=== PATIENT | male | born 1965 | race Caucasian/White ===

== ENCOUNTER 2022-05-25 13:54 | Observation (INO) | payer SELFPAY ==
--- OUTSIDE RECORDS SUMMARY | 2022-05-25 13:58 | XMS REPORT | Continuity of Care Document ---
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 = Glucose Lvl) 91 70-99 [facility]2017-08-09 19:57:00 Test Item Value Reference Range Interpretation Comments BUN (test code = BUN) 17 7-22 [facility]2017-08-09 19:57:00 Test Item Value Reference Range Interpretation Comments Potassium Lvl (test code = Potassium 4.1 3.5-5.1 Lvl) [facility]2017-08-09 19:57:00 Test Item Value Reference Range Interpretation Comments CO2 (test code = CO2) 27 24-32 [facility]2017-08-09 19:57:00 Test Item Value Reference Range Interpretation Comments Chloride Lvl (test code = Chloride Lvl) 102 95-109 [facility]2017-08-09 19:57:00 Test Item Value Reference Range Interpretation Comments Calcium Lvl (test code = Calcium Lvl) 8.5 8.5-10.5 [facility]2017-08-09 19:57:00 Test Item Value Reference Range Interpretation Comments AGAP (test code = AGAP) 13.1 10.0-20.0 [facility]SH6905[facility]50-12 09:43:00 Test Item Value Reference Range Interpretation Comments Segs-Bands # (test code = Segs-Bands #) 10.1 1.5-8.1 [facility]TpaehfiCNQPFAWCKP9036-26-59 09:43:00 Test Item Value Reference Range Interpretation Comments Lymphocytes (test code = Lymphocytes) 17.7 20.0-40.0 [facility] AustinXsylsdsBWVMAEZVKT1524-48-70 09:43:00 Test Item Value Reference Range Interpretation Comments Segs (test code = Segs) 71.6 45.0-75.0 [facility] AustinFilffsbKHAOBWPSJN7749-37-08 09:43:00 Test Item Value Reference Range Interpretation Comments MPV (test code = MPV) 8.4 7.4-10.4 [facility] AustinRlrbtjkNPZVLILMSV6511-18-75 09:43:00 Test Item Value Reference Range Interpretation Comments Platelet (test code = Platelet) 211 133-450 [facility] AustinCobiygiHUEOTHFWKL0883-83-51 09:43:00 Test Item Value Reference Range Interpretation Comments WBC (test code = WBC) 14.1 3.7-10.4 [facility] AustinSuusiriCKXIRGMRLF2708-09-97 09:43:00 Test Item Value Reference Range Interpretation Comments RBC (test code = RBC) 4.43 4.70-6.10 [facility] AustinPinmiqhIMOQBUVTHX2221-15-60 09:43:00 Test Item Value Reference Range Interpretation Comments Hgb (test code = Hgb) 13.3 14.0-18.0 [facility] AustinRhbdepeTTXMMIIRNQ5491-32-10 09:43:00 Test Item Value Reference Range Interpretation Comments MCV (test code = MCV) 90.8 80.0-94.0 [facility] AustinGrrywhpKFWZLMZHQY3255-70-95 09:43:00 Test Item Value Reference Range Interpretation Comments MCHC (test code = MCHC) 33.1 32.0-36.0 [facility] AustinDtyebcgSWFTDCZBRS4381-95-37 09:43:00 Test Item Value Reference Range Interpretation Comments MCH (test code = MCH) 30.0 pg 27.0-31.0 [facility] AustinQyascetGUTGHOXAIY2480-85-00 09:43:00 Test Item Value Reference Range Interpretation Comments RDW (test code = RDW) 14.6 11.5-14.5 [facility] AustinCknvsoyRANWSMTTUQ8438-49-40 09:43:00 Test Item Value Reference Range Interpretation Comments Hct (test code = Hct) 40.2 42.0-54.0 [facility]2017-08-09 09:43:00 Test Item Value Reference Range Interpretation Comments eGFR (test code = eGFR) 53 [facility]2017-08-09 09:43:00 Test Item Value Reference Range Interpretation Comments Glucose Lvl (test code = Glucose Lvl) 116 70-99 [facility]2017-08-09 09:43:00 Test Item Value Reference Range Interpretation Comments BUN (test code = BUN) 18 7-22 [facility]2017-08-09 09:43:00 Test Item Value Reference Range Interpretation Comments Creatinine Lvl (test code = Creatinine 1.50 0.50-1.40 Lvl) [facility]2017-08-09 09:43:00 Test Item Value Reference Range Interpretation Comments Potassium Lvl (test code = Potassium 3.9 3.5-5.1 Lvl) [facility]2017-08-09 09:43:00 Test Item Value Reference Range Interpretation Comments Sodium Lvl (test code = Sodium Lvl) 137 135-145 [facility]2017-08-09 09:43:00 Test Item Value Reference Range Interpretation Comments Calcium Lvl (test code = Calcium Lvl) 7.9 8.5-10.5 [facility]2017-08-09 09:43:00 Test Item Value Reference Range Interpretation Comments CO2 (test code = CO2) 24 24-32 [facility]2017-08-09 09:43:00 Test Item Value Reference Range Interpretation Comments Chloride Lvl (test code = Chloride Lvl) 104 95-109 [facility]2017-08-09 09:43:00 Test Item Value Reference Range Interpretation Comments AGAP (test code = AGAP) 12.9 10.0-20.0 [facility] Aust[id number] 09:43:00 Test Item Value Reference Range Interpretation Comments Basophils # (test code 0.1 See_Comment [Aut omated message] The = Basophils #) system which generated this result tra nsmitted reference range : <=0.2. The reference r mary was not used to int erpret this result as normal/abnormal . [facility] AustinBbilhayWMPJXFVEES5568-25-42 09:43:00 Test Item Value Reference Range Interpretation Comments Monocytes # (test code 1.2 See_Comment [Aut omated message] The = Monocytes #) system which generated this result tra nsmitted reference range : <=0.8. The reference r mary was not used to int erpret this result as normal/abnormal . [facility] AustinClxalcnYOYULWQOBK1335-72-18 09:43:00 Test Item Value Reference Range Interpretation Comments Eosinophils # (test code 0.2 See_Comment [A utomated message] The = Eosinophils #) system whic h generated this result tra nsmitted reference range : <=0.5. The reference r mary was not used to int erpret this result as normal/abnormal . [facility] AustinGwysdydNTLOXNTOLF9719-27-79 09:43:00 Test Item Value Reference Range Interpretation Comments Lymphocytes # (test code = Lymphocytes 2.5 1.0-5.5 #) [facility] AustinJvjosnaGQIGSLGTXM8294-71-01 09:43:00 Test Item Value Reference Range Interpretation Comments Monocytes (test code = Monocytes) 8.7 2.0-12.0 [facility] AustinTngrrwsJDQDGLREIP5138-88-29 09:43:00 Test Item Value Reference Range Interpretation Comments Eosinophils (test code = 1.6 See_Comment [A utomated message] The Eosinophils) system which ge nerated this result tra nsmitted reference range : <=4.0. The reference r mary was not used to int erpret this result as normal/abnormal . [facility] AustinNvveuscGTXXXWGMRT7103-06-23 09:43:00 Test Item Value Reference Range Interpretation Comments Basophils (test code = 0.4 See_Comment [Aut omated message] The Basophils) system which ge nerated this result tra nsmitted reference range : <=1.0. The reference r mary was not used to int erpret this result as normal/abnormal . [facility]
[2022-05-25 14:14] LABS: Absolute Lymphocytes (CBC) 1.3 K/uL (0.7-4.9); Lymphocytes % 7.4 % (15.3-44.8); MPV 8.3 fL (7.6-11.3); RBC Red Blood Cell Count 5.98 M/uL (4.33-5.43)
[2022-05-25 14:32] LABS: Albumin 4.6 g/dL (3.4-5.0); Bilirubin Total 1.1 mg/dL (0.2-1.0); Magnesium 2.1 mg/dL (1.6-2.4); Potassium 3.9 mmol/L (3.5-5.1); Protein, Total 8.8 g/dL (6.4-8.2); Troponin High Sensitivity 32.1 pg/mL (<58.9)
--- NOTE | 2022-05-25 14:47 | RAD REPORT ---
EXAM DESCRIPTION: RAD - Chest Single View - 05/25/2022 2:35 pm CLINICAL HISTORY: CHEST PAIN Chest pain. COMPARISON: No comparisons FINDINGS: Portable technique limits examination quality. Mild pulmonary edema. The heart is mildly prominent size. No displaced fractures. IMPRESSION: Mild CHF.
--- NOTE | 2022-05-25 15:05 | ER ---
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 Coronavirus screen: At this time, the client does not indicate any symptoms associated with coronavirus-19. Ebola Screen: No symptoms or risks identified at this time. Initial Sepsis Screen: Does the patient meet any 2 criteria? No. Patient's initial sepsis screen is negative. Does the patient have a suspected source of infection? No. Patient's initial sepsis screen is negative. Risk Assessment: Do you want to hurt yourself or someone else? Patient reports no desire to harm self or others. Onset of symptoms was May 25, 2022 at 01:00. 14:06 Method Of Arrival: Ambulatory [facility] 14:06 Acuity: AJ 2 jl7 Historical: - Allergies: 14:08 No Known Allergies; jl7 - Home Meds: 14:08 None [Active]; jl7 - PMHx: 14:08 Cerebrovascular accident; Leaky aorta; jl7 - PSHx: 14:08 knee-Right; jl7 - Immunization history:: Client reports having NOT received the Covid vaccine. - Social history:: Smoking status: Patient denies any tobacco usage or history of. Screenin:10 [facility] ED Fall Risk Assessment (Adult) History of falling in the last 3 months, kc6 including since admission No falls in past 3 months (0 pts) Confusion or Disorientation No (0 pts) Intoxicated or Sedated No (0 pts) Impaired Gait No (0 pts) Mobility Assist Device Used No (0 pt) Altered Elimination No (0 pt) Score/Fall Risk Level 0 - 2 = Low Risk. Abuse screen: Denies threats or abuse. Denies injuries from another. Nutritional screening: On. Tuberculosis screening: No symptoms or risk factors identified. 14:43 Fall Risk No fall in past 12 months (0 pts). ld1 Assessment: 14:43 Reassessment: Patient appears in no apparent distress at this time. See triage ld1 assessment. General: Appears in no apparent distress. comfortable, Behavior is calm, cooperative, appropriate for age. Pain: Complains of pain in left breast Pain does not radiate. Pain currently is 6 out of 10 on a pain scale. Quality of pain is described as throbbing, Pain began suddenly. Neuro: Level of Consciousness is awake, alert, obeys commands, Oriented to person, place, time, situation. Cardiovascular: Capillary refill < 3 seconds Patient's skin is warm and dry. Rhythm is sinus tachycardia. Respiratory: Airway is patent Respiratory effort is even, unlabored. GI: Abdomen is flat, non-distended. : No signs and/or symptoms were reported regarding the genitourinary system. EENT: No signs and/or symptoms were reported regarding the EENT system. Derm: No signs and/or symptoms reported regarding the dermatologic system. Musculoskeletal: No signs and/or symptoms reported regarding the musculoskeletal system. 16:00 Reassessment: Patient appears in no apparent distress at this time. Patient and/or ld1 family updated on plan of care and expected duration. Pain level reassessed. Patient is alert, oriented x 3, equal unlabored respirations, skin warm/dry/pink. Patient states symptoms have not improved. 18:22 Reassessment: Patient appears in no apparent distress at this time. Patient and/or ld1 family updated on plan of care and expected duration. Pain level reassessed. Patient is alert, oriented x 3, equal unlabored respirations, skin warm/dry/pink. 19:16 Reassessment: Patient appears in no apparent distress at this time. Patient and/or jb4 family updated on plan of care and expected duration. Pain level reassessed. Patient is alert, oriented x 3, equal unlabored respirations, skin warm/dry/pink. Vital Signs: 14:06 BP 207 / 93; Pulse 120; Resp 19; Temp 98.9(O); Pulse Ox 99% on R/A; Weight 102.06 kg; jl7 Height 5 ft. 7 in. (170.18 cm); Pain 3/10; 14:10 BP 178 / 98; Pulse 104; Resp 28 S; Pulse Ox 100% on R/A; kc6 14:43 BP 173 / 79; Pulse 104; Resp 18; Pulse Ox 100% on R/A; Pain 6/10; ld1 16:20 BP 165 / 92; Pulse 111; Resp 22; Pulse Ox 94% on R/A; ld1 18:22 BP 154 / 79; Pulse 101; Resp 18; Pulse Ox 96% on R/A; ld1 19:15 BP 148 / 79; Pulse 98; Resp 19; Pulse Ox 97% on R/A; jb4 14:06 Body Mass Index 35.24 (102.06 kg, 170.18 cm) jl7 ED Course: 13:54 Patient arrived in ED. rg4 13:56 Jenny[facility] Daley [facility]C [facility] kb 13:56 Elliot Connors DO is Attending Physician. kb 14:08 Triage completed. jl7 14:08 Initial lab(s) drawn, by me, sent to lab. EKG done, by ED staff, reviewed by Jennyfer BRAND. Inserted saline lock: 20 gauge in right antecubital area, using aseptic technique. Blood collected. 14:08 Arm band placed on right wrist. jl7 14:12 Patient has correct armband on for positive identification. Placed in gown. Bed in low kc6 position. Call light in reach. Side rails up X2. Client placed on continuous cardiac and pulse oximetry monitoring. NIBP monitoring applied. athletic monitor on. 14:37 XRAY Chest (1 view) In Process Unspecified. EDMS 14:43 Micaela Nichols, RN is Primary Nurse. ld1 14:43 No provider procedures requiring assistance completed. ld1 15:04 Ced Harvey MD is Hospitalizing Provider. kb 15:32 SARS RAPID Sent. ld1 Administered Medications: 15:37 Drug: morphine 4 mg Route: IVP; Infused Over: 4 mins; Site: right antecubital; ld1 15:37 Drug: Zofran (Ondansetron) 4 mg Route: IVP; Site: right antecubital; ld1 15:37 Drug: Lasix (furosemide) 20 mg Route: IVP; Site: right antecubital; ld1 Medication: 14:12 VIS not applicable for this client. kc6 Outcome: 15:05 Decision to Hospitalize by Provider. kb 19:50 Patient left the ED. jb4 Signatures: Dispatcher [employer] EDMS Jennyfer Daley FNP-C [facility]-CkLashon Lopez rg4 Melo Pealez, RN RN jb4 Alberto Theodore, RN RN jl7 Micaela Nichols RN RN ld1 Robina Hinson RN RN kc6 Corrections: (The following items were deleted from the chart) 14:10 14:08 PMHx: Myocardial infarction; ricki7 jl7
--- NOTE | 2022-05-25 15:06 | EDPHYS ---
Physician Documentation [facility] Name: Kyree Freeman Age: 56 yrs Sex: Male : 1965 Arrival Date: 05/25/2022 Time: 13:54 Bed 8 Private MD: ED Physician Elliot Connors HPI: 05/25 14:21 This 56 yrs old Male presents to ER via Ambulatory with complaints of Chest Pain. kb 14:21 The patient or guardian reports chest pain that is located primarily in the anterior kb chest wall, left. Onset: this morning, at 01:00. The pain does not radiate. Associated signs and symptoms: Pertinent positives: shortness of breath. The chest pain is described as aching. Duration: The patient or guardian reports a single episode, that is still ongoing. Modifying factors: The symptoms are alleviated by nothing. the symptoms are aggravated by nothing. Severity of pain: At its worst the pain was moderate in the emergency department the pain is unchanged. The patient has not experienced similar symptoms in the past. The patient has not recently seen a physician. Pt reports left chest pain behind left breast that started at 0100. states the pain is better, but persists. Reports pain is worse with deep inspiration. States he feels short of breath, but only because he can't take a deep breath without having pain. Historical: - Allergies: 14:08 No Known Allergies; jl7 - Home Meds: 14:08 None [Active]; jl7 - PMHx: 14:08 Cerebrovascular accident; Leaky aorta; jl7 - PSHx: 14:08 knee-Right; jl7 - Immunization history:: Client reports having NOT received the Covid vaccine. - Social history:: Smoking status: Patient denies any tobacco usage or history of. ROS: 14:20 Constitutional: Negative for fever, chills, and weight loss. kb 14:20 Cardiovascular: Positive for chest pain, Negative for edema, orthopnea, palpitations, paroxysmal nocturnal dyspnea. 14:20 Respiratory: Positive for shortness of breath. 14:20 All other systems are negative. Exam: 14:20 Constitutional: This is a well developed, well nourished patient who is awake, alert, kb and in no acute distress. Head/Face: Normocephalic, atraumatic. ENT: Moist Mucous membranes Cardiovascular: Regular rate and rhythm with a normal S1 and S2. No gallops, murmurs, or rubs. No pulse deficits. Respiratory: Respirations even and unlabored. No increased work of breathing. Talking in full sentences Abdomen/GI: Soft, non-tender. No distention Skin: Warm, dry with normal turgor. Normal color. MS/ Extremity: Pulses equal, no cyanosis. Neurovascular intact. Full, normal range of motion. Neuro: Awake and alert, GCS 15, oriented to person, place, time, and situation. Moves all extremities. Normal gait. Psych: Awake, alert, with orientation to person, place and time. Behavior, mood, and affect are within normal limits. 14:20 Chest/axilla: Inspection: normal, Palpation: tenderness, that is mild, of the left breast, that partially reproduces the patient's complaints. 14:20 ECG was reviewed by the Attending Physician. Vital Signs: 14:06 BP 207 / 93; Pulse 120; Resp 19; Temp 98.9(O); Pulse Ox 99% on R/A; Weight 102.06 kg; jl7 Height 5 ft. 7 in. (170.18 cm); Pain 3/10; 14:10 BP 178 / 98; Pulse 104; Resp 28 S; Pulse Ox 100% on R/A; kc6 14:43 BP 173 / 79; Pulse 104; Resp 18; Pulse Ox 100% on R/A; Pain 6/10; ld1 16:20 BP 165 / 92; Pulse 111; Resp 22; Pulse Ox 94% on R/A; ld1 18:22 BP 154 / 79; Pulse 101; Resp 18; Pulse Ox 96% on R/A; ld1 19:15 BP 148 / 79; Pulse 98; Resp 19; Pulse Ox 97% on R/A; jb4 14:06 Body Mass Index 35.24 (102.06 kg, 170.18 cm) jl7 MDM: 13:56 Patient medically screened. kb 14:21 Data reviewed: vital signs, nurses notes. Data interpreted: Pulse oximetry: on room air kb is 100 %. Interpretation: normal. 15:04 Counseling: I had a detailed discussion with the patient and/or guardian regarding: the kb historical points, exam findings, and any diagnostic results supporting the discharge/admit diagnosis, lab results, radiology results, the need for further work-up and treatment in the hospital. ED course: HEART score 3. Yesenia accepts pt for admission under Dr Harvey. 05/25 14:00 Order name: CBC with Diff; Complete Time: 14:22 kb 05/25 14:00 Order name: D-Dimer; Complete Time: 14:22 kb 05/25 14:00 Order name: Magnesium; Complete Time: 14:33 kb 05/25 14:00 Order name: NT PRO-BNP; Complete Time: 14:33 kb 05/25 14:00 Order name: Troponin HS; Complete Time: 14:33 kb 05/25 14:00 Order name: CMP; Complete Time: 14:33 kb 05/25 14:00 Order name: XRAY Chest (1 view); Complete Time: 14:51 kb 05/25 15:20 Order name: SARS RAPID ld1 05/25 19:11 Order name: Hemoglobin A1c EDMS 05/25 19:13 Order name: Phosphorus EDMS 05/25 19:13 Order name: Lipid Profile EDMS 05/25 19:13 Order name: T4 Free EDMS 05/25 19:13 Order name: Magnesium EDMS 05/25 19:13 Order name: Thyroid Stimulating Hormone EDMS 05/25 14:00 Order name: EKG; Complete Time: 14:01 kb 05/25 14:00 Order name: Cardiac monitoring; Complete Time: 14:05 kb 05/25 14:00 Order name: EKG - Nurse/Tech; Complete Time: 14:05 kb 05/25 14:00 Order name: IV Saline Lock; Complete Time: 14:05 kb 05/25 14:00 Order name: Labs collected and sent; Complete Time: 14:05 kb 05/25 14:00 Order name: O2 Per Protocol; Complete Time: 14:05 kb 05/25 14:00 Order name: O2 Sat Monitoring; Complete Time: 14:05 kb EC:20 Rate is 109 beats/min. Rhythm is regular. QRS [place] is Normal. MT interval is normal at kb 136 msec. QRS interval is normal at 90 msec. QT interval is normal at 428 msec. Administered Medications: 15:37 Drug: morphine 4 mg Route: IVP; Infused Over: 4 mins; Site: right antecubital; ld1 15:37 Drug: Zofran (Ondansetron) 4 mg Route: IVP; Site: right antecubital; ld1 15:37 Drug: Lasix (furosemide) 20 mg Route: IVP; Site: right antecubital; ld1 Disposition: 14:00 PA/TAG PRESS OPERATOR's history reviewed, patient interviewed, and examined. HPI: 56-year-old male ms3 presents for left-sided chest pain that began at 1 AM. My personal exam of patient reveals: On exam patient is alert and oriented x4, in no apparent distress, nontoxic-appearing. Heart rate is tachycardic and regular. Lungs are clear to auscultation bilaterally. Abdomen is nontender to palpation. Patient's left chest is sore to palpation, does not recreate patient's pain. Patient skin is without diaphoresis or rashes. I agree with assessment and care plan and confirm the diagnosis (es) above. 16:18 Co-signature as Attending Physician, Elliot Connors DO. ms3 Disposition Summary: 05/25/22 15:05 Hospitalization Ordered Hospitalization Status: Observation kb Provider: Ced Harvey Location: Telemetry/MedSurg (observation) kb Condition: Stable kb Problem: new kb Symptoms: are unchanged kb Bed/Room Type: Standard Room Assignment: 230(05/25/22 18:31) dw Diagnosis - Unspecified combined systolic (congestive) and diastolic (congestive) heart failure kb - new onset - Chest pain, unspecified kb Forms: - Medication Reconciliation Form kb - SBAR form kb Signatures: Dispatcher [employer] Jennyfer Holman FNP-Clemente SOUZA-Mariely Mirza RN RN dw Leal, Jahala RN Elliot Osorio DO DO ms3 Micaela Nichols RN RN ld1 Corrections: (The following items were deleted from the chart) 14:10 14:08 PMHx: Myocardial infarction; jl7 jl7 18:31 15:05 kb dw
[2022-05-25] MEDS ORDERED: FUROSEMIDE 20 MG/ 2ML VIAL ONE (15:30)
[2022-05-25] MEDS ORDERED: MORPHINE 4 MG/ML SYR ONE (15:31)
[2022-05-25] MEDS ORDERED: ONDANSETRON 4 MG/2 ML VIAL ONE (15:31)
[2022-05-25 15:53] LABS: SARS-CoV-2 Antigen Rapid Res Negative (Negative)
[2022-05-25] MEDS ORDERED: ACETAMINOPHEN 325 MG TABLET PO PRN (18:07)
[2022-05-25] MEDS ORDERED: ONDANSETRON 4 MG/2 ML VIAL IV PRN (18:15)
--- NOTE | 2022-05-25 18:17 | P.HP ---
Patient History Date of Service: 05/25/22 Physical Examination - Studies Laboratory Data (last 24 hrs) 05/25/22 14:05: Sodium 134 L, Potassium 3.9, BUN 11, Creatinine 1.38 H, Glucose 113 H, Magnesium 2.1, Total Bilirubin 1.1 H, AST 11 L, ALT 22, Alkaline Phosphatase 99 05/25/22 14:05: WBC 17.20 H, Hgb 17.5, Hct 52.0 H, Plt Count 269 Assessment and Plan - Advance Directives Does patient have a Living Will: No Does patient have a Durable POA for Healthcare: No
--- NOTE | 2022-05-25 18:23 | P.HP ---
Certification for Inpatient Patient admitted to: Observation With expected LOS: <2 Midnights Patient will require the following post-hospital care: None Practitioner: I am a practitioner with admitting privileges, knowledge of patient current condition, hospital course, and medical plan of care. Services: Services provided to patient in accordance with Admission requirements found in Title 42 Section 412.3 of the Code of Federal Regulations <Les Conte - Last Filed: 05/25/22 21:23> Patient History Date of Service: 05/25/22 Reason for admission: Chest pain History of Present Illness: Patient is a 56-year-old male with a past medical history significant for CVA, hypertension with right-sided weakness who presents with complaint of chest pain that woke him up from sleep this morning. Patient indicated that chest pain is located in the left chest wall. Patient rated pain as 10/10 in severity and described pain as pressure in quality. Patient indicated that chest pain radiates to his left arm and that chest pain has been constant. Patient denies any other signs or symptoms. Symptoms are aggravated or relieved by nothing. Patient decided to present to the hospital due to worsening symptoms. - Past Medical/Surgical History -: CVA -: Obesity -: Hypertension Past Surgical History: Reviewed- Non-Contributory - Family History Father -: Heart disease, Stroke Notes: CHF Mother Notes: lymphoma - Social History Smoking Status: Unknown if ever smoked Alcohol use: No CD- Drugs: No Caffeine use: Yes Place of Residence: Home <Les Conte - Last Filed: 05/25/22 21:23> Date of Service: 05/26/22 <Ced Harvey - Last Filed: 05/26/22 19:17> Allergies No Known Allergies Allergy (Unverified 05/25/22 20:08) Home Medications: NK [No Home Meds] 05/25/22 Review of Systems General: Unremarkable Eyes: Unremarkable ENT: Unremarkable Respiratory: Unremarkable Cardiovascular: Chest Pain Gastrointestinal: Unremarkable Genitourinary: Unremarkable Musculoskeletal: Arm Pain Integumentary: Unremarkable Neurological: Unremarkable Lymphatics: Unremarkable <Les Conte - Last Filed: 05/25/22 21:23> Physical Examination - Physical Exam General: Alert, In no apparent distress, Oriented x3, Cooperative HEENT: Atraumatic, PERRLA, Mucous membr. moist/pink, EOMI, Sclerae nonicteric Neck: Supple, 2+ carotid pulse no bruit, No LAD, Without JVD or thyroid abnormality Respiratory: Clear to auscultation bilaterally, Diminished Cardiovascular: No edema, Regular rate/rhythm, Normal S1 S2 Capillary refill: <2 Seconds Gastrointestinal: Normal bowel sounds, Non-distended, No tenderness Musculoskeletal: No clubbing, No swelling, No tenderness Integumentary: No rashes, No significant lesion, No tenderness/swelling Neurological: Normal speech, Normal tone, Normal affect Lymphatics: No axilla or inguinal lymphadenopathy - Studies Laboratory Data (last 24 hrs) 05/25/22 14:05: Sodium 134 L, Potassium 3.9, BUN 11, Creatinine 1.38 H, Glucose 113 H, Magnesium 2.1, Total Bilirubin 1.1 H, AST 11 L, ALT 22, Alkaline Phosphatase 99 05/25/22 14:05: WBC 17.20 H, Hgb 17.5, Hct 52.0 H, Plt Count 269 <Les Conte - Last Filed: 05/25/22 21:23> Assessment and Plan - Plan --Chest pain. To rule out ACS. Will trend troponin--negative so far. Echocardiogram pending to assess cardiac structures and functions. Telemetry to monitor for any significant arrhythmia period Cardiology consulted. Will await further recommendations. -- Suspected systolic or diastolic CHF. BNP elevated--1000. Echocardiogram pending to assess LV\valvular function and wall motion. Printing Press Operator Apprentice on board. Daily weight and strict I/O. Continue diuresis with Lasix. --Acute pain. We will manage pain with current pain medication regimen. --History of CVA with right-sided weakness. Continue aspirin. --Hypertension. Poorly controlled. Patient placed on low-dose beta-tanisha. We will continue to monitor blood pressure levels. --Obesity. Likely secondary to excess calories intake. Patient counseled on weight reduction, diet and exercise therapy. -- CKD 2. Baseline functions unknown. We will continue to monitor renal functions. --DVT prophylaxis with heparin subQ. Discharge Plan: Home Plan to discharge in: 48 Hours - Advance Directives Does patient have a Living Will: No Does patient have a Durable POA for Healthcare: No - Code Status/Comfort Care Code Status Assessed: Yes Physician Review: Patient Assessed, Agree with Above Assessment and Plan Critical Care: No <Les Conte - Last Filed: 05/25/22 21:23> Physician Review: Patient Assessed, Agree with Above Assessment and Plan <Ced Harvey - Last Filed: 05/26/22 19:17>
[2022-05-25] MEDS ORDERED: ASPIRIN 81 MG CHEWABLE TABLET PO ONE (19:00)
[2022-05-25 19:12] LABS: Phosphorus 2.7 mg/dL (2.5-4.9); Thyroid Stimulating Hormone 0.626 uIU/mL (0.358-3.740)
[2022-05-25 20:08] VITALS: BMI 35.6
[2022-05-25 21:29] LABS: Specific Gravity 1.015 (1.005-1.030); Urine Bacteria <20 /HPF (<20); Urine Bilirubin NEGATIVE (Negative); Urine Blood 3+ (Negative); Urine Clarity Clear (Clear); Urine Color Yellow (Yellow); Urine Crystals Unidentified Few /HPF (None Seen); Urine Glucose NEGATIVE (Negative); Urine Mucus 3+ /HPF (None Seen); Urine Protein 1+ (Negative); Urine Urobilinogen Normal (Normal)
[2022-05-25] MEDS: HEPARIN 5000 UNIT/ML 1 ML VIAL SQ SCH (21:49)
[2022-05-25] MEDS: HYDROCODONE/APAP 5/325 MG TAB PO PRN (21:49)
[2022-05-26] MEDS: METOPROLOL TAR 25 MG TAB PO SCH ×2 (05:36→17:26)
[2022-05-26 06:23] LABS: Albumin 3.7 g/dL (3.4-5.0); Bilirubin Total 1.2 mg/dL (0.2-1.0); Potassium 3.6 mmol/L (3.5-5.1); Protein, Total 7.5 g/dL (6.4-8.2)
[2022-05-26 07:03] LABS: Absolute Lymphocytes (CBC) 2.9 K/uL (0.7-4.9); Hematocrit 47.6 % (39.6-49.0); Lymphocytes % 24.9 % (15.3-44.8); MCV 88.3 fL (80-100); MPV 8.6 fL (7.6-11.3); RBC Red Blood Cell Count 5.39 M/uL (4.33-5.43)
[2022-05-26] MEDS ORDERED: INFLUENZA VACCINE (for 6+ mo) 0.5 ML DOSE IMVAC ONE (08:00)
[2022-05-26] MEDS: HEPARIN 5000 UNIT/ML 1 ML VIAL SQ SCH ×2 (08:39→21:02)
[2022-05-26] MEDS: ASPIRIN 81 MG CHEWABLE TABLET PO SCH (08:39)
[2022-05-26] MEDS ORDERED: FUROSEMIDE 40 MG/4 ML VIAL IV SCH (09:00)
--- NOTE | 2022-05-26 14:00 | EKG ---
Test Date: 2022-05-25 Test Time: 14:02:29 Hand Spinner: IDALIA MEASUREMENT RESULTS: Intervals: Rate: 109 SD: 136 QRSD: 90 QT: 318 QTc: 428 [place] [employer]: P: 50 SD: 136 QRS: 26 T: 104 INTERPRETIVE STATEMENTS: Sinus tachycardia Possible Left atrial enlargement T wave abnormality, consider lateral ischemia Abnormal ECG No previous ECG available for comparison Electronically Signed On 05-26-22 13:59:23 LEAN COACH by Murtaza Barnhart
--- NOTE | 2022-05-26 14:36 | ECHO ---
HEIGHT: 5 ft 8 in WEIGHT: 234 lb 8 oz DATE OF STUDY: 05/26/[address]: Les Conte 2-DIMENSIONAL: YES M.MODE: YES DOPPLER: YES COLOR FLOW: YES TDS: NO PORTABLE: YES DEFINITY: NO BUBBLE STUDY: NO DIAGNOSIS: CHEST PAIN, ELEVATED BNP CARDIAC HISTORY: CATHERIZATION: NO SURGERY: NO PROSTHETIC VALVE: NO PACEMAKER: NO MEASUREMENTS (cm) DIASTOLIC (NORMALS) SYSTOLIC (NORMALS) IVSd 1.3 (0.6-1.2) LA Diam 3.1 (1.9-4.0) LVEF 55% LVIDd 2.4 (3.5-5.7) LVIDs 1.7 (2.0-3.5) %FS 27% LVPWd 1.4 (0.6-1.2) Ao Diam 3.1 (2.0-3.7) 2 DIMENSIONAL ASSESSMENT: RIGHT ATRIUM: NORMAL LEFT ATRIUM: NORMAL RIGHT VENTRICLE: NORMAL LEFT VENTRICLE: NORMAL TRICUSPID VALVE: MITRAL VALVE: NORMAL PULMONIC VALVE: AORTIC VALVE: CALCIFIED, NO PERICARDIAL EFFUSION: NONE AORTIC ROOT: NORMAL LEFT VENTRICULAR WALL MOTION: UNABLE TO EVALUATE DUE TO POOR WINDOWS. DOPPLER/COLOR FLOW: MILD AORTIC REGURGITATION. COMMENTS: 1. NORMAL LEFT VENTRICULAR EJECTION FRACTION 55-60%. 2. POOR WINDOWS. 3. CALCIFIED AORTIC VALVE WITH MILD AORTIC REGURGITATION WITH NO AORTIC STENOSIS. 4. TRACE TRICUSPID REGURGITATION. TECHNOLOGIST: Stewart MIDDLETON
--- NOTE | 2022-05-26 19:35 | P.PN ---
Subjective Date of Service: 05/26/22 Chief Complaint: Chest pain No acute events overnight. He reports persistent shortness of breath. He reports orthopnea and lower extremity edema. He denies any chest pain or palpitations. Review of Systems 10-point ROS is otherwise unremarkable Respiratory: Shortness of Breath Cardiovascular: Orthopnea, Edema Physical Examination - Vital Signs Temperature: 98.1 F Blood Pressure: 150/69 Pulse: 78 Respirations: 16 Pulse Ox (%): 95 - Physical Exam General: Alert, In no apparent distress, Oriented x3 HEENT: Atraumatic, Mucous membr. moist/pink, EOMI, Sclerae nonicteric Neck: JVD distended (minimally) Respiratory: Crackles/rales (faint bibasilar) Cardiovascular: Normal pulses, Regular rate/rhythm, No gallops, No rubs, No murmurs, Edema (1+ BLE) Gastrointestinal: Normal bowel sounds, Soft and benign, Non-distended, No tenderness, No rebound, No guarding Musculoskeletal: No clubbing Integumentary: No rashes Neurological: Normal speech, Cranial nerves 3-12 intact, Normal affect Assessment And Plan - Plan # Acute on Chronic Decompensated Diastolic Congestive Heart Failure with Preserved Ejection Fraction - Consult Cardiology and spoke with Dr. Barnhart - recommendations appreciated - Recommended an additional day of IV furosemide - NT-Pro BNP = 1000 - Transthoracic echocardiogram = "1. normal left ventricular ejection fraction 55-60%. 2. poor windows. 3. calcified aortic valve with mild aortic regurgitation with no aortic stenosis. 4. trace tricuspid regurgitation" - Continue home metoprolol - Daily weights - Strict I/O - Cardiac diet, 1.5 L fluid restriction, 2 g Na restriction # Hypertensive Urgency - Presenting blood pressure was 207/93, which has now improved - Continue home metoprolol + PRN hydralazine # Chest Pain, atypical # History of Cerebrovascular Accident with Residual Right-Sided Deficits - Evaluation thus far: - EKG: without reported STEMI criteria, trend - Serial troponin: 32.1 -> 31.3 -> 42.0 - Transthoracic echocardiogram = "1. normal left ventricular ejection fractio n 55-60%. 2. poor windows. 3. calcified aortic valve with mild aortic regurgitation with no aortic stenosis. 4. trace tricuspid regurgitation" - Chest x-ray = "mild CHF" - D-dimer = 392 - Management plan: - Consult Cardiology and spoke with Dr. Barnhart - recommendations appreciated - Plan for outpatient cardiac stress test - Continue aspirin, metoprolol - If cardiac ischemia confirmed, plan to start MARIANN-inhibitor/ARB and statin as tolerated # Obesity - BMI 35.7 kg/m2 - Lifestyle modifications Ced Harvey M.D.
--- NOTE | 2022-05-26 19:38 | CON ---
Date of Consultation: 05/26/2022 Reason For Consultation: Chest pain. History Of Present Illness: This 56-year-old male with history of CVA, hypertension, and some mild r ight-sided weakness presented with chest pain. It is retrosternal and sharp in nature, was at rest a nd it went up to his left arm and completely resolved and he had no further symptoms. No known histo ry of cardiac disease. Past Medical History: As outlined above in HPI. Medications: Refer to reconciliation sheet for detailed list. Allergies: NO KNOWN DRUG ALLERGIES. Family History: No premature coronary artery disease or cancer. Social History: Does not smoke or drink. Does not use any drugs. Review of Systems: All systems reviewed and they were negative except as mentioned in HPI. Physical Examination: Vital Signs: Reviewed. Head and Neck: Pupils are equal and reactive to light. Intact eye movements. No JVD. No cervical lymphadenopathy. Neck is supple. Thyroid is not enlarged. Lungs: Clear to auscultation bilaterally. No rhonchi, wheezing, or crackles. No accessory muscle u se. Heart: Regular rate and rhythm. No extra sounds. Abdomen: Soft, nontender. Bowel sounds positive. No organomegaly. No masses or hernia. No rigidi ty or rebound. Extremities: No edema, clubbing, or cyanosis. Intact pulses. Skin: No rashes. Neuro: Alert, awake, and oriented x3. No acute focal deficits appreciated. Investigations: BUN 17, creatinine 1.32. NT-proBNP was 1000 on admission. Troponins are negative. Assessment/recommendations: 1.Chest pain. Cardiac enzymes are negative. Echo was normal with no wall motion abnormalities. Fr om Cardiology standpoint, patient can be released to follow up as an outpatient. Plan for a stress t est. 2.Elevated NT-proBNP due to mild fluid retention and possible mild diastolic dysfunction. Switch hi m to oral Lasix, anticipation for discharge tomorrow. Cardiology will sign off and plan to see the p atient on outpatient basis. SR/MODL Voice ID: [id number] Report ID: [id number]
[2022-05-26] MEDS: HYDROCODONE/APAP 5/325 MG TAB PO PRN (21:03)
[2022-05-27] MEDS: METOPROLOL TAR 25 MG TAB PO SCH (05:32)
[2022-05-27 06:19] LABS: Potassium 4.2 mmol/L (3.5-5.1)
[2022-05-27] MEDS: ASPIRIN 81 MG CHEWABLE TABLET PO SCH (08:13)
[2022-05-27] MEDS: HEPARIN 5000 UNIT/ML 1 ML VIAL SQ SCH (08:13)
[2022-05-27 08:18] VITALS: BP 121/62
--- NOTE | 2022-05-27 08:23 | P.DS ---
Admission Date: 05/25/22 Discharge Date: 05/27/22 Disposition: ROUTINE DISCHARGE Discharge Condition: GOOD Reason for Admission: Chest pain Consultations: 1. Cardiology Hospital Course: DIAGNOSES: # Acute on Chronic Decompensated Diastolic Congestive Heart Failure with Preserved Ejection Fraction # Hypertensive Urgency # Chest Pain, atypical # History of Cerebrovascular Accident with Residual Right-Sided Deficits # Obesity - BMI 35.7 kg/m2 HOSPITAL COURSE: Mr. Kyree Freeman is a pleasant 56 year old male with a past medical history significant for chronic diastolic congestive heart failure, hypertension, and prior cerebrovascular accident with residual right-sided deficits who was admitted to the [facility] on 05/25/2022 for shortness of breath. He was admitted to the Medicine service. Upon further evaluation, he was found to have an acute on chronic decompensated diastolic congestive heart failure exacerbation. Cardiology was consulted and he was evaluated by Dr. Barnhart. He was treated with IV diuretics, and had significant improvement of his symptoms. Dr. Barnhart has cleared him for discharge home with an outpatient cardiac stress test. On 05/27/2022, he was seen on morning rounds and deemed medically stable for discharge. He was discharged with instructions to schedule follow-up appointments with his PCP and with Cardiology (Dr. Barnhart). He was provided prescriptions for furosemide and metoprolol. He was given the opportunity to ask questions and reported no further questions. Furthermore, all questions were answered to the best of my ability. A copy of this discharge summary will be sent to the above providers to facilitate continuity of care. Today, I personally spent 25 minutes on his case, of which greater than 50% of the time was spent in patient education, counseling, and coordination of care as described above. - Physical Exam General: Alert, In no apparent distress, Oriented x3 HEENT: Atraumatic, Mucous membr. moist/pink, EOMI, Sclerae nonicteric Neck: JVD not distended Respiratory: Clear to auscultation bilaterally, without wheezes, rhonchi, or rales Cardiovascular: Normal pulses, Regular rate/rhythm, No gallops, No rubs, No murmurs, Edema (trace BLE) Gastrointestinal: Normal bowel sounds, Soft and benign, Non-distended, No tenderness, No rebound, No guarding Musculoskeletal: No clubbing Integumentary: No rashes Neurological: Normal speech, Cranial nerves 3-12 intact, Normal affect Vital Signs/Physical Exam: Temp Pulse Resp BP Pulse Ox 97.0 F 63 18 121/62 96 05/27/22 04:00 05/27/22 08:13 05/27/22 04:00 05/27/22 08:13 05/27/22 04:00 Laboratory Data at Discharge: WBC 11.50 K/uL (4.3-10.9) H 05/26/22 05:35 Hgb 15.8 g/dL (13.6-17.9) D 05/26/22 05:35 Hct 47.6 % (39.6-49.0) 05/26/22 05:35 Plt Count 195 K/uL (152-406) D 05/26/22 05:35 Sodium 133 mmol/L (136-145) L 05/27/22 05:31 Potassium 4.2 mmol/L (3.5-5.1) D 05/27/22 05:31 BUN 17 mg/dL (7-18) 05/27/22 05:31 Creatinine 1.27 mg/dL (0.70-1.30) 05/27/22 05:31 Glucose 92 mg/dL (74-106) 05/27/22 05:31 Phosphorus 2.7 mg/dL (2.5-4.9) 05/25/22 14:05 Magnesium 2.0 mg/dL (1.6-2.4) 05/25/22 14:05 Magnesium 2.1 mg/dL (1.6-2.4) 05/25/22 14:05 Total Bilirubin 1.2 mg/dL (0.2-1.0) H 05/26/22 05:35 AST 12 U/L (15-37) L 05/26/22 05:35 ALT 18 U/L (16-61) 05/26/22 05:35 Alkaline Phosphatase 75 U/L (45-117) D 05/26/22 05:35 Triglycerides 78 mg/dL (<150) 05/25/22 14:05 Cholesterol 164 mg/dL (<200) 05/25/22 14:05 HDL Cholesterol 50 mg/dL (40-60) 05/25/22 14:05 Cholesterol/HDL Ratio 3.28 05/25/22 14:05 Home Medications: Furosemide [Lasix] 40 mg PO DAILY #30 tab 05/27/22 RX: Aspirin Chewable [Aspirin Chewable*] 81 mg PO DAILY tab.chew 05/27/22 RX: Metoprolol Tartrate [Lopressor*] 12.5 mg PO BID 6AM 6PM #30 tab 05/27/22 New Medications: Furosemide [Lasix] 40 mg PO DAILY #30 tab RX: Metoprolol Tartrate [Lopressor*] 12.5 mg PO BID 6AM 6PM #30 tab Physician Discharge Instructions: 1. Please call and schedule a follow-up appointment with your PCP in 3-5 days 2. Please call and schedule a follow-up appointment with Cardiology (Dr. Barnhart) in 5-7 days - He will schedule you for a cardiac stress test at his clinic Diet: AHA Activity: Ad stanislaw Followup: NONE,NONE [Primary Care Provider] - Murtaza Barnhart MD [ACTIVE - CAN ADMIT] - Time spent managing pt's care (in minutes): 25
[2022-05-27 08:45] VITALS: TEMP 98.2
[2022-05-27] MEDS ORDERED: FUROSEMIDE 40 MG/4 ML VIAL IV SCH (09:00)
[2022-05-27 10:21] VITALS: O2SAT 98
== END 2022-05-27 10:32 | disposition home or self-care (01) ==
LOC: ER 13:54 → ERHOLD 18:06 → 2ND 19:27
PROVIDERS: ADMIT Internal Medicine; ATTEND Internal Medicine
DX: I50.33 Acute on chronic diastolic (congestive) heart failure (principal); I16.0 Hypertensive urgency; I11.9 Hypertensive heart disease without heart failure; R07.9 Chest pain, unspecified; R79.89 Other specified abnormal findings of blood chemistry; I10 Essential (primary) hypertension; R53.1 Weakness; E66.9 Obesity, unspecified; R31.29 Other microscopic hematuria; N18.2 Chronic kidney disease, stage 2 (mild); Z82.3 Family history of stroke; Z86.73 Personal history of transient ischemic attack (TIA), and cerebral infarction without residual deficits; Z68.35 Body mass index [BMI] 35.0-35.9, adult; Z20.822 Contact with and (suspected) exposure to COVID-19; Z23 Encounter for immunization
CPT/HCPCS: 36415; 71045; 80048; 80053; 80061; 81001; 83036; 83735; 83880; 84100; 84439; 84443; 84484; 85025; 85379; 87040; 87811; 93005; 93306; 96374; 96375; 99284; G0378; J1644; J1940; J2405

== ENCOUNTER 2022-11-03 15:42 | Emergency (ER) | payer OTHER, SELFPAY ==
--- NOTE | 2022-11-03 16:37 | RAD REPORT ---
EXAM DESCRIPTION: RADChest Single View11/03/2022 4:32 pm CLINICAL HISTORY: edema COMPARISON: Chest Single View dated 05/25/2022 TECHNIQUE: Portable AP view of the chest. FINDINGS: The lungs are clear. Mild left basilar atelectasis, stable. Persistent bilateral pleural thickening versus trace effusions. No pneumothorax or sizable effusion. The cardiomediastinal contour s are unchanged. Sequelae of prior median sternotomy again seen. . IMPRESSION: Persistent bilateral pleural thickening versus trace effusions. No other acute cardiopul monary process.
[2022-11-03 17:06] LABS: Absolute Lymphocytes (CBC) 1.7 K/uL (0.7-4.9); Hematocrit 39.4 % (39.6-49.0); Lymphocytes % 10.4 % (15.3-44.8); MCV 88.1 fL (80-100); MPV 7.9 fL (7.6-11.3); RBC Red Blood Cell Count 4.47 M/uL (4.33-5.43)
[2022-11-03 17:07] LABS: Protime INR 1.18
[2022-11-03 17:29] LABS: Troponin High Sensitivity 42.2 pg/mL (<58.9)
[2022-11-03 17:45] LABS: Magnesium 2.6 mg/dL (1.6-2.4); Potassium 4.2 mEq/L (3.5-5.1)
--- NOTE | 2022-11-03 17:55 | RAD REPORT ---
EXAM DESCRIPTION: US - Extrem Venous W Compress Bulmaro - 11/03/2022 5:30 pm CLINICAL HISTORY: Swelling COMPARISON: None. TECHNIQUE: Real-time sonographic evaluation of the bilateral lower extremity deep venous systems was performed. FINDINGS: Hypoechoic filling defects within a noncompressible tributary of the right popliteal vein. Normal compressibility, flow augmentation, phasic flow and spontaneous flow is identified in the rem ainder of the the left and right lower extremity deep venous systems. IMPRESSION: Deep venous thrombosis within a right popliteal vein tributary. Deep venous system throughout the remainder of the lower extremities is patent otherwise.
[2022-11-03] MEDS ORDERED: FUROSEMIDE 40 MG/4 ML VIAL ONE (18:27)
[2022-11-03] MEDS ORDERED: METOPROLOL TARTRATE 5 MG/5 ML INJ IV ONE ×3 (18:49→21:08)
[2022-11-03] MEDS ORDERED: METOPROLOL XL 50 MG TAB PO ONE (18:51)
--- NOTE | 2022-11-03 19:15 | EDPHYS ---
Physician Documentation [facility] Name: Kyree Freeman Age: 56 yrs Sex: Male : 1965 Arrival Date: 11/03/2022 Time: 15:42 Bed 20 Private MD: ED Physician Ramesh Montes HPI: 11/03 16:00 This 56 yrs old Male presents to ER via Ambulatory with complaints of Feet Swelling. cp 16:00 The patient presents with swelling. The complaints affect the right foot and left foot cp and left lower leg and right lower leg. Context: patient reports having aneurysm repair and heart valve surgery last Tuesday by DR Azar at [facility]. 16:00 Associated signs and symptoms: Pertinent positives: shortness of breath, Pertinent cp negatives fever, vomiting, warmth, chest pain. 16:00 Modifying factors: the symptoms are aggravated by standing, light activity. cp Historical: - Allergies: 21:10 No Known Allergies; kl - Home Meds: 15:53 Aspirin Oral [Active]; amlodipine 10 mg tablet [Active]; metoprolol tartrate 50 mg Oral mb9 tablet once [Active]; potassium chloride 10 mEq Oral Tablet, ER Particles/Crystals once [Active]; lisinopril 20 mg Oral tablet once [Active]; furosemide 20 mg Oral tablet once [Active]; - PMHx: 15:53 Cerebrovascular accident; Leaky aorta; mb9 - PSHx: 15:53 Knee-Right; Open heart surgery; mb9 - Immunization history:: Adult Immunizations up to date. - Social history:: Smoking status: Patient denies any tobacco usage or history of. ROS: 16:05 Constitutional: Negative for body aches, chills, fever, poor PO intake. cp 16:05 Cardiovascular: Positive for edema, Negative for chest pain, palpitations. cp 16:05 Respiratory: Positive for shortness of breath, on exertion. Negative for cough, wheezing. 16:05 Abdomen/GI: Negative for abdominal pain, vomiting, diarrhea, constipation. cp 16:05 Eyes: Negative for injury, pain, redness, and discharge. cp 16:05 ENT: Negative for drainage from ear(s), ear pain, sore throat, difficulty swallowing, difficulty handling secretions. 16:05 Back: Negative for pain at rest, pain with movement. cp 16:05 Skin: Negative for cellulitis, rash. 16:05 Neuro: Negative for altered mental status, dizziness, headache, numbness, weakness. 16:05 All other systems are negative. Exam: 16:10 Constitutional: The patient appears in no acute distress, alert, awake, cp non-diaphoretic, non-toxic, well developed, well nourished. 16:10 Head/Face: Normocephalic, atraumatic. cp 16:10 Eyes: Periorbital structures: appear normal, Conjunctiva: normal, no exudate, no injection, Sclera: no appreciated abnormality, Lids and lashes: appear normal, bilaterally. 16:10 ENT: External ear(s): are unremarkable, Nose: is normal, Mouth: Lips: moist, Oral mucosa: pink and intact, moist, Posterior pharynx: is normal, airway is patent, no erythema, no exudate. 16:10 Neck: ROM/movement: is normal, is supple, without pain, no range of motions limitations. 16:10 Chest/axilla: Inspection: mid line scar, Palpation: crepitus, is not appreciated, tenderness, is not appreciated. 16:10 Cardiovascular: Rate: normal, Rhythm: regular, Edema: pedal edema, that is mild, ankle edema, that is mild, JVD: is not appreciated. 16:10 Respiratory: the patient does not display signs of respiratory distress, Respirations: normal, no use of accessory muscles, no retractions, labored breathing, is not present, Breath sounds: decreased breath sounds, that are mild, throughout, stridor, is not appreciated, wheezing: is not appreciated. 16:10 Abdomen/GI: Inspection: abdomen appears normal, Bowel sounds: active, all quadrants, Palpation: abdomen is soft and non-tender, in all quadrants. 16:10 Back: pain, is absent, ROM is normal. 16:10 Skin: cellulitis, is not appreciated, no rash present. 16:10 Neuro: Orientation: to person, place \T\ time. Mentation: is normal, Cerebellar function: is grossly normal, Motor: moves all fours, strength is normal, Sensation: is normal. 18:37 ECG was reviewed by the Attending Physician. cp Vital Signs: 15:49 BP 124 / 78; Pulse 92; Resp 18; Temp 98.4; Pulse Ox 100% ; Weight 96.62 kg; Height 5 mb9 ft. 6 in. ; Pain 0/10; 18:30 BP 121 / 79; Pulse 148; Resp 19 S; Pulse Ox 98% on R/A; iw 18:30 BP 144 / 75; Pulse 140; Resp 20; Pulse Ox 99% on R/A; vg1 18:45 BP 145 / 83; Pulse 133; Resp 30; Pulse Ox 99% on R/A; vg1 18:50 BP 137 / 91; Pulse 116; Resp 20; Pulse Ox 98% on R/A; vg1 18:55 BP 126 / 89; Pulse 114; Resp 26; Pulse Ox 97% on R/A; vg1 19:00 BP 132 / 82; Pulse 88; Resp 20; Pulse Ox 99% on R/A; vg1 21:07 BP 112 / 71; Pulse 109; Resp 18; Pulse Ox 99% on R/A; kl 23:10 BP 114 / 82; Pulse 84; Resp 19; Pulse Ox 100% on R/A; kl 11/04 00:19 BP 115 / 79; Pulse 84; Resp 18; Temp 97.8(TE); Pulse Ox 98% on R/A; kl 11/03 15:49 Body Mass Index 34.38 (96.62 kg, 167.64 cm) [facility] 11/03 15:49 Pain Scale: Adult mb9 MDM: 11/03 16:03 Patient medically screened. cp 18:00 Differential diagnosis: DVT, pulmonary embolism, pneumonia, cardiac arrythmia. cp 19:30 Data reviewed: vital signs, nurses notes, lab test result(s), EKG, radiologic studies, cp plain films, ultrasound. 19:30 Management of patient was discussed with the following: DR Nair, cardiac signal processing engineer cp \T\[facility], will accept patient after discussion. Counseling: I had a detailed discussion with the patient and/or guardian regarding: the historical points, exam findings, and any diagnostic results supporting the discharge/admit diagnosis, lab results, radiology results, the need to transfer to another facility, continuity of care. 11/03 15:58 Order name: Basic Metabolic Panel; Complete Time: 17:49 11/03 17:49 Interpretation: Normal except: NA 132; GFR 81. 11/03 15:58 Order name: CBC with Diff; Complete Time: 17:34 cp 11/03 17:35 Interpretation: Normal except: WBC 16.00; HGB 13.3; HCT 39.4; PLT 671; PEREZ% 81.9; LYM% cp 10.4; NEUT A 13.1. 11/03 15:58 Order name: Magnesium; Complete Time: 17:49 cp 11/03 15:58 Order name: NT PRO-BNP; Complete Time: 17:49 cp 11/03 15:58 Order name: PT-INR; Complete Time: 17:09 cp 11/03 15:58 Order name: Troponin HS; Complete Time: 17:49 cp 11/03 17:55 Order name: Urinalysis W/Microscopic; Complete Time: 20:53 cp 11/03 20:53 Interpretation: Reviewed. 11/03 18:47 Order name: Blood Culture Adult (2) cp 11/03 18:47 Order name: Lactate w/ 2H reflex if indic.; Complete Time: 21:49 cp 11/03 21:49 Interpretation: Reviewed. 11/03 18:51 Order name: SARS RAPID; Complete Time: 21:49 sp 11/03 21:50 Interpretation: Reviewed. 11/03 15:58 Order name: XRAY Chest (1 view); Complete Time: 17:09 cp 11/03 15:58 Order name: US Extremity Venous W Compression Bulmaro; Complete Time: 18:20 cp 11/03 18:27 Order name: CT Chest For PE Angio; Complete Time: 22:00 cp 11/03 22:01 Interpretation: Report reviewed. 11/03 15:58 Order name: EKG; Complete Time: 15:59 cp 11/03 15:58 Order name: Cardiac monitoring; Complete Time: 18:38 cp 11/03 15:58 Order name: EKG - Nurse/Tech; Complete Time: 18:38 cp 11/03 15:58 Order name: IV Saline Lock; Complete Time: 16:57 cp 11/03 15:58 Order name: Labs collected and sent; Complete Time: 16:57 cp 11/03 15:58 Order name: O2 Per Protocol; Complete Time: 18:38 cp 11/03 15:58 Order name: O2 Sat Monitoring; Complete Time: 18:38 cp 11/03 19:16 Order name: EKG - Nurse/Tech; Complete Time: 19:50 cp EC:37 Rate is 148 beats/min. Rhythm is irregular. QRS interval is prolonged at 118 msec. QT cp interval is normal. T waves are Inverted in leads aVL, aVR. Interpreted by me. Reviewed by me. Administered Medications: 18:10 Drug: Furosemide IVP 40 mg Route: IVP; Site: right antecubital; iw 18:48 Drug: Metoprolol IVP 5 mg Route: IVP; Site: right antecubital; vg1 18:54 Drug: Metoprolol PO 50 mg Route: PO; vg1 19:00 Drug: Metoprolol IVP 5 mg Route: IVP; Site: right antecubital; vg1 23:11 Follow up: Response: No adverse reaction kl 21:07 Drug: Metoprolol IVP 5 mg Route: IVP; Site: right antecubital; kl 21:24 Follow up: Response: No adverse reaction; Cardiac rhythm changed kl Disposition Summary: 11/03/22 19:15 Transfer Ordered Transfer Location: [facility] cp Reason: Higher level of care cp Condition: Stable cp Problem: new cp Symptoms: have improved cp Accepting Physician: DR Urvashi Nair(11/04/22 01:10) Diagnosis - Acute embolism and thrombosis of deep veins of lower extremity cp - Unspecified combined systolic (congestive) and diastolic (congestive) heart failure cp - Unspecified atrial fibrillation cp Forms: - Medication Reconciliation Form cp - SBAR form cp Signatures: Dispatcher [employer] EDMagdalene Ashley RN RN kl Williams, Irene, RN RN iw Page, Corey, PA PA cp Garcia, Victoria RN RN vg1 Ramesh Montes MD MD bs3 Sharlene Huerta RN RN mb9 Corrections: (The following items were deleted from the chart) 20:05 16:05 Respiratory: Negative for cough, wheezing, cp cp 21:09 19:15 Doctor cp cp 22:44 21:09 Doctor cp cp 11/04 01:10 11/03 22:44 DR Urvashi Nair [facility]
--- NOTE | 2022-11-03 19:15 | ER ---
Nurse's Notes [facility] Name: Kyree Freeman Age: 56 yrs Sex: Male : 1965 Arrival Date: 11/03/2022 Time: 15:42 Bed 20 Private MD: Diagnosis: Acute embolism and thrombosis of deep veins of lower extremity;Unspecified combined systolic (congestive) and diastolic (congestive) heart failure;Unspecified atrial fibrillation Presentation: 11/03 15:49 Chief complaint: Patient states: "Tuesday, my feet started swelling. I was released mb9 from [facility] this Tuesday for open heart surgery. Surgery was done on 10/22/22. They changed my Lasix medicine." Pt denies SOB and chest pain. Coronavirus screen: Vaccine status: Patient reports being unvaccinated. Ebola Screen: No symptoms or risks identified at this time. Initial Sepsis Screen: Does the patient meet any 2 criteria? No. Patient's initial sepsis screen is negative. Does the patient have a suspected source of infection? No. Patient's initial sepsis screen is negative. Risk Assessment: Do you want to hurt yourself or someone else? Patient reports no desire to harm self or others. Onset of symptoms was November 03, 2022. 15:49 Method Of Arrival: Ambulatory 9 15:49 Acuity: AJ 2 mb9 Triage Assessment: 11/04 01:10 General: Appears in no apparent distress. Behavior is calm, cooperative. Historical: - Allergies: 11/03 21:10 No Known Allergies; kl - Home Meds: 15:53 Aspirin Oral [Active]; amlodipine 10 mg tablet [Active]; metoprolol tartrate 50 mg Oral mb9 tablet once [Active]; potassium chloride 10 mEq Oral Tablet, ER Particles/Crystals once [Active]; lisinopril 20 mg Oral tablet once [Active]; furosemide 20 mg Oral tablet once [Active]; - PMHx: 15:53 Cerebrovascular accident; Leaky aorta; mb9 - PSHx: 15:53 Knee-Right; Open heart surgery; mb9 - Immunization history:: Adult Immunizations up to date. - Social history:: Smoking status: Patient denies any tobacco usage or history of. Screenin:30 [facility] ED Fall Risk Assessment (Adult) History of falling in the last 3 months, kl including since admission No falls in past 3 months (0 pts) Confusion or Disorientation No (0 pts) Intoxicated or Sedated No (0 pts) Impaired Gait No (0 pts) Mobility Assist Device Used No (0 pt) Altered Elimination No (0 pt) Score/Fall Risk Level 0 - 2 = Low Risk Oriented to surroundings, Maintained a safe environment. Abuse screen: Denies threats or abuse. Nutritional screening: No deficits noted. Tuberculosis screening: No symptoms or risk factors identified. Assessment: 18:57 Reassessment: received VO from Angela CONNOR to administer Metoprolol 5 mg x 1. vg1 20:29 Pain: Denies pain. Cardiovascular: Rhythm is sinus rhythm. Cardiovascular: Capillary kl refill < 3 seconds Patient's skin is warm and dry. pedal edema noted bilaterally. Respiratory: No deficits noted. 21:06 Reassessment: Patient appears in no apparent distress at this time. Cardiovascular: kl Rhythm is atrial fibrillation with rapid ventricular response. 21:24 Cardiovascular: Rhythm is sinus rhythm rate 89. kl 21:37 General: acceptance pending read. Dr. Herrera has been contacted due to the fiscal economist as6 radiologist not answering . 23:10 Reassessment: Patient appears in no apparent distress at this time. Patient denies pain kl at this time. Patient states feeling better. Patient states symptoms have improved. Vital Signs: 15:49 BP 124 / 78; Pulse 92; Resp 18; Temp 98.4; Pulse Ox 100% ; Weight 96.62 kg; Height 5 mb9 ft. 6 in. ; Pain 0/10; 18:30 BP 121 / 79; Pulse 148; Resp 19 S; Pulse Ox 98% on R/A; iw 18:30 BP 144 / 75; Pulse 140; Resp 20; Pulse Ox 99% on R/A; vg1 18:45 BP 145 / 83; Pulse 133; Resp 30; Pulse Ox 99% on R/A; vg1 18:50 BP 137 / 91; Pulse 116; Resp 20; Pulse Ox 98% on R/A; vg1 18:55 BP 126 / 89; Pulse 114; Resp 26; Pulse Ox 97% on R/A; vg1 19:00 BP 132 / 82; Pulse 88; Resp 20; Pulse Ox 99% on R/A; vg1 21:07 BP 112 / 71; Pulse 109; Resp 18; Pulse Ox 99% on R/A; kl 23:10 BP 114 / 82; Pulse 84; Resp 19; Pulse Ox 100% on R/A; kl 11/04 00:19 BP 115 / 79; Pulse 84; Resp 18; Temp 97.8(TE); Pulse Ox 98% on R/A; kl 11/03 15:49 Body Mass Index 34.38 (96.62 kg, 167.64 cm) mb9 11/03 15:49 Pain Scale: Adult mb9 ED Course: 11/03 15:47 Patient arrived in ED. im 15:48 Sean Miller PA is PHCP. cp 15:48 Ramesh Montes MD is Attending Physician. cp 15:53 Triage completed. mb9 15:53 Arm band placed on. mb9 16:34 XRAY Chest (1 view) In Process Unspecified. EDMS 16:57 Basic Metabolic Panel Sent. bc6 16:57 CBC with Diff Sent. bc6 16:57 Magnesium Sent. bc6 16:57 NT PRO-BNP Sent. bc6 16:57 PT-INR Sent. bc6 16:57 Troponin HS Sent. bc6 16:57 Inserted saline lock: 20 gauge in right antecubital area, using aseptic technique. bc6 17:32 US Extremity Venous W Compression Bulmaro In Process Unspecified. EDMS 17:59 Talia Prieto, RN is Primary Nurse. 18:42 Initial contact for transfer. previous desk tech noted she spoke to Dakota Lane, PRAFUL. 1 19:50 CT Chest For PE Angio In Process Unspecified. EDMS 20:30 Follow up contact to see if patient was accepted. Dakota stated they were waiting on a [facility] room and it will take a while. 20:50 Dakota called back stating that she is waiting on covid results to be faxed over and [facility] results from [place]. 21:09 SARS RAPID Sent. ah1 21:50 Faxed over covid results. ah1 23:39 Physician approval. 1 23:54 Hospital bed approval. 1 23:57 Faxed over face sheet and covid results as requested. [facility] 11/04 00:16 Contacted EMS. 1 01:10 Patient has correct armband on for positive identification. kl 01:10 No provider procedures requiring assistance completed. Patient transferred, IV remains kl in place. Administered Medications: 11/03 18:10 Drug: Furosemide IVP 40 mg Route: IVP; Site: right antecubital; iw 18:48 Drug: Metoprolol IVP 5 mg Route: IVP; Site: right antecubital; vg1 18:54 Drug: Metoprolol PO 50 mg Route: PO; vg1 19:00 Drug: Metoprolol IVP 5 mg Route: IVP; Site: right antecubital; vg1 23:11 Follow up: Response: No adverse reaction kl 21:07 Drug: Metoprolol IVP 5 mg Route: IVP; Site: right antecubital; kl 21:24 Follow up: Response: No adverse reaction; Cardiac rhythm changed kl Medication: 11/04 01:10 VIS not applicable for this client. kl Outcome: 11/03 19:15 ER care complete, transfer ordered by MD. jean baptiste 11/04 01:09 Transferred by ground EMS to [facility]. kl Condition: stable Discharge instructions given to patient, Instructed on the need for transfer, Demonstrated understanding of instructions. 01:10 Patient left the ED. kl Signatures: Dispatcher [employer] EDMS Magdalene Mendez RN RN kl Williams, Irene RN RN Sean Katz, PA PA Catrachita Vann RN RN vg1 Patel Sanchez RN RN as6 Sharlene Huerta RN RN mb9 Sara Walton Ahmarea Ashlyn Hagan Corrections: (The following items were deleted from the chart) 11/03 19:05 19:05 Metoprolol IVP 5 mg IVP in right antecubital vg1 vg1 21:02 15:49 Acuity: AJ 3 mb9 mb9 21:02 18:40 Acuity: AJ 2 iw mb9
[2022-11-03 20:43] LABS: Specific Gravity 1.006 (1.005-1.030); Urine Bacteria <20 /HPF (<20); Urine Bilirubin NEGATIVE (Negative); Urine Blood Trace (Negative); Urine Clarity Clear (Clear); Urine Color Colorless (Yellow); Urine Glucose NEGATIVE (Negative); Urine Mucus Slight /HPF (None Seen); Urine Protein NEGATIVE (Negative); Urine RBC <5 /HPF (None Seen); Urine Urobilinogen Normal (Normal); Urine pH 5.5 (5.0-7.0)
[2022-11-03 21:39] LABS: SARS-CoV-2 Antigen Rapid Res Negative (Negative)
--- NOTE | 2022-11-03 21:49 | RAD REPORT ---
EXAM DESCRIPTION: CT - Chest For Pe Angio - 11/03/2022 7:48 pm CLINICAL HISTORY: SWELLING COMPARISON: Chest Single View dated 11/03/2022 TECHNIQUE: Thin axial CT images of the chest were obtained following administration of 70 mL Isovue 370 IV contrast. Multiplanar reconstructions, and maximum intensity projection reconstructions were g enerated and reviewed. Exam utilizes a protocol for optimal evaluation of pulmonary arterial tree. All CT scans are performed using dose optimization technique as appropriate and may include automated exposure control or mA/KV adjustment according to patient size. FINDINGS: Pulmonary arteries are normal. No emboli or other suspicious finding. No acute or signific ant aorta findings. No suspicious mass or consolidation in the lung parenchyma. Bilateral small to moderate layering pleu ral effusions, with underlying atelectasis. No pneumothorax. Mild cardiomegaly. 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 Luminal irregularity along the ascending thoraci c aorta, may relate to prior surgical intervention. Soft tissue fat stranding adjacent to the aorta, and extending along the AP window may relate to recent surgery. No aneurysmal dilation or a dissectio n flap. No abnormal mediastinal or hilar masses or lymphadenopathy seen. No chest wall mass or abnormal axill iary lymphadenopathy. IMPRESSION: No evidence of acute central pulmonary emboli. Bilateral small to moderate layering pleural effusions with underlying atelectasis. Luminal irregularity along the ascending thoracic aorta and adjacent shaft tissue fat stranding, favo red to reflect sequelae of recent surgical intervention. Please correlate with operative details.
[2022-11-04 01:43] VITALS: BP 115/79; TEMP 97.8; O2SAT 98
--- NOTE | 2022-11-04 12:08 | EKG ---
Test Date: 2022-11-03 Test Time: 18:29:36 Disability Insurance Hearing Officer: IDALIA MEASUREMENT RESULTS: Intervals: Rate: 148 OR: QRSD: 118 QT: 318 QTc: 499 Mcdermitt: P: OR: QRS: 56 T: 89 INTERPRETIVE STATEMENTS: Atrial fibrillation Nonspecific ST abnormality, probably digitalis effect Abnormal ECG Compared to ECG 05/25/2022 14:02:29 ST (T wave) deviation now present Sinus tachycardia no longer present T-wave abnormality no longer present Possible ischemia no longer present Electronically Signed On 11-04-22 12:06:01 CDT by Butch Varma
--- NOTE | 2022-11-04 12:08 | EKG ---
Test Date: 2022-11-03 Test Time: 19:25:59 Oncology Social Work: RV MEASUREMENT RESULTS: Intervals: Rate: 91 WY: 176 QRSD: 114 QT: 404 QTc: 496 [place]: P: 52 W[place]: 176 QRS: 33 T: 83 INTERPRETIVE STATEMENTS: Normal sinus rhythm Prolonged QT Abnormal ECG Compared to ECG 11/03/2022 18:29:36 Prolonged QT interval now present Atrial fibrillation no longer present ST (T wave) deviation no longer present Electronically Signed On 11-04-22 12:05:59 CDT by Butch Varma
== END 2022-11-04 01:10 | disposition short-term general hospital (02) ==
LOC: ER 15:42
DX: I82.431 Acute embolism and thrombosis of right popliteal vein (principal); I50.40 Unspecified combined systolic (congestive) and diastolic (congestive) heart failure; I48.91 Unspecified atrial fibrillation; Z20.822 Contact with and (suspected) exposure to COVID-19; Z86.73 Personal history of transient ischemic attack (TIA), and cerebral infarction without residual deficits; Z79.82 Long term (current) use of aspirin
CPT/HCPCS: 93005 ×2; 87040; 85025; 81001; 80048; 36415; 83735; 85610; 83605; 84484; 83880; 71275; 71045; 93970; 96375; 96374; 99285; 87811; Q9967; J1940

== ENCOUNTER 2023-02-16 13:57 | Emergency (ER) | payer OTHER ==
--- OUTSIDE RECORDS SUMMARY | 2023-02-16 14:34 | XMS REPORT | Continuity of Care Document ---
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 1000 20:45: ml/hr, Jaime n ml INJ 00 Infuse 1,000 mL over: 10 hr, Route: IV, Dosing Weight 109.091 kg, Total Volume: 1,000, Start date: 01/12/17 15:45:00 CDT, Duration: 30 day, Stop date: 02/11/17 15:44:00 CDT sodium 2017-0 No 1,000 mL, Memori a chloride 8-09 Rate: 100 l 0.9% 1000 20:45: ml/hr, Jaime n ml INJ 00 Infuse 1,000 mL over: 10 hr, Route: IV, Dosing Weight 109.091 kg, Total Volume: 1,000, Start date: 01/12/17 15:45:00 CDT, Duration: 30 day, Stop date: 02/11/17 15:44:00 CDT sodium 2017-0 No 1,000 mL, Memori a chloride 8-09 Rate: 100 l 0.9% 1000 20:45: ml/hr, Jaime n ml INJ 00 Infuse 1,000 mL over: 10 hr, Route: IV, Dosing Weight 109.091 kg, Total Volume: 1,000, Start date: 01/12/17 15:45:00 CDT, Duration: 30 day, Stop date: 02/11/17 15:44:00 CDT sodium 2017-0 No 1,000 mL, Memori a chloride 8-09 Rate: 100 l 0.9% 1000 20:45: ml/hr, Jaime n ml INJ 00 Infuse 1,000 mL over: 10 hr, Route: IV, Dosing Weight 109.091 kg, Total Volume: 1,000, Start date: 01/12/17 15:45:00 CDT, Duration: 30 day, Stop date: 02/11/17 15:44:00 CDT sodium 2017-0 No 1,000 mL, Memori a chloride 8-09 Rate: 100 l 0.9% 1000 20:45: ml/hr, Jaime n ml INJ 00 Infuse 1,000 mL over: 10 hr, Route: IV, Dosing Weight 109.091 kg, Total Volume: 1,000, Start date: 01/12/17 15:45:00 CDT, Duration: 30 day, Stop date: 02/11/17 15:44:00 CDT sodium 2017-0 No 1,000 mL, Memori a chloride 8-09 Rate: 100 l 0.9% 1000 20:45: ml/hr, Jaime n ml INJ 00 Infuse 1,000 mL over: 10 hr, Route: IV, Dosing Weight 109.091 kg, Total Volume: 1,000, Start date: 01/12/17 15:45:00 CDT, Duration: 30 day, Stop date: 02/11/17 15:44:00 CDT sodium 2017-0 No 1,000 mL, Memori a chloride 8-09 Rate: 100 l 0.9% 1000 20:45: ml/hr, Jaime n ml INJ 00 Infuse 1,000 mL over: 10 hr, Route: IV, Dosing Weight 109.091 kg, Total Volume: 1,000, Start date: 01/12/17 15:45:00 CDT, Duration: 30 day, Stop date: 02/11/17 15:44:00 CDT sodium 2017-0 No 1,000 mL, Memori a chloride 8-09 Rate: 100 l 0.9% 1000 20:45: ml/hr, Jaime n ml INJ 00 Infuse 1,000 mL over: 10 hr, Route: IV, Dosing Weight 109.091 kg, Total Volume: 1,000, Start date: 01/12/17 15:45:00 CDT, Duration: 30 day, Stop date: 02/11/17 15:44:00 CDT sodium 2017-0 No 1,000 mL, Memori a chloride 8-09 Rate: 100 l 0.9% 1000 20:45: ml/hr, Jaime n ml INJ 00 Infuse 1,000 mL over: 10 hr, Route: IV, Dosing Weight 109.091 kg, Total Volume: 1,000, Start date: 01/12/17 15:45:00 CDT, Duration: 30 day, Stop date: 02/11/17 15:44:00 CDT sodium 2017-0 No 1,000 mL, Memori a chloride 8-09 Rate: 100 l 0.9% 1000 20:45: ml/hr, Jaime n ml INJ 00 Infuse 1,000 mL over: 10 hr, Route: IV, Dosing Weight 109.091 kg, Total Volume: 1,000, Start date: 01/12/17 15:45:00 CDT, Duration: 30 day, Stop date: 02/11/17 15:44:00 CDT sodium 2017-0 No 1,000 mL, Memori a chloride 8-09 Rate: 100 l 0.9% 1000 20:45: ml/hr, Jaime n ml INJ 00 Infuse 1,000 mL over: 10 hr, Route: IV, Dosing Weight 109.091 kg, Total Volume: 1,000, Start date: 01/12/17 15:45:00 CDT, Duration: 30 day, Stop date: 02/11/17 15:44:00 CDT sodium 2017-0 No 1,000 mL, Memori a chloride 8-09 Rate: 100 l 0.9% 1000 20:45: ml/hr, Jaime n ml INJ 00 Infuse 1,000 mL over: 10 hr, Route: IV, Dosing Weight 109.091 kg, Total Volume: 1,000, Start date: 01/12/17 15:45:00 CDT, Duration: 30 day, Stop date: 02/11/17 15:44:00 CDT sodium 2017-0 No 1,000 mL, Memori a chloride 8- Rate: 100 l 0.9% 1000 20:45: ml/hr, Jaime n ml INJ 00 Infuse 1,000 mL over: 10 hr, Route: IV, Dosing Weight 109.091 kg, Total Volume: 1,000, Start date: 01/12/17 15:45:00 CDT, Duration: 30 day, Stop date: 02/11/17 15:44:00 CDT sodium 2017-0 No 1,000 mL, Memori a chloride 8- Rate: 100 l 0.9% 1000 20:45: ml/hr, Jaime n ml INJ 00 Infuse 1,000 mL over: 10 hr, Route: IV, Dosing Weight 109.091 kg, Total Volume: 1,000, Start date: 01/12/17 15:45:00 CDT, Duration: 30 day, Stop date: 02/11/17 15:44:00 CDT sodium 2017-0 No 1,000 mL, Memori a chloride 8-09 Rate: 100 l 0.9% 1000 20:45: ml/hr, Jaime n ml INJ 00 Infuse 1,000 mL over: 10 hr, Route: IV, Dosing Weight 109.091 kg, Total Volume: 1,000, Start date: 01/12/17 15:45:00 CDT, Duration: 30 day, Stop date: 02/11/17 15:44:00 CDT sodium 2017-0 No 1,000 mL, Memori a chloride 01-12 Rate: 100 l 0.9% 1000 20:45: ml/hr, Jaime n ml INJ 00 Infuse 1,000 mL over: 10 hr, Route: IV, Dosing Weight 109.091 kg, Total Volume: 1,000, Start date: 01/12/17 15:45:00 CDT, Duration: 30 day, Stop date: 02/11/17 15:44:00 CDT sodium 2017-0 No 1,000 mL, Memori a chloride 01-12 Rate: 100 l 0.9% 1000 20:45: ml/hr, Jaime n ml INJ 00 Infuse 1,000 mL over: 10 hr, Route: IV, Dosing Weight 109.091 kg, Total Volume: 1,000, Start date: 01/12/17 15:45:00 CDT, Duration: 30 day, Stop date: 02/11/17 15:44:00 CDT sodium 2017-0 No 1,000 mL, Memori a chloride 01-12 Rate: 100 l 0.9% 1000 20:45: ml/hr, Jaime n ml INJ 00 Infuse 1,000 mL over: 10 hr, Route: IV, Dosing Weight 109.091 kg, Total Volume: 1,000, Start date: 01/12/17 15:45:00 CDT, Duration: 30 day, Stop date: 02/11/17 15:44:00 CDT sodium 2017-0 No 1,000 mL, Memori a chloride 01-12 Rate: 100 l 0.9% 1000 20:45: ml/hr, Jaime n ml INJ 00 Infuse 1,000 mL over: 10 hr, Route: IV, Dosing Weight 109.091 kg, Total Volume: 1,000, Start date: 01/12/17 15:45:00 CDT, Duration: 30 day, Stop date: 02/11/17 15:44:00 CDT Fish Oil 2017-0 No 1,200 mg, Jah jina 01-12 Route: PO, l 14:00: Drug form: Kush 00 CAP, Daily, Dosing Weight 109.091, kg, Start date: 01/12/17 9:00:00 CDT, Duration: 30 day, Stop date: 02/10/17 9:00:00 CDT MaxEPA No Notes: Memoria 01-12 (Same as: l 14:00: MaxEPA, [place] 00 [place] 3 fish oil ) [facility] No [facility] tab, [facility] Silver 01-12 Route: PO, l Men's 14:00: Dosing Kush 00 Weight 109.091, kg, Daily, Start date: 01/12/17 9:00:00 CDT, Duration: 30 day, Stop date: 02/10/17 9:00:00 CDT Amlodipine No Notes: Memor ia 01-12 (Same as: l 14:00: Norvasc) Kush 00 Aspirin No Notes: (Do Jah jina 01-12 Not Crush) l 14:00: Do not [place] 00 crush or chew. multivitami No Notes: Jah jina n 01-12 (Same l 14:00: as:Thera) [place] 00 WASTE: F/P - Black; E - Municipal Trash Bin Take with food. Fish Oil No 1,200 mg, Jah jina 01-12 Route: PO, l 14:00: Drug form: [place] 00 CAP, Daily, Dosing Weight 109.091, kg, Start date: 01/12/17 9:00:00 CDT, Duration: 30 day, Stop date: 02/10/17 9:00:00 CDT MaxEPA No Notes: [facility]oria 01-12 (Same as: l 14:00: MaxEPA, [place] 00 [place] 3 fish oil ) [facility] No [facility] tab, [facility] Silver 01-12 Route: PO, l Men's 14:00: Dosing Kush 00 Weight 109.091, kg, Daily, Start date: 01/12/17 9:00:00 CDT, Duration: 30 day, Stop date: 02/10/17 9:00:00 CDT Amlodipine No Notes: Memor ia 01-12 (Same as: l 14:00: Norvasc) [place] 00 Aspirin No Notes: (Do Jah jina 01-12 Not Crush) l 14:00: Do not [place] 00 crush or chew. multivitami No Notes: Jah jina n 01-12 (Same l 14:00: as:Thera) [place] 00 WASTE: F/P - Black; E - Municipal Trash Bin Take with food. Fish Oil No 1,200 mg, Jah jina 01-12 Route: PO, l 14:00: Drug form: Kush 00 CAP, Daily, Dosing Weight 109.091, kg, Start date: 01/12/17 9:00:00 CDT, Duration: 30 day, Stop date: 02/10/17 9:00:00 CDT Fish Oil No 1,200 mg, Jah jina 01-12 Route: PO, l 14:00: Drug form: [place] 00 CAP, Daily, Dosing Weight 109.091, kg, Start date: 01/12/17 9:00:00 CDT, Duration: 30 day, Stop date: 02/10/17 9:00:00 CDT MaxEPA No Notes: Memoria 01-12 (Same as: l 14:00: MaxEPA, [place] 3 fish oil ) [facility] No [facility] tab, [facility] Silver 01-12 Route: PO, l Men's 14:00: Dosing [place] 00 Weight 109.091, kg, Daily, Start date: 01/12/17 9:00:00 CDT, Duration: 30 day, Stop date: 02/10/17 9:00:00 CDT Amlodipine No Notes: Memor ia 01-12 (Same as: l 14:00: Norvasc) [place] 00 Aspirin 0 No Notes: (Do Jah jina 01-12 Not Crush) l 14:00: Do not [place] 00 crush or chew. multivitami No Notes: Jah jina n 01-12 (Same l 14:00: as:Thera) [place] 00 WASTE: F/P - Black; E - Municipal Trash Bin Take with food. MaxEPA No Notes: Memoria 01-12 (Same as: l 14:00: MaxEPA, [place] 00 [place] 3 fish oil ) [facility] No 1 tab, [facility] Silver 01-12 Route: PO, l Men's 14:00: Dosing Weight 109.091, kg, Daily, Start date: 01/12/17 9:00:00 CDT, Duration: 30 day, Stop date: 02/10/17 9:00:00 CDT Fish Oil No 1,200 mg, Jah jina 01-12 Route: PO, l 14:00: Drug form: Kush 00 CAP, Daily, Dosing Weight 109.091, kg, Start date: 01/12/17 9:00:00 CDT, Duration: 30 day, Stop date: 02/10/17 9:00:00 CDT MaxEPA No Notes: Memoria 01-12 (Same as: l 14:00: MaxEPA, [place] 3 fish oil ) [facility] No 1 tab, [facility] Silver 01-12 Route: PO, l Men's 14:00: Dosing Weight 109.091, kg, Daily, Start date: 01/12/17 9:00:00 CDT, Duration: 30 day, Stop date: 02/10/17 9:00:00 CDT Amlodipine No Notes: Memor ia 01-12 (Same as: l 14:00: Norvasc) Aspirin No Notes: (Do Jah jina 01-12 Not Crush) l 14:00: Do not crush or chew. multivitami No Notes: Jah jina n 01-12 (Same l 14:00: as:Thera) WASTE: F/P - Black; E - Municipal Trash Bin Take with food. Amlodipine No Notes: Memor ia 01-12 (Same as: l 14:00: Norvasc) Fish Oil No 1,200 mg, Jah jina 01-12 Route: PO, l 14:00: Drug form: [place] 00 CAP, Daily, Dosing Weight 109.091, kg, Start date: 01/12/17 9:00:00 CDT, Duration: 30 day, Stop date: 02/10/17 9:00:00 CDT MaxEPA No Notes: Memoria 01-12 (Same as: l 14:00: MaxEPA, [place] 00 [place] 3 fish oil ) [facility] No 1 tab, Mem[facility] Silver 01-12 Route: PO, l Men's 14:00: Dosing [place] 00 Weight 109.091, kg, Daily, Start date: 01/12/17 9:00:00 CDT, Duration: 30 day, Stop date: 02/10/17 9:00:00 CDT Amlodipine No Notes: Memor ia 01-12 (Same as: l 14:00: Norvasc) Kush Aspirin No Notes: (Do Jah jina 01-12 Not Crush) l 14:00: Do not [place] 00 crush or chew. multivitami No Notes: Jah jina n 01-12 (Same l 14:00: as:Thera) [place] 00 WASTE: F/P - Black; E - Municipal Trash Bin Take with food. Aspirin No Notes: (Do Jah jina 01-12 Not Crush) l 14:00: Do not [place] 00 crush or chew. Fish Oil No 1,200 mg, Jah jina 01-12 Route: PO, l 14:00: Drug form: [place] 00 CAP, Daily, Dosing Weight 109.091, kg, Start date: 01/12/17 9:00:00 CDT, Duration: 30 day, Stop date: 02/10/17 9:00:00 CDT MaxEPA No Notes: Memoria 01-12 (Same as: l 14:00: MaxEPA, [place] 00 [place] 3 fish oil ) [facility] No 1 tab, [facility] Silver 01-12 Route: PO, l Men's 14:00: Dosing Kush 00 Weight 109.091, kg, Daily, Start date: 01/12/17 9:00:00 CDT, Duration: 30 day, Stop date: 02/10/17 9:00:00 CDT Amlodipine No Notes: Memor ia 01-12 (Same as: l 14:00: Norvasc) [place] 00 Aspirin No Notes: (Do Jah jina 01-12 Not Crush) l 14:00: Do not [place] 00 crush or chew. Fish Oil No 1,200 mg, Jah jina 01-12 Route: PO, l 14:00: Drug form: [place] 00 CAP, Daily, Dosing Weight 109.091, kg, Start date: 01/12/17 9:00:00 CDT, Duration: 30 day, Stop date: 02/10/17 9:00:00 CDT MaxEPA No Notes: Memoria 01-12 (Same as: l 14:00: MaxEPA, [place] 00 [place] 3 fish oil ) [facility] No [facility] tab, [facility] Silver 01-12 Route: PO, l Men's 14:00: Dosing Kush Weight 109.091, kg, Daily, Start date: 01/12/17 [...] - Municipal Trash Bin Take with food. multivitami No Notes: Jah jina n 01-12 (Same l 14:00: as:Thera) [place] 00 WASTE: F/P - Black; E - Municipal Trash Bin Take with food. multivitami No Notes: Jah jina n 01-12 (Same l 14:00: as:Thera) [place] 00 WASTE: F/P - Black; E - Municipal Trash Bin Take with food. Fish Oil No 1,200 mg, Jah jina 01-12 Route: PO, l 14:00: Drug form: [place] 00 CAP, Daily, Dosing Weight 109.091, kg, Start date: 01/12/17 9:00:00 CDT, Duration: 30 day, Stop date: 02/10/17 9:00:00 CDT MaxEPA 0 No Notes: Memoria 01-12 (Same as: l 14:00: MaxEPA, [place] 00 [place] 3 fish oil ) [facility] No 1 tab, Memoria Silver 01-12 Route: PO, l Men's 14:00: Dosing Kush 00 Weight 109.091, kg, Daily, Start date: 01/12/17 9:00:00 CDT, Duration: 30 day, Stop date: 02/10/17 9:00:00 CDT Amlodipine No Notes: Memor ia 01-12 (Same as: l 14:00: Norvasc) [place] 00 Aspirin No Notes: (Do Jah jina 01-12 Not Crush) l 14:00: Do not [place] 00 crush or chew. multivitami No Notes: Jah jina n 01-12 (Same l 14:00: as:Thera) [place] 00 WASTE: F/P - Black; E - Municipal Trash Bin Take with food. Fish Oil No 1,200 mg, Jah jina 01-12 Route: PO, l 14:00: Drug form: [place] 00 CAP, Daily, Dosing Weight 109.091, kg, Start date: 01/12/17 9:00:00 CDT, Duration: 30 day, Stop date: 02/10/17 9:00:00 CDT MaxEPA 0 No Notes: Memoria 01-12 (Same as: l 14:00: MaxEPA, [place] 00 [place] 3 fish oil ) [facility] No 1 tab, Memoria Silver 01-12 Route: PO, l Men's 14:00: Dosing [place] 00 Weight 109.091, kg, Daily, Start date: 01/12/17 9:00:00 CDT, Duration: 30 day, Stop date: 02/10/17 9:00:00 CDT Amlodipine 0 No Notes: Memor ia 01-12 (Same as: l 14:00: Norvasc) [place] 00 Aspirin 0 No Notes: (Do Jah jina 8-09 Not Crush) l 14:00: Do not [place] 00 crush or chew. multivitami No Notes: Jah jina n 01-12 (Same l 14:00: as:Thera) [place] 00 WASTE: F/P - Black; E - Municipal Trash Bin Take with food. Fish Oil No 1,200 mg, Jah jina 01-12 Route: PO, l 14:00: Drug form: [place] 00 CAP, Daily, Dosing Weight 109.091, kg, Start date: 01/12/17 9:00:00 CDT, Duration: 30 day, Stop date: 02/10/17 9:00:00 CDT MaxEPA No Notes: Memoria 01-12 (Same as: l 14:00: MaxEPA, [place] 3 fish oil ) [facility] No 1 tab, Memoria Silver 01-12 Route: PO, l Men's 14:00: Dosing [place] 00 Weight 109.091, kg, Daily, Start date: 01/12/17 9:00:00 CDT, Duration: 30 day, Stop date: 02/10/17 9:00:00 CDT Amlodipine No Notes: Memor ia 01-12 (Same as: l 14:00: Norvasc) [place] 00 Aspirin No Notes: (Do Jah jina 01-12 Not Crush) l 14:00: Do not [place] 00 crush or chew. multivitami No Notes: Jah jina n 01-12 (Same l 14:00: as:Thera) [place] 00 WASTE: F/P - Black; E - Municipal Trash Bin Take with food. Fish Oil No 1,200 mg, Jah jina 01-12 Route: PO, l 14:00: Drug form: [place] 00 CAP, Daily, Dosing Weight 109.091, kg, Start date: 01/12/17 9:00:00 CDT, Duration: 30 day, Stop date: 02/10/17 9:00:00 CDT MaxEPA No Notes: Memoria 01-12 (Same as: l 14:00: MaxEPA, [place] 00 [place] 3 fish oil ) [facility] No 1 tab, Memoria Silver 01-12 Route: PO, l Men's 14:00: Dosing [place] 00 Weight 109.091, kg, Daily, Start date: 01/12/17 9:00:00 CDT, Duration: 30 day, Stop date: 02/10/17 9:00:00 CDT Amlodipine No Notes: Memor ia 01-12 (Same as: l 14:00: Norvasc) [place] Aspirin No Notes: (Do Jah jina 01-12 Not Crush) l 14:00: Do not [place] 00 crush or chew. multivitami No Notes: Jah jina n 01-12 (Same l 14:00: as:Thera) [place] WASTE: F/P - Black; E - Municipal Trash Bin Take with food. Fish Oil No 1,200 mg, Jah jina 01-12 Route: PO, l 14:00: Drug form: [place] 00 CAP, Daily, Dosing Weight 109.091, kg, Start date: 01/12/17 9:00:00 CDT, Duration: 30 day, Stop date: 02/10/17 9:00:00 CDT MaxEPA No Notes: Memoria 01-12 (Same as: l 14:00: MaxEPA, [place] 00 [place] 3 fish oil ) [facility] No 1 tab, Memoria Silver 01-12 Route: PO, l Men's 14:00: Dosing Weight 109.091, kg, Daily, Start date: 01/12/17 9:00:00 CDT, Duration: 30 day, Stop date: 02/10/17 9:00:00 CDT Amlodipine No Notes: Memor ia 01-12 (Same as: l 14:00: Norvasc) Kush Aspirin No Notes: (Do Jah jina 01-12 Not Crush) l 14:00: Do not [place] 00 crush or chew. multivitami No Notes: Jah jina n 01-12 (Same l 14:00: as:Thera) [place] WASTE: F/P - Black; E - Municipal Trash Bin Take with food. Fish Oil No 1,200 mg, Jah jina 01-12 Route: PO, l 14:00: Drug form: [place] 00 CAP, Daily, Dosing Weight 109.091, kg, Start date: 01/12/17 9:00:00 CDT, Duration: 30 day, Stop date: 02/10/17 9:00:00 CDT MaxEPA No Notes: Memoria 01-12 (Same as: l 14:00: MaxEPA, [place] 00 [place] 3 fish oil ) [facility] No 1 tab, Memoria Silver 01-12 Route: PO, l Men's 14:00: Dosing Weight 109.091, kg, Daily, Start date: 01/12/17 9:00:00 CDT, Duration: 30 day, Stop date: 02/10/17 9:00:00 CDT Amlodipine No Notes: Memor ia 01-12 (Same as: l 14:00: Norvasc) [place] 00 Aspirin No Notes: (Do Jah jina 01-12 Not Crush) l 14:00: Do not [place] 00 crush or chew. multivitami No Notes: Jah jina n 01-12 (Same l 14:00: as:Thera) [place] 00 WASTE: F/P - Black; E - Municipal Trash Bin Take with food. Fish Oil No 1,200 mg, Jah jina 01-12 Route: PO, l 14:00: Drug form: [place] 00 CAP, Daily, Dosing Weight 109.091, kg, Start date: 01/12/17 9:00:00 CDT, Duration: 30 day, Stop date: 02/10/17 9:00:00 CDT MaxEPA 0 No Notes: Memoria 01-12 (Same as: l 14:00: MaxEPA, [place] 00 [place] 3 fish oil ) [facility] No 1 tab, Memoria Silver 01-12 Route: PO, l Men's 14:00: Dosing Weight 109.091, kg, Daily, Start date: 01/12/17 9:00:00 CDT, Duration: 30 day, Stop date: 02/10/17 9:00:00 CDT Amlodipine No Notes: Memor ia 01-12 (Same as: l 14:00: Norvasc) [place] Aspirin No Notes: (Do Jah jina 01-12 Not Crush) l 14:00: Do not [place] 00 crush or chew. multivitami No Notes: Jah jina n 01-12 (Same l 14:00: as:Thera) [place] 00 WASTE: F/P - Black; E - Municipal Trash Bin Take with food. Fish Oil No 1,200 mg, Jah jina 01-12 Route: PO, l 14:00: Drug form: [place] 00 CAP, Daily, Dosing Weight 109.091, kg, Start date: 01/12/17 9:00:00 CDT, Duration: 30 day, Stop date: 02/10/17 9:00:00 CDT MaxEPA No Notes: Memoria 01-12 (Same as: l 14:00: MaxEPA, [place] 00 [place] 3 fish oil ) [facility] No 1 tab, Memoria Silver 01-12 Route: PO, l Men's 14:00: Dosing Weight 109.091, kg, Daily, Start date: 01/12/17 9:00:00 CDT, Duration: 30 day, Stop date: 02/10/17 9:00:00 CDT Amlodipine No Notes: Memor ia 01-12 (Same as: l 14:00: Norvasc) [place] Aspirin No Notes: (Do Jah jina 01-12 Not Crush) l 14:00: Do not [place] 00 crush or chew. multivitami No Notes: Jah jina n 01-12 (Same l 14:00: as:Thera) [place] 00 WASTE: F/P - Black; E - Municipal Trash Bin Take with food. Fish Oil No 1,200 mg, Jah jina 01-12 Route: PO, l 14:00: Drug form: [place] 00 CAP, Daily, Dosing Weight 109.091, kg, Start date: 01/12/17 9:00:00 CDT, Duration: 30 day, Stop date: 02/10/17 9:00:00 CDT MaxEPA No Notes: Memoria 01-12 (Same as: l 14:00: MaxEPA, [place] 00 [place] 3 fish oil ) [facility] No 1 tab, Memoria Silver 01-12 Route: PO, l Men's 14:00: Dosing [place] 00 Weight 109.091, kg, Daily, Start date: 01/12/17 9:00:00 CDT, Duration: 30 day, Stop date: 02/10/17 9:00:00 CDT Amlodipine No Notes: Memor ia 01-12 (Same as: l 14:00: Norvasc) [place] 00 Aspirin No Notes: (Do Jah jina 01-12 Not Crush) l 14:00: Do not [place] 00 crush or chew. multivitami No Notes: Jah jina n 01-12 (Same l 14:00: as:Thera) [place] 00 WASTE: F/P - Black; E - Municipal Trash Bin Take with food. Fish Oil No 1,200 mg, Jah jina 01-12 Route: PO, l 14:00: Drug form: [place] 00 CAP, Daily, Dosing Weight 109.091, kg, Start date: 01/12/17 9:00:00 CDT, Duration: 30 day, Stop date: 02/10/17 9:00:00 CDT MaxEPA 0 No Notes: Memoria 01-12 (Same as: l 14:00: MaxEPA, [place] 00 [place] 3 fish oil ) [facility] No 1 tab, Memoria Silver 01-12 Route: PO, l Men's 14:00: Dosing [place] 00 Weight 109.091, kg, Daily, Start date: 01/12/17 9:00:00 CDT, Duration: 30 day, Stop date: 02/10/17 9:00:00 CDT Amlodipine 0 No Notes: Memor ia 01-12 (Same as: l 14:00: Norvasc) [place] 00 Aspirin No Notes: (Do Jah jina 01-12 Not Crush) l 14:00: Do not [place] 00 crush or chew. multivitami No Notes: Jah jina n 01-12 (Same l 14:00: as:Thera) [place] 00 WASTE: F/P - Black; E - Municipal Trash Bin Take with food. Fish Oil No 1,200 mg, Jah jina 01-12 Route: PO, l 14:00: Drug form: [place] 00 CAP, Daily, Dosing Weight 109.091, kg, Start date: 01/12/17 9:00:00 CDT, Duration: 30 day, Stop date: 02/10/17 9:00:00 CDT MaxEPA No Notes: Memoria 01-12 (Same as: l 14:00: MaxEPA, [place] 00 [place] 3 fish oil ) [facility] No 1 tab, Memoria Silver 01-12 Route: PO, l Men's 14:00: Dosing [place] 00 Weight 109.091, kg, Daily, Start date: 01/12/17 9:00:00 CDT, Duration: 30 day, Stop date: 02/10/17 9:00:00 CDT Amlodipine No Notes: Memor ia 01-12 (Same as: l 14:00: Norvasc) [place] 00 Aspirin No Notes: (Do Jah jina 01-12 Not Crush) l 14:00: Do not [place] 00 crush or chew. multivitami No Notes: Jah jina n 01-12 (Same l 14:00: as:Thera) [place] 00 WASTE: F/P - Black; E - Municipal Trash Bin Take with food. Fish Oil No 1,200 mg, Jah jina 01-12 Route: PO, l 14:00: Drug form: [place] 00 CAP, Daily, Dosing Weight 109.091, kg, Start date: 01/12/17 9:00:00 CDT, Duration: 30 day, Stop date: 02/10/17 9:00:00 CDT MaxEPA No Notes: Memoria 01-12 (Same as: l 14:00: MaxEPA, [place] 00 [place] 3 fish oil ) [facility] No 1 tab, Memoria Silver 01-12 Route: PO, l Men's 14:00: Dosing [place] Weight 109.091, kg, Daily, Start date: 01/12/17 9:00:00 CDT, Duration: 30 day, Stop date: 02/10/17 9:00:00 CDT Amlodipine No Notes: Memor ia 01-12 (Same as: l 14:00: Norvasc) [place] Aspirin No Notes: (Do Jah jina 01-12 Not Crush) l 14:00: Do not [place] 00 crush or chew. multivitami No Notes: Jah jina n 01-12 (Same l 14:00: as:Thera) [place] 00 WASTE: F/P - Black; E - Municipal Trash Bin Take with food. Fish Oil No 1,200 mg, Jah jina 01-12 Route: PO, l 14:00: Drug form: [place] 00 CAP, Daily, Dosing Weight 109.091, kg, Start date: 01/12/17 9:00:00 CDT, Duration: 30 day, Stop date: 02/10/17 9:00:00 CDT MaxEPA No Notes: Memoria 01-12 (Same as: l 14:00: MaxEPA, [place] 00 [place] 3 fish oil ) [facility] No 1 tab, [facility] Silver 01-12 Route: PO, l Men's 14:00: Dosing [place] 00 Weight 109.091, kg, Daily, Start date: 01/12/17 9:00:00 CDT, Duration: 30 day, Stop date: 02/10/17 9:00:00 CDT Amlodipine No Notes: Memor ia 01-12 (Same as: l 14:00: Norvasc) [place] Aspirin No Notes: (Do Jah jina 01-12 Not Crush) l 14:00: Do not Kush 00 crush or chew. multivitami No Notes: Jah jina n 01-12 (Same l 14:00: as:Thera) [place] 00 WASTE: F/P - Black; E - Municipal Trash Bin Take with food. Fish Oil No 1,200 mg, Jah jina 01-12 Route: PO, l 14:00: Drug form: [place] 00 CAP, Daily, Dosing Weight 109.091, kg, Start date: 01/12/17 9:00:00 CDT, Duration: 30 day, Stop date: 02/10/17 9:00:00 CDT MaxEPA No Notes: Memoria 01-12 (Same as: l 14:00: MaxEPA, [place] 3 fish oil ) [facility] tab, Memoria Silver 01-12 Route: PO, l Men's 14:00: Dosing [place] 00 Weight 109.091, kg, Daily, Start date: 01/12/17 9:00:00 CDT, Duration: 30 day, Stop date: 02/10/17 9:00:00 CDT Amlodipine No Notes: Memor ia 01-12 (Same as: l 14:00: Norvasc) [place] 00 Aspirin No Notes: (Do Jah jina 01-12 Not Crush) l 14:00: Do not crush or chew. multivitami No Notes: Jah jina n 01-12 (Same l 14:00: as:Thera) WASTE: F/P - Black; E - Municipal Trash Bin Take with food. Fish Oil No 1,200 mg, Jah jina 01-12 Route: PO, l 14:00: Drug form: [place] 00 CAP, Daily, Dosing Weight 109.091, kg, Start date: 01/12/17 9:00:00 CDT, Duration: 30 day, Stop date: 02/10/17 9:00:00 CDT MaxEPA 0 No Notes: Memoria 01-12 (Same as: l 14:00: MaxEPA, [place] 3 fish oil ) [facility] tab, Memoria Silver 01-12 Route: PO, l Men's 14:00: Dosing [place] 00 Weight 109.091, kg, Daily, Start date: 01/12/17 9:00:00 CDT, Duration: 30 day, Stop date: 02/10/17 9:00:00 CDT Amlodipine 0 No Notes: Memor ia 01-12 (Same as: l 14:00: Norvasc) [place] 00 Aspirin No Notes: (Do Jah jina 01-12 Not Crush) l 14:00: Do not [place] 00 crush or chew. multivitami No Notes: Jah jina n 01-12 (Same l 14:00: as:Thera) [place] 00 WASTE: F/P - Black; E - Municipal Trash Bin Take with food. Fish Oil No 1,200 mg, Jah jina 01-12 Route: PO, l 14:00: Drug form: [place] 00 CAP, Daily, Dosing Weight 109.091, kg, Start date: 01/12/17 9:00:00 CDT, Duration: 30 day, Stop date: 02/10/17 9:00:00 CDT MaxEPA No Notes: Memoria 01-12 (Same as: l 14:00: MaxEPA, [place] 00 [place] 3 fish oil ) [facility] tab, Memoria Silver 01-12 Route: PO, l Men's 14:00: Dosing Weight 109.091, kg, Daily, Start date: 01/12/17 9:00:00 CDT, Duration: 30 day, Stop date: 02/10/17 9:00:00 CDT Amlodipine 0 No Notes: Memor ia 01-12 (Same as: l 14:00: Norvasc) [place] 00 Aspirin 0 No Notes: (Do Jah jina 01-12 Not Crush) l 14:00: Do not [place] 00 crush or chew. multivitami No Notes: Jah jina n 01-12 (Same l 14:00: as:Thera) [place] 00 WASTE: F/P - Black; E - Municipal Trash Bin Take with food. Fish Oil No 1,200 mg, Jah jina 01-12 Route: PO, l 14:00: Drug form: [place] 00 CAP, Daily, Dosing Weight 109.091, kg, Start date: 01/12/17 9:00:00 CDT, Duration: 30 day, Stop date: 02/10/17 9:00:00 CDT MaxEPA No Notes: Memoria 01-12 (Same as: l 14:00: MaxEPA, Kush 00 [place] 3 fish oil ) [facility] No [facility] tab, [facility] Silver 01-12 Route: PO, l Men's 14:00: Dosing [place] 00 Weight 109.091, kg, Daily, Start date: 01/12/17 9:00:00 CDT, Duration: 30 day, Stop date: 02/10/17 9:00:00 CDT Amlodipine No Notes: Memor ia 01-12 (Same as: l 14:00: Norvasc) [place] 00 Aspirin No Notes: (Do Jah jina 01-12 Not Crush) l 14:00: Do not Kush 00 crush or chew. multivitami No Notes: Jah jina n 01-12 (Same l 14:00: as:Thera) Kush 00 WASTE: F/P - Black; E - Municipal Trash Bin Take with food. Fish Oil No 1,200 mg, Jah jina 01-12 Route: PO, l 14:00: Drug form: [place] 00 CAP, Daily, Dosing Weight 109.091, kg, Start date: 01/12/17 9:00:00 CDT, Duration: 30 day, Stop date: 02/10/17 9:00:00 CDT MaxEPA 0 No Notes: Memoria 01-12 (Same as: l 14:00: MaxEPA, Kush 00 [place] 3 fish oil ) [facility] No [facility] tab, [facility] Silver 01-12 Route: PO, l Men's 14:00: Dosing [place] 00 Weight 109.091, kg, Daily, Start date: 01/12/17 9:00:00 CDT, Duration: 30 day, Stop date: 02/10/17 9:00:00 CDT Amlodipine 0 No Notes: Memor ia 01-12 (Same as: l 14:00: Norvasc) Kush 00 Aspirin 0 No Notes: (Do Jah jina 01-12 Not Crush) l 14:00: Do not Kush 00 crush or chew. multivitami No Notes: Jah jina n 01-12 (Same l 14:00: as:Thera) Kush 00 WASTE: F/P - Black; E - Municipal Trash Bin Take with food. Fish Oil No 1,200 mg, Jah jina 01-12 Route: PO, l 14:00: Drug form: [place] 00 CAP, Daily, Dosing Weight 109.091, kg, Start date: 01/12/17 9:00:00 CDT, Duration: 30 day, Stop date: 02/10/17 9:00:00 CDT MaxEPA No Notes: Memoria 01-12 (Same as: l 14:00: MaxEPA, [place] 00 [place] 3 fish oil ) [facility] No [facility] tab, [facility] Silver 01-12 Route: PO, l Men[facility] 14:00: Dosing [place] 00 Weight 109.091, kg, Daily, Start date: [...] - Municipal Trash Bin Take with food. Fish Oil No 1,200 mg, Jah jina 01-12 Route: PO, l 14:00: Drug form: Kush 00 CAP, Daily, Dosing Weight 109.091, kg, Start date: 01/12/17 9:00:00 CDT, Duration: 30 day, Stop date: 02/10/17 9:00:00 CDT MaxEPA No Notes: Memoria 01-12 (Same as: l 14:00: MaxEPA, [place] 00 [place] 3 fish oil ) [facility] No [facility] tab, [facility] Silver 01-12 Route: PO, l Men's 14:00: Dosing [place] Weight 109.091, kg, Daily, Start date: 01/12/17 9:00:00 CDT, Duration: 30 day, Stop date: 02/10/17 9:00:00 CDT Amlodipine No Notes: Memor ia 01-12 (Same as: l 14:00: Norvasc) [place] Aspirin No Notes: (Do Jah jina 01-12 Not Crush) l 14:00: Do not Kush 00 crush or chew. multivitami No Notes: Jah jina n 01-12 (Same l 14:00: as:Thera) [place] WASTE: F/P - Black; E - Municipal Trash Bin Take with food. Fish Oil No 1,200 mg, Jah jina 01-12 Route: PO, l 14:00: Drug form: Kush 00 CAP, Daily, Dosing Weight 109.091, kg, Start date: 01/12/17 9:00:00 CDT, Duration: 30 day, Stop date: 02/10/17 9:00:00 CDT MaxEPA No Notes: Memoria 01-12 (Same as: l 14:00: MaxEPA, [place] 3 fish oil ) [facility] No [facility] tab, [facility] Silver 01-12 Route: PO, l Men's 14:00: Dosing Kush 00 Weight 109.091, kg, Daily, Start date: 01/12/17 9:00:00 CDT, Duration: 30 day, Stop date: 02/10/17 9:00:00 CDT Amlodipine No Notes: Memor ia 01-12 (Same as: l 14:00: Norvasc) [place] Aspirin No Notes: (Do Jah jina 01-12 Not Crush) l 14:00: Do not [place] 00 crush or chew. multivitami No Notes: Jah jina n 01-12 (Same l 14:00: as:Thera) [place] 00 WASTE: F/P - Black; E - Municipal Trash Bin Take with food. Fish Oil No 1,200 mg, Jah jina 01-12 Route: PO, l 14:00: Drug form: [place] 00 CAP, Daily, Dosing Weight 109.091, kg, Start date: 01/12/17 9:00:00 CDT, Duration: 30 day, Stop date: 02/10/17 9:00:00 CDT MaxEPA No Notes: Memoria 01-12 (Same as: l 14:00: MaxEPA, [place] 3 fish oil ) [facility] No [facility] tab, [facility] Silver 01-12 Route: PO, l Men's 14:00: Dosing Weight 109.091, kg, Daily, Start date: 01/12/17 9:00:00 CDT, Duration: 30 day, Stop date: 02/10/17 9:00:00 CDT Amlodipine No Notes: Memor ia 01-12 (Same as: l 14:00: Norvasc) [place] 00 Aspirin No Notes: (Do Jah jina 01-12 Not Crush) l 14:00: Do not crush or chew. multivitami No Notes: Jah jina n 01-12 (Same l 14:00: as:Thera) WASTE: F/P - Black; E - Municipal Trash Bin Take with food. Fish Oil No 1,200 mg, Jah jina 01-12 Route: PO, l 14:00: Drug form: [place] 00 CAP, Daily, Dosing Weight 109.091, kg, Start date: 01/12/17 9:00:00 CDT, Duration: 30 day, Stop date: 02/10/17 9:00:00 CDT MaxEPA No Notes: Memoria 01-12 (Same as: l 14:00: MaxEPA, [place] 00 [place] 3 fish oil ) [facility] No [facility] tab, [facility] Silver 01-12 Route: PO, l Men's 14:00: Dosing Weight 109.091, kg, Daily, Start date: 01/12/17 9:00:00 CDT, Duration: 30 day, Stop date: 02/10/17 9:00:00 CDT Amlodipine No Notes: Memor ia 01-12 (Same as: l 14:00: Norvasc) Aspirin No Notes: (Do Jah jina 01-12 Not Crush) l 14:00: Do not [place] 00 crush or chew. multivitami No Notes: Jah jina n 01-12 (Same l 14:00: as:Thera) [place] 00 WASTE: F/P - Black; E - Municipal Trash Bin Take with food. Fish Oil No 1,200 mg, Jah jina 01-12 Route: PO, l 14:00: Drug form: Kush 00 CAP, Daily, Dosing Weight 109.091, kg, Start date: 01/12/17 9:00:00 CDT, Duration: 30 day, Stop date: 02/10/17 9:00:00 CDT MaxEPA No Notes: Memoria 01-12 (Same as: l 14:00: MaxEPA, [place] 00 [place] 3 fish oil ) [facility] No [facility] tab, [facility] Silver 01-12 Route: PO, l Men's 14:00: Dosing Weight 109.091, kg, Daily, Start date: 01/12/17 9:00:00 CDT, Duration: 30 day, Stop date: 02/10/17 9:00:00 CDT Amlodipine No Notes: Memor ia 01-12 (Same as: l 14:00: Norvasc) [place] 00 Aspirin No Notes: (Do Jah jina 01-12 Not Crush) l 14:00: Do not Kush 00 crush or chew. multivitami No Notes: Jah jina n 01-12 (Same l 14:00: as:Thera) Kush 00 WASTE: F/P - Black; E - Municipal Trash Bin Take with food. Fish Oil No 1,200 mg, Jah jina 01-12 Route: PO, l 14:00: Drug form: Kush 00 CAP, Daily, Dosing Weight 109.091, kg, Start date: 01/12/17 9:00:00 CDT, Duration: 30 day, Stop date: 02/10/17 9:00:00 CDT MaxEPA No Notes: Memoria 01-12 (Same as: l 14:00: MaxEPA, [place] 00 [place] 3 fish oil ) [facility] No [facility] tab, [facility] Silver 01-12 Route: PO, l Men's 14:00: Dosing Kush Weight 109.091, kg, Daily, Start date: 01/12/17 9:00:00 CDT, Duration: 30 day, Stop date: 02/10/17 9:00:00 CDT Amlodipine No Notes: Memor ia 01-12 (Same as: l 14:00: Norvasc) [place] 00 Aspirin No Notes: (Do Jah jina 01-12 Not Crush) l 14:00: Do not [place] 00 crush or chew. multivitami No Notes: Jah jina n 01-12 (Same l 14:00: as:Thera) Kush 00 WASTE: F/P - Black; E - Municipal Trash Bin Take with food. Fish Oil No 1,200 mg, Jah jina 01-12 Route: PO, l 14:00: Drug form: [place] 00 CAP, Daily, Dosing Weight 109.091, kg, Start date: 01/12/17 9:00:00 CDT, Duration: 30 day, Stop date: 02/10/17 9:00:00 CDT MaxEPA 0 No Notes: Memoria 01-12 (Same as: l 14:00: MaxEPA, [place] 3 fish oil ) [facility] No [facility] tab, [facility] Silver 01-12 Route: PO, l Men's 14:00: Dosing [place] 00 Weight 109.091, kg, Daily, Start date: 01/12/17 9:00:00 CDT, Duration: 30 day, Stop date: 02/10/17 9:00:00 CDT Amlodipine 0 No Notes: Memor ia 01-12 (Same as: l 14:00: Norvasc) [place] Aspirin No Notes: (Do Jah jina 01-12 Not Crush) l 14:00: Do not Kush 00 crush or chew. multivitami No Notes: Jah jina n 01-12 (Same l 14:00: as:Thera) [place] 00 WASTE: F/P - Black; E - Municipal Trash Bin Take with food. Fish Oil No 1,200 mg, Jah jina 01-12 Route: PO, l 14:00: Drug form: [place] 00 CAP, Daily, Dosing Weight 109.091, kg, Start date: 01/12/17 9:00:00 CDT, Duration: 30 day, Stop date: 02/10/17 9:00:00 CDT MaxEPA No Notes: Memoria 01-12 (Same as: l 14:00: MaxEPA, Kush 00 [place] 3 fish oil ) [facility] No [facility] tab, [facility] Silver 01-12 Route: PO, l Men's 14:00: Dosing [place] 00 Weight 109.091, kg, Daily, Start date: 01/12/17 9:00:00 CDT, Duration: 30 day, Stop date: 02/10/17 9:00:00 CDT Amlodipine No Notes: Memor ia 01-12 (Same as: l 14:00: Norvasc) [place] 00 Aspirin No Notes: (Do Jah jina 01-12 Not Crush) l 14:00: Do not Kush 00 crush or chew. multivitami No Notes: Jah jina n 01-12 (Same l 14:00: as:Thera) [place] 00 WASTE: F/P - Black; E - Municipal Trash Bin Take with food. Fish Oil No 1,200 mg, Jah jina 01-12 Route: PO, l 14:00: Drug form: [place] 00 CAP, Daily, Dosing Weight 109.091, kg, Start date: 01/12/17 9:00:00 CDT, Duration: 30 day, Stop date: 02/10/17 9:00:00 CDT MaxEPA No Notes: Memoria 01-12 (Same as: l 14:00: MaxEPA, [place] 00 [place] 3 fish oil ) [facility] No [facility] tab, [facility] Silver 01-12 Route: PO, l Men's 14:00: Dosing Weight 109.091, kg, Daily, Start date: 01/12/17 9:00:00 CDT, Duration: 30 day, Stop date: 02/10/17 9:00:00 CDT Amlodipine No Notes: Memor ia 01-12 (Same as: l 14:00: Norvasc) [place] 00 Aspirin No Notes: (Do Jah jina 01-12 Not Crush) l 14:00: Do not Kush 00 crush or chew. multivitami No Notes: Jah jina n 01-12 (Same l 14:00: as:Thera) WASTE: F/P - Black; E - Municipal Trash Bin Take with food. acetaminoph No Notes: Max Memoria en 01-12 acetaminop l 02:00: hen 4000 [place] 00 mg/day (4 gm/day). (Same as: Tylenol Extra Strength) Lopressor No 50 mg, Memori a 01-12 Route: PO, l 02:00: Drug form: [place] 00 ERTAB, Bedtime, Dosing Weight 109.091, kg, Start date: 01/11/17 21:00:00 CDT, Duration: 30 day, Stop date: 02/09/17 21:00:00 CDT acetaminoph No Notes: Max [facility] en 01-12 acetaminop l 02:00: hen 4000 [place] 00 mg/day (4 gm/day). (Same as: Tylenol Extra Strength) Lopressor No 50 mg, Memori a 01-12 Route: PO, l 02:00: Drug form: [place] 00 ERTAB, Bedtime, Dosing Weight 109.091, kg, Start date: 01/11/17 21:00:00 CDT, Duration: 30 day, Stop date: 02/09/17 21:00:00 CDT acetaminoph No Notes: Max [facility]oria en 01-12 acetaminop l 02:00: hen 4000 [place] 00 mg/day (4 gm/day). (Same as: Tylenol Extra Strength) Lopressor No 50 mg, Memori a 01-12 Route: PO, l 02:00: Drug form: [place] 00 ERTAB, Bedtime, Dosing Weight 109.091, kg, Start date: 01/11/17 21:00:00 CDT, Duration: 30 day, Stop date: 02/09/17 21:00:00 CDT acetaminoph 0 No Notes: Max Memoria en - acetaminop l 02:00: hen 4000 [place] 00 mg/day (4 gm/day). (Same as: Tylenol Extra Strength) Lopressor No 50 mg, Memori a 01-12 Route: PO, l 02:00: Drug form: [place] 00 ERTAB, Bedtime, Dosing Weight 109.091, kg, Start date: 01/11/17 21:00:00 CDT, Duration: 30 day, Stop date: 02/09/17 21:00:00 CDT acetaminoph 0 No Notes: Max Memoria en - acetaminop l 02:00: hen 4000 [place] 00 mg/day (4 gm/day). (Same as: Tylenol Extra Strength) Lopressor No 50 mg, Memori a 01-12 Route: PO, l 02:00: Drug form: [place] 00 ERTAB, Bedtime, Dosing Weight 109.091, kg, Start date: 01/11/17 21:00:00 CDT, Duration: 30 day, Stop date: 02/09/17 21:00:00 CDT acetaminoph 0 No Notes: Max Memoria en - acetaminop l 02:00: hen 4000 [place] 00 mg/day (4 gm/day). (Same as: Tylenol Extra Strength) Lopressor No 50 mg, Memori a 01-12 Route: PO, l 02:00: Drug form: [place] 00 ERTAB, Bedtime, Dosing Weight 109.091, kg, Start date: 01/11/17 21:00:00 CDT, Duration: 30 day, Stop date: 02/09/17 21:00:00 CDT acetaminoph 2016-0 No Notes: Max Memoria en - acetaminop l 02:00: hen 4000 [place] 00 mg/day (4 gm/day). (Same as: Tylenol Extra Strength) Lopressor 2016-0 No 50 mg, Memori a 01-12 Route: PO, l 02:00: Drug form: [place] 00 ERTAB, Bedtime, Dosing Weight 109.091, kg, Start date: 01/11/17 21:00:00 CDT, Duration: 30 day, Stop date: 02/09/17 21:00:00 CDT acetaminoph 0 No Notes: Max [facility] en 01-12 acetaminop l 02:00: hen 4000 [place] 00 mg/day (4 gm/day). (Same as: Tylenol Extra Strength) acetaminoph 0 No Notes: Max [facility] en 01-12 acetaminop l 02:00: hen 4000 [place] 00 mg/day (4 gm/day). (Same as: Tylenol Extra Strength) Lopressor 2016-0 No 50 mg, Memori a 01-12 Route: PO, l 02:00: Drug form: [place] 00 ERTAB, Bedtime, Dosing Weight 109.091, kg, Start date: 01/11/17 21:00:00 CDT, Duration: 30 day, Stop date: 02/09/17 21:00:00 CDT Lopressor 2016-0 No 50 mg, Memori a 01-12 Route: PO, l 02:00: Drug form: [place] 00 ERTAB, Bedtime, Dosing Weight 109.091, kg, Start date: 01/11/17 21:00:00 CDT, Duration: 30 day, Stop date: 02/09/17 21:00:00 CDT acetaminoph 0 No Notes: Max [facility] en 01-12 acetaminop l 02:00: hen 4000 [place] 00 mg/day (4 gm/day). (Same as: Tylenol Extra Strength) Lopressor 2016-0 No 50 mg, Memori a 01-12 Route: PO, l 02:00: Drug form: [place] 00 ERTAB, Bedtime, Dosing Weight 109.091, kg, Start date: 01/11/17 21:00:00 CDT, Duration: 30 day, Stop date: 02/09/17 21:00:00 CDT acetaminoph 0 No Notes: Max [facility]oria en - acetaminop l 02:00: hen 4000 [place] 00 mg/day (4 gm/day). (Same as: Tylenol Extra Strength) Lopressor 0 No 50 mg, Memori a 01-12 Route: PO, l 02:00: Drug form: [place] 00 ERTAB, Bedtime, Dosing Weight 109.091, kg, Start date: 01/11/17 21:00:00 CDT, Duration: 30 day, Stop date: 02/09/17 21:00:00 CDT acetaminoph 0 No Notes: Max [facility] en 01-12 acetaminop l 02:00: hen 4000 [place] 00 mg/day (4 gm/day). (Same as: Tylenol Extra Strength) Lopressor No 50 mg, Memori a 01-12 Route: PO, l 02:00: Drug form: [place] 00 ERTAB, Bedtime, Dosing Weight 109.091, kg, Start date: 01/11/17 21:00:00 CDT, Duration: 30 day, Stop date: 02/09/17 21:00:00 CDT acetaminoph 0 No Notes: Max [facility] en 01-12 acetaminop l 02:00: hen 4000 [place] 00 mg/day (4 gm/day). (Same as: Tylenol Extra Strength) Lopressor No 50 mg, Memori a 01-12 Route: PO, l 02:00: Drug form: [place] 00 ERTAB, Bedtime, Dosing Weight 109.091, kg, Start date: 01/11/17 21:00:00 CDT, Duration: 30 day, Stop date: 02/09/17 21:00:00 CDT acetaminoph 0 No Notes: Max [facility] en 01-12 acetaminop l 02:00: hen 4000 [place] 00 mg/day (4 gm/day). (Same as: Tylenol Extra Strength) Lopressor 0 No 50 mg, Memori a 01-12 Route: PO, l 02:00: Drug form: [place] 00 ERTAB, Bedtime, Dosing Weight 109.091, kg, Start date: 01/11/17 21:00:00 CDT, Duration: 30 day, Stop date: 02/09/17 21:00:00 CDT acetaminoph No Notes: Max [facility] en 01-12 acetaminop l 02:00: hen 4000 [place] 00 mg/day (4 gm/day). (Same as: Tylenol Extra Strength) Lopressor 0 No 50 mg, Memori a 01-12 Route: PO, l 02:00: Drug form: [place] 00 ERTAB, Bedtime, Dosing Weight 109.091, kg, Start date: 01/11/17 21:00:00 CDT, Duration: 30 day, Stop date: 02/09/17 21:00:00 CDT acetaminoph No Notes: Max [facility] en 01-12 acetaminop l 02:00: hen 4000 [place] 00 mg/day (4 gm/day). (Same as: Tylenol Extra Strength) Lopressor No 50 mg, Memori a 01-12 Route: PO, l 02:00: Drug form: [place] 00 ERTAB, Bedtime, Dosing Weight 109.091, kg, Start date: 01/11/17 21:00:00 CDT, Duration: 30 day, Stop date: 02/09/17 21:00:00 CDT acetaminoph No Notes: Max [facility] en 01-12 acetaminop l 02:00: hen 4000 [place] 00 mg/day (4 gm/day). (Same as: Tylenol Extra Strength) Lopressor 0 No 50 mg, Memori a 01-12 Route: PO, l 02:00: Drug form: [place] 00 ERTAB, Bedtime, Dosing Weight 109.091, kg, Start date: 01/11/17 21:00:00 CDT, Duration: 30 day, Stop date: 02/09/17 21:00:00 CDT acetaminoph 0 No Notes: Max [facility] en 01-12 acetaminop l 02:00: hen 4000 [place] 00 mg/day (4 gm/day). (Same as: Tylenol Extra Strength) acetaminoph No Notes: Max [facility] en 01-12 acetaminop l 02:00: hen 4000 [place] 00 mg/day (4 gm/day). (Same as: Tylenol Extra Strength) Lopressor 2017-0 No 50 mg, Memori a 01-12 Route: PO, l 02:00: Drug form: [place] 00 ERTAB, Bedtime, Dosing Weight 109.091, kg, Start date: 01/11/17 21:00:00 CDT, Duration: 30 day, Stop date: 02/09/17 21:00:00 CDT Lopressor No 50 mg, Memori a 01-12 Route: PO, l 02:00: Drug form: [place] 00 ERTAB, Bedtime, Dosing Weight 109.091, kg, Start date: 01/11/17 21:00:00 CDT, Duration: 30 day, Stop date: 02/09/17 21:00:00 CDT acetaminoph 2016-0 No Notes: Max [facility] en 01-12 acetaminop l 02:00: hen 4000 [place] 00 mg/day (4 gm/day). (Same as: Tylenol Extra Strength) Lopressor No 50 mg, Memori a 01-12 Route: PO, l 02:00: Drug form: [place] 00 ERTAB, Bedtime, Dosing Weight 109.091, kg, Start date: 01/11/17 21:00:00 CDT, Duration: 30 day, Stop date: 02/09/17 21:00:00 CDT acetaminoph 2016-0 No Notes: Max [facility] en 01-12 acetaminop l 02:00: hen 4000 [place] 00 mg/day (4 gm/day). (Same as: Tylenol Extra Strength) Lopressor 0 No 50 mg, Memori a 01-12 Route: PO, l 02:00: Drug form: [place] 00 ERTAB, Bedtime, Dosing Weight 109.091, kg, Start date: 01/11/17 21:00:00 CDT, Duration: 30 day, Stop date: 02/09/17 21:00:00 CDT acetaminoph 2016-0 No Notes: Max [facility]oria en - acetaminop l 02:00: hen 4000 [place] 00 mg/day (4 gm/day). (Same as: Tylenol Extra Strength) Lopressor 0 No 50 mg, Memori a 01-12 Route: PO, l 02:00: Drug form: [place] 00 ERTAB, Bedtime, Dosing Weight 109.091, kg, Start date: 01/11/17 21:00:00 CDT, Duration: 30 day, Stop date: 02/09/17 21:00:00 CDT acetaminoph 2016-0 No Notes: Max [facility] en 01-12 acetaminop l 02:00: hen 4000 [place] 00 mg/day (4 gm/day). (Same as: Tylenol Extra Strength) Lopressor No 50 mg, Memori a 01-12 Route: PO, l 02:00: Drug form: [place] 00 ERTAB, Bedtime, Dosing Weight 109.091, kg, Start date: 01/11/17 21:00:00 CDT, Duration: 30 day, Stop date: 02/09/17 21:00:00 CDT acetaminoph 0 No Notes: Max [facility] en 01-12 acetaminop l 02:00: hen 4000 [place] 00 mg/day (4 gm/day). (Same as: Tylenol Extra Strength) Lopressor No 50 mg, Memori a 01-12 Route: PO, l 02:00: Drug form: [place] 00 ERTAB, Bedtime, Dosing Weight 109.091, kg, Start date: 01/11/17 21:00:00 CDT, Duration: 30 day, Stop date: 02/09/17 21:00:00 CDT acetaminoph 0 No Notes: Max [facility] en 01-12 acetaminop l 02:00: hen 4000 [place] 00 mg/day (4 gm/day). (Same as: Tylenol Extra Strength) Lopressor No 50 mg, Memori a 01-12 Route: PO, l 02:00: Drug form: [place] 00 ERTAB, Bedtime, Dosing Weight 109.091, kg, Start date: 01/11/17 21:00:00 CDT, Duration: 30 day, Stop date: 02/09/17 21:00:00 CDT acetaminoph 0 No Notes: Max [facility] en 01-12 acetaminop l 02:00: hen 4000 [place] 00 mg/day (4 gm/day). (Same as: Tylenol Extra Strength) Lopressor No 50 mg, Memori a 01-12 Route: PO, l 02:00: Drug form: [place] 00 ERTAB, Bedtime, Dosing Weight 109.091, kg, Start date: 01/11/17 21:00:00 CDT, Duration: 30 day, Stop date: 02/09/17 21:00:00 CDT acetaminoph 0 No Notes: Max [facility] en 01-12 acetaminop l 02:00: hen 4000 [place] 00 mg/day (4 gm/day). (Same as: Tylenol Extra Strength) Lopressor 0 No 50 mg, Memori a 01-12 Route: PO, l 02:00: Drug form: [place] 00 ERTAB, Bedtime, Dosing Weight 109.091, kg, Start date: 01/11/17 21:00:00 CDT, Duration: 30 day, Stop date: 02/09/17 21:00:00 CDT acetaminoph 0 No Notes: Max [facility] en 01-12 acetaminop l 02:00: hen 4000 [place] 00 mg/day (4 gm/day). (Same as: Tylenol Extra Strength) Lopressor No 50 mg, Memori a 01-12 Route: PO, l 02:00: Drug form: [place] 00 ERTAB, Bedtime, Dosing Weight 109.091, kg, Start date: 01/11/17 21:00:00 CDT, Duration: 30 day, Stop date: 02/09/17 21:00:00 CDT acetaminoph 0 No Notes: Max [facility] en 01-12 acetaminop l 02:00: hen 4000 [place] 00 mg/day (4 gm/day). (Same as: Tylenol Extra Strength) Lopressor 0 No 50 mg, Memori a 01-12 Route: PO, l 02:00: Drug form: [place] 00 ERTAB, Bedtime, Dosing Weight 109.091, kg, Start date: 01/11/17 21:00:00 CDT, Duration: 30 day, Stop date: 02/09/17 21:00:00 CDT acetaminoph 0 No Notes: Max [facility] en 01-12 acetaminop l 02:00: hen 4000 [place] 00 mg/day (4 gm/day). (Same as: Tylenol Extra Strength) Lopressor 2017-0 No 50 mg, Memori a 01-12 Route: PO, l 02:00: Drug form: [place] 00 ERTAB, Bedtime, Dosing Weight 109.091, kg, Start date: 01/11/17 21:00:00 CDT, Duration: 30 day, Stop date: 02/09/17 21:00:00 CDT acetaminoph 2016-0 No Notes: Max [facility] en - acetaminop l 02:00: hen 4000 [place] 00 mg/day (4 gm/day). (Same as: Tylenol Extra Strength) Lopressor 0 No 50 mg, Memori a 01-12 Route: PO, l 02:00: Drug form: [place] 00 ERTAB, Bedtime, Dosing Weight 109.091, kg, Start date: 01/11/17 21:00:00 CDT, Duration: 30 day, Stop date: 02/09/17 21:00:00 CDT acetaminoph 0 No Notes: Max [facility] en 01-12 acetaminop l 02:00: hen 4000 [place] 00 mg/day (4 gm/day). (Same as: Tylenol Extra Strength) Lopressor 0 No 50 mg, Memori a 01-12 Route: PO, l 02:00: Drug form: [place] 00 ERTAB, Bedtime, Dosing Weight 109.091, kg, Start date: 01/11/17 21:00:00 CDT, Duration: 30 day, Stop date: 02/09/17 21:00:00 CDT acetaminoph 2016-0 No Notes: Max [facility] en 01-12 acetaminop l 02:00: hen 4000 [place] 00 mg/day (4 gm/day). (Same as: Tylenol Extra Strength) Lopressor 0 No 50 mg, Memori a 01-12 Route: PO, l 02:00: Drug form: [place] 00 ERTAB, Bedtime, Dosing Weight 109.091, kg, Start date: 01/11/17 21:00:00 CDT, Duration: 30 day, Stop date: 02/09/17 21:00:00 CDT acetaminoph 2016-0 No Notes: Max [facility] en - acetaminop l 02:00: hen 4000 Kush 00 mg/day (4 gm/day). (Same as: Tylenol Extra Strength) Lopressor No 50 mg, Memori a 01-12 Route: PO, l 02:00: Drug form: [place] 00 ERTAB, Bedtime, Dosing Weight 109.091, kg, Start date: 01/11/17 21:00:00 CDT, Duration: 30 day, Stop date: 02/09/17 21:00:00 CDT acetaminoph No Notes: Max [facility] en - acetaminop l 02:00: hen 4000 [place] 00 mg/day (4 gm/day). (Same as: Tylenol Extra Strength) Lopressor No 50 mg, Memori a 01-12 Route: PO, l 02:00: Drug form: [place] 00 ERTAB, Bedtime, Dosing Weight 109.091, kg, Start date: 01/11/17 21:00:00 CDT, Duration: 30 day, Stop date: 02/09/17 21:00:00 CDT acetaminoph No Notes: Max [facility] en - acetaminop l 02:00: hen 4000 Kush 00 mg/day (4 gm/day). (Same as: Tylenol Extra Strength) Lopressor No 50 mg, Memori a 01-12 Route: PO, l 02:00: Drug form: [place] 00 ERTAB, Bedtime, Dosing Weight 109.091, kg, Start date: 01/11/17 21:00:00 CDT, Duration: 30 day, Stop date: 02/09/17 21:00:00 CDT Lopressor No Notes: Memori a 8-08 (Same as: l 22:55: Lopressor) Kush Lopressor No Notes: Memori a 8-08 (Same as: l 22:55: Lopressor) Kush Lopressor No Notes: Memori a 8-08 (Same as: l 22:55: Lopressor) Kush Lopressor No Notes: Memori a 8-08 (Same as: l 22:55: Lopressor) Kush Lopressor No Notes: Memori a 8-08 (Same as: l 22:55: Lopressor) Kush Lopressor 2017-0 No Notes: Memori a 8-08 (Same as: l 22:55: Lopressor) [place] 00 Lopressor No Notes: Memori a 8-08 (Same as: l 22:55: Lopressor) Kush Lopressor No Notes: Memori a 8-08 (Same as: l 22:55: Lopressor) Kush Lopressor No Notes: Memori a 8-08 (Same as: l 22:55: Lopressor) [place] Lopressor No Notes: Memori a 8-08 (Same as: l 22:55: Lopressor) [place] Lopressor No Notes: Memori a 8-08 (Same as: l 22:55: Lopressor) Kush Lopressor No Notes: Memori a 8-08 (Same as: l 22:55: Lopressor) [place] Lopressor No Notes: Memori a 8-08 (Same as: l 22:55: Lopressor) Kush Lopressor No Notes: Memori a 8-08 (Same as: l 22:55: Lopressor) Kush Lopressor No Notes: Memori a 8-08 (Same as: l 22:55: Lopressor) Kush Lopressor No Notes: Memori a 8-08 (Same as: l 22:55: Lopressor) Kush Lopressor No Notes: Memori a 8-08 (Same as: l 22:55: Lopressor) Kush Lopressor No Notes: Memori a 8-08 (Same as: l 22:55: Lopressor) Kush Lopressor No Notes: Memori a 8-08 (Same as: l 22:55: Lopressor) Kush Lopressor 0 No Notes: Memori a 8-08 (Same as: l 22:55: Lopressor) Kush Lopressor No Notes: Memori a 8-08 (Same as: l 22:55: Lopressor) [place] Lopressor No Notes: Memori a 8-08 (Same as: l 22:55: Lopressor) Kush Lopressor No Notes: Memori a 8-08 (Same as: l 22:55: Lopressor) [place] 00 Lopressor No Notes: Memori a 8-08 (Same as: l 22:55: Lopressor) [place] 00 Lopressor No Notes: Memori a 8-08 (Same as: l 22:55: Lopressor) Kush 00 Lopressor No Notes: Memori a 8-08 (Same as: l 22:55: Lopressor) Kush 00 Lopressor No Notes: Memori a 8-08 (Same as: l 22:55: Lopressor) Kush Lopressor No Notes: Memori a 8-08 (Same as: l 22:55: Lopressor) [place] Lopressor No Notes: Memori a 8-08 (Same as: l 22:55: Lopressor) Kush Lopressor No Notes: Memori a 8-08 (Same as: l 22:55: Lopressor) [place] 00 Lopressor No Notes: Memori a 8-08 (Same as: l 22:55: Lopressor) [place] 00 Lopressor No Notes: Memori a 8-08 (Same as: l 22:55: Lopressor) [place] 00 Lopressor No Notes: Memori a 8-08 (Same as: l 22:55: Lopressor) [place] 00 Lopressor No Notes: Memori a 8-08 (Same as: l 22:55: Lopressor) [place] 00 Lopressor No Notes: Memori a 8-08 (Same as: l 22:55: Lopressor) [place] 00 Lopressor No Notes: Memori a 8-08 (Same as: l 22:55: Lopressor) [place] 00 Docusate No Notes: Memoria 8-08 (Same as: l 22:00: Colace) [place] 00 (Do Not Crush) Docusate No Notes: Memoria 8-08 (Same as: l 22:00: Colace) [place] 00 (Do Not Crush) Docusate No Notes: Memoria 8-08 (Same as: l 22:00: Colace) [place] 00 (Do Not Crush) Docusate No Notes: Memoria 8-08 (Same as: l 22:00: Colace) [place] 00 (Do Not Crush) Docusate No Notes: Memoria 8-08 (Same as: l 22:00: Colace) [place] 00 (Do Not Crush) Docusate No Notes: Memoria 8-08 (Same as: l 22:00: Colace) [place] 00 (Do Not Crush) Docusate No Notes: Memoria 8-08 (Same as: l 22:00: Colace) [place] 00 (Do Not Crush) Docusate No Notes: Memoria 8-08 (Same as: l 22:00: Colace) [place] 00 (Do Not Crush) Docusate No Notes: Memoria 8-08 (Same as: l 22:00: Colace) [place] 00 (Do Not Crush) Docusate No Notes: Memoria 8-08 (Same as: l 22:00: Colace) [place] 00 (Do Not Crush) Docusate No Notes: Memoria 8-08 (Same as: l 22:00: Colace) [place] 00 (Do Not Crush) Docusate No Notes: Memoria 8-08 (Same as: l 22:00: Colace) [place] 00 (Do Not Crush) Docusate No Notes: Memoria 8-08 (Same as: l 22:00: Colace) [place] 00 (Do Not Crush) Docusate No Notes: Memoria 8-08 (Same as: l 22:00: Colace) [place] 00 (Do Not Crush) Docusate No Notes: Memoria 8-08 (Same as: l 22:00: Colace) [place] 00 (Do Not Crush) Docusate No Notes: Memoria 8-08 (Same as: l 22:00: Colace) [place] 00 (Do Not Crush) Docusate No Notes: Memoria 8-08 (Same as: l 22:00: Colace) [place] 00 (Do Not Crush) Docusate No Notes: Memoria 8-08 (Same as: l 22:00: Colace) [place] 00 (Do Not Crush) Docusate No Notes: Memoria 8-08 (Same as: l 22:00: Colace) [place] 00 (Do Not Crush) Docusate No Notes: Memoria 8-08 (Same as: l 22:00: Colace) [place] 00 (Do Not Crush) Docusate No Notes: Memoria 8-08 (Same as: l 22:00: Colace) [place] 00 (Do Not Crush) Docusate No Notes: Memoria 8-08 (Same as: l 22:00: Colace) [place] 00 (Do Not Crush) Docusate No Notes: Memoria 8-08 (Same as: l 22:00: Colace) [place] 00 (Do Not Crush) Docusate No Notes: Memoria 8-08 (Same as: l 22:00: Colace) [place] 00 (Do Not Crush) Docusate No Notes: Memoria 8-08 (Same as: l 22:00: Colace) [place] 00 (Do Not Crush) Docusate No Notes: Memoria 8-08 (Same as: l 22:00: Colace) [place] 00 (Do Not Crush) Docusate No Notes: Memoria 8-08 (Same as: l 22:00: Colace) [place] 00 (Do Not Crush) Docusate No Notes: Memoria 8-08 (Same as: l 22:00: Colace) [place] 00 (Do Not Crush) Docusate No Notes: Memoria 8-08 (Same as: l 22:00: Colace) [place] 00 (Do Not Crush) Docusate No Notes: Memoria 8-08 (Same as: l 22:00: Colace) [place] 00 (Do Not Crush) Docusate No Notes: Memoria 8-08 (Same as: l 22:00: Colace) [place] 00 (Do Not Crush) Docusate No Notes: Memoria 8-08 (Same as: l 22:00: Colace) [place] 00 (Do Not Crush) Docusate 0 No Notes: Memoria 8- (Same as: l 22:00: Colace) [place] 00 (Do Not Crush) Docusate No Notes: Memoria 8 (Same as: l 22:00: Colace) [place] 00 (Do Not Crush) Docusate No Notes: Memoria 8- (Same as: l 22:00: Colace) [place] 00 (Do Not Crush) Docusate No Notes: Memoria 8 (Same as: l 22:00: Colace) [place] 00 (Do Not Crush) Ondansetron 2016-0 No Notes: Jah jina 01-11 (Same as: l 21:00: Zofran) [place] 00 MEDICATION WASTE Product Size: 4 mg Product Wasted: ___ mg Ondansetron 2017-0 No Notes: Jah jina 01-11 (Same as: l 21:00: Zofran) [place] 00 MEDICATION WASTE Product Size: 4 mg Product Wasted: ___ mg Ondansetron 2017-0 No Notes: Jah jina 8 (Same as: l 21:00: Zofran) [place] 00 MEDICATION WASTE Product Size: 4 mg Product Wasted: ___ mg Ondansetron 2017-0 No Notes: Jah jina 01-11 (Same as: l 21:00: Zofran) [place] 00 MEDICATION WASTE Product Size: 4 mg Product Wasted: ___ mg Ondansetron 2017-0 No Notes: Jah jina 8 (Same as: l 21:00: Zofran) [place] 00 MEDICATION WASTE Product Size: 4 mg Product Wasted: ___ mg Ondansetron 2017-0 No Notes: Jah jina 8 (Same as: l 21:00: Zofran) [place] 00 MEDICATION WASTE Product Size: 4 mg Product Wasted: ___ mg Ondansetron 2017-0 No Notes: Jah jina 8 (Same as: l 21:00: Zofran) [place] 00 MEDICATION WASTE Product Size: 4 mg Product Wasted: ___ mg Ondansetron 2017-0 No Notes: Jah jina 01-11 (Same as: l 21:00: Zofran) [place] 00 MEDICATION WASTE Product Size: 4 mg Product Wasted: ___ mg Ondansetron 2017-0 No Notes: Jah jina 01-11 (Same as: l 21:00: Zofran) [place] 00 MEDICATION WASTE Product Size: 4 mg Product Wasted: ___ mg Ondansetron 2017-0 No Notes: Jah jina 01-11 (Same as: l 21:00: Zofran) [place] 00 MEDICATION WASTE Product Size: 4 mg Product Wasted: ___ mg Ondansetron 2017-0 No Notes: Jah jina 01-11 (Same as: l 21:00: Zofran) [place] 00 MEDICATION WASTE Product Size: 4 mg Product Wasted: ___ mg Ondansetron 2017-0 No Notes: Jah jina 01-11 (Same as: l 21:00: Zofran) [place] 00 MEDICATION WASTE Product Size: 4 mg Product Wasted: ___ mg Ondansetron 2017-0 No Notes: Jah jina 01-11 (Same as: l 21:00: Zofran) [place] 00 MEDICATION WASTE Product Size: 4 mg Product Wasted: ___ mg Ondansetron 2017-0 No Notes: Jah jina 01-11 (Same as: l 21:00: Zofran) [place] 00 MEDICATION WASTE Product Size: 4 mg Product Wasted: ___ mg Ondansetron 2017-0 No Notes: Jah jina 01-11 (Same as: l 21:00: Zofran) [place] 00 MEDICATION WASTE Product Size: 4 mg Product Wasted: ___ mg Ondansetron 2017-0 No Notes: Jah jina 8 (Same as: l 21:00: Zofran) [place] 00 MEDICATION WASTE Product Size: 4 mg Product Wasted: ___ mg Ondansetron 2017-0 No Notes: Jah jina 8- (Same as: l 21:00: Zofran) [place] 00 MEDICATION WASTE Product Size: 4 mg Product Wasted: ___ mg Ondansetron 2017-0 No Notes: Jah jina 8- (Same as: l 21:00: Zofran) [place] 00 MEDICATION WASTE Product Size: 4 mg Product Wasted: ___ mg Ondansetron 2017-0 No Notes: Jah jina 8- (Same as: l 21:00: Zofran) [place] 00 MEDICATION WASTE Product Size: 4 mg Product Wasted: ___ mg Ondansetron 2017-0 No Notes: Jah jina 8- (Same as: l 21:00: Zofran) [place] 00 MEDICATION WASTE Product Size: 4 mg Product Wasted: ___ mg Ondansetron 2017-0 No Notes: Jah jina 8 (Same as: l 21:00: Zofran) [place] 00 MEDICATION WASTE Product Size: 4 mg Product Wasted: ___ mg Ondansetron 2017-0 No Notes: Jah jina 8- (Same as: l 21:00: Zofran) [place] 00 MEDICATION WASTE Product Size: 4 mg Product Wasted: ___ mg Ondansetron 2017-0 No Notes: Jah jina 8- (Same as: l 21:00: Zofran) [place] 00 MEDICATION WASTE Product Size: 4 mg Product Wasted: ___ mg Ondansetron 2017-0 No Notes: Jah jina 8- (Same as: l 21:00: Zofran) [place] 00 MEDICATION WASTE Product Size: 4 mg Product Wasted: ___ mg Ondansetron 2017-0 No Notes: Jah jina 8- (Same as: l 21:00: Zofran) [place] 00 MEDICATION WASTE Product Size: 4 mg Product Wasted: ___ mg Ondansetron 2017-0 No Notes: Jah jina 8- (Same as: l 21:00: Zofran) [place] 00 MEDICATION WASTE Product Size: 4 mg Product Wasted: ___ mg Ondansetron 2017-0 No Notes: Jah jina 8 (Same as: l 21:00: Zofran) [place] 00 MEDICATION WASTE Product Size: 4 mg Product Wasted: ___ mg Ondansetron 2017-0 No Notes: Jah jina 01-11 (Same as: l 21:00: Zofran) [place] 00 MEDICATION WASTE Product Size: 4 mg Product Wasted: ___ mg Ondansetron 2017-0 No Notes: Jah jina 01-11 (Same as: l 21:00: Zofran) [place] 00 MEDICATION WASTE Product Size: 4 mg Product Wasted: ___ mg Ondansetron 2017-0 No Notes: Jah jina 01-11 (Same as: l 21:00: Zofran) [place] 00 MEDICATION WASTE Product Size: 4 mg Product Wasted: ___ mg Ondansetron 2017-0 No Notes: Jah jina 01-11 (Same as: l 21:00: Zofran) [place] 00 MEDICATION WASTE Product Size: 4 mg Product Wasted: ___ mg Ondansetron 2017-0 No Notes: Jah jina 01-11 (Same as: l 21:00: Zofran) [place] 00 MEDICATION WASTE Product Size: 4 mg Product Wasted: ___ mg Ondansetron 2017-0 No Notes: Jah jina 01-11 (Same as: l 21:00: Zofran) [place] 00 MEDICATION WASTE Product Size: 4 mg Product Wasted: ___ mg Ondansetron 2017-0 No Notes: Jah jina 8- (Same as: l 21:00: Zofran) [place] 00 MEDICATION WASTE Product Size: 4 mg Product Wasted: ___ mg Ondansetron 2017-0 No Notes: Jah jina 8 (Same as: l 21:00: Zofran) [place] 00 MEDICATION WASTE Product Size: 4 mg Product Wasted: ___ mg Ondansetron No Notes: Jah jina 01-11 (Same as: l 21:00: Zofran) [place] 00 MEDICATION WASTE Product Size: 4 mg Product Wasted: ___ mg Acetaminoph No Notes: Jah jina en 01-11 Infuse l 18:30: over 15 [place] 00 minutes Do not exceed 4gm/day of acetaminop hen MEDICATION WASTE Product Size: 1000 mg Product Wasted: ___ mg Acetaminoph No Notes: Jah jina en 01-11 Infuse l 18:30: over 15 [place] 00 minutes Do not exceed 4gm/day of acetaminop hen MEDICATION WASTE Product Size: 1000 mg Product Wasted: ___ mg Acetaminoph No Notes: Jah jina en 01-11 Infuse l 18:30: over 15 [place] 00 minutes Do not exceed 4gm/day of acetaminop hen MEDICATION WASTE Product Size: 1000 mg Product Wasted: ___ mg Acetaminoph No Notes: Jah jina en 01-11 Infuse l 18:30: over 15 [place] 00 minutes Do not exceed 4gm/day of acetaminop hen MEDICATION WASTE Product Size: 1000 mg Product Wasted: ___ mg Acetaminoph No Notes: Jah jina en 01-11 Infuse l 18:30: over 15 [place] 00 minutes Do not exceed 4gm/day of acetaminop hen MEDICATION WASTE Product Size: 1000 mg Product Wasted: ___ mg Acetaminoph No Notes: Jah jina en 01-11 Infuse l 18:30: over 15 [place] 00 minutes Do not exceed 4gm/day of acetaminop hen MEDICATION WASTE Product Size: 1000 mg Product Wasted: ___ mg Acetaminoph No Notes: Jah jina en 01-11 Infuse l 18:30: over 15 [place] 00 minutes Do not exceed 4gm/day of acetaminop hen MEDICATION WASTE Product Size: 1000 mg Product Wasted: ___ mg Acetaminoph No Notes: Jah jina en 01-11 Infuse l 18:30: over 15 [place] 00 minutes Do not exceed 4gm/day of acetaminop hen MEDICATION WASTE Product Size: 1000 mg Product Wasted: ___ mg Acetaminoph No Notes: Jah jina en 01-11 Infuse l 18:30: over 15 [place] 00 minutes Do not exceed 4gm/day of acetaminop hen MEDICATION WASTE Product Size: 1000 mg Product Wasted: ___ mg Acetaminoph No Notes: Jah jina en 01-11 Infuse l 18:30: over 15 [place] 00 minutes Do not exceed 4gm/day of acetaminop hen MEDICATION WASTE Product Size: 1000 mg Product Wasted: ___ mg Acetaminoph No Notes: Jah jina en 01-11 Infuse l 18:30: over 15 [place] 00 minutes Do not exceed 4gm/day of acetaminop hen MEDICATION WASTE Product Size: 1000 mg Product Wasted: ___ mg Acetaminoph No Notes: Jah jina en 01-11 Infuse l 18:30: over 15 [place] 00 minutes Do not exceed 4gm/day of acetaminop hen MEDICATION WASTE Product Size: 1000 mg Product Wasted: ___ mg Acetaminoph No Notes: Jah jina en 01-11 Infuse l 18:30: over 15 [place] 00 minutes Do not exceed 4gm/day of acetaminop hen MEDICATION WASTE Product Size: 1000 mg Product Wasted: ___ mg Acetaminoph No Notes: Jah jina en 01-11 Infuse l 18:30: over 15 [place] 00 minutes Do not exceed 4gm/day of acetaminop hen MEDICATION WASTE Product Size: 1000 mg Product Wasted: ___ mg Acetaminoph No Notes: Jah jina en 01-11 Infuse l 18:30: over 15 [place] 00 minutes Do not exceed 4gm/day of acetaminop hen MEDICATION WASTE Product Size: 1000 mg Product Wasted: ___ mg Acetaminoph No Notes: Jah jina en 01-11 Infuse l 18:30: over 15 [place] 00 minutes Do not exceed 4gm/day of acetaminop hen MEDICATION WASTE Product Size: 1000 mg Product Wasted: ___ mg Acetaminoph No Notes: Jah jina en 01-11 Infuse l 18:30: over 15 [place] 00 minutes Do not exceed 4gm/day of acetaminop hen MEDICATION WASTE Product Size: 1000 mg Product Wasted: ___ mg Acetaminoph No Notes: Jah jina en 01-11 Infuse l 18:30: over 15 [place] 00 minutes Do not exceed 4gm/day of acetaminop hen MEDICATION WASTE Product Size: 1000 mg Product Wasted: ___ mg Acetaminoph No Notes: Jah jina en 01-11 Infuse l 18:30: over 15 [place] 00 minutes Do not exceed 4gm/day of acetaminop hen MEDICATION WASTE Product Size: 1000 mg Product Wasted: ___ mg Acetaminoph No Notes: Jah jina en 01-11 Infuse l 18:30: over 15 [place] 00 minutes Do not exceed 4gm/day of acetaminop hen MEDICATION WASTE Product Size: 1000 mg Product Wasted: ___ mg Acetaminoph No Notes: Jah jina en 01-11 Infuse l 18:30: over 15 [place] 00 minutes Do not exceed 4gm/day of acetaminop hen MEDICATION WASTE Product Size: 1000 mg Product Wasted: ___ mg Acetaminoph No Notes: Jah jina en 01-11 Infuse l 18:30: over 15 [place] 00 minutes Do not exceed 4gm/day of acetaminop hen MEDICATION WASTE Product Size: 1000 mg Product Wasted: ___ mg Acetaminoph No Notes: Jah jina en 01-11 Infuse l 18:30: over 15 [place] 00 minutes Do not exceed 4gm/day of acetaminop hen MEDICATION WASTE Product Size: 1000 mg Product Wasted: ___ mg Acetaminoph No Notes: Jah jina en 01-11 Infuse l 18:30: over 15 [place] 00 minutes Do not exceed 4gm/day of acetaminop hen MEDICATION WASTE Product Size: 1000 mg Product Wasted: ___ mg Acetaminoph No Notes: Jah jina en 01-11 Infuse l 18:30: over 15 [place] 00 minutes Do not exceed 4gm/day of acetaminop hen MEDICATION WASTE Product Size: 1000 mg Product Wasted: ___ mg Acetaminoph No Notes: Jah jina en 01-11 Infuse l 18:30: over 15 [place] 00 minutes Do not exceed 4gm/day of acetaminop hen MEDICATION WASTE Product Size: 1000 mg Product Wasted: ___ mg Acetaminoph No Notes: Jah jina en 01-11 Infuse l 18:30: over 15 [place] 00 minutes Do not exceed 4gm/day of acetaminop hen MEDICATION WASTE Product Size: 1000 mg Product Wasted: ___ mg Acetaminoph No Notes: Jah jina en 01-11 Infuse l 18:30: over 15 [place] 00 minutes Do not exceed 4gm/day of acetaminop hen MEDICATION WASTE Product Size: 1000 mg Product Wasted: ___ mg Acetaminoph No Notes: Jah jina en 01-11 Infuse l 18:30: over 15 [place] 00 minutes Do not exceed 4gm/day of acetaminop hen MEDICATION WASTE Product Size: 1000 mg Product Wasted: ___ mg Acetaminoph No Notes: Jah jina en 01-11 Infuse l 18:30: over 15 [place] 00 minutes Do not exceed 4gm/day of acetaminop hen MEDICATION WASTE Product Size: 1000 mg Product Wasted: ___ mg Acetaminoph No Notes: Jah jina en 01-11 Infuse l 18:30: over 15 [place] 00 minutes Do not exceed 4gm/day of acetaminop hen MEDICATION WASTE Product Size: 1000 mg Product Wasted: ___ mg Acetaminoph No Notes: Jah jina en 01-11 Infuse l 18:30: over 15 [place] 00 minutes Do not exceed 4gm/day of acetaminop hen MEDICATION WASTE Product Size: 1000 mg Product Wasted: ___ mg Acetaminoph 2016-0 No Notes: Jah jina en 01-11 Infuse l 18:30: over 15 [place] 00 minutes Do not exceed 4gm/day of acetaminop hen MEDICATION WASTE Product Size: 1000 mg Product Wasted: ___ mg Acetaminoph 2016-0 No Notes: Jah jina en 01-11 Infuse l 18:30: over 15 [place] 00 minutes Do not exceed 4gm/day of acetaminop hen MEDICATION WASTE Product Size: 1000 mg Product Wasted: ___ mg Acetaminoph 2016-0 No Notes: Jah jina en 01-11 Infuse l 18:30: over 15 [place] 00 minutes Do not exceed 4gm/day of acetaminop hen MEDICATION WASTE Product Size: 1000 mg Product Wasted: ___ mg Acetaminoph 2016-0 No Notes: Jah jina en 01-11 Infuse l 18:30: over 15 [place] 00 minutes Do not exceed 4gm/day of acetaminop hen MEDICATION WASTE Product Size: 1000 mg Product Wasted: ___ mg Cefazolin 2016-0 No Notes: Memori a 01-11 (Same As: l 18:00: Ancef, [place] Kefzol) MEDICATION WASTE Product Size: 1000 mg Product Wasted: ___ mg Cefazolin 2017-0 No Notes: Memori a 01-11 (Same As: l 18:00: Ancef, [place] Kefzol) MEDICATION WASTE Product Size: 1000 mg Product Wasted: ___ mg Cefazolin 2017-0 No Notes: Memori a 01-11 (Same As: l 18:00: Ancef, [place] Kefzol) MEDICATION WASTE Product Size: 1000 mg Product Wasted: ___ mg Cefazolin 2017-0 No Notes: Memori a 01-11 (Same As: l 18:00: Ancef, [place] Kefzol) MEDICATION WASTE Product Size: 1000 mg Product Wasted: ___ mg Cefazolin 2017-0 No Notes: Memori a 01-11 (Same As: l 18:00: Ancef, [place] 00 Kefzol) MEDICATION WASTE Product Size: 1000 mg Product Wasted: ___ mg Cefazolin 2017-0 No Notes: Memori a 01-11 (Same As: l 18:00: Ancef, [place] 00 Kefzol) MEDICATION WASTE Product Size: 1000 mg Product Wasted: ___ mg Cefazolin 2017-0 No Notes: Memori a 01-11 (Same As: l 18:00: Ancef, [place] 00 Kefzol) MEDICATION WASTE Product Size: 1000 mg Product Wasted: ___ mg Cefazolin 2017-0 No Notes: Memori a 01-11 (Same As: l 18:00: Ancef, [place] 00 Kefzol) MEDICATION WASTE Product Size: 1000 mg Product Wasted: ___ mg Cefazolin 2017-0 No Notes: Memori a 01-11 (Same As: l 18:00: Ancef, [place] 00 Kefzol) MEDICATION WASTE Product Size: 1000 mg Product Wasted: ___ mg Cefazolin 2017-0 No Notes: Memori a 01-11 (Same As: l 18:00: Ancef, [place] 00 Kefzol) MEDICATION WASTE Product Size: 1000 mg Product Wasted: ___ mg Cefazolin 2017-0 No Notes: Memori a 01-11 (Same As: l 18:00: Ancef, [place] 00 Kefzol) MEDICATION WASTE Product Size: 1000 mg Product Wasted: ___ mg Cefazolin 2017-0 No Notes: Memori a 01-11 (Same As: l 18:00: Ancef, [place] 00 Kefzol) MEDICATION WASTE Product Size: 1000 mg Product Wasted: ___ mg Cefazolin 2017-0 No Notes: Memori a 01-11 (Same As: l 18:00: Ancef, [place] 00 Kefzol) MEDICATION WASTE Product Size: 1000 mg Product Wasted: ___ mg Cefazolin 2017-0 No Notes: Memori a 01-11 (Same As: l 18:00: Ancef, [place] 00 Kefzol) MEDICATION WASTE Product Size: 1000 mg Product Wasted: ___ mg Cefazolin 2017-0 No Notes: Memori a 01-11 (Same As: l 18:00: Ancef, [place] 00 Kefzol) MEDICATION WASTE Product Size: 1000 mg Product Wasted: ___ mg Cefazolin 2017-0 No Notes: Memori a 01-11 (Same As: l 18:00: Ancef, [place] 00 Kefzol) MEDICATION WASTE Product Size: 1000 mg Product Wasted: ___ mg Cefazolin 2017-0 No Notes: Memori a 01-11 (Same As: l 18:00: Ancef, [place] 00 Kefzol) MEDICATION WASTE Product Size: 1000 mg Product Wasted: ___ mg Cefazolin 2017-0 No Notes: Memori a 01-11 (Same As: l 18:00: Ancef, [place] 00 Kefzol) MEDICATION WASTE Product Size: 1000 mg Product Wasted: ___ mg Cefazolin 2017-0 No Notes: Memori a 01-11 (Same As: l 18:00: Ancef, [place] 00 Kefzol) MEDICATION WASTE Product Size: 1000 mg Product Wasted: ___ mg Cefazolin 2017-0 No Notes: Memori a 01-11 (Same As: l 18:00: Ancef, [place] 00 Kefzol) MEDICATION WASTE Product Size: 1000 mg Product Wasted: ___ mg Cefazolin 2017-0 No Notes: Memori a 01-11 (Same As: l 18:00: Ancef, [place] 00 Kefzol) MEDICATION WASTE Product Size: 1000 mg Product Wasted: ___ mg Cefazolin 2017-0 No Notes: Memori a 01-11 (Same As: l 18:00: Ancef, [place] 00 Kefzol) MEDICATION WASTE Product Size: 1000 mg Product Wasted: ___ mg Cefazolin 2017-0 No Notes: Memori a 01-11 (Same As: l 18:00: Ancef, [place] 00 Kefzol) MEDICATION WASTE Product Size: 1000 mg Product Wasted: ___ mg Cefazolin 2017-0 No Notes: Memori a 01-11 (Same As: l 18:00: Ancef, [place] 00 Kefzol) MEDICATION WASTE Product Size: 1000 mg Product Wasted: ___ mg Cefazolin 2017-0 No Notes: Memori a 01-11 (Same As: l 18:00: Ancef, [place] 00 Kefzol) MEDICATION WASTE Product Size: 1000 mg Product Wasted: ___ mg Cefazolin 2017-0 No Notes: Memori a 01-11 (Same As: l 18:00: Ancef, [place] 00 Kefzol) MEDICATION WASTE Product Size: 1000 mg Product Wasted: ___ mg Cefazolin 2017-0 No Notes: Memori a 01-11 (Same As: l 18:00: Ancef, [place] 00 Kefzol) MEDICATION WASTE Product Size: 1000 mg Product Wasted: ___ mg Cefazolin 2017-0 No Notes: Memori a 01-11 (Same As: l 18:00: Ancef, [place] 00 Kefzol) MEDICATION WASTE Product Size: 1000 mg Product Wasted: ___ mg Cefazolin 2017-0 No Notes: Memori a 01-11 (Same As: l 18:00: Ancef, [place] 00 Kefzol) MEDICATION WASTE Product Size: 1000 mg Product Wasted: ___ mg Cefazolin 2017-0 No Notes: Memori a 01-11 (Same As: l 18:00: Ancef, [place] 00 Kefzol) MEDICATION WASTE Product Size: 1000 mg Product Wasted: ___ mg Cefazolin 2017-0 No Notes: Memori a 01-11 (Same As: l 18:00: Ancef, [place] 00 Kefzol) MEDICATION WASTE Product Size: 1000 mg Product Wasted: ___ mg Cefazolin 2017-0 No Notes: Memori a 01-11 (Same As: l 18:00: Ancef, [place] 00 Kefzol) MEDICATION WASTE Product Size: 1000 mg Product Wasted: ___ mg Cefazolin 2017-0 No Notes: Memori a 01-11 (Same As: l 18:00: Ancef, [place] 00 Kefzol) MEDICATION WASTE Product Size: 1000 mg Product Wasted: ___ mg Cefazolin 2017-0 No Notes: Memori a 01-11 (Same As: l 18:00: Ancef, [place] 00 Kefzol) MEDICATION WASTE Product Size: 1000 mg Product Wasted: ___ mg Cefazolin 2017-0 No Notes: Memori a 01-11 (Same As: l 18:00: Ancef, [place] 00 Kefzol) MEDICATION WASTE Product Size: 1000 mg Product Wasted: ___ mg Cefazolin 2017-0 No Notes: Memori a 01-11 (Same As: l 18:00: Ancef, [place] 00 Kefzol) MEDICATION WASTE Product Size: 1000 mg Product Wasted: ___ mg ferrous 2017-0 No Notes: Memoria sulfate 8- Give with l 17:00: food. "Do [place] 00 Not Crush" gabapentin No Notes: Memor ia 8-08 (Same as: l 17:00: Neurontin) [place] celecoxib 2017-0 No Notes: Memori a 8-08 NSAID. l 17:00: Please [place] 00 check indication . Not for seizure. (Same As: CeleBREX) ferrous 2017-0 No Notes: Memoria sulfate 8-08 Give with l 17:00: food. "Do [place] 00 Not Crush" gabapentin 2017-0 No Notes: Memor ia 8-08 (Same as: l 17:00: Neurontin) [place] 00 celecoxib 2017-0 No Notes: Memori a 8-08 NSAID. l 17:00: Please [place] 00 check indication . Not for seizure. (Same As: CeleBREX) ferrous 2017-0 No Notes: Memoria sulfate 8-08 Give with l 17:00: food. "Do [place] 00 Not Crush" gabapentin 2016-0 No Notes: Memor ia 8-08 (Same as: l 17:00: Neurontin) [place] 00 celecoxib 0 No Notes: Memori a 8-08 NSAID. l 17:00: Please [place] 00 check indication . Not for seizure. (Same As: CeleBREX) ferrous 2016-0 No Notes: Memoria sulfate 8-08 Give with l 17:00: food. "Do [place] 00 Not Crush" gabapentin 0 No Notes: Memor ia 8-08 (Same as: l 17:00: Neurontin) [place] 00 celecoxib No Notes: Memori a 8-08 NSAID. l 17:00: Please [place] 00 check indication . Not for seizure. (Same As: CeleBREX) ferrous No Notes: Memoria sulfate 8-08 Give with l 17:00: food. "Do [place] 00 Not Crush" gabapentin 0 No Notes: Memor ia 8-08 (Same as: l 17:00: Neurontin) [place] 00 celecoxib No Notes: Memori a 8-08 NSAID. l 17:00: Please [place] 00 check indication . Not for seizure. (Same As: CeleBREX) ferrous 0 No Notes: Memoria sulfate 8-08 Give with l 17:00: food. "Do [place] 00 Not Crush" gabapentin 2016-0 No Notes: Memor ia 8-08 (Same as: l 17:00: Neurontin) [place] 00 celecoxib 0 No Notes: Memori a 8-08 NSAID. l 17:00: Please [place] 00 check indication . Not for seizure. (Same As: CeleBREX) ferrous 2016-0 No Notes: Memoria sulfate 8-08 Give with l 17:00: food. "Do [place] 00 Not Crush" gabapentin 2016-0 No Notes: Memor ia 8-08 (Same as: l 17:00: Neurontin) [place] 00 celecoxib 2016-0 No Notes: Memori a 8-08 NSAID. l 17:00: Please [place] 00 check indication . Not for seizure. (Same As: CeleBREX) ferrous 2016-0 No Notes: Memoria sulfate 8-08 Give with l 17:00: food. "Do [place] 00 Not Crush" gabapentin 2017-0 No Notes: Memor ia 8-08 (Same as: l 17:00: Neurontin) [place] 00 celecoxib 0 No Notes: Memori a 8-08 NSAID. l 17:00: Please [place] 00 check indication . Not for seizure. (Same As: CeleBREX) ferrous 2016-0 No Notes: Memoria sulfate 8-08 Give with l 17:00: food. "Do [place] 00 Not Crush" gabapentin 2016-0 No Notes: Memor ia 8-08 (Same as: l 17:00: Neurontin) [place] 00 celecoxib 0 No Notes: Memori a 8-08 NSAID. l 17:00: Please [place] 00 check indication . Not for seizure. (Same As: CeleBREX) ferrous 2016-0 No Notes: Memoria sulfate 8-08 Give with l 17:00: food. "Do [place] 00 Not Crush" gabapentin 2016-0 No Notes: Memor ia 8-08 (Same as: l 17:00: Neurontin) [place] 00 celecoxib 0 No Notes: Memori a 8-08 NSAID. l 17:00: Please [place] 00 check indication . Not for seizure. (Same As: CeleBREX) ferrous 2016-0 No Notes: Memoria sulfate 8-08 Give with l 17:00: food. "Do [place] 00 Not Crush" gabapentin 2016-0 No Notes: Memor ia 8-08 (Same as: l 17:00: Neurontin) [place] 00 celecoxib 2016-0 No Notes: Memori a 8-08 NSAID. l 17:00: Please [place] 00 check indication . Not for seizure. (Same As: CeleBREX) ferrous 2016-0 No Notes: Memoria sulfate 8-08 Give with l 17:00: food. "Do [place] 00 Not Crush" gabapentin 2017-0 No Notes: Memor ia 8-08 (Same as: l 17:00: Neurontin) [place] 00 celecoxib 2016-0 No Notes: Memori a 8-08 NSAID. l 17:00: Please [place] 00 check indication . Not for seizure. (Same As: CeleBREX) ferrous 2016-0 No Notes: Memoria sulfate 8-08 Give with l 17:00: food. "Do [place] 00 Not Crush" gabapentin 2016- No Notes: Memor ia 8-08 (Same as: l 17:00: Neurontin) [place] gabapentin No Notes: Memor ia 8-08 (Same as: l 17:00: Neurontin) [place] celecoxib No Notes: Memori a 8-08 NSAID. l 17:00: Please [place] 00 check indication . Not for seizure. (Same As: CeleBREX) ferrous 2016-0 No Notes: Memoria sulfate 8-08 Give with l 17:00: food. "Do [place] 00 Not Crush" celecoxib No Notes: Memori a 8-08 NSAID. l 17:00: Please Kush 00 check indication . Not for seizure. (Same As: CeleBREX) gabapentin No Notes: Memor ia 8-08 (Same as: l 17:00: Neurontin) [place] 00 celecoxib No Notes: Memori a 8-08 NSAID. l 17:00: Please [place] 00 check indication . Not for seizure. (Same As: CeleBREX) ferrous 0 No Notes: Memoria sulfate 8-08 Give with l 17:00: food. "Do [place] 00 Not Crush" ferrous 2016-0 No Notes: Memoria sulfate 8-08 Give with l 17:00: food. "Do [place] 00 Not Crush" gabapentin 0 No Notes: Memor ia 8-08 (Same as: l 17:00: Neurontin) Kush celecoxib No Notes: Memori a 8-08 NSAID. l 17:00: Please [place] 00 check indication . Not for seizure. (Same As: CeleBREX) ferrous 2016-0 No Notes: Memoria sulfate 8-08 Give with l 17:00: food. "Do [place] 00 Not Crush" gabapentin 2017-0 No Notes: Memor ia 8-08 (Same as: l 17:00: Neurontin) [place] 00 celecoxib 0 No Notes: Memori a 8-08 NSAID. l 17:00: Please [place] 00 check indication . Not for seizure. (Same As: CeleBREX) ferrous 2017-0 No Notes: Memoria sulfate 8-08 Give with l 17:00: food. "Do [place] 00 Not Crush" gabapentin 2017-0 No Notes: Memor ia 8-08 (Same as: l 17:00: Neurontin) [place] 00 celecoxib 2017-0 No Notes: Memori a 8-08 NSAID. l 17:00: Please [place] 00 check indication . Not for seizure. (Same As: CeleBREX) ferrous 2016-0 No Notes: Memoria sulfate 8-08 Give with l 17:00: food. "Do [place] 00 Not Crush" gabapentin 2017-0 No Notes: Memor ia 8-08 (Same as: l 17:00: Neurontin) Kush 00 celecoxib 2016-0 No Notes: Memori a 8-08 NSAID. l 17:00: Please [place] 00 check indication . Not for seizure. (Same As: CeleBREX) ferrous 2016-0 No Notes: Memoria sulfate 8-08 Give with l 17:00: food. "Do [place] 00 Not Crush" gabapentin 2017-0 No Notes: Memor ia 8-08 (Same as: l 17:00: Neurontin) Kush 00 celecoxib 2016-0 No Notes: Memori a 8-08 NSAID. l 17:00: Please [place] 00 check indication . Not for seizure. (Same As: CeleBREX) ferrous 2016-0 No Notes: Memoria sulfate 8-08 Give with l 17:00: food. "Do [place] 00 Not Crush" gabapentin 2017-0 No Notes: Memor ia 8-08 (Same as: l 17:00: Neurontin) [place] 00 celecoxib 2016-0 No Notes: Memori a 8-08 NSAID. l 17:00: Please [place] 00 check indication . Not for seizure. (Same As: CeleBREX) ferrous 2016-0 No Notes: Memoria sulfate 8-08 Give with l 17:00: food. "Do [place] 00 Not Crush" gabapentin 2017-0 No Notes: Memor ia 8-08 (Same as: l 17:00: Neurontin) Kush 00 celecoxib 2017-0 No Notes: Memori a 8-08 NSAID. l 17:00: Please [place] 00 check indication . Not for seizure. (Same As: CeleBREX) ferrous 2017-0 No Notes: Memoria sulfate 8-08 Give with l 17:00: food. "Do [place] 00 Not Crush" gabapentin 2017-0 No Notes: Memor ia 8-08 (Same as: l 17:00: Neurontin) Kush 00 celecoxib 0 No Notes: Memori a 8-08 NSAID. l 17:00: Please [place] 00 check indication . Not for seizure. (Same As: CeleBREX) ferrous 2016-0 No Notes: Memoria sulfate 8-08 Give with l 17:00: food. "Do [place] 00 Not Crush" gabapentin No Notes: Memor ia 8-08 (Same as: l 17:00: Neurontin) Kush 00 celecoxib 0 No Notes: Memori a 8-08 NSAID. l 17:00: Please [place] 00 check indication . Not for seizure. (Same As: CeleBREX) ferrous 0 No Notes: Memoria sulfate 8-08 Give with l 17:00: food. "Do [place] 00 Not Crush" gabapentin 0 No Notes: Memor ia 8-08 (Same as: l 17:00: Neurontin) Kush 00 celecoxib No Notes: Memori a 8-08 NSAID. l 17:00: Please [place] 00 check indication . Not for seizure. (Same As: CeleBREX) ferrous No Notes: Memoria sulfate 8-08 Give with l 17:00: food. "Do [place] 00 Not Crush" gabapentin 0 No Notes: Memor ia 8-08 (Same as: l 17:00: Neurontin) [place] 00 celecoxib 0 No Notes: Memori a 8-08 NSAID. l 17:00: Please [place] 00 check indication . Not for seizure. (Same As: CeleBREX) ferrous 2016-0 No Notes: Memoria sulfate 8-08 Give with l 17:00: food. "Do [place] 00 Not Crush" gabapentin 0 No Notes: Memor ia 8-08 (Same as: l 17:00: Neurontin) [place] 00 celecoxib 2016-0 No Notes: Memori a 8-08 NSAID. l 17:00: Please [place] 00 check indication . Not for seizure. (Same As: CeleBREX) ferrous 2016-0 No Notes: Memoria sulfate 8-08 Give with l 17:00: food. "Do Kush 00 Not Crush" gabapentin 2016-0 No Notes: Memor ia 8-08 (Same as: l 17:00: Neurontin) Kush 00 celecoxib 2016-0 No Notes: Memori a 8-08 NSAID. l 17:00: Please [place] 00 check indication . Not for seizure. (Same As: CeleBREX) ferrous 2016-0 No Notes: Memoria sulfate 8-08 Give with l 17:00: food. "Do [place] 00 Not Crush" gabapentin 0 No Notes: Memor ia 8-08 (Same as: l 17:00: Neurontin) Kush 00 celecoxib 0 No Notes: Memori a 8-08 NSAID. l 17:00: Please [place] 00 check indication . Not for seizure. (Same As: CeleBREX) ferrous 2016-0 No Notes: Memoria sulfate 8-08 Give with l 17:00: food. "Do [place] 00 Not Crush" gabapentin 2016-0 No Notes: Memor ia 8-08 (Same as: l 17:00: Neurontin) Kush celecoxib 0 No Notes: Memori a 8-08 NSAID. l 17:00: Please [place] 00 check indication . Not for seizure. (Same As: CeleBREX) ferrous 0 No Notes: Memoria sulfate 8-08 Give with l 17:00: food. "Do [place] 00 Not Crush" gabapentin 2016-0 No Notes: Memor ia 8-08 (Same as: l 17:00: Neurontin) [place] celecoxib 0 No Notes: Memori a 8-08 NSAID. l 17:00: Please [place] 00 check indication . Not for seizure. (Same As: CeleBREX) ferrous 2016-0 No Notes: Memoria sulfate 8-08 Give with l 17:00: food. "Do [place] 00 Not Crush" gabapentin 2017-0 No Notes: Memor ia 8-08 (Same as: l 17:00: Neurontin) [place] 00 celecoxib 2016-0 No Notes: Memori a 8-08 NSAID. l 17:00: Please [place] 00 check indication . Not for seizure. (Same As: CeleBREX) ferrous 2016-0 No Notes: Memoria sulfate 8-08 Give with l 17:00: food. "Do [place] 00 Not Crush" gabapentin 2016-0 No Notes: Memor ia 8-08 (Same as: l 17:00: Neurontin) [place] 00 celecoxib 2017-0 No Notes: Memori a 8-08 NSAID. l 17:00: Please [place] 00 check indication . Not for seizure. (Same As: CeleBREX) ferrous 2017-0 No Notes: Memoria sulfate 8-08 Give with l 17:00: food. "Do [place] 00 Not Crush" gabapentin 20170 No Notes: Memor ia 8-08 (Same as: l 17:00: Neurontin) [place] 00 celecoxib 2016-0 No Notes: Memori a 8-08 NSAID. l 17:00: Please [place] 00 check indication . Not for seizure. (Same As: CeleBREX) ferrous 2017-0 No Notes: Memoria sulfate 8-08 Give with l 17:00: food. "Do [place] 00 Not Crush" gabapentin 2017-0 No Notes: Memor ia 8-08 (Same as: l 17:00: Neurontin) [place] 00 celecoxib No Notes: Memori a 8-08 NSAID. l 17:00: Please [place] 00 check indication . Not for seizure. (Same As: CeleBREX) gabapentin 0 No Notes: Memor ia 8-08 (Same as: l 17:00: Neurontin) [place] 00 celecoxib 0 No Notes: Memori a 8-08 NSAID. l 17:00: Please [place] 00 check indication . Not for seizure. (Same As: CeleBREX) ferrous 0 No Notes: Memoria sulfate 8-08 Give with l 17:00: food. "Do [place] 00 Not Crush" Reglan 2017-0 No Notes: Memoria 8-08 (Same as: l 16:30: Reglan) Kush 00 Take 30 min before meals Reglan 2017-0 No Notes: Memoria 8-08 (Same as: l 16:30: Reglan) [place] 00 Take 30 min before meals Reglan 2017-0 No Notes: Memoria 8-08 (Same as: l 16:30: Reglan) [place] 00 Take 30 min before meals Reglan 2017-0 No Notes: Memoria 8-08 (Same as: l 16:30: Reglan) [place] 00 Take 30 min before meals Reglan 2017-0 No Notes: Memoria 8-08 (Same as: l 16:30: Reglan) [place] 00 Take 30 min before meals Reglan 2017-0 No Notes: Memoria 8-08 (Same as: l 16:30: Reglan) [place] 00 Take 30 min before meals Reglan 2017-0 No Notes: Memoria 8-08 (Same as: l 16:30: Reglan) [place] 00 Take 30 min before meals Reglan 2017-0 No Notes: Memoria 8-08 (Same as: l 16:30: Reglan) [place] 00 Take 30 min before meals Reglan 2017-0 No Notes: Memoria 8-08 (Same as: l 16:30: Reglan) [place] 00 Take 30 min before meals Reglan 2017-0 No Notes: Memoria 8-08 (Same as: l 16:30: Reglan) [place] 00 Take 30 min before meals Reglan 2017-0 No Notes: Memoria 8-08 (Same as: l 16:30: Reglan) [place] 00 Take 30 min before meals Reglan 2017-0 No Notes: Memoria 8-08 (Same as: l 16:30: Reglan) [place] 00 Take 30 min before meals Reglan 2017-0 No Notes: Memoria 8-08 (Same as: l 16:30: Reglan) [place] 00 Take 30 min before meals Reglan 2017-0 No Notes: Memoria 8-08 (Same as: l 16:30: Reglan) [place] 00 Take 30 min before meals Reglan 2017-0 No Notes: Memoria 8-08 (Same as: l 16:30: Reglan) [place] 00 Take 30 min before meals Reglan 2017-0 No Notes: Memoria 8-08 (Same as: l 16:30: Reglan) [place] 00 Take 30 min before meals Reglan 2017-0 No Notes: Memoria 8-08 (Same as: l 16:30: Reglan) [place] 00 Take 30 min before meals Reglan 2017-0 No Notes: Memoria 8-08 (Same as: l 16:30: Reglan) [place] 00 Take 30 min before meals Reglan 2017-0 No Notes: Memoria 8-08 (Same as: l 16:30: Reglan) [place] 00 Take 30 min before meals Reglan 2017-0 No Notes: Memoria 8-08 (Same as: l 16:30: Reglan) [place] 00 Take 30 min before meals Reglan 2017-0 No Notes: Memoria 8-08 (Same as: l 16:30: Reglan) [place] 00 Take 30 min before meals Reglan 2017-0 No Notes: Memoria 8-08 (Same as: l 16:30: Reglan) [place] 00 Take 30 min before meals Reglan 2017-0 No Notes: Memoria 8-08 (Same as: l 16:30: Reglan) [place] 00 Take 30 min before meals Reglan 2017-0 No Notes: Memoria 8-08 (Same as: l 16:30: Reglan) [place] 00 Take 30 min before meals Reglan 2017-0 No Notes: Memoria 8-08 (Same as: l 16:30: Reglan) [place] 00 Take 30 min before meals Reglan 2017-0 No Notes: Memoria 8-08 (Same as: l 16:30: Reglan) [place] 00 Take 30 min before meals Reglan 2017-0 No Notes: Memoria 8-08 (Same as: l 16:30: Reglan) [place] 00 Take 30 min before meals Reglan 2017-0 No Notes: Memoria 8-08 (Same as: l 16:30: Reglan) [place] 00 Take 30 min before meals Reglan 2017-0 No Notes: Memoria 8-08 (Same as: l 16:30: Reglan) [place] 00 Take 30 min before meals Reglan 2017-0 No Notes: Memoria 8-08 (Same as: l 16:30: Reglan) [place] 00 Take 30 min before meals Reglan 2017-0 No Notes: Memoria 8-08 (Same as: l 16:30: Reglan) [place] 00 Take 30 min before meals Reglan 2017-0 No Notes: Memoria 8-08 (Same as: l 16:30: Reglan) [place] 00 Take 30 min before meals Reglan 2017-0 No Notes: Memoria 8-08 (Same as: l 16:30: Reglan) [place] 00 Take 30 min before meals Reglan 2017-0 No Notes: Memoria 8-08 (Same as: l 16:30: Reglan) [place] 00 Take 30 min before meals Reglan 2017-0 No Notes: Memoria 8-08 (Same as: l 16:30: Reglan) [place] 00 Take 30 min before meals Reglan 2017-0 No Notes: Memoria 8-08 (Same as: l 16:30: Reglan) [place] 00 Take 30 min before meals Naloxone No Notes: Memoria 8-08 Same as l 16:13: Narcan [place] 00 Methocarbam No Notes: Jah jina ol 8-08 (Same l 16:13: as:Robaxin [place] 00 ) Morphine No Notes: Memoria 8-08 (Same l 16:13: as:MORPhin [place] 00 e Sulfate) Oxycodone No Notes: Memori a Hydrochlori 8-08 (Same as: l de 5 MG 16:13: Roxicodone Herm pedro Oral Tablet 00 ) Naloxone No Notes: Memoria 8-08 Same as l 16:13: Narcan [place] 00 Methocarbam No Notes: Jah jina ol 8-08 (Same l 16:13: as:Robaxin [place] 00 ) Morphine No Notes: Memoria 8-08 (Same l 16:13: as:MORPhin [place] 00 e Sulfate) Oxycodone No Notes: Memori a Hydrochlori 8-08 (Same as: l de 5 MG 16:13: Roxicodone Herm pedro Oral Tablet 00 ) Naloxone No Notes: Memoria 8-08 Same as l 16:13: Narcan [place] 00 Methocarbam No Notes: Jah jina ol 8-08 (Same l 16:13: as:Robaxin [place] 00 ) Morphine No Notes: Memoria 8-08 (Same l 16:13: as:MORPhin [place] 00 e Sulfate) Oxycodone No Notes: Memori a Hydrochlori 8-08 (Same as: l de 5 MG 16:13: Roxicodone Herm pedro Oral Tablet 00 ) Naloxone No Notes: Memoria 8-08 Same as l 16:13: Narcan [place] 00 Methocarbam No Notes: Jah jina ol 8-08 (Same l 16:13: as:Robaxin [place] 00 ) Morphine No Notes: Memoria 8-08 (Same l 16:13: as:MORPhin [place] 00 e Sulfate) Oxycodone No Notes: Memori a Hydrochlori 8-08 (Same as: l de 5 MG 16:13: Roxicodone Herm pedro Oral Tablet 00 ) Naloxone No Notes: Memoria 8-08 Same as l 16:13: Narcan [place] 00 Methocarbam No Notes: Jah jina ol 8-08 (Same l 16:13: as:Robaxin [place] 00 ) Morphine No Notes: Memoria 8-08 (Same l 16:13: as:MORPhin [place] 00 e Sulfate) Oxycodone No Notes: Memori a Hydrochlori 8-08 (Same as: l de 5 MG 16:13: Roxicodone Herm pedro Oral Tablet 00 ) Naloxone No Notes: Memoria 8-08 Same as l 16:13: Narcan [place] 00 Methocarbam No Notes: Jah jina ol 8-08 (Same l 16:13: as:Robaxin [place] 00 ) Morphine No Notes: Memoria 8-08 (Same l 16:13: as:MORPhin [place] 00 e Sulfate) Oxycodone No Notes: Memori a Hydrochlori 8-08 (Same as: l de 5 MG 16:13: Roxicodone Herm pedro Oral Tablet 00 ) Naloxone No Notes: Memoria 8-08 Same as l 16:13: Narcan [place] 00 Methocarbam No Notes: Jah jina ol 8-08 (Same l 16:13: as:Robaxin [place] 00 ) Morphine No Notes: Memoria 8-08 (Same l 16:13: as:MORPhin [place] 00 e Sulfate) Oxycodone No Notes: Memori a Hydrochlori 8-08 (Same as: l de 5 MG 16:13: Roxicodone Herm pedro Oral Tablet ) Naloxone No Notes: Memoria 8-08 Same as l 16:13: Narcan [place] 00 Methocarbam No Notes: Jah jina ol 8-08 (Same l 16:13: as:Robaxin [place] 00 ) Morphine No Notes: Memoria 8-08 (Same l 16:13: as:MORPhin [place] 00 e Sulfate) Naloxone No Notes: Memoria 8-08 Same as l 16:13: Narcan [place] 00 Methocarbam No Notes: Jah jina ol 8-08 (Same l 16:13: as:Robaxin [place] 00 ) Morphine No Notes: Memoria 8-08 (Same l 16:13: as:MORPhin [place] 00 e Sulfate) Oxycodone No Notes: Memori a Hydrochlori 8-08 (Same as: l de 5 MG 16:13: Roxicodone Herm pedro Oral Tablet 00 ) Oxycodone No Notes: Memori a Hydrochlori 8-08 (Same as: l de 5 MG 16:13: Roxicodone Herm pedro Oral Tablet 00 ) Naloxone No Notes: Memoria 8-08 Same as l 16:13: Narcan [place] 00 Methocarbam No Notes: Jah jina ol 8-08 (Same l 16:13: as:Robaxin [place] 00 ) Morphine No Notes: Memoria 8-08 (Same l 16:13: as:MORPhin [place] 00 e Sulfate) Oxycodone No Notes: Memori a Hydrochlori 8-08 (Same as: l de 5 MG 16:13: Roxicodone Herm pedro Oral Tablet 00 ) Naloxone No Notes: Memoria 8-08 Same as l 16:13: Narcan [place] 00 Methocarbam No Notes: Jah jina ol 8-08 (Same l 16:13: as:Robaxin [place] 00 ) Morphine No Notes: Memoria 8-08 (Same l 16:13: as:MORPhin [place] 00 e Sulfate) Oxycodone No Notes: Memori a Hydrochlori 8-08 (Same as: l de 5 MG 16:13: Roxicodone Herm pedro Oral Tablet 00 ) Naloxone No Notes: Memoria 8-08 Same as l 16:13: Narcan [place] 00 Methocarbam No Notes: Jah jina ol 8-08 (Same l 16:13: as:Robaxin [place] 00 ) Morphine No Notes: Memoria 8-08 (Same l 16:13: as:MORPhin [place] 00 e Sulfate) Oxycodone No Notes: Memori a Hydrochlori 8-08 (Same as: l de 5 MG 16:13: Roxicodone Herm pedro Oral Tablet 00 ) Naloxone No Notes: Memoria 8-08 Same as l 16:13: Narcan [place] 00 Methocarbam No Notes: Jah jina ol 8-08 (Same l 16:13: as:Robaxin [place] 00 ) Morphine No Notes: Memoria 8-08 (Same l 16:13: as:MORPhin [place] 00 e Sulfate) Oxycodone No Notes: Memori a Hydrochlori 8-08 (Same as: l de 5 MG 16:13: Roxicodone Herm pedro Oral Tablet 00 ) Naloxone No Notes: Memoria 8-08 Same as l 16:13: Narcan [place] 00 Methocarbam No Notes: Jah jina ol 8-08 (Same l 16:13: as:Robaxin [place] 00 ) Morphine No Notes: Memoria 8-08 (Same l 16:13: as:MORPhin [place] 00 e Sulfate) Oxycodone No Notes: Memori a Hydrochlori 8-08 (Same as: l de 5 MG 16:13: Roxicodone Herm pedro Oral Tablet 00 ) Naloxone No Notes: Memoria 8-08 Same as l 16:13: Narcan [place] 00 Methocarbam No Notes: Jah jina ol 8-08 (Same l 16:13: as:Robaxin [place] 00 ) Morphine No Notes: Memoria 8-08 (Same l 16:13: as:MORPhin [place] 00 e Sulfate) Oxycodone No Notes: Memori a Hydrochlori 8-08 (Same as: l de 5 MG 16:13: Roxicodone Herm pedro Oral Tablet 00 ) Naloxone No Notes: Memoria 8-08 Same as l 16:13: Narcan [place] 00 Methocarbam No Notes: Jah jina ol 8-08 (Same l 16:13: as:Robaxin [place] 00 ) Morphine No Notes: Memoria 8-08 (Same l 16:13: as:MORPhin [place] 00 e Sulfate) Oxycodone No Notes: Memori a Hydrochlori 8-08 (Same as: l de 5 MG 16:13: Roxicodone Herm pedro Oral Tablet 00 ) Naloxone No Notes: Memoria 8-08 Same as l 16:13: Narcan [place] 00 Naloxone No Notes: Memoria 8-08 Same as l 16:13: Narcan [place] 00 Methocarbam No Notes: Jah jina ol 8-08 (Same l 16:13: as:Robaxin [place] 00 ) Morphine No Notes: Memoria 8-08 (Same l 16:13: as:MORPhin [place] 00 e Sulfate) Oxycodone No Notes: Memori a Hydrochlori 8-08 (Same as: l de 5 MG 16:13: Roxicodone Herm pedro Oral Tablet 00 ) Methocarbam No Notes: Jah jina ol 8-08 (Same l 16:13: as:Robaxin [place] 00 ) Naloxone No Notes: Memoria 8-08 Same as l 16:13: Narcan [place] 00 Methocarbam No Notes: Jah jina ol 8-08 (Same l 16:13: as:Robaxin [place] 00 ) Morphine No Notes: Memoria 8-08 (Same l 16:13: as:MORPhin [place] 00 e Sulfate) Oxycodone No Notes: Memori a Hydrochlori 8-08 (Same as: l de 5 MG 16:13: Roxicodone Herm pedro Oral Tablet ) Morphine No Notes: Memoria 8-08 (Same l 16:13: as:MORPhin [place] 00 e Sulfate) Naloxone No Notes: Memoria 8-08 Same as l 16:13: Narcan [place] 00 Methocarbam No Notes: Jah jina ol 8-08 (Same l 16:13: as:Robaxin [place] 00 ) Morphine No Notes: Memoria 8-08 (Same l 16:13: as:MORPhin [place] 00 e Sulfate) Oxycodone No Notes: Memori a Hydrochlori 8-08 (Same as: l de 5 MG 16:13: Roxicodone Herm pedro Oral Tablet 00 ) Oxycodone No Notes: Memori a Hydrochlori 8-08 (Same as: l de 5 MG 16:13: Roxicodone Herm pedro Oral Tablet 00 ) Naloxone No Notes: Memoria 8-08 Same as l 16:13: Narcan [place] 00 Methocarbam No Notes: Jah jina ol 8-08 (Same l 16:13: as:Robaxin [place] 00 ) Morphine No Notes: Memoria 8-08 (Same l 16:13: as:MORPhin [place] 00 e Sulfate) Oxycodone No Notes: Memori a Hydrochlori 8-08 (Same as: l de 5 MG 16:13: Roxicodone Herm pedro Oral Tablet 00 ) Naloxone No Notes: Memoria 8-08 Same as l 16:13: Narcan [place] 00 Methocarbam No Notes: Jah jina ol 8-08 (Same l 16:13: as:Robaxin [place] 00 ) Morphine No Notes: Memoria 8-08 (Same l 16:13: as:MORPhin [place] 00 e Sulfate) Oxycodone No Notes: Memori a Hydrochlori 8-08 (Same as: l de 5 MG 16:13: Roxicodone Herm pedro Oral Tablet 00 ) Naloxone No Notes: Memoria 8-08 Same as l 16:13: Narcan [place] 00 Methocarbam No Notes: Jah jina ol 8-08 (Same l 16:13: as:Robaxin [place] 00 ) Morphine No Notes: Memoria 8-08 (Same l 16:13: as:MORPhin [place] 00 e Sulfate) Oxycodone No Notes: Memori a Hydrochlori 8-08 (Same as: l de 5 MG 16:13: Roxicodone Herm pedro Oral Tablet 00 ) Naloxone No Notes: Memoria 8-08 Same as l 16:13: Narcan [place] 00 Methocarbam No Notes: Jah jina ol 8-08 (Same l 16:13: as:Robaxin [place] 00 ) Morphine No Notes: Memoria 8-08 (Same l 16:13: as:MORPhin [place] 00 e Sulfate) Oxycodone No Notes: Memori a Hydrochlori 8-08 (Same as: l de 5 MG 16:13: Roxicodone Herm pedro Oral Tablet 00 ) Naloxone No Notes: Memoria 8-08 Same as l 16:13: Narcan [place] 00 Methocarbam No Notes: Jah jina ol 8-08 (Same l 16:13: as:Robaxin [place] 00 ) Morphine No Notes: Memoria 8-08 (Same l 16:13: as:MORPhin [place] 00 e Sulfate) Oxycodone No Notes: Memori a Hydrochlori 8-08 (Same as: l de 5 MG 16:13: Roxicodone Herm pedro Oral Tablet 00 ) Naloxone No Notes: Memoria 8-08 Same as l 16:13: Narcan [place] 00 Methocarbam No Notes: Jah jina ol 8-08 (Same l 16:13: as:Robaxin Kush 00 ) Morphine No Notes: Memoria 8-08 (Same l 16:13: as:MORPhin Kush 00 e Sulfate) Oxycodone No Notes: Memori a Hydrochlori 8-08 (Same as: l de 5 MG 16:13: Roxicodone Herm pedro Oral Tablet 00 ) Naloxone No Notes: Memoria 8-08 Same as l 16:13: Narcan [place] 00 Methocarbam No Notes: Jah jina ol 8-08 (Same l 16:13: as:Robaxin Kush 00 ) Morphine No Notes: Memoria 8-08 (Same l 16:13: as:MORPhin [place] 00 e Sulfate) Oxycodone No Notes: Memori a Hydrochlori 8-08 (Same as: l de 5 MG 16:13: Roxicodone Herm pedro Oral Tablet 00 ) Naloxone No Notes: Memoria 8-08 Same as l 16:13: Narcan [place] 00 Methocarbam No Notes: Jah jina ol 8-08 (Same l 16:13: as:Robaxin [place] 00 ) Morphine No Notes: Memoria 8-08 (Same l 16:13: as:MORPhin [place] 00 e Sulfate) Oxycodone No Notes: Memori a Hydrochlori 8-08 (Same as: l de 5 MG 16:13: Roxicodone Herm pedro Oral Tablet 00 ) Naloxone No Notes: Memoria 8-08 Same as l 16:13: Narcan [place] 00 Methocarbam No Notes: Jah jina ol 8-08 (Same l 16:13: as:Robaxin Kush 00 ) Morphine No Notes: Memoria 8-08 (Same l 16:13: as:MORPhin Kush 00 e Sulfate) Oxycodone No Notes: Memori a Hydrochlori 8-08 (Same as: l de 5 MG 16:13: Roxicodone Herm pedro Oral Tablet 00 ) Naloxone No Notes: Memoria 8-08 Same as l 16:13: Narcan [place] 00 Methocarbam No Notes: Jah jina ol 8-08 (Same l 16:13: as:Robaxin [place] 00 ) Morphine No Notes: Memoria 8-08 (Same l 16:13: as:MORPhin [place] 00 e Sulfate) Oxycodone No Notes: Memori a Hydrochlori 8-08 (Same as: l de 5 MG 16:13: Roxicodone Herm pedro Oral Tablet 00 ) Naloxone No Notes: Memoria 8-08 Same as l 16:13: Narcan [place] 00 Methocarbam No Notes: Jah jina ol 8-08 (Same l 16:13: as:Robaxin [place] 00 ) Morphine No Notes: Memoria 8-08 (Same l 16:13: as:MORPhin Kush 00 e Sulfate) Oxycodone No Notes: Memori a Hydrochlori 8-08 (Same as: l de 5 MG 16:13: Roxicodone Herm pedro Oral Tablet 00 ) Naloxone No Notes: Memoria 8-08 Same as l 16:13: Narcan [place] 00 Methocarbam No Notes: Jah jina ol 8-08 (Same l 16:13: as:Robaxin [place] 00 ) Morphine No Notes: Memoria 8-08 (Same l 16:13: as:MORPhin [place] 00 e Sulfate) Oxycodone No Notes: Memori a Hydrochlori 8-08 (Same as: l de 5 MG 16:13: Roxicodone Herm pedro Oral Tablet 00 ) Naloxone No Notes: Memoria 8-08 Same as l 16:13: Narcan [place] 00 Methocarbam No Notes: Jah jina ol 8-08 (Same l 16:13: as:Robaxin Kush 00 ) Morphine No Notes: Memoria 8-08 (Same l 16:13: as:MORPhin Kush 00 e Sulfate) Oxycodone No Notes: Memori a Hydrochlori 8-08 (Same as: l de 5 MG 16:13: Roxicodone Herm pedro Oral Tablet ) Naloxone No Notes: Memoria 8-08 Same as l 16:13: Narcan Kush 00 Methocarbam No Notes: Jah jina ol 8-08 (Same l 16:13: as:Robaxin [place] 00 ) Morphine No Notes: Memoria 8-08 (Same l 16:13: as:MORPhin [place] 00 e Sulfate) Oxycodone No Notes: Memori a Hydrochlori 8-08 (Same as: l de 5 MG 16:13: Roxicodone Herm pedro Oral Tablet ) Naloxone No Notes: Memoria 8-08 Same as l 16:13: Narcan Kush 00 Methocarbam No Notes: Jah jina ol 8-08 (Same l 16:13: as:Robaxin Kush 00 ) Morphine No Notes: Memoria 8-08 (Same l 16:13: as:MORPhin [place] 00 e Sulfate) Oxycodone No Notes: Memori a Hydrochlori 8-08 (Same as: l de 5 MG 16:13: Roxicodone Herm pedro Oral Tablet ) Naloxone No Notes: Memoria 8-08 Same as l 16:13: Narcan Kush 00 Methocarbam No Notes: Jah jina ol 8-08 (Same l 16:13: as:Robaxin [place] 00 ) Morphine No Notes: Memoria 8-08 (Same l 16:13: as:MORPhin [place] 00 e Sulfate) Oxycodone No Notes: Memori a Hydrochlori 8-08 (Same as: l de 5 MG 16:13: Roxicodone Herm pedro Oral Tablet 00 ) ketOROLAC No IV, ONCE Jah jina (ANES) 8-08 l 14:08: [place] 00 ketOROLAC 2017-0 No IV, ONCE Jah ijna (ANES) 01-11 l 14:08: Kush 00 ketOROLAC 2017-0 No IV, ONCE Jah jina (ANES) 01-11 l 14:08: [place] 00 ketOROLAC 2017-0 No IV, ONCE Jah jina (ANES) 01-11 l 14:08: [place] ketOROLAC 2017-0 No IV, ONCE Jah jina (ANES) 01-11 l 14:08: [place] 00 ketOROLAC 2017-0 No IV, ONCE Jah jina (ANES) 01-11 l 14:08: [place] ketOROLAC 2017-0 No IV, ONCE Jah jina (ANES) 01-11 l 14:08: [place] 00 ketOROLAC 2017-0 No IV, ONCE Jah jina (ANES) 01-11 l 14:08: [place] ketOROLAC 2017-0 No IV, ONCE Jah jina (ANES) 01-11 l 14:08: [place] ketOROLAC 2017-0 No IV, ONCE Jah jina (ANES) 01-11 l 14:08: [place] 00 ketOROLAC 2017-0 No IV, ONCE Jah jina (ANES) 01-11 l 14:08: [place] ketOROLAC 2017-0 No IV, ONCE Jah jina (ANES) 01-11 l 14:08: [place] 00 ketOROLAC 2017-0 No IV, ONCE Jah jina (ANES) 01-11 l 14:08: [place] ketOROLAC 2017-0 No IV, ONCE Jah jina (ANES) 01-11 l 14:08: [place] 00 ketOROLAC 2017-0 No IV, ONCE Jah jina (ANES) 01-11 l 14:08: [place] 00 ketOROLAC 2017-0 No IV, ONCE Jah jina (ANES) 01-11 l 14:08: [place] 00 ketOROLAC 2017-0 No IV, ONCE Jah jina (ANES) 01-11 l 14:08: [place] 00 ketOROLAC 2017-0 No IV, ONCE Jah jina (ANES) 01-11 l 14:08: [place] 00 ketOROLAC 2017-0 No IV, ONCE Jah jina (ANES) 01-11 l 14:08: [place] 00 ketOROLAC 2017-0 No IV, ONCE Jah jina (ANES) 01-11 l 14:08: [place] 00 ketOROLAC 2017-0 No IV, ONCE Jah jina (ANES) 01-11 l 14:08: [place] 00 ketOROLAC 2017-0 No IV, ONCE Jah jina (ANES) 01-11 l 14:08: [place] ketOROLAC 2017-0 No IV, ONCE Jah jina (ANES) 01-11 l 14:08: [place] 00 ketOROLAC 2017-0 No IV, ONCE Jah jina (ANES) 01-11 l 14:08: [place] 00 ketOROLAC 2017-0 No IV, ONCE Jah jina (ANES) 01-11 l 14:08: [place] 00 ketOROLAC 2017-0 No IV, ONCE Jah jina (ANES) 01-11 l 14:08: [place] ketOROLAC 2017-0 No IV, ONCE Jah jina (ANES) 01-11 l 14:08: [place] 00 ketOROLAC 2017-0 No IV, ONCE Jah jina (ANES) 01-11 l 14:08: [place] 00 ketOROLAC 2017-0 No IV, ONCE Jah jina (ANES) 01-11 l 14:08: [place] 00 ketOROLAC 2017-0 No IV, ONCE Jah jina (ANES) 01-11 l 14:08: [place] 00 ketOROLAC 2017-0 No IV, ONCE Jah jina (ANES) 01-11 l 14:08: [place] 00 ketOROLAC 2017-0 No IV, ONCE Jah jina (ANES) 01-11 l 14:08: [place] 00 ketOROLAC 2017-0 No IV, ONCE Jah jina (ANES) 01-11 l 14:08: [place] 00 ketOROLAC 2017-0 No IV, ONCE Jah jina (ANES) 01-11 l 14:08: [place] 00 ketOROLAC 2017-0 No IV, ONCE Jah jina (ANES) 01-11 l 14:08: [place] 00 ketOROLAC 2017-0 No IV, ONCE Jah jina (ANES) 01-11 l 14:08: [place] 00 ondansetron 2017-0 No Route: IV, Memoria (ANES) 01-11 Drug form: l 14:06: INJ, ONCE, Kush 00 Stop date: 01/11/17 9:06:00 CDT ondansetron 2017-0 No Route: IV, Memoria (ANES) 01-11 Drug form: l 14:06: INJ, ONCE, [place] 00 Stop date: 01/11/17 9:06:00 CDT ondansetron 2017-0 No Route: IV, Memoria (ANES) 01-11 Drug form: l 14:06: INJ, ONCE, [place] 00 Stop date: 01/11/17 9:06:00 CDT ondansetron 2017-0 No Route: IV, Memoria (ANES) 01-11 Drug form: l 14:06: INJ, ONCE, [place] 00 Stop date: 01/11/17 9:06:00 CDT ondansetron 2017-0 No Route: IV, Memoria (ANES) 01-11 Drug form: l 14:06: INJ, ONCE, Stop date: 01/11/17 9:06:00 CDT ondansetron 2017-0 No Route: IV, Memoria (ANES) 01-11 Drug form: l 14:06: INJ, ONCE, Stop date: 01/11/17 9:06:00 CDT ondansetron 2017-0 No Route: IV, Memoria (ANES) 01-11 Drug form: l 14:06: INJ, ONCE, [place] 00 Stop date: 01/11/17 9:06:00 CDT ondansetron 2017-0 No Route: IV, Memoria (ANES) 01-11 Drug form: l 14:06: INJ, ONCE, [place] 00 Stop date: 01/11/17 9:06:00 CDT ondansetron 2017-0 No Route: IV, Memoria (ANES) 01-11 Drug form: l 14:06: INJ, ONCE, [place] 00 Stop date: 01/11/17 9:06:00 CDT ondansetron 2017-0 No Route: IV, Memoria (ANES) 01-11 Drug form: l 14:06: INJ, ONCE, [place] 00 Stop date: 01/11/17 9:06:00 CDT ondansetron 2017-0 No Route: IV, Memoria (ANES) 01-11 Drug form: l 14:06: INJ, ONCE, [place] 00 Stop date: 01/11/17 9:06:00 CDT ondansetron 2017-0 No Route: IV, Memoria (ANES) 01-11 Drug form: l 14:06: INJ, ONCE, [place] 00 Stop date: 01/11/17 9:06:00 CDT ondansetron 2017-0 No Route: IV, Memoria (ANES) 01-11 Drug form: l 14:06: INJ, ONCE, [place] 00 Stop date: 01/11/17 9:06:00 CDT ondansetron 2017-0 No Route: IV, Memoria (ANES) 01-11 Drug form: l 14:06: INJ, ONCE, [place] 00 Stop date: 01/11/17 9:06:00 CDT ondansetron 2017-0 No Route: IV, Memoria (ANES) 01-11 Drug form: l 14:06: INJ, ONCE, [place] 00 Stop date: 01/11/17 9:06:00 CDT ondansetron 2017-0 No Route: IV, Memoria (ANES) 01-11 Drug form: l 14:06: INJ, ONCE, [place] 00 Stop date: 01/11/17 9:06:00 CDT ondansetron 2017-0 No Route: IV, Memoria (ANES) 01-11 Drug form: l 14:06: INJ, ONCE, [place] 00 Stop date: 01/11/17 9:06:00 CDT ondansetron 2017-0 No Route: IV, Memoria (ANES) 01-11 Drug form: l 14:06: INJ, ONCE, [place] 00 Stop date: 01/11/17 9:06:00 CDT ondansetron 2017-0 No Route: IV, Memoria (ANES) 01-11 Drug form: l 14:06: INJ, ONCE, [place] 00 Stop date: 01/11/17 9:06:00 CDT ondansetron 2017-0 No Route: IV, Memoria (ANES) 01-11 Drug form: l 14:06: INJ, ONCE, [place] 00 Stop date: 01/11/17 9:06:00 CDT ondansetron 2017-0 No Route: IV, Memoria (ANES) 01-11 Drug form: l 14:06: INJ, ONCE, Stop date: 01/11/17 9:06:00 CDT ondansetron 2017-0 No Route: IV, Memoria (ANES) 01-11 Drug form: l 14:06: INJ, ONCE, Stop date: 01/11/17 9:06:00 CDT ondansetron 2017-0 No Route: IV, Memoria (ANES) 01-11 Drug form: l 14:06: INJ, ONCE, Stop date: 01/11/17 9:06:00 CDT ondansetron 2017-0 No Route: IV, Memoria (ANES) 01-11 Drug form: l 14:06: INJ, ONCE, Stop date: 01/11/17 9:06:00 CDT ondansetron 2017-0 No Route: IV, Memoria (ANES) 01-11 Drug form: l 14:06: INJ, ONCE, Stop date: 01/11/17 9:06:00 CDT ondansetron 2017-0 No Route: IV, Memoria (ANES) 01-11 Drug form: l 14:06: INJ, ONCE, Stop date: 01/11/17 9:06:00 CDT ondansetron 2017-0 No Route: IV, Memoria (ANES) 01-11 Drug form: l 14:06: INJ, ONCE, Stop date: 01/11/17 9:06:00 CDT ondansetron 2017-0 No Route: IV, Memoria (ANES) 01-11 Drug form: l 14:06: INJ, ONCE, Stop date: 01/11/17 9:06:00 CDT ondansetron 2017-0 No Route: IV, Memoria (ANES) 01-11 Drug form: l 14:06: INJ, ONCE, Stop date: 01/11/17 9:06:00 CDT ondansetron 2017-0 No Route: IV, Memoria (ANES) 01-11 Drug form: l 14:06: INJ, ONCE, Stop date: 01/11/17 9:06:00 CDT ondansetron 0 No Route: IV, Memoria (ANES) 01-11 Drug form: l 14:06: INJ, ONCE, Stop date: 01/11/17 9:06:00 CDT ondansetron No Route: IV, Memoria (ANES) 01-11 Drug form: l 14:06: INJ, ONCE, Stop date: 01/11/17 9:06:00 CDT ondansetron 0 No Route: IV, Memoria (ANES) 01-11 Drug form: l 14:06: INJ, ONCE, Stop date: 01/11/17 9:06:00 CDT ondansetron No Route: IV, Memoria (ANES) 01-11 Drug form: l 14:06: INJ, ONCE, Stop date: 01/11/17 9:06:00 CDT ondansetron No Route: IV, Memoria (ANES) 01-11 Drug form: l 14:06: INJ, ONCE, Stop date: 01/11/17 9:06:00 CDT ondansetron No Route: IV, Memoria (ANES) 01-11 Drug form: l 14:06: INJ, ONCE, Stop date: 01/11/17 9:06:00 CDT Tranexamic No Notes: Memor ia Acid 01-11 (Same As: l 13:47: Cyklokapro n) Temazepam No Notes: Memori a 01-11 (Same As: l 13:47: Restoril) Fleet Enema No 133 mL, Mem oria 01-11 Route: IA, l 13:47: Drug Form: YG, Dosing Weight 111.409, kg, Daily, PRN as needed for constipati on, Start date: 01/11/17 8:47:00 CDT, Duration: 30 day, Stop date: 02/10/17 8:46:00 CDT Diphenhydra No Notes: Jah jina mine 01-11 (Same as: l 13:47: Benadryl) Magnesium No Notes: Memori a Hydroxide 8- (Same as: l 13:47: Milk of [place] Magnesia, MOM) sodium No 1,000 mL, Memori a chloride 01-11 Rate: 75 l 0.45% 1000 13:47: ml/hr, Guillermina nn ml INJ 00 Infuse 1,000 mL over: 13.3 hr, Route: IV, Dosing Weight 111.409 kg, Total Volume: 1,000, Start date: 01/11/17 8:47:00 CDT, Duration: 30 day, Stop date: 02/10/17 8:46:00 CDT Tranexamic No Notes: Memor ia Acid 01-11 (Same As: l 13:47: Cyklokapro n) Temazepam No Notes: Memori a 01-11 (Same As: l 13:47: Restoril) Fleet Enema No 133 mL, Mem oria 01-11 Route: IA, l 13:47: Drug Form: YG, Dosing Weight 111.409, kg, Daily, PRN as needed for constipati on, Start date: 01/11/17 8:47:00 CDT, Duration: 30 day, Stop date: 02/10/17 8:46:00 CDT Diphenhydra No Notes: Jah jina mine 01-11 (Same as: l 13:47: Benadryl) Magnesium No Notes: Memori a Hydroxide - (Same as: l 13:47: Milk of [place] 00 Magnesia, MOM) sodium No 1,000 mL, Memori a chloride -08 Rate: 75 l 0.45% 1000 13:47: ml/hr, Guillermina nn ml INJ 00 Infuse 1,000 mL over: 13.3 hr, Route: IV, Dosing Weight 111.409 kg, Total Volume: 1,000, Start date: 01/11/17 8:47:00 CDT, Duration: 30 day, Stop date: 02/10/17 8:46:00 CDT Tranexamic No Notes: Memor ia Acid 8-08 (Same As: l 13:47: Cyklokapro [place] 00 n) Temazepam No Notes: Memori a 8-08 (Same As: l 13:47: Restoril) [place] 00 Fleet Enema No 133 mL, Mem oria 08 Route: IA, l 13:47: Drug Form: [place] 00 YG, Dosing Weight 111.409, kg, Daily, PRN as needed for constipati on, Start date: 01/11/17 8:47:00 CDT, Duration: 30 day, Stop date: 02/10/17 8:46:00 CDT Diphenhydra No Notes: Jah jina mine 01-11 (Same as: l 13:47: Benadryl) [place] 00 Magnesium No Notes: Memori a Hydroxide 01-11 (Same as: l 13:47: Milk of [place] 00 Magnesia, MOM) sodium No 1,000 mL, Memori a chloride 01-11 Rate: 75 l 0.45% 1000 13:47: ml/hr, Guillermina nn ml INJ 00 Infuse 1,000 mL over: 13.3 hr, Route: IV, Dosing Weight 111.409 kg, Total Volume: 1,000, Start date: 01/11/17 8:47:00 CDT, Duration: 30 day, Stop date: 02/10/17 8:46:00 CDT Tranexamic No Notes: Memor ia Acid 01-11 (Same As: l 13:47: Cyklokapro [place] 00 n) Temazepam No Notes: Memori a 01-11 (Same As: l 13:47: Restoril) [place] 00 Fleet Enema No 133 mL, Mem oria 08 Route: IA, l 13:47: Drug Form: Kush YG, Dosing Weight 111.409, kg, Daily, PRN as needed for constipati on, Start date: 01/11/17 8:47:00 CDT, Duration: 30 day, Stop date: 02/10/17 8:46:00 CDT Diphenhydra No Notes: Jah jina mine 01-11 (Same as: l 13:47: Benadryl) [place] Magnesium No Notes: Memori a Hydroxide 8-08 (Same as: l 13:47: Milk of [place]esia, MOM) sodium No 1,000 mL, Memori a chloride 8-08 Rate: 75 l 0.45% 1000 13:47: ml/hr, Guillermina nn ml INJ 00 Infuse 1,000 mL over: 13.3 hr, Route: IV, Dosing Weight 111.409 kg, Total Volume: 1,000, Start date: 01/11/17 8:47:00 CDT, Duration: 30 day, Stop date: 02/10/17 8:46:00 CDT Tranexamic No Notes: Memor ia Acid 8-08 (Same As: l 13:47: Cyklokapro [place] 00 n) Temazepam No Notes: Memori a 8-08 (Same As: l 13:47: Restoril) Fleet Enema No 133 mL, Mem oria 808 Route: IA, l 13:47: Drug Form: YG, Dosing Weight 111.409, kg, Daily, PRN as needed for constipati on, Start date: 01/11/17 8:47:00 CDT, Duration: 30 day, Stop date: 02/10/17 8:46:00 CDT Diphenhydra No Notes: Jah jina mine 8-08 (Same as: l 13:47: Benadryl) Magnesium No Notes: Memori a Hydroxide 8-08 (Same as: l 13:47: Milk of [place], MOM) sodium No 1,000 mL, Memori a chloride 8-08 Rate: 75 l 0.45% 1000 13:47: ml/hr, Guillermina nn ml INJ 00 Infuse 1,000 mL over: 13.3 hr, Route: IV, Dosing Weight 111.409 kg, Total Volume: 1,000, Start date: 01/11/17 8:47:00 CDT, Duration: 30 day, Stop date: 02/10/17 8:46:00 CDT Tranexamic No Notes: Memor ia Acid 8-08 (Same As: l 13:47: Cyklokapro [place] 00 n) Temazepam 2017-0 No Notes: Memori a 8-08 (Same As: l 13:47: Restoril) [place] Fleet Enema No 133 mL, Mem oria 808 Route: IA, l 13:47: Drug Form: [place] 00 YG, Dosing Weight 111.409, kg, Daily, PRN as needed for constipati on, Start date: 01/11/17 8:47:00 CDT, Duration: 30 day, Stop date: 02/10/17 8:46:00 CDT Diphenhydra No Notes: Jah jina mine 01-11 (Same as: l 13:47: Benadryl) [place] Magnesium No Notes: Memori a Hydroxide 01-11 (Same as: l 13:47: Milk of [place] Magnesia, MOM) sodium No 1,000 mL, Memori a chloride 01-11 Rate: 75 l 0.45% 1000 13:47: ml/hr, Guillermina nn ml INJ 00 Infuse 1,000 mL over: 13.3 hr, Route: IV, Dosing Weight 111.409 kg, Total Volume: 1,000, Start date: 01/11/17 8:47:00 CDT, Duration: 30 day, Stop date: 02/10/17 8:46:00 CDT Tranexamic No Notes: Memor ia Acid 01-11 (Same As: l 13:47: Cyklokapro [place] 00 n) Temazepam No Notes: Memori a 8-08 (Same As: l 13:47: Restoril) [place] Fleet Enema No 133 mL, Mem oria 808 Route: IA, l 13:47: Drug Form: [place] 00 YG, Dosing Weight 111.409, kg, Daily, PRN as needed for constipati on, Start date: 01/11/17 8:47:00 CDT, Duration: 30 day, Stop date: 02/10/17 8:46:00 CDT Diphenhydra No Notes: Jah jina mine -08 (Same as: l 13:47: Benadryl) [place] Magnesium No Notes: Memori a Hydroxide -08 (Same as: l 13:47: Milk of [place] 00 Magnesia, MOM) sodium 2017 No 1,000 mL, Memori a chloride 8 Rate: 75 l 0.45% 1000 13:47: ml/hr, Guillermina nn ml INJ 00 Infuse 1,000 mL over: 13.3 hr, Route: IV, Dosing Weight 111.409 kg, Total Volume: 1,000, Start date: 01/11/17 8:47:00 CDT, Duration: 30 day, Stop date: 02/10/17 8:46:00 CDT Tranexamic No Notes: Memor ia Acid 8- (Same As: l 13:47: Cyklokapro [place] n) Temazepam No Notes: Memori a 8- (Same As: l 13:47: Restoril) Fleet Enema No 133 mL, Mem oria 01-11 Route: IA, l 13:47: Drug Form: YG, Dosing Weight 111.409, kg, Daily, PRN as needed for constipati on, Start date: 01/11/17 8:47:00 CDT, Duration: 30 day, Stop date: 02/10/17 8:46:00 CDT Diphenhydra No Notes: Jah jina mine 01-11 (Same as: l 13:47: Benadryl) Magnesium No Notes: Memori a Hydroxide 01-11 (Same as: l 13:47: Milk of [place] Magnesia, MOM) sodium 2017 No 1,000 mL, Memori a chloride 8 Rate: 75 l 0.45% 1000 13:47: ml/hr, Guillermina nn ml INJ 00 Infuse 1,000 mL over: 13.3 hr, Route: IV, Dosing Weight 111.409 kg, Total Volume: 1,000, Start date: 01/11/17 8:47:00 CDT, Duration: 30 day, Stop date: 02/10/17 8:46:00 CDT Tranexamic No Notes: Memor ia Acid 8-08 (Same As: l 13:47: Cyklokapro [place] 00 n) Temazepam No Notes: Memori a 8-08 (Same As: l 13:47: Restoril) [place] 00 Fleet Enema No 133 mL, Mem oria 8-08 Route: IA, l 13:47: Drug Form: [place] 00 YG, Dosing Weight 111.409, kg, Daily, PRN as needed for constipati on, Start date: 01/11/17 8:47:00 CDT, Duration: 30 day, Stop date: 02/10/17 8:46:00 CDT Diphenhydra 2016-0 No Notes: Jah jina mine 8- (Same as: l 13:47: Benadryl) Magnesium No Notes: Memori a Hydroxide 8- (Same as: l 13:47: Milk of [place] 00 Magnesia, MOM) sodium No 1,000 mL, Memori a chloride 01-11 Rate: 75 l 0.45% 1000 13:47: ml/hr, Guillermina nn ml INJ 00 Infuse 1,000 mL over: 13.3 hr, Route: IV, Dosing Weight 111.409 kg, Total Volume: 1,000, Start date: 01/11/17 8:47:00 CDT, Duration: 30 day, Stop date: 02/10/17 8:46:00 CDT Tranexamic No Notes: Memor ia Acid - (Same As: l 13:47: Cyklokapro n) Temazepam No Notes: Memori a 8-08 (Same As: l 13:47: Restoril) Fleet Enema No 133 mL, Mem oria 808 Route: IA, l 13:47: Drug Form: [place] 00 YG, Dosing Weight 111.409, kg, Daily, PRN as needed for constipati on, Start date: 01/11/17 8:47:00 CDT, Duration: 30 day, Stop date: 02/10/17 8:46:00 CDT Diphenhydra 0 No Notes: Jah jina mine 8-08 (Same as: l 13:47: Benadryl) Magnesium 2016- No Notes: Memori a Hydroxide 8-08 (Same as: l 13:47: Milk of [place], MOM) sodium No 1,000 mL, Memori a chloride 8-08 Rate: 75 l 0.45% 1000 13:47: ml/hr, Guillermina nn ml INJ 00 Infuse 1,000 mL over: 13.3 hr, Route: IV, Dosing Weight 111.409 kg, Total Volume: 1,000, Start date: 01/11/17 8:47:00 CDT, Duration: 30 day, Stop date: 02/10/17 8:46:00 CDT Tranexamic No Notes: Memor ia Acid 8-08 (Same As: l 13:47: Cyklokapro [place] 00 n) Temazepam No Notes: Memori a 8-08 (Same As: l 13:47: Restoril) [place] Fleet Enema No 133 mL, Mem oria 808 Route: IA, l 13:47: Drug Form: [place] YG, Dosing Weight 111.409, kg, Daily, PRN as needed for constipati on, Start date: 01/11/17 8:47:00 CDT, Duration: 30 day, Stop date: 02/10/17 8:46:00 CDT Diphenhydra No Notes: Jah jina mine 01-11 (Same as: l 13:47: Benadryl) Magnesium No Notes: Memori a Hydroxide 01-11 (Same as: l 13:47: Milk of [place] 00 Magnesia, MOM) sodium No 1,000 mL, Memori a chloride 808 Rate: 75 l 0.45% 1000 13:47: ml/hr, Guillermina nn ml INJ 00 Infuse 1,000 mL over: 13.3 hr, Route: IV, Dosing Weight 111.409 kg, Total Volume: 1,000, Start date: 01/11/17 8:47:00 CDT, Duration: 30 day, Stop date: 02/10/17 8:46:00 CDT Tranexamic No Notes: Memor ia Acid 8-08 (Same As: l 13:47: Cyklokapro [place] 00 n) Temazepam No Notes: Memori a 8-08 (Same As: l 13:47: Restoril) [place] Fleet Enema No 133 mL, Mem oria 8-08 Route: IA, l 13:47: Drug Form: [place] 00 YG, Dosing Weight 111.409, kg, Daily, PRN as needed for constipati on, Start date: 01/11/17 8:47:00 CDT, Duration: 30 day, Stop date: 02/10/17 8:46:00 CDT Diphenhydra No Notes: Jah jina mine 8-08 (Same as: l 13:47: Benadryl) Magnesium No Notes: Memori a Hydroxide 8-08 (Same as: l 13:47: Milk of [place] Magnesia, MOM) sodium No 1,000 mL, Memori a chloride 01-11 Rate: 75 l 0.45% 1000 13:47: ml/hr, Guillermina nn ml INJ 00 Infuse 1,000 mL over: 13.3 hr, Route: IV, Dosing Weight 111.409 kg, Total Volume: 1,000, Start date: 01/11/17 8:47:00 CDT, Duration: 30 day, Stop date: 02/10/17 8:46:00 CDT Tranexamic No Notes: Memor ia Acid -08 (Same As: l 13:47: Cyklokapro n) Temazepam No Notes: Memori a 8-08 (Same As: l 13:47: Restoril) Fleet Enema No 133 mL, Mem oria 8-08 Route: IA, l 13:47: Drug Form: [place] 00 YG, Dosing Weight 111.409, kg, Daily, PRN as needed for constipati on, Start date: 01/11/17 8:47:00 CDT, Duration: 30 day, Stop date: 02/10/17 8:46:00 CDT Diphenhydra No Notes: Jah jina mine 8-08 (Same as: l 13:47: Benadryl) Magnesium No Notes: Memori a Hydroxide 8-08 (Same as: l 13:47: Milk of [place] 00 Magnesia, MOM) sodium No 1,000 mL, Memori a chloride 8-08 Rate: 75 l 0.45% 1000 13:47: ml/hr, Guillermina nn ml INJ 00 Infuse 1,000 mL over: 13.3 hr, Route: IV, Dosing Weight 111.409 kg, Total Volume: 1,000, Start date: 01/11/17 8:47:00 CDT, Duration: 30 day, Stop date: 02/10/17 8:46:00 CDT Tranexamic No Notes: Memor ia Acid 8- (Same As: l 13:47: Cyklokapro [place] 00 n) Temazepam No Notes: Memori a 8- (Same As: l 13:47: Restoril) [place] 00 Fleet Enema No 133 mL, Mem oria 8 Route: IA, l 13:47: Drug Form: [place] 00 YG, Dosing Weight 111.409, kg, Daily, PRN as needed for constipati on, Start date: 01/11/17 8:47:00 CDT, Duration: 30 day, Stop date: 02/10/17 8:46:00 CDT Diphenhydra No Notes: Jah jina mine 01-11 (Same as: l 13:47: Benadryl) [place] 00 Magnesium No Notes: Memori a Hydroxide 01-11 (Same as: l 13:47: Milk of [place] 00 Magnesia, MOM) sodium No 1,000 mL, Memori a chloride 01-11 Rate: 75 l 0.45% 1000 13:47: ml/hr, Guillermina nn ml INJ 00 Infuse 1,000 mL over: 13.3 hr, Route: IV, Dosing Weight 111.409 kg, Total Volume: 1,000, Start date: 01/11/17 8:47:00 CDT, Duration: 30 day, Stop date: 02/10/17 8:46:00 CDT Tranexamic No Notes: Memor ia Acid 8-08 (Same As: l 13:47: Cyklokapro [place] 00 n) Temazepam No Notes: Memori a 8-08 (Same As: l 13:47: Restoril) [place] Fleet Enema No 133 mL, Mem oria 808 Route: IA, l 13:47: Drug Form: [place] 00 YG, Dosing Weight 111.409, kg, Daily, PRN as needed for constipati on, Start date: 01/11/17 8:47:00 CDT, Duration: 30 day, Stop date: 02/10/17 8:46:00 CDT Diphenhydra No Notes: Jah jina mine 8-08 (Same as: l 13:47: Benadryl) [place] 00 Magnesium No Notes: Memori a Hydroxide 8-08 (Same as: l 13:47: Milk of [place] 00 Magnesia, MOM) sodium No 1,000 mL, Memori a chloride 8-08 Rate: 75 l 0.45% 1000 13:47: ml/hr, Guillermina nn ml INJ 00 Infuse 1,000 mL over: 13.3 hr, Route: IV, Dosing Weight 111.409 kg, Total Volume: 1,000, Start date: 01/11/17 8:47:00 CDT, Duration: 30 day, Stop date: 02/10/17 8:46:00 CDT Tranexamic No Notes: Memor ia Acid 8-08 (Same As: l 13:47: Cyklokapro n) Temazepam No Notes: Memori a 8-08 (Same As: l 13:47: Restoril) Fleet Enema No 133 mL, Mem oria 808 Route: IA, l 13:47: Drug Form: [place] 00 YG, Dosing Weight 111.409, kg, Daily, PRN as needed for constipati on, Start date: 01/11/17 8:47:00 CDT, Duration: 30 day, Stop date: 02/10/17 8:46:00 CDT Diphenhydra No Notes: Jah jina mine 8-08 (Same as: l 13:47: Benadryl) [place] 00 Magnesium No Notes: Memori a Hydroxide 8-08 (Same as: l 13:47: Milk of [place] 00 Magnesia, MOM) sodium 2017 No 1,000 mL, Memori a chloride 8-08 Rate: 75 l 0.45% 1000 13:47: ml/hr, Guillermina nn ml INJ 00 Infuse 1,000 mL over: 13.3 hr, Route: IV, Dosing Weight 111.409 kg, Total Volume: 1,000, Start date: 01/11/17 8:47:00 CDT, Duration: 30 day, Stop date: 02/10/17 8:46:00 CDT Tranexamic No Notes: Memor ia Acid 8-08 (Same As: l 13:47: Cyklokapro [place] 00 n) Temazepam No Notes: Memori a 8-08 (Same As: l 13:47: Restoril) [place] Fleet Enema No 133 mL, Mem oria 8-08 Route: IA, l 13:47: Drug Form: [place] 00 YG, Dosing Weight 111.409, kg, Daily, PRN as needed for constipati on, Start date: 01/11/17 8:47:00 CDT, Duration: 30 day, Stop date: 02/10/17 8:46:00 CDT Diphenhydra No Notes: Jah jina mine 01-11 (Same as: l 13:47: Benadryl) [place] 00 Magnesium No Notes: Memori a Hydroxide 01-11 (Same as: l 13:47: Milk of [place] 00 Magnesia, MOM) sodium No 1,000 mL, Memori a chloride 01-11 Rate: 75 l 0.45% 1000 13:47: ml/hr, Guillermina nn ml INJ 00 Infuse 1,000 mL over: 13.3 hr, Route: IV, Dosing Weight 111.409 kg, Total Volume: 1,000, Start date: 01/11/17 8:47:00 CDT, Duration: 30 day, Stop date: 02/10/17 8:46:00 CDT Tranexamic No Notes: Memor ia Acid 8-08 (Same As: l 13:47: Cyklokapro [place] 00 n) Temazepam 2016-0 No Notes: Memori a 8-08 (Same As: l 13:47: Restoril) [place] Fleet Enema 0 No 133 mL, Mem oria 8-08 Route: IA, l 13:47: Drug Form: [place] 00 YG, Dosing Weight 111.409, kg, Daily, PRN as needed for constipati on, Start date: 01/11/17 8:47:00 CDT, Duration: 30 day, Stop date: 02/10/17 8:46:00 CDT Diphenhydra 2016- No Notes: Jah jina mine 8-08 (Same as: l 13:47: Benadryl) [place] 00 Magnesium No Notes: Memori a Hydroxide 8-08 (Same as: l 13:47: Milk of [place] 00 Magnesia, MOM) sodium No 1,000 mL, Memori a chloride 8-08 Rate: 75 l 0.45% 1000 13:47: ml/hr, Guillermina nn ml INJ 00 Infuse 1,000 mL over: 13.3 hr, Route: IV, Dosing Weight 111.409 kg, Total Volume: 1,000, Start date: 01/11/17 8:47:00 CDT, Duration: 30 day, Stop date: 02/10/17 8:46:00 CDT Tranexamic No Notes: Memor ia Acid - (Same As: l 13:47: Cyklokapro n) Temazepam No Notes: Memori a 8-08 (Same As: l 13:47: Restoril) Fleet Enema No 133 mL, Mem oria 08 Route: IA, l 13:47: Drug Form: YG, Dosing Weight 111.409, kg, Daily, PRN as needed for constipati on, Start date: 01/11/17 8:47:00 CDT, Duration: 30 day, Stop date: 02/10/17 8:46:00 CDT Diphenhydra No Notes: Jah jina mine 8-08 (Same as: l 13:47: Benadryl) [place] 00 Magnesium No Notes: Memori a Hydroxide 8-08 (Same as: l 13:47: Milk of [place] 00 Magnesia, MOM) sodium 2017 No 1,000 mL, Memori a chloride 8-08 Rate: 75 l 0.45% 1000 13:47: ml/hr, Gulilermina nn ml INJ 00 Infuse 1,000 mL over: 13.3 hr, Route: IV, Dosing Weight 111.409 kg, Total Volume: 1,000, Start date: 01/11/17 8:47:00 CDT, Duration: 30 day, Stop date: 02/10/17 8:46:00 CDT Tranexamic No Notes: Memor ia Acid 8-08 (Same As: l 13:47: Cyklokapro [place] 00 n) Temazepam No Notes: Memori a 8-08 (Same As: l 13:47: Restoril) [place] Fleet Enema No 133 mL, Mem oria 808 Route: IA, l 13:47: Drug Form: [place] 00 YG, Dosing Weight 111.409, kg, Daily, PRN as needed for constipati on, Start date: 01/11/17 8:47:00 CDT, Duration: 30 day, Stop date: 02/10/17 8:46:00 CDT Diphenhydra No Notes: Jah jina mine 01-11 (Same as: l 13:47: Benadryl) Kush 00 Magnesium No Notes: Memori a Hydroxide 01-11 (Same as: l 13:47: Milk of [place] 00 Magnesia, MOM) sodium No 1,000 mL, Memori a chloride 01-11 Rate: 75 l 0.45% 1000 13:47: ml/hr, Guillermina nn ml INJ 00 Infuse 1,000 mL over: 13.3 hr, Route: IV, Dosing Weight 111.409 kg, Total Volume: 1,000, Start date: 01/11/17 8:47:00 CDT, Duration: 30 day, Stop date: 02/10/17 8:46:00 CDT Tranexamic No Notes: Memor ia Acid 8-08 (Same As: l 13:47: Cyklokapro Kush 00 n) Temazepam No Notes: Memori a 8-08 (Same As: l 13:47: Restoril) Kush 00 Fleet Enema 0 No 133 mL, Mem oria 8-08 Route: IA, l 13:47: Drug Form: [place] 00 YG, Dosing Weight 111.409, kg, Daily, PRN as needed for constipati on, Start date: 01/11/17 8:47:00 CDT, Duration: 30 day, Stop date: 02/10/17 8:46:00 CDT Diphenhydra 2016- No Notes: Jah jina mine 8-08 (Same as: l 13:47: Benadryl) [place] Magnesium No Notes: Memori a Hydroxide 8-08 (Same as: l 13:47: Milk of [place] 00 Magnesia, MOM) sodium 2017- No 1,000 mL, Memori a chloride 8-08 Rate: 75 l 0.45% 1000 13:47: ml/hr, Guillermina nn ml INJ 00 Infuse 1,000 mL over: 13.3 hr, Route: IV, Dosing Weight 111.409 kg, Total Volume: 1,000, Start date: 01/11/17 8:47:00 CDT, Duration: 30 day, Stop date: 02/10/17 8:46:00 CDT Tranexamic No Notes: Memor ia Acid 8-08 (Same As: l 13:47: Cyklokapro [place] 00 n) Temazepam No Notes: Memori a 8-08 (Same As: l 13:47: Restoril) Fleet Enema No 133 mL, Mem oria 08 Route: IA, l 13:47: Drug Form: [place] 00 YG, Dosing Weight 111.409, kg, Daily, PRN as needed for constipati on, Start date: 01/11/17 8:47:00 CDT, Duration: 30 day, Stop date: 02/10/17 8:46:00 CDT Diphenhydra No Notes: Jah jina mine 8-08 (Same as: l 13:47: Benadryl) Kush Magnesium No Notes: Memori a Hydroxide 8-08 (Same as: l 13:47: Milk of Kush 00 Magnesia, MOM) Tranexamic No Notes: Memor ia Acid 8-08 (Same As: l 13:47: Cyklokapro Kush 00 n) sodium 2017- No 1,000 mL, Memori a chloride 8-08 Rate: 75 l 0.45% 1000 13:47: ml/hr, Guillermina nn ml INJ 00 Infuse 1,000 mL over: 13.3 hr, Route: IV, Dosing Weight 111.409 kg, Total Volume: 1,000, Start date: 01/11/17 8:47:00 CDT, Duration: 30 day, Stop date: 02/10/17 8:46:00 CDT Temazepam No Notes: Memori a 01-11 (Same As: l 13:47: Restoril) Tranexamic No Notes: Memor ia Acid 01-11 (Same As: l 13:47: Cyklokapro Kush 00 n) Temazepam No Notes: Memori a 01-11 (Same As: l 13:47: Restoril) Fleet Enema No 133 mL, Mem oria 01-11 Route: IA, l 13:47: Drug Form: [place] 00 YG, Dosing Weight 111.409, kg, Daily, PRN as needed for constipati on, Start date: 01/11/17 8:47:00 CDT, Duration: 30 day, Stop date: 02/10/17 8:46:00 CDT Diphenhydra No Notes: Jah jina mine 01-11 (Same as: l 13:47: Benadryl) Magnesium No Notes: Memori a Hydroxide 01-11 (Same as: l 13:47: Milk of [place] 00 Magnes[place], MOM) sodium No 1,000 mL, Memori a chloride 01-11 Rate: 75 l 0.45% 1000 13:47: ml/hr, Guillermina nn ml INJ 00 Infuse 1,000 mL over: 13.3 hr, Route: IV, Dosing Weight 111.409 kg, Total Volume: 1,000, Start date: 01/11/17 8:47:00 CDT, Duration: 30 day, Stop date: 02/10/17 8:46:00 CDT Fleet Enema No 133 mL, Mem oria 01-11 Route: IA, l 13:47: Drug Form: Kush 00 YG, Dosing Weight 111.409, kg, Daily, PRN as needed for constipati on, Start date: 01/11/17 8:47:00 CDT, Duration: 30 day, Stop date: 02/10/17 8:46:00 CDT Tranexamic No Notes: Memor ia Acid 8-08 (Same As: l 13:47: Cyklokapro Kush 00 n) Temazepam No Notes: Memori a 8-08 (Same As: l 13:47: Restoril) [place] Fleet Enema No 133 mL, Mem oria 8-08 Route: IA, l 13:47: Drug Form: Kush 00 YG, Dosing Weight 111.409, kg, Daily, PRN as needed for constipati on, Start date: 01/11/17 8:47:00 CDT, Duration: 30 day, Stop date: 02/10/17 8:46:00 CDT Diphenhydra No Notes: Jah jina mine 8-08 (Same as: l 13:47: Benadryl) Kush 00 Magnesium No Notes: Memori a Hydroxide 8-08 (Same as: l 13:47: Milk of Kush 00 Magnesia, MOM) sodium No 1,000 mL, Memori a chloride 01-11 Rate: 75 l 0.45% 1000 13:47: ml/hr, Guillermina nn ml INJ 00 Infuse 1,000 mL over: 13.3 hr, Route: IV, Dosing Weight 111.409 kg, Total Volume: 1,000, Start date: 01/11/17 8:47:00 CDT, Duration: 30 day, Stop date: 02/10/17 8:46:00 CDT Diphenhydra No Notes: Jah jina mine 8-08 (Same as: l 13:47: Benadryl) Kush 00 Magnesium No Notes: Memori a Hydroxide 8-08 (Same as: l 13:47: Milk of Kush 00 Magnesia, MOM) Tranexamic No Notes: Memor ia Acid 8-08 (Same As: l 13:47: Cyklokapro [place] 00 n) Temazepam No Notes: Memori a 8-08 (Same As: l 13:47: Restoril) [place] 00 Fleet Enema No 133 mL, Mem oria 8-08 Route: IA, l 13:47: Drug Form: [place] 00 YG, Dosing Weight 111.409, kg, Daily, PRN as needed for constipati on, Start date: 01/11/17 8:47:00 CDT, Duration: 30 day, Stop date: 02/10/17 8:46:00 CDT Diphenhydra No Notes: Jah jina mine 01-11 (Same as: l 13:47: Benadryl) Magnesium No Notes: Memori a Hydroxide 01-11 (Same as: l 13:47: Milk of Kush 00 Magnesia, MOM) sodium No 1,000 mL, Memori a chloride 01-11 Rate: 75 l 0.45% 1000 13:47: ml/hr, Guillermina nn ml INJ 00 Infuse 1,000 mL over: 13.3 hr, Route: IV, Dosing Weight 111.409 kg, Total Volume: 1,000, Start date: 01/11/17 8:47:00 CDT, Duration: 30 day, Stop date: 02/10/17 8:46:00 CDT sodium No 1,000 mL, Memori a chloride 01-11 Rate: 75 l 0.45% 1000 13:47: ml/hr, Guillermina nn ml INJ 00 Infuse 1,000 mL over: 13.3 hr, Route: IV, Dosing Weight 111.409 kg, Total Volume: 1,000, Start date: 01/11/17 8:47:00 CDT, Duration: 30 day, Stop date: 02/10/17 8:46:00 CDT Tranexamic No Notes: Memor ia Acid 01-11 (Same As: l 13:47: Cyklokapro n) Temazepam No Notes: Memori a 01-11 (Same As: l 13:47: Restoril) Fleet Enema No 133 mL, Mem oria 01-11 Route: IA, l 13:47: Drug Form: YG, Dosing Weight 111.409, kg, Daily, PRN as needed for constipati on, Start date: 01/11/17 8:47:00 CDT, Duration: 30 day, Stop date: 02/10/17 8:46:00 CDT Diphenhydra No Notes: Jah jina mine 01-11 (Same as: l 13:47: Benadryl) Magnesium 2016- No Notes: Memori a Hydroxide 8- (Same as: l 13:47: Milk of [place] Magnesia, MOM) sodium No 1,000 mL, Memori a chloride 01-11 Rate: 75 l 0.45% 1000 13:47: ml/hr, Guillermina nn ml INJ 00 Infuse 1,000 mL over: 13.3 hr, Route: IV, Dosing Weight 111.409 kg, Total Volume: 1,000, Start date: 01/11/17 8:47:00 CDT, Duration: 30 day, Stop date: 02/10/17 8:46:00 CDT Tranexamic No Notes: Memor ia Acid 01-11 (Same As: l 13:47: Cyklokapro n) Temazepam No Notes: Memori a 01-11 (Same As: l 13:47: Restoril) Fleet Enema No 133 mL, Mem oria 01-11 Route: IA, l 13:47: Drug Form: YG, Dosing Weight 111.409, kg, Daily, PRN as needed for constipati on, Start date: 01/11/17 8:47:00 CDT, Duration: 30 day, Stop date: 02/10/17 8:46:00 CDT Diphenhydra No Notes: Jah jina mine 01-11 (Same as: l 13:47: Benadryl) Magnesium No Notes: Memori a Hydroxide - (Same as: l 13:47: Milk of Kush 00 Magnesia, MOM) sodium No 1,000 mL, Memori a chloride -08 Rate: 75 l 0.45% 1000 13:47: ml/hr, Guillermina nn ml INJ 00 Infuse 1,000 mL over: 13.3 hr, Route: IV, Dosing Weight 111.409 kg, Total Volume: 1,000, Start date: 01/11/17 8:47:00 CDT, Duration: 30 day, Stop date: 02/10/17 8:46:00 CDT Tranexamic No Notes: Memor ia Acid 8- (Same As: l 13:47: Cyklokapro [place] 00 n) Temazepam 0 No Notes: Memori a 8-08 (Same As: l 13:47: Restoril) [place] 00 Fleet Enema No 133 mL, Mem oria 808 Route: IA, l 13:47: Drug Form: Kush 00 YG, Dosing Weight 111.409, kg, Daily, PRN as needed for constipati on, Start date: 01/11/17 8:47:00 CDT, Duration: 30 day, Stop date: 02/10/17 8:46:00 CDT Diphenhydra No Notes: Jah jina mine 01-11 (Same as: l 13:47: Benadryl) [place] 00 Magnesium No Notes: Memori a Hydroxide 01-11 (Same as: l 13:47: Milk of Kush 00 Magnesia, MOM) sodium No 1,000 mL, Memori a chloride 01-11 Rate: 75 l 0.45% 1000 13:47: ml/hr, Guillermina nn ml INJ 00 Infuse 1,000 mL over: 13.3 hr, Route: IV, Dosing Weight 111.409 kg, Total Volume: 1,000, Start date: 01/11/17 8:47:00 CDT, Duration: 30 day, Stop date: 02/10/17 8:46:00 CDT Tranexamic No Notes: Memor ia Acid - (Same As: l 13:47: Cyklokapro Kush 00 n) Temazepam 0 No Notes: Memori a - (Same As: l 13:47: Restoril) [place] 00 Fleet Enema 0 No 133 mL, Mem oria 08 Route: IA, l 13:47: Drug Form: Kush 00 YG, Dosing Weight 111.409, kg, Daily, PRN as needed for constipati on, Start date: 01/11/17 8:47:00 CDT, Duration: 30 day, Stop date: 02/10/17 8:46:00 CDT Diphenhydra 0 No Notes: Jah jina mine 01-11 (Same as: l 13:47: Benadryl) [place] Magnesium No Notes: Memori a Hydroxide 8-08 (Same as: l 13:47: Milk of [place] 00 Magnesia, MOM) sodium 2017 No 1,000 mL, Memori a chloride 8 Rate: 75 l 0.45% 1000 13:47: ml/hr, Guillermina nn ml INJ 00 Infuse 1,000 mL over: 13.3 hr, Route: IV, Dosing Weight 111.409 kg, Total Volume: 1,000, Start date: 01/11/17 8:47:00 CDT, Duration: 30 day, Stop date: 02/10/17 8:46:00 CDT Tranexamic No Notes: Memor ia Acid 8- (Same As: l 13:47: Cyklokapro Kush 00 n) Temazepam No Notes: Memori a 8-08 (Same As: l 13:47: Restoril) Tranexamic No Notes: Memor ia Acid 8- (Same As: l 13:47: Cyklokapro [place] 00 n) Temazepam No Notes: Memori a 8-08 (Same As: l 13:47: Restoril) Fleet Enema No 133 mL, Mem oria 01-11 Route: IA, l 13:47: Drug Form: YG, Dosing Weight 111.409, kg, Daily, PRN as needed for constipati on, Start date: 01/11/17 8:47:00 CDT, Duration: 30 day, Stop date: 02/10/17 8:46:00 CDT Diphenhydra No Notes: Jah jina mine 01-11 (Same as: l 13:47: Benadryl) Magnesium No Notes: Memori a Hydroxide 8- (Same as: l 13:47: Milk of Kush 00 Magnesia, MOM) sodium No 1,000 mL, Memori a chloride 08 Rate: 75 l 0.45% 1000 13:47: ml/hr, Guillermina nn ml INJ 00 Infuse 1,000 mL over: 13.3 hr, Route: IV, Dosing Weight 111.409 kg, Total Volume: 1,000, Start date: 01/11/17 8:47:00 CDT, Duration: 30 day, Stop date: 02/10/17 8:46:00 CDT Fleet Enema No 133 mL, Mem oria 808 Route: IA, l 13:47: Drug Form: [place] 00 YG, Dosing Weight 111.409, kg, Daily, PRN as needed for constipati on, Start date: 01/11/17 8:47:00 CDT, Duration: 30 day, Stop date: 02/10/17 8:46:00 CDT Diphenhydra No Notes: Jah jina mine - (Same as: l 13:47: Benadryl) Magnesium No Notes: Memori a Hydroxide 01-11 (Same as: l 13:47: Milk of Magnesia, MOM) sodium No 1,000 mL, Memori a chloride 01-11 Rate: 75 l 0.45% 1000 13:47: ml/hr, Guillermina nn ml INJ 00 Infuse 1,000 mL over: 13.3 hr, Route: IV, Dosing Weight 111.409 kg, Total Volume: 1,000, Start date: 01/11/17 8:47:00 CDT, Duration: 30 day, Stop date: 02/10/17 8:46:00 CDT Tranexamic No Notes: Memor ia Acid 01-11 (Same As: l 13:47: Cyklokapro n) Temazepam No Notes: Memori a 8- (Same As: l 13:47: Restoril) Fleet Enema No 133 mL, Mem oria 808 Route: IA, l 13:47: Drug Form: Kush YG, Dosing Weight 111.409, kg, Daily, PRN as needed for constipati on, Start date: 01/11/17 8:47:00 CDT, Duration: 30 day, Stop date: 02/10/17 8:46:00 CDT Diphenhydra No Notes: Jah jina mine -08 (Same as: l 13:47: Benadryl) Kush 00 Magnesium No Notes: Memori a Hydroxide -08 (Same as: l 13:47: Milk of Kush Magnesia, MOM) sodium 2017 No 1,000 mL, Memori a chloride 8 Rate: 75 l 0.45% 1000 13:47: ml/hr, Guillermina nn ml INJ 00 Infuse 1,000 mL over: 13.3 hr, Route: IV, Dosing Weight 111.409 kg, Total Volume: 1,000, Start date: 01/11/17 8:47:00 CDT, Duration: 30 day, Stop date: 02/10/17 8:46:00 CDT Tranexamic No Notes: Memor ia Acid 8-08 (Same As: l 13:47: Cyklokapro Kush 00 n) Temazepam No Notes: Memori a 01-11 (Same As: l 13:47: Restoril) Fleet Enema No 133 mL, Mem oria 08 Route: IA, l 13:47: Drug Form: YG, Dosing Weight 111.409, kg, Daily, PRN as needed for constipati on, Start date: 01/11/17 8:47:00 CDT, Duration: 30 day, Stop date: 02/10/17 8:46:00 CDT Diphenhydra No Notes: Jah jina mine 01-11 (Same as: l 13:47: Benadryl) Magnesium No Notes: Memori a Hydroxide 01-11 (Same as: l 13:47: Milk of Kush 00 Magnesia, MOM) sodium 2017 No 1,000 mL, Memori a chloride 8 Rate: 75 l 0.45% 1000 13:47: ml/hr, Guillermina nn ml INJ 00 Infuse 1,000 mL over: 13.3 hr, Route: IV, Dosing Weight 111.409 kg, Total Volume: 1,000, Start date: 01/11/17 8:47:00 CDT, Duration: 30 day, Stop date: 02/10/17 8:46:00 CDT Tranexamic No Notes: Memor ia Acid 8-08 (Same As: l 13:47: Cyklokapro Kush 00 n) Temazepam No Notes: Memori a 8-08 (Same As: l 13:47: Restoril) Kush 00 Fleet Enema 0 No 133 mL, Mem oria 8-08 Route: IA, l 13:47: Drug Form: Kush 00 YG, Dosing Weight 111.409, kg, Daily, PRN as needed for constipati on, Start date: 01/11/17 8:47:00 CDT, Duration: 30 day, Stop date: 02/10/17 8:46:00 CDT Diphenhydra No Notes: Jah jina mine 8- (Same as: l 13:47: Benadryl) Magnesium No Notes: Memori a Hydroxide 01-11 (Same as: l 13:47: Milk of Kush Magnesia, MOM) sodium No 1,000 mL, Memori a chloride 01-11 Rate: 75 l 0.45% 1000 13:47: ml/hr, Guillermina nn ml INJ 00 Infuse 1,000 mL over: 13.3 hr, Route: IV, Dosing Weight 111.409 kg, Total Volume: 1,000, Start date: 01/11/17 8:47:00 CDT, Duration: 30 day, Stop date: 02/10/17 8:46:00 CDT Tranexamic No Notes: Memor ia Acid 01-11 (Same As: l 13:47: Cyklokapro n) Temazepam No Notes: Memori a - (Same As: l 13:47: Restoril) Fleet Enema No 133 mL, Mem oria 808 Route: IA, l 13:47: Drug Form: [place] 00 YG, Dosing Weight 111.409, kg, Daily, PRN as needed for constipati on, Start date: 01/11/17 8:47:00 CDT, Duration: 30 day, Stop date: 02/10/17 8:46:00 CDT Diphenhydra 2016-0 No Notes: Jah jina mine 01-11 (Same as: l 13:47: Benadryl) Magnesium 2016- No Notes: Memori a Hydroxide - (Same as: l 13:47: Milk of Kush 00 Magnesia, MOM) sodium No 1,000 mL, [...] Roll in l Human 13:46: palms of [place] 00 hands gently; Do not shake vigorously . (Same as: NovoLOG) "single patient use only" WASTE: F/P - Black; E - Municipal Trash Bin Stable for 28 days at room temperatur e. Expires in days from ____Date 72 HR No Notes: Memoria Scopolamine 01-11 Change l 0.0139 13:46: patch [place] MG/HR 00 every 72 Transdermal hours Patch (Same as: Transderm- Scop) Midazolam No Notes: Memori a 01-11 (Same as: l 13:46: Versed) MEDICATION WASTE Product Size: 2 mg Product Wasted: ___ mg Naloxone No Notes: Memoria 01-11 Same as l 13:46: Narcan [place] 00 Meperidine No Notes: Memor ia 01-11 (Same as: l 13:46: Demerol) "Use Precaution in Elderly, Seizure disorders, and Renal impairment " Promethazin No Notes: Do M emoria e 01-11 not give l 13:46: IV push. [place] (Same as: Phenergan) Ondansetron No Notes: Jah [...] Mem oria 01-11 MEDICATION l 13:46: WASTE [place] 00 Product Size: 0.4 mg Product Wasted: ___ mg Albuterol No Notes: Memori a 0.833 MG/ML 01-11 (Same as: l / 13:46: Duoneb) Ipratropium 00 [place] 0.167 MG/ML Inhalant Solution [DuoNeb] Phenylephri No Notes: Jah jina ne 01-11 Same as: l 13:46: Yassine-Syneph rine Acetazolami No Notes: Jah jina de 01-11 (Same as: l 13:46: Diamox) [place] 00 ANES No Notes: Memoria albuterol 01-11 Same as: l 90 mcg/inh 13:46: Ventolin Her lawson inhalation 00 HFA WASTE: aerosol Aerosol - Return to Pharmacy celecoxib No Notes: Memori a 01-11 NSAID. l 13:46: Please Kush 00 check indication . Not for seizure. (Same As: CeleBREX) Flumazenil No Notes: Memor ia 01-11 (Same as: l 13:46: Romazicon) Ephedrine No Notes: Memori a 01-11 final l 13:46: concentrat ion 5 mg/mL Dexamethaso No Notes: Jah jina ne 01-11 Concentrat l 13:46: ion: Kush 00 4mg/ml Hydromorpho No Notes: Jah jina ne 01-11 Same as l 13:46: Dilaudid Oxycodone No Notes: Memori a 01-11 (Same as: l 13:46: Roxicodone ) Morphine No Notes: Memoria 01-11 (Same l 13:46: as:MORPhin Kush 00 e Sulfate) Metoprolol No Notes: Memor ia 01-11 (Same as: l 13:46: Lopressor) [place] 00 Push over 2 minutes Acetaminoph No Notes: Max Memoria en 01-11 acetaminop l 13:46: hen 4000 Kush 00 mg/day (4 gm/day). (Same as: Tylenol Extra Strength) Labetalol No Notes: Memori a 01-11 (Same as: l 13:46: Normodyne, Kush 00 Trandate) Push over 2 minutes Give bolus over 2-3 minutes. Ibuprofen No Notes: Memori a 01-11 (Same as: l 13:46: Motrin) Kush 00 "Do Not Crush" Take with food. Hydralazine No Notes: Jah jina 01-11 (Same as: l 13:46: Apresoline [place] 00 ) Push over 5 minutes Calcium No 1,000 mL, Memor ia Chloride 01-11 Rate: 125 l 0.0014 13:46: ml/hr, Kush MEQ/ML / 00 Infuse Potassium over: 8 Chloride hr, Route: 0.004 IV, Dosing MEQ/ML / Weight Sodium 111.409 Chloride kg, Total 0.103 Volume: MEQ/ML / 1,000, Sodium Start Lactate date: 0.028 01/11/17 MEQ/ML 8:46:00 Injectable CDT, Solution Duration: 30 day, Stop date: 02/10/17 8:45:00 CDT Insulin, No Notes: Memoria Aspart, 01-11 Roll in l Human 13:46: palms of [place] 00 hands gently; Do not shake vigorously . (Same as: NovoLOG) "single patient use only" WASTE: F/P - Black; E - Municipal Trash Bin Stable for 28 days at room temperatur e. Expires in days from ____Date 72 HR No Notes: Memoria Scopolamine 01-11 Change l 0.0139 13:46: patch [place] MG/HR 00 every 72 Transdermal hours Patch (Same as: Transderm- Scop) Midazolam No Notes: Memori a 01-11 (Same as: l 13:46: Versed) MEDICATION WASTE Product Size: 2 mg Product Wasted: ___ mg Naloxone No Notes: Memoria 01-11 Same as l 13:46: Narcan [place] 00 Meperidine No Notes: Memor ia 01-11 (Same [...] 01-11 (Same as: l / 13:46: Duoneb) Ipratropium 00 [place] 0.167 MG/ML Inhalant Solution [DuoNeb] Phenylephri No Notes: Jah jina ne 01-11 Same as: l 13:46: Yassine-Syneph rine Acetazolami No Notes: Jah jina de 01-11 (Same as: l 13:46: Diamox) ANES No Notes: Memoria albuterol 01-11 Same as: l 90 mcg/inh 13:46: Ventolin Her lawson inhalation 00 HFA WASTE: aerosol Aerosol - Return to Pharmacy celecoxib No Notes: Memori a 01-11 NSAID. l 13:46: Please [place] 00 check indication . Not for seizure. (Same As: CeleBREX) Flumazenil No Notes: Memor ia 01-11 (Same as: l 13:46: Romazicon) [place] Ephedrine No Notes: Memori a 01-11 final l 13:46: concentrat [place] 00 ion 5 mg/mL Dexamethaso No Notes: Jah jina ne 01-11 Concentrat l 13:46: ion: Kush 00 4mg/ml Hydromorpho No Notes: Jah jina ne 01-11 Same as l 13:46: Dilaudid Kush 00 Oxycodone No Notes: Memori a 01-11 (Same as: l 13:46: Roxicodone [place] 00 ) Morphine No Notes: Memoria 01-11 (Same l 13:46: as:MORPhin Kush 00 e Sulfate) Metoprolol No Notes: Memor ia 01-11 (Same as: l 13:46: Lopressor) [place] 00 Push over 2 minutes Acetaminoph No Notes: Max Memoria en 01-11 acetaminop l 13:46: hen 4000 Kush 00 mg/day (4 gm/day). (Same as: Tylenol Extra Strength) Labetalol No Notes: Memori a 01-11 (Same as: l 13:46: Normodyne, Kush 00 Trandate) Push over 2 minutes Give bolus over 2-3 minutes. Ibuprofen No Notes: Memori a 01-11 (Same as: l 13:46: Motrin) Kush 00 "Do Not Crush" Take with food. Hydralazine No Notes: Jah jina 01-11 (Same as: l 13:46: Apresoline [place] 00 ) Push over 5 minutes Calcium No 1,000 mL, Memor ia Chloride 01-11 Rate: 125 l 0.0014 13:46: ml/hr, Kush MEQ/ML / 00 Infuse Potassium over: 8 Chloride hr, Route: 0.004 IV, Dosing MEQ/ML / Weight Sodium 111.409 Chloride kg, Total 0.103 Volume: MEQ/ML / 1,000, Sodium Start Lactate date: 0.028 01/11/17 MEQ/ML 8:46:00 Injectable CDT, Solution Duration: 30 day, Stop date: 02/10/17 8:45:00 CDT Insulin, No Notes: Memoria Aspart, 01-11 [...] Memoria 01-11 Same as l 13:46: Narcan [place] 00 Meperidine No Notes: Memor ia 01-11 (Same as: l 13:46: Demerol) "Use Precaution in Elderly, Seizure disorders, and Renal impairment " Promethazin No Notes: Do M emoria e 01-11 not give l 13:46: IV push. [place] 00 (Same as: Phenergan) Ondansetron No Notes: Jah jina 01-11 (Same as: l 13:46: Zofran) [place] 00 MEDICATION WASTE Product Size: 4 mg Product Wasted: ___ mg Diphenhydra No Notes: Jah jina mine 01-11 (Same as: l 13:46: Benadryl) Albuterol No Notes: SEE Me moria 0.83 MG/ML 01-11 RT l Inhalant 13:46: DOCUMENTAT Her lawson Solution 00 ION (Same as: Proventil) Glycopyrrol No Notes: Jah jina ate 01-11 (Same as: l 13:46: Robinul) [place] Atropine No Notes: Mem oria 01-11 MEDICATION l 13:46: WASTE [place] 00 Product Size: 0.4 mg Product Wasted: ___ mg Albuterol No Notes: Memori a 0.833 MG/ML 01-11 (Same as: l / 13:46: Duoneb) Ipratropium 00 [place] 0.167 MG/ML Inhalant Solution [DuoNeb] Phenylephri No Notes: Jah jina ne 01-11 Same as: l 13:46: Yassine-Syneph [place] 00 rine Acetazolami No Notes: Jah jina de 01-11 (Same as: l 13:46: Diamox) Kush 00 ANES No Notes: Memoria albuterol 01-11 Same as: l 90 mcg/inh 13:46: Ventolin Her lawson inhalation 00 HFA WASTE: aerosol Aerosol - Return to Pharmacy celecoxib No Notes: Memori a 01-11 NSAID. l 13:46: Please [place] 00 check indication . Not for seizure. (Same As: CeleBREX) Flumazenil No Notes: Memor ia 01-11 (Same as: l 13:46: Romazicon) [place] 00 Ephedrine No Notes: Memori a 01-11 final l 13:46: concentrat [place] ion 5 mg/mL Dexamethaso No Notes: Jah jina ne 01-11 Concentrat l 13:46: ion: [place] 00 4mg/ml Hydromorpho No Notes: Jah jina ne 01-11 Same as l 13:46: Dilaudid Kush 00 Oxycodone No Notes: Memori a 01-11 (Same as: l 13:46: Roxicodone Kush 00 ) Morphine No Notes: Memoria 01-11 (Same l 13:46: as:MORPhin Kush 00 e Sulfate) Metoprolol No Notes: Memor ia 01-11 (Same as: l 13:46: Lopressor) Kush 00 Push over 2 minutes Acetaminoph No Notes: Max Memoria en 01-11 acetaminop l 13:46: hen 4000 [place] 00 mg/day (4 gm/day). (Same as: Tylenol Extra Strength) Labetalol No Notes: Memori a 01-11 (Same as: l 13:46: Normodyne, Kush 00 Trandate) Push over 2 minutes Give bolus over 2-3 minutes. Ibuprofen No Notes: Memori a 01-11 (Same as: l 13:46: Motrin) Kush 00 "Do Not Crush" Take with food. Hydralazine No Notes: Jah jina 01-11 (Same as: l 13:46: Apresoline [place] 00 ) Push over 5 minutes Calcium No 1,000 mL, Memor ia Chloride 01-11 Rate: 125 l 0.0014 13:46: ml/hr, [place] MEQ/ML / 00 Infuse Potassium over: 8 Chloride hr, Route: 0.004 IV, Dosing MEQ/ML / Weight Sodium 111.409 Chloride kg, Total 0.103 Volume: MEQ/ML / 1,000, Sodium Start Lactate date: 0.028 01/11/17 MEQ/ML 8:46:00 Injectable CDT, Solution Duration: 30 day, Stop date: 02/10/17 8:45:00 CDT Insulin, No Notes: Memoria Aspart, 01-11 Roll in l Human 13:46: palms of [place] 00 hands gently; Do not shake vigorously [...] a 01-11 (Same as: l 13:46: Versed) [place] 00 MEDICATION WASTE Product Size: 2 mg Product [...] 01-11 (Same as: l / 13:46: Duoneb) Ipratropium 00 [place] 0.167 MG/ML Inhalant Solution [DuoNeb] Phenylephri No Notes: Jah jina ne 01-11 Same as: l 13:46: Yassine-Syneph rine Acetazolami No Notes: Jah jina de 01-11 (Same as: l 13:46: Diamox) ANES No Notes: Memoria albuterol 01-11 Same as: l 90 mcg/inh 13:46: Ventolin Her lawson inhalation 00 HFA WASTE: aerosol Aerosol - Return to Pharmacy celecoxib No Notes: Memori a 01-11 NSAID. l 13:46: Please [place] 00 check indication . Not for seizure. (Same As: CeleBREX) Flumazenil No Notes: Memor ia 01-11 (Same as: l 13:46: Romazicon) [place] 00 Ephedrine No Notes: Memori a 01-11 final l 13:46: concentrat [place] 00 ion 5 mg/mL Dexamethaso No Notes: Jah jina ne 01-11 Concentrat l 13:46: ion: [place] 00 4mg/ml Hydromorpho No Notes: Jah jina ne 01-11 Same as l 13:46: Dilaudid [place] 00 Oxycodone No Notes: Memori a 01-11 (Same as: l 13:46: Roxicodone ) Morphine No Notes: Memoria 01-11 (Same l 13:46: as:MORPhin Kush 00 e Sulfate) Metoprolol No Notes: Memor ia 01-11 (Same as: l 13:46: Lopressor) Push over 2 minutes Acetaminoph No Notes: Max Memoria en 01-11 acetaminop l 13:46: hen 4000 [place] 00 mg/day (4 gm/day). (Same as: Tylenol Extra Strength) Labetalol No Notes: Memori a 01-11 (Same as: l 13:46: Normodyne, Kush 00 Trandate) Push over 2 minutes Give bolus over 2-3 minutes. Ibuprofen No Notes: Memori a 01-11 (Same as: l 13:46: Motrin) "Do Not Crush" Take with food. Hydralazine No Notes: Jah jina 01-11 (Same as: l 13:46: Apresoline ) Push over 5 minutes Calcium No 1,000 mL, Memor ia Chloride 01-11 Rate: 125 l 0.0014 13:46: ml/hr, [place] MEQ/ML / 00 Infuse Potassium over: 8 Chloride hr, Route: 0.004 IV, Dosing MEQ/ML / Weight Sodium 111.409 Chloride kg, Total 0.103 Volume: MEQ/ML / 1,000, Sodium Start Lactate date: 0.028 01/11/17 MEQ/ML 8:46:00 Injectable CDT, Solution Duration: 30 day, Stop date: 02/10/17 8:45:00 CDT Insulin, No Notes: Memoria Aspart, 01-11 Roll in l Human 13:46: palms of [place] 00 hands gently; Do not shake vigorously [...] Mem oria 01-11 MEDICATION l 13:46: WASTE Kush 00 Product Size: 0.4 mg Product Wasted: ___ mg Albuterol No Notes: Memori a 0.833 MG/ML 01-11 (Same as: l / 13:46: Duoneb) Ipratropium 00 [place] 0.167 MG/ML Inhalant Solution [DuoNeb] Phenylephri No [...] Memori a 01-11 NSAID. l 13:46: Please Kush 00 check indication . Not for seizure. (Same As: CeleBREX) Flumazenil No Notes: Memor ia 01-11 (Same as: l 13:46: Romazicon) Ephedrine No Notes: Memori a 01-11 final l 13:46: concentrat Kush 00 ion 5 mg/mL Dexamethaso No Notes: Jah jina ne 01-11 Concentrat l 13:46: ion: Kush 00 4mg/ml Hydromorpho No Notes: Jah jina ne 01-11 Same as l 13:46: Dilaudid Kush 00 Oxycodone No Notes: Memori a 01-11 (Same as: l 13:46: Roxicodone [place] 00 ) Morphine No Notes: Memoria 01-11 (Same l 13:46: as:MORPhin [place] 00 e Sulfate) Metoprolol No Notes: Memor ia 01-11 (Same as: l 13:46: Lopressor) Push over 2 minutes Acetaminoph No Notes: Max Memoria en 01-11 acetaminop l 13:46: hen 4000 Kush 00 mg/day (4 gm/day). (Same as: Tylenol Extra Strength) Labetalol No Notes: Memori a 01-11 (Same as: l 13:46: Normodyne, Kush 00 Trandate) Push over 2 minutes Give bolus over 2-3 minutes. Ibuprofen No Notes: Memori a 01-11 (Same as: l 13:46: Motrin) [place] 00 "Do Not Crush" Take with food. Hydralazine No Notes: Jha jina 01-11 (Same as: l 13:46: Apresoline [place] 00 ) Push over 5 minutes Calcium No 1,000 mL, Memor ia Chloride 01-11 Rate: 125 l 0.0014 13:46: ml/hr, [place] MEQ/ML / 00 Infuse Potassium over: 8 Chloride hr, Route: 0.004 IV, Dosing MEQ/ML / Weight Sodium 111.409 Chloride kg, Total 0.103 Volume: MEQ/ML / 1,000, Sodium Start Lactate date: 0.028 01/11/17 MEQ/ML 8:46:00 Injectable CDT, Solution Duration: 30 day, Stop date: 02/10/17 8:45:00 CDT Insulin, No Notes: Memoria Aspart, 01-11 [...] a 01-11 (Same as: l 13:46: Versed) Kush 00 MEDICATION WASTE Product Size: 2 mg Product [...] 01-11 (Same as: l / 13:46: Duoneb) Ipratropium 00 [place] 0.167 MG/ML Inhalant Solution [DuoNeb] Phenylephri No Notes: Jah jina ne 01-11 Same as: l 13:46: Yassine-Syneph rine Acetazolami No Notes: Jah jina de 01-11 (Same as: l 13:46: Diamox) ANES No Notes: Memoria albuterol 01-11 Same as: l 90 mcg/inh 13:46: Ventolin Her lawson inhalation 00 HFA WASTE: aerosol Aerosol - Return to Pharmacy celecoxib No Notes: Memori a 01-11 NSAID. l 13:46: Please [place] 00 check indication . Not for seizure. (Same As: CeleBREX) Flumazenil No Notes: Memor ia 01-11 (Same as: l 13:46: Romazicon) [place] 00 Ephedrine No Notes: Memori a 01-11 final l 13:46: concentrat [place] 00 ion 5 mg/mL Dexamethaso No Notes: Jah jina ne 01-11 Concentrat l 13:46: ion: [place] 00 4mg/ml Hydromorpho No Notes: Jah jina ne 01-11 Same as l 13:46: Dilaudid [place] 00 Oxycodone No Notes: Memori a 01-11 (Same as: l 13:46: Roxicodone ) Morphine No Notes: Memoria 01-11 (Same l 13:46: as:MORPhin [place] 00 e Sulfate) Metoprolol No Notes: Memor ia 01-11 (Same as: l 13:46: Lopressor) Push over 2 minutes Acetaminoph No Notes: Max Memoria en 01-11 acetaminop l 13:46: hen 4000 [place] 00 mg/day (4 gm/day). (Same as: Tylenol Extra Strength) Labetalol No Notes: Memori a 01-11 (Same as: l 13:46: Normodyne, [place] 00 Trandate) Push over 2 minutes Give bolus over 2-3 minutes. Ibuprofen No Notes: Memori a 01-11 (Same as: l 13:46: Motrin) "Do Not Crush" Take with food. Hydralazine No Notes: Jah jina 01-11 (Same as: l 13:46: Apresoline ) Push over 5 minutes Calcium No 1,000 mL, Memor ia Chloride 01-11 Rate: 125 l 0.0014 13:46: ml/hr, Kush MEQ/ML / 00 Infuse Potassium over: 8 Chloride hr, Route: 0.004 IV, Dosing MEQ/ML / Weight Sodium 111.409 Chloride kg, Total 0.103 Volume: MEQ/ML / 1,000, Sodium Start Lactate date: 0.028 08/08/17 MEQ/ML 8:46:00 Injectable CDT, Solution Duration: 30 day, Stop date: 02/10/17 8:45:00 CDT Insulin, No Notes: Memoria Aspart, 01-11 Roll in l Human 13:46: palms of [place] 00 hands gently; Do not shake vigorously . (Same as: NovoLOG) "single patient use only" WASTE: F/P - Black; E - Municipal Trash Bin Stable for 28 days at room temperatur e. Expires in days from ____Date 72 HR No Notes: Memoria Scopolamine 01-11 Change l 0.0139 13:46: patch [place] MG/HR 00 every 72 Transdermal hours Patch [...] Mem oria 01-11 MEDICATION l 13:46: WASTE [place] 00 Product Size: 0.4 mg Product Wasted: ___ mg Albuterol No Notes: Memori a 0.833 MG/ML 01-11 (Same as: l / 13:46: Duoneb) Ipratropium 00 [place] 0.167 MG/ML Inhalant Solution [DuoNeb] Phenylephri No Notes: Jah jina ne 01-11 Same as: l 13:46: Yassine-Syneph Kush 00 rine Acetazolami No Notes: Jah jina de 01-11 (Same as: l 13:46: Diamox) [place] 00 ANES No Notes: Memoria albuterol 01-11 Same as: l 90 mcg/inh 13:46: Ventolin Her lawson inhalation 00 HFA WASTE: aerosol Aerosol - Return to Pharmacy celecoxib No Notes: Memori a 01-11 NSAID. l 13:46: Please [place] 00 check indication . Not for seizure. (Same As: CeleBREX) Flumazenil No Notes: Memor ia 01-11 (Same as: l 13:46: Romazicon) Ephedrine No Notes: Memori a 01-11 final l 13:46: concentrat ion 5 mg/mL Dexamethaso No Notes: Jah jina ne 01-11 Concentrat l 13:46: ion: [place] 00 4mg/ml Hydromorpho No Notes: Jah jina ne 01-11 Same as l 13:46: Dilaudid [place] 00 Oxycodone No Notes: Memori a 01-11 (Same as: l 13:46: Roxicodone ) Morphine No Notes: Memoria 01-11 (Same l 13:46: as:MORPhin [place] 00 e Sulfate) Metoprolol No Notes: Memor ia 01-11 (Same as: l 13:46: Lopressor) Push over 2 minutes Acetaminoph No Notes: Max Memoria en 01-11 acetaminop l 13:46: hen 4000 [place] 00 mg/day (4 gm/day). (Same as: Tylenol Extra Strength) Labetalol No Notes: Memori a 01-11 (Same as: l 13:46: Normodyne, Kush 00 Trandate) Push over 2 minutes Give bolus over 2-3 minutes. Ibuprofen No Notes: Memori a 01-11 (Same as: l 13:46: Motrin) Kush 00 "Do Not Crush" Take with food. Hydralazine No Notes: Jah jina 01-11 (Same as: l 13:46: Apresoline Kush ) Push over 5 minutes Calcium No 1,000 mL, Memor ia Chloride 01-11 Rate: 125 l 0.0014 13:46: ml/hr, [place] MEQ/ML / 00 Infuse Potassium over: 8 Chloride hr, Route: 0.004 IV, Dosing MEQ/ML / Weight Sodium 111.409 Chloride kg, Total 0.103 Volume: MEQ/ML / 1,000, Sodium Start Lactate date: 0.028 01/11/17 MEQ/ML 8:46:00 Injectable CDT, Solution Duration: 30 day, Stop date: 02/10/17 8:45:00 CDT Insulin, No Notes: Memoria Aspart, 01-11 [...] a 01-11 (Same as: l 13:46: Versed) [place] MEDICATION WASTE Product Size: 2 mg Product Wasted: ___ mg Naloxone No Notes: Memoria 01-11 Same as l 13:46: Narcan [place] 00 Meperidine No Notes: Memor ia 808 (Same as: l 13:46: Demerol) "Use Precaution in Elderly, Seizure disorders, and Renal impairment " Promethazin No Notes: Do M emoria e 01-11 not give l 13:46: IV push. Kush 00 (Same as: Phenergan) Ondansetron No Notes: Jah [...] 01-11 (Same as: l / 13:46: Duoneb) Ipratropium 00 [place] 0.167 MG/ML Inhalant Solution [DuoNeb] Phenylephri No Notes: Jah jina ne 01-11 Same as: l 13:46: Yassine-Syneph rine Acetazolami No Notes: Jah jina de 01-11 (Same as: l 13:46: Diamox) ANES No Notes: Memoria albuterol 01-11 Same as: l 90 mcg/inh 13:46: Ventolin Her lawson inhalation 00 HFA WASTE: aerosol Aerosol - Return to Pharmacy celecoxib No Notes: Memori a 01-11 NSAID. l 13:46: Please [place] 00 check indication . Not for seizure. (Same As: CeleBREX) Flumazenil No Notes: Memor ia 01-11 (Same as: l 13:46: Romazicon) [place] 00 Ephedrine No Notes: Memori a 01-11 final l 13:46: concentrat [place] 00 ion 5 mg/mL Dexamethaso No Notes: Jah jina ne 01-11 Concentrat l 13:46: ion: Kush 00 4mg/ml Hydromorpho No Notes: Jah jina ne 01-11 Same as l 13:46: Dilaudid [place] 00 Oxycodone No Notes: Memori a 01-11 (Same as: l 13:46: Roxicodone Kush 00 ) Morphine No Notes: Memoria 01-11 (Same l 13:46: as:MORPhin [place] 00 e Sulfate) Metoprolol No Notes: Memor ia 01-11 (Same as: l 13:46: Lopressor) [place] 00 Push over 2 minutes Acetaminoph No Notes: Max Memoria en 01-11 acetaminop l 13:46: hen 4000 [place] 00 mg/day (4 gm/day). (Same as: Tylenol Extra Strength) Labetalol No Notes: Memori a 01-11 (Same as: l 13:46: Normodyne, [place] 00 Trandate) Push over 2 minutes Give bolus over 2-3 minutes. Ibuprofen No Notes: Memori a 01-11 (Same as: l 13:46: Motrin) [place] 00 "Do Not Crush" Take with food. Hydralazine No Notes: Jah jina 01-11 (Same as: l 13:46: Apresoline [place] 00 ) Push over 5 minutes Calcium No 1,000 mL, Memor ia Chloride 01-11 Rate: 125 l 0.0014 13:46: ml/hr, [place] MEQ/ML / 00 Infuse Potassium over: 8 Chloride hr, Route: 0.004 IV, Dosing MEQ/ML / Weight Sodium 111.409 Chloride kg, Total 0.103 Volume: MEQ/ML / 1,000, Sodium Start Lactate date: 0.028 01/11/17 MEQ/ML 8:46:00 Injectable CDT, Solution Duration: 30 day, Stop date: 02/10/17 8:45:00 CDT Insulin, No Notes: Memoria Aspart, 8- Roll in l Human 13:46: palms of [place] 00 hands gently; Do not shake vigorously . (Same as: NovoLOG) "single patient use only" WASTE: F/P - Black; E - Municipal Trash Bin Stable for 28 days at room temperatur e. Expires in days from ____Date 72 HR No Notes: Memoria Scopolamine 8 Change l 0.0139 13:46: patch [place] MG/HR 00 every 72 Transdermal hours Patch (Same as: Transderm- Scop) Midazolam No Notes: Memori a 01-11 (Same as: l 13:46: Versed) Kush 00 MEDICATION WASTE Product Size: 2 mg Product Wasted: ___ mg Naloxone No Notes: Memoria 01-11 Same as l 13:46: Narcan [place] 00 Meperidine No Notes: Memor ia 01-11 (Same as: l 13:46: Demerol) Kush 00 "Use Precaution in Elderly, Seizure disorders, and Renal impairment " Promethazin No Notes: Do M emoria e 01-11 not give l 13:46: IV push. Kush 00 (Same as: Phenergan) Insulin, No Notes: Memoria Aspart, 8 Roll in l Human 13:46: palms of [place] 00 hands gently; Do not shake vigorously . (Same as: NovoLOG) "single patient use only" WASTE: F/P - Black; E - Municipal Trash Bin Stable for 28 days at room temperatur e. Expires in days from ____Date 72 HR No Notes: Memoria Scopolamine 8- Change l 0.0139 13:46: patch [place] MG/HR 00 every 72 Transdermal hours Patch (Same as: Transderm- Scop) Midazolam No Notes: Memori a 08 (Same as: l 13:46: Versed) [place] 00 MEDICATION WASTE Product Size: 2 mg Product Wasted: ___ mg Naloxone No Notes: Memoria 01-11 Same as l 13:46: Narcan Meperidine No Notes: Memor ia 01-11 (Same as: l 13:46: Demerol) "Use Precaution in Elderly, Seizure disorders, and Renal impairment " Promethazin No Notes: Do M emoria e 01-11 not give l 13:46: IV push. [place] 00 (Same as: Phenergan) Ondansetron No Notes: Jah jina 01-11 (Same as: l 13:46: Zofran) MEDICATION WASTE Product Size: 4 mg Product Wasted: ___ mg Ondansetron No Notes: Jah jina 01-11 (Same [...] Mem oria 01-11 MEDICATION l 13:46: WASTE [place] 00 Product Size: 0.4 mg Product Wasted: ___ mg Albuterol No Notes: Memori a 0.833 MG/ML 01-11 (Same as: l / 13:46: Duoneb) [place] Ipratropium 00 [place] 0.167 MG/ML Inhalant Solution [DuoNeb] Phenylephri No Notes: Jah jina ne 01-11 Same as: l 13:46: Yassine-Syneph rine Acetazolami No Notes: Jah jina de 01-11 (Same as: l 13:46: Diamox) [place] 00 ANES No Notes: Memoria albuterol 01-11 Same as: l 90 mcg/inh 13:46: Ventolin Her lawson inhalation 00 HFA WASTE: aerosol Aerosol - Return to Pharmacy celecoxib No Notes: Memori a 01-11 NSAID. l 13:46: Please [place] 00 check indication . Not for seizure. (Same As: CeleBREX) Diphenhydra No Notes: Jah jina mine 01-11 (Same as: l 13:46: Benadryl) Flumazenil No Notes: Memor ia 01-11 (Same as: l 13:46: Romazicon) Ephedrine No Notes: Memori a 01-11 final l 13:46: concentrat [place] 00 ion 5 mg/mL Dexamethaso No Notes: Jah jina ne 01-11 Concentrat l 13:46: ion: [place] 00 4mg/ml Hydromorpho No Notes: Jah jina ne 01-11 Same as l 13:46: Dilaudid [place] 00 Oxycodone No Notes: Memori a 01-11 (Same as: l 13:46: Roxicodone [place] 00 ) Morphine No Notes: Memoria 01-11 (Same l 13:46: as:MORPhin [place] 00 e Sulfate) Metoprolol No Notes: Memor ia 01-11 (Same as: l 13:46: Lopressor) Push over 2 minutes Acetaminoph No Notes: Max Memoria en 01-11 acetaminop l 13:46: hen 4000 [place] 00 mg/day (4 gm/day). (Same as: Tylenol Extra Strength) Labetalol No Notes: Memori a 01-11 (Same as: l 13:46: Normodyne, [place] 00 Trandate) Push over 2 minutes Give bolus over 2-3 minutes. Ibuprofen No Notes: Memori a 01-11 (Same as: l 13:46: Motrin) "Do Not Crush" Take with food. Albuterol No Notes: SEE Me moria 0.83 MG/ML 01-11 RT l Inhalant 13:46: DOCUMENTAT Her lawson Solution 00 ION (Same as: Proventil) Hydralazine No Notes: Jah jina 01-11 (Same as: l 13:46: Apresoline ) Push over 5 minutes Calcium No 1,000 mL, Memor ia Chloride 01-11 Rate: 125 l 0.0014 13:46: ml/hr, Kush MEQ/ML / 00 Infuse Potassium over: 8 Chloride hr, Route: 0.004 IV, Dosing MEQ/ML / Weight Sodium 111.409 Chloride kg, Total 0.103 Volume: MEQ/ML / 1,000, Sodium Start Lactate date: 0.028 01/11/17 MEQ/ML 8:46:00 Injectable CDT, Solution Duration: 30 day, Stop date: 02/10/17 8:45:00 CDT Glycopyrrol No Notes: Jah jina ate 01-11 (Same as: l 13:46: Robinul) Atropine No Notes: Mem oria 01-11 MEDICATION l 13:46: WASTE Product Size: 0.4 mg Product Wasted: ___ mg Albuterol No Notes: Memori a 0.833 MG/ML 01-11 (Same as: l / 13:46: Duoneb) Ipratropium 00 [place] 0.167 MG/ML Inhalant Solution [DuoNeb] Phenylephri No Notes: Jah jina ne 01-11 Same as: l 13:46: Yassine-Syneph rine Acetazolami No Notes: Jah jina de 01-11 (Same as: l 13:46: Diamox) ANES No Notes: Memoria albuterol 01-11 Same as: l 90 mcg/inh 13:46: Ventolin Her lawson inhalation 00 HFA WASTE: aerosol Aerosol - Return to Pharmacy celecoxib No Notes: Memori a 01-11 NSAID. l 13:46: Please [place] 00 check indication . Not for seizure. (Same As: CeleBREX) Flumazenil No Notes: Memor ia 01-11 (Same as: l 13:46: Romazicon) Kush 00 Ephedrine No Notes: Memori a 01-11 final l 13:46: concentrat [place] 00 ion 5 mg/mL Dexamethaso No Notes: Jah jina ne 01-11 Concentrat l 13:46: ion: [place] 00 4mg/ml Hydromorpho No Notes: Jah jina ne 01-11 Same as l 13:46: Dilaudid Insulin, No Notes: Memoria Aspart, 01-11 Roll in l Human 13:46: palms of hands gently; Do not shake vigorously . (Same as: NovoLOG) "single patient use only" WASTE: F/P - Black; E - Municipal Trash Bin Stable for 28 days at room temperatur e. Expires in days from ____Date 72 HR No Notes: Memoria Scopolamine 01-11 Change l 0.0139 13:46: patch [place] MG/HR 00 every 72 Transdermal hours Patch [...] 01-11 not give l 13:46: IV push. [place] 00 (Same as: Phenergan) Ondansetron No Notes: Jah jina 01-11 (Same as: l 13:46: Zofran) MEDICATION WASTE Product Size: 4 mg Product Wasted: ___ mg Diphenhydra No Notes: Jah jina mine 01-11 (Same as: l 13:46: Benadryl) Albuterol No Notes: SEE Me moria 0.83 MG/ML 01-11 RT l Inhalant 13:46: DOCUMENTAT Her lawson Solution 00 ION (Same as: Proventil) Oxycodone No Notes: Memori a 01-11 (Same as: l 13:46: Roxicodone ) Glycopyrrol No Notes: Jah jina ate 01-11 (Same as: l 13:46: Robinul) [place] 00 Atropine No Notes: Mem oria 01-11 MEDICATION l 13:46: WASTE [place] 00 Product Size: 0.4 mg Product Wasted: ___ mg Albuterol No Notes: Memori a 0.833 MG/ML 01-11 (Same as: l / 13:46: Duoneb) Ipratropium 00 [place] 0.167 MG/ML Inhalant Solution [DuoNeb] Phenylephri No Notes: Jah jina ne 01-11 Same as: l 13:46: Yassine-Syneph rine Acetazolami No Notes: Jah jina de 01-11 (Same as: l 13:46: Diamox) [place] 00 ANES No Notes: Memoria albuterol 01-11 Same as: l 90 mcg/inh 13:46: Ventolin Her lawson inhalation 00 HFA WASTE: aerosol Aerosol - Return to Pharmacy celecoxib No Notes: Memori a 01-11 NSAID. l 13:46: Please [place] 00 check indication . Not for seizure. (Same As: CeleBREX) Flumazenil No Notes: Memor ia 01-11 (Same as: l 13:46: Romazicon) [place] 00 Ephedrine No Notes: Memori a 01-11 final l 13:46: concentrat [place] 00 ion 5 mg/mL Dexamethaso No Notes: Jah jina ne 01-11 Concentrat l 13:46: ion: [place] 00 4mg/ml Morphine No Notes: Memoria 01-11 (Same l 13:46: as:MORPhin [place] 00 e Sulfate) Hydromorpho No Notes: Jah jina ne 01-11 Same as l 13:46: Dilaudid Oxycodone No Notes: Memori a 8-08 (Same as: l 13:46: Roxicodone [place] 00 ) Morphine No Notes: Memoria 8-08 (Same l 13:46: as:MORPhin [place] 00 e Sulfate) Metoprolol No Notes: Memor ia 8-08 (Same as: l 13:46: Lopressor) Kush 00 Push over 2 minutes Acetaminoph No Notes: Max Memoria en 8-08 acetaminop l 13:46: hen 4000 [place] 00 mg/day (4 gm/day). (Same as: Tylenol Extra Strength) Labetalol No Notes: Memori a 8-08 (Same as: l 13:46: Normodyne, [place] 00 Trandate) Push over 2 minutes Give bolus over 2-3 minutes. Ibuprofen No Notes: Memori a 08 (Same as: l 13:46: Motrin) [place] 00 "Do Not Crush" Take with food. Hydralazine No Notes: Jah jina 08 (Same as: l 13:46: Apresoline [place] 00 ) Push over 5 minutes Calcium No 1,000 mL, Memor ia Chloride 01-11 Rate: 125 l 0.0014 13:46: ml/hr, [place] MEQ/ML / 00 Infuse Potassium over: 8 Chloride hr, Route: 0.004 IV, Dosing MEQ/ML / Weight Sodium 111.409 Chloride kg, Total 0.103 Volume: MEQ/ML / 1,000, Sodium Start Lactate date: 0.028 01/11/17 MEQ/ML 8:46:00 Injectable CDT, Solution Duration: 30 day, Stop date: 02/10/17 8:45:00 CDT Metoprolol No Notes: Memor ia 8-08 (Same as: l 13:46: Lopressor) Kush 00 Push over 2 minutes Acetaminoph No Notes: Max Memoria en 8-08 acetaminop l 13:46: hen 4000 [place] 00 mg/day (4 gm/day). (Same as: Tylenol Extra Strength) Labetalol No Notes: Memori a 8-08 (Same as: l 13:46: Normodyne, [place] 00 Trandate) Push over 2 minutes Give bolus over 2-3 minutes. Ibuprofen No Notes: Memori a 01-11 (Same as: l 13:46: Motrin) "Do Not Crush" Take with food. Hydralazine No Notes: Jah jina 01-11 (Same as: l 13:46: Apresoline ) Push over 5 minutes Calcium No 1,000 mL, Memor ia Chloride 01-11 Rate: 125 l 0.0014 13:46: ml/hr, Kush MEQ/ML / 00 Infuse Potassium over: 8 Chloride hr, Route: 0.004 IV, Dosing MEQ/ML / Weight Sodium 111.409 Chloride kg, Total 0.103 Volume: MEQ/ML / 1,000, Sodium Start Lactate date: 0.028 01/11/17 MEQ/ML 8:46:00 Injectable CDT, Solution Duration: 30 day, Stop date: 02/10/17 8:45:00 CDT Insulin, No Notes: Memoria Aspart, 01-11 Roll in l Human 13:46: palms of hands gently; Do not shake [...] Memoria 01-11 Same as l 13:46: Narcan [place] 00 Meperidine No Notes: Memor ia 01-11 (Same as: l 13:46: Demerol) "Use Precaution in Elderly, Seizure disorders, and Renal impairment " Promethazin No Notes: Do M emoria e 01-11 not give l 13:46: IV push. Kush 00 (Same as: Phenergan) Ondansetron No Notes: Jah [...] 01-11 (Same as: l / 13:46: Duoneb) Ipratropium 00 [place] 0.167 MG/ML Inhalant Solution [DuoNeb] Phenylephri No Notes: Jah jina ne 01-11 Same as: l 13:46: Yassine-Syneph rine Acetazolami No Notes: Jah jina de 01-11 (Same as: l 13:46: Diamox) ANES No Notes: Memoria albuterol 01-11 Same as: l 90 mcg/inh 13:46: Ventolin Her lawson inhalation 00 HFA WASTE: aerosol Aerosol - Return to Pharmacy celecoxib No Notes: Memori a 01-11 NSAID. l 13:46: Please [place] 00 check indication . Not for seizure. (Same As: CeleBREX) Flumazenil No Notes: Memor ia 01-11 (Same as: l 13:46: Romazicon) Ephedrine No Notes: Memori a 01-11 final l 13:46: concentrat ion 5 mg/mL Dexamethaso No Notes: Jah jina ne 01-11 Concentrat l 13:46: ion: [place] 00 4mg/ml Hydromorpho No Notes: Jah jina ne 01-11 Same as l 13:46: Dilaudid Oxycodone No Notes: Memori a 01-11 (Same as: l 13:46: Roxicodone ) Morphine No Notes: Memoria 01-11 (Same l 13:46: as:MORPhin Kush 00 e Sulfate) Metoprolol No Notes: Memor ia 01-11 (Same as: l 13:46: Lopressor) Push over 2 minutes Acetaminoph No Notes: Max Memoria en 01-11 acetaminop l 13:46: hen 4000 mg/day (4 gm/day). (Same as: Tylenol Extra Strength) Labetalol No Notes: Memori a 01-11 (Same as: l 13:46: Normodyne, Trandate) Push over 2 minutes Give bolus over 2-3 minutes. Ibuprofen No Notes: Memori a 01-11 (Same as: l 13:46: Motrin) "Do Not Crush" Take with food. Hydralazine No Notes: Jah jina 01-11 (Same as: l 13:46: Apresoline ) Push over 5 minutes Calcium No 1,000 mL, Memor ia Chloride 01-11 Rate: 125 l 0.0014 13:46: ml/hr, [place] MEQ/ML / 00 Infuse Potassium over: 8 Chloride hr, Route: 0.004 IV, Dosing MEQ/ML / Weight Sodium 111.409 Chloride kg, Total 0.103 Volume: MEQ/ML / 1,000, Sodium Start Lactate date: 0.028 01/11/17 MEQ/ML 8:46:00 Injectable CDT, Solution Duration: 30 day, Stop date: 02/10/17 8:45:00 CDT Insulin, No Notes: Memoria Aspart, 01-11 Roll in l Human 13:46: palms of hands gently; Do not shake vigorously . (Same as: NovoLOG) "single patient use only" WASTE: F/P - Black; E - Municipal Trash Bin Stable for 28 days at room temperatur e. Expires in days from ____Date 72 HR No Notes: Memoria Scopolamine 01-11 Change l 0.0139 13:46: patch [place] MG/HR 00 every 72 Transdermal hours Patch (Same as: Transderm- Scop) Midazolam No Notes: Memori a 01-11 (Same as: l 13:46: Versed) [place] 00 MEDICATION WASTE Product Size: 2 mg Product Wasted: ___ mg Naloxone No Notes: Memoria 01-11 Same as l 13:46: Narcan [place] 00 Meperidine No Notes: Memor ia 01-11 (Same as: l 13:46: Demerol) "Use Precaution in Elderly, Seizure disorders, and Renal impairment " Promethazin No Notes: Do M emoria e 01-11 not give l 13:46: IV push. Kush 00 (Same as: Phenergan) Ondansetron No Notes: Jah [...] Mem oria 01-11 MEDICATION l 13:46: WASTE [place] 00 Product Size: 0.4 mg Product Wasted: ___ mg Albuterol No Notes: Memori a 0.833 MG/ML 01-11 (Same as: l / 13:46: Duoneb) [place] Ipratropium 00 [place] 0.167 MG/ML Inhalant Solution [DuoNeb] Phenylephri No Notes: Jah jina ne 01-11 Same as: l 13:46: Yassine-Syneph [place] 00 rine Acetazolami No Notes: Jah jina de 01-11 (Same as: l 13:46: Diamox) Kush ANES No Notes: Memoria albuterol 01-11 Same as: l 90 mcg/inh 13:46: Ventolin Her lawson inhalation 00 HFA WASTE: aerosol Aerosol - Return to Pharmacy celecoxib No Notes: Memori a 01-11 NSAID. l 13:46: Please [place] check indication . Not for seizure. (Same As: CeleBREX) Flumazenil No Notes: Memor ia 01-11 (Same as: l 13:46: Romazicon) [place] 00 Ephedrine No Notes: Memori a 01-11 final l 13:46: concentrat [place] 00 ion 5 mg/mL Dexamethaso No Notes: Jah jina ne 01-11 Concentrat l 13:46: ion: [place] 00 4mg/ml Hydromorpho No Notes: Jah jina ne 01-11 Same as l 13:46: Dilaudid [place] 00 Oxycodone No Notes: Memori a 01-11 (Same as: l 13:46: Roxicodone [place] 00 ) Morphine No Notes: Memoria 01-11 (Same l 13:46: as:MORPhin [place] 00 e Sulfate) Metoprolol No Notes: Memor ia 01-11 (Same as: l 13:46: Lopressor) Kush 00 Push over 2 minutes Acetaminoph No Notes: Max Memoria en 01-11 acetaminop l 13:46: hen 4000 [place] 00 mg/day (4 gm/day). (Same as: Tylenol Extra Strength) Labetalol No Notes: Memori a 01-11 (Same as: l 13:46: Normodyne, [place] 00 Trandate) Push over 2 minutes Give bolus over 2-3 minutes. Ibuprofen No Notes: Memori a 8-08 (Same as: l 13:46: Motrin) "Do Not Crush" Take with food. Hydralazine No Notes: Jah jina 01-11 (Same as: l 13:46: Apresoline Kush 00 ) Push over 5 minutes Calcium No 1,000 mL, Memor ia Chloride 01-11 Rate: 125 l 0.0014 13:46: ml/hr, Kush MEQ/ML / 00 Infuse Potassium over: 8 Chloride hr, Route: 0.004 IV, Dosing MEQ/ML / Weight Sodium 111.409 Chloride kg, Total 0.103 Volume: MEQ/ML / 1,000, Sodium Start Lactate date: 0.028 01/11/17 MEQ/ML 8:46:00 Injectable CDT, Solution Duration: 30 day, Stop date: 02/10/17 8:45:00 CDT Insulin, No Notes: Memoria Aspart, 01-11 Roll in l Human 13:46: palms of hands gently; Do not shake vigorously . (Same as: NovoLOG) "single patient use only" WASTE: F/P - Black; E - Municipal Trash Bin Stable for 28 days at room temperatur e. Expires in days from ____Date 72 HR No Notes: Memoria Scopolamine 01-11 Change l 0.0139 13:46: patch [place] MG/HR 00 every 72 Transdermal hours Patch [...] jina 01-11 (Same as: l 13:46: Zofran) [place] 00 MEDICATION WASTE Product Size: 4 mg Product Wasted: ___ mg Diphenhydra No Notes: Jah jina mine 01-11 (Same as: l 13:46: Benadryl) [place] 00 Albuterol No Notes: SEE Me moria 0.83 MG/ML 01-11 RT l Inhalant 13:46: DOCUMENTAT Her lawson Solution 00 ION (Same as: Proventil) Glycopyrrol No Notes: Jah jina ate 01-11 (Same as: l 13:46: Robinul) Atropine No Notes: Mem oria 01-11 MEDICATION l 13:46: WASTE Kush 00 Product Size: 0.4 mg Product Wasted: ___ mg Albuterol No Notes: Memori a 0.833 MG/ML 01-11 (Same as: l / 13:46: Duoneb) Ipratropium 00 [place] 0.167 MG/ML Inhalant Solution [DuoNeb] Phenylephri No Notes: Jah jina ne 01-11 Same as: l 13:46: Yassine-Syneph [place] 00 rine Acetazolami No Notes: Jah jina de 01-11 (Same as: l 13:46: Diamox) Kush 00 ANES No Notes: Memoria albuterol 01-11 Same as: l 90 mcg/inh 13:46: Ventolin Her lawson inhalation 00 HFA WASTE: aerosol Aerosol - Return to Pharmacy celecoxib No Notes: Memori a 01-11 NSAID. l 13:46: Please [place] 00 check indication . Not for seizure. (Same As: CeleBREX) Flumazenil No Notes: Memor ia 01-11 (Same as: l 13:46: Romazicon) Ephedrine No Notes: Memori a 01-11 final l 13:46: concentrat ion 5 mg/mL Dexamethaso No Notes: Jah jina ne 01-11 Concentrat l 13:46: ion: Kush 00 4mg/ml Hydromorpho No Notes: Jah jina ne 01-11 Same as l 13:46: Dilaudid Oxycodone No Notes: Memori a 01-11 (Same as: l 13:46: Roxicodone ) Morphine No Notes: Memoria 01-11 (Same l 13:46: as:MORPhin e Sulfate) Metoprolol No Notes: Memor ia 01-11 (Same as: l 13:46: Lopressor) Push over 2 minutes Acetaminoph No Notes: Max Memoria en 01-11 acetaminop l 13:46: hen 4000 Kush 00 mg/day (4 gm/day). (Same as: Tylenol Extra Strength) Labetalol No Notes: Memori a 01-11 (Same as: l 13:46: Normodyne, Trandate) Push over 2 minutes Give bolus over 2-3 minutes. Ibuprofen No Notes: Memori a 01-11 (Same as: l 13:46: Motrin) "Do Not Crush" Take with food. Hydralazine No Notes: Jah jina 01-11 (Same as: l 13:46: Apresoline ) Push over 5 minutes Calcium No 1,000 mL, Memor ia Chloride 01-11 Rate: 125 l 0.0014 13:46: ml/hr, Kush MEQ/ML / 00 Infuse Potassium over: 8 Chloride hr, Route: 0.004 IV, Dosing MEQ/ML / Weight Sodium 111.409 Chloride kg, Total 0.103 Volume: MEQ/ML / 1,000, Sodium Start Lactate date: 0.028 01/11/17 MEQ/ML 8:46:00 Injectable CDT, Solution Duration: 30 day, Stop date: 02/10/17 8:45:00 CDT Insulin, No Notes: Memoria Aspart, 01-11 Roll in l Human 13:46: palms of hands gently; Do not shake [...] a 01-11 (Same as: l 13:46: Versed) Kush 00 MEDICATION WASTE Product Size: 2 mg Product Wasted: ___ mg Naloxone No Notes: Memoria 01-11 Same as l 13:46: Narcan Meperidine No Notes: Memor ia 01-11 (Same as: l 13:46: Demerol) "Use Precaution in Elderly, Seizure disorders, and Renal impairment " Promethazin No Notes: Do M emoria e 01-11 not give l 13:46: IV push. [place] 00 (Same as: Phenergan) Ondansetron No Notes: Jah jina 01-11 (Same as: l 13:46: Zofran) [place] 00 MEDICATION WASTE Product Size: 4 mg Product [...] 01-11 (Same as: l / 13:46: Duoneb) [place] Ipratropium 00 [place] 0.167 MG/ML Inhalant Solution [DuoNeb] Phenylephri No Notes: Jah jina ne 01-11 Same as: l 13:46: Yassine-Syneph [place] 00 rine Acetazolami No Notes: Jah jina de 01-11 (Same as: l 13:46: Diamox) Kush ANES No Notes: Memoria albuterol 01-11 Same as: l 90 mcg/inh 13:46: Ventolin Her lawson inhalation 00 HFA WASTE: aerosol Aerosol - Return to Pharmacy celecoxib No Notes: Memori a 01-11 NSAID. l 13:46: Please [place] 00 check indication . Not for seizure. (Same As: CeleBREX) Flumazenil No Notes: Memor ia 01-11 (Same as: l 13:46: Romazicon) Kush 00 Ephedrine No Notes: Memori a 01-11 final l 13:46: concentrat [place] 00 ion 5 mg/mL Dexamethaso No Notes: Jah jina ne 01-11 Concentrat l 13:46: ion: Kush 00 4mg/ml Hydromorpho No Notes: Jah jina ne 01-11 Same as l 13:46: Dilaudid [place] 00 Oxycodone No Notes: Memori a 01-11 (Same as: l 13:46: Roxicodone [place] 00 ) Morphine No Notes: Memoria 01-11 (Same l 13:46: as:MORPhin [place] 00 e Sulfate) Metoprolol No Notes: Memor ia 01-11 (Same as: l 13:46: Lopressor) Push over 2 minutes Acetaminoph No Notes: Max Memoria en 01-11 acetaminop l 13:46: hen 4000 [place] 00 mg/day (4 gm/day). (Same as: Tylenol Extra Strength) Labetalol No Notes: Memori a 01-11 (Same as: l 13:46: Normodyne, [place] 00 Trandate) Push over 2 minutes Give bolus over 2-3 minutes. Ibuprofen No Notes: Memori a 01-11 (Same as: l 13:46: Motrin) "Do Not Crush" Take with food. Hydralazine No Notes: Jah jina 01-11 (Same as: l 13:46: Apresoline [place] 00 ) Push over 5 minutes Calcium No 1,000 mL, Memor ia Chloride 01-11 Rate: 125 l 0.0014 13:46: ml/hr, Kush MEQ/ML / 00 Infuse Potassium over: 8 Chloride hr, Route: 0.004 IV, Dosing MEQ/ML / Weight Sodium 111.409 Chloride kg, Total 0.103 Volume: MEQ/ML / 1,000, Sodium Start Lactate date: 0.028 01/11/17 MEQ/ML 8:46:00 Injectable CDT, Solution Duration: 30 day, Stop date: 02/10/17 8:45:00 CDT Insulin, No Notes: Memoria Aspart, 01-11 Roll in l Human 13:46: palms of hands gently; Do not shake vigorously . (Same as: NovoLOG) "single patient use only" WASTE: F/P - Black; E - [employer] Trash Bin Stable for 28 days at room temperatur e. Expires in days from ____Date 72 HR No Notes: Memoria Scopolamine 01-11 Change l 0.0139 13:46: patch [place] MG/HR 00 every 72 Transdermal hours Patch (Same as: Transderm- Scop) Midazolam No Notes: Memori a 01-11 (Same as: l 13:46: Versed) MEDICATION WASTE Product Size: 2 mg Product Wasted: ___ mg Naloxone No Notes: Memoria 01-11 Same as l 13:46: Narcan Kush 00 Meperidine No Notes: Memor ia 01-11 (Same [...] 01-11 (Same as: l / 13:46: Duoneb) Ipratropium 00 [place] 0.167 MG/ML Inhalant Solution [DuoNeb] Phenylephri No Notes: Jah jina ne 01-11 Same as: l 13:46: Yassine-Syneph rine Acetazolami No Notes: Jah jina de 01-11 (Same as: l 13:46: Diamox) ANES No Notes: Memoria albuterol 01-11 Same as: l 90 mcg/inh 13:46: Ventolin Her lawson inhalation HFA WASTE: aerosol Aerosol - Return to Pharmacy celecoxib No Notes: Memori a 01-11 NSAID. l 13:46: Please [place] 00 check indication . Not for seizure. (Same As: CeleBREX) Flumazenil No Notes: Memor ia 01-11 (Same as: l 13:46: Romazicon) Ephedrine No Notes: Memori a 01-11 final l 13:46: concentrat ion 5 mg/mL Dexamethaso No Notes: Jah jina ne 01-11 Concentrat l 13:46: ion: Kush 00 4mg/ml Hydromorpho No Notes: Jah jina ne 01-11 Same as l 13:46: Dilaudid Oxycodone No Notes: Memori a 01-11 (Same as: l 13:46: Roxicodone ) Morphine No Notes: Memoria 01-11 (Same l 13:46: as:MORPhin e Sulfate) Metoprolol No Notes: Memor ia 01-11 (Same as: l 13:46: Lopressor) Push over 2 minutes Acetaminoph No Notes: Max Memoria en 01-11 acetaminop l 13:46: hen 4000 [place] 00 mg/day (4 gm/day). (Same as: Tylenol Extra Strength) Labetalol No Notes: Memori a 01-11 (Same as: l 13:46: Normodyne, Trandate) Push over 2 minutes Give bolus over 2-3 minutes. Ibuprofen No Notes: Memori a 01-11 (Same as: l 13:46: Motrin) "Do Not Crush" Take with food. Hydralazine No Notes: Jah jina 01-11 (Same as: l 13:46: Apresoline ) Push over 5 minutes Calcium No 1,000 mL, Memor ia Chloride 01-11 Rate: 125 l 0.0014 13:46: ml/hr, [place] MEQ/ML / 00 Infuse Potassium over: 8 Chloride hr, Route: 0.004 IV, Dosing MEQ/ML / Weight Sodium 111.409 Chloride kg, Total 0.103 Volume: MEQ/ML / 1,000, Sodium Start Lactate date: 0.028 01/11/17 MEQ/ML 8:46:00 Injectable CDT, Solution Duration: 30 day, Stop date: 02/10/17 8:45:00 CDT Insulin, No Notes: Memoria Aspart, 01-11 Roll in l Human 13:46: palms of hands gently; Do not shake vigorously . (Same as: NovoLOG) "single patient use only" WASTE: F/P - Black; E - [employer] Trash Bin Stable for 28 days at room temperatur e. Expires in days from ____Date 72 HR No Notes: Memoria Scopolamine 01-11 Change l 0.0139 13:46: patch [place] MG/HR 00 every 72 Transdermal hours Patch (Same as: Transderm- Scop) Midazolam No Notes: Memori a 01-11 (Same as: l 13:46: Versed) Kush 00 MEDICATION WASTE Product Size: 2 mg Product [...] 01-11 (Same as: l / 13:46: Duoneb) [place] Ipratropium 00 [place] 0.167 MG/ML Inhalant Solution [DuoNeb] Phenylephri No Notes: Jah jina ne 01-11 Same as: l 13:46: Yassine-Syneph [place] 00 rine Acetazolami No Notes: Jah jina de 01-11 (Same as: l 13:46: Diamox) Kush 00 ANES No Notes: Memoria albuterol 01-11 Same as: l 90 mcg/inh 13:46: Ventolin Her lawson inhalation 00 HFA WASTE: aerosol Aerosol - Return to Pharmacy celecoxib No Notes: Memori a 01-11 NSAID. l 13:46: Please [place] 00 check indication . Not for seizure. (Same As: CeleBREX) Flumazenil No Notes: Memor ia 01-11 (Same as: l 13:46: Romazicon) [place] 00 Ephedrine No Notes: Memori a 01-11 final l 13:46: concentrat [place] 00 ion 5 mg/mL Dexamethaso No Notes: Jah jina ne 01-11 Concentrat l 13:46: ion: [place] 00 4mg/ml Hydromorpho No Notes: Jah jina ne 01-11 Same as l 13:46: Dilaudid [place] 00 Oxycodone No Notes: Memori a 01-11 (Same as: l 13:46: Roxicodone Kush 00 ) Morphine No Notes: Memoria 01-11 (Same l 13:46: as:MORPhin [place] 00 e Sulfate) Metoprolol No Notes: Memor ia 01-11 (Same as: l 13:46: Lopressor) [place] 00 Push over 2 minutes Acetaminoph No Notes: Max Memoria en 01-11 acetaminop l 13:46: hen 4000 [place] 00 mg/day (4 gm/day). (Same as: Tylenol Extra Strength) Labetalol No Notes: Memori a 01-11 (Same as: l 13:46: Normodyne, [place] Trandate) Push over 2 minutes Give bolus over 2-3 minutes. Ibuprofen No Notes: Memori a 01-11 (Same as: l 13:46: Motrin) Kush 00 "Do Not Crush" Take with food. Hydralazine No Notes: Jah jina 01-11 (Same as: l 13:46: Apresoline Kush 00 ) Push over 5 minutes Calcium No 1,000 mL, Memor ia Chloride 01-11 Rate: 125 l 0.0014 13:46: ml/hr, [place] MEQ/ML / 00 Infuse Potassium over: 8 Chloride hr, Route: 0.004 IV, Dosing MEQ/ML / Weight Sodium 111.409 Chloride kg, Total 0.103 Volume: MEQ/ML / 1,000, Sodium Start Lactate date: 0.028 01/11/17 MEQ/ML 8:46:00 Injectable CDT, Solution Duration: 30 day, Stop date: 02/10/17 8:45:00 CDT Insulin, No Notes: Memoria Aspart, 01-11 [...] Scopolamine 01-11 Change l 0.0139 13:46: patch [place] MG/HR 00 every 72 Transdermal hours Patch (Same as: Transderm- Scop) Midazolam No Notes: Memori a 01-11 (Same as: l 13:46: Versed) MEDICATION WASTE Product Size: 2 mg Product Wasted: ___ mg Naloxone No Notes: Memoria 01-11 Same as l 13:46: Narcan Kush 00 Meperidine No Notes: Memor ia 01-11 (Same as: l 13:46: Demerol) "Use Precaution in Elderly, Seizure disorders, and Renal impairment " Promethazin No Notes: Do M emoria e 01-11 not give l 13:46: IV push. Kush 00 (Same as: Phenergan) Ondansetron No Notes: Jah [...] ate 01-11 (Same as: l 13:46: Robinul) [place] 00 Atropine No Notes: Mem oria 01-11 MEDICATION l 13:46: WASTE [place] 00 Product Size: 0.4 mg Product Wasted: ___ mg Albuterol No Notes: Memori a 0.833 MG/ML 01-11 (Same as: l / 13:46: Duoneb) Ipratropium 00 [place] 0.167 MG/ML Inhalant Solution [DuoNeb] Phenylephri No Notes: Jah jina ne 01-11 Same as: l 13:46: Yassine-Syneph [place] 00 rine Acetazolami No Notes: Jah jina de 01-11 (Same as: l 13:46: Diamox) Kush 00 ANES No Notes: Memoria albuterol 01-11 Same as: l 90 mcg/inh 13:46: Ventolin Her lawson inhalation 00 HFA WASTE: aerosol Aerosol - Return to Pharmacy celecoxib No Notes: Memori a 01-11 NSAID. l 13:46: Please [place] 00 check indication . Not for seizure. (Same As: CeleBREX) Flumazenil No Notes: Memor ia 01-11 (Same as: l 13:46: Romazicon) Ephedrine No Notes: Memori a 01-11 final l 13:46: concentrat ion 5 mg/mL Dexamethaso No Notes: Jah jina ne 01-11 Concentrat l 13:46: ion: Kush 00 4mg/ml Hydromorpho No Notes: Jah jina ne 01-11 Same as l 13:46: Dilaudid Oxycodone No Notes: Memori a 01-11 (Same as: l 13:46: Roxicodone ) Morphine No Notes: Memoria 01-11 (Same l 13:46: as:MORPhin e Sulfate) Metoprolol No Notes: Memor ia 01-11 (Same as: l 13:46: Lopressor) Push over 2 minutes Acetaminoph No Notes: Max Memoria en 01-11 acetaminop l 13:46: hen 4000 [place] 00 mg/day (4 gm/day). (Same as: Tylenol Extra Strength) Labetalol No Notes: Memori a 01-11 (Same as: l 13:46: Normodyne, Trandate) Push over 2 minutes Give bolus over 2-3 minutes. Ibuprofen No Notes: Memori a 01-11 (Same as: l 13:46: Motrin) "Do Not Crush" Take with food. Hydralazine No Notes: Jah jina 01-11 (Same as: l 13:46: Apresoline ) Push over 5 minutes Calcium No 1,000 mL, Memor ia Chloride 01-11 Rate: 125 l 0.0014 13:46: ml/hr, [place] MEQ/ML / 00 Infuse Potassium over: 8 Chloride hr, Route: 0.004 IV, Dosing MEQ/ML / Weight Sodium 111.409 Chloride kg, Total 0.103 Volume: MEQ/ML / 1,000, Sodium Start Lactate date: 0.028 01/11/17 MEQ/ML 8:46:00 Injectable CDT, Solution Duration: 30 day, Stop date: 02/10/17 8:45:00 CDT Insulin, No Notes: Memoria Aspart, 01-11 Roll in l Human 13:46: palms of hands gently; Do not shake vigorously . (Same as: NovoLOG) "single patient use only" WASTE: F/P - Black; E - Municipal Trash Bin Stable for 28 days at room temperatur e. Expires in days from ____Date 72 HR No Notes: Memoria Scopolamine 01-11 Change l 0.0139 13:46: patch [place] MG/HR 00 every 72 Transdermal hours Patch (Same as: Transderm- Scop) Midazolam No Notes: Memori a 01-11 (Same as: l 13:46: Versed) [place] 00 MEDICATION WASTE Product Size: 2 mg Product Wasted: ___ mg Naloxone No Notes: Memoria 01-11 Same as l 13:46: Narcan Kush 00 Meperidine No Notes: Memor ia 01-11 (Same as: l 13:46: Demerol) [place] 00 "Use Precaution in Elderly, Seizure disorders, and Renal impairment " Promethazin No Notes: Do M emoria e 01-11 not give l 13:46: IV push. [place] 00 (Same as: Phenergan) Ondansetron No Notes: Jah jina 01-11 (Same as: l 13:46: Zofran) [place] 00 MEDICATION WASTE Product Size: 4 mg Product Wasted: ___ mg Diphenhydra No Notes: Jah jina mine 01-11 (Same as: l 13:46: Benadryl) Kush 00 Albuterol No Notes: SEE Me moria 0.83 MG/ML 01-11 RT l Inhalant 13:46: DOCUMENTAT Her lawson Solution 00 ION (Same as: Proventil) Glycopyrrol No Notes: Jah jina ate 01-11 (Same as: l 13:46: Robinul) Kush 00 Atropine No Notes: Mem oria 01-11 MEDICATION l 13:46: WASTE Kush 00 Product Size: 0.4 mg Product Wasted: ___ mg Albuterol No Notes: Memori a 0.833 MG/ML 01-11 (Same as: l / 13:46: Duoneb) [place] Ipratropium 00 [place] 0.167 MG/ML Inhalant Solution [DuoNeb] Phenylephri No Notes: Jah jina ne 01-11 Same as: l 13:46: Yassine-Syneph [place] 00 rine Acetazolami No Notes: Jah jina de 01-11 (Same as: l 13:46: Diamox) Kush 00 ANES No Notes: Memoria albuterol 01-11 Same as: l 90 mcg/inh 13:46: Ventolin Her lawson inhalation 00 HFA WASTE: aerosol Aerosol - Return to Pharmacy celecoxib No Notes: Memori a 01-11 NSAID. l 13:46: Please [place] 00 check indication . Not for seizure. (Same As: CeleBREX) Flumazenil No Notes: Memor ia 01-11 (Same as: l 13:46: Romazicon) [place] 00 Ephedrine No Notes: Memori a 01-11 final l 13:46: concentrat [place] ion 5 mg/mL Dexamethaso No Notes: Jah jina ne 01-11 Concentrat l 13:46: ion: Kush 00 4mg/ml Hydromorpho No Notes: Jah jina ne 01-11 Same as l 13:46: Dilaudid [place] 00 Oxycodone No Notes: Memori a 01-11 (Same as: l 13:46: Roxicodone Kush 00 ) Morphine No Notes: Memoria 01-11 (Same l 13:46: as:MORPhin Kush 00 e Sulfate) Metoprolol No Notes: Memor ia 01-11 (Same as: l 13:46: Lopressor) Kush 00 Push over 2 minutes Acetaminoph No Notes: Max Memoria en 01-11 acetaminop l 13:46: hen 4000 Kush 00 mg/day (4 gm/day). (Same as: Tylenol Extra Strength) Labetalol No Notes: Memori a 01-11 (Same as: l 13:46: Normodyne, [place] 00 Trandate) Push over 2 minutes Give bolus over 2-3 minutes. Ibuprofen No Notes: Memori a 01-11 (Same as: l 13:46: Motrin) [place] 00 "Do Not Crush" Take with food. Hydralazine No Notes: Jah jina 01-11 (Same as: l 13:46: Apresoline [place] 00 ) Push over 5 minutes Calcium No 1,000 mL, Memor ia Chloride 01-11 Rate: 125 l 0.0014 13:46: ml/hr, [place] MEQ/ML / 00 Infuse Potassium over: 8 Chloride hr, Route: 0.004 IV, Dosing MEQ/ML / Weight Sodium 111.409 Chloride kg, Total 0.103 Volume: MEQ/ML / 1,000, Sodium Start Lactate date: 0.028 01/11/17 MEQ/ML 8:46:00 Injectable CDT, Solution Duration: 30 day, Stop date: 02/10/17 8:45:00 CDT Insulin, No Notes: Memoria Aspart, 01-11 [...] 01-11 not give l 13:46: IV push. [place] 00 (Same as: Phenergan) Ondansetron No Notes: Jah jina 01-11 (Same as: l 13:46: Zofran) MEDICATION WASTE Product Size: 4 mg Product Wasted: ___ mg Diphenhydra No Notes: Jah jina mine 01-11 (Same as: l 13:46: Benadryl) Kush 00 Insulin, No Notes: Memoria Aspart, 01-11 Roll in l Human 13:46: palms of hands gently; Do not shake [...] l 13:46: IV push. (Same as: Phenergan) Albuterol No Notes: SEE Me moria 0.83 MG/ML 01-11 RT l Inhalant 13:46: DOCUMENTAT Her lawson Solution 00 ION (Same as: Proventil) Ondansetron No Notes: Jah jina 01-11 (Same as: l 13:46: Zofran) MEDICATION WASTE Product Size: 4 mg Product Wasted: ___ mg Diphenhydra No Notes: Jah jina mine 01-11 (Same as: l 13:46: Benadryl) Albuterol No Notes: SEE Me moria 0.83 MG/ML 808 RT l Inhalant 13:46: DOCUMENTAT Her lawson Solution 00 ION (Same as: Proventil) Glycopyrrol No Notes: Jah jina ate 01-11 (Same as: l 13:46: Robinul) Kush Atropine No Notes: Mem oria 01-11 MEDICATION l 13:46: WASTE Kush 00 Product Size: 0.4 mg Product Wasted: ___ mg Albuterol No Notes: Memori a 0.833 MG/ML 01-11 (Same as: l / 13:46: Duoneb) [place] Ipratropium 00 [place] 0.167 MG/ML Inhalant Solution [DuoNeb] Phenylephri No Notes: Jah jina ne 01-11 Same as: l 13:46: Yassine-Syneph [place] 00 rine Acetazolami No Notes: Jah jina de 01-11 (Same as: l 13:46: Diamox) [place] 00 ANES No Notes: Memoria albuterol 01-11 Same as: l 90 mcg/inh 13:46: Ventolin Her lawson inhalation 00 HFA WASTE: aerosol Aerosol - Return to Pharmacy celecoxib No Notes: Memori a 01-11 NSAID. l 13:46: Please [place] 00 check indication . Not for seizure. (Same As: CeleBREX) Glycopyrrol No Notes: Jah ijna ate 01-11 (Same as: l 13:46: Robinul) Kush 00 Flumazenil No Notes: Memor ia 01-11 (Same as: l 13:46: Romazicon) Kush 00 Ephedrine No Notes: Memori a 01-11 final l 13:46: concentrat Kush 00 ion 5 mg/mL Dexamethaso No Notes: Jah jina ne 01-11 Concentrat l 13:46: ion: [place] 00 4mg/ml Hydromorpho No Notes: Jah jina ne 01-11 Same as l 13:46: Dilaudid [place] 00 Oxycodone No Notes: Memori a 01-11 (Same as: l 13:46: Roxicodone ) Morphine No Notes: Memoria 01-11 (Same l 13:46: as:MORPhin [place] 00 e Sulfate) Metoprolol No Notes: Memor ia 01-11 (Same as: l 13:46: Lopressor) Kush 00 Push over 2 minutes Acetaminoph No Notes: Max Memoria en 01-11 acetaminop l 13:46: hen 4000 [place] 00 mg/day (4 gm/day). (Same as: Tylenol Extra Strength) Labetalol No Notes: Memori a 01-11 (Same as: l 13:46: Normodyne, [place] 00 Trandate) Push over 2 minutes Give bolus over 2-3 minutes. Ibuprofen No Notes: Memori a 01-11 (Same as: l 13:46: Motrin) [place] 00 "Do Not Crush" Take with food. Atropine No Notes: Mem oria 01-11 MEDICATION l 13:46: WASTE Kush 00 Product Size: 0.4 mg Product Wasted: ___ mg Hydralazine No Notes: Jah jina 01-11 (Same as: l 13:46: Apresoline Kush 00 ) Push over 5 minutes Calcium No 1,000 mL, Memor ia Chloride 01-11 Rate: 125 l 0.0014 13:46: ml/hr, Kush MEQ/ML / 00 Infuse Potassium over: 8 Chloride hr, Route: 0.004 IV, Dosing MEQ/ML / Weight Sodium 111.409 Chloride kg, Total 0.103 Volume: MEQ/ML / 1,000, Sodium Start Lactate date: 0.028 01/11/17 MEQ/ML 8:46:00 Injectable CDT, Solution Duration: 30 day, Stop date: 02/10/17 8:45:00 CDT Albuterol No Notes: Memori a 0.833 MG/ML 01-11 (Same as: l / 13:46: Duoneb) [place] Ipratropium 00 [place] 0.167 MG/ML Inhalant Solution [DuoNeb] Phenylephri No Notes: Jah jina ne 01-11 Same as: l 13:46: Yassine-Syneph [place] 00 rine Acetazolami No Notes: Jah jina de 01-11 (Same as: l 13:46: Diamox) [place] 00 ANES No Notes: Memoria albuterol 01-11 Same as: l 90 mcg/inh 13:46: Ventolin Her lawson inhalation 00 HFA WASTE: aerosol Aerosol - Return to Pharmacy celecoxib No Notes: Memori a 01-11 NSAID. l 13:46: Please [place] check indication . Not for seizure. (Same As: CeleBREX) Flumazenil No Notes: Memor ia 01-11 (Same as: l 13:46: Romazicon) [place] 00 Ephedrine No Notes: Memori a 01-11 final l 13:46: concentrat [place] 00 ion 5 mg/mL Dexamethaso No Notes: Jah jina ne 01-11 Concentrat l 13:46: ion: [place] 00 4mg/ml Hydromorpho No Notes: Jah jina ne 01-11 Same as l 13:46: Dilaudid [place] 00 Oxycodone No Notes: Memori a 01-11 (Same as: l 13:46: Roxicodone [place] 00 ) Morphine No Notes: Memoria 01-11 (Same l 13:46: as:MORPhin [place] 00 e Sulfate) Insulin, No Notes: Memoria Aspart, 01-11 Roll [...] a 01-11 (Same as: l 13:46: Versed) [place] 00 MEDICATION WASTE Product Size: 2 mg Product Wasted: ___ mg Naloxone No Notes: Memoria 01-11 Same as l 13:46: Narcan [place] 00 Meperidine No Notes: Memor ia 01-11 (Same as: l 13:46: Demerol) "Use Precaution in Elderly, Seizure disorders, and Renal impairment " Promethazin No Notes: Do M emoria e 01-11 not give l 13:46: IV push. [place] 00 (Same as: Phenergan) Ondansetron No Notes: Jah jina 01-11 (Same as: l 13:46: Zofran) MEDICATION WASTE Product Size: 4 mg Product Wasted: ___ mg Diphenhydra No Notes: Jah jina mine 01-11 (Same as: l 13:46: Benadryl) Albuterol No Notes: SEE Me moria 0.83 MG/ML 01-11 RT l Inhalant 13:46: DOCUMENTAT Her lawson Solution 00 ION (Same as: Proventil) Metoprolol No Notes: Memor ia 01-11 (Same as: l 13:46: Lopressor) Push over 2 minutes Glycopyrrol No Notes: Jah jina ate 01-11 (Same as: l 13:46: Robinul) Atropine No Notes: Mem oria 01-11 MEDICATION l 13:46: WASTE Product Size: 0.4 mg Product Wasted: ___ mg Albuterol No Notes: Memori a 0.833 MG/ML 01-11 (Same as: l / 13:46: Duoneb) Ipratropium 00 [place] 0.167 MG/ML Inhalant Solution [DuoNeb] Phenylephri No Notes: Jah jina ne 01-11 Same as: l 13:46: Yassine-Syneph rine Acetazolami No Notes: Jah jina de 01-11 (Same as: l 13:46: Diamox) 00 ANES No Notes: Memoria albuterol 01-11 Same as: l 90 mcg/inh 13:46: Ventolin Her lawson inhalation 00 HFA WASTE: aerosol Aerosol - Return to Pharmacy celecoxib No Notes: Memori a 01-11 NSAID. l 13:46: Please [place] 00 check indication . Not for seizure. (Same As: CeleBREX) Flumazenil No Notes: Memor ia 8-08 (Same as: l 13:46: Romazicon) Kush 00 Ephedrine No Notes: Memori a 8-08 final l 13:46: concentrat [place] 00 ion 5 mg/mL Dexamethaso No Notes: Jah jina ne 01-11 Concentrat l 13:46: ion: [place] 00 4mg/ml Acetaminoph No Notes: Max Memoria en 8-08 acetaminop l 13:46: hen 4000 [place] 00 mg/day (4 gm/day). (Same as: Tylenol Extra Strength) Hydromorpho No Notes: Jah jina ne 01-11 Same as l 13:46: Dilaudid Kush 00 Oxycodone No Notes: Memori a 01-11 (Same as: l 13:46: Roxicodone [place] 00 ) Morphine No Notes: Memoria 8 (Same l 13:46: as:MORPhin Kush 00 e Sulfate) Metoprolol No Notes: Memor ia - (Same as: l 13:46: Lopressor) Push over 2 minutes Acetaminoph No Notes: Max Memoria en 08 acetaminop l 13:46: hen 4000 [place] 00 mg/day (4 gm/day). (Same as: Tylenol Extra Strength) Labetalol No Notes: Memori a 01-11 (Same as: l 13:46: Normodyne, [place] 00 Trandate) Push over 2 minutes Give bolus over 2-3 minutes. Ibuprofen No Notes: Memori a 01-11 (Same as: l 13:46: Motrin) "Do Not Crush" Take with food. Hydralazine No Notes: Jah jina 01-11 (Same as: l 13:46: Apresoline [place] 00 ) Push over 5 minutes Calcium No 1,000 mL, Memor ia Chloride 01-11 Rate: 125 l 0.0014 13:46: ml/hr, [place] MEQ/ML / 00 Infuse Potassium over: 8 Chloride hr, Route: 0.004 IV, Dosing MEQ/ML / Weight Sodium 111.409 Chloride kg, Total 0.103 Volume: MEQ/ML / 1,000, Sodium Start Lactate date: 0.028 01/11/ MEQ/ML 8:46:00 Injectable CDT, Solution Duration: 30 day, Stop date: 02/10/17 8:45:00 CDT Labetalol No Notes: Memori a 01-11 (Same as: l 13:46: Normodyne, [place] 00 Trandate) Push over 2 minutes Give bolus over 2-3 minutes. Ibuprofen No Notes: Memori a 01-11 (Same as: l 13:46: Motrin) [place] "Do Not Crush" Take with food. Hydralazine No Notes: Jah jina 01-11 (Same as: l 13:46: Apresoline [place] 00 ) Push over 5 minutes Calcium No 1,000 mL, Memor ia Chloride 01-11 Rate: 125 l 0.0014 13:46: ml/hr, [place] MEQ/ML / 00 Infuse Potassium over: 8 Chloride hr, Route: 0.004 IV, Dosing MEQ/ML / Weight Sodium 111.409 Chloride kg, Total 0.103 Volume: MEQ/ML / 1,000, Sodium Start Lactate date: 0.028 01/11/17 MEQ/ML 8:46:00 Injectable CDT, Solution Duration: 30 day, Stop date: 02/10/17 8:45:00 CDT Insulin, No Notes: Memoria Aspart, 01-11 Roll in l Human 13:46: palms of [place] 00 hands gently; Do not shake vigorously . (Same as: NovoLOG) "single patient use only" WASTE: F/P - Black; E - Municipal Trash Bin Stable for 28 days at room temperatur e. Expires in days from ____Date 72 HR No Notes: Memoria Scopolamine 01-11 Change l 0.0139 13:46: patch [place] MG/HR 00 every 72 Transdermal hours Patch (Same as: Transderm- Scop) Midazolam No Notes: Memori a 01-11 (Same as: l 13:46: Versed) MEDICATION WASTE Product Size: 2 mg Product Wasted: ___ mg Naloxone No Notes: Memoria 01-11 Same as l 13:46: Narcan [place] 00 Meperidine No Notes: Memor ia 01-11 (Same as: l 13:46: Demerol) "Use Precaution in Elderly, Seizure disorders, and Renal impairment " Promethazin No Notes: Do M emoria e 01-11 not give l 13:46: IV push. [place] 00 (Same as: Phenergan) Ondansetron No Notes: Jah [...] 01-11 (Same as: l / 13:46: Duoneb) Ipratropium 00 [place] 0.167 MG/ML Inhalant Solution [DuoNeb] Phenylephri No Notes: Jah jina ne 01-11 Same as: l 13:46: Yassine-Syneph rine Acetazolami No Notes: Jah jina de 01-11 (Same as: l 13:46: Diamox) ANES No Notes: Memoria albuterol 01-11 Same as: l 90 mcg/inh 13:46: Ventolin Her lawson inhalation 00 HFA WASTE: aerosol Aerosol - Return to Pharmacy celecoxib No Notes: Memori a 01-11 NSAID. l 13:46: Please [place] 00 check indication . Not for seizure. (Same As: CeleBREX) Flumazenil No Notes: Memor ia 01-11 (Same as: l 13:46: Romazicon) Kush 00 Ephedrine No Notes: Memori a 01-11 final l 13:46: concentrat [place] 00 ion 5 mg/mL Dexamethaso No Notes: Jah jina ne 01-11 Concentrat l 13:46: ion: [place] 00 4mg/ml Hydromorpho No Notes: Jah jina ne 01-11 Same as l 13:46: Dilaudid Kush 00 Oxycodone No Notes: Memori a 01-11 (Same as: l 13:46: Roxicodone [place] 00 ) Morphine No Notes: Memoria 01-11 (Same l 13:46: as:MORPhin Kush 00 e Sulfate) Metoprolol No Notes: Memor ia 01-11 (Same as: l 13:46: Lopressor) Kush 00 Push over 2 minutes Acetaminoph No Notes: Max Memoria en 01-11 acetaminop l 13:46: hen 4000 [place] 00 mg/day (4 gm/day). (Same as: Tylenol Extra Strength) Labetalol No Notes: Memori a 01-11 (Same as: l 13:46: Normodyne, Kush 00 Trandate) Push over 2 minutes Give bolus over 2-3 minutes. Ibuprofen No Notes: Memori a 01-11 (Same as: l 13:46: Motrin) "Do Not Crush" Take with food. Hydralazine No Notes: Jah jina 01-11 (Same as: l 13:46: Apresoline Kush 00 ) Push over 5 minutes Calcium No 1,000 mL, Memor ia Chloride 01-11 Rate: 125 l 0.0014 13:46: ml/hr, Kush MEQ/ML / 00 Infuse Potassium over: 8 Chloride hr, Route: 0.004 IV, Dosing MEQ/ML / Weight Sodium 111.409 Chloride kg, Total 0.103 Volume: MEQ/ML / 1,000, Sodium Start Lactate date: 0.028 01/11/17 MEQ/ML 8:46:00 Injectable CDT, Solution Duration: 30 day, Stop date: 02/10/17 8:45:00 CDT Insulin, No Notes: Memoria Aspart, 01-11 [...] Memoria 01-11 Same as l 13:46: Narcan Kush 00 Meperidine No Notes: Memor ia 01-11 (Same as: l 13:46: Demerol) "Use Precaution in Elderly, Seizure disorders, and Renal impairment " Promethazin No Notes: Do M emoria e 01-11 not give l 13:46: IV push. Kush 00 (Same as: Phenergan) Ondansetron No Notes: Jah jina 01-11 (Same as: l 13:46: Zofran) Kush 00 MEDICATION WASTE Product Size: 4 mg Product Wasted: ___ mg Diphenhydra No Notes: Jah jina mine 01-11 (Same as: l 13:46: Benadryl) Albuterol No Notes: SEE Me moria 0.83 MG/ML 01-11 RT l Inhalant 13:46: DOCUMENTAT Her lawson Solution 00 ION (Same as: Proventil) Glycopyrrol No Notes: Jah jina ate 01-11 (Same as: l 13:46: Robinul) Kush Atropine No Notes: Mem oria 01-11 MEDICATION l 13:46: WASTE [place] 00 Product Size: 0.4 mg Product Wasted: ___ mg Albuterol No Notes: Memori a 0.833 MG/ML 01-11 (Same as: l / 13:46: Duoneb) Ipratropium 00 [place] 0.167 MG/ML Inhalant Solution [DuoNeb] Phenylephri No Notes: Jah jina ne 01-11 Same as: l 13:46: Yassine-Syneph [place] 00 rine Acetazolami No Notes: Jah jina de 01-11 (Same as: l 13:46: Diamox) Kush ANES No Notes: Memoria albuterol 01-11 Same as: l 90 mcg/inh 13:46: Ventolin Her lawson inhalation 00 HFA WASTE: aerosol Aerosol - Return to Pharmacy celecoxib No Notes: Memori a 01-11 NSAID. l 13:46: Please Kush 00 check indication . Not for seizure. (Same As: CeleBREX) Flumazenil No Notes: Memor ia 01-11 (Same as: l 13:46: Romazicon) Kush 00 Ephedrine No Notes: Memori a 01-11 final l 13:46: concentrat [place] ion 5 mg/mL Dexamethaso No Notes: Jah jina ne 01-11 Concentrat l 13:46: ion: [place] 00 4mg/ml Hydromorpho No Notes: Jah jina ne 01-11 Same as l 13:46: Dilaudid [place] 00 Oxycodone No Notes: Memori a 01-11 (Same as: l 13:46: Roxicodone [place] 00 ) Morphine No Notes: Memoria 01-11 (Same l 13:46: as:MORPhin Kush 00 e Sulfate) Metoprolol No Notes: Memor ia 01-11 (Same as: l 13:46: Lopressor) Kush 00 Push over 2 minutes Acetaminoph No Notes: Max Memoria en 01-11 acetaminop l 13:46: hen 4000 Kush 00 mg/day (4 gm/day). (Same as: Tylenol Extra Strength) Labetalol No Notes: Memori a 01-11 (Same as: l 13:46: Normodyne, Kush 00 Trandate) Push over 2 minutes Give bolus over 2-3 minutes. Ibuprofen No Notes: Memori a 01-11 (Same as: l 13:46: Motrin) Kush 00 "Do Not Crush" Take with food. Hydralazine No Notes: Jah jina 01-11 (Same as: l 13:46: Apresoline [place] 00 ) Push over 5 minutes Calcium No 1,000 mL, Memor ia Chloride 01-11 Rate: 125 l 0.0014 13:46: ml/hr, Kush MEQ/ML / 00 Infuse Potassium over: 8 Chloride hr, Route: 0.004 IV, Dosing MEQ/ML / Weight Sodium 111.409 Chloride kg, Total 0.103 Volume: MEQ/ML / 1,000, Sodium Start Lactate date: 0.028 01/11/17 MEQ/ML 8:46:00 Injectable CDT, Solution Duration: 30 day, Stop date: 02/10/17 8:45:00 CDT Insulin, No Notes: Memoria Aspart, 01-11 [...] a 01-11 (Same as: l 13:46: Versed) Kush 00 MEDICATION WASTE Product Size: 2 mg Product [...] 01-11 (Same as: l / 13:46: Duoneb) Ipratropium 00 [place] 0.167 MG/ML Inhalant Solution [DuoNeb] Phenylephri No Notes: Jah jina ne 01-11 Same as: l 13:46: Yassine-Syneph rine Acetazolami No Notes: Jah jina de 01-11 (Same as: l 13:46: Diamox) ANES No Notes: Memoria albuterol 01-11 Same as: l 90 mcg/inh 13:46: Ventolin Her lawson inhalation 00 HFA WASTE: aerosol Aerosol - Return to Pharmacy celecoxib No Notes: Memori a 8-08 NSAID. l 13:46: Please Kush 00 check indication . Not for seizure. (Same As: CeleBREX) Flumazenil No Notes: Memor ia 01-11 (Same as: l 13:46: Romazicon) [place] 00 Ephedrine No Notes: Memori a 01-11 final l 13:46: concentrat [place] 00 ion 5 mg/mL Dexamethaso No Notes: Jah jina ne 01-11 Concentrat l 13:46: ion: Kush 00 4mg/ml Hydromorpho No Notes: Jah jina ne 01-11 Same as l 13:46: Dilaudid Oxycodone No Notes: Memori a 01-11 (Same as: l 13:46: Roxicodone ) Morphine No Notes: Memoria 01-11 (Same l 13:46: as:MORPhin Kush 00 e Sulfate) Metoprolol No Notes: Memor ia 01-11 (Same as: l 13:46: Lopressor) Push over 2 minutes Acetaminoph No Notes: Max Memoria en 01-11 acetaminop l 13:46: hen 4000 Kush 00 mg/day (4 gm/day). (Same as: Tylenol Extra Strength) Labetalol No Notes: Memori a 01-11 (Same as: l 13:46: Normodyne, Kush 00 Trandate) Push over 2 minutes Give bolus over 2-3 minutes. Ibuprofen No Notes: Memori a 01-11 (Same as: l 13:46: Motrin) "Do Not Crush" Take with food. Hydralazine No Notes: Jah jina 01-11 (Same as: l 13:46: Apresoline ) Push over 5 minutes Calcium No 1,000 mL, Memor ia Chloride 01-11 Rate: 125 l 0.0014 13:46: ml/hr, [place] MEQ/ML / 00 Infuse Potassium over: 8 Chloride hr, Route: 0.004 IV, Dosing MEQ/ML / Weight Sodium 111.409 Chloride kg, Total 0.103 Volume: MEQ/ML / 1,000, Sodium Start Lactate date: 0.028 01/11/17 MEQ/ML 8:46:00 Injectable CDT, Solution Duration: 30 day, Stop date: 02/10/17 8:45:00 CDT Insulin, No Notes: Memoria Aspart, 01-11 Roll in l Human 13:46: palms of [place] 00 hands gently; Do not shake vigorously . (Same as: NovoLOG) "single patient use only" WASTE: F/P - Black; E - Municipal Trash Bin Stable for 28 days at room temperatur e. Expires in days from ____Date 72 HR No Notes: Memoria Scopolamine 01-11 Change l 0.0139 13:46: patch [place] MG/HR 00 every 72 Transdermal hours Patch [...] Mem oria 01-11 MEDICATION l 13:46: WASTE [place] 00 Product Size: 0.4 mg Product Wasted: ___ mg Albuterol No Notes: Memori a 0.833 MG/ML 01-11 (Same as: l / 13:46: Duoneb) Ipratropium 00 [place] 0.167 MG/ML Inhalant Solution [DuoNeb] Phenylephri No Notes: Jah jina ne 01-11 Same as: l 13:46: Yassine-Syneph [place] 00 rine Acetazolami No Notes: Jah jina de 01-11 (Same as: l 13:46: Diamox) ANES No Notes: Memoria albuterol 01-11 Same as: l 90 mcg/inh 13:46: Ventolin Her lawson inhalation 00 HFA WASTE: aerosol Aerosol - Return to Pharmacy celecoxib No Notes: Memori a 01-11 NSAID. l 13:46: Please Kush 00 check indication . Not for seizure. (Same As: CeleBREX) Flumazenil No Notes: Memor ia 01-11 (Same as: l 13:46: Romazicon) Ephedrine No Notes: Memori a 01-11 final l 13:46: concentrat Kush 00 ion 5 mg/mL Dexamethaso No Notes: Jah jina ne 01-11 Concentrat l 13:46: ion: [place] 00 4mg/ml Hydromorpho No Notes: Jah jina ne 01-11 Same as l 13:46: Dilaudid [place] 00 Oxycodone No Notes: Memori a 01-11 (Same as: l 13:46: Roxicodone Kush 00 ) Morphine No Notes: Memoria 01-11 (Same l 13:46: as:MORPhin Kush 00 e Sulfate) Metoprolol No Notes: Memor ia 01-11 (Same as: l 13:46: Lopressor) Push over 2 minutes Acetaminoph No Notes: Max Memoria en 01-11 acetaminop l 13:46: hen 4000 [place] 00 mg/day (4 gm/day). (Same as: Tylenol Extra Strength) Labetalol No Notes: Memori a 01-11 (Same as: l 13:46: Normodyne, Kush 00 Trandate) Push over 2 minutes Give bolus over 2-3 minutes. Ibuprofen No Notes: Memori a 01-11 (Same as: l 13:46: Motrin) Kush "Do Not Crush" Take with food. Hydralazine No Notes: Jah jina 01-11 (Same as: l 13:46: Apresoline [place] ) Push over 5 minutes Calcium No 1,000 mL, Memor ia Chloride 01-11 Rate: 125 l 0.0014 13:46: ml/hr, Kush MEQ/ML / 00 Infuse Potassium over: 8 Chloride hr, Route: 0.004 IV, Dosing MEQ/ML / Weight Sodium 111.409 Chloride kg, Total 0.103 Volume: MEQ/ML / 1,000, Sodium Start Lactate date: 0.028 01/11/17 MEQ/ML 8:46:00 Injectable CDT, Solution Duration: 30 day, Stop date: 02/10/17 8:45:00 CDT Insulin, No Notes: Memoria Aspart, 01-11 Roll in l Human 13:46: palms of Kush 00 hands gently; Do not shake vigorously . (Same as: NovoLOG) "single patient use only" WASTE: F/P - Black; E - Municipal Trash Bin Stable for 28 days at room temperatur e. Expires in days from ____Date Insulin, No Notes: Memoria Aspart, 01-11 Roll in l Human 13:46: palms of Kush 00 hands gently; Do not shake vigorously . (Same as: NovoLOG) "single patient use only" WASTE: F/P - Black; E - Municipal Trash Bin Stable for 28 days at room temperatur e. Expires in days from ____Date 72 HR No Notes: Memoria Scopolamine 01-11 Change l 0.0139 13:46: patch [place] MG/HR 00 every 72 Transdermal hours Patch (Same as: Transderm- Scop) Midazolam No Notes: Memori a 01-11 (Same as: l 13:46: Versed) Kush 00 MEDICATION WASTE Product Size: 2 mg Product Wasted: ___ mg Naloxone No Notes: Memoria 01-11 Same as l 13:46: Narcan [place] 00 Meperidine No Notes: Memor ia 01-11 (Same as: l 13:46: Demerol) "Use Precaution in Elderly, Seizure disorders, and Renal impairment " Promethazin No Notes: Do M emoria e 01-11 not give l 13:46: IV push. Kush 00 (Same as: Phenergan) Ondansetron No Notes: Jah jina 01-11 (Same as: l 13:46: Zofran) Kush 00 MEDICATION WASTE Product Size: 4 mg Product Wasted: ___ mg Diphenhydra No Notes: Jah jina mine 01-11 (Same as: l 13:46: Benadryl) Albuterol No Notes: SEE Me moria 0.83 MG/ML 01-11 RT l Inhalant 13:46: DOCUMENTAT Her lawson Solution 00 ION (Same as: Proventil) Glycopyrrol No Notes: Jah jina ate 01-11 (Same as: l 13:46: Robinul) [place] 00 Atropine No Notes: Mem oria 01-11 MEDICATION l 13:46: WASTE Product Size: 0.4 mg Product Wasted: ___ mg Albuterol No Notes: Memori a 0.833 MG/ML 01-11 (Same as: l / 13:46: Duoneb) [place] Ipratropium 00 [place] 0.167 MG/ML Inhalant Solution [DuoNeb] Phenylephri No Notes: Jah jina ne 01-11 Same as: l 13:46: Yassine-Syneph Kush rine Acetazolami No Notes: Jah jina de 01-11 (Same as: l 13:46: Diamox) Kush 00 72 HR No Notes: Memoria Scopolamine 01-11 Change l 0.0139 13:46: patch [place] MG/HR 00 every 72 Transdermal hours Patch (Same as: Transderm- Scop) ANES No Notes: Memoria albuterol 01-11 Same as: l 90 mcg/inh 13:46: Ventolin Her lawson inhalation 00 HFA WASTE: aerosol Aerosol - Return to Pharmacy celecoxib No Notes: Memori a 01-11 NSAID. l 13:46: Please Kush check indication . Not for seizure. (Same As: CeleBREX) Flumazenil No Notes: Memor ia 01-11 (Same as: l 13:46: Romazicon) [place] 00 Ephedrine No Notes: Memori a 01-11 final l 13:46: concentrat [place] 00 ion 5 mg/mL Dexamethaso No Notes: Jah jina ne 01-11 Concentrat l 13:46: ion: [place] 00 4mg/ml Hydromorpho No Notes: Jah jina ne 01-11 Same as l 13:46: Dilaudid [place] 00 Oxycodone No Notes: Memori a 01-11 (Same as: l 13:46: Roxicodone Kush 00 ) Morphine No Notes: Memoria 01-11 (Same l 13:46: as:MORPhin Kush 00 e Sulfate) Metoprolol No Notes: Memor ia 01-11 (Same as: l 13:46: Lopressor) Kush 00 Push over 2 minutes Acetaminoph No Notes: Max Memoria en 01-11 acetaminop l 13:46: hen 4000 Kush 00 mg/day (4 gm/day). (Same as: Tylenol Extra Strength) Labetalol No Notes: Memori a 01-11 (Same as: l 13:46: Normodyne, [place] 00 Trandate) Push over 2 minutes Give bolus over 2-3 minutes. Ibuprofen No Notes: Memori a 01-11 (Same as: l 13:46: Motrin) [place] 00 "Do Not Crush" Take with food. Hydralazine No Notes: Jah jina 01-11 (Same as: l 13:46: Apresoline [place] 00 ) Push over 5 minutes Calcium No 1,000 mL, Memor ia Chloride 01-11 Rate: 125 l 0.0014 13:46: ml/hr, [place] MEQ/ML / 00 Infuse Potassium over: 8 Chloride hr, Route: 0.004 IV, Dosing MEQ/ML / Weight Sodium 111.409 Chloride kg, Total 0.103 Volume: MEQ/ML / 1,000, Sodium Start Lactate date: 0.028 01/11/17 MEQ/ML 8:46:00 Injectable CDT, Solution Duration: 30 day, Stop date: 02/10/17 8:45:00 CDT Midazolam No Notes: Memori a 01-11 (Same as: l 13:46: Versed) MEDICATION WASTE Product Size: 2 mg Product Wasted: ___ mg Insulin, No Notes: Memoria Aspart, 01-11 Roll in l Human 13:46: palms of [place] 00 hands gently; Do not shake vigorously . (Same as: NovoLOG) "single patient use only" WASTE: F/P - Black; E - Municipal Trash Bin Stable for 28 days at room temperatur e. Expires in days from ____Date 72 HR No Notes: Memoria Scopolamine 01-11 Change l 0.0139 13:46: patch [place] MG/HR 00 every 72 Transdermal hours Patch (Same as: Transderm- Scop) Midazolam No Notes: Memori a 01-11 (Same as: l 13:46: Versed) MEDICATION WASTE Product Size: 2 mg Product Wasted: ___ mg Naloxone No Notes: Memoria 01-11 Same as l 13:46: Narcan Kush 00 Meperidine No Notes: Memor ia 01-11 (Same [...] 01-11 (Same as: l / 13:46: Duoneb) Ipratropium 00 [place] 0.167 MG/ML Inhalant Solution [DuoNeb] Phenylephri No Notes: Jah jina ne 01-11 Same as: l 13:46: Yassine-Syneph rine Acetazolami No Notes: Jah jina de 01-11 (Same as: l 13:46: Diamox) ANES No Notes: Memoria albuterol 01-11 Same as: l 90 mcg/inh 13:46: Ventolin Her lawson inhalation 00 HFA WASTE: aerosol Aerosol - Return to Pharmacy celecoxib No Notes: Memori a 01-11 NSAID. l 13:46: Please [place] 00 check indication . Not for seizure. (Same As: CeleBREX) Flumazenil No Notes: Memor ia 01-11 (Same as: l 13:46: Romazicon) Ephedrine No Notes: Memori a 01-11 final l 13:46: concentrat ion 5 mg/mL Dexamethaso No Notes: Jah jina ne 01-11 Concentrat l 13:46: ion: [place] 00 4mg/ml Hydromorpho No Notes: Jah jina ne 01-11 Same as l 13:46: Dilaudid Oxycodone No Notes: Memori a 01-11 (Same as: l 13:46: Roxicodone ) Morphine No Notes: Memoria 01-11 (Same l 13:46: as:MORPhin e Sulfate) Metoprolol No Notes: Memor ia 01-11 (Same as: l 13:46: Lopressor) Push over 2 minutes Acetaminoph No Notes: Max Memoria en 01-11 acetaminop l 13:46: hen 4000 mg/day (4 gm/day). (Same as: Tylenol Extra Strength) Labetalol No Notes: Memori a 01-11 (Same as: l 13:46: Normodyne, Trandate) Push over 2 minutes Give bolus over 2-3 minutes. Ibuprofen No Notes: Memori a 01-11 (Same as: l 13:46: Motrin) "Do Not Crush" Take with food. Hydralazine No Notes: Jah jina 01-11 (Same as: l 13:46: Apresoline ) Push over 5 minutes Calcium No 1,000 mL, Memor ia Chloride 01-11 Rate: 125 l 0.0014 13:46: ml/hr, Kush MEQ/ML / 00 Infuse Potassium over: 8 Chloride hr, Route: 0.004 IV, Dosing MEQ/ML / Weight Sodium 111.409 Chloride kg, Total 0.103 Volume: MEQ/ML / 1,000, Sodium Start Lactate date: 0.028 01/11/17 MEQ/ML 8:46:00 Injectable CDT, Solution Duration: 30 day, Stop date: 02/10/17 8:45:00 CDT Naloxone No Notes: Memoria 01-11 Same as l 13:46: Narcan Insulin, No Notes: Memoria Aspart, 01-11 Roll in l Human 13:46: palms of [place] 00 hands gently; Do not shake vigorously . (Same as: NovoLOG) "single patient use only" WASTE: F/P - Black; E - Municipal Trash Bin Stable for 28 days at room temperatur e. Expires in days from ____Date 72 HR No Notes: Memoria Scopolamine 01-11 Change l 0.0139 13:46: patch [place] MG/HR 00 every 72 Transdermal hours Patch [...] 01-11 (Same as: l / 13:46: Duoneb) Kush Ipratropium 00 [place] 0.167 MG/ML Inhalant Solution [DuoNeb] Phenylephri No Notes: Jah jina ne 01-11 Same as: l 13:46: Yassine-Syneph [place] 00 rine Acetazolami No Notes: Jah jina de 01-11 (Same as: l 13:46: Diamox) Kush 00 ANES No Notes: Memoria albuterol 01-11 Same as: l 90 mcg/inh 13:46: Ventolin Her lawson inhalation 00 HFA WASTE: aerosol Aerosol - Return to Pharmacy celecoxib No Notes: Memori a 01-11 NSAID. l 13:46: Please [place] 00 check indication . Not for seizure. (Same As: CeleBREX) Flumazenil No Notes: Memor ia 01-11 (Same as: l 13:46: Romazicon) Kush 00 Ephedrine No Notes: Memori a 01-11 final l 13:46: concentrat [place] ion 5 mg/mL Dexamethaso No Notes: Jah jina ne 01-11 Concentrat l 13:46: ion: Kush 00 4mg/ml Hydromorpho No Notes: Jah jina ne 01-11 Same as l 13:46: Dilaudid Kush 00 Oxycodone No Notes: Memori a 01-11 (Same as: l 13:46: Roxicodone Kush 00 ) Morphine No Notes: Memoria 01-11 (Same l 13:46: as:MORPhin Kush 00 e Sulfate) Metoprolol No Notes: Memor ia 01-11 (Same as: l 13:46: Lopressor) [place] 00 Push over 2 minutes Acetaminoph No Notes: Max Memoria en 01-11 acetaminop l 13:46: hen 4000 [place] 00 mg/day (4 gm/day). (Same as: Tylenol Extra Strength) Labetalol No Notes: Memori a 01-11 (Same as: l 13:46: Normodyne, Kush 00 Trandate) Push over 2 minutes Give bolus over 2-3 minutes. Ibuprofen No Notes: Memori a 01-11 (Same as: l 13:46: Motrin) "Do Not Crush" Take with food. Hydralazine No Notes: Jah jina 01-11 (Same as: l 13:46: Apresoline Kush 00 ) Push over 5 minutes Calcium No 1,000 mL, Memor ia Chloride 01-11 Rate: 125 l 0.0014 13:46: ml/hr, Kush MEQ/ML / 00 Infuse Potassium over: 8 Chloride hr, Route: 0.004 IV, Dosing MEQ/ML / Weight Sodium 111.409 Chloride kg, Total 0.103 Volume: MEQ/ML / 1,000, Sodium Start Lactate date: 0.028 01/11/17 MEQ/ML 8:46:00 Injectable CDT, Solution Duration: 30 day, Stop date: 02/10/17 8:45:00 CDT Meperidine No Notes: Memor ia 01-11 (Same as: l 13:46: Demerol) "Use Precaution in Elderly, Seizure disorders, and Renal impairment " Insulin, No Notes: Memoria Aspart, 01-11 Roll [...] Size: 2 mg Product Wasted: ___ mg Promethazin No Notes: Do M emoria e 01-11 not give l 13:46: IV push. Kush 00 (Same as: Phenergan) Naloxone No Notes: Memoria 01-11 Same as [...] 01-11 (Same as: l / 13:46: Duoneb) Ipratropium 00 [place] 0.167 MG/ML Inhalant Solution [DuoNeb] Phenylephri No Notes: Jah jina ne 01-11 Same as: l 13:46: Yassine-Syneph rine Acetazolami No Notes: Jah jina de 01-11 (Same as: l 13:46: Diamox) ANES No Notes: Memoria albuterol 01-11 Same as: l 90 mcg/inh 13:46: Ventolin Her lawson inhalation 00 HFA WASTE: aerosol Aerosol - Return to Pharmacy celecoxib No Notes: Memori a 01-11 NSAID. l 13:46: Please Kush 00 check indication . Not for seizure. (Same As: CeleBREX) Flumazenil No Notes: Memor ia 01-11 (Same as: l 13:46: Romazicon) Ephedrine No Notes: Memori a 01-11 final l 13:46: concentrat [place] 00 ion 5 mg/mL Dexamethaso No Notes: Jah jina ne 01-11 Concentrat l 13:46: ion: [place] 00 4mg/ml Hydromorpho No Notes: Jah jina ne 01-11 Same as l 13:46: Dilaudid Oxycodone No Notes: Memori a 01-11 (Same as: l 13:46: Roxicodone ) Morphine No Notes: Memoria 01-11 (Same l 13:46: as:MORPhin Kush 00 e Sulfate) Metoprolol No Notes: Memor ia 01-11 (Same as: l 13:46: Lopressor) Push over 2 minutes Acetaminoph No Notes: Max Memoria en 01-11 acetaminop l 13:46: hen 4000 [place] 00 mg/day (4 gm/day). (Same as: Tylenol Extra Strength) Labetalol No Notes: Memori a 01-11 (Same as: l 13:46: Normodyne, Kush 00 Trandate) Push over 2 minutes Give bolus over 2-3 minutes. Ibuprofen No Notes: Memori a 01-11 (Same as: l 13:46: Motrin) "Do Not Crush" Take with food. Hydralazine No Notes: Jah jina 01-11 (Same as: l 13:46: Apresoline ) Push over 5 minutes Calcium No 1,000 mL, Memor ia Chloride 01-11 Rate: 125 l 0.0014 13:46: ml/hr, [place] MEQ/ML / 00 Infuse Potassium over: 8 Chloride hr, Route: 0.004 IV, Dosing MEQ/ML / Weight Sodium 111.409 Chloride kg, Total 0.103 Volume: MEQ/ML / 1,000, Sodium Start Lactate date: 0.028 01/11/17 MEQ/ML 8:46:00 Injectable CDT, Solution Duration: 30 day, Stop date: 02/10/17 8:45:00 CDT Insulin, No Notes: Memoria Aspart, 01-11 [...] Scopolamine 01-11 Change l 0.0139 13:46: patch [place] MG/HR 00 every 72 Transdermal hours Patch (Same as: Transderm- Scop) Midazolam No Notes: Memori a 01-11 (Same as: l 13:46: Versed) Kush 00 MEDICATION WASTE Product Size: 2 mg Product [...] jina 01-11 (Same as: l 13:46: Zofran) Kush 00 MEDICATION WASTE Product Size: 4 mg Product Wasted: ___ mg Ondansetron No Notes: Jah jina 01-11 (Same as: l 13:46: Zofran) Kush 00 MEDICATION WASTE Product Size: 4 mg Product Wasted: ___ mg Diphenhydra No Notes: Jah jina mine 01-11 (Same as: l 13:46: Benadryl) Albuterol No Notes: SEE Me moria 0.83 MG/ML 01-11 RT l Inhalant 13:46: DOCUMENTAT Her lawson Solution 00 ION (Same as: Proventil) Glycopyrrol No Notes: Jah jina ate 01-11 (Same as: l 13:46: Robinul) Kush 00 Atropine No Notes: Mem oria 01-11 MEDICATION l 13:46: WASTE [place] 00 Product Size: 0.4 mg Product Wasted: ___ mg Albuterol No Notes: Memori a 0.833 MG/ML 01-11 (Same as: l / 13:46: Duoneb) Ipratropium 00 [place] 0.167 MG/ML Inhalant Solution [DuoNeb] Phenylephri No Notes: Jah jina ne 01-11 Same as: l 13:46: Yassine-Syneph [place] 00 rine Acetazolami No Notes: Jah jina de 01-11 (Same as: l 13:46: Diamox) Kush 00 ANES No Notes: Memoria albuterol 01-11 Same as: l 90 mcg/inh 13:46: Ventolin Her lawson inhalation 00 HFA WASTE: aerosol Aerosol - Return to Pharmacy celecoxib No Notes: Memori a 01-11 NSAID. l 13:46: Please [place] 00 check indication . Not for seizure. (Same As: CeleBREX) Diphenhydra No Notes: Jah jina mine 01-11 (Same as: l 13:46: Benadryl) Kush 00 Flumazenil No Notes: Memor ia 01-11 (Same as: l 13:46: Romazicon) Ephedrine No Notes: Memori a 01-11 final l 13:46: concentrat Kush 00 ion 5 mg/mL Dexamethaso No Notes: Jah jina ne 01-11 Concentrat l 13:46: ion: Kush 00 4mg/ml Hydromorpho No Notes: Jah jina ne 01-11 Same as l 13:46: Dilaudid [place] 00 Oxycodone No Notes: Memori a 01-11 (Same as: l 13:46: Roxicodone Kush 00 ) Morphine No Notes: Memoria 01-11 (Same l 13:46: as:MORPhin Kush 00 e Sulfate) Metoprolol No Notes: Memor ia 01-11 (Same as: l 13:46: Lopressor) [place] 00 Push over 2 minutes Acetaminoph No Notes: Max Memoria en 01-11 acetaminop l 13:46: hen 4000 Kush 00 mg/day (4 gm/day). (Same as: Tylenol Extra Strength) Labetalol No Notes: Memori a 01-11 (Same as: l 13:46: Normodyne, [place] 00 Trandate) Push over 2 minutes Give bolus over 2-3 minutes. Ibuprofen No Notes: Memori a 01-11 (Same as: l 13:46: Motrin) [place] 00 "Do Not Crush" Take with food. Albuterol No Notes: SEE Me moria 0.83 MG/ML 01-11 RT l Inhalant 13:46: DOCUMENTAT Her lawson Solution 00 ION (Same as: Proventil) Hydralazine No Notes: Jah jina 01-11 (Same as: l 13:46: Apresoline ) Push over 5 minutes Calcium No 1,000 mL, Memor ia Chloride 01-11 Rate: 125 l 0.0014 13:46: ml/hr, Kush MEQ/ML / 00 Infuse Potassium over: 8 Chloride hr, Route: 0.004 IV, Dosing MEQ/ML / Weight Sodium 111.409 Chloride kg, Total 0.103 Volume: MEQ/ML / 1,000, Sodium Start Lactate date: 0.028 01/11/17 MEQ/ML 8:46:00 Injectable CDT, Solution Duration: 30 day, Stop date: 02/10/17 8:45:00 CDT Glycopyrrol No Notes: Jah jina ate 01-11 (Same as: l 13:46: Robinul) [place] 00 Atropine No Notes: Mem oria 01-11 MEDICATION l 13:46: WASTE [place] 00 Product Size: 0.4 mg Product Wasted: ___ mg Albuterol No Notes: Memori a 0.833 MG/ML 01-11 (Same as: l / 13:46: Duoneb) Kush Ipratropium 00 [place] 0.167 MG/ML Inhalant Solution [DuoNeb] Phenylephri No Notes: Jah jina ne 01-11 Same as: l 13:46: Yassine-Syneph [place] 00 rine Acetazolami No Notes: Jah jina de 01-11 (Same as: l 13:46: Diamox) [place] 00 ANES No Notes: Memoria albuterol 01-11 Same as: l 90 mcg/inh 13:46: Ventolin Her lawson inhalation 00 HFA WASTE: aerosol Aerosol - Return to Pharmacy celecoxib No Notes: Memori a 01-11 NSAID. l 13:46: Please [place] 00 check indication . Not for seizure. (Same As: CeleBREX) Flumazenil No Notes: Memor ia 01-11 (Same as: l 13:46: Romazicon) [place] 00 Ephedrine No Notes: Memori a 01-11 final l 13:46: concentrat [place] 00 ion 5 mg/mL Dexamethaso No Notes: Jah jina ne 01-11 Concentrat l 13:46: ion: Kush 00 4mg/ml Insulin, No Notes: Memoria Aspart, 01-11 Roll in l Human 13:46: palms of [place] 00 hands gently; Do not shake vigorously . (Same as: NovoLOG) "single patient use only" WASTE: F/P - Black; E - Municipal Trash Bin Stable for 28 days at room temperatur e. Expires in days from ____Date Hydromorpho No Notes: Jah jina ne 01-11 Same as l 13:46: Dilaudid [place] 00 72 HR No Notes: Memoria Scopolamine 01-11 Change l 0.0139 13:46: patch [place] MG/HR 00 every 72 Transdermal hours Patch (Same as: Transderm- Scop) Midazolam No Notes: Memori a 01-11 (Same as: l 13:46: Versed) [place] 00 MEDICATION WASTE Product Size: 2 mg Product [...] Size: 0.4 mg Product Wasted: ___ mg Oxycodone No Notes: Memori a 01-11 (Same as: l 13:46: Roxicodone ) Albuterol No Notes: Memori a 0.833 MG/ML 01-11 (Same as: l / 13:46: Duoneb) Ipratropium 00 [place] 0.167 MG/ML Inhalant Solution [DuoNeb] Phenylephri No Notes: Jah jina ne 01-11 Same as: l 13:46: Yassine-Syneph rine Acetazolami No Notes: Jah jina de 01-11 (Same as: l 13:46: Diamox) ANES No Notes: Memoria albuterol 01-11 Same as: l 90 mcg/inh 13:46: Ventolin Her lawson inhalation 00 HFA WASTE: aerosol Aerosol - Return to Pharmacy celecoxib No Notes: Memori a 01-11 NSAID. l 13:46: Please [place] 00 check indication . Not for seizure. (Same As: CeleBREX) Flumazenil No Notes: Memor ia 01-11 (Same as: l 13:46: Romazicon) Kush Ephedrine No Notes: Memori a 01-11 final l 13:46: concentrat [place] 00 ion 5 mg/mL Dexamethaso No Notes: Jah jina ne 01-11 Concentrat l 13:46: ion: Kush 00 4mg/ml Hydromorpho No Notes: Jah jina ne 01-11 Same as l 13:46: Dilaudid [place] 00 Oxycodone No Notes: Memori a 01-11 (Same as: l 13:46: Roxicodone Kush 00 ) Morphine No Notes: Memoria 01-11 (Same l 13:46: as:MORPhin Kush 00 e Sulfate) Morphine No Notes: Memoria 01-11 (Same l 13:46: as:MORPhin Kush 00 e Sulfate) Metoprolol No Notes: Memor ia 01-11 (Same as: l 13:46: Lopressor) [place] 00 Push over 2 minutes Acetaminoph No Notes: Max Memoria en 01-11 acetaminop l 13:46: hen 4000 [place] 00 mg/day (4 gm/day). (Same as: Tylenol Extra Strength) Labetalol No Notes: Memori a 01-11 (Same as: l 13:46: Normodyne, [place] 00 Trandate) Push over 2 minutes Give bolus over 2-3 minutes. Ibuprofen No Notes: Memori a 01-11 (Same as: l 13:46: Motrin) Kush 00 "Do Not Crush" Take with food. Hydralazine No Notes: Jah jina 01-11 (Same as: l 13:46: Apresoline [place] 00 ) Push over 5 minutes Calcium No 1,000 mL, Memor ia Chloride 01-11 Rate: 125 l 0.0014 13:46: ml/hr, Kush MEQ/ML / 00 Infuse Potassium over: 8 Chloride hr, Route: 0.004 IV, Dosing MEQ/ML / Weight Sodium 111.409 Chloride kg, Total 0.103 Volume: MEQ/ML / 1,000, Sodium Start Lactate date: 0.028 01/11/17 MEQ/ML 8:46:00 Injectable CDT, Solution Duration: 30 day, Stop date: 02/10/17 8:45:00 CDT Metoprolol No Notes: Memor ia 01-11 (Same as: l 13:46: Lopressor) Kush Push over 2 minutes Acetaminoph No Notes: Max Memoria en 01-11 acetaminop l 13:46: hen 4000 [place] 00 mg/day (4 gm/day). (Same as: Tylenol Extra Strength) Labetalol No Notes: Memori a 01-11 (Same as: l 13:46: Normodyne, [place] 00 Trandate) Push over 2 minutes Give bolus over 2-3 minutes. Ibuprofen No Notes: Memori a 01-11 (Same as: l 13:46: Motrin) Kush "Do Not Crush" Take with food. Hydralazine No Notes: Jah jina 01-11 (Same as: l 13:46: Apresoline Kush 00 ) Push over 5 minutes Calcium No 1,000 mL, Memor ia Chloride 01-11 Rate: 125 l 0.0014 13:46: ml/hr, Kush MEQ/ML / 00 Infuse Potassium over: 8 Chloride hr, Route: 0.004 IV, Dosing MEQ/ML / Weight Sodium 111.409 Chloride kg, Total 0.103 Volume: MEQ/ML / 1,000, Sodium Start Lactate date: 0.028 01/11/17 MEQ/ML 8:46:00 Injectable CDT, Solution Duration: 30 day, Stop date: 02/10/17 8:45:00 CDT Insulin, No Notes: Memoria Aspart, 01-11 Roll in l Human 13:46: palms of [place] 00 hands gently; Do not shake vigorously . (Same as: NovoLOG) "single patient use only" WASTE: F/P - Black; E - Municipal Trash Bin Stable for 28 days at room temperatur e. Expires in days from ____Date 72 HR No Notes: Memoria Scopolamine 01-11 Change l 0.0139 13:46: patch [place] MG/HR 00 every 72 Transdermal hours Patch (Same as: Transderm- Scop) Midazolam No Notes: Memori a 01-11 (Same as: l 13:46: Versed) [place] 00 MEDICATION WASTE Product Size: 2 mg Product Wasted: ___ mg Naloxone No Notes: Memoria 01-11 Same as l 13:46: Narcan [place] 00 Meperidine No Notes: Memor ia 01-11 (Same as: l 13:46: Demerol) "Use Precaution in Elderly, Seizure disorders, and Renal impairment " Promethazin No Notes: Do M emoria e 01-11 not give l 13:46: IV push. [place] 00 (Same as: Phenergan) Ondansetron No Notes: Jah jina 01-11 (Same as: l 13:46: Zofran) Kush 00 MEDICATION WASTE Product Size: 4 mg Product [...] Mem oria 01-11 MEDICATION l 13:46: WASTE [place] 00 Product Size: 0.4 mg Product Wasted: ___ mg Albuterol No Notes: Memori a 0.833 MG/ML 01-11 (Same as: l / 13:46: Duoneb) [place] Ipratropium 00 [place] 0.167 MG/ML Inhalant Solution [DuoNeb] Phenylephri No [...] Memori a 01-11 NSAID. l 13:46: Please [place] 00 check indication . Not for seizure. (Same As: CeleBREX) Flumazenil No Notes: Memor ia 01-11 (Same as: l 13:46: Romazicon) Kush 00 Ephedrine No Notes: Memori a 01-11 final l 13:46: concentrat Kush 00 ion 5 mg/mL Dexamethaso No Notes: Jah jina ne 01-11 Concentrat l 13:46: ion: [place] 00 4mg/ml Hydromorpho No Notes: Jah jina ne 01-11 Same as l 13:46: Dilaudid Kush 00 Oxycodone No Notes: Memori a 01-11 (Same as: l 13:46: Roxicodone Kush 00 ) Morphine No Notes: Memoria 01-11 (Same l 13:46: as:MORPhin Kush 00 e Sulfate) Metoprolol No Notes: Memor ia 01-11 (Same as: l 13:46: Lopressor) [place] 00 Push over 2 minutes Acetaminoph No Notes: Max Memoria en 01-11 acetaminop l 13:46: hen 4000 Kush 00 mg/day (4 gm/day). (Same as: Tylenol Extra Strength) Labetalol No Notes: Memori a 01-11 (Same as: l 13:46: Normodyne, Kush 00 Trandate) Push over 2 minutes Give bolus over 2-3 minutes. Ibuprofen No Notes: Memori a 01-11 (Same as: l 13:46: Motrin) "Do Not Crush" Take with food. Hydralazine No Notes: Jah jina 01-11 (Same as: l 13:46: Apresoline [place] 00 ) Push over 5 minutes Calcium No 1,000 mL, Memor ia Chloride 01-11 Rate: 125 l 0.0014 13:46: ml/hr, Kush MEQ/ML / 00 Infuse Potassium over: 8 Chloride hr, Route: 0.004 IV, Dosing MEQ/ML / Weight Sodium 111.409 Chloride kg, Total 0.103 Volume: MEQ/ML / 1,000, Sodium Start Lactate date: 0.028 01/11/17 MEQ/ML 8:46:00 Injectable CDT, Solution Duration: 30 day, Stop date: 02/10/17 8:45:00 CDT Insulin, No Notes: Memoria Aspart, 01-11 Roll in l Human 13:46: palms of hands gently; Do not shake vigorously . (Same as: NovoLOG) "single patient use only" WASTE: F/P - Black; E - Municipal Trash Bin Stable for 28 days at room temperatur e. Expires in days from ____Date 72 HR No Notes: Memoria Scopolamine 01-11 Change l 0.0139 13:46: patch [place] MG/HR 00 every 72 Transdermal hours Patch [...] jina 01-11 (Same as: l 13:46: Zofran) [place] 00 MEDICATION WASTE Product Size: 4 mg Product Wasted: ___ mg Diphenhydra No Notes: Jah jina mine 01-11 (Same as: l 13:46: Benadryl) Kush 00 Albuterol No Notes: SEE Me moria 0.83 [...] 01-11 (Same as: l / 13:46: Duoneb) Ipratropium 00 [place] 0.167 MG/ML Inhalant Solution [DuoNeb] Phenylephri No [...] Memori a 01-11 NSAID. l 13:46: Please [place] 00 check indication . Not for seizure. (Same As: CeleBREX) Flumazenil No Notes: Memor ia 01-11 (Same as: l 13:46: Romazicon) Ephedrine No Notes: Memori a 01-11 final l 13:46: concentrat [place] 00 ion 5 mg/mL Dexamethaso No Notes: Jah jina ne 01-11 Concentrat l 13:46: ion: [place] 00 4mg/ml Hydromorpho No Notes: Jah jina ne 01-11 Same as l 13:46: Dilaudid Oxycodone No Notes: Memori a 01-11 (Same as: l 13:46: Roxicodone ) Morphine No Notes: Memoria 01-11 (Same l 13:46: as:MORPhin e Sulfate) Metoprolol No Notes: Memor ia 01-11 (Same as: l 13:46: Lopressor) Push over 2 minutes Acetaminoph No Notes: Max Memoria en 01-11 acetaminop l 13:46: hen 4000 Kush 00 mg/day (4 gm/day). (Same as: Tylenol Extra Strength) Labetalol No Notes: Memori a 01-11 (Same as: l 13:46: Normodyne, Kush 00 Trandate) Push over 2 minutes Give bolus over 2-3 minutes. Ibuprofen No Notes: Memori a 01-11 (Same as: l 13:46: Motrin) "Do Not Crush" Take with food. Hydralazine No Notes: Jah jina 01-11 (Same as: l 13:46: Apresoline ) Push over 5 minutes Calcium No 1,000 mL, Memor ia Chloride 01-11 Rate: 125 l 0.0014 13:46: ml/hr, Kush MEQ/ML / 00 Infuse Potassium over: 8 Chloride hr, Route: 0.004 IV, Dosing MEQ/ML / Weight Sodium 111.409 Chloride kg, Total 0.103 Volume: MEQ/ML / 1,000, Sodium Start Lactate date: 0.028 01/11/17 MEQ/ML 8:46:00 Injectable CDT, Solution Duration: 30 day, Stop date: 02/10/17 8:45:00 CDT Insulin, No Notes: Memoria Aspart, 01-11 Roll in l Human 13:46: palms of [place] 00 hands gently; Do not shake vigorously [...] a 01-11 (Same as: l 13:46: Versed) Kush 00 MEDICATION WASTE Product Size: 2 mg Product Wasted: ___ mg Naloxone No Notes: Memoria 01-11 Same as l 13:46: Narcan Kush 00 Meperidine No Notes: Memor ia 01-11 (Same as: l 13:46: Demerol) "Use Precaution in Elderly, Seizure disorders, and Renal impairment " Promethazin No Notes: Do M emoria e 01-11 not give l 13:46: IV push. Kush 00 (Same as: Phenergan) Ondansetron No Notes: Jah jina 01-11 (Same as: l 13:46: Zofran) Kush 00 MEDICATION WASTE Product Size: 4 mg Product [...] Mem oria 01-11 MEDICATION l 13:46: WASTE Kush 00 Product Size: 0.4 mg Product Wasted: ___ mg Albuterol No Notes: Memori a 0.833 MG/ML 01-11 (Same as: l / 13:46: Duoneb) Kush Ipratropium 00 [place] 0.167 MG/ML Inhalant Solution [DuoNeb] Phenylephri No Notes: Jah jina ne 01-11 Same as: l 13:46: Yassine-Syneph [place] 00 rine Acetazolami No Notes: Jah jina de 01-11 (Same as: l 13:46: Diamox) [place] 00 ANES No Notes: Memoria albuterol 01-11 Same as: l 90 mcg/inh 13:46: Ventolin Her lawson inhalation 00 HFA WASTE: aerosol Aerosol - Return to Pharmacy celecoxib No Notes: Memori a 01-11 NSAID. l 13:46: Please [place] 00 check indication . Not for seizure. (Same As: CeleBREX) Flumazenil No Notes: Memor ia 01-11 (Same as: l 13:46: Romazicon) Ephedrine No Notes: Memori a 01-11 final l 13:46: concentrat [place] 00 ion 5 mg/mL Dexamethaso No Notes: Jah jina ne 01-11 Concentrat l 13:46: ion: [place] 00 4mg/ml Hydromorpho No Notes: Jah jina ne 01-11 Same as l 13:46: Dilaudid [place] 00 Oxycodone No Notes: Memori a 01-11 (Same as: l 13:46: Roxicodone ) Morphine No Notes: Memoria 01-11 (Same l 13:46: as:MORPhin Kush 00 e Sulfate) Metoprolol No Notes: Memor ia 01-11 (Same as: l 13:46: Lopressor) Push over 2 minutes Acetaminoph No Notes: Max Memoria en 01-11 acetaminop l 13:46: hen 4000 Kush 00 mg/day (4 gm/day). (Same as: Tylenol Extra Strength) Labetalol No Notes: Memori a 01-11 (Same as: l 13:46: Normodyne, Kush Trandate) Push over 2 minutes Give bolus over 2-3 minutes. Ibuprofen No Notes: Memori a 01-11 (Same as: l 13:46: Motrin) Kush 00 "Do Not Crush" Take with food. Hydralazine No Notes: Jah jina 01-11 (Same as: l 13:46: Apresoline ) Push over 5 minutes Calcium No 1,000 mL, Memor ia Chloride 01-11 Rate: 125 l 0.0014 13:46: ml/hr, Kush MEQ/ML / 00 Infuse Potassium over: 8 [...] INJ, ONCE, Stop date: 01/11/17 7:51:00 CDT ePHEDrine No Route: IV, Me moria (ANES) 01-11 Drug form: l 12:51: INJ, ONCE, Stop date: 01/11/17 7:51:00 CDT ePHEDrine No Route: IV, Me moria (ANES) 01-11 Drug form: l 12:51: INJ, ONCE, Stop date: 01/11/17 7:51:00 CDT ePHEDrine No Route: IV, Me moria (ANES) 01-11 Drug form: l 12:51: INJ, ONCE, Stop date: 01/11/17 7:51:00 CDT ePHEDrine No Route: IV, Me moria (ANES) 01-11 Drug form: l 12:51: INJ, ONCE, Stop date: 01/11/17 7:51:00 CDT ePHEDrine No Route: IV, Me moria (ANES) 01-11 Drug form: l 12:51: INJ, ONCE, Stop date: 01/11/17 7:51:00 CDT ePHEDrine No Route: IV, Me moria (ANES) 01-11 Drug form: l 12:51: INJ, ONCE, Stop date: 01/11/17 7:51:00 CDT ePHEDrine 20170 No Route: IV, Me moria (ANES) 01-11 Drug form: l 12:51: INJ, ONCE, Stop date: 01/11/17 7:51:00 CDT ePHEDrine 0 No Route: IV, Me moria (ANES) 01-11 Drug form: l 12:51: INJ, ONCE, Stop date: 01/11/17 7:51:00 CDT ePHEDrine No Route: IV, Me moria (ANES) 01-11 Drug form: l 12:51: INJ, ONCE, Stop date: 01/11/17 7:51:00 CDT ePHEDrine 0 No Route: IV, Me moria (ANES) 01-11 Drug form: l 12:51: INJ, ONCE, Stop date: 01/11/17 7:51:00 CDT ePHEDrine 0 No Route: IV, Me moria (ANES) 01-11 Drug form: l 12:51: INJ, ONCE, Stop date: 01/11/17 7:51:00 CDT ePHEDrine 0 No Route: IV, Me moria (ANES) 01-11 Drug form: l 12:51: INJ, ONCE, Stop date: 01/11/17 7:51:00 CDT ePHEDrine 0 No Route: IV, Me moria (ANES) 01-11 Drug form: l 12:51: INJ, ONCE, Stop date: 01/11/17 7:51:00 CDT ePHEDrine No Route: IV, Me moria (ANES) 01-11 Drug form: l 12:51: INJ, ONCE, Stop date: 01/11/17 7:51:00 CDT ePHEDrine 0 No Route: IV, Me moria (ANES) 01-11 Drug form: l 12:51: INJ, ONCE, Stop date: 01/11/17 7:51:00 CDT ePHEDrine 0 No Route: IV, Me moria (ANES) 01-11 Drug form: l 12:51: INJ, ONCE, Stop date: 01/11/17 7:51:00 CDT ePHEDrine 0 No Route: IV, Me moria (ANES) 01-11 Drug form: l 12:51: INJ, ONCE, Stop date: 01/11/17 7:51:00 CDT ePHEDrine 2017 No Route: IV, Me moria (ANES) 01-11 Drug form: l 12:51: INJ, ONCE, Stop date: 01/11/17 7:51:00 CDT ePHEDrine No Route: IV, Me moria (ANES) 01-11 Drug form: l 12:51: INJ, ONCE, Stop date: 01/11/17 7:51:00 CDT ePHEDrine No Route: IV, Me moria (ANES) 01-11 Drug form: l 12:51: INJ, ONCE, Stop date: 01/11/17 7:51:00 CDT ePHEDrine 0 No Route: IV, Me moria (ANES) 01-11 Drug form: l 12:51: INJ, ONCE, Stop date: 01/11/17 7:51:00 CDT ePHEDrine 0 No Route: IV, Me moria (ANES) 01-11 Drug form: l 12:51: INJ, ONCE, Stop date: 01/11/17 7:51:00 CDT ePHEDrine 0 No Route: IV, Me moria (ANES) 01-11 Drug form: l 12:51: INJ, ONCE, Stop date: 01/11/17 7:51:00 CDT ePHEDrine 0 No Route: IV, Me moria (ANES) 01-11 Drug form: l 12:51: INJ, ONCE, Stop date: 01/11/17 7:51:00 CDT ePHEDrine 0 No Route: IV, Me moria (ANES) 01-11 Drug form: l 12:51: INJ, ONCE, Stop date: 01/11/17 7:51:00 CDT ePHEDrine 0 No Route: IV, Me moria (ANES) 01-11 Drug form: l 12:51: INJ, ONCE, Stop date: 01/11/17 7:51:00 CDT ePHEDrine 20170 No Route: IV, Me moria (ANES) 01-11 Drug form: l 12:51: INJ, ONCE, Stop date: 01/11/17 7:51:00 CDT ePHEDrine 2017 No Route: IV, Me moria (ANES) 01-11 Drug form: l 12:51: INJ, ONCE, Stop date: 01/11/17 7:51:00 CDT ePHEDrine 2017 No Route: IV, Me moria (ANES) 01-11 Drug form: l 12:51: INJ, ONCE, Stop date: 01/11/17 7:51:00 CDT ePHEDrine No Route: IV, Me moria (ANES) 01-11 Drug form: l 12:51: INJ, ONCE, Stop date: 01/11/17 7:51:00 CDT ePHEDrine 0 No Route: IV, Me moria (ANES) 01-11 Drug form: l 12:51: INJ, ONCE, Stop date: 01/11/17 7:51:00 CDT ePHEDrine 0 No Route: IV, Me moria (ANES) 01-11 Drug form: l 12:51: INJ, ONCE, Stop date: 01/11/17 7:51:00 CDT ePHEDrine 0 No Route: IV, Me moria (ANES) 01-11 Drug form: l 12:51: INJ, ONCE, Stop date: 01/11/17 7:51:00 CDT ePHEDrine 0 No Route: IV, Me moria (ANES) 01-11 Drug form: l 12:51: INJ, ONCE, Stop date: 01/11/17 7:51:00 CDT ePHEDrine 0 No Route: IV, Me moria (ANES) 01-11 Drug form: l 12:51: INJ, ONCE, Stop date: 01/11/17 7:51:00 CDT propofol 2017-0 No Route: IV, Mem oria (ANES) 01-11 Drug form: l 12:46: INJ, ONCE, Stop date: 01/11/17 7:46:00 CDT fentaNYL 2017-0 No Route: IV, Mem oria (ANES) 01-11 Drug form: l 12:46: INJ, ONCE, Stop date: 01/11/17 7:46:00 CDT lidocaine 2017-0 No Route: IV, Me moria (ANES) 01-11 Drug form: l 12:46: INJ, ONCE, Stop date: 01/11/17 7:46:00 CDT propofol 2017-0 No Route: IV, Mem oria (ANES) 01-11 Drug form: l 12:46: INJ, ONCE, Stop date: 01/11/17 7:46:00 CDT fentaNYL 2017-0 No Route: IV, Mem oria (ANES) 01-11 Drug form: l 12:46: INJ, ONCE, Stop date: 01/11/17 7:46:00 CDT lidocaine 2017-0 No Route: IV, Me moria (ANES) 01-11 Drug form: l 12:46: INJ, ONCE, Stop date: 01/11/17 7:46:00 CDT propofol 2017-0 No Route: IV, Mem oria (ANES) 01-11 Drug form: l 12:46: INJ, ONCE, Stop date: 01/11/17 7:46:00 CDT fentaNYL 2017-0 No Route: IV, Mem oria (ANES) 01-11 Drug form: l 12:46: INJ, ONCE, Stop date: 01/11/17 7:46:00 CDT lidocaine 2017-0 No Route: IV, Me moria (ANES) 01-11 Drug form: l 12:46: INJ, ONCE, Stop date: 01/11/17 7:46:00 CDT propofol 2017-0 No Route: IV, Mem oria (ANES) 01-11 Drug form: l 12:46: INJ, ONCE, Stop date: 01/11/17 7:46:00 CDT fentaNYL 2017-0 No Route: IV, Mem oria (ANES) 01-11 Drug form: l 12:46: INJ, ONCE, Stop date: 01/11/17 7:46:00 CDT lidocaine 2017-0 No Route: IV, Me moria (ANES) 01-11 Drug form: l 12:46: INJ, ONCE, Stop date: 01/11/17 7:46:00 CDT propofol 2017-0 No Route: IV, Mem oria (ANES) 01-11 Drug form: l 12:46: INJ, ONCE, Stop date: 01/11/17 7:46:00 CDT fentaNYL 2017-0 No Route: IV, Mem oria (ANES) 01-11 Drug form: l 12:46: INJ, ONCE, Stop date: 01/11/17 7:46:00 CDT lidocaine 2017-0 No Route: IV, Me moria (ANES) 01-11 Drug form: l 12:46: INJ, ONCE, Stop date: 01/11/17 7:46:00 CDT propofol 2017-0 No Route: IV, Mem oria (ANES) 01-11 Drug form: l 12:46: INJ, ONCE, Stop date: 01/11/17 7:46:00 CDT fentaNYL 2017-0 No Route: IV, Mem oria (ANES) 01-11 Drug form: l 12:46: INJ, ONCE, Stop date: 01/11/17 7:46:00 CDT lidocaine 2017-0 No Route: IV, Me moria (ANES) 01-11 Drug form: l 12:46: INJ, ONCE, Stop date: 01/11/17 7:46:00 CDT propofol 2017-0 No Route: IV, Mem oria (ANES) 01-11 Drug form: l 12:46: INJ, ONCE, Stop date: 01/11/17 7:46:00 CDT fentaNYL 2017-0 No Route: IV, Mem oria (ANES) 01-11 Drug form: l 12:46: INJ, ONCE, Stop date: 01/11/17 7:46:00 CDT lidocaine 2017-0 No Route: IV, Me moria (ANES) 808 Drug form: l 12:46: INJ, ONCE, Stop date: 01/11/17 7:46:00 CDT propofol 2017-0 No Route: IV, Mem oria (ANES) 01-11 Drug form: l 12:46: INJ, ONCE, Stop date: 01/11/17 7:46:00 CDT fentaNYL 2017-0 No Route: IV, Mem oria (ANES) 01-11 Drug form: l 12:46: INJ, ONCE, Stop date: 01/11/17 7:46:00 CDT lidocaine 2017-0 No Route: IV, Me moria (ANES) 01-11 Drug form: l 12:46: INJ, ONCE, Stop date: 01/11/17 7:46:00 CDT propofol 2017-0 No Route: IV, Mem oria (ANES) 01-11 Drug form: l 12:46: INJ, ONCE, Stop date: 01/11/17 7:46:00 CDT fentaNYL 2017-0 No Route: IV, Mem oria (ANES) 01-11 Drug form: l 12:46: INJ, ONCE, Stop date: 01/11/17 7:46:00 CDT lidocaine 2017-0 No Route: IV, Me moria (ANES) 01-11 Drug form: l 12:46: INJ, ONCE, Stop date: 01/11/17 7:46:00 CDT propofol 2017-0 No Route: IV, Mem oria (ANES) 01-11 Drug form: l 12:46: INJ, ONCE, Stop date: 01/11/17 7:46:00 CDT fentaNYL 2017-0 No Route: IV, Mem oria (ANES) 01-11 Drug form: l 12:46: INJ, ONCE, Stop date: 01/11/17 7:46:00 CDT lidocaine 2017-0 No Route: IV, Me moria (ANES) 01-11 Drug form: l 12:46: INJ, ONCE, Stop date: 01/11/17 7:46:00 CDT propofol 2017-0 No Route: IV, Mem oria (ANES) 01-11 Drug form: l 12:46: INJ, ONCE, Stop date: 01/11/17 7:46:00 CDT fentaNYL 2017-0 No Route: IV, Mem oria (ANES) 01-11 Drug form: l 12:46: INJ, ONCE, Stop date: 01/11/17 7:46:00 CDT lidocaine 2017-0 No Route: IV, Me moria (ANES) 01-11 Drug form: l 12:46: INJ, ONCE, Stop date: 01/11/17 7:46:00 CDT propofol 2017-0 No Route: IV, Mem oria (ANES) 01-11 Drug form: l 12:46: INJ, ONCE, Stop date: 01/11/17 7:46:00 CDT fentaNYL 2017-0 No Route: IV, Mem oria (ANES) 01-11 Drug form: l 12:46: INJ, ONCE, Stop date: 01/11/17 7:46:00 CDT lidocaine 2017-0 No Route: IV, Me moria (ANES) 01-11 Drug form: l 12:46: INJ, ONCE, Stop date: 01/11/17 7:46:00 CDT propofol 2017-0 No Route: IV, Mem oria (ANES) 01-11 Drug form: l 12:46: INJ, ONCE, Stop date: 01/11/17 7:46:00 CDT fentaNYL 2017-0 No Route: IV, Mem oria (ANES) 01-11 Drug form: l 12:46: INJ, ONCE, Stop date: 01/11/17 7:46:00 CDT lidocaine 2017-0 No Route: IV, Me moria (ANES) 01-11 Drug form: l 12:46: INJ, ONCE, Stop date: 01/11/17 7:46:00 CDT propofol 2017-0 No Route: IV, Mem oria (ANES) 01-11 Drug form: l 12:46: INJ, ONCE, Stop date: 01/11/17 7:46:00 CDT fentaNYL 2017-0 No Route: IV, Mem oria (ANES) 01-11 Drug form: l 12:46: INJ, ONCE, Stop date: 01/11/17 7:46:00 CDT lidocaine 2017-0 No Route: IV, Me moria (ANES) 01-11 Drug form: l 12:46: INJ, ONCE, Stop date: 01/11/17 7:46:00 CDT propofol 2017-0 No Route: IV, Mem oria (ANES) 01-11 Drug form: l 12:46: INJ, ONCE, Stop date: 01/11/17 7:46:00 CDT fentaNYL 2017-0 No Route: IV, Mem oria (ANES) 01-11 Drug form: l 12:46: INJ, ONCE, Stop date: 01/11/17 7:46:00 CDT lidocaine 2017-0 No Route: IV, Me moria (ANES) 01-11 Drug form: l 12:46: INJ, ONCE, Stop date: 01/11/17 7:46:00 CDT propofol 2017-0 No Route: IV, Mem oria (ANES) 01-11 Drug form: l 12:46: INJ, ONCE, Stop date: 01/11/17 7:46:00 CDT fentaNYL 2017-0 No Route: IV, Mem oria (ANES) 01-11 Drug form: l 12:46: INJ, ONCE, Stop date: 01/11/17 7:46:00 CDT lidocaine 2017-0 No Route: IV, Me moria (ANES) 01-11 Drug form: l 12:46: INJ, ONCE, Stop date: 01/11/17 7:46:00 CDT propofol 2017-0 No Route: IV, Mem oria (ANES) 01-11 Drug form: l 12:46: INJ, ONCE, Stop date: 01/11/17 7:46:00 CDT fentaNYL 2017-0 No Route: IV, Mem oria (ANES) 01-11 Drug form: l 12:46: INJ, ONCE, Stop date: 01/11/17 7:46:00 CDT lidocaine 2017-0 No Route: IV, Me moria (ANES) 01-11 Drug form: l 12:46: INJ, ONCE, Stop date: 01/11/17 7:46:00 CDT propofol 2017-0 No Route: IV, Mem oria (ANES) 01-11 Drug form: l 12:46: INJ, ONCE, Stop date: 01/11/17 7:46:00 CDT fentaNYL 2017-0 No Route: IV, Mem oria (ANES) 01-11 Drug form: l 12:46: INJ, ONCE, Stop date: 01/11/17 7:46:00 CDT lidocaine 2017-0 No Route: IV, Me moria (ANES) 01-11 Drug form: l 12:46: INJ, ONCE, Stop date: 01/11/17 7:46:00 CDT propofol 2017-0 No Route: IV, Mem oria (ANES) 01-11 Drug form: l 12:46: INJ, ONCE, Stop date: 01/11/17 7:46:00 CDT fentaNYL 2017-0 No Route: IV, Mem oria (ANES) 01-11 Drug form: l 12:46: INJ, ONCE, Stop date: 01/11/17 7:46:00 CDT lidocaine 2017-0 No Route: IV, Me moria (ANES) 01-11 Drug form: l 12:46: INJ, ONCE, Stop date: 01/11/17 7:46:00 CDT propofol 2017-0 No Route: IV, Mem oria (ANES) 01-11 Drug form: l 12:46: INJ, ONCE, Stop date: 01/11/17 7:46:00 CDT fentaNYL 2017-0 No Route: IV, Mem oria (ANES) 01-11 Drug form: l 12:46: INJ, ONCE, Stop date: 01/11/17 7:46:00 CDT lidocaine 2017-0 No Route: IV, Me moria (ANES) 01-11 Drug form: l 12:46: INJ, ONCE, Stop date: 01/11/17 7:46:00 CDT propofol 2017-0 No Route: IV, Mem oria (ANES) 01-11 Drug form: l 12:46: INJ, ONCE, Stop date: 01/11/17 7:46:00 CDT fentaNYL 2017-0 No Route: IV, Mem oria (ANES) 01-11 Drug form: l 12:46: INJ, ONCE, Stop date: 01/11/17 7:46:00 CDT lidocaine 2017-0 No Route: IV, Me moria (ANES) 01-11 Drug form: l 12:46: INJ, ONCE, Stop date: 01/11/17 7:46:00 CDT propofol 2017-0 No Route: IV, Mem oria (ANES) 01-11 Drug form: l 12:46: INJ, ONCE, Stop date: 01/11/17 7:46:00 CDT fentaNYL 2017-0 No Route: IV, Mem oria (ANES) 01-11 Drug form: l 12:46: INJ, ONCE, Stop date: 01/11/17 7:46:00 CDT lidocaine 2017-0 No Route: IV, Me moria (ANES) 01-11 Drug form: l 12:46: INJ, ONCE, Stop date: 01/11/17 7:46:00 CDT propofol 2017-0 No Route: IV, Mem oria (ANES) 01-11 Drug form: l 12:46: INJ, ONCE, Stop date: 01/11/17 7:46:00 CDT fentaNYL 2017-0 No Route: IV, Mem oria (ANES) 01-11 Drug form: l 12:46: INJ, ONCE, Stop date: 01/11/17 7:46:00 CDT lidocaine 2017-0 No Route: IV, Me moria (ANES) 01-11 Drug form: l 12:46: INJ, ONCE, Stop date: 01/11/17 7:46:00 CDT propofol 2017-0 No Route: IV, Mem oria (ANES) 01-11 Drug form: l 12:46: INJ, ONCE, Stop date: 01/11/17 7:46:00 CDT fentaNYL 2017-0 No Route: IV, Mem oria (ANES) 01-11 Drug form: l 12:46: INJ, ONCE, Stop date: 01/11/17 7:46:00 CDT lidocaine 2017-0 No Route: IV, Me moria (ANES) 01-11 Drug form: l 12:46: INJ, ONCE, Stop date: 01/11/17 7:46:00 CDT propofol 2017-0 No Route: IV, Mem oria (ANES) 01-11 Drug form: l 12:46: INJ, ONCE, Stop date: 01/11/17 7:46:00 CDT fentaNYL 2017-0 No Route: IV, Mem oria (ANES) 01-11 Drug form: l 12:46: INJ, ONCE, Stop date: 01/11/17 7:46:00 CDT lidocaine 2017-0 No Route: IV, Me moria (ANES) 01-11 Drug form: l 12:46: INJ, ONCE, Stop date: 01/11/17 7:46:00 CDT propofol 2017-0 No Route: IV, Mem oria (ANES) 01-11 Drug form: l 12:46: INJ, ONCE, Stop date: 01/11/17 7:46:00 CDT fentaNYL 2017-0 No Route: IV, Mem oria (ANES) 01-11 Drug form: l 12:46: INJ, ONCE, Stop date: 01/11/17 7:46:00 CDT lidocaine 2017-0 No Route: IV, Me moria (ANES) 01-11 Drug form: l 12:46: INJ, ONCE, Stop date: 01/11/17 7:46:00 CDT propofol 2017-0 No Route: IV, Mem oria (ANES) 01-11 Drug form: l 12:46: INJ, ONCE, Stop date: 01/11/17 7:46:00 CDT fentaNYL 2017-0 No Route: IV, Mem oria (ANES) 01-11 Drug form: l 12:46: INJ, ONCE, Stop date: 01/11/17 7:46:00 CDT lidocaine 2017-0 No Route: IV, Me moria (ANES) 01-11 Drug form: l 12:46: INJ, ONCE, Stop date: 01/11/17 7:46:00 CDT propofol 2017-0 No Route: IV, Mem oria (ANES) 01-11 Drug form: l 12:46: INJ, ONCE, Stop date: 01/11/17 7:46:00 CDT fentaNYL 2017-0 No Route: IV, Mem oria (ANES) 01-11 Drug form: l 12:46: INJ, ONCE, Stop date: 01/11/17 7:46:00 CDT lidocaine 2017-0 No Route: IV, Me moria (ANES) 01-11 Drug form: l 12:46: INJ, ONCE, Stop date: 01/11/17 7:46:00 CDT propofol 2017-0 No Route: IV, Mem oria (ANES) 01-11 Drug form: l 12:46: INJ, ONCE, Stop date: 01/11/17 7:46:00 CDT fentaNYL 2017-0 No Route: IV, Mem oria (ANES) 01-11 Drug form: l 12:46: INJ, ONCE, Stop date: 01/11/17 7:46:00 CDT lidocaine 2017-0 No Route: IV, Me moria (ANES) 01-11 Drug form: l 12:46: INJ, ONCE, Stop date: 01/11/17 7:46:00 CDT propofol 2017-0 No Route: IV, Mem oria (ANES) 01-11 Drug form: l 12:46: INJ, ONCE, Stop date: 01/11/17 7:46:00 CDT fentaNYL 2017-0 No Route: IV, Mem oria (ANES) 01-11 Drug form: l 12:46: INJ, ONCE, Stop date: 01/11/17 7:46:00 CDT lidocaine 2017-0 No Route: IV, Me moria (ANES) 01-11 Drug form: l 12:46: INJ, ONCE, Stop date: 01/11/17 7:46:00 CDT propofol 2017-0 No Route: IV, Mem oria (ANES) 01-11 Drug form: l 12:46: INJ, ONCE, Stop date: 01/11/17 7:46:00 CDT fentaNYL 2017-0 No Route: IV, Mem oria (ANES) 01-11 Drug form: l 12:46: INJ, ONCE, Stop date: 01/11/17 7:46:00 CDT lidocaine 2017-0 No Route: IV, Me moria (ANES) 01-11 Drug form: l 12:46: INJ, ONCE, Stop date: 01/11/17 7:46:00 CDT propofol 2017-0 No Route: IV, Mem oria (ANES) 01-11 Drug form: l 12:46: INJ, ONCE, Stop date: 01/11/17 7:46:00 CDT fentaNYL 2017-0 No Route: IV, Mem oria (ANES) 01-11 Drug form: l 12:46: INJ, ONCE, Stop date: 01/11/17 7:46:00 CDT lidocaine 2017-0 No Route: IV, Me moria (ANES) 01-11 Drug form: l 12:46: INJ, ONCE, Stop date: 01/11/17 7:46:00 CDT propofol 2017-0 No Route: IV, Mem oria (ANES) 01-11 Drug form: l 12:46: INJ, ONCE, Stop date: 01/11/17 7:46:00 CDT fentaNYL 2017-0 No Route: IV, Mem oria (ANES) 01-11 Drug form: l 12:46: INJ, ONCE, Stop date: 01/11/17 7:46:00 CDT lidocaine 2017-0 No Route: IV, Me moria (ANES) 01-11 Drug form: l 12:46: INJ, ONCE, Stop date: 01/11/17 7:46:00 CDT propofol 2017-0 No Route: IV, Mem oria (ANES) 01-11 Drug form: l 12:46: INJ, ONCE, Stop date: 01/11/17 7:46:00 CDT fentaNYL 2017-0 No Route: IV, Mem oria (ANES) 01-11 Drug form: l 12:46: INJ, ONCE, Stop date: 01/11/17 7:46:00 CDT lidocaine 2017-0 No Route: IV, Me moria (ANES) 01-11 Drug form: l 12:46: INJ, ONCE, Stop date: 01/11/17 7:46:00 CDT propofol 2017-0 No Route: IV, Mem oria (ANES) 01-11 Drug form: l 12:46: INJ, ONCE, Stop date: 01/11/17 7:46:00 CDT fentaNYL 2017-0 No Route: IV, Mem oria (ANES) 01-11 Drug form: l 12:46: INJ, ONCE, Stop date: 01/11/17 7:46:00 CDT lidocaine 2017-0 No Route: IV, Me moria (ANES) 01-11 Drug form: l 12:46: INJ, ONCE, Stop date: 01/11/17 7:46:00 CDT propofol 2017-0 No Route: IV, Mem oria (ANES) 01-11 Drug form: l 12:46: INJ, ONCE, Stop date: 01/11/17 7:46:00 CDT fentaNYL 2017-0 No Route: IV, Mem oria (ANES) 01-11 Drug form: l 12:46: INJ, ONCE, Stop date: 01/11/17 7:46:00 CDT lidocaine 2017-0 No Route: IV, Me moria (ANES) 01-11 Drug form: l 12:46: INJ, ONCE, Stop date: 01/11/17 7:46:00 CDT phenylephri 2017-0 No Route: IV, Memoria ne (ANES) 01-11 Drug form: l 12:41: INJ, ONCE, Stop date: 01/11/17 7:41:00 CDT phenylephri 2017-0 No Route: IV, Memoria ne (ANES) 01-11 Drug form: l 12:41: INJ, ONCE, Stop date: 01/11/17 7:41:00 CDT phenylephri 2017-0 No Route: IV, Memoria ne (ANES) 01-11 Drug form: l 12:41: INJ, ONCE, Stop date: 01/11/17 7:41:00 CDT phenylephri 2017-0 No Route: IV, Memoria ne (ANES) 01-11 Drug form: l 12:41: INJ, ONCE, Stop date: 01/11/17 7:41:00 CDT phenylephri 2017-0 No Route: IV, Memoria ne (ANES) 01-11 Drug form: l 12:41: INJ, ONCE, Stop date: 01/11/17 7:41:00 CDT phenylephri 2017-0 No Route: IV, Memoria ne (ANES) 01-11 Drug form: l 12:41: INJ, ONCE, Stop date: 01/11/17 7:41:00 CDT phenylephri 2017-0 No Route: IV, Memoria ne (ANES) 01-11 Drug form: l 12:41: INJ, ONCE, Stop date: 01/11/17 7:41:00 CDT phenylephri 2017-0 No Route: IV, Memoria ne (ANES) 01-11 Drug form: l 12:41: INJ, ONCE, Stop date: 01/11/17 7:41:00 CDT phenylephri 2017-0 No Route: IV, Memoria ne (ANES) 01-11 Drug form: l 12:41: INJ, ONCE, Stop date: 01/11/17 7:41:00 CDT phenylephri 2017-0 No Route: IV, Memoria ne (ANES) 01-11 Drug form: l 12:41: INJ, ONCE, Stop date: 01/11/17 7:41:00 CDT phenylephri 2017-0 No Route: IV, Memoria ne (ANES) 01-11 Drug form: l 12:41: INJ, ONCE, Stop date: 01/11/17 7:41:00 CDT phenylephri 2017-0 No Route: IV, Memoria ne (ANES) 01-11 Drug form: l 12:41: INJ, ONCE, Stop date: 01/11/17 7:41:00 CDT phenylephri 2017-0 No Route: IV, Memoria ne (ANES) 01-11 Drug form: l 12:41: INJ, ONCE, Stop date: 01/11/17 7:41:00 CDT phenylephri 2017-0 No Route: IV, Memoria ne (ANES) 01-11 Drug form: l 12:41: INJ, ONCE, Stop date: 01/11/17 7:41:00 CDT phenylephri 2017-0 No Route: IV, Memoria ne (ANES) 01-11 Drug form: l 12:41: INJ, ONCE, Stop date: 01/11/17 7:41:00 CDT phenylephri 2017-0 No Route: IV, Memoria ne (ANES) 01-11 Drug form: l 12:41: INJ, ONCE, Stop date: 01/11/17 7:41:00 CDT phenylephri 2017-0 No Route: IV, Memoria ne (ANES) 01-11 Drug form: l 12:41: INJ, ONCE, Stop date: 01/11/17 7:41:00 CDT phenylephri 2017-0 No Route: IV, Memoria ne (ANES) 01-11 Drug form: l 12:41: INJ, ONCE, Stop date: 01/11/17 7:41:00 CDT phenylephri 2017-0 No Route: IV, Memoria ne (ANES) 01-11 Drug form: l 12:41: INJ, ONCE, Stop date: 01/11/17 7:41:00 CDT phenylephri 2017-0 No Route: IV, Memoria ne (ANES) 01-11 Drug form: l 12:41: INJ, ONCE, Stop date: 01/11/17 7:41:00 CDT phenylephri 2017-0 No Route: IV, Memoria ne (ANES) 01-11 Drug form: l 12:41: INJ, ONCE, Stop date: 01/11/17 7:41:00 CDT phenylephri 2017-0 No Route: IV, Memoria ne (ANES) 01-11 Drug form: l 12:41: INJ, ONCE, Stop date: 01/11/17 7:41:00 CDT phenylephri 2017-0 No Route: IV, Memoria ne (ANES) 01-11 Drug form: l 12:41: INJ, ONCE, Stop date: 01/11/17 7:41:00 CDT phenylephri 2017-0 No Route: IV, Memoria ne (ANES) 01-11 Drug form: l 12:41: INJ, ONCE, Stop date: 01/11/17 7:41:00 CDT phenylephri 2017-0 No Route: IV, Memoria ne (ANES) 01-11 Drug form: l 12:41: INJ, ONCE, Stop date: 01/11/17 7:41:00 CDT phenylephri 2017-0 No Route: IV, Memoria ne (ANES) 01-11 Drug form: l 12:41: INJ, ONCE, Stop date: 01/11/17 7:41:00 CDT phenylephri 2017-0 No Route: IV, Memoria ne (ANES) 01-11 Drug form: l 12:41: INJ, ONCE, Stop date: 01/11/17 7:41:00 CDT phenylephri 2017-0 No Route: IV, Memoria ne (ANES) 01-11 Drug form: l 12:41: INJ, ONCE, Stop date: 01/11/17 7:41:00 CDT phenylephri 2017-0 No Route: IV, Memoria ne (ANES) 01-11 Drug form: l 12:41: INJ, ONCE, Stop date: 01/11/17 7:41:00 CDT phenylephri 2017-0 No Route: IV, Memoria ne (ANES) 01-11 Drug form: l 12:41: INJ, ONCE, Stop date: 01/11/17 7:41:00 CDT phenylephri 2017-0 No Route: IV, Memoria ne (ANES) 01-11 Drug form: l 12:41: INJ, ONCE, Stop date: 01/11/17 7:41:00 CDT phenylephri 2017-0 No Route: IV, Memoria ne (ANES) 01-11 Drug form: l 12:41: INJ, ONCE, Stop date: 01/11/17 7:41:00 CDT phenylephri 2017-0 No Route: IV, Memoria ne (ANES) 01-11 Drug form: l 12:41: INJ, ONCE, Stop date: 01/11/17 7:41:00 CDT phenylephri 2017-0 No Route: IV, Memoria ne (ANES) 01-11 Drug form: l 12:41: INJ, ONCE, Stop date: 01/11/17 7:41:00 CDT phenylephri 2017-0 No Route: IV, [place] ne (ANES) 01-11 Drug form: l 12:41: INJ, ONCE, Stop date: 01/11/17 7:41:00 CDT phenylephri 2017-0 No Route: IV, [place] ne (ANES) 01-11 Drug form: l 12:41: INJ, ONCE, Stop date: 01/11/17 7:41:00 CDT ceFAZolin 2017-0 No Route: IV, Me moria (ANES) 01-11 Drug form: l 12:36: INJ, ONCE, Stop date: 01/11/17 7:36:00 CDT ceFAZolin 2017-0 No Route: IV, Me moria (ANES) 01-11 Drug form: l 12:36: INJ, ONCE, Stop date: 01/11/17 7:36:00 CDT ceFAZolin 2017-0 No Route: IV, Me moria (ANES) 01-11 Drug form: l 12:36: INJ, ONCE, Stop date: 01/11/17 7:36:00 CDT ceFAZolin 2017-0 No Route: IV, Me moria (ANES) 01-11 Drug form: l 12:36: INJ, ONCE, Stop date: 01/11/17 7:36:00 CDT ceFAZolin 2017-0 No Route: IV, Me moria (ANES) 01-11 Drug form: l 12:36: INJ, ONCE, Stop date: 01/11/17 7:36:00 CDT ceFAZolin 2017-0 No Route: IV, Me moria (ANES) 01-11 Drug form: l 12:36: INJ, ONCE, Stop date: 01/11/17 7:36:00 CDT ceFAZolin 2017-0 No Route: IV, Me moria (ANES) 01-11 Drug form: l 12:36: INJ, ONCE, Stop date: 01/11/17 7:36:00 CDT ceFAZolin 2017-0 No Route: IV, Me moria (ANES) 01-11 Drug form: l 12:36: INJ, ONCE, Stop date: 01/11/17 7:36:00 CDT ceFAZolin 2017-0 No Route: IV, Me moria (ANES) 01-11 Drug form: l 12:36: INJ, ONCE, Stop date: 01/11/17 7:36:00 CDT ceFAZolin 2017-0 No Route: IV, Me moria (ANES) 01-11 Drug form: l 12:36: INJ, ONCE, Stop date: 01/11/17 7:36:00 CDT ceFAZolin 2017-0 No Route: IV, Me moria (ANES) 01-11 Drug form: l 12:36: INJ, ONCE, Stop date: 01/11/17 7:36:00 CDT ceFAZolin 2017-0 No Route: IV, moria (ANES) 01-11 Drug form: l 12:36: INJ, ONCE, Stop date: 01/11/17 7:36:00 CDT ceFAZolin 2017-0 No Route: IV, moria (ANES) 01-11 Drug form: l 12:36: INJ, ONCE, Stop date: 01/11/17 7:36:00 CDT ceFAZolin 2017-0 No Route: IV, moria (ANES) 01-11 Drug form: l 12:36: INJ, ONCE, Stop date: 01/11/17 7:36:00 CDT ceFAZolin 2017-0 No Route: IV, Me moria (ANES) 01-11 Drug form: l 12:36: INJ, ONCE, Stop date: 01/11/17 7:36:00 CDT ceFAZolin 2017-0 No Route: IV, Me moria (ANES) 01-11 Drug form: l 12:36: INJ, ONCE, Stop date: 01/11/17 7:36:00 CDT ceFAZolin 2017-0 No Route: IV, Me moria (ANES) 01-11 Drug form: l 12:36: INJ, ONCE, Stop date: 01/11/17 7:36:00 CDT ceFAZolin 2017-0 No Route: IV, Me moria (ANES) 8 Drug form: l 12:36: INJ, ONCE, Stop date: 01/11/17 7:36:00 CDT ceFAZolin 2017-0 No Route: IV, Me moria (ANES) 01-11 Drug form: l 12:36: INJ, ONCE, Stop date: 01/11/17 7:36:00 CDT ceFAZolin 2017-0 No Route: IV, Me moria (ANES) 8 Drug form: l 12:36: INJ, ONCE, Stop date: 01/11/17 7:36:00 CDT ceFAZolin 2017-0 No Route: IV, Me moria (ANES) 01-11 Drug form: l 12:36: INJ, ONCE, Stop date: 01/11/17 7:36:00 CDT ceFAZolin 2017-0 No Route: IV, Me moria (ANES) 01-11 Drug form: l 12:36: INJ, ONCE, Stop date: 01/11/17 7:36:00 CDT ceFAZolin 2017-0 No Route: IV, Me moria (ANES) 01-11 Drug form: l 12:36: INJ, ONCE, Stop date: 01/11/17 7:36:00 CDT ceFAZolin 2017-0 No Route: IV, Me moria (ANES) 01-11 Drug form: l 12:36: INJ, ONCE, Stop date: 01/11/17 7:36:00 CDT ceFAZolin 2017-0 No Route: IV, Me moria (ANES) 8 Drug form: l 12:36: INJ, ONCE, Stop date: 01/11/17 7:36:00 CDT ceFAZolin 2017-0 No Route: IV, Me moria (ANES) 8 Drug form: l 12:36: INJ, ONCE, Stop date: 01/11/17 7:36:00 CDT ceFAZolin 2017-0 No Route: IV, Me moria (ANES) 8 Drug form: l 12:36: INJ, ONCE, Stop date: 01/11/17 7:36:00 CDT ceFAZolin 2017-0 No Route: IV, moria (ANES) 01-11 Drug form: l 12:36: INJ, ONCE, Stop date: 01/11/17 7:36:00 CDT ceFAZolin 2017-0 No Route: IV, moria (ANES) 01-11 Drug form: l 12:36: INJ, ONCE, Stop date: 01/11/17 7:36:00 CDT ceFAZolin 2017-0 No Route: IV, moria (ANES) 01-11 Drug form: l 12:36: INJ, ONCE, Stop date: 01/11/17 7:36:00 CDT ceFAZolin 2017-0 No Route: IV, moria (ANES) 01-11 Drug form: l 12:36: INJ, ONCE, Stop date: 01/11/17 7:36:00 CDT ceFAZolin 2017-0 No Route: IV, moria (ANES) 01-11 Drug form: l 12:36: INJ, ONCE, Stop date: 01/11/17 7:36:00 CDT ceFAZolin 2017-0 No Route: IV, moria (ANES) 01-11 Drug form: l 12:36: INJ, ONCE, Stop date: 01/11/17 7:36:00 CDT ceFAZolin 2017-0 No Route: IV, moria (ANES) 01-11 Drug form: l 12:36: INJ, ONCE, Stop date: 01/11/17 7:36:00 CDT ceFAZolin 2017-0 No Route: IV, moria (ANES) 01-11 Drug form: l 12:36: INJ, ONCE, Stop date: 01/11/17 7:36:00 CDT ceFAZolin 2017-0 No Route: IV, moria (ANES) 01-11 Drug form: l 12:36: INJ, ONCE, Stop date: 01/11/17 7:36:00 CDT acetaminoph 2017-0 No Route: IV, Memoria en (ANES) 01-11 Drug form: l (ANES) 12:29: INJ, Start Guillermina nn date: 01/11/17 7:29:00 CDT, Stop date: 01/11/17 8:29:00 CDT acetaminoph 20170 No Route: IV, Memoria en (ANES) 8 Drug form: l (ANES) 12:29: INJ, Start Guillermina date: 01/11/17 7:29:00 CDT, Stop date: 01/11/17 8:29:00 CDT acetaminoph 20170 No Route: IV, Memoria en (ANES) 8 Drug form: l (ANES) 12:29: INJ, Start Guillermina date: 01/11/17 7:29:00 CDT, Stop date: 01/11/17 8:29:00 CDT acetaminoph No Route: IV, Memoria en (ANES) 8 Drug form: l (ANES) 12:29: INJ, Start Guillermina date: 01/11/17 7:29:00 CDT, Stop date: 01/11/17 8:29:00 CDT acetaminoph 0 No Route: IV, Memoria en (ANES) 8 Drug form: l (ANES) 12:29: INJ, Start Guillermina date: 01/11/17 7:29:00 CDT, Stop date: 01/11/17 8:29:00 CDT acetaminoph 0 No Route: IV, Memoria en (ANES) 8 Drug form: l (ANES) 12:29: INJ, Start Guillermina date: 01/11/17 7:29:00 CDT, Stop date: 01/11/17 8:29:00 CDT acetaminoph 0 No Route: IV, Memoria en (ANES) 8 Drug form: l (ANES) 12:29: INJ, Start Guillermina date: 01/11/17 7:29:00 CDT, Stop date: 01/11/17 8:29:00 CDT acetaminoph 2017 No Route: IV, Memoria en (ANES) 8 Drug form: l (ANES) 12:29: INJ, Start Guillermina date: 01/11/17 7:29:00 CDT, Stop date: 01/11/17 8:29:00 CDT acetaminoph 2017- No Route: IV, Memoria en (ANES) 8-08 Drug form: l (ANES) 12:29: INJ, Start Guillermina date: 01/11/17 7:29:00 CDT, Stop date: 01/11/17 8:29:00 CDT acetaminoph No Route: IV, Memoria en (ANES) 8-08 Drug form: l (ANES) 12:29: INJ, Start Guillermina date: 01/11/17 7:29:00 CDT, Stop date: 01/11/17 8:29:00 CDT acetaminoph 2016- No Route: IV, Memoria en (ANES) 8-08 Drug form: l (ANES) 12:29: INJ, Start Guillermina date: 01/11/17 7:29:00 CDT, Stop date: 01/11/17 8:29:00 CDT acetaminoph 20170 No Route: IV, Memoria en (ANES) 8-08 Drug form: l (ANES) 12:29: INJ, Start [place] date: 01/11/17 7:29:00 CDT, Stop date: 01/11/17 8:29:00 CDT acetaminoph 2016-0 No Route: IV, Memoria en (ANES) 8-08 Drug form: l (ANES) 12:29: INJ, Start [place] date: 01/11/17 7:29:00 CDT, Stop date: 01/11/17 8:29:00 CDT acetaminoph 0 No Route: IV, Memoria en (ANES) 8-08 Drug form: l (ANES) 12:29: INJ, Start [place] date: 01/11/17 7:29:00 CDT, Stop date: 01/11/17 8:29:00 CDT acetaminoph 2017-0 No Route: IV, Memoria en (ANES) 8-08 Drug form: l (ANES) 12:29: INJ, Start [place] date: 01/11/17 7:29:00 CDT, Stop date: 01/11/17 8:29:00 CDT acetaminoph 20170 No Route: IV, Memoria en (ANES) 8-08 Drug form: l (ANES) 12:29: INJ, Start [place]illerm[place] nn date: 01/11/17 7:29:00 CDT, Stop date: 01/11/17 8:29:00 CDT acetaminoph No Route: IV, Memoria en (ANES) 8- Drug form: l (ANES) 12:29: INJ, Start Guillermina nn date: 01/11/17 7:29:00 CDT, Stop date: 01/11/17 8:29:00 CDT acetaminoph No Route: IV, Memoria en (ANES) 8 Drug form: l (ANES) 12:29: INJ, Start [place]ill[place]ina date: 01/11/17 7:29:00 CDT, Stop date: 01/11/17 8:29:00 CDT acetaminoph No Route: IV, Memoria en (ANES) 8 Drug form: l (ANES) 12:29: INJ, Start [place]illermina date: 01/11/17 7:29:00 CDT, Stop date: 01/11/17 8:29:00 CDT acetaminoph 2017 No Route: IV, Memoria en (ANES) 8 Drug form: l (ANES) 12:29: INJ, Start [place]illermina date: 01/11/17 7:29:00 CDT, Stop date: 01/11/17 8:29:00 CDT acetaminoph 0 No Route: IV, Memoria en (ANES) 8- Drug form: l (ANES) 12:29: INJ, Start [place]ill[place]ina date: 01/11/17 7:29:00 CDT, Stop date: 01/11/17 8:29:00 CDT acetaminoph 0 No Route: IV, Memoria en (ANES) 8-08 Drug form: l (ANES) 12:29: INJ, Start [place]ill[place] date: 01/11/17 7:29:00 CDT, Stop date: 01/11/17 8:29:00 CDT acetaminoph 20170 No Route: IV, Memoria en (ANES) 8- Drug form: l (ANES) 12:29: INJ, Start [place] nn date: 01/11/17 7:29:00 CDT, Stop date: 01/11/17 8:29:00 CDT acetaminoph No Route: IV, Memoria en (ANES) 8 Drug form: l (ANES) 12:29: INJ, Start Guillermina nn date: 01/11/17 7:29:00 CDT, Stop date: 01/11/17 8:29:00 CDT acetaminoph No Route: IV, Memoria en (ANES) 8 Drug form: l (ANES) 12:29: INJ, Start Guillermina nn date: 01/11/17 7:29:00 CDT, Stop date: 01/11/17 8:29:00 CDT acetaminoph No Route: IV, Memoria en (ANES) 8 Drug form: l (ANES) 12:29: INJ, Start Guillerm[place] nn date: 01/11/17 7:29:00 CDT, Stop date: 01/11/17 8:29:00 CDT acetaminoph No Route: IV, Memoria en (ANES) 8 Drug form: l (ANES) 12:29: INJ, Start Guillermina nn date: 01/11/17 7:29:00 CDT, Stop date: 01/11/17 8:29:00 CDT acetaminoph No Route: IV, Memoria en (ANES) 8 Drug form: l (ANES) 12:29: INJ, Start Guillermina nn date: 01/11/17 7:29:00 CDT, Stop date: 01/11/17 8:29:00 CDT acetaminoph No Route: IV, Memoria en (ANES) 8 Drug form: l (ANES) 12:29: INJ, Start [place]illerm[place] nn date: 01/11/17 7:29:00 CDT, Stop date: 01/11/17 8:29:00 CDT acetaminoph 0 No Route: IV, Memoria en (ANES) 01-11 Drug form: l (ANES) 12:29: INJ, Start Guillermina nn date: 01/11/17 7:29:00 CDT, Stop date: 01/11/17 8:29:00 CDT acetaminoph No Route: IV, Memoria en (ANES) 01-11 Drug form: l (ANES) 12:29: INJ, Start [place] nn date: 01/11/17 7:29:00 CDT, Stop date: 01/11/17 8:29:00 CDT acetaminoph No Route: IV, Memoria en (ANES) 01-11 Drug form: l (ANES) 12:29: INJ, Start [place] nn date: 01/11/17 7:29:00 CDT, Stop date: 01/11/17 8:29:00 CDT acetaminoph No Route: IV, Memoria en (ANES) 01-11 Drug form: l (ANES) 12:29: INJ, Start [place] date: 01/11/17 7:29:00 CDT, Stop date: 01/11/17 8:29:00 CDT acetaminoph No Route: IV, Memoria en (ANES) 01-11 Drug form: l (ANES) 12:29: INJ, Start [place] nn date: 01/11/17 7:29:00 CDT, Stop date: 01/11/17 8:29:00 CDT acetaminoph No Route: IV, Memoria en (ANES) 01-11 Drug form: l (ANES) 12:29: INJ, Start [place] nn date: 01/11/17 7:29:00 CDT, Stop date: 01/11/17 8:29:00 CDT acetaminoph No Route: IV, Memoria en (ANES) 01-11 Drug form: l (ANES) 12:29: INJ, Start [place]illermina nn date: 01/11/17 7:29:00 CDT, Stop date: 01/11/17 8:29:00 CDT tranexamic 2017-0 No Route: IV, M emoria acid (ANES) 8-08 Drug form: l (ANES) 12:15: INJ, Start Guillermina date: 01/11/17 7:15:00 CDT, Stop date: 01/11/17 8:15:00 CDT tranexamic 2017-0 No Route: IV, M emoria acid (ANES) 8- Drug form: l (ANES) 12:15: INJ, Start Guillermina date: 01/11/17 7:15:00 CDT, Stop date: 01/11/17 8:15:00 CDT tranexamic No Route: IV, M emoria acid (ANES) 8- Drug form: l (ANES) 12:15: INJ, Start Guillermina date: 01/11/17 7:15:00 CDT, Stop date: 01/11/17 8:15:00 CDT tranexamic 20170 No Route: IV, M emoria acid (ANES) 8- Drug form: l (ANES) 12:15: INJ, Start Guillermina date: 01/11/17 7:15:00 CDT, Stop date: 01/11/17 8:15:00 CDT tranexamic 20170 No Route: IV, M emoria acid (ANES) 8- Drug form: l (ANES) 12:15: INJ, Start Guillermina date: 01/11/17 7:15:00 CDT, Stop date: 01/11/17 8:15:00 CDT tranexamic 2017-0 No Route: IV, M emoria acid (ANES) 8- Drug form: l (ANES) 12:15: INJ, Start Guillermina date: 01/11/17 7:15:00 CDT, Stop date: 01/11/17 8:15:00 CDT tranexamic 2016-0 No Route: IV, M emoria acid (ANES) 8-08 Drug form: l (ANES) 12:15: INJ, Start Guillermina date: 01/11/17 7:15:00 CDT, Stop date: 01/11/17 8:15:00 CDT tranexamic 2017-0 No Route: IV, M emoria acid (ANES) 8-08 Drug form: l (ANES) 12:15: INJ, Start Guillermina date: 01/11/17 7:15:00 CDT, Stop date: 01/11/17 8:15:00 CDT tranexamic 2017-0 No Route: IV, M emoria acid (ANES) 8-08 Drug form: l (ANES) 12:15: INJ, Start Guillermina date: 01/11/17 7:15:00 CDT, Stop date: 01/11/17 8:15:00 CDT tranexamic 2017 No Route: IV, M emoria acid (ANES) 8-08 Drug form: l (ANES) 12:15: INJ, Start Guillermina date: 01/11/17 7:15:00 CDT, Stop date: 01/11/17 8:15:00 CDT tranexamic 2017 No Route: IV, M emoria acid (ANES) 8-08 Drug form: l (ANES) 12:15: INJ, Start Guillermina date: 01/11/17 7:15:00 CDT, Stop date: 01/11/17 8:15:00 CDT tranexamic 20170 No Route: IV, M emoria acid (ANES) 8-08 Drug form: l (ANES) 12:15: INJ, Start Guillermina date: 01/11/17 7:15:00 CDT, Stop date: 01/11/17 8:15:00 CDT tranexamic 0 No Route: IV, M emoria acid (ANES) 8-08 Drug form: l (ANES) 12:15: INJ, Start Gu[place]erm[place] date: 01/11/17 7:15:00 CDT, Stop date: 01/11/17 8:15:00 CDT tranexamic 20170 No Route: IV, M emoria acid (ANES) 8-08 Drug form: l (ANES) 12:15: INJ, Start Guillermina date: 01/11/17 7:15:00 CDT, Stop date: 01/11/17 8:15:00 CDT tranexamic 2017-0 No Route: IV, M emoria acid (ANES) 8-08 Drug form: l (ANES) 12:15: INJ, Start Guillermina date: 01/11/17 7:15:00 CDT, Stop date: 01/11/17 8:15:00 CDT tranexamic No Route: IV, M emoria acid (ANES) 8-08 Drug form: l (ANES) 12:15: INJ, Start Guillermina date: 01/11/17 7:15:00 CDT, Stop date: 01/11/17 8:15:00 CDT tranexamic No Route: IV, M emoria acid (ANES) 8-08 Drug form: l (ANES) 12:15: INJ, Start Guillermina date: 01/11/17 7:15:00 CDT, Stop date: 01/11/17 8:15:00 CDT tranexamic No Route: IV, M emoria acid (ANES) 8-08 Drug form: l (ANES) 12:15: INJ, Start Guillermina date: 01/11/17 7:15:00 CDT, Stop date: 01/11/17 8:15:00 CDT tranexamic 0 No Route: IV, M emoria acid (ANES) 8-08 Drug form: l (ANES) 12:15: INJ, Start Guillermina date: 01/11/17 7:15:00 CDT, Stop date: 01/11/17 8:15:00 CDT tranexamic 0 No Route: IV, M emoria acid (ANES) 8-08 Drug form: l (ANES) 12:15: INJ, Start Guillermina date: 01/11/17 7:15:00 CDT, Stop date: 01/11/17 8:15:00 CDT tranexamic 2016-0 No Route: IV, M emoria acid (ANES) 8-08 Drug form: l (ANES) 12:15: INJ, Start Guillermina date: 01/11/17 7:15:00 CDT, Stop date: 01/11/17 8:15:00 CDT tranexamic 2017-0 No Route: IV, M emoria acid (ANES) 8-08 Drug form: l (ANES) 12:15: INJ, Start Guillermina date: 01/11/17 7:15:00 CDT, Stop date: 01/11/17 8:15:00 CDT tranexamic 2017-0 No Route: IV, M emoria acid (ANES) 8-08 Drug form: l (ANES) 12:15: INJ, Start Guillermina date: 01/11/17 7:15:00 CDT, Stop date: 01/11/17 8:15:00 CDT tranexamic 2017-0 No Route: IV, M emoria acid (ANES) 8-08 Drug form: l (ANES) 12:15: INJ, Start Guillermina date: 01/11/17 7:15:00 CDT, Stop date: 01/11/17 8:15:00 CDT tranexamic 20170 No Route: IV, M emoria acid (ANES) 8-08 Drug form: l (ANES) 12:15: INJ, Start Guillermina date: 01/11/17 7:15:00 CDT, Stop date: 01/11/17 8:15:00 CDT tranexamic 2017-0 No Route: IV, M emoria acid (ANES) 8-08 Drug form: l (ANES) 12:15: INJ, Start Guillermina date: 01/11/17 7:15:00 CDT, Stop date: 01/11/17 8:15:00 CDT tranexamic 2017-0 No Route: IV, M emoria acid (ANES) 8-08 Drug form: l (ANES) 12:15: INJ, Start [place]illermina date: 01/11/17 7:15:00 CDT, Stop date: 01/11/17 8:15:00 CDT tranexamic 2017-0 No Route: IV, M emoria acid (ANES) 8-08 Drug form: l (ANES) 12:15: INJ, Start Guillermina date: 01/11/17 7:15:00 CDT, Stop date: 01/11/17 8:15:00 CDT tranexamic 2017-0 No Route: IV, M emoria acid (ANES) 8-08 Drug form: l (ANES) 12:15: INJ, Start [place]erm[place] date: 01/11/17 7:15:00 CDT, Stop date: 01/11/17 8:15:00 CDT tranexamic 2016-0 No Route: IV, M emoria acid (ANES) 8-08 Drug form: l (ANES) 12:15: INJ, Start [place] date: 01/11/17 7:15:00 CDT, Stop date: 01/11/17 8:15:00 CDT tranexamic 0 No Route: IV, M emoria acid (ANES) 8-08 Drug form: l (ANES) 12:15: INJ, Start [place] date: 01/11/17 7:15:00 CDT, Stop date: 01/11/17 8:15:00 CDT tranexamic [id number] No Route: IV, M emoria acid (ANES) 8-08 Drug form: l (ANES) 12:15: INJ, Start [place] date: 01/11/17 7:15:00 CDT, Stop date: 01/11/17 8:15:00 CDT tranexamic 2016-0 No Route: IV, M emoria acid (ANES) 8-08 Drug form: l (ANES) 12:15: INJ, Start [place] date: 01/11/17 7:15:00 CDT, Stop date: 01/11/17 8:15:00 CDT tranexamic 2017-0 No Route: IV, M emoria acid (ANES) 8-08 Drug form: l (ANES) 12:15: INJ, Start [place] date: 01/11/17 7:15:00 CDT, Stop date: 01/11/17 8:15:00 CDT tranexamic 2016-0 No Route: IV, M emoria acid (ANES) 8-08 Drug form: l (ANES) 12:15: INJ, Start [place] date: 01/11/17 7:15:00 CDT, Stop date: 01/11/17 8:15:00 CDT tranexamic No Route: IV, M emoria acid (ANES) 8-08 Drug form: l (ANES) 12:15: INJ, Start Guillermina nn 00 date: 01/11/17 7:15:00 CDT, Stop date: 01/11/17 8:15:00 CDT LR 1000 mL No Route: IV, M emoria INJ (ANES) 8-08 Total l 12:01: Volume: [place] 00 1,000, Start date: 01/11/17 7:01:00 CDT, Stop date: 01/11/17 8:01:00 CDT LR 1000 mL No Route: IV, M emoria INJ (ANES) 8-08 Total l 12:01: Volume: [place] 00 1,000, Start date: 01/11/17 7:01:00 CDT, Stop date: 01/11/17 8:01:00 CDT LR 1000 mL No Route: IV, M emoria INJ (ANES) 8-08 Total l 12:01: Volume: [place] 00 1,000, Start date: 01/11/17 7:01:00 CDT, Stop date: 01/11/17 8:01:00 CDT LR 1000 mL No Route: IV, M emoria INJ (ANES) 8-08 Total l 12:01: Volume: [place] 00 1,000, Start date: 01/11/17 7:01:00 CDT, Stop date: 01/11/17 8:01:00 CDT LR 1000 mL No Route: IV, M emoria INJ (ANES) 8-08 Total l 12:01: Volume: [place] 00 1,000, Start date: 01/11/17 7:01:00 CDT, Stop date: 01/11/17 8:01:00 CDT LR 1000 mL No Route: IV, M emoria INJ (ANES) 8-08 Total l 12:01: Volume: [place] 00 1,000, Start date: 01/11/17 7:01:00 CDT, Stop date: 01/11/17 8:01:00 CDT LR 1000 mL No Route: IV, M emoria INJ (ANES) 8-08 Total l 12:01: Volume: [place] 00 1,000, Start date: 01/11/17 7:01:00 CDT, Stop date: 01/11/17 8:01:00 CDT LR 1000 mL No Route: IV, M emoria INJ (ANES) 8-08 Total l 12:01: Volume: [place] 00 1,000, Start date: 01/11/17 7:01:00 CDT, Stop date: 01/11/17 8:01:00 CDT LR 1000 mL No Route: IV, M emoria INJ (ANES) 8-08 Total l 12:01: Volume: [place] 00 1,000, Start date: 01/11/17 7:01:00 CDT, Stop date: 01/11/17 8:01:00 CDT LR 1000 mL No Route: IV, M emoria INJ (ANES) 8-08 Total l 12:01: Volume: [place] 00 1,000, Start date: 01/11/17 7:01:00 CDT, Stop date: 01/11/17 8:01:00 CDT LR 1000 mL No Route: IV, M emoria INJ (ANES) 8-08 Total l 12:01: Volume: [place] 00 1,000, Start date: 01/11/17 7:01:00 CDT, Stop date: 01/11/17 8:01:00 CDT LR 1000 mL No Route: IV, M emoria INJ (ANES) 8-08 Total l 12:01: Volume: [place] 00 1,000, Start date: 01/11/17 7:01:00 CDT, Stop date: 01/11/17 8:01:00 CDT LR 1000 mL No Route: IV, M emoria INJ (ANES) 8-08 Total l 12:01: Volume: [place] 00 1,000, Start date: 01/11/17 7:01:00 CDT, Stop date: 01/11/17 8:01:00 CDT LR 1000 mL No Route: IV, M emoria INJ (ANES) 8-08 Total l 12:01: Volume: [place] 00 1,000, Start date: 01/11/17 7:01:00 CDT, Stop date: 01/11/17 8:01:00 CDT LR 1000 mL No Route: IV, M emoria INJ (ANES) 8-08 Total l 12:01: Volume: [place] 00 1,000, Start date: 01/11/17 7:01:00 CDT, Stop date: 01/11/17 8:01:00 CDT LR 1000 mL No Route: IV, M emoria INJ (ANES) 8-08 Total l 12:01: Volume: [place] 00 1,000, Start date: 01/11/17 7:01:00 CDT, Stop date: 01/11/17 8:01:00 CDT LR 1000 mL No Route: IV, M emoria INJ (ANES) 8-08 Total l 12:01: Volume: [place] 00 1,000, Start date: 01/11/17 7:01:00 CDT, Stop date: 01/11/17 8:01:00 CDT LR 1000 mL No Route: IV, M emoria INJ (ANES) 8-08 Total l 12:01: Volume: [place] 00 1,000, Start date: 01/11/17 7:01:00 CDT, Stop date: 01/11/17 8:01:00 CDT LR 1000 mL No Route: IV, M emoria INJ (ANES) 8-08 Total l 12:01: Volume: [place] 00 1,000, Start date: 01/11/17 7:01:00 CDT, Stop date: 01/11/17 8:01:00 CDT LR 1000 mL No Route: IV, M emoria INJ (ANES) 8-08 Total l 12:01: Volume: [place] 00 1,000, Start date: 01/11/17 7:01:00 CDT, Stop date: 01/11/17 8:01:00 CDT LR 1000 mL No Route: IV, M emoria INJ (ANES) 8-08 Total l 12:01: Volume: [place] 00 1,000, Start date: 01/11/17 7:01:00 CDT, Stop date: 01/11/17 8:01:00 CDT LR 1000 mL No Route: IV, M emoria INJ (ANES) 8-08 Total l 12:01: Volume: [place] 00 1,000, Start date: 01/11/17 7:01:00 CDT, Stop date: 01/11/17 8:01:00 CDT LR 1000 mL No Route: IV, M emoria INJ (ANES) 8-08 Total l 12:01: Volume: [place] 00 1,000, Start date: 01/11/17 7:01:00 CDT, Stop date: 01/11/17 8:01:00 CDT LR 1000 mL No Route: IV, M emoria INJ (ANES) 8-08 Total l 12:01: Volume: [place] 00 1,000, Start date: 01/11/17 7:01:00 CDT, Stop date: 01/11/17 8:01:00 CDT LR 1000 mL No Route: IV, M emoria INJ (ANES) 8-08 Total l 12:01: Volume: [place] 00 1,000, Start date: 01/11/17 7:01:00 CDT, Stop date: 01/11/17 8:01:00 CDT LR 1000 mL No Route: IV, M emoria INJ (ANES) 8-08 Total l 12:01: Volume: Kush 00 1,000, Start date: 01/11/17 7:01:00 CDT, Stop date: 01/11/17 8:01:00 CDT LR 1000 mL No Route: IV, M emoria INJ (ANES) 8-08 Total l 12:01: Volume: Kush 00 1,000, Start date: 01/11/17 7:01:00 CDT, Stop date: 01/11/17 8:01:00 CDT LR 1000 mL No Route: IV, M emoria INJ (ANES) 8-08 Total l 12:01: Volume: [place] 00 1,000, Start date: 01/11/17 7:01:00 CDT, Stop date: 01/11/17 8:01:00 CDT LR 1000 mL No Route: IV, M emoria INJ (ANES) 8-08 Total l 12:01: Volume: [place] 00 1,000, Start date: 01/11/17 7:01:00 CDT, Stop date: 01/11/17 8:01:00 CDT LR 1000 mL No Route: IV, M emoria INJ (ANES) 8-08 Total l 12:01: Volume: Kush 00 1,000, Start date: 01/11/17 7:01:00 CDT, Stop date: 01/11/17 8:01:00 CDT LR 1000 mL No Route: IV, M emoria INJ (ANES) 8-08 Total l 12:01: Volume: Kush 00 1,000, Start date: 01/11/17 7:01:00 CDT, Stop date: 01/11/17 8:01:00 CDT LR 1000 mL No Route: IV, M emoria INJ (ANES) 8-08 Total l 12:01: Volume: [place] 00 1,000, Start date: 01/11/17 7:01:00 CDT, Stop date: 01/11/17 8:01:00 CDT LR 1000 mL No Route: IV, M emoria INJ (ANES) 8-08 Total l 12:01: Volume: [place] 00 1,000, Start date: 01/11/17 7:01:00 CDT, Stop date: 01/11/17 8:01:00 CDT LR 1000 mL No Route: IV, M emoria INJ (ANES) 8-08 Total l 12:01: Volume: [place] 00 1,000, Start date: 01/11/17 7:01:00 CDT, Stop date: 01/11/17 8:01:00 CDT LR 1000 mL No Route: IV, M emoria INJ (ANES) 8-08 Total l 12:01: Volume: [place] 00 1,000, Start date: 01/11/17 7:01:00 CDT, Stop date: 01/11/17 8:01:00 CDT LR 1000 mL No Route: IV, M emoria INJ (ANES) 8- Total l 12:01: Volume: Kush 00 1,000, Start date: 01/11/17 7:01:00 CDT, Stop date: 01/11/17 8:01:00 CDT ceFAZolin No Notes: Memori a 8- Same as: l 11:00: Ancef Kush 00 Neurontin No Notes: Memori a 8- (Same as: l 11:00: Neurontin) [place] polymyxin B No Notes: Jah jina sulfate + 01-11 (Same as: l sodium 11:00: Polymyxin Jaime n chloride 00 B Sulfate) 0.9% 250 mL INJ (for IV set) 250 mL Lactated No 1,000 mL, Jah jina Ringers 01-11 Rate: 100 l 1,000 mL 11:00: ml/hr, [place] 00 Infuse over: 10 hr, Route: IV, Dosing [...] jina 01-11 (Same As: l 11:00: Cyklokapro [place] 00 n) CeleBREX No Notes: Memoria 8-08 NSAID. l 11:00: Please [place] 00 check indication . Not for seizure. (Same As: CeleBREX) ceFAZolin No Notes: Memori a 8-08 Same as: l 11:00: Ancef Kush 00 Neurontin No Notes: Memori a 8-08 (Same as: l 11:00: Neurontin) [place] 00 polymyxin B No Notes: Jah jina sulfate + 8-08 (Same as: l sodium 11:00: Polymyxin Jaime n chloride 00 B Sulfate) 0.9% 250 mL INJ (for IV set) 250 mL Lactated 2017- No 1,000 mL, Jah jina Ringers 01-11 Rate: 100 l 1,000 mL 11:00: ml/hr, Kush 00 Infuse over: 10 hr, Route: IV, Dosing Weight 109.091 kg, Total Volume: 1,000, Start date: 01/11/17 6:00:00 CDT, Duration: 30 day, Stop date: 02/10/17 5:59:00 CDT vancomycin No 2000 mg: Me moria + sodium 8- infuse l chloride 11:00: over 2.5 Guillermina nn 0.9% 500 mL 00 hours INJ (for IV MEDICATION set) 500 mL WASTE Product Size: 1000 mg Product Wasted: ___ mg Cyklokapron 2016- No Notes: Jah jina 01-11 (Same As: l 11:00: Cyklokapro [place] n) CeleBREX No Notes: Memoria - NSAID. l 11:00: Please [place] check indication . Not for seizure. (Same As: CeleBREX) ceFAZolin No Notes: Memori a 01-11 Same as: l 11:00: Ancef Kush 00 Neurontin 2016- No Notes: Memori a 01-11 (Same as: l 11:00: Neurontin) [place] 00 polymyxin B No Notes: Jah jina sulfate + 01-11 (Same as: l sodium 11:00: Polymyxin Jaime n chloride 00 B Sulfate) 0.9% 250 mL INJ (for IV set) 250 mL Lactated 2017- No 1,000 mL, Jah jina Ringers 01-11 Rate: 100 l 1,000 mL 11:00: ml/hr, [place] 00 Infuse over: 10 hr, Route: IV, Dosing Weight 109.091 kg, Total Volume: 1,000, Start date: 01/11/17 6:00:00 CDT, Duration: 30 day, Stop date: 02/10/17 5:59:00 CDT vancomycin 2016- No 2000 mg: Me moria + sodium 8-08 infuse l chloride 11:00: over 2.5 Guillermina nn 0.9% 500 mL 00 hours INJ (for IV MEDICATION set) 500 mL WASTE Product Size: 1000 mg Product Wasted: ___ mg Cyklokapron 2016- No Notes: Jah jina 01-11 (Same As: l 11:00: Cyklokapro [place] 00 n) CeleBREX No Notes: Memoria 01-11 NSAID. l 11:00: Please Kush 00 check indication . Not for seizure. (Same As: CeleBREX) ceFAZolin No Notes: Memori a 01-11 Same as: l 11:00: Ancef [place] 00 Neurontin 2016-0 No Notes: Memori a 01-11 (Same as: l 11:00: Neurontin) [place] 00 polymyxin B No Notes: Jah jina sulfate + 01-11 (Same as: l sodium 11:00: Polymyxin Jaime n chloride 00 B Sulfate) 0.9% 250 mL INJ (for IV set) 250 mL Lactated No 1,000 mL, Jah jina Ringers 01-11 Rate: 100 l 1,000 mL 11:00: ml/hr, [place] 00 Infuse over: 10 hr, Route: IV, Dosing [...] 1000 mg Product Wasted: ___ mg Cyklokapron 2016- No Notes: Jah jina 01-11 (Same As: l 11:00: Cyklokapro Kush 00 n) CeleBREX 0 No Notes: Memoria 01-11 NSAID. l 11:00: Please Kush 00 check indication . Not for seizure. (Same As: CeleBREX) ceFAZolin No Notes: Memori a 01-11 Same as: l 11:00: Ancef Kush 00 Neurontin 2016-0 No Notes: Memori a 8-08 (Same as: l 11:00: Neurontin) Kush polymyxin B No Notes: Jah jina sulfate + 8-08 (Same as: l sodium 11:00: Polymyxin Jaime n chloride 00 B Sulfate) 0.9% 250 mL INJ (for IV set) 250 mL Lactated 2016- No 1,000 mL, Jah jina Ringers 01-11 Rate: 100 l 1,000 mL 11:00: ml/hr, Kush 00 Infuse over: 10 hr, Route: IV, Dosing [...] jina 01-11 (Same As: l 11:00: Cyklokapro [place] 00 n) CeleBREX No Notes: Memoria 01-11 NSAID. l 11:00: Please Kush 00 check indication . Not for seizure. (Same As: CeleBREX) ceFAZolin No Notes: Memori a 8-08 Same as: l 11:00: Ancef Kush 00 Neurontin 0 No Notes: Memori a 8- (Same as: l 11:00: Neurontin) Kush 00 polymyxin B No Notes: Jah jina sulfate + 8-08 (Same as: l sodium 11:00: Polymyxin Jaime n chloride 00 B Sulfate) 0.9% 250 mL INJ (for IV set) 250 mL Lactated 0 No 1,000 mL, Jah jina Ringers 08 Rate: 100 l 1,000 mL 11:00: ml/hr, [place] 00 Infuse over: 10 hr, Route: IV, Dosing Weight 109.091 kg, Total Volume: 1,000, Start date: 01/11/17 6:00:00 CDT, Duration: 30 day, Stop date: 02/10/17 5:59:00 CDT vancomycin 2016- No 2000 mg: Me moria + sodium 8-08 infuse l chloride 11:00: over 2.5 Guillermina nn 0.9% 500 mL 00 hours INJ (for IV MEDICATION set) 500 mL WASTE Product Size: 1000 mg Product Wasted: ___ mg Cyklokapron 2016- No Notes: Jah jina 8-08 (Same As: l 11:00: Cyklokapro [place] 00 n) CeleBREX No Notes: Memoria 8-08 NSAID. l 11:00: Please [place] 00 check indication . Not for seizure. (Same As: CeleBREX) ceFAZolin No Notes: Memori a 8- Same as: l 11:00: Ancef [place] 00 Neurontin 2016- No Notes: Memori a 01-11 (Same as: l 11:00: Neurontin) [place] 00 polymyxin B No Notes: Jah jina sulfate + 01-11 (Same as: l sodium 11:00: Polymyxin Jaime n chloride 00 B Sulfate) 0.9% 250 mL INJ (for IV set) 250 mL Lactated 2016- No 1,000 mL, Jah jina Ringers 01-11 Rate: 100 l 1,000 mL 11:00: ml/hr, Kush 00 Infuse over: 10 hr, Route: IV, Dosing Weight 109.091 kg, Total Volume: 1,000, Start date: 01/11/17 6:00:00 CDT, Duration: 30 day, Stop date: 02/10/17 5:59:00 CDT vancomycin 2016- No 2001 mg: Me moria + sodium 8-08 infuse l chloride 11:00: over 2.5 Guillermina nn 0.9% 500 mL 00 hours INJ (for IV MEDICATION set) 500 mL WASTE Product Size: 1000 mg Product Wasted: ___ mg Cyklokapron 2016-0 No Notes: Jah jina 8-08 (Same As: l 11:00: Cyklokapro [place] 00 n) CeleBREX No Notes: Memoria 8-08 NSAID. l 11:00: Please [place] 00 check indication . Not for seizure. (Same As: CeleBREX) ceFAZolin No Notes: Memori a 01-11 Same as: l 11:00: Ancef [place] 00 Neurontin No Notes: Memori a 01-11 (Same as: l 11:00: Neurontin) [place] polymyxin B No Notes: Jah jina sulfate + 01-11 (Same as: l sodium 11:00: Polymyxin Jaime n chloride 00 B Sulfate) 0.9% 250 mL INJ (for IV set) 250 mL Lactated No 1,000 mL, Jah jina Ringers 01-11 Rate: 100 l 1,000 mL 11:00: ml/hr, Kush 00 Infuse over: 10 hr, Route: IV, Dosing [...] jina 01-11 (Same As: l 11:00: Cyklokapro Kush 00 n) CeleBREX No Notes: Memoria 01-11 NSAID. l 11:00: Please [place] 00 check indication . Not for seizure. (Same As: CeleBREX) ceFAZolin No Notes: Memori a 01-11 Same as: l 11:00: Ancef Kush 00 Neurontin No Notes: Memori a 01-11 (Same as: l 11:00: Neurontin) [place] polymyxin B No Notes: Jah jina sulfate + 01-11 (Same as: l sodium 11:00: Polymyxin Jaime n chloride 00 B Sulfate) 0.9% 250 mL INJ (for IV set) 250 mL Lactated No 1,000 mL, Jah jina Ringers 01-11 Rate: 100 l 1,000 mL 11:00: ml/hr, Kush 00 Infuse over: 10 hr, Route: IV, Dosing Weight 109.091 kg, Total Volume: 1,000, Start date: 01/11/17 6:00:00 CDT, Duration: 30 day, Stop date: 02/10/17 5:59:00 CDT vancomycin 2016- No 2000 mg: Me moria + sodium 8-08 infuse l chloride 11:00: over 2.5 Guillermina nn 0.9% 500 mL 00 hours INJ (for IV MEDICATION set) 500 mL WASTE Product Size: 1000 mg Product Wasted: ___ mg Cyklokapron 2016- No Notes: Jah jina 01-11 (Same As: l 11:00: Cyklokapro [place] 00 n) CeleBREX No Notes: Memoria 01-11 NSAID. l 11:00: Please Kush 00 check indication . Not for seizure. (Same As: CeleBREX) ceFAZolin No Notes: Memori a 01-11 Same as: l 11:00: Ancef Kush 00 Neurontin No Notes: Memori a 01-11 (Same as: l 11:00: Neurontin) [place] 00 polymyxin B No Notes: Jah jina sulfate + 01-11 (Same as: l sodium 11:00: Polymyxin Jaime n chloride 00 B Sulfate) 0.9% 250 mL INJ (for IV set) 250 mL Lactated No 1,000 mL, Jah jina Ringers 01-11 Rate: 100 l 1,000 mL 11:00: ml/hr, [place] 00 Infuse over: 10 hr, Route: IV, Dosing Weight 109.091 kg, Total Volume: 1,000, Start date: 01/11/17 6:00:00 CDT, Duration: 30 day, Stop date: 02/10/17 5:59:00 CDT vancomycin 2016- No 2000 mg: Me moria + sodium 8-08 infuse l chloride 11:00: over 2.5 Guillermina nn 0.9% 500 mL 00 hours INJ (for IV MEDICATION set) 500 mL WASTE Product Size: 1000 mg Product Wasted: ___ mg Cyklokapron No Notes: Jah jina - (Same As: l 11:00: Cyklokapro [place] 00 n) CeleBREX No Notes: Memoria 8- NSAID. l 11:00: Please [place] 00 check indication . Not for seizure. (Same As: CeleBREX) ceFAZolin No Notes: Memori a 01-11 Same as: l 11:00: Ancef Kush 00 Neurontin No Notes: Memori a 01-11 (Same as: l 11:00: Neurontin) Kush polymyxin B No Notes: Jah jina sulfate + 01-11 (Same as: l sodium 11:00: Polymyxin Jaime n chloride 00 B Sulfate) 0.9% 250 mL INJ (for IV set) 250 mL Lactated No 1,000 mL, Jah jina Ringers 01-11 Rate: 100 l 1,000 mL 11:00: ml/hr, Kush 00 Infuse over: 10 hr, Route: IV, Dosing [...] Size: 1000 mg Product Wasted: ___ mg ceFAZolin No Notes: Memori a 01-11 Same as: l 11:00: Ancef Kush 00 Cyklokapron No Notes: Jah jina 01-11 (Same As: l 11:00: Cyklokapro Kush 00 n) CeleBREX No Notes: Memoria 8-08 NSAID. l 11:00: Please [place] 00 check indication . Not for seizure. (Same As: CeleBREX) Neurontin No Notes: Memori a 01-11 (Same as: l 11:00: Neurontin) Kush 00 polymyxin B No Notes: Jah jina sulfate + 8-08 (Same as: l sodium 11:00: Polymyxin Jaime n chloride 00 B Sulfate) 0.9% 250 mL INJ (for IV set) 250 mL Lactated 2016- No 1,000 mL, Jah jina Ringers 01-11 Rate: 100 l 1,000 mL 11:00: ml/hr, Kush 00 Infuse over: 10 hr, Route: IV, Dosing Weight 109.091 kg, Total Volume: 1,000, Start date: 01/11/17 6:00:00 CDT, Duration: 30 day, Stop date: 02/10/17 5:59:00 CDT vancomycin No 2000 mg: Me moria + sodium 8- infuse l chloride 11:00: over 2.5 Guillermina nn 0.9% 500 mL 00 hours INJ (for IV MEDICATION set) 500 mL WASTE Product Size: 1000 mg Product Wasted: ___ mg Cyklokapron No Notes: Jah jina - (Same As: l 11:00: Cyklokapro [place] 00 n) CeleBREX No Notes: Memoria 8- NSAID. l 11:00: Please [place] 00 check indication . Not for seizure. (Same As: CeleBREX) ceFAZolin No Notes: Memori a 8-08 Same as: l 11:00: Ancef Kush 00 Neurontin No Notes: Memori a 01-11 (Same as: l 11:00: Neurontin) Kush 00 polymyxin B No Notes: Jah jina sulfate + -08 (Same as: l sodium 11:00: Polymyxin Jaime n chloride 00 B Sulfate) 0.9% 250 mL INJ (for IV set) 250 mL Lactated 2016-0 No 1,000 mL, Jah jina Ringers -08 Rate: 100 l 1,000 mL 11:00: ml/hr, [place] 00 Infuse over: 10 hr, Route: IV, Dosing Weight 109.091 kg, Total Volume: 1,000, Start date: 01/11/17 6:00:00 CDT, Duration: 30 day, Stop date: 02/10/17 5:59:00 CDT vancomycin No 2000 mg: Me moria + sodium 8-08 infuse l chloride 11:00: over 2.5 Guillermina nn 0.9% 500 mL 00 hours INJ (for IV MEDICATION set) 500 mL WASTE Product Size: 1000 mg Product Wasted: ___ mg Cyklokapron No Notes: Jah jina 01-11 (Same As: l 11:00: Cyklokapro [place] 00 n) CeleBREX No Notes: Memoria 8- NSAID. l 11:00: Please [place] 00 check indication . Not for seizure. (Same As: CeleBREX) ceFAZolin No Notes: Memori a 01-11 Same as: l 11:00: Ancef [place] 00 Neurontin No Notes: Memori a 01-11 (Same as: l 11:00: Neurontin) [place] 00 polymyxin B No Notes: Jah jina sulfate + 01-11 (Same as: l sodium 11:00: Polymyxin Jaime n chloride 00 B Sulfate) 0.9% 250 mL INJ (for IV set) 250 mL Lactated No 1,000 mL, Jah jina Ringers 01-11 Rate: 100 l 1,000 mL 11:00: ml/hr, Kush 00 Infuse over: 10 hr, Route: IV, Dosing [...] jina 01-11 (Same As: l 11:00: Cyklokapro [place] 00 n) CeleBREX No Notes: Memoria 08 NSAID. l 11:00: Please Kush 00 check indication . Not for seizure. (Same As: CeleBREX) ceFAZolin No Notes: Memori a 8-08 Same as: l 11:00: Ancef Kush 00 Neurontin 2016- No Notes: Memori a 8-08 (Same as: l 11:00: Neurontin) [place] polymyxin B No Notes: Jah jina sulfate + 8-08 (Same as: l sodium 11:00: Polymyxin Jaime n chloride 00 B Sulfate) 0.9% 250 mL INJ (for IV set) 250 mL Lactated No 1,000 mL, Jah jina Ringers 01-11 Rate: 100 l 1,000 mL 11:00: ml/hr, [place] 00 Infuse over: 10 hr, Route: IV, Dosing [...] jina 01-11 (Same As: l 11:00: Cyklokapro [place] 00 n) CeleBREX No Notes: Memoria 01-11 NSAID. l 11:00: Please Kush 00 check indication . Not for seizure. (Same As: CeleBREX) ceFAZolin No Notes: Memori a - Same as: l 11:00: Ancef Kush 00 Neurontin 2016-0 No Notes: Memori a - (Same as: l 11:00: Neurontin) [place] polymyxin B No Notes: Jah jina sulfate + 8-08 (Same as: l sodium 11:00: Polymyxin Jaime n chloride 00 B Sulfate) 0.9% 250 mL INJ (for IV set) 250 mL Lactated No 1,000 mL, Jah jina Ringers 08 Rate: 100 l 1,000 mL 11:00: ml/hr, [place] 00 Infuse over: 10 hr, Route: IV, Dosing Weight 109.091 kg, Total Volume: 1,000, Start date: 01/11/17 6:00:00 CDT, Duration: 30 day, Stop date: 02/10/17 5:59:00 CDT vancomycin 2016- No 2000 mg: Me moria + sodium 8-08 infuse l chloride 11:00: over 2.5 Guillermina nn 0.9% 500 mL 00 hours INJ (for IV MEDICATION set) 500 mL WASTE Product Size: 1000 mg Product Wasted: ___ mg Cyklokapron 2016- No Notes: Jah jina - (Same As: l 11:00: Cyklokapro Kush 00 n) CeleBREX No Notes: Memoria 01-11 NSAID. l 11:00: Please Kush 00 check indication . Not for seizure. (Same As: CeleBREX) ceFAZolin 2016- No Notes: Memori a 01-11 Same as: l 11:00: Ancef Kush 00 Neurontin 2016-0 No Notes: Memori a 01-11 (Same as: l 11:00: Neurontin) Kush 00 polymyxin B No Notes: Jah jina sulfate + 01-11 (Same as: l sodium 11:00: Polymyxin Jaime n chloride 00 B Sulfate) 0.9% 250 mL INJ (for IV set) 250 mL Lactated No 1,000 mL, Jah jina Ringers 01-11 Rate: 100 l 1,000 mL 11:00: ml/hr, Kush 00 Infuse over: 10 hr, Route: IV, Dosing Weight 109.091 kg, Total Volume: 1,000, Start date: 01/11/17 6:00:00 CDT, Duration: 30 day, Stop date: 02/10/17 5:59:00 CDT vancomycin 2016-0 No 2001 mg: Me moria + sodium 8-08 infuse l chloride 11:00: over 2.5 Guillermina nn 0.9% 500 mL 00 hours INJ (for IV MEDICATION set) 500 mL WASTE Product Size: 1000 mg Product Wasted: ___ mg Cyklokapron 2016-0 No Notes: Jah jina 8-08 (Same As: l 11:00: Cyklokapro Kush 00 n) CeleBREX 2017-0 No Notes: Memoria 8-08 NSAID. l 11:00: Please [place] 00 check indication . Not for seizure. (Same As: CeleBREX) ceFAZolin No Notes: Memori a 01-11 Same as: l 11:00: Ancef Kush 00 Neurontin No Notes: Memori a 01-11 (Same as: l 11:00: Neurontin) Kush polymyxin B No Notes: Jah jina sulfate + 01-11 (Same as: l sodium 11:00: Polymyxin Jaime n chloride 00 B Sulfate) 0.9% 250 mL INJ (for IV set) 250 mL Lactated No 1,000 mL, Jah jina Ringers 01-11 Rate: 100 l 1,000 mL 11:00: ml/hr, Kush 00 Infuse over: 10 hr, Route: IV, Dosing [...] jina 01-11 (Same As: l 11:00: Cyklokapro Kush 00 n) CeleBREX No Notes: Memoria 8- NSAID. l 11:00: Please Kush 00 check indication . Not for seizure. (Same As: CeleBREX) ceFAZolin No Notes: Memori a 01-11 Same as: l 11:00: Ancef Kush 00 Neurontin No Notes: Memori a 01-11 (Same as: l 11:00: Neurontin) Kush 00 polymyxin B No Notes: Jah jina sulfate + 08 (Same as: l sodium 11:00: Polymyxin Jaime n chloride 00 B Sulfate) 0.9% 250 mL INJ (for IV set) 250 mL Lactated No 1,000 mL, Jah jina Ringers - Rate: 100 l 1,000 mL 11:00: ml/hr, [place] 00 Infuse over: 10 hr, Route: IV, Dosing Weight 109.091 kg, Total Volume: 1,000, Start date: 01/11/17 6:00:00 CDT, Duration: 30 day, Stop date: 02/10/17 5:59:00 CDT vancomycin No 2000 mg: Me moria + sodium 8-08 infuse l chloride 11:00: over 2.5 Guillermina nn 0.9% 500 mL 00 hours INJ (for IV MEDICATION set) 500 mL WASTE Product Size: 1000 mg Product Wasted: ___ mg Cyklokapron No Notes: Jah jina 01-11 (Same As: l 11:00: Cyklokapro Kush 00 n) CeleBREX No Notes: Memoria 01-11 NSAID. l 11:00: Please Kush 00 check indication . Not for seizure. (Same As: CeleBREX) ceFAZolin No Notes: Memori a -08 Same as: l 11:00: Ancef Kush 00 Neurontin No Notes: Memori a -08 (Same as: l 11:00: Neurontin) [place] 00 polymyxin B No Notes: Jah jina sulfate + 01-11 (Same as: l sodium 11:00: Polymyxin Jaime n chloride 00 B Sulfate) 0.9% 250 mL INJ (for IV set) 250 mL Lactated No 1,000 mL, Jah jina Ringers 01-11 Rate: 100 l 1,000 mL 11:00: ml/hr, [place] 00 Infuse over: 10 hr, Route: IV, Dosing Weight 109.091 kg, Total Volume: 1,000, Start date: 01/11/17 6:00:00 CDT, Duration: 30 day, Stop date: 02/10/17 5:59:00 CDT vancomycin No 2000 mg: Me moria + sodium 8-08 infuse l chloride 11:00: over 2.5 Guillermina nn 0.9% 500 mL 00 hours INJ (for IV MEDICATION set) 500 mL WASTE Product Size: 1000 mg Product Wasted: ___ mg Cyklokapron 2016- No Notes: Jah jina 01-11 (Same As: l 11:00: Cyklokapro Kush 00 n) CeleBREX No Notes: Memoria 8-08 NSAID. l 11:00: Please Kush 00 check indication . Not for seizure. (Same As: CeleBREX) ceFAZolin No Notes: Memori a 01-11 Same as: l 11:00: Ancef Kush 00 Neurontin 2016-0 No Notes: Memori a 01-11 (Same as: l 11:00: Neurontin) [place] polymyxin B No Notes: Jah jina sulfate + 01-11 (Same as: l sodium 11:00: Polymyxin Jaime n chloride 00 B Sulfate) 0.9% 250 mL INJ (for IV set) 250 mL Lactated No 1,000 mL, Jah jina Ringers 01-11 Rate: 100 l 1,000 mL 11:00: ml/hr, [place] 00 Infuse over: 10 hr, Route: IV, Dosing [...] 1000 mg Product Wasted: ___ mg Cyklokapron 2016- No Notes: Jah jina 01-11 (Same As: l 11:00: Cyklokapro Kush 00 n) CeleBREX No Notes: Memoria 8-08 NSAID. l 11:00: Please [place] 00 check indication . Not for seizure. (Same As: CeleBREX) ceFAZolin No Notes: Memori a 01-11 Same as: l 11:00: Ancef [place] 00 Neurontin 2016-0 No Notes: Memori a 01-11 (Same as: l 11:00: Neurontin) Kush 00 ceFAZolin No Notes: Memori a 8- Same as: l 11:00: Ancef Kush 00 Neurontin 2016-0 No Notes: Memori a 8-08 (Same as: l 11:00: Neurontin) Kush polymyxin B No Notes: Jah jina sulfate + 8-08 (Same as: l sodium 11:00: Polymyxin Jaime n chloride 00 B Sulfate) 0.9% 250 mL INJ (for IV set) 250 mL Lactated No 1,000 mL, Jah jina Ringers 01-11 Rate: 100 l 1,000 mL 11:00: ml/hr, [place] 00 Infuse over: 10 hr, Route: IV, Dosing Weight 109.091 kg, Total Volume: 1,000, Start date: 01/11/17 6:00:00 CDT, Duration: 30 day, Stop date: 02/10/17 5:59:00 CDT vancomycin No 2000 mg: Me moria + sodium 01-11 infuse l chloride 11:00: over 2.5 Guillermina nn 0.9% 500 mL 00 hours INJ (for IV MEDICATION set) 500 mL WASTE Product Size: 1000 mg Product Wasted: ___ mg polymyxin B No Notes: Jah jina sulfate + 8-08 (Same as: l sodium 11:00: Polymyxin Jamie n chloride 00 B Sulfate) 0.9% 250 mL INJ (for IV set) 250 mL Cyklokapron No Notes: Jah jina 01-11 (Same As: l 11:00: Cyklokapro Kush n) CeleBREX No Notes: Memoria 8- NSAID. l 11:00: Please Kush 00 check indication . Not for seizure. (Same As: CeleBREX) Lactated 2016-0 No 1,000 mL, Jah jina Ringers -08 Rate: 100 l 1,000 mL 11:00: ml/hr, [place] 00 Infuse over: 10 hr, Route: IV, Dosing Weight 109.091 kg, Total Volume: 1,000, Start date: 01/11/17 6:00:00 CDT, Duration: 30 day, Stop date: 02/10/17 5:59:00 CDT vancomycin No 2000 mg: Me moria + sodium 01-11 infuse l chloride 11:00: over 2.5 Guillermina nn 0.9% 500 mL 00 hours INJ (for IV MEDICATION set) 500 mL WASTE Product Size: 1000 mg Product Wasted: ___ mg Cyklokapron No Notes: Jah jina 01-11 (Same As: l 11:00: Cyklokapro Kush 00 n) CeleBREX No Notes: Memoria 8 NSAID. l 11:00: Please Kush 00 check indication . Not for seizure. (Same As: CeleBREX) ceFAZolin No Notes: Memori a 01-11 Same as: l 11:00: Ancef [place] 00 Neurontin No Notes: Memori a 01-11 (Same as: l 11:00: Neurontin) [place] 00 polymyxin B No Notes: Jah jina sulfate + 01-11 (Same as: l sodium 11:00: Polymyxin Jaime n chloride 00 B Sulfate) 0.9% 250 mL INJ (for IV set) 250 mL Lactated No 1,000 mL, Jah jina Ringers 01-11 Rate: 100 l 1,000 mL 11:00: ml/hr, [place] 00 Infuse over: 10 hr, Route: IV, Dosing Weight 109.091 kg, Total Volume: 1,000, Start date: 01/11/17 6:00:00 CDT, Duration: 30 day, Stop date: 02/10/17 5:59:00 CDT vancomycin No 2000 mg: Me moria + sodium 01-11 infuse l chloride 11:00: over 2.5 Guillermina nn 0.9% 500 mL 00 hours INJ (for IV MEDICATION set) 500 mL WASTE Product Size: 1000 mg Product Wasted: ___ mg Cyklokapron No Notes: Jah jina 01-11 (Same As: l 11:00: Cyklokapro [place] 00 n) CeleBREX No Notes: Memoria 8-08 NSAID. l 11:00: Please Kush 00 check indication . Not for seizure. (Same As: CeleBREX) ceFAZolin 2017-0 No Notes: Memori a 8- Same as: l 11:00: Ancef Kush 00 Neurontin No Notes: Memori a 01-11 (Same as: l 11:00: Neurontin) Kush polymyxin B No Notes: Jah jina sulfate + 01-11 (Same as: l sodium 11:00: Polymyxin Jaime n chloride 00 B Sulfate) 0.9% 250 mL INJ (for IV set) 250 mL Lactated No 1,000 mL, Jah jina Ringers 01-11 Rate: 100 l 1,000 mL 11:00: ml/hr, [place] 00 Infuse over: 10 hr, Route: IV, Dosing Weight 109.091 kg, Total Volume: 1,000, Start date: 01/11/17 6:00:00 CDT, Duration: 30 day, Stop date: 02/10/17 5:59:00 CDT vancomycin No 2000 mg: Me moria + sodium 01-11 infuse l chloride 11:00: over 2.5 Guillermina nn 0.9% 500 mL 00 hours INJ (for IV MEDICATION set) 500 mL WASTE Product Size: 1000 mg Product Wasted: ___ mg Cyklokapron No Notes: Jah jina 01-11 (Same As: l 11:00: Cyklokapro Kush 00 n) CeleBREX No Notes: Memoria 01-11 NSAID. l 11:00: Please [place] check indication . Not for seizure. (Same As: CeleBREX) ceFAZolin No Notes: Memori a 01-11 Same as: l 11:00: Ancef Kush 00 Neurontin 0 No Notes: Memori a 01-11 (Same as: l 11:00: Neurontin) Kush polymyxin B No Notes: Jah jina sulfate + 01-11 (Same as: l sodium 11:00: Polymyxin Jaime n chloride 00 B Sulfate) 0.9% 250 mL INJ (for IV set) 250 mL Lactated No 1,000 mL, Jah jina Ringers 01-11 Rate: 100 l 1,000 mL 11:00: ml/hr, [place] 00 Infuse over: 10 hr, Route: IV, Dosing Weight 109.091 kg, Total Volume: 1,000, Start date: 01/11/17 6:00:00 CDT, Duration: 30 day, Stop date: 02/10/17 5:59:00 CDT vancomycin 2017-0 No 2001 mg: Me moria + sodium 8-08 infuse l chloride 11:00: over 2.5 Guillermina nn 0.9% 500 mL 00 hours INJ (for IV MEDICATION set) 500 mL WASTE Product Size: 1000 mg Product Wasted: ___ mg Cyklokapron 2016- No Notes: Jah jina - (Same As: l 11:00: Cyklokapro [place] 00 n) CeleBREX 2016- No Notes: Memoria 01-11 NSAID. l 11:00: Please [place] 00 check indication . Not for seizure. (Same As: CeleBREX) ceFAZolin 2016- No Notes: Memori a 01-11 Same as: l 11:00: Ancef [place] 00 Neurontin 2016-0 No Notes: Memori a 01-11 (Same as: l 11:00: Neurontin) [place] 00 polymyxin B 2016- No Notes: Jah jina sulfate + 01-11 (Same as: l sodium 11:00: Polymyxin Jaime n chloride 00 B Sulfate) 0.9% 250 mL INJ (for IV set) 250 mL Lactated No 1,000 mL, Jah jina Ringers 01-11 Rate: 100 l 1,000 mL 11:00: ml/hr, Kush 00 Infuse over: 10 hr, Route: IV, Dosing Weight 109.091 kg, Total Volume: 1,000, Start date: 01/11/17 6:00:00 CDT, Duration: 30 day, Stop date: 02/10/17 5:59:00 CDT vancomycin 2017-0 No 2001 mg: Me moria + sodium 8-08 infuse l chloride 11:00: over 2.5 Guillermina nn 0.9% 500 mL 00 hours INJ (for IV MEDICATION set) 500 mL WASTE Product Size: 1000 mg Product Wasted: ___ mg Cyklokapron 2017-0 No Notes: Jah jina 8-08 (Same As: l 11:00: Cyklokapro [place] 00 n) CeleBREX No Notes: Memoria 8-08 NSAID. l 11:00: Please [place] 00 check indication . Not for seizure. (Same As: CeleBREX) ceFAZolin No Notes: Memori a - Same as: l 11:00: Ancef Kush 00 Neurontin No Notes: Memori a 01-11 (Same as: l 11:00: Neurontin) [place] polymyxin B No Notes: Jah jina sulfate + 01-11 (Same as: l sodium 11:00: Polymyxin Jaime n chloride 00 B Sulfate) 0.9% 250 mL INJ (for IV set) 250 mL Lactated No 1,000 mL, Jah jina Ringers 01-11 Rate: 100 l 1,000 mL 11:00: ml/hr, [place] 00 Infuse over: 10 hr, Route: IV, Dosing [...] jina 01-11 (Same As: l 11:00: Cyklokapro [place] 00 n) CeleBREX No Notes: Memoria 8-08 NSAID. l 11:00: Please [place] 00 check indication . Not for seizure. (Same As: CeleBREX) ceFAZolin No Notes: Memori a - Same as: l 11:00: Ancef [place] 00 Neurontin No Notes: Memori a - (Same as: l 11:00: Neurontin) Kush 00 polymyxin B No Notes: Jah jina sulfate + -08 (Same as: l sodium 11:00: Polymyxin Jaime n chloride 00 B Sulfate) 0.9% 250 mL INJ (for IV set) 250 mL Lactated 2016- No 1,000 mL, Jah jina Ringers 01-11 Rate: 100 l 1,000 mL 11:00: ml/hr, Kush 00 Infuse over: 10 hr, Route: IV, Dosing Weight 109.091 kg, Total Volume: 1,000, Start date: 01/11/17 6:00:00 CDT, Duration: 30 day, Stop date: 02/10/17 5:59:00 CDT vancomycin No 2000 mg: Me moria + sodium 8-08 infuse l chloride 11:00: over 2.5 Guillermina nn 0.9% 500 mL 00 hours INJ (for IV MEDICATION set) 500 mL WASTE Product Size: 1000 mg Product Wasted: ___ mg Cyklokapron No Notes: Jah jina 01-11 (Same As: l 11:00: Cyklokapro [place] 00 n) CeleBREX No Notes: Memoria 01-11 NSAID. l 11:00: Please [place] 00 check indication . Not for seizure. (Same As: CeleBREX) ceFAZolin No Notes: Memori a - Same as: l 11:00: Ancef Kush 00 Neurontin No Notes: Memori a - (Same as: l 11:00: Neurontin) [place] 00 polymyxin B No Notes: Jah jina sulfate + 01-11 (Same as: l sodium 11:00: Polymyxin Jaiem n chloride 00 B Sulfate) 0.9% 250 mL INJ (for IV set) 250 mL Lactated No 1,000 mL, Jah jina Ringers 01-11 Rate: 100 l 1,000 mL 11:00: ml/hr, [place] 00 Infuse over: 10 hr, Route: IV, Dosing Weight 109.091 kg, Total Volume: 1,000, Start date: 01/11/17 6:00:00 CDT, Duration: 30 day, Stop date: 02/10/17 5:59:00 CDT vancomycin No 2000 mg: Me moria + sodium 8-08 infuse l chloride 11:00: over 2.5 Guillermina nn 0.9% 500 mL 00 hours INJ (for IV MEDICATION set) 500 mL WASTE Product Size: 1000 mg Product Wasted: ___ mg Cyklokapron 2016- No Notes: Jah jina 01-11 (Same As: l 11:00: Cyklokapro [place] 00 n) CeleBREX No Notes: Memoria 8-08 NSAID. l 11:00: Please [place] 00 check indication . Not for seizure. (Same As: CeleBREX) ceFAZolin No Notes: Memori a 01-11 Same as: l 11:00: Ancef [place] 00 Neurontin No Notes: Memori a 01-11 (Same as: l 11:00: Neurontin) Kush 00 polymyxin B No Notes: Jah jina sulfate + 01-11 (Same as: l sodium 11:00: Polymyxin Jaime n chloride 00 B Sulfate) 0.9% 250 mL INJ (for IV set) 250 mL Lactated No 1,000 mL, Jah jina Ringers 01-11 Rate: 100 l 1,000 mL 11:00: ml/hr, [place] 00 Infuse over: 10 hr, Route: IV, Dosing [...] jina 01-11 (Same As: l 11:00: Cyklokapro [place] 00 n) CeleBREX No Notes: Memoria 8-08 NSAID. l 11:00: Please [place] 00 check indication . Not for seizure. (Same As: CeleBREX) ceFAZolin No Notes: Memori a 01-11 Same as: l 11:00: Ancef Kush 00 Neurontin 2016-0 No Notes: Memori a 01-11 (Same as: l 11:00: Neurontin) [place] 00 polymyxin B No Notes: Jah jina sulfate + 8-08 (Same as: l sodium 11:00: Polymyxin Ajime n chloride 00 B Sulfate) 0.9% 250 mL INJ (for IV set) 250 mL Lactated 2016- No 1,000 mL, Jah jina Ringers 8-08 Rate: 100 l 1,000 mL 11:00: ml/hr, [place] 00 Infuse over: 10 hr, Route: IV, Dosing Weight 109.091 kg, Total Volume: 1,000, Start date: 01/11/17 6:00:00 CDT, Duration: 30 day, Stop date: 02/10/17 5:59:00 CDT vancomycin No 2001 mg: Me moria + sodium 8-08 infuse l chloride 11:00: over 2.5 Guillermina nn 0.9% 500 mL 00 hours INJ (for IV MEDICATION set) 500 mL WASTE Product Size: 1000 mg Product Wasted: ___ mg Cyklokapron No Notes: Jah jina 8-08 (Same As: l 11:00: Cyklokapro Kush 00 n) CeleBREX No Notes: Memoria 8-08 NSAID. l 11:00: Please Kush 00 check indication . Not for seizure. (Same As: CeleBREX) ceFAZolin No Notes: Memori a 8-08 Same as: l 11:00: Ancef Kush 00 Neurontin No Notes: Memori a 8-08 (Same as: l 11:00: Neurontin) [place] polymyxin B No Notes: Jah jina sulfate + 8-08 (Same as: l sodium 11:00: Polymyxin Jaime n chloride 00 B Sulfate) 0.9% 250 mL INJ (for IV set) 250 mL Lactated 2016- No 1,000 mL, Jah jina Ringers 8-08 Rate: 100 l 1,000 mL 11:00: ml/hr, [place] 00 Infuse over: 10 hr, Route: IV, Dosing Weight 109.091 kg, Total Volume: 1,000, Start date: 01/11/17 6:00:00 CDT, Duration: 30 day, Stop date: 02/10/17 5:59:00 CDT vancomycin 2017-0 No 2001 mg: Me moria + sodium 01-11 infuse l chloride 11:00: over 2.5 Guillermina nn 0.9% 500 mL 00 hours INJ (for IV MEDICATION set) 500 mL WASTE Product Size: 1000 mg Product Wasted: ___ mg Cyklokapron 2016- No Notes: Jah jina 01-11 (Same As: l 11:00: Cyklokapro [place] 00 n) CeleBREX No Notes: Memoria 8- NSAID. l 11:00: Please [place] 00 check indication . Not for seizure. (Same As: CeleBREX) ceFAZolin 2016- No Notes: Memori a 01-11 Same as: l 11:00: Ancef [place] 00 Neurontin 2016-0 No Notes: Memori a 01-11 (Same as: l 11:00: Neurontin) [place] 00 polymyxin B 2016- No Notes: Jah jina sulfate + 01-11 (Same as: l sodium 11:00: Polymyxin Jaime n chloride 00 B Sulfate) 0.9% 250 mL INJ (for IV set) 250 mL Lactated No 1,000 mL, Jah jina Ringers 01-11 Rate: 100 l 1,000 mL 11:00: ml/hr, [place] 00 Infuse over: 10 hr, Route: IV, Dosing Weight 109.091 kg, Total Volume: 1,000, Start date: 01/11/17 6:00:00 CDT, Duration: 30 day, Stop date: 02/10/17 5:59:00 CDT vancomycin 2017- No 2001 mg: Me moria + sodium 01-11 infuse l chloride 11:00: over 2.5 Guillermina nn 0.9% 500 mL 00 hours INJ (for IV MEDICATION set) 500 mL WASTE Product Size: 1000 mg Product Wasted: ___ mg Cyklokapron 2017-0 No Notes: Jah jina 01-11 (Same As: l 11:00: Cyklokapro [place] 00 n) CeleBREX 2016-0 No Notes: Memoria 8-08 NSAID. l 11:00: Please [place] 00 check indication . Not for seizure. (Same As: CeleBREX) ceFAZolin 2017-0 No Notes: Memori a 8- Same as: l 11:00: Ancef Kush 00 Neurontin No Notes: Memori a 01-11 (Same as: l 11:00: Neurontin) Kush polymyxin B No Notes: Jah jina sulfate + 01-11 (Same as: l sodium 11:00: Polymyxin Jaime n chloride 00 B Sulfate) 0.9% 250 mL INJ (for IV set) 250 mL Lactated No 1,000 mL, Jah jina Ringers 01-11 Rate: 100 l 1,000 mL 11:00: ml/hr, [place] 00 Infuse over: 10 hr, Route: IV, Dosing [...] jina 01-11 (Same As: l 11:00: Cyklokapro [place] 00 n) CeleBREX No Notes: Memoria 01-11 NSAID. l 11:00: Please [place] 00 check indication . Not for seizure. (Same As: CeleBREX) ceFAZolin No Notes: Memori a - Same as: l 11:00: Ancef Kush 00 Neurontin No Notes: Memori a 01-11 (Same as: l 11:00: Neurontin) Kush 00 polymyxin B No Notes: Jah jina sulfate + 08 (Same as: l sodium 11:00: Polymyxin Jaime n chloride 00 B Sulfate) 0.9% 250 mL INJ (for IV set) 250 mL Lactated 2016- No 1,000 mL, Jah jina Ringers 01-11 Rate: 100 l 1,000 mL 11:00: ml/hr, Kush 00 Infuse over: 10 hr, Route: IV, Dosing Weight 109.091 kg, Total Volume: 1,000, Start date: 01/11/17 6:00:00 CDT, Duration: 30 day, Stop date: 02/10/17 5:59:00 CDT vancomycin No 2000 mg: Me moria + sodium 01-11 infuse l chloride 11:00: over 2.5 Guillermina nn 0.9% 500 mL 00 hours INJ (for IV MEDICATION set) 500 mL WASTE Product Size: 1000 mg Product Wasted: ___ mg Cyklokapron No Notes: Jah jina 01-11 (Same As: l 11:00: Cyklokapro [place] 00 n) CeleBREX No Notes: Memoria 01-11 NSAID. l 11:00: Please Kush 00 check indication . Not for seizure. (Same As: CeleBREX) Insulin, No Notes: Memoria Aspart, 01-11 Roll in l Human 10:08: palms of Kush 00 hands gently; Do not shake vigorously . (Same as: NovoLOG) "single patient use only" WASTE: F/P - Black; E - Municipal Trash Bin Stable for 28 days at room temperatur e. Expires in days from ____Date Albuterol No Notes: Memori a 0.833 MG/ML 01-11 (Same as: l / 10:08: Duoneb) [place] Ipratropium 00 [place] 0.167 MG/ML Inhalant Solution albuterol No Notes: Memori a 90 mcg/inh 01-11 Same as: l inhalation 10:08: Ventolin Her lawson aerosol 00 HFA WASTE: Aerosol - Return to Pharmacy Calcium No 1,000 mL, Memor ia Chloride 01-11 Rate: 25 l 0.0014 10:08: ml/hr, [place] MEQ/ML / 00 Infuse Potassium over: 40 Chloride hr, Route: 0.004 IV, Dosing MEQ/ML / Weight Sodium 109.091 Chloride kg, Total 0.103 Volume: MEQ/ML / 1,000, Sodium Start Lactate date: 0.028 01/11/17 MEQ/ML 5:08:00 Injectable CDT, Solution Duration: 30 day, Stop date: 02/10/17 5:07:00 CDT Insulin, No Notes: Memoria Aspart, 01-11 Roll in l Human 10:08: palms of [place] 00 hands gently; Do not shake vigorously . (Same as: NovoLOG) "single patient use only" WASTE: F/P - Black; E - [employer] Trash Bin Stable for 28 days at room temperatur e. Expires in days from ____Date Albuterol No Notes: Memori a 0.833 MG/ML 01-11 (Same as: l / 10:08: Duoneb) Kush Ipratropium 00 [place] 0.167 MG/ML Inhalant Solution albuterol No Notes: Memori a 90 mcg/inh 01-11 Same as: l inhalation 10:08: Ventolin Her lawson aerosol 00 HFA WASTE: Aerosol - Return to Pharmacy Calcium No 1,000 mL, Memor ia Chloride 01-11 Rate: 25 l 0.0014 10:08: ml/hr, [place] MEQ/ML / 00 Infuse Potassium over: 40 Chloride hr, Route: 0.004 IV, Dosing MEQ/ML / Weight Sodium 109.091 Chloride kg, Total 0.103 Volume: MEQ/ML / 1,000, Sodium Start Lactate date: 0.028 01/11/17 MEQ/ML 5:08:00 Injectable CDT, Solution Duration: 30 day, Stop date: 02/10/17 5:07:00 CDT Insulin, No Notes: Memoria Aspart, 01-11 Roll in l Human 10:08: palms of [place] 00 hands gently; Do not shake vigorously . (Same as: NovoLOG) "single patient use only" WASTE: F/P - Black; E - [employer] Trash Bin Stable for 28 days at room temperatur e. Expires in days from ____Date Albuterol No Notes: Memori a 0.833 MG/ML 01-11 (Same as: l / 10:08: Duoneb) [place] Ipratropium 00 [place] 0.167 MG/ML Inhalant Solution albuterol No Notes: Memori a 90 mcg/inh 01-11 Same as: l inhalation 10:08: Ventolin Her lawson aerosol HFA WASTE: Aerosol - Return to Pharmacy [place] No 1,000 mL, Memor ia Chloride 01-11 Rate: 25 l 0.0014 10:08: ml/hr, Kush MEQ/ML / 00 Infuse Potassium over: 40 Chloride hr, Route: 0.004 IV, Dosing MEQ/ML / Weight Sodium 109.091 Chloride kg, Total 0.103 Volume: MEQ/ML / 1,000, Sodium Start Lactate date: 0.028 01/11/17 MEQ/ML 5:08:00 Injectable CDT, Solution Duration: 30 day, Stop date: 02/10/17 5:07:00 CDT Insulin, No Notes: Memoria Aspart, 01-11 Roll in l Human 10:08: palms of [place] 00 hands gently; Do not shake vigorously . (Same as: NovoLOG) "single patient use only" WASTE: F/P - Black; E - [employer] Trash Bin Stable for 28 days at room temperatur e. Expires in days from ____Date Albuterol No Notes: Memori a 0.833 MG/ML 01-11 (Same as: l / 10:08: Duoneb) Kush Ipratropium 00 [place] 0.167 MG/ML Inhalant Solution albuterol No Notes: Memori a 90 mcg/inh 01-11 Same as: l inhalation 10:08: Ventolin Her lawson aerosol HFA WASTE: Aerosol - Return to Pharmacy Calcium No 1,000 mL, Memor ia Chloride 01-11 Rate: 25 l 0.0014 10:08: ml/hr, [place] MEQ/ML / 00 Infuse Potassium over: 40 Chloride hr, Route: 0.004 IV, Dosing MEQ/ML / Weight Sodium 109.091 Chloride kg, Total 0.103 Volume: MEQ/ML / 1,000, Sodium Start Lactate date: 0.028 01/11/17 MEQ/ML 5:08:00 Injectable CDT, Solution Duration: 30 day, Stop date: 02/10/17 5:07:00 CDT Insulin, No Notes: Memoria Aspart, 01-11 Roll in l Human 10:08: palms of [place] 00 hands gently; Do not shake vigorously . (Same as: NovoLOG) "single patient use only" WASTE: F/P - Black; E - [employer] Trash Bin Stable for 28 days at room temperatur e. Expires in days from ____Date Albuterol No Notes: Memori a 0.833 MG/ML 01-11 (Same as: l / 10:08: Duoneb) [place] Ipratropium 00 [place] 0.167 MG/ML Inhalant Solution albuterol No Notes: Memori a 90 mcg/inh 01-11 Same as: l inhalation 10:08: Ventolin Her lawson aerosol 00 HFA WASTE: Aerosol - Return to Pharmacy Calcium No 1,000 mL, Memor ia Chloride 01-11 Rate: 25 l 0.0014 10:08: ml/hr, Kush MEQ/ML / 00 Infuse Potassium over: 40 Chloride hr, Route: 0.004 IV, Dosing MEQ/ML / Weight Sodium 109.091 Chloride kg, Total 0.103 Volume: MEQ/ML / 1,000, Sodium Start Lactate date: 0.028 01/11/17 MEQ/ML 5:08:00 Injectable CDT, Solution Duration: 30 day, Stop date: 02/10/17 5:07:00 CDT Insulin, No Notes: Memoria Aspart, 01-11 Roll in l Human 10:08: palms of [place] 00 hands gently; Do not shake vigorously . (Same as: NovoLOG) "single patient use only" WASTE: F/P - Black; E - Municipal Trash Bin Stable for 28 days at room temperatur e. Expires in days from ____Date Albuterol No Notes: Memori a 0.833 MG/ML 01-11 (Same as: l / 10:08: Duoneb) Kush Ipratropium 00 [place] 0.167 MG/ML Inhalant Solution albuterol No Notes: Memori a 90 mcg/inh 01-11 Same as: l inhalation 10:08: Ventolin Her lawson aerosol 00 HFA WASTE: Aerosol - Return to Pharmacy [place] No 1,000 mL, Memor ia Chloride 01-11 Rate: 25 l 0.0014 10:08: ml/hr, [place] MEQ/ML / 00 Infuse Potassium over: 40 Chloride hr, Route: 0.004 IV, Dosing MEQ/ML / Weight Sodium 109.091 Chloride kg, Total 0.103 Volume: MEQ/ML / 1,000, Sodium Start Lactate date: 0.028 01/11/17 MEQ/ML 5:08:00 Injectable CDT, Solution Duration: 30 day, Stop date: 02/10/17 5:07:00 CDT Insulin, No Notes: Memoria Aspart, 01-11 Roll in l Human 10:08: palms of [place] 00 hands gently; Do not shake vigorously . (Same as: NovoLOG) "single patient use only" WASTE: F/P - Black; E - [employer] Trash Bin Stable for 28 days at room temperatur e. Expires in days from ____Date Albuterol No Notes: Memori a 0.833 MG/ML 01-11 (Same as: l / 10:08: Duoneb) [place] Ipratropium 00 [place] 0.167 MG/ML Inhalant Solution albuterol No Notes: Memori a 90 mcg/inh 01-11 Same as: l inhalation 10:08: Ventolin Her lawson aerosol HFA WASTE: Aerosol - Return to Pharmacy [place] No 1,000 mL, Memor ia Chloride 01-11 Rate: 25 l 0.0014 10:08: ml/hr, [place] MEQ/ML / 00 Infuse Potassium over: 40 Chloride hr, Route: 0.004 IV, Dosing MEQ/ML / Weight Sodium 109.091 Chloride kg, Total 0.103 Volume: MEQ/ML / 1,000, Sodium Start Lactate date: 0.028 01/11/17 MEQ/ML 5:08:00 Injectable CDT, Solution Duration: 30 day, Stop date: 02/10/17 5:07:00 CDT Insulin, No Notes: Memoria Aspart, 01-11 Roll in l Human 10:08: palms of [place] 00 hands gently; Do not shake vigorously . (Same as: NovoLOG) "single patient use only" WASTE: F/P - Black; E - [employer] Trash Bin Stable for 28 days at room temperatur e. Expires in days from ____Date Albuterol No Notes: Memori a 0.833 MG/ML 01-11 (Same as: l / 10:08: Duoneb) Kush Ipratropium 00 [place] 0.167 MG/ML Inhalant Solution albuterol No Notes: Memori a 90 mcg/inh 01-11 Same as: l inhalation 10:08: Ventolin Her lawson aerosol 00 HFA WASTE: Aerosol - Return to Pharmacy Calcium No 1,000 mL, Memor ia Chloride 01-11 Rate: 25 l 0.0014 10:08: ml/hr, [place] MEQ/ML / 00 Infuse Potassium over: 40 Chloride hr, Route: 0.004 IV, Dosing MEQ/ML / Weight Sodium 109.091 Chloride kg, Total 0.103 Volume: MEQ/ML / 1,000, Sodium Start Lactate date: 0.028 01/11/17 MEQ/ML 5:08:00 Injectable CDT, Solution Duration: 30 day, Stop date: 02/10/17 5:07:00 CDT Insulin, No Notes: Memoria Aspart, 01-11 Roll in l Human 10:08: palms of [place] 00 hands gently; Do not shake vigorously . (Same as: NovoLOG) "single patient use only" WASTE: F/P - Black; E - [employer] Trash Bin Stable for 28 days at room temperatur e. Expires in days from ____Date Albuterol No Notes: Memori a 0.833 MG/ML 01-11 (Same as: l / 10:08: Duoneb) [place] Ipratropium 00 [place] 0.167 MG/ML Inhalant Solution albuterol No Notes: Memori a 90 mcg/inh 01-11 Same as: l inhalation 10:08: Ventolin Her lawson aerosol 00 HFA WASTE: Aerosol - Return to Pharmacy [place] No 1,000 mL, Memor ia Chloride 01-11 Rate: 25 l 0.0014 10:08: ml/hr, Kush MEQ/ML / 00 Infuse Potassium over: 40 Chloride hr, Route: 0.004 IV, Dosing MEQ/ML / Weight Sodium 109.091 Chloride kg, Total 0.103 Volume: MEQ/ML / 1,000, Sodium Start Lactate date: 0.028 01/11/17 MEQ/ML 5:08:00 Injectable CDT, Solution Duration: 30 day, Stop date: 02/10/17 5:07:00 CDT Insulin, No Notes: Memoria Aspart, 01-11 Roll in l Human 10:08: palms of [place] 00 hands gently; Do not shake vigorously . (Same as: NovoLOG) "single patient use only" WASTE: F/P - Black; E - [employer] Trash Bin Stable for 28 days at room temperatur e. Expires in days from ____Date Albuterol No Notes: Memori a 0.833 MG/ML 01-11 (Same as: l / 10:08: Duoneb) Kush Ipratropium 00 [place] 0.167 MG/ML Inhalant Solution albuterol No Notes: Memori a 90 mcg/inh 01-11 Same as: l inhalation 10:08: Ventolin Her lawson aerosol HFA WASTE: Aerosol - Return to Pharmacy Calcium No 1,000 mL, Memor ia Chloride 01-11 Rate: 25 l 0.0014 10:08: ml/hr, [place] MEQ/ML / 00 Infuse Potassium over: 40 Chloride hr, Route: 0.004 IV, Dosing MEQ/ML / Weight Sodium 109.091 Chloride kg, Total 0.103 Volume: MEQ/ML / 1,000, Sodium Start Lactate date: 0.028 01/11/17 MEQ/ML 5:08:00 Injectable CDT, Solution Duration: 30 day, Stop date: 02/10/17 5:07:00 CDT Insulin, No Notes: Memoria Aspart, 01-11 Roll in l Human 10:08: palms of [place] 00 hands gently; Do not shake vigorously . (Same as: NovoLOG) "single patient use only" WASTE: F/P - Black; E - [employer] Trash Bin Stable for 28 days at room temperatur e. Expires in days from ____Date Albuterol No Notes: Memori a 0.833 MG/ML 01-11 (Same as: l :08: Duone) [place] Ipratropium 00 [place] 0.167 MG/ML Inhalant Solution albuterol No Notes: Memori a 90 mcg/inh 01-11 Same as: l inhalation 10:08: Ventolin Her lawson aerosol 00 HFA WASTE: Aerosol - Return to Pharmacy Calcium No 1,000 mL, Memor ia Chloride 01-11 Rate: 25 l 0.0014 10:08: ml/hr, Kush MEQ/ML / 00 Infuse Potassium over: 40 Chloride hr, Route: 0.004 IV, Dosing MEQ/ML / Weight Sodium 109.091 Chloride kg, Total 0.103 Volume: MEQ/ML / 1,000, Sodium Start Lactate date: 0.028 01/11/17 MEQ/ML 5:08:00 Injectable CDT, Solution Duration: 30 day, Stop date: 02/10/17 5:07:00 CDT Insulin, No Notes: Memoria Aspart, 01-11 Roll in l Human 10:08: palms of [place] 00 hands gently; Do not shake vigorously . (Same as: NovoLOG) "single patient use only" WASTE: F/P - Black; E - Municipal Trash Bin Stable for 28 days at room temperatur e. Expires in days from ____Date Albuterol No Notes: Memori a 0.833 MG/ML 01-11 (Same as: :08: Duone) Kush Ipratropium 00 [place] 0.167 MG/ML Inhalant Solution albuterol No Notes: Memori a 90 mcg/inh 01-11 Same as: l inhalation 10:08: Ventolin Her lawson aerosol 00 HFA WASTE: Aerosol - Return to Pharmacy Calcium No 1,000 mL, Memor ia Chloride 01-11 Rate: 25 l 0.0014 10:08: ml/hr, [place] MEQ/ML / 00 Infuse Potassium over: 40 Chloride hr, Route: 0.004 IV, Dosing MEQ/ML / Weight Sodium 109.091 Chloride kg, Total 0.103 Volume: MEQ/ML / 1,000, Sodium Start Lactate date: 0.028 01/11/17 MEQ/ML 5:08:00 Injectable CDT, Solution Duration: 30 day, Stop date: 02/10/17 5:07:00 CDT Insulin, No Notes: Memoria Aspart, 01-11 Roll in l Human 10:08: palms of [place] 00 hands gently; Do not shake vigorously . (Same as: NovoLOG) "single patient use only" WASTE: F/P - Black; E - [employer] Trash Bin Stable for 28 days at room temperatur e. Expires in days from ____Date Albuterol No Notes: Memori a 0.833 MG/ML 01-11 (Same as: l / 10:08: Duoneb) [place] Ipratropium 00 [place] 0.167 MG/ML Inhalant Solution albuterol No Notes: Memori a 90 mcg/inh 01-11 Same as: l inhalation 10:08: Ventolin Her lawson aerosol HFA WASTE: Aerosol - Return to Pharmacy Calcium No 1,000 mL, Memor ia Chloride 01-11 Rate: 25 l 0.0014 10:08: ml/hr, [place] MEQ/ML / 00 Infuse Potassium over: 40 Chloride hr, Route: 0.004 IV, Dosing MEQ/ML / Weight Sodium 109.091 Chloride kg, Total 0.103 Volume: MEQ/ML / 1,000, Sodium Start Lactate date: 0.028 01/11/17 MEQ/ML 5:08:00 Injectable CDT, Solution Duration: 30 day, Stop date: 02/10/17 5:07:00 CDT Insulin, No Notes: Memoria Aspart, 01-11 Roll in l Human 10:08: palms of [place] 00 hands gently; Do not shake vigorously . (Same as: NovoLOG) "single patient use only" WASTE: F/P - Black; E - Municipal Trash Bin Stable for 28 days at room temperatur e. Expires in days from ____Date Albuterol No Notes: Memori a 0.833 MG/ML 01-11 (Same as: l / 10:08: Duone) [place] Ipratropium 00 [place] 0.167 MG/ML Inhalant Solution albuterol No Notes: Memori a 90 mcg/inh 01-11 Same as: l inhalation 10:08: Ventolin Her lawson aerosol 00 HFA WASTE: Aerosol - Return to Pharmacy Calcium No 1,000 mL, Memor ia Chloride 01-11 Rate: 25 l 0.0014 10:08: ml/hr, Kush MEQ/ML / 00 Infuse Potassium over: 40 Chloride hr, Route: 0.004 IV, Dosing MEQ/ML / Weight Sodium 109.091 Chloride kg, Total 0.103 Volume: MEQ/ML / 1,000, Sodium Start Lactate date: 0.028 01/11/17 MEQ/ML 5:08:00 Injectable CDT, Solution Duration: 30 day, Stop date: 02/10/17 5:07:00 CDT Insulin, No Notes: Memoria Aspart, 01-11 Roll in l Human 10:08: palms of [place] 00 hands gently; Do not shake vigorously . (Same as: NovoLOG) "single patient use only" WASTE: F/P - Black; E - [employer] Trash Bin Stable for 28 days at room temperatur e. Expires in days from ____Date Albuterol No Notes: Memori a 0.833 MG/ML 01-11 (Same as: l / :08: Duone) [place] Ipratropium 00 [place] 0.167 MG/ML Inhalant Solution albuterol No Notes: Memori a 90 mcg/inh 01-11 Same as: l inhalation 10:08: Ventolin Her lawson aerosol 00 HFA WASTE: Aerosol - Return to Pharmacy Calcium 2017-0 No 1,000 mL, Memor ia Chloride 01-11 Rate: 25 l 0.0014 10:08: ml/hr, Kush MEQ/ML / 00 Infuse Potassium over: 40 Chloride hr, Route: 0.004 IV, Dosing MEQ/ML / Weight Sodium 109.091 Chloride kg, Total 0.103 Volume: MEQ/ML / 1,000, Sodium Start Lactate date: 0.028 01/11/17 MEQ/ML 5:08:00 Injectable CDT, Solution Duration: 30 day, Stop date: 02/10/17 5:07:00 CDT Insulin, No Notes: Memoria Aspart, 01-11 Roll in l Human 10:08: palms of [place] 00 hands gently; Do not shake vigorously . (Same as: NovoLOG) "single patient use only" WASTE: F/P - Black; E - [employer] Trash Bin Stable for 28 days at room temperatur e. Expires in days from ____Date Albuterol No Notes: Memori a 0.833 MG/ML 01-11 (Same as: l / 10:08: Duoneb) [place] Ipratropium 00 [place] 0.167 MG/ML Inhalant Solution albuterol No Notes: Memori a 90 mcg/inh 01-11 Same as: l inhalation 10:08: Ventolin Her lawson aerosol 00 HFA WASTE: Aerosol - Return to Pharmacy Calcium No 1,000 mL, Memor ia Chloride 01-11 Rate: 25 l 0.0014 10:08: ml/hr, [place] MEQ/ML / 00 Infuse Potassium over: 40 Chloride hr, Route: 0.004 IV, Dosing MEQ/ML / Weight Sodium 109.091 Chloride kg, Total 0.103 Volume: MEQ/ML / 1,000, Sodium Start Lactate date: 0.028 01/11/17 MEQ/ML 5:08:00 Injectable CDT, Solution Duration: 30 day, Stop date: 02/10/17 5:07:00 CDT Insulin, No Notes: Memoria Aspart, 01-11 Roll in l Human 10:08: [place] of [place] 00 hands gently; Do not shake vigorously . (Same as: NovoLOG) "single patient use only" WASTE: F/P - Black; E - Municipal Trash Bin Stable for 28 days at room temperatur e. Expires in days from ____Date Albuterol No Notes: Memori a 0.833 MG/ML 01-11 (Same as: l / 10:08: Duoneb) [place] Ipratropium 00 [place] 0.167 MG/ML Inhalant Solution albuterol No Notes: Memori a 90 mcg/inh 01-11 Same as: l inhalation 10:08: Ventolin Her lawson aerosol 00 HFA WASTE: Aerosol - Return to Pharmacy Calcium No 1,000 mL, Memor ia Chloride 01-11 Rate: 25 l 0.0014 10:08: ml/hr, [place] MEQ/ML / 00 Infuse Potassium over: 40 Chloride hr, Route: 0.004 IV, Dosing MEQ/ML / Weight Sodium 109.091 Chloride kg, Total 0.103 Volume: MEQ/ML / 1,000, Sodium Start Lactate date: 0.028 01/11/17 MEQ/ML 5:08:00 Injectable CDT, Solution Duration: 30 day, Stop date: 02/10/17 5:07:00 CDT Insulin, No Notes: Memoria Aspart, 01-11 Roll in l Human 10:08: palms of [place] 00 hands gently; Do not shake vigorously . (Same as: NovoLOG) "single patient use only" WASTE: F/P - Black; E - Municipal Trash Bin Stable for 28 days at room temperatur e. Expires in days from ____Date Albuterol No Notes: Memori a 0.833 MG/ML 01-11 (Same as: l / 10:08: Duoneb) [place] Ipratropium 00 [place] 0.167 MG/ML Inhalant Solution albuterol No Notes: Memori a 90 mcg/inh 01-11 Same as: l inhalation 10:08: Ventolin Her lawson aerosol 00 HFA WASTE: Aerosol - Return to Pharmacy Calcium No 1,000 mL, Memor ia Chloride 01-11 Rate: 25 l 0.0014 10:08: ml/hr, [place] MEQ/ML / 00 Infuse Potassium over: 40 Chloride hr, Route: 0.004 IV, Dosing MEQ/ML / Weight Sodium 109.091 Chloride kg, Total 0.103 Volume: MEQ/ML / 1,000, Sodium Start Lactate date: 0.028 01/11/17 MEQ/ML 5:08:00 Injectable CDT, Solution Duration: 30 day, Stop date: 02/10/17 5:07:00 CDT Insulin, No Notes: Memoria Aspart, 01-11 Roll in l Human 10:08: palms of [place] 00 hands gently; Do not shake vigorously . (Same as: NovoLOG) "single patient use only" WASTE: F/P - Black; E - Municipal Trash Bin Stable for 28 days at room temperatur e. Expires in days from ____Date Albuterol No Notes: Memori a 0.833 MG/ML 01-11 (Same as: l / 10:08: Duoneb) [place] Ipratropium 00 [place] 0.167 MG/ML Inhalant Solution albuterol No Notes: Memori a 90 mcg/inh 01-11 Same as: l inhalation 10:08: Ventolin Her [place] aerosol 00 HFA WASTE: Aerosol - Return to Pharmacy Calcium No 1,000 mL, Memor ia Chloride 01-11 Rate: 25 l 0.0014 10:08: ml/hr, [place] MEQ/ML / 00 Infuse Potassium over: 40 Chloride hr, Route: 0.004 IV, Dosing MEQ/ML / Weight Sodium 109.091 Chloride kg, Total 0.103 Volume: MEQ/ML / 1,000, Sodium Start Lactate date: 0.028 01/11/17 MEQ/ML 5:08:00 Injectable CDT, Solution Duration: 30 day, Stop date: 02/10/17 5:07:00 CDT Insulin, No Notes: Memoria Aspart, 8 Roll in l Human 10:08: palms of [place] 00 hands gently; Do not shake vigorously . (Same as: NovoLOG) "single patient use only" WASTE: F/P - Black; E - Municipal Trash Bin Stable for 28 days at room temperatur e. Expires in days from ____Date Albuterol No Notes: Memori a 0.833 MG/ML 01-11 (Same as: l / 10:08: Duoneb) [place] Ipratropium 00 [place] 0.167 MG/ML Inhalant Solution albuterol No Notes: Memori a 90 mcg/inh 01-11 Same as: l inhalation 10:08: Ventolin Her [place] aerosol 00 HFA WASTE: Aerosol - Return to Pharmacy Calcium No 1,000 mL, Memor ia Chloride 01-11 Rate: 25 l 0.0014 10:08: ml/hr, [place] MEQ/ML / 00 Infuse Potassium over: 40 Chloride hr, Route: 0.004 IV, Dosing MEQ/ML / Weight Sodium 109.091 Chloride kg, Total 0.103 Volume: MEQ/ML / 1,000, Sodium Start Lactate date: 0.028 01/11/17 MEQ/ML 5:08:00 Injectable CDT, Solution Duration: 30 day, Stop date: 02/10/17 5:07:00 CDT Insulin, No Notes: Memoria Aspart, 01-11 Roll in l Human 10:08: palms of [place] 00 hands gently; Do not shake vigorously . (Same as: NovoLOG) "single patient use only" WASTE: F/P - Black; E - Municipal Trash Bin Stable for 28 days at room temperatur e. Expires in days from ____Date Albuterol No Notes: Memori a 0.833 MG/ML 01-11 (Same as: l / 10:08: Duoneb) [place] Ipratropium 00 [place] 0.167 MG/ML Inhalant Solution albuterol No Notes: Memori a 90 mcg/inh 01-11 Same as: l inhalation 10:08: Ventolin Her [place] aerosol 00 HFA WASTE: Aerosol - Return to Pharmacy Calcium No 1,000 mL, Memor ia Chloride 01-11 Rate: 25 l 0.0014 10:08: ml/hr, [place] MEQ/ML / 00 Infuse Potassium over: 40 Chloride hr, Route: 0.004 IV, Dosing MEQ/ML / Weight Sodium 109.091 Chloride kg, Total 0.103 Volume: MEQ/ML / 1,000, Sodium Start Lactate date: 0.028 01/11/17 MEQ/ML 5:08:00 Injectable CDT, Solution Duration: 30 day, Stop date: 02/10/17 5:07:00 CDT Insulin, No Notes: Memoria Aspart, 01-11 Roll in l Human 10:08: palms of [place] 00 hands gently; Do not shake vigorously . (Same as: NovoLOG) "single patient use only" WASTE: F/P - Black; E - Municipal Trash Bin Stable for 28 days at room temperatur e. Expires in days from ____Date Albuterol No Notes: Memori a 0.833 MG/ML 01-11 (Same as: l / 10:08: Duoneb) [place] Ipratropium 00 [place] 0.167 MG/ML Inhalant Solution albuterol No Notes: Memori a 90 mcg/inh 01-11 Same as: l inhalation 10:08: Ventolin Her [place] aerosol 00 HFA WASTE: Aerosol - Return to Pharmacy Calcium No 1,000 mL, Memor ia Chloride 01-11 Rate: 25 l 0.0014 10:08: ml/hr, [place] MEQ/ML / 00 Infuse Potassium over: 40 Chloride hr, Route: 0.004 IV, Dosing MEQ/ML / Weight Sodium 109.091 Chloride kg, Total 0.103 Volume: MEQ/ML / 1,000, Sodium Start Lactate date: 0.028 01/11/17 MEQ/ML 5:08:00 Injectable CDT, Solution Duration: 30 day, Stop date: 02/10/17 5:07:00 CDT Insulin, No Notes: Memoria Aspart, 808 Roll in l Human 10:08: palms of [place] 00 hands gently; Do not shake vigorously . (Same as: NovoLOG) "single patient use only" WASTE: F/P - Black; E - Municipal Trash Bin Stable for 28 days at room temperatur e. Expires in days from ____Date Albuterol No Notes: Memori a 0.833 MG/ML 01-11 (Same as: l :08: Duone) [place] Ipratropium 00 [place] 0.167 MG/ML Inhalant Solution albuterol No Notes: Memori a 90 mcg/inh 01-11 Same as: l inhalation 10:08: Ventolin Her [place] aerosol HFA WASTE: Aerosol - Return to Pharmacy Calcium No 1,000 mL, Memor ia Chloride 01-11 Rate: 25 l 0.0014 10:08: ml/hr, [place] MEQ/ML / 00 Infuse Potassium over: 40 Chloride hr, Route: 0.004 IV, Dosing MEQ/ML / Weight Sodium 109.091 Chloride kg, Total 0.103 Volume: MEQ/ML / 1,000, Sodium Start Lactate date: 0.028 01/11/17 MEQ/ML 5:08:00 Injectable CDT, Solution Duration: 30 day, Stop date: 02/10/17 5:07:00 CDT Insulin, No Notes: Memoria Aspart, 01-11 Roll in l Human 10:08: palms of [place] 00 hands gently; Do not shake vigorously . (Same as: NovoLOG) "single patient use only" WASTE: F/P - Black; E - Municipal Trash Bin Stable for 28 days at room temperatur e. Expires in days from ____Date Albuterol No Notes: Memori a 0.833 MG/ML 01-11 (Same as: l :: Duone) [place] Ipratropium 00 [place] 0.167 MG/ML Inhalant Solution albuterol No Notes: Memori a 90 mcg/inh 01-11 Same as: l inhalation 10:08: Ventolin Her [place] aerosol HFA WASTE: Aerosol - Return to Pharmacy Calcium No 1,000 mL, Memor ia Chloride 01-11 Rate: 25 l 0.0014 10:08: ml/hr, [place] MEQ/ML / 00 Infuse Potassium over: 40 Chloride hr, Route: 0.004 IV, Dosing MEQ/ML / Weight Sodium 109.091 Chloride kg, Total 0.103 Volume: MEQ/ML / 1,000, Sodium Start Lactate date: 0.028 01/11/17 MEQ/ML 5:08:00 Injectable CDT, Solution Duration: 30 day, Stop date: 02/10/17 5:07:00 CDT Insulin, No Notes: Memoria Aspart, 01-11 Roll in l Human 10:08: palms of [place] 00 hands gently; Do not shake vigorously . (Same as: NovoLOG) "single patient use only" WASTE: F/P - Black; E - Municipal Trash Bin Stable for 28 days at room temperatur e. Expires in days from ____Date Albuterol No Notes: Memori a 0.833 MG/ML 01-11 (Same as: l / 10:08: Duoneb) [place] Ipratropium 00 [place] 0.167 MG/ML Inhalant Solution albuterol No Notes: Memori a 90 mcg/inh 01-11 Same as: l inhalation 10:08: Ventolin Her [place] aerosol 00 HFA WASTE: Aerosol - Return to Pharmacy Calcium No 1,000 mL, Memor ia Chloride 01-11 Rate: 25 l 0.0014 10:08: ml/hr, [place] MEQ/ML / 00 Infuse Potassium over: 40 Chloride hr, Route: 0.004 IV, Dosing MEQ/ML / Weight Sodium 109.091 Chloride kg, Total 0.103 Volume: MEQ/ML / 1,000, Sodium Start Lactate date: 0.028 01/11/17 MEQ/ML 5:08:00 Injectable CDT, Solution Duration: 30 day, Stop date: 02/10/17 5:07:00 CDT Insulin, No Notes: Memoria Aspart, 808 Roll in l Human 10:08: palms of [place] 00 hands gently; Do not shake vigorously . (Same as: NovoLOG) "single patient use only" WASTE: F/P - Black; E - Municipal Trash Bin Stable for 28 days at room temperatur e. Expires in days from ____Date Albuterol No Notes: Memori a 0.833 MG/ML 01-11 (Same as: :08: Duone) [place] Ipratropium 00 [place] 0.167 MG/ML Inhalant Solution albuterol No Notes: Memori a 90 mcg/inh 01-11 Same as: l inhalation 10:08: Ventolin Her [place] aerosol HFA WASTE: Aerosol - Return to Pharmacy Calcium No 1,000 mL, Memor ia Chloride 01-11 Rate: 25 l 0.0014 10:08: ml/hr, [place] MEQ/ML / 00 Infuse Potassium over: 40 Chloride hr, Route: 0.004 IV, Dosing MEQ/ML / Weight Sodium 109.091 Chloride kg, Total 0.103 Volume: MEQ/ML / 1,000, Sodium Start Lactate date: 0.028 01/11/17 MEQ/ML 5:08:00 Injectable CDT, Solution Duration: 30 day, Stop date: 02/10/17 5:07:00 CDT Insulin, No Notes: Memoria Aspart, 01-11 Roll in l Human 10:08: palms of [place] 00 hands gently; Do not shake vigorously . (Same as: NovoLOG) "single patient use only" WASTE: F/P - Black; E - Municipal Trash Bin Stable for 28 days at room temperatur e. Expires in days from ____Date Albuterol No Notes: Memori a 0.833 MG/ML 01-11 (Same as: :08: Sethone) [place] Ipratropium 00 [place] 0.167 MG/ML Inhalant Solution albuterol No Notes: Memori a 90 mcg/inh 01-11 Same as: l inhalation 10:08: Ventolin Her [place] aerosol HFA WASTE: Aerosol - Return to Pharmacy Calcium No 1,000 mL, Memor ia Chloride 01-11 Rate: 25 l 0.0014 10:08: ml/hr, [place] MEQ/ML / 00 Infuse Potassium over: 40 Chloride hr, Route: 0.004 IV, Dosing MEQ/ML / Weight Sodium 109.091 Chloride kg, Total 0.103 Volume: MEQ/ML / 1,000, Sodium Start Lactate date: 0.028 17 MEQ/ML 5:08:00 Injectable CDT, Solution Duration: 30 day, Stop date: 02/10/17 5:07:00 CDT Insulin, No Notes: Memoria Aspart, 8 Roll in l Human 10:08: palms of [place] 00 hands gently; Do not shake vigorously . (Same as: NovoLOG) "single patient use only" WASTE: F/P - Black; E - Municipal Trash Bin Stable for 28 days at room temperatur e. Expires in days from ____Date Albuterol No Notes: Memori a 0.833 MG/ML 01-11 (Same as: l / 10:08: Duoneb) [place] Ipratropium 00 [place] 0.167 MG/ML Inhalant Solution albuterol No Notes: Memori a 90 mcg/inh 01-11 Same as: l inhalation 10:08: Ventolin Her [place] aerosol 00 HFA WASTE: Aerosol - Return to Pharmacy Calcium No 1,000 mL, Memor ia Chloride 01-11 Rate: 25 l 0.0014 10:08: ml/hr, [place] MEQ/ML / 00 Infuse Potassium over: 40 Chloride hr, Route: 0.004 IV, Dosing MEQ/ML / Weight Sodium 109.091 Chloride kg, Total 0.103 Volume: MEQ/ML / 1,000, Sodium Start Lactate date: 0.028 17 MEQ/ML 5:08:00 Injectable CDT, Solution Duration: 30 day, Stop date: 02/10/17 5:07:00 CDT Insulin, No Notes: Memoria Aspart, 808 Roll in l Human 10:08: [place] of [place] 00 hands gently; Do not shake vigorously . (Same as: NovoLOG) "single patient use only" WASTE: F/P - Black; E - Municipal Trash Bin Stable for 28 days at room temperatur e. Expires in days from ____Date Albuterol No Notes: Memori a 0.833 MG/ML 01-11 (Same as: l / 10:08: Duoneb) [place] Ipratropium 00 [place] 0.167 MG/ML Inhalant Solution albuterol No Notes: Memori a 90 mcg/inh 01-11 Same as: l inhalation 10:08: Ventolin Her [place] aerosol 00 HFA WASTE: Aerosol - Return to Pharmacy [place] No 1,000 mL, Memor ia Chloride 01-11 Rate: 25 l 0.0014 10:08: ml/hr, [place] MEQ/ML / 00 Infuse Potassium over: 40 Chloride hr, Route: 0.004 IV, Dosing MEQ/ML / Weight Sodium 109.091 Chloride kg, Total 0.103 Volume: MEQ/ML / 1,000, Sodium Start Lactate date: 0.028 01/11/17 MEQ/ML 5:08:00 Injectable CDT, Solution Duration: 30 day, Stop date: 02/10/17 5:07:00 CDT Insulin, No Notes: Memoria Aspart, 01-11 Roll in l Human 10:08: [place] of [place] 00 hands gently; Do not shake vigorously . (Same as: NovoLOG) "single patient use only" WASTE: F/P - Black; E - Municipal Trash Bin Stable for 28 days at room temperatur e. Expires in days from ____Date Albuterol No Notes: Memori a 0.833 MG/ML 01-11 (Same as: l / 10:08: Duoneb) [place] Ipratropium 00 [place] 0.167 MG/ML Inhalant Solution albuterol No Notes: Memori a 90 mcg/inh 01-11 Same as: l inhalation 10:08: Ventolin Her [place] aerosol 00 HFA WASTE: Aerosol - Return to Pharmacy Calcium No 1,000 mL, Memor ia Chloride 01-11 Rate: 25 l 0.0014 10:08: ml/hr, [place] MEQ/ML / 00 Infuse Potassium over: 40 Chloride hr, Route: 0.004 IV, Dosing MEQ/ML / Weight Sodium 109.091 Chloride kg, Total 0.103 Volume: MEQ/ML / 1,000, Sodium Start Lactate date: 0.028 01/11/17 MEQ/ML 5:08:00 Injectable CDT, Solution Duration: 30 day, Stop date: 02/10/17 5:07:00 CDT Insulin, No Notes: Memoria Aspart, 01-11 Roll in l Human 10:08: palms of [place] 00 hands gently; Do not shake vigorously . (Same as: NovoLOG) "single patient use only" WASTE: F/P - Black; E - Municipal Trash Bin Stable for 28 days at room temperatur e. Expires in days from ____Date Albuterol No Notes: Memori a 0.833 MG/ML 01-11 (Same as: l / 10:08: Duoneb) [place] Ipratropium 00 [place] 0.167 MG/ML Inhalant Solution albuterol No Notes: Memori a 90 mcg/inh 01-11 Same as: l inhalation 10:08: Ventolin Her [place] aerosol 00 HFA WASTE: Aerosol - Return to Pharmacy Calcium No 1,000 mL, Memor ia Chloride 01-11 Rate: 25 l 0.0014 10:08: ml/hr, [place] MEQ/ML / 00 Infuse Potassium over: 40 Chloride hr, Route: 0.004 IV, Dosing MEQ/ML / Weight Sodium 109.091 Chloride kg, Total 0.103 Volume: MEQ/ML / 1,000, Sodium Start Lactate date: 0.028 01/11/17 MEQ/ML 5:08:00 Injectable CDT, Solution Duration: 30 day, Stop date: 02/10/17 5:07:00 CDT Insulin, No Notes: Memoria Aspart, 01-11 Roll in l Human 10:08: [place] of [place] 00 hands gently; Do not shake vigorously . (Same as: NovoLOG) "single patient use only" WASTE: F/P - Black; E - Municipal Trash Bin Stable for 28 days at room temperatur e. Expires in days from ____Date Albuterol No Notes: Memori a 0.833 MG/ML 01-11 (Same as: l / 10:08: Duone) [place] Ipratropium 00 [place] 0.167 MG/ML Inhalant Solution albuterol No Notes: Memori a 90 mcg/inh 01-11 Same as: l inhalation 10:08: Ventolin Her [place] aerosol 00 HFA WASTE: Aerosol - Return to Pharmacy [place] No 1,000 mL, Memor ia Chloride 01-11 Rate: 25 l 0.0014 10:08: ml/hr, [place] MEQ/ML / 00 Infuse Potassium over: 40 Chloride hr, Route: 0.004 IV, Dosing MEQ/ML / Weight Sodium 109.091 Chloride kg, Total 0.103 Volume: MEQ/ML / 1,000, Sodium Start Lactate date: 0.028 01/11/17 MEQ/ML 5:08:00 Injectable CDT, Solution Duration: 30 day, Stop date: 02/10/17 5:07:00 CDT Insulin, No Notes: Memoria Aspart, 01-11 Roll in l Human 10:08: [place] of [place] 00 hands gently; Do not shake vigorously . (Same as: NovoLOG) "single patient use only" WASTE: F/P - Black; E - Municipal Trash Bin Stable for 28 days at room temperatur e. Expires in days from ____Date Albuterol No Notes: Memori a 0.833 MG/ML 01-11 (Same as: l / :: Sethone) [place] Ipratropium 00 [place] 0.167 MG/ML Inhalant Solution albuterol No Notes: Memori a 90 mcg/inh 01-11 Same as: l inhalation 10:08: Ventolin Her [place] aerosol HFA WASTE: Aerosol - Return to Pharmacy Calcium No 1,000 mL, Memor ia Chloride 01-11 Rate: 25 l 0.0014 10:08: ml/hr, [place] MEQ/ML / 00 Infuse Potassium over: 40 Chloride hr, Route: 0.004 IV, Dosing MEQ/ML / Weight Sodium 109.091 Chloride kg, Total 0.103 Volume: MEQ/ML / 1,000, Sodium Start Lactate date: 0.028 01/11/17 MEQ/ML 5:08:00 Injectable CDT, Solution Duration: 30 day, Stop date: 02/10/17 5:07:00 CDT Insulin, No Notes: Memoria Aspart, 01-11 Roll in l Human 10:08: palms of [place] 00 hands gently; Do not shake vigorously . (Same as: NovoLOG) "single patient use only" WASTE: F/P - Black; E - Municipal Trash Bin Stable for 28 days at room temperatur e. Expires in days from ____Date Albuterol No Notes: Memori a 0.833 MG/ML 01-11 (Same as: l / :08: Duoneb) [place] Ipratropium 00 [place] 0.167 MG/ML Inhalant Solution albuterol No Notes: Memori a 90 mcg/inh 01-11 Same as: l inhalation 10:08: Ventolin Her [place] aerosol 00 HFA WASTE: Aerosol - Return to Pharmacy Cal[place] No 1,000 mL, Memor ia Chloride 01-11 Rate: 25 l 0.0014 10:08: ml/hr, [place] MEQ/ML / 00 Infuse Potassium over: 40 Chloride hr, Route: 0.004 IV, Dosing MEQ/ML / Weight Sodium 109.091 Chloride kg, Total 0.103 Volume: MEQ/ML / 1,000, Sodium Start Lactate date: 0.028 01/11/17 MEQ/ML 5:08:00 Injectable CDT, Solution Duration: 30 day, Stop date: 02/10/17 5:07:00 CDT Insulin, No Notes: Memoria Aspart, 01-11 Roll in l Human 10:08: [place] of [place] 00 hands gently; Do not shake vigorously . (Same as: NovoLOG) "single patient use only" WASTE: F/P - Black; E - Municipal Trash Bin Stable for 28 days at room temperatur e. Expires in days from ____Date Albuterol No Notes: Memori a 0.833 MG/ML 01-11 (Same as: l / :08: Duoneb) [place] Ipratropium 00 [place] 0.167 MG/ML Inhalant Solution albuterol No Notes: Memori a 90 mcg/inh 01-11 Same as: l inhalation 10:08: Ventolin Her [place] aerosol HFA WASTE: Aerosol - Return to Pharmacy [place] No 1,000 mL, Memor ia Chloride 01-11 Rate: 25 l 0.0014 10:08: ml/hr, [place] MEQ/ML / 00 Infuse Potassium over: 40 Chloride hr, Route: 0.004 IV, Dosing MEQ/ML / Weight Sodium 109.091 Chloride kg, Total 0.103 Volume: MEQ/ML / 1,000, Sodium Start Lactate date: 0.028 01/11/17 MEQ/ML 5:08:00 Injectable CDT, Solution Duration: 30 day, Stop date: 02/10/17 5:07:00 CDT Insulin, No Notes: Memoria Aspart, 01-11 Roll in l Human 10:08: palms of [place] 00 hands gently; Do not shake vigorously . (Same as: NovoLOG) "single patient use only" WASTE: F/P - Black; E - Municipal Trash Bin Stable for 28 days at room temperatur e. Expires in days from ____Date Albuterol No Notes: Memori a 0.833 MG/ML 01-11 (Same as: l / 10:08: Duoneb) [place] Ipratropium 00 [place] 0.167 MG/ML Inhalant Solution albuterol No Notes: Memori a 90 mcg/inh 01-11 Same as: l inhalation 10:08: Ventolin Her [place] aerosol HFA WASTE: Aerosol - Return to Pharmacy [place] No 1,000 mL, Memor ia Chloride 01-11 Rate: 25 l 0.0014 10:08: ml/hr, [place] MEQ/ML / 00 Infuse Potassium over: 40 Chloride hr, Route: 0.004 IV, Dosing MEQ/ML / Weight Sodium 109.091 Chloride kg, Total 0.103 Volume: MEQ/ML / 1,000, Sodium Start Lactate date: 0.028 01/11/17 MEQ/ML 5:08:00 Injectable CDT, Solution Duration: 30 day, Stop date: 02/10/17 5:07:00 CDT amLODIPine 2017-0 Yes 10 mg = 1 Me moria 10 mg oral 7-25 tab, PO, l tablet 14:59: Daily, 0 [place] 00 Refill(s) Vitamin B12 2017-0 Yes PO, Daily, Memoria 7-25 0 l 14:59: Refill(s) amLODIPine 2017-0 Yes 10 mg = 1 Me mor[place] 10 mg oral 7-25 tab, PO, l tablet 14:59: Daily, 0 [place] 00 Refill(s) Vitamin B12 2017-0 Yes PO, Daily, Memoria 7-25 0 l 14:59: Refill(s) amLODIPine 2017-0 Yes 10 mg = 1 Me [place] 10 mg oral 7-25 tab, PO, l tablet 14:59: Daily, 0 [place] 00 Refill(s) Vitamin B12 2017-0 Yes PO, Daily, Memoria 7-25 0 l 14:59: Refill(s) amLODIPine 2017-0 Yes 10 mg = 1 Me [place] 10 mg oral 7-25 tab, PO, l tablet 14:59: Daily, 0 [place] 00 Refill(s) Vitamin B12 2017-0 Yes PO, Daily, Memoria 7-25 0 l 14:59: Refill(s) amLODIPine 2017-0 Yes 10 mg = 1 Me mor[place] 10 mg oral 7-25 tab, PO, l tablet 14:59: Daily, 0 [place] 00 Refill(s) Vitamin B12 2017-0 Yes PO, Daily, Memoria 7-25 0 l 14:59: Refill(s) amLODIPine 2017-0 Yes 10 mg = 1 Me [place] 10 mg oral 7-25 tab, PO, l tablet 14:59: Daily, 0 [place] 00 Refill(s) Vitamin B12 2017-0 Yes PO, Daily, Memoria 7-25 0 l 14:59: Refill(s) amLODIPine 2017-0 Yes 10 mg = 1 Me mor[place] 10 mg oral 7-25 tab, PO, l tablet 14:59: Daily, 0 [place] 00 Refill(s) Vitamin B12 2017-0 Yes PO, Daily, Memoria 7-25 0 l 14:59: Refill(s) amLODIPine 2017-0 Yes 10 mg = 1 Me [place] 10 mg oral 7-25 tab, PO, l tablet 14:59: Daily, 0 [place] 00 Refill(s) Vitamin B12 2017-0 Yes PO, Daily, Memoria 7-25 0 l 14:59: Refill(s) amLODIPine 2017-0 Yes 10 mg = 1 Me [place] 10 mg oral 7-25 tab, PO, l tablet 14:59: Daily, 0 [place] 00 Refill(s) Vitamin B12 2017-0 Yes PO, Daily, Memoria 7-25 0 l 14:59: Refill(s) amLODIPine 2017 Yes 10 mg = 1 Me [place] 10 mg oral 7-25 tab, PO, l tablet 14:59: Daily, 0 [place] 00 Refill(s) Vitamin B12 2017-0 Yes PO, Daily, Memoria 7-25 0 l 14:59: Refill(s) amLODIPine 2017- Yes 10 mg = 1 Me [place] 10 mg oral 7-25 tab, PO, l tablet 14:59: Daily, 0 [place] 00 Refill(s) Vitamin B12 2017-0 Yes PO, Daily, Memoria 7-25 0 l 14:59: Refill(s) amLODIPine Yes 10 mg = 1 Me mor[place] 10 mg oral 7-25 tab, PO, l tablet 14:59: Daily, 0 Refill(s) Vitamin B12 2017-0 Yes PO, Daily, Memoria 7-25 0 l 14:59: Refill(s) amLODIPine 2017- Yes 10 mg = 1 [place] 10 mg oral 7-25 tab, PO, l tablet 14:59: Daily, 0 Refill(s) Vitamin B12 2017-0 Yes PO, Daily, Memoria 7-25 0 l 14:59: Refill(s) amLODIPine 2017-0 Yes 10 mg = 1 Me [place] 10 mg oral 7-25 tab, PO, l tablet 14:59: Daily, 0 Refill(s) Vitamin B12 2017-0 Yes PO, Daily, Memoria 7-25 0 l 14:59: Refill(s) amLODIPine 2017-0 Yes 10 mg = 1 [place] 10 mg oral 7-25 tab, PO, l tablet 14:59: Daily, 0 [place] 00 Refill(s) Vitamin B12 2017-0 Yes PO, Daily, Memoria 7-25 0 l 14:59: Refill(s) amLODIPine 2017-0 Yes 10 mg = 1 Me mor[place] 10 mg oral 7-25 tab, PO, l tablet 14:59: Daily, 0 [place] 00 Refill(s) Vitamin B12 2017-0 Yes PO, Daily, Memoria 7-25 0 l 14:59: Refill(s) amLODIPine 2017 Yes 10 mg = 1 Me [place] 10 mg oral 7-25 tab, PO, l tablet 14:59: Daily, 0 [place] 00 Refill(s) Vitamin B12 2017-0 Yes PO, Daily, Memoria 7-25 0 l 14:59: Refill(s) amLODIPine Yes 10 mg = 1 Me [place] 10 mg oral 7-25 tab, PO, l tablet 14:59: Daily, 0 Refill(s) Vitamin B12 2016-0 Yes PO, Daily, Memoria 7-25 0 l 14:59: Refill(s) amLODIPine 0 Yes 10 mg = 1 [place] 10 mg oral 7-25 tab, PO, l tablet 14:59: Daily, 0 Refill(s) Vitamin B12 2017-0 Yes PO, Daily, Memoria 7-25 0 l 14:59: Refill(s) amLODIPine 2017- Yes 10 mg = 1 Me [place] 10 mg oral 7-25 tab, PO, l tablet 14:59: Daily, 0 Refill(s) Vitamin B12 2017-0 Yes PO, Daily, Memoria 7-25 0 l 14:59: Refill(s) amLODIPine 2017-0 Yes 10 mg = 1 Me [place] 10 mg oral 7-25 tab, PO, l tablet 14:59: Daily, 0 Refill(s) Vitamin B12 2017-0 Yes PO, Daily, [facility]oria 7-25 0 l 14:59: Refill(s) amLODIPine 2017-0 Yes 10 mg = 1 Me [place] 10 mg oral 7-25 tab, PO, l tablet 14:59: Daily, 0 [place] 00 Refill(s) Vitamin B12 2017-0 Yes PO, Daily, Memoria 7-25 0 l 14:59: Refill(s) amLODIPine 2017- Yes 10 mg = 1 Me [place] 10 mg oral 7-25 tab, PO, l tablet 14:59: Daily, 0 Refill(s) Vitamin B12 2017-0 Yes PO, Daily, [facility]oria 7-25 0 l 14:59: Refill(s) amLODIPine 2017- Yes 10 mg = 1 Me [place] 10 mg oral 7-25 tab, PO, l tablet 14:59: Daily, 0 Refill(s) Vitamin B12 2017-0 Yes PO, Daily, Memoria 7-25 0 l 14:59: Refill(s) amLODIPine Yes 10 mg = 1 Me [place] 10 mg oral 7-25 tab, PO, l tablet 14:59: Daily, 0 Refill(s) Vitamin B12 2017-0 Yes PO, Daily, Memoria 7-25 0 l 14:59: Refill(s) amLODIPine 2017-0 Yes 10 mg = 1 Me [place] 10 mg oral 7-25 tab, PO, l tablet 14:59: Daily, 0 Refill(s) Vitamin B12 2017-0 Yes PO, Daily, Memoria 7-25 0 l 14:59: Refill(s) amLODIPine 2017-0 Yes 10 mg = 1 Me moria 10 mg oral 7-25 tab, PO, l tablet 14:59: Daily, 0 Refill(s) Vitamin B12 2017-0 Yes PO, Daily, Memoria 7-25 0 l 14:59: Refill(s) amLODIPine 2017-0 Yes 10 mg = 1 Me moria 10 mg oral 7-25 tab, PO, l tablet 14:59: Daily, 0 Refill(s) Vitamin B12 2017-0 Yes PO, Daily, Memoria 7-25 0 l 14:59: Refill(s) amLODIPine 2017-0 Yes 10 mg = 1 Me moria 10 mg oral 7-25 tab, PO, l tablet 14:59: Daily, 0 Refill(s) Vitamin B12 2017-0 Yes PO, Daily, Memoria 7-25 0 l 14:59: Refill(s) amLODIPine 2017- Yes 10 mg = 1 Me moria 10 mg oral 7-25 tab, PO, l tablet 14:59: Daily, 0 Refill(s) Vitamin B12 2017-0 Yes PO, Daily, Memoria 7-25 0 l 14:59: Refill(s) amLODIPine 2017- Yes 10 mg = 1 Me moria 10 mg oral 7-25 tab, PO, l tablet 14:59: Daily, 0 [place] 00 Refill(s) Vitamin B12 2017-0 Yes PO, Daily, Memoria 7-25 0 l 14:59: Refill(s) amLODIPine Yes 10 mg = 1 Me moria 10 mg oral 7-25 tab, PO, l tablet 14:59: Daily, 0 Refill(s) Vitamin B12 2017-0 Yes PO, Daily, Memoria 7-25 0 l 14:59: Refill(s) amLODIPine Yes 10 mg = 1 Me moria 10 mg oral 7-25 tab, PO, l tablet 14:59: Daily, 0 Refill(s) Vitamin B12 2017-0 Yes PO, Daily, Memoria 7-25 0 l 14:59: Refill(s) amLODIPine 20170 Yes 10 mg = 1 Me moria 10 mg oral 7-25 tab, PO, l tablet 14:59: Daily, 0 Refill(s) Vitamin B12 2017-0 Yes PO, Daily, Memoria 7-25 0 l 14:59: Refill(s) amLODIPine 20170 Yes 10 mg = 1 Me moria 10 mg oral 7-25 tab, PO, l tablet 14:59: Daily, 0 Refill(s) Vitamin B12 2017-0 Yes PO, Daily, Memoria 7-25 0 l 14:59: Refill(s) amLODIPine Yes 10 mg = 1 Me moria 10 mg oral 7-25 tab, PO, l tablet 14:59: Daily, 0 Refill(s) Vitamin B12 2017-0 Yes PO, Daily, Memoria 7-25 0 l [...] 7-25 Daily, 0 l Men's 14:58: Refill(s) Kush 00 Fish Oil Yes 1,200 mg = Mem oria 1200 mg 7-25 1 cap, PO, l oral 14:58: Daily, 0 [place] capsule 00 Refill(s) metoprolol Yes 50 mg = 1 Me moria 50 mg oral 7-25 tab, PO, l tablet, 14:58: Bedtime, 0 Herm pedro extended 00 Refill(s) release Centrum Yes 1 tab, PO, Jah jina Silver 7-25 Daily, 0 l Men's 14:58: Refill(s) Kush 00 Fish Oil Yes 1,200 mg = Mem oria 1200 mg 7-25 1 cap, PO, l oral 14:58: Daily, 0 Kush capsule 00 Refill(s) metoprolol Yes 50 mg = 1 Me moria 50 mg oral 7-25 tab, PO, l tablet, 14:58: Bedtime, 0 Herm pedro extended 00 Refill(s) release Centrum Yes 1 tab, PO, Jah jina Silver 7-25 Daily, 0 l Men's 14:58: Refill(s) [place] 00 Fish Oil Yes 1,200 mg = Mem oria 1200 mg 7-25 1 cap, PO, l oral 14:58: Daily, 0 Kush capsule 00 Refill(s) metoprolol Yes 50 mg = 1 Me moria 50 mg oral 7-25 tab, PO, l tablet, 14:58: Bedtime, 0 Herm pedro extended 00 Refill(s) release Centrum Yes 1 tab, PO, Jah jina Silver 7-25 Daily, 0 l Men's 14:58: Refill(s) [place] 00 Fish Oil 2017-0 Yes 1,200 mg = Mem oria 1200 mg 7-25 1 cap, PO, l oral 14:58: Daily, 0 Kush capsule 00 Refill(s) metoprolol Yes 50 mg = 1 Me moria 50 mg oral 7-25 tab, PO, l tablet, 14:58: Bedtime, 0 Herm pedro extended 00 Refill(s) release Centrum Yes 1 tab, PO, Jah jina Silver 7-25 Daily, 0 l Men's 14:58: Refill(s) Kush 00 Fish Oil Yes 1,200 mg = Mem oria 1200 mg 7-25 1 cap, PO, l oral 14:58: Daily, 0 [place] capsule 00 Refill(s) metoprolol Yes 50 mg = 1 Me moria 50 mg oral 7-25 tab, PO, l tablet, 14:58: Bedtime, 0 Herm pedro extended 00 Refill(s) release Centrum Yes 1 tab, PO, Jah jina Silver 7-25 Daily, 0 l Men's 14:58: Refill(s) [place] 00 Fish Oil Yes 1,200 mg = Mem oria 1200 mg 7-25 1 cap, PO, l oral 14:58: Daily, 0 Kush capsule 00 Refill(s) metoprolol Yes 50 mg = 1 Me moria 50 mg oral 7-25 tab, PO, l tablet, 14:58: Bedtime, 0 Herm pedro extended 00 Refill(s) release Centrum Yes 1 tab, PO, Jah jina Silver 7-25 Daily, 0 l Men's 14:58: Refill(s) [place] 00 Fish Oil Yes 1,200 mg = Mem oria 1200 mg 7-25 1 cap, PO, l oral 14:58: Daily, 0 Kush capsule 00 Refill(s) metoprolol Yes 50 mg = 1 Me moria 50 mg oral 7-25 tab, PO, l tablet, 14:58: Bedtime, 0 Herm pedro extended 00 Refill(s) release Centrum Yes 1 tab, PO, Jah jina Silver 7-25 Daily, 0 l Men's 14:58: Refill(s) Kush 00 Fish Oil Yes 1,200 mg = Mem oria 1200 mg 7-25 1 cap, PO, l oral 14:58: Daily, 0 Kush capsule 00 Refill(s) metoprolol Yes 50 mg = 1 Me moria 50 mg oral 7-25 tab, PO, l tablet, 14:58: Bedtime, 0 Herm pedro extended 00 Refill(s) release Centrum Yes 1 tab, PO, Jah jina Silver 7-25 Daily, 0 l Men's 14:58: Refill(s) [place] 00 Fish Oil Yes 1,200 mg = Mem oria 1200 mg 7-25 1 cap, PO, l oral 14:58: Daily, 0 [place] capsule 00 Refill(s) metoprolol Yes 50 mg = 1 Me moria 50 mg oral 7-25 tab, PO, l tablet, 14:58: Bedtime, 0 Herm pedro extended 00 Refill(s) release Centrum Yes 1 tab, PO, Jah jina Silver 7-25 Daily, 0 l Men's 14:58: Refill(s) Kush 00 Fish Oil Yes 1,200 mg = Mem oria 1200 mg 7-25 1 cap, PO, l oral 14:58: Daily, 0 Kush capsule 00 Refill(s) metoprolol Yes 50 mg = 1 Me moria 50 mg oral 7-25 tab, PO, l tablet, 14:58: Bedtime, 0 Herm pedro extended 00 Refill(s) release Centrum Yes 1 tab, PO, Jah jina Silver 7-25 Daily, 0 l Men's 14:58: Refill(s) Kush 00 Fish Oil Yes 1,200 mg = Mem oria 1200 mg 7-25 1 cap, PO, l oral 14:58: Daily, 0 [place] capsule 00 Refill(s) metoprolol Yes 50 mg = 1 Me moria 50 mg oral 7-25 tab, PO, l tablet, 14:58: Bedtime, 0 Herm pedro extended 00 Refill(s) release Fish Oil Yes 1,200 mg = Mem oria 1200 mg 7-25 1 cap, PO, l oral 14:58: Daily, 0 [place] capsule 00 Refill(s) metoprolol Yes 50 mg = 1 Me moria 50 mg oral 7-25 tab, PO, l tablet, 14:58: Bedtime, 0 Herm pedro extended 00 Refill(s) release Centrum Yes 1 tab, PO, Jah jina Silver 7-25 Daily, 0 l Men's 14:58: Refill(s) [place] 00 Centrum Yes 1 tab, PO, Jah jina Silver 7-25 Daily, 0 l Men's 14:58: Refill(s) Kush Fish Oil Yes 1,200 mg = Mem oria 1200 mg 7-25 1 cap, PO, l oral 14:58: Daily, 0 [place] capsule 00 Refill(s) metoprolol Yes 50 mg = 1 Me moria 50 mg oral 7-25 tab, PO, l tablet, 14:58: Bedtime, 0 Herm pedro extended 00 Refill(s) release Centrum Yes 1 tab, PO, Jah jina Silver 7-25 Daily, 0 l Men's 14:58: Refill(s) Kush 00 Fish Oil Yes 1,200 mg = Mem oria 1200 mg 7-25 1 cap, PO, l oral 14:58: Daily, 0 [place] capsule 00 Refill(s) metoprolol Yes 50 mg = 1 Me moria 50 mg oral 7-25 tab, PO, l tablet, 14:58: Bedtime, 0 Herm pedro extended 00 Refill(s) release Centrum Yes 1 tab, PO, Jah jina Silver 7-25 Daily, 0 l Men's 14:58: Refill(s) [place] 00 Fish Oil Yes 1,200 mg = Mem oria 1200 mg 7-25 1 cap, PO, l oral 14:58: Daily, 0 [place] capsule 00 Refill(s) metoprolol Yes 50 mg = 1 Me moria 50 mg oral 7-25 tab, PO, l tablet, 14:58: Bedtime, 0 Herm pedro extended 00 Refill(s) release Centrum Yes 1 tab, PO, Jah jina Silver 7-25 Daily, 0 l Men's 14:58: Refill(s) [place] 00 Fish Oil Yes 1,200 mg = Mem oria 1200 mg 7-25 1 cap, PO, l oral 14:58: Daily, 0 Kush capsule 00 Refill(s) metoprolol Yes 50 mg = 1 Me moria 50 mg oral 7-25 tab, PO, l tablet, 14:58: Bedtime, 0 Herm pdero extended 00 Refill(s) release Centrum Yes 1 tab, PO, Jah jina Silver 7-25 Daily, 0 l Men's 14:58: Refill(s) Kush 00 Fish Oil Yes 1,200 mg = Mem oria 1200 mg 7-25 1 cap, PO, l oral 14:58: Daily, 0 [place] capsule 00 Refill(s) metoprolol Yes 50 mg = 1 Me moria 50 mg oral 7-25 tab, PO, l tablet, 14:58: Bedtime, 0 Herm pedro extended 00 Refill(s) release Centrum Yes 1 tab, PO, Jah jina Silver 7-25 Daily, 0 l Men's 14:58: Refill(s) [place] 00 Fish Oil Yes 1,200 mg = Mem oria 1200 mg 7-25 1 cap, PO, l oral 14:58: Daily, 0 [place] capsule 00 Refill(s) metoprolol Yes 50 mg = 1 Me moria 50 mg oral 7-25 tab, PO, l tablet, 14:58: Bedtime, 0 Herm pedro extended 00 Refill(s) release Centrum Yes 1 tab, PO, Jah jina Silver 7-25 Daily, 0 l Men's 14:58: Refill(s) Kush 00 Fish Oil Yes 1,200 mg = Mem oria 1200 mg 7-25 1 cap, PO, l oral 14:58: Daily, 0 Kush capsule 00 Refill(s) metoprolol Yes 50 mg = 1 Me moria 50 mg oral 7-25 tab, PO, l tablet, 14:58: Bedtime, 0 Herm pedro extended 00 Refill(s) release Centrum Yes 1 tab, PO, Jah jina Silver 7-25 Daily, 0 l Men's 14:58: Refill(s) Kush 00 Fish Oil Yes 1,200 mg = Mem oria 1200 mg 7-25 1 cap, PO, l oral 14:58: Daily, 0 Kush capsule 00 Refill(s) metoprolol Yes 50 mg = 1 Me moria 50 mg oral 7-25 tab, PO, l tablet, 14:58: Bedtime, 0 Herm pedro extended 00 Refill(s) release Centrum Yes 1 tab, PO, Jah jina Silver 7-25 Daily, 0 l Men's 14:58: Refill(s) Kush 00 Fish Oil Yes 1,200 mg = Mem oria 1200 mg 7-25 1 cap, PO, l oral 14:58: Daily, 0 [place] capsule 00 Refill(s) metoprolol Yes 50 mg = 1 Me moria 50 mg oral 7-25 tab, PO, l tablet, 14:58: Bedtime, 0 Herm pedro extended 00 Refill(s) release Centrum Yes 1 tab, PO, Jah jina Silver 7-25 Daily, 0 l Men's 14:58: Refill(s) Kush 00 Fish Oil Yes 1,200 mg = Mem oria 1200 mg 7-25 1 cap, PO, l oral 14:58: Daily, 0 [place] capsule 00 Refill(s) metoprolol Yes 50 mg = 1 Me moria 50 mg oral 7-25 tab, PO, l tablet, 14:58: Bedtime, 0 Herm pedro extended 00 Refill(s) release Centrum Yes 1 tab, PO, Jah jina Silver 7-25 Daily, 0 l Men's 14:58: Refill(s) [place] 00 Fish Oil Yes 1,200 mg = Mem oria 1200 mg 7-25 1 cap, PO, l oral 14:58: Daily, 0 [place] capsule 00 Refill(s) metoprolol Yes 50 mg = 1 Me moria 50 mg oral 7-25 tab, PO, l tablet, 14:58: Bedtime, 0 Herm pedro extended 00 Refill(s) release Centrum Yes 1 tab, PO, Jah jina Silver 7-25 Daily, 0 l Men's 14:58: Refill(s) [place] 00 Fish Oil Yes 1,200 mg = Mem oria 1200 mg 7-25 1 cap, PO, l oral 14:58: Daily, 0 Kush capsule 00 Refill(s) metoprolol Yes 50 mg = 1 Me moria 50 mg oral 7-25 tab, PO, l tablet, 14:58: Bedtime, 0 Herm pedro extended 00 Refill(s) release Centrum Yes 1 tab, PO, Jah jina Silver 7-25 Daily, 0 l Men's 14:58: Refill(s) Kush 00 Fish Oil Yes 1,200 mg = Mem oria 1200 mg 7-25 1 cap, PO, l oral 14:58: Daily, 0 Kush capsule 00 Refill(s) metoprolol Yes 50 mg = 1 Me moria 50 mg oral 7-25 tab, PO, l tablet, 14:58: Bedtime, 0 Herm pedro extended 00 Refill(s) release Centrum Yes 1 tab, PO, Jah jina Silver 7-25 Daily, 0 l Men's 14:58: Refill(s) Kush 00 Fish Oil Yes 1,200 mg = Mem oria 1200 mg 7-25 1 cap, PO, l oral 14:58: Daily, 0 Kush capsule 00 Refill(s) metoprolol Yes 50 mg = 1 Me moria 50 mg oral 7-25 tab, PO, l tablet, 14:58: Bedtime, 0 Herm pedro extended 00 Refill(s) release Centrum Yes 1 tab, PO, Jah jina Silver 7-25 Daily, 0 l Men's 14:58: Refill(s) Kush 00 Fish Oil Yes 1,200 mg = Mem oria 1200 mg 7-25 1 cap, PO, l oral 14:58: Daily, 0 Kush capsule 00 Refill(s) metoprolol Yes 50 mg = 1 Me moria 50 mg oral 7-25 tab, PO, l tablet, 14:58: Bedtime, 0 Herm pedro extended 00 Refill(s) release Centrum Yes 1 tab, PO, Jah jina Silver 7-25 Daily, 0 l Men's 14:58: Refill(s) [place] 00 Fish Oil Yes 1,200 mg = Mem oria 1200 mg 7-25 1 cap, PO, l oral 14:58: Daily, 0 [place] capsule 00 Refill(s) metoprolol Yes 50 mg = 1 Me moria 50 mg oral 7-25 tab, PO, l tablet, 14:58: Bedtime, 0 Herm pedro extended 00 Refill(s) release Centrum Yes 1 tab, PO, Jah jina Silver 7-25 Daily, 0 l Men's 14:58: Refill(s) [place] 00 Fish Oil Yes 1,200 mg = Mem oria 1200 mg 7-25 1 cap, PO, l oral 14:58: Daily, 0 [place] capsule 00 Refill(s) metoprolol Yes 50 mg = 1 Me moria 50 mg oral 7-25 tab, PO, l tablet, 14:58: Bedtime, 0 Herm epdro extended 00 Refill(s) release Centrum Yes 1 tab, PO, Jah jina Silver 7-25 Daily, 0 l Men's 14:58: Refill(s) [place] 00 Fish Oil Yes 1,200 mg = Mem oria 1200 mg 7-25 1 cap, PO, l oral 14:58: Daily, 0 Kush capsule 00 Refill(s) metoprolol Yes 50 mg = 1 Me moria 50 mg oral 7-25 tab, PO, l tablet, 14:58: Bedtime, 0 Herm pedro extended 00 Refill(s) release Centrum Yes 1 tab, PO, Jah jina Silver 7-25 Daily, 0 l Men's 14:58: Refill(s) [place] 00 Fish Oil Yes 1,200 mg = Mem oria 1200 mg 7-25 1 cap, PO, l oral 14:58: Daily, 0 [place] capsule 00 Refill(s) metoprolol Yes 50 mg = 1 Me moria 50 mg oral 7-25 tab, PO, l tablet, 14:58: Bedtime, 0 Herm pedro extended 00 Refill(s) release Centrum Yes 1 tab, PO, Jha jina Silver 7-25 Daily, 0 l Men's 14:58: Refill(s) Kush 00 Fish Oil Yes 1,200 mg = Mem oria 1200 mg 7-25 1 cap, PO, l oral 14:58: Daily, 0 [place] capsule 00 Refill(s) metoprolol Yes 50 mg = 1 Me moria 50 mg oral 7-25 tab, PO, l tablet, 14:58: Bedtime, 0 Herm pedro extended 00 Refill(s) release Centrum Yes 1 tab, PO, Jah jina Silver 7-25 Daily, 0 l Men's 14:58: Refill(s) [place] 00 Fish Oil Yes 1,200 mg = Mem oria 1200 mg 7-25 1 cap, PO, l oral 14:58: Daily, 0 [place] capsule 00 Refill(s) Fish Oil Yes 1,200 mg = Mem oria 1200 mg 7-25 1 cap, PO, l oral 14:58: Daily, 0 Kush capsule 00 Refill(s) metoprolol Yes 50 mg = 1 Me moria 50 mg oral 7-25 tab, PO, l tablet, 14:58: Bedtime, 0 Herm pedro extended 00 Refill(s) release metoprolol Yes 50 mg = 1 Me moria 50 mg oral 7-25 tab, PO, l tablet, 14:58: Bedtime, 0 Herm pedro extended 00 Refill(s) release Centrum Yes 1 tab, PO, Jah jina Silver 7-25 Daily, 0 l Men's 14:58: Refill(s) [place] 00 Centrum Yes 1 tab, PO, Jah jina Silver 7-25 Daily, 0 l Men's 14:58: Refill(s) [place] 00 Fish Oil Yes 1,200 mg = Mem oria 1200 mg 7-25 1 cap, PO, l oral 14:58: Daily, 0 [place] capsule 00 Refill(s) metoprolol Yes 50 mg = 1 Me moria 50 mg oral 7-25 tab, PO, l tablet, 14:58: Bedtime, 0 Herm pedro extended 00 Refill(s) release Centrum Yes 1 tab, PO, Jah jina Silver 7-25 Daily, 0 l Men's 14:58: Refill(s) Kush 00 Polyethylen Polyethylen Yes KAMLA dispense [place] [...] Name Observation Time Observation Value Comments Source HEIGHT 2023-02-02 13:44:00 167.6 cm WEIGHT 2023-02-02 13:44:00 82.555 kg HEIGHT 2023-02-02 13:44:00 167.6 cm WEIGHT 2023-02-02 13:44:00 82.555 kg WEIGHT 2022-12-01 04:00:00 87.68 kg WEIGHT 2022-11-30 05:00:00 87.816 kg WEIGHT 2022-11-29 06:00:00 88.134 kg WEIGHT 2022-11-28 07:14:00 87.816 kg WEIGHT 2022-11-27 00:48:00 91.4 kg HEIGHT 2022-11-26 12:27:00 167.6 cm WEIGHT 2022-11-26 12:27:00 90.719 kg WEIGHT 2022-12-01 04:00:00 87.68 kg WEIGHT 2022-11-30 05:00:00 87.816 kg WEIGHT 2022-11-29 06:00:00 88.134 kg WEIGHT 2022-11-28 07:14:00 87.816 kg WEIGHT 2022-11-27 00:48:00 91.4 kg HEIGHT 2022-11-26 12:27:00 167.6 cm WEIGHT 2022-11-26 12:27:00 90.719 kg WEIGHT 2022-11-05 04:54:00 96.026 kg WEIGHT 2022-11-04 02:00:00 95.4 kg WEIGHT 2022-11-05 04:54:00 96.026 kg WEIGHT 2022-11-04 02:00:00 95.4 kg WEIGHT 2022-10-30 05:26:00 99.882 kg WEIGHT 2022-10-28 06:00:00 100.608 kg WEIGHT 2022-10-27 08:10:00 103.2 kg WEIGHT 2022-10-26 10:00:00 104.9 kg WEIGHT 2022-10-25 06:00:00 107.23 kg WEIGHT 2022-10-24 04:00:00 103.7 kg HEIGHT 2022-10-22 05:56:00 165.1 cm WEIGHT 2022-10-22 05:56:00 101.7 kg HEIGHT 2022-10-14 08:41:00 167.6 cm WEIGHT 2022-10-14 08:41:00 101.606 kg WEIGHT 2022-10-30 05:26:00 99.882 kg WEIGHT 2022-10-28 06:00:00 100.608 kg WEIGHT 2022-10-27 08:10:00 103.2 kg WEIGHT 2022-10-26 10:00:00 104.9 kg WEIGHT 2022-10-25 06:00:00 107.23 kg WEIGHT 2022-10-24 04:00:00 103.7 kg HEIGHT 2022-10-22 05:56:00 165.1 cm WEIGHT 2022-10-22 05:56:00 101.7 kg HEIGHT 2022-10-14 08:41:00 167.6 cm WEIGHT 2022-10-14 08:41:00 101.606 kg HEIGHT 2022-10-18 11:04:00 165.1 cm WEIGHT 2022-10-18 11:04:00 100.562 kg HEIGHT 2022-10-18 11:04:00 165.1 cm WEIGHT 2022-10-18 11:04:00 100.562 kg HEIGHT 2022-10-15 10:28:00 167.6 cm WEIGHT 2022-10-15 10:28:00 100.699 kg HEIGHT 2022-10-15 10:28:00 167.6 cm WEIGHT 2022-10-15 10:28:00 100.699 kg HEIGHT 2022-09-27 08:36:00 167.6 cm WEIGHT 2022-09-27 08:36:00 102.059 kg HEIGHT 2022-09-27 08:36:00 167.6 cm WEIGHT 2022-09-27 08:36:00 102.059 kg Systolic blood 2022-10-18 20:00:00 167 mm[Hg] [facility] Diastolic blood 2022-10-18 20:00:00 76 mm[Hg] [facility] Heart rate 2022-10-18 20:00:00 68 /min [facility] Respiratory rate 2022-10-18 20:00:00 16 /min [facility] Oxygen saturation in 2022-10-18 18:16:00 94 /min [facility] Arterial blood by Medical Ce [facility]ter Pulse oximetry Body temperature 2022-10-18 11:04:00 36.44 Maritza [facility] Body height 2022-10-18 11:04:00 165.1 cm [facility] Body weight 2022-10-18 11:04:00 100.562 kg [facility] BMI 2022-10-18 11:04:00 36.89 kg/m2 [facility] Systolic blood 2022-09-27 08:36:00 159 mm[Hg] [facility] Diastolic blood 2022-09-27 08:36:00 70 mm[Hg] [facility] Heart rate 2022-09-27 08:36:00 57 /min [facility] Body temperature 2022-09-27 08:36:00 36.94 Maritza [facility] Respiratory rate 2022-09-27 08:36:00 16 /min [facility] Body height 2022-09-27 08:36:00 167.6 cm [facility] Body weight 2022-09-27 08:36:00 102.059 kg [facility] BMI 2022-09-27 08:36:00 36.32 kg/m2 [facility] Oxygen saturation in 2022-09-27 08:36:00 99 /min [facility] Arterial blood by Medical [facility] Pulse oximetry Systolic blood 2022-08-17 22:00:31 173 mm[Hg] [facility] pressure Diastolic blood 2022-08-17 22:00:31 94 mm[Hg] [facility] pressure Heart rate 2022-08-17 22:00:31 88 /min [facility] Body temperature 2022-08-17 22:00:31 36.72 Maritza [facility] Respiratory rate 2022-08-17 22:00:31 15 /min [facility] Oxygen saturation in 2022-08-17 22:00:31 98 /min [facility] Arterial blood by Pulse oximetry Body height 2022-08-17 00:55:00 167.6 cm [facility] Body weight 2022-08-17 00:55:00 102.059 kg [facility] BMI 2022-08-17 00:55:00 36.32 kg/m2 [facility] BP Systolic 2017-06-27 13:07:00 167 mm[Hg] [facility] BP Diastolic 2017-06-27 13:07:00 94 mm[Hg] [facility] Height 2017-06-27 13:07:00 66 [in_us] [facility] Weight 2017-06-27 13:07:00 230 [lb_av] [facility] Body Mass Index 2017-06-27 13:07:00 37.12 kg/m2 [facility] Calculated Heart Rate 2017-06-27 13:07:00 90 /min [facility] Systolic (mm Hg) 2017-01-13 16:46:00 Jah rial [place] Diastolic (mm Hg) 2017-01-13 16:46:00 Mem orial [facility] Heart Rate 2017-01-13 16:46:00 [facility] [place] Respitory Rate 2017-01-13 16:46:00 Mem[facility] Temperature Oral (F) 2017-01-13 16:46:00 98.4 F [facility] [place] Respitory Rate 2017-01-13 12:36:00 Memori al [facility] Systolic (mm Hg) 2017-01-13 12:36:00 Jah rial [place] Diastolic (mm Hg) 2017-01-13 12:36:00 Mem orial [facility] Heart Rate 2017-01-13 12:36:00 [facility] Temperature Oral (F) 2017-01-13 12:36:00 98.5 F [facility] Systolic (mm Hg) 2017-01-13 08:35:00 Jah rial [place] Diastolic (mm Hg) 2017-01-13 08:35:00 Mem [facility] [place] Respitory Rate 2017-01-13 08:35:00 Memori al [facility] Heart Rate 2017-01-13 08:35:00 [facility] [place] Temperature Oral (F) 2017-01-13 08:35:00 98.7 F [facility] [place] BMI Calculated 2017-01-11 16:43:00 [facility] Weight 2017-01-11 16:43:00 [facility] [place] Height 2017-01-11 16:43:00 167.64 cm [facility] [place] BMI Calculated 2017-01-11 10:18:00 [facility] Weight 2017-01-11 10:18:00 [facility] Height 2017-01-11 10:18:00 167.64 cm [facility] Weight 2016-12-28 14:36:00 [facility] Height 2016-12-28 14:36:00 167.64 cm [facility] BMI Calculated 2016-12-28 14:36:00 [facility] Procedures Procedure Date / Time Performing Clinician Source Performed REPLACEMENT, AORTIC VALVE 2022-10-22 07:30:00 Samuel Downey [facility] REPAIR, ANEURYSM, AORTA, 2022-10-22 07:30:00 Samuel Downey [facility] THORACIC, ASCENDING Center ABORH, MANUAL 2022-10-18 12:47:00 LucasMarc Hutchison [facility] ANGIOGRAM, CORONARY, WITH 2022-10-18 10:45[facility] LEFT HEART [facility] CATHETERIZATION AND LEFT VENTRICULOGRAM, WITH PTCA IF INDICATED CARDIAC CATH REPORT - 2022-10-18 00:00:00 Provider, Default [facility] SCAN Scanning [place] VASCULAR DIAGRAM -SCAN 2022-10-18 00:00:00 Provider, Default [facility] XR CHEST 2 VIEWS 2022-10-15 11:24:00 Wendie Talley [facility] BASIC METABOLIC PANEL 2022-10-15 11:10:00 Wendie Talley [facility] CBC W/PLT COUNT & AUTO 2022-10-15 11:10:00 Wendie Talley [facility] HEMOGLOBIN A1C 2022-10-15 11:10:00 [facility] HEPATITIS B PANEL 2022-10-15 11:10:00 [facility] HEPATITIS C ANTIBODY 2022-10-15 11:10:00 [facility] HC LAB HIV-1 AG W/HIV-1&2 2022-10-15 11:10:00 [facility] AB Center LACTATE DEHYDROGENASE 2022-10-15 11:10:00 [facility] ([facility]) Center ALBUMIN 2022-10-15 11:10:00 [facility] ALKALINE PHOSPHATASE 2022-10-15 11:10:00 [facility] BILIRUBIN, ADULT TOTAL 2022-10-15 11:10:00 [facility] BILIRUBIN, DIRECT 2022-10-15 11:10:00 [facility] AST (SGOT) 2022-10-15 11:10:00 [facility] ALT (SGPT) 2022-10-15 11:10:00 [facility] PROTEIN, TOTAL 2022-10-15 11:10:00 [facility] PROTHROMBIN TIME/INR 2022-10-15 11:10:00 [facility] TYPE AND SCREEN, 2022-10-15 11:10:00 [facility] AUTOMATED Center CBC W/PLT COUNT & AUTO 2022-10-15 11:10:00 [facility] DIFFERENTIAL Center APTT 2022-10-15 11:10:00 [facility] URINALYSIS W/ MICROSCOPIC 2022-10-15 11:00:00 [facility] ECG 12-LEAD 2022-10-15 10:31:18 Unknown, [facility] ECG 12-LEAD 2022-10-15 10:31:18 Unknown, [facility] TROPONIN T 2022-08-17 20:36:00 Adali Arrington [facility] CV CARDIAC PET STRESS 2022-08-17 17:49[facility] MYOCARDIAL 2022-08-17 17:49:41 [facility] PERFUSION IMAGING CV MRI VALVE ASSESSMENT W 2022-08-17 [facility] 2022-08-17 07:44:00 Adali Arrington spital Jeff CBC WITH PLATELET AND 2022-08-17 07:44:00 Aj [facility] DIFFERENTIAL BASIC METABOLIC PANEL 2022-08-17 07:44:00 [facility] ESTIMATED GFR 2022-08-17 07:44:00 Tanvir Arrington [facility] ECG ED PRELIMINARY 2022-08-17 [facility] ECG 12-LEAD 2022-08-17 01:29:20 Adali Arrington [facility] Jeff ESTIMATED GFR 2022-08-17 01:21:00 Adali Arrington spital Jeff CBC WITH PLATELET AND 2022-08-17 01:21:00 Aj [facility] DIFFERENTIAL [facility] PROTHROMBIN TIME WITH INR 2022-08-17 01:21:00 Adali Arrington [facility] PARTIAL THROMBOPLASTIN 2022-08-17 01:21:00 [facility] TIME (PTT) [facility] COMPREHENSIVE METABOLIC 2022-08-17 01:21:00 [facility] PANEL [facility] TROPONIN T 2022-08-17 01:21:00 Adali Arrington spital Jeff B NATRIURETIC PEPTIDE 2022-08-17 01:21:00 [facility] [U] XRAY KNEE 3 VWS RIGHT 2017-08-18 00:00:00 [facility] [id number] Colon operation 2012-06-06 00:00:00 [facility] Her lawson Tonsillectomy 1972-06-06 00:00:00 [facility] Her lawson History of knee [facility] arthroscopy History of knee [facility] replacement Plan of Care Planned Activity Planned Date Details Comments Source Future Scheduled 2023-10-[address] [facility] Test 00:00[facility]12+) [code = Tobacco Cessation Counseling and Screening (12+)] Future Scheduled 2023-09-[address] [facility] Test 00:00[facility]00 [facility] (12+) [code = Tobacco Cessation Counseling and Screening (12+)] Future Scheduled 2023-02-11 Screening for [facility] Test 09:58:10 malignant neoplasm of colon (procedure) [code = 287377281] Future Scheduled 2023-02-11 Screening for [facility] Test 09:58:10 malignant neoplasm of colon (procedure) [code = 811818094] Future Scheduled 2023-02-11 Screening for [facility] Test 09:58:10 malignant neoplasm of colon (procedure) [code = 742937331] Future Scheduled 2023-02-11 COVID-19 VACCINE (#1) [facility] Test 09:58:10 [code = COVID-19 VACCINE (#1)] Future Scheduled 2023-02-11 Pneumococcal Vaccine: [facility] Test 09:58:10 Pediatrics (0 to 5 Years) and At-Risk Patients (6 to 64 Years) (1 - PCV) [code = Pneumococcal Vaccine: Pediatrics (0 to 5 Years) and At-Risk Patients (6 to 64 Years) (1 - PCV)] Future Scheduled 2023-02-11 Hepatitis C screening [facility] Test 09:58:10 (procedure) [code = 454643768] Future Scheduled 2023-02-11 Screening for [facility] Test 09:58:10 malignant neoplasm of colon (procedure) [code = 353018075] Future Scheduled 2023-02-11 Screening for [facility] Test 09:58:10 malignant neoplasm of colon (procedure) [code = 985813702] Future Scheduled 2023-02-11 [facility]ING[facility]ACCIN[facility] ([facility] 09:58:10 of 2) [code = SHINGLES VACCINES (1 of 2)] Future Scheduled 2023-02-11 INFLUENZA VACCINE (#1) [facility] Test 09:58:10 [code = INFLUENZA VACCINE (#1)] Future Scheduled 2023-02-[address] [facility] Test 00:00:00 (Season Ended) [code = [facility] INFLUENZA VACCINE (Season Ended)] Future Scheduled 2023-02-[address] [facility] Test 00:00:00 (Season Ended) [code = [facility] INFLUENZA VACCINE (Season Ended)] Future Scheduled 2022-10-18 COVID-19 VACCINE (#1) [facility] Test 12:19:25 [code = COVID-19 VACCINE (#1)] Future Scheduled 2022-10-18 Pneumococcal Vaccine: [facility] Test 12:19:25 Pediatrics (0 to 5 Years) and At-Risk Patients (6 to 64 Years) (1 - PCV) [code = Pneumococcal Vaccine: Pediatrics (0 to 5 Years) and At-Risk Patients (6 to 64 Years) (1 - PCV)] Future Scheduled 2022-10-18 Hepatitis C screening [facility] [facility] Test 12:19:25 (procedure) [code = 687773853] Future Scheduled 2022-10-18 COLONOSCOPY SCREENING [facility] Test 12:19:25 [code = COLONOSCOPY SCREENING] Future Scheduled 2022-10-18 SHINGLES VACCINES (1 Met [facility] Test 12:19:25 of 2) [code = SHINGLES VACCINES (1 of 2)] Future Scheduled 2022-10-18 INFLUENZA VACCINE Method [facility] Test 12:19:25 [code = INFLUENZA VACCINE] Future Scheduled 2022-06-[address] [facility] Test 00:00:00 (12+) [code = Medical Center DEPRESSION SCREENING (12+)] Future Scheduled 2022-05-25 COVID-19 VACCINE (#1) [facility] Test 13:56:48 [code = COVID-19 VACCINE (#1)] Future Scheduled 2022-05-25 Pneumococcal Vaccine: [facility] Test 13:56:48 Pediatrics (0 to 5 Years) and At-Risk Patients (6 to 64 Years) (1 - PCV) [code = Pneumococcal Vaccine: Pediatrics (0 to 5 Years) and At-Risk Patients (6 to 64 Years) (1 - PCV)] Future Scheduled 2022-05-25 Hepatitis C screening [facility] Test 13:56:48 (procedure) [code = [id number]] Future Scheduled 2022-05-25 COLONOSCOPY SCREENING [facility] Test 13:56:48 [code = COLONOSCOPY SCREENING] Future Scheduled 2022-05-25 SHINGLES VACCINES (1 Met [facility] Test 13:56:48 of 2) [code = SHINGLES VACCINES (1 of 2)] Future Scheduled 2022-05-25 INFLUENZA VACCINE Method [facility] Test 13:56:48 [code = INFLUENZA VACCINE] Future Scheduled 2014 SHINGLES VACCINES ([address] [facility] Test 00:00:00 of 2) [code = SHINGLES Medic al Center VACCINES (1 of 2)] Future Scheduled 2014 SHINGLES VACCINES ([address] [facility] Test 00:00:00 of 2) [code = SHINGLES Medic al Center VACCINES (1 of 2)] Future Scheduled 1999-12-[address] [facility] Test 00:00:00 (procedure) [code = Medical Center [id number]] Future Scheduled 1999-12-[address] [facility] Test 00:00:00 (procedure) [code = Medical Center [id number]] Future Scheduled 1983-12-20 DTAP/TDAP/TD VACCINES [facility] Test 00:00:00 (1 - Tdap) [code = Medical C enter DTAP/TDAP/TD VACCINES (1 - Tdap)] Future Scheduled 1983-12-20 DTAP/TDAP/TD VACCINES [facility] Test 00:00:00 (1 - Tdap) [code = Medical C enter DTAP/TDAP/TD VACCINES (1 - Tdap)] Future Scheduled 1982 HEPATITIS C SCREENING [facility] Test 00:00:00 [code = HEPATITIS C Medical Center SCREENING] Future Scheduled [address] [facility] Test 00:00:00 0-64 YRS (1 - PCV) Medical C enter [code = PNEUMOCOCCAL VACCINE 0-64 YRS (1 - PCV)] Future Scheduled 1965-06-21 COVID-19 VACCINE (#1) [facility] Test 00:00:00 [code = COVID-[address] VACCINE (#1)] Future Scheduled 1965-06-21 COVID-19 VACCINE (#1) [facility] Test 00:00:00 [code = COVID-[address] VACCINE (#1)] Future Scheduled [address] [facility] Test 00:00:00 (combo) [code = CT Medical C enter Colonography (combo)] Future Scheduled [address] [facility] 00:[facility]:00 malignant neoplasm of Medica l Center colon (procedure) [code = 072573666] Future Scheduled [address] [facility] Test 00:00:00 malignant neoplasm of Medica l Center colon (procedure) [code = 379008509] Future Scheduled [address] [facility] Test 00:00:00 malignant neoplasm of Medica l Center colon (procedure) [code = 150959603] Future Scheduled [address] [facility] Test 00:00:00 malignant neoplasm of Medica l Center colon (procedure) [code = 025752647] Future Scheduled 1965 Sigmoidoscopy [code = [facility] Test [facility] S[facility]oidoscopy] Medical Arlinee r Future Scheduled [address] [facility] Test 00:00:00 (combo) [code = CT Medical C enter Colonography (combo)] Future Scheduled [address] [facility] Test 00:00:00 malignant neoplasm of Medica l Center colon (procedure) [code = 980400028] Future Scheduled [address] [facility] Test 00:00:00 malignant neoplasm of Medica l Center colon (procedure) [code = 586644883] Future Scheduled [address] [facility] Test 00:00:00 malignant neoplasm of Medica l Center colon (procedure) [code = 123083517] Future Scheduled [address] [facility] Test 00:00:00 malignant neoplasm of Medica l Center colon (procedure) [code = 022504562] Future Scheduled 1965 Sigmoidoscopy [facility]code [facility] 00:[facility] Sigm[facility]oscopy] Medical Cente r Encounters Start End Encounter Admission Attending Care Care Encounter Source Date/Time Date/Time Type Type Clinicians Facility Department ID 2023-02-14 [facility] [id number] Common 11:11:00 [facility] [id number] [facility] 2023-02-10 Inpatient ER NEASON, SLEH SLEH [id number] SLEH 15:34:09 [facility] 2023-02-08 Inpatient ER NEASON, SLEH SLEH [id number] SLEH 15:22:41 [facility] 2023-02-08 Inpatient ER NEASON, SLEH SLEH [id number] SLEH 15:22:32 [facility] 2023-02-08 Inpatient ER NEASON, SLEH SLEH [id number] SLEH 15:22:20 [facility] 2023-02-04 Inpatient ER SUNORALIAARA, SLEH SLEH [id number] SLEH 15:39:12 JUSTIN 2023-01-26 [facility] [id number] Common 13:18:00 Jean Carlos [address] [facility] 2023-01-19 [facility] [id number] Common 08:34:00 Jean Carlos [id number] [facility] 2022-12-01 Inpatient ER JULEE, SLEH SLEH [id number] SLEH 12:35:48 FARNAZ 2022-12-01 Inpatient ER YUDI, SLEH SLEH [id number] SLEH 04:05:18 [place] 2022-11-30 Inpatient ER STALZER, SLEH SLEH [id number] SLEH 11:14:50 ARABELLA 2022-11-30 Inpatient ER YUDI, SLEH SLEH [id number] SLEH 05:50:02 [place] 2022-11-29 Inpatient ER YUDI, SLEH SLEH [id number] SLEH 06:13:55 [place] 2022-11-28 Inpatient ER YUDI, SLEH SLEH [id number] SLEH 05:22:17 [place] 2022-11-27 Inpatient ER YUDI, SLEH SLEH [id number] SLEH 11:22:39 [place] 2022-07-27 Outpatient Quiñonez, [facility] [id number] Common 09:13:04 Sachajose daniel [id number] [facility] 2023-02-02 2023-02-11 Inpatient ER TIM, SLE Emergency [id number] SLEH 13:53:00 18:12:00 KATY 2023-02-04 2023-02-04 Inpatient ER SNOW GEE SLE SLE [id number] SLEH 17:09:13 00:00:00 2023-02-02 2023-02-02 Emergency ER GREGOR SLE SLE [id number] SLEH 19:26:10 19:26:10 RICHINA 2023-02-02 2023-02-02 Emergency ER GREGOR [facility] [id number] SLEH 14:37:45 14:37:45 CHANTE 2023-02-02 2023-02-02 Outpatient LUCAS TALLEY SLSL SLSL [id number] SLSL 00:00:00 00:00:00 WENDIE 2023-01-28 2023-01-28 Outpatient LUCAS TALLEY SLSL SLSL [id number] SLSL 00:00:00 00:00:00 WENDIE 2023-01-13 2023-01-13 Outpatient LUCAS CLEMENTE [facility] SLSL [id number] SLSL 16:00:01 23:59:00 KALA 2023-01-13 2023-01-13 Outpatient LUCAS CLEMENTE, SLSL SLSL [id number] SLSL 00:00:00 00:00:00 KALA 2022-11-26 2022-12-01 Inpatient ER JULEE [facility] Emergency [id number] SLE 12:16:00 18:19:00 FARNAZ 2022-11-26 2022-11-26 Emergency ER JOSÉ MIGUEL SLE SLE [id number] SLEH 12:32:53 12:32:53 KALA 2022-11-26 2022-11-26 Inpatient ER JULEE SLEMelquiades SLE [id number] SLEH 18:55:21 00:00:00 FARNAZ 2022-11-22 2022-11-22 Outpatient LUCAS [facility] SLE [id number] SLE 10:06:39 23:59:00 2022-11-22 2022-11-22 Outpatient LUCAS TALLEY [facility] [id number] SLE 07:26:10 07:26:10 WENDIE 2022-11-22 2022-11-22 [id number] SLEH 00:00:00 00:00:00 2022-11-18 2022-11-18 Outpatient LUCAS CLEMENTE SLSValente SLSL [id number] SLSL 15:41:06 23:59:00 KALA 2022-11-04 2022-11-05 [facility] [id number] SLE 02:07:00 18:51:00 2022-10-22 2022-10-30 Inpatient LUCAS NGUYENONSAMUEL [facility] Surgery [id number] SLE 05:40:00 15:42:00 2022-10-18 2022-10-18 [facility] [id number] SLE 10:51:00 20:11:00 [facility] 2022-10-18 2022-10-18 [facility] [id number] 10:51:00 20:11:00 Encounter [facility] 2022-10-18 2022-10-18 Surgery [facility] [id number] 16:20:00 18:15:00 [facility] 2022-10-15 2022-10-15 Outpatient LUCAS NGUYENONSAMUEL [facility] [id number] SLE 11:14:28 23:59:00 2022-10-15 2022-10-15 [facility] Samuel Downey [facility] [id number] 11:14:28 23:59:00 Encounter [facility] 2022-10-15 2022-10-15 Office LUCAS NguyenonSamuel [facility] [id number] [id number] 10:30:00 10:45:00 Visit [facility] 2022-10-15 2022-10-15 Outpatient [facility] [id number] SLE 10:21:55 10:21:55 2022-10-15 2022-10-15 [id number] 00:00:00 00:00:[address] [facility] 2022-10-14 2022-10-14 Outpatient LUCAS [facility] [id number] SLEH 09:04:36 23:59:00 2022-10-14 2022-10-14 [facility] [id number] 08:10:00 23:59:00 Encounter [facility] 2022-10-14 2022-10-14 [facility] [id number] [facility] 00:[facility]00 [facility] 2022-09-27 2022-09-27 Office Samuel Downey [facility] [id number] 08:15:00 08:45:00 [facility]22-09-27 2022-09-27 Outpatient LUCAS MONTEIRO [facility] SLE [id number] SLE 08:12:54 08:12:54 KAREN 2022-09-27 2022-09-27 Outpatient SAMUEL BAHENA [facility] SLE [id number] SLEH 00:00:00 00:00:00 2022-09-22 2022-09-22 Outpatient SAMUEL BAHENA SLE SLE [id number] SLEH 00:00:00 00:00:00 2022-09-20 2022-09-20 Outpatient SAMUEL BAHENA [facility] SLE [id number] SLEH 00:00:00 00:00:00 2022-09-09 2022-09-09 Orders Royer Osuna [facility] [id number] 00:00:00 00:00:[address] [facility] 2022-08-17 2022-08-17 [facility], 1.2.840.1 [id number] Methodi 11:44:02 23:59:00 Encounter Kala Heredia [id number] 3.430.2.7 Hospit a .3.620346 l .8 2022-08-17 2022-08-17 [facility], 1.2.840.1 [id number] Methodi 11:44:02 23:59:[address]1.[address] 3.430.2.7 Hospit a .3.004523 l .8 2022-08-16 2022-08-17 Emergency Adali Arrington 1.2.84 0.1 [id number] Methodi 19:56:00 18:17:00 Penelope Arringtonlindsey Wang [address]23.1.[address] 3.430.2.7 Hospit a .3.582652 l .8 2022-08-16 2022-08-17 Emergency Adali Arrington 1.2.84 0.1 [id number] Methodi 19:56:00 18:17:00 Aj Tanvir Wang 42538.1.[address] 3.430.2.7 Hospit a .3.419049 l .8 2020-01-16 2020-01-16 Emergency [facility] [id number] [place] 00:00:00 00:00:00 SARANYA [address] 2017-08-18 2017-08-18 Appointmikala PAUL [facility]UST [facility] [id number] [place] 13:45:00 13:45:00 t; Pratik POTTS i, M.D. Orthopedics jo POTTS M.D. 2017-07-22 2017-07-22 [facility] [id number] [place] 09:00:00 09:00:00 t; KALA DOUGLAS Phys ici MICHAEL, M.D. ans M.D. 2017-06-27 2017-06-27 Digna SCHWAB [facility] [id number] [place] 08:30:00 08:30:00 t; [place] MEDEIROS [facility] radha MEDEIROS M.D. 2017-05-06 2017-05-06 Digna DOUGLAS [facility] [id number] [place] 09:15:00 09:15:00 t; KALA DOUGLAS Phys ici MICHAEL, M.D. ans M.D. 2017-04-08 2017-04-08 Appointmikala DOUGLAS RUST RBJ - [id number] UT 10:45:00 10:45:00 t; KALA DOUGLAS [place] Smart M.Demetrice 2017-03-24 2017-03-24 [facility] [id number] [place] 09:30:00 09:30:00 t; KALA DOUGLAS Phys ici MICHAEL, M.D. ans M.Demetrice 2017-03-21 2017-03-21 [facility] STELLA RUST UTP [id number] [place] 14:15:00 14:15:00 t; KALA DOUGLAS Phys ici MICHAEL, M.D. ans M.Demetrice 2017-03-07 2017-03-07 [facility] [id number] [place] 13:45:00 13:45:00 t; KALA DOUGLAS Phys ici MICHAEL, M.D. ans MFord 2017-02-21 2017-02-21 [facility] STELLA RUST UTP [id number] [place] 13:00:00 13:00:00 t; KALA DOUGLAS Phys ici MICHAEL, M.D. ans M.D. 2017-01-24 2017-01-24 [facility] U[facility] [id number] [place] 15:15:00 15:15:00 t; KALA DOUGLAS Phys ici MICHAEL, M.D. ans MFord 2017-01-11 2017-01-13 Inpatient nullFlavo [facility] [id number] Memoria 10:05:20 19:50:00 r Kush 00 l [place] Guillermina 2017-01-11 2017-01-13 Inpatient nullFlavo [facility] [id number] Memoria 10:05:20 19:50:00 r [place] 00 l [place] Guillermina 2017-01-11 2017-01-13 Outpatient Stella, MHSL MHSL [id number] 05:05:20 14:50:00 Kala William 2017-01-11 2017-01-11 [facility] STELLA RUST UTP [id number] [place] 07:30:00 07:30:00 t; KALA DOUGLAS Phys ici MICHAEL, M.D. ans MFord 2017-01-06 2017-01-06 [facility] STELLA RUST UTP [id number] UT 16:00:00 16:00:00 t; KALA DOUGLAS Phys ici MICHAEL, M.D. ans M.D. 2016-11-18 2016-11-18 [facility] STELLA, RUST UTP [id number] [place] 14:00:00 14:00:00 t; KALA DOUGLAS Phys ici MICHAEL, M.D. ans M.D. 2016-01-27 2016-01-27 [facility] HÉCTOR, UTP UTP [id number] UT 10:45:00 10:45:00 t; KAMLA ANAYA M.D. Physici ZORAN, ans M.D. 2016-01-02 2016-01-02 [facility] CUPIC, UTP UTP [id number] UT 08:30:00 08:30:00 t; KAMLA ANAYA M.D. Physici ZORAN, ans M.D. 2015-12-29 2015-12-29 [facility] CUPIC, UTP UTP [id number] UT 08:00:00 08:00:00 t; KAMLA ANAYA M.D. Physici ZORAN, ans M.D. 2015-12-15 2015-12-15 [facility], ED UTP [id number] UT 11:30:00 11:30:00 t; KAMLA ANAYA M.D. Physici ZORAN, ans M.D. 2015-11-10 2015-11-10 [facility] CUPIC, ED UTP [id number] UT 15:15:00 15:15:00 t; KAMLA ANAYA M.D. Physici ZORAN, ans M.D. 2015-09-23 2015-09-23 [facility] H[facility]CTOR, ED UTP [id number] UT 11:30:00 11:30:00 t; KAMLA ANAYA M.D. Physici ZORAN, ans M.D. 2015-08-20 2015-08-20 [facility] CUPIC, ED UTP [id number] UT 08:00:00 08:00:00 t; KAMLA ANAYA M.D. Physici ZORAN, ans M.D. Results Test Description Test Time Test Comments Results Result Comments Source BASIC METABOLIC PANEL 2023-02-11 04:24:17 Test Item Value Reference Range Interpretation Comme nts SODIUM (BEAKER) (test 136 meq/L 136-145 code = 381) POTASSIUM (BEAKER) 3.9 meq/L 3.5-5.1 (test code = 379) CHLORIDE (BEAKER) (test 106 meq/L 98-107 code = 382) CO2 (BEAKER) (test code 21 meq/L 22-29 L = 355) BLOOD UREA NITROGEN 9 mg/dL 7-21 (BEAKER) (test code = 354) CREATININE (BEAKER) 0.93 mg/dL 0.57-1.25 (test code = 358) GLUCOSE RANDOM (BEAKER) 84 mg/dL 70-105 (test code = 652) CALCIUM (BEAKER) (test 8.8 mg/dL 8.4-10.2 code = 697) EGFR (BEAKER) (test 96 mL/min/1.73 sq In terpretation of eGFR values code = 1092) m Stage Descripti on Result G1 Normal or high >=90 G2 Mildly decreased 60-89 G3a Mildly to moderately 45-5 9 G3b Moderately to severely 30- 44 G4 Severly decreased 15-29 G5 Kidney failure <15Rep orted eGFR is based on the CK D-EPI 2020 equation that d oes not use a race coefficien tEstimated GFR is not as accurate as Creatinine Clearance in pr edicting glomerular filt ration rate. Estimated GFR i s not applicable for dialysis nikolas gordon Manager Hospice ID - EMCBC W/PLT COUNT & AUTO [id number] 04:07:10 Test Item Value Reference Range Interpretation Comments WHITE BLOOD CELL COUNT (BEAKER) 8.3 K/ L 3.5-10.5 (test code = 775) RED BLOOD CELL COUNT (BEAKER) 4.04 M/ L 4.63-6.08 L (test code = 761) HEMOGLOBIN (BEAKER) (test code = 10.1 GM/DL 13.7-17.5 L 410) HEMATOCRIT (BEAKER) (test code = 32.4 % 40.1-51.0 L 411) MEAN CORPUSCULAR VOLUME (BEAKER) 80 fL 79-92 (test code = 753) MEAN CORPUSCULAR HEMOGLOBIN 25.0 pg 25.7-32.2 L (BEAKER) (test code = 751) MEAN CORPUSCULAR HEMOGLOBIN CONC 31.2 GM/DL 32.3-36.5 L (BEAKER) (test code = 752) RED CELL DISTRIBUTION WIDTH 15.8 % 11.6-14.4 H (BEAKER) (test code = 412) PLATELET COUNT (BEAKER) (test 225 K/CU MM 150-450 code = 756) MEAN PLATELET VOLUME (BEAKER) 9.1 fL 9.4-12.4 L (test code = 754) NUCLEATED RED BLOOD CELLS 0 /100 WBC 0-0 (BEAKER) (test code = 413) NEUTROPHILS RELATIVE PERCENT 71 % (BEAKER) (test code = 429) LYMPHOCYTES RELATIVE PERCENT 21 % (BEAKER) (test code = 430) MONOCYTES RELATIVE PERCENT 6 % (BEAKER) (test code = 431) EOSINOPHILS RELATIVE PERCENT 1 % (BEAKER) (test code = 432) BASOPHILS RELATIVE PERCENT 1 % (BEAKER) (test code = 437) NEUTROPHILS ABSOLUTE COUNT 5.89 K/ L 1.78-5.38 H (BEAKER) (test code = 670) LYMPHOCYTES ABSOLUTE COUNT 1.72 K/ L 1.32-3.57 (BEAKER) (test code = 414) MONOCYTES ABSOLUTE COUNT (BEAKER) 0.50 K/ L 0.30-0.82 (test code = 415) EOSINOPHILS ABSOLUTE COUNT 0.09 K/ L 0.04-0.54 (BEAKER) (test code = 416) BASOPHILS ABSOLUTE COUNT (BEAKER) 0.04 K/ L 0.01-0.08 (test code = 417) IMMATURE GRANULOCYTES-RELATIVE 0.50 % 0.00-1.00 PERCENT (BEAKER) (test code = 2801) XR CHEST 1 VIEW PORTABLE / [id number] 16:36:05 [facility] : 1965 Sex: MEXAMINATION: XR CHEST 1 VIEW PORTABLE / BEDSIDE INDICATION: Post right arm PICC insertion. Need PICC tip locationplease.COMPARISON: February 02, 2023 FINDINGS:LINES/TUBES: There is interval insertion of a right arm PICC with itstip overlying the cavoatrial junction. LUNGS: The lungs are well inflated. No focal airspace consolidation.PLEURA: No pleural effusion or pneumothorax.MEDIASTINUM: The cardiomediastinal silhouette appears normal in size andshape.BONES/SOFT TISSUES: No acute osseous injury.ABDOMEN:No free air under the diaphragm.IMPRESSION:No focal pneumonia or airspace edema.Electronically Signed By: Dustin Dang02/10/2023 16:38 CDTWorkstation Name: [id number] 07:00:10 Test Item Value Reference Range Interpretation Comments CULTURE (BEAKER) (test No growth in 5 days code = 1095) The specimen volume collected for this blood culture was below the optimum (10 mL per bottle or 20 mL total). Use of lower volumes may adversely affect recovery and/or detection times of some organisms.BLOOD [id number] 07:00:10 Test Item Value Reference Range Interpretation Comments CULTURE (BEAKER) (test No growth in 5 days code = 1095) The specimen volume collected for this blood culture was below the optimum (10 mL per bottle or 20 mL total). Use of lower volumes may adversely affect recovery and/or detection times of some organisms.BASIC METABOLIC PANEL 2023-02-10 06:06:37 Test Item Value Reference Range Interpretation Comments SODIUM (BEAKER) 135 meq/L 136-145 L (test code = 381) POTASSIUM 3.9 meq/L 3.5-5.1 (BEAKER) (test code = 379) CHLORIDE (BEAKER) 105 meq/L 98-107 (test code = 382) CO2 (BEAKER) 21 meq/L 22-29 L (test code = 355) BLOOD UREA 7 mg/dL 7-21 NITROGEN (BEAKER) (test code = 354) CREATININE 0.91 mg/dL 0.57-1.25 (BEAKER) (test code = 358) GLUCOSE RANDOM 86 mg/dL 70-105 (BEAKER) (test code = 652) CALCIUM (BEAKER) 8.7 mg/dL 8.4-10.2 (test code = 697) EGFR (BEAKER) 99 Interpretatio n of eGFR (test code = mL/min/1.73 values Stage De scription 1092) sq m Result G1 Ary l or high >=90 G2 Mildly decreased 60-89 G3a Mildl y to moderately 45-5 9 G3b Moderately to s everely 30-44 G4 Severl y decreased 15-29 G5 Kidney failure <15Reported eGF R is based on the CKD-EPI 1 equation that d oes not use a race coefficientEsti mated GFR is not as accur ate as Creatinine Rayne marsha in predicting glom erular filtration rate . Estimated GFR is not appl icable for dialysis patien ts Manager Hospice ID - EMCBC W/PLT COUNT & AUTO [id number] 05:44:48 Test Item Value Reference Range Interpretation Comments WHITE BLOOD CELL COUNT (BEAKER) 8.1 K/ L 3.5-10.5 (test code = 775) RED BLOOD CELL COUNT (BEAKER) 4.00 M/ L 4.63-6.08 L (test code = 761) HEMOGLOBIN (BEAKER) (test code = 9.9 GM/DL 13.7-17.5 L 410) HEMATOCRIT (BEAKER) (test code = 31.3 % 40.1-51.0 L 411) MEAN CORPUSCULAR VOLUME (BEAKER) 78 fL 79-92 L (test code = 753) MEAN CORPUSCULAR HEMOGLOBIN 24.8 pg 25.7-32.2 L (BEAKER) (test code = 751) MEAN CORPUSCULAR HEMOGLOBIN CONC 31.6 GM/DL 32.3-36.5 L (BEAKER) (test code = 752) RED CELL DISTRIBUTION WIDTH 15.5 % 11.6-14.4 H (BEAKER) (test code = 412) PLATELET COUNT (BEAKER) (test 258 K/CU MM 150-450 code = 756) MEAN PLATELET VOLUME (BEAKER) 9.2 fL 9.4-12.4 L (test code = 754) NUCLEATED RED BLOOD CELLS 0 /100 WBC 0-0 (BEAKER) (test code = 413) NEUTROPHILS RELATIVE PERCENT 67 % (BEAKER) (test code = 429) LYMPHOCYTES RELATIVE PERCENT 25 % (BEAKER) (test code = 430) MONOCYTES RELATIVE PERCENT 6 % (BEAKER) (test code = 431) EOSINOPHILS RELATIVE PERCENT 1 % (BEAKER) (test code = 432) BASOPHILS RELATIVE PERCENT 1 % (BEAKER) (test code = 437) NEUTROPHILS ABSOLUTE COUNT 5.42 K/ L 1.78-5.38 H (BEAKER) (test code = 670) LYMPHOCYTES ABSOLUTE COUNT 2.01 K/ L 1.32-3.57 (BEAKER) (test code = 414) MONOCYTES ABSOLUTE COUNT (BEAKER) 0.45 K/ L 0.30-0.82 (test code = 415) EOSINOPHILS ABSOLUTE COUNT 0.10 K/ L 0.04-0.54 (BEAKER) (test code = 416) BASOPHILS ABSOLUTE COUNT (BEAKER) 0.04 K/ L 0.01-0.08 (test code = 417) IMMATURE GRANULOCYTES-RELATIVE 0.40 % 0.00-1.00 PERCENT (BEAKER) (test code = 2801) BASIC METABOLIC [id number] 05:47:45 Test Item Value Reference Range Interpretation Comments SODIUM (BEAKER) 134 meq/L 136-145 L (test code = 381) POTASSIUM 3.9 meq/L 3.5-5.1 (BEAKER) (test code = 379) CHLORIDE (BEAKER) 104 meq/L 98-107 (test code = 382) CO2 (BEAKER) 21 meq/L 22-29 L (test code = 355) BLOOD UREA 11 mg/dL 7-21 NITROGEN (BEAKER) (test code = 354) CREATININE 1.00 mg/dL 0.57-1.25 (BEAKER) (test code = 358) GLUCOSE RANDOM 107 mg/dL 70-105 H (BEAKER) (test code = 652) CALCIUM (BEAKER) 8.6 mg/dL 8.4-10.2 (test code = 697) EGFR (BEAKER) 88 Interpretatio n of eGFR (test code = mL/min/1.73 values Stage De scription 1092) sq m Result G1 Ary l or high >=90 G2 Mildly decreased 60-89 G3a Mildl y to moderately 45-5 9 G3b Moderately to s everely 30-44 G4 Severl y decreased 15-29 G5 Kidney failure <15Reported eGF R is based on the CKD-EPI 2020 equation that d oes not use a race coefficientEsti mated GFR is not as accur ate as Creatinine Rayne larson in predicting glom erular filtration rate . Estimated GFR is not appl icable for dialysis patien ts [facility] ID - [id number] 05:47:45 Test Item Value Reference Range Interpretation Comments MAGNESIUM (BEAKER) (test code = 2.0 mg/dL 1.6-2.6 627) [facility] ID - [facility] W/PLT COUNT & AUTO [id number] 05:07:54 Test Item Value Reference Range Interpretation Comments WHITE BLOOD CELL COUNT (BEAKER) 8.5 K/ L 3.5-10.5 (test code = 775) RED BLOOD CELL COUNT (BEAKER) 3.93 M/ L 4.63-6.08 L (test code = 761) HEMOGLOBIN (BEAKER) (test code = 9.8 GM/DL 13.7-17.5 L 410) HEMATOCRIT (BEAKER) (test code = 31.0 % 40.1-51.0 L 411) MEAN CORPUSCULAR VOLUME (BEAKER) 79 fL 79-92 (test code = 753) MEAN CORPUSCULAR HEMOGLOBIN 24.9 pg 25.7-32.2 L (BEAKER) (test code = 751) MEAN CORPUSCULAR HEMOGLOBIN CONC 31.6 GM/DL 32.3-36.5 L (BEAKER) (test code = 752) RED CELL DISTRIBUTION WIDTH 15.3 % 11.6-14.4 H (BEAKER) (test code = 412) PLATELET COUNT (BEAKER) (test 240 K/CU MM 150-450 code = 756) MEAN PLATELET VOLUME (BEAKER) 9.0 fL 9.4-12.4 L (test code = 754) NUCLEATED RED BLOOD CELLS 0 /100 WBC 0-0 (BEAKER) (test code = 413) NEUTROPHILS RELATIVE PERCENT 68 % (BEAKER) (test code = 429) LYMPHOCYTES RELATIVE PERCENT 23 % (BEAKER) (test code = 430) MONOCYTES RELATIVE PERCENT 6 % (BEAKER) (test code = 431) EOSINOPHILS RELATIVE PERCENT 2 % (BEAKER) (test code = 432) BASOPHILS RELATIVE PERCENT 0 % (BEAKER) (test code = 437) NEUTROPHILS ABSOLUTE COUNT 5.76 K/ L 1.78-5.38 H (BEAKER) (test code = 670) LYMPHOCYTES ABSOLUTE COUNT 1.96 K/ L 1.32-3.57 (BEAKER) (test code = 414) MONOCYTES ABSOLUTE COUNT (BEAKER) 0.54 K/ L 0.30-0.82 (test code = 415) EOSINOPHILS ABSOLUTE COUNT 0.13 K/ L 0.04-0.54 (BEAKER) (test code = 416) BASOPHILS ABSOLUTE COUNT (BEAKER) 0.03 K/ L 0.01-0.08 (test code = 417) IMMATURE GRANULOCYTES-RELATIVE 0.60 % 0.00-1.00 PERCENT (BEAKER) (test code = 2801) BLOOD [id number] 10:05:42 Test Item Value Reference Range Interpretation Comments CULTURE A From Anaerobic Bottle (BEAKER) (test Only Same org anism has code = 1095) been isolated f rom cultures(s) of the same body site and collection date . Repeat identifi cation and susceptibil ity testing perform ed only after consultat ion with the [facility] microbiology laboratory.Refe r to previous cultur e of - Streptococcus sanguinis GRAM STAIN From anaerobic RESULT (BEAKER) bottle only: gram (test code = positive cocci in 1123) chains The specimen volume collected for this blood culture was below the optimum (10 mL per bottle or 20 mL total). Use of lower volumes may adversely affect recovery and/or detection times of some organisms.BLOOD [id number] 10:05:10 Test Item Value Reference Interpretation Comments Range CULTURE (BEAKER) STREPTOCOCCUS A From Anaer obic Bottle (test code = SANGUINIS Only Streptococ cus 1095) sanguinisVirida ns group streptoco ccus Ceftriaxone See_Comment S [Automated Tagoodies josefina] (test code = 52) The system which generated this result transmitted ref erence range: Suscepti ble 0-1 , Resistant <0 or >1 . The reference r mary was not used to interpret this result as normal/abnor mal. Penicillin G See_Comment I [Automated mes josefina] (test code = 3) The system w [facility] generated this result transmitted ref erence range: Suscepti ble 0-0.12 , Interm ediate <0 or >.12 , Re sistant >2 . The refere nce range was not u sed to interpret this result as normal/abnor mal. Vancomycin (test See_Comment S [Automated message] code = 13) The system whic h generated this result transmitted ref erence range: Suscepti ble 0-1 , No Interpreta tions Established <0 or >1 . The reference r mary was not used to interpret this result as normal/abnor mal. GRAM STAIN From anaerobic RESULT (BEAKER) bottle only: gram (test code = positive cocci in 1123) chains and pairs The specimen volume collected for this blood culture was below the optimum (10 mL per bottle or 20 mL total). Use of lower volumes may adversely affect recovery and/or detection times of some organisms.BASIC METABOLIC PANEL 2023-02-08 07:16:32 Test Item Value Reference Range Interpretation Comments SODIUM (BEAKER) 135 meq/L 136-145 L (test code = 381) POTASSIUM 3.9 meq/L 3.5-5.1 (BEAKER) (test code = 379) CHLORIDE (BEAKER) 106 meq/L 98-107 (test code = 382) CO2 (BEAKER) 18 meq/L 22-29 L (test code = 355) BLOOD UREA 7 mg/dL 7-21 NITROGEN (BEAKER) (test code = 354) CREATININE 0.84 mg/dL 0.57-1.25 (BEAKER) (test code = 358) GLUCOSE RANDOM 85 mg/dL 70-105 (BEAKER) (test code = 652) CALCIUM (BEAKER) 8.8 mg/dL 8.4-10.2 (test code = 697) EGFR (BEAKER) 102 Interpretatio n of eGFR (test code = mL/min/1.73 values Stage De scription 1092) sq m Result G1 Ary l or high >=90 G2 Mildly decreased 60-89 G3a Mildl y to moderately 45-5 9 G3b Moderately to s everely 30-44 G4 Severl y decreased 15-29 G5 Kidney failure <15Reported eGF R is based on the CKD-EPI 2020 equation that d oes not use a race coefficientEsti mated GFR is not as accur ate as Creatinine Rayne larson in predicting glom erular filtration rate . Estimated GFR is not appl icable for dialysis patien ts Manager Hospice ID - [id number] 07:16:32 Test Item Value Reference Range Interpretation Comments MAGNESIUM (BEAKER) (test code = 2.1 mg/dL 1.6-2.6 627) Manager Hospice ID - ADMINCBC W/PLT COUNT & AUTO [id number] 05:20:42 Test Item Value Reference Range Interpretation Comments WHITE BLOOD CELL COUNT (BEAKER) 8.1 K/ L 3.5-10.5 (test code = 775) RED BLOOD CELL COUNT (BEAKER) 4.11 M/ L 4.63-6.08 L (test code = 761) HEMOGLOBIN (BEAKER) (test code = 10.2 GM/DL 13.7-17.5 L 410) HEMATOCRIT (BEAKER) (test code = 32.1 % 40.1-51.0 L 411) MEAN CORPUSCULAR VOLUME (BEAKER) 78 fL 79-92 L (test code = 753) MEAN CORPUSCULAR HEMOGLOBIN 24.8 pg 25.7-32.2 L (BEAKER) (test code = 751) MEAN CORPUSCULAR HEMOGLOBIN CONC 31.8 GM/DL 32.3-36.5 L (BEAKER) (test code = 752) RED CELL DISTRIBUTION WIDTH 14.8 % 11.6-14.4 H (BEAKER) (test code = 412) PLATELET COUNT (BEAKER) (test 280 K/CU MM 150-450 code = 756) MEAN PLATELET VOLUME (BEAKER) 8.7 fL 9.4-12.4 L (test code = 754) NUCLEATED RED BLOOD CELLS 0 /100 WBC 0-0 (BEAKER) (test code = 413) NEUTROPHILS RELATIVE PERCENT 66 % (BEAKER) (test code = 429) LYMPHOCYTES RELATIVE PERCENT 24 % (BEAKER) (test code = 430) MONOCYTES RELATIVE PERCENT 7 % (BEAKER) (test code = 431) EOSINOPHILS RELATIVE PERCENT 2 % (BEAKER) (test code = 432) BASOPHILS RELATIVE PERCENT 1 % (BEAKER) (test code = 437) NEUTROPHILS ABSOLUTE COUNT 5.35 K/ L 1.78-5.38 (BEAKER) (test code = 670) LYMPHOCYTES ABSOLUTE COUNT 1.94 K/ L 1.32-3.57 (BEAKER) (test code = 414) MONOCYTES ABSOLUTE COUNT (BEAKER) 0.60 K/ L 0.30-0.82 (test code = 415) EOSINOPHILS ABSOLUTE COUNT 0.14 K/ L 0.04-0.54 (BEAKER) (test code = 416) BASOPHILS ABSOLUTE COUNT (BEAKER) 0.04 K/ L 0.01-0.08 (test code = 417) IMMATURE GRANULOCYTES-RELATIVE 0.50 % 0.00-1.00 PERCENT (BEAKER) (test code = 2801) BASIC METABOLIC [id number] 05:10:51 Test Item Value Reference Range Interpretation Comments SODIUM (BEAKER) 136 meq/L 136-145 (test code = 381) POTASSIUM 4.1 meq/L 3.5-5.1 (BEAKER) (test code = 379) CHLORIDE (BEAKER) 107 meq/L 98-107 (test code = 382) CO2 (BEAKER) 19 meq/L 22-29 L (test code = 355) BLOOD UREA 8 mg/dL 7-21 NITROGEN (BEAKER) (test code = 354) CREATININE 0.93 mg/dL 0.57-1.25 (BEAKER) (test code = 358) GLUCOSE RANDOM 90 mg/dL 70-105 (BEAKER) (test code = 652) CALCIUM (BEAKER) 8.7 mg/dL 8.4-10.2 (test code = 697) EGFR (BEAKER) 96 Interpretatio n of eGFR (test code = mL/min/1.73 values Stage De scription 1092) sq m Result G1 Ary l or high >=90 G2 Mildly decreased 60-89 G3a Mildl y to moderately 45-5 9 G3b Moderately to s everely 30-44 G4 Severl y decreased 15-29 G5 Kidney failure <15Reported eGF R is based on the CKD-EPI 2020 equation that d oes not use a race coefficientEsti mated GFR is not as accur ate as Creatinine Rayne larson in predicting glom erular filtration rate . Estimated GFR is not appl icable for dialysis patien ts Manager Hospice ID - [id number] 05:10:51 Test Item Value Reference Range Interpretation Comments MAGNESIUM (BEAKER) (test code = 1.9 mg/dL 1.6-2.6 627) Manager Hospice ID - MARCOCBC W/PLT COUNT & AUTO [id number] 04:46:44 Test Item Value Reference Range Interpretation Comments WHITE BLOOD CELL COUNT (BEAKER) 7.5 K/ L 3.5-10.5 (test code = 775) RED BLOOD CELL COUNT (BEAKER) 3.78 M/ L 4.63-6.08 L (test code = 761) HEMOGLOBIN (BEAKER) (test code = 9.3 GM/DL 13.7-17.5 L 410) HEMATOCRIT (BEAKER) (test code = 29.9 % 40.1-51.0 L 411) MEAN CORPUSCULAR VOLUME (BEAKER) 79 fL 79-92 (test code = 753) MEAN CORPUSCULAR HEMOGLOBIN 24.6 pg 25.7-32.2 L (BEAKER) (test code = 751) MEAN CORPUSCULAR HEMOGLOBIN CONC 31.1 GM/DL 32.3-36.5 L (BEAKER) (test code = 752) RED CELL DISTRIBUTION WIDTH 14.6 % 11.6-14.4 H (BEAKER) (test code = 412) PLATELET COUNT (BEAKER) (test 253 K/CU MM 150-450 code = 756) MEAN PLATELET VOLUME (BEAKER) 8.9 fL 9.4-12.4 L (test code = 754) NUCLEATED RED BLOOD CELLS 0 /100 WBC 0-0 (BEAKER) (test code = 413) NEUTROPHILS RELATIVE PERCENT 67 % (BEAKER) (test code = 429) LYMPHOCYTES RELATIVE PERCENT 24 % (BEAKER) (test code = 430) MONOCYTES RELATIVE PERCENT 7 % (BEAKER) (test code = 431) EOSINOPHILS RELATIVE PERCENT 1 % (BEAKER) (test code = 432) BASOPHILS RELATIVE PERCENT 1 % (BEAKER) (test code = 437) NEUTROPHILS ABSOLUTE COUNT 5.00 K/ L 1.78-5.38 (BEAKER) (test code = 670) LYMPHOCYTES ABSOLUTE COUNT 1.81 K/ L 1.32-3.57 (BEAKER) (test code = 414) MONOCYTES ABSOLUTE COUNT (BEAKER) 0.51 K/ L 0.30-0.82 (test code = 415) EOSINOPHILS ABSOLUTE COUNT 0.10 K/ L 0.04-0.54 (BEAKER) (test code = 416) BASOPHILS ABSOLUTE COUNT (BEAKER) 0.04 K/ L 0.01-0.08 (test code = 417) IMMATURE GRANULOCYTES-RELATIVE 0.40 % 0.00-1.00 PERCENT (BEAKER) (test code = 2801) BASIC METABOLIC [id number] 05:45:29 Test Item Value Reference Range Interpretation Comments SODIUM (BEAKER) 136 meq/L 136-145 (test code = 381) POTASSIUM 3.7 meq/L 3.5-5.1 (BEAKER) (test code = 379) CHLORIDE (BEAKER) 107 meq/L 98-107 (test code = 382) CO2 (BEAKER) 21 meq/L 22-29 L (test code = 355) BLOOD UREA 7 mg/dL 7-21 NITROGEN (BEAKER) (test code = 354) CREATININE 0.86 mg/dL 0.57-1.25 (BEAKER) (test code = 358) GLUCOSE RANDOM 95 mg/dL 70-105 (BEAKER) (test code = 652) CALCIUM (BEAKER) 8.7 mg/dL 8.4-10.2 (test code = 697) EGFR (BEAKER) 101 Interpretatio n of eGFR (test code = mL/min/1.73 values Stage De scription 1092) sq m Result G1 Ary l or high >=90 G2 Mildly decreased 60-89 G3a Mildl y to moderately 45-5 9 G3b Moderately to s everely 30-44 G4 Severl y decreased 15-29 G5 Kidney failure <15Reported eGF R is based on the CKD-EPI 2020 equation that d oes not use a race coefficientEsti mated GFR is not as accur ate as Creatinine Rayne larson in predicting glom erular filtration rate . Estimated GFR is not appl icable for dialysis patien ts Manager Hospice ID - DARRELL WCBC W/PLT COUNT & AUTO [id number] 05:20:43 Test Item Value Reference Range Interpretation Comments WHITE BLOOD CELL COUNT (BEAKER) 7.6 K/ L 3.5-10.5 (test code = 775) RED BLOOD CELL COUNT (BEAKER) 3.83 M/ L 4.63-6.08 L (test code = 761) HEMOGLOBIN (BEAKER) (test code = 9.4 GM/DL 13.7-17.5 L 410) HEMATOCRIT (BEAKER) (test code = 30.3 % 40.1-51.0 L 411) MEAN CORPUSCULAR VOLUME (BEAKER) 79 fL 79-92 (test code = 753) MEAN CORPUSCULAR HEMOGLOBIN 24.5 pg 25.7-32.2 L (BEAKER) (test code = 751) MEAN CORPUSCULAR HEMOGLOBIN CONC 31.0 GM/DL 32.3-36.5 L (BEAKER) (test code = 752) RED CELL DISTRIBUTION WIDTH 14.6 % 11.6-14.4 H (BEAKER) (test code = 412) PLATELET COUNT (BEAKER) (test 277 K/CU MM 150-450 code = 756) MEAN PLATELET VOLUME (BEAKER) 9.1 fL 9.4-12.4 L (test code = 754) NUCLEATED RED BLOOD CELLS 0 /100 WBC 0-0 (BEAKER) (test code = 413) NEUTROPHILS RELATIVE PERCENT 68 % (BEAKER) (test code = 429) LYMPHOCYTES RELATIVE PERCENT 24 % (BEAKER) (test code = 430) MONOCYTES RELATIVE PERCENT 6 % (BEAKER) (test code = 431) EOSINOPHILS RELATIVE PERCENT 1 % (BEAKER) (test code = 432) BASOPHILS RELATIVE PERCENT 1 % (BEAKER) (test code = 437) NEUTROPHILS ABSOLUTE COUNT 5.17 K/ L 1.78-5.38 (BEAKER) (test code = 670) LYMPHOCYTES ABSOLUTE COUNT 1.83 K/ L 1.32-3.57 (BEAKER) (test code = 414) MONOCYTES ABSOLUTE COUNT (BEAKER) 0.44 K/ L 0.30-0.82 (test code = 415) EOSINOPHILS ABSOLUTE COUNT 0.08 K/ L 0.04-0.54 (BEAKER) (test code = 416) BASOPHILS ABSOLUTE COUNT (BEAKER) 0.04 K/ L 0.01-0.08 (test code = 417) IMMATURE GRANULOCYTES-RELATIVE 0.30 % 0.00-1.00 PERCENT (BEAKER) (test code = 2801) VANCOMYCIN LEVEL, [id number] 20:46:25 Test Item Value Reference Range Interpretation Comments VANCOMYCIN TROUGH (BEAKER) (test 22.3 ug/mL 10.0-20.0 H code = 522) Manager Hospice ID - ADMINMRSA [id number] 08:27:47 Test Item Value Reference Range Interpretation Comments CULTURE (BEAKER) (test code No MRSA isolated = 1095) BASIC METABOLIC [id number] 07:04:50 Test Item Value Reference Range Interpretation Comments SODIUM (BEAKER) 133 meq/L 136-145 L (test code = 381) POTASSIUM 3.8 meq/L 3.5-5.1 (BEAKER) (test code = 379) CHLORIDE (BEAKER) 105 meq/L 98-107 (test code = 382) CO2 (BEAKER) 20 meq/L 22-29 L (test code = 355) BLOOD UREA 8 mg/dL 7-21 NITROGEN (BEAKER) (test code = 354) CREATININE 0.92 mg/dL 0.57-1.25 (BEAKER) (test code = 358) GLUCOSE RANDOM 93 mg/dL 70-105 (BEAKER) (test code = 652) CALCIUM (BEAKER) 9.1 mg/dL 8.4-10.2 (test code = 697) EGFR (BEAKER) 98 Interpretatio n of eGFR (test code = mL/min/1.73 values Stage De scription 1092) sq m Result G1 Ary l or high >=90 G2 Mildly decreased 60-89 G3a Mildl y to moderately 45-5 9 G3b Moderately to s everely 30-44 G4 Severl y decreased 15-29 G5 Kidney failure <15Reported eGF R is based on the CKD-EPI 2020 equation that d oes not use a race coefficientEsti mated GFR is not as accur ate as Creatinine Rayne marsha in predicting glom erular filtration rate . Estimated GFR is not appl icable for dialysis patien ts Manager Hospice ID - ADMINCBC W/PLT COUNT & AUTO [id number] 06:39:41 Test Item Value Reference Range Interpretation Comments WHITE BLOOD CELL COUNT (BEAKER) 7.9 K/ L 3.5-10.5 (test code = 775) RED BLOOD CELL COUNT (BEAKER) 3.94 M/ L 4.63-6.08 L (test code = 761) HEMOGLOBIN (BEAKER) (test code = 9.8 GM/DL 13.7-17.5 L 410) HEMATOCRIT (BEAKER) (test code = 30.8 % 40.1-51.0 L 411) MEAN CORPUSCULAR VOLUME (BEAKER) 78 fL 79-92 L (test code = 753) MEAN CORPUSCULAR HEMOGLOBIN 24.9 pg 25.7-32.2 L (BEAKER) (test code = 751) MEAN CORPUSCULAR HEMOGLOBIN CONC 31.8 GM/DL 32.3-36.5 L (BEAKER) (test code = 752) RED CELL DISTRIBUTION WIDTH 14.6 % 11.6-14.4 H (BEAKER) (test code = 412) PLATELET COUNT (BEAKER) (test 281 K/CU MM 150-450 code = 756) MEAN PLATELET VOLUME (BEAKER) 9.2 fL 9.4-12.4 L (test code = 754) NUCLEATED RED BLOOD CELLS 0 /100 WBC 0-0 (BEAKER) (test code = 413) NEUTROPHILS RELATIVE PERCENT 71 % (BEAKER) (test code = 429) LYMPHOCYTES RELATIVE PERCENT 22 % (BEAKER) (test code = 430) MONOCYTES RELATIVE PERCENT 6 % (BEAKER) (test code = 431) EOSINOPHILS RELATIVE PERCENT 1 % (BEAKER) (test code = 432) BASOPHILS RELATIVE PERCENT 0 % (BEAKER) (test code = 437) NEUTROPHILS ABSOLUTE COUNT 5.56 K/ L 1.78-5.38 H (BEAKER) (test code = 670) LYMPHOCYTES ABSOLUTE COUNT 1.74 K/ L 1.32-3.57 (BEAKER) (test code = 414) MONOCYTES ABSOLUTE COUNT (BEAKER) 0.46 K/ L 0.30-0.82 (test code = 415) EOSINOPHILS ABSOLUTE COUNT 0.07 K/ L 0.04-0.54 (BEAKER) (test code = 416) BASOPHILS ABSOLUTE COUNT (BEAKER) 0.03 K/ L 0.01-0.08 (test code = 417) IMMATURE GRANULOCYTES-RELATIVE 0.30 % 0.00-1.00 PERCENT (BEAKER) (test code = 2801) CT MAXILLOFACIAL WITH IV [id number] 18:52:26 [facility] : 1965 Sex: MCT MAXILLOFACIAL WITH IV CONTRASTCLINICAL INDICATION: Unlisted Reason for Examevaluate for dental infection in pt bacteremicCOMPARISON: NoneTECHNIQUE: Stenosis contrast enhancement CT of the maxillofacial area.Coronal and sagittal reconstructions were performed.DOSE REDUCTION: Dose modulation, iterative reconstruction, and/orweight-based adjustment of the mA/kV was utilized to reduce theradiation dose toas low as reasonably achievable.FINDINGS: 1. Periapical lucency of the right central mandibular incisor,suggestive of periapical abscess. No associated drainable fluidcollections.2. Remainder the facial soft tissues are unremarkable.IMPRESSION:No facial bone fracture Electronically Signed By: Denisse Encarnacion02/04/2023 18:54 CDTWorkstation Name: [id number] LEVEL, TROUGH 2023-02-04 05:46:26 Test Item Value Reference Range Interpretation Comments VANCOMYCIN TROUGH (BEAKER) (test 21.2 ug/mL 10.0-20.0 H code = 522) Manager Hospice ID - ADMINBASIC METABOLIC [id number] 05:41:05 Test Item Value Reference Range Interpretation Comments SODIUM (BEAKER) 136 meq/L 136-145 (test code = 381) POTASSIUM 4.0 meq/L 3.5-5.1 (BEAKER) (test code = 379) CHLORIDE (BEAKER) 105 meq/L 98-107 (test code = 382) CO2 (BEAKER) 23 meq/L 22-29 (test code = 355) BLOOD UREA 10 mg/dL 7-21 NITROGEN (BEAKER) (test code = 354) CREATININE 1.06 mg/dL 0.57-1.25 (BEAKER) (test code = 358) GLUCOSE RANDOM 86 mg/dL 70-105 (BEAKER) (test code = 652) CALCIUM (BEAKER) 9.0 mg/dL 8.4-10.2 (test code = 697) EGFR (BEAKER) 82 Interpretatio n of eGFR (test code = mL/min/1.73 values Stage De scription 1092) sq m Result G1 Ary l or high >=90 G2 Mildly decreased 60-89 G3a Mildl y to moderately 45-5 9 G3b Moderately to s everely 30-44 G4 Severl y decreased 15-29 G5 Kidney failure <15Reported eGF R is based on the CKD-EPI 2020 equation that d oes not use a race coefficientEsti mated GFR is not as accur ate as Creatinine Rayne marsha in predicting glom erular filtration rate . Estimated GFR is not appl icable for dialysis patien ts Manager Hospice ID - ADMINCBC W/PLT COUNT & AUTO [id number] 05:34:22 Test Item Value Reference Range Interpretation Comments WHITE BLOOD CELL COUNT (BEAKER) 7.2 K/ L 3.5-10.5 (test code = 775) RED BLOOD CELL COUNT (BEAKER) 3.85 M/ L 4.63-6.08 L (test code = 761) HEMOGLOBIN (BEAKER) (test code = 9.9 GM/DL 13.7-17.5 L 410) HEMATOCRIT (BEAKER) (test code = 30.3 % 40.1-51.0 L 411) MEAN CORPUSCULAR VOLUME (BEAKER) 79 fL 79-92 (test code = 753) MEAN CORPUSCULAR HEMOGLOBIN 25.7 pg 25.7-32.2 (BEAKER) (test code = 751) MEAN CORPUSCULAR HEMOGLOBIN CONC 32.7 GM/DL 32.3-36.5 (BEAKER) (test code = 752) RED CELL DISTRIBUTION WIDTH 14.6 % 11.6-14.4 H (BEAKER) (test code = 412) PLATELET COUNT (BEAKER) (test 285 K/CU MM 150-450 code = 756) MEAN PLATELET VOLUME (BEAKER) 10.0 fL 9.4-12.4 (test code = 754) NUCLEATED RED BLOOD CELLS 0 /100 WBC 0-0 (BEAKER) (test code = 413) NEUTROPHILS RELATIVE PERCENT 60 % (BEAKER) (test code = 429) LYMPHOCYTES RELATIVE PERCENT 30 % (BEAKER) (test code = 430) MONOCYTES RELATIVE PERCENT 8 % (BEAKER) (test code = 431) EOSINOPHILS RELATIVE PERCENT 1 % (BEAKER) (test code = 432) BASOPHILS RELATIVE PERCENT 0 % (BEAKER) (test code = 437) NEUTROPHILS ABSOLUTE COUNT 4.31 K/ L 1.78-5.38 (BEAKER) (test code = 670) LYMPHOCYTES ABSOLUTE COUNT 2.18 K/ L 1.32-3.57 (BEAKER) (test code = 414) MONOCYTES ABSOLUTE COUNT (BEAKER) 0.58 K/ L 0.30-0.82 (test code = 415) EOSINOPHILS ABSOLUTE COUNT 0.08 K/ L 0.04-0.54 (BEAKER) (test code = 416) BASOPHILS ABSOLUTE COUNT (BEAKER) 0.02 K/ L 0.01-0.08 (test code = 417) IMMATURE GRANULOCYTES-RELATIVE 0.40 % 0.00-1.00 PERCENT (BEAKER) (test code = 2801) BLOOD CULTURE IDENTIFICATION [id number] 05:18:27 Test Item Value Reference Range Interpretation Comments MCR-1 (BEAKER) (test Non Applicable Not detected code = 4383890750) CTX-M (BEAKER) (test Non Applicable Not detected code = 1690009331) IMP ([place]) (test code = Non Applicable Not Detected 5857025319) KPC (BKR) (test code = Non Applicable Not detected 3253232295) NDM (BKR) (test code = Non Applicable Not Detected 7243698114) OXA-48-LIKE (BKR) Non Applicable Not Detected (test code = 1865087979) VIM (BKR) (test code = Non Applicable Not detected 6503103400) MEC A/C ([place]) (test Non Applicable Not detected code = 9979817421) MEC A/C AND MREJ Non Applicable Not Detected (MRSA) [place] (test code = 7167519711) VAN A/B (VANCOMYCIN Non Applicable Not detected RESISTANCE) (test code = 3265290652) ENTEROCOCCUS FAECALIS Not detected Not detected (BKR) (test code = 7270821053) ENTEROCOCCUS FAECIUM Not detected Not detected (BKR) (test code = 8208149216) LISTERIA MONOCYTOGENES Not detected Not detected (test code = 20160308) STAPHYLOCOCCUS (test Not detected Not detected code = 3669935) STAPHYLOCOCCUS AUREUS Not detected Not detected (test code = 20160512) STAPHYLOCOCCUS Not detected Not detected EPIDERMIDIS ([place]) (test code = 6474495101) STAPHYLOCOCCUS Not detected Not detected LUGDENENSIS (BKR) (test code = 5273213239) STREPTOCOCCUS (test Detected Not detected A Streptoc occus code = 1606274) species (NOT S. pneumoniae, S. agalactiae nor S. pyogenes).First line therapy: Vancomycin. De-escalate bas ed on susceptibilitie s. STREPTOCOCCUS Not detected Not detected AGALACTIAE (GROUP B) (test code = 2393949) STREPTOCOCCUS Not detected Not detected PNEUMONIAE (test code = 3510164) STREPTOCOCCUS PYOGENES Not detected Not detected (GROUP A) (test code = 1134464) ACINETOBACTER Not detected Not detected CALCOACETICUS-BAUMANNI I COMPLEX (BKR) (test code = 7712) BACTEROIDES FRAGILIS Not detected Not detected ([place]) (test code = 6230756927) ENTEROBACTERALES (test Not detected Not detected code = 7946440788) ENTEROBACTER CLOACOE Not detected Not detected COMPLEX (test code = 5428422) ESCHERICHIA COLI (test Not detected Not detected code = 8196487) KLEBSIELLA AEROGENES Not detected Not detected (BKR) (test code = 9461610614) KLEBSIELLA OXYTOCA Not detected Not detected (test code = 2060432) KLEBSIELLA PNEUMONIAE Not detected Not detected GROUP (test code = 6208585991) PROTEUS (test code = Not detected Not detected 5859447) SALMONELLA SPECIES Not detected Not detected ([place]) (test code = 4774705255) SERRATIA MARCESCENS Not detected Not detected (test code = 8831048) HAEMOPHILUS INFLUENZAE Not detected Not detected (test code = 9595438) NEISSERIA MENINGITIDIS Not detected Not detected (test code = 8478702) PSEUDOMONAS Not detected Not detected AERUGINOSA-BEAKER (test code = 3536644) STENOTROPHOMONAS Not detected Not detected MALTOPHILIA (BKR) (test code = 8184352986) ELY ALBICANS (test Not detected Not detected code = 9843342) ELY AURIS ([place]) Not detected Not detected (test code = 8297850290) ELY GLABRATA (test Not detected Not detected code = 4531506) ELY KRUSEI (test Not detected Not detected code = 1942553) ELY PARAPSILOSIS Not detected Not detected (test code = 1352697) ELY TROPICALIS Not detected Not detected (BKR) (test code = 0524837) CRYPTOCOCCUS Not detected Not detected NEOFORMANS/GATTII (test code = 7998416572) Other bacteria and resistance markers not targeted by this PCR panel cannot be excluded; therefore clinical correlation and follow up of serology, culture results, and other molecular studies is required. The results are not intended to be used as the sole means for clinical diagnosis or patient management decisions. This sample was tested at the [facility] using the [employer] Blood Culture ID Panel. It is FDA cleared and has been verified and approved by the [facility] for clinical use. This laboratory is CLIA-certified and College ofAmerican [employer]ologists (CAP)-accredited to perform high complexity testing.HEMOGLOBIN AND [id number] 18:25:49 Test Item Value Reference Range Interpretation Comments HEMOGLOBIN (BEAKER) (test code = 10.6 GM/DL 13.7-17.5 L 410) HEMATOCRIT (BEAKER) (test code = 33.1 % 40.1-51.0 L 411) [facility] ID - [id number] 05:06:50 Test Item Value Reference Range Interpretation Comments PHOSPHORUS (BEAKER) (test code = 3.7 mg/dL 2.3-4.7 604) [facility] ID - ADMINBASIC METABOLIC [id number] 05:06:49 Test Item Value Reference Range Interpretation Comments SODIUM (BEAKER) 133 meq/L 136-145 L (test code = 381) POTASSIUM 3.4 meq/L 3.5-5.1 L (BEAKER) (test code = 379) CHLORIDE (BEAKER) 101 meq/L 98-107 (test code = 382) CO2 (BEAKER) 22 meq/L 22-29 (test code = 355) BLOOD UREA 12 mg/dL 7-21 NITROGEN (BEAKER) (test code = 354) CREATININE 1.00 mg/dL 0.57-1.25 (BEAKER) (test code = 358) GLUCOSE RANDOM 90 mg/dL 70-105 (BEAKER) (test code = 652) CALCIUM (BEAKER) 8.9 mg/dL 8.4-10.2 (test code = 697) EGFR (BEAKER) 88 Interpretatio n of eGFR (test code = mL/min/1.73 values Stage De scription 1092) sq m Result G1 Ary l or high >=90 G2 Mildly decreased 60-89 G3a Mild ly to moderately 45-5 9 G3b Moderately to s everely 30-44 G4 Severl y decreased 15-29 G5 Kidney failure <15Reported eGF R is based on the CKD-EPI 2020 equation that d oes not use a race coefficientEsti mated GFR is not as accur ate as Creatinine Rayne marsha in predicting glom erular filtration rate . Estimated GFR is not appl icable for dialysis patien ts [facility] ID - [id number] 05:06:49 Test Item Value Reference Range Interpretation Comments MAGNESIUM (BEAKER) (test code = 2.1 mg/dL 1.6-2.6 627) [facility] ID - ADMINCBC W/PLT COUNT & AUTO [id number] 04:49:44 Test Item Value Reference Range Interpretation Comments WHITE BLOOD CELL COUNT (BEAKER) 8.1 K/ L 3.5-10.5 (test code = 775) RED BLOOD CELL COUNT (BEAKER) 4.32 M/ L 4.63-6.08 L (test code = 761) HEMOGLOBIN (BEAKER) (test code = 10.9 GM/DL 13.7-17.5 L 410) HEMATOCRIT (BEAKER) (test code = 33.7 % 40.1-51.0 L 411) MEAN CORPUSCULAR VOLUME (BEAKER) 78 fL 79-92 L (test code = 753) MEAN CORPUSCULAR HEMOGLOBIN 25.2 pg 25.7-32.2 L (BEAKER) (test code = 751) MEAN CORPUSCULAR HEMOGLOBIN CONC 32.3 GM/DL 32.3-36.5 (BEAKER) (test code = 752) RED CELL DISTRIBUTION WIDTH 14.5 % 11.6-14.4 H (BEAKER) (test code = 412) PLATELET COUNT (BEAKER) (test 254 K/CU MM 150-450 code = 756) MEAN PLATELET VOLUME (BEAKER) 9.2 fL 9.4-12.4 L (test code = 754) NUCLEATED RED BLOOD CELLS 0 /100 WBC 0-0 (BEAKER) (test code = 413) NEUTROPHILS RELATIVE PERCENT 72 % (BEAKER) (test code = 429) LYMPHOCYTES RELATIVE PERCENT 21 % (BEAKER) (test code = 430) MONOCYTES RELATIVE PERCENT 6 % (BEAKER) (test code = 431) EOSINOPHILS RELATIVE PERCENT 1 % (BEAKER) (test code = 432) BASOPHILS RELATIVE PERCENT 0 % (BEAKER) (test code = 437) NEUTROPHILS ABSOLUTE COUNT 5.81 K/ L 1.78-5.38 H (BEAKER) (test code = 670) LYMPHOCYTES ABSOLUTE COUNT 1.65 K/ L 1.32-3.57 (BEAKER) (test code = 414) MONOCYTES ABSOLUTE COUNT (BEAKER) 0.49 K/ L 0.30-0.82 (test code = 415) EOSINOPHILS ABSOLUTE COUNT 0.05 K/ L 0.04-0.54 (BEAKER) (test code = 416) BASOPHILS ABSOLUTE COUNT (BEAKER) 0.03 K/ L 0.01-0.08 (test code = 417) IMMATURE GRANULOCYTES-RELATIVE 0.40 % 0.00-1.00 PERCENT (BEAKER) (test code = 2801) URINALYSIS W/ [id number] 22:15:40 Test Item Value Reference Range Interpretation Comments COLOR (BEAKER) (test code = Colorless 470) CLARITY (BEAKER) (test code = Clear 469) SPECIFIC GRAVITY UA (BEAKER) 1.019 1.001-1.035 (test code = 468) PH UA (BEAKER) (test code = 6.0 5.0-8.0 467) PROTEIN UA (BEAKER) (test code Negative Negative = 464) GLUCOSE UA (BEAKER) (test code Negative Negative = 365) KETONES UA (BEAKER) (test code Negative Negative = 371) BILIRUBIN UA (BEAKER) (test Negative Negative code = 462) BLOOD UA (BEAKER) (test code = Small Negative A 461) NITRITE UA (BEAKER) (test code Negative Negative = 465) LEUKOCYTE ESTERASE UA (BEAKER) Negative Negative (test code = 466) UROBILINOGEN UA (BEAKER) (test 0.2 0.2-1.0 code = 463) RBC UA (BEAKER) (test code = 2 /HPF 519) WBC UA (BEAKER) (test code = 1 /HPF 520) SOURCE(BEAKER) (test code = Urine, Voided 1592) [facility] ID - [auto]Manager Hospice ID - techCTA CHEST FOR PULMONARY [id number] 20:21:08[facility] : 1965 Sex: MCTAchest for pulmonary embolus.HISTORY: PE suspected, high probability.TECHNIQUE:Multiple axial images of the chest were performed before and after theuncomplicated administration of IV contrast utilizinga CTA protocol.Coronal and sagittal reformats were created. 3-D imaging on anindependent workstationwas also performed for optimal visualization ofthe arterial system in accordance with the pulmonary angiogram protocol. Oral contrast was not given.FINDINGS: No filling defects are seen in the pulmonary arterialbranches.There is no sign of an aortic aneurysm or dissection. No pericardialeffusion.Thereis a small left pleural effusion.Median sternotomy wires are present. Prior aortic valve replacement.The spleen is mildly enlarged. The gallbladder is distended.IMPRESSION:1. No signs of pulmonary embolism.2. Small left pleural effusion and prior aortic valve replacement.Electronically Signed By: Kirby Viera02/02/2023 20:23 CDTWorkstation Name: [id number] ACID, [id number] 17:51:25 Test Item Value Reference Range Interpretation Comments LACTATE BLOOD VENOUS 0.91 mmol/L 0.50-2.00 Specime n slightly (2) (BEAKER) (test hemolyzed code = 2872) Manager Hosp[facility] ID - ADMINSARS-COV2/INFLUENZA/RSV [id number] 17:28:26 Test Item Value Reference Range Interpretation Comments SARS-COV2/RT-PCR Negative Negative The SARS-Co V-2 target (test code = nucleic acids a re not [id number]) detected in thi s specimen. Negat naif results do not preclude SARS-CoV-2 infe ction and should not be u sed as the sole basis for patient management deci sions. Negative result s must be combined with c linical observations, p atient history, and epidemiological information. A false negative result may occur if a specimen i s improperly josep ected, transported or handled. This SARS CoV-2 test is a rapid, real-ashok e RT-PCR test intended f or the qualitative det ection of nucleic acid fr om SARS-CoV-2 in a nasopharyngeal swab specimen collec olga from individuals milagros pected of COVID-19 by the [facility] ider. INFLUENZA A RT-PCR Negative Negative The Flu A target nucleic (test code = acids are not d etected in 19100710) this specimen. INFLUENZA B RT-PCR Negative Negative The Flu B target nucleic (test code = acids are not d etected in 19100711) this specimen. RSV RT-PCR (test Negative Negative The RSV tar get nucleic code = [id number]) acids are no t detected in this specimen. The presence of SARS-CoV-2/FLU/RSV viral nucleic acids cannot rule out co- infections or disease caused by other viral or bacterial pathogens. As with any molecular test, mutations within the target regions of the Xpert Xpress SARS-CoV-2/Flu/RSV test could affect primer and/or probe binding resulting in failure to detect the presence of virus or the virus being detected less predictably. False negative results may occur if the virus is present at levels below the analytical limit of detection in thisspecimen.This Xpert Xpress SARS-CoV-2/Flu/RSV test is a rapid, real-time RT-PCR test intended for the qualitative detection of nucleic acid from Xpert Xpress SARS-CoV-2/Flu/RSV in a nasopharyngeal swabspecimen collected from individuals suspected of Xpert Xpress SARS-CoV-2/Flu/RSV by their healthcareprovider. Results from hi Xpert Xpress SARS-CoV-2/Flu/RSV test should be correlated with the clinical history, epidemiological data, and other data available to the clinician evaluating the patient. Viral nucleic acid may persist in vivo, independent of virus viability. Detection of analyte target(s)does not imply that the corresponding virus(es) are infectious or are the causative agents for clinical symptoms.This test has not been Food and Drug Administration (FDA) cleared or approved and has been authorized by FDA under an Emergency Use Authorization (EUA). This EUA will be effective until thedeclaration that circumstances exist justifying the authorization of the emergency use of in vitro diagnostic tests for detection and/or diagnosis of COVID-19 is terminated under Section 564(b)(2) of the Act or the EUA is revoked under Section 564(g) of the Act.Fact Sheet for Healthcare Providers:https ://www.[employer].com/Documents/Xpert%20Xpress%20SARS%20CoV-2/Fact%20Sheets/302-390 2%04CVSS-VWO-2%20HEALTHCARE%20PROVIDERS%20FACT%20SHEET.pdfFact Sheet for Healthcare Patients:https://www.[employer]/Docum ents/Xpert%20Xpress%20SARS%20Cov-2/Fact%20Sheets/3023801%14NHMV-HEP-7%20PATIENT %20FACT%20SHEET.pdfBLOOD GAS, [id number] 16:13:03 Test Item Value Reference Range Interpretation Comments PH VENOUS (BEAKER) (test code = 7.43 7.32-7.42 H 701) PCO2 VENOUS (BEAKER) (test code = 40 mm Hg 41-51 L 755) PO2 VENOUS (BEAKER) (test code = 35 mm Hg 25-40 702) O2 SATURATION VENOUS (BEAKER) 64.7 % 40.0-70.0 (test code = 703) HCO3 VENOUS (BEAKER) (test code = 26 mmol/L 21-29 705) BASE EXCESS VENOUS (BEAKER) (test 1.5 mmol/L -2.0-3.0 code = 704) PATIENT TEMPERATURE (BEAKER) (test 38.0 code = 1818) FIO2 (BEAKER) (test code = 1819) 21.0 HIGH SENSITIVITY TROPONIN [id number] 15:21:16 Test Item Value Reference Range Interpretation Comments HIGH SENSITIVITY 6 pg/ml See_Comment [Automated message] TROPONIN I (test code = The system which [id number]) generated this result transmitted ref erence range: <=35. Th e reference range was not used to interpr et this result as normal/abnormal . Manager Hospice ID - ADMINThe ICE CREAM MAN STAT High Sensitivity Troponin-I results should be used in conjunction with other diagnostic information such as ECG, clinical observations and information, and patientsymptoms to aid in the diagnosis of GA. B-TYPE NATRIURETIC FACTOR (BNP)2023-02-02 15:21:16 Test Item Value Reference Range Interpretation Comments B-TYPE NATRIURETIC PEPTIDE (BEAKER) 132 pg/mL 0-100 H (test code = 700) Manager Hosp[facility] ID - ADMINCOMPREHENSIVE METABOLIC [id number] 15:20:14 Test Item Value Reference Range Interpretation Comments TOTAL PROTEIN 8.4 gm/dL 6.0-8.3 H (BEAKER) (test code = 770) ALBUMIN (BEAKER) 4.0 g/dL 3.5-5.0 (test code = 1145) ALKALINE 80 U/L 40-150 PHOSPHATASE (BEAKER) (test code = 346) BILIRUBIN TOTAL 0.7 mg/dL 0.2-1.2 (BEAKER) (test code = 377) SODIUM (BEAKER) 131 meq/L 136-145 L (test code = 381) POTASSIUM (BEAKER) 3.5 meq/L 3.5-5.1 (test code = 379) CHLORIDE (BEAKER) 96 meq/L 98-107 L (test code = 382) CO2 (BEAKER) (test 22 meq/L 22-29 code = 355) BLOOD UREA 11 mg/dL 7-21 NITROGEN (BEAKER) (test code = 354) CREATININE 1.35 mg/dL 0.57-1.25 H (BEAKER) (test code = 358) GLUCOSE RANDOM 106 mg/dL 70-105 H (BEAKER) (test code = 652) CALCIUM (BEAKER) 9.5 mg/dL 8.4-10.2 (test code = 697) AST (SGOT) 16 U/L 5-34 (BEAKER) (test code = 353) ALT (SGPT) 13 U/L 6-55 (BEAKER) (test code = 347) EGFR (BEAKER) 62 Interpretatio n of eGFR (test code = 1092) mL/min/1.[address] age Description sq m Result G1 Ary l or high >=90 G2 Mildly decreased 60-89 G3a Mildl y to moderately 45-5 9 G3b Moderately to s everely 30-44 G4 Severl y decreased 15-29 G5 Kidney failure <15Reported eGF R is based on the CKD-EPI 2021 equation that d oes not use a race coefficientEsti mated GFR is not as accur ate as Creatinine Rayne marsha in predicting glom erular filtration rate . Estimated GFR is not appl icable for dialysis patien ts Manager Hospice ID - ADMINLACTIC ACID, [id number] 15:15:12 Test Item Value Reference Range Interpretation Comments LACTATE BLOOD VENOUS 2.30 mmol/L 0.50-2.00 H Specime n moderately (2) (BEAKER) (test hemolyzed code = 2922) Manager Hospice ID - [id number] 15:06:50 Test Item Value Reference Range Interpretation Comments PARTIAL THROMBOPLASTIN TIME 22.9 seconds 22.5-36.0 (BEAKER) (test code = 760) PROTHROMBIN TIME/[id number] 15:06:08 Test Item Value Reference Range Interpretation Comments PROTIME (BEAKER) 17.8 seconds 11.9-14.2 H (test code = 759) INR (BEAKER) (test 1.56 See_Comment [Automat ed message] code = 370) The system [employer] generated this result transmitted ref erence range: <=5.90. The reference range was not used to int erpret this result as normal/abnormal . RECOMMENDED COUMADIN/WARFARIN INR THERAPY RANGESSTANDARD DOSE: 2.0 - 3.0 Includes: PROPHYLAXIS for venous thrombosis, systemic embolization; TREATMENT for venous thrombosis and/or pulmonary embolus.HIGH RISK: Target INR is 2.5-3.5 for patients with mechanical heart valves.CBC W/PLT COUNT & AUTO [id number] 15:01:28 Test Item Value Reference Range Interpretation Comments WHITE BLOOD CELL COUNT (BEAKER) 10.7 K/ L 3.5-10.5 H (test code = 775) RED BLOOD CELL COUNT (BEAKER) 4.70 M/ L 4.63-6.08 (test code = 761) HEMOGLOBIN (BEAKER) (test code = 12.0 GM/DL 13.7-17.5 L 410) HEMATOCRIT (BEAKER) (test code = 36.0 % 40.1-51.0 L 411) MEAN CORPUSCULAR VOLUME (BEAKER) 77 fL 79-92 L (test code = 753) MEAN CORPUSCULAR HEMOGLOBIN 25.5 pg 25.7-32.2 L (BEAKER) (test code = 751) MEAN CORPUSCULAR HEMOGLOBIN CONC 33.3 GM/DL 32.3-36.5 (BEAKER) (test code = 752) RED CELL DISTRIBUTION WIDTH 14.3 % 11.6-14.4 (BEAKER) (test code = 412) PLATELET COUNT (BEAKER) (test 288 K/CU MM 150-450 code = 756) MEAN PLATELET VOLUME (BEAKER) 9.2 fL 9.4-12.4 L (test code = 754) NUCLEATED RED BLOOD CELLS 0 /100 WBC 0-0 (BEAKER) (test code = 413) NEUTROPHILS RELATIVE PERCENT 83 % (BEAKER) (test code = 429) LYMPHOCYTES RELATIVE PERCENT 11 % (BEAKER) (test code = 430) MONOCYTES RELATIVE PERCENT 5 % (BEAKER) (test code = 431) EOSINOPHILS RELATIVE PERCENT 0 % (BEAKER) (test code = 432) BASOPHILS RELATIVE PERCENT 0 % (BEAKER) (test code = 437) NEUTROPHILS ABSOLUTE COUNT 8.80 K/ L 1.78-5.38 H (BEAKER) (test code = 670) LYMPHOCYTES ABSOLUTE COUNT 1.20 K/ L 1.32-3.57 L (BEAKER) (test code = 414) MONOCYTES ABSOLUTE COUNT (BEAKER) 0.58 K/ L 0.30-0.82 (test code = 415) EOSINOPHILS ABSOLUTE COUNT 0.01 K/ L 0.04-0.54 L (BEAKER) (test code = 416) BASOPHILS ABSOLUTE COUNT (BEAKER) 0.03 K/ L 0.01-0.08 (test code = 417) IMMATURE GRANULOCYTES-RELATIVE 0.40 % 0.00-1.00 PERCENT (BEAKER) (test code = 2801) XR CHEST 1 VIEW PORTABLE / [id number] 15:00:49 [facility] 1965 Sex: MTECHNIQUE: Frontal view of the chest.INDICATION: SHORTNESS OF BREATHfever.COMPARISON: 01/13/2023.FINDINGS:LINES/TUBES: None.HEART AND MEDIASTINUM: Cardiomediastinal contour is stable. Prior mediansternotomy. LUNGS: The lungs are well inflated and clear. No consolidation orpulmonary edema.PLEURA: Small leftpleural effusion. No pneumothorax.SOFT TISSUES AND BONES: Unremarkable.IMPRESSION:Persistent small left pleural effusion. No pulmonary edema or focalconsolidative process.Electronically Signed By: Brown Hylton02/02/2023 15:02 CDTWorkstation Name: [id number] CHEST 2 VIEWS 2023-01-13 16:20:51 [facility] STONE : 1965 Sex: MChest PA and lateralCOMPARISON STUDY: 12/01/2022History provided: R06.02Heart size normal. Small left pleural effusion. Lungs are otherwiseclear and vascularity normal. Prior sternotomy and valvular prosthesis.Electronically Signed By: Cj Leiva01/13/2023 16:56 CDTWorkstation Name: [id number] CULTURE + SMEAR (NON-SPUTUM)2023-01-12 10:14:21 Test Item Value Reference Range Interpretation Comments CULTURE (BEAKER) (test No acid-fast bacilli code = 1095) isolated in 42 days AFB SMEAR (BEAKER) No acid fast bacilli (test code = 994) seen FUNGUS CULTURE + [id number] 08:35:45 Test Item Value Reference Range Interpretation Comments CULTURE (BEAKER) (test No fungus isolated in code = 1095) 28 days FUNGUS SMEAR (BEAKER) No fungi seen (test code = 1406) XR CHEST 1 VIEW PORTABLE / [id number] 10:18:00 [facility] : 1965 Sex: MCLINICAL HISTORY: left pleural effusionTECHNIQUE: 1 view of the chest.COMPARISON: 11/30/2022IMPRESSION:There is increased left basilar atelectasis. A small left pleuraleffusion is unchanged. The right lung appears well-aerated. Thecardiomediastinal silhouette is magnified by technique with sternotomywires. Electronically Signed By: Roxanne Tang12/01/2022 10:20 CDTWorkstation Name: [id number] 05:08:27 Test Item Value Reference Range Interpretation Comments MAGNESIUM (BEAKER) (test code = 2.1 mg/dL 1.6-2.6 627) Manager Hosp[facility] ID - ADMINBASIC METABOLIC [id number] 05:08:26 Test Item Value Reference Range Interpretation Comments SODIUM (BEAKER) 135 meq/L 136-145 L (test code = 381) POTASSIUM 4.0 meq/L 3.5-5.1 (BEAKER) (test code = 379) CHLORIDE (BEAKER) 101 meq/L 98-107 (test code = 382) CO2 (BEAKER) 22 meq/L 22-29 (test code = 355) BLOOD UREA 19 mg/dL 7-21 NITROGEN (BEAKER) (test code = 354) CREATININE 1.23 mg/dL 0.57-1.25 (BEAKER) (test code = 358) GLUCOSE RANDOM 85 mg/dL 70-105 (BEAKER) (test code = 652) CALCIUM (BEAKER) 9.5 mg/dL 8.4-10.2 (test code = 697) EGFR (BEAKER) 69 Interpretatio n of eGFR (test code = mL/min/1.73 values Stage De scription 1092) sq m Result G1 Ary l or high >=90 G2 Mildly decreased 60-89 G3a Mildl y to moderately 45-5 9 G3b Moderately to s everely 30-44 G4 Severl y decreased 15-29 G5 Kidney failure <15Reported eGF R is based on the CKD-EPI 2020 equation that d oes not use a race coefficientEsti mated GFR is not as accur ate as Creatinine Rayne larson in predicting glom erular filtration rate . Estimated GFR is not appl icable for dialysis patien ts Manager [facility] ID - ADMINB-TYPE NATRIURETIC FACTOR (BNP)2022-12-01 04:14:41 Test Item Value Reference Range Interpretation Comments B-TYPE NATRIURETIC PEPTIDE (BEAKER) 112 pg/mL 0-100 H (test code = 700) Manager [facility]osp[facility] ID - MMCBC (HEMOGRAM ONLY)2022-12-01 03:58:38 Test Item Value Reference Range Interpretation Comments WHITE BLOOD CELL COUNT (BEAKER) 10.4 K/ L 3.5-10.5 (test code = 775) RED BLOOD CELL COUNT (BEAKER) 4.45 M/ L 4.63-6.08 L (test code = 761) HEMOGLOBIN (BEAKER) (test code = 12.2 GM/DL 13.7-17.5 L 410) HEMATOCRIT (BEAKER) (test code = 36.8 % 40.1-51.0 L 411) MEAN CORPUSCULAR VOLUME (BEAKER) 83 fL 79-92 (test code = 753) MEAN CORPUSCULAR HEMOGLOBIN 27.4 pg 25.7-32.2 (BEAKER) (test code = 751) MEAN CORPUSCULAR HEMOGLOBIN CONC 33.2 GM/DL 32.3-36.5 (BEAKER) (test code = 752) RED CELL DISTRIBUTION WIDTH 12.3 % 11.6-14.4 (BEAKER) (test code = 412) PLATELET COUNT (BEAKER) (test 463 K/CU MM 150-450 H code = 756) MEAN PLATELET VOLUME (BEAKER) 9.6 fL 9.4-12.4 (test code = 754) NUCLEATED RED BLOOD CELLS 0 /100 WBC 0-0 (BEAKER) (test code = 413) XR CHEST 1 VIEW PORTABLE / [id number] 12:27:28 [facility] : 1965 Sex: MCLINICAL HISTORY: CT removalTECHNIQUE: 1 view of the chest.COMPARISON: 11/29/2022IMPRESSION:No pneumothorax status post chest tube removal. Elevation lefthemidiaphragm is again seen with adjacent left lung base atelectasis andblunting of the costophrenic angle. The right lung appears well-aerated.The cardiomediastinal silhouette is unchanged with sternotomy.Electronically Signed By: Roxanne Tang312:29 CDTWorkstation Name: [id number] METABOLIC PANEL 2022-11-30 06:25:17 Test Item Value Reference Range Interpretation Comments SODIUM (BEAKER) 135 meq/L 136-145 L (test code = 381) POTASSIUM 3.9 meq/L 3.5-5.1 (BEAKER) (test code = 379) CHLORIDE (BEAKER) 101 meq/L 98-107 (test code = 382) CO2 (BEAKER) 22 meq/L 22-29 (test code = 355) BLOOD UREA 21 mg/dL 7-21 NITROGEN (BEAKER) (test code = 354) CREATININE 1.31 mg/dL 0.57-1.25 H (BEAKER) (test code = 358) GLUCOSE RANDOM 87 mg/dL 70-105 (BEAKER) (test code = 652) CALCIUM (BEAKER) 9.6 mg/dL 8.4-10.2 (test code = 697) EGFR (BEAKER) 64 Interpretatio n of eGFR (test code = mL/min/1.73 values Stage De scription 1092) sq m Result G1 Ary l or high >=90 G2 Mildly decreased 60-89 G3a Mildl y to moderately 45-5 9 G3b Moderately to s everely 30-44 G4 Sever ly decreased 15-29 G5 Kidney failure <15Repo rted eGFR is based on the CKD-EPI 2020 equation t hat does not use a race coefficientEsti mated GFR is not as accur ate as Creatinine Rayne larson in predicting glom erular filtration rate . Estimated GFR is not appl icable for dialysis patien ts Manager [facility] ID - [id number] 06:25:17 Test Item Value Reference Range Interpretation Comments MAGNESIUM (BEAKER) (test code = 2.2 mg/dL 1.6-2.6 627) Manager Hosp[facility] ID - ADMINCBC (HEMOGRAM ONLY)2022-11-30 04:46:03 Test Item Value Reference Range Interpretation Comments WHITE BLOOD CELL COUNT (BEAKER) 9.3 K/ L 3.5-10.5 (test code = 775) RED BLOOD CELL COUNT (BEAKER) 4.62 M/ L 4.63-6.08 L (test code = 761) HEMOGLOBIN (BEAKER) (test code = 12.9 GM/DL 13.7-17.5 L 410) HEMATOCRIT (BEAKER) (test code = 38.5 % 40.1-51.0 L 411) MEAN CORPUSCULAR VOLUME (BEAKER) 83 fL 79-92 (test code = 753) MEAN CORPUSCULAR HEMOGLOBIN 27.9 pg 25.7-32.2 (BEAKER) (test code = 751) MEAN CORPUSCULAR HEMOGLOBIN CONC 33.5 GM/DL 32.3-36.5 (BEAKER) (test code = 752) RED CELL DISTRIBUTION WIDTH 12.4 % 11.6-14.4 (BEAKER) (test code = 412) PLATELET COUNT (BEAKER) (test 459 K/CU MM 150-450 H code = 756) MEAN PLATELET VOLUME (BEAKER) 9.4 fL 9.4-12.4 (test code = 754) NUCLEATED RED BLOOD CELLS 0 /100 WBC 0-0 (BEAKER) (test code = 413) BODY FLUID CULTURE + GRAM [id number] 17:12:36 Test Item Value Reference Range Interpretation Comments CULTURE (BEAKER) (test code No growth = 1095) GRAM STAIN RESULT (BEAKER) No WBCs (test code = 1123) GRAM STAIN RESULT (BEAKER) No organisms seen (test code = 65289) BODY FLUID CULTURE + GRAM [id number] 17:12:12 Test Item Value Reference Range Interpretation Comments CULTURE (BEAKER) (test code No growth = 1095) GRAM STAIN RESULT (BEAKER) <1+ WBCs (test code = 1123) GRAM STAIN RESULT (BEAKER) No organisms seen (test code = 63327) COMPREHENSIVE METABOLIC [id number] 10:50:18 Test Item Value Reference Range Interpretation Comments TOTAL PROTEIN 7.0 gm/dL 6.0-8.3 Specimen sligh tly (BEAKER) (test hemolyzed code = 770) ALBUMIN (BEAKER) 4.0 g/dL 3.5-5.0 Specimen sl ightly (test code = 1145) hemolyzed ALKALINE 76 U/L 40-150 PHOSPHATASE (BEAKER) (test code = 346) BILIRUBIN TOTAL 0.3 mg/dL 0.2-1.2 Specimen sli ghtly (BEAKER) (test hemolyzed code = 377) SODIUM (BEAKER) 133 meq/L 136-145 L (test code = 381) POTASSIUM (BEAKER) 4.0 meq/L 3.5-5.1 Specimen slightly (test code = 379) hemolyzed CHLORIDE (BEAKER) 100 meq/L 98-107 (test code = 382) CO2 (BEAKER) (test 23 meq/L 22-29 code = 355) BLOOD UREA 21 mg/dL 7-21 NITROGEN (BEAKER) (test code = 354) CREATININE 1.31 mg/dL 0.57-1.25 H Specimen slight ly (BEAKER) (test hemolyzed code = 358) GLUCOSE RANDOM 90 mg/dL 70-105 (BEAKER) (test code = 652) CALCIUM (BEAKER) 9.5 mg/dL 8.4-10.2 (test code = 697) AST (SGOT) 17 U/L 5-34 Specimen slight ly (BEAKER) (test hemolyzed code = 353) ALT (SGPT) 14 U/L 6-55 Specimen slight ly (BEAKER) (test hemolyzed code = 347) EGFR (BEAKER) 64 Interpretatio n of eGFR (test code = 1092) mL/min/1.[address] age Description sq m Result G1 Norm al or high >=90 G2 Mildly decreased 60-89 G3a Mildl y to moderately 45-5 9 G3b Moderately to s everely 30-44 G4 Severl y decreased 15-29 G5 Kidney failure <15Reported eGF R is based on the CKD-EPI 2020 equation that d oes not use a race coefficientEsti mated GFR is not as accur ate as Creatinine Rayne larson in predicting glom erular filtration rate . Estimated GFR is not appl icable for dialysis patien ts LACTATE DEHYDROGENASE (LDH)2022-11-29 10:47:49 Test Item Value Reference Range Interpretation Comments LACTATE DEHYDROGENASE 250 U/L 125-220 H Specim en slightly (BEAKER) (test code = hemoly zed 635) [id number] 10:38:57 Test Item Value Reference Range Interpretation Comments MAGNESIUM (BEAKER) (test code = 2.1 mg/dL 1.6-2.6 627) XR CHEST 1 VIEW PORTABLE / [id number] 09:33:26 [facility] 1965 Sex: MCHEST ONE VIEWHISTORY: Left pleural effusion, chest tubeCOMPARISON: 11/28/2022FINDINGS:Single portable AP examination of the chest was performed. A left-sided chest tube remains in place. Small left pleural effusionand mild left basilar atelectasis are similar in appearance. Nopneumothorax is identified.The right lung is clear. The left diaphragm remains mildly elevated.Cardiac shadow normal in size. Sternotomy wires are present.Electronically Signed By: Pradeep Oneil11/29/2022 09:35 CDTWorkstation Name: [id number] (HEMOGRAM ONLY) 2022-11-29 04:48:14 Test Item Value Reference Range Interpretation Comments WHITE BLOOD CELL COUNT (BEAKER) 10.9 K/ L 3.5-10.5 H (test code = 775) RED BLOOD CELL COUNT (BEAKER) 4.42 M/ L 4.63-6.08 L (test code = 761) HEMOGLOBIN (BEAKER) (test code = 12.3 GM/DL 13.7-17.5 L 410) HEMATOCRIT (BEAKER) (test code = 37.0 % 40.1-51.0 L 411) MEAN CORPUSCULAR VOLUME (BEAKER) 84 fL 79-92 (test code = 753) MEAN CORPUSCULAR HEMOGLOBIN 27.8 pg 25.7-32.2 (BEAKER) (test code = 751) MEAN CORPUSCULAR HEMOGLOBIN CONC 33.2 GM/DL 32.3-36.5 (BEAKER) (test code = 752) RED CELL DISTRIBUTION WIDTH 12.4 % 11.6-14.4 (BEAKER) (test code = 412) PLATELET COUNT (BEAKER) (test 447 K/CU MM 150-450 code = 756) MEAN PLATELET VOLUME (BEAKER) 9.6 fL 9.4-12.4 (test code = 754) NUCLEATED RED BLOOD CELLS 0 /100 WBC 0-0 (BEAKER) (test code = 413) XR CHEST 1 VIEW PORTABLE / [id number] 08:17:15 [facility] : 1965 Sex: MEXAMINATION: XR CHEST 1 VIEW PORTABLE / BEDSIDE.INDICATION: 56-year-old male with left pleural effusion.COMPARISON: Chest radiograph dated 11/27/2022.FINDINGS/ IMPRESSION:A left-sided chest tube is noted. Left basilar atelectasis with smallresidual left pleural effusion. No definite pneumothorax. Elevated lefthemidiaphragm. Other findings remain unchanged.Electronically Signed By: Pradeep Franz11/28/2022 08:19 CDTWorkstation Name: [id number] METABOLIC [id number] 07:29:32 Test Item Value Reference Range Interpretation Comments SODIUM (BEAKER) 136 meq/L 136-145 (test code = 381) POTASSIUM 3.3 meq/L 3.5-5.1 L (BEAKER) (test code = 379) CHLORIDE (BEAKER) 107 meq/L 98-107 (test code = 382) CO2 (BEAKER) 18 meq/L 22-29 L (test code = 355) BLOOD UREA 16 mg/dL 7-21 NITROGEN (BEAKER) (test code = 354) CREATININE 0.95 mg/dL 0.57-1.25 (BEAKER) (test code = 358) GLUCOSE RANDOM 70 mg/dL 70-105 (BEAKER) (test code = 652) CALCIUM (BEAKER) 8.0 mg/dL 8.4-10.2 L (test code = 697) EGFR (BEAKER) 94 Interpretatio n of eGFR (test code = mL/min/1.73 values Stage De scription 1092) sq m Result G1 Ary l or high >=90 G2 Mildly decreased 60-89 G3a Mildl y to moderately 45-5 9 G3b Moderately to s everely 30-44 G4 Severl y decreased 15-29 G5 Kidney failure <15Reported eGF R is based on the CKD-EPI 2020 equation that d oes not use a race coefficientEsti mated GFR is not as accur ate as Creatinine Rayne larson in predicting glom erular filtration rate . Estimated GFR is not appl icable for dialysis patien ts Manager [facility] ID - [id number] 07:29:32 Test Item Value Reference Range Interpretation Comments MAGNESIUM (BEAKER) (test code = 1.8 mg/dL 1.6-2.6 627) [facility] ID - ADMINB-TYPE NATRIURETIC FACTOR (BNP)2022-11-28 06:32:11 Test Item Value Reference Range Interpretation Comments B-TYPE NATRIURETIC PEPTIDE (BEAKER) 127 pg/mL 0-100 H (test code = 700) Manager [facility] ID - mmCBC (HEMOGRAM ONLY)2022-11-28 05:52:42 Test Item Value Reference Range Interpretation Comments WHITE BLOOD CELL COUNT (BEAKER) 9.3 K/ L 3.5-10.5 (test code = 775) RED BLOOD CELL COUNT (BEAKER) 3.92 M/ L 4.63-6.08 L (test code = 761) HEMOGLOBIN (BEAKER) (test code = 11.1 GM/DL 13.7-17.5 L 410) HEMATOCRIT (BEAKER) (test code = 33.1 % 40.1-51.0 L 411) MEAN CORPUSCULAR VOLUME (BEAKER) 84 fL 79-92 (test code = 753) MEAN CORPUSCULAR HEMOGLOBIN 28.3 pg 25.7-32.2 (BEAKER) (test code = 751) MEAN CORPUSCULAR HEMOGLOBIN CONC 33.5 GM/DL 32.3-36.5 (BEAKER) (test code = 752) RED CELL DISTRIBUTION WIDTH 12.6 % 11.6-14.4 (BEAKER) (test code = 412) PLATELET COUNT (BEAKER) (test 363 K/CU MM 150-450 code = 756) MEAN PLATELET VOLUME (BEAKER) 9.9 fL 9.4-12.4 (test code = 754) NUCLEATED RED BLOOD CELLS 0 /100 WBC 0-0 (BEAKER) (test code = 413) XR CHEST 1 VIEW PORTABLE / [id number] 12:21:53 [facility] 1965 Sex: MHISTORY: Status post chest tube placementCOMPARISON: 11/26/2022FINDINGS: Interval placement of a left-sided chest tube. Intervaldrainage of the previously visualized large left pleural effusion. Mildsubsegmental atelectasis at the left lung base. Right lung clear. Nopneumothorax. Minimal residual left-sided pleural effusion.The heart shadow is normal in size. Sternotomy wires are present.The thoracic aorta is mildly tortuous..Electronically Signed By: Pradeep Oneil11/27/2022 12:23 CDTWorkstation Name: [id number] FLUID CELL COUNT WITH [id number] 11:57:26 Test Item Value Reference Range Interpretation Comments APPEARANCE FLUID (BEAKER) (test Hazy Clear A code = 510) COLOR FLUID (BEAKER) (test code Ashley Colorless, Straw A = 511) RBC FLUID (BEAKER) (test code = 52615 /cu mm <=1 H 513) TOTAL NUCLEATED CELL COUNT 1687 /cu mm <=5 H (BEAKER) (test code = 1442) LINING CELLS/OTHERS DIFF'D 1 (BEAKER) (test code = 1589) ADJUSTED WBC FLUID (BEAKER) 1670 /cu mm <=5 H (test code = 1691) LINING CELLS/OTHERS, CALCULATED 17 /cu mm <=1 H (BEAKER) (test code = 1590) NEUTROPHILS FLUID (BEAKER) 30 % (test code = 1656) LYMPHS FLUID (BEAKER) (test 52 % code = 488) MONO/MACROPHAGE FLUID (BEAKER) 18 % (test code = 489) EOSINOPHILS FLUID (BEAKER) 0 % (test code = 491) BASO FLUID (BEAKER) (test code 0 % = 492) CONTAINER BODY FLUID (BEAKER) EDTA Tube (test code = 2873) BODY FLUID CELL COUNT WITH [id number] 11:54:57 Test Item Value Reference Range Interpretation Comments APPEARANCE FLUID (BEAKER) (test Hazy Clear A code = 510) COLOR FLUID (BEAKER) (test code Ashley Colorless, Straw A = 511) RBC FLUID (BEAKER) (test code = 08374 /cu mm <=1 H 513) TOTAL NUCLEATED CELL COUNT 1620 /cu mm <=5 H (BEAKER) (test code = 1442) LINING CELLS/OTHERS DIFF'D 0 (BEAKER) (test code = 1589) ADJUSTED WBC FLUID (BEAKER) 1620 /cu mm <=5 H (test code = 1691) LINING CELLS/OTHERS, CALCULATED 0 /cu mm <=1 (BEAKER) (test code = 1590) NEUTROPHILS FLUID (BEAKER) 37 % (test code = 1656) LYMPHS FLUID (BEAKER) (test 44 % code = 488) MONO/MACROPHAGE FLUID (BEAKER) 19 % (test code = 489) EOSINOPHILS FLUID (BEAKER) 0 % (test code = 491) BASO FLUID (BEAKER) (test code 0 % = 492) CONTAINER BODY FLUID (BEAKER) EDTA Tube (test code = 2873) [id number] 05:37:38 Test Item Value Reference Range Interpretation Comments MAGNESIUM (BEAKER) 2.0 mg/dL 1.6-2.6 Specimen slightly (test code = 627) hemolyzed Manager [facility] ID - ADMINBASIC METABOLIC [id number] 05:37:38 Test Item Value Reference Range Interpretation Comments SODIUM (BEAKER) 133 meq/L 136-145 L (test code = 381) POTASSIUM 4.1 meq/L 3.5-5.1 Specimen slight ly (BEAKER) (test hemolyzed code = 379) CHLORIDE (BEAKER) 100 meq/L 98-107 (test code = 382) CO2 (BEAKER) 19 meq/L 22-29 L (test code = 355) BLOOD UREA 18 mg/dL 7-21 NITROGEN (BEAKER) (test code = 354) CREATININE 1.14 mg/dL 0.57-1.25 Specimen slight ly (BEAKER) (test hemolyzed code = 358) GLUCOSE RANDOM 80 mg/dL 70-105 (BEAKER) (test code = 652) CALCIUM (BEAKER) 9.0 mg/dL 8.4-10.2 (test code = 697) EGFR (BEAKER) 76 Interpretatio n of eGFR (test code = mL/min/1.73 values Stage De scription 1092) sq m Result G1 Ary l or high >=90 G2 Mildly decreased 60-89 G3a Mildl y to moderately 45-5 9 G3b Moderately to s everely 30-44 G4 Severl y decreased 15-29 G5 Kidney failure <15Reported eGF R is based on the CKD-EPI 2020 equation that d oes not use a race coefficientEsti mated GFR is not as accur ate as Creatinine Rayne marsha in predicting glom erular filtration rate . Estimated GFR is not appl icable for dialysis patien ts Manager [facility] ID - ADMINCBC (HEMOGRAM ONLY)2022-11-27 05:02:11 Test Item Value Reference Range Interpretation Comments WHITE BLOOD CELL COUNT (BEAKER) 13.3 K/ L 3.5-10.5 H (test code = 775) RED BLOOD CELL COUNT (BEAKER) 4.35 M/ L 4.63-6.08 L (test code = 761) HEMOGLOBIN (BEAKER) (test code = 12.1 GM/DL 13.7-17.5 L 410) HEMATOCRIT (BEAKER) (test code = 37.1 % 40.1-51.0 L 411) MEAN CORPUSCULAR VOLUME (BEAKER) 85 fL 79-92 (test code = 753) MEAN CORPUSCULAR HEMOGLOBIN 27.8 pg 25.7-32.2 (BEAKER) (test code = 751) MEAN CORPUSCULAR HEMOGLOBIN CONC 32.6 GM/DL 32.3-36.5 (BEAKER) (test code = 752) RED CELL DISTRIBUTION WIDTH 12.6 % 11.6-14.4 (BEAKER) (test code = 412) PLATELET COUNT (BEAKER) (test 411 K/CU MM 150-450 code = 756) MEAN PLATELET VOLUME (BEAKER) 9.9 fL 9.4-12.4 (test code = 754) NUCLEATED RED BLOOD CELLS 0 /100 WBC 0-0 (BEAKER) (test code = 413) C-REACTIVE [id number] 19:45:08 Test Item Value Reference Range Interpretation Comments C-REACTIVE PROTEIN (BEAKER) (test 15.72 mg/dL 0.00-0.50 H code = 676) Manager [facility] ID - MMCT CHEST WITHOUT IV [id number] 19:44:56 [facility] : 1965 Sex: MTECHNIQUE: CT scan of the chest WITHOUT intravenous contrast. Dosemodulation, iterative reconstruction, and/or weight-based adjustment ofthe mA/kV was utilized to reduce the radiation dose to as low asreasonably achievable.INDICATION: Pneumonia, effusion or abscess suspected, xray done.COMPARISON: Chest radiograph dating back to 10/15/2022.FINDINGS: ABSENCE OF INTRAVENOUS CONTRAST DECREASES SENSITIVITY FOR DETECTION OFFOCAL LESIONS AND VASCULAR PATHOLOGY.LINES/TUBES: None.LUNGS AND AIRWAYS: The left lower lobe is nearly collapsed. There iscollapse of a majority of the left upper lobe. A right middle lobepulmonary nodule measures 0.1 cm on coronal image 59. No follow-upimaging is recommended given the location of this nodule.PLEURA: Large left pleural effusionHEART AND MEDIASTINUM: The visualized thyroid gland is normal. Nosignificant mediastinal, hilar, or axillary lymphadenopathy. Prioraortic valve replacement and ascending thoracic aortic graft. There issome rounded fluid intermixed with fat adjacent to the ascendingthoracic aorta. The largest portion of fluid measures 2.1 cm on axialimage 28. Mild calcification of the left circumflex coronary artery.SOFT TISSUES AND BONES: Moderate degenerativechanges of theglenohumeral joints. Subacute, healing fractures of the left lateralfirst, third, and fourth ribs.UPPER ABDOMEN: Recent median sternotomy.IMPRESSION:1. Large left pleural effusion with near collapse of the left lowerlobe and collapse of a majority of the left upper lobe. No definitebronchial or perihilar mass is visualized, but this would be betterevaluated with intravenous contrast. Further evaluation with intravenouscontrast after the pleural effusion has been addressed is recommended .2. Intermixed fluid and fat adjacent to the ascending thoracic aorticgraft could be postsurgical changes such as fat necrosis, but this canbe better evaluated with intravenous contrast.3. Subacute, healing fractures of the left lateral first, third, andfourth ribs.Electronically Signed By: Jaylen Madera 19:48 CDTWorkstation Name: [id number] 19:32:59 Test Item Value Reference Range Interpretation Comments TRIGLYCERIDES (BEAKER) (test code = 96 mg/dL 540) CHOLESTEROL (BEAKER) (test code = 123 mg/dL 631) HDL CHOLESTEROL (MICHELET) (test code 36 mg/dL = 976) LDL CHOLESTEROL CALCULATED (MICHELET) 68 mg/dL (test code = 633) Triglyceride Reference Range: Low Risk <150 Borderline 150-199 High Risk 200- 499 Very High Risk >=500Cholesterol Reference Range: Low Risk <200 Borderline 200-239 High Risk >240HDL Cholesterol Reference Range: Low Risk >=60 High Risk <40LDL Cholesterol Reference Range: Optimal <100 Near Optimal 100-129 Borderline 130-159 High 160-189 Very High >=190 Manager H[facility] ID - MMXR CHEST 1 VIEW PORTABLE / [id number] 13:54:50 [facility] : 1965 Sex: MXR CHEST 1 VIEW PORTABLE / BEDSIDECLINICAL HISTORY: SHORTNESS OF BREATH TECHNIQUE: Single view of the chest.COMPARISON: November 22, 2022IMPRESSION:Increased left lung opacity compatible with large effusionwith possible superimposed atelectasis or pneumonia. Enlarged cardiacsilhouette is stable. Right lung iswell aerated. No pneumothorax.Stable osseous structures. Median sternotomy wires noted.Electronically Signed By: Jagdeep Aguirre11/26/2022 13:56 CDTWorkstation Name: [id number] SENSITIVITY TROPONIN [id number] 13:15:29 Test Item Value Reference Range Interpretation Comments HIGH SENSITIVITY TROPONIN I (test 19 pg/ml <=35 code = 0428812) Manager [facility] ID - ADMINThe ICE CREAM MAN STAT High Sensitivity Troponin-I results should be used in conjunction with other diagnostic information such as ECG, clinical observations and information, and patientsymptoms to aid in the diagnosis of GA. B-TYPE NATRIURETIC FACTOR (BNP)2022-11-26 13:15:06 Test Item Value Reference Range Interpretation Comments B-TYPE NATRIURETIC PEPTIDE (BEAKER) 236 pg/mL 0-100 H (test code = 700) Manager [facility] ID - ADMINPROTHROMBIN [id number] 13:10:22 Test Item Value Reference Range Interpretation Comments PROTIME (BEAKER) (test code = 17.2 seconds 11.9-14.2 H 759) INR (BEAKER) (test code = 370) 1.50 <=5.90 RECOMMENDED COUMADIN/WARFARIN INR THERAPY RANGESSTANDARD DOSE: 2.0 - 3.0 Includes: PROPHYLAXIS for venous thrombosis, systemic embolization; TREATMENT for venous thrombosis and/or pulmonary embolus.HIGH RISK: Target INR is 2.5-3.5 for patients with mechanical heart valves.COMPREHENSIVE METABOLIC PANEL 2022-11-26 13:08:16 Test Item Value Reference Range Interpretation Comments TOTAL PROTEIN 8.3 gm/dL 6.0-8.3 (BEAKER) (test code = 770) ALBUMIN (BEAKER) 4.3 g/dL 3.5-5.0 (test code = 1145) ALKALINE 90 U/L 40-150 PHOSPHATASE (BEAKER) (test code = 346) BILIRUBIN TOTAL 0.6 mg/dL 0.2-1.2 (BEAKER) (test code = 377) SODIUM (BEAKER) 135 meq/L 136-145 L (test code = 381) POTASSIUM (BEAKER) 4.5 meq/L 3.5-5.1 (test code = 379) CHLORIDE (BEAKER) 100 meq/L 98-107 (test code = 382) CO2 (BEAKER) (test 20 meq/L 22-29 L code = 355) BLOOD UREA 15 mg/dL 7-21 NITROGEN (BEAKER) (test code = 354) CREATININE 1.17 mg/dL 0.57-1.25 (BEAKER) (test code = 358) GLUCOSE RANDOM 94 mg/dL 70-105 (BEAKER) (test code = 652) CALCIUM (BEAKER) 10.0 mg/dL 8.4-10.2 (test code = 697) AST (SGOT) 15 U/L 5-34 (BEAKER) (test code = 353) ALT (SGPT) 16 U/L 6-55 (BEAKER) (test code = 347) EGFR (BEAKER) 74 Interpretatio n of eGFR (test code = 1092) mL/min/1.[address] age Description sq m Result G1 Ary l or high >=90 G2 Mildly decreased 60-89 G3a Mildl y to moderately 45-5 9 G3b Moderately to s everely 30-44 G4 Severl y decreased 15-29 G5 Kidney failure <15Reported eGF R is based on the CKD-EPI 2020 equation that d oes not use a race coefficientEsti mated GFR is not as accur ate as Creatinine Rayne marsha in predicting glom erular filtration rate . Estimated GFR is not appl icable for dialysis patien ts Manager [facility] ID - ADMINCBC W/PLT COUNT & AUTO [id number] 12:57:03 Test Item Value Reference Range Interpretation Comments WHITE BLOOD CELL COUNT (BEAKER) 17.4 K/ L 3.5-10.5 H (test code = 775) RED BLOOD CELL COUNT (BEAKER) 4.78 M/ L 4.63-6.08 (test code = 761) HEMOGLOBIN (BEAKER) (test code = 13.5 GM/DL 13.7-17.5 L 410) HEMATOCRIT (BEAKER) (test code = 40.7 % 40.1-51.0 411) MEAN CORPUSCULAR VOLUME (BEAKER) 85 fL 79-92 (test code = 753) MEAN CORPUSCULAR HEMOGLOBIN 28.2 pg 25.7-32.2 (BEAKER) (test code = 751) MEAN CORPUSCULAR HEMOGLOBIN CONC 33.2 GM/DL 32.3-36.5 (BEAKER) (test code = 752) RED CELL DISTRIBUTION WIDTH 12.8 % 11.6-14.4 (BEAKER) (test code = 412) PLATELET COUNT (BEAKER) (test 528 K/CU MM 150-450 H code = 756) MEAN PLATELET VOLUME (BEAKER) 9.8 fL 9.4-12.4 (test code = 754) NUCLEATED RED BLOOD CELLS 0 /100 WBC 0-0 (BEAKER) (test code = 413) NEUTROPHILS RELATIVE PERCENT 82 % (BEAKER) (test code = 429) LYMPHOCYTES RELATIVE PERCENT 10 % (BEAKER) (test code = 430) MONOCYTES RELATIVE PERCENT 6 % (BEAKER) (test code = 431) EOSINOPHILS RELATIVE PERCENT 1 % (BEAKER) (test code = 432) BASOPHILS RELATIVE PERCENT 1 % (BEAKER) (test code = 437) NEUTROPHILS ABSOLUTE COUNT 14.34 K/ L 1.78-5.38 H (BEAKER) (test code = 670) LYMPHOCYTES ABSOLUTE COUNT 1.77 K/ L 1.32-3.57 (BEAKER) (test code = 414) MONOCYTES ABSOLUTE COUNT (BEAKER) 1.10 K/ L 0.30-0.82 H (test code = 415) EOSINOPHILS ABSOLUTE COUNT 0.09 K/ L 0.04-0.54 (BEAKER) (test code = 416) BASOPHILS ABSOLUTE COUNT (BEAKER) 0.08 K/ L 0.01-0.08 (test code = 417) IMMATURE GRANULOCYTES-RELATIVE 0.30 % 0.00-1.00 PERCENT (BEAKER) (test code = 2801) XR CHEST 2 [id number] 10:36:56 [facility] : 1965 Sex: MXR CHEST 2 VIEWSCLINICAL HISTORY: Shortness of breath, pleural effusionTECHNIQUE: 2 views of the chestCOMPARISON: 11/18/2022IMPRESSION:Large left pleural effusion is stable. No new lung consolidation. Noright pleural effusion. No pneumothorax. Enlarged cardiac silhouettecompatible with cardiomegaly. Mediastinal contours within normal limits.Median sternotomy and cardiac valve prosthesis. The osseous structuresappear stable.Electronically Signed By: Jagdeep Aguirre11/22/2022 10:39 CDTWorkstation Name: [id number] CHEST 2 [id number] 17:34:59 [facility] : 1965 Sex: MEXAMINATION: XR CHEST 2 VIEWS INDICATION: SHORTNESS OF BREATHCOMPARISON: November 04, 2022 FINDINGS:LINES/TUBES: None LUNGS: The lungs are well inflated. No focal airspace consolidation.PLEURA: There is interval development of large left pleural effusion.MEDIASTINUM: The cardiac size is enlarged.BONES/SOFT TISSUES: No acute osseous injury.ABDOMEN: No free air under the diaphragm.IMPRESSION:Cardiomegaly with large left pleural effusion.Electronically Signed By: Dustin Dang11/18/2022 17:37 CDTWorkstation Name: [id number] LAB ORDER 2022-11-18 16:17:36 Test Item Value Reference Range Interpretation Comments SCAN RESULT (test code = 9162326) NU MISCELLANEOUS LAB [id number] 16:13:17 Test Item Value Reference Range Interpretation Comments SCAN RESULT (test code = 7432515) NU BASIC METABOLIC [id number] 06:26:01 Test Item Value Reference Range Interpretation Comments SODIUM (BEAKER) 135 meq/L 136-145 L (test code = 381) POTASSIUM 4.1 meq/L 3.5-5.1 (BEAKER) (test code = 379) CHLORIDE (BEAKER) 102 meq/L 98-107 (test code = 382) CO2 (BEAKER) 20 meq/L 22-29 L (test code = 355) BLOOD UREA 18 mg/dL 7-21 NITROGEN (BEAKER) (test code = 354) CREATININE 0.97 mg/dL 0.57-1.25 (BEAKER) (test code = 358) GLUCOSE RANDOM 98 mg/dL 70-105 (BEAKER) (test code = 652) CALCIUM (BEAKER) 9.6 mg/dL 8.4-10.2 (test code = 697) EGFR (BEAKER) 92 Interpretatio n of eGFR (test code = mL/min/1.73 values Stage De scription 1092) sq m Result G1 Ary l or high >=90 G2 Mildly decreased 60-89 G3a Mildl y to moderately 45-5 9 G3b Moderately to s everely 30-44 G4 Severl y decreased 15-29 G5 Kidney failure <15Reported eGF R is based on the CKD-EPI 2020 equation that d oes not use a race coefficientEsti mated GFR is not as accur ate as Creatinine Rayne marsha in predicting glom erular filtration rate . Estimated GFR is not appl icable for dialysis patien ts Manager [facility] ID - [id number] 06:26:01 Test Item Value Reference Range Interpretation Comments MAGNESIUM (BEAKER) (test code = 2.3 mg/dL 1.6-2.6 627) Manager [facility] ID - MMCBC W/PLT COUNT & AUTO [id number] 05:58:47 Test Item Value Reference Range Interpretation Comments WHITE BLOOD CELL COUNT (BEAKER) 14.7 K/ L 3.5-10.5 H (test code = 775) RED BLOOD CELL COUNT (BEAKER) 4.17 M/ L 4.63-6.08 L (test code = 761) HEMOGLOBIN (BEAKER) (test code = 12.3 GM/DL 13.7-17.5 L 410) HEMATOCRIT (BEAKER) (test code = 36.0 % 40.1-51.0 L 411) MEAN CORPUSCULAR VOLUME (BEAKER) 86 fL 79-92 (test code = 753) MEAN CORPUSCULAR HEMOGLOBIN 29.5 pg 25.7-32.2 (BEAKER) (test code = 751) MEAN CORPUSCULAR HEMOGLOBIN CONC 34.2 GM/DL 32.3-36.5 (BEAKER) (test code = 752) RED CELL DISTRIBUTION WIDTH 13.4 % 11.6-14.4 (BEAKER) (test code = 412) PLATELET COUNT (BEAKER) (test 564 K/CU MM 150-450 H code = 756) MEAN PLATELET VOLUME (BEAKER) 10.0 fL 9.4-12.4 (test code = 754) NUCLEATED RED BLOOD CELLS 0 /100 WBC 0-0 (BEAKER) (test code = 413) NEUTROPHILS RELATIVE PERCENT 76 % (BEAKER) (test code = 429) LYMPHOCYTES RELATIVE PERCENT 14 % (BEAKER) (test code = 430) MONOCYTES RELATIVE PERCENT 7 % (BEAKER) (test code = 431) EOSINOPHILS RELATIVE PERCENT 2 % (BEAKER) (test code = 432) BASOPHILS RELATIVE PERCENT 1 % (BEAKER) (test code = 437) NEUTROPHILS ABSOLUTE COUNT 11.23 K/ L 1.78-5.38 H (BEAKER) (test code = 670) LYMPHOCYTES ABSOLUTE COUNT 2.04 K/ L 1.32-3.57 (BEAKER) (test code = 414) MONOCYTES ABSOLUTE COUNT (BEAKER) 0.98 K/ L 0.30-0.82 H (test code = 415) EOSINOPHILS ABSOLUTE COUNT 0.29 K/ L 0.04-0.54 (BEAKER) (test code = 416) BASOPHILS ABSOLUTE COUNT (BEAKER) 0.10 K/ L 0.01-0.08 H (test code = 417) IMMATURE GRANULOCYTES-RELATIVE 0.30 % 0.00-1.00 PERCENT (BEAKER) (test code = 2801) [id number] 05:50:50 Test Item Value Reference Range Interpretation Comments PARTIAL THROMBOPLASTIN TIME 32.5 seconds 22.5-36.0 (BEAKER) (test code = 760) [id number] 00:00:54 Test Item Value Reference Range Interpretation Comments PARTIAL THROMBOPLASTIN TIME 35.7 seconds 22.5-36.0 (BEAKER) (test code = 760) [id number] 17:00:51 Test Item Value Reference Range Interpretation Comments PARTIAL THROMBOPLASTIN TIME 71.5 seconds 22.5-36.0 H (BEAKER) (test code = 760) [id number] 10:28:45 Test Item Value Reference Range Interpretation Comments PROTIME (BEAKER) (test code = 15.3 seconds 11.9-14.2 H 759) INR (BEAKER) (test code = 370) 1.24 <=5.90 PARTIAL THROMBOPLASTIN TIME 35.0 seconds 22.5-36.0 (BEAKER) (test code = 760) RECOMMENDED COUMADIN/WARFARIN INR THERAPY RANGESSTANDARD DOSE: 2.0 - 3.0 Includes: PROPHYLAXIS for venous thrombosis, systemic embolization; TREATMENT for venous thrombosis and/or pulmonary embolus.HIGH RISK: Target INR is 2.5-3.5 for patients with mechanical heart valves.RAD, CHEST, 1 VIEW, NON [id number] 07:32:00Reason for exam:->Pre-opShould this be performed at the bedside?->[facility] : 1965 Sex: MFINAL REPORT CLINICAL HISTORY: Pre-op TECHNIQUE: 1 view of the chest. COMPARISON: 10/28/2022 IMPRESSION: Mild bilateral lung opacities and blunting of both costophrenic angles is unchanged. The cardiomediastinal silhouette is magnified by technique with sternotomy wires. Signed: Roxanne Tang MDReport Verified Date/Time: 11/04/2022 07:32:35 [id number] 04:56:57 Test Item Value Reference Range Interpretation Comments PHOSPHORUS (BEAKER) (test code = 3.1 mg/dL 2.3-4.7 604) Manager [facility]osp[facility] ID - DBBASIC METABOLIC [id number] 04:56:56 Test Item Value Reference Range Interpretation Comments SODIUM (BEAKER) 135 meq/L 136-145 L (test code = 381) POTASSIUM 4.4 meq/L 3.5-5.1 (BEAKER) (test code = 379) CHLORIDE (BEAKER) 101 meq/L 98-107 (test code = 382) CO2 (BEAKER) 22 meq/L 22-29 (test code = 355) BLOOD UREA 18 mg/dL 7-21 NITROGEN (BEAKER) (test code = 354) CREATININE 0.98 mg/dL 0.57-1.25 (BEAKER) (test code = 358) GLUCOSE RANDOM 97 mg/dL 70-105 (BEAKER) (test code = 652) CALCIUM (BEAKER) 9.5 mg/dL 8.4-10.2 (test code = 697) EGFR (BEAKER) 91 Interpretatio n of eGFR (test code = mL/min/1.73 values Stage De scription 1092) sq m Result G1 Ary l or high >=90 G2 Mildly decreased 60-89 G3a Mildl y to moderately 45-5 9 G3b Moderately to s everely 30-44 G4 Severl y decreased 15-29 G5 Kidney failure <15Reported eGF R is based on the CKD-EPI 2020 equation that d oes not use a race coefficientEsti mated GFR is not as accur ate as Creatinine Rayne marsha in predicting glom erular filtration rate . Estimated GFR is not appl icable for dialysis patien ts Manager [facility] ID - [id number] 04:56:56 Test Item Value Reference Range Interpretation Comments MAGNESIUM (BEAKER) (test code = 2.3 mg/dL 1.6-2.6 627) Manager [facility]osp[facility] ID - [id number] 04:04:33 Test Item Value Reference Range Interpretation Comments PARTIAL THROMBOPLASTIN TIME 34.4 seconds 22.5-36.0 (BEAKER) (test code = 760) [id number] 04:04:11 Test Item Value Reference Range Interpretation Comments FIBRINOGEN LEVEL (BEAKER) (test 651 mg/dl 225-434 H code = 658) PROTHROMBIN [id number] 04:03:54 Test Item Value Reference Range Interpretation Comments PROTIME (BEAKER) (test code = 15.1 seconds 11.9-14.2 H 759) INR (BEAKER) (test code = 370) 1.21 <=5.90 RECOMMENDED COUMADIN/WARFARIN INR THERAPY RANGESSTANDARD DOSE: 2.0 - 3.0 Includes: PROPHYLAXIS for venous thrombosis, systemic embolization; TREATMENT for venous thrombosis and/or pulmonary embolus.HIGH RISK: Target INR is 2.5-3.5 for patients with mechanical heart valves.CBC W/PLT COUNT & AUTO [id number] 03:58:22 Test Item Value Reference Range Interpretation Comments WHITE BLOOD CELL COUNT (BEAKER) 17.5 K/ L 3.5-10.5 H (test code = 775) RED BLOOD CELL COUNT (BEAKER) 4.07 M/ L 4.63-6.08 L (test code = 761) HEMOGLOBIN (BEAKER) (test code = 12.1 GM/DL 13.7-17.5 L 410) HEMATOCRIT (BEAKER) (test code = 36.0 % 40.1-51.0 L 411) MEAN CORPUSCULAR VOLUME (BEAKER) 89 fL 79-92 (test code = 753) MEAN CORPUSCULAR HEMOGLOBIN 29.7 pg 25.7-32.2 (BEAKER) (test code = 751) MEAN CORPUSCULAR HEMOGLOBIN CONC 33.6 GM/DL 32.3-36.5 (BEAKER) (test code = 752) RED CELL DISTRIBUTION WIDTH 13.4 % 11.6-14.4 (BEAKER) (test code = 412) PLATELET COUNT (BEAKER) (test 600 K/CU MM 150-450 H code = 756) MEAN PLATELET VOLUME (BEAKER) 9.4 fL 9.4-12.4 (test code = 754) NUCLEATED RED BLOOD CELLS 0 /100 WBC 0-0 (BEAKER) (test code = 413) NEUTROPHILS RELATIVE PERCENT 83 % (BEAKER) (test code = 429) LYMPHOCYTES RELATIVE PERCENT 9 % (BEAKER) (test code = 430) MONOCYTES RELATIVE PERCENT 6 % (BEAKER) (test code = 431) EOSINOPHILS RELATIVE PERCENT 1 % (BEAKER) (test code = 432) BASOPHILS RELATIVE PERCENT 1 % (BEAKER) (test code = 437) NEUTROPHILS ABSOLUTE COUNT 14.52 K/ L 1.78-5.38 H (BEAKER) (test code = 670) LYMPHOCYTES ABSOLUTE COUNT 1.53 K/ L 1.32-3.57 (BEAKER) (test code = 414) MONOCYTES ABSOLUTE COUNT (BEAKER) 1.07 K/ L 0.30-0.82 H (test code = 415) EOSINOPHILS ABSOLUTE COUNT 0.18 K/ L 0.04-0.54 (BEAKER) (test code = 416) BASOPHILS ABSOLUTE COUNT (BEAKER) 0.10 K/ L 0.01-0.08 H (test code = 417) IMMATURE GRANULOCYTES-RELATIVE 0.50 % 0.00-1.00 PERCENT (BEAKER) (test code = 2801) TISSUE [id number] 11:45:27Surgical Pathology Report Case: [id number] Authorizing Provider: Samuel Downey MD Collected: 10/22/2022 10:17 AM Ordering Location: [facility] Received: 10/25/2022 07:53 AM PERIOPERATIVE SERVICES Pathologist: Lorena Bridges MD Specimen: Aorta, ascending aorta RULE OUT AORTITIS A. Aorta, ascending, replacement: - Bicuspid valve-associated aortopathy - Histopathologic features consistent with aortic aneurysm - No histopathologic evidence of inflammatory aortopathy or aortic atherosclerotic d isease - See comment Signing Pathologist Direct Phone Line: [phone] signed by Lorena Bridges MD on 11/01/2022 at 11:45 AMSections from the ascending aorta show aortic medial intralamellar mucoid extracellular matrix accumulation and focal fragmentation of aortic medial elastic fibers on elastin stains, indicative of mild aortic medial degeneration. In the context of the patient's age and known bicuspid aortic valve, these histopathologic findings are compatible with bicuspid valve- associated aortopathy. Fibrotic thickening, prominent nerve bundles, thick- walled vasa vasorum,mild chronic inflammation, focal interstitial edema and adhesions are noted in the aortic adventitia, consistent with aortic aneurysm- related reactive changes in the context of the dilated aorta impacting adjacent tissue structures. No inflammatory infiltrate is seen in the aortic media, and there is no histopathologic evidence of severe cystic-type aortic medial degeneration to suggest aortic medialinvolvement by an inflammatory condition. [id number] x2 Aneurysm of ascending aorta without rupture,bicuspid aortic valve, severe aortic regurgitationA. AortaReceived in formalin labeled with the patie nt's name, accession number and "ascending aorta" is a 10.0 x 2.0 x 0.3 cm portion of sen aortic tissue. The tunica intima is sen, smooth and devoid of plaque. The tunica adventitia is sen-yellow, focally hemorrhagic and shaggy. Sectioning reveals a sen, fibrous cut surface that is devoid of calcifications. [employer] sections are submitted in A1-A2.NIKOLAS Red HT (ASCP)Microscopic examination is performed and the salient findings are incorporated into the final diagnosis and comment sections. The interpretation of this case included the use of immunohistochemistry or special stains.Blocks A1 and A2: VVG elastin stains. Control Slides Examined: In-house known positive controls were evaluated along with the test tissue. These control slides run alongside of the patients sample show appropriate staining. Internal positive and negative controls when available are evaluated Immunohistochemistry technical testing was performed at [facility], Pathology Laboratory where it was developed and its performance characteristics were determined. It has not been cleared or approved by the U.S. Food and Drug Administration. The FDA has determined that such clearance or approval is not necessary. The test is used for clinical purposes. It should not be regarded as investigational or for research. This laboratory is certified under the Clinical Laboratory Improvement Amendments of 1988 (CLIA-88) as qualified to perform high complexity clinical laboratory testing.[facility], Department of Pathology, [address] [place] [id number], [facility], [address] [place] [id number], [facility], [facility] of [facility], [address] [place] [address], [id number] 06:25:36 Test Item Value Reference Range Interpretation Comments MAGNESIUM (BEAKER) 2.2 mg/dL 1.6-2.6 Specimen slightly (test code = 627) hemolyzed [facility] ID - [id number] 06:25:36 Test Item Value Reference Range Interpretation Comments PHOSPHORUS (BEAKER) 3.3 mg/dL 2.3-4.7 Specimen slightly (test code = 604) hemolyzed [facility] ID - MARCOBASIC METABOLIC [id number] 06:25:36 Test Item Value Reference Range Interpretation Comments SODIUM (BEAKER) 137 meq/L 136-145 (test code = 381) POTASSIUM 4.2 meq/L 3.5-5.1 Specimen slight ly (BEAKER) (test hemolyzed code = 379) CHLORIDE (BEAKER) 103 meq/L 98-107 (test code = 382) CO2 (BEAKER) 21 meq/L 22-29 L (test code = 355) BLOOD UREA 16 mg/dL 7-21 NITROGEN (BEAKER) (test code = 354) CREATININE 0.94 mg/dL 0.57-1.25 Specimen slight ly (BEAKER) (test hemolyzed code = 358) GLUCOSE RANDOM 89 mg/dL 70-105 (BEAKER) (test code = 652) CALCIUM (BEAKER) 9.3 mg/dL 8.4-10.2 (test code = 697) EGFR (BEAKER) 96 Interpretatio n of eGFR (test code = mL/min/1.73 values Stage De scription 1092) sq m Result G1 Ary l or high >=90 G2 Mildly decreased 60-89 G3a Mildl y to moderately 45-5 9 G3b Moderately to s everely 30-44 G4 Sever ly decreased 15-29 G5 Kidney failure <15Repo rted eGFR is based on the CKD-EPI 2020 equation t hat does not use a race coefficientEsti mated GFR is not as accur ate as Creatinine Rayne larson in predicting glom erular filtration rate . Estimated GFR is not appl icable for dialysis patien ts [facility] ID - MARCOCBC W/PLT COUNT & AUTO [id number] 05:52:17 Test Item Value Reference Range Interpretation Comments WHITE BLOOD CELL COUNT 13.5 K/ L 3.5-10.5 H (BEAKER) (test code = 775) RED BLOOD CELL COUNT 4.00 M/ L 4.63-6.08 L (BEAKER) (test code = 761) HEMOGLOBIN (BEAKER) 12.0 GM/DL 13.7-17.5 L (test code = 410) HEMATOCRIT (BEAKER) 36.2 % 40.1-51.0 L (test code = 411) MEAN CORPUSCULAR 91 fL 79-92 Discordant results VOLUME (BEAKER) (test compar ed to previous code = 753) results; clinic al correlation req uired MEAN CORPUSCULAR 30.0 pg 25.7-32.2 HEMOGLOBIN (BEAKER) (test code = 751) MEAN CORPUSCULAR 33.1 GM/DL 32.3-36.5 HEMOGLOBIN CONC (BEAKER) (test code = 752) RED CELL DISTRIBUTION 13.9 % 11.6-14.4 WIDTH (BEAKER) (test code = 412) PLATELET COUNT 390 K/CU MM 150-450 (BEAKER) (test code = 756) MEAN PLATELET VOLUME 10.1 fL 9.4-12.4 (BEAKER) (test code = 754) NUCLEATED RED BLOOD 0 /100 WBC 0-0 CELLS (BEAKER) (test code = 413) NEUTROPHILS RELATIVE 76 % PERCENT (BEAKER) (test code = 429) LYMPHOCYTES RELATIVE 15 % PERCENT (BEAKER) (test code = 430) MONOCYTES RELATIVE 6 % PERCENT (BEAKER) (test code = 431) EOSINOPHILS RELATIVE 2 % PERCENT (BEAKER) (test code = 432) BASOPHILS RELATIVE 0 % PERCENT (BEAKER) (test code = 437) NEUTROPHILS ABSOLUTE 10.21 K/ L 1.78-5.38 H COUNT (BEAKER) (test code = 670) LYMPHOCYTES ABSOLUTE 2.01 K/ L 1.32-3.57 COUNT (BEAKER) (test code = 414) MONOCYTES ABSOLUTE 0.87 K/ L 0.30-0.82 H COUNT (BEAKER) (test code = 415) EOSINOPHILS ABSOLUTE 0.29 K/ L 0.04-0.54 COUNT (BEAKER) (test code = 416) BASOPHILS ABSOLUTE 0.06 K/ L 0.01-0.08 COUNT (BEAKER) (test code = 417) IMMATURE 0.60 % 0.00-1.00 GRANULOCYTES-RELATIVE PERCENT (BEAKER) (test code = 2801) URINALYSIS W/ [id number] 12:39:00 Test Item Value Reference Range Interpretation Comments COLOR (BEAKER) (test code Light Yellow = 470) CLARITY (BEAKER) (test Clear code = 469) SPECIFIC GRAVITY UA 1.005 1.001-1.035 (BEAKER) (test code = 468) PH UA (BEAKER) (test code 6.5 5.0-8.0 = 467) PROTEIN UA (BEAKER) (test Negative Negative code = 464) GLUCOSE UA (BEAKER) (test Negative Negative code = 365) KETONES UA (BEAKER) (test Negative Negative code = 371) BILIRUBIN UA (BEAKER) Negative Negative (test code = 462) BLOOD UA (BEAKER) (test Small Negative A code = 461) NITRITE UA (BEAKER) (test Negative Negative code = 465) LEUKOCYTE ESTERASE UA Negative Negative (BEAKER) (test code = 466) UROBILINOGEN UA (BEAKER) 3 0.2-1.0 H (test code = 463) RBC UA (BEAKER) (test code < /HPF = 519) WBC UA (BEAKER) (test code 1 /HPF = 520) MUCUS (BEAKER) (test code Rare = 1574) SQUAMOUS EPITHELIAL < /HPF (BEAKER) (test code = 516) AMORPHOUS CRYSTALS Rare (BEAKER) (test code = 1584) SOURCE(BEAKER) (test code Urine, Clean Catch = 2795) [facility] ID - [auto][facility] ID - [id number] 05:54:52 Test Item Value Reference Range Interpretation Comments MAGNESIUM (BEAKER) (test code = 2.3 mg/dL 1.6-2.6 627) [facility] ID - [id number] 05:54:52 Test Item Value Reference Range Interpretation Comments PHOSPHORUS (BEAKER) (test code = 3.1 mg/dL 2.3-4.7 604) [facility] ID - MMBASIC METABOLIC [id number] 05:54:51 Test Item Value Reference Range Interpretation Comments SODIUM (BEAKER) 137 meq/L 136-145 (test code = 381) POTASSIUM 4.0 meq/L 3.5-5.1 (BEAKER) (test code = 379) CHLORIDE (BEAKER) 103 meq/L 98-107 (test code = 382) CO2 (BEAKER) 23 meq/L 22-29 (test code = 355) BLOOD UREA 16 mg/dL 7-21 NITROGEN (BEAKER) (test code = 354) CREATININE 0.85 mg/dL 0.57-1.25 (BEAKER) (test code = 358) GLUCOSE RANDOM 94 mg/dL 70-105 (BEAKER) (test code = 652) CALCIUM (BEAKER) 9.5 mg/dL 8.4-10.2 (test code = 697) EGFR (BEAKER) 102 Interpretatio n of eGFR (test code = mL/min/1.73 values Stage D escription 1092) sq m Result G1 Ary l or high >=90 G2 Mildly decreased 60-89 G3a Mildl y to moderately 45-5 9 G3b Moderately to s everely 30-44 G4 Severl y decreased 15-29 G5 Kidney failure <15Reported eGF R is based on the CKD-EPI 2020 equation that d oes not use a race coefficientEsti mated GFR is not as accur ate as Creatinine Rayne larson in predicting glom erular filtration rate . Estimated GFR is not appl icable for dialysis patien ts [facility] ID - MMCBC W/PLT COUNT & AUTO [id number] 05:44:16 Test Item Value Reference Range Interpretation Comments WHITE BLOOD CELL COUNT (BEAKER) 13.0 K/ L 3.5-10.5 H (test code = 775) RED BLOOD CELL COUNT (BEAKER) 4.11 M/ L 4.63-6.08 L (test code = 761) HEMOGLOBIN (BEAKER) (test code = 12.1 GM/DL 13.7-17.5 L 410) HEMATOCRIT (BEAKER) (test code = 35.7 % 40.1-51.0 L 411) MEAN CORPUSCULAR VOLUME (BEAKER) 87 fL 79-92 (test code = 753) MEAN CORPUSCULAR HEMOGLOBIN 29.4 pg 25.7-32.2 (BEAKER) (test code = 751) MEAN CORPUSCULAR HEMOGLOBIN CONC 33.9 GM/DL 32.3-36.5 (BEAKER) (test code = 752) RED CELL DISTRIBUTION WIDTH 13.9 % 11.6-14.4 (BEAKER) (test code = 412) PLATELET COUNT (BEAKER) (test 357 K/CU MM 150-450 code = 756) MEAN PLATELET VOLUME (BEAKER) 9.6 fL 9.4-12.4 (test code = 754) NUCLEATED RED BLOOD CELLS 0 /100 WBC 0-0 (BEAKER) (test code = 413) NEUTROPHILS RELATIVE PERCENT 75 % (BEAKER) (test code = 429) LYMPHOCYTES RELATIVE PERCENT 14 % (BEAKER) (test code = 430) MONOCYTES RELATIVE PERCENT 7 % (BEAKER) (test code = 431) EOSINOPHILS RELATIVE PERCENT 2 % (BEAKER) (test code = 432) BASOPHILS RELATIVE PERCENT 0 % (BEAKER) (test code = 437) NEUTROPHILS ABSOLUTE COUNT 9.77 K/ L 1.78-5.38 H (BEAKER) (test code = 670) LYMPHOCYTES ABSOLUTE COUNT 1.87 K/ L 1.32-3.57 (BEAKER) (test code = 414) MONOCYTES ABSOLUTE COUNT (BEAKER) 0.93 K/ L 0.30-0.82 H (test code = 415) EOSINOPHILS ABSOLUTE COUNT 0.26 K/ L 0.04-0.54 (BEAKER) (test code = 416) BASOPHILS ABSOLUTE COUNT (BEAKER) 0.05 K/ L 0.01-0.08 (test code = 417) IMMATURE GRANULOCYTES-RELATIVE 0.70 % 0.00-1.00 PERCENT (BEAKER) (test code = 2801) RAD, CHEST, 2 [id number] 16:45:00Reason for exam:->[facility] 1965 Sex: MFINAL REPORT Chest, 2 views, 10/28/2022 1:51 PM. History: Fever. Comparison: 10/24/2022. Discussion: The cardiac silhouette is mildly enlarged but the pulmonary vasculature is within normal limits. Linear opacities are present in both lung bases with mild widening of the pleural marginsbilaterally.. Median sternotomy wires are present. There are no acute osseous abnormalities. The soft tissues are unremarkable. IMPRESSION: Cardiomegaly, bibasilar atelectasis, and small bilateral pleural effusions. Signed: William Sifuentes MDRort Verified Date/Time: 10/28/2022 16:45:38 Electronicallysigned by: WILLIAM SIFUENTES M.D. on 10/28/2022 04:45 [id number] 06:57:12 Test Item Value Reference Range Interpretation Comments MAGNESIUM (BEAKER) (test code = 2.2 mg/dL 1.6-2.6 627) [facility] ID - [id number] 06:57:12 Test Item Value Reference Range Interpretation Comments PHOSPHORUS (BEAKER) (test code = 2.7 mg/dL 2.3-4.7 604) [facility] ID - MMBASIC METABOLIC [id number] 06:57:11 Test Item Value Reference Range Interpretation Comments SODIUM (BEAKER) 136 meq/L 136-145 (test code = 381) POTASSIUM 4.2 meq/L 3.5-5.1 (BEAKER) (test code = 379) CHLORIDE (BEAKER) 101 meq/L 98-107 (test code = 382) CO2 (BEAKER) 24 meq/L 22-29 (test code = 355) BLOOD UREA 15 mg/dL 7-21 NITROGEN (BEAKER) (test code = 354) CREATININE 0.85 mg/dL 0.57-1.25 (BEAKER) (test code = 358) GLUCOSE RANDOM 92 mg/dL 70-105 (BEAKER) (test code = 652) CALCIUM (BEAKER) 9.4 mg/dL 8.4-10.2 (test code = 697) EGFR (BEAKER) 102 Interpretatio n of eGFR (test code = mL/min/1.73 values Stage De scription 1092) sq m Result G1 Ary l or high >=90 G2 Mildly decreased 60-89 G3a Mildl y to moderately 45-5 9 G3b Moderately to s everely 30-44 G4 Severl y decreased 15-29 G5 Kidney failure <15Reported eGF R is based on the CKD-EPI 2020 equation that d oes not use a race coefficientEsti mated GFR is not as accur ate as Creatinine Rayne larson in predicting glom erular filtration rate . Estimated GFR is not appl icable for dialysis patien ts [facility] ID - MMCBC W/PLT COUNT & AUTO [id number] 06:15:49 Test Item Value Reference Range Interpretation Comments WHITE BLOOD CELL COUNT (BEAKER) 11.2 K/ L 3.5-10.5 H (test code = 775) RED BLOOD CELL COUNT (BEAKER) 3.75 M/ L 4.63-6.08 L (test code = 761) HEMOGLOBIN (BEAKER) (test code = 11.4 GM/DL 13.7-17.5 L 410) HEMATOCRIT (BEAKER) (test code = 33.9 % 40.1-51.0 L 411) MEAN CORPUSCULAR VOLUME (BEAKER) 90 fL 79-92 (test code = 753) MEAN CORPUSCULAR HEMOGLOBIN 30.4 pg 25.7-32.2 (BEAKER) (test code = 751) MEAN CORPUSCULAR HEMOGLOBIN CONC 33.6 GM/DL 32.3-36.5 (BEAKER) (test code = 752) RED CELL DISTRIBUTION WIDTH 13.9 % 11.6-14.4 (BEAKER) (test code = 412) PLATELET COUNT (BEAKER) (test 283 K/CU MM 150-450 code = 756) MEAN PLATELET VOLUME (BEAKER) 10.2 fL 9.4-12.4 (test code = 754) NUCLEATED RED BLOOD CELLS 0 /100 WBC 0-0 (BEAKER) (test code = 413) NEUTROPHILS RELATIVE PERCENT 75 % (BEAKER) (test code = 429) LYMPHOCYTES RELATIVE PERCENT 14 % (BEAKER) (test code = 430) MONOCYTES RELATIVE PERCENT 8 % (BEAKER) (test code = 431) EOSINOPHILS RELATIVE PERCENT 2 % (BEAKER) (test code = 432) BASOPHILS RELATIVE PERCENT 1 % (BEAKER) (test code = 437) NEUTROPHILS ABSOLUTE COUNT 8.42 K/ L 1.78-5.38 H (BEAKER) (test code = 670) LYMPHOCYTES ABSOLUTE COUNT 1.58 K/ L 1.32-3.57 (BEAKER) (test code = 414) MONOCYTES ABSOLUTE COUNT (BEAKER) 0.91 K/ L 0.30-0.82 H (test code = 415) EOSINOPHILS ABSOLUTE COUNT 0.21 K/ L 0.04-0.54 (BEAKER) (test code = 416) BASOPHILS ABSOLUTE COUNT (BEAKER) 0.07 K/ L 0.01-0.08 (test code = 417) IMMATURE GRANULOCYTES-RELATIVE 0.40 % 0.00-1.00 PERCENT (BEAKER) (test code = 2801) [id number] 06:27:33 Test Item Value Reference Range Interpretation Comments MAGNESIUM (BEAKER) (test code = 2.2 mg/dL 1.6-2.6 627) [facility] ID - [id number] 06:27:33 Test Item Value Reference Range Interpretation Comments PHOSPHORUS (BEAKER) (test code = 2.0 mg/dL 2.3-4.7 L 604) [facility] ID - BSBASIC METABOLIC [id number] 06:27:32 Test Item Value Reference Range Interpretation Comments SODIUM (BEAKER) 133 meq/L 136-145 L (test code = 381) POTASSIUM 3.8 meq/L 3.5-5.1 (BEAKER) (test code = 379) CHLORIDE (BEAKER) 100 meq/L 98-107 (test code = 382) CO2 (BEAKER) 23 meq/L 22-29 (test code = 355) BLOOD UREA 16 mg/dL 7-21 NITROGEN (BEAKER) (test code = 354) CREATININE 0.80 mg/dL 0.57-1.25 (BEAKER) (test code = 358) GLUCOSE RANDOM 87 mg/dL 70-105 (BEAKER) (test code = 652) CALCIUM (BEAKER) 8.8 mg/dL 8.4-10.2 (test code = 697) EGFR (BEAKER) 104 Interpretatio n of eGFR (test code = mL/min/1.73 values Stage De scription 1092) sq m Result G1 Ary l or high >=90 G2 Mildly decreased 60-89 G3a Mildl y to moderately 45-5 9 G3b Moderately to s everely 30-44 G4 Severl y decreased 15-29 G5 Kidney failure <15Reported eGF R is based on the CKD-EPI 2021 equation that d oes not use a race coefficientEsti mated GFR is not as accur ate as Creatinine Rayne larson in predicting glom erular filtration rate . Estimated GFR is not appl icable for dialysis patien ts [facility] ID - BSCBC W/PLT COUNT & AUTO [id number] 05:12:26 Test Item Value Reference Range Interpretation Comments WHITE BLOOD CELL COUNT (BEAKER) 9.2 K/ L 3.5-10.5 (test code = 775) RED BLOOD CELL COUNT (BEAKER) 3.87 M/ L 4.63-6.08 L (test code = 761) HEMOGLOBIN (BEAKER) (test code = 11.5 GM/DL 13.7-17.5 L 410) HEMATOCRIT (BEAKER) (test code = 33.6 % 40.1-51.0 L 411) MEAN CORPUSCULAR VOLUME (BEAKER) 87 fL 79-92 (test code = 753) MEAN CORPUSCULAR HEMOGLOBIN 29.7 pg 25.7-32.2 (BEAKER) (test code = 751) MEAN CORPUSCULAR HEMOGLOBIN CONC 34.2 GM/DL 32.3-36.5 (BEAKER) (test code = 752) RED CELL DISTRIBUTION WIDTH 13.8 % 11.6-14.4 (BEAKER) (test code = 412) PLATELET COUNT (BEAKER) (test 224 K/CU MM 150-450 code = 756) MEAN PLATELET VOLUME (BEAKER) 9.8 fL 9.4-12.4 (test code = 754) NUCLEATED RED BLOOD CELLS 0 /100 WBC 0-0 (BEAKER) (test code = 413) NEUTROPHILS RELATIVE PERCENT 77 % (BEAKER) (test code = 429) LYMPHOCYTES RELATIVE PERCENT 12 % (BEAKER) (test code = 430) MONOCYTES RELATIVE PERCENT 9 % (BEAKER) (test code = 431) EOSINOPHILS RELATIVE PERCENT 2 % (BEAKER) (test code = 432) BASOPHILS RELATIVE PERCENT 0 % (BEAKER) (test code = 437) NEUTROPHILS ABSOLUTE COUNT 7.03 K/ L 1.78-5.38 H (BEAKER) (test code = 670) LYMPHOCYTES ABSOLUTE COUNT 1.13 K/ L 1.32-3.57 L (BEAKER) (test code = 414) MONOCYTES ABSOLUTE COUNT (BEAKER) 0.79 K/ L 0.30-0.82 (test code = 415) EOSINOPHILS ABSOLUTE COUNT 0.17 K/ L 0.04-0.54 (BEAKER) (test code = 416) BASOPHILS ABSOLUTE COUNT (BEAKER) 0.04 K/ L 0.01-0.08 (test code = 417) IMMATURE GRANULOCYTES-RELATIVE 0.40 % 0.00-1.00 PERCENT (BEAKER) (test code = 2801) URINALYSIS W/ REFLEX URINE [id number] 18:14:27 Test Item Value Reference Range Interpretation Comments COLOR (BEAKER) (test code = 470) Yellow CLARITY (BEAKER) (test code = 469) Clear SPECIFIC GRAVITY UA (BEAKER) (test 1.017 1.001-1.035 code = 468) PH UA (BEAKER) (test code = 467) 7.5 5.0-8.0 PROTEIN UA (BEAKER) (test code = 30 mg/dL Negative A 464) GLUCOSE UA (BEAKER) (test code = Negative Negative 365) KETONES UA (BEAKER) (test code = 40 mg/dL Negative A 371) BILIRUBIN UA (BEAKER) (test code = Negative Negative 462) BLOOD UA (BEAKER) (test code = 461) Moderate Negative A NITRITE UA (BEAKER) (test code = Negative Negative 465) LEUKOCYTE ESTERASE UA (BEAKER) (test Negative Negative code = 466) UROBILINOGEN UA (BEAKER) (test code 12 0.2-1.0 H = 463) RBC UA (BEAKER) (test code = 519) 8 /HPF WBC UA (BEAKER) (test code = 520) 3 /HPF SQUAMOUS EPITHELIAL (BEAKER) (test 1 /HPF code = 516) SOURCE(BEAKER) (test code = 2795) [facility] ID - [id number] 06:06:06 Test Item Value Reference Range Interpretation Comments MAGNESIUM (BEAKER) (test code = 2.2 mg/dL 1.6-2.6 627) [facility] ID - [id number] 06:06:06 Test Item Value Reference Range Interpretation Comments PHOSPHORUS (BEAKER) (test code = 2.2 mg/dL 2.3-4.7 L 604) [facility] ID - ADMINBASIC METABOLIC [id number] 06:06:05 Test Item Value Reference Range Interpretation Comments SODIUM (BEAKER) 133 meq/L 136-145 L (test code = 381) POTASSIUM 3.3 meq/L 3.5-5.1 L (BEAKER) (test code = 379) CHLORIDE (BEAKER) 97 meq/L 98-107 L (test code = 382) CO2 (BEAKER) 27 meq/L 22-29 (test code = 355) BLOOD UREA 18 mg/dL 7-21 NITROGEN (BEAKER) (test code = 354) CREATININE 0.91 mg/dL 0.57-1.25 (BEAKER) (test code = 358) GLUCOSE RANDOM 96 mg/dL 70-105 (BEAKER) (test code = 652) CALCIUM (BEAKER) 9.0 mg/dL 8.4-10.2 (test code = 697) EGFR (BEAKER) 99 Interpretatio n of eGFR (test code = mL/min/1.73 values Stage De scription 1092) sq m Result G1 Ary l or high >=90 G2 Mildly decreased 60-89 G3a Mildl y to moderately 45-5 9 G3b Moderately to s everely 30-44 G4 Severl y decreased 15-29 G5 Kidney failure <15Reported eGF R is based on the CKD-EPI 2020 equation that d oes not use a race coefficientEsti mated GFR is not as accur ate as Creatinine Rayne marsha in predicting glom erular filtration rate . Estimated GFR is not appl icable for dialysis patien ts [facility] ID - ADMINCBC W/PLT COUNT & AUTO [id number] 05:35:30 Test Item Value Reference Range Interpretation Comments WHITE BLOOD CELL COUNT 10.4 K/ L 3.5-10.5 (BEAKER) (test code = 775) RED BLOOD CELL COUNT 3.59 M/ L 4.63-6.08 L (BEAKER) (test code = 761) HEMOGLOBIN (BEAKER) 11.0 GM/DL 13.7-17.5 L (test code = 410) HEMATOCRIT (BEAKER) 31.7 % 40.1-51.0 L (test code = 411) MEAN CORPUSCULAR 88 fL 79-92 Discordant results VOLUME (BEAKER) (test compar ed to previous code = 753) results; clinic al correlation req uired MEAN CORPUSCULAR 30.6 pg 25.7-32.2 HEMOGLOBIN (BEAKER) (test code = 751) MEAN CORPUSCULAR 34.7 GM/DL 32.3-36.5 HEMOGLOBIN CONC (BEAKER) (test code = 752) RED CELL DISTRIBUTION 14.0 % 11.6-14.4 WIDTH (BEAKER) (test code = 412) PLATELET COUNT 182 K/CU MM 150-450 Discordant re sults (BEAKER) (test code = compar ed to previous 756) results; clinic al correlation req uired MEAN PLATELET VOLUME 10.3 fL 9.4-12.4 (BEAKER) (test code = 754) NUCLEATED RED BLOOD 0 /100 WBC 0-0 CELLS (BEAKER) (test code = 413) NEUTROPHILS RELATIVE 83 % PERCENT (BEAKER) (test code = 429) LYMPHOCYTES RELATIVE 9 % PERCENT (BEAKER) (test code = 430) MONOCYTES RELATIVE 6 % PERCENT (BEAKER) (test code = 431) EOSINOPHILS RELATIVE 2 % PERCENT (BEAKER) (test code = 432) BASOPHILS RELATIVE 1 % PERCENT (BEAKER) (test code = 437) NEUTROPHILS ABSOLUTE 8.65 K/ L 1.78-5.38 H COUNT (BEAKER) (test code = 670) LYMPHOCYTES ABSOLUTE 0.89 K/ L 1.32-3.57 L COUNT (BEAKER) (test code = 414) MONOCYTES ABSOLUTE 0.62 K/ L 0.30-0.82 COUNT (BEAKER) (test code = 415) EOSINOPHILS ABSOLUTE 0.16 K/ L 0.04-0.54 COUNT (BEAKER) (test code = 416) BASOPHILS ABSOLUTE 0.05 K/ L 0.01-0.08 COUNT (BEAKER) (test code = 417) IMMATURE 0.40 % 0.00-1.00 GRANULOCYTES-RELATIVE PERCENT (BEAKER) (test code = 2801) [id number] 07:31:06 Test Item Value Reference Range Interpretation Comments MAGNESIUM (BEAKER) (test code = 2.2 mg/dL 1.6-2.6 627) [facility] - [id number] 07:31:06 Test Item Value Reference Range Interpretation Comments PHOSPHORUS (BEAKER) (test code = 2.2 mg/dL 2.3-4.7 L 604) [facility] ID - MMBASIC METABOLIC [id number] 07:31:05 Test Item Value Reference Range Interpretation Comments SODIUM (BEAKER) 137 meq/L 136-145 (test code = 381) POTASSIUM 3.6 meq/L 3.5-5.1 (BEAKER) (test code = 379) CHLORIDE (BEAKER) 100 meq/L 98-107 (test code = 382) CO2 (BEAKER) 28 meq/L 22-29 (test code = 355) BLOOD UREA 17 mg/dL 7-21 NITROGEN (BEAKER) (test code = 354) CREATININE 0.98 mg/dL 0.57-1.25 (BEAKER) (test code = 358) GLUCOSE RANDOM 80 mg/dL 70-105 (BEAKER) (test code = 652) CALCIUM (BEAKER) 8.8 mg/dL 8.4-10.2 (test code = 697) EGFR (BEAKER) 91 Interpretatio n of eGFR (test code = mL/min/1.73 values Stage De scription 1092) sq m Result G1 Ary l or high >=90 G2 Mildly decreased 60-89 G3a Mildl y to moderately 45-5 9 G3b Moderately to s everely 30-44 G4 Severl y decreased 15-29 G5 Kidney failure <15Reported eGF R is based on the CKD-EPI 2020 equation that d oes not use a race coefficientEsti mated GFR is not as accur ate as Creatinine Rayne marsha in predicting glom erular filtration rate . Estimated GFR is not appl icable for dialysis patien ts [facility] ID - MMOperator ID - MMCBC W/PLT COUNT & AUTO DIFFERENTIAL 2022-10-25 05:03:06 Test Item Value Reference Range Interpretation Comments WHITE BLOOD CELL COUNT (BEAKER) 11.3 K/ L 3.5-10.5 H (test code = 775) RED BLOOD CELL COUNT (BEAKER) 3.31 M/ L 4.63-6.08 L (test code = 761) HEMOGLOBIN (BEAKER) (test code = 10.0 GM/DL 13.7-17.5 L 410) HEMATOCRIT (BEAKER) (test code = 30.3 % 40.1-51.0 L 411) MEAN CORPUSCULAR VOLUME (BEAKER) 92 fL 79-92 (test code = 753) MEAN CORPUSCULAR HEMOGLOBIN 30.2 pg 25.7-32.2 (BEAKER) (test code = 751) MEAN CORPUSCULAR HEMOGLOBIN CONC 33.0 GM/DL 32.3-36.5 (BEAKER) (test code = 752) RED CELL DISTRIBUTION WIDTH 14.1 % 11.6-14.4 (BEAKER) (test code = 412) PLATELET COUNT (BEAKER) (test 121 K/CU MM 150-450 L code = 756) MEAN PLATELET VOLUME (BEAKER) 10.7 fL 9.4-12.4 (test code = 754) NUCLEATED RED BLOOD CELLS 0 /100 WBC 0-0 (BEAKER) (test code = 413) NEUTROPHILS RELATIVE PERCENT 78 % (BEAKER) (test code = 429) LYMPHOCYTES RELATIVE PERCENT 14 % (BEAKER) (test code = 430) MONOCYTES RELATIVE PERCENT 5 % (BEAKER) (test code = 431) EOSINOPHILS RELATIVE PERCENT 2 % (BEAKER) (test code = 432) BASOPHILS RELATIVE PERCENT 0 % (BEAKER) (test code = 437) NEUTROPHILS ABSOLUTE COUNT 8.85 K/ L 1.78-5.38 H (BEAKER) (test code = 670) LYMPHOCYTES ABSOLUTE COUNT 1.63 K/ L 1.32-3.57 (BEAKER) (test code = 414) MONOCYTES ABSOLUTE COUNT (BEAKER) 0.57 K/ L 0.30-0.82 (test code = 415) EOSINOPHILS ABSOLUTE COUNT 0.17 K/ L 0.04-0.54 (BEAKER) (test code = 416) BASOPHILS ABSOLUTE COUNT (BEAKER) 0.04 K/ L 0.01-0.08 (test code = 417) IMMATURE GRANULOCYTES-RELATIVE 0.50 % 0.00-1.00 PERCENT (BEAKER) (test code = 2801) RAD, CHEST, 1 VIEW, NON [id number] 08:18:00Reason for exam:->Post OpShould this be performed at the bedside?->Yes [facility] : 1965 Sex: MFINAL REPORT Exam: RAD, CHEST, 1 VIEW, NON DEPTDate: 10/24/2022 8:18 AM Indication:Post OpComparison: Chest radiograph from yesterday. IMPRESSION: Lines/Tubes:Comstock-Nader catheter has been removed. The sheath remains in place. Additional support devices/postoperative changes are unchanged. Lungs and Pleura :Unchanged bilateral interstitial opacities. Small bilateral pleural effusions. No pneumothorax. Heart/Mediastinum:Unchanged. Bones/Soft Tissues: No acute osseous abnormality. Upper abdomen: Unremarkable. Signed: Ana Arrington MDRep[facility] Verified Date/Time: 10/24/2022 08:18:57 CALCIUM, [id number] 02:46:49 Test Item Value Reference Range Interpretation Comments CALCIUM IONIZED (BEAKER) (test 1.15 mmol/L 1.12-1.27 code = 698) PH, BLOOD (BEAKER) (test code = 7.41 1810) OXYGEN SATURATION, [id number] 02:46:34 Test Item Value Reference Range Interpretation Comments O2 SATURATION (MEASURED) (BEAKER) 64.4 % (test code = 1455) [id number] 02:45:29 Test Item Value Reference Range Interpretation Comments MAGNESIUM (BEAKER) (test code = 2.2 mg/dL 1.6-2.6 627) Manager Hospice ID - [id number] 02:45:29 Test Item Value Reference Range Interpretation Comments PHOSPHORUS (BEAKER) (test code = 2.7 mg/dL 2.3-4.7 604) Manager Hospice ID - MARCOCOMPREHENSIVE METABOLIC [id number] 02:45:28 Test Item Value Reference Range Interpretation Comments TOTAL PROTEIN 5.9 gm/dL 6.0-8.3 L (BEAKER) (test code = 770) ALBUMIN (BEAKER) 3.6 g/dL 3.5-5.0 (test code = 1145) ALKALINE 45 U/L 40-150 PHOSPHATASE (BEAKER) (test code = 346) BILIRUBIN TOTAL 0.9 mg/dL 0.2-1.2 (BEAKER) (test code = 377) SODIUM (BEAKER) 139 meq/L 136-145 (test code = 381) POTASSIUM (BEAKER) 3.6 meq/L 3.5-5.1 (test code = 379) CHLORIDE (BEAKER) 103 meq/L 98-107 (test code = 382) CO2 (BEAKER) (test 27 meq/L 22-29 code = 355) BLOOD UREA 17 mg/dL 7-21 NITROGEN (BEAKER) (test code = 354) CREATININE 1.07 mg/dL 0.57-1.25 (BEAKER) (test code = 358) GLUCOSE RANDOM 106 mg/dL 70-105 H (BEAKER) (test code = 652) CALCIUM (BEAKER) 8.8 mg/dL 8.4-10.2 (test code = 697) AST (SGOT) 30 U/L 5-34 (BEAKER) (test code = 353) ALT (SGPT) 16 U/L 6-55 (BEAKER) (test code = 347) EGFR (BEAKER) 82 Interpretatio n of eGFR (test code = 1092) mL/min/1.[address] age Description sq m Result G1 Ary l or high >=90 G2 Mildly decreased 60-89 G3a Mildl y to moderately 45-5 9 G3b Moderately to s everely 30-44 G4 Severl y decreased 15-29 G5 Kidney failure <15Reported eGF R is based on the CKD-EPI 2020 equation that d oes not use a race coefficientEsti mated GFR is not as accur ate as Creatinine Rayne marsha in predicting glom erular filtration rate . Estimated GFR is not appl icable for dialysis patien ts Manager Hospice ID - MARCOLACTIC ACID, [id number] 02:40:27 Test Item Value Reference Range Interpretation Comments LACTATE BLOOD ARTERIAL (2) 0.7 mmol/L 0.5-2.0 (BEAKER) (test code = 2874) Manager Hospice ID - [id number] 02:39:21 Test Item Value Reference Range Interpretation Comments PROTIME (BEAKER) (test code = 17.0 seconds 11.9-14.2 H 759) INR (BEAKER) (test code = 370) 1.48 <=5.90 PARTIAL THROMBOPLASTIN TIME 38.1 seconds 22.5-36.0 H (BEAKER) (test code = 760) RECOMMENDED COUMADIN/WARFARIN INR THERAPY RANGESSTANDARD DOSE: 2.0 - 3.0 Includes: PROPHYLAXIS for venous thrombosis, systemic embolization; TREATMENT for venous thrombosis and/or pulmonary embolus.HIGH RISK: Target INR is 2.5-3.5 for patients with mechanical heart valves.[id number] 02:39:00 Test Item Value Reference Range Interpretation Comments FIBRINOGEN LEVEL (BEAKER) (test 567 mg/dl 225-434 H code = 658) CBC W/PLT COUNT & AUTO [id number] 02:28:04 Test Item Value Reference Range Interpretation Comments WHITE BLOOD CELL COUNT (BEAKER) 13.1 K/ L 3.5-10.5 H (test code = 775) RED BLOOD CELL COUNT (BEAKER) 3.38 M/ L 4.63-6.08 L (test code = 761) HEMOGLOBIN (BEAKER) (test code = 10.2 GM/DL 13.7-17.5 L 410) HEMATOCRIT (BEAKER) (test code = 30.5 % 40.1-51.0 L 411) MEAN CORPUSCULAR VOLUME (BEAKER) 90 fL 79-92 (test code = 753) MEAN CORPUSCULAR HEMOGLOBIN 30.2 pg 25.7-32.2 (BEAKER) (test code = 751) MEAN CORPUSCULAR HEMOGLOBIN CONC 33.4 GM/DL 32.3-36.5 (BEAKER) (test code = 752) RED CELL DISTRIBUTION WIDTH 14.3 % 11.6-14.4 (BEAKER) (test code = 412) PLATELET COUNT (BEAKER) (test 112 K/CU MM 150-450 L code = 756) MEAN PLATELET VOLUME (BEAKER) 10.7 fL 9.4-12.4 (test code = 754) NUCLEATED RED BLOOD CELLS 0 /100 WBC 0-0 (BEAKER) (test code = 413) NEUTROPHILS RELATIVE PERCENT 86 % (BEAKER) (test code = 429) LYMPHOCYTES RELATIVE PERCENT 7 % (BEAKER) (test code = 430) MONOCYTES RELATIVE PERCENT 6 % (BEAKER) (test code = 431) EOSINOPHILS RELATIVE PERCENT 0 % (BEAKER) (test code = 432) BASOPHILS RELATIVE PERCENT 0 % (BEAKER) (test code = 437) NEUTROPHILS ABSOLUTE COUNT 11.29 K/ L 1.78-5.38 H (BEAKER) (test code = 670) LYMPHOCYTES ABSOLUTE COUNT 0.91 K/ L 1.32-3.57 L (BEAKER) (test code = 414) MONOCYTES ABSOLUTE COUNT (BEAKER) 0.77 K/ L 0.30-0.82 (test code = 415) EOSINOPHILS ABSOLUTE COUNT 0.05 K/ L 0.04-0.54 (BEAKER) (test code = 416) BASOPHILS ABSOLUTE COUNT (BEAKER) 0.05 K/ L 0.01-0.08 (test code = 417) IMMATURE GRANULOCYTES-RELATIVE 0.50 % 0.00-1.00 PERCENT (BEAKER) (test code = 2801) POCT-GLUCOSE [id number] 02:24:35 Test Item Value Reference Range Interpretation Comments POC-GLUCOSE METER 101 mg/dL 70-110 : TESTED A T [facility] 6720 (BEAKER) (test code = [facility], 153) 56622: Manager Hospice/Techni naif ID = [id number] for TUNDE DEAN POCT-GLUCOSE [id number] 00:35:31 Test Item Value Reference Range Interpretation Comments POC-GLUCOSE METER 101 mg/dL 70-110 : TESTED A T [facility] 6720 (BEAKER) (test code = [facility], [facility]) [id number]: Manager Hospice/Techni naif ID = [id number] for PAT FOY POCT-GLUCOSE [id number] 16:25:00 Test Item Value Reference Range Interpretation Comments POC-GLUCOSE METER 92 mg/dL 70-110 : TESTED A T [facility] 6720 (BEAKER) (test code = [facility], 153) 09115: Manager Hospice/Techni naif ID = [id number] for KEN MATTHEWS POCT-GLUCOSE [id number] 15:13:32 Test Item Value Reference Range Interpretation Comments POC-GLUCOSE METER 102 mg/dL 70-110 : TESTED A T [facility] 6720 (BEAKER) (test code = [facility], 153) 39836: Manager Hospice/Techni naif ID = [id number] for SAIRA CHUAFER POCT-GLUCOSE [id number] 12:00:19 Test Item Value Reference Range Interpretation Comments POC-GLUCOSE METER 114 mg/dL 70-110 H : TESTED A T [facility] 6720 (BEAKER) (test code = [facility], 153) 75272: Manager Hospice/Techni naif ID = [id number] for Elisabeth Welsh POCT-GLUCOSE [id number] 10:34:20 Test Item Value Reference Range Interpretation Comments POC-GLUCOSE METER 125 mg/dL 70-110 H : TESTED A T [facility] 6720 (BEAKER) (test code [place]BBY [place], = 1538) 33731: Manager Hospice/Techni naif ID = [id number] for Yazmin wilson (contract), Maritza marquez RAD, CHEST, 1 VIEW, NON [id number] 08:39:00Reason for exam:->Post OpShould this be performed at the bedside?->Yes [facility] : 1965 Sex: MFINAL REPORT Exam: RAD, CHEST, 1 VIEW, NON DEPTDate: 10/23/2022 8:38 AM Indication:Post OpComparison: Chest radiograph from yesterday. IMPRESSION: Lines/Tubes:Enteric and endotracheal tubes have been removed. Unchanged right IJ approach Comstock-Nader catheter. Median sternotomy wires noted. Mediastinal drains noted. Lungs and Pleura :Interstitial opacities are seen in both lungs. Small bilateral pleural effusions. No pneumothorax. Heart/Mediastinum:Unchanged. Bones/Soft Tissues: No acuteosseous abnormality. Upper abdomen: Unremarkable. Signed: Ana Arrington Verified Date/Time: 10/23/2022 08:39:40 POCT-GLUCOSE [id number] 07:57:35 Test Item Value Reference Range Interpretation Comments POC-GLUCOSE METER 104 mg/dL 70-110 : TESTED A T [facility] 6720 (BEAKER) (test code = [facility], 1538) 41613: Manager Hospice/Techni naif ID = [id number] for KEN CHUA POCT-GLUCOSE [id number] 06:27:52 Test Item Value Reference Range Interpretation Comments POC-GLUCOSE METER 110 mg/dL 70-110 : TESTED A T [facility] 6720 (BEAKER) (test code = [facility], 1538) 68464: Manager Hospice/Techni naif ID = [id number] for NG HANNA, DUNG POCT-GLUCOSE [id number] 05:12:14 Test Item Value Reference Range Interpretation Comments POC-GLUCOSE METER 101 mg/dL 70-110 : TESTED A T [facility] 6720 (BEAKER) (test code = [facility], 1538) 48697: Manager Hospice/Techni naif ID = [id number] for NG HANNA, DUNG [id number] 03:11:44 Test Item Value Reference Range Interpretation Comments MAGNESIUM (BEAKER) (test code = 1.9 mg/dL 1.6-2.6 627) Manager Hospice ID - [id number] 03:11:44 Test Item Value Reference Range Interpretation Comments PHOSPHORUS (BEAKER) (test code = 4.1 mg/dL 2.3-4.7 604) Manager Hospice ID - MARCOCOMPREHENSIVE METABOLIC [id number] 03:11:43 Test Item Value Reference Range Interpretation Comments TOTAL PROTEIN 5.5 gm/dL 6.0-8.3 L (BEAKER) (test code = 770) ALBUMIN (BEAKER) 3.6 g/dL 3.5-5.0 (test code = 1145) ALKALINE 42 U/L 40-150 PHOSPHATASE (BEAKER) (test code = 346) BILIRUBIN TOTAL 0.9 mg/dL 0.2-1.2 (BEAKER) (test code = 377) SODIUM (BEAKER) 142 meq/L 136-145 (test code = 381) POTASSIUM (BEAKER) 4.2 meq/L 3.5-5.1 (test code = 379) CHLORIDE (BEAKER) 104 meq/L 98-107 (test code = 382) CO2 (BEAKER) (test 26 meq/L 22-29 code = 355) BLOOD UREA 17 mg/dL 7-21 NITROGEN (BEAKER) (test code = 354) CREATININE 1.26 mg/dL 0.57-1.25 H (BEAKER) (test code = 358) GLUCOSE RANDOM 115 mg/dL 70-105 H (BEAKER) (test code = 652) CALCIUM (BEAKER) 9.1 mg/dL 8.4-10.2 (test code = 697) AST (SGOT) 44 U/L 5-34 H (BEAKER) (test code = 353) ALT (SGPT) 18 U/L 6-55 (BEAKER) (test code = 347) EGFR (BEAKER) 67 Interpretatio n of eGFR (test code = 1092) mL/min/1.[address] age Description sq m Result G1 Ary l or high >=90 G2 Mildly decreased 60-89 G3a Mildl y to moderately 45-5 9 G3b Moderately to s everely 30-44 G4 Severl y decreased 15-29 G5 Kidney failure <15Reported eGF R is based on the CKD-EPI 2020 equation that d oes not use a race coefficientEsti mated GFR is not as accur ate as Creatinine Rayne marsha in predicting glom erular filtration rate . Estimated GFR is not appl icable for dialysis patien ts Manager Hospice ID - MARCOLACTIC ACID, [id number] 02:54:35 Test Item Value Reference Range Interpretation Comments LACTATE BLOOD ARTERIAL (2) 2.1 mmol/L 0.5-2.0 H (BEAKER) (test code = 2874) Manager Hospice ID - [id number] 02:52:46 Test Item Value Reference Range Interpretation Comments FIBRINOGEN LEVEL (BEAKER) (test 346 mg/dl 225-434 code = 658) BLOOD GAS, [id number] 02:51:39 Test Item Value Reference Range Interpretation Comments PH ARTERIAL (BEAKER) (test code = 7.47 7.35-7.45 H 383) PCO2 ARTERIAL (BEAKER) (test code 42 mm Hg 35-45 = 384) PO2 ARTERIAL (BEAKER) (test code = 122 mm Hg 80-90 H 385) O2 SATURATION ARTERIAL (BEAKER) 98.5 % 96.0-97.0 H (test code = 386) HCO3 ARTERIAL (BEAKER) (test code 30 mmol/L 21-29 H = 388) BASE EXCESS ARTERIAL (BEAKER) 5.7 mmol/L -2.0-3.0 H (test code = 387) PATIENT TEMPERATURE (BEAKER) (test 37.8 code = 1818) FIO2 (BEAKER) (test code = 1819) 28.0 CALCIUM, [id number] 02:50:47 Test Item Value Reference Range Interpretation Comments CALCIUM IONIZED (BEAKER) (test 1.15 mmol/L 1.12-1.27 code = 698) PH, BLOOD (BEAKER) (test code = 7.48 1810) CBC (HEMOGRAM ONLY)[id number] 02:45:02 Test Item Value Reference Range Interpretation Comments WHITE BLOOD CELL COUNT (BEAKER) 12.1 K/ L 3.5-10.5 H (test code = 775) RED BLOOD CELL COUNT (BEAKER) 3.34 M/ L 4.63-6.08 L (test code = 761) HEMOGLOBIN (BEAKER) (test code = 10.2 GM/DL 13.7-17.5 L 410) HEMATOCRIT (BEAKER) (test code = 29.4 % 40.1-51.0 L 411) MEAN CORPUSCULAR VOLUME (BEAKER) 88 fL 79-92 (test code = 753) MEAN CORPUSCULAR HEMOGLOBIN 30.5 pg 25.7-32.2 (BEAKER) (test code = 751) MEAN CORPUSCULAR HEMOGLOBIN CONC 34.7 GM/DL 32.3-36.5 (BEAKER) (test code = 752) RED CELL DISTRIBUTION WIDTH 14.1 % 11.6-14.4 (BEAKER) (test code = 412) PLATELET COUNT (BEAKER) (test 125 K/CU MM 150-450 L code = 756) MEAN PLATELET VOLUME (BEAKER) 10.1 fL 9.4-12.4 (test code = 754) NUCLEATED RED BLOOD CELLS 0 /100 WBC 0-0 (BEAKER) (test code = 413) POCT-GLUCOSE [id number] 01:19:49 Test Item Value Reference Range Interpretation Comments POC-GLUCOSE METER 122 mg/dL 70-110 H : TESTED A T [facility] 6720 (BEAKER) (test code = [place], 1538) 17199: Manager Hospice/Techni naif ID = [id number] for IVONE ZHU POCT-GLUCOSE [id number] 00:12:51 Test Item Value Reference Range Interpretation Comments POC-GLUCOSE METER 121 mg/dL 70-110 H : TESTED A T [facility] 6720 (BEAKER) (test code = [place], 1538) 24322: Manager Hospice/Techni naif ID = [id number] for NG IVONE FERREIRA LACTIC ACID, [id number] 22:24:54 Test Item Value Reference Range Interpretation Comments LACTATE BLOOD ARTERIAL (2) 2.0 mmol/L 0.5-2.0 (BEAKER) (test code = 2874) Manager Hospice ID - MMHGB/HCT (H&H) - STAT [id number] 21:41:48 Test Item Value Reference Range Interpretation Comments HEMOGLOBIN (BEAKER) (test code = 11.2 GM/DL 13.0-16.8 L 410) HEMATOCRIT (BEAKER) (test code = 33.0 % 40.0-50.0 L 411) BLOOD GAS, [id number] 21:41:47 Test Item Value Reference Range Interpretation Comments PH ARTERIAL (BEAKER) (test code = 7.47 7.35-7.45 H 383) PCO2 ARTERIAL (BEAKER) (test code 40 mm Hg 35-45 = 384) PO2 ARTERIAL (BEAKER) (test code = 134 mm Hg 80-90 H 385) O2 SATURATION ARTERIAL (BEAKER) 98.9 % 96.0-97.0 H (test code = 386) HCO3 ARTERIAL (BEAKER) (test code 29 mmol/L 21-29 = 388) BASE EXCESS ARTERIAL (BEAKER) 4.6 mmol/L -2.0-3.0 H (test code = 387) PATIENT TEMPERATURE (BEAKER) (test 36.0 code = 1818) FIO2 (BEAKER) (test code = 1819) 100.0 SODIUM NA-STAT [id number] 21:41:41 Test Item Value Reference Range Interpretation Comments SODIUM (BEAKER) (test code = 381) 140 meq/L 136-145 POTASSIUM-STAT [id number] 21:41:41 Test Item Value Reference Range Interpretation Comments POTASSIUM (BEAKER) (test code = 4.2 meq/L 3.6-5.5 379) GLUCOSE-STAT [id number] 21:41:40 Test Item Value Reference Range Interpretation Comments GLUCOSE RANDOM (BEAKER) (test code 109 mg/dL 70-110 = 652) POCT-GLUCOSE [id number] 20:33:02 Test Item Value Reference Range Interpretation Comments POC-GLUCOSE METER 99 mg/dL 70-110 : Notified RN/MD: TESTED (BEAKER) (test code = AT [facility] [address] [facility] 1538) [facility], 770 30: Manager Hospice/Techni naif ID = [id number] for AHAM AD, DANIELLE [id number] 19:14:15 Test Item Value Reference Range Interpretation Comments PHOSPHORUS (BEAKER) (test code = 2.4 mg/dL 2.3-4.7 604) Manager Hospice ID - [id number] 19:14:15 Test Item Value Reference Range Interpretation Comments POTASSIUM (BEAKER) (test code = 4.7 meq/L 3.5-5.1 379) Manager Hospice ID - [id number] 19:14:14 Test Item Value Reference Range Interpretation Comments MAGNESIUM (BEAKER) (test code = 2.2 mg/dL 1.6-2.6 627) Manager Hospice ID - MMCALCIUM, [id number] 18:58:27 Test Item Value Reference Range Interpretation Comments CALCIUM IONIZED (BEAKER) (test 1.30 mmol/L 1.12-1.27 H code = 698) PH, BLOOD (BEAKER) (test code = 7.44 1810) HGB/HCT (H&H) - STAT [id number] 18:58:15 Test Item Value Reference Range Interpretation Comments HEMOGLOBIN (BEAKER) (test code = 11.8 GM/DL 13.0-16.8 L 410) HEMATOCRIT (BEAKER) (test code = 35.0 % 40.0-50.0 L 411) BLOOD GAS, [id number] 18:58:14 Test Item Value Reference Range Interpretation Comments PH ARTERIAL (BEAKER) (test code = 7.43 7.35-7.45 383) PCO2 ARTERIAL (BEAKER) (test code 42 mm Hg 35-45 = 384) PO2 ARTERIAL (BEAKER) (test code = 104 mm Hg 80-90 H 385) O2 SATURATION ARTERIAL (BEAKER) 97.8 % 96.0-97.0 H (test code = 386) HCO3 ARTERIAL (BEAKER) (test code 27 mmol/L 21-29 = 388) BASE EXCESS ARTERIAL (BEAKER) 2.8 mmol/L -2.0-3.0 (test code = 387) PATIENT TEMPERATURE (BEAKER) (test 37.6 code = 1818) FIO2 (BEAKER) (test code = 1819) 36.0 POTASSIUM-STAT [id number] 18:58:09 Test Item Value Reference Range Interpretation Comments POTASSIUM (BEAKER) (test code = 4.6 meq/L 3.6-5.5 379) SODIUM NA-STAT [id number] 18:58:08 Test Item Value Reference Range Interpretation Comments SODIUM (BEAKER) (test code = 381) 143 meq/L 136-145 GLUCOSE-STAT [id number] 18:58:02 Test Item Value Reference Range Interpretation Comments GLUCOSE RANDOM (BEAKER) (test code 105 mg/dL 70-110 = 652) LACTIC ACID, [id number] 18:35:11 Test Item Value Reference Range Interpretation Comments LACTATE BLOOD ARTERIAL (2) 6.1 mmol/L 0.5-2.0 HH (BEAKER) (test code = 2874) Manager Hospice ID - MMBLOOD GAS, [id number] 17:47:17 Test Item Value Reference Range Interpretation Comments PH ARTERIAL (BEAKER) (test code = 7.41 7.35-7.45 383) PCO2 ARTERIAL (BEAKER) (test code 42 mm Hg 35-45 = 384) PO2 ARTERIAL (BEAKER) (test code = 144 mm Hg 80-90 H 385) O2 SATURATION ARTERIAL (BEAKER) 98.9 % 96.0-97.0 H (test code = 386) HCO3 ARTERIAL (BEAKER) (test code 26 mmol/L 21-29 = 388) BASE EXCESS ARTERIAL (BEAKER) 1.0 mmol/L -2.0-3.0 (test code = 387) PATIENT TEMPERATURE (BEAKER) (test 36.9 code = 1818) FIO2 (BEAKER) (test code = 1819) 40.0 HGB/HCT (H&H) - STAT [id number] 17:47:17 Test Item Value Reference Range Interpretation Comments HEMOGLOBIN (BEAKER) (test code = 11.0 GM/DL 13.0-16.8 L 410) HEMATOCRIT (BEAKER) (test code = 32.0 % 40.0-50.0 L 411) SODIUM NA-STAT [id number] 17:47:09 Test Item Value Reference Range Interpretation Comments SODIUM (BEAKER) (test code = 381) 141 meq/L 136-145 POTASSIUM-STAT [id number] 17:47:09 Test Item Value Reference Range Interpretation Comments POTASSIUM (BEAKER) (test code = 4.1 meq/L 3.6-5.5 379) GLUCOSE-STAT [id number] 17:47:08 Test Item Value Reference Range Interpretation Comments GLUCOSE RANDOM (BEAKER) (test code 112 mg/dL 70-110 H = 652) RAD, CHEST, 1 VIEW, NON [id number] 16:54:00Reason for exam:->Post OpShould this be performed at the bedside?->Yes [facility] : 1965 Sex: MFINAL REPORT TECHNIQUE: Frontal view of the chest. INDICATION: Post Op. COMPARISON:10/15/2022. FINDINGS: LINES/TUBES: Endotracheal tube tip projected 3.7 cm above the level of the nhan. Right IJ Comstock-Nader catheter with tip projecting over right lower lobe lobar pulmonary artery. Esophagogastric tube is looped within the mid to distal esophagus and directed cephalad; tip not included on this examination catheter projected over the epigastric region. HEART AND MEDIASTINUM: Cardiomediastinal contour is within normal limits. Patient is status post median sternotomy and cardiac valve replacement. Patient is rotated on this examination. LUNGS: Patchy left mid to lower lung opacity with elevation of the left hemidiaphragm. Mild pulmonary vascular congestion. PLEURA: No pneumothorax. No significant pleural effusion. SOFT TISSUES AND BONES: Unremarkable. IMPRESSION: 1. Status post median sternotomy. Lines and tubes, as detailed above. An esophageal catheter looped within the mid to distal esophagus directed cephalad; tip not included on this examination. This will likely require removal and replacement to achieve intragastric positioning.2. Elevated left hemidiaphragm. Hazy left midto lower lung opacity which may be related to atelectasis and/or pneumonitis. Background of mild pulmonary vascular congestion Signed: Brown Hylton MDReport Verified Date/Time: 10/22/2022 16:54:55 LACTIC ACID, [id number] 16:44:10 Test Item Value Reference Range Interpretation Comments LACTATE BLOOD 8.0 mmol/L 0.5-2.0 HH Specimen sligh tly ARTERIAL (2) (BEAKER) hemoly zed (test code = 2874) Manager Hospice ID - MMBLOOD GAS, [id number] 16:27:25 Test Item Value Reference Range Interpretation Comments PH ARTERIAL (BEAKER) (test code = 7.38 7.35-7.45 383) PCO2 ARTERIAL (BEAKER) (test code 37 mm Hg 35-45 = 384) PO2 ARTERIAL (BEAKER) (test code 139 mm Hg 80-90 H = 385) O2 SATURATION ARTERIAL (BEAKER) 98.8 % 96.0-97.0 H (test code = 386) HCO3 ARTERIAL (BEAKER) (test code 22 mmol/L 21-29 = 388) BASE EXCESS ARTERIAL (BEAKER) -3.5 mmol/L -2.0-3.0 L (test code = 387) PATIENT TEMPERATURE (BEAKER) 35.7 (test code = 1818) FIO2 (BEAKER) (test code = 1819) 50.0 HGB/HCT (H&H) - STAT [id number] 16:27:25 Test Item Value Reference Range Interpretation Comments HEMOGLOBIN (BEAKER) (test code = 11.7 GM/DL 13.0-16.8 L 410) HEMATOCRIT (BEAKER) (test code = 34.0 % 40.0-50.0 L 411) SODIUM NA-STAT [id number] 16:19:14 Test Item Value Reference Range Interpretation Comments SODIUM (BEAKER) (test code = 381) 140 meq/L 136-145 POTASSIUM-STAT [id number] 16:19:14 Test Item Value Reference Range Interpretation Comments POTASSIUM (BEAKER) (test code = 3.9 meq/L 3.6-5.5 379) GLUCOSE-STAT [id number] 16:19:13 Test Item Value Reference Range Interpretation Comments GLUCOSE RANDOM (BEAKER) (test code 137 mg/dL 70-110 H = 652) (CELLAVISION MANUAL DIFF)2022-10-22 15:34:04 Test Item Value Reference Range Interpretation Comments NEUTROPHILS - REL 84 % (CELLAVISION)(BEAKER) (test code = 2816) LYMPHOCYTES - REL 8 % (CELLAVISION)(BEAKER) (test code = 2817) MONOCYTES - REL 3 % (CELLAVISION)(BEAKER) (test code = 2818) BANDS - REL (CELLAVISION)(BEAKER) 5 % 0-10 (test code = 2826) NEUTROPHILS - ABS 23.60 K/ul 1.78-5.38 H (CELLAVISION)(BEAKER) (test code = 2830) LYMPHOCYTES - ABS 2.25 K/ul 1.32-3.57 (CELLAVISION)(BEAKER) (test code = 2831) MONOCYTES - ABS 0.84 K/uL 0.30-0.82 H (CELLAVISION)(BEAKER) (test code = 2832) BANDS - ABS (CELLAVISION)(BEAKER) 1.41 K/uL 0.00-0.80 H (test code = 2840) TOTAL COUNTED (BEAKER) (test code 100 = 1351) PLT MORPHOLOGY (BEAKER) (test Normal code = 486) SMUDGE CELLS (BEAKER) (test code Present = 1371) ANISOCYTOSIS (BEAKER) (test code 2+ moderate = 961) MICROCYTES (BEAKER) (test code = 2+ moderate 965) PLATELET CONCENTRATION Adequate (CELLAVISION)(BEAKER) (test code = 3438) Manager [facility]osp[facility] ID - Charissa comments: Slide comments:LACTIC ACID, ARTERIAL 2022-10-22 15:24:06 Test Item Value Reference Range Interpretation Comments LACTATE BLOOD 7.1 mmol/L 0.5-2.0 HH Specimen sligh tly ARTERIAL (2) (BEAKER) hemoly zed (test code = 2874) Manager [facility]osp[facility] ID - [facility]ABOL[facility] [id number] 15:20:42 Test Item Value Reference Range Interpretation Comments TOTAL PROTEIN 6.1 gm/dL 6.0-8.3 Specimen sligh tly (BEAKER) (test hemolyzed code = 770) ALBUMIN (BEAKER) 3.9 g/dL 3.5-5.0 Specimen sl ightly (test code = 1145) hemolyzed ALKALINE 56 U/L 40-150 PHOSPHATASE (BEAKER) (test code = 346) BILIRUBIN TOTAL 1.8 mg/dL 0.2-1.2 H Specimen sli ghtly (BEAKER) (test hemolyzed code = 377) SODIUM (BEAKER) 142 meq/L 136-145 (test code = 381) POTASSIUM (BEAKER) 3.7 meq/L 3.5-5.1 Specimen slightly (test code = 379) hemolyzed CHLORIDE (BEAKER) 106 meq/L 98-107 (test code = 382) CO2 (BEAKER) (test 21 meq/L 22-29 L code = 355) BLOOD UREA 13 mg/dL 7-21 NITROGEN (BEAKER) (test code = 354) CREATININE 1.18 mg/dL 0.57-1.25 Specimen slight ly (BEAKER) (test hemolyzed code = 358) GLUCOSE RANDOM 132 mg/dL 70-105 H (BEAKER) (test code = 652) CALCIUM (BEAKER) 9.7 mg/dL 8.4-10.2 (test code = 697) AST (SGOT) 52 U/L 5-34 H Specimen slight ly (BEAKER) (test hemolyzed code = 353) ALT (SGPT) 18 U/L 6-55 Specimen slight ly (BEAKER) (test hemolyzed code = 347) EGFR (BEAKER) 73 Interpretatio n of eGFR (test code = 1092) mL/min/1.[address] age Description sq m Result G1 Ary l or high >=90 G2 Mildly decreased 60-89 G3a Mildl y to moderately 45- 59 G3b Moderately to s everely 30-44 G4 Severl y decreased 15-29 G5 Kidney failure <15Reported eGF R is based on the CKD-EPI 2020 equation that d oes not use a race coefficientEsti mated GFR is not as accur ate as Creatinine Rayne marsha in predicting glom erular filtration rate . Estimated GFR is not appl icable for dialysis patien ts Manager Hospice ID - [id number] 15:20:41 Test Item Value Reference Range Interpretation Comments MAGNESIUM (BEAKER) 2.4 mg/dL 1.6-2.6 Specimen slightly (test code = 627) hemolyzed Manager Hospice ID - [id number] 15:20:41 Test Item Value Reference Range Interpretation Comments PHOSPHORUS (BEAKER) 3.7 mg/dL 2.3-4.7 Specimen slightly (test code = 604) hemolyzed Manager Hospice ID - [id number] 15:20:04 Test Item Value Reference Range Interpretation Comments FIBRINOGEN LEVEL (BEAKER) (test 283 mg/dl 225-434 code = 658) [id number] 15:09:52 Test Item Value Reference Range Interpretation Comments PROTIME (BEAKER) (test code = 17.2 seconds 11.9-14.2 H 759) INR (BEAKER) (test code = 370) 1.50 <=5.90 PARTIAL THROMBOPLASTIN TIME 31.8 seconds 22.5-36.0 (BEAKER) (test code = 760) RECOMMENDED COUMADIN/WARFARIN INR THERAPY RANGESSTANDARD DOSE: 2.0 - 3.0 Includes: PROPHYLAXIS for venous thrombosis, systemic embolization; TREATMENT for venous thrombosis and/or pulmonary embolus.HIGH RISK: Target INR is 2.5-3.5 for patients with mechanical heart valves.PROTHROMBIN [id number] 15:09:12 Test Item Value Reference Range Interpretation Comments PROTIME (BEAKER) (test code = 17.2 seconds 11.9-14.2 H 759) INR (BEAKER) (test code = 370) 1.50 <=5.90 RECOMMENDED COUMADIN/WARFARIN INR THERAPY RANGESSTANDARD DOSE: 2.0 - 3.0 Includes: PROPHYLAXIS for venous thrombosis, systemic embolization; TREATMENT for venous thrombosis and/or pulmonary embolus.HIGH RISK: Target INR is 2.5-3.5 for patients with mechanical heart valves.CBC W/PLT COUNT & AUTO [id number] 15:05:41 Test Item Value Reference Range Interpretation Comments WHITE BLOOD CELL COUNT (BEAKER) 28.1 K/ L 3.5-10.5 H (test code = 775) RED BLOOD CELL COUNT (BEAKER) 3.68 M/ L 4.63-6.08 L (test code = 761) HEMOGLOBIN (BEAKER) (test code = 11.2 GM/DL 13.7-17.5 L 410) HEMATOCRIT (BEAKER) (test code = 32.9 % 40.1-51.0 L 411) MEAN CORPUSCULAR VOLUME (BEAKER) 89 fL 79-92 (test code = 753) MEAN CORPUSCULAR HEMOGLOBIN 30.4 pg 25.7-32.2 (BEAKER) (test code = 751) MEAN CORPUSCULAR HEMOGLOBIN CONC 34.0 GM/DL 32.3-36.5 (BEAKER) (test code = 752) RED CELL DISTRIBUTION WIDTH 13.8 % 11.6-14.4 (BEAKER) (test code = 412) PLATELET COUNT (BEAKER) (test 187 K/CU MM 150-450 code = 756) MEAN PLATELET VOLUME (BEAKER) 10.1 fL 9.4-12.4 (test code = 754) NUCLEATED RED BLOOD CELLS 0 /100 WBC 0-0 (BEAKER) (test code = 413) OXYGEN SATURATION, [id number] 14:34:19 Test Item Value Reference Range Interpretation Comments O2 SATURATION (MEASURED) (BEAKER) 82.6 % (test code = 1455) BLOOD GAS, [id number] 14:33:21 Test Item Value Reference Range Interpretation Comments PH ARTERIAL (BEAKER) (test code = 7.33 7.35-7.45 L 383) PCO2 ARTERIAL (BEAKER) (test code 46 mm Hg 35-45 H = 384) PO2 ARTERIAL (BEAKER) (test code 116 mm Hg 80-90 H = 385) O2 SATURATION ARTERIAL (BEAKER) 98.1 % 96.0-97.0 H (test code = 386) HCO3 ARTERIAL (BEAKER) (test code 24 mmol/L 21-29 = 388) BASE EXCESS ARTERIAL (BEAKER) -2.7 mmol/L -2.0-3.0 L (test code = 387) PATIENT TEMPERATURE (BEAKER) 36.1 (test code = 1818) FIO2 (BEAKER) (test code = 1819) 60.0 HGB/HCT (H&H) - STAT [id number] 14:33:15 Test Item Value Reference Range Interpretation Comments HEMOGLOBIN (BEAKER) (test code = 12.1 GM/DL 13.0-16.8 L 410) HEMATOCRIT (BEAKER) (test code = 36.0 % 40.0-50.0 L 411) CALCIUM, [id number] 14:33:14 Test Item Value Reference Range Interpretation Comments CALCIUM IONIZED (BEAKER) (test 1.11 mmol/L 1.12-1.27 L code = 698) PH, BLOOD (BEAKER) (test code = 7.32 1810) POTASSIUM-STAT [id number] 14:32:17 Test Item Value Reference Range Interpretation Comments POTASSIUM (BEAKER) (test code = 3.5 meq/L 3.6-5.5 L 379) GLUCOSE-STAT [id number] 14:32:16 Test Item Value Reference Range Interpretation Comments GLUCOSE RANDOM (BEAKER) (test code 132 mg/dL 70-110 H = 652) SODIUM NA-STAT [id number] 14:32:16 Test Item Value Reference Range Interpretation Comments SODIUM (BEAKER) (test code = 381) 142 meq/L 136-145 LACTIC ACID, [id number] 14:10:28 Test Item Value Reference Range Interpretation Comments LACTATE BLOOD 6.7 mmol/L 0.5-2.0 HH Specimen sligh tly ARTERIAL (2) (BEAKER) hemoly zed (test code = 2874) Manager Hospice ID - [id number] 13:54:55 Test Item Value Reference Range Interpretation Comments ACTIVATED CLOTTING TIME 119 sec : 74 -137 seconds, (BEAKER) (test code = Baseli ne: TESTED AT 441) [facility] [address] [facility], [address]: Manager Hospice/Techni naif ID = [id number] for MO KAREL, RASHIED [id number] 13:54:50 Test Item Value Reference Range Interpretation Comments ACTIVATED CLOTTING TIME 408 sec : 74 -137 seconds, (BEAKER) (test code = Baseli ne: TESTED AT 441) [address], [facility] 30: Manager Hospice/Techni naif ID = [id number] for Mariaa an, [place] [id number] 13:54:49 Test Item Value Reference Range Interpretation Comments ACTIVATED CLOTTING TIME 528 sec : 74 -137 seconds, (BEAKER) (test code = Baseli ne: TESTED AT 441) [address], [facility] 30: Manager Hospice/Techni naif ID = [id number] for Mariaa an, [place] [id number] 13:54:48 Test Item Value Reference Range Interpretation Comments ACTIVATED CLOTTING TIME 473 sec : 74 -137 seconds, (BEAKER) (test code = Baseli ne: TESTED AT 441) [address], [facility] 30: Manager Hospice/Techni naif ID = [id number] for Mariaa an, [place] [id number] 13:54:48 Test Item Value Reference Range Interpretation Comments ACTIVATED CLOTTING TIME 407 sec : 74 -137 seconds, (BEAKER) (test code = Baseli ne: TESTED AT 441) [address], [facility] 30: Manager Hospice/Techni naif ID = [id number] for Mariaa an, [place] [id number] 13:54:18 Test Item Value Reference Range Interpretation Comments ACTIVATED CLOTTING TIME 594 sec : 74 -137 seconds, (BEAKER) (test code = Baseli ne: TESTED AT 441) [place] [address]: Manager Hospice/Techni naif ID = [id number] for Mariaa an, [place] CALCIUM, [id number] 13:29:08 Test Item Value Reference Range Interpretation Comments CALCIUM IONIZED (BEAKER) (test 0.96 mmol/L 1.12-1.27 L code = 698) PH, BLOOD (BEAKER) (test code = 7.32 1810) POTASSIUM-STAT [id number] 13:28:16 Test Item Value Reference Range Interpretation Comments POTASSIUM (BEAKER) (test code = 3.3 meq/L 3.6-5.5 L 379) HGB/HCT (H&H) - STAT [id number] 13:28:16 Test Item Value Reference Range Interpretation Comments HEMOGLOBIN (BEAKER) (test code = 11.6 GM/DL 13.0-16.8 L 410) HEMATOCRIT (BEAKER) (test code = 34.0 % 40.0-50.0 L 411) BLOOD GAS, [id number] 13:28:15 Test Item Value Reference Range Interpretation Comments PH ARTERIAL (BEAKER) (test code = 7.32 7.35-7.45 L 383) PCO2 ARTERIAL (BEAKER) (test code 43 mm Hg 35-45 = 384) PO2 ARTERIAL (BEAKER) (test code 402 mm Hg 80-90 H = 385) O2 SATURATION ARTERIAL (BEAKER) 99.8 % 96.0-97.0 H (test code = 386) HCO3 ARTERIAL (BEAKER) (test code 22 mmol/L 21-29 = 388) BASE EXCESS ARTERIAL (BEAKER) -4.1 mmol/L -2.0-3.0 L (test code = 387) PATIENT TEMPERATURE (BEAKER) 36.0 (test code = 1818) FIO2 (BEAKER) (test code = 1819) 90.0 SODIUM NA-STAT [id number] 13:27:56 Test Item Value Reference Range Interpretation Comments SODIUM (BEAKER) (test code = 381) 141 meq/L 136-145 GLUCOSE-STAT [id number] 13:27:51 Test Item Value Reference Range Interpretation Comments GLUCOSE RANDOM (BEAKER) (test code 143 mg/dL 70-110 H = 652) POTASSIUM-STAT [id number] 12:21:24 Test Item Value Reference Range Interpretation Comments POTASSIUM (BEAKER) (test code = 3.1 meq/L 3.6-5.5 L 379) HGB/HCT (H&H) - STAT [id number] 12:21:24 Test Item Value Reference Range Interpretation Comments HEMOGLOBIN (BEAKER) (test code = 11.0 GM/DL 13.0-16.8 L 410) HEMATOCRIT (BEAKER) (test code = 32.0 % 40.0-50.0 L 411) BLOOD GAS, [id number] 12:21:23 Test Item Value Reference Range Interpretation Comments PH ARTERIAL (BEAKER) (test code = 7.31 7.35-7.45 L 383) PCO2 ARTERIAL (BEAKER) (test code 43 mm Hg 35-45 = 384) PO2 ARTERIAL (BEAKER) (test code 257 mm Hg 80-90 H = 385) O2 SATURATION ARTERIAL (BEAKER) 99.5 % 96.0-97.0 H (test code = 386) HCO3 ARTERIAL (BEAKER) (test code 21 mmol/L 21-29 = 388) BASE EXCESS ARTERIAL (BEAKER) -4.9 mmol/L -2.0-3.0 L (test code = 387) PATIENT TEMPERATURE (BEAKER) 37.8 (test code = 1818) FIO2 (BEAKER) (test code = 1819) 36.0 CALCIUM, [id number] 12:20:51 Test Item Value Reference Range Interpretation Comments CALCIUM IONIZED (BEAKER) (test 1.42 mmol/L 1.12-1.27 H code = 698) PH, BLOOD (BEAKER) (test code = 7.32 1810) SODIUM NA-STAT [id number] 12:19:08 Test Item Value Reference Range Interpretation Comments SODIUM (BEAKER) (test code = 381) 138 meq/L 136-145 GLUCOSE-STAT [id number] 12:19:07 Test Item Value Reference Range Interpretation Comments GLUCOSE RANDOM (BEAKER) (test code 139 mg/dL 70-110 H = 652) BLOOD GAS, [id number] 12:03:20 Test Item Value Reference Range Interpretation Comments PH ARTERIAL (BEAKER) (test code = 7.44 7.35-7.45 383) PCO2 ARTERIAL (BEAKER) (test code 33 mm Hg 35-45 L = 384) PO2 ARTERIAL (BEAKER) (test code 367 mm Hg 80-90 H = 385) O2 SATURATION ARTERIAL (BEAKER) 99.8 % 96.0-97.0 H (test code = 386) HCO3 ARTERIAL (BEAKER) (test code 22 mmol/L 21-29 = 388) BASE EXCESS ARTERIAL (BEAKER) -1.9 mmol/L -2.0-3.0 (test code = 387) PATIENT TEMPERATURE (BEAKER) 36.5 (test code = 1818) FIO2 (BEAKER) (test code = 1819) 70.0 HGB/HCT (H&H) - STAT [id number] 12:03:20 Test Item Value Reference Range Interpretation Comments HEMOGLOBIN (BEAKER) (test code = 11.5 GM/DL 13.0-16.8 L 410) HEMATOCRIT (BEAKER) (test code = 34.0 % 40.0-50.0 L 411) SODIUM NA-STAT [id number] 12:02:34 Test Item Value Reference Range Interpretation Comments SODIUM (BEAKER) (test code = 381) 135 meq/L 136-145 L GLUCOSE-STAT [id number] 12:02:34 Test Item Value Reference Range Interpretation Comments GLUCOSE RANDOM (BEAKER) (test code 153 mg/dL 70-110 H = 652) POTASSIUM-STAT [id number] 12:02:34 Test Item Value Reference Range Interpretation Comments POTASSIUM (BEAKER) (test code = 4.4 meq/L 3.6-5.5 379) [id number] 11:35:58 Test Item Value Reference Range Interpretation Comments FIBRINOGEN LEVEL (BEAKER) (test 150 mg/dl 225-434 L code = 658) LACTIC ACID, [id number] 11:35:02 Test Item Value Reference Range Interpretation Comments LACTATE BLOOD 1.6 mmol/L 0.5-2.0 Specimen sligh tly ARTERIAL (2) (BEAKER) hemoly zed (test code = 2874) Manager Hospice ID - BVPROTHROMBIN [id number] 11:31:14 Test Item Value Reference Range Interpretation Comments PROTIME (BEAKER) (test code = 43.0 seconds 11.9-14.2 H 759) INR (BEAKER) (test code = 370) 4.94 <=5.90 RECOMMENDED COUMADIN/WARFARIN INR THERAPY RANGESSTANDARD DOSE: 2.0 - 3.0 Includes: PROPHYLAXIS for venous thrombosis, systemic embolization; TREATMENT for venous thrombosis and/or pulmonary embolus.HIGH RISK: Target INR is 2.5-3.5 for patients with mechanical heart valves.HGB/HCT (H&H) - STAT [id number] 11:26:58 Test Item Value Reference Range Interpretation Comments HEMOGLOBIN (BEAKER) (test code = 12.0 GM/DL 13.0-16.8 L 410) HEMATOCRIT (BEAKER) (test code = 35.0 % 40.0-50.0 L 411) BLOOD GAS, [id number] 11:26:57 Test Item Value Reference Range Interpretation Comments PH ARTERIAL (BEAKER) (test code = 7.39 7.35-7.45 383) PCO2 ARTERIAL (BEAKER) (test code 40 mm Hg 35-45 = 384) PO2 ARTERIAL (BEAKER) (test code 328 mm Hg 80-90 H = 385) O2 SATURATION ARTERIAL (BEAKER) 99.7 % 96.0-97.0 H (test code = 386) HCO3 ARTERIAL (BEAKER) (test code 24 mmol/L 21-29 = 388) BASE EXCESS ARTERIAL (BEAKER) -1.5 mmol/L -2.0-3.0 (test code = 387) PATIENT TEMPERATURE (BEAKER) 35.7 (test code = 1818) FIO2 (BEAKER) (test code = 1819) 70.0 POTASSIUM-STAT [id number] 11:25:33 Test Item Value Reference Range Interpretation Comments POTASSIUM (BEAKER) (test code = 4.5 meq/L 3.6-5.5 379) GLUCOSE-STAT [id number] 11:25:27 Test Item Value Reference Range Interpretation Comments GLUCOSE RANDOM (BEAKER) (test code 193 mg/dL 70-110 H = 652) SODIUM NA-STAT [id number] 11:25:27 Test Item Value Reference Range Interpretation Comments SODIUM (BEAKER) (test code = 381) 138 meq/L 136-145 PLATELET [id number] 11:21:06 Test Item Value Reference Range Interpretation Comments PLATELET COUNT (BEAKER) (test 147 K/CU MM 150-450 L code = 756) Manager Hospice ID - [id number]/HCT (H&H) - STAT [id number] 10:37:32 Test Item Value Reference Range Interpretation Comments HEMOGLOBIN (BEAKER) (test code = 11.7 GM/DL 13.0-16.8 L 410) HEMATOCRIT (BEAKER) (test code = 34.0 % 40.0-50.0 L 411) BLOOD GAS, [id number] 10:37:31 Test Item Value Reference Range Interpretation Comments PH ARTERIAL (BEAKER) (test code = 7.44 7.35-7.45 383) PCO2 ARTERIAL (BEAKER) (test code 36 mm Hg 35-45 = 384) PO2 ARTERIAL (BEAKER) (test code 359 mm Hg 80-90 H = 385) O2 SATURATION ARTERIAL (BEAKER) 99.8 % 96.0-97.0 H (test code = 386) HCO3 ARTERIAL (BEAKER) (test code 25 mmol/L 21-29 = 388) BASE EXCESS ARTERIAL (BEAKER) -0.6 mmol/L -2.0-3.0 (test code = 387) PATIENT TEMPERATURE (BEAKER) 32.0 (test code = 1818) FIO2 (BEAKER) (test code = 1819) 65.0 POTASSIUM-STAT [id number] 10:37:20 Test Item Value Reference Range Interpretation Comments POTASSIUM (BEAKER) (test code = 4.4 meq/L 3.6-5.5 379) GLUCOSE-STAT [id number] 10:37:19 Test Item Value Reference Range Interpretation Comments GLUCOSE RANDOM (BEAKER) (test code 211 mg/dL 70-110 H = 652) SODIUM NA-STAT [id number] 10:37:19 Test Item Value Reference Range Interpretation Comments SODIUM (BEAKER) (test code = 381) 138 meq/L 136-145 HGB/HCT (H&H) - STAT [id number] 10:13:35 Test Item Value Reference Range Interpretation Comments HEMOGLOBIN (BEAKER) (test code = 11.4 GM/DL 13.0-16.8 L 410) HEMATOCRIT (BEAKER) (test code = 34.0 % 40.0-50.0 L 411) BLOOD GAS, [id number] 10:13:34 Test Item Value Reference Range Interpretation Comments PH ARTERIAL (BEAKER) (test code = 7.37 7.35-7.45 383) PCO2 ARTERIAL (BEAKER) (test code 42 mm Hg 35-45 = 384) PO2 ARTERIAL (BEAKER) (test code 439 mm Hg 80-90 H = 385) O2 SATURATION ARTERIAL (BEAKER) 99.8 % 96.0-97.0 H (test code = 386) HCO3 ARTERIAL (BEAKER) (test code 24 mmol/L 21-29 = 388) BASE EXCESS ARTERIAL (BEAKER) -1.7 mmol/L -2.0-3.0 (test code = 387) PATIENT TEMPERATURE (BEAKER) 35.8 (test code = 1818) FIO2 (BEAKER) (test code = 1819) 80.0 SODIUM NA-STAT [id number] 10:13:34 Test Item Value Reference Range Interpretation Comments SODIUM (BEAKER) (test code = 381) 136 meq/L 136-145 GLUCOSE-STAT [id number] 10:12:16 Test Item Value Reference Range Interpretation Comments GLUCOSE RANDOM (BEAKER) (test code 188 mg/dL 70-110 H = 652) POTASSIUM-STAT [id number] 10:12:16 Test Item Value Reference Range Interpretation Comments POTASSIUM (BEAKER) (test code = 4.5 meq/L 3.6-5.5 379) CALCIUM, [id number] 08:24:38 Test Item Value Reference Range Interpretation Comments CALCIUM IONIZED (BEAKER) (test 1.10 mmol/L 1.12-1.27 L code = 698) PH, BLOOD (BEAKER) (test code = 7.42 1810) BLOOD GAS, [id number] 08:24:38 Test Item Value Reference Range Interpretation Comments PH ARTERIAL (BEAKER) (test code = 7.43 7.35-7.45 383) PCO2 ARTERIAL (BEAKER) (test code 37 mm Hg 35-45 = 384) PO2 ARTERIAL (BEAKER) (test code = 255 mm Hg 80-90 H 385) O2 SATURATION ARTERIAL (BEAKER) 99.6 % 96.0-97.0 H (test code = 386) HCO3 ARTERIAL (BEAKER) (test code 24 mmol/L 21-29 = 388) BASE EXCESS ARTERIAL (BEAKER) 0.0 mmol/L -2.0-3.0 (test code = 387) PATIENT TEMPERATURE (BEAKER) (test 36.0 code = 1818) FIO2 (BEAKER) (test code = 1819) 100.0 POTASSIUM-STAT [id number] 08:24:38 Test Item Value Reference Range Interpretation Comments POTASSIUM (BEAKER) (test code = 2.9 meq/L 3.6-5.5 L 379) SODIUM NA-STAT [id number] 08:24:11 Test Item Value Reference Range Interpretation Comments SODIUM (BEAKER) (test code = 381) 144 meq/L 136-145 HGB/HCT (H&H) - STAT [id number] 08:24:11 Test Item Value Reference Range Interpretation Comments HEMOGLOBIN (BEAKER) (test code = 15.3 GM/DL 13.0-16.8 410) HEMATOCRIT (BEAKER) (test code = 45.0 % 40.0-50.0 411) GLUCOSE-STAT [id number] 08:24:10 Test Item Value Reference Range Interpretation Comments GLUCOSE RANDOM (BEAKER) (test code = 89 mg/dL 70-110 652) POCT-GLUCOSE [id number] 07:13:35 Test Item Value Reference Range Interpretation Comments POC-GLUCOSE METER 92 mg/dL 70-110 : TESTED A T [facility] [address] (BEAKER) (test code = [place], 1538) [address]: Manager Hospice/Techni naif ID = [id number] for MELVIN TANG HEPATITIS B [id number] 12:32:45 Test Item Value Reference Range Interpretation Comments HEPATITIS B CORE TOTAL ANTIBODY Nonreactive Nonreactive (BEAKER) (test code = 497) HEPATITIS B SURFACE ANTIBODY < mIU/mL <8.0 (BEAKER) (test code = 647) HEPATITIS B SURFACE ANTIGEN (2) Nonreactive Nonreactive (BEAKER) (test code = 2585) Manager Hospice ID - ADMINHEPATITIS C [id number] 12:31:04 Test Item Value Reference Range Interpretation Comments HEPATITIS C ANTIBODY (BEAKER) Nonreactive Nonreactive (test code = 367) Manager Hospice ID - ADMINHIV-1 ANTIGEN WITH HIV-1/2 [id number] 12:31:04 Test Item Value Reference Range Interpretation Comments HIV-1 ANTIGEN WITH HIV 1\\T\\2 Nonreactive Nonreactive ANTIBODY (2) (BEAKER) (test code = 2586) Manager Hospice ID - ADMINHEMOGLOBIN [id number] 12:30:48 Test Item Value Reference Range Interpretation Comments HEMOGLOBIN A1C 5.2 % See_Comment [Automated m essage] ELECTROPHORESIS (BEAKER) The system which (test code = 3811) generated this result transmitted ref erence range: <=5.6%. The reference range was not used to int erpret this result as normal/abnormal . "The A1c is measured using a NGS-certified method. HbA1c value equal to or greater than 6.5% as thediagnosis cutoff for diabetes. An HbA1c value of 5.7- 6.4% indicates increased risk for diabetes (prediabetes)."Manager Hospice ID - ADMRAD, CHEST, 2 [id number] 12:16:00Reason for Exam:->[facility] : 1965 Sex: MFINAL REPORT INDICATION: preop COMPARISON: None TECHNIQUE: Frontal and lateral views of the chest. FINDINGS: Lines, tubes, and devices: None.Lungs and pleura: Clear lungs. No effusion.Heart and mediastinum: Normal heart size. Unremarkable mediastinal contours.Osseous structures: No acute abnormality. Mild spondylosis and facet arthropathy are present within the spine. Other: None. IMP RESSION: No acute intrathoracic abnormality. Signed: [facility] Verified Date/Time: 10/15/2022 12:16:37 Reading Location: [address] Reading Room ALT (SGPT)2022-10-15 11:35:12 Test Item Value Reference Range Interpretation Comments ALT (SGPT) (MICHELET) (test code = 347) 11 U/L 6-55 Manager Hospice ID - mmAST (SGOT)2022-10-15 11:35:12 Test Item Value Reference Range Interpretation Comments AST (SGOT) (MICHELET) (test code = 353) 11 U/L 5-34 Manager Hospice ID - mmPROTEIN, [id number] 11:35:12 Test Item Value Reference Range Interpretation Comments TOTAL PROTEIN (BEAKER) (test code = 7.7 gm/dL 6.0-8.3 770) Manager Hospice ID - [id number] 11:35:12 Test Item Value Reference Range Interpretation Comments ALBUMIN (BEAKER) (test code = 1145) 4.6 g/dL 3.5-5.0 Manager Hospice ID - mmBILIRUBIN, ADULT [id number] 11:35:12 Test Item Value Reference Range Interpretation Comments BILIRUBIN TOTAL (BEAKER) (test code 0.6 mg/dL 0.2-1.2 = 377) Manager Hospice ID - mmBILIRUBIN, [id number] 11:35:12 Test Item Value Reference Range Interpretation Comments BILIRUBIN DIRECT (BEAKER) (test 0.2 mg/dL 0.1-0.5 code = 706) Manager Hospice ID - mmLACTATE DEHYDROGENASE (LDH)2022-10-15 11:35:12 Test Item Value Reference Range Interpretation Comments LACTATE DEHYDROGENASE (BEAKER) (test 141 U/L 125-220 code = 635) Manager Hospice ID - mmBASIC METABOLIC [id number] 11:35:11 Test Item Value Reference Range Interpretation Comments SODIUM (BEAKER) 138 meq/L 136-145 (test code = 381) POTASSIUM 3.3 meq/L 3.5-5.1 L (BEAKER) (test code = 379) CHLORIDE (BEAKER) 101 meq/L 98-107 (test code = 382) CO2 (BEAKER) 28 meq/L 22-29 (test code = 355) BLOOD UREA 9 mg/dL 7-21 NITROGEN (BEAKER) (test code = 354) CREATININE 1.20 mg/dL 0.57-1.25 (BEAKER) (test code = 358) GLUCOSE RANDOM 90 mg/dL 70-105 (BEAKER) (test code = 652) CALCIUM (BEAKER) 9.6 mg/dL 8.4-10.2 (test code = 697) EGFR (BEAKER) 71 Interpretatio n of eGFR (test code = mL/min/1.73 values Stage D escription 1092) sq m Result G1 Ary l or high >=90 G2 Mildly decreased 60-89 G3a Mildl y to moderately 45-5 9 G3b Moderately to s everely 30-44 G4 Severl y decreased 15-29 G5 Kidney failure <15Reported eGF R is based on the CKD-EPI 2020 equation that d oes not use a race coefficientEsti mated GFR is not as accur ate as Creatinine Rayne marsha in predicting glom erular filtration rate . Estimated GFR is not appl icable for dialysis patien ts Manager Hospice ID - mmALKALINE [id number] 11:35:06 Test Item Value Reference Range Interpretation Comments ALKALINE PHOSPHATASE (BEAKER) (test 89 U/L 40-150 code = 346) Manager Hospice ID - [id number] 11:33:46 Test Item Value Reference Range Interpretation Comments PARTIAL THROMBOPLASTIN TIME 30.5 seconds 22.5-36.0 (BEAKER) (test code = 760) PROTHROMBIN TIME/[id number] 11:33:04 Test Item Value Reference Range Interpretation Comments PROTIME (BEAKER) (test code = 14.2 seconds 11.9-14.2 759) INR (BEAKER) (test code = 370) 1.17 <=5.90 RECOMMENDED COUMADIN/WARFARIN INR THERAPY RANGESSTANDARD DOSE: 2.0 - 3.0 Includes: PROPHYLAXIS for venous thrombosis, systemic embolization; TREATMENT for venous thrombosis and/or pulmonary embolus.HIGH RISK: Target INR is 2.5-3.5 for patients with mechanical heart valves.Urinalysis w/[id number] 11:24:13 Test Item Value Reference Range Interpretation Comments Color, UA (test code Colorless = 5778-6) Clarity, UA (test Clear code = 5767-9) Specific [place], UA 1.004 1.001-1.035 (test code = 5811-5) pH, UA (test code = 7.5 5.0-8.0 5803-2) Protein, UA (test Negative Negative code = 51470-1) Glucose, UA (test Negative Negative code = 365) Ketones, UA (test Negative Negative code = 2514-8) Bilirubin, UA (test Negative Negative code = 53229-0) Blood, UA (test code Small Negative A = 79959-4) Nitrite, UA (test Negative Negative code = 5802-4) Leukocytes, UA (test Negative Negative code = 5799-2) Urobilinogen, UA 0.2 0.2-1.0 (test code = 76992-0) RBC, UA (test code = 5 See_Comment [Autom ated 64168-1) message] The system which generated this result transmitted reference range : /HPF. The reference range was not used to interpret this result as normal/abnormal . WBC, UA (test code = See_Comment [Autom ated 5821-4) message] The system which generated this result transmitted reference range : /HPF. The reference range was not used to interpret this result as normal/abnormal . Squam Epithel, UA See_Comment [Automate d (test code = 79478-1) messag e] The system which generated this result transmitted reference range : /HPF. The reference range was not used to interpret this result as normal/abnormal . Specimen Source (test Urine, Voided code = 2795) ARANZA (test code = ARANZA) [facility] ID - [auto][facility] ID - tech Lab Interpretation Abnormal (test code = 09580-5) [facility] [id number] 11:24:13 Test Item Value Reference Range Interpretation Comments COLOR (BEAKER) (test code = Colorless 470) CLARITY (BEAKER) (test code = Clear 469) SPECIFIC GRAVITY UA (BEAKER) 1.004 1.001-1.035 (test code = 468) PH UA (BEAKER) (test code = 7.5 5.0-8.0 467) PROTEIN UA (BEAKER) (test code Negative Negative = 464) GLUCOSE UA (BEAKER) (test code Negative Negative = 365) KETONES UA (BEAKER) (test code Negative Negative = 371) BILIRUBIN UA (BEAKER) (test Negative Negative code = 462) BLOOD UA (BEAKER) (test code = Small Negative A 461) NITRITE UA (BEAKER) (test code Negative Negative = 465) LEUKOCYTE ESTERASE UA (BEAKER) Negative Negative (test code = 466) UROBILINOGEN UA (BEAKER) (test 0.2 0.2-1.0 code = 463) RBC UA (BEAKER) (test code = 5 /HPF 519) WBC UA (BEAKER) (test code = < /HPF 520) SQUAMOUS EPITHELIAL (BEAKER) < /HPF (test code = 516) SOURCE(BEAKER) (test code = Urine, Voided 1808) [facility] - [auto][facility] ID - techCBC W/PLT COUNT & AUTO DIFFERENTIAL 2022-10-15 11:20:35 Test Item Value Reference Range Interpretation Comments WHITE BLOOD CELL COUNT (BEAKER) 10.5 K/ L 3.5-10.5 (test code = 775) RED BLOOD CELL COUNT (BEAKER) 5.74 M/ L 4.63-6.08 (test code = 761) HEMOGLOBIN (BEAKER) (test code = 17.1 GM/DL 13.7-17.5 410) HEMATOCRIT (BEAKER) (test code = 50.4 % 40.1-51.0 411) MEAN CORPUSCULAR VOLUME (BEAKER) 88 fL 79-92 (test code = 753) MEAN CORPUSCULAR HEMOGLOBIN 29.8 pg 25.7-32.2 (BEAKER) (test code = 751) MEAN CORPUSCULAR HEMOGLOBIN CONC 33.9 GM/DL 32.3-36.5 (BEAKER) (test code = 752) RED CELL DISTRIBUTION WIDTH 13.8 % 11.6-14.4 (BEAKER) (test code = 412) PLATELET COUNT (BEAKER) (test 275 K/CU MM 150-450 code = 756) MEAN PLATELET VOLUME (BEAKER) 10.0 fL 9.4-12.4 (test code = 754) NUCLEATED RED BLOOD CELLS 0 /100 WBC 0-0 (BEAKER) (test code = 413) NEUTROPHILS RELATIVE PERCENT 65 % (BEAKER) (test code = 429) LYMPHOCYTES RELATIVE PERCENT 25 % (BEAKER) (test code = 430) MONOCYTES RELATIVE PERCENT 7 % (BEAKER) (test code = 431) EOSINOPHILS RELATIVE PERCENT 2 % (BEAKER) (test code = 432) BASOPHILS RELATIVE PERCENT 1 % (BEAKER) (test code = 437) NEUTROPHILS ABSOLUTE COUNT 6.87 K/ L 1.78-5.38 H (BEAKER) (test code = 670) LYMPHOCYTES ABSOLUTE COUNT 2.65 K/ L 1.32-3.57 (BEAKER) (test code = 414) MONOCYTES ABSOLUTE COUNT (BEAKER) 0.71 K/ L 0.30-0.82 (test code = 415) EOSINOPHILS ABSOLUTE COUNT 0.18 K/ L 0.04-0.54 (BEAKER) (test code = 416) BASOPHILS ABSOLUTE COUNT (BEAKER) 0.11 K/ L 0.01-0.08 H (test code = 417) IMMATURE GRANULOCYTES-RELATIVE 0.20 % 0.00-1.00 PERCENT (BEAKER) (test code = 2801) Cv stress [id number] 10:39:42 Test Item Value Reference Range Interpretation Comments Resting HR (test code 82 = 8027364523) Resting BP (test code 186&85 = 6612368637) Peak MET Achieved 1.0 (test code = 7159968024) Protocol Name (test Lexiscan code = 7173721298) Time in Exercise 00:01:00 Phase (test code = 5025500556) Max Systolic BP (test 186 code = 5366158884) Max Diastolic BP 85 (test code = 9327681353) Max Heart Rate (test 107 code = 2013425459) Max Predicted Heart 163 Rate (test code = 1854438808) Target HR Formula (220 - Age)*100% (test code = 5896903452) Test Indication (test chest pain code = 2485877473) Arrhy During Ex (test code = 6710893150) ECG Interp Before EX (test code = 2011374800) ECG Interp During Ex (test code = 1083030171) Ex Summary Comment (test code = 5488694550) Overall HR Response to Exercise (test code = 6955163596) Overall BP Response To Exercise (test code = 6073495177) Reason for Protocol Complete Termination (test code = 9560932146) Stress Test -Waveform interpreted in Impression (test code report associated with = 1979943139) image study. No interpretation is provided as part of this Stress ECG report.-Electronically Signed By Dustin Egan MD ([id number]), news video editor Estrella Romero ([id number]) on 08/18/2022 5:39:39 [id number] 10:39:42 Test Item Value Reference Range Interpretation Comments Resting HR (test code 82 = 2611134889) Resting BP (test code 186&85 = 6408566671) Peak MET Achieved 1.0 (test code = 3650707523) Protocol Name (test Lexiscan code = 1052227452) Time in Exercise 00:01:00 Phase (test code = 3991932654) Max Systolic BP (test 186 code = 6262658292) Max Diastolic BP 85 (test code = 1512375696) Max Heart Rate (test 107 code = 0927249764) Max Predicted Heart 163 Rate (test code = 9885483142) Target HR Formula (220 - Age)*100% (test code = 8599050149) Test Indication (test chest pain code = 0041311266) Arrhy During Ex (test code = 0227731205) ECG Interp Before EX (test code = 0541555972) ECG Interp During Ex (test code = 1912586226) Ex Summary Comment (test code = 5194986128) Overall HR Response to Exercise (test code = 1297793690) Overall BP Response To Exercise (test code = 1019603115) Reason for Protocol Complete Termination (test code = 6888766801) Stress Test -Waveform interpreted in Impression (test code report associated with = 3914194112) image study. No interpretation is provided as part of this Stress ECG report.-Electronically Signed By Dustin Egan MD ([id number]), news video editor Estrella Romero ([id number]) on 08/18/2022 5:39:39 AM [facility] 12 [id number] 21:56:15 Test Item Value Reference Range Interpretation Comments Ventricular rate (test 75 code = 253) Atrial rate (test code 75 = 255) IA interval (test code 140 = 266) QRSD interval (test 94 code = 260) QT interval (test code 370 = 264) QTC interval (test 413 code = 265) P axis 1 (test code = 61 267) QRS axis 1 (test code 55 = 268) T wave axis (test code 168 = 270) EKG impression (test Normal sinus code = 273) rhythm-Cannot rule out Anterior infarct , age undetermined-T wave abnormality, consider inferolateral ischemia-Abnormal ECG-In automated comparison with ECG of 09-JAN-2016 18:09,-Vent. rate has decreased BY 42 [id number]-Tjm-kyqmduww change in ST segment in Inferior leads-T wave inversion now evident in Inferior leads- [facility] 12 [id number] 21:56:15 Test Item Value Reference Range Interpretation Comments Ventricular rate (test 75 code = 253) Atrial rate (test code 75 = 255) IA interval (test code 140 = 266) QRSD interval (test 94 code = 260) QT interval (test code 370 = 264) QTC interval (test 413 code = 265) P axis 1 (test code = 61 267) QRS axis 1 (test code 55 = 268) T wave axis (test code 168 = 270) EKG impression (test Normal sinus code = 273) rhythm-Cannot rule out Anterior infarct , age undetermined-T wave abnormality, consider inferolateral ischemia-Abnormal ECG-In automated comparison with ECG of 09-JAN-2016 18:09,-Vent. rate has decreased BY 42 [id number]-Sgk-vpqjbqjn change in ST segment in Inferior leads-T wave inversion now evident in Inferior leads- [facility] ED Preliminary Interpretation - Not an [id number] 02:45:35 Test Item Value Reference Range Interpretation Comments ARANZA (test code = ARANZA) Adali Arrington MD 08[facility]20[facility]22 1[facility] Interpretation - Not an OrderPerformed by: Adali Arrington MDAuthorized by: Adali Arrington MD ECG reviewed by ED Physician in the absence of a hosiery operator: yes Interpretation: Interpretation: abnormal Rate: ECG rate: 75 ECG rate assessment: normal Rhythm: Rhythm: sinus rhythm ST segments: ST segments: Non-specificT waves: T waves: inverted Inverted: I and aVLComments: No STEMI Lab Interpretation Abnormal (test code = 68703-5) [facility] ED Preliminary Interpretation - Not an [id number] 02:45:35 Test Item Value Reference Range Interpretation Comments ARANZA (test code = ARANZA) Adali Arrington MD 08/20/2022 1:46 [facility] Interpretation - Not an OrderPerformed by: Adali Arrington MDAuthorized by: Adali Arrington MD ECG reviewed by ED Physician in the absence of a hosiery operator: yes Interpretation: Interpretation: abnormal Rate: ECG rate: 75 ECG rate assessment: normal Rhythm: Rhythm: sinus rhythm ST segments: ST segments: Non-specificT waves: T waves: inverted Inverted: I and aVLComments: No STEMI Lab Interpretation Abnormal (test code = 26626-0) [facility] (COVID-19) RNA [Presence] in Respiratory specimen by CALEB with probe [id number] 22:21:34 Test Item Value Reference Range Interpretation Comments SARS-CoV-2 (COVID-19) RNA Not detected Not-Detected [Presence] in Respiratory specimen by CALEB with probe detection (test code = 34331-0) [facility] [id number] 09:58:00 Test Item Value Reference Range Interpretation Comments Calcium Lvl (test code = Calcium Lvl) 8.4 8.5-10.5 [facility]2017-08-10 09:58:00 Test Item Value Reference Range Interpretation Comments Glucose Lvl (test code = Glucose Lvl) 101 70-99 [facility]2017-08-10 09:58:00 Test Item Value Reference Range Interpretation Comments BUN (test code = BUN) 15 7-22 [facility]2017-08-10 09:58:00 Test Item Value Reference Range Interpretation Comments Potassium Lvl (test code = Potassium 3.9 3.5-5.1 Lvl) [facility]2017-08-10 09:58:00 Test Item Value Reference Range Interpretation Comments Chloride Lvl (test code = Chloride Lvl) 105 95-109 [facility]2017-08-10 09:58:00 Test Item Value Reference Range Interpretation Comments CO2 (test code = CO2) 22 24-32 [facility]2017-08-10 09:58:00 Test Item Value Reference Range Interpretation Comments Creatinine Lvl (test code = Creatinine 1.29 0.50-1.40 Lvl) [facility]2017-08-10 09:58:00 Test Item Value Reference Range Interpretation Comments eGFR (test code = eGFR) 63 [facility]2017-08-10 09:58:00 Test Item Value Reference Range Interpretation Comments AGAP (test code = AGAP) 14.9 10.0-20.0 [facility]2017-08-10 09:58:00 Test Item Value Reference Range Interpretation Comments Sodium Lvl (test code = Sodium Lvl) 138 135-145 [facility]2017-08-10 09:58:00 Test Item Value Reference Range Interpretation Comments Calcium Lvl (test code = Calcium Lvl) 8.4 8.5-10.5 [facility]2017-08-10 09:58:00 Test Item Value Reference Range Interpretation Comments Glucose Lvl (test code = Glucose Lvl) 101 70-99 [facility]2017-08-10 09:58:00 Test Item Value Reference Range Interpretation Comments BUN (test code = BUN) 15 7-22 [facility]2017-08-10 09:58:00 Test Item Value Reference Range Interpretation Comments Potassium Lvl (test code = Potassium 3.9 3.5-5.1 Lvl) [facility]2017-08-10 09:58:00 Test Item Value Reference Range Interpretation Comments Chloride Lvl (test code = Chloride Lvl) 105 95-109 [facility]2017-08-10 09:58:00 Test Item Value Reference Range Interpretation Comments CO2 (test code = CO2) 22 24-32 [facility]2017-08-10 09:58:00 Test Item Value Reference Range Interpretation Comments Creatinine Lvl (test code = Creatinine 1.29 0.50-1.40 Lvl) [facility]2017-08-10 09:58:00 Test Item Value Reference Range Interpretation Comments eGFR (test code = eGFR) 63 [facility]2017-08-10 09:58:00 Test Item Value Reference Range Interpretation Comments AGAP (test code = AGAP) 14.9 10.0-20.0 [facility]2017-08-10 09:58:00 Test Item Value Reference Range Interpretation Comments Sodium Lvl (test code = Sodium Lvl) 138 135-145 [facility]2017-08-10 09:58:00 Test Item Value Reference Range Interpretation Comments Calcium Lvl (test code = Calcium Lvl) 8.4 8.5-10.5 [facility]2017-08-10 09:58:00 Test Item Value Reference Range Interpretation Comments Glucose Lvl (test code = Glucose Lvl) 101 70-99 [facility]2017-08-10 09:58:00 Test Item Value Reference Range Interpretation Comments BUN (test code = BUN) 15 7-22 [facility]2017-08-10 09:58:00 Test Item Value Reference Range Interpretation Comments Potassium Lvl (test code = Potassium 3.9 3.5-5.1 Lvl) [facility]2017-08-10 09:58:00 Test Item Value Reference Range Interpretation Comments Chloride Lvl (test code = Chloride Lvl) 105 95-109 [facility]2017-08-10 09:58:00 Test Item Value Reference Range Interpretation Comments CO2 (test code = CO2) 22 24-32 [facility]2017-08-10 09:58:00 Test Item Value Reference Range Interpretation Comments Creatinine Lvl (test code = Creatinine 1.29 0.50-1.40 Lvl) [facility]2017-08-10 09:58:00 Test Item Value Reference Range Interpretation Comments eGFR (test code = eGFR) 63 [facility]2017-08-10 09:58:00 Test Item Value Reference Range Interpretation Comments AGAP (test code = AGAP) 14.9 10.0-20.0 [facility]2017-08-10 09:58:00 Test Item Value Reference Range Interpretation Comments Sodium Lvl (test code = Sodium Lvl) 138 135-145 [facility]2017-08-10 09:58:00 Test Item Value Reference Range Interpretation Comments Calcium Lvl (test code = Calcium Lvl) 8.4 8.5-10.5 [facility]2017-08-10 09:58:00 Test Item Value Reference Range Interpretation Comments Glucose Lvl (test code = Glucose Lvl) 101 70-99 [facility]2017-08-10 09:58:00 Test Item Value Reference Range Interpretation Comments BUN (test code = BUN) 15 7-22 [facility]2017-08-10 09:58:00 Test Item Value Reference Range Interpretation Comments Potassium Lvl (test code = Potassium 3.9 3.5-5.1 Lvl) [facility]2017-08-10 09:58:00 Test Item Value Reference Range Interpretation Comments Chloride Lvl (test code = Chloride Lvl) 105 95-109 [facility]2017-08-10 09:58:00 Test Item Value Reference Range Interpretation Comments CO2 (test code = CO2) 22 24-32 [facility]2017-08-10 09:58:00 Test Item Value Reference Range Interpretation Comments Creatinine Lvl (test code = Creatinine 1.29 0.50-1.40 Lvl) [facility]2017-08-10 09:58:00 Test Item Value Reference Range Interpretation Comments eGFR (test code = eGFR) 63 [facility]2017-08-10 09:58:00 Test Item Value Reference Range Interpretation Comments AGAP (test code = AGAP) 14.9 10.0-20.0 [facility]2017-08-10 09:58:00 Test Item Value Reference Range Interpretation Comments Sodium Lvl (test code = Sodium Lvl) 138 135-145 [facility]2017-08-10 09:58:00 Test Item Value Reference Range Interpretation Comments Calcium Lvl (test code = Calcium Lvl) 8.4 8.5-10.5 [facility]2017-08-10 09:58:00 Test Item Value Reference Range Interpretation Comments Glucose Lvl (test code = Glucose Lvl) 101 70-99 [facility]2017-08-10 09:58:00 Test Item Value Reference Range Interpretation Comments BUN (test code = BUN) 15 7-22 [facility]2017-08-10 09:58:00 Test Item Value Reference Range Interpretation Comments Potassium Lvl (test code = Potassium 3.9 3.5-5.1 Lvl) [facility]2017-08-10 09:58:00 Test Item Value Reference Range Interpretation Comments Chloride Lvl (test code = Chloride Lvl) 105 95-109 [facility]2017-08-10 09:58:00 Test Item Value Reference Range Interpretation Comments CO2 (test code = CO2) 22 24-32 [facility]2017-08-10 09:58:00 Test Item Value Reference Range Interpretation Comments Creatinine Lvl (test code = Creatinine 1.29 0.50-1.40 Lvl) [facility]2017-08-10 09:58:00 Test Item Value Reference Range Interpretation Comments eGFR (test code = eGFR) 63 [facility]2017-08-10 09:58:00 Test Item Value Reference Range Interpretation Comments AGAP (test code = AGAP) 14.9 10.0-20.0 [facility]2017-08-10 09:58:00 Test Item Value Reference Range Interpretation Comments Sodium Lvl (test code = Sodium Lvl) 138 135-145 [facility]2017-08-10 09:58:00 Test Item Value Reference Range Interpretation Comments Calcium Lvl (test code = Calcium Lvl) 8.4 8.5-10.5 [facility]2017-08-10 09:58:00 Test Item Value Reference Range Interpretation Comments Glucose Lvl (test code = Glucose Lvl) 101 70-99 [facility]2017-08-10 09:58:00 Test Item Value Reference Range Interpretation Comments BUN (test code = BUN) 15 7-22 [facility]2017-08-10 09:58:00 Test Item Value Reference Range Interpretation Comments Potassium Lvl (test code = Potassium 3.9 3.5-5.1 Lvl) [facility]2017-08-10 09:58:00 Test Item Value Reference Range Interpretation Comments Chloride Lvl (test code = Chloride Lvl) 105 95-109 [facility]2017-08-10 09:58:00 Test Item Value Reference Range Interpretation Comments CO2 (test code = CO2) 22 24-32 [facility]2017-08-10 09:58:00 Test Item Value Reference Range Interpretation Comments Creatinine Lvl (test code = Creatinine 1.29 0.50-1.40 Lvl) [facility]2017-08-10 09:58:00 Test Item Value Reference Range Interpretation Comments eGFR (test code = eGFR) 63 [facility]2017-08-10 09:58:00 Test Item Value Reference Range Interpretation Comments AGAP (test code = AGAP) 14.9 10.0-20.0 [facility]2017-08-10 09:58:00 Test Item Value Reference Range Interpretation Comments Sodium Lvl (test code = Sodium Lvl) 138 135-145 [facility]2017-08-10 09:58:00 Test Item Value Reference Range Interpretation Comments Calcium Lvl (test code = Calcium Lvl) 8.4 8.5-10.5 [facility]2017-08-10 09:58:00 Test Item Value Reference Range Interpretation Comments Glucose Lvl (test code = Glucose Lvl) 101 70-99 [facility]2017-08-10 09:58:00 Test Item Value Reference Range Interpretation Comments BUN (test code = BUN) 15 - [facility]2017-08-10 09:58:00 Test Item Value Reference Range Interpretation Comments Potassium Lvl (test code = Potassium 3.9 3.5-5.1 Lvl) [facility]2017-08-10 09:58:00 Test Item Value Reference Range Interpretation Comments Chloride Lvl (test code = Chloride Lvl) 105 95-109 [facility]2017-08-10 09:58:00 Test Item Value Reference Range Interpretation Comments CO2 (test code = CO2) 22 24-32 [facility]2017-08-10 09:58:00 Test Item Value Reference Range Interpretation Comments Creatinine Lvl (test code = Creatinine 1.29 0.50-1.40 Lvl) [facility]2017-08-10 09:58:00 Test Item Value Reference Range Interpretation Comments eGFR (test code = eGFR) 63 [facility]2017-08-10 09:58:00 Test Item Value Reference Range Interpretation Comments AGAP (test code = AGAP) 14.9 10.0-20.0 [facility]2017-08-10 09:58:00 Test Item Value Reference Range Interpretation Comments Sodium Lvl (test code = Sodium Lvl) 138 135-145 [facility]2017-08-10 09:58:00 Test Item Value Reference Range Interpretation Comments Calcium Lvl (test code = Calcium Lvl) 8.4 8.5-10.5 [facility]2017-08-10 09:58:00 Test Item Value Reference Range Interpretation Comments Glucose Lvl (test code = Glucose Lvl) 101 70-99 [facility]2017-08-10 09:58:00 Test Item Value Reference Range Interpretation Comments BUN (test code = BUN) 15 - [facility]2017-08-10 09:58:00 Test Item Value Reference Range Interpretation Comments Potassium Lvl (test code = Potassium 3.9 3.5-5.1 Lvl) [facility]2017-08-10 09:58:00 Test Item Value Reference Range Interpretation Comments Chloride Lvl (test code = Chloride Lvl) 105 95-109 [facility]2017-08-10 09:58:00 Test Item Value Reference Range Interpretation Comments CO2 (test code = CO2) 22 24-32 [facility]2017-08-10 09:58:00 Test Item Value Reference Range Interpretation Comments Creatinine Lvl (test code = Creatinine 1.29 0.50-1.40 Lvl) [facility]2017-08-10 09:58:00 Test Item Value Reference Range Interpretation Comments eGFR (test code = eGFR) 63 [facility]2017-08-10 09:58:00 Test Item Value Reference Range Interpretation Comments AGAP (test code = AGAP) 14.9 10.0-20.0 [facility]2017-08-10 09:58:00 Test Item Value Reference Range Interpretation Comments Sodium Lvl (test code = Sodium Lvl) 138 135-145 [facility]2017-08-10 09:58:00 Test Item Value Reference Range Interpretation Comments Calcium Lvl (test code = Calcium Lvl) 8.4 8.5-10.5 [facility]2017-08-10 09:58:00 Test Item Value Reference Range Interpretation Comments Glucose Lvl (test code = Glucose Lvl) 101 70-99 [facility]2017-08-10 09:58:00 Test Item Value Reference Range Interpretation Comments BUN (test code = BUN) 15 7-22 [facility]2017-08-10 09:58:00 Test Item Value Reference Range Interpretation Comments Potassium Lvl (test code = Potassium 3.9 3.5-5.1 Lvl) [facility]2017-08-10 09:58:00 Test Item Value Reference Range Interpretation Comments Chloride Lvl (test code = Chloride Lvl) 105 95-109 [facility]2017-08-10 09:58:00 Test Item Value Reference Range Interpretation Comments CO2 (test code = CO2) 22 24-32 [facility]2017-08-10 09:58:00 Test Item Value Reference Range Interpretation Comments Creatinine Lvl (test code = Creatinine 1.29 0.50-1.40 Lvl) [facility]2017-08-10 09:58:00 Test Item Value Reference Range Interpretation Comments eGFR (test code = eGFR) 63 [facility]2017-08-10 09:58:00 Test Item Value Reference Range Interpretation Comments AGAP (test code = AGAP) 14.9 10.0-20.0 [facility]2017-08-10 09:58:00 Test Item Value Reference Range Interpretation Comments Sodium Lvl (test code = Sodium Lvl) 138 135-145 [facility]2017-08-10 09:58:00 Test Item Value Reference Range Interpretation Comments Calcium Lvl (test code = Calcium Lvl) 8.4 8.5-10.5 [facility]2017-08-10 09:58:00 Test Item Value Reference Range Interpretation Comments Glucose Lvl (test code = Glucose Lvl) 101 70-99 [facility]2017-08-10 09:58:00 Test Item Value Reference Range Interpretation Comments BUN (test code = BUN) 15 7-22 [facility]2017-08-10 09:58:00 Test Item Value Reference Range Interpretation Comments Potassium Lvl (test code = Potassium 3.9 3.5-5.1 Lvl) [facility]2017-08-10 09:58:00 Test Item Value Reference Range Interpretation Comments Chloride Lvl (test code = Chloride Lvl) 105 95-109 [facility]2017-08-10 09:58:00 Test Item Value Reference Range Interpretation Comments CO2 (test code = CO2) 22 24-32 [facility]2017-08-10 09:58:00 Test Item Value Reference Range Interpretation Comments Creatinine Lvl (test code = Creatinine 1.29 0.50-1.40 Lvl) [facility]2017-08-10 09:58:00 Test Item Value Reference Range Interpretation Comments eGFR (test code = eGFR) 63 [facility]2017-08-10 09:58:00 Test Item Value Reference Range Interpretation Comments AGAP (test code = AGAP) 14.9 10.0-20.0 [facility]2017-08-10 09:58:00 Test Item Value Reference Range Interpretation Comments Sodium Lvl (test code = Sodium Lvl) 138 135-145 [facility]2017-08-10 09:58:00 Test Item Value Reference Range Interpretation Comments Calcium Lvl (test code = Calcium Lvl) 8.4 8.5-10.5 [facility]2017-08-10 09:58:00 Test Item Value Reference Range Interpretation Comments Glucose Lvl (test code = Glucose Lvl) 101 70-99 [facility]2017-08-10 09:58:00 Test Item Value Reference Range Interpretation Comments BUN (test code = BUN) 15 7-22 [facility]2017-08-10 09:58:00 Test Item Value Reference Range Interpretation Comments Potassium Lvl (test code = Potassium 3.9 3.5-5.1 Lvl) [facility]2017-08-10 09:58:00 Test Item Value Reference Range Interpretation Comments Chloride Lvl (test code = Chloride Lvl) 105 95-109 [facility]2017-08-10 09:58:00 Test Item Value Reference Range Interpretation Comments CO2 (test code = CO2) 22 24-32 [facility]2017-08-10 09:58:00 Test Item Value Reference Range Interpretation Comments Creatinine Lvl (test code = Creatinine 1.29 0.50-1.40 Lvl) [facility]2017-08-10 09:58:00 Test Item Value Reference Range Interpretation Comments eGFR (test code = eGFR) 63 [facility]2017-08-10 09:58:00 Test Item Value Reference Range Interpretation Comments AGAP (test code = AGAP) 14.9 10.0-20.0 [facility]2017-08-10 09:58:00 Test Item Value Reference Range Interpretation Comments Sodium Lvl (test code = Sodium Lvl) 138 135-145 [facility] [facility]:58:00 Test Item Value Reference Range Interpretation Comments Calcium Lvl (test code = Calcium Lvl) 8.4 8.5-10.5 [facility]2017-08-10 09:58:00 Test Item Value Reference Range Interpretation Comments Glucose Lvl (test code = Glucose Lvl) 101 70-99 [facility]2017-08-10 09:58:00 Test Item Value Reference Range Interpretation Comments Glucose Lvl (test code = Glucose Lvl) 101 70-99 [facility]2017-08-10 09:58:00 Test Item Value Reference Range Interpretation Comments BUN (test code = BUN) 15 - [facility]2017-08-10 09:58:00 Test Item Value Reference Range Interpretation Comments Potassium Lvl (test code = Potassium 3.9 3.5-5.1 Lvl) [facility]2017-08-10 09:58:00 Test Item Value Reference Range Interpretation Comments Chloride Lvl (test code = Chloride Lvl) 105 95-109 [facility]2017-08-10 09:58:00 Test Item Value Reference Range Interpretation Comments CO2 (test code = CO2) [facility]2017-08-10 09:58:00 Test Item Value Reference Range Interpretation Comments Creatinine Lvl (test code = Creatinine 1.29 0.50-1.40 Lvl) [facility]2017-08-10 09:58:00 Test Item Value Reference Range Interpretation Comments eGFR (test code = eGFR) 63 [facility]2017-08-10 09:58:00 Test Item Value Reference Range Interpretation Comments AGAP (test code = AGAP) 14.9 10.0-20.0 [facility]2017-08-10 09:58:00 Test Item Value Reference Range Interpretation Comments Sodium Lvl (test code = Sodium Lvl) 138 135-145 [facility]2017-08-10 09:58:00 Test Item Value Reference Range Interpretation Comments Calcium Lvl (test code = Calcium Lvl) 8.4 8.5-10.5 [facility]2017-08-10 09:58:00 Test Item Value Reference Range Interpretation Comments BUN (test code = BUN) 15 - [facility]2017-08-10 09:58:00 Test Item Value Reference Range Interpretation Comments Potassium Lvl (test code = Potassium 3.9 3.5-5.1 Lvl) [facility]2017-08-10 09:58:00 Test Item Value Reference Range Interpretation Comments Chloride Lvl (test code = Chloride Lvl) 105 95-109 [facility]2017-08-10 09:58:00 Test Item Value Reference Range Interpretation Comments CO2 (test code = CO2) -32 [facility]2017-08-10 09:58:00 Test Item Value Reference Range Interpretation Comments Creatinine Lvl (test code = Creatinine 1.29 0.50-1.40 Lvl) [facility]2017-08-10 09:58:00 Test Item Value Reference Range Interpretation Comments eGFR (test code = eGFR) 63 [facility]2017-08-10 09:58:00 Test Item Value Reference Range Interpretation Comments AGAP (test code = AGAP) 14.9 10.0-20.0 [facility]2017-08-10 09:58:00 Test Item Value Reference Range Interpretation Comments Sodium Lvl (test code = Sodium Lvl) 138 135-145 [facility]2017-08-10 09:58:00 Test Item Value Reference Range Interpretation Comments Calcium Lvl (test code = Calcium Lvl) 8.4 8.5-10.5 [facility]2017-08-10 09:58:00 Test Item Value Reference Range Interpretation Comments Glucose Lvl (test code = Glucose Lvl) 101 70-99 [facility]2017-08-10 09:58:00 Test Item Value Reference Range Interpretation Comments BUN (test code = BUN) 15 7-22 [facility]2017-08-10 09:58:00 Test Item Value Reference Range Interpretation Comments Potassium Lvl (test code = Potassium 3.9 3.5-5.1 Lvl) [facility]2017-08-10 09:58:00 Test Item Value Reference Range Interpretation Comments Chloride Lvl (test code = Chloride Lvl) 105 95-109 [facility]2017-08-10 09:58:00 Test Item Value Reference Range Interpretation Comments CO2 (test code = CO2) 22 24-32 [facility]2017-08-10 09:58:00 Test Item Value Reference Range Interpretation Comments Creatinine Lvl (test code = Creatinine 1.29 0.50-1.40 Lvl) [facility]2017-08-10 09:58:00 Test Item Value Reference Range Interpretation Comments eGFR (test code = eGFR) 63 [facility]2017-08-10 09:58:00 Test Item Value Reference Range Interpretation Comments AGAP (test code = AGAP) 14.9 10.0-20.0 [facility]2017-08-10 09:58:00 Test Item Value Reference Range Interpretation Comments Sodium Lvl (test code = Sodium Lvl) 138 135-145 [facility]2017-08-10 09:58:00 Test Item Value Reference Range Interpretation Comments Calcium Lvl (test code = Calcium Lvl) 8.4 8.5-10.5 [facility]2017-08-10 09:58:00 Test Item Value Reference Range Interpretation Comments Glucose Lvl (test code = Glucose Lvl) 101 70-99 [facility]2017-08-10 09:58:00 Test Item Value Reference Range Interpretation Comments BUN (test code = BUN) 15 7-22 [facility]2017-08-10 09:58:00 Test Item Value Reference Range Interpretation Comments Potassium Lvl (test code = Potassium 3.9 3.5-5.1 Lvl) [facility]2017-08-10 09:58:00 Test Item Value Reference Range Interpretation Comments Chloride Lvl (test code = Chloride Lvl) 105 95-109 [facility]2017-08-10 09:58:00 Test Item Value Reference Range Interpretation Comments CO2 (test code = CO2) 22 24-32 [facility]2017-08-10 09:58:00 Test Item Value Reference Range Interpretation Comments Creatinine Lvl (test code = Creatinine 1.29 0.50-1.40 Lvl) [facility]2017-08-10 09:58:00 Test Item Value Reference Range Interpretation Comments eGFR (test code = eGFR) 63 [facility]2017-08-10 09:58:00 Test Item Value Reference Range Interpretation Comments AGAP (test code = AGAP) 14.9 10.0-20.0 [facility]2017-08-10 09:58:00 Test Item Value Reference Range Interpretation Comments Sodium Lvl (test code = Sodium Lvl) 138 135-145 [facility]2017-08-10 09:58:00 Test Item Value Reference Range Interpretation Comments Calcium Lvl (test code = Calcium Lvl) 8.4 8.5-10.5 [facility]2017-08-10 09:58:00 Test Item Value Reference Range Interpretation Comments Glucose Lvl (test code = Glucose Lvl) 101 70-99 [facility]2017-08-10 09:58:00 Test Item Value Reference Range Interpretation Comments BUN (test code = BUN) 15 7- [facility]2017-08-10 09:58:00 Test Item Value Reference Range Interpretation Comments Potassium Lvl (test code = Potassium 3.9 3.5-5.1 Lvl) [facility]2017-08-10 09:58:00 Test Item Value Reference Range Interpretation Comments Chloride Lvl (test code = Chloride Lvl) 105 95-109 [facility]2017-08-10 09:58:00 Test Item Value Reference Range Interpretation Comments CO2 (test code = CO2) 22 24-32 [facility]2017-08-10 09:58:00 Test Item Value Reference Range Interpretation Comments Creatinine Lvl (test code = Creatinine 1.29 0.50-1.40 Lvl) [facility]2017-08-10 09:58:00 Test Item Value Reference Range Interpretation Comments eGFR (test code = eGFR) 63 [facility]2017-08-10 09:58:00 Test Item Value Reference Range Interpretation Comments AGAP (test code = AGAP) 14.9 10.0-20.0 [facility]2017-08-10 09:58:00 Test Item Value Reference Range Interpretation Comments Sodium Lvl (test code = Sodium Lvl) 138 135-145 [facility]2017-08-10 09:58:00 Test Item Value Reference Range Interpretation Comments Calcium Lvl (test code = Calcium Lvl) 8.4 8.5-10.5 [facility]2017-08-10 09:58:00 Test Item Value Reference Range Interpretation Comments Glucose Lvl (test code = Glucose Lvl) 101 70-99 [facility]2017-08-10 09:58:00 Test Item Value Reference Range Interpretation Comments BUN (test code = BUN) 15 7- [facility]2017-08-10 09:58:00 Test Item Value Reference Range Interpretation Comments Potassium Lvl (test code = Potassium 3.9 3.5-5.1 Lvl) [facility]2017-08-10 09:58:00 Test Item Value Reference Range Interpretation Comments Chloride Lvl (test code = Chloride Lvl) 105 95-109 [facility]2017-08-10 09:58:00 Test Item Value Reference Range Interpretation Comments CO2 (test code = CO2) 22 24-32 [facility]2017-08-10 09:58:00 Test Item Value Reference Range Interpretation Comments Creatinine Lvl (test code = Creatinine 1.29 0.50-1.40 Lvl) [facility]2017-08-10 09:58:00 Test Item Value Reference Range Interpretation Comments eGFR (test code = eGFR) 63 [facility]2017-08-10 09:58:00 Test Item Value Reference Range Interpretation Comments AGAP (test code = AGAP) 14.9 10.0-20.0 [facility]2017-08-10 09:58:00 Test Item Value Reference Range Interpretation Comments Sodium Lvl (test code = Sodium Lvl) 138 135-145 [facility]2017-08-10 09:58:00 Test Item Value Reference Range Interpretation Comments Calcium Lvl (test code = Calcium Lvl) 8.4 8.5-10.5 [facility]2017-08-10 09:58:00 Test Item Value Reference Range Interpretation Comments Glucose Lvl (test code = Glucose Lvl) 101 70-99 [facility]2017-08-10 09:58:00 Test Item Value Reference Range Interpretation Comments BUN (test code = BUN) 15 7-22 [facility]2017-08-10 09:58:00 Test Item Value Reference Range Interpretation Comments Potassium Lvl (test code = Potassium 3.9 3.5-5.1 Lvl) [facility]2017-08-10 09:58:00 Test Item Value Reference Range Interpretation Comments Chloride Lvl (test code = Chloride Lvl) 105 95-109 [facility]2017-08-10 09:58:00 Test Item Value Reference Range Interpretation Comments CO2 (test code = CO2) 22 24-32 [facility]2017-08-10 09:58:00 Test Item Value Reference Range Interpretation Comments Creatinine Lvl (test code = Creatinine 1.29 0.50-1.40 Lvl) [facility]2017-08-10 09:58:00 Test Item Value Reference Range Interpretation Comments eGFR (test code = eGFR) 63 [facility]2017-08-10 09:58:00 Test Item Value Reference Range Interpretation Comments AGAP (test code = AGAP) 14.9 10.0-20.0 [facility]2017-08-10 09:58:00 Test Item Value Reference Range Interpretation Comments Sodium Lvl (test code = Sodium Lvl) 138 135-145 [facility]2017-08-10 09:58:00 Test Item Value Reference Range Interpretation Comments Calcium Lvl (test code = Calcium Lvl) 8.4 8.5-10.5 [facility]2017-08-10 09:58:00 Test Item Value Reference Range Interpretation Comments Glucose Lvl (test code = Glucose Lvl) 101 70-99 [facility]2017-08-10 09:58:00 Test Item Value Reference Range Interpretation Comments BUN (test code = BUN) 15 7-22 [facility]2017-08-10 09:58:00 Test Item Value Reference Range Interpretation Comments Potassium Lvl (test code = Potassium 3.9 3.5-5.1 Lvl) [facility]2017-08-10 09:58:00 Test Item Value Reference Range Interpretation Comments Chloride Lvl (test code = Chloride Lvl) 105 95-109 [facility]2017-08-10 09:58:00 Test Item Value Reference Range Interpretation Comments CO2 (test code = CO2) 22 24-32 [facility]2017-08-10 09:58:00 Test Item Value Reference Range Interpretation Comments Creatinine Lvl (test code = Creatinine 1.29 0.50-1.40 Lvl) [facility]2017-08-10 09:58:00 Test Item Value Reference Range Interpretation Comments eGFR (test code = eGFR) 63 [facility]2017-08-10 09:58:00 Test Item Value Reference Range Interpretation Comments AGAP (test code = AGAP) 14.9 10.0-20.0 [facility]2017-08-10 09:58:00 Test Item Value Reference Range Interpretation Comments Sodium Lvl (test code = Sodium Lvl) 138 135-145 [facility]2017-08-10 09:58:00 Test Item Value Reference Range Interpretation Comments Calcium Lvl (test code = Calcium Lvl) 8.4 8.5-10.5 [facility]2017-08-10 09:58:00 Test Item Value Reference Range Interpretation Comments Glucose Lvl (test code = Glucose Lvl) 101 70-99 [facility]2017-08-10 09:58:00 Test Item Value Reference Range Interpretation Comments BUN (test code = BUN) 15 - [facility]2017-08-10 09:58:00 Test Item Value Reference Range Interpretation Comments Potassium Lvl (test code = Potassium 3.9 3.5-5.1 Lvl) [facility]2017-08-10 09:58:00 Test Item Value Reference Range Interpretation Comments Chloride Lvl (test code = Chloride Lvl) 105 95-109 [facility]2017-08-10 09:58:00 Test Item Value Reference Range Interpretation Comments CO2 (test code = CO2) 22 24-32 [facility]2017-08-10 09:58:00 Test Item Value Reference Range Interpretation Comments Creatinine Lvl (test code = Creatinine 1.29 0.50-1.40 Lvl) [facility]2017-08-10 09:58:00 Test Item Value Reference Range Interpretation Comments eGFR (test code = eGFR) 63 [facility]2017-08-10 09:58:00 Test Item Value Reference Range Interpretation Comments AGAP (test code = AGAP) 14.9 10.0-20.0 [facility]2017-08-10 09:58:00 Test Item Value Reference Range Interpretation Comments Sodium Lvl (test code = Sodium Lvl) 138 135-145 [facility]2017-08-10 09:58:00 Test Item Value Reference Range Interpretation Comments Calcium Lvl (test code = Calcium Lvl) 8.4 8.5-10.5 [facility]2017-08-10 09:58:00 Test Item Value Reference Range Interpretation Comments Glucose Lvl (test code = Glucose Lvl) 101 70-99 [facility]2017-08-10 09:58:00 Test Item Value Reference Range Interpretation Comments BUN (test code = BUN) 15 - [facility]2017-08-10 09:58:00 Test Item Value Reference Range Interpretation Comments Potassium Lvl (test code = Potassium 3.9 3.5-5.1 Lvl) [facility]2017-08-10 09:58:00 Test Item Value Reference Range Interpretation Comments Chloride Lvl (test code = Chloride Lvl) 105 95-109 [facility]2017-08-10 09:58:00 Test Item Value Reference Range Interpretation Comments CO2 (test code = CO2) 22 24-32 [facility]2017-08-10 09:58:00 Test Item Value Reference Range Interpretation Comments Creatinine Lvl (test code = Creatinine 1.29 0.50-1.40 Lvl) [facility]2017-08-10 09:58:00 Test Item Value Reference Range Interpretation Comments eGFR (test code = eGFR) 63 [facility]2017-08-10 09:58:00 Test Item Value Reference Range Interpretation Comments AGAP (test code = AGAP) 14.9 10.0-20.0 [facility]2017-08-10 09:58:00 Test Item Value Reference Range Interpretation Comments Sodium Lvl (test code = Sodium Lvl) 138 135-145 [facility]2017-08-10 09:58:00 Test Item Value Reference Range Interpretation Comments Calcium Lvl (test code = Calcium Lvl) 8.4 8.5-10.5 [facility]2017-08-10 09:58:00 Test Item Value Reference Range Interpretation Comments Glucose Lvl (test code = Glucose Lvl) 101 70-99 [facility]2017-08-10 09:58:00 Test Item Value Reference Range Interpretation Comments BUN (test code = BUN) 15 7-22 [facility]2017-08-10 09:58:00 Test Item Value Reference Range Interpretation Comments Potassium Lvl (test code = Potassium 3.9 3.5-5.1 Lvl) [facility]2017-08-10 09:58:00 Test Item Value Reference Range Interpretation Comments Chloride Lvl (test code = Chloride Lvl) 105 95-109 [facility]2017-08-10 09:58:00 Test Item Value Reference Range Interpretation Comments CO2 (test code = CO2) 22 24-32 [facility]2017-08-10 09:58:00 Test Item Value Reference Range Interpretation Comments Creatinine Lvl (test code = Creatinine 1.29 0.50-1.40 Lvl) [facility]2017-08-10 09:58:00 Test Item Value Reference Range Interpretation Comments eGFR (test code = eGFR) 63 [facility]2017-08-10 09:58:00 Test Item Value Reference Range Interpretation Comments AGAP (test code = AGAP) 14.9 10.0-20.0 [facility]2017-08-10 09:58:00 Test Item Value Reference Range Interpretation Comments Sodium Lvl (test code = Sodium Lvl) 138 135-145 [facility]2017-08-10 09:58:00 Test Item Value Reference Range Interpretation Comments Calcium Lvl (test code = Calcium Lvl) 8.4 8.5-10.5 [facility]2017-08-10 09:58:00 Test Item Value Reference Range Interpretation Comments Glucose Lvl (test code = Glucose Lvl) 101 70-99 [facility]2017-08-10 09:58:00 Test Item Value Reference Range Interpretation Comments BUN (test code = BUN) 15 7-22 [facility]2017-08-10 09:58:00 Test Item Value Reference Range Interpretation Comments Potassium Lvl (test code = Potassium 3.9 3.5-5.1 Lvl) [facility]2017-08-10 09:58:00 Test Item Value Reference Range Interpretation Comments Chloride Lvl (test code = Chloride Lvl) 105 95-109 [facility]2017-08-10 09:58:00 Test Item Value Reference Range Interpretation Comments CO2 (test code = CO2) 22 24-32 [facility]2017-08-10 09:58:00 Test Item Value Reference Range Interpretation Comments Creatinine Lvl (test code = Creatinine 1.29 0.50-1.40 Lvl) [facility]2017-08-10 09:58:00 Test Item Value Reference Range Interpretation Comments eGFR (test code = eGFR) 63 [facility]2017-08-10 09:58:00 Test Item Value Reference Range Interpretation Comments AGAP (test code = AGAP) 14.9 10.0-20.0 [facility]2017-08-10 09:58:00 Test Item Value Reference Range Interpretation Comments Sodium Lvl (test code = Sodium Lvl) 138 135-145 [facility]2017-08-10 09:58:00 Test Item Value Reference Range Interpretation Comments Calcium Lvl (test code = Calcium Lvl) 8.4 8.5-10.5 [facility]2017-08-10 09:58:00 Test Item Value Reference Range Interpretation Comments Glucose Lvl (test code = Glucose Lvl) 101 70-99 [facility]2017-08-10 09:58:00 Test Item Value Reference Range Interpretation Comments BUN (test code = BUN) 15 7-22 [facility]2017-08-10 09:58:00 Test Item Value Reference Range Interpretation Comments Potassium Lvl (test code = Potassium 3.9 3.5-5.1 Lvl) [facility]2017-08-10 09:58:00 Test Item Value Reference Range Interpretation Comments Chloride Lvl (test code = Chloride Lvl) 105 95-109 [facility]2017-08-10 09:58:00 Test Item Value Reference Range Interpretation Comments CO2 (test code = CO2) 22 24-32 [facility]2017-08-10 09:58:00 Test Item Value Reference Range Interpretation Comments Creatinine Lvl (test code = Creatinine 1.29 0.50-1.40 Lvl) [facility]2017-08-10 09:58:00 Test Item Value Reference Range Interpretation Comments eGFR (test code = eGFR) 63 [facility]2017-08-10 09:58:00 Test Item Value Reference Range Interpretation Comments AGAP (test code = AGAP) 14.9 10.0-20.0 [facility]2017-08-10 09:58:00 Test Item Value Reference Range Interpretation Comments Sodium Lvl (test code = Sodium Lvl) 138 135-145 [facility]2017-08-10 09:58:00 Test Item Value Reference Range Interpretation Comments Calcium Lvl (test code = Calcium Lvl) 8.4 8.5-10.5 [facility]2017-08-10 09:58:00 Test Item Value Reference Range Interpretation Comments Glucose Lvl (test code = Glucose Lvl) 101 70-99 [facility]2017-08-10 09:58:00 Test Item Value Reference Range Interpretation Comments BUN (test code = BUN) 15 7-22 [facility]2017-08-10 09:58:00 Test Item Value Reference Range Interpretation Comments Potassium Lvl (test code = Potassium 3.9 3.5-5.1 Lvl) [facility]2017-08-10 09:58:00 Test Item Value Reference Range Interpretation Comments Chloride Lvl (test code = Chloride Lvl) 105 95-109 [facility]2017-08-10 09:58:00 Test Item Value Reference Range Interpretation Comments CO2 (test code = CO2) 22 24-32 [facility]2017-08-10 09:58:00 Test Item Value Reference Range Interpretation Comments Creatinine Lvl (test code = Creatinine 1.29 0.50-1.40 Lvl) [facility]2017-08-10 09:58:00 Test Item Value Reference Range Interpretation Comments eGFR (test code = eGFR) 63 [facility]2017-08-10 09:58:00 Test Item Value Reference Range Interpretation Comments AGAP (test code = AGAP) 14.9 10.0-20.0 [facility]2017-08-10 09:58:00 Test Item Value Reference Range Interpretation Comments Sodium Lvl (test code = Sodium Lvl) 138 135-145 [facility]2017-08-10 09:58:00 Test Item Value Reference Range Interpretation Comments Calcium Lvl (test code = Calcium Lvl) 8.4 8.5-10.5 [facility]2017-08-10 09:58:00 Test Item Value Reference Range Interpretation Comments Glucose Lvl (test code = Glucose Lvl) 101 70-99 [facility]2017-08-10 09:58:00 Test Item Value Reference Range Interpretation Comments BUN (test code = BUN) 15 7-22 [facility]2017-08-10 09:58:00 Test Item Value Reference Range Interpretation Comments Potassium Lvl (test code = Potassium 3.9 3.5-5.1 Lvl) [facility]2017-08-10 09:58:00 Test Item Value Reference Range Interpretation Comments Chloride Lvl (test code = Chloride Lvl) 105 95-109 [facility]2017-08-10 09:58:00 Test Item Value Reference Range Interpretation Comments CO2 (test code = CO2) 22 24-32 [facility]2017-08-10 09:58:00 Test Item Value Reference Range Interpretation Comments Creatinine Lvl (test code = Creatinine 1.29 0.50-1.40 Lvl) [facility]2017-08-10 09:58:00 Test Item Value Reference Range Interpretation Comments eGFR (test code = eGFR) 63 [facility]2017-08-10 09:58:00 Test Item Value Reference Range Interpretation Comments AGAP (test code = AGAP) 14.9 10.0-20.0 [facility]2017-08-10 09:58:00 Test Item Value Reference Range Interpretation Comments Sodium Lvl (test code = Sodium Lvl) 138 135-145 [facility]2017-08-10 09:58:00 Test Item Value Reference Range Interpretation Comments Calcium Lvl (test code = Calcium Lvl) 8.4 8.5-10.5 [facility]2017-08-10 09:58:00 Test Item Value Reference Range Interpretation Comments Glucose Lvl (test code = Glucose Lvl) 101 70-99 [facility]2017-08-10 09:58:00 Test Item Value Reference Range Interpretation Comments BUN (test code = BUN) 15 7-22 [facility]2017-08-10 09:58:00 Test Item Value Reference Range Interpretation Comments Potassium Lvl (test code = Potassium 3.9 3.5-5.1 Lvl) [facility]2017-08-10 09:58:00 Test Item Value Reference Range Interpretation Comments Chloride Lvl (test code = Chloride Lvl) 105 95-109 [facility]2017-08-10 09:58:00 Test Item Value Reference Range Interpretation Comments CO2 (test code = CO2) 22 24-32 [facility]2017-08-10 09:58:00 Test Item Value Reference Range Interpretation Comments Creatinine Lvl (test code = Creatinine 1.29 0.50-1.40 Lvl) [facility]2017-08-10 09:58:00 Test Item Value Reference Range Interpretation Comments eGFR (test code = eGFR) 63 [facility]2017-08-10 09:58:00 Test Item Value Reference Range Interpretation Comments AGAP (test code = AGAP) 14.9 10.0-20.0 [facility]2017-08-10 09:58:00 Test Item Value Reference Range Interpretation Comments Sodium Lvl (test code = Sodium Lvl) 138 135-145 [facility]2017-08-10 09:58:00 Test Item Value Reference Range Interpretation Comments Calcium Lvl (test code = Calcium Lvl) 8.4 8.5-10.5 [facility]2017-08-10 09:58:00 Test Item Value Reference Range Interpretation Comments Glucose Lvl (test code = Glucose Lvl) 101 70-99 [facility]2017-08-10 09:58:00 Test Item Value Reference Range Interpretation Comments BUN (test code = BUN) 15 7-22 [facility]2017-08-10 09:58:00 Test Item Value Reference Range Interpretation Comments Potassium Lvl (test code = Potassium 3.9 3.5-5.1 Lvl) [facility]2017-08-10 09:58:00 Test Item Value Reference Range Interpretation Comments Chloride Lvl (test code = Chloride Lvl) 105 95-109 [facility]2017-08-10 09:58:00 Test Item Value Reference Range Interpretation Comments CO2 (test code = CO2) 22 24-32 [facility]2017-08-10 09:58:00 Test Item Value Reference Range Interpretation Comments Creatinine Lvl (test code = Creatinine 1.29 0.50-1.40 Lvl) [facility]2017-08-10 09:58:00 Test Item Value Reference Range Interpretation Comments eGFR (test code = eGFR) 63 [facility]2017-08-10 09:58:00 Test Item Value Reference Range Interpretation Comments AGAP (test code = AGAP) 14.9 10.0-20.0 [facility]2017-08-10 09:58:00 Test Item Value Reference Range Interpretation Comments Sodium Lvl (test code = Sodium Lvl) 138 135-145 [facility]2017-08-10 09:58:00 Test Item Value Reference Range Interpretation Comments Calcium Lvl (test code = Calcium Lvl) 8.4 8.5-10.5 [facility]2017-08-10 09:58:00 Test Item Value Reference Range Interpretation Comments Glucose Lvl (test code = Glucose Lvl) 101 70-99 [facility]2017-08-10 09:58:00 Test Item Value Reference Range Interpretation Comments BUN (test code = BUN) 15 - [facility]2017-08-10 09:58:00 Test Item Value Reference Range Interpretation Comments Potassium Lvl (test code = Potassium 3.9 3.5-5.1 Lvl) [facility]2017-08-10 09:58:00 Test Item Value Reference Range Interpretation Comments Chloride Lvl (test code = Chloride Lvl) 105 95-109 [facility]2017-08-10 09:58:00 Test Item Value Reference Range Interpretation Comments CO2 (test code = CO2) 24-32 [facility]2017-08-10 09:58:00 Test Item Value Reference Range Interpretation Comments Creatinine Lvl (test code = Creatinine 1.29 0.50-1.40 Lvl) [facility]2017-08-10 09:58:00 Test Item Value Reference Range Interpretation Comments eGFR (test code = eGFR) 63 [facility]2017-08-10 09:58:00 Test Item Value Reference Range Interpretation Comments AGAP (test code = AGAP) 14.9 10.0-20.0 [facility]2017-08-10 09:58:00 Test Item Value Reference Range Interpretation Comments Sodium Lvl (test code = Sodium Lvl) 138 135-145 [facility]2017-08-10 09:58:00 Test Item Value Reference Range Interpretation Comments Calcium Lvl (test code = Calcium Lvl) 8.4 8.5-10.5 [facility]2017-08-10 09:58:00 Test Item Value Reference Range Interpretation Comments Glucose Lvl (test code = Glucose Lvl) 101 70-99 [facility]2017-08-10 09:58:00 Test Item Value Reference Range Interpretation Comments BUN (test code = BUN) 15 - [facility]2017-08-10 09:58:00 Test Item Value Reference Range Interpretation Comments Potassium Lvl (test code = Potassium 3.9 3.5-5.1 Lvl) [facility]2017-08-10 09:58:00 Test Item Value Reference Range Interpretation Comments Chloride Lvl (test code = Chloride Lvl) 105 95-109 [facility]2017-08-10 09:58:00 Test Item Value Reference Range Interpretation Comments CO2 (test code = CO2) 22 24-32 [facility]2017-08-10 09:58:00 Test Item Value Reference Range Interpretation Comments Creatinine Lvl (test code = Creatinine 1.29 0.50-1.40 Lvl) [facility]2017-08-10 09:58:00 Test Item Value Reference Range Interpretation Comments eGFR (test code = eGFR) 63 [facility]2017-08-10 09:58:00 Test Item Value Reference Range Interpretation Comments AGAP (test code = AGAP) 14.9 10.0-20.0 [facility]2017-08-10 09:58:00 Test Item Value Reference Range Interpretation Comments Sodium Lvl (test code = Sodium Lvl) 138 135-145 [facility]2017-08-10 09:58:00 Test Item Value Reference Range Interpretation Comments Calcium Lvl (test code = Calcium Lvl) 8.4 8.5-10.5 [facility]2017-08-10 09:58:00 Test Item Value Reference Range Interpretation Comments Glucose Lvl (test code = Glucose Lvl) 101 70-99 [facility]2017-08-10 09:58:00 Test Item Value Reference Range Interpretation Comments BUN (test code = BUN) 15 7-22 [facility]2017-08-10 09:58:00 Test Item Value Reference Range Interpretation Comments Potassium Lvl (test code = Potassium 3.9 3.5-5.1 Lvl) [facility]2017-08-10 09:58:00 Test Item Value Reference Range Interpretation Comments Chloride Lvl (test code = Chloride Lvl) 105 95-109 [facility]2017-08-10 09:58:00 Test Item Value Reference Range Interpretation Comments CO2 (test code = CO2) 22 -32 [facility]2017-08-10 09:58:00 Test Item Value Reference Range Interpretation Comments Creatinine Lvl (test code = Creatinine 1.29 0.50-1.40 Lvl) [facility]2017-08-10 09:58:00 Test Item Value Reference Range Interpretation Comments eGFR (test code = eGFR) 63 [facility]2017-08-10 09:58:00 Test Item Value Reference Range Interpretation Comments AGAP (test code = AGAP) 14.9 10.0-20.0 [facility]2017-08-10 09:58:00 Test Item Value Reference Range Interpretation Comments Sodium Lvl (test code = Sodium Lvl) 138 135-145 [facility]2017-08-10 09:58:00 Test Item Value Reference Range Interpretation Comments Calcium Lvl (test code = Calcium Lvl) 8.4 8.5-10.5 [facility]2017-08-10 09:58:00 Test Item Value Reference Range Interpretation Comments Glucose Lvl (test code = Glucose Lvl) 101 70-99 [facility]2017-08-10 09:58:00 Test Item Value Reference Range Interpretation Comments BUN (test code = BUN) 15 7-22 [facility]2017-08-10 09:58:00 Test Item Value Reference Range Interpretation Comments Potassium Lvl (test code = Potassium 3.9 3.5-5.1 Lvl) [facility]2017-08-10 09:58:00 Test Item Value Reference Range Interpretation Comments Chloride Lvl (test code = Chloride Lvl) 105 95-109 [facility]2017-08-10 09:58:00 Test Item Value Reference Range Interpretation Comments CO2 (test code = CO2) 22 24-32 [facility]2017-08-10 09:58:00 Test Item Value Reference Range Interpretation Comments Creatinine Lvl (test code = Creatinine 1.29 0.50-1.40 Lvl) [facility]2017-08-10 09:58:00 Test Item Value Reference Range Interpretation Comments eGFR (test code = eGFR) 63 [facility]2017-08-10 09:58:00 Test Item Value Reference Range Interpretation Comments AGAP (test code = AGAP) 14.9 10.0-20.0 [facility]2017-08-10 09:58:00 Test Item Value Reference Range Interpretation Comments Sodium Lvl (test code = Sodium Lvl) 138 135-145 [facility]2017-08-10 09:58:00 Test Item Value Reference Range Interpretation Comments Calcium Lvl (test code = Calcium Lvl) 8.4 8.5-10.5 [facility]2017-08-10 09:58:00 Test Item Value Reference Range Interpretation Comments Glucose Lvl (test code = Glucose Lvl) 101 70-99 [facility]2017-08-10 09:58:00 Test Item Value Reference Range Interpretation Comments BUN (test code = BUN) 15 7-22 [facility]2017-08-10 09:58:00 Test Item Value Reference Range Interpretation Comments Potassium Lvl (test code = Potassium 3.9 3.5-5.1 Lvl) [facility]2017-08-10 09:58:00 Test Item Value Reference Range Interpretation Comments Chloride Lvl (test code = Chloride Lvl) 105 95-109 [facility]2017-08-10 09:58:00 Test Item Value Reference Range Interpretation Comments CO2 (test code = CO2) 22 24-32 [facility]2017-08-10 09:58:00 Test Item Value Reference Range Interpretation Comments Creatinine Lvl (test code = Creatinine 1.29 0.50-1.40 Lvl) [facility]2017-08-10 09:58:00 Test Item Value Reference Range Interpretation Comments eGFR (test code = eGFR) 63 [facility]2017-08-10 09:58:00 Test Item Value Reference Range Interpretation Comments AGAP (test code = AGAP) 14.9 10.0-20.0 [facility]2017-08-10 09:58:00 Test Item Value Reference Range Interpretation Comments Sodium Lvl (test code = Sodium Lvl) 138 135-145 [facility]2017-08-10 09:58:00 Test Item Value Reference Range Interpretation Comments Calcium Lvl (test code = Calcium Lvl) 8.4 8.5-10.5 [facility]2017-08-10 09:58:00 Test Item Value Reference Range Interpretation Comments Glucose Lvl (test code = Glucose Lvl) 101 70-99 [facility]2017-08-10 09:58:00 Test Item Value Reference Range Interpretation Comments BUN (test code = BUN) 15 7-22 [facility]2017-08-10 09:58:00 Test Item Value Reference Range Interpretation Comments Potassium Lvl (test code = Potassium 3.9 3.5-5.1 Lvl) [facility]2017-08-10 09:58:00 Test Item Value Reference Range Interpretation Comments Chloride Lvl (test code = Chloride Lvl) 105 95-109 [facility]2017-08-10 09:58:00 Test Item Value Reference Range Interpretation Comments CO2 (test code = CO2) 22 24-32 [facility]2017-08-10 09:58:00 Test Item Value Reference Range Interpretation Comments Creatinine Lvl (test code = Creatinine 1.29 0.50-1.40 Lvl) [facility]2017-08-10 09:58:00 Test Item Value Reference Range Interpretation Comments eGFR (test code = eGFR) 63 [facility]2017-08-10 09:58:00 Test Item Value Reference Range Interpretation Comments AGAP (test code = AGAP) 14.9 10.0-20.0 [facility]2017-08-10 09:58:00 Test Item Value Reference Range Interpretation Comments Sodium Lvl (test code = Sodium Lvl) 138 135-145 [facility]2017-08-10 09:58:00 Test Item Value Reference Range Interpretation Comments Calcium Lvl (test code = Calcium Lvl) 8.4 8.5-10.5 [facility]2017-08-10 09:58:00 Test Item Value Reference Range Interpretation Comments Glucose Lvl (test code = Glucose Lvl) 101 70-99 [facility]2017-08-10 09:58:00 Test Item Value Reference Range Interpretation Comments BUN (test code = BUN) 15 7-22 [facility]2017-08-10 09:58:00 Test Item Value Reference Range Interpretation Comments Potassium Lvl (test code = Potassium 3.9 3.5-5.1 Lvl) [facility]2017-08-10 09:58:00 Test Item Value Reference Range Interpretation Comments Chloride Lvl (test code = Chloride Lvl) 105 95-109 [facility]2017-08-10 09:58:00 Test Item Value Reference Range Interpretation Comments CO2 (test code = CO2) 22 24-32 [facility]2017-08-10 09:58:00 Test Item Value Reference Range Interpretation Comments Creatinine Lvl (test code = Creatinine 1.29 0.50-1.40 Lvl) [facility]2017-08-10 09:58:00 Test Item Value Reference Range Interpretation Comments eGFR (test code = eGFR) 63 [facility]2017-08-10 09:58:00 Test Item Value Reference Range Interpretation Comments eGFR (test code = eGFR) 63 [facility]2017-08-10 09:58:00 Test Item Value Reference Range Interpretation Comments AGAP (test code = AGAP) 14.9 10.0-20.0 [facility]2017-08-10 09:58:00 Test Item Value Reference Range Interpretation Comments AGAP (test code = AGAP) 14.9 10.0-20.0 [facility]2017-08-10 09:58:00 Test Item Value Reference Range Interpretation Comments Sodium Lvl (test code = Sodium Lvl) 138 135-145 [facility]2017-08-10 09:58:00 Test Item Value Reference Range Interpretation Comments Calcium Lvl (test code = Calcium Lvl) 8.4 8.5-10.5 [facility]2017-08-10 09:58:00 Test Item Value Reference Range Interpretation Comments Glucose Lvl (test code = Glucose Lvl) 101 70-99 [facility]2017-08-10 09:58:00 Test Item Value Reference Range Interpretation Comments BUN (test code = BUN) 15 7-22 [facility]2017-08-10 09:58:00 Test Item Value Reference Range Interpretation Comments Potassium Lvl (test code = Potassium 3.9 3.5-5.1 Lvl) [facility]2017-08-10 09:58:00 Test Item Value Reference Range Interpretation Comments Chloride Lvl (test code = Chloride Lvl) 105 95-109 [facility]2017-08-10 09:58:00 Test Item Value Reference Range Interpretation Comments CO2 (test code = CO2) 22 24-32 [facility]2017-08-10 09:58:00 Test Item Value Reference Range Interpretation Comments Creatinine Lvl (test code = Creatinine 1.29 0.50-1.40 Lvl) [facility]2017-08-10 09:58:00 Test Item Value Reference Range Interpretation Comments Sodium Lvl (test code = Sodium Lvl) 138 135-145 [facility]2017-08-09 19:57:00 Test Item Value Reference Range Interpretation Comments eGFR (test code = eGFR) 54 [facility]2017-08-09 19:57:00 Test Item Value Reference Range Interpretation Comments Sodium Lvl (test code = Sodium Lvl) 138 135-145 [facility]2017-08-09 19:57:00 Test Item Value Reference Range Interpretation Comments Creatinine Lvl (test code = Creatinine 1.48 0.50-1.40 Lvl) [facility]2017-08-09 19:57:00 Test Item Value Reference Range Interpretation Comments eGFR (test code = eGFR) 54 [facility]2017-08-09 19:57:00 Test Item Value Reference Range Interpretation Comments Sodium Lvl (test code = Sodium Lvl) 138 135-145 [facility]2017-08-09 19:57:00 Test Item Value Reference Range Interpretation Comments Creatinine Lvl (test code = Creatinine 1.48 0.50-1.40 Lvl) [facility]2017-08-09 19:57:00 Test Item Value Reference Range Interpretation Comments Glucose Lvl (test code = Glucose Lvl) 91 70-99 [facility]2017-08-09 19:57:00 Test Item Value Reference Range Interpretation Comments Glucose Lvl (test code = Glucose Lvl) 91 70-99 [facility]2017-08-09 19:57:00 Test Item Value Reference Range Interpretation Comments BUN (test code = BUN) 17 7-22 [facility]2017-08-09 19:57:00 Test Item Value Reference Range Interpretation Comments Potassium Lvl (test code = Potassium 4.1 3.5-5.1 Lvl) [facility]2017-08-09 19:57:00 Test Item Value Reference Range Interpretation Comments CO2 (test code = CO2) 27 24-32 [facility]2017-08-09 19:57:00 Test Item Value Reference Range Interpretation Comments Chloride Lvl (test code = Chloride Lvl) 102 95-109 [facility]2017-08-09 19:57:00 Test Item Value Reference Range Interpretation Comments Calcium Lvl (test code = Calcium Lvl) 8.5 8.5-10.5 [facility]2017-08-09 19:57:00 Test Item Value Reference Range Interpretation Comments AGAP (test code = AGAP) 13.1 10.0-20.0 [facility]2017-08-09 19:57:00 Test Item Value Reference Range Interpretation Comments BUN (test code = BUN) 17 7-22 [facility]2017-08-09 19:57:00 Test Item Value Reference Range Interpretation Comments Potassium Lvl (test code = Potassium 4.1 3.5-5.1 Lvl) [facility]2017-08-09 19:57:00 Test Item Value Reference Range Interpretation Comments CO2 (test code = CO2) 27 24-32 [facility]2017-08-09 19:57:00 Test Item Value Reference Range Interpretation Comments Chloride Lvl (test code = Chloride Lvl) 102 95-109 [facility]2017-08-09 19:57:00 Test Item Value Reference Range Interpretation Comments Calcium Lvl (test code = Calcium Lvl) 8.5 8.5-10.5 [facility]2017-08-09 19:57:00 Test Item Value Reference Range Interpretation Comments AGAP (test code = AGAP) 13.1 10.0-20.0 [facility]2017-08-09 19:57:00 Test Item Value Reference Range Interpretation Comments eGFR (test code = eGFR) 54 [facility]2017-08-09 19:57:00 Test Item Value Reference Range Interpretation Comments Sodium Lvl (test code = Sodium Lvl) 138 135-145 [facility]2017-08-09 19:57:00 Test Item Value Reference Range Interpretation Comments Creatinine Lvl (test code = Creatinine 1.48 0.50-1.40 Lvl) [facility]2017-08-09 19:57:00 Test Item Value Reference Range Interpretation Comments Glucose Lvl (test code = Glucose Lvl) 91 70-99 [facility]2017-08-09 19:57:00 Test Item Value Reference Range Interpretation Comments BUN (test code = BUN) 20 12- [facility]2017-08-09 19:57:00 Test Item Value Reference Range Interpretation Comments Potassium Lvl (test code = Potassium 4.1 3.5-5.1 Lvl) [facility]2017-08-09 19:57:00 Test Item Value Reference Range Interpretation Comments CO2 (test code = CO2) - [facility]2017-08-09 19:57:00 Test Item Value Reference Range Interpretation Comments Chloride Lvl (test code = Chloride Lvl) 102 95-109 [facility]2017-08-09 19:57:00 Test Item Value Reference Range Interpretation Comments Calcium Lvl (test code = Calcium Lvl) 8.5 8.5-10.5 [facility]2017-08-09 19:57:00 Test Item Value Reference Range Interpretation Comments AGAP (test code = AGAP) 13.1 10.0-20.0 [facility]2017-08-09 19:57:00 Test Item Value Reference Range Interpretation Comments eGFR (test code = eGFR) 54 [facility]2017-08-09 19:57:00 Test Item Value Reference Range Interpretation Comments Sodium Lvl (test code = Sodium Lvl) 138 135-145 [facility]2017-08-09 19:57:00 Test Item Value Reference Range Interpretation Comments Creatinine Lvl (test code = Creatinine 1.48 0.50-1.40 Lvl) [facility]2017-08-09 19:57:00 Test Item Value Reference Range Interpretation Comments Glucose Lvl (test code = Glucose Lvl) 91 70-99 [facility]2017-08-09 19:57:00 Test Item Value Reference Range Interpretation Comments BUN (test code = BUN) 12-25 [facility]2017-08-09 19:57:00 Test Item Value Reference Range Interpretation Comments Potassium Lvl (test code = Potassium 4.1 3.5-5.1 Lvl) [facility]2017-08-09 19:57:00 Test Item Value Reference Range Interpretation Comments CO2 (test code = CO2) - [facility]2017-08-09 19:57:00 Test Item Value Reference Range Interpretation Comments Chloride Lvl (test code = Chloride Lvl) 102 95-109 [facility]2017-08-09 19:57:00 Test Item Value Reference Range Interpretation Comments Calcium Lvl (test code = Calcium Lvl) 8.5 8.5-10.5 [facility]2017-08-09 19:57:00 Test Item Value Reference Range Interpretation Comments AGAP (test code = AGAP) 13.1 10.0-20.0 [facility]2017-08-09 19:57:00 Test Item Value Reference Range Interpretation Comments eGFR (test code = eGFR) 54 [facility]2017-08-09 19:57:00 Test Item Value Reference Range Interpretation Comments Sodium Lvl (test code = Sodium Lvl) 138 135-145 [facility]2017-08-09 19:57:00 Test Item Value Reference Range Interpretation Comments Creatinine Lvl (test code = Creatinine 1.48 0.50-1.40 Lvl) [facility]2017-08-09 19:57:00 Test Item Value Reference Range Interpretation Comments Glucose Lvl (test code = Glucose Lvl) 91 70-99 [facility]2017-08-09 19:57:00 Test Item Value Reference Range Interpretation Comments BUN (test code = BUN) 17 7-22 [facility]2017-08-09 19:57:00 Test Item Value Reference Range Interpretation Comments Potassium Lvl (test code = Potassium 4.1 3.5-5.1 Lvl) [facility]2017-08-09 19:57:00 Test Item Value Reference Range Interpretation Comments CO2 (test code = CO2) 27 24-32 [facility]2017-08-09 19:57:00 Test Item Value Reference Range Interpretation Comments Chloride Lvl (test code = Chloride Lvl) 102 95-109 [facility]2017-08-09 19:57:00 Test Item Value Reference Range Interpretation Comments Calcium Lvl (test code = Calcium Lvl) 8.5 8.5-10.5 [facility]2017-08-09 19:57:00 Test Item Value Reference Range Interpretation Comments AGAP (test code = AGAP) 13.1 10.0-20.0 [facility]2017-08-09 19:57:00 Test Item Value Reference Range Interpretation Comments eGFR (test code = eGFR) 54 [facility]2017-08-09 19:57:00 Test Item Value Reference Range Interpretation Comments Sodium Lvl (test code = Sodium Lvl) 138 135-145 [facility]2017-08-09 19:57:00 Test Item Value Reference Range Interpretation Comments Creatinine Lvl (test code = Creatinine 1.48 0.50-1.40 Lvl) [facility]2017-08-09 19:57:00 Test Item Value Reference Range Interpretation Comments Glucose Lvl (test code = Glucose Lvl) 91 70-99 [facility]2017-08-09 19:57:00 Test Item Value Reference Range Interpretation Comments BUN (test code = BUN) 17 7-22 [facility]2017-08-09 19:57:00 Test Item Value Reference Range Interpretation Comments Potassium Lvl (test code = Potassium 4.1 3.5-5.1 Lvl) [facility]2017-08-09 19:57:00 Test Item Value Reference Range Interpretation Comments CO2 (test code = CO2) 27 24-32 [facility]2017-08-09 19:57:00 Test Item Value Reference Range Interpretation Comments Chloride Lvl (test code = Chloride Lvl) 102 95-109 [facility]2017-08-09 19:57:00 Test Item Value Reference Range Interpretation Comments Calcium Lvl (test code = Calcium Lvl) 8.5 8.5-10.5 [facility]2017-08-09 19:57:00 Test Item Value Reference Range Interpretation Comments AGAP (test code = AGAP) 13.1 10.0-20.0 [facility]2017-08-09 19:57:00 Test Item Value Reference Range Interpretation Comments eGFR (test code = eGFR) 54 [facility]2017-08-09 19:57:00 Test Item Value Reference Range Interpretation Comments Sodium Lvl (test code = Sodium Lvl) 138 135-145 [facility]2017-08-09 19:57:00 Test Item Value Reference Range Interpretation Comments Creatinine Lvl (test code = Creatinine 1.48 0.50-1.40 Lvl) [facility]2017-08-09 19:57:00 Test Item Value Reference Range Interpretation Comments Glucose Lvl (test code = Glucose Lvl) 91 70-99 [facility]2017-08-09 19:57:00 Test Item Value Reference Range Interpretation Comments BUN (test code = BUN) 12-25 [facility]2017-08-09 19:57:00 Test Item Value Reference Range Interpretation Comments Potassium Lvl (test code = Potassium 4.1 3.5-5.1 Lvl) [facility]2017-08-09 19:57:00 Test Item Value Reference Range Interpretation Comments CO2 (test code = CO2) 27 24-32 [facility]2017-08-09 19:57:00 Test Item Value Reference Range Interpretation Comments Chloride Lvl (test code = Chloride Lvl) 102 95-109 [facility]2017-08-09 19:57:00 Test Item Value Reference Range Interpretation Comments Calcium Lvl (test code = Calcium Lvl) 8.5 8.5-10.5 [facility]2017-08-09 19:57:00 Test Item Value Reference Range Interpretation Comments AGAP (test code = AGAP) 13.1 10.0-20.0 [facility]2017-08-09 19:57:00 Test Item Value Reference Range Interpretation Comments eGFR (test code = eGFR) 54 [facility]2017-08-09 19:57:00 Test Item Value Reference Range Interpretation Comments Sodium Lvl (test code = Sodium Lvl) 138 135-145 [facility]2017-08-09 19:57:00 Test Item Value Reference Range Interpretation Comments Creatinine Lvl (test code = Creatinine 1.48 0.50-1.40 Lvl) [facility]2017-08-09 19:57:00 Test Item Value Reference Range Interpretation Comments Glucose Lvl (test code = Glucose Lvl) 91 70-99 [facility]2017-08-09 19:57:00 Test Item Value Reference Range Interpretation Comments BUN (test code = BUN) 17 12-25 [facility]2017-08-09 19:57:00 Test Item Value Reference Range Interpretation Comments Potassium Lvl (test code = Potassium 4.1 3.5-5.1 Lvl) [facility]2017-08-09 19:57:00 Test Item Value Reference Range Interpretation Comments CO2 (test code = CO2) 27 24-32 [facility]2017-08-09 19:57:00 Test Item Value Reference Range Interpretation Comments Chloride Lvl (test code = Chloride Lvl) 102 95-109 [facility]2017-08-09 19:57:00 Test Item Value Reference Range Interpretation Comments Calcium Lvl (test code = Calcium Lvl) 8.5 8.5-10.5 [facility]2017-08-09 19:57:00 Test Item Value Reference Range Interpretation Comments AGAP (test code = AGAP) 13.1 10.0-20.0 [facility]2017-08-09 19:57:00 Test Item Value Reference Range Interpretation Comments eGFR (test code = eGFR) 54 [facility]2017-08-09 19:57:00 Test Item Value Reference Range Interpretation Comments Sodium Lvl (test code = Sodium Lvl) 138 135-145 [facility]2017-08-09 19:57:00 Test Item Value Reference Range Interpretation Comments Creatinine Lvl (test code = Creatinine 1.48 0.50-1.40 Lvl) [facility]2017-08-09 19:57:00 Test Item Value Reference Range Interpretation Comments Glucose Lvl (test code = Glucose Lvl) 91 70-99 [facility]2017-08-09 19:57:00 Test Item Value Reference Range Interpretation Comments BUN (test code = BUN) 17 7-22 [facility]2017-08-09 19:57:00 Test Item Value Reference Range Interpretation Comments Potassium Lvl (test code = Potassium 4.1 3.5-5.1 Lvl) [facility]2017-08-09 19:57:00 Test Item Value Reference Range Interpretation Comments CO2 (test code = CO2) 27 24-32 [facility]2017-08-09 19:57:00 Test Item Value Reference Range Interpretation Comments Chloride Lvl (test code = Chloride Lvl) 102 95-109 [facility]2017-08-09 19:57:00 Test Item Value Reference Range Interpretation Comments Calcium Lvl (test code = Calcium Lvl) 8.5 8.5-10.5 [facility]2017-08-09 19:57:00 Test Item Value Reference Range Interpretation Comments AGAP (test code = AGAP) 13.1 10.0-20.0 [facility]2017-08-09 19:57:00 Test Item Value Reference Range Interpretation Comments eGFR (test code = eGFR) 54 [facility]2017-08-09 19:57:00 Test Item Value Reference Range Interpretation Comments Sodium Lvl (test code = Sodium Lvl) 138 135-145 [facility]2017-08-09 19:57:00 Test Item Value Reference Range Interpretation Comments Creatinine Lvl (test code = Creatinine 1.48 0.50-1.40 Lvl) [facility]2017-08-09 19:57:00 Test Item Value Reference Range Interpretation Comments Glucose Lvl (test code = Glucose Lvl) 91 70-99 [facility]2017-08-09 19:57:00 Test Item Value Reference Range Interpretation Comments BUN (test code = BUN) 17 7-22 [facility]2017-08-09 19:57:00 Test Item Value Reference Range Interpretation Comments Potassium Lvl (test code = Potassium 4.1 3.5-5.1 Lvl) [facility]2017-08-09 19:57:00 Test Item Value Reference Range Interpretation Comments CO2 (test code = CO2) 27 24-32 [facility]2017-08-09 19:57:00 Test Item Value Reference Range Interpretation Comments Chloride Lvl (test code = Chloride Lvl) 102 95-109 [facility]2017-08-09 19:57:00 Test Item Value Reference Range Interpretation Comments Calcium Lvl (test code = Calcium Lvl) 8.5 8.5-10.5 [facility]2017-08-09 19:57:00 Test Item Value Reference Range Interpretation Comments AGAP (test code = AGAP) 13.1 10.0-20.0 [facility]2017-08-09 19:57:00 Test Item Value Reference Range Interpretation Comments eGFR (test code = eGFR) 54 [facility]2017-08-09 19:57:00 Test Item Value Reference Range Interpretation Comments Sodium Lvl (test code = Sodium Lvl) 138 135-145 [facility]2017-08-09 19:57:00 Test Item Value Reference Range Interpretation Comments Creatinine Lvl (test code = Creatinine 1.48 0.50-1.40 Lvl) [facility]2017-08-09 19:57:00 Test Item Value Reference Range Interpretation Comments Glucose Lvl (test code = Glucose Lvl) 91 70-99 [facility]2017-08-09 19:57:00 Test Item Value Reference Range Interpretation Comments BUN (test code = BUN) 12-25 [facility]2017-08-09 19:57:00 Test Item Value Reference Range Interpretation Comments Potassium Lvl (test code = Potassium 4.1 3.5-5.1 Lvl) [facility]2017-08-09 19:57:00 Test Item Value Reference Range Interpretation Comments CO2 (test code = CO2) 27 -32 [facility]2017-08-09 19:57:00 Test Item Value Reference Range Interpretation Comments Chloride Lvl (test code = Chloride Lvl) 102 95-109 [facility]2017-08-09 19:57:00 Test Item Value Reference Range Interpretation Comments Calcium Lvl (test code = Calcium Lvl) 8.5 8.5-10.5 [facility]2017-08-09 19:57:00 Test Item Value Reference Range Interpretation Comments AGAP (test code = AGAP) 13.1 10.0-20.0 [facility]2017-08-09 19:57:00 Test Item Value Reference Range Interpretation Comments eGFR (test code = eGFR) 54 [facility]2017-08-09 19:57:00 Test Item Value Reference Range Interpretation Comments Sodium Lvl (test code = Sodium Lvl) 138 135-145 [facility]2017-08-09 19:57:00 Test Item Value Reference Range Interpretation Comments Creatinine Lvl (test code = Creatinine 1.48 0.50-1.40 Lvl) [facility]2017-08-09 19:57:00 Test Item Value Reference Range Interpretation Comments Glucose Lvl (test code = Glucose Lvl) 91 70-99 [facility]2017-08-09 19:57:00 Test Item Value Reference Range Interpretation Comments BUN (test code = BUN) 12-25 [facility]2017-08-09 19:57:00 Test Item Value Reference Range Interpretation Comments Potassium Lvl (test code = Potassium 4.1 3.5-5.1 Lvl) [facility]2017-08-09 19:57:00 Test Item Value Reference Range Interpretation Comments CO2 (test code = CO2) - [facility]2017-08-09 19:57:00 Test Item Value Reference Range Interpretation Comments Chloride Lvl (test code = Chloride Lvl) 102 95-109 [facility]2017-08-09 19:57:00 Test Item Value Reference Range Interpretation Comments Calcium Lvl (test code = Calcium Lvl) 8.5 8.5-10.5 [facility]2017-08-09 19:57:00 Test Item Value Reference Range Interpretation Comments AGAP (test code = AGAP) 13.1 10.0-20.0 [facility]2017-08-09 19:57:00 Test Item Value Reference Range Interpretation Comments eGFR (test code = eGFR) 54 [facility]2017-08-09 19:57:00 Test Item Value Reference Range Interpretation Comments Sodium Lvl (test code = Sodium Lvl) 138 135-145 [facility]2017-08-09 19:57:00 Test Item Value Reference Range Interpretation Comments Creatinine Lvl (test code = Creatinine 1.48 0.50-1.40 Lvl) [facility]2017-08-09 19:57:00 Test Item Value Reference Range Interpretation Comments Glucose Lvl (test code = Glucose Lvl) 91 70-99 [facility]2017-08-09 19:57:00 Test Item Value Reference Range Interpretation Comments BUN (test code = BUN) 17 - [facility]2017-08-09 19:57:00 Test Item Value Reference Range Interpretation Comments Potassium Lvl (test code = Potassium 4.1 3.5-5.1 Lvl) [facility]2017-08-09 19:57:00 Test Item Value Reference Range Interpretation Comments CO2 (test code = CO2) - [facility]2017-08-09 19:57:00 Test Item Value Reference Range Interpretation Comments Chloride Lvl (test code = Chloride Lvl) 102 95-109 [facility]2017-08-09 19:57:00 Test Item Value Reference Range Interpretation Comments Calcium Lvl (test code = Calcium Lvl) 8.5 8.5-10.5 [facility]2017-08-09 19:57:00 Test Item Value Reference Range Interpretation Comments AGAP (test code = AGAP) 13.1 10.0-20.0 [facility]2017-08-09 19:57:00 Test Item Value Reference Range Interpretation Comments eGFR (test code = eGFR) 54 [facility]2017-08-09 19:57:00 Test Item Value Reference Range Interpretation Comments Sodium Lvl (test code = Sodium Lvl) 138 135-145 [facility]2017-08-09 19:57:00 Test Item Value Reference Range Interpretation Comments Creatinine Lvl (test code = Creatinine 1.48 0.50-1.40 Lvl) [facility]2017-08-09 19:57:00 Test Item Value Reference Range Interpretation Comments Glucose Lvl (test code = Glucose Lvl) 91 70-99 [facility]2017-08-09 19:57:00 Test Item Value Reference Range Interpretation Comments eGFR (test code = eGFR) 54 [facility]2017-08-09 19:57:00 Test Item Value Reference Range Interpretation Comments Sodium Lvl (test code = Sodium Lvl) 138 135-145 [facility]2017-08-09 19:57:00 Test Item Value Reference Range Interpretation Comments Creatinine Lvl (test code = Creatinine 1.48 0.50-1.40 Lvl) [facility]2017-08-09 19:57:00 Test Item Value Reference Range Interpretation Comments Glucose Lvl (test code = Glucose Lvl) 91 70-99 [facility]2017-08-09 19:57:00 Test Item Value Reference Range Interpretation Comments BUN (test code = BUN) 12-25 [facility]2017-08-09 19:57:00 Test Item Value Reference Range Interpretation Comments BUN (test code = BUN) 12-25 [facility]2017-08-09 19:57:00 Test Item Value Reference Range Interpretation Comments Potassium Lvl (test code = Potassium 4.1 3.5-5.1 Lvl) [facility]2017-08-09 19:57:00 Test Item Value Reference Range Interpretation Comments CO2 (test code = CO2) -32 [facility]2017-08-09 19:57:00 Test Item Value Reference Range Interpretation Comments Chloride Lvl (test code = Chloride Lvl) 102 95-109 [facility]2017-08-09 19:57:00 Test Item Value Reference Range Interpretation Comments Calcium Lvl (test code = Calcium Lvl) 8.5 8.5-10.5 [facility]2017-08-09 19:57:00 Test Item Value Reference Range Interpretation Comments AGAP (test code = AGAP) 13.1 10.0-20.0 [facility]2017-08-09 19:57:00 Test Item Value Reference Range Interpretation Comments Potassium Lvl (test code = Potassium 4.1 3.5-5.1 Lvl) [facility]2017-08-09 19:57:00 Test Item Value Reference Range Interpretation Comments CO2 (test code = CO2) -32 [facility]2017-08-09 19:57:00 Test Item Value Reference Range Interpretation Comments Chloride Lvl (test code = Chloride Lvl) 102 95-109 [facility]2017-08-09 19:57:00 Test Item Value Reference Range Interpretation Comments Calcium Lvl (test code = Calcium Lvl) 8.5 8.5-10.5 [facility]2017-08-09 19:57:00 Test Item Value Reference Range Interpretation Comments AGAP (test code = AGAP) 13.1 10.0-20.0 [facility]2017-08-09 19:57:00 Test Item Value Reference Range Interpretation Comments eGFR (test code = eGFR) 54 [facility]2017-08-09 19:57:00 Test Item Value Reference Range Interpretation Comments Sodium Lvl (test code = Sodium Lvl) 138 135-145 [facility]2017-08-09 19:57:00 Test Item Value Reference Range Interpretation Comments Creatinine Lvl (test code = Creatinine 1.48 0.50-1.40 Lvl) [facility]2017-08-09 19:57:00 Test Item Value Reference Range Interpretation Comments Glucose Lvl (test code = Glucose Lvl) 91 70-99 [facility]2017-08-09 19:57:00 Test Item Value Reference Range Interpretation Comments BUN (test code = BUN) 20 12- [facility]2017-08-09 19:57:00 Test Item Value Reference Range Interpretation Comments Potassium Lvl (test code = Potassium 4.1 3.5-5.1 Lvl) [facility]2017-08-09 19:57:00 Test Item Value Reference Range Interpretation Comments CO2 (test code = CO2) -32 [facility]2017-08-09 19:57:00 Test Item Value Reference Range Interpretation Comments Chloride Lvl (test code = Chloride Lvl) 102 95-109 [facility]2017-08-09 19:57:00 Test Item Value Reference Range Interpretation Comments Calcium Lvl (test code = Calcium Lvl) 8.5 8.5-10.5 [facility]2017-08-09 19:57:00 Test Item Value Reference Range Interpretation Comments AGAP (test code = AGAP) 13.1 10.0-20.0 [facility]2017-08-09 19:57:00 Test Item Value Reference Range Interpretation Comments eGFR (test code = eGFR) 54 [facility]2017-08-09 19:57:00 Test Item Value Reference Range Interpretation Comments Sodium Lvl (test code = Sodium Lvl) 138 135-145 [facility]2017-08-09 19:57:00 Test Item Value Reference Range Interpretation Comments Creatinine Lvl (test code = Creatinine 1.48 0.50-1.40 Lvl) [facility]2017-08-09 19:57:00 Test Item Value Reference Range Interpretation Comments Glucose Lvl (test code = Glucose Lvl) 91 70-99 [facility]2017-08-09 19:57:00 Test Item Value Reference Range Interpretation Comments BUN (test code = BUN) 17 12-25 [facility]2017-08-09 19:57:00 Test Item Value Reference Range Interpretation Comments Potassium Lvl (test code = Potassium 4.1 3.5-5.1 Lvl) [facility]2017-08-09 19:57:00 Test Item Value Reference Range Interpretation Comments CO2 (test code = CO2) 27 24-32 [facility]2017-08-09 19:57:00 Test Item Value Reference Range Interpretation Comments Chloride Lvl (test code = Chloride Lvl) 102 95-109 [facility]2017-08-09 19:57:00 Test Item Value Reference Range Interpretation Comments Calcium Lvl (test code = Calcium Lvl) 8.5 8.5-10.5 [facility]2017-08-09 19:57:00 Test Item Value Reference Range Interpretation Comments AGAP (test code = AGAP) 13.1 10.0-20.0 [facility]2017-08-09 19:57:00 Test Item Value Reference Range Interpretation Comments eGFR (test code = eGFR) 54 [facility]2017-08-09 19:57:00 Test Item Value Reference Range Interpretation Comments Sodium Lvl (test code = Sodium Lvl) 138 135-145 [facility]2017-08-09 19:57:00 Test Item Value Reference Range Interpretation Comments Creatinine Lvl (test code = Creatinine 1.48 0.50-1.40 Lvl) [facility]2017-08-09 19:57:00 Test Item Value Reference Range Interpretation Comments Glucose Lvl (test code = Glucose Lvl) 91 70-99 [facility]2017-08-09 19:57:00 Test Item Value Reference Range Interpretation Comments BUN (test code = BUN) 17 7-22 [facility]2017-08-09 19:57:00 Test Item Value Reference Range Interpretation Comments Potassium Lvl (test code = Potassium 4.1 3.5-5.1 Lvl) [facility]2017-08-09 19:57:00 Test Item Value Reference Range Interpretation Comments CO2 (test code = CO2) -32 [facility]2017-08-09 19:57:00 Test Item Value Reference Range Interpretation Comments Chloride Lvl (test code = Chloride Lvl) 102 95-109 [facility]2017-08-09 19:57:00 Test Item Value Reference Range Interpretation Comments Calcium Lvl (test code = Calcium Lvl) 8.5 8.5-10.5 [facility]2017-08-09 19:57:00 Test Item Value Reference Range Interpretation Comments AGAP (test code = AGAP) 13.1 10.0-20.0 [facility]2017-08-09 19:57:00 Test Item Value Reference Range Interpretation Comments eGFR (test code = eGFR) 54 [facility]2017-08-09 19:57:00 Test Item Value Reference Range Interpretation Comments Sodium Lvl (test code = Sodium Lvl) 138 135-145 [facility]2017-08-09 19:57:00 Test Item Value Reference Range Interpretation Comments Creatinine Lvl (test code = Creatinine 1.48 0.50-1.40 Lvl) [facility]2017-08-09 19:57:00 Test Item Value Reference Range Interpretation Comments Glucose Lvl (test code = Glucose Lvl) 91 70-99 [facility]2017-08-09 19:57:00 Test Item Value Reference Range Interpretation Comments BUN (test code = BUN) 17 7-22 [facility]2017-08-09 19:57:00 Test Item Value Reference Range Interpretation Comments Potassium Lvl (test code = Potassium 4.1 3.5-5.1 Lvl) [facility]2017-08-09 19:57:00 Test Item Value Reference Range Interpretation Comments CO2 (test code = CO2) 27 24-32 [facility]2017-08-09 19:57:00 Test Item Value Reference Range Interpretation Comments Chloride Lvl (test code = Chloride Lvl) 102 95-109 [facility]2017-08-09 19:57:00 Test Item Value Reference Range Interpretation Comments Calcium Lvl (test code = Calcium Lvl) 8.5 8.5-10.5 [facility]2017-08-09 19:57:00 Test Item Value Reference Range Interpretation Comments AGAP (test code = AGAP) 13.1 10.0-20.0 [facility]2017-08-09 19:57:00 Test Item Value Reference Range Interpretation Comments eGFR (test code = eGFR) 54 [facility]2017-08-09 19:57:00 Test Item Value Reference Range Interpretation Comments Sodium Lvl (test code = Sodium Lvl) 138 135-145 [facility]2017-08-09 19:57:00 Test Item Value Reference Range Interpretation Comments Creatinine Lvl (test code = Creatinine 1.48 0.50-1.40 Lvl) [facility]2017-08-09 19:57:00 Test Item Value Reference Range Interpretation Comments Glucose Lvl (test code = Glucose Lvl) 91 70-99 [facility]2017-08-09 19:57:00 Test Item Value Reference Range Interpretation Comments BUN (test code = BUN) 12-25 [facility]2017-08-09 19:57:00 Test Item Value Reference Range Interpretation Comments Potassium Lvl (test code = Potassium 4.1 3.5-5.1 Lvl) [facility]2017-08-09 19:57:00 Test Item Value Reference Range Interpretation Comments CO2 (test code = CO2) 27 24-32 [facility]2017-08-09 19:57:00 Test Item Value Reference Range Interpretation Comments Chloride Lvl (test code = Chloride Lvl) 102 95-109 [facility]2017-08-09 19:57:00 Test Item Value Reference Range Interpretation Comments Calcium Lvl (test code = Calcium Lvl) 8.5 8.5-10.5 [facility]2017-08-09 19:57:00 Test Item Value Reference Range Interpretation Comments AGAP (test code = AGAP) 13.1 10.0-20.0 [facility]2017-08-09 19:57:00 Test Item Value Reference Range Interpretation Comments eGFR (test code = eGFR) 54 [facility]2017-08-09 19:57:00 Test Item Value Reference Range Interpretation Comments Sodium Lvl (test code = Sodium Lvl) 138 135-145 [facility]2017-08-09 19:57:00 Test Item Value Reference Range Interpretation Comments Creatinine Lvl (test code = Creatinine 1.48 0.50-1.40 Lvl) [facility]2017-08-09 19:57:00 Test Item Value Reference Range Interpretation Comments Glucose Lvl (test code = Glucose Lvl) 91 70-99 [facility]2017-08-09 19:57:00 Test Item Value Reference Range Interpretation Comments BUN (test code = BUN) 20 12- [facility]2017-08-09 19:57:00 Test Item Value Reference Range Interpretation Comments Potassium Lvl (test code = Potassium 4.1 3.5-5.1 Lvl) [facility]2017-08-09 19:57:00 Test Item Value Reference Range Interpretation Comments CO2 (test code = CO2) - [facility]2017-08-09 19:57:00 Test Item Value Reference Range Interpretation Comments Chloride Lvl (test code = Chloride Lvl) 102 95-109 [facility]2017-08-09 19:57:00 Test Item Value Reference Range Interpretation Comments Calcium Lvl (test code = Calcium Lvl) 8.5 8.5-10.5 [facility]2017-08-09 19:57:00 Test Item Value Reference Range Interpretation Comments AGAP (test code = AGAP) 13.1 10.0-20.0 [facility]2017-08-09 19:57:00 Test Item Value Reference Range Interpretation Comments eGFR (test code = eGFR) 54 [facility]2017-08-09 19:57:00 Test Item Value Reference Range Interpretation Comments Sodium Lvl (test code = Sodium Lvl) 138 135-145 [facility]2017-08-09 19:57:00 Test Item Value Reference Range Interpretation Comments Creatinine Lvl (test code = Creatinine 1.48 0.50-1.40 Lvl) [facility]2017-08-09 19:57:00 Test Item Value Reference Range Interpretation Comments Glucose Lvl (test code = Glucose Lvl) 91 70-99 [facility]2017-08-09 19:57:00 Test Item Value Reference Range Interpretation Comments BUN (test code = BUN) 17 7-22 [facility]2017-08-09 19:57:00 Test Item Value Reference Range Interpretation Comments Potassium Lvl (test code = Potassium 4.1 3.5-5.1 Lvl) [facility]2017-08-09 19:57:00 Test Item Value Reference Range Interpretation Comments CO2 (test code = CO2) - [facility]2017-08-09 19:57:00 Test Item Value Reference Range Interpretation Comments Chloride Lvl (test code = Chloride Lvl) 102 95-109 [facility]2017-08-09 19:57:00 Test Item Value Reference Range Interpretation Comments Calcium Lvl (test code = Calcium Lvl) 8.5 8.5-10.5 [facility]2017-08-09 19:57:00 Test Item Value Reference Range Interpretation Comments AGAP (test code = AGAP) 13.1 10.0-20.0 [facility]2017-08-09 19:57:00 Test Item Value Reference Range Interpretation Comments eGFR (test code = eGFR) 54 [facility]2017-08-09 19:57:00 Test Item Value Reference Range Interpretation Comments Sodium Lvl (test code = Sodium Lvl) 138 135-145 [facility]2017-08-09 19:57:00 Test Item Value Reference Range Interpretation Comments Creatinine Lvl (test code = Creatinine 1.48 0.50-1.40 Lvl) [facility]2017-08-09 19:57:00 Test Item Value Reference Range Interpretation Comments Glucose Lvl (test code = Glucose Lvl) 91 70-99 [facility]2017-08-09 19:57:00 Test Item Value Reference Range Interpretation Comments BUN (test code = BUN) 17 7-22 [facility]2017-08-09 19:57:00 Test Item Value Reference Range Interpretation Comments Potassium Lvl (test code = Potassium 4.1 3.5-5.1 Lvl) [facility]2017-08-09 19:57:00 Test Item Value Reference Range Interpretation Comments CO2 (test code = CO2) 27 24-32 [facility]2017-08-09 19:57:00 Test Item Value Reference Range Interpretation Comments Chloride Lvl (test code = Chloride Lvl) 102 95-109 [facility]2017-08-09 19:57:00 Test Item Value Reference Range Interpretation Comments Calcium Lvl (test code = Calcium Lvl) 8.5 8.5-10.5 [facility]2017-08-09 19:57:00 Test Item Value Reference Range Interpretation Comments AGAP (test code = AGAP) 13.1 10.0-20.0 [facility]2017-08-09 19:57:00 Test Item Value Reference Range Interpretation Comments eGFR (test code = eGFR) 54 [facility]2017-08-09 19:57:00 Test Item Value Reference Range Interpretation Comments Sodium Lvl (test code = Sodium Lvl) 138 135-145 [facility]2017-08-09 19:57:00 Test Item Value Reference Range Interpretation Comments Creatinine Lvl (test code = Creatinine 1.48 0.50-1.40 Lvl) [facility]2017-08-09 19:57:00 Test Item Value Reference Range Interpretation Comments Glucose Lvl (test code = Glucose Lvl) 91 70-99 [facility]2017-08-09 19:57:00 Test Item Value Reference Range Interpretation Comments BUN (test code = BUN) 17 7-22 [facility]2017-08-09 19:57:00 Test Item Value Reference Range Interpretation Comments Potassium Lvl (test code = Potassium 4.1 3.5-5.1 Lvl) [facility]2017-08-09 19:57:00 Test Item Value Reference Range Interpretation Comments CO2 (test code = CO2) 27 24-32 [facility]2017-08-09 19:57:00 Test Item Value Reference Range Interpretation Comments Chloride Lvl (test code = Chloride Lvl) 102 95-109 [facility]2017-08-09 19:57:00 Test Item Value Reference Range Interpretation Comments Calcium Lvl (test code = Calcium Lvl) 8.5 8.5-10.5 [facility]2017-08-09 19:57:00 Test Item Value Reference Range Interpretation Comments AGAP (test code = AGAP) 13.1 10.0-20.0 [facility]2017-08-09 19:57:00 Test Item Value Reference Range Interpretation Comments eGFR (test code = eGFR) 54 [facility]2017-08-09 19:57:00 Test Item Value Reference Range Interpretation Comments Sodium Lvl (test code = Sodium Lvl) 138 135-145 [facility]2017-08-09 19:57:00 Test Item Value Reference Range Interpretation Comments Creatinine Lvl (test code = Creatinine 1.48 0.50-1.40 Lvl) [facility]2017-08-09 19:57:00 Test Item Value Reference Range Interpretation Comments Glucose Lvl (test code = Glucose Lvl) 91 70-99 [facility]2017-08-09 19:57:00 Test Item Value Reference Range Interpretation Comments BUN (test code = BUN) 12-25 [facility]2017-08-09 19:57:00 Test Item Value Reference Range Interpretation Comments Potassium Lvl (test code = Potassium 4.1 3.5-5.1 Lvl) [facility]2017-08-09 19:57:00 Test Item Value Reference Range Interpretation Comments eGFR (test code = eGFR) 54 [facility]2017-08-09 19:57:00 Test Item Value Reference Range Interpretation Comments Sodium Lvl (test code = Sodium Lvl) 138 135-145 [facility]2017-08-09 19:57:00 Test Item Value Reference Range Interpretation Comments Creatinine Lvl (test code = Creatinine 1.48 0.50-1.40 Lvl) [facility]2017-08-09 19:57:00 Test Item Value Reference Range Interpretation Comments Glucose Lvl (test code = Glucose Lvl) 91 70-99 [facility]2017-08-09 19:57:00 Test Item Value Reference Range Interpretation Comments BUN (test code = BUN) 12-25 [facility]2017-08-09 19:57:00 Test Item Value Reference Range Interpretation Comments CO2 (test code = CO2) [facility]2017-08-09 19:57:00 Test Item Value Reference Range Interpretation Comments Potassium Lvl (test code = Potassium 4.1 3.5-5.1 Lvl) [facility]2017-08-09 19:57:00 Test Item Value Reference Range Interpretation Comments CO2 (test code = CO2) [facility]2017-08-09 19:57:00 Test Item Value Reference Range Interpretation Comments Chloride Lvl (test code = Chloride Lvl) 102 95-109 [facility]2017-08-09 19:57:00 Test Item Value Reference Range Interpretation Comments Calcium Lvl (test code = Calcium Lvl) 8.5 8.5-10.5 [facility]2017-08-09 19:57:00 Test Item Value Reference Range Interpretation Comments AGAP (test code = AGAP) 13.1 10.0-20.0 [facility]2017-08-09 19:57:00 Test Item Value Reference Range Interpretation Comments Chloride Lvl (test code = Chloride Lvl) 102 95-109 [facility]2017-08-09 19:57:00 Test Item Value Reference Range Interpretation Comments Calcium Lvl (test code = Calcium Lvl) 8.5 8.5-10.5 [facility]2017-08-09 19:57:00 Test Item Value Reference Range Interpretation Comments AGAP (test code = AGAP) 13.1 10.0-20.0 [facility]2017-08-09 19:57:00 Test Item Value Reference Range Interpretation Comments eGFR (test code = eGFR) 54 [facility]2017-08-09 19:57:00 Test Item Value Reference Range Interpretation Comments Sodium Lvl (test code = Sodium Lvl) 138 135-145 [facility]2017-08-09 19:57:00 Test Item Value Reference Range Interpretation Comments Creatinine Lvl (test code = Creatinine 1.48 0.50-1.40 Lvl) [facility]2017-08-09 19:57:00 Test Item Value Reference Range Interpretation Comments Glucose Lvl (test code = Glucose Lvl) 91 70-99 [facility]2017-08-09 19:57:00 Test Item Value Reference Range Interpretation Comments BUN (test code = BUN) 17 7-22 [facility]2017-08-09 19:57:00 Test Item Value Reference Range Interpretation Comments Potassium Lvl (test code = Potassium 4.1 3.5-5.1 Lvl) [facility]2017-08-09 19:57:00 Test Item Value Reference Range Interpretation Comments CO2 (test code = CO2) 27 24-32 [facility]2017-08-09 19:57:00 Test Item Value Reference Range Interpretation Comments Chloride Lvl (test code = Chloride Lvl) 102 95-109 [facility]2017-08-09 19:57:00 Test Item Value Reference Range Interpretation Comments Calcium Lvl (test code = Calcium Lvl) 8.5 8.5-10.5 [facility]2017-08-09 19:57:00 Test Item Value Reference Range Interpretation Comments AGAP (test code = AGAP) 13.1 10.0-20.0 [facility]2017-08-09 19:57:00 Test Item Value Reference Range Interpretation Comments eGFR (test code = eGFR) 54 [facility]2017-08-09 19:57:00 Test Item Value Reference Range Interpretation Comments Sodium Lvl (test code = Sodium Lvl) 138 135-145 [facility]2017-08-09 19:57:00 Test Item Value Reference Range Interpretation Comments Creatinine Lvl (test code = Creatinine 1.48 0.50-1.40 Lvl) [facility]2017-08-09 19:57:00 Test Item Value Reference Range Interpretation Comments Glucose Lvl (test code = Glucose Lvl) 91 70-99 [facility]2017-08-09 19:57:00 Test Item Value Reference Range Interpretation Comments BUN (test code = BUN) 17 7-22 [facility]2017-08-09 19:57:00 Test Item Value Reference Range Interpretation Comments Potassium Lvl (test code = Potassium 4.1 3.5-5.1 Lvl) [facility]2017-08-09 19:57:00 Test Item Value Reference Range Interpretation Comments CO2 (test code = CO2) 27 24-32 [facility]2017-08-09 19:57:00 Test Item Value Reference Range Interpretation Comments Chloride Lvl (test code = Chloride Lvl) 102 95-109 [facility]2017-08-09 19:57:00 Test Item Value Reference Range Interpretation Comments Calcium Lvl (test code = Calcium Lvl) 8.5 8.5-10.5 [facility]2017-08-09 19:57:00 Test Item Value Reference Range Interpretation Comments AGAP (test code = AGAP) 13.1 10.0-20.0 [facility]2017-08-09 19:57:00 Test Item Value Reference Range Interpretation Comments eGFR (test code = eGFR) 54 [facility]2017-08-09 19:57:00 Test Item Value Reference Range Interpretation Comments Sodium Lvl (test code = Sodium Lvl) 138 135-145 [facility]2017-08-09 19:57:00 Test Item Value Reference Range Interpretation Comments Creatinine Lvl (test code = Creatinine 1.48 0.50-1.40 Lvl) [facility]2017-08-09 19:57:00 Test Item Value Reference Range Interpretation Comments Glucose Lvl (test code = Glucose Lvl) 91 70-99 [facility]2017-08-09 19:57:00 Test Item Value Reference Range Interpretation Comments BUN (test code = BUN) 12-25 [facility]2017-08-09 19:57:00 Test Item Value Reference Range Interpretation Comments Potassium Lvl (test code = Potassium 4.1 3.5-5.1 Lvl) [facility]2017-08-09 19:57:00 Test Item Value Reference Range Interpretation Comments CO2 (test code = CO2) 27 24-32 [facility]2017-08-09 19:57:00 Test Item Value Reference Range Interpretation Comments Chloride Lvl (test code = Chloride Lvl) 102 95-109 [facility]2017-08-09 19:57:00 Test Item Value Reference Range Interpretation Comments Calcium Lvl (test code = Calcium Lvl) 8.5 8.5-10.5 [facility]2017-08-09 19:57:00 Test Item Value Reference Range Interpretation Comments AGAP (test code = AGAP) 13.1 10.0-20.0 [facility]2017-08-09 19:57:00 Test Item Value Reference Range Interpretation Comments eGFR (test code = eGFR) 54 [facility]2017-08-09 19:57:00 Test Item Value Reference Range Interpretation Comments Sodium Lvl (test code = Sodium Lvl) 138 135-145 [facility]2017-08-09 19:57:00 Test Item Value Reference Range Interpretation Comments Creatinine Lvl (test code = Creatinine 1.48 0.50-1.40 Lvl) [facility]2017-08-09 19:57:00 Test Item Value Reference Range Interpretation Comments Glucose Lvl (test code = Glucose Lvl) 91 70-99 [facility]2017-08-09 19:57:00 Test Item Value Reference Range Interpretation Comments BUN (test code = BUN) 17 12-25 [facility]2017-08-09 19:57:00 Test Item Value Reference Range Interpretation Comments Potassium Lvl (test code = Potassium 4.1 3.5-5.1 Lvl) [facility]2017-08-09 19:57:00 Test Item Value Reference Range Interpretation Comments CO2 (test code = CO2) 24-32 [facility]2017-08-09 19:57:00 Test Item Value Reference Range Interpretation Comments Chloride Lvl (test code = Chloride Lvl) 102 95-109 [facility]2017-08-09 19:57:00 Test Item Value Reference Range Interpretation Comments Calcium Lvl (test code = Calcium Lvl) 8.5 8.5-10.5 [facility]2017-08-09 19:57:00 Test Item Value Reference Range Interpretation Comments AGAP (test code = AGAP) 13.1 10.0-20.0 [facility]2017-08-09 19:57:00 Test Item Value Reference Range Interpretation Comments eGFR (test code = eGFR) 54 [facility]2017-08-09 19:57:00 Test Item Value Reference Range Interpretation Comments Sodium Lvl (test code = Sodium Lvl) 138 135-145 [facility]2017-08-09 19:57:00 Test Item Value Reference Range Interpretation Comments Creatinine Lvl (test code = Creatinine 1.48 0.50-1.40 Lvl) [facility]2017-08-09 19:57:00 Test Item Value Reference Range Interpretation Comments Glucose Lvl (test code = Glucose Lvl) 91 70-99 [facility]2017-08-09 19:57:00 Test Item Value Reference Range Interpretation Comments BUN (test code = BUN) 17 7-22 [facility]2017-08-09 19:57:00 Test Item Value Reference Range Interpretation Comments Potassium Lvl (test code = Potassium 4.1 3.5-5.1 Lvl) [facility]2017-08-09 19:57:00 Test Item Value Reference Range Interpretation Comments CO2 (test code = CO2) -32 [facility]2017-08-09 19:57:00 Test Item Value Reference Range Interpretation Comments Chloride Lvl (test code = Chloride Lvl) 102 95-109 [facility]2017-08-09 19:57:00 Test Item Value Reference Range Interpretation Comments Calcium Lvl (test code = Calcium Lvl) 8.5 8.5-10.5 [facility]2017-08-09 19:57:00 Test Item Value Reference Range Interpretation Comments AGAP (test code = AGAP) 13.1 10.0-20.0 [facility]2017-08-09 19:57:00 Test Item Value Reference Range Interpretation Comments eGFR (test code = eGFR) 54 [facility]2017-08-09 19:57:00 Test Item Value Reference Range Interpretation Comments Sodium Lvl (test code = Sodium Lvl) 138 135-145 [facility]2017-08-09 19:57:00 Test Item Value Reference Range Interpretation Comments Creatinine Lvl (test code = Creatinine 1.48 0.50-1.40 Lvl) [facility]2017-08-09 19:57:00 Test Item Value Reference Range Interpretation Comments Glucose Lvl (test code = Glucose Lvl) 91 70-99 [facility]2017-08-09 19:57:00 Test Item Value Reference Range Interpretation Comments BUN (test code = BUN) 17 7-22 [facility]2017-08-09 19:57:00 Test Item Value Reference Range Interpretation Comments Potassium Lvl (test code = Potassium 4.1 3.5-5.1 Lvl) [facility]2017-08-09 19:57:00 Test Item Value Reference Range Interpretation Comments CO2 (test code = CO2) 27 24-32 [facility]2017-08-09 19:57:00 Test Item Value Reference Range Interpretation Comments Chloride Lvl (test code = Chloride Lvl) 102 95-109 [facility]2017-08-09 19:57:00 Test Item Value Reference Range Interpretation Comments Calcium Lvl (test code = Calcium Lvl) 8.5 8.5-10.5 [facility]2017-08-09 19:57:00 Test Item Value Reference Range Interpretation Comments AGAP (test code = AGAP) 13.1 10.0-20.0 [facility]2017-08-09 19:57:00 Test Item Value Reference Range Interpretation Comments eGFR (test code = eGFR) 54 [facility]2017-08-09 19:57:00 Test Item Value Reference Range Interpretation Comments Sodium Lvl (test code = Sodium Lvl) 138 135-145 [facility]2017-08-09 19:57:00 Test Item Value Reference Range Interpretation Comments Creatinine Lvl (test code = Creatinine 1.48 0.50-1.40 Lvl) [facility]2017-08-09 19:57:00 Test Item Value Reference Range Interpretation Comments Glucose Lvl (test code = Glucose Lvl) 91 70-99 [facility]2017-08-09 19:57:00 Test Item Value Reference Range Interpretation Comments BUN (test code = BUN) 17 7-22 [facility]2017-08-09 19:57:00 Test Item Value Reference Range Interpretation Comments Potassium Lvl (test code = Potassium 4.1 3.5-5.1 Lvl) [facility]2017-08-09 19:57:00 Test Item Value Reference Range Interpretation Comments CO2 (test code = CO2) 27 24-32 [facility]2017-08-09 19:57:00 Test Item Value Reference Range Interpretation Comments Chloride Lvl (test code = Chloride Lvl) 102 95-109 [facility]2017-08-09 19:57:00 Test Item Value Reference Range Interpretation Comments Calcium Lvl (test code = Calcium Lvl) 8.5 8.5-10.5 [facility]2017-08-09 19:57:00 Test Item Value Reference Range Interpretation Comments AGAP (test code = AGAP) 13.1 10.0-20.0 [facility]2017-08-09 19:57:00 Test Item Value Reference Range Interpretation Comments eGFR (test code = eGFR) 54 [facility]2017-08-09 19:57:00 Test Item Value Reference Range Interpretation Comments Sodium Lvl (test code = Sodium Lvl) 138 135-145 [facility]2017-08-09 19:57:00 Test Item Value Reference Range Interpretation Comments Creatinine Lvl (test code = Creatinine 1.48 0.50-1.40 Lvl) [facility]2017-08-09 19:57:00 Test Item Value Reference Range Interpretation Comments Glucose Lvl (test code = Glucose Lvl) 91 70-99 [facility]2017-08-09 19:57:00 Test Item Value Reference Range Interpretation Comments BUN (test code = BUN) 17 - [facility]2017-08-09 19:57:00 Test Item Value Reference Range Interpretation Comments Potassium Lvl (test code = Potassium 4.1 3.5-5.1 Lvl) [facility]2017-08-09 19:57:00 Test Item Value Reference Range Interpretation Comments CO2 (test code = CO2) - [facility]2017-08-09 19:57:00 Test Item Value Reference Range Interpretation Comments Chloride Lvl (test code = Chloride Lvl) 102 95-109 [facility]2017-08-09 19:57:00 Test Item Value Reference Range Interpretation Comments Calcium Lvl (test code = Calcium Lvl) 8.5 8.5-10.5 [facility]2017-08-09 19:57:00 Test Item Value Reference Range Interpretation Comments AGAP (test code = AGAP) 13.1 10.0-20.0 [facility]2017-08-09 19:57:00 Test Item Value Reference Range Interpretation Comments eGFR (test code = eGFR) 54 [facility]2017-08-09 19:57:00 Test Item Value Reference Range Interpretation Comments Sodium Lvl (test code = Sodium Lvl) 138 135-145 [facility]2017-08-09 19:57:00 Test Item Value Reference Range Interpretation Comments Creatinine Lvl (test code = Creatinine 1.48 0.50-1.40 Lvl) [facility]2017-08-09 19:57:00 Test Item Value Reference Range Interpretation Comments Glucose Lvl (test code = Glucose Lvl) 91 70-99 [facility]2017-08-09 19:57:00 Test Item Value Reference Range Interpretation Comments BUN (test code = BUN) 12-25 [facility]2017-08-09 19:57:00 Test Item Value Reference Range Interpretation Comments Potassium Lvl (test code = Potassium 4.1 3.5-5.1 Lvl) [facility]2017-08-09 19:57:00 Test Item Value Reference Range Interpretation Comments CO2 (test code = CO2) - [facility]2017-08-09 19:57:00 Test Item Value Reference Range Interpretation Comments Chloride Lvl (test code = Chloride Lvl) 102 95-109 [facility]2017-08-09 19:57:00 Test Item Value Reference Range Interpretation Comments Calcium Lvl (test code = Calcium Lvl) 8.5 8.5-10.5 [facility]2017-08-09 19:57:00 Test Item Value Reference Range Interpretation Comments AGAP (test code = AGAP) 13.1 10.0-20.0 [facility]2017-08-09 19:57:00 Test Item Value Reference Range Interpretation Comments eGFR (test code = eGFR) 54 [facility]2017-08-09 19:57:00 Test Item Value Reference Range Interpretation Comments Sodium Lvl (test code = Sodium Lvl) 138 135-145 [facility]2017-08-09 19:57:00 Test Item Value Reference Range Interpretation Comments Creatinine Lvl (test code = Creatinine 1.48 0.50-1.40 Lvl) [facility]2017-08-09 19:57:00 Test Item Value Reference Range Interpretation Comments Glucose Lvl (test code = Glucose Lvl) 91 70-99 [facility]2017-08-09 19:57:00 Test Item Value Reference Range Interpretation Comments BUN (test code = BUN) 17 7-22 [facility]2017-08-09 19:57:00 Test Item Value Reference Range Interpretation Comments Potassium Lvl (test code = Potassium 4.1 3.5-5.1 Lvl) [facility]2017-08-09 19:57:00 Test Item Value Reference Range Interpretation Comments CO2 (test code = CO2) 27 24-32 [facility]2017-08-09 19:57:00 Test Item Value Reference Range Interpretation Comments Chloride Lvl (test code = Chloride Lvl) 102 95-109 [facility]2017-08-09 19:57:00 Test Item Value Reference Range Interpretation Comments Calcium Lvl (test code = Calcium Lvl) 8.5 8.5-10.5 [facility]2017-08-09 19:57:00 Test Item Value Reference Range Interpretation Comments AGAP (test code = AGAP) 13.1 10.0-20.0 [facility]2017-08-09 09:43:00 Test Item Value Reference Range Interpretation Comments eGFR (test code = eGFR) 53 [facility]2017-08-09 09:43:00 Test Item Value Reference Range Interpretation Comments Glucose Lvl (test code = Glucose Lvl) 116 70-99 [facility]2017-08-09 09:43:00 Test Item Value Reference Range Interpretation Comments BUN (test code = BUN) 18 7-22 [facility]2017-08-09 09:43:00 Test Item Value Reference Range Interpretation Comments Creatinine Lvl (test code = Creatinine 1.50 0.50-1.40 Lvl) [facility]2017-08-09 09:43:00 Test Item Value Reference Range Interpretation Comments Potassium Lvl (test code = Potassium 3.9 3.5-5.1 Lvl) [facility]2017-08-09 09:43:00 Test Item Value Reference Range Interpretation Comments Sodium Lvl (test code = Sodium Lvl) 137 135-145 [facility]2017-08-09 09:43:00 Test Item Value Reference Range Interpretation Comments Calcium Lvl (test code = Calcium Lvl) 7.9 8.5-10.5 [facility]2017-08-09 09:43:00 Test Item Value Reference Range Interpretation Comments CO2 (test code = CO2) 24 24-32 [facility]2017-08-09 09:43:00 Test Item Value Reference Range Interpretation Comments Chloride Lvl (test code = Chloride Lvl) 104 95-109 [facility]2017-08-09 09:43:00 Test Item Value Reference Range Interpretation Comments AGAP (test code = AGAP) 12.9 10.0-20.0 [facility]OESKBKDFV6867[facility] 09:43:00 Test Item Value Reference Range Interpretation Comments Basophils # (test code 0.1 See_Comment [Aut omated message] The = Basophils #) system which generated this result tra nsmitted reference range : <=0.2. The reference r mary was not used to int erpret this result as normal/abnormal . [facility] WorthNiofcyhSJPRCUHELY7866-60-08 09:43:00 Test Item Value Reference Range Interpretation Comments Monocytes # (test code 1.2 See_Comment [Aut omated message] The = Monocytes #) system which generated this result tra nsmitted reference range : <=0.8. The reference r mary was not used to int erpret this result as normal/abnormal . [facility] WorthIqjkhqeTVZNWUMMNR3817-44-56 09:43:00 Test Item Value Reference Range Interpretation Comments Eosinophils # (test code 0.2 See_Comment [A utomated message] The = Eosinophils #) system whic h generated this result tra nsmitted reference range : <=0.5. The reference r mary was not used to int erpret this result as normal/abnormal . [facility] WorthAebtizlUBYLJGDDOT9779-15-08 09:43:00 Test Item Value Reference Range Interpretation Comments Lymphocytes # (test code = Lymphocytes 2.5 1.0-5.5 #) [facility] WorthCserrrcRIKBXYLKTO0775-85-69 09:43:00 Test Item Value Reference Range Interpretation Comments Monocytes (test code = Monocytes) 8.7 2.0-12.0 [facility] WorthEspbnzmLHOXEXZHPC8199-94-80 09:43:00 Test Item Value Reference Range Interpretation Comments Eosinophils (test code = 1.6 See_Comment [A utomated message] The Eosinophils) system which ge nerated this result tra nsmitted reference range : <=4.0. The reference r mary was not used to int erpret this result as normal/abnormal . [facility] WorthZfeumqsDGEXPGFGOU8429-36-79 09:43:00 Test Item Value Reference Range Interpretation Comments Basophils (test code = 0.4 See_Comment [Aut omated message] The Basophils) system which ge nerated this result tra nsmitted reference range : <=1.0. The reference r mary was not used to int erpret this result as normal/abnormal . [facility] WorthPcijujvYDTTQCYRTF7883-16-32 09:43:00 Test Item Value Reference Range Interpretation Comments Segs-Bands # (test code = Segs-Bands #) 10.1 1.5-8.1 [facility] WorthKkpjbphDQDMJYGTSD4305-48-17 09:43:00 Test Item Value Reference Range Interpretation Comments Lymphocytes (test code = Lymphocytes) 17.7 20.0-40.0 [facility] WorthZhzmtthFVWUJJYGGN0431-93-22 09:43:00 Test Item Value Reference Range Interpretation Comments Segs (test code = Segs) 71.6 45.0-75.0 [facility] WorthYzmrozwAXMNUBGNSS4956-13-41 09:43:00 Test Item Value Reference Range Interpretation Comments MPV (test code = MPV) 8.4 7.4-10.4 [facility] WorthRpcrtnrZJUFHTUXDZ4958-49-88 09:43:00 Test Item Value Reference Range Interpretation Comments Platelet (test code = Platelet) 211 133-450 [facility] WorthBztlvixFQKVEYOGSA3571-12-13 09:43:00 Test Item Value Reference Range Interpretation Comments WBC (test code = WBC) 14.1 3.7-10.4 [facility] WorthIbilhzjISHIXLPUIP9026-73-01 09:43:00 Test Item Value Reference Range Interpretation Comments RBC (test code = RBC) 4.43 4.70-6.10 [facility] WorthSleafygUWGWSBYFQH0852-62-54 09:43:00 Test Item Value Reference Range Interpretation Comments Hgb (test code = Hgb) 13.3 14.0-18.0 [facility] WorthYikjssxEWBCNVOIXC9386-15-87 09:43:00 Test Item Value Reference Range Interpretation Comments MCV (test code = MCV) 90.8 80.0-94.0 [facility] WorthSustafoOAEOASAANI4226-07-66 09:43:00 Test Item Value Reference Range Interpretation Comments MCHC (test code = MCHC) 33.1 32.0-36.0 [facility] WorthLrxxwusOJWAXFMIWJ2445-07-73 09:43:00 Test Item Value Reference Range Interpretation Comments MCH (test code = MCH) 30.0 pg 27.0-31.0 [facility] WorthKgkqxvsTHTLTZZBCZ8878-72-38 09:43:00 Test Item Value Reference Range Interpretation Comments RDW (test code = RDW) 14.6 11.5-14.5 [facility] WorthUitrywtLZNVXHYSPI0270-31-97 09:43:00 Test Item Value Reference Range Interpretation Comments Hct (test code = Hct) 40.2 42.0-54.0 [facility]2017-08-09 09:43:00 Test Item Value Reference Range Interpretation Comments eGFR (test code = eGFR) 53 [facility]2017-08-09 09:43:00 Test Item Value Reference Range Interpretation Comments Glucose Lvl (test code = Glucose Lvl) 116 70-99 [facility]2017-08-09 09:43:00 Test Item Value Reference Range Interpretation Comments BUN (test code = BUN) 18 7-22 [place] 081607-08-09 09:43:00 Test Item Value Reference Range Interpretation Comments Creatinine Lvl (test code = Creatinine 1.50 0.50-1.40 Lvl) [facility]2017-08-09 09:43:00 Test Item Value Reference Range Interpretation Comments Potassium Lvl (test code = Potassium 3.9 3.5-5.1 Lvl) [facility]2017-08-09 09:43:00 Test Item Value Reference Range Interpretation Comments Sodium Lvl (test code = Sodium Lvl) 137 135-145 [facility]2017-08-09 09:43:00 Test Item Value Reference Range Interpretation Comments Calcium Lvl (test code = Calcium Lvl) 7.9 8.5-10.5 [facility]2017-08-09 09:43:00 Test Item Value Reference Range Interpretation Comments CO2 (test code = CO2) 24 24-32 [facility]2017-08-09 09:43:00 Test Item Value Reference Range Interpretation Comments eGFR (test code = eGFR) 53 [facility]2017-08-09 09:43:00 Test Item Value Reference Range Interpretation Comments Glucose Lvl (test code = Glucose Lvl) 116 70-99 [facility]2017-08-09 09:43:00 Test Item Value Reference Range Interpretation Comments BUN (test code = BUN) 18 12-25 [facility]2017-08-09 09:43:00 Test Item Value Reference Range Interpretation Comments Creatinine Lvl (test code = Creatinine 1.50 0.50-1.40 Lvl) [facility]2017-08-09 09:43:00 Test Item Value Reference Range Interpretation Comments Potassium Lvl (test code = Potassium 3.9 3.5-5.1 Lvl) [facility]2017-08-09 09:43:00 Test Item Value Reference Range Interpretation Comments Sodium Lvl (test code = Sodium Lvl) 137 135-145 [facility]2017-08-09 09:43:00 Test Item Value Reference Range Interpretation Comments Calcium Lvl (test code = Calcium Lvl) 7.9 8.5-10.5 [facility]2017-08-09 09:43:00 Test Item Value Reference Range Interpretation Comments CO2 (test code = CO2) 24 24-32 [facility]2017-08-09 09:43:00 Test Item Value Reference Range Interpretation Comments Chloride Lvl (test code = Chloride Lvl) 104 95-109 [facility]2017-08-09 09:43:00 Test Item Value Reference Range Interpretation Comments Chloride Lvl (test code = Chloride Lvl) 104 95-109 [facility]2017-08-09 09:43:00 Test Item Value Reference Range Interpretation Comments AGAP (test code = AGAP) 12.9 10.0-20.0 [facility] WorthGaepozoIPRLYOVOQX9100-24-40 09:43:00 Test Item Value Reference Range Interpretation Comments Basophils # (test code 0.1 See_Comment [Aut omated message] The = Basophils #) system which generated this result tra nsmitted reference range : <=0.2. The reference r mary was not used to int erpret this result as normal/abnormal . [facility] WorthEfmtxafIVQRYWEFZZ8427-79-93 09:43:00 Test Item Value Reference Range Interpretation Comments Monocytes # (test code 1.2 See_Comment [Aut omated message] The = Monocytes #) system which generated this result tra nsmitted reference range : <=0.8. The reference r mary was not used to int erpret this result as normal/abnormal . [facility] WorthMmjednyZYCLSDAFVT8308-45-76 09:43:00 Test Item Value Reference Range Interpretation Comments Eosinophils # (test code 0.2 See_Comment [A utomated message] The = Eosinophils #) system whic h generated this result tra nsmitted reference range : <=0.5. The reference r mary was not used to int erpret this result as normal/abnormal . [facility] WorthDobwflsIESBZQVAXY0323-31-49 09:43:00 Test Item Value Reference Range Interpretation Comments Lymphocytes # (test code = Lymphocytes 2.5 1.0-5.5 #) [facility] WorthTtqsbznOADDVHAMHG1489-11-46 09:43:00 Test Item Value Reference Range Interpretation Comments Monocytes (test code = Monocytes) 8.7 2.0-12.0 [facility] WorthAqveomfNACXRYKFRK9747-58-44 09:43:00 Test Item Value Reference Range Interpretation Comments Eosinophils (test code = 1.6 See_Comment [A utomated message] The Eosinophils) system which ge nerated this result tra nsmitted reference range : <=4.0. The reference r mary was not used to int erpret this result as normal/abnormal . [facility] WorthUsfncevPMSIIENFTH6172-13-51 09:43:00 Test Item Value Reference Range Interpretation Comments Basophils (test code = 0.4 See_Comment [Aut omated message] The Basophils) system which ge nerated this result tra nsmitted reference range : <=1.0. The reference r mary was not used to int erpret this result as normal/abnormal . [facility] WorthHkvggauQPHAKWCYDN9788-61-74 09:43:00 Test Item Value Reference Range Interpretation Comments Segs-Bands # (test code = Segs-Bands #) 10.1 1.5-8.1 [facility]2017-08-09 09:43:00 Test Item Value Reference Range Interpretation Comments AGAP (test code = AGAP) 12.9 10.0-20.0 [facility] WorthPspxexrBSBDIVXWTE5153-89-84 09:43:00 Test Item Value Reference Range Interpretation Comments Lymphocytes (test code = Lymphocytes) 17.7 20.0-40.0 [facility] WorthXnykeusWYZEHXYXLT0729-86-31 09:43:00 Test Item Value Reference Range Interpretation Comments Segs (test code = Segs) 71.6 45.0-75.0 [facility] WorthAzhtbipLMPQTVLABD7385-71-35 09:43:00 Test Item Value Reference Range Interpretation Comments MPV (test code = MPV) 8.4 7.4-10.4 [facility] WorthEwvwpdqGGGFKXCSKH7110-40-63 09:43:00 Test Item Value Reference Range Interpretation Comments Platelet (test code = Platelet) 211 133-450 [facility] WorthHlfmhepNGRXIVZOGA8495-09-72 09:43:00 Test Item Value Reference Range Interpretation Comments WBC (test code = WBC) 14.1 3.7-10.4 [facility] WorthVkpfmspBSXYPJCTOR1443-10-93 09:43:00 Test Item Value Reference Range Interpretation Comments RBC (test code = RBC) 4.43 4.70-6.10 [facility] WorthLzapltzBAGKHFATRW5047-20-49 09:43:00 Test Item Value Reference Range Interpretation Comments Hgb (test code = Hgb) 13.3 14.0-18.0 [facility] WorthTtovizyJPONIJEAEG7685-50-43 09:43:00 Test Item Value Reference Range Interpretation Comments MCV (test code = MCV) 90.8 80.0-94.0 [facility] WorthRbawgokDCAMAULEZC5549-34-86 09:43:00 Test Item Value Reference Range Interpretation Comments MCHC (test code = MCHC) 33.1 32.0-36.0 [facility] WorthTgmtyvbQNHKAOFAGR9516-42-45 09:43:00 Test Item Value Reference Range Interpretation Comments MCH (test code = MCH) 30.0 pg 27.0-31.0 [facility] WorthIiodewpGGDFZWFPPP6872-80-90 09:43:00 Test Item Value Reference Range Interpretation Comments Basophils # (test code 0.1 See_Comment [Aut omated message] The = Basophils #) system which generated this result tra nsmitted reference range : <=0.2. The reference r mary was not used to int erpret this result as normal/abnormal . [facility] WorthYftwiheQGTXGLYZFS4168-06-76 09:43:00 Test Item Value Reference Range Interpretation Comments RDW (test code = RDW) 14.6 11.5-14.5 [facility] WorthZnidaqwOXERJRFYMA2415-21-60 09:43:00 Test Item Value Reference Range Interpretation Comments Hct (test code = Hct) 40.2 42.0-54.0 [facility] WorthJnjtlebCVAFFLDCVQ7577-29-53 09:43:00 Test Item Value Reference Range Interpretation Comments Monocytes # (test code 1.2 See_Comment [Aut omated message] The = Monocytes #) system which generated this result tra nsmitted reference range : <=0.8. The reference r mary was not used to int erpret this result as normal/abnormal . [facility] WorthYhelbvrWZHVWMABUS7070-26-33 09:43:00 Test Item Value Reference Range Interpretation Comments Eosinophils # (test code 0.2 See_Comment [A utomated message] The = Eosinophils #) system whic h generated this result tra nsmitted reference range : <=0.5. The reference r mary was not used to int erpret this result as normal/abnormal . [facility] WorthUzhbdnnUGPJJMRNBJ4030-58-87 09:43:00 Test Item Value Reference Range Interpretation Comments Lymphocytes # (test code = Lymphocytes 2.5 1.0-5.5 #) [facility] WorthJrohfnnCDERAOPJNG0965-45-79 09:43:00 Test Item Value Reference Range Interpretation Comments Monocytes (test code = Monocytes) 8.7 2.0-12.0 [facility] WorthBuguufePCRIIICMLU9499-70-56 09:43:00 Test Item Value Reference Range Interpretation Comments Eosinophils (test code = 1.6 See_Comment [A utomated message] The Eosinophils) system which ge nerated this result tra nsmitted reference range : <=4.0. The reference r mary was not used to int erpret this result as normal/abnormal . [facility] WorthWundxrtDJYXIBXBKU2665-45-15 09:43:00 Test Item Value Reference Range Interpretation Comments Basophils (test code = 0.4 See_Comment [Aut omated message] The Basophils) system which ge nerated this result tra nsmitted reference range : <=1.0. The reference r mary was not used to int erpret this result as normal/abnormal . [facility] WorthKsongivEPPLVVTXSO6228-02-26 09:43:00 Test Item Value Reference Range Interpretation Comments Segs-Bands # (test code = Segs-Bands #) 10.1 1.5-8.1 [facility] WorthWlszsezWIPIODJHLC4247-52-73 09:43:00 Test Item Value Reference Range Interpretation Comments Lymphocytes (test code = Lymphocytes) 17.7 20.0-40.0 [facility] WorthMgmyfkwOGTZPWUWKI1886-85-91 09:43:00 Test Item Value Reference Range Interpretation Comments Segs (test code = Segs) 71.6 45.0-75.0 [facility] WorthIpkfvjbPFOGPHEYIN0677-92-99 09:43:00 Test Item Value Reference Range Interpretation Comments MPV (test code = MPV) 8.4 7.4-10.4 [facility]2017-08-09 09:43:00 Test Item Value Reference Range Interpretation Comments eGFR (test code = eGFR) 53 [facility]2017-08-09 09:43:00 Test Item Value Reference Range Interpretation Comments Glucose Lvl (test code = Glucose Lvl) 116 70-99 [facility]2017-08-09 09:43:00 Test Item Value Reference Range Interpretation Comments BUN (test code = BUN) 18 7-22 [facility] WorthBcbxgdmVLUWQHNYZP4480-54-62 09:43:00 Test Item Value Reference Range Interpretation Comments Platelet (test code = Platelet) 211 133-450 [facility]2017-08-09 09:43:00 Test Item Value Reference Range Interpretation Comments Creatinine Lvl (test code = Creatinine 1.50 0.50-1.40 Lvl) [facility]2017-08-09 09:43:00 Test Item Value Reference Range Interpretation Comments Potassium Lvl (test code = Potassium 3.9 3.5-5.1 Lvl) [facility]2017-08-09 09:43:00 Test Item Value Reference Range Interpretation Comments Sodium Lvl (test code = Sodium Lvl) 137 135-145 [facility]2017-08-09 09:43:00 Test Item Value Reference Range Interpretation Comments Calcium Lvl (test code = Calcium Lvl) 7.9 8.5-10.5 [facility]2017-08-09 09:43:00 Test Item Value Reference Range Interpretation Comments CO2 (test code = CO2) 24 24-32 [facility]2017-08-09 09:43:00 Test Item Value Reference Range Interpretation Comments Chloride Lvl (test code = Chloride Lvl) 104 95-109 [facility]2017-08-09 09:43:00 Test Item Value Reference Range Interpretation Comments AGAP (test code = AGAP) 12.9 10.0-20.0 [facility] WorthCspjjmeBTZHWLQUME5925-00-98 09:43:00 Test Item Value Reference Range Interpretation Comments Basophils # (test code 0.1 See_Comment [Aut omated message] The = Basophils #) system which generated this result tra nsmitted reference range : <=0.2. The reference r mary was not used to int erpret this result as normal/abnormal . [facility] WorthGbxngclKMNTMRCVMX6174-26-09 09:43:00 Test Item Value Reference Range Interpretation Comments Monocytes # (test code 1.2 See_Comment [Aut omated message] The = Monocytes #) system which generated this result tra nsmitted reference range : <=0.8. The reference r mary was not used to int erpret this result as normal/abnormal . [facility] WorthNwflunmIXMNJKFVID3111-50-36 09:43:00 Test Item Value Reference Range Interpretation Comments Eosinophils # (test code 0.2 See_Comment [A utomated message] The = Eosinophils #) system whic h generated this result tra nsmitted reference range : <=0.5. The reference r mary was not used to int erpret this result as normal/abnormal . [facility] WorthXrmxsemBFYXMPNBNJ0298-51-69 09:43:00 Test Item Value Reference Range Interpretation Comments WBC (test code = WBC) 14.1 3.7-10.4 [facility] WorthMgagsdfWKWQPRXLSC1874-47-62 09:43:00 Test Item Value Reference Range Interpretation Comments Lymphocytes # (test code = Lymphocytes 2.5 1.0-5.5 #) [facility] WorthMlcgfouVTVAQZUCXZ1541-92-54 09:43:00 Test Item Value Reference Range Interpretation Comments Monocytes (test code = Monocytes) 8.7 2.0-12.0 [facility] WorthLlomsdtWZGFWTYPQS8069-48-31 09:43:00 Test Item Value Reference Range Interpretation Comments Eosinophils (test code = 1.6 See_Comment [A utomated message] The Eosinophils) system which ge nerated this result tra nsmitted reference range : <=4.0. The reference r mary was not used to int erpret this result as normal/abnormal . [facility] WorthJfoalwuLOHIWJOAKM4199-15-47 09:43:00 Test Item Value Reference Range Interpretation Comments Basophils (test code = 0.4 See_Comment [Aut omated message] The Basophils) system which ge nerated this result tra nsmitted reference range : <=1.0. The reference r mary was not used to int erpret this result as normal/abnormal . [facility] WorthVqnmwhqNAGPROHARH0443-26-25 09:43:00 Test Item Value Reference Range Interpretation Comments Segs-Bands # (test code = Segs-Bands #) 10.1 1.5-8.1 [facility] WorthRtgkxshSPDCVFIJXV3922-08-05 09:43:00 Test Item Value Reference Range Interpretation Comments Lymphocytes (test code = Lymphocytes) 17.7 20.0-40.0 [facility] WorthGrqikodAMDFQRYHUA6068-64-15 09:43:00 Test Item Value Reference Range Interpretation Comments Segs (test code = Segs) 71.6 45.0-75.0 [facility] WorthZfeapgeDXJHDQDXJD4421-47-60 09:43:00 Test Item Value Reference Range Interpretation Comments MPV (test code = MPV) 8.4 7.4-10.4 [facility] WorthSvcuofjIZAUDYJUCO4292-51-73 09:43:00 Test Item Value Reference Range Interpretation Comments Platelet (test code = Platelet) 211 133-450 [facility] WorthLvwpwrtSZMVVJTLUC6519-05-86 09:43:00 Test Item Value Reference Range Interpretation Comments WBC (test code = WBC) 14.1 3.7-10.4 [facility] WorthZpklmflZWFQDIHMNY0455-67-60 09:43:00 Test Item Value Reference Range Interpretation Comments RBC (test code = RBC) 4.43 4.70-6.10 [facility] WorthTsqpbbnWEIYYMIVHP0624-55-38 09:43:00 Test Item Value Reference Range Interpretation Comments RBC (test code = RBC) 4.43 4.70-6.10 [facility] WorthEgvmvmlJVTVADIXDI6656-31-52 09:43:00 Test Item Value Reference Range Interpretation Comments Hgb (test code = Hgb) 13.3 14.0-18.0 [facility] WorthLperaebPIHCHJTIUN1793-81-73 09:43:00 Test Item Value Reference Range Interpretation Comments MCV (test code = MCV) 90.8 80.0-94.0 [facility] WorthTunbvdtYWBRSIJAEE9576-54-65 09:43:00 Test Item Value Reference Range Interpretation Comments MCHC (test code = MCHC) 33.1 32.0-36.0 [facility] WorthRsjwzhiVVBQQLFPVI2507-77-73 09:43:00 Test Item Value Reference Range Interpretation Comments MCH (test code = MCH) 30.0 pg 27.0-31.0 [facility] WorthWffafggDOFEZXTSPY1424-33-85 09:43:00 Test Item Value Reference Range Interpretation Comments RDW (test code = RDW) 14.6 11.5-14.5 [facility] WorthFgmrkjlULBWCTBAVP3458-15-79 09:43:00 Test Item Value Reference Range Interpretation Comments Hct (test code = Hct) 40.2 42.0-54.0 [facility] WorthArjfpeiIYXZEITBAP0583-89-19 09:43:00 Test Item Value Reference Range Interpretation Comments Hgb (test code = Hgb) 13.3 14.0-18.0 [facility] WorthOhfmosgFTJEBVMCZT1222-03-66 09:43:00 Test Item Value Reference Range Interpretation Comments MCV (test code = MCV) 90.8 80.0-94.0 [facility] WorthEfxgnkaDSWMXJYLDE4564-94-49 09:43:00 Test Item Value Reference Range Interpretation Comments MCHC (test code = MCHC) 33.1 32.0-36.0 [facility] WorthKietdroNAZGFXICOC4940-49-27 09:43:00 Test Item Value Reference Range Interpretation Comments MCH (test code = MCH) 30.0 pg 27.0-31.0 [facility] WorthGixwaasWIQDFGJHBK7714-19-32 09:43:00 Test Item Value Reference Range Interpretation Comments RDW (test code = RDW) 14.6 11.5-14.5 [facility] WorthFjxglfmDIXWTPAIPE6376-18-37 09:43:00 Test Item Value Reference Range Interpretation Comments Hct (test code = Hct) 40.2 42.0-54.0 [facility]2017-08-09 09:43:00 Test Item Value Reference Range Interpretation Comments eGFR (test code = eGFR) 53 [facility]2017-08-09 09:43:00 Test Item Value Reference Range Interpretation Comments Glucose Lvl (test code = Glucose Lvl) 116 70-99 [facility]2017-08-09 09:43:00 Test Item Value Reference Range Interpretation Comments BUN (test code = BUN) 18 7-22 [facility]2017-08-09 09:43:00 Test Item Value Reference Range Interpretation Comments Creatinine Lvl (test code = Creatinine 1.50 0.50-1.40 Lvl) [facility]2017-08-09 09:43:00 Test Item Value Reference Range Interpretation Comments Potassium Lvl (test code = Potassium 3.9 3.5-5.1 Lvl) [facility]2017-08-09 09:43:00 Test Item Value Reference Range Interpretation Comments Sodium Lvl (test code = Sodium Lvl) 137 135-145 [facility]2017-08-09 09:43:00 Test Item Value Reference Range Interpretation Comments Calcium Lvl (test code = Calcium Lvl) 7.9 8.5-10.5 [facility]2017-08-09 09:43:00 Test Item Value Reference Range Interpretation Comments CO2 (test code = CO2) 24 24-32 [facility]2017-08-09 09:43:00 Test Item Value Reference Range Interpretation Comments Chloride Lvl (test code = Chloride Lvl) 104 95-109 [facility]2017-08-09 09:43:00 Test Item Value Reference Range Interpretation Comments AGAP (test code = AGAP) 12.9 10.0-20.0 [facility] WorthUdtphwwRYSUHYOOOI0331-36-73 09:43:00 Test Item Value Reference Range Interpretation Comments Basophils # (test code 0.1 See_Comment [Aut omated message] The = Basophils #) system which generated this result tra nsmitted reference range : <=0.2. The reference r mary was not used to int erpret this result as normal/abnormal . [facility] WorthGmbsfkwQQTTGYAZXV8765-15-37 09:43:00 Test Item Value Reference Range Interpretation Comments Monocytes # (test code 1.2 See_Comment [Aut omated message] The = Monocytes #) system which generated this result tra nsmitted reference range : <=0.8. The reference r mary was not used to int erpret this result as normal/abnormal . [facility] WorthGwgswahUPDVHIZVSY2675-87-75 09:43:00 Test Item Value Reference Range Interpretation Comments Eosinophils # (test code 0.2 See_Comment [A utomated message] The = Eosinophils #) system wh h generated this result tra nsmitted reference range : <=0.5. The reference r mary was not used to int erpret this result as normal/abnormal . [facility] WorthSwuxvpjLOITVDUVLR1808-80-45 09:43:00 Test Item Value Reference Range Interpretation Comments Lymphocytes # (test code = Lymphocytes 2.5 1.0-5.5 #) [facility] WorthApmuirzWUXKDBGKTA0102-24-65 09:43:00 Test Item Value Reference Range Interpretation Comments Monocytes (test code = Monocytes) 8.7 2.0-12.0 [facility] WorthXxoxbnuXPZQMIMXDE6714-43-38 09:43:00 Test Item Value Reference Range Interpretation Comments Eosinophils (test code = 1.6 See_Comment [A utomated message] The Eosinophils) system which ge nerated this result tra nsmitted reference range : <=4.0. The reference r mary was not used to int erpret this result as normal/abnormal . [facility] WorthAdipmwdMJYSZRPJDT1403-16-57 09:43:00 Test Item Value Reference Range Interpretation Comments Basophils (test code = 0.4 See_Comment [Aut omated message] The Basophils) system which ge nerated this result tra nsmitted reference range : <=1.0. The reference r mary was not used to int erpret this result as normal/abnormal . [facility] WorthHnqcxeqFZYILBIQMM1904-80-51 09:43:00 Test Item Value Reference Range Interpretation Comments Segs-Bands # (test code = Segs-Bands #) 10.1 1.5-8.1 [facility] WorthVdsedizGUKUDTKNEW9523-67-05 09:43:00 Test Item Value Reference Range Interpretation Comments Lymphocytes (test code = Lymphocytes) 17.7 20.0-40.0 [facility] WorthPhdjxblEWLHOZEHSL3767-25-30 09:43:00 Test Item Value Reference Range Interpretation Comments Segs (test code = Segs) 71.6 45.0-75.0 [facility] WorthMrebfguMVZOTSDSOT9684-81-71 09:43:00 Test Item Value Reference Range Interpretation Comments MPV (test code = MPV) 8.4 7.4-10.4 [facility] WorthKojckkdYYHNBPATAE1114-97-84 09:43:00 Test Item Value Reference Range Interpretation Comments Platelet (test code = Platelet) 211 133-450 [facility] WorthWkxyziaAYOVXKIWAB4448-53-25 09:43:00 Test Item Value Reference Range Interpretation Comments WBC (test code = WBC) 14.1 3.7-10.4 [facility] WorthUnexxteTJMMNFHNIV4482-91-60 09:43:00 Test Item Value Reference Range Interpretation Comments RBC (test code = RBC) 4.43 4.70-6.10 [facility] WorthHvhcckrFXLXVLPBEH5831-62-77 09:43:00 Test Item Value Reference Range Interpretation Comments Hgb (test code = Hgb) 13.3 14.0-18.0 [facility] WorthMgdntkmXLPUOQUHKK5545-64-06 09:43:00 Test Item Value Reference Range Interpretation Comments MCV (test code = MCV) 90.8 80.0-94.0 [facility] WorthZpzatlaDQRGDWNZUV4375-62-39 09:43:00 Test Item Value Reference Range Interpretation Comments MCHC (test code = MCHC) 33.1 32.0-36.0 [facility] WorthEinbomgIGXSQNODJX4734-89-49 09:43:00 Test Item Value Reference Range Interpretation Comments MCH (test code = MCH) 30.0 pg 27.0-31.0 [facility] WorthAfcetfjQVLNJLXYDN8538-63-17 09:43:00 Test Item Value Reference Range Interpretation Comments RDW (test code = RDW) 14.6 11.5-14.5 [facility] WorthUboxvbxEHGFHQSYAR6331-70-49 09:43:00 Test Item Value Reference Range Interpretation Comments Hct (test code = Hct) 40.2 42.0-54.0 [facility]2017-08-09 09:43:00 Test Item Value Reference Range Interpretation Comments eGFR (test code = eGFR) 53 [facility]2017-08-09 09:43:00 Test Item Value Reference Range Interpretation Comments Glucose Lvl (test code = Glucose Lvl) 116 70-99 [facility]2017-08-09 09:43:00 Test Item Value Reference Range Interpretation Comments BUN (test code = BUN) 18 7-22 [facility]2017-08-09 09:43:00 Test Item Value Reference Range Interpretation Comments Creatinine Lvl (test code = Creatinine 1.50 0.50-1.40 Lvl) [facility]2017-08-09 09:43:00 Test Item Value Reference Range Interpretation Comments Potassium Lvl (test code = Potassium 3.9 3.5-5.1 Lvl) [facility]2017-08-09 09:43:00 Test Item Value Reference Range Interpretation Comments Sodium Lvl (test code = Sodium Lvl) 137 135-145 [facility]2017-08-09 09:43:00 Test Item Value Reference Range Interpretation Comments Calcium Lvl (test code = Calcium Lvl) 7.9 8.5-10.5 [facility]2017-08-09 09:43:00 Test Item Value Reference Range Interpretation Comments CO2 (test code = CO2) 24 24-32 [facility]2017-08-09 09:43:00 Test Item Value Reference Range Interpretation Comments Chloride Lvl (test code = Chloride Lvl) 104 95-109 [facility]2017-08-09 09:43:00 Test Item Value Reference Range Interpretation Comments AGAP (test code = AGAP) 12.9 10.0-20.0 [facility] WorthPwlptgnSBOXRTAPES3800-65-36 09:43:00 Test Item Value Reference Range Interpretation Comments Basophils # (test code 0.1 See_Comment [Aut omated message] The = Basophils #) system which generated this result tra nsmitted reference range : <=0.2. The reference r mary was not used to int erpret this result as normal/abnormal . [facility] WorthCenqdwcMBVRUFZQZL7765-63-78 09:43:00 Test Item Value Reference Range Interpretation Comments Monocytes # (test code 1.2 See_Comment [Aut omated message] The = Monocytes #) system which generated this result tra nsmitted reference range : <=0.8. The reference r mary was not used to int erpret this result as normal/abnormal . [facility] WorthDnwsfspXOLTFVWUVM1020-18-83 09:43:00 Test Item Value Reference Range Interpretation Comments Eosinophils # (test code 0.2 See_Comment [A utomated message] The = Eosinophils #) system whic h generated this result tra nsmitted reference range : <=0.5. The reference r mary was not used to int erpret this result as normal/abnormal . [facility] WorthMttsyqmTNDFEFTPUS4882-22-06 09:43:00 Test Item Value Reference Range Interpretation Comments Lymphocytes # (test code = Lymphocytes 2.5 1.0-5.5 #) [facility] WorthPkkakzkCDHEGNNOTI7644-79-63 09:43:00 Test Item Value Reference Range Interpretation Comments Monocytes (test code = Monocytes) 8.7 2.0-12.0 [facility] WorthXgmnwrbCALFVTJOCV7783-32-51 09:43:00 Test Item Value Reference Range Interpretation Comments Eosinophils (test code = 1.6 See_Comment [A utomated message] The Eosinophils) system which ge nerated this result tra nsmitted reference range : <=4.0. The reference r mary was not used to int erpret this result as normal/abnormal . [facility] WorthYkmfyzvGGZERLKOGJ7934-85-53 09:43:00 Test Item Value Reference Range Interpretation Comments Basophils (test code = 0.4 See_Comment [Aut omated message] The Basophils) system which ge nerated this result tra nsmitted reference range : <=1.0. The reference r mary was not used to int erpret this result as normal/abnormal . [facility] WorthAyctdeyHQLEWLDEKW2616-68-76 09:43:00 Test Item Value Reference Range Interpretation Comments Segs-Bands # (test code = Segs-Bands #) 10.1 1.5-8.1 [facility] WorthZzqdtkzPIWVPLXGBH3441-11-67 09:43:00 Test Item Value Reference Range Interpretation Comments Lymphocytes (test code = Lymphocytes) 17.7 20.0-40.0 [facility] WorthWomjlfpKJCRDDKOAA7846-50-85 09:43:00 Test Item Value Reference Range Interpretation Comments Segs (test code = Segs) 71.6 45.0-75.0 [facility] WorthNruiopmAVSOOEQVQW2757-83-80 09:43:00 Test Item Value Reference Range Interpretation Comments MPV (test code = MPV) 8.4 7.4-10.4 [facility] WorthBesbmvcLSRAPRMYUW0003-72-19 09:43:00 Test Item Value Reference Range Interpretation Comments Platelet (test code = Platelet) 211 133-450 [facility] WorthTzcowwoZETLUIGAPK9312-37-01 09:43:00 Test Item Value Reference Range Interpretation Comments WBC (test code = WBC) 14.1 3.7-10.4 [facility] WorthTyftvhbZZKGDOGKFK4871-17-67 09:43:00 Test Item Value Reference Range Interpretation Comments RBC (test code = RBC) 4.43 4.70-6.10 [facility] WorthApwfslhAWOYOXYNWU8656-48-92 09:43:00 Test Item Value Reference Range Interpretation Comments Hgb (test code = Hgb) 13.3 14.0-18.0 [facility] WorthZxcwdnmZIHHLISZDF1779-05-69 09:43:00 Test Item Value Reference Range Interpretation Comments MCV (test code = MCV) 90.8 80.0-94.0 [facility] WorthGbrdhywNMNMDCGVYX1732-90-01 09:43:00 Test Item Value Reference Range Interpretation Comments MCHC (test code = MCHC) 33.1 32.0-36.0 [facility] WorthLwowisaLQJISYXJTQ1289-30-65 09:43:00 Test Item Value Reference Range Interpretation Comments MCH (test code = MCH) 30.0 pg 27.0-31.0 [facility] WorthEgjzzzfMVLRNJYZFH3498-69-30 09:43:00 Test Item Value Reference Range Interpretation Comments RDW (test code = RDW) 14.6 11.5-14.5 [facility] WorthHjitnhqQGUXTLBROC4717-20-97 09:43:00 Test Item Value Reference Range Interpretation Comments Hct (test code = Hct) 40.2 42.0-54.0 [facility]2017-08-09 09:43:00 Test Item Value Reference Range Interpretation Comments eGFR (test code = eGFR) 53 [facility] JZQBR5977-13-34 09:43:00 Test Item Value Reference Range Interpretation Comments Glucose Lvl (test code = Glucose Lvl) 116 70-99 [facility]2017-08-09 09:43:00 Test Item Value Reference Range Interpretation Comments BUN (test code = BUN) 18 7-22 [facility]2017-08-09 09:43:00 Test Item Value Reference Range Interpretation Comments Creatinine Lvl (test code = Creatinine 1.50 0.50-1.40 Lvl) [facility]2017-08-09 09:43:00 Test Item Value Reference Range Interpretation Comments Potassium Lvl (test code = Potassium 3.9 3.5-5.1 Lvl) [facility]2017-08-09 09:43:00 Test Item Value Reference Range Interpretation Comments Sodium Lvl (test code = Sodium Lvl) 137 135-145 [facility]2017-08-09 09:43:00 Test Item Value Reference Range Interpretation Comments Calcium Lvl (test code = Calcium Lvl) 7.9 8.5-10.5 [facility]2017-08-09 09:43:00 Test Item Value Reference Range Interpretation Comments CO2 (test code = CO2) 24 24-32 [facility]2017-08-09 09:43:00 Test Item Value Reference Range Interpretation Comments Chloride Lvl (test code = Chloride Lvl) 104 95-109 [facility]2017-08-09 09:43:00 Test Item Value Reference Range Interpretation Comments AGAP (test code = AGAP) 12.9 10.0-20.0 [facility] WorthLgrvtkkMFPOERUWMD8580-43-85 09:43:00 Test Item Value Reference Range Interpretation Comments Basophils # (test code 0.1 See_Comment [Aut omated message] The = Basophils #) system which generated this result tra nsmitted reference range : <=0.2. The reference r mary was not used to int erpret this result as normal/abnormal . [facility] WorthDoazytvAGXMGTAADI7560-41-24 09:43:00 Test Item Value Reference Range Interpretation Comments Monocytes # (test code 1.2 See_Comment [Aut omated message] The = Monocytes #) system which generated this result tra nsmitted reference range : <=0.8. The reference r mary was not used to int erpret this result as normal/abnormal . [place]607-08-09 09:43:00 Test Item Value Reference Range Interpretation Comments Eosinophils # (test code 0.2 See_Comment [A utomated message] The = Eosinophils #) system whic h generated this result tra nsmitted reference range : <=0.5. The reference r mary was not used to int erpret this result as normal/abnormal . [facility] WorthJffjtjiCOVFHGMFHF5325-00-71 09:43:00 Test Item Value Reference Range Interpretation Comments Lymphocytes # (test code = Lymphocytes 2.5 1.0-5.5 #) [facility] WorthPxkhxwaMAVCGSKSCN4328-34-09 09:43:00 Test Item Value Reference Range Interpretation Comments Monocytes (test code = Monocytes) 8.7 2.0-12.0 [facility] WorthSaesazsPELOTYNELW8934-96-71 09:43:00 Test Item Value Reference Range Interpretation Comments Eosinophils (test code = 1.6 See_Comment [A utomated message] The Eosinophils) system which ge nerated this result tra nsmitted reference range : <=4.0. The reference r mary was not used to int erpret this result as normal/abnormal . [facility] WorthSypogteTVNFUUBETL5676-22-53 09:43:00 Test Item Value Reference Range Interpretation Comments Basophils (test code = 0.4 See_Comment [Aut omated message] The Basophils) system which ge nerated this result tra nsmitted reference range : <=1.0. The reference r mary was not used to int erpret this result as normal/abnormal . [facility] WorthJtlmlveAUPYTWMUWX2673-50-93 09:43:00 Test Item Value Reference Range Interpretation Comments Segs-Bands # (test code = Segs-Bands #) 10.1 1.5-8.1 [facility] WorthItntxosOURGKVTHHB5011-76-51 09:43:00 Test Item Value Reference Range Interpretation Comments Lymphocytes (test code = Lymphocytes) 17.7 20.0-40.0 [facility] WorthOktolxaLMUGTAMFRU5512-78-95 09:43:00 Test Item Value Reference Range Interpretation Comments Segs (test code = Segs) 71.6 45.0-75.0 [facility] WorthPlpgxkkTMIFTTNSWA0746-80-62 09:43:00 Test Item Value Reference Range Interpretation Comments MPV (test code = MPV) 8.4 7.4-10.4 [facility] WorthVsgrziuFIVHGYNQPB6451-67-94 09:43:00 Test Item Value Reference Range Interpretation Comments Platelet (test code = Platelet) 211 133-450 [facility] WorthRruatciZBJOAYALBB8527-78-24 09:43:00 Test Item Value Reference Range Interpretation Comments WBC (test code = WBC) 14.1 3.7-10.4 [facility] WorthWenmjnuIFREGWSHEU6265-55-30 09:43:00 Test Item Value Reference Range Interpretation Comments RBC (test code = RBC) 4.43 4.70-6.10 [facility] WorthDmfluewHYHGOKULPH2276-08-68 09:43:00 Test Item Value Reference Range Interpretation Comments Hgb (test code = Hgb) 13.3 14.0-18.0 [facility] WorthYjtquisOQUBSVUUDK0787-26-41 09:43:00 Test Item Value Reference Range Interpretation Comments MCV (test code = MCV) 90.8 80.0-94.0 [facility] WorthMbmsevuADOWHOHTWD2580-36-79 09:43:00 Test Item Value Reference Range Interpretation Comments MCHC (test code = MCHC) 33.1 32.0-36.0 [facility] WorthQlbqrfeUWCJTAXYEA2591-29-26 09:43:00 Test Item Value Reference Range Interpretation Comments MCH (test code = MCH) 30.0 pg 27.0-31.0 [facility] WorthWtmkblqJUGMBURQPL3789-04-89 09:43:00 Test Item Value Reference Range Interpretation Comments RDW (test code = RDW) 14.6 11.5-14.5 [facility] WorthRdeksrlMGDHIQTCLB7097-05-18 09:43:00 Test Item Value Reference Range Interpretation Comments Hct (test code = Hct) 40.2 42.0-54.0 [facility]2017-08-09 09:43:00 Test Item Value Reference Range Interpretation Comments eGFR (test code = eGFR) 53 [facility]2017-08-09 09:43:00 Test Item Value Reference Range Interpretation Comments Glucose Lvl (test code = Glucose Lvl) 116 70-99 [facility]2017-08-09 09:43:00 Test Item Value Reference Range Interpretation Comments BUN (test code = BUN) 18 7-22 [facility]2017-08-09 09:43:00 Test Item Value Reference Range Interpretation Comments Creatinine Lvl (test code = Creatinine 1.50 0.50-1.40 Lvl) [facility]2017-08-09 09:43:00 Test Item Value Reference Range Interpretation Comments Potassium Lvl (test code = Potassium 3.9 3.5-5.1 Lvl) [facility]2017-08-09 09:43:00 Test Item Value Reference Range Interpretation Comments Sodium Lvl (test code = Sodium Lvl) 137 135-145 [facility]2017-08-09 09:43:00 Test Item Value Reference Range Interpretation Comments Calcium Lvl (test code = Calcium Lvl) 7.9 8.5-10.5 [facility]2017-08-09 09:43:00 Test Item Value Reference Range Interpretation Comments CO2 (test code = CO2) 24 24-32 [facility]2017-08-09 09:43:00 Test Item Value Reference Range Interpretation Comments Chloride Lvl (test code = Chloride Lvl) 104 95-109 [facility]2017-08-09 09:43:00 Test Item Value Reference Range Interpretation Comments AGAP (test code = AGAP) 12.9 10.0-20.0 [facility] WorthWkxbgkvMLBWPAGSGC7642-76-42 09:43:00 Test Item Value Reference Range Interpretation Comments Basophils # (test code 0.1 See_Comment [Aut omated message] The = Basophils #) system which generated this result tra nsmitted reference range : <=0.2. The reference r mary was not used to int erpret this result as normal/abnormal . [facility] WorthQavjehjDSAMRFXQRA2649-27-86 09:43:00 Test Item Value Reference Range Interpretation Comments Monocytes # (test code 1.2 See_Comment [Aut omated message] The = Monocytes #) system which generated this result tra nsmitted reference range : <=0.8. The reference r mary was not used to int erpret this result as normal/abnormal . [facility] WorthSjzgvscNSHQWHHCCZ6153-38-35 09:43:00 Test Item Value Reference Range Interpretation Comments Eosinophils # (test code 0.2 See_Comment [A utomated message] The = Eosinophils #) system whic h generated this result tra nsmitted reference range : <=0.5. The reference r mary was not used to int erpret this result as normal/abnormal . [facility] WorthUjgkanbDPBSTHIWUO3259-18-36 09:43:00 Test Item Value Reference Range Interpretation Comments Lymphocytes # (test code = Lymphocytes 2.5 1.0-5.5 #) [facility] WorthJkkmhwfZSULNBOVGR6053-04-80 09:43:00 Test Item Value Reference Range Interpretation Comments Monocytes (test code = Monocytes) 8.7 2.0-12.0 [facility] WorthHnnammdVJEIHHFYON9891-26-43 09:43:00 Test Item Value Reference Range Interpretation Comments Eosinophils (test code = 1.6 See_Comment [A utomated message] The Eosinophils) system which ge nerated this result tra nsmitted reference range : <=4.0. The reference r mary was not used to int erpret this result as normal/abnormal . [facility] WorthGqnesmtEJLMGRFOVM8354-23-98 09:43:00 Test Item Value Reference Range Interpretation Comments Basophils (test code = 0.4 See_Comment [Aut omated message] The Basophils) system which ge nerated this result tra nsmitted reference range : <=1.0. The reference r mary was not used to int erpret this result as normal/abnormal . [facility] WorthEvtyxbqAKMTDVCIED2559-99-79 09:43:00 Test Item Value Reference Range Interpretation Comments Segs-Bands # (test code = Segs-Bands #) 10.1 1.5-8.1 [facility] WorthJsobaqoQGHKNJJKGX0017-82-03 09:43:00 Test Item Value Reference Range Interpretation Comments Lymphocytes (test code = Lymphocytes) 17.7 20.0-40.0 [facility] WorthQbhchurATAATSYZAC3667-99-00 09:43:00 Test Item Value Reference Range Interpretation Comments Segs (test code = Segs) 71.6 45.0-75.0 [facility] WorthHlerqhbMUVEQBMECI3717-54-66 09:43:00 Test Item Value Reference Range Interpretation Comments MPV (test code = MPV) 8.4 7.4-10.4 [facility] WorthCcfhutjNVFRZRMLCY6133-75-46 09:43:00 Test Item Value Reference Range Interpretation Comments Platelet (test code = Platelet) 211 133-450 [facility] WorthVoimrdePYSWMBBXPC0952-39-75 09:43:00 Test Item Value Reference Range Interpretation Comments WBC (test code = WBC) 14.1 3.7-10.4 [facility] WorthNbjslbdHDBZVQOGLJ7523-15-63 09:43:00 Test Item Value Reference Range Interpretation Comments RBC (test code = RBC) 4.43 4.70-6.10 [facility] WorthWzfxeitOPODDASTBP7509-03-28 09:43:00 Test Item Value Reference Range Interpretation Comments Hgb (test code = Hgb) 13.3 14.0-18.0 [facility] WorthLdqggwiBYRCQDMXOZ6667-70-09 09:43:00 Test Item Value Reference Range Interpretation Comments MCV (test code = MCV) 90.8 80.0-94.0 [facility] WorthYfcalneKGBPIICTUR9513-39-78 09:43:00 Test Item Value Reference Range Interpretation Comments MCHC (test code = MCHC) 33.1 32.0-36.0 [facility] WorthNhitzgdNSDXSWLSEC7039-43-00 09:43:00 Test Item Value Reference Range Interpretation Comments MCH (test code = MCH) 30.0 pg 27.0-31.0 [facility] WorthWtvmmddWSWOZLBWXK9479-42-10 09:43:00 Test Item Value Reference Range Interpretation Comments RDW (test code = RDW) 14.6 11.5-14.5 [facility] WorthMplevfdLNTLSRUJLR4031-37-36 09:43:00 Test Item Value Reference Range Interpretation Comments Hct (test code = Hct) 40.2 42.0-54.0 [facility]2017-08-09 09:43:00 Test Item Value Reference Range Interpretation Comments eGFR (test code = eGFR) 53 [facility]2017-08-09 09:43:00 Test Item Value Reference Range Interpretation Comments Glucose Lvl (test code = Glucose Lvl) 116 70-99 [facility]2017-08-09 09:43:00 Test Item Value Reference Range Interpretation Comments BUN (test code = BUN) 18 7-22 [facility]2017-08-09 09:43:00 Test Item Value Reference Range Interpretation Comments Creatinine Lvl (test code = Creatinine 1.50 0.50-1.40 Lvl) [facility]2017-08-09 09:43:00 Test Item Value Reference Range Interpretation Comments Potassium Lvl (test code = Potassium 3.9 3.5-5.1 Lvl) [facility]2017-08-09 09:43:00 Test Item Value Reference Range Interpretation Comments Sodium Lvl (test code = Sodium Lvl) 137 135-145 [facility]2017-08-09 09:43:00 Test Item Value Reference Range Interpretation Comments Calcium Lvl (test code = Calcium Lvl) 7.9 8.5-10.5 [facility]2017-08-09 09:43:00 Test Item Value Reference Range Interpretation Comments CO2 (test code = CO2) 24 24-32 [facility]2017-08-09 09:43:00 Test Item Value Reference Range Interpretation Comments Chloride Lvl (test code = Chloride Lvl) 104 95-109 [facility]2017-08-09 09:43:00 Test Item Value Reference Range Interpretation Comments AGAP (test code = AGAP) 12.9 10.0-20.0 [facility] WorthNvesotaXJAEMWTJYA2838-00-01 09:43:00 Test Item Value Reference Range Interpretation Comments Basophils # (test code 0.1 See_Comment [Aut omated message] The = Basophils #) system which generated this result tra nsmitted reference range : <=0.2. The reference r mary was not used to int erpret this result as normal/abnormal . [facility] WorthGnrxvfuURZCFPKLZW6150-86-08 09:43:00 Test Item Value Reference Range Interpretation Comments Monocytes # (test code 1.2 See_Comment [Aut omated message] The = Monocytes #) system which generated this result tra nsmitted reference range : <=0.8. The reference r mary was not used to int erpret this result as normal/abnormal . [facility] WorthBkulwxvTGSXWSIDMN6895-26-99 09:43:00 Test Item Value Reference Range Interpretation Comments Eosinophils # (test code 0.2 See_Comment [A utomated message] The = Eosinophils #) system whic h generated this result tra nsmitted reference range : <=0.5. The reference r mary was not used to int erpret this result as normal/abnormal . [facility] WorthDwbyfrzNJIDSQUSIF3178-84-73 09:43:00 Test Item Value Reference Range Interpretation Comments Lymphocytes # (test code = Lymphocytes 2.5 1.0-5.5 #) [facility] WorthDozmrweCMYFJXSLNS5821-94-20 09:43:00 Test Item Value Reference Range Interpretation Comments Monocytes (test code = Monocytes) 8.7 2.0-12.0 [facility] WorthRqscepuZWPWNOIIFR3431-97-30 09:43:00 Test Item Value Reference Range Interpretation Comments Eosinophils (test code = 1.6 See_Comment [A utomated message] The Eosinophils) system which ge nerated this result tra nsmitted reference range : <=4.0. The reference r mary was not used to int erpret this result as normal/abnormal . [facility] WorthLczxxltFMTUMFTLTH0990-68-94 09:43:00 Test Item Value Reference Range Interpretation Comments Basophils (test code = 0.4 See_Comment [Aut omated message] The Basophils) system which ge nerated this result tra nsmitted reference range : <=1.0. The reference r mary was not used to int erpret this result as normal/abnormal . [facility] WorthBftiqnhQOREPOOSDC7841-08-05 09:43:00 Test Item Value Reference Range Interpretation Comments Segs-Bands # (test code = Segs-Bands #) 10.1 1.5-8.1 [facility] WorthDjzyovuDSPVYGEJIH4419-29-57 09:43:00 Test Item Value Reference Range Interpretation Comments Lymphocytes (test code = Lymphocytes) 17.7 20.0-40.0 [facility] WorthHciclbiSRUUKOXNGX8284-17-36 09:43:00 Test Item Value Reference Range Interpretation Comments Segs (test code = Segs) 71.6 45.0-75.0 [facility] WorthXwbilyaOVDKOARFLM5717-74-59 09:43:00 Test Item Value Reference Range Interpretation Comments MPV (test code = MPV) 8.4 7.4-10.4 [facility] WorthLrxsroxWGTYQMBJPB1269-29-67 09:43:00 Test Item Value Reference Range Interpretation Comments Platelet (test code = Platelet) 211 133-450 [facility] WorthRywywgbXZZUUCVWRL7949-17-21 09:43:00 Test Item Value Reference Range Interpretation Comments WBC (test code = WBC) 14.1 3.7-10.4 [facility] WorthRyqxynfONHFIKVPHK0215-19-57 09:43:00 Test Item Value Reference Range Interpretation Comments RBC (test code = RBC) 4.43 4.70-6.10 [facility] WorthSgzlkkjFRICWKSMRQ9660-41-15 09:43:00 Test Item Value Reference Range Interpretation Comments Hgb (test code = Hgb) 13.3 14.0-18.0 [facility] WorthEugajmkVBHAVCSADK3241-18-15 09:43:00 Test Item Value Reference Range Interpretation Comments MCV (test code = MCV) 90.8 80.0-94.0 [facility] WorthXrnvpphICSVMLAPWZ7613-98-95 09:43:00 Test Item Value Reference Range Interpretation Comments MCHC (test code = MCHC) 33.1 32.0-36.0 [facility] WorthIhnhtjfMDLDNMBDJU3128-38-41 09:43:00 Test Item Value Reference Range Interpretation Comments MCH (test code = MCH) 30.0 pg 27.0-31.0 [facility] WorthDibizdvHCKIXSMEKO8727-94-54 09:43:00 Test Item Value Reference Range Interpretation Comments RDW (test code = RDW) 14.6 11.5-14.5 [facility] WorthRrqzlpdTYUMZCRLXA4517-10-39 09:43:00 Test Item Value Reference Range Interpretation Comments Hct (test code = Hct) 40.2 42.0-54.0 [facility]2017-08-09 09:43:00 Test Item Value Reference Range Interpretation Comments eGFR (test code = eGFR) 53 [facility]2017-08-09 09:43:00 Test Item Value Reference Range Interpretation Comments Glucose Lvl (test code = Glucose Lvl) 116 70-99 [facility]2017-08-09 09:43:00 Test Item Value Reference Range Interpretation Comments BUN (test code = BUN) 18 7-22 [facility]2017-08-09 09:43:00 Test Item Value Reference Range Interpretation Comments Creatinine Lvl (test code = Creatinine 1.50 0.50-1.40 Lvl) [facility]2017-08-09 09:43:00 Test Item Value Reference Range Interpretation Comments Potassium Lvl (test code = Potassium 3.9 3.5-5.1 Lvl) [facility]2017-08-09 09:43:00 Test Item Value Reference Range Interpretation Comments Sodium Lvl (test code = Sodium Lvl) 137 135-145 [facility]2017-08-09 09:43:00 Test Item Value Reference Range Interpretation Comments Calcium Lvl (test code = Calcium Lvl) 7.9 8.5-10.5 [facility]2017-08-09 09:43:00 Test Item Value Reference Range Interpretation Comments CO2 (test code = CO2) 24 24-32 [facility] [facility] 09:[facility]:00 Test Item Value Reference Range Interpretation Comments Chloride Lvl (test code = Chloride Lvl) 104 95-109 [facility]2017-08-09 09:43:00 Test Item Value Reference Range Interpretation Comments AGAP (test code = AGAP) 12.9 10.0-20.0 [facility] WorthQvsiojiBQVQTCEYUU2626-38-09 09:43:00 Test Item Value Reference Range Interpretation Comments Basophils # (test code 0.1 See_Comment [Aut omated message] The = Basophils #) system which generated this result tra nsmitted reference range : <=0.2. The reference r mary was not used to int erpret this result as normal/abnormal . [facility] WorthStvaatzPUDKOGEFTO1983-14-24 09:43:00 Test Item Value Reference Range Interpretation Comments Monocytes # (test code 1.2 See_Comment [Aut omated message] The = Monocytes #) system which generated this result tra nsmitted reference range : <=0.8. The reference r mary was not used to int erpret this result as normal/abnormal . [facility] WorthPdyazdcGWZSFPANCF7386-70-18 09:43:00 Test Item Value Reference Range Interpretation Comments Eosinophils # (test code 0.2 See_Comment [A utomated message] The = Eosinophils #) system whic h generated this result tra nsmitted reference range : <=0.5. The reference r mary was not used to int erpret this result as normal/abnormal . [facility] WorthPyhdwqrVSJXAQUWCK3483-01-87 09:43:00 Test Item Value Reference Range Interpretation Comments Lymphocytes # (test code = Lymphocytes 2.5 1.0-5.5 #) [facility] WorthUpaadthEKABVMPWGM3355-35-45 09:43:00 Test Item Value Reference Range Interpretation Comments Monocytes (test code = Monocytes) 8.7 2.0-12.0 [facility] WorthBhsnkecVDZIABWMCM7141-54-51 09:43:00 Test Item Value Reference Range Interpretation Comments Eosinophils (test code = 1.6 See_Comment [A utomated message] The Eosinophils) system which ge nerated this result tra nsmitted reference range : <=4.0. The reference r mary was not used to int erpret this result as normal/abnormal . [facility] WorthWawhfjcCFEYPSYNMP9873-62-94 09:43:00 Test Item Value Reference Range Interpretation Comments Basophils (test code = 0.4 See_Comment [Aut omated message] The Basophils) system which ge nerated this result tra nsmitted reference range : <=1.0. The reference r mary was not used to int erpret this result as normal/abnormal . [facility] WorthPzlfygyAYITKEOJDK5727-60-95 09:43:00 Test Item Value Reference Range Interpretation Comments Segs-Bands # (test code = Segs-Bands #) 10.1 1.5-8.1 [facility] WorthYyfyogkLUUBTITTMS6712-32-90 09:43:00 Test Item Value Reference Range Interpretation Comments Lymphocytes (test code = Lymphocytes) 17.7 20.0-40.0 [facility] WorthDwwgclaSXJRJTPICQ0355-74-32 09:43:00 Test Item Value Reference Range Interpretation Comments Segs (test code = Segs) 71.6 45.0-75.0 [facility] WorthOblytgpQZCNXLUMFR4457-27-45 09:43:00 Test Item Value Reference Range Interpretation Comments MPV (test code = MPV) 8.4 7.4-10.4 [facility] WorthYmgrbzgAHYEBPXQEX0562-00-66 09:43:00 Test Item Value Reference Range Interpretation Comments Platelet (test code = Platelet) 211 133-450 [facility] WorthVjhiutoGTOCXUZCYN6927-42-33 09:43:00 Test Item Value Reference Range Interpretation Comments WBC (test code = WBC) 14.1 3.7-10.4 [facility] WorthGsynjvnVGQRAUETEJ4362-24-60 09:43:00 Test Item Value Reference Range Interpretation Comments RBC (test code = RBC) 4.43 4.70-6.10 [facility] WorthBmizituYAYRCQQPFG3984-91-78 09:43:00 Test Item Value Reference Range Interpretation Comments Hgb (test code = Hgb) 13.3 14.0-18.0 [facility] WorthEzynfrpRHKOKOCOET2857-77-63 09:43:00 Test Item Value Reference Range Interpretation Comments MCV (test code = MCV) 90.8 80.0-94.0 [facility] WorthAvftkhwVURJTMZTPY8878-21-00 09:43:00 Test Item Value Reference Range Interpretation Comments MCHC (test code = MCHC) 33.1 32.0-36.0 [facility] WorthGqfgbslMJKYIRNJFB9922-81-60 09:43:00 Test Item Value Reference Range Interpretation Comments MCH (test code = MCH) 30.0 pg 27.0-31.0 [facility] WorthSwnsgpfXAVQKPGMFQ0568-58-23 09:43:00 Test Item Value Reference Range Interpretation Comments RDW (test code = RDW) 14.6 11.5-14.5 [facility] WorthVikbyhoIVWJZKVQNG4575-93-27 09:43:00 Test Item Value Reference Range Interpretation Comments Hct (test code = Hct) 40.2 42.0-54.0 [facility]2017-08-09 09:43:00 Test Item Value Reference Range Interpretation Comments eGFR (test code = eGFR) 53 [facility]2017-08-09 09:43:00 Test Item Value Reference Range Interpretation Comments Glucose Lvl (test code = Glucose Lvl) 116 70-99 [facility]2017-08-09 09:43:00 Test Item Value Reference Range Interpretation Comments BUN (test code = BUN) 18 7-22 [facility]2017-08-09 09:43:00 Test Item Value Reference Range Interpretation Comments Creatinine Lvl (test code = Creatinine 1.50 0.50-1.40 Lvl) [facility]2017-08-09 09:43:00 Test Item Value Reference Range Interpretation Comments Potassium Lvl (test code = Potassium 3.9 3.5-5.1 Lvl) [facility]2017-08-09 09:43:00 Test Item Value Reference Range Interpretation Comments Sodium Lvl (test code = Sodium Lvl) 137 135-145 [facility]2017-08-09 09:43:00 Test Item Value Reference Range Interpretation Comments Calcium Lvl (test code = Calcium Lvl) 7.9 8.5-10.5 [facility]2017-08-09 09:43:00 Test Item Value Reference Range Interpretation Comments CO2 (test code = CO2) 24 24-32 [facility]2017-08-09 09:43:00 Test Item Value Reference Range Interpretation Comments Chloride Lvl (test code = Chloride Lvl) 104 95-109 [facility]2017-08-09 09:43:00 Test Item Value Reference Range Interpretation Comments AGAP (test code = AGAP) 12.9 10.0-20.0 [facility] WorthRabgltwMLMTATQBTS2026-48-74 09:43:00 Test Item Value Reference Range Interpretation Comments Basophils # (test code 0.1 See_Comment [Aut omated message] The = Basophils #) system which generated this result tra nsmitted reference range : <=0.2. The reference r mary was not used to int erpret this result as normal/abnormal . [facility] WorthDhptdxfIIVHLUBNCU4690-72-83 09:43:00 Test Item Value Reference Range Interpretation Comments Monocytes # (test code 1.2 See_Comment [Aut omated message] The = Monocytes #) system which generated this result tra nsmitted reference range : <=0.8. The reference r mary was not used to int erpret this result as normal/abnormal . [facility] WorthCcoyswzTGXCYUNUFN7730-26-27 09:43:00 Test Item Value Reference Range Interpretation Comments Eosinophils # (test code 0.2 See_Comment [A utomated message] The = Eosinophils #) system whic h generated this result tra nsmitted reference range : <=0.5. The reference r mary was not used to int erpret this result as normal/abnormal . [facility] WorthMvbdmryTZJWGGLUHW3387-36-03 09:43:00 Test Item Value Reference Range Interpretation Comments Lymphocytes # (test code = Lymphocytes 2.5 1.0-5.5 #) [facility] WorthTrtapvqVDPTSHQXQX3816-62-85 09:43:00 Test Item Value Reference Range Interpretation Comments Monocytes (test code = Monocytes) 8.7 2.0-12.0 [facility] WorthXgcydbyCIGOLJBWEJ0648-08-14 09:43:00 Test Item Value Reference Range Interpretation Comments Eosinophils (test code = 1.6 See_Comment [A utomated message] The Eosinophils) system which ge nerated this result tra nsmitted reference range : <=4.0. The reference r mary was not used to int erpret this result as normal/abnormal . [facility] WorthLdbjptwXJCXVRXABX4489-20-52 09:43:00 Test Item Value Reference Range Interpretation Comments Basophils (test code = 0.4 See_Comment [Aut omated message] The Basophils) system which ge nerated this result tra nsmitted reference range : <=1.0. The reference r mary was not used to int erpret this result as normal/abnormal . [facility] WorthOwkkvgyMTATPQVGOK4462-02-30 09:43:00 Test Item Value Reference Range Interpretation Comments Segs-Bands # (test code = Segs-Bands #) 10.1 1.5-8.1 [facility] WorthVahmqomAUPGFISOSW7688-41-53 09:43:00 Test Item Value Reference Range Interpretation Comments Lymphocytes (test code = Lymphocytes) 17.7 20.0-40.0 [facility] WorthDwvyqatFCWWDLQDKM4067-27-76 09:43:00 Test Item Value Reference Range Interpretation Comments Segs (test code = Segs) 71.6 45.0-75.0 [facility] WorthLxfppntBCGTSSPQAC6511-41-15 09:43:00 Test Item Value Reference Range Interpretation Comments MPV (test code = MPV) 8.4 7.4-10.4 [facility] WorthJpfjvikXEYXWIMYHD8756-67-60 09:43:00 Test Item Value Reference Range Interpretation Comments Platelet (test code = Platelet) 211 133-450 [facility] WorthOvmtcahZUUCWUDOVW3006-71-88 09:43:00 Test Item Value Reference Range Interpretation Comments WBC (test code = WBC) 14.1 3.7-10.4 [facility] WorthJfnjmucHGRGAAFZZI6835-14-74 09:43:00 Test Item Value Reference Range Interpretation Comments RBC (test code = RBC) 4.43 4.70-6.10 [facility] WorthBkgzvghFPLUMVYXAV4668-38-58 09:43:00 Test Item Value Reference Range Interpretation Comments Hgb (test code = Hgb) 13.3 14.0-18.0 [facility] WorthZksmahwSAFBHRHKHQ9708-37-97 09:43:00 Test Item Value Reference Range Interpretation Comments MCV (test code = MCV) 90.8 80.0-94.0 [facility] WorthTbrwzpqVHZSNGMLGP6085-62-15 09:43:00 Test Item Value Reference Range Interpretation Comments MCHC (test code = MCHC) 33.1 32.0-36.0 [facility] WorthUmmiqknTXQAYMZQWC0679-16-15 09:43:00 Test Item Value Reference Range Interpretation Comments MCH (test code = MCH) 30.0 pg 27.0-31.0 [facility] WorthKhoobuwLHTZLPDWXC9636-85-06 09:43:00 Test Item Value Reference Range Interpretation Comments RDW (test code = RDW) 14.6 11.5-14.5 [facility] WorthDrhxtcaLEVKBAKPMR3233-18-02 09:43:00 Test Item Value Reference Range Interpretation Comments Hct (test code = Hct) 40.2 42.0-54.0 [facility]2017-08-09 09:43:00 Test Item Value Reference Range Interpretation Comments eGFR (test code = eGFR) 53 [facility]2017-08-09 09:43:00 Test Item Value Reference Range Interpretation Comments Glucose Lvl (test code = Glucose Lvl) 116 70-99 [facility]2017-08-09 09:43:00 Test Item Value Reference Range Interpretation Comments BUN (test code = BUN) 18 7-22 [facility]2017-08-09 09:43:00 Test Item Value Reference Range Interpretation Comments Creatinine Lvl (test code = Creatinine 1.50 0.50-1.40 Lvl) [facility]2017-08-09 09:43:00 Test Item Value Reference Range Interpretation Comments Potassium Lvl (test code = Potassium 3.9 3.5-5.1 Lvl) [facility]2017-08-09 09:43:00 Test Item Value Reference Range Interpretation Comments Sodium Lvl (test code = Sodium Lvl) 137 135-145 [facility]2017-08-09 09:43:00 Test Item Value Reference Range Interpretation Comments Calcium Lvl (test code = Calcium Lvl) 7.9 8.5-10.5 [facility]2017-08-09 09:43:00 Test Item Value Reference Range Interpretation Comments CO2 (test code = CO2) 24 24-32 [facility]2017-08-09 09:43:00 Test Item Value Reference Range Interpretation Comments Chloride Lvl (test code = Chloride Lvl) 104 95-109 [facility]2017-08-09 09:43:00 Test Item Value Reference Range Interpretation Comments AGAP (test code = AGAP) 12.9 10.0-20.0 [facility] WorthYxptiblFVSWLCNADZ7670-24-47 09:43:00 Test Item Value Reference Range Interpretation Comments Basophils # (test code 0.1 See_Comment [Aut omated message] The = Basophils #) system which generated this result tra nsmitted reference range : <=0.2. The reference r mary was not used to int erpret this result as normal/abnormal . [facility] WorthYcitvibFPHOQUOKKP9411-14-72 09:43:00 Test Item Value Reference Range Interpretation Comments Monocytes # (test code 1.2 See_Comment [Aut omated message] The = Monocytes #) system which generated this result tra nsmitted reference range : <=0.8. The reference r mary was not used to int erpret this result as normal/abnormal . [facility] WorthRptunbrVIDXFAXGYB5208-40-17 09:43:00 Test Item Value Reference Range Interpretation Comments Eosinophils # (test code 0.2 See_Comment [A utomated message] The = Eosinophils #) system whic h generated this result tra nsmitted reference range : <=0.5. The reference r mary was not used to int erpret this result as normal/abnormal . [facility] WorthBfujzvdPVSNQOVGRF4962-55-88 09:43:00 Test Item Value Reference Range Interpretation Comments Lymphocytes # (test code = Lymphocytes 2.5 1.0-5.5 #) [facility] WorthFjrygvtZEONUIQMGE2388-22-72 09:43:00 Test Item Value Reference Range Interpretation Comments Monocytes (test code = Monocytes) 8.7 2.0-12.0 [facility] WorthKvkjkspLZWRLVXLMT2267-02-91 09:43:00 Test Item Value Reference Range Interpretation Comments Eosinophils (test code = 1.6 See_Comment [A utomated message] The Eosinophils) system which ge nerated this result tra nsmitted reference range : <=4.0. The reference r mary was not used to int erpret this result as normal/abnormal . [facility] WorthZeaklgwBJCXUMUKJB6843-09-65 09:43:00 Test Item Value Reference Range Interpretation Comments Basophils (test code = 0.4 See_Comment [Aut omated message] The Basophils) system which ge nerated this result tra nsmitted reference range : <=1.0. The reference r mary was not used to int erpret this result as normal/abnormal . [facility] WorthNlibuczMVFXYHRYLF7510-67-76 09:43:00 Test Item Value Reference Range Interpretation Comments Segs-Bands # (test code = Segs-Bands #) 10.1 1.5-8.1 [facility] WorthXopudveBCUFZMNZRZ7861-85-52 09:43:00 Test Item Value Reference Range Interpretation Comments Lymphocytes (test code = Lymphocytes) 17.7 20.0-40.0 [facility] WorthHpgmapbRSJHKKUSGL0979-81-53 09:43:00 Test Item Value Reference Range Interpretation Comments Segs (test code = Segs) 71.6 45.0-75.0 [facility] WorthErodmpvDJDMPRRXMG1046-57-08 09:43:00 Test Item Value Reference Range Interpretation Comments MPV (test code = MPV) 8.4 7.4-10.4 [facility] WorthHbcaxtkMZNOHZZFVJ9045-46-33 09:43:00 Test Item Value Reference Range Interpretation Comments Platelet (test code = Platelet) 211 133-450 [facility] WorthIpygxywWBWRVQCRQM9711-04-73 09:43:00 Test Item Value Reference Range Interpretation Comments WBC (test code = WBC) 14.1 3.7-10.4 [facility] WorthYdmavtwRTGVLYPNEG2043-13-81 09:43:00 Test Item Value Reference Range Interpretation Comments RBC (test code = RBC) 4.43 4.70-6.10 [facility] WorthXyylejaAGFQWCTXTF3569-89-65 09:43:00 Test Item Value Reference Range Interpretation Comments Hgb (test code = Hgb) 13.3 14.0-18.0 [facility] WorthVsxbexpBGBOZDNRPY5504-80-43 09:43:00 Test Item Value Reference Range Interpretation Comments MCV (test code = MCV) 90.8 80.0-94.0 [facility] WorthLkaaaagVATGQRAVOH5667-29-84 09:43:00 Test Item Value Reference Range Interpretation Comments MCHC (test code = MCHC) 33.1 32.0-36.0 [facility] WorthSyrxsyiOQJQUTOYDJ1997-96-32 09:43:00 Test Item Value Reference Range Interpretation Comments MCH (test code = MCH) 30.0 pg 27.0-31.0 [facility] WorthAeyakkeXSZSGYTHHN6597-16-35 09:43:00 Test Item Value Reference Range Interpretation Comments RDW (test code = RDW) 14.6 11.5-14.5 [facility] WorthVheccimLLUIDIWHLA5444-25-97 09:43:00 Test Item Value Reference Range Interpretation Comments Hct (test code = Hct) 40.2 42.0-54.0 [facility]2017-08-09 09:43:00 Test Item Value Reference Range Interpretation Comments eGFR (test code = eGFR) 53 [facility]2017-08-09 09:43:00 Test Item Value Reference Range Interpretation Comments Glucose Lvl (test code = Glucose Lvl) 116 70-99 [facility]2017-08-09 09:43:00 Test Item Value Reference Range Interpretation Comments BUN (test code = BUN) 18 7-22 [facility]2017-08-09 09:43:00 Test Item Value Reference Range Interpretation Comments Creatinine Lvl (test code = Creatinine 1.50 0.50-1.40 Lvl) [facility]2017-08-09 09:43:00 Test Item Value Reference Range Interpretation Comments Potassium Lvl (test code = Potassium 3.9 3.5-5.1 Lvl) [facility]2017-08-09 09:43:00 Test Item Value Reference Range Interpretation Comments Sodium Lvl (test code = Sodium Lvl) 137 135-145 [facility]2017-08-09 09:43:00 Test Item Value Reference Range Interpretation Comments Calcium Lvl (test code = Calcium Lvl) 7.9 8.5-10.5 [facility]2017-08-09 09:43:00 Test Item Value Reference Range Interpretation Comments CO2 (test code = CO2) 24 24-32 [facility]2017-08-09 09:43:00 Test Item Value Reference Range Interpretation Comments Chloride Lvl (test code = Chloride Lvl) 104 95-109 [facility]2017-08-09 09:43:00 Test Item Value Reference Range Interpretation Comments AGAP (test code = AGAP) 12.9 10.0-20.0 [facility] WorthIkjhwpbIOTHIGMQAJ7801-17-88 09:43:00 Test Item Value Reference Range Interpretation Comments Basophils # (test code 0.1 See_Comment [Aut omated message] The = Basophils #) system which generated this result tra nsmitted reference range : <=0.2. The reference r mary was not used to int erpret this result as normal/abnormal . [facility] WorthVzfdgmrUJQYJKAOPF4271-30-86 09:43:00 Test Item Value Reference Range Interpretation Comments Monocytes # (test code 1.2 See_Comment [Aut omated message] The = Monocytes #) system which generated this result tra nsmitted reference range : <=0.8. The reference r mary was not used to int erpret this result as normal/abnormal . [facility] WorthWhqiomzXNBEACNCPD8642-59-02 09:43:00 Test Item Value Reference Range Interpretation Comments Eosinophils # (test code 0.2 See_Comment [A utomated message] The = Eosinophils #) system whic h generated this result tra nsmitted reference range : <=0.5. The reference r mary was not used to int erpret this result as normal/abnormal . [facility] WorthCexnuplAQIVFJSCKX4760-56-87 09:43:00 Test Item Value Reference Range Interpretation Comments Lymphocytes # (test code = Lymphocytes 2.5 1.0-5.5 #) [facility] WorthPjfnilzNFFAMDGRPT6435-00-33 09:43:00 Test Item Value Reference Range Interpretation Comments Monocytes (test code = Monocytes) 8.7 2.0-12.0 [facility] WorthSiuoizuADAQVFTXOS6594-42-07 09:43:00 Test Item Value Reference Range Interpretation Comments Eosinophils (test code = 1.6 See_Comment [A utomated message] The Eosinophils) system which ge nerated this result tra nsmitted reference range : <=4.0. The reference r mary was not used to int erpret this result as normal/abnormal . [facility] WorthZhkrtrxKXHCXLPDPA1449-96-27 09:43:00 Test Item Value Reference Range Interpretation Comments Basophils (test code = 0.4 See_Comment [Aut omated message] The Basophils) system which ge nerated this result tra nsmitted reference range : <=1.0. The reference r mary was not used to int erpret this result as normal/abnormal . [facility] WorthIevkncaALKLPHCTVF1707-94-14 09:43:00 Test Item Value Reference Range Interpretation Comments Segs-Bands # (test code = Segs-Bands #) 10.1 1.5-8.1 [facility] WorthPdzuwllFHNXCLOZTH5994-63-90 09:43:00 Test Item Value Reference Range Interpretation Comments Lymphocytes (test code = Lymphocytes) 17.7 20.0-40.0 [facility] WorthLwvpognUKARMVPYPU0575-11-97 09:43:00 Test Item Value Reference Range Interpretation Comments Segs (test code = Segs) 71.6 45.0-75.0 [facility] WorthSldbocmZJBJRNGTFG6143-99-43 09:43:00 Test Item Value Reference Range Interpretation Comments MPV (test code = MPV) 8.4 7.4-10.4 [facility] WorthWoktuxaXYBBYTJMTU0472-56-69 09:43:00 Test Item Value Reference Range Interpretation Comments Platelet (test code = Platelet) 211 133-450 [facility] WorthSgwgvbrLWNASIOGSM9552-18-57 09:43:00 Test Item Value Reference Range Interpretation Comments WBC (test code = WBC) 14.1 3.7-10.4 [facility] WorthVfykyslCYOUNPLMAQ8189-07-15 09:43:00 Test Item Value Reference Range Interpretation Comments RBC (test code = RBC) 4.43 4.70-6.10 [facility] WorthVlyadetQSKRNKBPJI9783-46-75 09:43:00 Test Item Value Reference Range Interpretation Comments Hgb (test code = Hgb) 13.3 14.0-18.0 [facility] WorthCrcwwlqHPCPVWLSQC1915-46-27 09:43:00 Test Item Value Reference Range Interpretation Comments MCV (test code = MCV) 90.8 80.0-94.0 [facility] WorthHvivjxtKPVEPFRHAD5825-07-89 09:43:00 Test Item Value Reference Range Interpretation Comments MCHC (test code = MCHC) 33.1 32.0-36.0 [facility] WorthXfsznqwXLITVFREMK0531-56-81 09:43:00 Test Item Value Reference Range Interpretation Comments MCH (test code = MCH) 30.0 pg 27.0-31.0 [facility] WorthVwepbkxWSCHKPZLLS4699-07-96 09:43:00 Test Item Value Reference Range Interpretation Comments RDW (test code = RDW) 14.6 11.5-14.5 [facility] WorthPfwmcxlGRDZTROFES8105-24-95 09:43:00 Test Item Value Reference Range Interpretation Comments Hct (test code = Hct) 40.2 42.0-54.0 [facility]2017-08-09 09:43:00 Test Item Value Reference Range Interpretation Comments eGFR (test code = eGFR) 53 [facility]2017-08-09 09:43:00 Test Item Value Reference Range Interpretation Comments Glucose Lvl (test code = Glucose Lvl) 116 70-99 [facility]2017-08-09 09:43:00 Test Item Value Reference Range Interpretation Comments BUN (test code = BUN) 18 7-22 [facility]2017-08-09 09:43:00 Test Item Value Reference Range Interpretation Comments Creatinine Lvl (test code = Creatinine 1.50 0.50-1.40 Lvl) [facility]2017-08-09 09:43:00 Test Item Value Reference Range Interpretation Comments Potassium Lvl (test code = Potassium 3.9 3.5-5.1 Lvl) [facility]2017-08-09 09:43:00 Test Item Value Reference Range Interpretation Comments Sodium Lvl (test code = Sodium Lvl) 137 135-145 [facility]2017-08-09 09:43:00 Test Item Value Reference Range Interpretation Comments Calcium Lvl (test code = Calcium Lvl) 7.9 8.5-10.5 [facility]2017-08-09 09:43:00 Test Item Value Reference Range Interpretation Comments CO2 (test code = CO2) 24 24-32 [facility]2017-08-09 09:43:00 Test Item Value Reference Range Interpretation Comments Chloride Lvl (test code = Chloride Lvl) 104 95-109 [facility]2017-08-09 09:43:00 Test Item Value Reference Range Interpretation Comments AGAP (test code = AGAP) 12.9 10.0-20.0 [facility] WorthJrkfaecWWGFJDJHJR8945-91-01 09:43:00 Test Item Value Reference Range Interpretation Comments Basophils # (test code 0.1 See_Comment [Aut omated message] The = Basophils #) system which generated this result tra nsmitted reference range : <=0.2. The reference r mary was not used to int erpret this result as normal/abnormal . [facility] WorthBbruhjkSRJUTMHQWC0987-89-95 09:43:00 Test Item Value Reference Range Interpretation Comments Monocytes # (test code 1.2 See_Comment [Aut omated message] The = Monocytes #) system which generated this result tra nsmitted reference range : <=0.8. The reference r mary was not used to int erpret this result as normal/abnormal . [facility] WorthCbhaoavGQKKHONBRE7707-83-11 09:43:00 Test Item Value Reference Range Interpretation Comments Eosinophils # (test code 0.2 See_Comment [A utomated message] The = Eosinophils #) system whic h generated this result tra nsmitted reference range : <=0.5. The reference r mary was not used to int erpret this result as normal/abnormal . [facility] WorthZhbrzoaJQOXFRZLUR3322-69-86 09:43:00 Test Item Value Reference Range Interpretation Comments Lymphocytes # (test code = Lymphocytes 2.5 1.0-5.5 #) [facility] WorthGebjtywFFGAXRWQRR6606-82-03 09:43:00 Test Item Value Reference Range Interpretation Comments Monocytes (test code = Monocytes) 8.7 2.0-12.0 [facility] WorthBgnjqepVQBIHGRUHY3132-63-87 09:43:00 Test Item Value Reference Range Interpretation Comments Eosinophils (test code = 1.6 See_Comment [A utomated message] The Eosinophils) system which ge nerated this result tra nsmitted reference range : <=4.0. The reference r mary was not used to int erpret this result as normal/abnormal . [facility] WorthAznfgadSRASEXJVGE4172-13-15 09:43:00 Test Item Value Reference Range Interpretation Comments Basophils (test code = 0.4 See_Comment [Aut omated message] The Basophils) system which ge nerated this result tra nsmitted reference range : <=1.0. The reference r mary was not used to int erpret this result as normal/abnormal . [facility] WorthJrfxgeuQFNAOKSQAZ9848-49-28 09:43:00 Test Item Value Reference Range Interpretation Comments Segs-Bands # (test code = Segs-Bands #) 10.1 1.5-8.1 [facility] WorthNomjhtwIHXCXSJMLG0983-44-71 09:43:00 Test Item Value Reference Range Interpretation Comments Lymphocytes (test code = Lymphocytes) 17.7 20.0-40.0 [facility] WorthErjufviOWEDOEGJKI8839-34-86 09:43:00 Test Item Value Reference Range Interpretation Comments Segs (test code = Segs) 71.6 45.0-75.0 [facility] WorthKuywswbOVYLSNHVOH5708-49-56 09:43:00 Test Item Value Reference Range Interpretation Comments MPV (test code = MPV) 8.4 7.4-10.4 [facility] WorthAdqbhkqBLNPVYMAXD8228-48-55 09:43:00 Test Item Value Reference Range Interpretation Comments Platelet (test code = Platelet) 211 133-450 [facility] WorthHunjxsgZWFISRXHTL7057-69-24 09:43:00 Test Item Value Reference Range Interpretation Comments WBC (test code = WBC) 14.1 3.7-10.4 [facility] WorthVyfapkzCPGOACUREX4236-97-12 09:43:00 Test Item Value Reference Range Interpretation Comments RBC (test code = RBC) 4.43 4.70-6.10 [facility] WorthMliqtcgNTMJZVKKPU8798-56-63 09:43:00 Test Item Value Reference Range Interpretation Comments Hgb (test code = Hgb) 13.3 14.0-18.0 [facility] WorthGckjyssAHVFNAGYEM4369-53-40 09:43:00 Test Item Value Reference Range Interpretation Comments MCV (test code = MCV) 90.8 80.0-94.0 [facility] WorthNwmifyvLUVERJNNYE2557-80-58 09:43:00 Test Item Value Reference Range Interpretation Comments MCHC (test code = MCHC) 33.1 32.0-36.0 [facility] WorthHyqmkiqTLVXJEYZGB4317-72-53 09:43:00 Test Item Value Reference Range Interpretation Comments MCH (test code = MCH) 30.0 pg 27.0-31.0 [facility] WorthGydpieuDRYTAIUJPL7606-68-58 09:43:00 Test Item Value Reference Range Interpretation Comments RDW (test code = RDW) 14.6 11.5-14.5 [facility] WorthBjeqtfmJJXPSKNXMP0631-90-30 09:43:00 Test Item Value Reference Range Interpretation Comments Hct (test code = Hct) 40.2 42.0-54.0 [facility]2017-08-09 09:43:00 Test Item Value Reference Range Interpretation Comments eGFR (test code = eGFR) 53 [facility]2017-08-09 09:43:00 Test Item Value Reference Range Interpretation Comments Glucose Lvl (test code = Glucose Lvl) 116 70-99 [facility]2017-08-09 09:43:00 Test Item Value Reference Range Interpretation Comments BUN (test code = BUN) 18 7-22 [facility]2017-08-09 09:43:00 Test Item Value Reference Range Interpretation Comments Creatinine Lvl (test code = Creatinine 1.50 0.50-1.40 Lvl) [facility]2017-08-09 09:43:00 Test Item Value Reference Range Interpretation Comments Potassium Lvl (test code = Potassium 3.9 3.5-5.1 Lvl) [facility]2017-08-09 09:43:00 Test Item Value Reference Range Interpretation Comments Sodium Lvl (test code = Sodium Lvl) 137 135-145 [place] 081607-08-09 09:43:00 Test Item Value Reference Range Interpretation Comments Calcium Lvl (test code = Calcium Lvl) 7.9 8.5-10.5 [facility]2017-08-09 09:43:00 Test Item Value Reference Range Interpretation Comments CO2 (test code = CO2) - [facility]2017-08-09 09:43:00 Test Item Value Reference Range Interpretation Comments Chloride Lvl (test code = Chloride Lvl) 104 95-109 [facility]2017-08-09 09:43:00 Test Item Value Reference Range Interpretation Comments eGFR (test code = eGFR) 53 [facility]2017-08-09 09:43:00 Test Item Value Reference Range Interpretation Comments Glucose Lvl (test code = Glucose Lvl) 116 70-99 [facility]2017-08-09 09:43:00 Test Item Value Reference Range Interpretation Comments BUN (test code = BUN) 18 - [facility]2017-08-09 09:43:00 Test Item Value Reference Range Interpretation Comments Creatinine Lvl (test code = Creatinine 1.50 0.50-1.40 Lvl) [facility]2017-08-09 09:43:00 Test Item Value Reference Range Interpretation Comments Potassium Lvl (test code = Potassium 3.9 3.5-5.1 Lvl) [facility]2017-08-09 09:43:00 Test Item Value Reference Range Interpretation Comments Sodium Lvl (test code = Sodium Lvl) 137 135-145 [facility]2017-08-09 09:43:00 Test Item Value Reference Range Interpretation Comments Calcium Lvl (test code = Calcium Lvl) 7.9 8.5-10.5 [facility]2017-08-09 09:43:00 Test Item Value Reference Range Interpretation Comments CO2 (test code = CO2) 24 - [facility]2017-08-09 09:43:00 Test Item Value Reference Range Interpretation Comments AGAP (test code = AGAP) 12.9 10.0-20.0 [facility]2017-08-09 09:43:00 Test Item Value Reference Range Interpretation Comments Chloride Lvl (test code = Chloride Lvl) 104 95-109 [facility]2017-08-09 09:43:00 Test Item Value Reference Range Interpretation Comments AGAP (test code = AGAP) 12.9 10.0-20.0 [facility] WorthFuobqwlMUAHXZBZBK4991-37-91 09:43:00 Test Item Value Reference Range Interpretation Comments Basophils # (test code 0.1 See_Comment [Aut omated message] The = Basophils #) system which generated this result tra nsmitted reference range : <=0.2. The reference r mary was not used to int erpret this result as normal/abnormal . [facility] WorthSurgbchTASJXERCNP0247-86-51 09:43:00 Test Item Value Reference Range Interpretation Comments Monocytes # (test code 1.2 See_Comment [Aut omated message] The = Monocytes #) system which generated this result tra nsmitted reference range : <=0.8. The reference r mary was not used to int erpret this result as normal/abnormal . [facility] WorthKsytpozQUTEJCGGHL4051-17-31 09:43:00 Test Item Value Reference Range Interpretation Comments Eosinophils # (test code 0.2 See_Comment [A utomated message] The = Eosinophils #) system wh h generated this result tra nsmitted reference range : <=0.5. The reference r mary was not used to int erpret this result as normal/abnormal . [facility] WorthYcfuacmAFKYISVUQO9334-02-64 09:43:00 Test Item Value Reference Range Interpretation Comments Lymphocytes # (test code = Lymphocytes 2.5 1.0-5.5 #) [facility] WorthKyahcjrKTPZKLUTVP7453-84-54 09:43:00 Test Item Value Reference Range Interpretation Comments Monocytes (test code = Monocytes) 8.7 2.0-12.0 [facility] WorthPtlobepPAQMFLLIFC8561-93-60 09:43:00 Test Item Value Reference Range Interpretation Comments Eosinophils (test code = 1.6 See_Comment [A utomated message] The Eosinophils) system which ge nerated this result tra nsmitted reference range : <=4.0. The reference r mary was not used to int erpret this result as normal/abnormal . [facility] WorthUdvvcqtAXTPCIHPCK2292-08-80 09:43:00 Test Item Value Reference Range Interpretation Comments Basophils (test code = 0.4 See_Comment [Aut omated message] The Basophils) system which ge nerated this result tra nsmitted reference range : <=1.0. The reference r mary was not used to int erpret this result as normal/abnormal . [facility] WorthYyyzbwjWOUAQOGUHO9015-18-37 09:43:00 Test Item Value Reference Range Interpretation Comments Segs-Bands # (test code = Segs-Bands #) 10.1 1.5-8.1 [facility] WorthRgxkptcOSGRHILERE7069-16-98 09:43:00 Test Item Value Reference Range Interpretation Comments Basophils # (test code 0.1 See_Comment [Aut omated message] The = Basophils #) system which generated this result tra nsmitted reference range : <=0.2. The reference r mary was not used to int erpret this result as normal/abnormal . [facility] WorthMeuwvpoHDUHXHMVBJ8453-33-72 09:43:00 Test Item Value Reference Range Interpretation Comments Lymphocytes (test code = Lymphocytes) 17.7 20.0-40.0 [facility] WorthYxnmtruWZZXOKWBVQ7095-70-19 09:43:00 Test Item Value Reference Range Interpretation Comments Segs (test code = Segs) 71.6 45.0-75.0 [facility] WorthChrzfxuVVWNSZFIWW1480-36-39 09:43:00 Test Item Value Reference Range Interpretation Comments MPV (test code = MPV) 8.4 7.4-10.4 [facility] WorthXrmusoiGSNCNAFPXL5249-36-51 09:43:00 Test Item Value Reference Range Interpretation Comments Platelet (test code = Platelet) 211 133-450 [facility] WorthLcaskdkVDTTKCZZZI0176-67-94 09:43:00 Test Item Value Reference Range Interpretation Comments WBC (test code = WBC) 14.1 3.7-10.4 [facility] WorthRnrnitzRHJDGGOFWX8723-46-74 09:43:00 Test Item Value Reference Range Interpretation Comments RBC (test code = RBC) 4.43 4.70-6.10 [facility] WorthLzyahdeNOABKYKXJA0583-09-18 09:43:00 Test Item Value Reference Range Interpretation Comments Hgb (test code = Hgb) 13.3 14.0-18.0 [facility] WorthWrparecJFMORHGDQN1001-02-88 09:43:00 Test Item Value Reference Range Interpretation Comments MCV (test code = MCV) 90.8 80.0-94.0 [facility] WorthFdmcggeUEFHWFWADA3838-31-60 09:43:00 Test Item Value Reference Range Interpretation Comments MCHC (test code = MCHC) 33.1 32.0-36.0 [facility] WorthRmfflpoDFGPMJLNXU0791-14-27 09:43:00 Test Item Value Reference Range Interpretation Comments MCH (test code = MCH) 30.0 pg 27.0-31.0 [facility] WorthDpbpscuXQOWENLRMZ0974-88-38 09:43:00 Test Item Value Reference Range Interpretation Comments Monocytes # (test code 1.2 See_Comment [Aut omated message] The = Monocytes #) system which generated this result tra nsmitted reference range : <=0.8. The reference r mary was not used to int erpret this result as normal/abnormal . [facility] WorthVlomzygAWLBXDOFUA8809-40-84 09:43:00 Test Item Value Reference Range Interpretation Comments RDW (test code = RDW) 14.6 11.5-14.5 [facility] WorthWaknwaxSOOOHTHRBK9901-99-37 09:43:00 Test Item Value Reference Range Interpretation Comments Hct (test code = Hct) 40.2 42.0-54.0 [facility] WorthOatodkqMWJOMHQKDO9343-02-17 09:43:00 Test Item Value Reference Range Interpretation Comments Eosinophils # (test code 0.2 See_Comment [A utomated message] The = Eosinophils #) system whic h generated this result tra nsmitted reference range : <=0.5. The reference r mary was not used to int erpret this result as normal/abnormal . [facility] WorthHescaxiEEEALEEVTN1440-06-12 09:43:00 Test Item Value Reference Range Interpretation Comments Lymphocytes # (test code = Lymphocytes 2.5 1.0-5.5 #) [facility] WorthSzzylwqYLLOOSFETE7344-84-79 09:43:00 Test Item Value Reference Range Interpretation Comments Monocytes (test code = Monocytes) 8.7 2.0-12.0 [facility] WorthBnqoftmORBRLYGQUI9729-86-31 09:43:00 Test Item Value Reference Range Interpretation Comments Eosinophils (test code = 1.6 See_Comment [A utomated message] The Eosinophils) system which ge nerated this result tra nsmitted reference range : <=4.0. The reference r mary was not used to int erpret this result as normal/abnormal . [facility] WorthYuaqunvZPFCCWDWIL2897-69-93 09:43:00 Test Item Value Reference Range Interpretation Comments Basophils (test code = 0.4 See_Comment [Aut omated message] The Basophils) system which ge nerated this result tra nsmitted reference range : <=1.0. The reference r mary was not used to int erpret this result as normal/abnormal . [facility] WorthIyjvxhsBQRPGGJNFY9975-69-51 09:43:00 Test Item Value Reference Range Interpretation Comments Segs-Bands # (test code = Segs-Bands #) 10.1 1.5-8.1 [facility] WorthBvtngnfPDZBSBZTLS1272-97-31 09:43:00 Test Item Value Reference Range Interpretation Comments Lymphocytes (test code = Lymphocytes) 17.7 20.0-40.0 [facility] WorthSgqthkaXZSIIKDOBI5329-97-64 09:43:00 Test Item Value Reference Range Interpretation Comments Segs (test code = Segs) 71.6 45.0-75.0 [facility] WorthUotmhmoWAEJBYYXPW4696-09-62 09:43:00 Test Item Value Reference Range Interpretation Comments MPV (test code = MPV) 8.4 7.4-10.4 [facility] WorthGzieazcHOOOWYBLWI1272-28-14 09:43:00 Test Item Value Reference Range Interpretation Comments Platelet (test code = Platelet) 211 133-450 [facility]2017-08-09 09:43:00 Test Item Value Reference Range Interpretation Comments eGFR (test code = eGFR) 53 [facility] WorthMltwaajKCZIBQRMJU9804-70-89 09:43:00 Test Item Value Reference Range Interpretation Comments WBC (test code = WBC) 14.1 3.7-10.4 [facility]2017-08-09 09:43:00 Test Item Value Reference Range Interpretation Comments Glucose Lvl (test code = Glucose Lvl) 116 70-99 [facility]2017-08-09 09:43:00 Test Item Value Reference Range Interpretation Comments BUN (test code = BUN) 18 7-22 [facility]2017-08-09 09:43:00 Test Item Value Reference Range Interpretation Comments Creatinine Lvl (test code = Creatinine 1.50 0.50-1.40 Lvl) [facility]2017-08-09 09:43:00 Test Item Value Reference Range Interpretation Comments Potassium Lvl (test code = Potassium 3.9 3.5-5.1 Lvl) [facility]2017-08-09 09:43:00 Test Item Value Reference Range Interpretation Comments Sodium Lvl (test code = Sodium Lvl) 137 135-145 [facility]2017-08-09 09:43:00 Test Item Value Reference Range Interpretation Comments Calcium Lvl (test code = Calcium Lvl) 7.9 8.5-10.5 [facility]2017-08-09 09:43:00 Test Item Value Reference Range Interpretation Comments CO2 (test code = CO2) 24 24-32 [facility]2017-08-09 09:43:00 Test Item Value Reference Range Interpretation Comments Chloride Lvl (test code = Chloride Lvl) 104 95-109 [facility]2017-08-09 09:43:00 Test Item Value Reference Range Interpretation Comments AGAP (test code = AGAP) 12.9 10.0-20.0 [facility] WorthCsctectEJUTCBEFPW1254-48-24 09:43:00 Test Item Value Reference Range Interpretation Comments Basophils # (test code 0.1 See_Comment [Aut omated message] The = Basophils #) system which generated this result tra nsmitted reference range : <=0.2. The reference r mary was not used to int erpret this result as normal/abnormal . [facility] WorthCcyoccvHDALDNNQWR9992-54-78 09:43:00 Test Item Value Reference Range Interpretation Comments RBC (test code = RBC) 4.43 4.70-6.10 [facility] WorthBcjncwhBUNDPRGSUY0362-10-91 09:43:00 Test Item Value Reference Range Interpretation Comments Monocytes # (test code 1.2 See_Comment [Aut omated message] The = Monocytes #) system which generated this result tra nsmitted reference range : <=0.8. The reference r mary was not used to int erpret this result as normal/abnormal . [facility] WorthUyhvxfkGWPIJDGNQO2192-17-23 09:43:00 Test Item Value Reference Range Interpretation Comments Eosinophils # (test code 0.2 See_Comment [A utomated message] The = Eosinophils #) system whic h generated this result tra nsmitted reference range : <=0.5. The reference r mary was not used to int erpret this result as normal/abnormal . [facility] WorthWoflaqtDHQEBWWIXN7601-33-44 09:43:00 Test Item Value Reference Range Interpretation Comments Lymphocytes # (test code = Lymphocytes 2.5 1.0-5.5 #) [facility] WorthKutxpfkMWISESYPSV1892-18-80 09:43:00 Test Item Value Reference Range Interpretation Comments Monocytes (test code = Monocytes) 8.7 2.0-12.0 [facility] WorthXkmywuwAVNZIPCKVX8984-69-90 09:43:00 Test Item Value Reference Range Interpretation Comments Eosinophils (test code = 1.6 See_Comment [A utomated message] The Eosinophils) system which ge nerated this result tra nsmitted reference range : <=4.0. The reference r mary was not used to int erpret this result as normal/abnormal . [facility] WorthSerztmsJKBVPOVTVP5270-35-91 09:43:00 Test Item Value Reference Range Interpretation Comments Basophils (test code = 0.4 See_Comment [Aut omated message] The Basophils) system which ge nerated this result tra nsmitted reference range : <=1.0. The reference r mary was not used to int erpret this result as normal/abnormal . [facility] WorthNuffxfaHCGUBFNXDE3246-11-26 09:43:00 Test Item Value Reference Range Interpretation Comments Segs-Bands # (test code = Segs-Bands #) 10.1 1.5-8.1 [facility] WorthEwrdqxdMGBEGRMADH9856-16-39 09:43:00 Test Item Value Reference Range Interpretation Comments Lymphocytes (test code = Lymphocytes) 17.7 20.0-40.0 [facility] WorthTkmocrsXOWEZCGION6615-36-78 09:43:00 Test Item Value Reference Range Interpretation Comments Segs (test code = Segs) 71.6 45.0-75.0 [facility] WorthSngjajfDUZUPZKEGN6568-11-67 09:43:00 Test Item Value Reference Range Interpretation Comments MPV (test code = MPV) 8.4 7.4-10.4 [facility] WorthYbenbjmTJCUWHQXOE5476-43-32 09:43:00 Test Item Value Reference Range Interpretation Comments Hgb (test code = Hgb) 13.3 14.0-18.0 [facility] WorthVpuagtdPGDHGRMRYS4141-32-25 09:43:00 Test Item Value Reference Range Interpretation Comments Platelet (test code = Platelet) 211 133-450 [facility] WorthZizqzgiYPCYNWKXPP4922-04-07 09:43:00 Test Item Value Reference Range Interpretation Comments WBC (test code = WBC) 14.1 3.7-10.4 [facility] WorthTbfginnRHUIXHYCNZ0759-26-95 09:43:00 Test Item Value Reference Range Interpretation Comments RBC (test code = RBC) 4.43 4.70-6.10 [facility] WorthHhyieuoMPYHLYLREA3150-94-92 09:43:00 Test Item Value Reference Range Interpretation Comments Hgb (test code = Hgb) 13.3 14.0-18.0 [facility] WorthYtcqssyUANJCDHVIK0766-11-85 09:43:00 Test Item Value Reference Range Interpretation Comments MCV (test code = MCV) 90.8 80.0-94.0 [facility] WorthXpkwdulXWBCXWESCX9892-08-39 09:43:00 Test Item Value Reference Range Interpretation Comments MCHC (test code = MCHC) 33.1 32.0-36.0 [facility] WorthZmcwrgvTCCAYMAWJQ3234-83-33 09:43:00 Test Item Value Reference Range Interpretation Comments MCH (test code = MCH) 30.0 pg 27.0-31.0 [facility] WorthTbsuqjfAXVUQCMMXQ0995-65-65 09:43:00 Test Item Value Reference Range Interpretation Comments RDW (test code = RDW) 14.6 11.5-14.5 [facility] WorthHuxqwytTAAYKCYFOV4980-97-91 09:43:00 Test Item Value Reference Range Interpretation Comments Hct (test code = Hct) 40.2 42.0-54.0 [facility] WorthInpowyrMDPRUAYRVQ4277-44-07 09:43:00 Test Item Value Reference Range Interpretation Comments MCV (test code = MCV) 90.8 80.0-94.0 [facility] WorthKrancfuVWPCUFGFBK6984-62-05 09:43:00 Test Item Value Reference Range Interpretation Comments MCHC (test code = MCHC) 33.1 32.0-36.0 [facility] WorthWhcskprPXYEVKWZUF9455-31-51 09:43:00 Test Item Value Reference Range Interpretation Comments MCH (test code = MCH) 30.0 pg 27.0-31.0 [facility] WorthIczrkqfZZPGIRCYIX0829-14-48 09:43:00 Test Item Value Reference Range Interpretation Comments RDW (test code = RDW) 14.6 11.5-14.5 [facility] WorthMviyedpGIVYIPZAAU1732-65-31 09:43:00 Test Item Value Reference Range Interpretation Comments Hct (test code = Hct) 40.2 42.0-54.0 [facility]2017-08-09 09:43:00 Test Item Value Reference Range Interpretation Comments eGFR (test code = eGFR) 53 [facility]2017-08-09 09:43:00 Test Item Value Reference Range Interpretation Comments Glucose Lvl (test code = Glucose Lvl) 116 70-99 [facility]2017-08-09 09:43:00 Test Item Value Reference Range Interpretation Comments BUN (test code = BUN) 18 7-22 [facility]2017-08-09 09:43:00 Test Item Value Reference Range Interpretation Comments Creatinine Lvl (test code = Creatinine 1.50 0.50-1.40 Lvl) [facility]2017-08-09 09:43:00 Test Item Value Reference Range Interpretation Comments Potassium Lvl (test code = Potassium 3.9 3.5-5.1 Lvl) [facility]2017-08-09 09:43:00 Test Item Value Reference Range Interpretation Comments Sodium Lvl (test code = Sodium Lvl) 137 135-145 [facility]2017-08-09 09:43:00 Test Item Value Reference Range Interpretation Comments Calcium Lvl (test code = Calcium Lvl) 7.9 8.5-10.5 [facility]2017-08-09 09:43:00 Test Item Value Reference Range Interpretation Comments CO2 (test code = CO2) 24 24-32 [facility]2017-08-09 09:43:00 Test Item Value Reference Range Interpretation Comments Chloride Lvl (test code = Chloride Lvl) 104 95-109 [facility]2017-08-09 09:43:00 Test Item Value Reference Range Interpretation Comments AGAP (test code = AGAP) 12.9 10.0-20.0 [facility] WorthJyyhuuoEEUJCRQOJF2747-30-07 09:43:00 Test Item Value Reference Range Interpretation Comments Basophils # (test code 0.1 See_Comment [Aut omated message] The = Basophils #) system which generated this result tra nsmitted reference range : <=0.2. The reference r mary was not used to int erpret this result as normal/abnormal . [facility] WorthOwktigrDSYSJMPFZS4556-14-00 09:43:00 Test Item Value Reference Range Interpretation Comments Monocytes # (test code 1.2 See_Comment [Aut omated message] The = Monocytes #) system which generated this result tra nsmitted reference range : <=0.8. The reference r mary was not used to int erpret this result as normal/abnormal . [facility] WorthDqpmfmpCYQPTAFKDC5510-01-97 09:43:00 Test Item Value Reference Range Interpretation Comments Eosinophils # (test code 0.2 See_Comment [A utomated message] The = Eosinophils #) system whic h generated this result tra nsmitted reference range : <=0.5. The reference r mary was not used to int erpret this result as normal/abnormal . [facility] WorthWqgqcjkVHWWUOHYQZ9999-20-06 09:43:00 Test Item Value Reference Range Interpretation Comments Lymphocytes # (test code = Lymphocytes 2.5 1.0-5.5 #) [facility] WorthLenzfldLGDNEDZEHK5341-42-99 09:43:00 Test Item Value Reference Range Interpretation Comments Monocytes (test code = Monocytes) 8.7 2.0-12.0 [facility] WorthLpioifoMFCUYZQPEN2840-25-56 09:43:00 Test Item Value Reference Range Interpretation Comments Eosinophils (test code = 1.6 See_Comment [A utomated message] The Eosinophils) system which ge nerated this result tra nsmitted reference range : <=4.0. The reference r mary was not used to int erpret this result as normal/abnormal . [facility] WorthBijoicpAUHOBWVWRR6754-19-79 09:43:00 Test Item Value Reference Range Interpretation Comments Basophils (test code = 0.4 See_Comment [Aut omated message] The Basophils) system which ge nerated this result tra nsmitted reference range : <=1.0. The reference r mary was not used to int erpret this result as normal/abnormal . [facility] WorthXutsrbjXEHKFSREYX8110-17-91 09:43:00 Test Item Value Reference Range Interpretation Comments Segs-Bands # (test code = Segs-Bands #) 10.1 1.5-8.1 [facility] WorthFuhzdssZXORKBOBYD6944-23-89 09:43:00 Test Item Value Reference Range Interpretation Comments Lymphocytes (test code = Lymphocytes) 17.7 20.0-40.0 [facility] WorthWkfvpjxTTHDHAKBLH6945-44-45 09:43:00 Test Item Value Reference Range Interpretation Comments Segs (test code = Segs) 71.6 45.0-75.0 [facility] WorthWmxkfhfLDBUMGNGIV6384-17-99 09:43:00 Test Item Value Reference Range Interpretation Comments MPV (test code = MPV) 8.4 7.4-10.4 [facility] WorthOqxjjpaROCLZGITQQ3992-58-20 09:43:00 Test Item Value Reference Range Interpretation Comments Platelet (test code = Platelet) 211 133-450 [facility] WorthPzbwdzcBOUBKPJMVG6687-28-37 09:43:00 Test Item Value Reference Range Interpretation Comments WBC (test code = WBC) 14.1 3.7-10.4 [facility] WorthJqoqdczBWXCNSZILH3164-19-74 09:43:00 Test Item Value Reference Range Interpretation Comments RBC (test code = RBC) 4.43 4.70-6.10 [facility] WorthCheosrjKLZPJPLQWN1665-81-18 09:43:00 Test Item Value Reference Range Interpretation Comments Hgb (test code = Hgb) 13.3 14.0-18.0 [facility] WorthEisbhyjHMSEMXXPKB8654-54-34 09:43:00 Test Item Value Reference Range Interpretation Comments MCV (test code = MCV) 90.8 80.0-94.0 [facility] WorthArrrvilADHZQSZIHT0213-24-92 09:43:00 Test Item Value Reference Range Interpretation Comments MCHC (test code = MCHC) 33.1 32.0-36.0 [facility] WorthGpozszkXYZUKRNTON5253-57-52 09:43:00 Test Item Value Reference Range Interpretation Comments MCH (test code = MCH) 30.0 pg 27.0-31.0 [facility] WorthOktkkcsMVBKOEDPVX0466-40-39 09:43:00 Test Item Value Reference Range Interpretation Comments RDW (test code = RDW) 14.6 11.5-14.5 [facility] WorthHlqkldyDULBUOELNG1961-97-02 09:43:00 Test Item Value Reference Range Interpretation Comments Hct (test code = Hct) 40.2 42.0-54.0 [facility]2017-08-09 09:43:00 Test Item Value Reference Range Interpretation Comments eGFR (test code = eGFR) 53 [facility]2017-08-09 09:43:00 Test Item Value Reference Range Interpretation Comments Glucose Lvl (test code = Glucose Lvl) 116 70-99 [facility]2017-08-09 09:43:00 Test Item Value Reference Range Interpretation Comments BUN (test code = BUN) 18 7-22 [facility]2017-08-09 09:43:00 Test Item Value Reference Range Interpretation Comments Creatinine Lvl (test code = Creatinine 1.50 0.50-1.40 Lvl) [facility]2017-08-09 09:43:00 Test Item Value Reference Range Interpretation Comments Potassium Lvl (test code = Potassium 3.9 3.5-5.1 Lvl) [facility]2017-08-09 09:43:00 Test Item Value Reference Range Interpretation Comments Sodium Lvl (test code = Sodium Lvl) 137 135-145 [facility]2017-08-09 09:43:00 Test Item Value Reference Range Interpretation Comments Calcium Lvl (test code = Calcium Lvl) 7.9 8.5-10.5 [facility]2017-08-09 09:43:00 Test Item Value Reference Range Interpretation Comments CO2 (test code = CO2) 24 24-32 [facility]2017-08-09 09:43:00 Test Item Value Reference Range Interpretation Comments Chloride Lvl (test code = Chloride Lvl) 104 95-109 [facility]2017-08-09 09:43:00 Test Item Value Reference Range Interpretation Comments AGAP (test code = AGAP) 12.9 10.0-20.0 [facility] WorthBkmlkcrFALTUMURZW8035-97-26 09:43:00 Test Item Value Reference Range Interpretation Comments Basophils # (test code 0.1 See_Comment [Aut omated message] The = Basophils #) system which generated this result tra nsmitted reference range : <=0.2. The reference r mary was not used to int erpret this result as normal/abnormal . [facility] WorthTkxwwyzZGHROFYQAP2380-08-73 09:43:00 Test Item Value Reference Range Interpretation Comments Monocytes # (test code 1.2 See_Comment [Aut omated message] The = Monocytes #) system which generated this result tra nsmitted reference range : <=0.8. The reference r mary was not used to int erpret this result as normal/abnormal . [facility] WorthMpqwsedJOVDVUTZDL3165-23-55 09:43:00 Test Item Value Reference Range Interpretation Comments Eosinophils # (test code 0.2 See_Comment [A utomated message] The = Eosinophils #) system whic h generated this result tra nsmitted reference range : <=0.5. The reference r mary was not used to int erpret this result as normal/abnormal . [facility] WorthDrvfqayZMTSGVRIEA6522-12-08 09:43:00 Test Item Value Reference Range Interpretation Comments Lymphocytes # (test code = Lymphocytes 2.5 1.0-5.5 #) [facility] WorthDstgipeJXFEEIQSSP2471-17-31 09:43:00 Test Item Value Reference Range Interpretation Comments Monocytes (test code = Monocytes) 8.7 2.0-12.0 [facility] WorthFatqmgzBMYELBOFZL2490-65-50 09:43:00 Test Item Value Reference Range Interpretation Comments Eosinophils (test code = 1.6 See_Comment [A utomated message] The Eosinophils) system which ge nerated this result tra nsmitted reference range : <=4.0. The reference r mary was not used to int erpret this result as normal/abnormal . [facility] WorthVmswgxmNXSQELLOJK4162-09-47 09:43:00 Test Item Value Reference Range Interpretation Comments Basophils (test code = 0.4 See_Comment [Aut omated message] The Basophils) system which ge nerated this result tra nsmitted reference range : <=1.0. The reference r mary was not used to int erpret this result as normal/abnormal . [facility] WorthBpypeyaQXJPNNPXLX1143-96-08 09:43:00 Test Item Value Reference Range Interpretation Comments Segs-Bands # (test code = Segs-Bands #) 10.1 1.5-8.1 [facility] WorthRycgoirHXDFTGGCTV6461-78-30 09:43:00 Test Item Value Reference Range Interpretation Comments Lymphocytes (test code = Lymphocytes) 17.7 20.0-40.0 [facility] WorthGzavxnoKWCHRSZKRE5626-23-71 09:43:00 Test Item Value Reference Range Interpretation Comments Segs (test code = Segs) 71.6 45.0-75.0 [facility] WorthTyhoapjDDAQPTPRIS7763-21-95 09:43:00 Test Item Value Reference Range Interpretation Comments MPV (test code = MPV) 8.4 7.4-10.4 [facility] WorthTvbvkthJSBHOPPUIF6534-52-47 09:43:00 Test Item Value Reference Range Interpretation Comments Platelet (test code = Platelet) 211 133-450 [facility] WorthRviwumbEBODXJXPDX6775-24-49 09:43:00 Test Item Value Reference Range Interpretation Comments WBC (test code = WBC) 14.1 3.7-10.4 [facility] WorthZtidmeoNSICKZNYEW6382-22-95 09:43:00 Test Item Value Reference Range Interpretation Comments RBC (test code = RBC) 4.43 4.70-6.10 [facility] WorthPckzgdeWEKYJVTVNY9561-86-81 09:43:00 Test Item Value Reference Range Interpretation Comments Hgb (test code = Hgb) 13.3 14.0-18.0 [facility] WorthAjvlpjhSBNABEUTOF2742-78-40 09:43:00 Test Item Value Reference Range Interpretation Comments MCV (test code = MCV) 90.8 80.0-94.0 [facility] WorthYeaccibFSVRJTVVOR7177-54-51 09:43:00 Test Item Value Reference Range Interpretation Comments MCHC (test code = MCHC) 33.1 32.0-36.0 [facility] WorthBuzxxfuJCCBYDTHLE4597-74-28 09:43:00 Test Item Value Reference Range Interpretation Comments MCH (test code = MCH) 30.0 pg 27.0-31.0 [facility] WorthXktptofGOZMKLEYLO5081-13-18 09:43:00 Test Item Value Reference Range Interpretation Comments RDW (test code = RDW) 14.6 11.5-14.5 [facility] WorthBzsbwueASPVACPMBZ6539-02-70 09:43:00 Test Item Value Reference Range Interpretation Comments Hct (test code = Hct) 40.2 42.0-54.0 [facility]2017-08-09 09:43:00 Test Item Value Reference Range Interpretation Comments eGFR (test code = eGFR) 53 [facility]2017-08-09 09:43:00 Test Item Value Reference Range Interpretation Comments Glucose Lvl (test code = Glucose Lvl) 116 70-99 [facility]2017-08-09 09:43:00 Test Item Value Reference Range Interpretation Comments BUN (test code = BUN) 18 7-22 [facility]2017-08-09 09:43:00 Test Item Value Reference Range Interpretation Comments Creatinine Lvl (test code = Creatinine 1.50 0.50-1.40 Lvl) [facility]2017-08-09 09:43:00 Test Item Value Reference Range Interpretation Comments Potassium Lvl (test code = Potassium 3.9 3.5-5.1 Lvl) [facility]2017-08-09 09:43:00 Test Item Value Reference Range Interpretation Comments Sodium Lvl (test code = Sodium Lvl) 137 135-145 [facility]2017-08-09 09:43:00 Test Item Value Reference Range Interpretation Comments Calcium Lvl (test code = Calcium Lvl) 7.9 8.5-10.5 [facility]2017-08-09 09:43:00 Test Item Value Reference Range Interpretation Comments CO2 (test code = CO2) 24 24-32 [facility]2017-08-09 09:43:00 Test Item Value Reference Range Interpretation Comments Chloride Lvl (test code = Chloride Lvl) 104 95-109 [facility]2017-08-09 09:43:00 Test Item Value Reference Range Interpretation Comments AGAP (test code = AGAP) 12.9 10.0-20.0 [facility] WorthSxwbddgMIVOTPCCHW1623-90-71 09:43:00 Test Item Value Reference Range Interpretation Comments Basophils # (test code 0.1 See_Comment [Aut omated message] The = Basophils #) system which generated this result tra nsmitted reference range : <=0.2. The reference r mary was not used to int erpret this result as normal/abnormal . [facility] WorthMybxskkXCOKNFZHGI8875-03-33 09:43:00 Test Item Value Reference Range Interpretation Comments Monocytes # (test code 1.2 See_Comment [Aut omated message] The = Monocytes #) system which generated this result tra nsmitted reference range : <=0.8. The reference r mary was not used to int erpret this result as normal/abnormal . [facility] WorthCmxkdxwIFGUPQIXWP9311-39-92 09:43:00 Test Item Value Reference Range Interpretation Comments Eosinophils # (test code 0.2 See_Comment [A utomated message] The = Eosinophils #) system whic h generated this result tra nsmitted reference range : <=0.5. The reference r mary was not used to int erpret this result as normal/abnormal . [facility] WorthSdjrlfdWWOAUQHVAJ4744-22-24 09:43:00 Test Item Value Reference Range Interpretation Comments Lymphocytes # (test code = Lymphocytes 2.5 1.0-5.5 #) [facility] WorthGfcivlhYKDZVHQDUV2998-80-96 09:43:00 Test Item Value Reference Range Interpretation Comments Monocytes (test code = Monocytes) 8.7 2.0-12.0 [facility] WorthZofoukfACLGBFLGBC8759-81-54 09:43:00 Test Item Value Reference Range Interpretation Comments Eosinophils (test code = 1.6 See_Comment [A utomated message] The Eosinophils) system which ge nerated this result tra nsmitted reference range : <=4.0. The reference r mary was not used to int erpret this result as normal/abnormal . [facility] WorthQftnfueGDLZPYVJUV8454-01-72 09:43:00 Test Item Value Reference Range Interpretation Comments Basophils (test code = 0.4 See_Comment [Aut omated message] The Basophils) system which ge nerated this result tra nsmitted reference range : <=1.0. The reference r mary was not used to int erpret this result as normal/abnormal . [facility] WorthYsfpvkvXWKTLCAIDP0674-27-29 09:43:00 Test Item Value Reference Range Interpretation Comments Segs-Bands # (test code = Segs-Bands #) 10.1 1.5-8.1 [facility] WorthCdthcqdJGMDLDMJPE3800-87-07 09:43:00 Test Item Value Reference Range Interpretation Comments Lymphocytes (test code = Lymphocytes) 17.7 20.0-40.0 [facility] WorthDgwruewZMCXSABOCR6962-09-56 09:43:00 Test Item Value Reference Range Interpretation Comments Segs (test code = Segs) 71.6 45.0-75.0 [facility] WorthMsgcnaoJNHIZBMQEL1308-63-00 09:43:00 Test Item Value Reference Range Interpretation Comments MPV (test code = MPV) 8.4 7.4-10.4 [facility] WorthWswupujMJGSVYKDDB5849-26-64 09:43:00 Test Item Value Reference Range Interpretation Comments Platelet (test code = Platelet) 211 133-450 [facility] WorthIenswldWQRTCAJOQW4026-67-44 09:43:00 Test Item Value Reference Range Interpretation Comments WBC (test code = WBC) 14.1 3.7-10.4 [facility] WorthXxrzjreALMOHQKVYV0962-23-04 09:43:00 Test Item Value Reference Range Interpretation Comments RBC (test code = RBC) 4.43 4.70-6.10 [facility] WorthCpmvmbyKACUWSWQYQ2603-75-54 09:43:00 Test Item Value Reference Range Interpretation Comments Hgb (test code = Hgb) 13.3 14.0-18.0 [facility] WorthXeruftgUTHFJZRWLV4471-70-38 09:43:00 Test Item Value Reference Range Interpretation Comments MCV (test code = MCV) 90.8 80.0-94.0 [facility] WorthSomvbzjKLQOHURIAJ1820-45-47 09:43:00 Test Item Value Reference Range Interpretation Comments MCHC (test code = MCHC) 33.1 32.0-36.0 [facility] WorthYmodojpWKMNPRLJFI4625-92-65 09:43:00 Test Item Value Reference Range Interpretation Comments MCH (test code = MCH) 30.0 pg 27.0-31.0 [facility] WorthTfkhfzoDIFKQAPVPX2106-76-04 09:43:00 Test Item Value Reference Range Interpretation Comments RDW (test code = RDW) 14.6 11.5-14.5 [facility] WorthKmnundqIIDQRQREVL5831-43-35 09:43:00 Test Item Value Reference Range Interpretation Comments Hct (test code = Hct) 40.2 42.0-54.0 [facility]2017-08-09 09:43:00 Test Item Value Reference Range Interpretation Comments eGFR (test code = eGFR) 53 [facility]2017-08-09 09:43:00 Test Item Value Reference Range Interpretation Comments Glucose Lvl (test code = Glucose Lvl) 116 70-99 [facility]2017-08-09 09:43:00 Test Item Value Reference Range Interpretation Comments BUN (test code = BUN) 18 7-22 [facility]2017-08-09 09:43:00 Test Item Value Reference Range Interpretation Comments Creatinine Lvl (test code = Creatinine 1.50 0.50-1.40 Lvl) [facility]2017-08-09 09:43:00 Test Item Value Reference Range Interpretation Comments Potassium Lvl (test code = Potassium 3.9 3.5-5.1 Lvl) [facility]2017-08-09 09:43:00 Test Item Value Reference Range Interpretation Comments Sodium Lvl (test code = Sodium Lvl) 137 135-145 [facility]2017-08-09 09:43:00 Test Item Value Reference Range Interpretation Comments Calcium Lvl (test code = Calcium Lvl) 7.9 8.5-10.5 [facility]2017-08-09 09:43:00 Test Item Value Reference Range Interpretation Comments CO2 (test code = CO2) 24 24-32 [facility]2017-08-09 09:43:00 Test Item Value Reference Range Interpretation Comments Chloride Lvl (test code = Chloride Lvl) 104 95-109 [facility]2017-08-09 09:43:00 Test Item Value Reference Range Interpretation Comments AGAP (test code = AGAP) 12.9 10.0-20.0 [facility] WorthRmcyobqGSOEOFDYNE2414-75-35 09:43:00 Test Item Value Reference Range Interpretation Comments Basophils # (test code 0.1 See_Comment [Aut omated message] The = Basophils #) system which generated this result tra nsmitted reference range : <=0.2. The reference r mary was not used to int erpret this result as normal/abnormal . [facility] WorthIxztntoMNIARPCLDY1267-84-61 09:43:00 Test Item Value Reference Range Interpretation Comments Monocytes # (test code 1.2 See_Comment [Aut omated message] The = Monocytes #) system which generated this result tra nsmitted reference range : <=0.8. The reference r mary was not used to int erpret this result as normal/abnormal . [facility] WorthTslpxlyPEILMQHIJT6536-89-77 09:43:00 Test Item Value Reference Range Interpretation Comments Eosinophils # (test code 0.2 See_Comment [A utomated message] The = Eosinophils #) system whic h generated this result tra nsmitted reference range : <=0.5. The reference r mary was not used to int erpret this result as normal/abnormal . [facility] WorthNblxgujOPTIZAKFTD2170-03-53 09:43:00 Test Item Value Reference Range Interpretation Comments Lymphocytes # (test code = Lymphocytes 2.5 1.0-5.5 #) [facility] WorthYhbecvnTLHWEVBIXE5493-38-60 09:43:00 Test Item Value Reference Range Interpretation Comments Monocytes (test code = Monocytes) 8.7 2.0-12.0 [facility] WorthMpmoqwvLCQUTURWZC5397-26-21 09:43:00 Test Item Value Reference Range Interpretation Comments Eosinophils (test code = 1.6 See_Comment [A utomated message] The Eosinophils) system which ge nerated this result tra nsmitted reference range : <=4.0. The reference r mary was not used to int erpret this result as normal/abnormal . [facility] WorthQwzeudxBSSUXMPYHR7999-45-18 09:43:00 Test Item Value Reference Range Interpretation Comments Basophils (test code = 0.4 See_Comment [Aut omated message] The Basophils) system which ge nerated this result tra nsmitted reference range : <=1.0. The reference r mary was not used to int erpret this result as normal/abnormal . [facility] WorthMiiglqqOTLWPIYDOF0531-37-54 09:43:00 Test Item Value Reference Range Interpretation Comments Segs-Bands # (test code = Segs-Bands #) 10.1 1.5-8.1 [facility] WorthBfyivtdJVIRTCLULP8256-42-83 09:43:00 Test Item Value Reference Range Interpretation Comments Lymphocytes (test code = Lymphocytes) 17.7 20.0-40.0 [facility] WorthCahodjmZWFNLJLIJT1177-21-85 09:43:00 Test Item Value Reference Range Interpretation Comments Segs (test code = Segs) 71.6 45.0-75.0 [facility] WorthBstbasiAIFIYTUAWH7316-13-37 09:43:00 Test Item Value Reference Range Interpretation Comments MPV (test code = MPV) 8.4 7.4-10.4 [facility] WorthUavejqpAEGPNBGHJR8993-93-70 09:43:00 Test Item Value Reference Range Interpretation Comments Platelet (test code = Platelet) 211 133-450 [facility] [facility] WorthJgbodyvNVQOFYSPYT5283-93-94 09:43:00 Test Item Value Reference Range Interpretation Comments WBC (test code = WBC) 14.1 3.7-10.4 [facility] WorthXxwmrcxPANVTNQUNC1371-61-55 09:43:00 Test Item Value Reference Range Interpretation Comments RBC (test code = RBC) 4.43 4.70-6.10 [facility] WorthEkvdfnjBQJNTGYKJC6086-83-12 09:43:00 Test Item Value Reference Range Interpretation Comments Hgb (test code = Hgb) 13.3 14.0-18.0 [facility] WorthPsiqyosOWWXKNAZSF4551-57-44 09:43:00 Test Item Value Reference Range Interpretation Comments MCV (test code = MCV) 90.8 80.0-94.0 [facility] WorthAuayrjgLEBLKVBUNG2289-52-68 09:43:00 Test Item Value Reference Range Interpretation Comments MCHC (test code = MCHC) 33.1 32.0-36.0 [facility] WorthBucohbkTXDJTAAYXV7554-00-24 09:43:00 Test Item Value Reference Range Interpretation Comments MCH (test code = MCH) 30.0 pg 27.0-31.0 [facility] WorthPhmhwazMALAOMIYEG6633-75-18 09:43:00 Test Item Value Reference Range Interpretation Comments RDW (test code = RDW) 14.6 11.5-14.5 [facility] WorthLojywcrYGUSDSEJOP2779-94-37 09:43:00 Test Item Value Reference Range Interpretation Comments Hct (test code = Hct) 40.2 42.0-54.0 [facility]2017-08-09 09:43:00 Test Item Value Reference Range Interpretation Comments eGFR (test code = eGFR) 53 [facility]2017-08-09 09:43:00 Test Item Value Reference Range Interpretation Comments Glucose Lvl (test code = Glucose Lvl) 116 70-99 [facility]2017-08-09 09:43:00 Test Item Value Reference Range Interpretation Comments BUN (test code = BUN) 18 7-22 [facility]2017-08-09 09:43:00 Test Item Value Reference Range Interpretation Comments Creatinine Lvl (test code = Creatinine 1.50 0.50-1.40 Lvl) [facility]2017-08-09 09:43:00 Test Item Value Reference Range Interpretation Comments Potassium Lvl (test code = Potassium 3.9 3.5-5.1 Lvl) [facility]2017-08-09 09:43:00 Test Item Value Reference Range Interpretation Comments Sodium Lvl (test code = Sodium Lvl) 137 135-145 [facility]2017-08-09 09:43:00 Test Item Value Reference Range Interpretation Comments Calcium Lvl (test code = Calcium Lvl) 7.9 8.5-10.5 [facility]2017-08-09 09:43:00 Test Item Value Reference Range Interpretation Comments CO2 (test code = CO2) 24 24-32 [facility]2017-08-09 09:43:00 Test Item Value Reference Range Interpretation Comments Chloride Lvl (test code = Chloride Lvl) 104 95-109 [facility]2017-08-09 09:43:00 Test Item Value Reference Range Interpretation Comments AGAP (test code = AGAP) 12.9 10.0-20.0 [facility] WorthUzumexxGQOWRMPYPI7376-31-27 09:43:00 Test Item Value Reference Range Interpretation Comments Basophils # (test code 0.1 See_Comment [Aut omated message] The = Basophils #) system which generated this result tra nsmitted reference range : <=0.2. The reference r mary was not used to int erpret this result as normal/abnormal . [facility] WorthGfipikwTYCRBEHUSO5997-73-07 09:43:00 Test Item Value Reference Range Interpretation Comments Monocytes # (test code 1.2 See_Comment [Aut omated message] The = Monocytes #) system which generated this result tra nsmitted reference range : <=0.8. The reference r mary was not used to int erpret this result as normal/abnormal . [facility] WorthIqdafkoEIJGVEWYQP2599-74-36 09:43:00 Test Item Value Reference Range Interpretation Comments Eosinophils # (test code 0.2 See_Comment [A utomated message] The = Eosinophils #) system whic h generated this result tra nsmitted reference range : <=0.5. The reference r mary was not used to int erpret this result as normal/abnormal . [facility] WorthYipgrfmTHJJQBPJOV3747-10-76 09:43:00 Test Item Value Reference Range Interpretation Comments Lymphocytes # (test code = Lymphocytes 2.5 1.0-5.5 #) [facility] WorthEulyiebZTREBZFTDN1125-11-60 09:43:00 Test Item Value Reference Range Interpretation Comments Monocytes (test code = Monocytes) 8.7 2.0-12.0 [facility] WorthQbdimltVZZAYIJFXC7090-07-13 09:43:00 Test Item Value Reference Range Interpretation Comments Eosinophils (test code = 1.6 See_Comment [A utomated message] The Eosinophils) system which ge nerated this result tra nsmitted reference range : <=4.0. The reference r mary was not used to int erpret this result as normal/abnormal . [facility] WorthJikimhfNZHFAQRGOJ5774-15-19 09:43:00 Test Item Value Reference Range Interpretation Comments Basophils (test code = 0.4 See_Comment [Aut omated message] The Basophils) system which ge nerated this result tra nsmitted reference range : <=1.0. The reference r mary was not used to int erpret this result as normal/abnormal . [facility] WorthNpcjxvuOOXOPTXNVM1184-54-08 09:43:00 Test Item Value Reference Range Interpretation Comments Segs-Bands # (test code = Segs-Bands #) 10.1 1.5-8.1 [facility] WorthFzxlrwcXNAYOZPUKD4329-21-42 09:43:00 Test Item Value Reference Range Interpretation Comments Lymphocytes (test code = Lymphocytes) 17.7 20.0-40.0 [facility] WorthWeyrjopJQDIQWGVGO4857-92-75 09:43:00 Test Item Value Reference Range Interpretation Comments Segs (test code = Segs) 71.6 45.0-75.0 [facility] WorthCaqvcucZMSQFNFYIJ2320-33-58 09:43:00 Test Item Value Reference Range Interpretation Comments MPV (test code = MPV) 8.4 7.4-10.4 [facility] WorthMlofpivXDJQWYKCUZ6551-81-42 09:43:00 Test Item Value Reference Range Interpretation Comments Platelet (test code = Platelet) 211 133-450 [facility] WorthHrfsyqmQGLEIFYSZO2095-15-82 09:43:00 Test Item Value Reference Range Interpretation Comments WBC (test code = WBC) 14.1 3.7-10.4 [facility] WorthUfydklpURSJZMHUZG2224-66-42 09:43:00 Test Item Value Reference Range Interpretation Comments RBC (test code = RBC) 4.43 4.70-6.10 [facility] WorthYruqktrWUQWDTNVAQ3491-56-39 09:43:00 Test Item Value Reference Range Interpretation Comments Hgb (test code = Hgb) 13.3 14.0-18.0 [facility] WorthQezswxrZOBWDWETKL1034-32-22 09:43:00 Test Item Value Reference Range Interpretation Comments MCV (test code = MCV) 90.8 80.0-94.0 [facility] WorthPooxunrRMBSRDEZDS3937-33-42 09:43:00 Test Item Value Reference Range Interpretation Comments MCHC (test code = MCHC) 33.1 32.0-36.0 [facility] WorthOeruiqiDRLQRHNMRA7982-13-41 09:43:00 Test Item Value Reference Range Interpretation Comments MCH (test code = MCH) 30.0 pg 27.0-31.0 [facility] WorthNeeahpsMWXPTWDEEJ4141-12-53 09:43:00 Test Item Value Reference Range Interpretation Comments RDW (test code = RDW) 14.6 11.5-14.5 [facility] WorthNfdjojnQMOUIIUCPV5680-89-92 09:43:00 Test Item Value Reference Range Interpretation Comments Hct (test code = Hct) 40.2 42.0-54.0 [facility]2017-08-09 09:43:00 Test Item Value Reference Range Interpretation Comments eGFR (test code = eGFR) 53 [facility]2017-08-09 09:43:00 Test Item Value Reference Range Interpretation Comments Glucose Lvl (test code = Glucose Lvl) 116 70-99 [facility]2017-08-09 09:43:00 Test Item Value Reference Range Interpretation Comments BUN (test code = BUN) 18 7-22 [place] 081607-08-09 09:43:00 Test Item Value Reference Range Interpretation Comments Creatinine Lvl (test code = Creatinine 1.50 0.50-1.40 Lvl) [facility]2017-08-09 09:43:00 Test Item Value Reference Range Interpretation Comments Potassium Lvl (test code = Potassium 3.9 3.5-5.1 Lvl) [facility]2017-08-09 09:43:00 Test Item Value Reference Range Interpretation Comments Sodium Lvl (test code = Sodium Lvl) 137 135-145 [facility]2017-08-09 09:43:00 Test Item Value Reference Range Interpretation Comments Calcium Lvl (test code = Calcium Lvl) 7.9 8.5-10.5 [facility]2017-08-09 09:43:00 Test Item Value Reference Range Interpretation Comments CO2 (test code = CO2) 24 24-32 [facility]2017-08-09 09:43:00 Test Item Value Reference Range Interpretation Comments Chloride Lvl (test code = Chloride Lvl) 104 95-109 [facility]2017-08-09 09:43:00 Test Item Value Reference Range Interpretation Comments AGAP (test code = AGAP) 12.9 10.0-20.0 [facility] WorthDiugwrwZIJIUGTVZL7878-60-16 09:43:00 Test Item Value Reference Range Interpretation Comments Basophils # (test code 0.1 See_Comment [Aut omated message] The = Basophils #) system which generated this result tra nsmitted reference range : <=0.2. The reference r mary was not used to int erpret this result as normal/abnormal . [facility] WorthKsezxnnMKHPKPOULJ8589-48-11 09:43:00 Test Item Value Reference Range Interpretation Comments Monocytes # (test code 1.2 See_Comment [Aut omated message] The = Monocytes #) system which generated this result tra nsmitted reference range : <=0.8. The reference r mary was not used to int erpret this result as normal/abnormal . [facility] WorthSgskypvWTTHJHRFEX4812-35-11 09:43:00 Test Item Value Reference Range Interpretation Comments Eosinophils # (test code 0.2 See_Comment [A utomated message] The = Eosinophils #) system whic h generated this result tra nsmitted reference range : <=0.5. The reference r mary was not used to int erpret this result as normal/abnormal . [facility] WorthNnfoivjWBGEARLNJT2686-65-85 09:43:00 Test Item Value Reference Range Interpretation Comments Lymphocytes # (test code = Lymphocytes 2.5 1.0-5.5 #) [facility] WorthKyenhuoVKBIGMCXCW8368-07-33 09:43:00 Test Item Value Reference Range Interpretation Comments Monocytes (test code = Monocytes) 8.7 2.0-12.0 [facility] WorthStnlxxrRTNONBRBXU7552-51-34 09:43:00 Test Item Value Reference Range Interpretation Comments Eosinophils (test code = 1.6 See_Comment [A utomated message] The Eosinophils) system which ge nerated this result tra nsmitted reference range : <=4.0. The reference r mary was not used to int erpret this result as normal/abnormal . [facility] WorthZunboxxLSBELAKGDA0761-68-49 09:43:00 Test Item Value Reference Range Interpretation Comments Basophils (test code = 0.4 See_Comment [Aut omated message] The Basophils) system which ge nerated this result tra nsmitted reference range : <=1.0. The reference r mary was not used to int erpret this result as normal/abnormal . [facility] WorthHwyoutnMLPOWHRAZT7834-74-02 09:43:00 Test Item Value Reference Range Interpretation Comments Segs-Bands # (test code = Segs-Bands #) 10.1 1.5-8.1 [facility] WorthDbsonlrQUAXCXALHJ0750-50-22 09:43:00 Test Item Value Reference Range Interpretation Comments Lymphocytes (test code = Lymphocytes) 17.7 20.0-40.0 [facility] WorthPbtgnsqWIGNZJEYQX2217-32-79 09:43:00 Test Item Value Reference Range Interpretation Comments Segs (test code = Segs) 71.6 45.0-75.0 [facility] WorthGnpmzmjWVPWYUUFIG7034-30-31 09:43:00 Test Item Value Reference Range Interpretation Comments MPV (test code = MPV) 8.4 7.4-10.4 [facility] WorthZxcjntvGWTIVDVYAI8647-53-47 09:43:00 Test Item Value Reference Range Interpretation Comments Platelet (test code = Platelet) 211 133-450 [facility] WorthHfdjpezBNMVAEGLWH9232-22-72 09:43:00 Test Item Value Reference Range Interpretation Comments WBC (test code = WBC) 14.1 3.7-10.4 [facility] WorthOxeihnvRZXBPGCBYB1047-17-98 09:43:00 Test Item Value Reference Range Interpretation Comments RBC (test code = RBC) 4.43 4.70-6.10 [facility] WorthFgyzfflAWTDPMLMYY8972-81-82 09:43:00 Test Item Value Reference Range Interpretation Comments Hgb (test code = Hgb) 13.3 14.0-18.0 [facility] WorthAexdaffZKQXMHBCCX2510-89-17 09:43:00 Test Item Value Reference Range Interpretation Comments MCV (test code = MCV) 90.8 80.0-94.0 [facility] WorthOjcpiefZOOHMVCZNO5617-04-57 09:43:00 Test Item Value Reference Range Interpretation Comments MCHC (test code = MCHC) 33.1 32.0-36.0 [facility] WorthYqrhrwlZZYGVZHRCN8873-19-38 09:43:00 Test Item Value Reference Range Interpretation Comments MCH (test code = MCH) 30.0 pg 27.0-31.0 [facility] WorthCmqusepISYMBPIQER8729-20-74 09:43:00 Test Item Value Reference Range Interpretation Comments RDW (test code = RDW) 14.6 11.5-14.5 [facility] WorthEsiiapkZASAEQQIBG7720-94-95 09:43:00 Test Item Value Reference Range Interpretation Comments Hct (test code = Hct) 40.2 42.0-54.0 [facility]2017-08-09 09:43:00 Test Item Value Reference Range Interpretation Comments eGFR (test code = eGFR) 53 [facility] GXRSU7267-12-94 09:43:00 Test Item Value Reference Range Interpretation Comments Glucose Lvl (test code = Glucose Lvl) 116 70-99 [facility]2017-08-09 09:43:00 Test Item Value Reference Range Interpretation Comments BUN (test code = BUN) 18 7-22 [facility]2017-08-09 09:43:00 Test Item Value Reference Range Interpretation Comments Creatinine Lvl (test code = Creatinine 1.50 0.50-1.40 Lvl) [facility]2017-08-09 09:43:00 Test Item Value Reference Range Interpretation Comments Potassium Lvl (test code = Potassium 3.9 3.5-5.1 Lvl) [facility]2017-08-09 09:43:00 Test Item Value Reference Range Interpretation Comments Sodium Lvl (test code = Sodium Lvl) 137 135-145 [facility]2017-08-09 09:43:00 Test Item Value Reference Range Interpretation Comments Calcium Lvl (test code = Calcium Lvl) 7.9 8.5-10.5 [facility]2017-08-09 09:43:00 Test Item Value Reference Range Interpretation Comments CO2 (test code = CO2) 24 24-32 [facility]2017-08-09 09:43:00 Test Item Value Reference Range Interpretation Comments Chloride Lvl (test code = Chloride Lvl) 104 95-109 [facility]2017-08-09 09:43:00 Test Item Value Reference Range Interpretation Comments AGAP (test code = AGAP) 12.9 10.0-20.0 [facility] WorthZueqtzkUYSFQMIQQY7570-53-72 09:43:00 Test Item Value Reference Range Interpretation Comments Basophils # (test code 0.1 See_Comment [Aut omated message] The = Basophils #) system which generated this result tra nsmitted reference range : <=0.2. The reference r mary was not used to int erpret this result as normal/abnormal . [facility] WorthJgoqshaGOMCOVZLTP6394-38-10 09:43:00 Test Item Value Reference Range Interpretation Comments Monocytes # (test code 1.2 See_Comment [Aut omated message] The = Monocytes #) system which generated this result tra nsmitted reference range : <=0.8. The reference r mary was not used to int erpret this result as normal/abnormal . [facility] WorthWcubjfaDRPUMBOSST9499-06-43 09:43:00 Test Item Value Reference Range Interpretation Comments Eosinophils # (test code 0.2 See_Comment [A utomated message] The = Eosinophils #) system whic h generated this result tra nsmitted reference range : <=0.5. The reference r mary was not used to int erpret this result as normal/abnormal . [facility] WorthQdvvpshDYYAINGDFW1916-32-06 09:43:00 Test Item Value Reference Range Interpretation Comments Lymphocytes # (test code = Lymphocytes 2.5 1.0-5.5 #) [facility] WorthYuqvjtfVVZPLISZEX7953-72-01 09:43:00 Test Item Value Reference Range Interpretation Comments Monocytes (test code = Monocytes) 8.7 2.0-12.0 [facility] WorthKijwqfcUWUPXWVRKR2649-56-64 09:43:00 Test Item Value Reference Range Interpretation Comments Eosinophils (test code = 1.6 See_Comment [A utomated message] The Eosinophils) system which ge nerated this result tra nsmitted reference range : <=4.0. The reference r mary was not used to int erpret this result as normal/abnormal . [facility] WorthZsfrtsrKFZPOMHTJZ9578-05-15 09:43:00 Test Item Value Reference Range Interpretation Comments Basophils (test code = 0.4 See_Comment [Aut omated message] The Basophils) system which ge nerated this result tra nsmitted reference range : <=1.0. The reference r mary was not used to int erpret this result as normal/abnormal . [facility] WorthYijxeukYMCLZRRGWU4652-76-44 09:43:00 Test Item Value Reference Range Interpretation Comments Segs-Bands # (test code = Segs-Bands #) 10.1 1.5-8.1 [facility] WorthDnidruoDKPGQDKNYO5178-30-66 09:43:00 Test Item Value Reference Range Interpretation Comments Lymphocytes (test code = Lymphocytes) 17.7 20.0-40.0 [facility] WorthYrsulouRAXTDBGXBE5132-49-84 09:43:00 Test Item Value Reference Range Interpretation Comments Segs (test code = Segs) 71.6 45.0-75.0 [facility] WorthKvbpoqnWKGSKCJOXV9751-71-72 09:43:00 Test Item Value Reference Range Interpretation Comments MPV (test code = MPV) 8.4 7.4-10.4 [facility] WorthPbeopvnJRIUCRNHLV8860-86-17 09:43:00 Test Item Value Reference Range Interpretation Comments Platelet (test code = Platelet) 211 133-450 [facility] WorthFsvptqbMGBNYTLHBD9897-16-71 09:43:00 Test Item Value Reference Range Interpretation Comments WBC (test code = WBC) 14.1 3.7-10.4 [facility] WorthZviglqmQNJEYMPGYM1919-80-36 09:43:00 Test Item Value Reference Range Interpretation Comments RBC (test code = RBC) 4.43 4.70-6.10 [facility] WorthCekykxnXKAOKXSYUG7915-13-21 09:43:00 Test Item Value Reference Range Interpretation Comments Hgb (test code = Hgb) 13.3 14.0-18.0 [facility] WorthJmtgbdkHAEZOKUESU4009-92-52 09:43:00 Test Item Value Reference Range Interpretation Comments MCV (test code = MCV) 90.8 80.0-94.0 [facility] WorthBilriubREFRHPQUXA6998-26-92 09:43:00 Test Item Value Reference Range Interpretation Comments MCHC (test code = MCHC) 33.1 32.0-36.0 [facility] WorthWzrnrkqZKDZYNVRHL5876-43-63 09:43:00 Test Item Value Reference Range Interpretation Comments MCH (test code = MCH) 30.0 pg 27.0-31.0 [facility] WorthVxjgzweQEDBAXRDTQ1537-16-48 09:43:00 Test Item Value Reference Range Interpretation Comments RDW (test code = RDW) 14.6 11.5-14.5 [facility] WorthVwiqnomHUNORVNVQW3973-13-74 09:43:00 Test Item Value Reference Range Interpretation Comments Hct (test code = Hct) 40.2 42.0-54.0 [facility]2017-08-09 09:43:00 Test Item Value Reference Range Interpretation Comments eGFR (test code = eGFR) 53 [facility]2017-08-09 09:43:00 Test Item Value Reference Range Interpretation Comments Glucose Lvl (test code = Glucose Lvl) 116 70-99 [facility]2017-08-09 09:43:00 Test Item Value Reference Range Interpretation Comments BUN (test code = BUN) 18 7-22 [facility]2017-08-09 09:43:00 Test Item Value Reference Range Interpretation Comments Creatinine Lvl (test code = Creatinine 1.50 0.50-1.40 Lvl) [facility]2017-08-09 09:43:00 Test Item Value Reference Range Interpretation Comments Potassium Lvl (test code = Potassium 3.9 3.5-5.1 Lvl) [facility]2017-08-09 09:43:00 Test Item Value Reference Range Interpretation Comments Sodium Lvl (test code = Sodium Lvl) 137 135-145 [facility]2017-08-09 09:43:00 Test Item Value Reference Range Interpretation Comments Calcium Lvl (test code = Calcium Lvl) 7.9 8.5-10.5 [facility]2017-08-09 09:43:00 Test Item Value Reference Range Interpretation Comments CO2 (test code = CO2) 24 24-32 [facility]2017-08-09 09:43:00 Test Item Value Reference Range Interpretation Comments Chloride Lvl (test code = Chloride Lvl) 104 95-109 [facility]2017-08-09 09:43:00 Test Item Value Reference Range Interpretation Comments AGAP (test code = AGAP) 12.9 10.0-20.0 [facility] WorthSjfwadoPPZLHORSXT1238-98-43 09:43:00 Test Item Value Reference Range Interpretation Comments Basophils # (test code 0.1 See_Comment [Aut omated message] The = Basophils #) system which generated this result tra nsmitted reference range : <=0.2. The reference r mary was not used to int erpret this result as normal/abnormal . [facility] WorthVyxbbpiCJPXZZGHOY4620-41-01 09:43:00 Test Item Value Reference Range Interpretation Comments Monocytes # (test code 1.2 See_Comment [Aut omated message] The = Monocytes #) system which generated this result tra nsmitted reference range : <=0.8. The reference r mary was not used to int erpret this result as normal/abnormal . [facility] WorthOgnntuzBBYZKQSKXF1955-36-82 09:43:00 Test Item Value Reference Range Interpretation Comments Eosinophils # (test code 0.2 See_Comment [A utomated message] The = Eosinophils #) system whic h generated this result tra nsmitted reference range : <=0.5. The reference r mary was not used to int erpret this result as normal/abnormal . [facility] WorthPxtskxjYMXSIXSTKP3836-52-18 09:43:00 Test Item Value Reference Range Interpretation Comments Lymphocytes # (test code = Lymphocytes 2.5 1.0-5.5 #) [facility] WorthDfwoibsDPCYHZJRUP0004-45-65 09:43:00 Test Item Value Reference Range Interpretation Comments Monocytes (test code = Monocytes) 8.7 2.0-12.0 [facility] WorthErermzpDZEBRNMZMZ3040-65-66 09:43:00 Test Item Value Reference Range Interpretation Comments Eosinophils (test code = 1.6 See_Comment [A utomated message] The Eosinophils) system which ge nerated this result tra nsmitted reference range : <=4.0. The reference r mary was not used to int erpret this result as normal/abnormal . [facility] WorthCitzddeDOGLQDDYOP2523-86-53 09:43:00 Test Item Value Reference Range Interpretation Comments Basophils (test code = 0.4 See_Comment [Aut omated message] The Basophils) system which ge nerated this result tra nsmitted reference range : <=1.0. The reference r mary was not used to int erpret this result as normal/abnormal . [facility] WorthFckhammXXECWGCFUR5017-43-69 09:43:00 Test Item Value Reference Range Interpretation Comments Segs-Bands # (test code = Segs-Bands #) 10.1 1.5-8.1 [facility] WorthByodgejUYNPEXALND3356-68-05 09:43:00 Test Item Value Reference Range Interpretation Comments Lymphocytes (test code = Lymphocytes) 17.7 20.0-40.0 [facility] WorthYtreeskAYGZPNULEB9433-21-73 09:43:00 Test Item Value Reference Range Interpretation Comments Segs (test code = Segs) 71.6 45.0-75.0 [facility] WorthPhpixydMWJUNQMYMA5687-12-88 09:43:00 Test Item Value Reference Range Interpretation Comments MPV (test code = MPV) 8.4 7.4-10.4 [facility] WorthZlukqxlCUONVQJZGY4122-11-60 09:43:00 Test Item Value Reference Range Interpretation Comments Platelet (test code = Platelet) 211 133-450 [facility] WorthQxdfvefKSVOURUGIM1178-38-42 09:43:00 Test Item Value Reference Range Interpretation Comments WBC (test code = WBC) 14.1 3.7-10.4 [facility] WorthLrwxqadPPUIDHOHND8253-71-05 09:43:00 Test Item Value Reference Range Interpretation Comments RBC (test code = RBC) 4.43 4.70-6.10 [facility] WorthEuduxkfRLTVQJNWII7943-82-59 09:43:00 Test Item Value Reference Range Interpretation Comments Hgb (test code = Hgb) 13.3 14.0-18.0 [facility] WorthHyfhmyjJINIOPTOIR4267-15-11 09:43:00 Test Item Value Reference Range Interpretation Comments MCV (test code = MCV) 90.8 80.0-94.0 [facility] WorthJhbfzwgHVHQDSQUYD7841-96-53 09:43:00 Test Item Value Reference Range Interpretation Comments MCHC (test code = MCHC) 33.1 32.0-36.0 [facility] WorthQrxyuoyOHVWUMHFTK2879-01-88 09:43:00 Test Item Value Reference Range Interpretation Comments MCH (test code = MCH) 30.0 pg 27.0-31.0 [facility] WorthRfegolxDCMZGGSSMU6221-27-84 09:43:00 Test Item Value Reference Range Interpretation Comments RDW (test code = RDW) 14.6 11.5-14.5 [facility] WorthNkdrfjwJZFEWNGZQP4229-93-56 09:43:00 Test Item Value Reference Range Interpretation Comments Hct (test code = Hct) 40.2 42.0-54.0 [facility]2017-08-09 09:43:00 Test Item Value Reference Range Interpretation Comments eGFR (test code = eGFR) 53 [facility]2017-08-09 09:43:00 Test Item Value Reference Range Interpretation Comments Glucose Lvl (test code = Glucose Lvl) 116 70-99 [facility]2017-08-09 09:43:00 Test Item Value Reference Range Interpretation Comments BUN (test code = BUN) 18 7-22 [facility]2017-08-09 09:43:00 Test Item Value Reference Range Interpretation Comments Creatinine Lvl (test code = Creatinine 1.50 0.50-1.40 Lvl) [facility]2017-08-09 09:43:00 Test Item Value Reference Range Interpretation Comments Potassium Lvl (test code = Potassium 3.9 3.5-5.1 Lvl) [facility]2017-08-09 09:43:00 Test Item Value Reference Range Interpretation Comments Sodium Lvl (test code = Sodium Lvl) 137 135-145 [facility]2017-08-09 09:43:00 Test Item Value Reference Range Interpretation Comments Calcium Lvl (test code = Calcium Lvl) 7.9 8.5-10.5 [facility]2017-08-09 09:43:00 Test Item Value Reference Range Interpretation Comments CO2 (test code = CO2) 24 24-32 [facility]2017-08-09 09:43:00 Test Item Value Reference Range Interpretation Comments Chloride Lvl (test code = Chloride Lvl) 104 95-109 [facility]2017-08-09 09:43:00 Test Item Value Reference Range Interpretation Comments AGAP (test code = AGAP) 12.9 10.0-20.0 [facility] WorthKhuywqpJBCXBUYMGP8058-76-96 09:43:00 Test Item Value Reference Range Interpretation Comments Basophils # (test code 0.1 See_Comment [Aut omated message] The = Basophils #) system which generated this result tra nsmitted reference range : <=0.2. The reference r mary was not used to int erpret this result as normal/abnormal . [facility]2017-08-09 09:43:00 Test Item Value Reference Range Interpretation Comments eGFR (test code = eGFR) 53 [facility]2017-08-09 09:43:00 Test Item Value Reference Range Interpretation Comments Glucose Lvl (test code = Glucose Lvl) 116 70-99 [facility]2017-08-09 09:43:00 Test Item Value Reference Range Interpretation Comments BUN (test code = BUN) 18 7-22 [facility]2017-08-09 09:43:00 Test Item Value Reference Range Interpretation Comments Creatinine Lvl (test code = Creatinine 1.50 0.50-1.40 Lvl) [facility]2017-08-09 09:43:00 Test Item Value Reference Range Interpretation Comments Potassium Lvl (test code = Potassium 3.9 3.5-5.1 Lvl) [facility]2017-08-09 09:43:00 Test Item Value Reference Range Interpretation Comments Sodium Lvl (test code = Sodium Lvl) 137 135-145 [facility]2017-08-09 09:43:00 Test Item Value Reference Range Interpretation Comments Calcium Lvl (test code = Calcium Lvl) 7.9 8.5-10.5 [facility]2017-08-09 09:43:00 Test Item Value Reference Range Interpretation Comments CO2 (test code = CO2) 24 24-32 [facility] WorthUgvzsyaFAPJODJEVX1489-86-34 09:43:00 Test Item Value Reference Range Interpretation Comments Monocytes # (test code 1.2 See_Comment [Aut omated message] The = Monocytes #) system which generated this result tra nsmitted reference range : <=0.8. The reference r mary was not used to int erpret this result as normal/abnormal . [facility]2017-08-09 09:43:00 Test Item Value Reference Range Interpretation Comments Chloride Lvl (test code = Chloride Lvl) 104 95-109 [facility]2017-08-09 09:43:00 Test Item Value Reference Range Interpretation Comments AGAP (test code = AGAP) 12.9 10.0-20.0 [facility] WorthArchqgaMKUWXKXYKR5545-51-28 09:43:00 Test Item Value Reference Range Interpretation Comments Basophils # (test code 0.1 See_Comment [Aut omated message] The = Basophils #) system which generated this result tra nsmitted reference range : <=0.2. The reference r mary was not used to int erpret this result as normal/abnormal . [facility] WorthKkpppntPVJUEURAKB1089-13-55 09:43:00 Test Item Value Reference Range Interpretation Comments Monocytes # (test code 1.2 See_Comment [Aut omated message] The = Monocytes #) system which generated this result tra nsmitted reference range : <=0.8. The reference r mary was not used to int erpret this result as normal/abnormal . [facility] WorthPmeajrzLAEVCRMKKN4181-31-75 09:43:00 Test Item Value Reference Range Interpretation Comments Eosinophils # (test code 0.2 See_Comment [A utomated message] The = Eosinophils #) system whic h generated this result tra nsmitted reference range : <=0.5. The reference r mary was not used to int erpret this result as normal/abnormal . [facility] WorthCjyasmdJHKPWSLTRL2403-42-43 09:43:00 Test Item Value Reference Range Interpretation Comments Lymphocytes # (test code = Lymphocytes 2.5 1.0-5.5 #) [facility] WorthJpdupupREUWZYHVIE2604-56-80 09:43:00 Test Item Value Reference Range Interpretation Comments Monocytes (test code = Monocytes) 8.7 2.0-12.0 [facility] WorthVthpzkkBIBBMUKYWC6700-05-45 09:43:00 Test Item Value Reference Range Interpretation Comments Eosinophils (test code = 1.6 See_Comment [A utomated message] The Eosinophils) system which ge nerated this result tra nsmitted reference range : <=4.0. The reference r mary was not used to int erpret this result as normal/abnormal . [facility] WorthYmbhrpmYOBVCPFIRH6289-68-75 09:43:00 Test Item Value Reference Range Interpretation Comments Basophils (test code = 0.4 See_Comment [Aut omated message] The Basophils) system which ge nerated this result tra nsmitted reference range : <=1.0. The reference r mary was not used to int erpret this result as normal/abnormal . [facility] WorthUxhmkdlXUOJMYFQLC0832-76-98 09:43:00 Test Item Value Reference Range Interpretation Comments Segs-Bands # (test code = Segs-Bands #) 10.1 1.5-8.1 [facility] WorthSldftjhJGVOPZKPUT8204-02-18 09:43:00 Test Item Value Reference Range Interpretation Comments Eosinophils # (test code 0.2 See_Comment [A utomated message] The = Eosinophils #) system whic h generated this result tra nsmitted reference range : <=0.5. The reference r mary was not used to int erpret this result as normal/abnormal . [facility] WorthXrqxdshCTHRSCXLGX7062-48-55 09:43:00 Test Item Value Reference Range Interpretation Comments Lymphocytes (test code = Lymphocytes) 17.7 20.0-40.0 [facility] WorthDzidpdmNOGXZAMKGJ1559-70-03 09:43:00 Test Item Value Reference Range Interpretation Comments Segs (test code = Segs) 71.6 45.0-75.0 [facility] WorthEtxurpkXHBVNHYXKO7721-84-34 09:43:00 Test Item Value Reference Range Interpretation Comments MPV (test code = MPV) 8.4 7.4-10.4 [facility] WorthGeizcsjAGXWIMHBLC8067-25-10 09:43:00 Test Item Value Reference Range Interpretation Comments Platelet (test code = Platelet) 211 133-450 [facility] WorthGkqvqgcPLGQDCLAKU0702-87-11 09:43:00 Test Item Value Reference Range Interpretation Comments WBC (test code = WBC) 14.1 3.7-10.4 [facility] WorthAvfasqvJNIFXYIPQM3144-08-69 09:43:00 Test Item Value Reference Range Interpretation Comments RBC (test code = RBC) 4.43 4.70-6.10 [facility] WorthJciemomLCKFWRKQVG9782-19-97 09:43:00 Test Item Value Reference Range Interpretation Comments Hgb (test code = Hgb) 13.3 14.0-18.0 [facility] WorthAbvhcsmVNEWLCLIJN0051-95-20 09:43:00 Test Item Value Reference Range Interpretation Comments MCV (test code = MCV) 90.8 80.0-94.0 [facility] WorthHafglwbBLJRKXLGVD0797-31-76 09:43:00 Test Item Value Reference Range Interpretation Comments MCHC (test code = MCHC) 33.1 32.0-36.0 [facility] WorthZadrygjPBRGGRFALZ5306-56-60 09:43:00 Test Item Value Reference Range Interpretation Comments MCH (test code = MCH) 30.0 pg 27.0-31.0 [facility] WorthDzfgamjVMYEJNQWWY1708-68-44 09:43:00 Test Item Value Reference Range Interpretation Comments Lymphocytes # (test code = Lymphocytes 2.5 1.0-5.5 #) [facility] WorthSrawsnxUKHKZFJPHM7246-43-41 09:43:00 Test Item Value Reference Range Interpretation Comments RDW (test code = RDW) 14.6 11.5-14.5 [facility] WorthVrbdivwILYSHLUKSK8501-47-39 09:43:00 Test Item Value Reference Range Interpretation Comments Hct (test code = Hct) 40.2 42.0-54.0 [facility] WorthWeiiybeYUZAFQSZOZ2203-96-39 09:43:00 Test Item Value Reference Range Interpretation Comments Monocytes (test code = Monocytes) 8.7 2.0-12.0 [facility] WorthQimnfwfPTRIXJHOFX4103-75-09 09:43:00 Test Item Value Reference Range Interpretation Comments Eosinophils (test code = 1.6 See_Comment [A utomated message] The Eosinophils) system which ge nerated this result tra nsmitted reference range : <=4.0. The reference r mary was not used to int erpret this result as normal/abnormal . [facility] WorthEeurgamGJRVJRIPBT1073-86-16 09:43:00 Test Item Value Reference Range Interpretation Comments Basophils (test code = 0.4 See_Comment [Aut omated message] The Basophils) system which ge nerated this result tra nsmitted reference range : <=1.0. The reference r mary was not used to int erpret this result as normal/abnormal . [facility] WorthMuadmtjVWKYRPVCOZ6499-88-34 09:43:00 Test Item Value Reference Range Interpretation Comments Segs-Bands # (test code = Segs-Bands #) 10.1 1.5-8.1 [facility] WorthYbvdnpqCNXDTEEEGU6515-35-56 09:43:00 Test Item Value Reference Range Interpretation Comments Lymphocytes (test code = Lymphocytes) 17.7 20.0-40.0 [facility] WorthVgqbmzsUERJULCTCQ8960-83-74 09:43:00 Test Item Value Reference Range Interpretation Comments Segs (test code = Segs) 71.6 45.0-75.0 [facility] WorthFuzdjusZXLQSYLIJB2011-57-39 09:43:00 Test Item Value Reference Range Interpretation Comments MPV (test code = MPV) 8.4 7.4-10.4 [facility] WorthCatlldfNJPWATANZA5521-58-13 09:43:00 Test Item Value Reference Range Interpretation Comments Platelet (test code = Platelet) 211 133-450 [facility] WorthIvnmffbEPFEOJFBES9911-60-73 09:43:00 Test Item Value Reference Range Interpretation Comments WBC (test code = WBC) 14.1 3.7-10.4 [facility] WorthIsacxbtPVQREPCHRS5204-70-65 09:43:00 Test Item Value Reference Range Interpretation Comments RBC (test code = RBC) 4.43 4.70-6.10 [facility]2017-08-09 09:43:00 Test Item Value Reference Range Interpretation Comments eGFR (test code = eGFR) 53 [facility] WorthNopvmjzJJPOIKFTCI8400-44-66 09:43:00 Test Item Value Reference Range Interpretation Comments Hgb (test code = Hgb) 13.3 14.0-18.0 [facility]2017-08-09 09:43:00 Test Item Value Reference Range Interpretation Comments Glucose Lvl (test code = Glucose Lvl) 116 70-99 [facility]2017-08-09 09:43:00 Test Item Value Reference Range Interpretation Comments BUN (test code = BUN) 18 7-22 [facility]2017-08-09 09:43:00 Test Item Value Reference Range Interpretation Comments Creatinine Lvl (test code = Creatinine 1.50 0.50-1.40 Lvl) [facility]2017-08-09 09:43:00 Test Item Value Reference Range Interpretation Comments Potassium Lvl (test code = Potassium 3.9 3.5-5.1 Lvl) [facility]2017-08-09 09:43:00 Test Item Value Reference Range Interpretation Comments Sodium Lvl (test code = Sodium Lvl) 137 135-145 [facility]2017-08-09 09:43:00 Test Item Value Reference Range Interpretation Comments Calcium Lvl (test code = Calcium Lvl) 7.9 8.5-10.5 [facility]2017-08-09 09:43:00 Test Item Value Reference Range Interpretation Comments CO2 (test code = CO2) 24 24-32 [facility]2017-08-09 09:43:00 Test Item Value Reference Range Interpretation Comments Chloride Lvl (test code = Chloride Lvl) 104 95-109 [facility]2017-08-09 09:43:00 Test Item Value Reference Range Interpretation Comments AGAP (test code = AGAP) 12.9 10.0-20.0 [facility] WorthUttkuywESPHDSQRVV2247-71-02 09:43:00 Test Item Value Reference Range Interpretation Comments Basophils # (test code 0.1 See_Comment [Aut omated message] The = Basophils #) system which generated this result tra nsmitted reference range : <=0.2. The reference r mary was not used to int erpret this result as normal/abnormal . [facility] WorthOhndexrBZNAYCYYRF7142-92-21 09:43:00 Test Item Value Reference Range Interpretation Comments MCV (test code = MCV) 90.8 80.0-94.0 [facility] WorthUkyftwfLNCZSQQRVD2419-05-32 09:43:00 Test Item Value Reference Range Interpretation Comments Monocytes # (test code 1.2 See_Comment [Aut omated message] The = Monocytes #) system which generated this result tra nsmitted reference range : <=0.8. The reference r mary was not used to int erpret this result as normal/abnormal . [facility] WorthMeaxjzoVWTFTZXMTG2152-16-04 09:43:00 Test Item Value Reference Range Interpretation Comments Eosinophils # (test code 0.2 See_Comment [A utomated message] The = Eosinophils #) system whic h generated this result tra nsmitted reference range : <=0.5. The reference r mary was not used to int erpret this result as normal/abnormal . [facility] WorthOaqvivvYHHTCKFKHW2846-38-31 09:43:00 Test Item Value Reference Range Interpretation Comments Lymphocytes # (test code = Lymphocytes 2.5 1.0-5.5 #) [facility] WorthQfboiubNLMVSGITKW1056-04-13 09:43:00 Test Item Value Reference Range Interpretation Comments Monocytes (test code = Monocytes) 8.7 2.0-12.0 [facility] WorthVtntuzsYFWCWWAOIF4986-95-41 09:43:00 Test Item Value Reference Range Interpretation Comments Eosinophils (test code = 1.6 See_Comment [A utomated message] The Eosinophils) system which ge nerated this result tra nsmitted reference range : <=4.0. The reference r mary was not used to int erpret this result as normal/abnormal . [facility] WorthGvdcofaWPOFXDKPAP2669-88-92 09:43:00 Test Item Value Reference Range Interpretation Comments Basophils (test code = 0.4 See_Comment [Aut omated message] The Basophils) system which ge nerated this result tra nsmitted reference range : <=1.0. The reference r mary was not used to int erpret this result as normal/abnormal . [facility] WorthDfzmctqNNAAVRNIIH2337-33-34 09:43:00 Test Item Value Reference Range Interpretation Comments Segs-Bands # (test code = Segs-Bands #) 10.1 1.5-8.1 [facility] WorthSlogyxyAFUYMCILLP6592-65-24 09:43:00 Test Item Value Reference Range Interpretation Comments Lymphocytes (test code = Lymphocytes) 17.7 20.0-40.0 [facility] WorthHgftgijYWDIQWACFG1568-36-52 09:43:00 Test Item Value Reference Range Interpretation Comments Segs (test code = Segs) 71.6 45.0-75.0 [facility] WorthCjequmbGKDZPWCHID8223-39-26 09:43:00 Test Item Value Reference Range Interpretation Comments MPV (test code = MPV) 8.4 7.4-10.4 [facility] WorthEdfvlwvLSCABANBDG0912-86-41 09:43:00 Test Item Value Reference Range Interpretation Comments MCHC (test code = MCHC) 33.1 32.0-36.0 [facility] WorthRkappowTCEPZGILXM0712-66-36 09:43:00 Test Item Value Reference Range Interpretation Comments Platelet (test code = Platelet) 211 133-450 [facility] WorthSgrumhuXVGKNKBEZA1077-75-12 09:43:00 Test Item Value Reference Range Interpretation Comments WBC (test code = WBC) 14.1 3.7-10.4 [facility] WorthIxvchulOYBJLXBPOO8589-86-99 09:43:00 Test Item Value Reference Range Interpretation Comments RBC (test code = RBC) 4.43 4.70-6.10 [facility] WorthJypbmbcKLSEPCMURJ0251-98-09 09:43:00 Test Item Value Reference Range Interpretation Comments Hgb (test code = Hgb) 13.3 14.0-18.0 [facility] WorthDpmccltRGEUOZWQJH7948-89-45 09:43:00 Test Item Value Reference Range Interpretation Comments MCV (test code = MCV) 90.8 80.0-94.0 [facility] WorthLrlbylvOZBQCFJTLO6051-53-28 09:43:00 Test Item Value Reference Range Interpretation Comments MCHC (test code = MCHC) 33.1 32.0-36.0 [facility] WorthPkkemchZNKGWTOPTD8544-69-39 09:43:00 Test Item Value Reference Range Interpretation Comments MCH (test code = MCH) 30.0 pg 27.0-31.0 [facility] WorthKhjugukVYQUYNGDBR7857-47-19 09:43:00 Test Item Value Reference Range Interpretation Comments RDW (test code = RDW) 14.6 11.5-14.5 [facility] WorthOvqrvhfLZMUCHNPWS2742-62-97 09:43:00 Test Item Value Reference Range Interpretation Comments Hct (test code = Hct) 40.2 42.0-54.0 [facility] WorthBjcuvcjMJLVMSWJCS7901-72-70 09:43:00 Test Item Value Reference Range Interpretation Comments MCH (test code = MCH) 30.0 pg 27.0-31.0 [facility] WorthTusydwcFQESRALFDF6482-56-11 09:43:00 Test Item Value Reference Range Interpretation Comments RDW (test code = RDW) 14.6 11.5-14.5 [facility] WorthWencyggVKCIZSKNIR1586-45-82 09:43:00 Test Item Value Reference Range Interpretation Comments Hct (test code = Hct) 40.2 42.0-54.0 [facility]2017-08-09 09:43:00 Test Item Value Reference Range Interpretation Comments eGFR (test code = eGFR) 53 [place] 081607-08-09 09:43:00 Test Item Value Reference Range Interpretation Comments Glucose Lvl (test code = Glucose Lvl) 116 70-99 [place] 081607-08-09 09:43:00 Test Item Value Reference Range Interpretation Comments BUN (test code = BUN) 18 7-22 [facility]2017-08-09 09:43:00 Test Item Value Reference Range Interpretation Comments Creatinine Lvl (test code = Creatinine 1.50 0.50-1.40 Lvl) [facility]2017-08-09 09:43:00 Test Item Value Reference Range Interpretation Comments Potassium Lvl (test code = Potassium 3.9 3.5-5.1 Lvl) [facility]2017-08-09 09:43:00 Test Item Value Reference Range Interpretation Comments Sodium Lvl (test code = Sodium Lvl) 137 135-145 [facility]2017-08-09 09:43:00 Test Item Value Reference Range Interpretation Comments Calcium Lvl (test code = Calcium Lvl) 7.9 8.5-10.5 [facility]2017-08-09 09:43:00 Test Item Value Reference Range Interpretation Comments CO2 (test code = CO2) 24 24-32 [facility]2017-08-09 09:43:00 Test Item Value Reference Range Interpretation Comments Chloride Lvl (test code = Chloride Lvl) 104 95-109 [facility]2017-08-09 09:43:00 Test Item Value Reference Range Interpretation Comments AGAP (test code = AGAP) 12.9 10.0-20.0 [facility] WorthJppvuqoQGWVRQZKSW8220-87-96 09:43:00 Test Item Value Reference Range Interpretation Comments Basophils # (test code 0.1 See_Comment [Aut omated message] The = Basophils #) system which generated this result tra nsmitted reference range : <=0.2. The reference r mary was not used to int erpret this result as normal/abnormal . [facility] WorthLlvpofhGDARZOWMOY2213-98-85 09:43:00 Test Item Value Reference Range Interpretation Comments Monocytes # (test code 1.2 See_Comment [Aut omated message] The = Monocytes #) system which generated this result tra nsmitted reference range : <=0.8. The reference r mary was not used to int erpret this result as normal/abnormal . [facility] WorthQjghxczDSECXEDLQW4414-66-09 09:43:00 Test Item Value Reference Range Interpretation Comments Eosinophils # (test code 0.2 See_Comment [A utomated message] The = Eosinophils #) system whic h generated this result tra nsmitted reference range : <=0.5. The reference r mary was not used to int erpret this result as normal/abnormal . [facility] WorthZvtirkdRGCCQEWTLW6862-39-24 09:43:00 Test Item Value Reference Range Interpretation Comments Lymphocytes # (test code = Lymphocytes 2.5 1.0-5.5 #) [facility] WorthVcsdsxfNGKOKCYDDR6882-15-80 09:43:00 Test Item Value Reference Range Interpretation Comments Monocytes (test code = Monocytes) 8.7 2.0-12.0 [facility] WorthGetdxbiWEUXUOBAQF2103-49-75 09:43:00 Test Item Value Reference Range Interpretation Comments Eosinophils (test code = 1.6 See_Comment [A utomated message] The Eosinophils) system which ge nerated this result tra nsmitted reference range : <=4.0. The reference r mary was not used to int erpret this result as normal/abnormal . [facility] WorthZucsfxiSDHVHLBBNS3036-59-51 09:43:00 Test Item Value Reference Range Interpretation Comments Basophils (test code = 0.4 See_Comment [Aut omated message] The Basophils) system which ge nerated this result tra nsmitted reference range : <=1.0. The reference r mary was not used to int erpret this result as normal/abnormal . [facility] WorthMohfutmIJJQVZGULM0788-54-82 09:43:00 Test Item Value Reference Range Interpretation Comments Segs-Bands # (test code = Segs-Bands #) 10.1 1.5-8.1 [facility] WorthQasmynuAUXBYPXUDI6729-33-85 09:43:00 Test Item Value Reference Range Interpretation Comments Lymphocytes (test code = Lymphocytes) 17.7 20.0-40.0 [facility] WorthUyhbiuwOXEMNHODJA4062-09-13 09:43:00 Test Item Value Reference Range Interpretation Comments Segs (test code = Segs) 71.6 45.0-75.0 [facility] WorthYqdqdkrDJGXYJCTIS5943-34-81 09:43:00 Test Item Value Reference Range Interpretation Comments MPV (test code = MPV) 8.4 7.4-10.4 [facility] WorthVhdzmitSAOVVQCPBT0149-99-27 09:43:00 Test Item Value Reference Range Interpretation Comments Platelet (test code = Platelet) 211 133-450 [facility] WorthQeuwebrMVXYUESBLS1975-48-51 09:43:00 Test Item Value Reference Range Interpretation Comments WBC (test code = WBC) 14.1 3.7-10.4 [facility] WorthJvgmvhoVIPNBPEQBF5601-84-87 09:43:00 Test Item Value Reference Range Interpretation Comments RBC (test code = RBC) 4.43 4.70-6.10 [facility] WorthOsystqrELDSQNXREV9671-30-06 09:43:00 Test Item Value Reference Range Interpretation Comments Hgb (test code = Hgb) 13.3 14.0-18.0 [facility] WorthJtrxmrhPVBWWWCIDW4239-91-30 09:43:00 Test Item Value Reference Range Interpretation Comments MCV (test code = MCV) 90.8 80.0-94.0 [facility] WorthOlxpzgxVDJWWTGAIB0620-33-90 09:43:00 Test Item Value Reference Range Interpretation Comments MCHC (test code = MCHC) 33.1 32.0-36.0 [facility] WorthOgmmobyGHIBFOVZXL9300-71-07 09:43:00 Test Item Value Reference Range Interpretation Comments MCH (test code = MCH) 30.0 pg 27.0-31.0 [facility] WorthYytpxfxUCAQRABMOI4082-96-39 09:43:00 Test Item Value Reference Range Interpretation Comments RDW (test code = RDW) 14.6 11.5-14.5 [facility] WorthZyfmhymMHQYFGSXAP6811-13-78 09:43:00 Test Item Value Reference Range Interpretation Comments Hct (test code = Hct) 40.2 42.0-54.0 [facility]2017-08-09 09:43:00 Test Item Value Reference Range Interpretation Comments eGFR (test code = eGFR) 53 [facility]2017-08-09 09:43:00 Test Item Value Reference Range Interpretation Comments Glucose Lvl (test code = Glucose Lvl) 116 70-99 [facility]2017-08-09 09:43:00 Test Item Value Reference Range Interpretation Comments BUN (test code = BUN) 18 7-22 [facility]2017-08-09 09:43:00 Test Item Value Reference Range Interpretation Comments Creatinine Lvl (test code = Creatinine 1.50 0.50-1.40 Lvl) [facility]2017-08-09 09:43:00 Test Item Value Reference Range Interpretation Comments Potassium Lvl (test code = Potassium 3.9 3.5-5.1 Lvl) [facility]2017-08-09 09:43:00 Test Item Value Reference Range Interpretation Comments Sodium Lvl (test code = Sodium Lvl) 137 135-145 [facility]2017-08-09 09:43:00 Test Item Value Reference Range Interpretation Comments Calcium Lvl (test code = Calcium Lvl) 7.9 8.5-10.5 [facility]2017-08-09 09:43:00 Test Item Value Reference Range Interpretation Comments CO2 (test code = CO2) 24 24-32 [facility]2017-08-09 09:43:00 Test Item Value Reference Range Interpretation Comments Chloride Lvl (test code = Chloride Lvl) 104 95-109 [facility]2017-08-09 09:43:00 Test Item Value Reference Range Interpretation Comments AGAP (test code = AGAP) 12.9 10.0-20.0 [facility] WorthIalyjkeQAOGYUEYDP9089-73-19 09:43:00 Test Item Value Reference Range Interpretation Comments Basophils # (test code 0.1 See_Comment [Aut omated message] The = Basophils #) system which generated this result tra nsmitted reference range : <=0.2. The reference r mary was not used to int erpret this result as normal/abnormal . [facility] WorthFbkrlmgWQQGJRHKCZ1820-80-63 09:43:00 Test Item Value Reference Range Interpretation Comments Monocytes # (test code 1.2 See_Comment [Aut omated message] The = Monocytes #) system which generated this result tra nsmitted reference range : <=0.8. The reference r mary was not used to int erpret this result as normal/abnormal . [facility] WorthLqmsrnaSQZGCOZMZL8284-08-82 09:43:00 Test Item Value Reference Range Interpretation Comments Eosinophils # (test code 0.2 See_Comment [A utomated message] The = Eosinophils #) system whic h generated this result tra nsmitted reference range : <=0.5. The reference r mary was not used to int erpret this result as normal/abnormal . [facility] WorthJxsvjveFCMANIFEJI4186-30-35 09:43:00 Test Item Value Reference Range Interpretation Comments Lymphocytes # (test code = Lymphocytes 2.5 1.0-5.5 #) [facility] WorthNmdlixfSHZXOMAMQT7154-84-90 09:43:00 Test Item Value Reference Range Interpretation Comments Monocytes (test code = Monocytes) 8.7 2.0-12.0 [facility] WorthNtzcizvXQABDFGUFX6509-91-61 09:43:00 Test Item Value Reference Range Interpretation Comments Eosinophils (test code = 1.6 See_Comment [A utomated message] The Eosinophils) system which ge nerated this result tra nsmitted reference range : <=4.0. The reference r mary was not used to int erpret this result as normal/abnormal . [facility] WorthGumpintYFQTWULPNW5723-06-49 09:43:00 Test Item Value Reference Range Interpretation Comments Basophils (test code = 0.4 See_Comment [Aut omated message] The Basophils) system which ge nerated this result tra nsmitted reference range : <=1.0. The reference r mary was not used to int erpret this result as normal/abnormal . [facility] WorthJumgjpmHXAHILGGNH7442-58-36 09:43:00 Test Item Value Reference Range Interpretation Comments Segs-Bands # (test code = Segs-Bands #) 10.1 1.5-8.1 [facility] WorthUvwfbfdCPZHEBYAMF5981-55-78 09:43:00 Test Item Value Reference Range Interpretation Comments Lymphocytes (test code = Lymphocytes) 17.7 20.0-40.0 [facility] WorthUtkuohaBUWADCZPOG4764-75-60 09:43:00 Test Item Value Reference Range Interpretation Comments Segs (test code = Segs) 71.6 45.0-75.0 [facility] WorthXavpfiaXHKXLECSZM6440-08-26 09:43:00 Test Item Value Reference Range Interpretation Comments MPV (test code = MPV) 8.4 7.4-10.4 [facility] WorthHquvazqTVZFKDCUUI5425-08-02 09:43:00 Test Item Value Reference Range Interpretation Comments Platelet (test code = Platelet) 211 133-450 [facility] WorthGikkpacCOKISMTJAZ7105-33-42 09:43:00 Test Item Value Reference Range Interpretation Comments WBC (test code = WBC) 14.1 3.7-10.4 [facility] WorthGlozipxUJXNRYKEBC8503-82-20 09:43:00 Test Item Value Reference Range Interpretation Comments RBC (test code = RBC) 4.43 4.70-6.10 [facility] WorthYrgenyoKJQZJOEBEC4736-22-20 09:43:00 Test Item Value Reference Range Interpretation Comments Hgb (test code = Hgb) 13.3 14.0-18.0 [facility] WorthXiygdwvXTYMHCORGV8279-94-44 09:43:00 Test Item Value Reference Range Interpretation Comments MCV (test code = MCV) 90.8 80.0-94.0 [facility] WorthRkrqeipKJVZBDBTXB6523-47-57 09:43:00 Test Item Value Reference Range Interpretation Comments MCHC (test code = MCHC) 33.1 32.0-36.0 [facility] WorthHuqnwhyQVKMHWPETW3074-14-02 09:43:00 Test Item Value Reference Range Interpretation Comments MCH (test code = MCH) 30.0 pg 27.0-31.0 [facility] WorthDqfgslzOGFSBZAGNR8590-52-70 09:43:00 Test Item Value Reference Range Interpretation Comments RDW (test code = RDW) 14.6 11.5-14.5 [facility] WorthRsycuqaRTEJAHPKQN6362-99-09 09:43:00 Test Item Value Reference Range Interpretation Comments Hct (test code = Hct) 40.2 42.0-54.0 [facility]2017-08-09 09:43:00 Test Item Value Reference Range Interpretation Comments eGFR (test code = eGFR) 53 [facility]2017-08-09 09:43:00 Test Item Value Reference Range Interpretation Comments Glucose Lvl (test code = Glucose Lvl) 116 70-99 [facility]2017-08-09 09:43:00 Test Item Value Reference Range Interpretation Comments BUN (test code = BUN) 18 7-22 [facility]2017-08-09 09:43:00 Test Item Value Reference Range Interpretation Comments Creatinine Lvl (test code = Creatinine 1.50 0.50-1.40 Lvl) [facility]2017-08-09 09:43:00 Test Item Value Reference Range Interpretation Comments Potassium Lvl (test code = Potassium 3.9 3.5-5.1 Lvl) [facility]2017-08-09 09:43:00 Test Item Value Reference Range Interpretation Comments Sodium Lvl (test code = Sodium Lvl) 137 135-145 [facility]2017-08-09 09:43:00 Test Item Value Reference Range Interpretation Comments Calcium Lvl (test code = Calcium Lvl) 7.9 8.5-10.5 [facility]2017-08-09 09:43:00 Test Item Value Reference Range Interpretation Comments CO2 (test code = CO2) 24 24-32 [facility]2017-08-09 09:43:00 Test Item Value Reference Range Interpretation Comments Chloride Lvl (test code = Chloride Lvl) 104 95-109 [facility]2017-08-09 09:43:00 Test Item Value Reference Range Interpretation Comments AGAP (test code = AGAP) 12.9 10.0-20.0 [facility] WorthCpmtfwjFBGXZRSNYZ8542-43-19 09:43:00 Test Item Value Reference Range Interpretation Comments Basophils # (test code 0.1 See_Comment [Aut omated message] The = Basophils #) system which generated this result tra nsmitted reference range : <=0.2. The reference r mary was not used to int erpret this result as normal/abnormal . [facility] WorthRvpfuyuSTVNUALVKD8327-76-05 09:43:00 Test Item Value Reference Range Interpretation Comments Monocytes # (test code 1.2 See_Comment [Aut omated message] The = Monocytes #) system which generated this result tra nsmitted reference range : <=0.8. The reference r mary was not used to int erpret this result as normal/abnormal . [facility] WorthBzipdslSIRODSJFUO0443-80-50 09:43:00 Test Item Value Reference Range Interpretation Comments Eosinophils # (test code 0.2 See_Comment [A utomated message] The = Eosinophils #) system whic h generated this result tra nsmitted reference range : <=0.5. The reference r mary was not used to int erpret this result as normal/abnormal . [facility] WorthRisheahWRWMSEYGNK2816-43-53 09:43:00 Test Item Value Reference Range Interpretation Comments Lymphocytes # (test code = Lymphocytes 2.5 1.0-5.5 #) [facility] WorthBalmaltAWAZCCRXPF0098-00-84 09:43:00 Test Item Value Reference Range Interpretation Comments Monocytes (test code = Monocytes) 8.7 2.0-12.0 [facility] WorthGfampkrVVBUXYVGWF0551-58-52 09:43:00 Test Item Value Reference Range Interpretation Comments Eosinophils (test code = 1.6 See_Comment [A utomated message] The Eosinophils) system which ge nerated this result tra nsmitted reference range : <=4.0. The reference r mary was not used to int erpret this result as normal/abnormal . [facility] WorthGxleosmNANCNEWXPU4226-00-41 09:43:00 Test Item Value Reference Range Interpretation Comments Basophils (test code = 0.4 See_Comment [Aut omated message] The Basophils) system which ge nerated this result tra nsmitted reference range : <=1.0. The reference r mary was not used to int erpret this result as normal/abnormal . [facility] WorthCitfqvwLLGPCPUWMI5242-89-21 09:43:00 Test Item Value Reference Range Interpretation Comments Segs-Bands # (test code = Segs-Bands #) 10.1 1.5-8.1 [facility] WorthNlakyjvEXYXNQKROS3926-41-36 09:43:00 Test Item Value Reference Range Interpretation Comments Lymphocytes (test code = Lymphocytes) 17.7 20.0-40.0 [facility] WorthHowbcxzFSBGZPVNLW0644-06-01 09:43:00 Test Item Value Reference Range Interpretation Comments Segs (test code = Segs) 71.6 45.0-75.0 [facility] WorthBszvlumDBGPDZQAXZ4944-08-69 09:43:00 Test Item Value Reference Range Interpretation Comments MPV (test code = MPV) 8.4 7.4-10.4 [facility] WorthYfyikrlFWXONNOLAT9477-40-18 09:43:00 Test Item Value Reference Range Interpretation Comments Platelet (test code = Platelet) 211 133-450 [facility] WorthFbcqehnGYPFYKLRKN5064-04-03 09:43:00 Test Item Value Reference Range Interpretation Comments WBC (test code = WBC) 14.1 3.7-10.4 [facility] WorthBwoxbxsNFRNWYARMC3404-04-54 09:43:00 Test Item Value Reference Range Interpretation Comments RBC (test code = RBC) 4.43 4.70-6.10 [facility] WorthYgmtbsvGDDWXHPSXA2848-17-47 09:43:00 Test Item Value Reference Range Interpretation Comments Hgb (test code = Hgb) 13.3 14.0-18.0 [facility] WorthCmecbneNPDFJWAWBX6568-45-79 09:43:00 Test Item Value Reference Range Interpretation Comments MCV (test code = MCV) 90.8 80.0-94.0 [facility] WorthEqujgsjFJYKAPGXCU0042-59-23 09:43:00 Test Item Value Reference Range Interpretation Comments MCHC (test code = MCHC) 33.1 32.0-36.0 [facility] WorthPexexdeTFWWVKIQVD2375-11-27 09:43:00 Test Item Value Reference Range Interpretation Comments MCH (test code = MCH) 30.0 pg 27.0-31.0 [facility] WorthYwbwhepEQMMFLFXQR4648-71-29 09:43:00 Test Item Value Reference Range Interpretation Comments RDW (test code = RDW) 14.6 11.5-14.5 [facility] WorthOzffrgiVZILEIFUVV4319-84-31 09:43:00 Test Item Value Reference Range Interpretation Comments Hct (test code = Hct) 40.2 42.0-54.0 [facility]2017-08-09 09:43:00 Test Item Value Reference Range Interpretation Comments eGFR (test code = eGFR) 53 [facility]2017-08-09 09:43:00 Test Item Value Reference Range Interpretation Comments Glucose Lvl (test code = Glucose Lvl) 116 70-99 [facility]2017-08-09 09:43:00 Test Item Value Reference Range Interpretation Comments BUN (test code = BUN) 18 7-22 [facility]2017-08-09 09:43:00 Test Item Value Reference Range Interpretation Comments Creatinine Lvl (test code = Creatinine 1.50 0.50-1.40 Lvl) [facility]2017-08-09 09:43:00 Test Item Value Reference Range Interpretation Comments Potassium Lvl (test code = Potassium 3.9 3.5-5.1 Lvl) [facility]2017-08-09 09:43:00 Test Item Value Reference Range Interpretation Comments Sodium Lvl (test code = Sodium Lvl) 137 135-145 [facility]2017-08-09 09:43:00 Test Item Value Reference Range Interpretation Comments Calcium Lvl (test code = Calcium Lvl) 7.9 8.5-10.5 [place] 081607-08-09 09:43:00 Test Item Value Reference Range Interpretation Comments CO2 (test code = CO2) 24 24-32 [facility]2017-08-09 09:43:00 Test Item Value Reference Range Interpretation Comments Chloride Lvl (test code = Chloride Lvl) 104 95-109 [facility]2017-08-09 09:43:00 Test Item Value Reference Range Interpretation Comments AGAP (test code = AGAP) 12.9 10.0-20.0 [facility] WorthJrxvrwpMUDXIBRDPG2478-72-20 09:43:00 Test Item Value Reference Range Interpretation Comments Basophils # (test code 0.1 See_Comment [Aut omated message] The = Basophils #) system which generated this result tra nsmitted reference range : <=0.2. The reference r mary was not used to int erpret this result as normal/abnormal . [facility] WorthMrievjlVBOOSODARD1422-23-97 09:43:00 Test Item Value Reference Range Interpretation Comments Monocytes # (test code 1.2 See_Comment [Aut omated message] The = Monocytes #) system which generated this result tra nsmitted reference range : <=0.8. The reference r mary was not used to int erpret this result as normal/abnormal . [facility] WorthPdoqfhxYTSDSXLNPJ4804-12-57 09:43:00 Test Item Value Reference Range Interpretation Comments Eosinophils # (test code 0.2 See_Comment [A utomated message] The = Eosinophils #) system whic h generated this result tra nsmitted reference range : <=0.5. The reference r mary was not used to int erpret this result as normal/abnormal . [facility] WorthTwvzurxPSYGJKLOCZ0800-26-13 09:43:00 Test Item Value Reference Range Interpretation Comments Lymphocytes # (test code = Lymphocytes 2.5 1.0-5.5 #) [facility] WorthKzfowigISANMAQSGL1308-63-01 09:43:00 Test Item Value Reference Range Interpretation Comments Monocytes (test code = Monocytes) 8.7 2.0-12.0 [facility] WorthHvnvyaoTZFFJQSJGD5687-58-84 09:43:00 Test Item Value Reference Range Interpretation Comments Eosinophils (test code = 1.6 See_Comment [A utomated message] The Eosinophils) system which ge nerated this result tra nsmitted reference range : <=4.0. The reference r mary was not used to int erpret this result as normal/abnormal . [facility] WorthRwzcuiyAYCRBAZYKI0650-25-29 09:43:00 Test Item Value Reference Range Interpretation Comments Basophils (test code = 0.4 See_Comment [Aut omated message] The Basophils) system which ge nerated this result tra nsmitted reference range : <=1.0. The reference r mary was not used to int erpret this result as normal/abnormal . [facility] WorthPvklcrbVUXUOGLFVL7455-24-99 09:43:00 Test Item Value Reference Range Interpretation Comments Segs-Bands # (test code = Segs-Bands #) 10.1 1.5-8.1 [facility] WorthMobpzknPTAQGJKXJD2950-67-30 09:43:00 Test Item Value Reference Range Interpretation Comments Lymphocytes (test code = Lymphocytes) 17.7 20.0-40.0 [facility] WorthPrxczksCNZJZVWPNM2702-10-97 09:43:00 Test Item Value Reference Range Interpretation Comments Segs (test code = Segs) 71.6 45.0-75.0 [facility] WorthQvjypqoJERCQYCFLU0656-68-75 09:43:00 Test Item Value Reference Range Interpretation Comments MPV (test code = MPV) 8.4 7.4-10.4 [facility] WorthUliydupOQQSKHZGZJ0530-67-60 09:43:00 Test Item Value Reference Range Interpretation Comments Platelet (test code = Platelet) 211 133-450 [facility] WorthDxufodsUGMIGNNPDY3308-08-50 09:43:00 Test Item Value Reference Range Interpretation Comments WBC (test code = WBC) 14.1 3.7-10.4 [facility] WorthYtwjwwpNCMRXXMOLV2592-03-34 09:43:00 Test Item Value Reference Range Interpretation Comments RBC (test code = RBC) 4.43 4.70-6.10 [facility] WorthDenrtwvXXHWKVEVKK7631-96-08 09:43:00 Test Item Value Reference Range Interpretation Comments Hgb (test code = Hgb) 13.3 14.0-18.0 [facility] WorthFoasnepXYIHIQZDJJ4468-50-50 09:43:00 Test Item Value Reference Range Interpretation Comments MCV (test code = MCV) 90.8 80.0-94.0 [facility] WorthUocirfpZYLJBRXHWE6543-13-16 09:43:00 Test Item Value Reference Range Interpretation Comments MCHC (test code = MCHC) 33.1 32.0-36.0 [facility] WorthAipfptyUQVMQDAPQP6496-17-67 09:43:00 Test Item Value Reference Range Interpretation Comments MCH (test code = MCH) 30.0 pg 27.0-31.0 [facility] WorthDztkyohFKBWCBJWSW3548-30-23 09:43:00 Test Item Value Reference Range Interpretation Comments RDW (test code = RDW) 14.6 11.5-14.5 [facility] WorthHzeywipTQRQCWUAAX4440-99-09 09:43:00 Test Item Value Reference Range Interpretation Comments Hct (test code = Hct) 40.2 42.0-54.0 [facility]2017-08-09 09:43:00 Test Item Value Reference Range Interpretation Comments eGFR (test code = eGFR) 53 [facility]2017-08-09 09:43:00 Test Item Value Reference Range Interpretation Comments Glucose Lvl (test code = Glucose Lvl) 116 70-99 [facility]2017-08-09 09:43:00 Test Item Value Reference Range Interpretation Comments BUN (test code = BUN) 18 7-22 [facility]2017-08-09 09:43:00 Test Item Value Reference Range Interpretation Comments Creatinine Lvl (test code = Creatinine 1.50 0.50-1.40 Lvl) [facility]2017-08-09 09:43:00 Test Item Value Reference Range Interpretation Comments Potassium Lvl (test code = Potassium 3.9 3.5-5.1 Lvl) [facility]2017-08-09 09:43:00 Test Item Value Reference Range Interpretation Comments Sodium Lvl (test code = Sodium Lvl) 137 135-145 [facility]2017-08-09 09:43:00 Test Item Value Reference Range Interpretation Comments Calcium Lvl (test code = Calcium Lvl) 7.9 8.5-10.5 [facility]2017-08-09 09:43:00 Test Item Value Reference Range Interpretation Comments CO2 (test code = CO2) 24 24-32 [facility]2017-08-09 09:43:00 Test Item Value Reference Range Interpretation Comments Chloride Lvl (test code = Chloride Lvl) 104 95-109 [facility]2017-08-09 09:43:00 Test Item Value Reference Range Interpretation Comments AGAP (test code = AGAP) 12.9 10.0-20.0 [facility] WorthBqghtesMNJKWBFNQV9801-74-25 09:43:00 Test Item Value Reference Range Interpretation Comments Basophils # (test code 0.1 See_Comment [Aut omated message] The = Basophils #) system which generated this result tra nsmitted reference range : <=0.2. The reference r mary was not used to int erpret this result as normal/abnormal . [facility] WorthHzfjzlvCRBCUYESFA0907-22-43 09:43:00 Test Item Value Reference Range Interpretation Comments Monocytes # (test code 1.2 See_Comment [Aut omated message] The = Monocytes #) system which generated this result tra nsmitted reference range : <=0.8. The reference r mary was not used to int erpret this result as normal/abnormal . [facility] WorthRbhuwglSBODFIGQEW2024-56-00 09:43:00 Test Item Value Reference Range Interpretation Comments Eosinophils # (test code 0.2 See_Comment [A utomated message] The = Eosinophils #) system whic h generated this result tra nsmitted reference range : <=0.5. The reference r mary was not used to int erpret this result as normal/abnormal . [facility] WorthGwvxqruLYEPPEQDYL0837-92-49 09:43:00 Test Item Value Reference Range Interpretation Comments Lymphocytes # (test code = Lymphocytes 2.5 1.0-5.5 #) [facility] WorthMvdeseyVCOJUJRUBR8921-15-30 09:43:00 Test Item Value Reference Range Interpretation Comments Monocytes (test code = Monocytes) 8.7 2.0-12.0 [facility] WorthRbljlcvYDULIBZZLE4488-37-39 09:43:00 Test Item Value Reference Range Interpretation Comments Eosinophils (test code = 1.6 See_Comment [A utomated message] The Eosinophils) system which ge nerated this result tra nsmitted reference range : <=4.0. The reference r mary was not used to int erpret this result as normal/abnormal . [facility] WorthResconlAIFINPOXEQ2034-61-57 09:43:00 Test Item Value Reference Range Interpretation Comments Basophils (test code = 0.4 See_Comment [Aut omated message] The Basophils) system which ge nerated this result tra nsmitted reference range : <=1.0. The reference r mary was not used to int erpret this result as normal/abnormal . [facility] WorthZozxalsAVHAVVBFSZ9531-01-99 09:43:00 Test Item Value Reference Range Interpretation Comments Segs-Bands # (test code = Segs-Bands #) 10.1 1.5-8.1 [facility] WorthImumuvrBRVGYNKJWM6840-31-85 09:43:00 Test Item Value Reference Range Interpretation Comments Lymphocytes (test code = Lymphocytes) 17.7 20.0-40.0 [facility] WorthHneywopLNJXUWENCA8197-36-14 09:43:00 Test Item Value Reference Range Interpretation Comments Segs (test code = Segs) 71.6 45.0-75.0 [facility] WorthWggktmiVNPDVYARSI2504-25-96 09:43:00 Test Item Value Reference Range Interpretation Comments MPV (test code = MPV) 8.4 7.4-10.4 [facility] WorthIijcqhqGCBNEHREVK6916-82-25 09:43:00 Test Item Value Reference Range Interpretation Comments Platelet (test code = Platelet) 211 133-450 [facility] WorthVzitprzALRHSAHWVT5100-57-69 09:43:00 Test Item Value Reference Range Interpretation Comments WBC (test code = WBC) 14.1 3.7-10.4 [facility] WorthDjaeypqWOWLINDDQY8813-61-51 09:43:00 Test Item Value Reference Range Interpretation Comments RBC (test code = RBC) 4.43 4.70-6.10 [facility] WorthRknnrilQCBCTPRGZN0884-71-18 09:43:00 Test Item Value Reference Range Interpretation Comments Hgb (test code = Hgb) 13.3 14.0-18.0 [facility] WorthRwucnpcFEDOFMJWCW2255-08-44 09:43:00 Test Item Value Reference Range Interpretation Comments MCV (test code = MCV) 90.8 80.0-94.0 [facility] WorthRirmdfoLOCAQSYTCX7097-66-71 09:43:00 Test Item Value Reference Range Interpretation Comments MCHC (test code = MCHC) 33.1 32.0-36.0 [facility] WorthIfawbirQPFQNUFXAZ3846-29-38 09:43:00 Test Item Value Reference Range Interpretation Comments MCH (test code = MCH) 30.0 pg 27.0-31.0 [facility] WorthMavahufGYOQOKUNDL8348-26-21 09:43:00 Test Item Value Reference Range Interpretation Comments RDW (test code = RDW) 14.6 11.5-14.5 [facility] WorthZjswmkpRTVREOBUAV6722-07-55 09:43:00 Test Item Value Reference Range Interpretation Comments Hct (test code = Hct) 40.2 42.0-54.0 [facility]2017-08-09 09:43:00 Test Item Value Reference Range Interpretation Comments eGFR (test code = eGFR) 53 [facility]2017-08-09 09:43:00 Test Item Value Reference Range Interpretation Comments Glucose Lvl (test code = Glucose Lvl) 116 70-99 [facility]2017-08-09 09:43:00 Test Item Value Reference Range Interpretation Comments BUN (test code = BUN) 18 7-22 [facility]2017-08-09 09:43:00 Test Item Value Reference Range Interpretation Comments Creatinine Lvl (test code = Creatinine 1.50 0.50-1.40 Lvl) [facility]2017-08-09 09:43:00 Test Item Value Reference Range Interpretation Comments Potassium Lvl (test code = Potassium 3.9 3.5-5.1 Lvl) [facility]2017-08-09 09:43:00 Test Item Value Reference Range Interpretation Comments Sodium Lvl (test code = Sodium Lvl) 137 135-145 [facility]2017-08-09 09:43:00 Test Item Value Reference Range Interpretation Comments Calcium Lvl (test code = Calcium Lvl) 7.9 8.5-10.5 [facility]2017-08-09 09:43:00 Test Item Value Reference Range Interpretation Comments CO2 (test code = CO2) 24 24-32 [facility]2017-08-09 09:43:00 Test Item Value Reference Range Interpretation Comments Chloride Lvl (test code = Chloride Lvl) 104 95-109 [facility]2017-08-09 09:43:00 Test Item Value Reference Range Interpretation Comments AGAP (test code = AGAP) 12.9 10.0-20.0 [facility] WorthTfmrfaeDOALOPJVDE4032-14-51 09:43:00 Test Item Value Reference Range Interpretation Comments Basophils # (test code 0.1 See_Comment [Aut omated message] The = Basophils #) system which generated this result tra nsmitted reference range : <=0.2. The reference r mary was not used to int erpret this result as normal/abnormal . [facility] WorthLcapjeyEXJUJECAME4515-21-94 09:43:00 Test Item Value Reference Range Interpretation Comments Monocytes # (test code 1.2 See_Comment [Aut omated message] The = Monocytes #) system which generated this result tra nsmitted reference range : <=0.8. The reference r mary was not used to int erpret this result as normal/abnormal . [facility] WorthKxayqipBQIRFKJENW0183-01-21 09:43:00 Test Item Value Reference Range Interpretation Comments Eosinophils # (test code 0.2 See_Comment [A utomated message] The = Eosinophils #) system whic h generated this result tra nsmitted reference range : <=0.5. The reference r mary was not used to int erpret this result as normal/abnormal . [facility] WorthLpccormFPGSPBFFEA7451-73-25 09:43:00 Test Item Value Reference Range Interpretation Comments Lymphocytes # (test code = Lymphocytes 2.5 1.0-5.5 #) [facility] WorthFcrxwxqJKOQQUMKRU8853-15-07 09:43:00 Test Item Value Reference Range Interpretation Comments Monocytes (test code = Monocytes) 8.7 2.0-12.0 [facility] WorthJgxgdjfXYEIHNIYAF1185-61-31 09:43:00 Test Item Value Reference Range Interpretation Comments Eosinophils (test code = 1.6 See_Comment [A utomated message] The Eosinophils) system which ge nerated this result tra nsmitted reference range : <=4.0. The reference r mary was not used to int erpret this result as normal/abnormal . [facility] WorthHvwrgriILHLAGMGKT3761-47-24 09:43:00 Test Item Value Reference Range Interpretation Comments Basophils (test code = 0.4 See_Comment [Aut omated message] The Basophils) system which ge nerated this result tra nsmitted reference range : <=1.0. The reference r mary was not used to int erpret this result as normal/abnormal . [facility] WorthHkuadroXPJBHZELZL4630-39-66 09:43:00 Test Item Value Reference Range Interpretation Comments Segs-Bands # (test code = Segs-Bands #) 10.1 1.5-8.1 [facility] WorthPaylhkcWJFJDDDTBL1459-62-58 09:43:00 Test Item Value Reference Range Interpretation Comments Lymphocytes (test code = Lymphocytes) 17.7 20.0-40.0 [facility] WorthSsqfaanSIULETHUKE2147-29-40 09:43:00 Test Item Value Reference Range Interpretation Comments Segs (test code = Segs) 71.6 45.0-75.0 [facility] WorthDacohzqBGYDHQJHHZ2510-66-67 09:43:00 Test Item Value Reference Range Interpretation Comments MPV (test code = MPV) 8.4 7.4-10.4 [facility] WorthFvombngOUHCJMFPDW4653-90-62 09:43:00 Test Item Value Reference Range Interpretation Comments Platelet (test code = Platelet) 211 133-450 [facility] WorthLlkoaegUBFCURSHSU2528-23-04 09:43:00 Test Item Value Reference Range Interpretation Comments WBC (test code = WBC) 14.1 3.7-10.4 [facility] WorthTwlxxsjPGETJDOPTZ1123-45-07 09:43:00 Test Item Value Reference Range Interpretation Comments RBC (test code = RBC) 4.43 4.70-6.10 [facility] WorthSzrauldVVEXSLNANG5608-45-69 09:43:00 Test Item Value Reference Range Interpretation Comments Hgb (test code = Hgb) 13.3 14.0-18.0 [facility] WorthJutozycCZRWODLUSO1109-68-88 09:43:00 Test Item Value Reference Range Interpretation Comments MCV (test code = MCV) 90.8 80.0-94.0 [facility] WorthHnabnflAGKFSVPMYX1126-75-98 09:43:00 Test Item Value Reference Range Interpretation Comments MCHC (test code = MCHC) 33.1 32.0-36.0 [facility] WorthQbgdgmzMHTLIQYNQE1973-26-97 09:43:00 Test Item Value Reference Range Interpretation Comments MCH (test code = MCH) 30.0 pg 27.0-31.0 [facility] WorthPozdlzcWSWOBQVQJK8798-12-67 09:43:00 Test Item Value Reference Range Interpretation Comments RDW (test code = RDW) 14.6 11.5-14.5 [facility] WorthSfulvsfOBOVWDYGCA0529-66-58 09:43:00 Test Item Value Reference Range Interpretation Comments Hct (test code = Hct) 40.2 42.0-54.0 [facility] UZCCJ3156-37-22 09:43:00 Test Item Value Reference Range Interpretation Comments eGFR (test code = eGFR) 53 [facility] OAYID5837-74-28 09:43:00 Test Item Value Reference Range Interpretation Comments Glucose Lvl (test code = Glucose Lvl) 116 70-99 [facility]2017-08-09 09:43:00 Test Item Value Reference Range Interpretation Comments BUN (test code = BUN) 18 7-22 [facility]2017-08-09 09:43:00 Test Item Value Reference Range Interpretation Comments Creatinine Lvl (test code = Creatinine 1.50 0.50-1.40 Lvl) [facility]2017-08-09 09:43:00 Test Item Value Reference Range Interpretation Comments Potassium Lvl (test code = Potassium 3.9 3.5-5.1 Lvl) [facility]2017-08-09 09:43:00 Test Item Value Reference Range Interpretation Comments Sodium Lvl (test code = Sodium Lvl) 137 135-145 [place] 081607-08-09 09:43:00 Test Item Value Reference Range Interpretation Comments Calcium Lvl (test code = Calcium Lvl) 7.9 8.5-10.5 [facility]2017-08-09 09:43:00 Test Item Value Reference Range Interpretation Comments CO2 (test code = CO2) 24 24-32 [facility]2017-08-09 09:43:00 Test Item Value Reference Range Interpretation Comments Chloride Lvl (test code = Chloride Lvl) 104 95-109 [facility]2017-08-09 09:43:00 Test Item Value Reference Range Interpretation Comments AGAP (test code = AGAP) 12.9 10.0-20.0 [facility] WorthIzbnxkxIQGZIWHOHQ5675-75-59 09:43:00 Test Item Value Reference Range Interpretation Comments Basophils # (test code 0.1 See_Comment [Aut omated message] The = Basophils #) system which generated this result tra nsmitted reference range : <=0.2. The reference r mary was not used to int erpret this result as normal/abnormal . [facility] WorthUwciaxjWQQDMYATNN4994-54-89 09:43:00 Test Item Value Reference Range Interpretation Comments Monocytes # (test code 1.2 See_Comment [Aut omated message] The = Monocytes #) system which generated this result tra nsmitted reference range : <=0.8. The reference r mary was not used to int erpret this result as normal/abnormal . [facility] WorthXxiemnvURSOIDLCGZ6501-06-57 09:43:00 Test Item Value Reference Range Interpretation Comments Eosinophils # (test code 0.2 See_Comment [A utomated message] The = Eosinophils #) system whic h generated this result tra nsmitted reference range : <=0.5. The reference r mary was not used to int erpret this result as normal/abnormal . [facility] WorthTyeujcrNTLQDLTJEI1700-75-21 09:43:00 Test Item Value Reference Range Interpretation Comments Lymphocytes # (test code = Lymphocytes 2.5 1.0-5.5 #) [facility] WorthOyfloezSLDDKCKZXA6237-49-34 09:43:00 Test Item Value Reference Range Interpretation Comments Monocytes (test code = Monocytes) 8.7 2.0-12.0 [facility] WorthVgpulylOYYJTYCKTA1932-44-13 09:43:00 Test Item Value Reference Range Interpretation Comments Eosinophils (test code = 1.6 See_Comment [A utomated message] The Eosinophils) system which ge nerated this result tra nsmitted reference range : <=4.0. The reference r mary was not used to int erpret this result as normal/abnormal . [facility] WorthNtdbfrwXZKZCDKEWN6339-65-92 09:43:00 Test Item Value Reference Range Interpretation Comments Basophils (test code = 0.4 See_Comment [Aut omated message] The Basophils) system which ge nerated this result tra nsmitted reference range : <=1.0. The reference r mary was not used to int erpret this result as normal/abnormal . [facility] WorthOyaqfdoRJKZLSGGPI5495-56-99 09:43:00 Test Item Value Reference Range Interpretation Comments Segs-Bands # (test code = Segs-Bands #) 10.1 1.5-8.1 [facility] WorthXgkkntpKMSDIYDPGR5109-35-47 09:43:00 Test Item Value Reference Range Interpretation Comments Lymphocytes (test code = Lymphocytes) 17.7 20.0-40.0 [facility] WorthUqdzhzyNFZMUNODIK9698-71-96 09:43:00 Test Item Value Reference Range Interpretation Comments Segs (test code = Segs) 71.6 45.0-75.0 [facility] WorthMiocqdtXHIDPIENOR6222-56-11 09:43:00 Test Item Value Reference Range Interpretation Comments MPV (test code = MPV) 8.4 7.4-10.4 [facility] WorthHcwavkwVRTGYAAQDG4231-77-01 09:43:00 Test Item Value Reference Range Interpretation Comments Platelet (test code = Platelet) 211 133-450 [facility] WorthFmajrzkTTKPSCYAMV1359-52-70 09:43:00 Test Item Value Reference Range Interpretation Comments WBC (test code = WBC) 14.1 3.7-10.4 [facility] WorthRlnadxkWVZARUQRPG5501-45-85 09:43:00 Test Item Value Reference Range Interpretation Comments RBC (test code = RBC) 4.43 4.70-6.10 [facility] WorthUqhrbbmDXRIQMQQYK9645-02-75 09:43:00 Test Item Value Reference Range Interpretation Comments Hgb (test code = Hgb) 13.3 14.0-18.0 [facility] WorthJtbxnslZPCVFYVAMO7031-80-58 09:43:00 Test Item Value Reference Range Interpretation Comments MCV (test code = MCV) 90.8 80.0-94.0 [facility] WorthQzrdobuZHWVSKDWQL2169-85-30 09:43:00 Test Item Value Reference Range Interpretation Comments MCHC (test code = MCHC) 33.1 32.0-36.0 [facility] WorthRnzfzqgXVJASLNWSD2455-08-87 09:43:00 Test Item Value Reference Range Interpretation Comments MCH (test code = MCH) 30.0 pg 27.0-31.0 [facility] WorthJojzvlzXRBWWQCHSB2000-32-76 09:43:00 Test Item Value Reference Range Interpretation Comments RDW (test code = RDW) 14.6 11.5-14.5 [facility] WorthVlkkjdtBLFMMICIJH1740-32-89 09:43:00 Test Item Value Reference Range Interpretation Comments Hct (test code = Hct) 40.2 42.0-54.0 [facility]2017-08-09 09:43:00 Test Item Value Reference Range Interpretation Comments eGFR (test code = eGFR) 53 [facility]2017-08-09 09:43:00 Test Item Value Reference Range Interpretation Comments Glucose Lvl (test code = Glucose Lvl) 116 70-99 [facility]2017-08-09 09:43:00 Test Item Value Reference Range Interpretation Comments BUN (test code = BUN) 18 7-22 [facility]2017-08-09 09:43:00 Test Item Value Reference Range Interpretation Comments Creatinine Lvl (test code = Creatinine 1.50 0.50-1.40 Lvl) [facility]2017-08-09 09:43:00 Test Item Value Reference Range Interpretation Comments Potassium Lvl (test code = Potassium 3.9 3.5-5.1 Lvl) [facility]2017-08-09 09:43:00 Test Item Value Reference Range Interpretation Comments Sodium Lvl (test code = Sodium Lvl) 137 135-145 [facility]2017-08-09 09:43:00 Test Item Value Reference Range Interpretation Comments Calcium Lvl (test code = Calcium Lvl) 7.9 8.5-10.5 [facility]2017-08-09 09:43:00 Test Item Value Reference Range Interpretation Comments CO2 (test code = CO2) 24 24-32 [facility]2017-08-09 09:43:00 Test Item Value Reference Range Interpretation Comments Chloride Lvl (test code = Chloride Lvl) 104 95-109 [facility]2017-08-09 09:43:00 Test Item Value Reference Range Interpretation Comments AGAP (test code = AGAP) 12.9 10.0-20.0 [facility] WorthOswsuboFRKXPBVSXD0359-26-19 09:43:00 Test Item Value Reference Range Interpretation Comments Basophils # (test code 0.1 See_Comment [Aut omated message] The = Basophils #) system which generated this result tra nsmitted reference range : <=0.2. The reference r mary was not used to int erpret this result as normal/abnormal . [facility] WorthMczuhrgDQNCKTVQMK5012-40-19 09:43:00 Test Item Value Reference Range Interpretation Comments Monocytes # (test code 1.2 See_Comment [Aut omated message] The = Monocytes #) system which generated this result tra nsmitted reference range : <=0.8. The reference r mary was not used to int erpret this result as normal/abnormal . [facility] WorthKnvzxkyOAHYKAFMOC3971-82-08 09:43:00 Test Item Value Reference Range Interpretation Comments Eosinophils # (test code 0.2 See_Comment [A utomated message] The = Eosinophils #) system whic h generated this result tra nsmitted reference range : <=0.5. The reference r mary was not used to int erpret this result as normal/abnormal . [facility] WorthMxwuwszCDSBILNJRJ2413-10-03 09:43:00 Test Item Value Reference Range Interpretation Comments Lymphocytes # (test code = Lymphocytes 2.5 1.0-5.5 #) [facility] WorthBpmuzlkDOQTICIDRV8488-10-88 09:43:00 Test Item Value Reference Range Interpretation Comments Monocytes (test code = Monocytes) 8.7 2.0-12.0 [facility] WorthQknaovlFOLMXOQQIV4807-60-37 09:43:00 Test Item Value Reference Range Interpretation Comments Eosinophils (test code = 1.6 See_Comment [A utomated message] The Eosinophils) system which ge nerated this result tra nsmitted reference range : <=4.0. The reference r mary was not used to int erpret this result as normal/abnormal . [facility] WorthDbrytfbDRIXWCYIVE9812-42-56 09:43:00 Test Item Value Reference Range Interpretation Comments Basophils (test code = 0.4 See_Comment [Aut omated message] The Basophils) system which ge nerated this result tra nsmitted reference range : <=1.0. The reference r mary was not used to int erpret this result as normal/abnormal . [facility] WorthKdmjnkaANPRCQZLHR0363-62-20 09:43:00 Test Item Value Reference Range Interpretation Comments Segs-Bands # (test code = Segs-Bands #) 10.1 1.5-8.1 [facility] WorthNvlmmxjBVYZEOJAXA6077-67-61 09:43:00 Test Item Value Reference Range Interpretation Comments Lymphocytes (test code = Lymphocytes) 17.7 20.0-40.0 [facility] WorthKeokjjyQIHRSBFQAW6691-67-80 09:43:00 Test Item Value Reference Range Interpretation Comments Segs (test code = Segs) 71.6 45.0-75.0 [facility] WorthHhcdwkqJFGFLTCXOB2729-36-06 09:43:00 Test Item Value Reference Range Interpretation Comments MPV (test code = MPV) 8.4 7.4-10.4 [facility] WorthBtlvdlbPXNWIMLUFR7699-94-95 09:43:00 Test Item Value Reference Range Interpretation Comments Platelet (test code = Platelet) 211 133-450 [facility] WorthHxvhdcyPMWPVOPRXN9005-63-37 09:43:00 Test Item Value Reference Range Interpretation Comments WBC (test code = WBC) 14.1 3.7-10.4 [facility] WorthVjoclicUMUETYWWXL8645-08-60 09:43:00 Test Item Value Reference Range Interpretation Comments RBC (test code = RBC) 4.43 4.70-6.10 [facility] WorthBaduegnGNMUDCLMJJ2004-64-32 09:43:00 Test Item Value Reference Range Interpretation Comments Hgb (test code = Hgb) 13.3 14.0-18.0 [facility] WorthVlvidyoKKWIYLELKN1045-50-13 09:43:00 Test Item Value Reference Range Interpretation Comments MCV (test code = MCV) 90.8 80.0-94.0 [facility] WorthEhoaevzIYUUVAOMMY5459-07-64 09:43:00 Test Item Value Reference Range Interpretation Comments MCHC (test code = MCHC) 33.1 32.0-36.0 [facility] WorthNrhbfbvXWNREGINRN8634-07-43 09:43:00 Test Item Value Reference Range Interpretation Comments MCH (test code = MCH) 30.0 pg 27.0-31.0 [facility] WorthPtehfxmHGOXRZLEBB8233-91-42 09:43:00 Test Item Value Reference Range Interpretation Comments RDW (test code = RDW) 14.6 11.5-14.5 [facility] WorthXtjjupgUULVXSSLTP3548-03-43 09:43:00 Test Item Value Reference Range Interpretation Comments Hct (test code = Hct) 40.2 42.0-54.0 [facility] Notes Date/Time Note Provider Source 2022-10-22 14:44:47-00:00 SAMUEL DOWNEYClemente OPERATIVE/PROCEDURE REPORT [place] FACILITY: [facility] Billing #: [id number] Room: [place] [address] MR #: [id number] : 1965 DATE OF PROCEDURE: 10/22/2022 SURGEON: Samuel Downey MD PREOPERATIVE DIAGNOSES: 1. Severe aortic regurgitation, bicuspid aortic valve. 2. Ascending aortic aneurysm. POSTOPERATIVE DIAGNOSES: 1. Severe aortic regurgitation, bicuspid aortic valve. 2. Ascending aortic aneurysm. PROCEDURES PERFORMED: 1. Ascending aortic replacement with a 32 mm Gel weave Dacron graft. 2. Aortic valve replacement with a 25 mm Inspiri s biologic valve. DRUG WORKER: Damaris Donald RES ANESTHETIC: General endotracheal. HISTORY: The patient presented with symptomatic severe aortic regurgitation. He also had an ascending aortic a neurysm. It was moderate size, but very inflammatory, when w e got in there had inflammatory changes all over the place with excessive adhesions. The coronaries were not displaced, so the root did not need to be replaced. He understood the risks of stroke, bleeding, and and agreed to proceed. DESCRIPTION OF PROCEDURE: The patient's chest wa s draped and prepped. Median sternotomy was performed. Sternu m opened. We then cannulated the aortic arch put in a two-sta ge venous cannula, antegrade and retrograde. We then went on pump, decompressed the heart, put in the left ventricu lar vent via the right superior pulmonary vein, crossclamped the rest with cold antegrade and retrograde, which we used int ermittently with topical cooling. We transected the aorta, d issected down to the sinotubular junction and excised the enla rged aorta. We then took down numerous adhesions around the aor ta. We then excised the aortic valve, put 2-0 Ethibond sutur es from aorta to ventricle, brought into the sewing ring of th e valve, tied in place and secured them well. We got a 32 mm G elweave graft. We sewed the proximal anastomosis at the sinotu bular junction end-to-end with running 4-0 Prolene suture with felt buttress exteriorly. We cut the graft to appropriate jay th about 3 inches and then did our distal anastomosis to th e distal ascending aorta end-to-end with running 4-0 Prol marquez suture. We meticulously de-aired the heart, removed the crossing tender ss-clamp, cardioverted, placed ventricular pacing wires an d chest tubes. We weaned the patient from pump. He had coagulop athy as anticipated given the complexity of his procedur e. Once the coagulopathy was reversed, we removed the cannul as, secured the sites and closed with wire and absorbable suture . I directly participated in all caceres portions including cannu lation and the entire period of cardiopulmonary bypass and was otherwise immediately available for the entire operation. Of note, we gave Ancef and vancomycin for antibiotics, which we will discontinue within 48 hours. We did not use any specific DVT prophylaxis since t his is not indicated for cardiac surgical procedures. KAMILAH/MODL /[id number] Electronically signed by: DOWNEYSAMUEL at 12:41:[id number] 2017-01-12 04:14:14-:00 Clinical History : , - pna [facility] Exam : Portable AP view of the chest 01/12/2017 3: 00 AM CDT Comparisons : none Findings : There is asymmetric increase d right hilar density overlying the right heart border. The rest the lungs remain largely clear. The heart is normal in size. The mediastinal contours are normal in appearance. The thoracic spine is age appropriate. The shoul ders are unremarkable. Limited evaluation of the upper abdomen demonstr ates no gross abnormalities. Impression: 1. Suspected right middle lobe atelectasis. 2. Otherwise no acute cardiopulmonary disease 2017-01-12 04:14:-:00 Clinical History : , - pna [facility] Exam : Portable AP view of the chest 01/12/2017 3: 00 AM CDT Comparisons : none Findings : There is asymmetric increase d right hilar density overlying the right heart border. The rest the lungs remain largely clear. The heart is normal in size. The mediastinal contours are normal in appearance. The thoracic spine is age appropriate. The shoul ders are unremarkable. Limited evaluation of the upper abdomen demonstr ates no gross abnormalities. Impression: 1. Suspected right middle lobe atelectasis. 2. Otherwise no acute cardiopulmonary disease 2017-01-12 04::-:00 Clinical History : , - [facility] Exam : Portable AP view of the chest 01/12/2017 3: 00 AM CDT Comparisons : none Findings : There is asymmetric increase d right hilar density overlying the right heart border. The rest the lungs remain largely clear. The heart is normal in size. The mediastinal contours are normal in appearance. The thoracic spine is age appropriate. The shoul ders are unremarkable. Limited evaluation of the upper abdomen demonstr ates no gross abnormalities. Impression: 1. Suspected right middle lobe atelectasis. 2. Otherwise no acute cardiopulmonary disease 2017-01-12 04::-:00 Clinical History : , - pna [place] Exam : Portable AP view of the chest 01/12/2017 3: 00 AM CDT Comparisons : none Findings : There is asymmetric increase d right hilar density overlying the right heart border. The rest the lungs remain largely clear. The heart is normal in size. The mediastinal contours are normal in appearance. The thoracic spine is age appropriate. The shoul ders are unremarkable. Limited evaluation of the upper abdomen demonstr ates no gross abnormalities. Impression: 1. Suspected right middle lobe atelectasis. 2. Otherwise no acute cardiopulmonary disease 2017-01-12 04::-:00 Clinical History : , - pna [facility] Exam : Portable AP view of the chest 01/12/2017 3: 00 AM CDT Comparisons : none Findings : There is asymmetric increase d right hilar density overlying the right heart border. The rest the lungs remain largely clear. The heart is normal in size. The mediastinal contours are normal in appearance. The thoracic spine is age appropriate. The shoul ders are unremarkable. Limited evaluation of the upper abdomen demonstr ates no gross abnormalities. Impression: 1. Suspected right middle lobe atelectasis. 2. Otherwise no acute cardiopulmonary disease 2017-01-12 04::-:00 Clinical History : , - pna [facility] Exam : Portable AP view of the chest 01/12/2017 3: 00 AM CDT Comparisons : none Findings : There is asymmetric increase d right hilar density overlying the right heart border. The rest the lungs remain largely clear. The heart is normal in size. The mediastinal contours are normal in appearance. The thoracic spine is age appropriate. The shoul ders are unremarkable. Limited evaluation of the upper abdomen demonstr ates no gross abnormalities. Impression: 1. Suspected right middle lobe atelectasis. 2. Otherwise no acute cardiopulmonary disease 2017-01-12 04:::00 Clinical History : , - pna [facility] Exam : Portable AP view of the chest 01/12/2017 3: 00 AM CDT Comparisons : none Findings : There is asymmetric increase d right hilar density overlying the right heart border. The rest the lungs remain largely clear. The heart is normal in size. The mediastinal contours are normal in appearance. The thoracic spine is age appropriate. The shoul ders are unremarkable. Limited evaluation of the upper abdomen demonstr ates no gross abnormalities. Impression: 1. Suspected right middle lobe atelectasis. 2. Otherwise no acute cardiopulmonary disease 2017-01-12 04:::00 Clinical History : , - pna [facility] Exam : Portable AP view of the chest 01/12/2017 3: 00 AM CDT Comparisons : none Findings : There is asymmetric increase d right hilar density overlying the right heart border. The rest the lungs remain largely clear. The heart is normal in size. The mediastinal contours are normal in appearance. The thoracic spine is age appropriate. The shoul ders are unremarkable. Limited evaluation of the upper abdomen demonstr ates no gross abnormalities. Impression: 1. Suspected right middle lobe atelectasis. 2. Otherwise no acute cardiopulmonary disease 2017-01-12 04::-:00 Clinical History : , - p[facility] Exam : Portable AP view of the chest 01/12/2017 3: 00 AM CDT Comparisons : none Findings : There is asymmetric increase d right hilar density overlying the right heart border. The rest the lungs remain largely clear. The heart is normal in size. The mediastinal contours are normal in appearance. The thoracic spine is age appropriate. The shoul ders are unremarkable. Limited evaluation of the upper abdomen demonstr ates no gross abnormalities. Impression: 1. Suspected right middle lobe atelectasis. 2. Otherwise no acute cardiopulmonary disease 2017-01-12 04::: Clinical History : , - pna [facility] Exam : Portable AP view of the chest 01/12/2017 3: 00 AM CDT Comparisons : none Findings : There is asymmetric increase d right hilar density overlying the right heart border. The rest the lungs remain largely clear. The heart is normal in size. The mediastinal contours are normal in appearance. The thoracic spine is age appropriate. The shoul ders are unremarkable. Limited evaluation of the upper abdomen demonstr ates no gross abnormalities. Impression: 1. Suspected right middle lobe atelectasis. 2. Otherwise no acute cardiopulmonary disease 2017-01-12 04::: Clinical History : , - pna [facility] Exam : Portable AP view of the chest 01/12/2017 3: 00 AM CDT Comparisons : none Findings : There is asymmetric increase d right hilar density overlying the right heart border. The rest the lungs remain largely clear. The heart is normal in size. The mediastinal contours are normal in appearance. The thoracic spine is age appropriate. The shoul ders are unremarkable. Limited evaluation of the upper abdomen demonstr ates no gross abnormalities. Impression: 1. Suspected right middle lobe atelectasis. 2. Otherwise no acute cardiopulmonary disease 2017-01-12 04::: Clinical History : , - pna [facility] Exam : Portable AP view of the chest 01/12/2017 3: 00 AM CDT Comparisons : none Findings : There is asymmetric increase d right hilar density overlying the right heart border. The rest the lungs remain largely clear. The heart is normal in size. The mediastinal contours are normal in appearance. The thoracic spine is age appropriate. The shoul ders are unremarkable. Limited evaluation of the upper abdomen demonstr ates no gross abnormalities. Impression: 1. Suspected right middle lobe atelectasis. 2. Otherwise no acute cardiopulmonary disease 2017-01-12 04::: Clinical History : , - pna [facility] Exam : Portable AP view of the chest 01/12/2017 3: 00 AM CDT Comparisons : none Findings : There is asymmetric increase d right hilar density overlying the right heart border. The rest the lungs remain largely clear. The heart is normal in size. The mediastinal contours are normal in appearance. The thoracic spine is age appropriate. The shoul ders are unremarkable. Limited evaluation of the upper abdomen demonstr ates no gross abnormalities. Impression: 1. Suspected right middle lobe atelectasis. 2. Otherwise no acute cardiopulmonary disease 2017-01-12 04::: Clinical History : , - pna [facility] Exam : Portable AP view of the chest 01/12/2017 3: 00 AM CDT Comparisons : none Findings : There is asymmetric increase d right hilar density overlying the right heart border. The rest the lungs remain largely clear. The heart is normal in size. The mediastinal contours are normal in appearance. The thoracic spine is age appropriate. The shoul ders are unremarkable. Limited evaluation of the upper abdomen demonstr ates no gross abnormalities. Impression: 1. Suspected right middle lobe atelectasis. 2. Otherwise no acute cardiopulmonary disease 2017-01-12 04::: Clinical History : , - pna [facility] Exam : Portable AP view of the chest 01/12/2017 3: 00 AM CDT Comparisons : none Findings : There is asymmetric increase d right hilar density overlying the right heart border. The rest the lungs remain largely clear. The heart is normal in size. The mediastinal contours are normal in appearance. The thoracic spine is age appropriate. The shoul ders are unremarkable. Limited evaluation of the upper abdomen demonstr ates no gross abnormalities. Impression: 1. Suspected right middle lobe atelectasis. 2. Otherwise no acute cardiopulmonary disease 2017-01-12 04::-:00 Clinical History : , - pna [facility] Exam : Portable AP view of the chest 01/12/2017 3: 00 AM CDT Comparisons : none Findings : There is asymmetric increase d right hilar density overlying the right heart border. The rest the lungs remain largely clear. The heart is normal in size. The mediastinal contours are normal in appearance. The thoracic spine is age appropriate. The shoul ders are unremarkable. Limited evaluation of the upper abdomen demonstr ates no gross abnormalities. Impression: 1. Suspected right middle lobe atelectasis. 2. Otherwise no acute cardiopulmonary disease 2017-01-12 04::-: Clinical History : , - pna [place] Exam : Portable AP view of the chest 01/12/2017 3: 00 AM CDT Comparisons : none Findings : There is asymmetric increase d right hilar density overlying the right heart border. The rest the lungs remain largely clear. The heart is normal in size. The mediastinal contours are normal in appearance. The thoracic spine is age appropriate. The shoul ders are unremarkable. Limited evaluation of the upper abdomen demonstr ates no gross abnormalities. Impression: 1. Suspected right middle lobe atelectasis. 2. Otherwise no acute cardiopulmonary disease 2017-01-12 04::: Clinical History : , - pna [place] Exam : Portable AP view of the chest 01/12/2017 3: 00 AM CDT Comparisons : none Findings : There is asymmetric increase d right hilar density overlying the right heart border. The rest the lungs remain largely clear. The heart is normal in size. The mediastinal contours are normal in appearance. The thoracic spine is age appropriate. The shoul ders are unremarkable. Limited evaluation of the upper abdomen demonstr ates no gross abnormalities. Impression: 1. Suspected right middle lobe atelectasis. 2. Otherwise no acute cardiopulmonary disease 2017-01-12 04::-: Clinical History : , - pna [place] Exam : Portable AP view of the chest 01/12/2017 3: 00 AM CDT Comparisons : none Findings : There is asymmetric increase d right hilar density overlying the right heart border. The rest the lungs remain largely clear. The heart is normal in size. The mediastinal contours are normal in appearance. The thoracic spine is age appropriate. The shoul ders are unremarkable. Limited evaluation of the upper abdomen demonstr ates no gross abnormalities. Impression: 1. Suspected right middle lobe atelectasis. 2. Otherwise no acute cardiopulmonary disease 2017-01-12 04:14:14-00:00 Clinical History : , - pna [place] Exam : Portable AP view of the chest 01/12/2017 3: 00 AM CDT Comparisons : none Findings : There is asymmetric increase d right hilar density overlying the right heart border. The rest the lungs remain largely clear. The heart is normal in size. The mediastinal contours are normal in appearance. The thoracic spine is age appropriate. The shoul ders are unremarkable. Limited evaluation of the upper abdomen demonstr ates no gross abnormalities. Impression: 1. Suspected right middle lobe atelectasis. 2. Otherwise no acute cardiopulmonary disease 2017-01-12 04:14:14-00:00 Clinical History : , - pna [place] Exam : Portable AP view of the chest 01/12/2017 3: 00 AM CDT Comparisons : none Findings : There is asymmetric increase d right hilar density overlying the right heart border. The rest the lungs remain largely clear. The heart is normal in size. The mediastinal contours are normal in appearance. The thoracic spine is age appropriate. The shoul ders are unremarkable. Limited evaluation of the upper abdomen demonstr ates no gross abnormalities. Impression: 1. Suspected right middle lobe atelectasis. 2. Otherwise no acute cardiopulmonary disease 2017-01-11 10:27:30-00:00 Right knee 2 views, 01/11/2017 [place] HISTORY: Postoperative right total knee replacem ent. AP and lateral views of the right knee demonstrate a total right knee arthroplasty in anatomic alignment and position. 2017-01-11 10:27:30-00:00 Right knee 2 views, 01/11/2017 [place] HISTORY: Postoperative right total knee replacem ent. AP and lateral views of the right knee demonstrate a total right knee arthroplasty in anatomic alignment and position. 2017-01-11 10:27:30-00:00 Right knee 2 views, 01/11/2017 [place] HISTORY: Postoperative right total knee replacem ent. AP and lateral views of the right knee demonstrate a total right knee arthroplasty in anatomic alignment and position. 2017-01-11 10:27:30-00:00 Right knee 2 views, 01/11/2017 [place] HISTORY: Postoperative right total knee replacem ent. AP and lateral views of the right knee demonstrate a total right knee arthroplasty in anatomic alignment and position. 2017-01-11 10:27:30-00:00 Right knee 2 views, 01/11/2017 [place] HISTORY: Postoperative right total knee replacem ent. AP and lateral views of the right knee demonstrate a total right knee arthroplasty in anatomic alignment and position. 2017-01-11 10:27:30-00:00 Right knee 2 views, 01/11/2017 [place] HISTORY: Postoperative right total knee replacem ent. AP and lateral views of the right knee demonstrate a total right knee arthroplasty in anatomic alignment and position. 2017-01-11 10:27:30-00:00 Right knee 2 views, 01/11/2017 [place] HISTORY: Postoperative right total knee replacem ent. AP and lateral views of the right knee demonstrate a total right knee arthroplasty in anatomic alignment and position. 2017-01-11 10:27:30-00:00 Right knee 2 views, 01/11/2017 [facility] HISTORY: Postoperative right total knee replacem ent. AP and lateral views of the right knee demonstrate a total right knee arthroplasty in anatomic alignment and position. 2017-01-11 10:27:30-00:00 Right knee 2 views, 01/11/2017 [place] HISTORY: Postoperative right total knee replacem ent. AP and lateral views of the right knee demonstrate a total right knee arthroplasty in anatomic alignment and position. 2017-01-11 10:27:30-00:00 Right knee 2 views, 01/11/2017 [place] HISTORY: Postoperative right total knee replacem ent. AP and lateral views of the right knee demonstrate a total right knee arthroplasty in anatomic alignment and position. 2017-01-11 10:27:30-00:00 Right knee 2 views, 01/11/2017 [place] HISTORY: Postoperative right total knee replacem ent. AP and lateral views of the right knee demonstrate a total right knee arthroplasty in anatomic alignment and position. 2017-01-11 10:27:30-00:00 Right knee 2 views, 01/11/2017 [place] HISTORY: Postoperative right total knee replacem ent. AP and lateral views of the right knee demonstrate a total right knee arthroplasty in anatomic alignment and position. 2017-01-11 10:27:30-00:00 Right knee 2 views, 01/11/2017 [facility] HISTORY: Postoperative right total knee replacem ent. AP and lateral views of the right knee demonstrate a total right knee arthroplasty in anatomic alignment and position. 2017-01-11 10:27:30-00:00 Right knee 2 views, 01/11/2017 [facility] HISTORY: Postoperative right total knee replacem ent. AP and lateral views of the right knee demonstrate a total right knee arthroplasty in anatomic alignment and position. 2017-01-11 10:27:30-00:00 Right knee 2 views, 01/11/2017 [facility] HISTORY: Postoperative right total knee replacem ent. AP and lateral views of the right knee demonstrate a total right knee arthroplasty in anatomic alignment and position. 2017-01-11 10:27:30-00:00 Right knee 2 views, 01/11/2017 [facility] HISTORY: Postoperative right total knee replacem ent. AP and lateral views of the right knee demonstrate a total right knee arthroplasty in anatomic alignment and position. 2017-01-11 10:27:30-00:00 Right knee 2 views, 01/11/2017 [facility] HISTORY: Postoperative right total knee replacem ent. AP and lateral views of the right knee demonstrate a total right knee arthroplasty in anatomic alignment and position. 2017-01-11 10:27:30-00:00 Right knee 2 views, 01/11/2017 [facility] HISTORY: Postoperative right total knee replacem ent. AP and lateral views of the right knee demonstrate a total right knee arthroplasty in anatomic alignment and position. 2017-01-11 10:27:30-00:00 Right knee 2 views, 01/11/2017 [facility] HISTORY: Postoperative right total knee replacem ent. AP and lateral views of the right knee demonstrate a total right knee arthroplasty in anatomic alignment and position. 2017-01-11 10:27:30-00:00 Right knee 2 views, 01/11/2017 [place] HISTORY: Postoperative right total knee replacem ent. AP and lateral views of the right knee demonstrate a total right knee arthroplasty in anatomic alignment and position. 2017-01-11 10:27:30-00:00 Right knee 2 views, 01/11/2017 [place] HISTORY: Postoperative right total knee replacem ent. AP and lateral views of the right knee demonstrate a total right knee arthroplasty in anatomic alignment and position.
--- NOTE | 2023-02-16 14:38 | ER ---
Nurse's Notes [facility] Name: Kyree Freeman Age: 57 yrs Sex: Male : 1965 Arrival Date: 02/16/2023 Time: 13:57 Bed 5 Private MD: Diagnosis: PICC line malfunction Presentation: 02/16 14:09 Chief complaint: Patient states: his picc line will no longer flush as of this morning. ap3 he uses the picc line to self administer antibiotics at home. Coronavirus screen: At this time, the client does not indicate any symptoms associated with coronavirus-19. Ebola Screen: No symptoms or risks identified at this time. Initial Sepsis Screen: Does the patient meet any 2 criteria? HR > 90 bpm. Does the patient have a suspected source of infection? No. Patient's initial sepsis screen is negative. Risk Assessment: Do you want to hurt yourself or someone else? Patient reports no desire to harm self or others. Onset of symptoms is unknown. 14:09 Method Of Arrival: Ambulatory ap3 14:09 Acuity: AJ 3 ap3 Triage Assessment: 14:11 General: Appears in no apparent distress. Behavior is calm, cooperative, appropriate ap3 for age. Pain: Denies pain. Neuro: Level of Consciousness is awake, alert, obeys commands, Oriented to person, place, time, situation, Appropriate for age. Cardiovascular: Patient's skin is warm and dry. Respiratory: Airway is patent Respiratory effort is even, unlabored, Respiratory pattern is regular, symmetrical. Historical: - Allergies: 14:11 No Known Allergies; ap3 - PMHx: 14:11 Cerebrovascular accident; Leaky aorta; ap3 - Immunization history:: Client reports receiving the 2nd dose of the Covid vaccine. - Social history:: Smoking status: Patient denies any tobacco usage or history of. - Family history:: not pertinent. Screenin:12 [facility] ED Fall Risk Assessment (Adult) History of falling in the last 3 months, ap3 including since admission No falls in past 3 months (0 pts). Abuse screen: Denies threats or abuse. Nutritional screening: No deficits noted. Tuberculosis screening: No symptoms or risk factors identified. Assessment: 14:29 Reassessment: red port on PICC line flushes easily with good blood return , unable to iw flush purple port, Dr. Acosta notified. Vital Signs: 14:09 BP 132 / 92; Pulse 108; Resp 18; Temp 97.9; Pulse Ox 100% ; Weight 81.65 kg; ap3 ED Course: 14:00 Patient arrived in ED. rg4 14:02 Cody Acosta MD is Attending Physician. rt 14:10 Triage completed. ap3 14:11 IV without good blood return, patient has existing PICC line to the right upper arm. ap3 line does not pull at this time. 14:12 Arm band placed on right wrist. ap3 14:28 Heather Knutson, RN is Primary Nurse. ko1 14:50 No provider procedures requiring assistance completed. Assist provider with bone marrow ld1 aspiration. Patient did not have IV access during this emergency room visit. 14:56 Patient has correct armband on for positive identification. Allergy band placed. Bed in ld1 low position. Call light in reach. Side rails up X2. Pulse ox on. NIBP on. Door closed. Noise minimized. Warm blanket given. Administered Medications: 14:44 Drug: Rocephin IV 2 grams Route: IV; Rate: calculated rate; Site: PICC; ko1 Medication: 14:56 VIS not applicable for this client. ld1 Outcome: 14:38 Discharge ordered by MD. rt 14:55 Discharged to home ambulatory. ld1 14:55 Condition: stable 14:55 Discharge instructions given to patient, Instructed on discharge instructions, follow up and referral plans. 14:57 Patient left the ED. ld1 Signatures: Talia Prieto RN RN iw Garcia, Rubi rg4 Daylin Conway RN RN 3 Micaela Connors RN RN ld1 Heather Knutson, RN RN ko1 Cody Acosta MD MD rt Corrections: (The following items were deleted from the chart) 14:30 14:29 Reassessment: red port on PICC line flushes easily with good blood return , Dr. mane Acosta notified iw
--- NOTE | 2023-02-16 14:39 | EDPHYS ---
Physician Documentation [facility] Name: Kyree Freeman Age: 57 yrs Sex: Male : 1965 Arrival Date: 02/16/2023 Time: 13:57 Bed 5 Private MD: ED Physician Cody Acosta HPI: 02/16 14:39 This 57 yrs old Male presents to ER via Ambulatory with complaints of Picc Line Problem.rt 14:39 Patient presents to the ED with PICC line malfunction. Patient is receiving 2 g of rt Rocephin daily for endocarditis. Patient was unable to get his PICC line to work today. Came for further evaluation. Denies any acute complaints at this time. Symptoms are mild in severity, no other aggravating alleviating factors.. Historical: - Allergies: 14:11 No Known Allergies; ap3 - PMHx: 14:11 Cerebrovascular accident; Leaky aorta; ap3 - Immunization history:: Client reports receiving the 2nd dose of the Covid vaccine. - Social history:: Smoking status: Patient denies any tobacco usage or history of. - Family history:: not pertinent. ROS: 14:39 Constitutional: Negative for fever, chills, and weight loss, Eyes: Negative for injury, rt pain, redness, and discharge, Cardiovascular: Negative for chest pain, palpitations, and edema, Respiratory: Negative for shortness of breath, cough, wheezing, and pleuritic chest pain, Abdomen/GI: Negative for abdominal pain, nausea, vomiting, diarrhea, and constipation, MS/Extremity: Negative for injury and deformity, Skin: Negative for injury, rash, and discoloration, Neuro: Negative for headache, weakness, numbness, tingling, and seizure, Psych: Negative for depression, anxiety, suicide ideation, homicidal ideation, and hallucinations. Exam: 14:39 Constitutional: This is a well developed, well nourished patient who is awake, alert, rt and in no acute distress. Head/Face: Normocephalic, atraumatic. Chest/axilla: Normal chest wall appearance and motion. Nontender with no deformity. No lesions are appreciated. Cardiovascular: Regular rate and rhythm with a normal S1 and S2. No gallops, murmurs, or rubs. Normal PMI, no JVD. No pulse deficits. Respiratory: Lungs have equal breath sounds bilaterally, clear to auscultation and percussion. No rales, rhonchi or wheezes noted. No increased work of breathing, no retractions or nasal flaring. Abdomen/GI: Soft, non-tender, with normal bowel sounds. No distension or tympany. No guarding or rebound. No evidence of tenderness throughout. Neuro: Awake and alert, GCS 15, oriented to person, place, time, and situation. Cranial nerves II-XII grossly intact. Motor strength 5/5 in all extremities. Sensory grossly intact. Cerebellar exam normal. Normal gait. 14:39 Musculoskeletal/extremity: PICC line to right upper extremity noted, no surrounding erythema, no swelling to the arm. Pulses, motor and sensation intact. Vital Signs: 14:09 BP 132 / 92; Pulse 108; Resp 18; Temp 97.9; Pulse Ox 100% ; Weight 81.65 kg; ap3 MDM: 14:04 Patient medically screened. rt 14:39 Differential Diagnosis PICC line malfunction. Data reviewed: vital signs, nurses notes. rt Counseling: I had a detailed discussion with the patient and/or guardian regarding the historical points, exam findings, and any diagnostic results supporting the discharge/admit diagnosis, the need for outpatient follow up. ED course: Charge nurse able to get for him to function, will give antibiotics, subsequently discharged.. Administered Medications: 14:44 Drug: Rocephin IV 2 grams Route: IV; Rate: calculated rate; Site: PICC; ko1 Disposition Summary: 02/16/23 14:38 Discharge Ordered Location: Home rt Problem: new rt Symptoms: have improved rt Condition: Stable rt Diagnosis - PICC line malfunction rt Followup: rt - With: Private Physician - When: 2 - 3 days - Reason: Discharge Instructions: - Discharge Summary Sheet rt - PICC Home Care Guide rt Forms: - Medication Reconciliation Form rt - Thank You Letter rt - Antibiotic Education rt - Prescription Opioid Use rt - Patient Portal Instructions rt - Leadership Thank You Letter rt Signatures: Daylin Conway RN RN ap3 Heather Knutson RN RN ko1 Cody Acosta MD MD rt
[2023-02-16] MEDS ORDERED: CEFTRIAXONE 1000 MG/VIAL ONE (14:44)
[2023-02-16 15:01] VITALS: BP 132/92; TEMP 97.9; O2SAT 100
== END 2023-02-16 14:57 | disposition home or self-care (01) ==
LOC: ER 13:57
DX: T82.598A Other mechanical complication of other cardiac and vascular devices and implants, initial encounter (principal)
CPT/HCPCS: 96374; 99285; J0696

== ENCOUNTER 2023-02-25 09:55 | Emergency (ER) | payer OTHER ==
--- OUTSIDE RECORDS SUMMARY | 2023-02-25 10:04 | XMS REPORT | Continuity of Care Document ---
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 Source Date/Time Date/Time Type Type Clinicians Facility Department ID 2023-02-23 [facility] [id number] Common 14:07:01 Joshua [id number] [facility] 2023-02-22 [facility] [id number] Common 11:57:00 Joshua [id number] [facility] 2023-02-14 [facility] [id number] Common 11:11:00 Joshua [id number] [facility] 2023-02-10 Inpatient ER NEASON, [facility] [id number] [facility] 15:34:09 [facility] 2023-02-08 Inpatient ER NEASON, SLEH [facility] [id number] SLEH 15:22:41 [facility] 2023-02-08 Inpatient ER NEASON, [facility]H SLE[facility] [id number] SLEH 15:22:32 [facility] 2023-02-08 Inpatient ER NEASON, SLEH SLEH [id number] SLEH 15:22:20 [facility] 2023-02-04 Inpatient ER SUNESARA, SLEH SLEH [id number] SLEH 15:39:12 JUSTIN 2023-01-26 [facility] [id number] Common 13:18:00 Joshua [id number] [facility] 2023-01-19 Outpatient Arrington, [facility] [id number] Common 08:34:00 Joshua [id number] [facility] 2022-12-01 Inpatient ER KALDIS, SLEH SLEH [id number] SLEH 12:35:48 FARNAZ 2022-12-01 Inpatient ER YUDI, [facility]H SLE[facility] [id number] SLEH 04:05:18 [place] 2022-11-30 Inpatient ER STALZER, [facility]H SLEH [id number] SLEH 11:14:50 ARABELLA 2022-11-30 Inpatient ER YUDI, [facility] SLE[facility] [id number] SLEH 05:50:02 [place] 2022-11-29 Inpatient ER YUDI, [facility] SLE[facility] [id number] SLEH 06:13:55 [place] 2022-11-28 Inpatient ER YUDI, [facility]H SLEH [id number] SLEH 05:22:17 [place] 2022-11-27 Inpatient ER YUDI, [facility]H SLEH [id number] SLEH 11:22:39 [place] 2022-07-27 Outpatient ROXANA Quiñonez [facility] [id number] Common 09:13:04 Phuong [id number] [facility] 2023-02-02 2023-02-11 Inpatient ER NEASON, [facility] Emergency [id number] SLEH 13:53:00 18:12:00 KATY 2023-02-04 2023-02-04 Inpatient ER SNOW GEE SLEH SLE [id number] SLEH 17:09:13 00:00:00 2023-02-02 2023-02-02 Emergency ER GREGOR, SLE SLE [id number] SLEH 19:26:10 19:26:[address] [facility] 2023-02-02 2023-02-02 Emergency ER GREGOR, [facility] [id number] SLEH 14:37:45 14:37:[address] [facility] 2023-02-02 2023-02-02 Outpatient ABNER TALLEY, [facility] [id number] [facility] 00:00:00 00:00:00 WENDIE 2023-01-28 2023-01-28 Outpatient ABNER TALLEY, [facility] [id number] [facility] 00:00:00 00:00:00 WENDIE 2023-01-13 2023-01-13 Outpatient ABNER CLEMENTE, [facility] [id number] SLSL 16:00:01 23:59:00 KALA 2023-01-13 2023-01-13 Outpatient ABNER CLEMENTE, [facility] [id number] SLSL 00:00:00 00:00:00 KALA 2022-11-26 2022-12-01 Inpatient ER JULEE, [facility] Emergency [id number] SLEH 12:16:00 18:19:00 FARNAZ 2022-11-26 2022-11-26 Emergency ER JOSÉ MIGUEL, SLE SLE [id number] SLEH 12:32:53 12:32:53 KALA 2022-11-26 2022-11-26 Inpatient ER JULEE, SLE SLE [id number] SLEH 18:55:21 00:00:00 FARNAZ 2022-11-22 2022-11-22 Outpatient [facility] [id number] SLE 10:06:39 23:59:00 2022-11-22 2022-11-22 Outpatient ABNER TALLEY [facility] SLE [id number] SLEH 07:26:10 07:26:10 WENDIE 2022-11-22 2022-11-22 Outpatient [facility] [id number] SLEH 00:00:00 00:00:00 2022-11-18 2022-11-18 Outpatient ABNER CLEMENTE, SLSL SLSL [id number] SLSL 15:41:06 23:59:00 KALA 2022-11-04 2022-11-[address] [facility] 2 [id number] SLE 02:07:00 18:51:00 2022-10-22 2022-10-30 Inpatient SAMUEL MORSE [facility] Surgery [id number] SLE 05:40:00 15:42:00 2022-10-18 2022-10-18 Outpatient THONY [facility] Surgery [id number] SLE 10:51:00 20:11:00 [facility] 2022-10-18 2022-10-18 [facility] [id number] [id number] 10:51:00 20:11:00 Encounter [facility] 2022-10-18 2022-10-18 [facility] [id number] 16:20:00 18:15:00 [facility] 2022-10-15 2022-10-15 Outpatient ABNER DOWNEY SAMUEL [facility] [id number] SLE 11:14:28 23:59:00 2022-10-15 2022-10-15 [facility] Samuel Downey [facility] [id number] 11:14:28 23:59:00 [facility] 2022-10-15 2022-10-[address] [facility] [id number] [id number] 10:30:00 10:45:00 Visit Ced Paulino [facility] 2022-10-15 2022-10-15 Outpatient EL SLE SLE [id number] SLEH 10:21:55 10:21:55 2022-10-15 2022-10-15 [facility] [id number] 00:00:00 00:00:00 [facility] 2022-10-14 2022-10-14 Outpatient EL SLE SLE [id number] SLEH 09:04:36 23:59:00 2022-10-14 2022-10-14 [facility] [id number] 08:10:00 23:59:00 [facility] 2022-10-14 2022-10-14 Travel [facility] [id number] [facility] 00:00:00 00:00:00 [facility] 2022-09-27 2022-09-[address] [facility] [id number] 08:15:00 08:45:00 [facility] 2022-09-27 2022-09-27 Outpatient ABNER MONTEIRO [facility] [id number] SLE 08:12:54 08:12:54 KAREN 2022-09-27 2022-09-27 Outpatient ABNER DOWNEY SAMUEL [facility] SLE [id number] SLEH 00:00:00 00:00:00 2022-09-22 2022-09-22 Outpatient SAMUEL MORSE SLE SLE [id number] SLEH 00:00:00 00:00:00 2022-09-20 2022-09-20 Outpatient ABNER DOWNEYSAMUEL SLE SLE [id number] SLEH 00:00:00 00:00:00 2022-09-09 2022-09-[address] [facility] [id number] 00:00:00 00:00:00 [facility] 2022-08-17 2022-08-17 [facility] Chyna 1.2.840.1 [id number] Methodi 11:44:02 23:59:00 Encounter Kala Heredia [id number] 3.430.2.7 Hospit a .3.547186 l .8 2022-08-17 2022-08-17 [facility] 1.2.840.1 [id number] Methodi 11:44:02 23:59:00 Encounter Kala Heredia [id number] 3.430.2.7 Hospit a .3.926400 l .8 2022-08-16 2022-08-17 Emergency ArringtonAdali quinterokant 1.2.84 0.1 [id number] Methodi 19:56:00 18:17:00 [place] [address] 3.430.2.7 Hospit a .3.653269 l .8 2022-08-16 2022-08-17 Emergency Adali Arringtonkant 1.2.84 0.1 [id number] Methodi 19:56:00 18:17:00 [place] 3.430.2.7 Hospit a .3.445627 l .8 2020-01-16 2020-01-16 Emergency [facility] 06 [id number] [place] 00:00:00 00:00:00 SARANYA [address] 2017-08-18 2017-08-18 Appointmen [facility] Greater [id number] [place] 13:45:00 13:45:00 t; Pratik POTTS i, M.D. Orthopedics jo POTTS M.D. 2017-07-22 2017-07-22 Appointmen [facility] UTP [id number] UT 09:00:00 09:00:00 t; KALA DOUGLAS Phys ici MICHAEL, M.D. ans M.D. 2017-06-27 2017-06-27 Appointmen [facility] UTP [id number] UT 08:30:00 08:30:00 t; Alton MEDEIROS [facility]ha MEDEIROS M.D. 2017-05-06 2017-05-06 Appointmikala [facility] [id number] UT 09:15:00 09:15:00 t; KALA DOUGLAS Phys ici MICHAEL, M.D. ans MFord 2017-04-08 2017-04-08 [facility] RBJ - [id number] UT 10:45:00 10:45:00 t; KALA DOUGLAS [place] [employer] M.Demetrice 2017-03-24 2017-03-24 [facility] [id number] [place] 09:30:00 09:30:00 t; KALA DOUGLAS Phys ici MICHAEL, M.D. ans M.Demetrice 2017-03-21 2017-03-21 [facility] [id number] UT 14:15:00 14:15:00 t; KALA DOUGLAS Phys ici MICHAEL, M.D. ans MFord 2017-03-07 2017-03-07 [facility] UTP [id number] UT 13:45:00 13:45:00 t; KALA DOUGLAS Phys ici MICHAEL, M.D. ans M.Demetrice 2017-02-21 2017-02-21 [facility] UTP [id number] UT 13:00:00 13:00:00 t; KALA DOUGLAS Phys ici MICHAEL, M.D. ans M.D. 2017-01-24 2017-01-24 [facility] [id number] UT 15:15:00 15:15:00 t; KALA DOUGLAS Phys ici MICHAEL, M.D. ans MFord 2017-01-11 2017-01-13 Inpatient [facility] [id number] Memoria 10:05:20 19:50:00 r Kush 00 l [place] Guillermina nn 2017-01-11 2017-01-13 Out[facility] [id number] 05:05:20 14:50:00 Kala 00 Stewart 2017-01-11 2017-01-11 [facility] [id number] UT 07:30:00 07:30:00 t; KALA DOUGLAS Phys ici MICHAEL, M.D. ans M.D. 2017-01-06 2017-01-06 [facility] [id number] UT 16:00:00 16:00:00 t; KALA DOUGLAS Phys ici MICHAEL, M.D. ans M.D. 2016-11-18 2016-11-18 [facility] STELLA, [facility] UTP [id number] UT 14:00:00 14:00:00 t; KALA DOUGLAS Phys ici MICHAEL, M.D. ans M.D. 2016-01-27 2016-01-27 [facility] HÉCTOR, UTP UTP [id number] UT 10:45:00 10:45:00 t; KAMLA ANAYA M.D. Physici ZORAN, ans M.D. 2016-01-02 2016-01-02 [facility] CUPIC, UTP UTP [id number] UT 08:30:00 08:30:00 t; KAMLA ANAYA M.D. Physici ZORAN, ans M.D. 2015-12-29 2015-12-29 [facility] CUPIC, UTP UTP [id number] UT 08:00:00 08:00:00 t; KAMLA ANAYA M.D. Physici ZORAN, ans M.D. 2015-12-15 2015-12-15 [facility] CUPIC, UTP UTP [id number] UT 11:30:00 11:30:00 t; KAMLA ANAYA M.D. Physici ZORAN, ans M.D. 2015-11-10 2015-11-10 [facility] CUPIC, UTP UTP [id number] UT 15:15:00 15:15:00 t; KAMLA ANAYA M.D. Physici ZORAN, ans M.D. 2015-09-23 2015-09-23 [facility] CUPIC, [facility] UTP [id number] UT 11:30:00 11:30:00 t; KAMLA ANAYA M.D. Physici ZORAN, ans M.D. 2015-08-20 2015-08-20 [facility] CUPIC, UTP UTP [id number] UT 08:00:00 08:00:00 t; KAMLA ANAYA [...] Normal or high >=90 G2 Mildly decreased 60-8 9 G3a Mildly to moderately 45-5 9 G3b Moderately to severely 30- 44 G4 Severly decreased 15-29 G5 Kidney failure <15Repo rted eGFR is based on the CK D-EPI 2020 equation that d oes not use a race coefficien tEstimated GFR is not as accurate as Creatinine Clearance in pr edicting glomerular filt ration rate. Estimated GFR i s not applicable for dialysis nikolas gordon Surgical Instrument Maker ID - EMCBC W/PLT COUNT & AUTO [id number] 04:07:10 Test Item Value Reference Range Interpretation [...] 2801) XR CHEST 1 VIEW PORTABLE / [id number] 16:36:05 [facility] : 1965 Sex: MEXAMINATION: XR CHEST 1 VIEW PORTABLE / BEDSIDE INDICATION: Post right arm PICC insertion. Need PICC tiplocationplease.COMPARISON: February 02, 2023 FINDINGS:LINES/TUBES: There is interval insertion of a right arm PICC with itstip overlying the cavoatrial junction. LUNGS: The lungs are well inflated. No focal airspace consolidation.PLEURA: No pleural effusion or pneumothorax.MEDIASTINUM: The cardiomediastinal silhouette appears normal in size andshape.BONES/SOFT TISSUES: No acute osseous injury.ABDOMEN: No free air under the diaphragm.IMPRESSION:No focal pneumonia or airspace edema.Electronically SignedBy: Dustin Wilsong002/10/2023 16:38 CDTWorkstation Name: [id number] 07:00:10 Test Item Value Reference Range Interpretation Comments CULTURE (BEAKER) (test No growth in 5 days code = 1095) The specimen volume collected for this blood culture was below the optimum (10 mL per bottle or 20 mL total). Use of lower volumes may adversely affect recovery and/or detection times of some organisms.BLOOD [id number] 07:00:10 Test Item Value Reference Range Interpretation [...] not appl icable for dialysis patien ts Surgical Instrument Maker ID - EMCBC W/PLT COUNT & AUTO [id number] 05:44:48 Test Item Value Reference Range Interpretation [...] (BEAKER) (test code = 2801) BASIC METABOLIC [id number] 05:47:45 Test Item Value Reference Range Interpretation [...] De scription 1092) sq m Result G1 Norm al or [...] not appl icable for dialysis patien ts Surgical Instrument Maker ID - [id number] 05:47:45 Test Item Value Reference Range Interpretation Comments MAGNESIUM (BEAKER) (test code = 2.0 mg/dL 1.6-2.6 627) Surgical Instrument Maker ID - EMCBC W/PLT COUNT & AUTO [id number] 05:07:54 Test Item Value Reference Range Interpretation [...] PERCENT (BEAKER) (test code = 2801) BLOOD [id number] 10:05:42 Test Item Value Reference Range Interpretation Comments CULTURE A From Anaerobic Bottle (BEAKER) (test Only Same org anis has code = 1095) been isolated f rom cultures(s) of the same body site and collection date . Repeat identifi cation and susceptibil ity testing perform ed only after consultat ion with the [facility] microbiology laboratory.Refe r to previous cultur e of - Streptococcus sanguinis GRAM STAIN From anaerobic RESULT (BEAKER) bottle only: gram (test code = positive cocci in 1123) chains The specimen volume collected for this blood culture was below the optimum (10 mL per bottle or 20 mL total). Use of lower volumes may adversely affect recovery and/or detection times of some organisms.BLOOD [id number] 10:05:10 Test Item Value Reference Interpretation Comments Range CULTURE (BEAKER) STREPTOCOCCUS A From Anaer obic Bottle (test code = SANGUINIS Only Streptococ cus 1095) sanguinisVirida ns group streptoco ccus Ceftriaxone See_Comment S [Automated mes josefina] (test code = 52) The system which generated this result transmitted ref erence range: Suscepti ble 0-1 , Resistant <0 or >1 . The reference r mary was not used to interpret this result as normal/abnor mal. Penicillin G See_Comment I [Automated mes josefina] (test code = 3) The system w [facility] generated this result transmitted ref erence range: Suscepti ble 0-0.12 , Interm ediate <0 or >.12 , Re sistant >2 . The refere nce range was not u sed to interpret this result as normal/abnor mal. Vancomycin (test See_Comment S [Automated message] code = 13) The system [employer] generated this result transmitted ref erence range: [...] not appl icable for dialysis patien ts Surgical Instrument Maker ID - [id number] 07:16:32 Test Item Value Reference Range Interpretation Comments MAGNESIUM (BEAKER) (test code = 2.1 mg/dL 1.6-2.6 627) Surgical Instrument Maker ID - ADMINCBC W/PLT COUNT & AUTO [id number] 05:20:42 Test Item Value Reference Range Interpretation [...] (BEAKER) (test code = 2801) BASIC METABOLIC [id number] 05:10:51 Test Item Value Reference Range Interpretation [...] not appl icable for dialysis patien ts Surgical Instrument Maker ID - [id number] 05:10:51 Test Item Value Reference Range Interpretation Comments MAGNESIUM (BEAKER) (test code = 1.9 mg/dL 1.6-2.6 627) Surgical Instrument Maker ID - MARCOCBC W/PLT COUNT & AUTO [id number] 04:46:44 Test Item Value Reference Range Interpretation [...] (BEAKER) (test code = 2801) BASIC METABOLIC [id number] 05:45:29 Test Item Value Reference Range Interpretation [...] not appl icable for dialysis patien ts Surgical Instrument Maker ID - DARRELL WCBC W/PLT COUNT & AUTO [id number] 05:20:43 Test Item Value Reference Range Interpretation [...] % 0.00-1.00 PERCENT (BEAKER) (test code = 2802) VANCOMYCIN LEVEL, [id number] 20:46:25 Test Item Value Reference Range Interpretation Comments VANCOMYCIN TROUGH (BEAKER) (test 22.3 ug/mL 10.0-20.0 H code = 522) Surgical Instrument Maker ID - ADMINMRSA [id number] 08:27:47 Test Item Value Reference Range Interpretation Comments CULTURE (BEAKER) (test code No MRSA isolated = 1095) BASIC METABOLIC [id number] 07:04:50 Test Item Value Reference Range Interpretation [...] De scription 1092) sq m Result G1 Norm al or high >=90 G2 Mildly decreased 60-89 G3a Mildl y to moderately 45-5 9 G3b Moderately to s everely 30-44 G4 Severl y decreased 15-29 G5 Kidne y failure <15Reported eGF R is based on the CKD-EPI 2020 equation that d oes not use a race coefficientEsti mated GFR is not as accur ate as Creatinine Rayne larson in predicting glom erular filtration rate . Estimated GFR is not appl icable for dialysis patien ts Surgical Instrument Maker ID - ADMINCBC W/PLT COUNT & AUTO [id number] 06:39:41 Test Item Value Reference Range Interpretation [...] code = 2801) CT MAXILLOFACIAL WITH IV [id number] 18:52:26 [facility] : 1965 Sex: MCT MAXILLOFACIAL [...] Signed By: Denisse Encarnacion02/04/2023 18:54 CDTWorkstation Name: [id number] LEVEL, TROUGH 2023-02-04 05:46:26 Test Item Value Reference Range Interpretation Comments VANCOMYCIN TROUGH (BEAKER) (test 21.2 ug/mL 10.0-20.0 H code = 522) Surgical Instrument Maker ID - ADMINBASIC METABOLIC [id number] 05:41:05 Test Item Value Reference Range Interpretation [...] not appl icable for dialysis patien ts Surgical Instrument Maker ID - ADMINCBC W/PLT COUNT & AUTO [id number] 05:34:22 Test Item Value Reference Range Interpretation [...] (test code = 2801) BLOOD CULTURE IDENTIFICATION [id number] 05:18:27 Test Item Value Reference Range Interpretation Comments MCR-1 (BEAKER) (test Non Applicable Not detected code = 0792545220) CTX-M (BEAKER) (test Non Applicable Not detected code = 9761531648) IMP ([place]) (test code = Non Applicable Not Detected 5757343162) KPC (BKR) (test code = Non Applicable Not detected 8962847866) NDM (BKR) (test code = Non Applicable Not Detected 6234337109) OXA-48-LIKE (BKR) Non Applicable Not Detected (test code = 6560597587) VIM (BKR) (test code = Non Applicable Not detected 6897479292) MEC A/C ([place]) (test Non Applicable Not detected code = 9114952237) MEC A/C AND MREJ Non Applicable Not Detected (MRSA) [place] (test code = 9979096930) VAN A/B (VANCOMYCIN Non Applicable Not detected RESISTANCE) (test code = 3406587768) ENTEROCOCCUS FAECALIS Not detected Not detected (BKR) (test code = 6285390043) ENTEROCOCCUS FAECIUM Not detected Not detected (BKR) (test code = 4901559524) LISTERIA MONOCYTOGENES Not detected Not detected (test code = 20160308) STAPHYLOCOCCUS (test Not detected Not detected code = 8570721) STAPHYLOCOCCUS AUREUS Not detected Not detected (test code = 20160512) STAPHYLOCOCCUS Not detected Not detected EPIDERMIDIS ([place]) (test code = 0754573649) STAPHYLOCOCCUS Not detected Not detected LUGDENENSIS (BKR) (test code = 5080577429) STREPTOCOCCUS (test Detected Not detected A Streptoc occus code = 9434248) species (NOT S. pneumoniae, S. agalactiae nor S. pyogenes).First line therapy: Vancomycin. De-escalate bas ed on susceptibilitie s. STREPTOCOCCUS Not detected Not detected AGALACTIAE (GROUP B) (test code = 0762472) STREPTOCOCCUS Not detected Not detected PNEUMONIAE (test code = 0330366) STREPTOCOCCUS PYOGENES Not detected Not detected (GROUP A) (test code = 6086099) ACINETOBACTER Not detected Not detected CALCOACETICUS-BAUMANNI I COMPLEX (BKR) (test code = 7712) BACTEROIDES FRAGILIS Not detected Not detected ([place]) (test code = 5391451390) ENTEROBACTERALES (test Not detected Not detected code = 7777976211) ENTEROBACTER CLOACOE Not detected Not detected COMPLEX (test code = 0305254) ESCHERICHIA COLI (test Not detected Not detected code = 9851804) KLEBSIELLA AEROGENES Not detected Not detected (BKR) (test code = 0503082108) KLEBSIELLA OXYTOCA Not detected Not detected (test code = 9277155) KLEBSIELLA PNEUMONIAE Not detected Not detected GROUP (test code = 4915886406) PROTEUS (test code = Not detected Not detected 3361785) SALMONELLA SPECIES Not detected Not detected ([place]) (test code = 0348392962) SERRATIA MARCESCENS Not detected Not detected (test code = 7709588) HAEMOPHILUS INFLUENZAE Not detected Not detected (test code = 2610749) NEISSERIA MENINGITIDIS Not detected Not detected (test code = 1394074) PSEUDOMONAS Not detected Not detected AERUGINOSA-BEAKER (test code = [id number]) STENOTROPHOMONAS Not detected Not detected MALTOPHILIA (BKR) (test code = [id number]) ELY ALBICANS (test Not detected Not detected code = [id number]) ELY AURIS (KY) Not detected Not detected (test code = [id number]) ELY GLABRATA (test Not detected Not detected code = [id number]) ELY KRUSEI (test Not detected Not detected code = [id number]) ELY PARAPSILOSIS Not detected Not detected (test code = 4135683) ELY TROPICALIS Not detected Not detected (BKR) (test code = 3190042) CRYPTOCOCCUS Not detected Not detected NEOFORMANS/GATTII (test code = [id number]) Other bacteria and resistance markers not targeted by this PCR panel cannot be excluded; therefore clinical correlation and follow up of serology, culture results, and other molecular studies is required. The results are not intended to be used as the sole means for clinical diagnosis or patient management decisions. This sample was tested at the [facility] using the Site Organic Blood Culture ID Panel. It is FDA cleared and has been verified and approved by the [facility] for clinical use. This laboratory is CLIA-certified and College ofAmerican Pathologists (CAP)-accredited to perform high complexity testing.HEMOGLOBIN AND [id number] 18:25:49 Test Item Value Reference Range Interpretation Comments HEMOGLOBIN (BEAKER) (test code = 10.6 GM/DL 13.7-17.5 L 410) HEMATOCRIT (BEAKER) (test code = 33.1 % 40.1-51.0 L 411) Surgical Instrument Maker ID - [id number] 05:06:50 Test Item Value Reference Range Interpretation Comments PHOSPHORUS (BEAKER) (test code = 3.7 mg/dL 2.3-4.7 604) Surgical Instrument Maker ID - ADMINBASIC METABOLIC [id number] 05:06:49 Test Item Value Reference Range Interpretation [...] not appl icable for dialysis patien ts Surgical Instrument Maker ID - [id number] 05:06:49 Test Item Value Reference Range Interpretation Comments MAGNESIUM (BEAKER) (test code = 2.1 mg/dL 1.6-2.6 627) Surgical Instrument Maker ID - ADMINCBC W/PLT COUNT & AUTO [id number] 04:49:44 Test Item Value Reference Range Interpretation [...] (BEAKER) (test code = 2801) URINALYSIS W/ [id number] 22:15:40 Test Item Value Reference Range Interpretation [...] 520) SOURCE(BEAKER) (test code = Urine, Voided 4847) Surgical Instrument Maker ID - [auto]Surgical Instrument Maker ID - techCTA CHEST FOR PULMONARY [id number] 20:21:08[facility] ST[facility] : 1965 Sex: MCTAchest for pulmonary embolus.HISTORY: [...] Signed By: Kirby Viera02/02/2023 20:23 CDTWorkstation Name: [id number] ACID, [id number] 17:51:25 Test Item Value Reference Range Interpretation Comments LACTATE BLOOD VENOUS 0.91 mmol/L 0.50-2.00 Specime n slightly (2) (BEAKER) (test hemolyzed code = 2872) Surgical Instrument Maker ID - ADMINSARS-COV2/INFLUENZA/RSV [id number] 17:28:26 Test Item Value Reference Range Interpretation Comments SARS-COV2/RT-PCR Negative Negative The SARS-Co V-2 target (test code = nucleic acids a re not 5654016) detected in thi s specimen. Negat naif [...] individuals milagros pected of COVID-19 by the [facility]. INFLUENZA A RT-PCR Negative Negative The Flu A target nucleic (test code = acids are not d etected in 19100710) this specimen. INFLUENZA B RT-PCR Negative Negative The Flu B target nucleic (test code = acids are not d etected in 19100711) this specimen. RSV RT-PCR (test Negative Negative The RSV tar get nucleic code = 4928315) acids are no t detected in this [...] Xpress SARS-CoV-2/Flu/RSV by their healthcareprovider. Results from [facility] Xpert Xpress SARS-CoV-2/Flu/RSV test should be correlated [...] of the Act.Fact Sheet for Healthcare Providers:https ://www.[employer].com/Documents/Xpert%20Xpress%20SARS%20CoV-2/Fact%20Sheets/302-390 2%10BLSE-UQX-4%20HEALTHCARE%20PROVIDERS%20FACT%20SHEET.pdfFact Sheet for Healthcare Patients:https://www.[employer]/Docum ents/Xpert%20Xpress%20SARS%20Cov-2/Fact%20Sheets/302-3801%92FJBU-NNA-7%20PATIENT %20FACT%20SHEET.pdfBLOOD GAS, [id number] 16:13:03 Test Item Value Reference Range Interpretation [...] code = 1819) 21.0 HIGH SENSITIVITY TROPONIN [id number] 15:21:16 Test Item Value Reference Range Interpretation Comments HIGH SENSITIVITY 6 pg/ml See_Comment [Automated message] TROPONIN I (test code = The system which [id number]) generated this result transmitted ref erence range: <=35. Th e reference range was not used to interpr et this result as normal/abnormal . Surgical Instrument Maker ID - ADMINThe MANNEQUIN MOLDER STAT High Sensitivity Troponin-I results should be used in conjunction with other diagnostic information such as ECG, clinical observations and information, and patientsymptoms to aid in the diagnosis of NE. B-TYPE NATRIURETIC FACTOR (BNP)2023-02-02 15:21:16 Test Item Value Reference Range Interpretation Comments B-TYPE NATRIURETIC PEPTIDE (BEAKER) 132 pg/mL 0-100 H (test code = 700) Surgical Instrument Maker ID - ADMINCOMPREHENSIVE METABOLIC [id number] 15:20:14 Test Item Value Reference Range Interpretation [...] 30-44 G4 Severl y decreased 15-29 G5 Kidne y failure <15Reported eGF R is based on the CKD-EPI 2020 equation that d oes not use a race coefficientEsti mated GFR is not as accur ate as Creatinine Rayne marsha in predicting glom erular filtration rate . Estimated GFR is not appl icable for dialysis patien ts Surgical Instrument Maker ID - ADMINLACTIC ACID, [id number] 15:15:12 Test Item Value Reference Range Interpretation Comments LACTATE BLOOD VENOUS 2.30 mmol/L 0.50-2.00 H Specime n moderately (2) (BEAKER) (test hemolyzed code = 2872) Surgical Instrument Maker ID - [id number] 15:06:50 Test Item Value Reference Range Interpretation Comments PARTIAL THROMBOPLASTIN TIME 22.9 seconds 22.5-36.0 (BEAKER) (test code = 760) PROTHROMBIN TIME/[id number] 15:06:08 Test Item Value Reference Range Interpretation Comments PROTIME (BEAKER) 17.8 seconds 11.9-14.2 H (test code = 759) INR (BEAKER) (test 1.56 See_Comment [Automat ed message] code = 370) The system [employer] generated this result transmitted ref erence range: <=5.90. The reference range was not used to int erpret this result as normal/abnormal . RECOMMENDED COUMADIN/WARFARIN INR THERAPY RANGESSTANDARD DOSE: 2.0 - 3.0 Includes: PROPHYLAXIS for venous thrombosis, systemic embolization; TREATMENT for venous thrombosis and/or pulmonary embolus.HIGH RISK: Target INR is 2.5-3.5 for patients with mechanical heart valves.CBC W/PLT COUNT & AUTO [id number] 15:01:28 Test Item Value Reference Range Interpretation [...] 2801) XR CHEST 1 VIEW PORTABLE / [id number] 15:00:49 [facility] : 1965 Sex: MTECHNIQUE: Frontal view of the chest.INDICATION: SHORTNESS OF BREATHfever.COMPARISON: 01/13/2023.FINDINGS:LINES/TUBES: None.HEART AND MEDIASTINUM: Cardiomediastinal contour is stable. Prior mediansternotomy. LUNGS: The lungs are well inflated and clear. No consolidation orpulmonary edema.PLEURA: Small leftpleural effusion. No pneumothorax.SOFT TISSUES AND BONES: Unremarkable.IMPRESSION:Persistent small left pleural effusion. No pulmonary edema or focalconsolidative process.Electronically Signed By: Brown yHlton02/02/2023 15:02 CDTWorkstation Name: [id number] CHEST 2 VIEWS 2023-01-13 16:20:51 [facility] F[facility]AN KALA STONE : 1965 Sex: MChest PA and lateralCOMPARISON STUDY: 12/01/2022History provided: R06.02Heart size normal. Small left pleural effusion. Lungs are otherwiseclear and vascularity normal. Prior sternotomy and valvular prosthesis.Electronically Signed By: Cj Leiva01/13/2023 16:56 CDTWorkstation Name: [id number] CULTURE + SMEAR (NON-SPUTUM)2023-01-12 10:14:21 Test Item Value Reference Range Interpretation Comments CULTURE (BEAKER) (test No acid-fast bacilli code = 1095) isolated in 42 days AFB SMEAR (BEAKER) No acid fast bacilli (test code = 994) seen FUNGUS CULTURE + [id number] 08:35:45 Test Item Value Reference Range Interpretation Comments CULTURE (BEAKER) (test No fungus isolated in code = 1095) 28 days FUNGUS SMEAR (BEAKER) No fungi seen (test code = 1406) XR CHEST 1 VIEW PORTABLE / [id number] 10:18:00 [facility] : 1965 Sex: MCLINICAL HISTORY: left pleural effusionTECHNIQUE: 1 view of the chest.COMPARISON: 11/30/2022IMPRESSION:There is increased left basilar atelectasis. A small left pleuraleffusion is unchanged. The right lung appears well-aerated. Thecardiomediastinal silhouette is magnified by technique with sternotomywires. Electronically Signed By: Roxanne Tang12/01/2022 10:20 CDTWorkstation Name: [id number] 05:08:27 Test Item Value Reference Range Interpretation Comments MAGNESIUM (BEAKER) (test code = 2.1 mg/dL 1.6-2.6 627) Surgical Instrument Maker ID - ADMINBASIC METABOLIC [id number] 05:08:26 Test Item Value Reference Range Interpretation [...] not appl icable for dialysis patien ts Surgical Instrument Maker ID - ADMINB-TYPE NATRIURETIC FACTOR (BNP)2022-12-01 04:14:41 Test Item Value Reference Range Interpretation Comments B-TYPE NATRIURETIC PEPTIDE (BEAKER) 112 pg/mL 0-100 H (test code = 700) Surgical Instrument Maker ID - MMCBC (HEMOGRAM ONLY)2022-12-01 03:58:38 Test [...] 413) XR CHEST 1 VIEW PORTABLE / [id number] 12:27:28 [facility] : 1965 Sex: MCLINICAL HISTORY: CT removalTECHNIQUE: 1 view of the chest.COMPARISON: 11/29/2022IMPRESSION:No pneumothorax status post chest tube removal. Elevation lefthemidiaphragm is again seen with adjacent left lung base atelectasis andblunting of the costophrenic angle. The right lung appears well-aerated.The cardiomediastinal silhouette is unchanged with sternotomy.Electronically Signed By: Roxanne Tang312:29 CDTWorkstation Name: [id number] METABOLIC PANEL 2022-11-30 06:25:17 Test Item Value [...] not appl icable for dialysis patien ts Surgical Instrument Maker ID - [id number] 06:25:17 Test Item Value Reference Range Interpretation Comments MAGNESIUM (BEAKER) (test code = 2.2 mg/dL 1.6-2.6 627) Surgical Instrument Maker ID - ADMINCBC (HEMOGRAM ONLY)2022-11-30 04:46:03 Test [...] = 413) BODY FLUID CULTURE + GRAM [id number] 17:12:36 Test Item Value Reference Range Interpretation Comments CULTURE (BEAKER) (test code No growth = 1095) GRAM STAIN RESULT (BEAKER) No WBCs (test code = 1123) GRAM STAIN RESULT (BEAKER) No organisms seen (test code = 02945) BODY FLUID CULTURE + GRAM [id number] 17:12:12 Test Item Value Reference Range Interpretation Comments CULTURE (BEAKER) (test code No growth = 1095) GRAM STAIN RESULT (BEAKER) <1+ WBCs (test code = 1123) GRAM STAIN RESULT (BEAKER) No organisms seen (test code = 95520) COMPREHENSIVE METABOLIC [id number] 10:50:18 Test Item Value Reference Range Interpretation [...] (BEAKER) (test code = hemoly zed 635) [id number] 10:38:57 Test Item Value Reference Range Interpretation Comments MAGNESIUM (BEAKER) (test code = 2.1 mg/dL 1.6-2.6 627) XR CHEST 1 VIEW PORTABLE / [id number] 09:33:26 [facility] : 1965 Sex: MCHEST ONE VIEWHISTORY: Left pleural effusion, chest tubeCOMPARISON: 11/28/2022FINDINGS:Single portable APexamination of the chest was performed. A left-sided chest tube remains in place. Small left pleuraleffusionand mild left basilar atelectasis are similar in appearance. Nopneumothorax is identified.The right lung is clear. The left diaphragm remains mildly elevated.Cardiac shadow normal in size. Sternotomy wires are present.Electronically Signed By: Pradeep Oneil11/29/2022 09:35 CDTWorkstation Name: [id number] (HEMOGRAM ONLY) 2022-11-29 04:48:14 Test Item Value [...] 413) XR CHEST 1 VIEW PORTABLE / [id number] 08:17:15 [facility] : 1965 Sex: MEXAMINATION: XR CHEST 1 VIEW PORTABLE / BEDSIDE.INDICATION: 56-year-old male with left pleural effusion.COMPARISON: Chest radiograph dated 11/27/2022.FINDINGS/ IMPRESSION:A left-sided chest tube is noted. Left basilar atelectasis with smallresidual left pleural effusion. No definite pneumothorax. Elevated lefthemidiaphragm. Other findings remain unchanged.Electronically Signed By: Pradeep Franz11/28/2022 08:19 CDTWorkstation Name: [id number] METABOLIC [id number] 07:29:32 Test Item Value Reference Range Interpretation [...] not appl icable for dialysis patien ts Surgical Instrument Maker ID - [id number] 07:29:32 Test Item Value Reference Range Interpretation Comments MAGNESIUM (BEAKER) (test code = 1.8 mg/dL 1.6-2.6 627) Surgical Instrument Maker ID - ADMINB-TYPE NATRIURETIC FACTOR (BNP)2022-11-28 06:32:11 Test Item Value Reference Range Interpretation Comments B-TYPE NATRIURETIC PEPTIDE (BEAKER) 127 pg/mL 0-100 H (test code = 700) Surgical Instrument Maker ID - mmCBC (HEMOGRAM ONLY)2022-11-28 05:52:42 Test [...] 413) XR CHEST 1 VIEW PORTABLE / [id number] 12:21:53 [facility] : 1965 Sex: MHISTORY: Status post chest [...] Signed By: Pradeep Oneil11/27/2022 12:23 CDTWorkstation Name: [id number] FLUID CELL COUNT WITH [id number] 11:57:26 Test Item Value Reference Range Interpretation Comments APPEARANCE FLUID (BEAKER) (test Hazy Clear A code = 510) COLOR FLUID (BEAKER) (test code [place] Colorless, Straw A = 511) RBC FLUID (BEAKER) (test code = 30346 /cu mm <=1 H 513) TOTAL NUCLEATED [...] = 2873) BODY FLUID CELL COUNT WITH [id number] 11:54:57 Test Item Value Reference Range Interpretation Comments APPEARANCE FLUID (BEAKER) (test Hazy Clear A code = 510) COLOR FLUID (BEAKER) (test code [place] Colorless, Straw A = 511) RBC FLUID (BEAKER) (test code = 30364 /cu mm <=1 H 513) TOTAL NUCLEATED [...] (BEAKER) EDTA Tube (test code = 2873) [id number] 05:37:38 Test Item Value Reference Range Interpretation Comments MAGNESIUM (BEAKER) 2.0 mg/dL 1.6-2.6 Specimen slightly (test code = 627) hemolyzed Surgical Instrument Maker ID - ADMINBASIC METABOLIC [id number] 05:37:38 Test Item Value Reference Range Interpretation [...] not as accur ate as Creatinine Rayne raderce in predicting glom erular filtration rate . Estimated GFR is not appl icable for dialysis patien ts Surgical Instrument Maker ID - ADMINCBC (HEMOGRAM ONLY)2022-11-27 05:02:11 Test [...] 0-0 (BEAKER) (test code = 413) C-REACTIVE [id number] 19:45:08 Test Item Value Reference Range Interpretation Comments C-REACTIVE PROTEIN (BEAKER) (test 15.72 mg/dL 0.00-0.50 H code = 676) Surgical Instrument Maker ID - MMCT CHEST WITHOUT IV [id number] 19:44:56 [facility] : 1965 Sex: MTECHNIQUE: CT scan of [...] Signed By: Jaylen Madera 19:48 CDTWorkstation Name: [id number] 19:32:59 Test Item Value Reference Range Interpretation Comments TRIGLYCERIDES (BEAKER) (test code = 96 mg/dL 540) CHOLESTEROL (BEAKER) (test code = 123 mg/dL 631) HDL CHOLESTEROL (BEAKER) (test code 36 mg/dL = 976) LDL CHOLESTEROL CALCULATED (BEAKER) 68 mg/dL (test code = 633) Triglyceride Reference Range: Low Risk <150 Borderline 150-199 High Risk 200- 499 Very High Risk >=500Cholesterol Reference Range: Low Risk <200 Borderline 200-239 High Risk >240HDL Cholesterol Reference Range: Low Risk >=60 High Risk <40LDL Cholesterol Reference Range: Optimal <100 Near Optimal 100-129 Borderline 130-159 High 160-189 Very High >=190 Surgical Instrument Maker ID - MMXR CHEST 1 VIEW PORTABLE / [id number] 13:54:50 [facility] : 1965 Sex: MXR CHEST 1 VIEW PORTABLE / BEDSIDECLINICAL HISTORY: SHORTNESS OF BREATH TECHNIQUE: Single view of the chest.COMPARISON: November 22, 2022IMPRESSION:Increased left lung opacity compatible with large effusionwith possible superimposed atelectasis or pneumonia. Enlarged cardiacsilhouette is stable. Right lung iswell aerated. No pneumothorax.Stable osseous structures. Median sternotomy wires noted.Electronically Signed By: Jagdeep Aguirre11/26/2022 13:56 CDTWorkstation Name: [id number] SENSITIVITY TROPONIN [id number] 13:15:29 Test Item Value Reference Range Interpretation Comments HIGH SENSITIVITY TROPONIN I (test 19 pg/ml <=35 code = 8119005) Surgical Instrument Maker ID - ADMINThe MANNEQUIN MOLDER STAT High Sensitivity Troponin-I results should be used in conjunction with other diagnostic information such as ECG, clinical observations and information, and patientsymptoms to aid in the diagnosis of NE. B-TYPE NATRIURETIC FACTOR (BNP)2022-11-26 13:15:06 Test Item Value Reference Range Interpretation Comments B-TYPE NATRIURETIC PEPTIDE (BEAKER) 236 pg/mL 0-100 H (test code = 700) Surgical Instrument Maker ID - ADMINPROTHROMBIN TIME/[id number] 13:10:22 Test Item Value Reference Range Interpretation [...] not appl icable for dialysis patien ts Surgical Instrument Maker ID - ADMINCBC W/PLT COUNT & AUTO [id number] 12:57:03 Test Item Value Reference Range Interpretation [...] (test code = 2801) XR CHEST 2 [id number] 10:36:56 [facility] : 1965 Sex: MXR CHEST 2 VIEWSCLINICAL HISTORY: Shortness of breath, pleural effusionTECHNIQUE: 2 views of the chestCOMPARISON: 11/18/2022IMPRESSION:Large left pleural effusion is stable. No new lung consolidation. Noright pleural effusion. No pneumothorax. Enlarged cardiac silhouettecompatible with cardiomegaly. Mediastinal contours within normal limits.Median sternotomy and cardiac valve prosthesis. The osseous structuresappear stable.Electronically Signed By: Jagdeep Smith/ 10:39 CDTWorkstation Name: [id number] CHEST 2 [id number] 17:34:59 [facility] : 1965 Sex: MEXAMINATION: XR [...] Signed By: Dustin Dang11/18/2022 17:37 CDTWorkstation Name: [id number] LAB ORDER 2022-11-18 16:17:36 Test Item Value Reference Range Interpretation Comments SCAN RESULT (test code = 1232621) NU MISCELLANEOUS LAB [id number] 16:13:17 Test Item Value Reference Range Interpretation Comments SCAN RESULT (test code = 8908637) NU BASIC METABOLIC [id number] 06:26:01 Test Item Value Reference Range Interpretation [...] not appl icable for dialysis patien ts Surgical Instrument Maker ID - [id number] 06:26:01 Test Item Value Reference Range Interpretation Comments MAGNESIUM (BEAKER) (test code = 2.3 mg/dL 1.6-2.6 627) Surgical Instrument Maker ID - MMCBC W/PLT COUNT & AUTO [id number] 05:58:47 Test Item Value Reference Range Interpretation [...] 0.00-1.00 PERCENT (BEAKER) (test code = 2801) [id number] 05:50:50 Test Item Value Reference Range Interpretation Comments PARTIAL THROMBOPLASTIN TIME 32.5 seconds 22.5-36.0 (BEAKER) (test code = 760) [id number] 00:00:54 Test Item Value Reference Range Interpretation Comments PARTIAL THROMBOPLASTIN TIME 35.7 seconds 22.5-36.0 (BEAKER) (test code = 760) [id number] 17:00:51 Test Item Value Reference Range Interpretation Comments PARTIAL THROMBOPLASTIN TIME 71.5 seconds 22.5-36.0 H (BEAKER) (test code = 760) [id number] 10:28:45 Test Item Value Reference Range Interpretation [...] mechanical heart valves.RAD, CHEST, 1 VIEW, NON [id number] 07:32:00Reason for exam:->Pre-opShould this be performed at the bedside?->YesCOMM[facility] STONE : 1965 Sex: MFINAL REPORT CLINICAL HISTORY: Pre-op TECHNIQUE: 1 view of the chest. COMPARISON: 10/28/2022 IMPRESSION: Mild bilateral lung opacities and blunting of both costophrenic angles is unchanged. The cardiomediastinal silhouette is magnified by technique with sternotomy wires. Signed: Roxanne Tang MDReport Verified Date/Time: 11/04/2022 07:32:35 [id number] 04:56:57 Test Item Value Reference Range Interpretation Comments PHOSPHORUS (BEAKER) (test code = 3.1 mg/dL 2.3-4.7 604) Surgical Instrument Maker ID - DBBASIC METABOLIC [id number] 04:56:56 Test Item Value Reference Range Interpretation [...] 30-44 G4 Severl y decreased 15-29 G5 Kidne y failure <15Reported eGF R is based on the CKD-EPI 202 equation that d oes not use a race coefficientEsti mated GFR is not as accur ate as Creatinine Rayne larson in predicting glom erular filtration rate . Estimated GFR is not appl icable for dialysis patien ts Surgical Instrument Maker ID - [id number] 04:56:56 Test Item Value Reference Range Interpretation Comments MAGNESIUM (BEAKER) (test code = 2.3 mg/dL 1.6-2.6 627) Surgical Instrument Maker ID - [id number] 04:04:33 Test Item Value Reference Range Interpretation Comments PARTIAL THROMBOPLASTIN TIME 34.4 seconds 22.5-36.0 (BEAKER) (test code = 760) [id number] 04:04:11 Test Item Value Reference Range Interpretation Comments FIBRINOGEN LEVEL (BEAKER) (test 651 mg/dl 225-434 H code = 658) PROTHROMBIN TIME/[id number] 04:03:54 Test Item Value Reference Range Interpretation [...] mechanical heart valves.CBC W/PLT COUNT & AUTO [id number] 03:58:22 Test Item Value Reference Range Interpretation [...] PERCENT (BEAKER) (test code = 2801) TISSUE [id number] 11:45:27Surgical Pathology Report Case: [id number] Authorizing Provider: Samuel Downey MD Collected: 10/22/2022 10:17 AM Ordering Location: [facility] Received: 10/25/2022 07:53 AM PERIOPERATIVE SERVICES Pathologist: Lorena Bridges MD Specimen: Aorta, ascending aorta RULE OUT AORTITIS A. Aorta, ascending, replacement: - Bicuspid valve-associated aortopathy - Histopathologic features consistent withaortic aneurysm - No histopathologic evidence of inflammatory aortopathy or aortic atherosclerotic di sease - See comment Signing Pathologist Direct Phone Line: [phone] signed by Lorena Bridges MD on 11/01/2022 [...] thickening, prominent nerve bundles, thick- walled vasa vasorum, mild chronic inflammation, focal interstitial edema and adhesions are noted in the aortic adventitia,consistent with aortic aneurysm- related reactive changes in the context of the dilated aorta impacting adjacent tissue structures. No inflammatory infiltrate is seen in the aortic media, and there is no histopathologic evidence of severe cystic-type aortic medial degeneration to suggest aortic medial involvement by an inflammatory condition. [id number] x2 Aneurysm of ascending aorta without rupture, bicuspid aortic valve, severe aortic regurgitationA. AortaReceived in formalin labeled with the patient's name, accession number and "ascending aorta" is a 10.0 x 2.0 x 0.3 cm portion of sen aortic tissue. The tunica intima is sen, smooth and devoid of plaque. The tunica adventitia is sen-yellow, focally hemorrhagic and shaggy. Sectioning reveals a sen, fibrous cut surface that is devoid of calcifications. Metallurgist Helper sections are submitted in A1-A2.NIKOLAS Red HT [...] evaluated Immunohistochemistry technical testing was performed at [facility], Pathology Laboratory where it was developed [...] qualified to perform high complexity clinical laboratory testing.[facility], Department of Pathology, [address] [place] [address], [facility], [address] [place] [address], [facility] of [facility], [address] [place] [address], [id number] 06:25:36 Test Item Value Reference Range Interpretation Comments MAGNESIUM (BEAKER) 2.2 mg/dL 1.6-2.6 Specimen slightly (test code = 627) hemolyzed Surgical Instrument Maker ID - [id number] 06:25:36 Test Item Value Reference Range Interpretation Comments PHOSPHORUS (BEAKER) 3.3 mg/dL 2.3-4.7 Specimen slightly (test code = 604) hemolyzed Surgical Instrument Maker ID - MARCOBASIC METABOLIC [id number] 06:25:36 Test Item Value Reference Range Interpretation [...] not appl icable for dialysis patien ts Surgical Instrument Maker ID - MARCOCBC W/PLT COUNT & AUTO [id number] 05:52:17 Test Item Value Reference Range Interpretation [...] (BEAKER) (test code = 2801) URINALYSIS W/ [id number] 12:39:00 Test Item Value Reference Range Interpretation [...] (test code Urine, Clean Catch = 2795) Surgical Instrument Maker ID - [auto]Surgical Instrument Maker ID - [id number] 05:54:52 Test Item Value Reference Range Interpretation Comments MAGNESIUM (BEAKER) (test code = 2.3 mg/dL 1.6-2.6 627) Surgical Instrument Maker ID - [id number] 05:54:52 Test Item Value Reference Range Interpretation Comments PHOSPHORUS (BEAKER) (test code = 3.1 mg/dL 2.3-4.7 604) Surgical Instrument Maker ID - MMBASIC METABOLIC [id number] 05:54:51 Test Item Value Reference Range Interpretation [...] rted eGFR is based on the CKD-EPI 202 equation t hat does not use a race coefficientEsti mated GFR is not as accur ate as Creatinine Rayne marsha in predicting glom erular filtration rate . Estimated GFR is not appl icable for dialysis patien ts Surgical Instrument Maker ID - MMCBC W/PLT COUNT & AUTO [id number] 05:44:16 Test Item Value Reference Range Interpretation [...] (test code = 2801) RAD, CHEST, 2 [id number] 16:45:00Reason for exam:->fever [facility] : 1965 Sex: MFINAL REPORT [...] small bilateral pleural effusions. Signed: William Sifuentes MDReport Verified Date/Time: 10/28/2022 16:45:38 Electronicallysigned by: WILLIAM SIFUENTES M.D. on 10/28/2022 04:45 [id number] 06:57:12 Test Item Value Reference Range Interpretation Comments MAGNESIUM (BEAKER) (test code = 2.2 mg/dL 1.6-2.6 627) Surgical Instrument Maker ID - [id number] 06:57:12 Test Item Value Reference Range Interpretation Comments PHOSPHORUS (BEAKER) (test code = 2.7 mg/dL 2.3-4.7 604) Surgical Instrument Maker ID - MMBASIC METABOLIC [id number] 06:57:11 Test Item Value Reference Range Interpretation [...] De scription 1092) sq m Result G1 Norm al or high >=90 G2 Mildly decreased 60-89 G3a Mildl y to moderately 45-5 9 G3b Moderately to s everely 30-44 G4 Severl y decreased 15-29 G5 Kidne y failure <15Reported eGF R is based on the CKD-EPI 2020 equation that d oes not use a race coefficientEsti mated GFR is not as accur ate as Creatinine Rayne larson in predicting glom erular filtration rate . Estimated GFR is not appl icable for dialysis patien ts Surgical Instrument Maker ID - MMCBC W/PLT COUNT & AUTO [id number] 06:15:49 Test Item Value Reference Range Interpretation [...] 0.00-1.00 PERCENT (BEAKER) (test code = 2801) [id number] 06:27:33 Test Item Value Reference Range Interpretation Comments MAGNESIUM (BEAKER) (test code = 2.2 mg/dL 1.6-2.6 627) Surgical Instrument Maker ID - [id number] 06:27:33 Test Item Value Reference Range Interpretation Comments PHOSPHORUS (BEAKER) (test code = 2.0 mg/dL 2.3-4.7 L 604) Surgical Instrument Maker ID - BSBASIC METABOLIC [id number] 06:27:32 Test Item Value Reference Range Interpretation [...] not appl icable for dialysis patien ts Surgical Instrument Maker ID - BSCBC W/PLT COUNT & AUTO [id number] 05:12:26 Test Item Value Reference Range Interpretation [...] code = 2801) URINALYSIS W/ REFLEX URINE [id number] 18:14:27 Test Item Value Reference Range Interpretation [...] = 516) SOURCE(BEAKER) (test code = 2795) Surgical Instrument Maker ID - [id number] 06:06:06 Test Item Value Reference Range Interpretation Comments MAGNESIUM (BEAKER) (test code = 2.2 mg/dL 1.6-2.6 627) Surgical Instrument Maker ID - [id number] 06:06:06 Test Item Value Reference Range Interpretation Comments PHOSPHORUS (BEAKER) (test code = 2.2 mg/dL 2.3-4.7 L 604) Surgical Instrument Maker ID - ADMINBASIC METABOLIC [id number] 06:06:05 Test Item Value Reference Range Interpretation [...] not appl icable for dialysis patien ts Surgical Instrument Maker ID - ADMINCBC W/PLT COUNT & AUTO [id number] 05:35:30 Test Item Value Reference Range Interpretation [...] GRANULOCYTES-RELATIVE PERCENT (BEAKER) (test code = 2801) [id number] 07:31:06 Test Item Value Reference Range Interpretation Comments MAGNESIUM (BEAKER) (test code = 2.2 mg/dL 1.6-2.6 627) Surgical Instrument Maker ID - [id number] 07:31:06 Test Item Value Reference Range Interpretation Comments PHOSPHORUS (BEAKER) (test code = 2.2 mg/dL 2.3-4.7 L 604) Surgical Instrument Maker ID - MMBASIC METABOLIC [id number] 07:31:05 Test Item Value Reference Range Interpretation [...] De scription 1092) sq m Result G1 Norm al or high >=90 G2 Mildly decreased 60-89 G3a Mildl y to moderately 45-5 9 G3b Moderately to s everely 30-44 G4 Severl y decreased 15-29 G5 Kidne y failure <15Reported eGF R is based on the CKD-EPI 2020 equation that d oes not use a race coefficientEsti mated GFR is not as accur ate as Creatinine Rayne marsha in predicting glom erular filtration rate . Estimated GFR is not appl icable for dialysis patien ts Surgical Instrument Maker ID - MMOperator ID - MMCBC W/PLT [...] = 2801) RAD, CHEST, 1 VIEW, NON [id number] 08:18:00Reason for exam:->Post OpShould this be performed at the bedside?->Yes [facility] : 1965 Sex: MFINAL REPORT Exam: RAD, CHEST, 1 VIEW, NON DEPTDate: 10/24/2022 8:18 AM Indication:Post OpComparison: Chest radiograph from yesterday. IMPRESSION: Lines/Tubes:[place]-Nader catheter has been removed. The sheath remains in place. Additional support devices/postoperative changes are unchanged. Lungs and Pleura :Unchanged bilateral interstitial opacities. Small bilateral pleural effusions. No pneumothorax. Heart/Mediastinum:Unchanged. Bones/Soft Tissues: No acute osseous abnormality. Upper abdomen: Unremarkable. Signed: Ana Arrington MDReport Verified Date/Time: 10/24/2022 08:18:57 CALCIUM, [id number] 02:46:49 Test Item Value Reference Range Interpretation Comments CALCIUM IONIZED (BEAKER) (test 1.15 mmol/L 1.12-1.27 code = 698) PH, BLOOD (BEAKER) (test code = 7.41 1810) OXYGEN SATURATION, [id number] 02:46:34 Test Item Value Reference Range Interpretation Comments O2 SATURATION (MEASURED) (BEAKER) 64.4 % (test code = 1455) [id number] 02:45:29 Test Item Value Reference Range Interpretation Comments MAGNESIUM (BEAKER) (test code = 2.2 mg/dL 1.6-2.6 627) Surgical Instrument Maker ID - [id number] 02:45:29 Test Item Value Reference Range Interpretation Comments PHOSPHORUS (BEAKER) (test code = 2.7 mg/dL 2.3-4.7 604) Surgical Instrument Maker ID - MARCOCOMPREHENSIVE METABOLIC [id number] 02:45:28 Test Item Value Reference Range Interpretation [...] not appl icable for dialysis patien ts Surgical Instrument Maker ID - MARCOLACTIC ACID, [id number] 02:40:27 Test Item Value Reference Range Interpretation Comments LACTATE BLOOD ARTERIAL (2) 0.7 mmol/L 0.5-2.0 (BEAKER) (test code = 2874) Surgical Instrument Maker ID - [id number] 02:39:21 Test Item Value Reference Range Interpretation [...] is 2.5-3.5 for patients with mechanical heart valves.[id number] 02:39:00 Test Item Value Reference Range Interpretation Comments FIBRINOGEN LEVEL (BEAKER) (test 567 mg/dl 225-434 H code = 658) CBC W/PLT COUNT & AUTO [id number] 02:28:04 Test Item Value Reference Range Interpretation [...] PERCENT (BEAKER) (test code = 2801) POCT-GLUCOSE [id number] 02:24:35 Test Item Value Reference Range Interpretation Comments POC-GLUCOSE METER 101 mg/dL 70-110 : TESTED A T [facility] 6720 (BEAKER) (test code = [facility], 153) 26780: Surgical Instrument Maker/Techni naif ID = [id number] for TUNDE DEAN POCT-GLUCOSE [id number] 00:35:31 Test Item Value Reference Range Interpretation Comments POC-GLUCOSE METER 101 mg/dL 70-110 : TESTED A T [facility] 6720 (BEAKER) (test code = [facility], 153) 63795: Surgical Instrument Maker/Techni naif ID = [id number] for PAT FOY POCT-GLUCOSE [id number] 16:25:00 Test Item Value Reference Range Interpretation Comments POC-GLUCOSE METER 92 mg/dL 70-110 : TESTED A T [facility] 6720 (BEAKER) (test code = [facility], 153) 82572: Surgical Instrument Maker/Techni naif ID = [id number] for KEN MATTHEWS POCT-GLUCOSE [id number] 15:13:32 Test Item Value Reference Range Interpretation Comments POC-GLUCOSE METER 102 mg/dL 70-110 : TESTED A T [facility] 6720 (BEAKER) (test code = [facility], 153) 03150: Surgical Instrument Maker/Techni naif ID = [id number] for KEN CHUA POCT-GLUCOSE [id number] 12:00:19 Test Item Value Reference Range Interpretation Comments POC-GLUCOSE METER 114 mg/dL 70-110 H : TESTED A T [facility] 6720 (BEAKER) (test code = PRIYA Jimenez [facility], 1538) 82683: Surgical Instrument Maker/Techni naif ID = [id number] for Elisabeth Welsh POCT-GLUCOSE [id number] 10:34:20 Test Item Value Reference Range Interpretation Comments POC-GLUCOSE METER 125 mg/dL 70-110 H : TESTED A T [facility] 6720 (MICHELET) (test code [facility], = 1538) 64406: Surgical Instrument Maker/Techni naif ID = [id number] for Yazmin wilson (contract), Maritza marquez RAD, CHEST, 1 VIEW, NON [id number] 08:39:00Reason for exam:->Post OpShould this be performed at the bedside?->Yes [facility] : 1965 Sex: MFINAL REPORT Exam: RAD, CHEST, 1 VIEW, NON DEPTDate: 10/23/2022 8:38 AM Indication:Post OpComparison: Chest radiograph from yesterday. IMPRESSION: Lines/Tubes:Enteric and endotracheal tubes have been removed. Unchanged right IJ approach [place]-Nader catheter. Median sternotomy wires noted. Mediastinal drains noted. Lungs and Pleura :Interstitial opacities are seen in both lungs. Small bilateral pleural effusions. No pneumothorax. Heart/Mediastinum:Unchanged. Bones/Soft Tissues: No acuteosseous abnormality. Upper abdomen: Unremarkable. Signed: Ana Arrington Verified Date/Time: 10/23/2022 08:39:40 POCT-GLUCOSE [id number] 07:57:35 Test Item Value Reference Range Interpretation Comments POC-GLUCOSE METER 104 mg/dL 70-110 : TESTED A T [facility] 6720 (BEAKER) (test code = [facility], 1538) 19985: Surgical Instrument Maker/Techni naif ID = [id number] for KEN CHUA POCT-GLUCOSE [id number] 06:27:52 Test Item Value Reference Range Interpretation Comments POC-GLUCOSE METER 110 mg/dL 70-110 : TESTED A T [facility] 6720 (BEAKER) (test code = [facility], 1538) 45207: Surgical Instrument Maker/Techni naif ID = [id number] for NG HANNA, DUNG POCT-GLUCOSE [id number] 05:12:14 Test Item Value Reference Range Interpretation Comments POC-GLUCOSE METER 101 mg/dL 70-110 : TESTED A T [facility] 6720 (BEAKER) (test code = [facility], 1538) 70529: Surgical Instrument Maker/Techni naif ID = [id number] for NG HANNA, DUNG [id number] 03:11:44 Test Item Value Reference Range Interpretation Comments MAGNESIUM (BEAKER) (test code = 1.9 mg/dL 1.6-2.6 627) Surgical Instrument Maker ID - [id number] 03:11:44 Test Item Value Reference Range Interpretation Comments PHOSPHORUS (BEAKER) (test code = 4.1 mg/dL 2.3-4.7 604) Surgical Instrument Maker ID - MARCOCOMPREHENSIVE METABOLIC [id number] 03:11:43 Test Item Value Reference Range Interpretation [...] not appl icable for dialysis patien ts Surgical Instrument Maker ID - MARCOLACTIC ACID, [id number] 02:54:35 Test Item Value Reference Range Interpretation Comments LACTATE BLOOD ARTERIAL (2) 2.1 mmol/L 0.5-2.0 H (BEAKER) (test code = 2874) Surgical Instrument Maker ID - [id number] 02:52:46 Test Item Value Reference Range Interpretation Comments FIBRINOGEN LEVEL (BEAKER) (test 346 mg/dl 225-434 code = 658) BLOOD GAS, [id number] 02:51:39 Test Item Value Reference Range Interpretation [...] (BEAKER) (test code = 1819) 28.0 CALCIUM, [id number] 02:50:47 Test Item Value Reference Range Interpretation [...] 0-0 (BEAKER) (test code = 413) POCT-GLUCOSE [id number] 01:19:49 Test Item Value Reference Range Interpretation Comments POC-GLUCOSE METER 122 mg/dL 70-110 H : TESTED A T [facility] 6720 (BEAKER) (test code = PRIYA Jimenez [place], 1538) [address]: Surgical Instrument Maker/Techni naif ID = [id number] for IVONE ZHU POCT-GLUCOSE [id number] 00:12:51 Test Item Value Reference Range Interpretation Comments POC-GLUCOSE METER 121 mg/dL 70-110 H : TESTED A T [facility] 6720 (BEAKER) (test code = PRIYA Jimenez [facility], 1538) 01830: Surgical Instrument Maker/Techni naif ID = [id number] for IVONE ZHU LACTIC ACID, [id number] 22:24:54 Test Item Value Reference Range Interpretation Comments LACTATE BLOOD ARTERIAL (2) 2.0 mmol/L 0.5-2.0 (BEAKER) (test code = 2874) Surgical Instrument Maker ID - MMHGB/HCT (H&H) - STAT [id number] 21:41:48 Test Item Value Reference Range Interpretation Comments HEMOGLOBIN (BEAKER) (test code = 11.2 GM/DL 13.0-16.8 L 410) HEMATOCRIT (BEAKER) (test code = 33.0 % 40.0-50.0 L 411) BLOOD GAS, [id number] 21:41:47 Test Item Value Reference Range Interpretation [...] (test code = 1819) 100.0 SODIUM NA-STAT [id number] 21:41:41 Test Item Value Reference Range Interpretation Comments SODIUM (BEAKER) (test code = 381) 140 meq/L 136-145 POTASSIUM-STAT [id number] 21:41:41 Test Item Value Reference Range Interpretation Comments POTASSIUM (BEAKER) (test code = 4.2 meq/L 3.6-5.5 379) GLUCOSE-STAT [id number] 21:41:40 Test Item Value Reference Range Interpretation Comments GLUCOSE RANDOM (BEAKER) (test code 109 mg/dL 70-110 = 652) POCT-GLUCOSE [id number] 20:33:02 Test Item Value Reference Range Interpretation Comments POC-GLUCOSE METER 99 mg/dL 70-110 : Notified RN/MD: TESTED (BEAKER) (test code = [facility] [address] [facility]) [place], [address]: Surgical Instrument Maker/Techni naif ID = [id number] for DANIELLE KATZ [id number] 19:14:15 Test Item Value Reference Range Interpretation Comments PHOSPHORUS (BEAKER) (test code = 2.4 mg/dL 2.3-4.7 604) Surgical Instrument Maker ID - [id number] 19:14:15 Test Item Value Reference Range Interpretation Comments POTASSIUM (BEAKER) (test code = 4.7 meq/L 3.5-5.1 379) Surgical Instrument Maker ID - [id number] 19:14:14 Test Item Value Reference Range Interpretation Comments MAGNESIUM (BEAKER) (test code = 2.2 mg/dL 1.6-2.6 627) Surgical Instrument Maker ID - MMCALCIUM, [id number] 18:58:27 Test Item Value Reference Range Interpretation Comments CALCIUM IONIZED (BEAKER) (test 1.30 mmol/L 1.12-1.27 H code = 698) PH, BLOOD (BEAKER) (test code = 7.44 1810) HGB/HCT (H&H) - STAT [id number] 18:58:15 Test Item Value Reference Range Interpretation Comments HEMOGLOBIN (BEAKER) (test code = 11.8 GM/DL 13.0-16.8 L 410) HEMATOCRIT (BEAKER) (test code = 35.0 % 40.0-50.0 L 411) BLOOD GAS, [id number] 18:58:14 Test Item Value Reference Range Interpretation [...] (BEAKER) (test code = 1819) 36.0 POTASSIUM-STAT [id number] 18:58:09 Test Item Value Reference Range Interpretation Comments POTASSIUM (BEAKER) (test code = 4.6 meq/L 3.6-5.5 379) SODIUM NA-STAT [id number] 18:58:08 Test Item Value Reference Range Interpretation Comments SODIUM (BEAKER) (test code = 381) 143 meq/L 136-145 GLUCOSE-STAT [id number] 18:58:02 Test Item Value Reference Range Interpretation Comments GLUCOSE RANDOM (BEAKER) (test code 105 mg/dL 70-110 = 652) LACTIC ACID, [id number] 18:35:11 Test Item Value Reference Range Interpretation Comments LACTATE BLOOD ARTERIAL (2) 6.1 mmol/L 0.5-2.0 HH (BEAKER) (test code = 2874) Surgical Instrument Maker ID - MMBLOOD GAS, [id number] 17:47:17 Test Item Value Reference Range Interpretation [...] = 1819) 40.0 HGB/HCT (H&H) - STAT [id number] 17:47:17 Test Item Value Reference Range Interpretation Comments HEMOGLOBIN (BEAKER) (test code = 11.0 GM/DL 13.0-16.8 L 410) HEMATOCRIT (BEAKER) (test code = 32.0 % 40.0-50.0 L 411) SODIUM NA-STAT [id number] 17:47:09 Test Item Value Reference Range Interpretation Comments SODIUM (BEAKER) (test code = 381) 141 meq/L 136-145 POTASSIUM-STAT [id number] 17:47:09 Test Item Value Reference Range Interpretation Comments POTASSIUM (BEAKER) (test code = 4.1 meq/L 3.6-5.5 379) GLUCOSE-STAT [id number] 17:47:08 Test Item Value Reference Range Interpretation Comments GLUCOSE RANDOM (BEAKER) (test code 112 mg/dL 70-110 H = 652) RAD, CHEST, 1 VIEW, NON [id number] 16:54:00Reason for exam:->Post OpShould this be performed at the bedside?->Yes [facility] [place] : 1965 Sex: MFINAL REPORT TECHNIQUE: Frontal view of the chest. INDICATION: Post Op. COMPARISON:10/15/2022. FINDINGS: LINES/TUBES: Endotracheal tube tip projected 3.7 cm above the level of the nhan. Right IJ [place]-Nader catheter with tip projecting over right lower [...] MDReport Verified Date/Time: 10/22/2022 16:54:55 LACTIC ACID, [id number] 16:44:10 Test Item Value Reference Range Interpretation Comments LACTATE BLOOD 8.0 mmol/L 0.5-2.0 HH Specimen sligh tly ARTERIAL (2) (BEAKER) hemoly zed (test code = 2874) Surgical Instrument Maker ID - MMBLOOD GAS, [id number] 16:27:25 Test Item Value Reference Range Interpretation [...] = 1819) 50.0 HGB/HCT (H&H) - STAT [id number] 16:27:25 Test Item Value Reference Range Interpretation Comments HEMOGLOBIN (BEAKER) (test code = 11.7 GM/DL 13.0-16.8 L 410) HEMATOCRIT (BEAKER) (test code = 34.0 % 40.0-50.0 L 411) SODIUM NA-STAT [id number] 16:19:14 Test Item Value Reference Range Interpretation Comments SODIUM (BEAKER) (test code = 381) 140 meq/L 136-145 POTASSIUM-STAT [id number] 16:19:14 Test Item Value Reference Range Interpretation Comments POTASSIUM (BEAKER) (test code = 3.9 meq/L 3.6-5.5 379) GLUCOSE-STAT [id number] 16:19:13 Test Item Value Reference Range Interpretation [...] CONCENTRATION Adequate (CELLAVISION)(BEAKER) (test code = 3438) Surgical Instrument Maker ID - Charissa comments: Slide comments:LACTIC ACID, ARTERIAL 2022-10-22 15:24:06 Test Item Value Reference Range Interpretation Comments LACTATE BLOOD 7.1 mmol/L 0.5-2.0 HH Specimen sligh tly ARTERIAL (2) (BEAKER) hemoly zed (test code = 2874) Surgical Instrument Maker ID - MMCOMPREHENSIVE METABOLIC [id number] 15:20:42 Test Item Value Reference Range Interpretation [...] not appl icable for dialysis patien ts Surgical Instrument Maker ID - [id number] 15:20:41 Test Item Value Reference Range Interpretation Comments MAGNESIUM (BEAKER) 2.4 mg/dL 1.6-2.6 Specimen slightly (test code = 627) hemolyzed Surgical Instrument Maker ID - [id number] 15:20:41 Test Item Value Reference Range Interpretation Comments PHOSPHORUS (BEAKER) 3.7 mg/dL 2.3-4.7 Specimen slightly (test code = 604) hemolyzed Surgical Instrument Maker ID - [id number] 15:20:04 Test Item Value Reference Range Interpretation Comments FIBRINOGEN LEVEL (BEAKER) (test 283 mg/dl 225-434 code = 658) [id number] 15:09:52 Test Item Value Reference Range Interpretation [...] 2.5-3.5 for patients with mechanical heart valves.PROTHROMBIN [id number] 15:09:12 Test Item Value Reference Range Interpretation [...] mechanical heart valves.CBC W/PLT COUNT & AUTO [id number] 15:05:41 Test Item Value Reference Range Interpretation [...] (BEAKER) (test code = 413) OXYGEN SATURATION, [id number] 14:34:19 Test Item Value Reference Range Interpretation Comments O2 SATURATION (MEASURED) (BEAKER) 82.6 % (test code = 1455) BLOOD GAS, [id number] 14:33:21 Test Item Value Reference Range Interpretation [...] = 1819) 60.0 HGB/HCT (H&H) - STAT [id number] 14:33:15 Test Item Value Reference Range Interpretation Comments HEMOGLOBIN (BEAKER) (test code = 12.1 GM/DL 13.0-16.8 L 410) HEMATOCRIT (BEAKER) (test code = 36.0 % 40.0-50.0 L 411) CALCIUM, [id number] 14:33:14 Test Item Value Reference Range Interpretation Comments CALCIUM IONIZED (BEAKER) (test 1.11 mmol/L 1.12-1.27 L code = 698) PH, BLOOD (BEAKER) (test code = 7.32 1810) POTASSIUM-STAT [id number] 14:32:17 Test Item Value Reference Range Interpretation Comments POTASSIUM (BEAKER) (test code = 3.5 meq/L 3.6-5.5 L 379) GLUCOSE-STAT [id number] 14:32:16 Test Item Value Reference Range Interpretation Comments GLUCOSE RANDOM (BEAKER) (test code 132 mg/dL 70-110 H = 652) SODIUM NA-STAT [id number] 14:32:16 Test Item Value Reference Range Interpretation Comments SODIUM (BEAKER) (test code = 381) 142 meq/L 136-145 LACTIC ACID, [id number] 14:10:28 Test Item Value Reference Range Interpretation Comments LACTATE BLOOD 6.7 mmol/L 0.5-2.0 HH Specimen sligh tly ARTERIAL (2) (BEAKER) hemoly zed (test code = 2874) Surgical Instrument Maker ID - [id number] 13:54:55 Test Item Value Reference Range Interpretation Comments ACTIVATED CLOTTING TIME 119 sec : 74 -137 seconds, (BEAKER) (test code = Baseli ne: TESTED AT 441) [address], [facility] 30: Surgical Instrument Maker/Techni naif ID = [id number] for WENDY VINSON, RASHIED [id number] 13:54:50 Test Item Value Reference Range Interpretation Comments ACTIVATED CLOTTING TIME 408 sec : 74 -137 seconds, (BEAKER) (test code = Baseli ne: TESTED AT 441) [address], [facility] 30: Surgical Instrument Maker/Techni naif ID = [id number] for Mariaa an, [place] [id number] 13:54:49 Test Item Value Reference Range Interpretation Comments ACTIVATED CLOTTING TIME 528 sec : 74 -137 seconds, (BEAKER) (test code = Baseli ne: TESTED AT 441) [address], [facility] 30: Surgical Instrument Maker/Techni naif ID = [id number] for Mariaa an, [place] [id number] 13:54:48 Test Item Value Reference Range Interpretation Comments ACTIVATED CLOTTING TIME 473 sec : 74 -137 seconds, (BEAKER) (test code = Baseli ne: TESTED AT 441) [address], [facility] 30: Surgical Instrument Maker/Techni naif ID = [id number] for Mariaa an, [place] [id number] 13:54:48 Test Item Value Reference Range Interpretation Comments ACTIVATED CLOTTING TIME 407 sec : 74 -137 seconds, (BEAKER) (test code = Baseli ne: TESTED AT 441) [address], [facility] 30: Surgical Instrument Maker/Techni naif ID = [id number] for Mariaa an, [place] [id number] 13:54:18 Test Item Value Reference Range Interpretation Comments ACTIVATED CLOTTING TIME 594 sec : 74 -137 seconds, (BEAKER) (test code = Baseli ne: TESTED AT 441) [address], [facility] 30: Surgical Instrument Maker/Techni naif ID = [id number] for Mariaa an, [place] CALCIUM, [id number] 13:29:08 Test Item Value Reference Range Interpretation Comments CALCIUM IONIZED (BEAKER) (test 0.96 mmol/L 1.12-1.27 L code = 698) PH, BLOOD (BEAKER) (test code = 7.32 0810) POTASSIUM-STAT [id number] 13:28:16 Test Item Value Reference Range Interpretation Comments POTASSIUM (BEAKER) (test code = 3.3 meq/L 3.6-5.5 L 379) HGB/HCT (H&H) - STAT [id number] 13:28:16 Test Item Value Reference Range Interpretation Comments HEMOGLOBIN (BEAKER) (test code = 11.6 GM/DL 13.0-16.8 L 410) HEMATOCRIT (BEAKER) (test code = 34.0 % 40.0-50.0 L 411) BLOOD GAS, [id number] 13:28:15 Test Item Value Reference Range Interpretation [...] (test code = 1819) 90.0 SODIUM NA-STAT [id number] 13:27:56 Test Item Value Reference Range Interpretation Comments SODIUM (BEAKER) (test code = 381) 141 meq/L 136-145 GLUCOSE-STAT [id number] 13:27:51 Test Item Value Reference Range Interpretation Comments GLUCOSE RANDOM (BEAKER) (test code 143 mg/dL 70-110 H = 652) POTASSIUM-STAT [id number] 12:21:24 Test Item Value Reference Range Interpretation Comments POTASSIUM (BEAKER) (test code = 3.1 meq/L 3.6-5.5 L 379) HGB/HCT (H&H) - STAT [id number] 12:21:24 Test Item Value Reference Range Interpretation Comments HEMOGLOBIN (BEAKER) (test code = 11.0 GM/DL 13.0-16.8 L 410) HEMATOCRIT (BEAKER) (test code = 32.0 % 40.0-50.0 L 411) BLOOD GAS, [id number] 12:21:23 Test Item Value Reference Range Interpretation [...] (BEAKER) (test code = 1819) 36.0 CALCIUM, [id number] 12:20:51 Test Item Value Reference Range Interpretation Comments CALCIUM IONIZED (BEAKER) (test 1.42 mmol/L 1.12-1.27 H code = 698) PH, BLOOD (BEAKER) (test code = 7.32 1810) SODIUM NA-STAT [id number] 12:19:08 Test Item Value Reference Range Interpretation Comments SODIUM (BEAKER) (test code = 381) 138 meq/L 136-145 GLUCOSE-STAT [id number] 12:19:07 Test Item Value Reference Range Interpretation Comments GLUCOSE RANDOM (BEAKER) (test code 139 mg/dL 70-110 H = 652) BLOOD GAS, [id number] 12:03:20 Test Item Value Reference Range Interpretation [...] = 1819) 70.0 HGB/HCT (H&H) - STAT [id number] 12:03:20 Test Item Value Reference Range Interpretation Comments HEMOGLOBIN (BEAKER) (test code = 11.5 GM/DL 13.0-16.8 L 410) HEMATOCRIT (BEAKER) (test code = 34.0 % 40.0-50.0 L 411) SODIUM NA-STAT [id number] 12:02:34 Test Item Value Reference Range Interpretation Comments SODIUM (BEAKER) (test code = 381) 135 meq/L 136-145 L GLUCOSE-STAT [id number] 12:02:34 Test Item Value Reference Range Interpretation Comments GLUCOSE RANDOM (BEAKER) (test code 153 mg/dL 70-110 H = 652) POTASSIUM-STAT [id number] 12:02:34 Test Item Value Reference Range Interpretation Comments POTASSIUM (BEAKER) (test code = 4.4 meq/L 3.6-5.5 379) [id number] 11:35:58 Test Item Value Reference Range Interpretation Comments FIBRINOGEN LEVEL (BEAKER) (test 150 mg/dl 225-434 L code = 658) LACTIC ACID, [id number] 11:35:02 Test Item Value Reference Range Interpretation Comments LACTATE BLOOD 1.6 mmol/L 0.5-2.0 Specimen sligh tly ARTERIAL (2) (BEAKER) hemoly zed (test code = 2874) Surgical Instrument Maker ID - BVPROTHROMBIN TIME/[id number] 11:31:14 Test Item Value Reference Range Interpretation Comments PROTIME (BEAKER) (test code = 43.0 seconds 11.9-14.2 H 759) INR (BEAKER) (test code = 370) 4.94 <=5.90 RECOMMENDED COUMADIN/WARFARIN INR THERAPY RANGESSTANDARD DOSE: 2.0 - 3.0 Includes: PROPHYLAXIS for venous thrombosis, systemic embolization; TREATMENT for venous thrombosis and/or pulmonary embolus.HIGH RISK: Target INR is 2.5-3.5 for patients with mechanical heart valves.HGB/HCT (H&H) - STAT [id number] 11:26:58 Test Item Value Reference Range Interpretation Comments HEMOGLOBIN (BEAKER) (test code = 12.0 GM/DL 13.0-16.8 L 410) HEMATOCRIT (BEAKER) (test code = 35.0 % 40.0-50.0 L 411) BLOOD GAS, [id number] 11:26:57 Test Item Value Reference Range Interpretation [...] (BEAKER) (test code = 1819) 70.0 POTASSIUM-STAT [id number] 11:25:33 Test Item Value Reference Range Interpretation Comments POTASSIUM (BEAKER) (test code = 4.5 meq/L 3.6-5.5 379) GLUCOSE-STAT [id number] 11:25:27 Test Item Value Reference Range Interpretation Comments GLUCOSE RANDOM (BEAKER) (test code 193 mg/dL 70-110 H = 652) SODIUM NA-STAT [id number] 11:25:27 Test Item Value Reference Range Interpretation Comments SODIUM (BEAKER) (test code = 381) 138 meq/L 136-145 PLATELET [id number] 11:21:06 Test Item Value Reference Range Interpretation Comments PLATELET COUNT (BEAKER) (test 147 K/CU MM 150-450 L code = 756) Surgical Instrument Maker ID - [id number]/HCT (H&H) - STAT [id number] 10:37:32 Test Item Value Reference Range Interpretation Comments HEMOGLOBIN (BEAKER) (test code = 11.7 GM/DL 13.0-16.8 L 410) HEMATOCRIT (BEAKER) (test code = 34.0 % 40.0-50.0 L 411) BLOOD GAS, [id number] 10:37:31 Test Item Value Reference Range Interpretation [...] (BEAKER) (test code = 1819) 65.0 POTASSIUM-STAT [id number] 10:37:20 Test Item Value Reference Range Interpretation Comments POTASSIUM (BEAKER) (test code = 4.4 meq/L 3.6-5.5 379) GLUCOSE-STAT [id number] 10:37:19 Test Item Value Reference Range Interpretation Comments GLUCOSE RANDOM (BEAKER) (test code 211 mg/dL 70-110 H = 652) SODIUM NA-STAT [id number] 10:37:19 Test Item Value Reference Range Interpretation Comments SODIUM (BEAKER) (test code = 381) 138 meq/L 136-145 HGB/HCT (H&H) - STAT [id number] 10:13:35 Test Item Value Reference Range Interpretation Comments HEMOGLOBIN (BEAKER) (test code = 11.4 GM/DL 13.0-16.8 L 410) HEMATOCRIT (BEAKER) (test code = 34.0 % 40.0-50.0 L 411) BLOOD GAS, [id number] 10:13:34 Test Item Value Reference Range Interpretation [...] (test code = 1819) 80.0 SODIUM NA-STAT [id number] 10:13:34 Test Item Value Reference Range Interpretation Comments SODIUM (BEAKER) (test code = 381) 136 meq/L 136-145 GLUCOSE-STAT [id number] 10:12:16 Test Item Value Reference Range Interpretation Comments GLUCOSE RANDOM (BEAKER) (test code 188 mg/dL 70-110 H = 652) POTASSIUM-STAT [id number] 10:12:16 Test Item Value Reference Range Interpretation Comments POTASSIUM (BEAKER) (test code = 4.5 meq/L 3.6-5.5 379) CALCIUM, [id number] 08:24:38 Test Item Value Reference Range Interpretation Comments CALCIUM IONIZED (BEAKER) (test 1.10 mmol/L 1.12-1.27 L code = 698) PH, BLOOD (BEAKER) (test code = 7.42 1810) BLOOD GAS, [id number] 08:24:38 Test Item Value Reference Range Interpretation [...] (BEAKER) (test code = 1819) 100.0 POTASSIUM-STAT [id number] 08:24:38 Test Item Value Reference Range Interpretation Comments POTASSIUM (BEAKER) (test code = 2.9 meq/L 3.6-5.5 L 379) SODIUM NA-STAT [id number] 08:24:11 Test Item Value Reference Range Interpretation Comments SODIUM (BEAKER) (test code = 381) 144 meq/L 136-145 HGB/HCT (H&H) - STAT [id number] 08:24:11 Test Item Value Reference Range Interpretation Comments HEMOGLOBIN (BEAKER) (test code = 15.3 GM/DL 13.0-16.8 410) HEMATOCRIT (BEAKER) (test code = 45.0 % 40.0-50.0 411) GLUCOSE-STAT [id number] 08:24:10 Test Item Value Reference Range Interpretation Comments GLUCOSE RANDOM (BEAKER) (test code = 89 mg/dL 70-110 652) POCT-GLUCOSE [id number] 07:13:35 Test Item Value Reference Range Interpretation Comments POC-GLUCOSE METER 92 mg/dL 70-110 : TESTED A T [facility] ([facility]) (test code = PRIYA [place]D [place], 1538) [address]: Surgical Instrument Maker/Techni naif ID = [id number] for MELVIN TANG HEPATITIS B [id number] 12:32:45 Test Item Value Reference Range Interpretation Comments HEPATITIS B CORE TOTAL ANTIBODY Nonreactive Nonreactive (BEAKER) (test code = 497) HEPATITIS B SURFACE ANTIBODY < mIU/mL <8.0 (BEAKER) (test code = 647) HEPATITIS B SURFACE ANTIGEN (2) Nonreactive Nonreactive (BEAKER) (test code = 2585) Surgical Instrument Maker ID - ADMINHEPATITIS C [id number] 12:31:04 Test Item Value Reference Range Interpretation Comments HEPATITIS C ANTIBODY (BEAKER) Nonreactive Nonreactive (test code = 367) Surgical Instrument Maker ID - ADMINHIV-1 ANTIGEN WITH HIV-1/2 [id number] 12:31:04 Test Item Value Reference Range Interpretation Comments HIV-1 ANTIGEN WITH HIV 1\\T\\2 Nonreactive Nonreactive ANTIBODY (2) (BEAKER) (test code = 2586) Surgical Instrument Maker ID - ADMINHEMOGLOBIN [id number] 12:30:48 Test Item Value Reference Range Interpretation Comments HEMOGLOBIN A1C 5.2 % See_Comment [Automated m essage] ELECTROPHORESIS (BEAKER) The system which (test code = 3811) generated this result transmitted ref erence range: <=5.6%. The reference range was not used to int erpret this result as normal/abnormal . "The A1c is measured using a NGSP-certified method. HbA1c value equal to or greater than 6.5% as thediagnosis cutoff for diabetes. An HbA1c value of 5.7- 6.4% indicates increased risk for diabetes (prediabetes)."Surgical Instrument Maker ID - ADMRAD, CHEST, 2 [id number] 12:16:00Reason for Exam:->[facility] : 1965 Sex: MFINAL REPORT INDICATION: preop COMPARISON: None TECHNIQUE: Frontal and lateral views of the chest. FINDINGS: Lines, tubes, and devices: None.Lungs and pleura: Clear lungs. No effusion.Heart and mediastinum: Normal heart size. Unremarkable mediastinal contours.Osseous structures: No acute abnormality. Mild spondylosis and facet arthropathy are present within the spine. Other: None. IMP RESSION: No acute intrathoracic abnormality. Signed: Smith Corona MDReport Verified Date/Time: 10/15/2022 12:16:37 Reading Location: [address] Reading Room ALT (SGPT)2022-10-15 11:35:12 Test Item Value Reference Range Interpretation Comments ALT (SGPT) (MICHELET) (test code = 347) 11 U/L 6-55 Surgical Instrument Maker ID - mmAST (SGOT)2022-10-15 11:35:12 Test Item Value Reference Range Interpretation Comments AST (SGOT) (BEAKER) (test code = 353) 11 U/L 5-34 Surgical Instrument Maker ID - mmPROTEIN, [id number] 11:35:12 Test Item Value Reference Range Interpretation Comments TOTAL PROTEIN (BEAKER) (test code = 7.7 gm/dL 6.0-8.3 770) Surgical Instrument Maker ID - [id number] 11:35:12 Test Item Value Reference Range Interpretation Comments ALBUMIN (BEAKER) (test code = 1145) 4.6 g/dL 3.5-5.0 Surgical Instrument Maker ID - mmBILIRUBIN, ADULT [id number] 11:35:12 Test Item Value Reference Range Interpretation Comments BILIRUBIN TOTAL (BEAKER) (test code 0.6 mg/dL 0.2-1.2 = 377) Surgical Instrument Maker ID - mmBILIRUBIN, [id number] 11:35:12 Test Item Value Reference Range Interpretation Comments BILIRUBIN DIRECT (BEAKER) (test 0.2 mg/dL 0.1-0.5 code = 706) Surgical Instrument Maker ID - mmLACTATE DEHYDROGENASE (LDH)2022-10-15 11:35:12 Test Item Value Reference Range Interpretation Comments LACTATE DEHYDROGENASE (BEAKER) (test 141 U/L 125-220 code = 635) Surgical Instrument Maker ID - mmBASIC METABOLIC [id number] 11:35:11 Test Item Value Reference Range Interpretation [...] not appl icable for dialysis patien ts Surgical Instrument Maker ID - mmALKALINE [id number] 11:35:06 Test Item Value Reference Range Interpretation Comments ALKALINE PHOSPHATASE (BEAKER) (test 89 U/L 40-150 code = 346) Surgical Instrument Maker ID - [id number] 11:33:46 Test Item Value Reference Range Interpretation Comments PARTIAL THROMBOPLASTIN TIME 30.5 seconds 22.5-36.0 (BEAKER) (test code = 760) PROTHROMBIN TIME/[id number] 11:33:04 Test Item Value Reference Range Interpretation Comments PROTIME (BEAKER) (test code = 14.2 seconds 11.9-14.2 759) INR (BEAKER) (test code = 370) 1.17 <=5.90 RECOMMENDED COUMADIN/WARFARIN INR THERAPY RANGESSTANDARD DOSE: 2.0 - 3.0 Includes: PROPHYLAXIS for venous thrombosis, systemic embolization; TREATMENT for venous thrombosis and/or pulmonary embolus.HIGH RISK: Target INR is 2.5-3.5 for patients with mechanical heart valves.Urinalysis w/[id number] 11:24:13 Test Item Value Reference Range Interpretation Comments Color, UA (test code Colorless = 5778-6) Clarity, UA (test Clear code = 5767-9) Specific [place], UA 1.004 1.001-1.035 (test code = 5811-5) pH, UA (test code = 7.5 5.0-8.0 5803-2) Protein, UA (test Negative Negative code = 42491-7) Glucose, UA (test Negative Negative code = 365) Ketones, UA (test Negative Negative code = 2514-8) Bilirubin, UA (test Negative Negative code = 26024-1) Blood, UA (test code Small Negative A = 99176-9) Nitrite, UA (test Negative Negative code = 5802-4) Leukocytes, UA (test Negative Negative code = 5799-2) Urobilinogen, UA 0.2 0.2-1.0 (test code = 11710-5) RBC, UA (test code = 5 See_Comment [Autom ated 77764-1) message] The system which generated this result [...] UA See_Comment [Automate d (test code = 19629-5) messag e] The system which generated this result transmitted reference range : /HPF. The reference range was not used to interpret this result as normal/abnormal . Specimen Source (test Urine, Voided code = 2795) ARANZA (test code = ARANZA) Surgical Instrument Maker ID - [auto]Surgical Instrument Maker ID - tech Lab Interpretation Abnormal (test code = 59509-7) [facility] [id number] 11:24:13 Test Item Value Reference Range Interpretation [...] 516) SOURCE(BEAKER) (test code = Urine, Voided 6009) Surgical Instrument Maker ID - [auto]Surgical Instrument Maker ID - techCBC W/PLT COUNT & AUTO [...] (BEAKER) (test code = 2801) Cv stress [id number] 10:39:42 Test Item Value Reference Range Interpretation Comments Resting HR (test code 82 = 9157276994) Resting BP (test code 186&85 = 8932623692) Peak MET Achieved 1.0 (test code = 0692598906) Protocol Name (test Lexiscan code = 9826718479) Time in Exercise 00:01:00 Phase (test code = 0865171590) Max Systolic BP (test 186 code = 2089613752) Max Diastolic BP 85 (test code = 2545098212) Max Heart Rate (test 107 code = 5845504967) Max Predicted Heart 163 Rate (test code = 1633208090) Target HR Formula (220 - Age)*100% (test code = 4394518531) Test Indication (test chest pain code = 6102863560) Arrhy During Ex (test code = 9396137094) ECG Interp Before EX (test code = 0668506263) ECG Interp During Ex (test code = 6790659329) Ex Summary Comment (test code = 7975290017) Overall HR Response to Exercise (test code = 5668311278) Overall BP Response To Exercise (test code = 7541360808) Reason for Protocol Complete Termination (test code = 3712338579) Stress Test -Waveform interpreted in Impression (test code report associated with = 8339204680) image study. No interpretation is provided as part of this Stress ECG report.-Electronically Signed By Dustin Egan MD ([id number]), news video editor Estrella Romero ([id number]) on 08/18/2022 5:39:39 [facility] [id number] 10:39:42 Test Item Value Reference Range Interpretation Comments Resting HR (test code 82 = 4988140055) Resting BP (test code 186&85 = 1816084299) Peak MET Achieved 1.0 (test code = 0350350775) Protocol Name (test Lexiscan code = 9939967661) Time in Exercise 00:01:00 Phase (test code = 4803502372) Max Systolic BP (test 186 code = 6652552063) Max Diastolic BP 85 (test code = 8157910753) Max Heart Rate (test 107 code = 0270218277) Max Predicted Heart 163 Rate (test code = 1664284918) Target HR Formula (220 - Age)*100% (test code = 9524088958) Test Indication (test chest pain code = 5303436990) Arrhy During Ex (test code = 9593393614) ECG Interp Before EX (test code = 3819694875) ECG Interp During Ex (test code = 0947620036) Ex Summary Comment (test code = 8096348451) Overall HR Response to Exercise (test code = 2748234615) Overall BP Response To Exercise (test code = 1071019470) Reason for Protocol Complete Termination (test code = 9886935274) Stress Test -Waveform interpreted in Impression (test code report associated with = 7072932611) image study. No interpretation is provided as part of this Stress ECG report.-Electronically Signed By Dustin Egan MD ([id number]), news video editor Estrella Romero (111) on 08/18/2022 5:39:39 AM [facility] 12 [id number] 21:56:15 Test Item Value Reference Range Interpretation Comments Ventricular rate (test 75 code = 253) Atrial rate (test code 75 = 255) DC interval (test code 140 = 266) QRSD [...] 09-JAN-2016 18:09,-Vent. rate has decreased BY 42 PYK-Kxd-ehksbept change in ST segment in Inferior leads-T wave inversion now evident in Inferior leads- [address]2023-03-14 21:56:15 Test Item Value Reference Range Interpretation Comments Ventricular rate (test 75 code = 253) Atrial rate (test code 75 = 255) DC interval (test code 140 = 266) QRSD [...] 09-JAN-2016 18:09,-Vent. rate has decreased BY 42 JWF-Drr-azwnusdx change in ST segment in Inferior leads-T wave inversion now evident in Inferior leads- [address]2023-03-14 21:56:15 Test Item Value Reference Range Interpretation Comments Ventricular rate (test 75 code = 253) Atrial rate (test code 75 = 255) DC interval (test code 140 = 266) QRSD [...] 09-JAN-2016 18:09,-Vent. rate has decreased BY 42 WDD-Ezg-pdezexew change in ST segment in Inferior leads-T wave inversion now evident in Inferior leads- [facility] ED Preliminary Interpretation - Not an [id number] 02:45:35 Test Item Value Reference Range Interpretation Comments ARANZA (test code = ARANZA) Adali Arrington MD 08/20/2022 1:46 [facility] ED Preliminary Interpretation - Not an OrderPerformed by: Adali Arrington MDAuthorized by: Adali Arrington MD ECG reviewed by ED Physician in the absence of a sheepskin pickler: yes Interpretation: Interpretation: abnormal Rate: ECG rate: 75 ECG rate assessment: normal Rhythm: Rhythm: sinus rhythm ST segments: ST segments: Non-specificT waves: T waves: inverted Inverted: I and aVLComments: No STEMI Lab Interpretation Abnormal (test code = 70485-9) [facility] Preliminary Interpretation - Not an [id number] 02:45:35 Test Item Value Reference Range Interpretation Comments ARANZA (test code = ARANZA) Adali Arrington MD 08/20/2022 1:46 [facility] [place] Preliminary Interpretation - Not an OrderPerformed by: Adali Arrington MDAuthorized by: Adali Arrington MD ECG reviewed by ED Physician in the absence of a sheepskin pickler: yes Interpretation: Interpretation: abnormal Rate: ECG rate: 75 ECG rate assessment: normal Rhythm: Rhythm: sinus rhythm ST segments: ST segments: Non-specificT waves: T waves: inverted Inverted: I and aVLComments: No STEMI Lab Interpretation Abnormal (test code = 91091-6) [facility] Preliminary Interpretation - Not an [id number] 02:45:35 Test Item Value Reference Range Interpretation Comments ARANZA (test code = ARANZA) Adali Arrington MD 08/20/2022 1:46 [facility] Preliminary Interpretation - Not an OrderPerformed by: Adali Arrington MDAuthorized by: Adali Arrington MD ECG reviewed by ED Physician in the absence of a sheepskin pickler: yes Interpretation: Interpretation: abnormal Rate: ECG rate: 75 ECG rate assessment: normal Rhythm: Rhythm: sinus rhythm ST segments: ST segments: Non-specificT waves: T waves: inverted Inverted: I and aVLComments: No STEMI Lab Interpretation Abnormal (test code = 59363-8) [facility]-CoV[facility] (COVID-19) RNA [Presence] in Respiratory specimen by CALEB with probe [id number] 22:21:34 Test Item Value Reference Range Interpretation Comments SARS-CoV-2 (COVID-19) RNA Not detected Not-Detected [Presence] in Respiratory specimen by CALEB with probe detection (test code = 89777-2) [facility]2017-08-10 09:58:00 Test Item Value Reference Range Interpretation Comments Glucose Lvl (test code = Glucose Lvl) 101 70-99 [facility]2017-08-10 09:58:00 Test Item Value Reference Range Interpretation Comments BUN (test code = BUN) 15 7-22 [facility]2017-08-10 09:58:00 Test Item Value Reference Range Interpretation Comments Potassium Lvl (test code = Potassium 3.9 3.5-5.1 Lvl) [facility]2017-08-10 09:58:00 Test Item Value Reference Range Interpretation Comments Chloride Lvl (test code = Chloride Lvl) 105 95-109 [facility]2017-08-10 09:58:00 Test Item Value Reference Range Interpretation Comments CO2 (test code = CO2) 22 24-32 [facility]2017-08-10 09:58:00 Test Item Value Reference Range Interpretation Comments Creatinine Lvl (test code = Creatinine 1.29 0.50-1.40 Lvl) [facility]2017-08-10 09:58:00 Test Item Value Reference Range Interpretation Comments eGFR (test code = eGFR) 63 [facility]2017-08-10 09:58:00 Test Item Value Reference Range Interpretation Comments AGAP (test code = AGAP) 14.9 10.0-20.0 [facility]2017-08-10 09:58:00 Test Item Value Reference Range Interpretation Comments Sodium Lvl (test code = Sodium Lvl) 138 135-145 [facility]2017-08-10 09:58:00 Test Item Value Reference Range Interpretation Comments Calcium Lvl (test code = Calcium Lvl) 8.4 8.5-10.5 [facility]2017-08-09 19:57:00 Test Item Value Reference Range Interpretation Comments eGFR (test code = eGFR) 54 [facility]2017-08-09 19:57:00 Test Item Value Reference Range Interpretation Comments Sodium Lvl (test code = Sodium Lvl) 138 135-145 [place] 688547-08-09 19:57:00 Test Item Value Reference Range Interpretation Comments Creatinine Lvl (test code = Creatinine 1.48 0.50-1.40 Lvl) [facility]2017-08-09 19:57:00 Test Item Value Reference Range Interpretation Comments Glucose Lvl (test code = Glucose Lvl) 91 70-99 [facility]2017-08-09 19:57:00 Test Item Value Reference Range Interpretation Comments BUN (test code = BUN) 17 12-25 [facility]2017-08-09 19:57:00 Test Item Value Reference Range Interpretation Comments Potassium Lvl (test code = Potassium 4.1 3.5-5.1 Lvl) [facility]2017-08-09 19:57:00 Test Item Value Reference Range Interpretation Comments CO2 (test code = CO2) 27 24-32 [facility]2017-08-09 19:57:00 Test Item Value Reference Range Interpretation Comments Chloride Lvl (test code = Chloride Lvl) 102 95-109 [facility]2017-08-09 19:57:00 Test Item Value Reference Range Interpretation Comments Calcium Lvl (test code = Calcium Lvl) 8.5 8.5-10.5 [facility]2017-08-09 19:57:00 Test Item Value Reference Range Interpretation Comments AGAP (test code = AGAP) 13.1 10.0-20.0 [facility]2017-08-09 09:43:00 Test Item Value Reference Range Interpretation Comments eGFR (test code = eGFR) 53 [facility]2017-08-09 09:43:00 Test Item Value Reference Range Interpretation Comments Glucose Lvl (test code = Glucose Lvl) 116 70-99 [facility]2017-08-09 09:43:00 Test Item Value Reference Range Interpretation Comments BUN (test code = BUN) 18 12-25 [facility]2017-08-09 09:43:00 Test Item Value Reference Range Interpretation Comments Creatinine Lvl (test code = Creatinine 1.50 0.50-1.40 Lvl) [facility]2017-08-09 09:43:00 Test Item Value Reference Range Interpretation Comments Potassium Lvl (test code = Potassium 3.9 3.5-5.1 Lvl) [facility]2017-08-09 09:43:00 Test Item Value Reference Range Interpretation Comments Sodium Lvl (test code = Sodium Lvl) 137 135-145 [facility]2017-08-09 09:43:00 Test Item Value Reference Range Interpretation Comments Calcium Lvl (test code = Calcium Lvl) 7.9 8.5-10.5 [facility]2017-08-09 09:43:00 Test Item Value Reference Range Interpretation Comments CO2 (test code = CO2) 24 24-32 [facility]2017-08-09 09:43:00 Test Item Value Reference Range Interpretation Comments Chloride Lvl (test code = Chloride Lvl) 104 95-109 [facility]2017-08-09 09:43:00 Test Item Value Reference Range Interpretation Comments AGAP (test code = AGAP) 12.9 10.0-20.0 [facility] HospitalYxtnsgbEPJGZHSTTD6318-34-78 09:43:00 Test Item Value Reference Range Interpretation Comments Basophils # (test code = Basophils #) 0.1 <=0.2 [facility] HospitalZeevdjfQOTMQKOBBK6567-34-25 09:43:00 Test Item Value Reference Range Interpretation Comments Monocytes # (test code = Monocytes #) 1.2 <=0.8 [facility] HospitalKuddoipYCSZYJAULD2959-79-11 09:43:00 Test Item Value Reference Range Interpretation Comments Eosinophils # (test code = Eosinophils 0.2 <=0.5 #) [facility] HospitalMzfkvntDDSENIEORO6585-76-59 09:43:00 Test Item Value Reference Range Interpretation Comments Lymphocytes # (test code = Lymphocytes 2.5 1.0-5.5 #) [facility] HospitalZgomelxODFJCYTDJH1247-78-21 09:43:00 Test Item Value Reference Range Interpretation Comments Monocytes (test code = Monocytes) 8.7 2.0-12.0 [facility] HospitalHidwmngLGBVZHLXQE3390-90-01 09:43:00 Test Item Value Reference Range Interpretation Comments Eosinophils (test code = Eosinophils) 1.6 <=4.0 [facility] HospitalBwavlftMIWNDMNPKJ2128-64-95 09:43:00 Test Item Value Reference Range Interpretation Comments Basophils (test code = Basophils) 0.4 <=1.0 [facility] HospitalNjvtzfaLVZHQFXBJT1575-19-44 09:43:00 Test Item Value Reference Range Interpretation Comments Segs-Bands # (test code = Segs-Bands #) 10.1 1.5-8.1 [facility] [id number] 09:43:00 Test Item Value Reference Range Interpretation Comments Lymphocytes (test code = Lymphocytes) 17.7 20.0-40.0 [facility] H[id number] 09:43:00 Test Item Value Reference Range Interpretation Comments Segs (test code = Segs) 71.6 45.0-75.0 [facility] H[id number] 09:43:00 Test Item Value Reference Range Interpretation Comments MPV (test code = MPV) 8.4 7.4-10.4 [facility] H[id number] 09:43:00 Test Item Value Reference Range Interpretation Comments Platelet (test code = Platelet) 211 133-450 [facility] H[id number] 09:43:00 Test Item Value Reference Range Interpretation Comments WBC (test code = WBC) 14.1 3.7-10.4 [facility] H[id number] 09:43:00 Test Item Value Reference Range Interpretation Comments RBC (test code = RBC) 4.43 4.70-6.10 [facility] H[id number] 09:43:00 Test Item Value Reference Range Interpretation Comments Hgb (test code = Hgb) 13.3 14.0-18.0 [facility] H[id number] 09:43:00 Test Item Value Reference Range Interpretation Comments MCV (test code = MCV) 90.8 80.0-94.0 [facility] H[id number] 09:43:00 Test Item Value Reference Range Interpretation Comments MCHC (test code = MCHC) 33.1 32.0-36.0 [facility] H[id number] 09:43:00 Test Item Value Reference Range Interpretation Comments MCH (test code = MCH) 30.0 pg 27.0-31.0 [facility] H[id number] 09:43:00 Test Item Value Reference Range Interpretation Comments RDW (test code = RDW) 14.6 11.5-14.5 [facility] H[id number] 09:43:00 Test Item Value Reference Range Interpretation Comments Hct (test code = Hct) 40.2 42.0-54.0 [facility]
--- NOTE | 2023-02-25 10:16 | EDPHYS ---
Physician Documentation [facility] Name: Kyree Freeman Age: 57 yrs Sex: Male : 1965 Arrival Date: 02/25/2023 Time: 09:55 Bed 6 Private MD: Paul Rochah ED Physician Ashutosh Antonio HPI: 02/25 10:11 This 57 yrs old Male presents to ER via Unassigned with complaints of Port Clogged. rn 10:11 Patient reports having trouble administering his medication through his PICC line this rn morning. Has had problem with one of the ports but has been able to use the red port up until this morning. No other complaints. No arm swelling. No fever. No chest pain. No shortness of breath.. Onset: The symptoms/episode began/occurred this morning. Severity of symptoms:. The patient has not recently seen a physician. Historical: - Allergies: 10:15 No Known Allergies; hb - Home Meds: 10:15 amlodipine 10 mg tablet [Active]; Aspirin Oral [Active]; Aspirin Oral [Active]; hb furosemide 20 mg Oral tablet once [Active]; lisinopril 20 mg Oral tablet once [Active]; metoprolol tartrate 50 mg Oral tablet once [Active]; potassium chloride 10 mEq Oral Tablet once [Active]; - PMHx: 10:15 Cerebrovascular accident; Leaky aorta; hb - PSHx: 10:15 Knee-Right; open heart surgery; hb - Immunization history:: Adult Immunizations unknown. - Family history:: not pertinent. - Social history:: Smoking status: unknown. ROS: 10:11 Constitutional: Negative for fever, chills, and weight loss, Cardiovascular: Negative rn for chest pain, palpitations, and edema, Respiratory: Negative for shortness of breath, cough, wheezing, and pleuritic chest pain, Abdomen/GI: Negative for abdominal pain, nausea, vomiting, diarrhea, and constipation, MS/Extremity: Negative for injury and deformity, Neuro: Negative for headache, weakness, numbness, tingling, and seizure, Exam: 10:11 Constitutional: This is a well developed, well nourished patient who is awake, alert, rn and in no acute distress. Cardiovascular: Regular rate and rhythm. No pulse deficits. Respiratory: No increased work of breathing, no retractions or nasal flaring. MS/ Extremity: Pulses equal, no cyanosis. Neurovascular intact. Full, normal range of motion. Equal circumference. Vital Signs: 09:59 BP 136 / 86; Pulse 89; Resp 16; Temp 98.1; Pulse Ox 100% on R/A; Pain 0/10; hb 09:59 Pain Scale: Adult hb MDM: 10:00 Patient medically screened. rn 10:11 Differential Diagnosis PICC line malfunction. Data reviewed: vital signs, nurses notes, rn and as a result, I will discharge patient. Counseling: I had a detailed discussion with the patient and/or guardian regarding the historical points, exam findings, and any diagnostic results supporting the discharge/admit diagnosis, the need for outpatient follow up, to return to the emergency department if symptoms worsen or persist or if there are any questions or concerns that arise at home. Special discussion: I discussed with the patient/guardian in detail that at this point there is no indication for admission to the hospital. It is understood, however, that if the symptoms persist or worsen the patient needs to return immediately for re-evaluation. ED course: PRAFUL Mondragon, able to flush both ports, increased resistance on purple port, but both flush and give back blood.. Administered Medications: No medications were administered Disposition Summary: 02/25/23 10:15 Discharge Ordered Notes: Location: Home rn Problem: new rn Symptoms: have improved rn Condition: Stable rn Diagnosis - Other mechanical complication of infusion catheter, initial encounter - Clogged, rn resolved Followup: rn - With: Private Physician - When: As needed - Reason: Recheck today's complaints, Re-evaluation by your physician Discharge Instructions: - Discharge Summary Sheet rn - PICC Home Care Guide rn Forms: - Medication Reconciliation Form rn - Thank You Letter rn - Antibiotic internet salesperson - Prescription Opioid Use rn - Patient Portal Instructions rn - Leadership Thank You Letter rn Signatures: Ashutosh Antonio MD MD rn Baxter, Heather, RN RN hb Leal, Jahala, RN RN jl7
--- NOTE | 2023-02-25 10:16 | ER ---
Nurse's Notes [facility] Name: Kyree Freeman Age: 57 yrs Sex: Male : 1965 Arrival Date: 02/25/2023 Time: 09:55 Bed 6 Private MD: Jean Carlos Rocha Diagnosis: Other mechanical complication of infusion catheter, initial encounter-Clogged, resolved Presentation: 02/25 09:59 Chief complaint: RUE PICC clogged. Coronavirus screen: At this time, the client does hb not indicate any symptoms associated with coronavirus-19. Ebola Screen: No symptoms or risks identified at this time. Initial Sepsis Screen: Does the patient meet any 2 criteria? No. Patient's initial sepsis screen is negative. Does the patient have a suspected source of infection? No. Patient's initial sepsis screen is negative. Risk Assessment: Do you want to hurt yourself or someone else? Patient reports no desire to harm self or others. Onset of symptoms was February 25, 2023. 09:59 Method Of Arrival: Ambulatory hb 09:59 Acuity: AJ 4 hb Historical: - Allergies: 10:15 No Known Allergies; hb - Home Meds: 10:15 amlodipine 10 mg tablet [Active]; Aspirin Oral [Active]; Aspirin Oral [Active]; hb furosemide 20 mg Oral tablet once [Active]; lisinopril 20 mg Oral tablet once [Active]; metoprolol tartrate 50 mg Oral tablet once [Active]; potassium chloride 10 mEq Oral Tablet once [Active]; - PMHx: 10:15 Cerebrovascular accident; Leaky aorta; hb - PSHx: 10:15 Knee-Right; open heart surgery; hb - Immunization history:: Adult Immunizations unknown. - Family history:: not pertinent. - Social history:: Smoking status: unknown. Screenin:18 [facility] ED Fall Risk Assessment (Adult) History of falling in the last 3 months, jl7 including since admission Score/Fall Risk Level 0 - 2 = Low Risk Oriented to surroundings, Maintained a safe environment. Abuse screen: Denies threats or abuse. Denies injuries from another. Nutritional screening: No deficits noted. Tuberculosis screening: No symptoms or risk factors identified. Assessment: 10:18 Pain: Denies pain. jl7 10:20 Reassessment: RUE PICC assessed. Red port flushes easily with good blood return, blue hb port flushes with difficulty and has sluggish blood return. Pt and family educated on proper port access and flushing technique. Pt and family able to demonstrate teachings. Both end caps replaced. Dressing is clean, dry, intact, and remains in place. Dr. Antonio present at bedside for PICC access and teaching. Vital Signs: 09:59 BP 136 / 86; Pulse 89; Resp 16; Temp 98.1; Pulse Ox 100% on R/A; Pain 0/10; hb 09:59 Pain Scale: Adult hb ED Course: 09:56 Patient arrived in ED. rg4 09:56 Jean Carlos Rocha DO is Private Physician. rg4 10:00 Ashutosh Antonio MD is Attending Physician. rn 10:15 Triage completed. hb 10:17 Arm band placed on. hb 10:18 Alberto Theodore RN is Primary Nurse. jl7 10:18 Patient has correct armband on for positive identification. jl7 10:18 No provider procedures requiring assistance completed. Patient did not have IV access jl7 during this emergency room visit. Administered Medications: No medications were administered Medication: 10:18 VIS not applicable for this client. jl7 Outcome: 10:15 Discharge ordered by . rn 10:19 Discharged to home ambulatory, jl7 10:19 Condition: stable 10:19 Discharge instructions given to patient, Instructed on discharge instructions, follow up and referral plans. Demonstrated understanding of instructions, follow-up care, 10:19 Patient left the ED. jl7 Signatures: Ashutosh Antonio MD MD rn Baxter, Heather, RN RN hb Garcia, Rubi rg4 Alberto Theodore RN RN jl7 Corrections: (The following items were deleted from the chart) 10:20 10:17 Reassessment: Red port flushed easily with good blood return, blue port flushed hb with difficulty and had sluggish blood return. Both end caps replaced. Demonstrated proper port access and flushing technique for pt and family, pt and family demonstrated teachings. Dressing clean, dry, and remains in place. hb
[2023-02-25 10:28] VITALS: BP 136/86; TEMP 98.1; O2SAT 100
== END 2023-02-25 10:19 | disposition home or self-care (01) ==
LOC: ER 09:55
DX: T82.594A Other mechanical complication of infusion catheter, initial encounter (principal); Z79.82 Long term (current) use of aspirin
CPT/HCPCS: 99282

== ENCOUNTER 2023-03-24 16:02 | Emergency (ER) | payer OTHER ==
--- OUTSIDE RECORDS SUMMARY | 2023-03-24 16:41 | XMS REPORT | Continuity of Care Document ---
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 as: l 14:00: MaxEPA, [place] 00 [place] 3 fish oil ) [facility] No [facility] tab, [facility] Silver 01-12 Route: PO, l Men's 14:00: Dosing [place] 00 Weight 109.091, kg, Daily, Start date: 01/12/17 9:00:00 CDT, Duration: 30 day, Stop date: 02/10/17 9:00:00 CDT Amlodipine No Notes: [facility] 01-12 (Same as: l 14:00: Norvasc) [place] 00 Aspirin No Notes: (Do Jah jina 01-12 Not Crush) l 14:00: Do not [place] 00 crush or chew. multivitami No Notes: Jah jina n 01-12 (Same l 14:00: as:Thera) [place] WASTE: F/P - Black; E - Municipal Trash Bin Take with food. Fish Oil No 1,200 mg, Jah jina 01-12 Route: PO, l 14:00: Drug form: [place] 00 CAP, Daily, Dosing Weight 109.091, kg, Start date: 01/12/17 9:00:00 CDT, Duration: 30 day, Stop date: 02/10/17 9:00:00 CDT MaxEPA No Notes: [facility] 01-12 (Same as: l 14:00: MaxEPA, [place] 3 fish oil ) [facility] No [facility] tab, [facility] Silver 01-12 Route: PO, l Men's 14:00: Dosing [place] 00 Weight 109.091, kg, Daily, Start date: 01/12/17 9:00:00 CDT, Duration: 30 day, Stop date: 02/10/17 9:00:00 CDT Amlodipine No Notes: [facility] 01-12 (Same as: l 14:00: Norvasc) [place] 00 Aspirin No Notes: (Do Jah jina 01-12 Not Crush) l 14:00: Do not [place] 00 crush or chew. multivitami No Notes: Jah jina n 01-12 (Same l 14:00: as:Thera) [place] WASTE: F/P - Black; E - Municipal Trash Bin Take with food. Fish Oil No 1,200 mg, Jah jina 01-12 Route: PO, l 14:00: Drug form: [place] 00 CAP, Daily, Dosing Weight 109.091, kg, Start date: 01/12/17 9:00:00 CDT, Duration: 30 day, Stop date: 02/10/17 9:00:00 CDT MaxEPA 0 No Notes: [facility] 01-12 (Same as: l 14:00: MaxEPA, [place] 00 [place] 3 fish oil ) [facility] No [facility] tab, [facility] Silver 01-12 Route: PO, l Men's 14:00: Dosing [place] 00 Weight 109.091, kg, Daily, Start date: 01/12/17 9:00:00 CDT, Duration: 30 day, Stop date: 02/10/17 9:00:00 CDT Amlodipine No Notes: [facility] 01-12 (Same as: l 14:00: Norvasc) [place] Aspirin No Notes: (Do Jah jina 01-12 Not Crush) l 14:00: Do not [place] 00 crush or chew. multivitami No Notes: Jah jina n 01-12 (Same l 14:00: as:Thera) [place] 00 WASTE: F/P - Black; E - Municipal Trash Bin Take with food. Fish Oil No 1,200 mg, Jah jina 01-12 Route: PO, l 14:00: Drug form: [place] 00 CAP, Daily, Dosing Weight 109.091, kg, Start date: 01/12/17 9:00:00 CDT, Duration: 30 day, Stop date: 02/10/17 9:00:00 CDT MaxEPA No Notes: [facility] 01-12 (Same as: l 14:00: MaxEPA, [place] 00 [place] 3 fish oil ) [facility] No [facility] tab, [facility] Silver 01-12 Route: [...] (Same as: l 14:00: MaxEPA, [place] 00 [place] 3 fish oil ) [facility] [...] 01-12 Not Crush) l 14:00: Do not [place] 00 crush or chew. multivitami No Notes: Jah jina n 01-12 (Same l 14:00: as:Thera) [place] 00 WASTE: F/P - Black; E - Municipal Trash Bin Take with food. Fish Oil No 1,200 mg, Jah jina 01-12 Route: PO, l 14:00: Drug form: [place] 00 CAP, Daily, Dosing Weight 109.091, kg, Start date: 01/12/17 9:00:00 CDT, Duration: 30 day, Stop date: 02/10/17 9:00:00 CDT MaxEPA 0 No Notes: [facility] 01-12 (Same as: l 14:00: MaxEPA, [place] 00 [place] 3 fish oil ) [facility] No [facility] tab, [facility] Silver 01-12 Route: PO, l Men's 14:00: Dosing [place] 00 Weight 109.091, kg, Daily, Start date: 01/12/17 9:00:00 CDT, Duration: 30 day, Stop date: 02/10/17 9:00:00 CDT Amlodipine 2017-0 No Notes: [facility] 01-12 (Same as: l 14:00: Norvasc) [place] 00 Aspirin No Notes: (Do Jah jina 01-12 Not Crush) l 14:00: Do not [place] 00 crush or chew. multivitami No Notes: Jah jina n 01-12 (Same l 14:00: as:Thera) [place] 00 WASTE: F/P - Black; E - Municipal Trash Bin Take with food. Fish Oil No 1,200 mg, Jah jina 01-12 Route: PO, l 14:00: Drug form: [place] 00 CAP, Daily, Dosing Weight 109.091, kg, Start date: 01/12/17 9:00:00 CDT, Duration: 30 day, Stop date: 02/10/17 9:00:00 CDT MaxEPA No Notes: [facility] 01-12 (Same as: l 14:00: MaxEPA, [place] 00 [place] 3 fish oil ) [facility] No [facility] tab, [facility] Silver [...] jina n 01-12 (Same l 14:00: as:Thera) [place] 00 WASTE: F/P - Black; E - Municipal Trash Bin Take with food. Fish Oil No 1,200 mg, Jah jina 01-12 Route: PO, l 14:00: Drug form: [place] 00 CAP, Daily, Dosing Weight 109.091, kg, Start date: 01/12/17 9:00:00 CDT, Duration: 30 day, Stop date: 02/10/17 9:00:00 CDT MaxEPA 0 No Notes: [facility] 01-12 (Same as: l 14:00: MaxEPA, [place] 00 [place] 3 fish oil ) [facility] No [facility] tab, [facility] Silver 01-12 Route: PO, l Men's 14:00: Dosing [place] 00 Weight 109.091, kg, Daily, Start date: 01/12/17 9:00:00 CDT, Duration: 30 day, Stop date: 02/10/17 9:00:00 CDT Amlodipine 0 No Notes: [facility] 01-12 (Same as: l 14:00: Norvasc) [place] 00 Aspirin No Notes: (Do Jah jina 01-12 Not Crush) l 14:00: Do not [place] 00 crush or chew. multivitami No Notes: Jah jina n 01-12 (Same l 14:00: as:Thera) [place] WASTE: F/P - Black; E - Municipal Trash Bin Take with food. Fish Oil No 1,200 mg, Jah jina 01-12 Route: PO, l 14:00: Drug form: [place] 00 CAP, Daily, Dosing Weight 109.091, kg, Start date: 01/12/17 9:00:00 CDT, Duration: 30 day, Stop date: 02/10/17 9:00:00 CDT MaxEPA 0 No Notes: [facility] 01-12 (Same as: l 14:00: MaxEPA, [place] 00 [place] 3 fish oil ) [facility] No [facility] tab, [facility] Silver 01-12 Route: PO, l Men's 14:00: Dosing [place] 00 Weight 109.091, kg, Daily, Start date: 01/12/17 9:00:00 CDT, Duration: 30 day, Stop date: 02/10/17 9:00:00 CDT Amlodipine No Notes: [facility] 01-12 (Same as: l 14:00: Norvasc) [place] 00 Aspirin 0 No Notes: (Do Jah jina 01-12 Not Crush) l 14:00: Do not [place] 00 crush or chew. multivitami No Notes: Jah jina n 01-12 (Same l 14:00: as:Thera) [place] WASTE: F/P - Black; E - Municipal Trash Bin Take with food. Fish Oil No 1,200 mg, Jah jina 01-12 Route: PO, l 14:00: Drug form: [place] 00 CAP, Daily, Dosing Weight 109.091, kg, Start date: 01/12/17 9:00:00 CDT, Duration: 30 day, Stop date: 02/10/17 9:00:00 CDT MaxEPA No Notes: [facility] 01-12 (Same as: l 14:00: MaxEPA, [place] 3 fish oil ) [facility] [...] 01-12 Not Crush) l 14:00: Do not [place] 00 crush or chew. multivitami No Notes: Jah jina n 01-12 (Same l 14:00: as:Thera) [place] 00 WASTE: F/P - Black; E - Municipal Trash Bin Take with food. Fish Oil No 1,200 mg, Jah jina 01-12 Route: PO, l 14:00: Drug form: [place] 00 CAP, Daily, Dosing Weight 109.091, kg, Start date: 01/12/17 9:00:00 CDT, Duration: 30 day, Stop date: 02/10/17 9:00:00 CDT MaxEPA No Notes: [facility] 01-12 (Same as: l 14:00: MaxEPA, [place] 00 [place] 3 fish oil ) [facility] [...] (Same as: l 14:00: MaxEPA, [place] 00 [place] 3 fish oil ) [facility] No 1 tab, [facility] Silver 01-12 Route: PO, l Men's 14:00: Dosing [place] 00 Weight 109.091, kg, Daily, Start date: 01/12/17 9:00:00 CDT, Duration: 30 day, Stop date: 02/10/17 9:00:00 CDT Amlodipine No Notes: [facility] 01-12 (Same as: l 14:00: Norvasc) [place] 00 Aspirin No Notes: (Do Jah jina [...] (Same as: l 14:00: MaxEPA, [place] 00 [place] 3 fish oil ) [facility] [...] jina n 01-12 (Same l 14:00: as:Thera) [place] 00 WASTE: F/P - Black; E - Municipal Trash Bin Take with food. Fish Oil No 1,200 mg, Jah jina 01-12 Route: PO, l 14:00: Drug form: [place] 00 CAP, Daily, Dosing Weight 109.091, kg, Start date: 01/12/17 9:00:00 CDT, Duration: 30 day, Stop date: 02/10/17 9:00:00 CDT MaxEPA No Notes: [facility] 01-12 (Same as: l 14:00: MaxEPA, [place] 00 [place] 3 fish oil ) [facility] No 1 tab, [facility] Silver 01-12 Route: PO, l Men's 14:00: Dosing [place] 00 Weight 109.091, kg, Daily, Start date: 01/12/17 9:00:00 CDT, Duration: 30 day, Stop date: 02/10/17 9:00:00 CDT Amlodipine No Notes: [facility] ia 01-12 (Same as: l 14:00: Norvasc) [place] 00 Aspirin No Notes: (Do Jah jina 01-12 Not Crush) l 14:00: Do not [place] 00 crush or chew. multivitami No Notes: Jah jina n 01-12 (Same l 14:00: as:Thera) [place] 00 WASTE: F/P - Black; E - Municipal Trash Bin Take with food. Fish Oil No 1,200 mg, Jah jina 01-12 Route: PO, l 14:00: Drug form: [place] 00 CAP, Daily, Dosing Weight 109.091, kg, Start date: 01/12/17 9:00:00 CDT, Duration: 30 day, Stop date: 02/10/17 9:00:00 CDT MaxEPA No Notes: [facility] 01-12 (Same as: l 14:00: MaxEPA, [place] 3 fish oil ) [facility] No 1 tab, [facility] Silver 01-12 Route: PO, l Men's 14:00: Dosing Weight 109.091, kg, Daily, Start date: 01/12/17 9:00:00 CDT, Duration: 30 day, Stop date: 02/10/17 9:00:00 CDT Amlodipine No Notes: [facility] 01-12 (Same as: l 14:00: Norvasc) [place] 00 Aspirin No Notes: (Do Jah jina 01-12 Not Crush) l 14:00: Do not [place] 00 crush or chew. multivitami No Notes: Jah jina n 01-12 (Same l 14:00: as:Thera) [place] 00 WASTE: F/P - Black; E - Municipal Trash Bin Take with food. Fish Oil No 1,200 mg, Jah jina 01-12 Route: PO, l 14:00: Drug form: [place] 00 CAP, Daily, Dosing Weight 109.091, kg, Start date: 01/12/17 9:00:00 CDT, Duration: 30 day, Stop date: 02/10/17 9:00:00 CDT MaxEPA No Notes: [facility] 01-12 (Same as: l 14:00: MaxEPA, [place] 00 [place] 3 fish oil ) [facility] No 1 tab, [facility] Silver 01-12 Route: PO, l Men's 14:00: Dosing [place] 00 Weight 109.091, kg, Daily, Start date: 01/12/17 9:00:00 CDT, Duration: 30 day, Stop date: 02/10/17 9:00:00 CDT Amlodipine No Notes: [facility] ia 01-12 (Same as: l 14:00: Norvasc) [place] 00 Aspirin No Notes: (Do Jah jina 01-12 Not Crush) l 14:00: Do not [place] 00 crush or chew. multivitami No Notes: Jah jina n 01-12 (Same l 14:00: as:Thera) [place] WASTE: F/P - Black; E - Municipal Trash Bin Take with food. Fish Oil No 1,200 mg, Jah jina 01-12 Route: PO, l 14:00: Drug form: [place] 00 CAP, Daily, Dosing Weight 109.091, kg, Start date: 01/12/17 9:00:00 CDT, Duration: 30 day, Stop date: 02/10/17 9:00:00 CDT MaxEPA No Notes: [facility] 01-12 (Same as: l 14:00: MaxEPA, [place] 00 [place] 3 fish oil ) [facility] No 1 tab, [facility] Silver 01-12 Route: PO, l Men's 14:00: Dosing [place] 00 Weight 109.091, kg, Daily, Start date: 01/12/17 9:00:00 CDT, Duration: 30 day, Stop date: 02/10/17 9:00:00 CDT Amlodipine 0 No Notes: [facility] ia 01-12 (Same as: l 14:00: Norvasc) [place] 00 Aspirin No Notes: (Do Jah jina 01-12 Not Crush) l 14:00: Do not [place] 00 crush or chew. multivitami No Notes: Jah jina n 01-12 (Same l 14:00: as:Thera) [place] 00 WASTE: F/P - Black; E - Municipal Trash Bin Take with food. Fish Oil No 1,200 mg, Jah jina 01-12 Route: PO, l 14:00: Drug form: [place] 00 CAP, Daily, Dosing Weight 109.091, kg, Start date: 01/12/17 9:00:00 CDT, Duration: 30 day, Stop date: 02/10/17 9:00:00 CDT MaxEPA No Notes: [facility] 01-12 (Same as: l 14:00: MaxEPA, [place] 00 [place] 3 fish oil ) [facility] No 1 tab, [facility] Silver 01-12 Route: PO, l Men's 14:00: Dosing [place] 00 Weight 109.091, kg, Daily, Start date: 01/12/17 9:00:00 CDT, Duration: 30 day, Stop date: 02/10/17 9:00:00 CDT Amlodipine No Notes: [facility] ia 01-12 (Same as: l 14:00: Norvasc) [place] 00 Aspirin No Notes: (Do Jah jina 01-12 Not Crush) l 14:00: Do not [place] 00 crush or chew. multivitami No Notes: Jah jina n 01-12 (Same l 14:00: as:Thera) [place] WASTE: F/P - Black; E - Municipal Trash Bin Take with food. Fish Oil No 1,200 mg, Jah jina 01-12 Route: PO, l 14:00: Drug form: [place] 00 CAP, Daily, Dosing Weight 109.091, kg, Start date: 01/12/17 9:00:00 CDT, Duration: 30 day, Stop date: 02/10/17 9:00:00 CDT MaxEPA 0 No Notes: [facility] 01-12 (Same as: l 14:00: MaxEPA, [place] 00 [place] 3 fish oil ) [facility] No 1 tab, [facility] Silver 01-12 Route: PO, l Men's 14:00: Dosing [place] Weight 109.091, kg, Daily, Start date: 01/12/17 9:00:00 CDT, Duration: 30 day, Stop date: 02/10/17 9:00:00 CDT Amlodipine 0 No Notes: Memor ia 01-12 (Same as: l 14:00: Norvasc) [place] Aspirin No Notes: (Do Jah jina 01-12 [...] (Same as: l 14:00: MaxEPA, [place] 00 [place] 3 fish oil ) [facility] No 1 tab, [facility] Silver 01-12 Route: PO, l Men's 14:00: Dosing [place] 00 Weight 109.091, kg, Daily, Start date: [...] Trash Bin Take with food. Fish Oil 2017-0 No 1,200 mg, Jah jina 01-12 Route: PO, l 14:00: Drug form: [place] 00 CAP, Daily, Dosing Weight 109.091, kg, Start date: 01/12/17 9:00:00 CDT, Duration: 30 day, Stop date: 02/10/17 9:00:00 CDT MaxEPA No Notes: [facility] 01-12 (Same as: l 14:00: MaxEPA, [place] 00 [place] 3 fish oil ) [facility] No 1 tab, [facility] Silver 01-12 Route: PO, l Men's 14:00: Dosing Weight 109.091, kg, Daily, Start date: 01/12/17 9:00:00 CDT, Duration: 30 day, Stop date: 02/10/17 9:00:00 CDT Amlodipine No Notes: [facility] ia 01-12 (Same as: l 14:00: Norvasc) [place] 00 Aspirin No Notes: (Do Jah jina 01-12 Not Crush) l 14:00: Do not [place] 00 crush or chew. multivitami No Notes: Jah jina n 01-12 (Same l 14:00: as:Thera) [place] 00 WASTE: F/P - Black; E - Municipal Trash Bin Take with food. Fish Oil No 1,200 mg, Jah jina 01-12 Route: PO, l 14:00: Drug form: [place] 00 CAP, Daily, Dosing Weight 109.091, kg, Start date: 01/12/17 9:00:00 CDT, Duration: 30 day, Stop date: 02/10/17 9:00:00 CDT MaxEPA No Notes: [facility] 01-12 (Same as: l 14:00: MaxEPA, [place] 00 [place] 3 fish oil ) [facility] No 1 tab, [facility] Silver 01-12 Route: PO, l Men's 14:00: Dosing [place] 00 Weight 109.091, kg, Daily, Start date: 01/12/17 9:00:00 CDT, Duration: 30 day, Stop date: 02/10/17 9:00:00 CDT Amlodipine No Notes: [facility] 01-12 (Same as: l 14:00: Norvasc) [place] Aspirin No Notes: (Do Jah jina 01-12 Not Crush) l 14:00: Do not [place] 00 crush or chew. multivitami No Notes: Jah jina n 01-12 (Same l 14:00: as:Thera) [place] 00 WASTE: F/P - Black; E - Municipal Trash Bin Take with food. Fish Oil No 1,200 mg, Jah jina 01-12 Route: PO, l 14:00: Drug form: [place] 00 CAP, Daily, Dosing Weight 109.091, kg, Start date: 01/12/17 9:00:00 CDT, Duration: 30 day, Stop date: 02/10/17 9:00:00 CDT MaxEPA No Notes: [facility] 01-12 (Same as: l 14:00: MaxEPA, [place] 3 fish oil ) [facility] No 1 tab, [facility] Silver 01-12 Route: PO, l Men's 14:00: Dosing Weight 109.091, kg, Daily, Start date: 01/12/17 9:00:00 CDT, Duration: 30 day, Stop date: 02/10/17 9:00:00 CDT Amlodipine No Notes: [facility]or ia 01-12 (Same as: l 14:00: Norvasc) [place] Aspirin No Notes: (Do Jah jina 01-12 Not Crush) l 14:00: Do not [place] 00 crush or chew. multivitami No Notes: Jah jina n 01-12 (Same l 14:00: as:Thera) [place] 00 WASTE: F/P - Black; E - Municipal Trash Bin Take with food. Fish Oil No 1,200 mg, Jah jina 01-12 Route: PO, l 14:00: Drug form: [place] 00 CAP, Daily, Dosing Weight 109.091, kg, Start date: 01/12/17 9:00:00 CDT, Duration: 30 day, Stop date: 02/10/17 9:00:00 CDT MaxEPA No Notes: [facility] 01-12 (Same as: l 14:00: MaxEPA, [place] 3 fish oil ) [facility] No 1 tab, [facility] Silver 01-12 Route: PO, l Men's 14:00: Dosing [place] 00 Weight 109.091, kg, Daily, Start date: 01/12/17 9:00:00 CDT, Duration: 30 day, Stop date: 02/10/17 9:00:00 CDT Amlodipine No Notes: [facility] ia 01-12 (Same as: l 14:00: Norvasc) [place] Aspirin No Notes: (Do Jah jina 01-12 Not Crush) l 14:00: Do not [place] 00 crush or chew. multivitami No Notes: Jah jina n 01-12 (Same l 14:00: as:Thera) [place] 00 WASTE: F/P - Black; E - Municipal Trash Bin Take with food. Fish Oil No 1,200 mg, Jah jina 01-12 Route: PO, l 14:00: Drug form: [place] 00 CAP, Daily, Dosing Weight 109.091, kg, Start date: 01/12/17 9:00:00 CDT, Duration: 30 day, Stop date: 02/10/17 9:00:00 CDT MaxEPA No Notes: [facility] 01-12 (Same as: l 14:00: MaxEPA, [place] 3 fish oil ) [facility] No 1 tab, [facility] Silver 01-12 Route: PO, l Men's 14:00: Dosing [place] 00 Weight 109.091, kg, Daily, Start date: 01/12/17 9:00:00 CDT, Duration: 30 day, Stop date: 02/10/17 9:00:00 CDT Amlodipine No Notes: [facility] ia 01-12 (Same as: l 14:00: Norvasc) [place] Aspirin No Notes: (Do Jah jina 01-12 Not Crush) l 14:00: Do not [place] 00 crush or chew. multivitami No Notes: Jah jina n 01-12 (Same l 14:00: as:Thera) [place] 00 WASTE: F/P - Black; E - Municipal Trash Bin Take with food. Fish Oil No 1,200 mg, Jah jina 01-12 Route: PO, l 14:00: Drug form: [place] 00 CAP, Daily, Dosing Weight 109.091, kg, Start date: 01/12/17 9:00:00 CDT, Duration: 30 day, Stop date: 02/10/17 9:00:00 CDT MaxEPA No Notes: [facility] 01-12 (Same as: l 14:00: MaxEPA, [place] 3 fish oil ) [facility] No 1 tab, [facility] Silver 01-12 Route: PO, l Men's 14:00: Dosing [place] 00 Weight 109.091, kg, Daily, Start date: 01/12/17 9:00:00 CDT, Duration: 30 day, Stop date: 02/10/17 9:00:00 CDT Amlodipine No Notes: [facility] ia 01-12 (Same as: l 14:00: Norvasc) [place] 00 Aspirin No Notes: (Do Jah jina 01-12 Not Crush) l 14:00: Do not [place] 00 crush or chew. multivitami No Notes: [...] (Same as: l 14:00: MaxEPA, [place] 00 [place] 3 fish oil ) [facility] 2017-0 No 1 tab, [facility] Silver 8-09 Route: PO, l Men's 14:00: Dosing [place] 00 Weight 109.091, kg, Daily, Start date: 01/12/17 9:00:00 CDT, Duration: 30 day, Stop date: 02/10/17 9:00:00 CDT Amlodipine No Notes: [facility]or ia 01-12 (Same as: l 14:00: Norvasc) [place] Aspirin No Notes: (Do Jah jina 01-12 Not Crush) l 14:00: Do not [place] 00 crush or chew. multivitami No Notes: Jah jina n 01-12 (Same l 14:00: as:Thera) [place] WASTE: F/P - Black; E - Municipal Trash Bin Take with food. Fish Oil No 1,200 mg, Jah jina 01-12 Route: PO, l 14:00: Drug form: [place] 00 CAP, Daily, Dosing Weight 109.091, kg, Start date: 01/12/17 9:00:00 CDT, Duration: 30 day, Stop date: 02/10/17 9:00:00 CDT MaxEPA No Notes: [facility] 01-12 (Same as: l 14:00: MaxEPA, [place] 00 [place] 3 fish oil ) [facility] No 1 tab, [facility] Silver 01-12 Route: PO, l Men's 14:00: Dosing [place] 00 Weight 109.091, kg, Daily, Start date: 01/12/17 9:00:00 CDT, Duration: 30 day, Stop date: 02/10/17 9:00:00 CDT Amlodipine No Notes: [facility] ia 01-12 (Same as: l 14:00: Norvasc) [place] Aspirin No Notes: (Do Jah jina 01-12 Not Crush) l 14:00: Do not [place] 00 crush or chew. multivitami No Notes: Jah jina n 01-12 (Same l 14:00: as:Thera) [place] 00 WASTE: F/P - Black; E - Municipal Trash Bin Take with food. acetaminoph 2017-0 No Notes: Max [facility] en 01-12 acetaminop l 02:00: hen 4000 [place] 00 mg/day (4 gm/day). (Same as: Tylenol Extra Strength) Lopressor 0 No 50 mg, Memori a 01-12 Route: PO, l 02:00: Drug form: [place] 00 ERTAB, Bedtime, Dosing Weight 109.091, kg, [...] en 01-12 acetaminop l 02:00: hen 4000 [place] 00 mg/day (4 gm/day). (Same as: Tylenol Extra Strength) Lopressor 0 No 50 mg, Memori a 01-12 Route: PO, l 02:00: Drug form: [place] 00 ERTAB, Bedtime, Dosing Weight 109.091, kg, Start date: 01/11/17 21:00:00 CDT, Duration: 30 day, Stop date: 02/09/17 21:00:00 CDT acetaminoph 0 No Notes: Max [facility] en 01-12 acetaminop l 02:00: hen 4000 [place] 00 mg/day (4 gm/day). (Same as: Tylenol Extra Strength) Lopressor 0 No 50 mg, Mem[facility] a 01-12 Route: PO, l 02:00: Drug form: [place] 00 ERTAB, Bedtime, Dosing Weight 109.091, kg, Start date: 01/11/17 21:00:00 CDT, Duration: 30 day, Stop date: 02/09/17 21:00:00 CDT acetaminoph 0 No Notes: Max [facility] en 01-12 acetaminop l 02:00: hen 4000 [place] 00 mg/day (4 gm/day). (Same as: Tylenol Extra Strength) Lopressor 0 No 50 mg, Mem[facility] a 01-12 Route: PO, l 02:00: Drug form: [place] 00 ERTAB, Bedtime, Dosing Weight 109.091, kg, [...] en 01-12 acetaminop l 02:00: hen 4000 [place] 00 mg/day (4 gm/day). (Same as: Tylenol [...] en 01-12 acetaminop l 02:00: hen 4000 [place] 00 mg/day (4 gm/day). (Same as: Tylenol Extra Strength) Lopressor 2017-0 No 50 mg, Mem[facility] a 01-12 Route: PO, l 02:00: Drug form: [place] 00 ERTAB, Bedtime, Dosing Weight 109.091, kg, Start date: 01/11/17 21:00:00 CDT, Duration: 30 day, Stop date: 02/09/17 21:00:00 CDT Lopressor 0 No 50 mg, Memori a 01-12 Route: PO, l 02:00: Drug form: [place] 00 ERTAB, Bedtime, Dosing Weight 109.091, kg, [...] en 01-12 acetaminop l 02:00: hen 4000 [place] 00 mg/day (4 gm/day). (Same as: Tylenol Extra Strength) Lopressor 0 No 50 mg, Mem[facility] a 01-12 Route: PO, l 02:00: Drug form: [place] 00 ERTAB, Bedtime, Dosing Weight 109.091, kg, Start date: 01/11/17 21:00:00 CDT, Duration: 30 day, Stop date: 02/09/17 21:00:00 CDT acetaminoph 2016-0 No Notes: Max [facility] en 01-12 acetaminop l 02:00: hen 4000 [place] 00 mg/day (4 gm/day). (Same as: Tylenol Extra Strength) Lopressor 0 No 50 mg, Mem[facility] a 01-12 Route: PO, l 02:00: Drug form: [place] 00 ERTAB, Bedtime, Dosing Weight 109.091, kg, Start date: 01/11/17 21:00:00 CDT, Duration: 30 day, Stop date: 02/09/17 21:00:00 CDT acetaminoph 2016-0 No Notes: Max [facility] en 01-12 acetaminop l 02:00: hen 4000 [place] 00 mg/day (4 gm/day). (Same as: Tylenol Extra Strength) Lopressor No 50 mg, Mem[facility] a 01-12 Route: PO, l 02:00: Drug form: [place] 00 ERTAB, Bedtime, Dosing Weight 109.091, kg, Start date: 01/11/17 21:00:00 CDT, Duration: 30 day, Stop date: 02/09/17 21:00:00 CDT acetaminoph 0 No Notes: Max [facility] en 01-12 acetaminop l 02:00: hen 4000 [place] 00 mg/day (4 gm/day). (Same as: Tylenol Extra Strength) Lopressor No 50 mg, Mem[facility] a 01-12 Route: PO, l 02:00: Drug form: [place] 00 ERTAB, Bedtime, Dosing Weight 109.091, kg, Start date: 01/11/17 21:00:00 CDT, Duration: 30 day, Stop date: 02/09/17 21:00:00 CDT acetaminoph 0 No Notes: Max [facility] en 01-12 acetaminop l 02:00: hen 4000 [place] 00 mg/day (4 gm/day). (Same as: Tylenol Extra Strength) Lopressor No 50 mg, Mem[facility] a 01-12 Route: PO, l 02:00: Drug form: [place] 00 ERTAB, Bedtime, Dosing Weight 109.091, kg, [...] en 01-12 acetaminop l 02:00: hen 4000 [place] 00 mg/day (4 gm/day). (Same as: Tylenol Extra Strength) Lopressor 2016-0 No 50 mg, Memori a 01-12 Route: PO, l 02:00: Drug form: [place] 00 ERTAB, Bedtime, Dosing Weight 109.091, kg, Start date: 01/11/17 21:00:00 CDT, Duration: 30 day, Stop date: 02/09/17 21:00:00 CDT acetaminoph 0 No Notes: Max [facility] en 01-12 acetaminop l 02:00: hen 4000 [place] 00 mg/day (4 gm/day). (Same as: Tylenol Extra Strength) acetaminoph No Notes: Max [facility] en 01-12 acetaminop l 02:00: hen 4000 [place] 00 mg/day (4 gm/day). (Same as: Tylenol Extra Strength) Lopressor 2016-0 No 50 mg, Memori a 01-12 Route: PO, l 02:00: Drug form: [place] 00 ERTAB, Bedtime, Dosing Weight 109.091, kg, Start date: 01/11/17 21:00:00 CDT, Duration: 30 day, Stop date: 02/09/17 21:00:00 CDT Lopressor 2016-0 No 50 mg, Memori a 01-12 Route: PO, l 02:00: Drug form: [place] 00 ERTAB, Bedtime, Dosing Weight 109.091, kg, [...] 01-12 Route: PO, l 02:00: Drug form: [place] 00 ERTAB, Bedtime, Dosing Weight 109.091, kg, [...] en 01-12 acetaminop l 02:00: hen 4000 [place] 00 mg/day (4 gm/day). (Same as: Tylenol [...] 01-12 Route: PO, l 02:00: Drug form: [place] 00 ERTAB, Bedtime, Dosing Weight 109.091, kg, Start date: 01/11/17 21:00:00 CDT, Duration: 30 day, Stop date: 02/09/17 21:00:00 CDT acetaminoph 0 No Notes: Max [facility]oria en - acetaminop l 02:00: hen 4000 [place] 00 mg/day (4 gm/day). (Same as: Tylenol Extra Strength) Lopressor No 50 mg, Memori a 01-12 Route: PO, l 02:00: Drug form: [place] 00 ERTAB, Bedtime, Dosing Weight 109.091, kg, [...] en - acetaminop l 02:00: hen 4000 [place] 00 mg/day (4 gm/day). (Same as: Tylenol Extra Strength) Lopressor No 50 mg, Memori a 01-12 Route: PO, l 02:00: Drug form: [place] 00 ERTAB, Bedtime, Dosing Weight 109.091, kg, Start date: 01/11/17 21:00:00 CDT, Duration: 30 day, Stop date: 02/09/17 21:00:00 CDT acetaminoph 2016-0 No Notes: Max [facility] en - acetaminop l 02:00: hen 4000 [place] 00 mg/day (4 gm/day). (Same as: Tylenol Extra Strength) Lopressor No 50 mg, Memori a 01-12 Route: PO, l 02:00: Drug form: [place] 00 ERTAB, Bedtime, Dosing Weight 109.091, kg, Start date: 01/11/17 21:00:00 CDT, Duration: 30 day, Stop date: 02/09/17 21:00:00 CDT acetaminoph 2016-0 No Notes: Max Memoria en 01-12 acetaminop l 02:00: hen 4000 [place] 00 mg/day (4 gm/day). (Same as: Tylenol Extra Strength) Lopressor No 50 mg, Memori a 01-12 Route: PO, l 02:00: Drug form: [place] 00 ERTAB, Bedtime, Dosing Weight 109.091, kg, Start date: 01/11/17 21:00:00 CDT, Duration: 30 day, Stop date: 02/09/17 21:00:00 CDT acetaminoph 2016-0 No Notes: Max [facility] en 01-12 acetaminop l 02:00: hen 4000 [place] 00 mg/day (4 gm/day). (Same as: Tylenol Extra Strength) Lopressor 0 No 50 mg, Memori a 01-12 Route: PO, l 02:00: Drug form: [place] 00 ERTAB, Bedtime, Dosing Weight 109.091, kg, Start date: 01/11/17 21:00:00 CDT, Duration: 30 day, Stop date: 02/09/17 21:00:00 CDT acetaminoph 2017-0 No Notes: Max [facility] en 01-12 acetaminop l 02:00: hen 4000 [place] 00 mg/day (4 gm/day). (Same as: Tylenol Extra Strength) Lopressor 0 No 50 mg, Memori a 01-12 Route: PO, l 02:00: Drug form: [place] 00 ERTAB, Bedtime, Dosing Weight 109.091, kg, Start date: 01/11/17 21:00:00 CDT, Duration: 30 day, Stop date: 02/09/17 21:00:00 CDT acetaminoph 2017-0 No Notes: Max [facility] en 01-12 acetaminop l 02:00: hen 4000 [place] 00 mg/day (4 gm/day). (Same as: Tylenol Extra Strength) Lopressor 0 No 50 mg, Memori a 01-12 Route: PO, l 02:00: Drug form: [place] 00 ERTAB, Bedtime, Dosing Weight 109.091, kg, Start date: 01/11/17 21:00:00 CDT, Duration: 30 day, Stop date: 02/09/17 21:00:00 CDT acetaminoph 0 No Notes: Max [facility] en 01-12 acetaminop l 02:00: hen 4000 [place] 00 mg/day (4 gm/day). (Same as: Tylenol Extra Strength) Lopressor No 50 mg, Memori a 01-12 Route: PO, l 02:00: Drug form: [place] 00 ERTAB, Bedtime, Dosing Weight 109.091, kg, Start date: 01/11/17 21:00:00 CDT, Duration: 30 day, Stop date: 02/09/17 21:00:00 CDT acetaminoph 0 No Notes: Max [facility] en 01-12 acetaminop l 02:00: hen 4000 [place] 00 mg/day (4 gm/day). (Same as: Tylenol Extra Strength) Lopressor 0 No 50 mg, Memori a 01-12 Route: PO, l 02:00: Drug form: [place] 00 ERTAB, Bedtime, Dosing Weight 109.091, kg, [...] 01-12 Route: PO, l 02:00: Drug form: [place] 00 ERTAB, Bedtime, Dosing Weight 109.091, kg, [...] 01-12 Route: PO, l 02:00: Drug form: [place] 00 ERTAB, Bedtime, Dosing Weight 109.091, kg, Start date: 01/11/17 21:00:00 CDT, Duration: 30 day, Stop date: 02/09/17 21:00:00 CDT acetaminoph No Notes: Max [facility] en - acetaminop l 02:00: hen 4000 [place] 00 mg/day (4 gm/day). (Same as: Tylenol Extra Strength) Lopressor No 50 mg, Memori a 01-12 Route: PO, l 02:00: Drug form: [place] 00 ERTAB, Bedtime, Dosing Weight 109.091, kg, [...] a 8-08 (Same as: l 22:55: Lopressor) [place] Lopressor No Notes: Memori a 8-08 (Same as: l 22:55: Lopressor) [place] Lopressor No Notes: Memori a 8-08 (Same as: l 22:55: Lopressor) [place] Lopressor No Notes: [facility] a 8-08 (Same as: l 22:55: Lopressor) [place] Lopressor No Notes: [facility]ori a 8-08 (Same as: l 22:55: Lopressor) [place] Lopressor No Notes: [facility] a 8-08 (Same as: l 22:55: Lopressor) [place] Lopressor No Notes: [facility] a 8-08 (Same as: l 22:55: Lopressor) [place] 00 Lopressor No Notes: Memori a 8-08 (Same as: l 22:55: Lopressor) [place] Lopressor No Notes: [facility] a 8-08 (Same as: l 22:55: Lopressor) [place] Lopressor No Notes: Memori a 8-08 (Same as: l 22:55: Lopressor) [place] Lopressor No Notes: [facility]ori a 8-08 (Same as: l 22:55: Lopressor) [place] Lopressor No Notes: Memori a 8-08 (Same as: l 22:55: Lopressor) [place] Lopressor No Notes: Memori a 8-08 (Same as: l 22:55: Lopressor) [place] 00 Lopressor No Notes: Memori a 8-08 (Same as: l 22:55: Lopressor) [place] Lopressor No Notes: Memori a 8-08 (Same as: l 22:55: Lopressor) [place] Lopressor No Notes: [facility] a 8-08 (Same as: l 22:55: Lopressor) [place] Lopressor No Notes: [facility] a 8-08 (Same as: l 22:55: Lopressor) [place] Lopressor No Notes: [facility] a 8-08 (Same as: l 22:55: Lopressor) [place] Lopressor No Notes: [facility] a 8-08 (Same as: l 22:55: Lopressor) [place] Lopressor No Notes: [facility] a 8-08 (Same as: l 22:55: Lopressor) [place] Lopressor No Notes: [facility] a 8-08 (Same as: l 22:55: Lopressor) [place] Lopressor No Notes: [facility] a 8-08 (Same as: l 22:55: Lopressor) [place] Lopressor No Notes: [facility] a 8-08 (Same as: l 22:55: Lopressor) [place] Lopressor 0 No Notes: Memori a 8-08 (Same as: l 22:55: Lopressor) [place] 00 Lopressor No Notes: [facility]ori a 8-08 (Same as: l 22:55: Lopressor) [place] Lopressor No Notes: [facility] a 8-08 (Same as: l 22:55: Lopressor) [place] Lopressor No Notes: [facility] a 8-08 (Same as: l 22:55: Lopressor) [place] Lopressor No Notes: [facility] a 8-08 (Same as: l 22:55: Lopressor) [place] Lopressor No Notes: Memori a 8-08 (Same as: l 22:55: Lopressor) [place] Lopressor No Notes: [facility] a 8-08 (Same as: l 22:55: Lopressor) [place] Lopressor No Notes: [facility] a 8-08 (Same as: l 22:55: Lopressor) [place] Lopressor No Notes: [facility] a 8-08 (Same as: l 22:55: Lopressor) [place] Lopressor No Notes: [facility] a 8-08 (Same as: l 22:55: Lopressor) [place] Lopressor No Notes: [facility] a 8-08 (Same as: l 22:55: Lopressor) [place] Lopressor No Notes: [facility] a 8-08 (Same as: l 22:55: Lopressor) [place] Lopressor No Notes: [facility] a 8-08 (Same as: l 22:55: Lopressor) [place] Lopressor No Notes: [facility]ori a 8-08 (Same as: l 22:55: Lopressor) [place] Lopressor No Notes: [facility] a 8-08 (Same as: l 22:55: Lopressor) [place] Lopressor No Notes: [facility] a 8-08 (Same as: l 22:55: Lopressor) [place] Lopressor No Notes: Memori a 8-08 (Same as: l 22:55: Lopressor) [place] 00 Docusate No Notes: Memoria 8-08 (Same as: l 22:00: Colace) [place] 00 (Do Not Crush) Docusate No Notes: [facility] 8-08 (Same as: l 22:00: Colace) [place] 00 (Do Not Crush) Docusate No Notes: [facility] 8-08 (Same as: l 22:00: Colace) [place] 00 (Do Not Crush) Docusate No Notes: [facility] 8-08 (Same as: l 22:00: Colace) [place] 00 (Do Not Crush) Docusate No Notes: [facility] 8-08 (Same as: l 22:00: Colace) [place] 00 (Do Not Crush) Docusate No Notes: [facility] 8-08 (Same as: l 22:00: Colace) [place] 00 (Do Not Crush) Docusate No Notes: [facility] 8-08 (Same as: l 22:00: Colace) [place] 00 (Do Not Crush) Docusate No Notes: [facility] 8-08 (Same as: l 22:00: Colace) [place] 00 (Do Not Crush) Docusate No Notes: [facility] 8-08 (Same as: l 22:00: Colace) [place] 00 (Do Not Crush) Docusate No Notes: [facility] 8-08 (Same as: l 22:00: Colace) [place] 00 (Do Not Crush) Docusate No Notes: [facility] 8-08 (Same as: l 22:00: Colace) [place] 00 (Do Not Crush) Docusate No Notes: [facility] 8-08 (Same as: l 22:00: Colace) [place] 00 (Do Not Crush) Docusate No Notes: [facility] 8-08 (Same as: l 22:00: Colace) [place] 00 (Do Not Crush) Docusate No Notes: [facility] 8-08 (Same as: l 22:00: Colace) [place] 00 (Do Not Crush) Docusate No Notes: [facility] 8-08 (Same as: l 22:00: Colace) [place] 00 (Do Not Crush) Docusate No Notes: [facility] 8-08 (Same as: l 22:00: Colace) [place] 00 (Do Not Crush) Docusate No Notes: [facility] 8-08 (Same as: l 22:00: Colace) [place] 00 (Do Not Crush) Docusate No Notes: [...] Memoria 8-08 (Same as: l 22:00: Colace) [place] 00 (Do Not Crush) Docusate No Notes: [facility] 8-08 (Same as: l 22:00: Colace) [place] 00 (Do Not Crush) Docusate No Notes: [facility] 8-08 (Same as: l 22:00: Colace) [place] 00 (Do Not Crush) Docusate No Notes: [facility] 8-08 (Same as: l 22:00: Colace) [place] 00 (Do Not Crush) Docusate No Notes: [facility] 8-08 (Same as: l 22:00: Colace) [place] 00 (Do Not Crush) Docusate No Notes: [facility] 8-08 (Same as: l 22:00: Colace) [place] 00 (Do Not Crush) Docusate No Notes: [facility] 8-08 (Same as: l 22:00: Colace) [place] 00 (Do Not Crush) Docusate No Notes: [facility] 8-08 (Same as: l 22:00: Colace) [place] 00 (Do Not Crush) Docusate No Notes: [facility] 8-08 (Same as: l 22:00: Colace) [place] 00 (Do Not Crush) Docusate No Notes: [facility] 8-08 (Same as: l 22:00: Colace) [place] 00 (Do Not Crush) Docusate No Notes: [facility] 8-08 (Same as: l 22:00: Colace) [place] 00 (Do Not Crush) Docusate No Notes: [facility] 8-08 (Same as: l 22:00: Colace) [place] 00 (Do Not Crush) Docusate No Notes: [facility] 8-08 (Same as: l 22:00: Colace) [place] 00 (Do Not Crush) Docusate No Notes: [facility] 8-08 (Same as: l 22:00: Colace) [place] 00 (Do Not Crush) Docusate No Notes: [facility] 8-08 (Same as: l 22:00: Colace) [place] 00 (Do Not Crush) Docusate No Notes: [facility] 8-08 (Same as: l 22:00: Colace) [place] 00 (Do Not Crush) Docusate No Notes: [facility] 8-08 (Same as: l 22:00: Colace) [place] 00 (Do Not Crush) Docusate No Notes: [facility] 8-08 (Same as: l 22:00: Colace) [place] 00 (Do Not Crush) Docusate No Notes: [facility] 8-08 (Same as: l 22:00: Colace) [place] 00 (Do Not Crush) Docusate No Notes: [facility] 8-08 (Same as: l 22:00: Colace) [place] 00 (Do Not Crush) Ondansetron No Notes: Jah jina 8-08 (Same as: l 21:00: Zofran) [place] 00 MEDICATION WASTE Product Size: 4 mg Product Wasted: ___ mg Ondansetron No Notes: Jah jina 8-08 (Same as: l 21:00: Zofran) [place] 00 [...] jina 8- (Same as: l 21:00: Zofran) 00 MEDICATION WASTE Product Size: 4 mg [...] en 01-11 Infuse l 18:30: over 15 [place] 00 minutes Do not exceed 4gm/day of [...] en 01-11 Infuse l 18:30: over 15 [place] 00 minutes Do not exceed 4gm/day of acetaminop hen MEDICATION WASTE Product Size: 1000 mg Product Wasted: ___ mg Acetaminoph No Notes: Jah jina en 01-11 Infuse l 18:30: over 15 [place] 00 minutes Do not exceed 4gm/day of acetaminop hen MEDICATION WASTE Product Size: 1000 mg Product Wasted: ___ mg Acetaminoph No Notes: Jah jina en 01-11 Infuse l 18:30: over 15 [place] 00 minutes Do not exceed 4gm/day of [...] en 01-11 Infuse l 18:30: over 15 [place] 00 minutes Do not exceed 4gm/day of acetaminop hen MEDICATION WASTE Product Size: 1000 mg Product Wasted: ___ mg Acetaminoph No Notes: Jah jina en 01-11 Infuse l 18:30: over 15 [place] 00 minutes Do not exceed 4gm/day of acetaminop hen MEDICATION WASTE Product Size: 1000 mg Product Wasted: ___ mg Acetaminoph No Notes: Jah jina en 01-11 Infuse l 18:30: over 15 [place] 00 minutes Do not exceed 4gm/day of acetaminop hen MEDICATION WASTE Product Size: 1000 mg Product Wasted: ___ mg Acetaminoph No Notes: Jah jina en 01-11 Infuse l 18:30: over 15 [place] 00 minutes Do not exceed 4gm/day of acetaminop hen MEDICATION WASTE Product Size: 1000 mg Product Wasted: ___ mg Acetaminoph No Notes: Jah jina en 01-11 Infuse l 18:30: over 15 [place] 00 minutes Do not exceed 4gm/day of [...] en 01-11 Infuse l 18:30: over 15 [place] 00 minutes Do not exceed 4gm/day of [...] en 01-11 Infuse l 18:30: over 15 [place] 00 minutes Do not exceed 4gm/day of [...] en 01-11 Infuse l 18:30: over 15 [place] 00 minutes Do not exceed 4gm/day of acetaminop hen MEDICATION WASTE Product Size: 1000 mg Product Wasted: ___ mg Acetaminoph No Notes: Jah jina en 01-11 Infuse l 18:30: over 15 [place] 00 minutes Do not exceed 4gm/day of acetaminop hen MEDICATION WASTE Product Size: 1000 mg Product Wasted: ___ mg Acetaminoph No Notes: Jah jina en 01-11 Infuse l 18:30: over 15 [place] 00 minutes Do not exceed 4gm/day of [...] en 01-11 Infuse l 18:30: over 15 [place] 00 minutes Do not exceed 4gm/day of acetaminop hen MEDICATION WASTE Product Size: 1000 mg Product Wasted: ___ mg Acetaminoph No Notes: Jah jina en 01-11 Infuse l 18:30: over 15 [place] 00 minutes Do not exceed 4gm/day of acetaminop hen MEDICATION WASTE Product Size: 1000 mg Product Wasted: ___ mg Acetaminoph No Notes: Jah jina en 01-11 Infuse l 18:30: over 15 [place] 00 minutes Do not exceed 4gm/day of acetaminop hen MEDICATION WASTE Product Size: 1000 mg Product Wasted: ___ mg Acetaminoph No Notes: Jah jina en 01-11 Infuse l 18:30: over 15 [place] 00 minutes Do not exceed 4gm/day of acetaminop hen MEDICATION WASTE Product Size: 1000 mg Product Wasted: ___ mg Acetaminoph No Notes: Jah jina en 01-11 Infuse l 18:30: over 15 [place] 00 minutes Do not exceed 4gm/day of acetaminop hen MEDICATION WASTE Product Size: 1000 mg Product Wasted: ___ mg Acetaminoph No Notes: Jah jina en 01-11 Infuse l 18:30: over 15 [place] 00 minutes Do not exceed 4gm/day of acetaminop hen MEDICATION WASTE Product Size: 1000 mg Product Wasted: ___ mg Acetaminoph No Notes: Jah jina en 01-11 Infuse l 18:30: over 15 [place] 00 minutes Do not exceed 4gm/day of acetaminop hen MEDICATION WASTE Product Size: 1000 mg Product Wasted: ___ mg Acetaminoph No Notes: Jah jina en 01-11 Infuse l 18:30: over 15 [place] 00 minutes Do not exceed 4gm/day of acetaminop hen MEDICATION WASTE Product Size: 1000 mg Product Wasted: ___ mg Acetaminoph No Notes: Jah jina en 01-11 Infuse l 18:30: over 15 [place] 00 minutes Do not exceed 4gm/day of acetaminop hen MEDICATION WASTE Product Size: 1000 mg Product Wasted: ___ mg Acetaminoph No Notes: Jah jina en 01-11 Infuse l 18:30: over 15 [place] 00 minutes Do not exceed 4gm/day of acetaminop hen MEDICATION WASTE Product Size: 1000 mg Product Wasted: ___ mg Acetaminoph 2017-0 No Notes: Jah jina en 01-11 Infuse l 18:30: over 15 [place] 00 minutes Do not exceed 4gm/day of [...] a 01-11 (Same As: l 18:00: Ancef, [place] 00 Kefzol) MEDICATION WASTE Product Size: 1000 mg Product Wasted: ___ mg Cefazolin 2017-0 No Notes: Memori a 01-11 (Same As: l 18:00: Ancef, [place] 00 Kefzol) MEDICATION WASTE Product Size: 1000 mg Product Wasted: ___ mg Cefazolin 2017-0 No Notes: Memori a 01-11 (Same As: l 18:00: Ancef, [place] 00 Kefzol) MEDICATION WASTE Product Size: 1000 [...] a 01-11 (Same As: l 18:00: Ancef, [place] 00 Kefzol) MEDICATION WASTE Product Size: 1000 mg Product Wasted: ___ mg Cefazolin 2017-0 No Notes: [facility] a 01-11 (Same As: l 18:00: Ancef, [place] 00 Kefzol) MEDICATION WASTE Product Size: 1000 mg Product Wasted: ___ mg Cefazolin 2017-0 No Notes: Memori a 01-11 (Same As: l 18:00: Ancef, [place] 00 Kefzol) MEDICATION WASTE Product Size: 1000 mg Product Wasted: ___ mg Cefazolin 2017-0 No Notes: Memori a 01-11 (Same As: l 18:00: Ancef, [place] 00 Kefzol) MEDICATION WASTE Product Size: 1000 mg Product Wasted: ___ mg Cefazolin 2017-0 No Notes: [facility]ori a 01-11 (Same As: l 18:00: Ancef, [place] 00 Kefzol) MEDICATION WASTE Product Size: 1000 mg Product Wasted: ___ mg Cefazolin 2017-0 No Notes: [facility] a 01-11 (Same As: l 18:00: Ancef, [place] 00 Kefzol) MEDICATION WASTE Product Size: 1000 mg Product Wasted: ___ mg Cefazolin 2017-0 No Notes: [facility] a 01-11 (Same As: l 18:00: Ancef, [place] 00 Kefzol) MEDICATION WASTE Product Size: 1000 mg Product Wasted: ___ mg Cefazolin 2017-0 No Notes: Memori a 01-11 (Same As: l 18:00: Ancef, [place] 00 Kefzol) MEDICATION WASTE Product Size: 1000 mg Product Wasted: ___ mg Cefazolin 2017-0 No Notes: Memori a 01-11 (Same As: l 18:00: Ancef, [place] 00 Kefzol) MEDICATION WASTE Product Size: 1000 mg Product Wasted: ___ mg Cefazolin 2017-0 No Notes: Memori a 01-11 (Same As: l 18:00: Ancef, [place] 00 Kefzol) MEDICATION WASTE Product Size: 1000 mg Product Wasted: ___ mg Cefazolin 2017-0 No Notes: Memori a 01-11 (Same As: l 18:00: Ancef, [place] 00 Kefzol) MEDICATION WASTE Product Size: 1000 mg Product Wasted: ___ mg Cefazolin 2017-0 No Notes: Memori a 01-11 (Same As: l 18:00: Ancef, [place] 00 Kefzol) MEDICATION WASTE Product Size: 1000 [...] a 01-11 (Same As: l 18:00: Ancef, [place] 00 Kefzol) MEDICATION WASTE Product Size: 1000 mg Product Wasted: ___ mg Cefazolin 2017-0 No Notes: Memori a 01-11 (Same As: l 18:00: Ancef, [place] 00 Kefzol) MEDICATION WASTE Product Size: 1000 mg Product Wasted: ___ mg Cefazolin 2017-0 No Notes: Memori a 01-11 (Same As: l 18:00: Ancef, [place] 00 Kefzol) MEDICATION WASTE Product Size: 1000 mg Product Wasted: ___ mg Cefazolin 2017-0 No Notes: Memori a 01-11 (Same As: l 18:00: Ancef, [place] 00 Kefzol) MEDICATION WASTE Product Size: 1000 [...] a 01-11 (Same As: l 18:00: Ancef, [place] 00 Kefzol) MEDICATION WASTE Product Size: 1000 mg Product Wasted: ___ mg Cefazolin 2017-0 No Notes: Memori a 01-11 (Same As: l 18:00: Ancef, [place] 00 Kefzol) MEDICATION WASTE Product Size: 1000 mg Product Wasted: ___ mg Cefazolin 2017-0 No Notes: Memori a 01-11 (Same As: l 18:00: Ancef, [place] 00 Kefzol) MEDICATION WASTE Product Size: 1000 mg Product Wasted: ___ mg Cefazolin 2017-0 No Notes: Memori a 01-11 (Same As: l 18:00: Ancef, [place] 00 Kefzol) MEDICATION WASTE Product Size: 1000 mg Product Wasted: ___ mg Cefazolin 2017-0 No Notes: Memori a 01-11 (Same As: l 18:00: Ancef, [place] 00 Kefzol) MEDICATION WASTE Product Size: 1000 [...] a 01-11 (Same As: l 18:00: Ancef, [place] 00 Kefzol) MEDICATION WASTE Product Size: 1000 mg Product Wasted: ___ mg Cefazolin 2017-0 No Notes: Memori a 01-11 (Same As: l 18:00: Ancef, [place] 00 Kefzol) MEDICATION WASTE Product Size: 1000 mg Product Wasted: ___ mg Cefazolin 2017-0 No Notes: Memori a 01-11 (Same As: l 18:00: Ancef, [place] 00 Kefzol) MEDICATION WASTE Product Size: 1000 mg Product Wasted: ___ mg Cefazolin 2017-0 No Notes: Memori a 01-11 (Same As: l 18:00: Ancef, [place] 00 Kefzol) MEDICATION WASTE Product Size: 1000 [...] mg ferrous 2017-0 No Notes: Memoria sulfate 01-11 Give with l 17:00: food. "Do Not Crush" gabapentin No Notes: Memor ia 01-11 (Same as: l 17:00: Neurontin) [place] 00 celecoxib 0 No Notes: Memori a 01-11 NSAID. l 17:00: Please [place] 00 check indication . Not for seizure. (Same As: CeleBREX) ferrous 2016-0 No Notes: [facility]oria sulfate 8-08 Give with l 17:00: food. "Do [place] 00 Not Crush" gabapentin 2016-0 No Notes: Memor ia 8-08 (Same as: l 17:00: Neurontin) [place] 00 celecoxib 0 No Notes: Memori a 8-08 NSAID. l 17:00: Please [place] 00 check indication . Not for seizure. (Same As: CeleBREX) ferrous 2016-0 No Notes: [facility] sulfate 8-08 Give with l 17:00: food. "Do [place] 00 Not Crush" gabapentin 2016-0 No Notes: Memor ia 8-08 (Same as: l 17:00: Neurontin) [place] 00 celecoxib 0 No Notes: Memori a 8-08 NSAID. l 17:00: Please [place] 00 check indication . Not for seizure. (Same As: CeleBREX) ferrous 0 No Notes: Memoria sulfate 8-08 Give with l 17:00: food. "Do [place] 00 Not Crush" gabapentin 0 No Notes: Memor ia 8-08 (Same as: l 17:00: Neurontin) [place] 00 celecoxib 0 No Notes: Memori a 8-08 NSAID. l 17:00: Please [place] 00 check indication . Not for seizure. (Same As: CeleBREX) ferrous 2016-0 No Notes: [facility] sulfate 8-08 Give with l 17:00: food. "Do [place] 00 Not Crush" gabapentin 2016-0 No Notes: Memor ia 8-08 (Same as: l 17:00: Neurontin) [place] 00 celecoxib 2016-0 No Notes: Memori a 8-08 NSAID. l 17:00: Please [place] 00 check indication . Not for seizure. [...] 8-08 Give with l 17:00: food. "Do [place] 00 Not Crush" gabapentin 2017-0 No Notes: Memor ia 8-08 (Same as: l 17:00: Neurontin) [place] 00 celecoxib 0 No Notes: Memori a 8-08 NSAID. l 17:00: Please [place] 00 check indication . Not for seizure. (Same As: CeleBREX) ferrous 0 No Notes: Memoria sulfate 8-08 Give with l 17:00: food. "Do [place] 00 Not Crush" gabapentin 2016-0 No Notes: Memor ia 8-08 (Same as: l 17:00: Neurontin) [place] 00 celecoxib 0 No Notes: Memori a 8-08 NSAID. l 17:00: Please [place] 00 check indication . Not for seizure. (Same As: CeleBREX) ferrous 0 No Notes: Memoria sulfate 8-08 Give with l 17:00: food. "Do [place] 00 Not Crush" gabapentin 2016-0 No Notes: Memor ia 8-08 (Same as: l 17:00: Neurontin) [place] 00 celecoxib 0 No Notes: Memori a 8-08 NSAID. l 17:00: Please [place] 00 check indication . Not for seizure. (Same As: CeleBREX) ferrous 2016-0 No Notes: [facility]oria sulfate 8-08 Give with l 17:00: food. "Do [place] 00 Not Crush" gabapentin 2017-0 No Notes: Memor ia 8-08 (Same as: l 17:00: Neurontin) [place] 00 celecoxib 2016-0 No Notes: Memori a 8-08 NSAID. l 17:00: Please [place] 00 check indication . Not for seizure. (Same As: CeleBREX) ferrous 2017-0 No Notes: [facility] sulfate 8-08 Give with l 17:00: food. "Do [place] 00 Not Crush" gabapentin No Notes: Memor ia 8-08 (Same as: l 17:00: Neurontin) [place] 00 celecoxib No Notes: Memori a 8-08 NSAID. l 17:00: Please [place] 00 check indication . Not for seizure. (Same As: CeleBREX) ferrous No Notes: Memoria sulfate 8-08 Give with l 17:00: food. "Do [place] 00 Not Crush" gabapentin No Notes: Memor ia 8-08 (Same as: l 17:00: Neurontin) [place] 00 gabapentin No Notes: Memor ia 8-08 (Same as: l 17:00: Neurontin) [place] celecoxib No Notes: Memori a 8-08 NSAID. l 17:00: Please [place] 00 check indication . Not for seizure. (Same As: CeleBREX) ferrous No Notes: Memoria sulfate 8-08 Give with l 17:00: food. "Do [place] 00 Not Crush" celecoxib No Notes: Memori a 8-08 NSAID. l 17:00: Please [place] 00 check indication . Not for seizure. (Same As: CeleBREX) gabapentin No Notes: Memor ia 8-08 (Same as: l 17:00: Neurontin) [place] 00 celecoxib No Notes: Memori a 8-08 NSAID. l 17:00: Please [place] 00 check indication . Not for seizure. (Same As: CeleBREX) ferrous 0 No Notes: Memoria sulfate 8-08 Give with l 17:00: food. "Do [place] 00 Not Crush" ferrous 2016-0 No Notes: Memoria sulfate 8-08 Give with l 17:00: food. "Do [place] 00 Not Crush" gabapentin 0 No Notes: Memor ia 8-08 (Same as: l 17:00: Neurontin) [place] 00 celecoxib 0 No Notes: Memori a 8-08 NSAID. l 17:00: Please [place] 00 check indication . Not for seizure. (Same As: CeleBREX) ferrous 2016-0 No Notes: Memoria sulfate 8-08 Give with l 17:00: food. "Do [place] 00 Not Crush" gabapentin 2016-0 No Notes: Memor ia 8-08 (Same as: l 17:00: Neurontin) [place] 00 celecoxib 0 No Notes: Memori a 8-08 NSAID. l 17:00: Please [place] 00 check indication . Not for seizure. (Same As: CeleBREX) ferrous 2016-0 No Notes: Memoria sulfate 8-08 Give with l 17:00: food. "Do [place] 00 Not Crush" gabapentin 0 No Notes: Memor ia 8-08 (Same as: l 17:00: Neurontin) [place] 00 celecoxib No Notes: Memori a 8-08 NSAID. l 17:00: Please [place] 00 check indication . Not for seizure. (Same As: CeleBREX) ferrous 0 No Notes: Memoria sulfate 8-08 Give with l 17:00: food. "Do [place] 00 Not Crush" gabapentin 0 No Notes: Memor ia 8-08 (Same as: l 17:00: Neurontin) [place] 00 celecoxib No Notes: Memori a 8-08 NSAID. l 17:00: Please [place] 00 check indication . Not for seizure. (Same As: CeleBREX) ferrous 0 No Notes: Memoria sulfate 8-08 Give with l 17:00: food. "Do [place] 00 Not Crush" gabapentin 0 No Notes: Memor ia 8-08 (Same as: l 17:00: Neurontin) [place] 00 celecoxib No Notes: Memori a 8-08 NSAID. l 17:00: Please [place] 00 check indication . Not for seizure. (Same As: CeleBREX) ferrous 2016-0 No Notes: Memoria sulfate 8-08 Give with l 17:00: food. "Do [place] 00 Not Crush" gabapentin 2016-0 No Notes: Memor ia 8-08 (Same as: l 17:00: Neurontin) [place] 00 celecoxib 2016-0 No Notes: Memori a 8-08 NSAID. l 17:00: Please [place] 00 check indication . Not for seizure. (Same As: CeleBREX) ferrous 2016-0 No Notes: Memoria sulfate 8-08 Give with l 17:00: food. "Do [place] 00 Not Crush" gabapentin 2017-0 No Notes: Memor ia 8-08 (Same as: l 17:00: Neurontin) [place] 00 celecoxib 2016-0 No Notes: Memori a 8-08 NSAID. l 17:00: Please [place] 00 check indication . Not for seizure. (Same As: CeleBREX) ferrous 2016-0 No Notes: Memoria sulfate 8-08 Give with l 17:00: food. "Do [place] 00 Not Crush" gabapentin 2017-0 No Notes: [...] ia 8-08 (Same as: l 17:00: Neurontin) [place] 00 celecoxib 0 No Notes: Memori a 8-08 NSAID. l 17:00: Please [place] 00 check indication . Not for seizure. (Same As: CeleBREX) ferrous 0 No Notes: Memoria sulfate 8-08 Give with l 17:00: food. "Do [place] 00 Not Crush" gabapentin 0 No Notes: Memor ia 8-08 (Same as: l 17:00: Neurontin) [place] 00 celecoxib 2016-0 No Notes: Memori a [...] ia 8-08 (Same as: l 17:00: Neurontin) [place] 00 celecoxib 2016-0 No Notes: Memori a 8-08 NSAID. l 17:00: Please [place] 00 check indication . Not for seizure. (Same As: CeleBREX) ferrous 2016-0 No Notes: Memoria sulfate 8-08 Give with l 17:00: food. "Do [place] 00 Not Crush" gabapentin 2017-0 No Notes: Memor ia 8-08 (Same as: l 17:00: Neurontin) [place] 00 celecoxib 0 No Notes: Memori a 8-08 NSAID. l 17:00: Please [place] 00 check indication . Not for seizure. (Same As: CeleBREX) ferrous 2016-0 No Notes: Memoria sulfate 8-08 Give with l 17:00: food. "Do [place] 00 Not Crush" gabapentin 2017-0 No Notes: Memor ia 8-08 (Same as: l 17:00: Neurontin) [place] 00 celecoxib 0 No Notes: Memori a 8-08 NSAID. l 17:00: Please [place] 00 check indication . Not for seizure. (Same As: CeleBREX) ferrous 0 No Notes: Memoria sulfate 8-08 Give with l 17:00: food. "Do [place] 00 Not Crush" gabapentin 2016-0 No Notes: Memor ia 8-08 (Same as: l 17:00: Neurontin) [place] 00 celecoxib 0 No Notes: [facility] a 8-08 NSAID. l 17:00: Please [place] 00 check indication . Not for seizure. (Same As: CeleBREX) ferrous 2016-0 No Notes: [facility] sulfate 8-08 Give with l 17:00: food. "Do [place] 00 Not Crush" gabapentin 2017-0 No Notes: Memor ia 8-08 (Same as: l 17:00: Neurontin) [place] 00 celecoxib 2017-0 No Notes: [facility] a 8-08 NSAID. l 17:00: Please [place] 00 check indication . Not for seizure. (Same As: CeleBREX) ferrous 2016-0 No Notes: [facility] sulfate 8-08 Give with l 17:00: food. "Do [place] 00 Not Crush" gabapentin 2017-0 No Notes: Memor ia 8-08 (Same as: l 17:00: Neurontin) [place] 00 celecoxib 2016-0 No Notes: [facility] a 8-08 NSAID. l 17:00: Please [place] 00 check indication . Not for seizure. (Same As: CeleBREX) ferrous 2016-0 No Notes: [facility] sulfate 8-08 Give with l 17:00: food. "Do [place] 00 Not Crush" gabapentin 2017-0 No Notes: [...] Memori a 8-08 NSAID. l 17:00: Please [place] 00 check indication . Not for seizure. (Same As: CeleBREX) ferrous 2016-0 No Notes: [facility] sulfate 8-08 Give with l 17:00: food. "Do [place] 00 Not Crush" gabapentin 2017-0 No Notes: Memor ia 8-08 (Same as: l 17:00: Neurontin) [place] 00 celecoxib 2016-0 No Notes: Memori a [...] 8-08 Give with l 17:00: food. "Do [place] 00 Not Crush" gabapentin 2017-0 No Notes: Memor ia 8-08 (Same as: l 17:00: Neurontin) [place] 00 celecoxib 0 No Notes: Mem[facility] a 8-08 NSAID. l 17:00: Please [place] 00 check indication . Not for seizure. (Same As: CeleBREX) ferrous 2016-0 No Notes: [facility] sulfate 8-08 Give with l 17:00: food. "Do [place] 00 Not Crush" gabapentin No Notes: Memor ia 8-08 (Same as: l 17:00: Neurontin) [place] 00 celecoxib 0 No Notes: Mem[facility] a 8-08 NSAID. l 17:00: Please [place] 00 check indication . Not for seizure. (Same As: CeleBREX) ferrous 2016-0 No Notes: [facility] sulfate 8-08 Give with l 17:00: food. "Do [place] 00 Not Crush" gabapentin 0 No Notes: Memor ia 8-08 (Same as: l 17:00: Neurontin) [place] 00 celecoxib No Notes: [facility] a 8-08 NSAID. l 17:00: Please [place] 00 check indication . Not for seizure. (Same As: CeleBREX) ferrous 0 No Notes: [facility] sulfate 8-08 Give with l 17:00: food. "Do [place] 00 Not Crush" gabapentin 0 No Notes: Memor ia 8-08 (Same as: l 17:00: Neurontin) [place] 00 celecoxib 0 No Notes: [facility] a 8-08 NSAID. l 17:00: Please [place] 00 check indication . Not for seizure. [...] food. "Do [place] 00 Not Crush" Reglan 2016-0 No Notes: [facility] 8-08 (Same as: l 16:30: Reglan) [place] 00 Take 30 min before meals Reglan 2017-0 No Notes: [facility] 8-08 (Same as: l 16:30: Reglan) [place] 00 Take 30 min before meals Reglan 2017-0 No Notes: [facility] 8-08 (Same as: l 16:30: Reglan) [place] 00 Take 30 min before meals Reglan 2017-0 No Notes: [facility] 8-08 (Same as: l 16:30: Reglan) [place] 00 Take 30 min before meals Reglan 2017-0 No Notes: [facility] 8-08 (Same as: l 16:30: Reglan) [place] 00 Take 30 min before meals Reglan 2017-0 No Notes: [facility] 8-08 (Same as: l 16:30: Reglan) [place] 00 Take 30 min before meals Reglan 2017-0 No Notes: [facility] 8-08 (Same as: l 16:30: Reglan) [place] 00 Take 30 min before meals Reglan [...] [facility]oria 8-08 (Same as: l 16:30: Reglan) [place] 00 Take 30 min before meals Reglan 2017-0 No Notes: [facility] 8-08 (Same as: l 16:30: Reglan) [place] 00 Take 30 min before meals Reglan 2017-0 No Notes: [facility] 8-08 (Same as: l 16:30: Reglan) [place] 00 Take 30 min before meals Reglan 2017-0 No Notes: [facility] 8-08 (Same as: l 16:30: Reglan) [place] 00 Take 30 min before meals Reglan 2017-0 No Notes: [facility] 8-08 (Same as: l 16:30: Reglan) [place] 00 Take 30 min before meals Reglan 2017-0 No Notes: [facility] 8-08 (Same as: l 16:30: Reglan) [place] 00 Take 30 min before meals Reglan 2017-0 No Notes: [facility] 8-08 (Same as: l 16:30: Reglan) [place] 00 Take 30 min before meals Reglan 2017-0 No Notes: [facility] 8-08 (Same as: l 16:30: Reglan) [place] 00 Take 30 min before meals Reglan 2017-0 No Notes: [facility] 8-08 (Same as: l 16:30: Reglan) [place] 00 Take 30 min before meals Reglan 2017-0 No Notes: [facility] 8-08 (Same as: l 16:30: Reglan) [place] 00 Take 30 min before meals Reglan 2017-0 No Notes: [facility] 8-08 (Same as: l 16:30: Reglan) [place] 00 Take 30 min before meals Reglan 2017-0 No Notes: [facility] 8-08 (Same as: l 16:30: Reglan) [place] 00 Take 30 min before meals Reglan 2017-0 No Notes: [facility] 8-08 (Same as: l 16:30: Reglan) [place] 00 Take 30 min before meals Reglan 2017-0 No Notes: [facility] 8-08 (Same as: l 16:30: Reglan) [place] 00 Take 30 min before meals Reglan 2017-0 No Notes: [facility] 8-08 (Same as: l 16:30: Reglan) [place] 00 Take 30 min before meals Reglan 2017-0 No Notes: [facility] 8-08 (Same as: l 16:30: Reglan) [place] 00 Take 30 min before meals Reglan 2017-0 No Notes: [facility] 8-08 (Same as: l 16:30: Reglan) [place] 00 Take 30 min before meals Reglan 2017-0 No Notes: [facility] 8-08 (Same as: l 16:30: Reglan) [place] 00 Take 30 min before meals Reglan 2017-0 No Notes: [facility] 8-08 (Same as: l 16:30: Reglan) [place] 00 Take 30 min before meals Reglan 2017-0 No Notes: [facility] 8-08 (Same as: l 16:30: Reglan) [place] 00 Take 30 min before meals Reglan 2017-0 No Notes: [facility] 8-08 (Same as: l 16:30: Reglan) [place] 00 Take 30 min before meals Reglan 2017-0 No Notes: [facility] 8-08 (Same as: l 16:30: Reglan) [place] 00 Take 30 min before meals Reglan No Notes: [facility] 8-08 (Same as: l 16:30: Reglan) [place] 00 Take 30 min before meals Reglan 20170 No Notes: [facility] 8-08 (Same as: l 16:30: Reglan) [place] 00 Take 30 min before meals Reglan 2017-0 No Notes: [facility] 8-08 (Same as: l 16:30: Reglan) [place] 00 Take 30 min before meals Reglan 2017 No Notes: [facility] 8-08 (Same as: l 16:30: Reglan) [place] 00 Take 30 min before meals Reglan 0 No Notes: [facility] 8-08 (Same as: l 16:30: Reglan) [place] 00 Take 30 min before meals Reglan No Notes: [facility] 8-08 (Same as: l 16:30: Reglan) [place] 00 Take 30 min before meals Reglan No Notes: [facility] 8-08 (Same as: l 16:30: Reglan) [place] 00 Take 30 min before meals Reglan No Notes: [facility] 8-08 (Same as: l 16:30: Reglan) [place] 00 Take 30 min before meals Reglan No Notes: [facility] 8-08 (Same as: l 16:30: Reglan) [place] 00 Take 30 min before meals Naloxone No Notes: [facility] 8-08 Same as l 16:13: Narcan [place] 00 Methocarbam No Notes: Jah jina ol 8-08 (Same l 16:13: as:Robaxin [place] 00 ) Morphine No Notes: [facility] 8-08 (Same l 16:13: as:MORPhin [place] 00 e Sulfate) Oxycodone No Notes: [facility]ori a Hydrochlori 8-08 (Same as: l de 5 MG 16:13: Roxicodone Herm pedro Oral Tablet 00 ) Naloxone No Notes: [facility] 8-08 Same as l 16:13: Narcan [place] 00 Methocarbam No Notes: Jah jina ol 8-08 (Same l 16:13: as:Robaxin [place] 00 ) Morphine No Notes: [facility] 8-08 (Same l 16:13: as:MORPhin [place] 00 e Sulfate) Oxycodone No Notes: [facility] a Hydrochlori 8-08 (Same as: l de 5 MG 16:13: Roxicodone Herm pedro Oral Tablet 00 ) Naloxone No Notes: [facility] 8-08 Same as l 16:13: Narcan [place] 00 Methocarbam No Notes: Jah jina ol 8-08 (Same l 16:13: as:Robaxin [place] 00 ) Morphine No Notes: [facility] 8-08 (Same l 16:13: as:MORPhin [place] 00 e Sulfate) Oxycodone No Notes: [facility] a Hydrochlori 8-08 (Same as: l de 5 MG 16:13: Roxicodone Herm pedro Oral Tablet ) Naloxone No Notes: [facility] 8-08 Same as l 16:13: Narcan [place] 00 Methocarbam No Notes: Jah jina ol 8-08 (Same l 16:13: as:Robaxin [place] 00 ) Morphine No Notes: [facility] 8-08 (Same l 16:13: as:MORPhin [place] 00 e Sulfate) Oxycodone No Notes: [facility] a Hydrochlori 8-08 (Same as: l de 5 MG 16:13: Roxicodone Herm pedro Oral Tablet ) Naloxone No Notes: [facility] 8-08 Same as l 16:13: Narcan [place] 00 Methocarbam No Notes: Jah jina ol 8-08 (Same l 16:13: as:Robaxin [place] 00 ) Morphine No Notes: [facility] 8-08 (Same l 16:13: as:MORPhin [place] 00 e Sulfate) Oxycodone No Notes: [facility] a Hydrochlori 8-08 (Same as: l de 5 MG 16:13: Roxicodone Herm pedro Oral Tablet 00 ) Naloxone No Notes: [facility] 8-08 Same as l 16:13: Narcan [place] 00 Methocarbam No Notes: Jah jina ol 8-08 (Same l 16:13: as:Robaxin [place] 00 ) Morphine No Notes: [facility] 8-08 (Same l 16:13: as:MORPhin [place] 00 e Sulfate) Oxycodone No Notes: [facility] a Hydrochlori 8-08 (Same as: l de 5 MG 16:13: Roxicodone Herm pedro Oral Tablet 00 ) Naloxone No Notes: [facility] 8-08 Same as l 16:13: Narcan [place] 00 Methocarbam No Notes: Jah jina ol 8-08 (Same l 16:13: as:Robaxin [place] 00 ) Morphine No Notes: [facility] 8-08 (Same l 16:13: as:MORPhin [place] 00 e Sulfate) Oxycodone No Notes: [facility] a Hydrochlori 8-08 (Same as: l de 5 MG 16:13: Roxicodone Herm pedro Oral Tablet 00 ) Naloxone No Notes: [facility] 8-08 Same as l 16:13: Narcan [place] 00 Methocarbam No Notes: Jah jina ol 8-08 (Same l 16:13: as:Robaxin [place] 00 ) Morphine No Notes: [facility] 8-08 [...] jina ol 8-08 (Same l 16:13: as:Robaxin [place] 00 ) Morphine No Notes: [facility] 8-08 (Same l 16:13: as:MORPhin [place] 00 e Sulfate) Oxycodone No Notes: [facility] a Hydrochlori 8-08 (Same as: l de 5 MG 16:13: Roxicodone Herm pedro Oral Tablet 00 ) Naloxone No Notes: [facility] 8-08 Same as l 16:13: Narcan [place] 00 Methocarbam No Notes: Jah jina ol 8-08 (Same l 16:13: as:Robaxin [place] 00 ) Morphine No Notes: [facility] 8-08 (Same l 16:13: as:MORPhin [place] 00 e Sulfate) Oxycodone No Notes: [facility] a Hydrochlori 8-08 (Same as: l de 5 MG 16:13: Roxicodone Herm pedro Oral Tablet 00 ) Naloxone No Notes: [facility] 8-08 Same as l 16:13: Narcan [place] 00 Methocarbam No Notes: Jah jina ol 8-08 (Same l 16:13: as:Robaxin [place] 00 ) Morphine No Notes: [facility] 8-08 (Same l 16:13: as:MORPhin [place] 00 e Sulfate) Oxycodone No Notes: [facility] a Hydrochlori 8-08 (Same as: l de 5 MG 16:13: Roxicodone Herm pedro Oral Tablet 00 ) Naloxone No Notes: [facility] 8-08 Same as l 16:13: Narcan [place] 00 Methocarbam No Notes: Jah jina ol 8-08 (Same l 16:13: as:Robaxin [place] 00 ) Morphine No Notes: [facility] 8-08 (Same l 16:13: as:MORPhin [place] 00 e Sulfate) Oxycodone No Notes: [facility] a Hydrochlori 8-08 (Same as: l de 5 MG 16:13: Roxicodone Herm pedro Oral Tablet 00 ) Naloxone No Notes: [facility] 8-08 Same as l 16:13: Narcan [place] 00 Methocarbam No Notes: Jah jina ol 8-08 (Same l 16:13: as:Robaxin [place] 00 ) Morphine No Notes: [facility] 8-08 [...] Notes: [facility] 8-08 (Same l 16:13: as:MORPhin [place] 00 e Sulfate) Oxycodone No Notes: [facility] a Hydrochlori 8-08 (Same as: l de 5 MG 16:13: Roxicodone Herm pedro Oral Tablet 00 ) Naloxone No Notes: [facility] 8-08 Same as l 16:13: Narcan [place] 00 Methocarbam No Notes: Jah jina ol 8-08 (Same l 16:13: as:Robaxin [place] 00 ) Morphine No Notes: [facility] 8-08 (Same l 16:13: as:MORPhin [place] 00 e Sulfate) Oxycodone No Notes: [facility] a Hydrochlori 8-08 (Same as: l de 5 MG 16:13: Roxicodone Herm pedro Oral Tablet 00 ) Naloxone No Notes: [facility] 8-08 Same as l 16:13: Narcan [place] 00 Naloxone No Notes: [facility] 8-08 Same as l 16:13: Narcan [place] 00 Methocarbam No Notes: Jah ijna ol 8-08 (Same l 16:13: as:Robaxin [place] 00 ) Morphine No Notes: [facility] 8-08 (Same l 16:13: as:MORPhin [place] 00 e Sulfate) Oxycodone No Notes: [facility] a Hydrochlori 8-08 (Same as: l de 5 MG 16:13: Roxicodone Herm pedro Oral Tablet 00 ) Methocarbam No Notes: Jah jina ol 8-08 (Same l 16:13: as:Robaxin [place] 00 ) Naloxone No Notes: [facility] 8-08 Same as l 16:13: Narcan [place] 00 Methocarbam No Notes: Jah jina ol 8-08 (Same l 16:13: as:Robaxin [place] 00 ) Morphine No Notes: [facility] 8-08 (Same l 16:13: as:MORPhin [place] 00 e Sulfate) Oxycodone No Notes: [facility] a Hydrochlori 8-08 (Same as: l de 5 MG 16:13: Roxicodone Herm pedro Oral Tablet 00 ) Morphine No Notes: [facility] 8-08 (Same l 16:13: as:MORPhin [place] 00 e Sulfate) Naloxone No Notes: [facility] 8-08 Same as l 16:13: Narcan [place] 00 Methocarbam No Notes: Jah jina ol [...] [facility]oria 8-08 Same as l 16:13: Narcan [place] 00 Methocarbam No Notes: Jah jina ol 8-08 (Same l 16:13: as:Robaxin [place] 00 ) Morphine No Notes: [facility] 8-08 (Same l 16:13: as:MORPhin [place] 00 e Sulfate) Oxycodone No Notes: [facility] a Hydrochlori 8-08 (Same as: l de 5 MG 16:13: Roxicodone Herm pedro Oral Tablet 00 ) Naloxone No Notes: [facility] 8-08 Same as l 16:13: Narcan [place] 00 Methocarbam No Notes: Jah jina ol 8-08 (Same l 16:13: as:Robaxin [place] 00 ) Morphine No Notes: [facility] 8-08 (Same l 16:13: as:MORPhin [place] 00 e Sulfate) Oxycodone No Notes: [facility] a Hydrochlori 8-08 (Same as: l de 5 MG 16:13: Roxicodone Herm pedro Oral Tablet 00 ) Naloxone No Notes: [facility] 8-08 Same as l 16:13: Narcan [place] 00 Methocarbam No Notes: Jah jina ol 8-08 (Same l 16:13: as:Robaxin [place] 00 ) Morphine No Notes: [facility] 8-08 (Same l 16:13: as:MORPhin [place] 00 e Sulfate) Oxycodone No Notes: [facility] a Hydrochlori 8-08 (Same as: l de 5 MG 16:13: Roxicodone Herm pedro Oral Tablet 00 ) Naloxone No Notes: [facility] 8-08 Same as l 16:13: Narcan [place] 00 Methocarbam No Notes: Jah jina ol 8-08 (Same l 16:13: as:Robaxin [place] 00 ) Morphine No Notes: [facility] 8-08 (Same l 16:13: as:MORPhin [place] 00 e Sulfate) Oxycodone No Notes: [facility] a Hydrochlori 8-08 (Same as: l de 5 MG 16:13: Roxicodone Herm pedro Oral Tablet ) Naloxone No Notes: [facility] 8-08 Same as l 16:13: Narcan [place] 00 Methocarbam No Notes: Jah jian ol 8-08 (Same l 16:13: as:Robaxin [place] [...] Notes: [facility] 8-08 (Same l 16:13: as:MORPhin [place] 00 e Sulfate) Oxycodone No Notes: Memori [...] [facility]oria 8-08 Same as l 16:13: Narcan [place] 00 Methocarbam No Notes: Jah jina ol 8-08 (Same l 16:13: as:Robaxin [place] 00 ) Morphine No Notes: [facility] 8-08 (Same l 16:13: as:MORPhin [place] 00 e Sulfate) Oxycodone No Notes: Memori [...] [facility] 8-08 Same as l 16:13: Narcan [place] 00 Methocarbam No Notes: Jah jina ol 8-08 (Same l 16:13: as:Robaxin [place] 00 ) Morphine No Notes: [facility] 8-08 (Same l 16:13: as:MORPhin [place] 00 e Sulfate) Oxycodone No Notes: [facility] a Hydrochlori 8-08 (Same as: l de 5 MG 16:13: Roxicodone Herm pedro Oral Tablet 00 ) Naloxone No Notes: [facility] 8-08 Same as l 16:13: Narcan [place] 00 Methocarbam No Notes: Jah jina ol 8-08 (Same l 16:13: as:Robaxin [place] 00 ) Morphine No Notes: [facility] 8-08 (Same l 16:13: as:MORPhin [place] 00 e Sulfate) Oxycodone No Notes: [facility] a Hydrochlori 8-08 (Same as: l de 5 MG 16:13: Roxicodone Herm pedro Oral Tablet 00 ) Naloxone No Notes: [facility] 8-08 Same as l 16:13: Narcan [place] 00 Methocarbam No Notes: Jah jina ol 8-08 (Same l 16:13: as:Robaxin [place] 00 ) Morphine No Notes: [facility] 8-08 (Same l 16:13: as:MORPhin [place] 00 e Sulfate) Oxycodone No Notes: [facility] a Hydrochlori 8-08 (Same as: l de 5 MG 16:13: Roxicodone Herm pedro Oral Tablet 00 ) Naloxone No Notes: [facility] 8-08 Same as l 16:13: Narcan [place] 00 Methocarbam No Notes: Jah jina ol 8-08 (Same l 16:13: as:Robaxin [place] 00 ) Morphine No Notes: [facility] 8-08 (Same l 16:13: as:MORPhin [place] 00 e Sulfate) Oxycodone No Notes: [facility] a Hydrochlori 8-08 (Same as: l de 5 MG 16:13: Roxicodone Herm pedro Oral Tablet 00 ) Naloxone No Notes: [facility] 8-08 Same as l 16:13: Narcan [place] 00 Methocarbam No Notes: Jah jina ol 8-08 (Same l 16:13: as:Robaxin [place] 00 ) Morphine No Notes: [facility] 8-08 [...] [facility] 8-08 Same as l 16:13: Narcan [place] 00 Methocarbam No Notes: Jah jina ol 8-08 (Same l 16:13: as:Robaxin [place] 00 ) Morphine No Notes: [facility] 8-08 (Same l 16:13: as:MORPhin [place] 00 e Sulfate) Oxycodone No Notes: [facility] a Hydrochlori 8-08 (Same as: l de 5 MG 16:13: Roxicodone Herm pedro Oral Tablet 00 ) Naloxone No Notes: [facility] 01-11 Same as l 16:13: Narcan [place] 00 Methocarbam No Notes: Jah jina ol 01-11 (Same l 16:13: as:Robaxin [place] 00 ) Morphine No Notes: [facility] 01-11 (Same l 16:13: as:MORPhin [place] 00 e Sulfate) Oxycodone No Notes: [facility] a Hydrochlori 01-11 (Same as: l de 5 MG 16:13: Roxicodone Herm pedro Oral Tablet ) Naloxone No Notes: [facility] 01-11 Same as l 16:13: Narcan [place] 00 Methocarbam No Notes: Jah jina ol 01-11 (Same l 16:13: as:Robaxin [place] 00 ) Morphine No Notes: [facility] 01-11 (Same l 16:13: as:MORPhin [place] 00 e Sulfate) Oxycodone No Notes: [facility] a Hydrochlori 01-11 (Same as: l de 5 MG 16:13: Roxicodone Herm pedro Oral Tablet ) Naloxone No Notes: [facility] 01-11 Same as l 16:13: Narcan [place] 00 Methocarbam No Notes: Jah jina ol 01-11 (Same l 16:13: as:Robaxin [place] 00 ) Morphine No Notes: [facility] 01-11 (Same l 16:13: as:MORPhin [place] 00 e Sulfate) Oxycodone No Notes: [facility] a Hydrochlori 01-11 (Same as: l de 5 MG 16:13: Roxicodone Herm pedro Oral Tablet ) ketOROLAC No IV, ONCE Jah jina (ANES) 808 l 14:08: [place] 00 ketOROLAC 0 No IV, ONCE Jah jina (ANES) 808 l 14:08: [place] 00 ketOROLAC 0 No IV, ONCE Jah jina (ANES) 808 l 14:08: [place] 00 ketOROLAC No IV, ONCE Jah jina (ANES) 808 l 14:08: [place] 00 ketOROLAC 0 No IV, ONCE Jah jina (ANES) 8-08 l 14:08: [place] 00 ketOROLAC 2017-0 No IV, ONCE Jah jina (ANES) 01-11 l 14:08: [place] 00 ketOROLAC 2017-0 No IV, ONCE Jah jina (ANES) 01-11 l 14:08: [place] 00 ketOROLAC 2017-0 No IV, ONCE Jah jina (ANES) 01-11 l 14:08: [place] ketOROLAC 2017-0 No IV, ONCE Jah jina (ANES) 01-11 l 14:08: [place] 00 ketOROLAC 2017-0 No IV, ONCE Jah jina (ANES) 01-11 l 14:08: [place] ketOROLAC 2017-0 No IV, ONCE Jah jina (ANES) 01-11 l 14:08: [place] 00 ketOROLAC 2017-0 No IV, ONCE Jah jina (ANES) 01-11 l 14:08: [place] ketOROLAC 2017-0 No IV, ONCE Jah jina (ANES) 01-11 l 14:08: [place] ketOROLAC 2017-0 No IV, ONCE Jah jina (ANES) 01-11 l 14:08: [place] 00 ketOROLAC 2017-0 No IV, ONCE Jah jina (ANES) 01-11 l 14:08: [place] ketOROLAC 2017-0 No IV, ONCE Jah jina (ANES) 01-11 l 14:08: [place] 00 ketOROLAC 2017-0 No IV, ONCE Jah jina (ANES) 01-11 l 14:08: [place] ketOROLAC 2017-0 No IV, ONCE Jah jina (ANES) 01-11 l 14:08: [place] 00 ketOROLAC 2017-0 No IV, ONCE Jah jina (ANES) 01-11 l 14:08: [place] 00 ketOROLAC 2017-0 No IV, ONCE Jah jina (ANES) 01-11 l 14:08: [place] 00 ketOROLAC 2017-0 No IV, ONCE Jah jina (ANES) 01-11 l 14:08: [place] 00 ketOROLAC 2017-0 No IV, ONCE Jah jina (ANES) 01-11 l 14:08: [place] 00 ketOROLAC 2017-0 No IV, ONCE Jah jina (ANES) 01-11 l 14:08: [place] 00 ketOROLAC 2017-0 No IV, ONCE Jah jina (ANES) 01-11 l 14:08: [place] 00 ketOROLAC 2017-0 No IV, ONCE Jah jina (ANES) 01-11 l 14:08: [place] 00 ketOROLAC 2017-0 No IV, ONCE Jah jina (ANES) 01-11 l 14:08: [place] ketOROLAC 2017-0 No IV, ONCE Jah jina (ANES) 01-11 l 14:08: [place] ketOROLAC 2017-0 No IV, ONCE Jah jina (ANES) 01-11 l 14:08: [place] ketOROLAC 2017-0 No IV, ONCE Jah jina (ANES) 01-11 l 14:08: [place] ketOROLAC 2017-0 No IV, ONCE Jah jina (ANES) 01-11 l 14:08: [place] ketOROLAC 2017-0 No IV, ONCE Jah jina (ANES) 01-11 l 14:08: [place] ketOROLAC 2017-0 No IV, ONCE Jah jina (ANES) 01-11 l 14:08: [place] ketOROLAC 2017-0 No IV, ONCE Jah jina (ANES) 01-11 l 14:08: [place] ketOROLAC 2017-0 No IV, ONCE Jah jina (ANES) 01-11 l 14:08: [place] 00 ketOROLAC 2017-0 No IV, ONCE Jah jina (ANES) 01-11 l 14:08: [place] ketOROLAC 2017-0 No IV, ONCE Jah jina (ANES) 01-11 l 14:08: [place] 00 ketOROLAC 2017-0 No IV, ONCE Jah jina (ANES) 01-11 l 14:08: [place] 00 ketOROLAC 2017-0 No IV, ONCE Jah jina (ANES) 01-11 l 14:08: [place] 00 ketOROLAC 2017-0 No IV, ONCE Jah jina (ANES) 01-11 l 14:08: [place] 00 ketOROLAC 2017-0 No IV, ONCE Jah jina (ANES) 01-11 l 14:08: [place] 00 ketOROLAC 2017-0 No IV, ONCE Jah jina (ANES) 01-11 l 14:08: [place] 00 ondansetron 2017-0 No Route: IV, [facility] (ANES) 01-11 Drug form: l 14:06: INJ, ONCE, [place] 00 Stop date: 01/11/17 9:06:00 CDT ondansetron 2017-0 No Route: IV, [facility] (ANES) 01-11 Drug form: l 14:06: INJ, ONCE, [place] 00 Stop date: 01/11/17 9:06:00 CDT ondansetron 2017-0 No Route: IV, [facility] (ANES) 01-11 Drug form: l 14:06: INJ, ONCE, [place] 00 Stop date: 01/11/17 9:06:00 CDT ondansetron 2017-0 No Route: IV, [facility] (ANES) 01-11 Drug form: l 14:06: INJ, ONCE, [place] 00 Stop date: 01/11/17 9:06:00 CDT ondansetron 2017-0 No Route: IV, [facility] (ANES) 01-11 Drug form: l 14:06: INJ, ONCE, [place] 00 Stop date: 01/11/17 9:06:00 CDT ondansetron 2017-0 No Route: IV, [facility] (ANES) 01-11 Drug form: l 14:06: INJ, ONCE, [place] 00 Stop date: 01/11/17 9:06:00 CDT ondansetron 2017-0 No Route: IV, [facility] (ANES) 01-11 Drug form: l 14:06: INJ, ONCE, [place] 00 Stop date: 01/11/17 9:06:00 CDT ondansetron 2017-0 No Route: IV, [facility] (ANES) 01-11 Drug form: l 14:06: INJ, ONCE, [place] 00 Stop date: 01/11/17 9:06:00 CDT ondansetron 2017-0 No Route: IV, [facility] (ANES) 01-11 Drug form: l 14:06: INJ, ONCE, [place] 00 Stop date: 01/11/17 9:06:00 CDT ondansetron 2017-0 No Route: IV, [facility] (ANES) 01-11 Drug form: l 14:06: INJ, ONCE, [place] 00 Stop date: 01/11/17 9:06:00 CDT ondansetron 2017-0 No Route: IV, [facility] (ANES) 01-11 Drug form: l 14:06: INJ, ONCE, [place] Stop date: 01/11/17 9:06:00 CDT ondansetron 2017-0 No Route: IV, [facility] (ANES) 01-11 Drug form: l 14:06: INJ, ONCE, [place] 00 Stop date: 01/11/17 9:06:00 CDT ondansetron 2017-0 No Route: IV, [facility] (ANES) 01-11 Drug form: l 14:06: INJ, ONCE, [place] Stop date: 01/11/17 9:06:00 CDT ondansetron 2017-0 No Route: IV, [facility] (ANES) 01-11 Drug form: l 14:06: INJ, ONCE, Stop date: 01/11/17 9:06:00 CDT ondansetron 2017-0 No Route: IV, [facility] (ANES) 01-11 Drug form: l 14:06: INJ, ONCE, [place] 00 Stop date: 01/11/17 9:06:00 CDT ondansetron 2017-0 No Route: IV, [facility] (ANES) 01-11 Drug form: l 14:06: INJ, ONCE, [place] 00 Stop date: 01/11/17 9:06:00 CDT ondansetron 2017-0 No Route: IV, [facility] (ANES) 01-11 Drug form: l 14:06: INJ, ONCE, [place] 00 Stop date: 01/11/17 9:06:00 CDT ondansetron 2017-0 No Route: IV, [facility] (ANES) 01-11 Drug form: l 14:06: INJ, ONCE, [place] Stop date: 01/11/17 9:06:00 CDT ondansetron 2017-0 No Route: IV, [facility] (ANES) 01-11 Drug form: l 14:06: INJ, ONCE, [place] 00 Stop date: 01/11/17 9:06:00 CDT ondansetron 2017-0 No Route: IV, [facility] (ANES) 01-11 Drug form: l 14:06: INJ, ONCE, [place] 00 Stop date: 01/11/17 9:06:00 CDT ondansetron 2017-0 No Route: IV, [facility] (ANES) 01-11 Drug form: l 14:06: INJ, ONCE, [place] 00 Stop date: 01/11/17 9:06:00 CDT ondansetron 2017-0 No Route: IV, [facility] (ANES) 01-11 Drug form: l 14:06: INJ, ONCE, [place] 00 Stop date: 01/11/17 9:06:00 CDT ondansetron 2017-0 No Route: IV, [facility] (ANES) 01-11 Drug form: l 14:06: INJ, ONCE, [place] 00 Stop date: 01/11/17 9:06:00 CDT ondansetron 2017-0 No Route: IV, [facility] (ANES) 01-11 Drug form: l 14:06: INJ, ONCE, [place] 00 Stop date: 01/11/17 9:06:00 CDT ondansetron 2017-0 No Route: IV, [facility] (ANES) 01-11 Drug form: l 14:06: INJ, ONCE, [place] 00 Stop date: 01/11/17 9:06:00 CDT ondansetron 2017-0 No Route: IV, [facility] (ANES) 01-11 Drug form: l 14:06: INJ, ONCE, [place] 00 Stop date: 01/11/17 9:06:00 CDT ondansetron 2017-0 No Route: IV, [facility] (ANES) 01-11 Drug form: l 14:06: INJ, ONCE, [place] Stop date: 01/11/17 9:06:00 CDT ondansetron 2017-0 No Route: IV, [facility] (ANES) 01-11 Drug form: l 14:06: INJ, ONCE, [place] Stop date: 01/11/17 9:06:00 CDT ondansetron 2017-0 [...] 01-11 Drug form: l 14:06: INJ, ONCE, [place] 00 Stop date: 01/11/17 9:06:00 CDT ondansetron 2017-0 No Route: IV, [facility] (ANES) 01-11 Drug form: l 14:06: INJ, ONCE, [place] 00 Stop date: 01/11/17 9:06:00 CDT ondansetron 2017-0 No Route: IV, [facility] (ANES) 01-11 Drug form: l 14:06: INJ, ONCE, [place] 00 Stop date: 01/11/17 9:06:00 CDT ondansetron 2017-0 No Route: IV, [facility] (ANES) 01-11 Drug form: l 14:06: INJ, ONCE, [place] 00 Stop date: 01/11/17 9:06:00 CDT ondansetron 2017-0 No Route: IV, [facility] (ANES) 01-11 Drug form: l 14:06: INJ, ONCE, [place] 00 Stop date: 01/11/17 9:06:00 CDT ondansetron 2017-0 No Route: IV, [facility] (ANES) 01-11 Drug form: l 14:06: INJ, ONCE, [place] 00 Stop date: 01/11/17 9:06:00 CDT ondansetron 2017-0 No Route: IV, [facility] (ANES) 01-11 Drug form: l 14:06: INJ, ONCE, [place] 00 Stop date: 01/11/17 9:06:00 CDT ondansetron 2017-0 No Route: IV, [facility] (ANES) 01-11 Drug form: l 14:06: INJ, ONCE, [place] 00 Stop date: 01/11/17 9:06:00 CDT ondansetron No Route: IV, Memoria (ANES) 01-11 Drug form: l 14:06: INJ, ONCE, Stop date: 01/11/17 9:06:00 CDT ondansetron No Route: IV, Memoria (ANES) 01-11 Drug form: l 14:06: INJ, ONCE, [place] 00 Stop date: 01/11/17 9:06:00 CDT Tranexamic No Notes: Memor ia Acid 01-11 (Same As: l 13:47: Cyklokapro n) Temazepam No Notes: Memori a 01-11 (Same As: l 13:47: Restoril) Fleet Enema No 133 mL, Mem oria 01-11 Route: MD, l 13:47: Drug Form: YG, Dosing Weight [...] Acid 01-11 (Same As: l 13:47: Cyklokapro [place] 00 n) Temazepam No Notes: Memori a 01-11 (Same As: l 13:47: Restoril) Fleet Enema No 133 mL, Mem oria 8-08 Route: MD, l 13:47: Drug Form: [place] 00 YG, [...] a 8-08 (Same As: l 13:47: Restoril) [place] 00 Fleet Enema No 133 mL, Mem oria 8-08 Route: MD, l 13:47: Drug Form: [place] 00 YG, [...] Acid 8-08 (Same As: l 13:47: Cyklokapro [place] 00 n) Temazepam No Notes: Memori a 8- (Same As: l 13:47: Restoril) Fleet Enema No 133 mL, Mem oria 8-08 Route: MD, l 13:47: Drug Form: [place] 00 YG, [...] No 133 mL, Mem oria 8-08 Route: MD, l 13:47: Drug Form: [place] 00 YG, Dosing Weight 111.409, kg, Daily, [...] No 133 mL, Mem oria 808 Route: MD, l 13:47: Drug Form: [place] 00 YG, [...] No 133 mL, Mem oria 8-08 Route: MD, l 13:47: Drug Form: [place] 00 YG, [...] a 8-08 (Same As: l 13:47: Restoril) [place] 00 Fleet Enema No 133 mL, Mem oria 8-08 Route: MD, l 13:47: Drug Form: [place] 00 YG, Dosing Weight 111.409, kg, Daily, PRN as needed for constipati on, Start date: 01/11/17 8:47:00 CDT, Duration: 30 day, Stop date: 02/10/17 8:46:00 CDT Diphenhydra No Notes: Jah jina mine 8-08 (Same as: l 13:47: Benadryl) [place] 00 Magnesium No Notes: Memori a Hydroxide 8-08 (Same as: l 13:47: Milk of [place] 00 Magnesia, MOM) sodium No 1,000 mL, [...] No 133 mL, Mem oria 08 Route: MD, l 13:47: Drug Form: YG, Dosing Weight 111.409, kg, Daily, PRN as needed for constipati on, Start date: 01/11/17 8:47:00 CDT, Duration: 30 day, Stop date: 02/10/17 8:46:00 CDT Diphenhydra No Notes: Jah jina mine 8-08 (Same as: l 13:47: Benadryl) [place] 00 Magnesium No Notes: Memori a Hydroxide 8-08 (Same as: l 13:47: Milk of [place] 00 Magnesia, MOM) sodium No 1,000 mL, Memori a chloride 8-08 Rate: 75 l 0.45% 1000 13:47: ml/hr, Guillermina nn ml INJ 00 Infuse 1,000 mL over: 13.3 hr, Route: IV, Dosing Weight 111.409 kg, Total Volume: 1,000, Start date: 01/11/17 8:47:00 CDT, Duration: 30 day, Stop date: 02/10/17 8:46:00 CDT Tranexamic No Notes: Memor ia Acid 8-08 (Same As: l 13:47: Cyklokapro [place] 00 n) Temazepam No Notes: Memori a 8-08 (Same As: l 13:47: Restoril) [place] 00 Fleet Enema No 133 mL, Mem oria 8-08 Route: MD, l 13:47: Drug Form: [place] 00 YG, [...] No 133 mL, Mem oria 8-08 Route: MD, l 13:47: Drug Form: [place] 00 YG, Dosing Weight 111.409, kg, Daily, PRN as needed for constipati on, Start date: 01/11/17 8:47:00 CDT, Duration: 30 day, Stop date: 02/10/17 8:46:00 CDT Diphenhydra No Notes: Jah jina mine 8-08 (Same as: l 13:47: Benadryl) [place] Magnesium No Notes: Memori a Hydroxide 8-08 (Same as: l 13:47: Milk of [place] 00 Magnesia, MOM) sodium No 1,000 mL, [...] a 01-11 (Same As: l 13:47: Restoril) [place] 00 Fleet Enema No 133 mL, Mem oria 01-11 Route: MD, l 13:47: Drug Form: [place] 00 YG, Dosing Weight 111.409, kg, Daily, PRN as needed for constipati on, Start date: 01/11/17 8:47:00 CDT, Duration: 30 day, Stop date: 02/10/17 8:46:00 CDT Diphenhydra No Notes: Jah jina mine 8- (Same as: l 13:47: Benadryl) [place] Magnesium No Notes: Memori a Hydroxide 8-08 (Same as: l 13:47: Milk of [place] 00 Magnesia, MOM) sodium 0 No 1,000 mL, Memori a chloride 8-08 Rate: 75 l 0.45% 1000 13:47: ml/hr, Guillermina nn ml INJ 00 Infuse 1,000 mL over: 13.3 hr, Route: IV, Dosing Weight 111.409 kg, Total Volume: 1,000, Start date: 01/11/17 8:47:00 CDT, Duration: 30 day, Stop date: 02/10/17 8:46:00 CDT Tranexamic No Notes: Memor ia Acid 8-08 (Same As: l 13:47: Cyklokapro [place] 00 n) Temazepam No Notes: Memori a 8-08 (Same As: l 13:47: Restoril) [place] Fleet Enema No 133 mL, Mem oria 808 Route: MD, l 13:47: Drug Form: [place] 00 YG, Dosing Weight 111.409, kg, Daily, PRN as needed for constipati on, Start date: 01/11/17 8:47:00 CDT, Duration: 30 day, Stop date: 02/10/17 8:46:00 CDT Diphenhydra No Notes: Jah jina mine 01-11 (Same as: l 13:47: Benadryl) [place] 00 Magnesium No Notes: Memori a Hydroxide [...] Acid 8-08 (Same As: l 13:47: Cyklokapro [place] 00 n) Temazepam No Notes: Memori a 8-08 (Same As: l 13:47: Restoril) [place] 00 Fleet Enema No 133 mL, Mem oria 8-08 Route: MD, l 13:47: Drug Form: [place] 00 YG, [...] No 133 mL, Mem oria 01-11 Route: MD, l 13:47: Drug Form: [place] 00 YG, Dosing Weight 111.409, kg, Daily, [...] Acid 8-08 (Same As: l 13:47: Cyklokapro [place] 00 n) Temazepam No Notes: Memori a 8-08 (Same As: l 13:47: Restoril) [place] Fleet Enema No 133 mL, Mem oria 808 Route: MD, l 13:47: Drug Form: [place] 00 YG, [...] Acid -08 (Same As: l 13:47: Cyklokapro [place] 00 n) Temazepam No Notes: Memori a 8-08 (Same As: l 13:47: Restoril) [place] Fleet Enema No 133 mL, Mem oria 808 Route: MD, l 13:47: Drug Form: [place] 00 YG, Dosing Weight 111.409, kg, Daily, PRN as needed for constipati on, Start date: 01/11/17 8:47:00 CDT, Duration: 30 day, Stop date: 02/10/17 8:46:00 CDT Diphenhydra No Notes: Jah jina mine 8-08 (Same as: l 13:47: Benadryl) Magnesium No Notes: Memori a Hydroxide 8-08 (Same as: l 13:47: Milk of [place] 00 Magnesia, MOM) sodium No 1,000 mL, [...] No 133 mL, Mem oria 01-11 Route: MD, l 13:47: Drug Form: YG, Dosing Weight 111.409, kg, Daily, PRN as needed for constipati on, Start date: 01/11/17 8:47:00 CDT, Duration: 30 day, Stop date: 02/10/17 8:46:00 CDT Diphenhydra No Notes: Jah jina mine - (Same as: l 13:47: Benadryl) Magnesium No Notes: Memori a Hydroxide 8-08 (Same as: l 13:47: Milk of [place] 00 Magnesia, MOM) sodium No 1,000 mL, [...] No 133 mL, Mem oria 808 Route: MD, l 13:47: Drug Form: [place] 00 YG, Dosing Weight 111.409, kg, Daily, [...] No 133 mL, Mem oria 808 Route: MD, l 13:47: Drug Form: [place] 00 YG, Dosing Weight 111.409, kg, Daily, PRN as needed for constipati on, Start date: 01/11/17 8:47:00 CDT, Duration: 30 day, Stop date: 02/10/17 8:46:00 CDT Diphenhydra No Notes: Jah jina mine 808 (Same as: l 13:47: Benadryl) Magnesium No [...] Acid 8- (Same As: l 13:47: Cyklokapro n) Temazepam No Notes: Memori a 8- (Same As: l 13:47: Restoril) Fleet Enema No 133 mL, Mem oria 01-11 Route: MD, l 13:47: Drug Form: YG, Dosing Weight 111.409, kg, Daily, PRN as needed for constipati on, Start date: 01/11/17 8:47:00 CDT, Duration: 30 day, Stop date: 02/10/17 8:46:00 CDT Diphenhydra No Notes: Jah jina mine -08 (Same as: l 13:47: Benadryl) Magnesium No [...] No 133 mL, Mem oria 01-11 Route: MD, l 13:47: Drug Form: [place] 00 YG, [...] MOM) Tranexamic No Notes: Memor ia Acid 01-11 (Same As: l 13:47: Cyklokapro [place] 00 n) sodium No 1,000 mL, Memori a chloride 01-11 Rate: 75 l 0.45% 1000 13:47: ml/hr, Guillermina nn ml INJ 00 Infuse 1,000 mL over: 13.3 hr, Route: IV, Dosing Weight 111.409 kg, Total Volume: 1,000, Start date: 01/11/17 8:47:00 CDT, Duration: 30 day, Stop date: 02/10/17 8:46:00 CDT Temazepam No Notes: Memori a 8-08 (Same As: l 13:47: Restoril) [place] 00 Tranexamic No Notes: Memor ia Acid 8-08 (Same As: l 13:47: Cyklokapro [place] 00 n) Temazepam No Notes: Memori a 8-08 (Same As: l 13:47: Restoril) [place] 00 Fleet Enema No 133 mL, Mem oria 08 Route: MD, l 13:47: Drug Form: [place] 00 YG, Dosing Weight 111.409, kg, Daily, [...] No 133 mL, Mem oria 01-11 Route: MD, l 13:47: Drug Form: [place] 00 YG, Dosing Weight 111.409, kg, Daily, PRN as needed for constipati on, Start date: 01/11/17 8:47:00 CDT, Duration: 30 day, Stop date: 02/10/17 8:46:00 CDT Tranexamic No Notes: Memor ia Acid 01-11 (Same As: l 13:47: Cyklokapro n) Temazepam No Notes: Memori a 01-11 (Same As: l 13:47: Restoril) Fleet Enema No 133 mL, Mem oria 01-11 Route: MD, l 13:47: Drug Form: [place] 00 YG, Dosing Weight 111.409, kg, Daily, PRN as needed for constipati on, Start date: 01/11/17 8:47:00 CDT, Duration: 30 day, Stop date: 02/10/17 8:46:00 CDT Diphenhydra No Notes: Jah jina mine 01-11 (Same as: l 13:47: Benadryl) [place] 00 Magnesium No Notes: Memori a Hydroxide 01-11 (Same as: l 13:47: Milk of [place] 00 Magnesia, MOM) sodium 2017 No 1,000 mL, Memori a chloride 01-11 Rate: 75 l 0.45% 1000 13:47: ml/hr, Guillermina nn ml INJ 00 Infuse 1,000 mL over: 13.3 hr, Route: IV, Dosing Weight 111.409 kg, Total Volume: 1,000, Start date: 01/11/17 8:47:00 CDT, Duration: 30 day, Stop date: 02/10/17 8:46:00 CDT Diphenhydra 2016- No Notes: Jah jina mine 01-11 (Same as: l 13:47: Benadryl) [place] Magnesium No Notes: Memori a Hydroxide 01-11 (Same as: l 13:47: Milk of [place] 00 Magnesia, MOM) Tranexamic No Notes: Memor ia Acid 01-11 (Same As: l 13:47: Cyklokapro n) Temazepam No Notes: Memori a 01-11 (Same As: l 13:47: Restoril) Fleet Enema No 133 mL, Mem oria 01-11 Route: MD, l 13:47: Drug Form: [place] 00 YG, Dosing Weight 111.409, kg, Daily, PRN as needed for constipati on, Start date: 01/11/17 8:47:00 CDT, Duration: 30 day, Stop date: 02/10/17 8:46:00 CDT Diphenhydra No Notes: Jah jina mine 01-11 (Same as: l 13:47: Benadryl) [place] Magnesium No Notes: Memori a Hydroxide 01-11 (Same as: l 13:47: Milk of [place] 00 Magnesia, MOM) sodium 2017- No 1,000 mL, Memori a chloride 01-11 Rate: 75 l 0.45% 1000 13:47: ml/hr, Guillermina nn ml INJ 00 Infuse 1,000 mL over: 13.3 hr, Route: IV, Dosing Weight 111.409 kg, Total Volume: 1,000, Start date: 01/11/17 8:47:00 CDT, Duration: 30 day, Stop date: 02/10/17 8:46:00 CDT sodium 2017- No 1,000 mL, Memori a chloride 01-11 Rate: 75 l 0.45% 1000 13:47: ml/hr, Guillermina nn ml INJ 00 Infuse 1,000 mL over: 13.3 hr, Route: IV, Dosing Weight 111.409 kg, Total Volume: 1,000, Start date: 01/11/17 8:47:00 CDT, Duration: 30 day, Stop date: 02/10/17 8:46:00 CDT Tranexamic No Notes: Memor ia Acid 8- (Same As: l 13:47: Cyklokapro [place] 00 n) Temazepam No Notes: Memori a 8- (Same As: l 13:47: Restoril) Fleet Enema No 133 mL, Mem oria 01-11 Route: MD, l 13:47: Drug Form: YG, Dosing Weight 111.409, kg, Daily, PRN as needed for constipati on, Start date: 01/11/17 8:47:00 CDT, Duration: 30 day, Stop date: 02/10/17 8:46:00 CDT Diphenhydra No Notes: Jah jina mine 01-11 (Same as: l 13:47: Benadryl) Magnesium No Notes: Memori a Hydroxide 01-11 (Same as: l 13:47: Milk of [place], MOM) sodium 2017 No 1,000 mL, Memori a chloride 01-11 [...] a 8-08 (Same As: l 13:47: Restoril) [place] 00 Fleet Enema No 133 mL, Mem oria 8-08 Route: MD, l 13:47: Drug Form: [place] 00 YG, Dosing Weight 111.409, kg, Daily, PRN as needed for constipati on, Start date: 01/11/17 8:47:00 CDT, Duration: 30 day, Stop date: 02/10/17 8:46:00 CDT Diphenhydra No Notes: Jah jina mine 8-08 (Same as: l 13:47: Benadryl) [place] Magnesium No Notes: Memori a Hydroxide 8-08 (Same as: l 13:47: Milk of [place] 00 Magnesia, MOM) sodium No 1,000 mL, [...] No 133 mL, Mem oria 8-08 Route: MD, l 13:47: Drug Form: [place] 00 YG, Dosing Weight 111.409, kg, Daily, PRN as needed for constipati on, Start date: 01/11/17 8:47:00 CDT, Duration: 30 day, Stop date: 02/10/17 8:46:00 CDT Diphenhydra No Notes: Jah jina mine 8-08 (Same as: l 13:47: Benadryl) [place] Magnesium No Notes: Memori a Hydroxide 8-08 (Same as: l 13:47: Milk of [place] 00 Magnesia, MOM) sodium No 1,000 mL, [...] (Same As: l 13:47: Restoril) Fleet Enema 2017- No 133 mL, Mem oria 01-11 Route: MD, l 13:47: Drug Form: YG, Dosing Weight [...] (Same As: l 13:47: Restoril) [place] 00 Tranexamic No Notes: Memor ia Acid 8-08 (Same As: l 13:47: Cyklokapro n) Temazepam No Notes: Memori a 8- (Same As: l 13:47: Restoril) [place] Fleet Enema No 133 mL, Mem oria 01-11 Route: MD, l 13:47: Drug Form: [place] 00 YG, Dosing Weight 111.409, kg, Daily, PRN as needed for constipati on, Start date: 01/11/17 8:47:00 CDT, Duration: 30 day, Stop date: 02/10/17 8:46:00 CDT Diphenhydra No Notes: Jah jina mine 01-11 (Same as: l 13:47: Benadryl) [place] Magnesium No Notes: Memori a Hydroxide 01-11 [...] No 133 mL, Mem oria 01-11 Route: MD, l 13:47: Drug Form: [place] YG, Dosing Weight 111.409, kg, Daily, PRN as needed for constipati on, Start date: 01/11/17 8:47:00 CDT, Duration: 30 day, Stop date: 02/10/17 8:46:00 CDT Diphenhydra No Notes: Jah jina mine 01-11 (Same as: l 13:47: Benadryl) [place] Magnesium No Notes: Memori a Hydroxide 01-11 (Same as: l 13:47: Milk of [place] 00 Magnesia, MOM) sodium No 1,000 mL, [...] No 133 mL, Mem oria 808 Route: MD, l 13:47: Drug Form: [place] 00 YG, Dosing Weight 111.409, kg, Daily, [...] No 133 mL, Mem oria 808 Route: MD, l 13:47: Drug Form: [place] 00 YG, Dosing Weight 111.409, kg, Daily, PRN as needed for constipati on, Start date: 01/11/17 8:47:00 CDT, Duration: 30 day, Stop date: 02/10/17 8:46:00 CDT Diphenhydra No Notes: Jah jina mine 8-08 (Same as: l 13:47: Benadryl) [place] Magnesium No Notes: Memori a Hydroxide 8-08 (Same as: l 13:47: Milk of [place] 00 Magnesia, MOM) sodium No 1,000 mL, [...] No 133 mL, Mem oria 808 Route: MD, l 13:47: Drug Form: [place] 00 YG, Dosing Weight 111.409, kg, Daily, PRN as needed for constipati on, Start date: 01/11/17 8:47:00 CDT, Duration: 30 day, Stop date: 02/10/17 8:46:00 CDT Diphenhydra No Notes: Jah jina mine 8-08 (Same as: l 13:47: Benadryl) [place] Magnesium No Notes: Memori a Hydroxide 8-08 [...] Acid 8-08 (Same As: l 13:47: Cyklokapro [place] 00 n) Temazepam No Notes: Memori a 8-08 (Same As: l 13:47: Restoril) [place] 00 Fleet Enema No 133 mL, Mem oria 8-08 Route: MD, l 13:47: Drug Form: [place] 00 YG, [...] Acid 8-08 (Same As: l 13:47: Cyklokapro [place] 00 n) Temazepam No Notes: Memori a 8-08 (Same As: l 13:47: Restoril) [place] 00 Fleet Enema No 133 mL, Mem oria 8-08 Route: MD, l 13:47: Drug Form: [place] 00 YG, Dosing Weight 111.409, kg, Daily, PRN as needed for constipati on, Start date: 01/11/17 8:47:00 CDT, Duration: 30 day, Stop date: 02/10/17 8:46:00 CDT Diphenhydra No Notes: Jah jina mine 8-08 (Same as: l 13:47: Benadryl) [place] 00 Magnesium No Notes: Memori a Hydroxide 8-08 (Same as: l 13:47: Milk of [place] 00 Magnesia, MOM) sodium No 1,000 mL, [...] No 133 mL, Mem oria 808 Route: MD, l 13:47: Drug Form: YG, Dosing Weight 111.409, kg, Daily, PRN as needed for constipati on, Start date: 01/11/17 8:47:00 CDT, Duration: 30 day, Stop date: 02/10/17 8:46:00 CDT Diphenhydra No Notes: Jah jina mine 8-08 (Same as: l 13:47: Benadryl) [place] 00 Magnesium No Notes: Memori a Hydroxide [...] No 133 mL, Mem oria 808 Route: MD, l 13:47: Drug Form: [place] 00 YG, Dosing Weight 111.409, kg, Daily, PRN as needed for constipati on, Start date: 01/11/17 8:47:00 CDT, Duration: 30 day, Stop date: 02/10/17 8:46:00 CDT Diphenhydra No Notes: Jah jina mine 01-11 (Same as: l 13:47: Benadryl) [place] 00 Magnesium No Notes: Memori a Hydroxide 01-11 (Same as: l 13:47: Milk of [place] 00 Magnesia, MOM) sodium No 1,000 mL, [...] No 133 mL, Mem oria 8-08 Route: MD, l 13:47: Drug Form: [place] 00 YG, Dosing Weight 111.409, kg, Daily, [...] No 133 mL, Mem oria 08 Route: MD, l 13:47: Drug Form: [place] 00 YG, Dosing Weight 111.409, kg, Daily, PRN as needed for constipati on, Start date: 01/11/17 8:47:00 CDT, Duration: 30 day, Stop date: 02/10/17 8:46:00 CDT Diphenhydra No Notes: Jah jina mine 8-08 (Same as: l 13:47: Benadryl) [place] 00 Magnesium No Notes: Memori a Hydroxide 8-08 (Same as: l 13:47: Milk of [place] 00 Magnesia, MOM) sodium 2017 No 1,000 [...] in l Human 13:46: palms of [place] hands gently; Do not shake vigorously . [...] 01-11 (Same as: l / 13:46: Duoneb) [place] Ipratropium 00 [place] 0.167 MG/ML Inhalant Solution [DuoNeb] Phenylephri No Notes: Jah jina ne 01-11 Same as: l 13:46: Yassine-Syneph [place] rine Acetazolami No Notes: Jah jina de 01-11 (Same as: l 13:46: Diamox) [place] 00 ANES No Notes: Memoria albuterol 01-11 [...] Memori a 01-11 final l 13:46: concentrat [place] 00 ion 5 mg/mL Dexamethaso No Notes: Jah jina ne 01-11 Concentrat l 13:46: ion: [place] 00 4mg/ml Hydromorpho No Notes: Jah jina ne 01-11 Same as l 13:46: Dilaudid [place] 00 Oxycodone No Notes: Memori a 01-11 (Same as: l 13:46: Roxicodone [place] 00 ) Morphine No Notes: Memoria 01-11 (Same l 13:46: as:MORPhin [place] 00 e Sulfate) Metoprolol No Notes: Memor ia 01-11 (Same as: l 13:46: Lopressor) [place] 00 Push over 2 minutes Acetaminoph No Notes: Max Memoria en 01-11 acetaminop l 13:46: hen 4000 [place] 00 mg/day (4 gm/day). (Same as: Tylenol Extra Strength) Labetalol No Notes: Memori a 01-11 (Same as: l 13:46: Normodyne, [place] 00 Trandate) Push over 2 minutes Give bolus over 2-3 minutes. Ibuprofen No Notes: Memori a 01-11 (Same as: l 13:46: Motrin) "Do Not Crush" Take with food. Hydralazine No Notes: Jah jina 01-11 (Same as: l 13:46: Apresoline [place] 00 ) Push over 5 minutes Calcium [...] Scopolamine 01-11 Change l 0.0139 13:46: patch [place] MG/HR 00 every 72 Transdermal hours Patch [...] 01-11 not give l 13:46: IV push. [place] 00 (Same as: Phenergan) Ondansetron No Notes: [...] as: l / 13:46: Duoneb) Ipratropium 00 [place] 0.167 MG/ML Inhalant Solution [DuoNeb] Phenylephri No [...] Memori a 01-11 NSAID. l 13:46: Please [place] 00 check indication . Not for seizure. (Same As: CeleBREX) Flumazenil No Notes: Memor ia 01-11 (Same as: l 13:46: Romazicon) [place] 00 Ephedrine No Notes: Memori a 01-11 final l 13:46: concentrat [place] 00 ion 5 mg/mL Dexamethaso No Notes: Jah jina ne 01-11 Concentrat l 13:46: ion: [place] 00 4mg/ml Hydromorpho No Notes: Jah jina ne 01-11 Same as l 13:46: Dilaudid [place] 00 Oxycodone No Notes: Memori a 01-11 (Same as: l 13:46: Roxicodone [place] 00 ) Morphine No Notes: Memoria 01-11 [...] a 01-11 (Same as: l 13:46: Normodyne, [place] 00 Trandate) Push over 2 minutes Give [...] Roll in l Human 13:46: palms of [place] 00 hands gently; Do not shake vigorously . (Same as: NovoLOG) "single patient use only" WASTE: F/P - Black; E - Municipal Trash Bin Stable for 28 days at room temperatur e. Expires in days from ____Date 72 HR No Notes: Memoria Scopolamine 01-11 Change l 0.0139 13:46: patch [place] MG/HR 00 every 72 Transdermal hours Patch [...] 01-11 (Same as: l / 13:46: Duoneb) [place] Ipratropium 00 [place] 0.167 MG/ML Inhalant Solution [DuoNeb] Phenylephri No Notes: Jah jina ne 01-11 Same as: l 13:46: Yassine-Syneph [place] 00 rine Acetazolami No Notes: Jah jina de 01-11 (Same as: l 13:46: Diamox) [place] ANES No Notes: Memoria albuterol 01-11 Same as: l 90 mcg/inh 13:46: Ventolin Her lawson inhalation 00 HFA WASTE: aerosol Aerosol - Return to Pharmacy celecoxib No Notes: Memori a 01-11 NSAID. l 13:46: Please [place] 00 check indication . Not for seizure. (Same As: CeleBREX) Flumazenil No Notes: Memor ia 01-11 (Same as: l 13:46: Romazicon) [place] 00 Ephedrine No Notes: Memori a 01-11 final l 13:46: concentrat [place] ion 5 mg/mL Dexamethaso No Notes: Jah jina ne 01-11 Concentrat l 13:46: ion: [place] 00 4mg/ml Hydromorpho No Notes: Jah jina ne 01-11 Same as l 13:46: Dilaudid [place] 00 Oxycodone No Notes: Memori a 01-11 (Same as: l 13:46: Roxicodone [place] 00 ) Morphine No Notes: Memoria 01-11 (Same l 13:46: as:MORPhin [place] 00 e Sulfate) Metoprolol No Notes: Memor ia 01-11 (Same as: l 13:46: Lopressor) [place] 00 Push over 2 minutes Acetaminoph No Notes: Max Memoria en 01-11 acetaminop l 13:46: hen 4000 [place] 00 mg/day (4 gm/day). (Same as: Tylenol [...] Scopolamine 01-11 Change l 0.0139 13:46: patch [place] MG/HR 00 every 72 Transdermal hours Patch (Same as: Transderm- Scop) Midazolam No Notes: Memori a 01-11 (Same as: l 13:46: Versed) MEDICATION WASTE Product Size: 2 mg Product Wasted: ___ mg Naloxone No Notes: Memoria 01-11 Same as l 13:46: Narcan [place] 00 Meperidine No Notes: Memor ia 01-11 (Same as: l 13:46: Demerol) [place] 00 "Use Precaution in Elderly, Seizure disorders, [...] as: l / 13:46: Duoneb) Ipratropium 00 [place] 0.167 MG/ML Inhalant Solution [DuoNeb] Phenylephri No [...] Memori a 01-11 NSAID. l 13:46: Please [place] 00 check indication . Not for seizure. (Same As: CeleBREX) Flumazenil No Notes: Memor ia 01-11 (Same as: l 13:46: Romazicon) Ephedrine No Notes: Memori a 01-11 final l 13:46: concentrat ion 5 mg/mL Dexamethaso No Notes: Jah jian ne 01-11 Concentrat l 13:46: ion: [place] 00 4mg/ml Hydromorpho No Notes: Jah jina ne 01-11 Same as l 13:46: Dilaudid Oxycodone No Notes: Memori a 01-11 (Same as: l 13:46: Roxicodone ) Morphine No Notes: Memoria 01-11 (Same l 13:46: as:MORPhin [place] 00 e Sulfate) Metoprolol No Notes: Memor [...] Scopolamine 01-11 Change l 0.0139 13:46: patch [place] MG/HR 00 every 72 Transdermal hours Patch [...] 01-11 (Same as: l / 13:46: Duoneb) [place] Ipratropium 00 [place] 0.167 MG/ML Inhalant Solution [DuoNeb] Phenylephri No Notes: Jah jina ne 01-11 Same as: l 13:46: Yassine-Syneph [place] 00 rine Acetazolami No Notes: Jah jina de 01-11 (Same as: l 13:46: Diamox) [place] 00 ANES No Notes: Memoria albuterol 01-11 [...] jina ne 01-11 Concentrat l 13:46: ion: [place] 00 4mg/ml Hydromorpho No Notes: Jah jina ne 01-11 Same as l 13:46: Dilaudid [place] 00 Oxycodone No Notes: Memori a 01-11 (Same as: l 13:46: Roxicodone ) Morphine No Notes: Memoria 01-11 (Same l 13:46: as:MORPhin [place] 00 e Sulfate) Metoprolol No Notes: Memor ia 01-11 (Same as: l 13:46: Lopressor) Push over 2 minutes Acetaminoph No Notes: Max Memoria en 01-11 acetaminop l 13:46: hen 4000 [place] 00 mg/day (4 gm/day). (Same as: Tylenol Extra Strength) Labetalol No Notes: Memori a 01-11 (Same as: l 13:46: Normodyne, [place] 00 Trandate) Push over 2 minutes Give bolus over 2-3 minutes. Ibuprofen No Notes: Memori a 01-11 (Same as: l 13:46: Motrin) "Do Not Crush" Take with food. Hydralazine No Notes: Jah jina 01-11 (Same as: l 13:46: Apresoline [place] 00 ) Push over 5 minutes Calcium No 1,000 mL, Memor ia Chloride 01-11 Rate: 125 l 0.0014 13:46: ml/hr, [place] MEQ/ML / 00 Infuse Potassium over: 8 [...] Scopolamine 01-11 Change l 0.0139 13:46: patch [place] MG/HR 00 every 72 Transdermal hours Patch (Same as: Transderm- Scop) Midazolam No Notes: Memori a 01-11 (Same as: l 13:46: Versed) MEDICATION WASTE Product Size: 2 mg Product Wasted: ___ mg Naloxone No Notes: Memoria 01-11 Same as l 13:46: Narcan [place] 00 Meperidine No Notes: Memor ia 01-11 [...] as: l / 13:46: Duoneb) Ipratropium 00 [place] 0.167 MG/ML Inhalant Solution [DuoNeb] Phenylephri No [...] Notes: Memoria 01-11 (Same l 13:46: as:MORPhin [place] 00 e Sulfate) Metoprolol No Notes: Memor ia 01-11 (Same as: l 13:46: Lopressor) Push over 2 minutes Acetaminoph No Notes: Max Memoria en 01-11 acetaminop l 13:46: hen 4000 [place] 00 mg/day (4 gm/day). (Same as: Tylenol [...] 01-11 Rate: 125 l 0.0014 13:46: ml/hr, [place] MEQ/ML / 00 Infuse Potassium over: 8 Chloride hr, Route: 0.004 IV, Dosing MEQ/ML / Weight Sodium 111.409 Chloride kg, Total 0.103 Volume: MEQ/ML / 1,000, Sodium Start Lactate date: 0.028 01/11/17 MEQ/ML 8:46:00 Injectable CDT, Solution Duration: 30 day, Stop date: 02/10/17 8:45:00 CDT Insulin, No Notes: Memoria Aspart, 01-11 Roll in l Human 13:46: palms of [place] 00 hands gently; Do not shake vigorously [...] a 01-11 (Same as: l 13:46: Versed) [place] 00 MEDICATION WASTE Product Size: 2 mg Product Wasted: ___ mg Naloxone No Notes: Memoria 01-11 Same as l 13:46: Narcan [place] 00 Meperidine No Notes: Memor ia 01-11 [...] mine 01-11 (Same as: l 13:46: Benadryl) [place] 00 Albuterol No Notes: SEE Me moria [...] l / 13:46: Duoneb) Kush Ipratropium 00 [place] 0.167 MG/ML Inhalant Solution [DuoNeb] Phenylephri No Notes: Jah jina ne 01-11 Same as: l 13:46: Yassine-Syneph [place] 00 rine Acetazolami No Notes: Jah jina de 01-11 (Same as: l 13:46: Diamox) [place] ANES No Notes: Memoria albuterol 01-11 Same [...] Memori a 01-11 final l 13:46: concentrat [place] 00 ion 5 mg/mL Dexamethaso No Notes: Jah jina ne 01-11 Concentrat l 13:46: ion: [place] 00 4mg/ml Hydromorpho No Notes: Jah jina ne 01-11 Same as l 13:46: Dilaudid [place] 00 Oxycodone No Notes: Memori a 01-11 (Same as: l 13:46: Roxicodone [place] 00 ) Morphine No Notes: Memoria 01-11 (Same l 13:46: as:MORPhin [place] 00 e Sulfate) Metoprolol No Notes: Memor ia 01-11 (Same as: l 13:46: Lopressor) [place] 00 Push over 2 minutes Acetaminoph No Notes: Max Memoria en 01-11 acetaminop l 13:46: hen 4000 [place] 00 mg/day (4 gm/day). (Same as: Tylenol Extra Strength) Labetalol No Notes: Memori a 01-11 (Same as: l 13:46: Normodyne, [place] 00 Trandate) Push over 2 minutes Give [...] Scopolamine 01-11 Change l 0.0139 13:46: patch [place] MG/HR 00 every 72 Transdermal hours Patch [...] ate 01-11 (Same as: l 13:46: Robinul) [place] 00 Atropine No Notes: Mem oria 01-11 MEDICATION l 13:46: WASTE [place] 00 Product Size: 0.4 mg Product Wasted: ___ mg Albuterol No Notes: Memori a 0.833 MG/ML 01-11 (Same as: l / 13:46: Duoneb) Ipratropium 00 [place] 0.167 MG/ML Inhalant Solution [DuoNeb] Phenylephri No Notes: Jah jina ne 01-11 Same as: l 13:46: Yassine-Syneph [place] 00 rine Acetazolami No Notes: Jah jina de 01-11 (Same as: l 13:46: Diamox) [place] 00 ANES No Notes: Memoria albuterol 01-11 [...] Memori a 01-11 final l 13:46: concentrat [place] 00 ion 5 mg/mL Dexamethaso No Notes: Jah jina ne 01-11 Concentrat l 13:46: ion: [place] 00 4mg/ml Hydromorpho No Notes: Jah jina [...] en 01-11 acetaminop l 13:46: hen 4000 [place] 00 mg/day (4 gm/day). (Same as: Tylenol [...] a 01-11 (Same as: l 13:46: Versed) [place] 00 MEDICATION WASTE Product Size: 2 mg Product Wasted: ___ mg Naloxone No Notes: Memoria 01-11 Same as l 13:46: Narcan [place] Meperidine No Notes: Memor ia 01-11 (Same as: l 13:46: Demerol) [place] 00 "Use Precaution in Elderly, Seizure disorders, and Renal impairment " Promethazin No Notes: Do M emoria e 01-11 not give l 13:46: IV push. [place] 00 (Same as: Phenergan) Insulin, No Notes: Ajoria Aspart, 01-11 Roll in l Human 13:46: palms of [place] 00 hands gently; Do not shake vigorously [...] a 01-11 (Same as: l 13:46: Versed) [place] 00 MEDICATION WASTE Product Size: 2 mg [...] as: l / 13:46: Duoneb) Ipratropium 00 [place] 0.167 MG/ML Inhalant Solution [DuoNeb] Phenylephri No Notes: Jah jina ne 01-11 Same as: l 13:46: Yassine-Syneph rine Acetazolami No Notes: Jah jina de 01-11 (Same as: l 13:46: Diamox) [place] 00 ANES No Notes: Memoria albuterol 01-11 Same as: l 90 mcg/inh 13:46: Ventolin Her lawson inhalation 00 HFA WASTE: aerosol Aerosol - Return to Pharmacy celecoxib No Notes: Memori a 01-11 NSAID. l 13:46: Please [place] 00 check indication . Not for seizure. [...] ne 01-11 Same as l 13:46: Dilaudid [place] 00 Oxycodone No Notes: Memori a 01-11 [...] as: l / 13:46: Duoneb) Ipratropium 00 [place] 0.167 MG/ML Inhalant Solution [DuoNeb] Phenylephri No Notes: Jah jina ne 01-11 Same as: l 13:46: Yassine-Syneph rine Acetazolami No Notes: Jah jina de 01-11 (Same as: l 13:46: Diamox) [place] 00 ANES No Notes: Memoria albuterol 01-11 [...] ne 01-11 Same as l 13:46: Dilaudid [place] 00 Insulin, No Notes: Memoria Aspart, 01-11 [...] ate 01-11 (Same as: l 13:46: Robinul) [place] 00 Atropine No Notes: Mem oria 01-11 MEDICATION l 13:46: WASTE [place] 00 Product Size: 0.4 mg Product Wasted: ___ mg Albuterol No Notes: Memori a 0.833 MG/ML 01-11 (Same as: l / 13:46: Duoneb) Ipratropium 00 [place] 0.167 MG/ML Inhalant Solution [DuoNeb] Phenylephri No [...] ia 01-11 (Same as: l 13:46: Romazicon) [place] 00 Ephedrine No Notes: Memori a 01-11 final l 13:46: concentrat [place] 00 ion 5 mg/mL Dexamethaso No Notes: Jah jina ne 01-11 Concentrat l 13:46: ion: [place] 00 4mg/ml Morphine No Notes: Memoria 01-11 (Same l 13:46: as:MORPhin [place] 00 e Sulfate) Hydromorpho No Notes: Jah jina ne 01-11 Same as l 13:46: Dilaudid [place] 00 Oxycodone No Notes: Memori a 01-11 (Same as: l 13:46: Roxicodone ) Morphine No Notes: Memoria 01-11 (Same l 13:46: as:MORPhin [place] 00 e Sulfate) Metoprolol No Notes: Memor ia 01-11 (Same as: l 13:46: Lopressor) [place] 00 Push over 2 minutes Acetaminoph No Notes: Max Memoria en 8-08 acetaminop l 13:46: hen 4000 [place] 00 mg/day (4 gm/day). (Same as: Tylenol Extra Strength) Labetalol No Notes: Memori a 8-08 (Same as: l 13:46: Normodyne, [place] 00 Trandate) Push over 2 minutes Give bolus over 2-3 minutes. Ibuprofen No Notes: Memori a 8-08 (Same as: l 13:46: Motrin) [place] 00 "Do Not Crush" Take with food. Hydralazine No Notes: Jah jina 8-08 (Same as: l 13:46: Apresoline [place] 00 [...] a 8-08 (Same as: l 13:46: Motrin) [place] 00 "Do Not Crush" Take with food. Hydralazine No Notes: Jah jina 8-08 (Same as: l 13:46: Apresoline [place] 00 ) Push over 5 minutes Calcium No 1,000 mL, Memor ia Chloride 01-11 Rate: 125 l 0.0014 13:46: ml/hr, [place] MEQ/ML / 00 Infuse Potassium over: 8 [...] ate 01-11 (Same as: l 13:46: Robinul) [place] 00 Atropine No Notes: Mem oria 01-11 MEDICATION l 13:46: WASTE [place] 00 Product Size: 0.4 mg Product Wasted: ___ mg Albuterol No Notes: Memori a 0.833 MG/ML 01-11 (Same as: l / 13:46: Duoneb) Ipratropium 00 [place] 0.167 MG/ML Inhalant Solution [DuoNeb] Phenylephri No Notes: Jah jina ne 01-11 Same as: l 13:46: Yassine-Syneph [place] 00 rine Acetazolami No Notes: Jah jina de 01-11 (Same as: l 13:46: Diamox) [place] 00 ANES No Notes: Memoria albuterol 01-11 [...] Memori a 01-11 final l 13:46: concentrat [place] 00 ion 5 mg/mL Dexamethaso No Notes: Jah jina ne 01-11 Concentrat l 13:46: ion: [place] 00 4mg/ml Hydromorpho No Notes: Jah jina [...] en 01-11 acetaminop l 13:46: hen 4000 [place] 00 mg/day (4 gm/day). (Same as: Tylenol [...] Scopolamine 01-11 Change l 0.0139 13:46: patch [place] MG/HR 00 every 72 Transdermal hours Patch (Same as: Transderm- Scop) Midazolam No Notes: Memori a 01-11 (Same as: l 13:46: Versed) [place] 00 MEDICATION WASTE Product Size: 2 mg Product Wasted: ___ mg Naloxone No Notes: Memoria 01-11 Same as l 13:46: Narcan [place] 00 Meperidine No Notes: Memor ia 01-11 (Same as: l 13:46: Demerol) "Use Precaution in Elderly, Seizure disorders, and Renal impairment " Promethazin No Notes: Do M emoria e 01-11 not give l 13:46: IV push. [place] 00 (Same as: Phenergan) Ondansetron No Notes: [...] ate 01-11 (Same as: l 13:46: Robinul) [place] 00 Atropine No Notes: Mem oria 01-11 MEDICATION l 13:46: WASTE [place] 00 Product Size: 0.4 mg Product Wasted: ___ mg Albuterol No Notes: Memori a 0.833 MG/ML 01-11 (Same as: l / 13:46: Duoneb) [place] Ipratropium 00 [place] 0.167 MG/ML Inhalant Solution [DuoNeb] Phenylephri No Notes: Jah jina ne 01-11 Same as: l 13:46: Yassine-Syneph [place] 00 rine Acetazolami No Notes: Jah jina de 8-08 (Same as: l 13:46: Diamox) [place] 00 ANES No Notes: Memoria albuterol 01-11 Same as: l 90 mcg/inh 13:46: Ventolin Her law[place] inhalation 00 HFA WASTE: aerosol Aerosol - Return to Pharmacy celecoxib No Notes: Memori a 01-11 NSAID. l 13:46: Please [place] 00 check indication . Not for seizure. [...] a 01-11 (Same as: l 13:46: Roxicodone [place] 00 ) Morphine No Notes: Memoria 01-11 (Same l 13:46: as:MORPhin [place] 00 e Sulfate) Metoprolol No Notes: Memor [...] 01-11 Rate: 125 l 0.0014 13:46: ml/hr, [place] MEQ/ML / 00 Infuse Potassium over: 8 Chloride hr, Route: 0.004 IV, Dosing MEQ/ML / Weight Sodium 111.409 Chloride kg, Total 0.103 Volume: MEQ/ML / 1,000, Sodium Start Lactate date: 0.028 01/11/17 MEQ/ML 8:46:00 Injectable CDT, Solution Duration: 30 day, Stop date: 02/10/17 8:45:00 CDT Insulin, No Notes: Memoria Aspart, 01-11 Roll in l Human 13:46: palms of [place] 00 hands gently; Do not shake vigorously [...] Memoria 01-11 Same as l 13:46: Narcan [place] 00 Meperidine No Notes: Memor ia 01-11 [...] as: l / 13:46: Duoneb) Ipratropium 00 [place] 0.167 MG/ML Inhalant Solution [DuoNeb] Phenylephri No [...] Memori a 01-11 NSAID. l 13:46: Please [place] 00 check indication . Not for seizure. [...] Notes: Memoria 01-11 (Same l 13:46: as:MORPhin [place] 00 e Sulfate) Metoprolol No Notes: Memor ia 01-11 (Same as: l 13:46: Lopressor) [place] 00 Push over 2 minutes Acetaminoph No Notes: Max Memoria en 01-11 acetaminop l 13:46: hen 4000 [place] 00 mg/day (4 gm/day). (Same as: Tylenol Extra Strength) Labetalol No Notes: Memori a 01-11 (Same as: l 13:46: Normodyne, [place] 00 Trandate) Push over 2 minutes Give bolus over 2-3 minutes. Ibuprofen No Notes: Memori a 01-11 (Same as: l 13:46: Motrin) [place] 00 "Do Not Crush" Take with food. Hydralazine No Notes: Jah jina 01-11 (Same as: l 13:46: Apresoline [place] 00 ) Push over 5 minutes Calcium No 1,000 mL, Memor ia Chloride 01-11 Rate: 125 l 0.0014 13:46: ml/hr, [place] MEQ/ML / 00 Infuse Potassium over: 8 Chloride hr, Route: 0.004 IV, Dosing MEQ/ML / Weight Sodium 111.409 Chloride kg, Total 0.103 Volume: MEQ/ML / 1,000, Sodium Start Lactate date: 0.028 01/11/17 MEQ/ML 8:46:00 Injectable CDT, Solution Duration: 30 day, Stop date: 02/10/17 8:45:00 CDT Insulin, No Notes: Memoria Aspart, 01-11 Roll in l Human 13:46: palms of [place] 00 hands gently; Do not shake vigorously . (Same as: NovoLOG) "single patient use only" WASTE: F/P - Black; E - Municipal Trash Bin Stable for 28 days at room temperatur e. Expires in days from ____Date 72 HR No Notes: Memoria Scopolamine 01-11 Change l 0.0139 13:46: patch [place] MG/HR 00 every 72 Transdermal hours Patch [...] as: l / 13:46: Duoneb) Ipratropium 00 [place] 0.167 MG/ML Inhalant Solution [DuoNeb] Phenylephri No [...] Memori a 01-11 NSAID. l 13:46: Please [place] 00 check indication . Not for seizure. (Same As: CeleBREX) Flumazenil No Notes: Memor ia 01-11 (Same as: l 13:46: Romazicon) [place] Ephedrine No Notes: Memori a 01-11 final l 13:46: concentrat [place] 00 ion 5 mg/mL Dexamethaso No Notes: Jah jina ne 01-11 Concentrat l 13:46: ion: [place] 00 4mg/ml Hydromorpho No Notes: Jah jina ne 01-11 Same as l 13:46: Dilaudid [place] 00 Oxycodone No Notes: Memori a 01-11 (Same as: l 13:46: Roxicodone [place] 00 ) Morphine No Notes: Memoria 01-11 (Same l 13:46: as:MORPhin [place] 00 e Sulfate) Metoprolol No Notes: Memor ia 01-11 (Same as: l 13:46: Lopressor) [place] 00 Push over 2 minutes Acetaminoph No Notes: Max Memoria en 01-11 acetaminop l 13:46: hen 4000 [place] 00 mg/day (4 gm/day). (Same as: Tylenol Extra Strength) Labetalol No Notes: Memori a 01-11 (Same as: l 13:46: Normodyne, [place] 00 Trandate) Push over 2 minutes Give bolus over 2-3 minutes. Ibuprofen No Notes: Memori a 01-11 (Same as: l 13:46: Motrin) [place] 00 "Do Not Crush" Take with food. Hydralazine No Notes: Jah jina 01-11 (Same as: l 13:46: Apresoline [place] 00 ) Push over 5 minutes Calcium No 1,000 mL, Memor ia Chloride 01-11 Rate: 125 l 0.0014 13:46: ml/hr, [place] MEQ/ML / 00 Infuse Potassium over: 8 Chloride hr, Route: 0.004 IV, Dosing MEQ/ML / Weight Sodium 111.409 Chloride kg, Total 0.103 Volume: MEQ/ML / 1,000, Sodium Start Lactate date: 0.028 01/11/17 MEQ/ML 8:46:00 Injectable CDT, Solution Duration: 30 day, Stop date: 02/10/17 8:45:00 CDT Insulin, No Notes: Memoria Aspart, 01-11 Roll in l Human 13:46: palms of [place] 00 hands gently; Do not shake vigorously . (Same as: NovoLOG) "single patient use only" WASTE: F/P - Black; E - Municipal Trash Bin Stable for 28 days at room temperatur e. Expires in days from ____Date 72 HR No Notes: Memoria Scopolamine 01-11 Change l 0.0139 13:46: patch [place] MG/HR 00 every 72 Transdermal hours Patch [...] ate 01-11 (Same as: l 13:46: Robinul) [place] 00 Atropine No Notes: Mem oria 01-11 MEDICATION l 13:46: WASTE [place] 00 Product Size: 0.4 mg Product Wasted: ___ mg Albuterol No Notes: Memori a 0.833 MG/ML 01-11 (Same as: l / 13:46: Duoneb) Ipratropium 00 [place] 0.167 MG/ML Inhalant Solution [DuoNeb] Phenylephri No Notes: Jah jina ne 01-11 Same as: l 13:46: Yassine-Syneph [place] 00 rine Acetazolami No Notes: Jah jina de 01-11 (Same as: l 13:46: Diamox) [place] 00 ANES No Notes: Memoria albuterol 01-11 Same as: l 90 mcg/inh 13:46: Ventolin Her [facility] inhalation 00 HFA WASTE: aerosol Aerosol - Return to Pharmacy celecoxib No Notes: Memori a 01-11 NSAID. l 13:46: Please [place] 00 check indication . Not for seizure. (Same As: CeleBREX) Flumazenil No Notes: Memor ia 01-11 (Same as: l 13:46: Romazicon) Ephedrine No Notes: Memori a 01-11 final l 13:46: concentrat [place] 00 ion 5 mg/mL Dexamethaso No Notes: Jah jina ne 01-11 Concentrat l 13:46: ion: [place] 00 4mg/ml Hydromorpho No Notes: Jah jina [...] en 01-11 acetaminop l 13:46: hen 4000 [place] 00 mg/day (4 gm/day). (Same as: Tylenol Extra Strength) Labetalol No Notes: Memori a 01-11 (Same as: l 13:46: Normodyne, [place] 00 Trandate) Push over 2 minutes Give bolus over 2-3 minutes. Ibuprofen No Notes: Memori a 01-11 (Same as: l 13:46: Motrin) [place] 00 "Do Not Crush" Take with food. [...] a 01-11 (Same as: l 13:46: Versed) [place] 00 MEDICATION WASTE Product Size: 2 mg [...] as: l / 13:46: Duoneb) Ipratropium 00 [place] 0.167 MG/ML Inhalant Solution [DuoNeb] Phenylephri No [...] Memori a 01-11 NSAID. l 13:46: Please [place] 00 check indication . Not for seizure. (Same As: CeleBREX) Flumazenil No Notes: Memor ia 01-11 (Same as: l 13:46: Romazicon) [place] Ephedrine No Notes: Memori a 01-11 final l 13:46: concentrat [place] 00 ion 5 mg/mL Dexamethaso No Notes: Jah jina ne 01-11 Concentrat l 13:46: ion: [place] 00 4mg/ml Hydromorpho No Notes: Jah jina ne 01-11 Same as l 13:46: Dilaudid [place] 00 Oxycodone No Notes: Memori a 01-11 (Same as: l 13:46: Roxicodone [place] 00 ) Morphine No Notes: Memoria 01-11 (Same l 13:46: as:MORPhin [place] 00 e Sulfate) Metoprolol No Notes: Memor ia 01-11 (Same as: l 13:46: Lopressor) [place] 00 Push over 2 minutes Acetaminoph No Notes: Max Memoria en 01-11 acetaminop l 13:46: hen 4000 [place] 00 mg/day (4 gm/day). (Same as: Tylenol Extra Strength) Labetalol No Notes: Memori a 01-11 (Same as: l 13:46: Normodyne, [place] 00 Trandate) Push over 2 minutes Give bolus over 2-3 minutes. Ibuprofen No Notes: Memori a 01-11 (Same as: l 13:46: Motrin) [place] "Do Not Crush" Take with food. Hydralazine No Notes: Jah jina 01-11 (Same as: l 13:46: Apresoline [place] ) Push over 5 minutes Calcium No 1,000 mL, Memor ia Chloride 01-11 Rate: 125 l 0.0014 13:46: ml/hr, [place] MEQ/ML / 00 Infuse Potassium over: 8 [...] Scopolamine 01-11 Change l 0.0139 13:46: patch [place] MG/HR 00 every 72 Transdermal hours Patch (Same as: Transderm- Scop) Midazolam No Notes: Memori a 01-11 (Same as: l 13:46: Versed) [place] 00 MEDICATION WASTE Product Size: 2 mg Product Wasted: ___ mg Naloxone No Notes: Memoria 01-11 Same as l 13:46: Narcan Meperidine No Notes: Memor ia 01-11 (Same as: l 13:46: Demerol) [place] 00 "Use Precaution in Elderly, Seizure disorders, [...] ate 01-11 (Same as: l 13:46: Robinul) [place] 00 Atropine No Notes: Mem oria 01-11 MEDICATION l 13:46: WASTE [place] 00 Product Size: 0.4 mg Product Wasted: ___ mg Albuterol No Notes: Memori a 0.833 MG/ML 01-11 (Same as: l / 13:46: Duoneb) Ipratropium 00 [place] 0.167 MG/ML Inhalant Solution [DuoNeb] Phenylephri No Notes: Jah jina ne 01-11 Same as: l 13:46: Yassine-Syneph [place] 00 rine Acetazolami No Notes: Jah jina [...] jina ne 01-11 Concentrat l 13:46: ion: [place] 00 4mg/ml Hydromorpho No Notes: Jah jina ne 01-11 Same as l 13:46: Dilaudid [place] 00 Oxycodone No Notes: Memori a 01-11 (Same as: l 13:46: Roxicodone ) Morphine No Notes: Memoria 01-11 (Same l 13:46: as:MORPhin [place] 00 e Sulfate) Metoprolol No Notes: Memor ia 01-11 (Same as: l 13:46: Lopressor) Push over 2 minutes Acetaminoph No Notes: Max Memoria en 01-11 acetaminop l 13:46: hen 4000 [place] 00 mg/day (4 gm/day). (Same as: Tylenol Extra Strength) Labetalol No Notes: Memori a 01-11 (Same as: l 13:46: Normodyne, [place] 00 Trandate) Push over 2 minutes Give bolus over 2-3 minutes. Ibuprofen No Notes: Memori a 01-11 (Same as: l 13:46: Motrin) [place] "Do Not Crush" Take with food. Hydralazine No Notes: Jah jina 01-11 (Same as: l 13:46: Apresoline [place] ) Push over 5 minutes Calcium No 1,000 mL, Memor ia Chloride 01-11 Rate: 125 l 0.0014 13:46: ml/hr, [place] MEQ/ML / 00 Infuse Potassium over: 8 [...] Scopolamine 01-11 Change l 0.0139 13:46: patch [place] MG/HR 00 every 72 Transdermal hours Patch [...] as: l / 13:46: Duoneb) Ipratropium 00 [place] 0.167 MG/ML Inhalant Solution [DuoNeb] Phenylephri No [...] Notes: Memoria 01-11 (Same l 13:46: as:MORPhin [place] 00 e Sulfate) Metoprolol No Notes: Memor ia 01-11 (Same as: l 13:46: Lopressor) Push over 2 minutes Acetaminoph No Notes: Max Memoria en 01-11 acetaminop l 13:46: hen 4000 [place] 00 mg/day (4 gm/day). (Same as: Tylenol Extra Strength) Labetalol No Notes: Memori a 01-11 (Same as: l 13:46: Normodyne, [place] 00 Trandate) Push over 2 minutes Give [...] MEQ/ML / 1,000, Sodium Start Lactate date: 0028 01/11/17 MEQ/ML 8:46:00 Injectable CDT, Solution Duration: [...] mine 01-11 (Same as: l 13:46: Benadryl) Insulin, No Notes: Memoria Aspart, 01-11 Roll in l Human 13:46: palms of [place] 00 hands gently; Do not shake vigorously . (Same as: NovoLOG) "single patient use only" WASTE: F/P - Black; E - Municipal Trash Bin Stable for 28 days at room temperatur e. Expires in days from ____Date 72 HR No Notes: Memoria Scopolamine 01-11 Change l 0.0139 13:46: patch [place] MG/HR 00 every 72 Transdermal hours Patch [...] l / 13:46: Duoneb) [place] Ipratropium 00 [place] 0.167 MG/ML Inhalant Solution [DuoNeb] Phenylephri No Notes: Jah jina ne 01-11 Same as: l 13:46: Yassine-Syneph [place] 00 rine Acetazolami No Notes: Jah jina de 01-11 (Same as: l 13:46: Diamox) [place] ANES No Notes: Memoria albuterol 01-11 Same as: l 90 mcg/inh 13:46: Ventolin Her [facility] inhalation 00 HFA WASTE: aerosol Aerosol - Return to Pharmacy celecoxib No Notes: Memori a 01-11 NSAID. l 13:46: Please [place] check indication . Not for seizure. (Same As: CeleBREX) Glycopyrrol No Notes: Jah jina ate 01-11 (Same as: l 13:46: Robinul) [place] 00 Flumazenil No Notes: Memor ia 01-11 (Same as: l 13:46: Romazicon) [place] 00 Ephedrine No Notes: Memori a 01-11 final l 13:46: concentrat [place] 00 ion 5 mg/mL Dexamethaso No Notes: Jah jina ne 01-11 Concentrat l 13:46: ion: [place] 00 4mg/ml Hydromorpho No Notes: Jah jina ne 01-11 Same as l 13:46: Dilaudid [place] 00 Oxycodone No Notes: Memori a 01-11 (Same as: l 13:46: Roxicodone [place] 00 ) Morphine No Notes: Memoria 01-11 (Same l 13:46: as:MORPhin [place] 00 e Sulfate) Metoprolol No Notes: Memor ia 01-11 (Same as: l 13:46: Lopressor) [place] 00 Push over 2 minutes Acetaminoph No Notes: Max Memoria en 01-11 acetaminop l 13:46: hen 4000 [place] 00 mg/day (4 gm/day). (Same as: Tylenol Extra Strength) Labetalol No Notes: Memori a 01-11 (Same as: l 13:46: Normodyne, [place] Trandate) Push over 2 minutes Give bolus over 2-3 minutes. Ibuprofen No Notes: Memori a 01-11 (Same as: l 13:46: Motrin) [place] 00 "Do Not Crush" Take with food. [...] as: l / 13:46: Duoneb) Ipratropium 00 [place] 0.167 MG/ML Inhalant Solution [DuoNeb] Phenylephri No Notes: Jah jina ne 01-11 Same as: l 13:46: Yassine-Syneph [place] 00 rine Acetazolami No Notes: Jah jina de 01-11 (Same as: l 13:46: Diamox) [place] 00 ANES No Notes: Memoria albuterol 01-11 [...] ne 01-11 Same as l 13:46: Dilaudid [place] 00 Oxycodone No Notes: Memori a 01-11 (Same as: l 13:46: Roxicodone ) Morphine No Notes: Memoria 01-11 (Same l 13:46: as:MORPhin e Sulfate) Insulin, No Notes: Memoria Aspart, [...] as: Phenergan) Ondansetron No Notes: Jah jina 8-08 (Same as: l 13:46: Zofran) MEDICATION WASTE [...] as: l / 13:46: Duoneb) Ipratropium 00 [place] 0.167 MG/ML Inhalant Solution [DuoNeb] Phenylephri No [...] Memori a 01-11 NSAID. l 13:46: Please [place] 00 check indication . Not for seizure. (Same As: CeleBREX) Flumazenil No Notes: Memor ia 01-11 (Same as: l 13:46: Romazicon) Ephedrine No Notes: Memori a 01-11 final l 13:46: concentrat [place] 00 ion 5 mg/mL Dexamethaso No Notes: Jah jina ne 01-11 Concentrat l 13:46: ion: [place] 00 4mg/ml Acetaminoph No Notes: Max Memoria en 8-08 acetaminop l 13:46: hen 4000 [place] 00 mg/day (4 gm/day). (Same as: Tylenol Extra Strength) Hydromorpho No Notes: Jah jina ne 01-11 Same as l 13:46: Dilaudid [place] 00 Oxycodone No Notes: Memori a 01-11 (Same as: l 13:46: Roxicodone [place] 00 ) Morphine No Notes: Memoria 01-11 (Same l 13:46: as:MORPhin [place] 00 e Sulfate) Metoprolol No Notes: Memor ia 01-11 (Same as: l 13:46: Lopressor) [place] 00 Push over 2 minutes Acetaminoph No Notes: Max Memoria en 01-11 acetaminop l 13:46: hen 4000 [place] 00 mg/day (4 gm/day). (Same as: Tylenol Extra Strength) Labetalol No Notes: Memori a 01-11 (Same as: l 13:46: Normodyne, [place] 00 Trandate) Push over 2 minutes Give bolus over 2-3 minutes. Ibuprofen No Notes: Memori a 01-11 (Same as: l 13:46: Motrin) [place] 00 "Do Not Crush" Take with food. Hydralazine No Notes: Jah jina 01-11 (Same as: l 13:46: Apresoline [place] 00 ) Push over 5 minutes Calcium No 1,000 mL, Memor ia Chloride 01-11 Rate: 125 l 0.0014 13:46: ml/hr, [place] MEQ/ML / 00 Infuse Potassium over: 8 [...] 01-11 Rate: 125 l 0.0014 13:46: ml/hr, [place] MEQ/ML / 00 Infuse Potassium over: 8 [...] Scopolamine 01-11 Change l 0.0139 13:46: patch [place] MG/HR 00 every 72 Transdermal hours Patch [...] as: l / 13:46: Duoneb) Ipratropium 00 [place] 0.167 MG/ML Inhalant Solution [DuoNeb] Phenylephri No [...] jina ne 01-11 Concentrat l 13:46: ion: [place] 00 4mg/ml Hydromorpho No Notes: Jah jina [...] en 01-11 acetaminop l 13:46: hen 4000 [place] 00 mg/day (4 gm/day). (Same as: Tylenol [...] Roll in l Human 13:46: palms of [place] 00 hands gently; Do not shake vigorously [...] 01-11 (Same as: l / 13:46: Duoneb) [place] Ipratropium 00 [place] 0.167 MG/ML Inhalant Solution [DuoNeb] Phenylephri No [...] ia 01-11 (Same as: l 13:46: Romazicon) [place] 00 Ephedrine No Notes: Memori a 01-11 final l 13:46: concentrat [place] 00 ion 5 mg/mL Dexamethaso No Notes: Jah jina ne 01-11 Concentrat l 13:46: ion: [place] 00 4mg/ml Hydromorpho No Notes: Jah jina ne 01-11 Same as l 13:46: Dilaudid [place] 00 Oxycodone No Notes: Memori a 01-11 (Same as: l 13:46: Roxicodone [place] 00 ) Morphine No Notes: Memoria 01-11 (Same l 13:46: as:MORPhin [place] 00 e Sulfate) Metoprolol No Notes: Memor ia 01-11 (Same as: l 13:46: Lopressor) Push over 2 minutes Acetaminoph No Notes: Max Memoria en 01-11 acetaminop l 13:46: hen 4000 [place] 00 mg/day (4 gm/day). (Same as: Tylenol Extra Strength) Labetalol No Notes: Memori a 01-11 (Same as: l 13:46: Normodyne, [place] 00 Trandate) Push over 2 minutes Give bolus over 2-3 minutes. Ibuprofen No Notes: Memori a 01-11 (Same as: l 13:46: Motrin) "Do Not Crush" Take with food. Hydralazine No Notes: Jah jina 01-11 (Same as: l 13:46: Apresoline [place] 00 ) Push over 5 minutes Calcium [...] Memoria 01-11 Same as l 13:46: Narcan [place] 00 Meperidine No Notes: Memor ia 01-11 [...] as: l / 13:46: Duoneb) Ipratropium 00 [place] 0.167 MG/ML Inhalant Solution [DuoNeb] Phenylephri No [...] Memori a 01-11 NSAID. l 13:46: Please [place] 00 check indication . Not for seizure. (Same As: CeleBREX) Flumazenil No Notes: Memor ia 01-11 (Same as: l 13:46: Romazicon) Ephedrine No Notes: Memori a 01-11 final l 13:46: concentrat ion 5 mg/mL Dexamethaso No Notes: Jah jina ne 01-11 Concentrat l 13:46: ion: [place] 00 4mg/ml Hydromorpho No Notes: Jah jina ne 01-11 Same as l 13:46: Dilaudid Oxycodone No Notes: Memori a 01-11 (Same as: l 13:46: Roxicodone ) Morphine No Notes: Memoria 01-11 (Same l 13:46: as:MORPhin [place] 00 e Sulfate) Metoprolol No Notes: Memor [...] Roll in l Human 13:46: palms of [place] 00 hands gently; Do not shake vigorously . (Same as: NovoLOG) "single patient use only" WASTE: F/P - Black; E - Municipal Trash Bin Stable for 28 days at room temperatur e. Expires in days from ____Date 72 HR No Notes: Memoria Scopolamine 01-11 Change l 0.0139 13:46: patch [place] MG/HR 00 every 72 Transdermal hours Patch [...] l / 13:46: Duoneb) Kush Ipratropium 00 [place] 0.167 MG/ML Inhalant Solution [DuoNeb] Phenylephri No Notes: Jah jina ne 01-11 Same as: l 13:46: Yassine-Syneph [place] 00 rine Acetazolami No Notes: Jah jina de 01-11 (Same as: l 13:46: Diamox) Kush ANES No Notes: Memoria albuterol 01-11 Same as: l 90 mcg/inh 13:46: Ventolin Her lawson inhalation 00 HFA WASTE: aerosol Aerosol - Return to Pharmacy celecoxib No Notes: Memori a 01-11 NSAID. l 13:46: Please [place] 00 check indication . Not for seizure. (Same As: CeleBREX) Flumazenil No Notes: Memor ia 01-11 (Same as: l 13:46: Romazicon) Ephedrine No Notes: Memori a 01-11 final l 13:46: concentrat [place] 00 ion 5 mg/mL Dexamethaso No Notes: Jah jina ne 01-11 Concentrat l 13:46: ion: [place] 00 4mg/ml Hydromorpho No Notes: Jah jina ne 01-11 Same as l 13:46: Dilaudid [place] 00 Oxycodone No Notes: Memori a 01-11 (Same as: l 13:46: Roxicodone ) Morphine No Notes: Memoria 01-11 (Same l 13:46: as:MORPhin [place] 00 e Sulfate) Metoprolol No Notes: Memor [...] a 01-11 (Same as: l 13:46: Motrin) [place] 00 "Do Not Crush" Take with food. [...] as: l / 13:46: Duoneb) Ipratropium 00 [place] 0.167 MG/ML Inhalant Solution [DuoNeb] Phenylephri No [...] ia 01-11 (Same as: l 13:46: Romazicon) [place] Ephedrine No Notes: Memori a 01-11 final l 13:46: concentrat [place] 00 ion 5 mg/mL Dexamethaso No Notes: Jah jina ne 01-11 Concentrat l 13:46: ion: [place] 00 4mg/ml Hydromorpho No Notes: Jah jina ne 01-11 Same as l 13:46: Dilaudid [place] 00 Oxycodone No Notes: Memori a 01-11 (Same as: l 13:46: Roxicodone [place] 00 ) Morphine No Notes: Memoria 01-11 (Same l 13:46: as:MORPhin [place] 00 e Sulfate) Metoprolol No Notes: Memor ia 01-11 (Same as: l 13:46: Lopressor) [place] 00 Push over 2 minutes Acetaminoph No Notes: Max Memoria en 01-11 acetaminop l 13:46: hen 4000 [place] 00 mg/day (4 gm/day). (Same as: Tylenol Extra Strength) Labetalol No Notes: Memori a 01-11 (Same as: l 13:46: Normodyne, [place] 00 Trandate) Push over 2 minutes Give bolus over 2-3 minutes. Ibuprofen No Notes: Memori a 01-11 (Same as: l 13:46: Motrin) [place] 00 "Do Not Crush" Take with food. Hydralazine No Notes: Jah jina 01-11 (Same as: l 13:46: Apresoline [place] 00 ) Push over 5 minutes Calcium No 1,000 mL, Memor ia Chloride 01-11 Rate: 125 l 0.0014 13:46: ml/hr, [place] MEQ/ML / 00 Infuse Potassium over: 8 Chloride hr, Route: 0.004 IV, Dosing MEQ/ML / Weight Sodium 111.409 Chloride kg, Total 0.103 Volume: MEQ/ML / 1,000, Sodium Start Lactate date: 0.028 01/11/17 MEQ/ML 8:46:00 Injectable CDT, Solution Duration: 30 day, Stop date: 02/10/17 8:45:00 CDT Midazolam No Notes: Memori a 01-11 (Same as: l 13:46: Versed) [place] 00 MEDICATION WASTE Product Size: 2 mg [...] Scopolamine 01-11 Change l 0.0139 13:46: patch [place] MG/HR 00 every 72 Transdermal hours Patch (Same as: Transderm- Scop) Midazolam No Notes: Memori a 01-11 (Same as: l 13:46: Versed) [place] 00 MEDICATION WASTE Product Size: 2 mg Product Wasted: ___ mg Naloxone No Notes: Memoria 01-11 Same as l 13:46: Narcan [place] 00 Meperidine No Notes: Memor ia 01-11 (Same as: l 13:46: Demerol) "Use Precaution in Elderly, Seizure disorders, and Renal impairment " Promethazin No Notes: Do M emoria e 01-11 not give l 13:46: IV push. [place] 00 (Same as: Phenergan) Ondansetron No Notes: [...] ate 01-11 (Same as: l 13:46: Robinul) [place] 00 Atropine No Notes: Mem oria 01-11 MEDICATION l 13:46: WASTE [place] 00 Product Size: 0.4 mg Product Wasted: ___ mg Albuterol No Notes: Memori a 0.833 MG/ML 01-11 (Same as: l / 13:46: Duoneb) Ipratropium 00 [place] 0.167 MG/ML Inhalant Solution [DuoNeb] Phenylephri No Notes: Jah jina ne 01-11 Same as: l 13:46: Yassine-Syneph [place] 00 rine Acetazolami No Notes: Jah jina de 01-11 (Same as: l 13:46: Diamox) [place] 00 ANES No Notes: Memoria albuterol 01-11 Same as: l 90 mcg/inh 13:46: Ventolin Her [place] inhalation 00 HFA WASTE: aerosol Aerosol - Return to Pharmacy celecoxib No Notes: Memori a 01-11 NSAID. l 13:46: Please [place] 00 check indication . Not for seizure. (Same As: CeleBREX) Flumazenil No Notes: Memor ia 01-11 (Same as: l 13:46: Romazicon) [place] 00 Ephedrine No Notes: Memori a 01-11 final l 13:46: concentrat [place] 00 ion 5 mg/mL Dexamethaso No Notes: Jah jina ne 01-11 Concentrat l 13:46: ion: [place] 00 4mg/ml Hydromorpho No Notes: Jah jina [...] en 01-11 acetaminop l 13:46: hen 4000 [place] 00 mg/day (4 gm/day). (Same as: Tylenol [...] 01-11 Rate: 125 l 0.0014 13:46: ml/hr, MEQ/ML / 00 Infuse Potassium over: 8 [...] as: l / 13:46: Duoneb) Ipratropium 00 [place] 0.167 MG/ML Inhalant Solution [DuoNeb] Phenylephri No Notes: Jah jina ne 01-11 Same as: l 13:46: Yassine-Syneph [place] 00 rine Acetazolami No Notes: Jah jina de 01-11 (Same as: l 13:46: Diamox) [place] 00 ANES No Notes: Memoria albuterol 01-11 Same as: l 90 mcg/inh 13:46: Ventolin Her [place] inhalation 00 HFA WASTE: aerosol Aerosol - Return to Pharmacy celecoxib No Notes: Memori a 01-11 NSAID. l 13:46: Please [place] check indication . Not for seizure. (Same As: CeleBREX) Flumazenil No Notes: Memor ia 01-11 (Same as: l 13:46: Romazicon) [place] 00 Ephedrine No Notes: Memori a 01-11 final l 13:46: concentrat [place] 00 ion 5 mg/mL Dexamethaso No Notes: Jah jina ne 01-11 Concentrat l 13:46: ion: [place] 00 4mg/ml Hydromorpho No Notes: Jah jina ne 01-11 Same as l 13:46: Dilaudid [place] 00 Oxycodone No Notes: Memori a 01-11 (Same as: l 13:46: Roxicodone ) Morphine No Notes: Memoria 01-11 (Same l 13:46: as:MORPhin [place] 00 e Sulfate) Metoprolol No Notes: Memor ia 01-11 (Same as: l 13:46: Lopressor) Push over 2 minutes Acetaminoph No Notes: Max Memoria en 01-11 acetaminop l 13:46: hen 4000 [place] 00 mg/day (4 gm/day). (Same as: Tylenol Extra Strength) Labetalol No Notes: Memori a 01-11 (Same as: l 13:46: Normodyne, [place] 00 Trandate) Push over 2 minutes Give bolus over 2-3 minutes. Ibuprofen No Notes: Memori a 01-11 (Same as: l 13:46: Motrin) "Do Not Crush" Take with food. Hydralazine No Notes: Jah jina 01-11 (Same as: l 13:46: Apresoline [place] 00 ) Push over 5 minutes Calcium No 1,000 mL, Memor ia Chloride 01-11 Rate: 125 l 0.0014 13:46: ml/hr, [place] MEQ/ML / 00 Infuse Potassium over: 8 [...] Roll in l Human 13:46: palms of [place] 00 hands gently; Do not shake vigorously [...] l 13:46: IV push. (Same as: Phenergan) Naloxone No Notes: Memoria [...] as: l / 13:46: Duoneb) Ipratropium 00 [place] 0.167 MG/ML Inhalant Solution [DuoNeb] Phenylephri No [...] Memori a 01-11 NSAID. l 13:46: Please [place] 00 check indication . Not for seizure. (Same As: CeleBREX) Flumazenil No Notes: Memor ia 01-11 (Same as: l 13:46: Romazicon) Ephedrine No Notes: Memori a 01-11 final l 13:46: concentrat ion 5 mg/mL Dexamethaso No Notes: Jah jina ne 01-11 Concentrat l 13:46: ion: [place] 00 4mg/ml Hydromorpho No Notes: Jah jina [...] a 01-11 (Same as: l 13:46: Versed) [place] 00 MEDICATION WASTE Product Size: 2 mg Product Wasted: ___ mg Naloxone No Notes: Memoria 01-11 Same as l 13:46: Narcan [place] 00 Meperidine No Notes: Memor ia 01-11 [...] (Same as: l 13:46: Robinul) [place] 00 Insulin, No Notes: Memoria Aspart, [...] l 13:46: IV push. (Same as: Phenergan) Atropine No Notes: Mem oria 01-11 MEDICATION l 13:46: WASTE Product Size: 0.4 mg Product Wasted: ___ mg Ondansetron No [...] Mem oria 01-11 MEDICATION l 13:46: WASTE [place] 00 Product Size: 0.4 mg Product Wasted: ___ mg Albuterol No Notes: Memori a 0.833 MG/ML 01-11 (Same as: l / 13:46: Duoneb) [place] Ipratropium 00 [place] 0.167 MG/ML Inhalant Solution [DuoNeb] Phenylephri No [...] Memori a 01-11 NSAID. l 13:46: Please [place] 00 check indication . Not for seizure. (Same As: CeleBREX) Albuterol No Notes: Memori a 0.833 MG/ML 01-11 (Same as: l / 13:46: Duoneb) [place] Ipratropium 00 [place] 0.167 MG/ML Inhalant Solution [DuoNeb] Flumazenil No Notes: Memor ia 01-11 (Same as: l 13:46: Romazicon) [place] 00 Ephedrine No Notes: Memori a 01-11 final l 13:46: concentrat [place] 00 ion 5 mg/mL Dexamethaso No Notes: Jah jina ne 01-11 Concentrat l 13:46: ion: [place] 00 4mg/ml Hydromorpho No Notes: Jah jina ne 01-11 Same as l 13:46: Dilaudid [place] 00 Oxycodone No Notes: Memori a 01-11 (Same as: l 13:46: Roxicodone [place] 00 ) Morphine No Notes: Memoria 01-11 (Same l 13:46: as:MORPhin e Sulfate) Metoprolol No Notes: Memor ia 01-11 (Same as: l 13:46: Lopressor) [place] 00 Push over 2 minutes Acetaminoph No Notes: Max Memoria en 01-11 acetaminop l 13:46: hen 4000 [place] 00 mg/day (4 gm/day). (Same as: Tylenol Extra Strength) Labetalol No Notes: Memori a 01-11 (Same as: l 13:46: Normodyne, [place] 00 Trandate) Push over 2 minutes Give bolus over 2-3 minutes. Ibuprofen No Notes: Memori a 01-11 (Same as: l 13:46: Motrin) [place] 00 "Do Not Crush" Take with food. Phenylephri No Notes: Jah jina ne 01-11 Same as: l 13:46: Yassine-Syneph [place] 00 rine Hydralazine No Notes: Jah jina 01-11 (Same as: l 13:46: Apresoline [place] 00 ) Push over 5 minutes Calcium No 1,000 mL, Memor ia Chloride 01-11 Rate: 125 l 0.0014 13:46: ml/hr, [place] MEQ/ML / 00 Infuse Potassium over: 8 Chloride hr, Route: 0.004 IV, Dosing MEQ/ML / Weight Sodium 111.409 Chloride kg, Total 0.103 Volume: MEQ/ML / 1,000, Sodium Start Lactate date: 0.028 01/11/17 MEQ/ML 8:46:00 Injectable CDT, Solution Duration: 30 day, Stop date: 02/10/17 8:45:00 CDT Acetazolami No Notes: Jah jina de 01-11 (Same as: l 13:46: Diamox) [place] 00 ANES No Notes: Memoria albuterol 01-11 Same as: l 90 mcg/inh 13:46: Ventolin Her [place] inhalation 00 HFA WASTE: aerosol Aerosol - Return to Pharmacy celecoxib No Notes: Memori a 01-11 NSAID. l 13:46: Please [place] 00 check indication . Not for seizure. (Same As: CeleBREX) Diphenhydra No Notes: Jah jina mine 01-11 (Same as: l 13:46: Benadryl) [place] 00 Flumazenil No Notes: Memor ia 01-11 (Same as: l 13:46: Romazicon) [place] 00 Ephedrine No Notes: Memori a 01-11 final l 13:46: concentrat [place] 00 ion 5 mg/mL Dexamethaso No Notes: Jah jina ne 01-11 Concentrat l 13:46: ion: [place] 00 4mg/ml Hydromorpho No Notes: Jah jina ne 01-11 Same as l 13:46: Dilaudid [place] 00 Oxycodone No Notes: Memori a 01-11 (Same as: l 13:46: Roxicodone [place] 00 ) Morphine No Notes: Memoria 01-11 (Same l 13:46: as:MORPhin [place] 00 e Sulfate) Metoprolol No Notes: Memor ia 01-11 (Same as: l 13:46: Lopressor) [place] 00 Push over 2 minutes Acetaminoph No Notes: Max Memoria en 01-11 acetaminop l 13:46: hen 4000 [place] 00 mg/day (4 gm/day). (Same as: Tylenol Extra Strength) Insulin, No Notes: Memoria Aspart, 01-11 Roll in l Human 13:46: palms of [place] 00 hands gently; Do not shake vigorously . (Same as: NovoLOG) "single patient use only" WASTE: F/P - Black; E - Municipal Trash Bin Stable for 28 days at room temperatur e. Expires in days from ____Date 72 HR No Notes: Memoria Scopolamine 01-11 Change l 0.0139 13:46: patch [place] MG/HR 00 every 72 Transdermal hours Patch (Same as: Transderm- Scop) Midazolam No Notes: Memori a 01-11 (Same as: l 13:46: Versed) [place] MEDICATION WASTE Product Size: 2 mg Product Wasted: ___ mg Naloxone No Notes: Memoria 01-11 Same as l 13:46: Narcan [place] 00 Meperidine No Notes: Memor ia 01-11 [...] lawson Solution 00 ION (Same as: Proventil) Labetalol No Notes: Memori a 01-11 (Same as: l 13:46: Normodyne, Trandate) Push over 2 minutes Give bolus over 2-3 minutes. Glycopyrrol No Notes: Jah jina ate 01-11 (Same as: l 13:46: Robinul) Atropine No Notes: Mem oria 01-11 MEDICATION l 13:46: WASTE Product Size: 0.4 mg Product Wasted: ___ mg Albuterol No Notes: Memori a 0.833 MG/ML 01-11 (Same as: l / 13:46: Duoneb) Ipratropium 00 [place] 0.167 MG/ML Inhalant Solution [DuoNeb] Phenylephri No [...] ia 01-11 (Same as: l 13:46: Romazicon) [place] 00 Ephedrine No Notes: Memori a 01-11 final l 13:46: concentrat [place] 00 ion 5 mg/mL Dexamethaso No Notes: Jah jina ne 01-11 Concentrat l 13:46: ion: [place] 00 4mg/ml Ibuprofen No Notes: Memori a 01-11 (Same as: l 13:46: Motrin) [place] 00 "Do Not Crush" Take with food. Hydromorpho No Notes: Jah jina ne 01-11 Same as l 13:46: Dilaudid [place] 00 Oxycodone No Notes: Memori a 01-11 (Same as: l 13:46: Roxicodone [place] 00 ) Morphine No Notes: Memoria 01-11 (Same l 13:46: as:MORPhin [place] 00 e Sulfate) Metoprolol No Notes: Memor ia 01-11 (Same as: l 13:46: Lopressor) [place] 00 Push over 2 minutes Acetaminoph No Notes: Max Memoria en 01-11 acetaminop l 13:46: hen 4000 [place] 00 mg/day (4 gm/day). (Same as: Tylenol Extra Strength) Labetalol No Notes: Memori a 01-11 (Same as: l 13:46: Normodyne, [place] 00 Trandate) Push over 2 minutes Give bolus over 2-3 minutes. Ibuprofen No Notes: Memori a 01-11 (Same as: l 13:46: Motrin) [place] 00 "Do Not Crush" Take with food. Hydralazine No Notes: Jah jina 01-11 (Same as: l 13:46: Apresoline [place] 00 ) Push over 5 minutes Calcium No 1,000 mL, Memor ia Chloride 01-11 Rate: 125 l 0.0014 13:46: ml/hr, [place] MEQ/ML / 00 Infuse Potassium over: 8 Chloride hr, Route: 0.004 IV, Dosing MEQ/ML / Weight Sodium 111.409 Chloride kg, Total 0.103 Volume: MEQ/ML / 1,000, Sodium Start Lactate date: 0.028 01/11/17 MEQ/ML 8:46:00 Injectable CDT, Solution Duration: 30 day, Stop date: 02/10/17 8:45:00 CDT Albuterol No Notes: SEE Me moria 0.83 MG/ML 01-11 RT l Inhalant 13:46: DOCUMENTAT Her [place] Solution 00 ION (Same as: Proventil) Hydralazine No Notes: Jah jina 01-11 (Same as: l 13:46: Apresoline [place] 00 ) Push over 5 minutes Calcium No 1,000 mL, Memor ia Chloride 01-11 Rate: 125 l 0.0014 13:46: ml/hr, [place] MEQ/ML / 00 Infuse Potassium over: 8 Chloride hr, Route: 0.004 IV, Dosing MEQ/ML / Weight Sodium 111.409 Chloride kg, Total 0.103 Volume: MEQ/ML / 1,000, Sodium Start Lactate date: 0.028 01/11/ MEQ/ML 8:46:00 Injectable CDT, Solution Duration: 30 day, Stop date: 02/10/17 8:45:00 CDT Glycopyrrol No Notes: Jah jina ate 01-11 (Same as: l 13:46: Robinul) [place] Insulin, No Notes: Memoria Aspart, 01-11 Roll in l Human 13:46: palms of [place] 00 hands gently; Do not shake vigorously [...] as: l / 13:46: Duoneb) Ipratropium 00 [place] 0.167 MG/ML Inhalant Solution [DuoNeb] Phenylephri No [...] Memori a 01-11 NSAID. l 13:46: Please [place] 00 check indication . Not for seizure. (Same As: CeleBREX) Flumazenil No Notes: Memor ia 01-11 (Same as: l 13:46: Romazicon) [place] Ephedrine No Notes: Memori a 01-11 final l 13:46: concentrat [place] 00 ion 5 mg/mL Dexamethaso No Notes: Jah jina ne 01-11 Concentrat l 13:46: ion: [place] 00 4mg/ml Hydromorpho No Notes: Jah jina ne 01-11 Same as l 13:46: Dilaudid [place] 00 Oxycodone No Notes: Memori a 01-11 (Same as: l 13:46: Roxicodone [place] 00 ) Morphine No Notes: Memoria 01-11 (Same l 13:46: as:MORPhin [place] 00 e Sulfate) Metoprolol No Notes: Memor ia 01-11 (Same as: l 13:46: Lopressor) [place] 00 Push over 2 minutes Acetaminoph No Notes: Max Memoria en 01-11 acetaminop l 13:46: hen 4000 [place] 00 mg/day (4 gm/day). (Same as: Tylenol Extra Strength) Labetalol No Notes: Memori a 01-11 (Same as: l 13:46: Normodyne, [place] 00 Trandate) Push over 2 minutes Give bolus over 2-3 minutes. Ibuprofen No Notes: Memori a 01-11 (Same as: l 13:46: Motrin) [place] 00 "Do Not Crush" Take with food. Hydralazine No Notes: Jah jina 01-11 (Same as: l 13:46: Apresoline [place] 00 ) Push over 5 minutes Calcium No 1,000 mL, Memor ia Chloride 01-11 Rate: 125 l 0.0014 13:46: ml/hr, [place] MEQ/ML / 00 Infuse Potassium over: 8 Chloride hr, Route: 0.004 IV, Dosing MEQ/ML / Weight Sodium 111.409 Chloride kg, Total 0.103 Volume: MEQ/ML / 1,000, Sodium Start Lactate date: 0.028 01/11/17 MEQ/ML 8:46:00 Injectable CDT, Solution Duration: 30 day, Stop date: 02/10/17 8:45:00 CDT Atropine No Notes: Mem oria 01-11 MEDICATION l 13:46: WASTE Product Size: 0.4 mg Product Wasted: ___ mg Insulin, No [...] mine 01-11 (Same as: l 13:46: Benadryl) [place] 00 Albuterol No Notes: SEE Me moria 0.83 MG/ML 01-11 RT l Inhalant 13:46: DOCUMENTAT Her [place] Solution 00 ION (Same as: Proventil) Glycopyrrol No Notes: Jah jina ate 01-11 (Same as: l 13:46: Robinul) [place] 00 Atropine No Notes: Mem oria 01-11 MEDICATION l 13:46: WASTE [place] 00 Product Size: 0.4 mg Product Wasted: ___ mg Albuterol No Notes: Memori a 0.833 MG/ML 01-11 (Same as: l / 13:46: Duoneb) Ipratropium 00 [place] 0.167 MG/ML Inhalant Solution [DuoNeb] Phenylephri No Notes: Jah jina ne 01-11 Same as: l 13:46: Yassine-Syneph [place] 00 rine Acetazolami No Notes: Jah jina de 01-11 (Same as: l 13:46: Diamox) [place] 00 ANES No Notes: Memoria albuterol 01-11 [...] Memori a 01-11 final l 13:46: concentrat [place] 00 ion 5 mg/mL Dexamethaso No Notes: Jah jina ne 01-11 Concentrat l 13:46: ion: [place] 00 4mg/ml Hydromorpho No Notes: Jah jina [...] en 01-11 acetaminop l 13:46: hen 4000 [place] 00 mg/day (4 gm/day). (Same as: Tylenol [...] l / 13:46: Duoneb) [place] Ipratropium 00 [place] 0.167 MG/ML Inhalant Solution [DuoNeb] Insulin, No Notes: Memoria Aspart, 01-11 Roll in l Human 13:46: palms of [place] 00 hands gently; Do not shake vigorously [...] a 01-11 (Same as: l 13:46: Versed) [place] 00 MEDICATION WASTE Product Size: 2 mg [...] jina 01-11 (Same as: l 13:46: Zofran) 00 MEDICATION WASTE Product Size: 4 mg [...] l / 13:46: Duoneb) [place] Ipratropium 00 [place] 0.167 MG/ML Inhalant Solution [DuoNeb] Phenylephri No Notes: Jah jina ne 01-11 Same as: l 13:46: Yassine-Syneph [place] 00 rine Acetazolami No Notes: Jah jina [...] ia 01-11 (Same as: l 13:46: Romazicon) [place] 00 Ephedrine No Notes: Memori a 01-11 final l 13:46: concentrat [place] ion 5 mg/mL Dexamethaso No Notes: Jah jina ne 01-11 Concentrat l 13:46: ion: [place] 00 4mg/ml Hydromorpho No Notes: Jah jina ne 01-11 Same as l 13:46: Dilaudid [place] 00 Oxycodone No Notes: Memori a 01-11 [...] (4 gm/day). (Same as: Tylenol Extra Strength) Phenylephri No Notes: Jah jina ne 01-11 Same as: l 13:46: Yassine-Syneph [place] 00 rine Labetalol No Notes: Memori a 01-11 (Same as: l 13:46: Normodyne, [place] 00 Trandate) Push over 2 minutes Give [...] 30 day, Stop date: 02/10/17 8:45:00 CDT Acetazolami No Notes: Jah jina de 01-11 (Same as: l 13:46: Diamox) [place] ANES No Notes: Memoria albuterol 01-11 Same as: l 90 mcg/inh 13:46: Ventolin Her [place] inhalation 00 HFA WASTE: aerosol Aerosol - Return to Pharmacy celecoxib No Notes: Memori a 01-11 NSAID. l 13:46: Please [place] check indication . Not for seizure. (Same As: CeleBREX) Flumazenil No Notes: Memor ia 01-11 (Same as: l 13:46: Romazicon) Ephedrine No Notes: Memori a 01-11 final l 13:46: concentrat [place] 00 ion 5 mg/mL Dexamethaso No Notes: Jah jina ne 01-11 Concentrat l 13:46: ion: [place] 00 4mg/ml Insulin, No Notes: Memoria Aspart, 01-11 Roll in l Human 13:46: palms of [place] hands gently; Do not shake vigorously . (Same as: NovoLOG) "single patient use only" WASTE: F/P - Black; E - Municipal Trash Bin Stable for 28 days at room temperatur e. Expires in days from ____Date Hydromorpho No Notes: Jah jina ne 01-11 Same as l 13:46: Dilaudid [place] 00 72 HR No Notes: Memoria Scopolamine 01-11 Change l 0.0139 13:46: patch [place] MG/HR 00 every 72 Transdermal hours Patch (Same as: Transderm- Scop) Midazolam No Notes: Memori a 01-11 (Same as: l 13:46: Versed) MEDICATION WASTE Product Size: 2 mg Product Wasted: ___ mg Naloxone No Notes: Memoria 01-11 Same as l 13:46: Narcan [place] 00 Meperidine No Notes: Memor ia 01-11 (Same as: l 13:46: Demerol) "Use Precaution in Elderly, Seizure disorders, and Renal impairment " Promethazin No Notes: Do M emoria e 01-11 not give l 13:46: IV push. (Same as: Phenergan) Ondansetron No Notes: Jha jina 01-11 (Same as: l 13:46: Zofran) [...] 01-11 (Same as: l / 13:46: Duoneb) [place] Ipratropium 00 [place] 0.167 MG/ML Inhalant Solution [DuoNeb] Phenylephri No [...] Memori a 01-11 NSAID. l 13:46: Please [place] 00 check indication . Not for seizure. (Same As: CeleBREX) Flumazenil No Notes: Memor ia 01-11 (Same as: l 13:46: Romazicon) [place] 00 Ephedrine No Notes: Memori a 01-11 final l 13:46: concentrat [place] 00 ion 5 mg/mL Dexamethaso No Notes: Jah jina ne 01-11 Concentrat l 13:46: ion: [place] 00 4mg/ml Hydromorpho No Notes: Jah jina ne 01-11 Same as l 13:46: Dilaudid [place] 00 Oxycodone No Notes: Memori a 01-11 (Same as: l 13:46: Roxicodone [place] 00 ) Morphine No Notes: Memoria 01-11 (Same l 13:46: as:MORPhin [place] 00 e Sulfate) Morphine No Notes: Memoria 01-11 (Same l 13:46: as:MORPhin [place] 00 e Sulfate) Metoprolol No Notes: Memor ia 01-11 (Same as: l 13:46: Lopressor) [place] 00 Push over 2 minutes Acetaminoph No Notes: Max Memoria en 01-11 acetaminop l 13:46: hen 4000 [place] 00 mg/day (4 gm/day). (Same as: Tylenol Extra Strength) Labetalol No Notes: Memori a 01-11 (Same as: l 13:46: Normodyne, [place] 00 Trandate) Push over 2 minutes Give bolus over 2-3 minutes. Ibuprofen No Notes: Memori a -08 (Same as: l 13:46: Motrin) [place] 00 "Do Not Crush" Take with food. Hydralazine No Notes: Jah jina 08 (Same as: l 13:46: Apresoline [place] 00 ) Push over 5 minutes Calcium [...] ia 01-11 (Same as: l 13:46: Lopressor) [place] 00 Push over 2 minutes Acetaminoph No Notes: Max Memoria en 01-11 acetaminop l 13:46: hen 4000 [place] 00 mg/day (4 gm/day). (Same as: Tylenol Extra Strength) Labetalol No Notes: Memori a 01-11 (Same as: l 13:46: Normodyne, [place] 00 Trandate) Push over 2 minutes Give bolus over 2-3 minutes. Ibuprofen No Notes: Memori a 01-11 (Same as: l 13:46: Motrin) [place] 00 "Do Not Crush" Take with food. Hydralazine No Notes: Jah jina 8-08 (Same as: l 13:46: Apresoline [place] 00 [...] ate 01-11 (Same as: l 13:46: Robinul) [place] 00 Atropine No Notes: Mem oria 01-11 MEDICATION l 13:46: WASTE [place] 00 Product Size: 0.4 mg Product Wasted: ___ mg Albuterol No Notes: Memori a 0.833 MG/ML 01-11 (Same as: l / 13:46: Duoneb) Ipratropium 00 [place] 0.167 MG/ML Inhalant Solution [DuoNeb] Phenylephri No Notes: Jah jina ne 01-11 Same as: l 13:46: Yassine-Syneph [place] 00 rine Acetazolami No Notes: Jha jina de 01-11 (Same as: l 13:46: Diamox) [place] 00 ANES No Notes: Memoria albuterol 01-11 [...] Memori a 01-11 final l 13:46: concentrat [place] 00 ion 5 mg/mL Dexamethaso No Notes: Jah jina ne 01-11 Concentrat l 13:46: ion: [place] 00 4mg/ml Hydromorpho No Notes: Jah jina ne 01-11 Same as l 13:46: Dilaudid [place] 00 Oxycodone No Notes: Memori a 01-11 (Same as: l 13:46: Roxicodone ) Morphine No Notes: Memoria 01-11 (Same l 13:46: as:MORPhin [place] 00 e Sulfate) Metoprolol No Notes: Memor ia 01-11 (Same as: l 13:46: Lopressor) [place] 00 Push over 2 minutes Acetaminoph No [...] jina 01-11 (Same as: l 13:46: Apresoline [place] 00 ) Push over 5 minutes Calcium [...] Roll in l Human 13:46: palms of [place] 00 hands gently; Do not shake vigorously . (Same as: NovoLOG) "single patient use only" WASTE: F/P - Black; E - Municipal Trash Bin Stable for 28 days at room temperatur e. Expires in days from ____Date 72 HR No Notes: Memoria Scopolamine 01-11 Change l 0.0139 13:46: patch [place] MG/HR 00 every 72 Transdermal hours Patch [...] 01-11 (Same as: l / 13:46: Duoneb) [place] Ipratropium 00 [place] 0.167 MG/ML Inhalant Solution [DuoNeb] Phenylephri No [...] Memori a 01-11 NSAID. l 13:46: Please [place] 00 check indication . Not for seizure. (Same As: CeleBREX) Flumazenil No Notes: Memor ia 01-11 (Same as: l 13:46: Romazicon) [place] 00 Ephedrine No Notes: Memori a 01-11 final l 13:46: concentrat [place] 00 ion 5 mg/mL Dexamethaso No Notes: [...] 01-11 Rate: 125 l 0.0014 13:46: ml/hr, [place] MEQ/ML / 00 Infuse Potassium over: 8 Chloride hr, Route: 0.004 IV, Dosing MEQ/ML / Weight Sodium 111.409 Chloride kg, Total 0.103 Volume: MEQ/ML / 1,000, Sodium Start Lactate date: 0.028 01/11/17 MEQ/ML 8:46:00 Injectable CDT, Solution Duration: 30 day, Stop date: 02/10/17 8:45:00 CDT Insulin, No Notes: Memoria Aspart, 01-11 Roll in l Human 13:46: palms of [place] hands gently; Do not shake vigorously . (Same as: NovoLOG) "single patient use only" WASTE: F/P - Black; E - Municipal Trash Bin Stable for 28 days at room temperatur e. Expires in days from ____Date 72 HR No Notes: Memoria Scopolamine 01-11 Change l 0.0139 13:46: patch [place] MG/HR 00 every 72 Transdermal hours Patch [...] as: l / 13:46: Duoneb) Ipratropium 00 [place] 0.167 MG/ML Inhalant Solution [DuoNeb] Phenylephri No Notes: Jah jina ne 01-11 Same as: l 13:46: Yassine-Syneph [place] 00 rine Acetazolami No Notes: Jah jina de 01-11 (Same as: l 13:46: Diamox) [place] 00 ANES No Notes: Memoria albuterol 01-11 [...] 01-11 Rate: 125 l 0.0014 13:46: ml/hr, MEQ/ML / 00 Infuse Potassium over: 8 [...] 01-11 Drug form: l 12:51: INJ, ONCE, [place] 00 Stop date: 01/11/17 7:51:00 CDT ePHEDrine No Route: IV, Me moria (ANES) 01-11 Drug form: l 12:51: INJ, ONCE, [place] 00 Stop date: 01/11/17 7:51:00 CDT ePHEDrine No [...] ONCE, Stop date: 01/11/17 7:51:00 CDT ePHEDrine 2017-0 No Route: IV, Me moria (ANES) [...] ONCE, Stop date: 01/11/17 7:51:00 CDT ePHEDrine 2017-0 No Route: IV, Me moria (ANES) 01-11 Drug form: l 12:51: INJ, ONCE, Stop date: 01/11/17 7:51:00 CDT ePHEDrine 2017-0 No Route: IV, Me moria (ANES) 01-11 Drug form: l 12:51: INJ, ONCE, Stop date: 01/11/17 7:51:00 CDT ePHEDrine 2017-0 No Route: IV, Me moria (ANES) 01-11 Drug form: l 12:51: INJ, ONCE, Stop date: 01/11/17 7:51:00 CDT ePHEDrine 2017-0 No Route: IV, Me moria (ANES) 01-11 Drug form: l 12:51: INJ, ONCE, Stop date: 01/11/17 7:51:00 CDT ePHEDrine 2017-0 No Route: IV, Me moria (ANES) 01-11 Drug form: l 12:51: INJ, ONCE, Stop date: 01/11/17 7:51:00 CDT ePHEDrine 2017-0 No Route: IV, Me moria (ANES) 01-11 Drug form: l 12:51: INJ, ONCE, Stop date: 01/11/17 7:51:00 CDT ePHEDrine 2017-0 No Route: IV, Me moria (ANES) [...] 01-11 Drug form: l 12:46: INJ, ONCE, [place] 00 Stop date: 01/11/17 7:46:00 CDT propofol 2017-0 [...] ONCE, Stop date: 01/11/17 7:41:00 CDT ceFAZolin 2016-0 No Route: IV, Me moria (ANES) 01-11 [...] ceFAZolin 2017-0 No Route: IV, moria (ANES) 8 Drug form: l 12:36: [...] 8 Drug form: l 12:36: INJ, ONCE, [place] 00 Stop date: 01/11/17 7:36:00 CDT ceFAZolin 2017-0 No Route: IV, Me moria (ANES) 01-11 Drug form: l 12:36: INJ, ONCE, [place] Stop date: 01/11/17 7:36:00 CDT acetaminoph 0 No Route: IV, Memoria [...] 2017 No Route: IV, Memoria en (ANES) 01-11 [...] 2017 No Route: IV, Memoria en (ANES) 01-11 Drug form: l (ANES) 12:29: INJ, Start Guillermina nn date: 01/11/17 7:29:00 CDT, Stop date: 01/11/17 8:29:00 CDT acetaminoph 2017-0 No Route: IV, Memoria en (ANES) 8- Drug form: l (ANES) 12:29: INJ, Start Guillermina date: 01/11/17 7:29:00 CDT, Stop date: 01/11/17 8:29:00 CDT acetaminoph 2017-0 No Route: IV, Memoria en (ANES) 8 Drug form: l (ANES) 12:29: INJ, Start Guillermina date: 01/11/17 7:29:00 CDT, Stop date: 01/11/17 8:29:00 CDT acetaminoph 2017-0 No Route: IV, Memoria en (ANES) 8 Drug form: l (ANES) 12:29: INJ, Start Guillermina date: 01/11/17 7:29:00 CDT, Stop date: 01/11/17 8:29:00 CDT acetaminoph 2017-0 No Route: IV, Memoria en (ANES) 8 Drug form: l (ANES) 12:29: INJ, Start Guillermina date: 01/11/17 7:29:00 CDT, Stop date: 01/11/17 8:29:00 CDT acetaminoph 2017-0 No Route: IV, Memoria en (ANES) 8 [...] 2017 No Route: IV, Memoria en (ANES) 8- Drug form: l (ANES) 12:29: INJ, Start Guillermina date: 01/11/17 7:29:00 CDT, Stop date: 01/11/17 8:29:00 CDT acetaminoph No Route: IV, Memoria en (ANES) 8 Drug form: l (ANES) 12:29: INJ, Start Guillermina date: 01/11/17 7:29:00 CDT, Stop date: 01/11/17 8:29:00 CDT acetaminoph 2016- No Route: IV, Memoria en (ANES) 8 Drug form: l (ANES) 12:29: INJ, Start Guillermina date: 01/11/17 7:29:00 CDT, Stop date: 01/11/17 8:29:00 CDT acetaminoph 0 No Route: IV, Memoria en (ANES) 8 Drug form: l (ANES) 12:29: INJ, Start Guillermina date: 01/11/17 7:29:00 CDT, Stop date: 01/11/17 8:29:00 CDT acetaminoph 2016-0 No Route: IV, Memoria en (ANES) 8 Drug form: l (ANES) 12:29: INJ, Start Guillermina date: 01/11/17 7:29:00 CDT, Stop date: 01/11/17 8:29:00 CDT acetaminoph No Route: IV, Memoria en (ANES) 8 Drug form: l (ANES) 12:29: INJ, Start Guillermina date: 01/11/17 7:29:00 CDT, Stop date: 01/11/17 8:29:00 CDT tranexamic 2016- No Route: IV, M emoria acid (ANES) 8 Drug form: l (ANES) 12:15: INJ, Start [...] No Route: IV, M emoria acid (ANES) 8 Drug form: l (ANES) 12:15: INJ, Guillermina date: 01/11/17 7:15:00 CDT, Stop date: 01/11/17 8:15:00 CDT tranexamic 2017-0 No Route: IV, M emoria acid (ANES) 8- Drug form: l (ANES) 12:15: INJ, Guillermina date: 01/11/17 7:15:00 CDT, Stop date: 01/11/17 8:15:00 CDT tranexamic 2017-0 No Route: IV, M emoria acid (ANES) 8 Drug form: l (ANES) 12:15: INJ, Guillermina date: 01/11/17 7:15:00 CDT, Stop date: 01/11/17 8:15:00 CDT tranexamic 20170 No Route: IV, M emoria acid (ANES) 8- Drug form: l (ANES) 12:15: INJ, Start Guillermina date: 01/11/17 7:15:00 CDT, Stop date: 01/11/17 8:15:00 CDT tranexamic 20170 No Route: IV, M emoria acid (ANES) 8-08 Drug form: l (ANES) 12:15: INJ, Guillermina date: 01/11/17 7:15:00 CDT, Stop date: 01/11/17 8:15:00 CDT tranexamic 2017-0 No Route: IV, M emoria acid (ANES) 8- Drug form: l (ANES) 12:15: INJ, Start Guillermina date: 01/11/17 7:15:00 CDT, Stop date: 01/11/17 8:15:00 CDT tranexamic 2017-0 No Route: IV, M emoria acid (ANES) 8- Drug form: l (ANES) 12:15: INJ, Guillermina date: 01/11/17 7:15:00 CDT, Stop date: 01/11/17 8:15:00 CDT tranexamic 20170 No Route: IV, M emoria acid (ANES) 8- Drug form: l (ANES) 12:15: INJ, date: 01/11/17 7:15:00 CDT, Stop date: 01/11/17 8:15:00 CDT tranexamic 20170 No Route: IV, M emoria acid (ANES) 8- Drug form: l (ANES) 12:15: INJ, Guillermina date: 01/11/17 7:15:00 CDT, Stop date: 01/11/17 8:15:00 CDT tranexamic 2017-0 No Route: IV, M emoria acid (ANES) 8 Drug form: l (ANES) 12:15: INJ, Guillermina date: 01/11/17 7:15:00 CDT, Stop date: [...] INJ (ANES) 8-08 Total l 12:01: Volume: [place] 00 1,000, Start date: 01/11/17 7:01:00 CDT, Stop date: 01/11/17 8:01:00 CDT LR 1000 mL No Route: IV, M emoria INJ (ANES) 8-08 Total l 12:01: Volume: [place] 00 1,000, Start date: 01/11/17 7:01:00 CDT, Stop date: 01/11/17 8:01:00 CDT LR 1000 mL No Route: IV, M emoria INJ (ANES) 8-08 Total l 12:01: Volume: [place] 00 1,000, Start date: 01/11/17 7:01:00 CDT, [...] INJ (ANES) 8-08 Total l 12:01: Volume: [place] 00 1,000, Start date: 01/11/17 7:01:00 CDT, Stop date: 01/11/17 8:01:00 CDT LR 1000 mL No Route: IV, M emoria INJ (ANES) 8-08 Total l 12:01: Volume: [place] 00 1,000, Start date: 01/11/17 7:01:00 CDT, Stop date: 01/11/17 8:01:00 CDT LR 1000 mL No Route: IV, M emoria INJ (ANES) 8-08 Total l 12:01: Volume: [place] 00 1,000, Start date: 01/11/17 7:01:00 CDT, Stop date: 01/11/17 8:01:00 CDT LR 1000 mL No Route: IV, M emoria INJ (ANES) 8-08 Total l 12:01: Volume: [place] 00 1,000, Start date: 01/11/17 7:01:00 CDT, Stop date: 01/11/17 8:01:00 CDT LR 1000 mL No Route: IV, M emoria INJ (ANES) 8-08 Total l 12:01: Volume: [place] 00 1,000, Start date: 01/11/17 7:01:00 CDT, Stop date: 01/11/17 8:01:00 CDT LR 1000 mL No Route: IV, M emoria INJ (ANES) 8-08 Total l 12:01: Volume: [place] 00 1,000, Start date: 01/11/17 7:01:00 CDT, Stop date: 01/11/17 8:01:00 CDT LR 1000 mL No Route: IV, M emoria INJ (ANES) 8-08 Total l 12:01: Volume: [place] 00 1,000, Start date: 01/11/17 7:01:00 CDT, [...] INJ (ANES) 8-08 Total l 12:01: Volume: [place] 00 1,000, Start date: 01/11/17 7:01:00 CDT, Stop date: 01/11/17 8:01:00 CDT LR 1000 mL No Route: IV, M emoria INJ (ANES) 8-08 Total l 12:01: Volume: [place] 00 1,000, Start date: 01/11/17 7:01:00 CDT, Stop date: 01/11/17 8:01:00 CDT LR 1000 mL No Route: IV, M emoria INJ (ANES) 8-08 Total l 12:01: Volume: [place] 00 1,000, Start date: 01/11/17 7:01:00 CDT, Stop date: 01/11/17 8:01:00 CDT LR 1000 mL No Route: IV, M emoria INJ (ANES) 8-08 Total l 12:01: Volume: [place] 00 1,000, Start date: 01/11/17 7:01:00 CDT, Stop date: 01/11/17 8:01:00 CDT LR 1000 mL No Route: IV, M emoria INJ (ANES) 8-08 Total l 12:01: Volume: [place] 00 1,000, Start date: 01/11/17 7:01:00 CDT, Stop date: 01/11/17 8:01:00 CDT LR 1000 mL No Route: IV, M emoria INJ (ANES) 8-08 Total l 12:01: Volume: [place] 00 1,000, Start date: 01/11/17 7:01:00 CDT, Stop date: 01/11/17 8:01:00 CDT LR 1000 mL No Route: IV, M emoria INJ (ANES) 8-08 Total l 12:01: Volume: [place] 00 1,000, Start date: 01/11/17 7:01:00 CDT, Stop date: 01/11/17 8:01:00 CDT LR 1000 mL No Route: IV, M emoria INJ (ANES) 8-08 Total l 12:01: Volume: [place] 00 1,000, Start date: 01/11/17 7:01:00 CDT, Stop date: 01/11/17 8:01:00 CDT LR 1000 mL No Route: IV, M emoria INJ (ANES) 8-08 Total l 12:01: Volume: [place] 00 1,000, Start date: 01/11/17 7:01:00 CDT, Stop date: 01/11/17 8:01:00 CDT LR 1000 mL No Route: IV, M emoria INJ (ANES) 8-08 Total l 12:01: Volume: [place] 00 1,000, Start date: 01/11/17 7:01:00 CDT, Stop date: 01/11/17 8:01:00 CDT LR 1000 mL No Route: IV, M emoria INJ (ANES) 8-08 Total l 12:01: Volume: [place] 00 1,000, Start date: 01/11/17 7:01:00 CDT, Stop date: 01/11/17 8:01:00 CDT LR 1000 mL No Route: IV, M emoria INJ (ANES) 8-08 Total l 12:01: Volume: [place] 00 1,000, Start date: 01/11/17 7:01:00 CDT, Stop date: 01/11/17 8:01:00 CDT LR 1000 mL No Route: IV, M emoria INJ (ANES) 8-08 Total l 12:01: Volume: [place] 00 1,000, Start date: 01/11/17 7:01:00 CDT, Stop date: 01/11/17 8:01:00 CDT LR 1000 mL No Route: IV, M emoria INJ (ANES) 8-08 Total l 12:01: Volume: [place] 00 1,000, Start date: 01/11/17 7:01:00 CDT, Stop date: 01/11/17 8:01:00 CDT LR 1000 mL No Route: IV, M emoria INJ (ANES) 8-08 Total l 12:01: Volume: [place] 00 1,000, Start date: 01/11/17 7:01:00 CDT, Stop date: 01/11/17 8:01:00 CDT LR 1000 mL No Route: IV, M emoria INJ (ANES) 8-08 Total l 12:01: Volume: [place] 00 1,000, Start date: 01/11/17 7:01:00 CDT, [...] INJ (ANES) 8-08 Total l 12:01: Volume: [place] 00 1,000, Start date: 01/11/17 7:01:00 CDT, Stop date: 01/11/17 8:01:00 CDT LR 1000 mL No Route: IV, M emoria INJ (ANES) 8-08 Total l 12:01: Volume: [place] 00 1,000, Start date: 01/11/17 7:01:00 CDT, [...] CDT LR 1000 mL No Route: IV, Linda emoria INJ (ANES) 8 Total l 12:01: Volume: [place] 00 1,000, Start date: 01/11/17 7:01:00 CDT, Stop date: 01/11/17 8:01:00 CDT LR 1000 mL No Route: IV, M emoria INJ (ANES) 8 Total l 12:01: Volume: [place] 00 1,000, Start date: 01/11/17 7:01:00 CDT, Stop date: 01/11/17 8:01:00 CDT LR 1000 mL No Route: IV, Linda emoria INJ (ANES) 01-11 Total l 12:01: Volume: [place] 00 1,000, Start date: 01/11/17 7:01:00 CDT, Stop date: 01/11/17 8:01:00 CDT ceFAZolin No Notes: Memori a 01-11 Same as: l 11:00: Ancef [place] 00 Neurontin No Notes: Memori a 01-11 [...] jina - (Same As: l 11:00: Cyklokapro [place] 00 n) CeleBREX No Notes: Memoria 8-08 NSAID. l 11:00: Please [place] 00 check indication . Not for seizure. (Same As: CeleBREX) ceFAZolin No Notes: Memori a 01-11 Same as: l 11:00: Ancef [place] 00 Neurontin No Notes: Memori a 01-11 [...] jina 01-11 (Same As: l 11:00: Cyklokapro [place] 00 n) CeleBREX No Notes: Memoria 8-08 NSAID. l 11:00: Please [place] 00 check indication . Not for seizure. (Same As: CeleBREX) ceFAZolin No Notes: Memori a 01-11 Same as: l 11:00: Ancef [place] 00 Neurontin No Notes: Memori a -08 (Same as: l 11:00: Neurontin) [place] 00 polymyxin B No Notes: Jah jina sulfate + 8-08 (Same as: l sodium 11:00: Polymyxin Jaime n chloride 00 B Sulfate) 0.9% 250 mL INJ (for IV set) 250 mL Lactated 2016-0 No 1,000 mL, Jah jina Ringers 8-08 Rate: 100 l 1,000 mL 11:00: ml/hr, [place] 00 Infuse over: 10 hr, Route: IV, [...] jina 8-08 (Same As: l 11:00: Cyklokapro [place] 00 n) CeleBREX No Notes: Memoria 8-08 NSAID. l 11:00: Please [place] 00 check indication . Not for seizure. (Same As: CeleBREX) ceFAZolin No Notes: Memori a 8-08 Same as: l 11:00: Ancef [place] 00 Neurontin No Notes: Memori a 8-08 (Same as: l 11:00: Neurontin) [place] 00 polymyxin B No Notes: Jah jina sulfate + 8-08 (Same as: l sodium 11:00: Polymyxin Ja[place] n chloride 00 B Sulfate) 0.9% 250 mL INJ (for IV set) 250 mL Lactated 2017-0 No 1,000 mL, Jah jina Ringers 8-08 [...] jina 01-11 (Same As: l 11:00: Cyklokapro [place] 00 n) CeleBREX No Notes: Memoria 8 NSAID. l 11:00: Please [place] 00 check indication . Not for seizure. (Same As: CeleBREX) ceFAZolin No Notes: Memori a 01-11 Same as: l 11:00: Ancef [place] 00 Neurontin No Notes: Memori a 01-11 (Same as: l 11:00: Neurontin) [place] 00 polymyxin B No Notes: Jah jina [...] [place] 00 n) CeleBREX No Notes: Memoria -08 NSAID. l 11:00: Please [place] 00 check indication . Not for seizure. (Same As: CeleBREX) ceFAZolin No Notes: Memori a 01-11 Same as: l 11:00: Ancef [place] 00 Neurontin No Notes: Memori a 8 (Same as: l 11:00: Neurontin) [place] polymyxin B No Notes: Jah jina sulfate + 01-11 (Same as: l sodium 11:00: Polymyxin Jaime n chloride 00 B Sulfate) 0.9% 250 mL INJ (for IV set) 250 mL Lactated No 1,000 mL, Jah jina Ringers 01-11 Rate: 100 l 1,000 mL 11:00: ml/hr, [place] 00 Infuse over: 10 hr, Route: IV, [...] jina 01-11 (Same As: l 11:00: Cyklokapro [place] 00 n) CeleBREX No Notes: Memoria 01-11 NSAID. l 11:00: Please [place] check indication . Not for seizure. (Same [...] jina 8-08 (Same As: l 11:00: Cyklokapro [place] 00 n) CeleBREX No Notes: Memoria 8-08 NSAID. l 11:00: Please [place] 00 check indication . Not for seizure. (Same As: CeleBREX) ceFAZolin No Notes: Memori a 8 Same as: l 11:00: Ancef [place] 00 Neurontin No Notes: Memori a 01-11 (Same as: l 11:00: Neurontin) [place] polymyxin B No Notes: Jah jina sulfate [...] jina 01-11 (Same As: l 11:00: Cyklokapro [place] n) CeleBREX No Notes: Memoria 8-08 NSAID. l 11:00: Please [place] 00 check indication . Not for seizure. (Same As: CeleBREX) ceFAZolin No Notes: Memori a - Same as: l 11:00: Ancef [place] 00 Neurontin No Notes: Memori a - (Same as: l 11:00: Neurontin) [place] 00 polymyxin B No Notes: Jah jina sulfate + 08 (Same as: l sodium 11:00: Polymyxin Jaime n chloride 00 B Sulfate) 0.9% 250 mL INJ (for IV set) 250 mL Lactated No 1,000 mL, Jah jina Ringers 01-11 Rate: 100 l 1,000 mL 11:00: ml/hr, [place] Infuse over: 10 hr, Route: IV, Dosing [...] jina 01-11 (Same As: l 11:00: Cyklokapro [place] 00 n) CeleBREX No Notes: Memoria 01-11 NSAID. l 11:00: Please [place] 00 check indication . Not for seizure. (Same As: CeleBREX) ceFAZolin No Notes: Memori a 01-11 Same as: l 11:00: Ancef [place] 00 Neurontin No Notes: Memori a 01-11 [...] 1000 mg Product Wasted: ___ mg ceFAZolin 2016- No Notes: Memori a 01-11 Same as: l 11:00: Ancef [place] 00 Cyklokapron 2016-0 No Notes: Jah jina 01-11 (Same As: l 11:00: Cyklokapro [place] 00 n) CeleBREX No Notes: Memoria 8-08 NSAID. l 11:00: Please [place] 00 check indication . Not for seizure. (Same As: CeleBREX) Neurontin 2016-0 No Notes: Memori a 01-11 (Same as: l 11:00: Neurontin) [place] polymyxin B No Notes: Jah jina sulfate + 01-11 (Same as: l sodium 11:00: Polymyxin Jaime n chloride 00 B Sulfate) 0.9% 250 mL INJ (for IV set) 250 mL Lactated No 1,000 mL, Jah jina Ringers 01-11 Rate: 100 l 1,000 mL 11:00: ml/hr, [place] 00 Infuse over: 10 hr, Route: IV, [...] Notes: Memoria 8-08 NSAID. l 11:00: Please [place] 00 check indication . Not for seizure. (Same As: CeleBREX) ceFAZolin 2016- No Notes: Memori a 01-11 Same as: l 11:00: Ancef [place] 00 Neurontin 2016-0 No Notes: Memori a 01-11 (Same as: l 11:00: Neurontin) [place] 00 polymyxin B No Notes: Jah jina sulfate + 8-08 (Same as: l sodium 11:00: Polymyxin Jaime n chloride 00 B Sulfate) 0.9% 250 mL INJ (for IV set) 250 mL Lactated No 1,000 mL, Jah jina Ringers 8-08 Rate: 100 l 1,000 mL 11:00: ml/hr, [place] 00 Infuse over: 10 hr, Route: IV, [...] Wasted: ___ mg Cyklokapron No Notes: Jah jian 8-08 (Same As: l 11:00: Cyklokapro [place] 00 n) CeleBREX No Notes: Memoria - NSAID. l 11:00: Please [place] 00 check indication . Not for seizure. (Same As: CeleBREX) ceFAZolin No Notes: Memori a 8-08 Same as: l 11:00: Ancef [place] 00 Neurontin No Notes: Memori a -08 (Same as: l 11:00: Neurontin) [place] 00 [...] jina 01-11 (Same As: l 11:00: Cyklokapro [place] 00 n) CeleBREX No Notes: Memoria 8- NSAID. l 11:00: Please [place] 00 check indication . Not for seizure. [...] mg Cyklokapron 2016-0 No Notes: Jah jina 01-11 (Same As: l 11:00: Cyklokapro [place] 00 n) CeleBREX No Notes: Memoria 8-08 NSAID. l 11:00: Please [place] 00 check indication . Not for seizure. (Same As: CeleBREX) ceFAZolin No Notes: Memori a 01-11 Same as: l 11:00: Ancef [place] 00 Neurontin 2016-0 No Notes: Memori a 01-11 (Same as: l 11:00: Neurontin) [place] polymyxin B No Notes: Jah jina sulfate [...] date: 02/10/17 5:59:00 CDT vancomycin 2017-0 No 2000 mg: Me moria + sodium 8-08 infuse l chloride 11:00: over 2.5 Guillermina nn 0.9% 500 mL 00 hours INJ (for IV MEDICATION set) 500 mL WASTE Product Size: 1000 mg Product Wasted: ___ mg Cyklokapron 2016-0 No Notes: Jah jina 8-08 (Same As: l 11:00: Cyklokapro [place] 00 n) CeleBREX 2016- No Notes: Memoria 8 NSAID. l 11:00: Please [place] 00 check indication . Not for seizure. (Same As: CeleBREX) ceFAZolin 2016- No Notes: Memori a 8-08 Same as: l 11:00: Ancef [place] 00 Neurontin 2016-0 No Notes: Memori a 8-08 (Same as: l 11:00: Neurontin) [place] 00 polymyxin B 2016- No Notes: Jah jina sulfate + 8-08 (Same as: l sodium 11:00: Polymyxin Jaime n chloride 00 B Sulfate) 0.9% 250 mL INJ (for IV set) 250 mL Lactated No 1,000 mL, Jah jina Ringers -08 Rate: 100 l 1,000 mL 11:00: ml/hr, [place] 00 Infuse over: 10 hr, Route: IV, Dosing Weight 109.091 kg, Total Volume: 1,000, Start date: 01/11/17 6:00:00 CDT, Duration: 30 day, Stop date: 02/10/17 5:59:00 CDT vancomycin 2017-0 No 2000 mg: Me moria + sodium [...] As: CeleBREX) ceFAZolin No Notes: Memori a 8 Same as: l 11:00: Ancef [place] 00 Neurontin No Notes: Memori a 8 (Same as: l 11:00: Neurontin) [place] polymyxin B No Notes: Jah jina sulfate + -08 (Same as: l sodium 11:00: Polymyxin Jaime n chloride 00 B Sulfate) 0.9% 250 mL INJ (for IV set) 250 mL Lactated No 1,000 mL, Jah jina Ringers 01-11 Rate: 100 l 1,000 mL 11:00: ml/hr, [place] 00 Infuse over: 10 hr, Route: IV, [...] jina 01-11 (Same As: l 11:00: Cyklokapro [place] 00 n) CeleBREX No Notes: Memoria 8-08 NSAID. l 11:00: Please [place] 00 check indication . Not for seizure. (Same As: CeleBREX) ceFAZolin No Notes: Memori a 8- Same as: l 11:00: Ancef [place] 00 Neurontin No Notes: Memori a 8- (Same as: l 11:00: Neurontin) [place] 00 polymyxin B No Notes: Jah jina sulfate + 8-08 (Same as: l sodium 11:00: Polymyxin Jaime n chloride 00 B Sulfate) 0.9% 250 mL INJ (for IV set) 250 mL Lactated 2017- No 1,000 mL, Jah jina Ringers 01-11 Rate: 100 l 1,000 mL 11:00: ml/hr, [place] 00 Infuse over: 10 hr, Route: IV, [...] jina 01-11 (Same As: l 11:00: Cyklokapro [place] 00 n) CeleBREX No Notes: Memoria 01-11 NSAID. l 11:00: Please [place] 00 check indication . Not for seizure. (Same As: CeleBREX) ceFAZolin No Notes: Memori a 01-11 Same as: l 11:00: Ancef [place] 00 Neurontin No Notes: Memori a 01-11 (Same as: l 11:00: Neurontin) [place] 00 polymyxin B No Notes: Jah jina [...] jina 01-11 (Same As: l 11:00: Cyklokapro [place] 00 n) CeleBREX No Notes: Memoria 01-11 NSAID. l 11:00: Please [place] check indication . Not for seizure. (Same As: CeleBREX) ceFAZolin No Notes: Memori a 01-11 Same as: l 11:00: Ancef [place] Neurontin No Notes: Memori a 01-11 (Same as: l 11:00: Neurontin) [place] ceFAZolin No Notes: Memori a 01-11 Same [...] 250 mL Cyklokapron No Notes: Jah jina 8 (Same As: l 11:00: Cyklokapro [place] 00 n) CeleBREX No Notes: Memoria 8-08 NSAID. l 11:00: Please [place] 00 check indication . Not for seizure. (Same As: CeleBREX) Lactated No 1,000 mL, Jah jina Ringers [...] Notes: Memoria 8- NSAID. l 11:00: Please [place] 00 check indication . Not for seizure. (Same As: CeleBREX) ceFAZolin No Notes: Memori a 01-11 Same as: l 11:00: Ancef [place] 00 Neurontin No Notes: Memori a 01-11 (Same as: l 11:00: Neurontin) [place] 00 polymyxin B No Notes: Jah jina [...] a 01-11 Same as: l 11:00: Ancef [place] 00 Neurontin No Notes: Memori a 01-11 (Same as: l 11:00: Neurontin) [place] 00 polymyxin B No Notes: Jah jina [...] jina 01-11 (Same As: l 11:00: Cyklokapro [place] 00 n) CeleBREX No Notes: Memoria 8-08 NSAID. l 11:00: Please [place] 00 check indication . Not for seizure. (Same As: CeleBREX) ceFAZolin No Notes: Memori a 8- Same as: l 11:00: Ancef [place] 00 Neurontin No Notes: Memori a 01-11 [...] Notes: Memoria 01-11 NSAID. l 11:00: Please [place] 00 check indication . Not for seizure. [...] Rate: 100 l 1,000 mL 11:00: ml/hr, [place] 00 Infuse over: 10 hr, Route: IV, Dosing Weight 109.091 kg, Total Volume: 1,000, Start date: 01/11/17 6:00:00 CDT, Duration: 30 day, Stop date: 02/10/17 5:59:00 CDT vancomycin 2017-0 No 2000 mg: Me moria + sodium 8-08 infuse l chloride 11:00: over 2.5 Guillermina nn 0.9% 500 mL 00 hours INJ (for IV MEDICATION set) 500 mL WASTE Product Size: 1000 mg Product Wasted: ___ mg Cyklokapron 2016- No Notes: Jah jina 8-08 (Same As: l 11:00: Cyklokapro [place] 00 n) CeleBREX 2017- No Notes: Memoria 8- NSAID. l 11:00: Please [place] 00 check indication . Not for seizure. (Same As: CeleBREX) ceFAZolin 2016- No Notes: Memori a 8-08 Same as: l 11:00: Ancef [place] 00 Neurontin 2016-0 No Notes: Memori a 8-08 (Same as: l 11:00: Neurontin) [place] 00 polymyxin B 2016- No Notes: Jah jina sulfate + 8-08 (Same as: l sodium 11:00: Polymyxin Jaime n chloride 00 B Sulfate) 0.9% 250 mL INJ (for IV set) 250 mL Lactated 2016- No 1,000 mL, Jah jina Ringers 01-11 Rate: 100 l 1,000 mL 11:00: ml/hr, [place] 00 Infuse over: 10 hr, Route: IV, Dosing Weight 109.091 kg, Total Volume: 1,000, Start date: 01/11/17 6:00:00 CDT, Duration: 30 day, Stop date: 02/10/17 5:59:00 CDT vancomycin 2017-0 No 2000 mg: Me moria + sodium 8-08 infuse l chloride 11:00: over 2.5 Guillermina nn 0.9% 500 mL 00 hours INJ (for IV MEDICATION set) 500 mL WASTE Product Size: 1000 mg Product Wasted: ___ mg Cyklokapron 2017-0 No Notes: Jah jina 8-08 (Same As: l 11:00: Cyklokapro [place] 00 n) CeleBREX No Notes: Memoria 8-08 NSAID. l 11:00: Please [place] 00 check indication . Not for seizure. (Same As: CeleBREX) ceFAZolin No Notes: Memori a 01-11 Same as: l 11:00: Ancef [place] 00 Neurontin No Notes: Memori a 01-11 (Same as: l 11:00: Neurontin) [place] polymyxin B No Notes: Jah jina sulfate [...] Notes: Memoria 01-11 NSAID. l 11:00: Please [place] 00 check indication . Not for seizure. (Same As: CeleBREX) ceFAZolin No Notes: Memori a 01-11 Same as: l 11:00: Ancef [place] 00 Neurontin 2016- No Notes: Memori a 01-11 (Same as: l 11:00: Neurontin) [place] 00 polymyxin B No Notes: Jah jina sulfate + 01-11 (Same as: l sodium 11:00: Polymyxin Jaime n chloride 00 B Sulfate) 0.9% 250 mL INJ (for IV set) 250 mL Lactated No 1,000 mL, Jah jina Ringers 01-11 Rate: 100 l 1,000 mL 11:00: ml/hr, [place] 00 Infuse over: 10 hr, Route: IV, [...] jina 01-11 (Same As: l 11:00: Cyklokapro [place] 00 n) CeleBREX 2016-0 No Notes: Memoria 01-11 NSAID. l 11:00: Please [place] 00 check indication . Not for seizure. (Same As: CeleBREX) ceFAZolin 2016- No Notes: Memori a 01-11 Same as: l 11:00: Ancef [place] 00 Neurontin 2016-0 No Notes: Memori a 01-11 (Same as: l 11:00: Neurontin) [place] polymyxin B 2016- No Notes: Jah jina [...] jina 01-11 (Same As: l 11:00: Cyklokapro [place] 00 n) CeleBREX 2016-0 No Notes: Memoria 01-11 NSAID. l 11:00: Please [place] 00 check indication . Not for seizure. (Same As: CeleBREX) ceFAZolin 2016-0 No Notes: Memori a 01-11 Same as: l 11:00: Ancef [place] 00 Neurontin 2016-0 No Notes: Memori a 01-11 (Same as: l 11:00: Neurontin) [place] polymyxin B No Notes: Jah jian sulfate + 8-08 (Same as: l sodium 11:00: Polymyxin Jaime n chloride 00 B Sulfate) 0.9% 250 mL INJ (for IV set) 250 mL Lactated 2016-0 No 1,000 mL, Jah jina Ringers 01-11 Rate: 100 l 1,000 mL 11:00: ml/hr, [place] 00 Infuse over: 10 hr, Route: IV, Dosing Weight 109.091 kg, Total Volume: 1,000, Start date: 01/11/17 6:00:00 CDT, Duration: 30 day, Stop date: 02/10/17 5:59:00 CDT ceFAZolin No Notes: Memori a 01-11 Same as: l 11:00: Ancef [place] Neurontin No Notes: Memori a 01-11 (Same as: l 11:00: Neurontin) [place] 00 polymyxin B No Notes: Jah jina sulfate + 01-11 (Same as: l sodium 11:00: Polymyxin Jaime n chloride 00 B Sulfate) 0.9% 250 mL INJ (for IV set) 250 mL Lactated No 1,000 mL, Jah jina Ringers 01-11 Rate: 100 l 1,000 mL 11:00: ml/hr, [place] 00 Infuse over: 10 hr, Route: IV, [...] jina 01-11 (Same As: l 11:00: Cyklokapro [place] 00 n) CeleBREX No Notes: Memoria 01-11 NSAID. l 11:00: Please [place] 00 check indication . Not for seizure. (Same As: CeleBREX) vancomycin 2016-0 No 2000 mg: Me moria + sodium 8-08 infuse l chloride 11:00: over 2.5 Guillermina nn 0.9% 500 mL 00 hours INJ (for IV MEDICATION set) 500 mL WASTE Product Size: 1000 mg Product Wasted: ___ mg Cyklokapron No Notes: Jah jina 8- (Same As: l 11:00: Cyklokapro [place] 00 n) CeleBREX No Notes: Memoria 8-08 NSAID. l 11:00: Please [place] 00 check indication . Not for seizure. (Same As: CeleBREX) ceFAZolin No Notes: Memori a 01-11 Same as: l 11:00: Ancef [place] 00 Neurontin 2016- No Notes: Memori a 01-11 (Same as: l 11:00: Neurontin) [place] 00 polymyxin B No Notes: Jah jina sulfate + 01-11 (Same as: l sodium 11:00: Polymyxin Jaime n chloride 00 B Sulfate) 0.9% 250 mL INJ (for IV set) 250 mL Lactated No 1,000 mL, Jah jina Ringers 01-11 Rate: 100 l 1,000 mL 11:00: ml/hr, [place] 00 Infuse over: 10 hr, Route: IV, [...] mg Cyklokapron 2016-0 No Notes: Jah jina 8- (Same As: l 11:00: Cyklokapro [place] 00 n) CeleBREX No Notes: Memoria 8-08 NSAID. l 11:00: Please [place] 00 check indication . Not for seizure. (Same As: CeleBREX) ceFAZolin No Notes: Memori a 01-11 Same as: l 11:00: Ancef [place] Neurontin No Notes: Memori a 01-11 (Same as: l 11:00: Neurontin) [place] 00 polymyxin B No Notes: Jah jina sulfate + 01-11 (Same as: l sodium 11:00: Polymyxin Jaime n chloride B Sulfate) 0.9% 250 mL INJ (for IV set) 250 mL Lactated No 1,000 mL, Jah jina Ringers 01-11 Rate: 100 l 1,000 mL 11:00: ml/hr, Infuse over: 10 hr, Route: IV, Dosing [...] jina 01-11 (Same As: l 11:00: Cyklokapro [place] 00 n) CeleBREX No Notes: Memoria 01-11 NSAID. l 11:00: Please [place] 00 check indication . Not for seizure. (Same As: CeleBREX) ceFAZolin No Notes: Memori a 01-11 Same as: l 11:00: Ancef [place] Neurontin No Notes: Memori a 01-11 (Same as: l 11:00: Neurontin) [place] 00 polymyxin B No Notes: Jah jina sulfate + 01-11 (Same as: l sodium 11:00: Polymyxin Jaime n chloride 00 B Sulfate) 0.9% 250 mL INJ (for IV set) 250 mL Lactated 2016- No 1,000 mL, Jah jina Ringers 01-11 Rate: 100 l 1,000 mL 11:00: ml/hr, [place] 00 Infuse over: 10 hr, Route: IV, [...] jina - (Same As: l 11:00: Cyklokapro [place] 00 n) CeleBREX No Notes: Memoria 01-11 NSAID. l 11:00: Please [place] 00 check indication . Not for seizure. (Same As: CeleBREX) ceFAZolin 2016- No Notes: Memori a 8-08 Same as: l 11:00: Ancef [place] 00 Neurontin 2016-0 No Notes: Memori a 08 (Same as: l 11:00: Neurontin) [place] 00 polymyxin B No Notes: Jah jina sulfate + 01-11 (Same as: l sodium 11:00: Polymyxin Jaime n chloride 00 B Sulfate) 0.9% 250 mL INJ (for IV set) 250 mL Lactated No 1,000 mL, Jah jina Ringers 01-11 Rate: 100 l 1,000 mL 11:00: ml/hr, [place] 00 Infuse over: 10 hr, Route: IV, Dosing Weight 109.091 kg, Total Volume: 1,000, Start date: 01/11/17 6:00:00 CDT, Duration: 30 day, Stop date: 02/10/17 5:59:00 CDT vancomycin 2016-0 No 2000 mg: Me moria + sodium 8-08 infuse l chloride 11:00: over 2.5 Guillermina nn 0.9% 500 mL 00 hours INJ (for IV MEDICATION set) 500 mL WASTE Product Size: 1000 mg Product Wasted: ___ mg Cyklokapron 2016-0 No Notes: Jah jina 8-08 (Same As: l 11:00: Cyklokapro [place] 00 n) CeleBREX No Notes: Memoria 8-08 NSAID. l 11:00: Please [place] 00 check indication . Not for seizure. (Same As: CeleBREX) ceFAZolin No Notes: Memori a 8- Same as: l 11:00: Ancef [place] 00 Neurontin No Notes: Memori a 8-08 (Same as: l 11:00: Neurontin) [place] polymyxin B No Notes: Jah jina sulfate [...] jina - (Same As: l 11:00: Cyklokapro [place] 00 n) CeleBREX No Notes: Memoria 8-08 NSAID. l 11:00: Please [place] 00 check indication . Not for seizure. (Same As: CeleBREX) ceFAZolin No Notes: Memori a 8-08 Same as: l 11:00: Ancef [place] 00 Neurontin No Notes: Memori a 8-08 (Same as: l 11:00: Neurontin) [place] 00 polymyxin B No Notes: Jah jina sulfate + 8-08 (Same as: l sodium 11:00: Polymyxin Jaime n chloride 00 B Sulfate) 0.9% 250 mL INJ (for IV set) 250 mL Lactated 2017- No 1,000 mL, Jah jina Ringers 01-11 Rate: 100 l 1,000 mL 11:00: ml/hr, [place] 00 Infuse over: 10 hr, Route: IV, [...] jina 01-11 (Same As: l 11:00: Cyklokapro [place] n) CeleBREX No Notes: Memoria - NSAID. l 11:00: Please [place] check indication . Not for seizure. (Same As: CeleBREX) ceFAZolin No Notes: Memori a 01-11 Same as: l 11:00: Ancef [place] 00 Neurontin 2016- No Notes: Memori a 01-11 (Same as: l 11:00: Neurontin) [place] 00 polymyxin B No Notes: Jah jina [...] l / 10:08: Duoneb) [place] Ipratropium 00 [place] 0.167 MG/ML Inhalant Solution albuterol No Notes: [...] Roll in l Human 10:08: palms of [place] 00 hands gently; Do not shake vigorously . (Same as: NovoLOG) "single patient use only" WASTE: F/P - Black; E - Municipal Trash Bin Stable for 28 days at room temperatur e. Expires in days from ____Date Albuterol No Notes: Memori a 0.833 MG/ML 01-11 (Same as: l / 10:08: Duoneb) [place] Ipratropium 00 [place] 0.167 MG/ML Inhalant Solution albuterol No Notes: Memori a 90 mcg/inh 01-11 Same as: l inhalation 10:08: Ventolin Her law[place] aerosol 00 HFA WASTE: Aerosol - Return to Pharmacy Calcium No 1,000 mL, Memor ia Chloride 01-11 Rate: 25 l 0.0014 10:08: ml/hr, [place] MEQ/ML / 00 Infuse Potassium over: 40 Chloride hr, Route: 0.004 IV, Dosing MEQ/ML / Weight Sodium 109.091 Chloride kg, Total 0.103 Volume: MEQ/ML / 1,000, Sodium Start Lactate date: 0.028 01/11/17 MEQ/ML 5:08:00 Injectable CDT, Solution Duration: 30 day, Stop date: 02/10/17 5:07:00 CDT Insulin, No Notes: Memoria Aspart, 01-11 Roll in l Human 10:08: palms of [place] 00 hands gently; Do not shake vigorously . (Same as: NovoLOG) "single patient use only" WASTE: F/P - Black; E - Municipal Trash Bin Stable for 28 days at room temperatur e. Expires in days from ____Date Albuterol No Notes: Memori a 0.833 MG/ML 01-11 (Same as: l / 10:08: Duoneb) [place] Ipratropium 00 [place] 0.167 MG/ML Inhalant Solution albuterol No Notes: [...] Roll in l Human 10:08: palms of [place] 00 hands gently; Do not shake vigorously . (Same as: NovoLOG) "single patient use only" WASTE: F/P - Black; E - Municipal Trash Bin Stable for 28 days at room temperatur e. Expires in days from ____Date Albuterol No Notes: Memori a 0.833 MG/ML 01-11 (Same as: l / 10:08: Duoneb) [place] Ipratropium 00 [place] 0.167 MG/ML Inhalant Solution albuterol No Notes: Memori a 90 mcg/inh 01-11 Same as: l inhalation 10:08: Ventolin Her [place] aerosol 00 HFA WASTE: Aerosol - Return to Pharmacy Calcium No 1,000 mL, Memor ia Chloride 01-11 Rate: 25 l 0.0014 10:08: ml/hr, [place] MEQ/ML / 00 Infuse Potassium over: 40 [...] l / 10:08: Duoneb) [place] Ipratropium 00 [place] 0.167 MG/ML Inhalant Solution albuterol No Notes: Memori a 90 mcg/inh 01-11 Same as: l inhalation 10:08: Ventolin Her [place] aerosol 00 HFA WASTE: Aerosol - Return to Pharmacy Calcium No 1,000 mL, Memor ia Chloride 01-11 Rate: 25 l 0.0014 10:08: ml/hr, [place] MEQ/ML / 00 Infuse Potassium over: 40 Chloride hr, Route: 0.004 IV, Dosing MEQ/ML / Weight Sodium 109.091 Chloride kg, Total 0.103 Volume: MEQ/ML / 1,000, Sodium Start Lactate date: 0.028 01/11/17 MEQ/ML 5:08:00 Injectable CDT, Solution Duration: 30 day, Stop date: 02/10/17 5:07:00 CDT Insulin, No Notes: Memoria Aspart, 01-11 Roll in l Human 10:08: palms of [place] 00 hands gently; Do not shake vigorously . (Same as: NovoLOG) "single patient use only" WASTE: F/P - Black; E - Municipal Trash Bin Stable for 28 days at room temperatur e. Expires in days from ____Date Albuterol No Notes: Memori a 0.833 MG/ML 01-11 (Same as: l / 10:08: Duoneb) [place] Ipratropium 00 [place] 0.167 MG/ML Inhalant Solution albuterol No Notes: Memori a 90 mcg/inh 01-11 Same as: l inhalation 10:08: Ventolin Her [place] aerosol 00 HFA WASTE: Aerosol - Return to Pharmacy Calcium No 1,000 mL, Memor ia Chloride 01-11 Rate: 25 l 0.0014 10:08: ml/hr, [place] MEQ/ML / 00 Infuse Potassium over: 40 [...] l / 10:08: Duoneb) [place] Ipratropium 00 [place] 0.167 MG/ML Inhalant Solution albuterol No Notes: Memori a 90 mcg/inh 01-11 Same as: l inhalation 10:08: Ventolin Her [place] aerosol 00 HFA WASTE: Aerosol - Return to Pharmacy Calcium No 1,000 mL, Memor ia Chloride 01-11 Rate: 25 l 0.0014 10:08: ml/hr, [place] MEQ/ML / 00 Infuse Potassium over: 40 [...] Memori a 0.833 MG/ML 01-11 (Same as: :: Duone) [place] Ipratropium 00 [place] 0.167 MG/ML Inhalant Solution albuterol No Notes: Memori a 90 mcg/inh 01-11 Same as: l inhalation 10:08: Ventolin Her [place] aerosol HFA WASTE: Aerosol - Return to Pharmacy Calcium No 1,000 mL, Memor ia Chloride 01-11 Rate: 25 l 0.0014 10:08: ml/hr, [place] MEQ/ML / 00 Infuse Potassium over: 40 Chloride hr, Route: 0.004 IV, Dosing MEQ/ML / Weight Sodium 109.091 Chloride kg, Total 0.103 Volume: MEQ/ML / 1,000, Sodium Start Lactate date: 0.028 01/11/17 MEQ/ML 5:08:00 Injectable CDT, Solution Duration: 30 day, Stop date: 02/10/17 5:07:00 CDT Insulin, No Notes: Memoria Aspart, 01-11 Roll in l Human 10:08: palms of [place] 00 hands gently; Do not shake vigorously . (Same as: NovoLOG) "single patient use only" WASTE: F/P - Black; E - Municipal Trash Bin Stable for 28 days at room temperatur e. Expires in days from ____Date Albuterol No Notes: Memori a 0.833 MG/ML 01-11 (Same as: : one) [place] Ipratropium 00 [place] 0.167 MG/ML Inhalant Solution albuterol No Notes: [...] Roll in l Human 10:08: palms of [place] 00 hands gently; Do not shake vigorously . (Same as: NovoLOG) "single patient use only" WASTE: F/P - Black; E - Municipal Trash Bin Stable for 28 days at room temperatur e. Expires in days from ____Date Albuterol No Notes: Memori a 0.833 MG/ML 01-11 (Same as: l / 10:08: Duoneb) [place] Ipratropium 00 [place] 0.167 MG/ML Inhalant Solution albuterol No Notes: Memori a 90 mcg/inh 01-11 Same as: l inhalation 10:08: Ventolin Her [place] aerosol 00 HFA WASTE: Aerosol - Return to Pharmacy Calcium No 1,000 mL, Memor ia Chloride 01-11 Rate: 25 l 0.0014 10:08: ml/hr, [place] MEQ/ML / 00 Infuse Potassium over: 40 [...] Memori a 0.833 MG/ML 01-11 (Same as: 10:08: Duone) [place] Ipratropium 00 [place] 0.167 MG/ML Inhalant Solution albuterol No Notes: Memori a 90 mcg/inh 01-11 Same as: l inhalation 10:08: Ventolin Her [place] aerosol HFA WASTE: Aerosol - Return to Pharmacy Calcium No 1,000 mL, Memor ia Chloride 01-11 Rate: 25 l 0.0014 10:08: ml/hr, [place] MEQ/ML / 00 Infuse Potassium over: 40 Chloride hr, Route: 0.004 IV, Dosing MEQ/ML / Weight Sodium 109.091 Chloride kg, Total 0.103 Volume: MEQ/ML / 1,000, Sodium Start Lactate date: 0.028 01/11/17 MEQ/ML 5:08:00 Injectable CDT, Solution Duration: 30 day, Stop date: 02/10/17 5:07:00 CDT Insulin, No Notes: Memoria Aspart, 01-11 Roll in l Human 10:08: palms of [place] 00 hands gently; Do not shake vigorously . (Same as: NovoLOG) "single patient use only" WASTE: F/P - Black; E - Municipal Trash Bin Stable for 28 days at room temperatur e. Expires in days from ____Date Albuterol No Notes: Memori a 0.833 MG/ML 01-11 (Same as: :08: Duone) [place] Ipratropium 00 [place] 0.167 MG/ML Inhalant Solution albuterol No Notes: Memori a 90 mcg/inh 01-11 Same as: l inhalation 10:08: Ventolin Her [place] aerosol HFA WASTE: Aerosol - Return to Pharmacy Calcium No 1,000 mL, Memor ia Chloride 01-11 Rate: 25 l 0.0014 10:08: ml/hr, [place] MEQ/ML / 00 Infuse Potassium over: 40 [...] l / 10:08: Duoneb) [place] Ipratropium 00 [place] 0.167 MG/ML Inhalant Solution albuterol No Notes: Memori a 90 mcg/inh 01-11 Same as: l inhalation 10:08: Ventolin Her [place] aerosol 00 HFA WASTE: Aerosol - Return to Pharmacy Calcium No 1,000 mL, Memor ia Chloride 01-11 Rate: 25 l 0.0014 10:08: ml/hr, [place] MEQ/ML / 00 Infuse Potassium over: 40 [...] a 0.833 MG/ML 01-11 (Same as: l 10:08: Duoneb) [place] Ipratropium 00 [place] 0.167 MG/ML Inhalant Solution albuterol No Notes: Memori a 90 mcg/inh 01-11 Same as: l inhalation 10:08: Ventolin Her [place] aerosol 00 HFA WASTE: Aerosol - Return to Pharmacy [place] No 1,000 mL, Memor ia Chloride 01-11 Rate: 25 l 0.0014 10:08: ml/hr, [place] MEQ/ML / 00 Infuse Potassium over: 40 Chloride hr, Route: 0.004 IV, Dosing MEQ/ML / Weight Sodium 109.091 Chloride kg, Total 0.103 Volume: MEQ/ML / 1,000, Sodium Start Lactate date: 0.01/11/17 MEQ/ML 5:08:00 Injectable CDT, Solution Duration: 30 day, Stop date: 02/10/17 5:07:00 CDT Insulin, No Notes: Memoria Aspart, 01-11 Roll in l Human 10:08: palms of [place] 00 hands gently; Do not shake vigorously . (Same as: NovoLOG) "single patient use only" WASTE: F/P - Black; E - Municipal Trash Bin Stable for 28 days at room temperatur e. Expires in days from ____Date Albuterol No Notes: Memori a 0.833 MG/ML 01-11 (Same as: 10:08: Duoneb) [place] Ipratropium 00 [place] 0.167 MG/ML Inhalant Solution albuterol No Notes: [...] Roll in l Human 10:08: palms of [place] 00 hands gently; Do not shake vigorously . (Same as: NovoLOG) "single patient use only" WASTE: F/P - Black; E - Municipal Trash Bin Stable for 28 days at room temperatur e. Expires in days from ____Date Albuterol No Notes: Memori a 0.833 MG/ML 01-11 (Same as: l / :08: Thiago) [place] Ipratropium 00 [place] 0.167 MG/ML Inhalant Solution albuterol No Notes: Memori a 90 mcg/inh 01-11 Same as: l inhalation 10:08: Ventolin Her [place] aerosol 00 HFA WASTE: Aerosol - Return to Pharmacy Calcium No 1,000 mL, Memor ia Chloride 01-11 Rate: 25 l 0.0014 10:08: ml/hr, [place] MEQ/ML / 00 Infuse Potassium over: 40 Chloride hr, Route: 0.004 IV, Dosing MEQ/ML / Weight Sodium 109.091 Chloride kg, Total 0.103 Volume: MEQ/ML / 1,000, Sodium Start Lactate date: 0.028 01/11/17 MEQ/ML 5:08:00 Injectable CDT, Solution Duration: 30 day, Stop date: 02/10/17 5:07:00 CDT Insulin, No Notes: Memoria Aspart, 8- Roll in l Human 10:08: palms of [place] 00 hands gently; Do not shake vigorously . (Same as: NovoLOG) "single patient use only" WASTE: F/P - Black; E - Municipal Trash Bin Stable for 28 days at room temperatur e. Expires in days from ____Date Albuterol No Notes: Memori a 0.833 MG/ML 01-11 (Same as: l / 10:08: Duoneb) [place] Ipratropium 00 [place] 0.167 MG/ML Inhalant Solution albuterol No Notes: Memori a 90 mcg/inh 01-11 Same as: l inhalation 10:08: Ventolin Her [place] aerosol 00 HFA WASTE: Aerosol - Return to Pharmacy [place] No 1,000 mL, Memor ia Chloride 01-11 Rate: 25 l 0.0014 10:08: ml/hr, [place] MEQ/ML / 00 Infuse Potassium over: 40 Chloride hr, Route: 0.004 IV, Dosing MEQ/ML / Weight Sodium 109.091 Chloride kg, Total 0.103 Volume: MEQ/ML / 1,000, Sodium Start Lactate date: 0.028 01/11/17 MEQ/ML 5:08:00 Injectable CDT, Solution Duration: 30 day, Stop date: 02/10/17 5:07:00 CDT Insulin, No Notes: Memoria Aspart, 01-11 Roll in l Human 10:08: palms of [place] 00 hands gently; Do not shake vigorously . (Same as: NovoLOG) "single patient use only" WASTE: F/P - Black; E - Municipal Trash Bin Stable for 28 days at room temperatur e. Expires in days from ____Date Albuterol No Notes: Memori a 0.833 MG/ML 01-11 (Same as: l / 10:08: Duoneb) [place] Ipratropium 00 [place] 0.167 MG/ML Inhalant Solution albuterol No Notes: [...] l / 10:08: Duoneb) [place] Ipratropium 00 [place] 0.167 MG/ML Inhalant Solution albuterol No Notes: [...] 01-11 (Same as: l / 10:08: Duoneb) [place] Ipratropium 00 [place] 0.167 MG/ML Inhalant Solution albuterol No Notes: Memori a 90 mcg/inh 01-11 Same as: l inhalation 10:08: Ventolin Her [place] aerosol HFA WASTE: Aerosol - Return to Pharmacy [place] No 1,000 mL, Memor ia Chloride 01-11 [...] Roll in l Human 10:08: palms of [place] 00 hands gently; Do not shake vigorously . (Same as: NovoLOG) "single patient use only" WASTE: F/P - Black; E - [place] Trash Bin Stable for 28 days at room temperatur e. Expires in days from ____Date Albuterol No Notes: Memori a 0.833 MG/ML 01-11 (Same as: l / 10:08: Duoneb) [place] Ipratropium 00 [place] 0.167 MG/ML Inhalant Solution albuterol No Notes: Memori a 90 mcg/inh 01-11 Same as: l inhalation 10:08: Ventolin Her [place] aerosol HFA WASTE: Aerosol - Return to Pharmacy [place] No 1,000 mL, Memor ia Chloride 01-11 Rate: 25 l 0.0014 10:08: ml/hr, [place] MEQ/ML / 00 Infuse Potassium over: 40 Chloride hr, Route: 0.004 IV, Dosing MEQ/ML / Weight Sodium 109.091 Chloride kg, Total 0.103 Volume: MEQ/ML / 1,000, Sodium Start Lactate date: 0.028 01/11/17 MEQ/ML 5:08:00 Injectable CDT, Solution Duration: 30 day, Stop date: 02/10/17 5:07:00 CDT Insulin, No Notes: Memoria Aspart, 01-11 Roll in l Human 10:08: palms of [place] 00 hands gently; Do not shake vigorously . (Same as: NovoLOG) "single patient use only" WASTE: F/P - Black; E - Municipal Trash Bin Stable for 28 days at room temperatur e. Expires in days from ____Date Albuterol No Notes: Memori a 0.833 MG/ML 01-11 (Same as: l / 10:08: Duoneb) [place] Ipratropium 00 [place] 0.167 MG/ML Inhalant Solution albuterol No Notes: Memori a 90 mcg/inh 01-11 Same as: l inhalation 10:08: Ventolin Her [place] aerosol 00 HFA WASTE: Aerosol - Return to Pharmacy Calcium No 1,000 mL, Memor ia Chloride 01-11 Rate: 25 l 0.0014 10:08: ml/hr, [place] MEQ/ML / 00 Infuse Potassium over: 40 Chloride hr, Route: 0.004 IV, Dosing MEQ/ML / Weight Sodium 109.091 Chloride kg, Total 0.103 Volume: MEQ/ML / 1,000, Sodium Start Lactate date: 0.028 01/11/17 MEQ/ML 5:08:00 Injectable CDT, Solution Duration: 30 day, Stop date: 02/10/17 5:07:00 CDT Insulin, No Notes: Memoria Aspart, 01-11 Roll in l Human 10:08: palms of [place] 00 hands gently; Do not shake vigorously . (Same as: NovoLOG) "single patient use only" WASTE: F/P - Black; E - Municipal Trash Bin Stable for 28 days at room temperatur e. Expires in days from ____Date Albuterol No Notes: Memori a 0.833 MG/ML 01-11 (Same as: l / 10:08: Duoneb) [place] Ipratropium 00 [place] 0.167 MG/ML Inhalant Solution albuterol No Notes: [...] Roll in l Human 10:08: palms of [place] 00 hands gently; Do not shake vigorously . (Same as: NovoLOG) "single patient use only" WASTE: F/P - Black; E - Municipal Trash Bin Stable for 28 days at room temperatur e. Expires in days from ____Date Albuterol No Notes: Memori a 0.833 MG/ML 01-11 (Same as: l / 10:08: Duoneb) [place] Ipratropium 00 [place] 0.167 MG/ML Inhalant Solution albuterol No Notes: Memori a 90 mcg/inh 01-11 Same as: l inhalation 10:08: Ventolin Her [place] aerosol HFA WASTE: Aerosol - Return to Pharmacy Calcium No 1,000 mL, Memor ia Chloride 01-11 Rate: 25 l 0.0014 10:08: ml/hr, [place] MEQ/ML / 00 Infuse Potassium over: 40 Chloride hr, Route: 0.004 IV, Dosing MEQ/ML / Weight Sodium 109.091 Chloride kg, Total 0.103 Volume: MEQ/ML / 1,000, Sodium Start Lactate date: 0.028 01/11/17 MEQ/ML 5:08:00 Injectable CDT, Solution Duration: 30 day, Stop date: 02/10/17 5:07:00 CDT Insulin, No Notes: Memoria Aspart, 8-08 Roll in l Human 10:08: palms of [place] 00 hands gently; Do not shake vigorously . (Same as: NovoLOG) "single patient use only" WASTE: F/P - Black; E - Municipal Trash Bin Stable for 28 days at room temperatur e. Expires in days from ____Date Albuterol No Notes: Memori a 0.833 MG/ML 01-11 (Same as: l / 10:08: Duoneb) [place] Ipratropium 00 [place] 0.167 MG/ML Inhalant Solution albuterol No Notes: [...] 01-11 (Same as: l / 10:08: Duoneb) [place] Ipratropium 00 [place] 0.167 MG/ML Inhalant Solution albuterol No Notes: [...] Roll in l Human 10:08: palms of [place] 00 hands gently; Do not shake vigorously . (Same as: NovoLOG) "single patient use only" WASTE: F/P - Black; E - Municipal Trash Bin Stable for 28 days at room temperatur e. Expires in days from ____Date Albuterol No Notes: Memori a 0.833 MG/ML 01-11 (Same as: l / 10:08: Duoneb) [place] Ipratropium 00 [place] 0.167 MG/ML Inhalant Solution albuterol No Notes: Memori a 90 mcg/inh 01-11 Same as: l inhalation 10:08: Ventolin Her [place] aerosol HFA WASTE: Aerosol - Return to Pharmacy Calcium No 1,000 mL, Memor ia Chloride 01-11 Rate: 25 l 0.0014 10:08: ml/hr, [place] MEQ/ML / 00 Infuse Potassium over: 40 Chloride hr, Route: 0.004 IV, Dosing MEQ/ML / Weight Sodium 109.091 Chloride kg, Total 0.103 Volume: MEQ/ML / 1,000, Sodium Start Lactate date: 0.028 01/11/17 MEQ/ML 5:08:00 Injectable CDT, Solution Duration: 30 day, Stop date: 02/10/17 5:07:00 CDT Insulin, No Notes: Memoria Aspart, 01-11 Roll in l Human 10:08: palms of [place] 00 hands gently; Do not shake vigorously . (Same as: NovoLOG) "single patient use only" WASTE: F/P - Black; E - Municipal Trash Bin Stable for 28 days at room temperatur e. Expires in days from ____Date Albuterol No Notes: Memori a 0.833 MG/ML 01-11 (Same as: l / 10:08: Duoneb) [place] Ipratropium 00 [place] 0.167 MG/ML Inhalant Solution albuterol No Notes: Memori a 90 mcg/inh 01-11 Same as: l inhalation 10:08: Ventolin Her [place] aerosol 00 HFA WASTE: Aerosol - Return to Pharmacy [facility] No 1,000 mL, Memor ia Chloride 01-11 [...] Roll in l Human 10:08: palms of [place] 00 hands gently; Do not shake vigorously . (Same as: NovoLOG) "single patient use only" WASTE: F/P - Black; E - Municipal Trash Bin Stable for 28 days at room temperatur e. Expires in days from ____Date Albuterol No Notes: Memori a 0.833 MG/ML 01-11 (Same as: l / :08: Duoneb) [place] Ipratropium 00 [place] 0.167 MG/ML Inhalant Solution albuterol No Notes: Memori a 90 mcg/inh 01-11 Same as: l inhalation 10:08: Ventolin Her [place] aerosol 00 HFA WASTE: Aerosol - Return to Pharmacy Calcium No 1,000 mL, Memor ia Chloride 01-11 Rate: 25 l 0.0014 10:08: ml/hr, [place] MEQ/ML / 00 Infuse Potassium over: 40 Chloride hr, Route: 0.004 IV, Dosing MEQ/ML / Weight Sodium 109.091 Chloride kg, Total 0.103 Volume: MEQ/ML / 1,000, Sodium Start Lactate date: 0.028 01/11/17 MEQ/ML 5:08:00 Injectable CDT, Solution Duration: 30 day, Stop date: 02/10/17 5:07:00 CDT Insulin, No Notes: Memoria Aspart, 01-11 Roll in l Human 10:08: palms of [place] 00 hands gently; Do not shake vigorously . (Same as: NovoLOG) "single patient use only" WASTE: F/P - Black; E - Municipal Trash Bin Stable for 28 days at room temperatur e. Expires in days from ____Date Albuterol No Notes: Memori a 0.833 MG/ML 01-11 (Same as: l / 10:08: Duoneb) [place] Ipratropium 00 [place] 0.167 MG/ML Inhalant Solution albuterol No Notes: [...] 01-11 (Same as: l / 10:08: Duoneb) [place] Ipratropium 00 [place] 0.167 MG/ML Inhalant Solution albuterol No Notes: Memori a 90 mcg/inh 01-11 Same as: l inhalation 10:08: Ventolin Her [place] aerosol 00 HFA WASTE: Aerosol - Return to Pharmacy Calcium No 1,000 mL, Memor ia Chloride 01-11 Rate: 25 l 0.0014 10:08: ml/hr, [place] MEQ/ML / 00 Infuse Potassium over: 40 Chloride hr, Route: 0.004 IV, Dosing MEQ/ML / Weight Sodium 109.091 Chloride kg, Total 0.103 Volume: MEQ/ML / 1,000, Sodium Start Lactate date: 0.028 01/11/17 MEQ/ML 5:08:00 Injectable CDT, Solution Duration: 30 day, Stop date: 02/10/17 5:07:00 CDT Insulin, No Notes: Memoria Aspart, 01-11 Roll in l Human 10:08: palms of [place] 00 hands gently; Do not shake vigorously . (Same as: NovoLOG) "single patient use only" WASTE: F/P - Black; E - Municipal Trash Bin Stable for 28 days at room temperatur e. Expires in days from ____Date Albuterol No Notes: Memori a 0.833 MG/ML 01-11 (Same as: l / :08: Duoneb) [place] Ipratropium 00 [place] 0.167 MG/ML Inhalant Solution albuterol No Notes: Memori a 90 mcg/inh 01-11 Same as: l inhalation 10:08: Ventolin Her [place] aerosol 00 HFA WASTE: Aerosol - Return to Pharmacy Calcium No 1,000 mL, Memor ia Chloride 01-11 Rate: 25 l 0.0014 10:08: ml/hr, [place] MEQ/ML / 00 Infuse Potassium over: 40 [...] 01-11 (Same as: l / 10:08: Duoneb) [place] Ipratropium 00 [place] 0.167 MG/ML Inhalant Solution albuterol No Notes: Memori a 90 mcg/inh 01-11 Same as: l inhalation 10:08: Ventolin Her [place] aerosol 00 HFA WASTE: Aerosol - Return to Pharmacy Calcium No 1,000 mL, [facility] Chloride 01-11 Rate: 25 l 0.0014 10:08: ml/hr, [place] MEQ/ML / 00 Infuse Potassium over: 40 Chloride hr, Route: 0.004 IV, Dosing MEQ/ML / Weight Sodium 109.091 Chloride kg, Total 0.103 Volume: MEQ/ML / 1,000, Sodium Start Lactate date: 0.028 01/11/17 MEQ/ML 5:08:00 Injectable CDT, Solution Duration: 30 day, Stop date: 02/10/17 5:07:00 CDT Insulin, No Notes: [facility] Aspart, 01-11 Roll in l Human 10:08: palms of [place] 00 hands gently; Do not shake vigorously . (Same as: NovoLOG) "single patient use only" WASTE: F/P - Black; E - Municipal Trash Bin Stable for 28 days at room temperatur e. Expires in days from ____Date Albuterol No Notes: Memori a 0.833 MG/ML 01-11 (Same as: l / 10:08: Duoneb) Kush Ipratropium 00 [place] 0.167 MG/ML Inhalant Solution albuterol No Notes: Memori a 90 mcg/inh 01-11 Same as: l inhalation 10:08: Ventolin Her lawson aerosol 00 HFA WASTE: Aerosol - Return to Pharmacy Calcium No 1,000 mL, Memor ia Chloride 01-11 Rate: 25 l 0.0014 10:08: ml/hr, [place] MEQ/ML / 00 Infuse Potassium over: 40 [...] 01-11 (Same as: l / 10:08: Duoneb) [place] Ipratropium 00 [place] 0.167 MG/ML Inhalant Solution albuterol No Notes: Memori a 90 mcg/inh 01-11 Same as: l inhalation 10:08: Ventolin Her lawson aerosol 00 HFA WASTE: Aerosol - Return to Pharmacy Calcium No 1,000 mL, Memor ia Chloride 01-11 Rate: 25 l 0.0014 10:08: ml/hr, [place] MEQ/ML / 00 Infuse Potassium over: 40 Chloride hr, Route: 0.004 IV, Dosing MEQ/ML / Weight Sodium 109.091 Chloride kg, Total 0.103 Volume: MEQ/ML / 1,000, Sodium Start Lactate date: 0.028 01/11/17 MEQ/ML 5:08:00 Injectable CDT, Solution Duration: 30 day, Stop date: 02/10/17 5:07:00 CDT Insulin, No Notes: Memoria Aspart, 01-11 Roll in l Human 10:08: palms of [place] 00 hands gently; Do not shake vigorously . (Same as: NovoLOG) "single patient use only" WASTE: F/P - Black; E - Municipal Trash Bin Stable for 28 days at room temperatur e. Expires in days from ____Date Albuterol No Notes: Memori a 0.833 MG/ML 01-11 (Same as: l / 10:08: Duoneb) Kush Ipratropium 00 [place] 0.167 MG/ML Inhalant Solution albuterol No Notes: Memori a 90 mcg/inh 01-11 Same as: l inhalation 10:08: Ventolin Her lawson aerosol 00 HFA WASTE: Aerosol - Return to Pharmacy Calcium No 1,000 mL, Memor ia Chloride 01-11 Rate: 25 l 0.0014 10:08: ml/hr, [place] MEQ/ML / 00 Infuse Potassium over: 40 [...] 01-11 (Same as: l / 10:08: Duoneb) [place] Ipratropium 00 [place] 0.167 MG/ML Inhalant Solution albuterol No Notes: [...] Roll in l Human 10:08: palms of [place] 00 hands gently; Do not shake vigorously . (Same as: NovoLOG) "single patient use only" WASTE: F/P - Black; E - Municipal Trash Bin Stable for 28 days at room temperatur e. Expires in days from ____Date Albuterol No Notes: Memori a 0.833 MG/ML 01-11 (Same as: l / :08: Duoneb) [place] Ipratropium 00 [place] 0.167 MG/ML Inhalant Solution albuterol No Notes: Memori a 90 mcg/inh 01-11 Same as: l inhalation 10:08: Ventolin Her lawson aerosol HFA WASTE: Aerosol - Return to Pharmacy Calcium No 1,000 mL, Memor ia Chloride 01-11 Rate: 25 l 0.0014 10:08: ml/hr, [place] MEQ/ML / 00 Infuse Potassium over: 40 Chloride hr, Route: 0.004 IV, Dosing MEQ/ML / Weight Sodium 109.091 Chloride kg, Total 0.103 Volume: MEQ/ML / 1,000, Sodium Start Lactate date: 0.028 01/11/17 MEQ/ML 5:08:00 Injectable CDT, Solution Duration: 30 day, Stop date: 02/10/17 5:07:00 CDT Insulin, No Notes: Memoria Aspart, 01-11 Roll in l Human 10:08: palms of [place] 00 hands gently; Do not shake vigorously . (Same as: NovoLOG) "single patient use only" WASTE: F/P - Black; E - Municipal Trash Bin Stable for 28 days at room temperatur e. Expires in days from ____Date Albuterol No Notes: Memori a 0.833 MG/ML 01-11 (Same as: l / 10:08: Duoneb) Kush Ipratropium 00 [place] 0.167 MG/ML Inhalant Solution albuterol No Notes: [...] as: l :: Duone) Kush Ipratropium 00 [place] 0.167 MG/ML Inhalant Solution albuterol No Notes: Memori a 90 mcg/inh 01-11 Same as: l inhalation 10:08: Ventolin Her lawson aerosol HFA WASTE: Aerosol - Return to Pharmacy Calcium No 1,000 mL, Memor ia Chloride 01-11 Rate: 25 l 0.0014 10:08: ml/hr, [place] MEQ/ML / 00 Infuse Potassium over: 40 [...] Memori a 0.833 MG/ML 01-11 (Same as: : one) [place] Ipratropium 00 [place] 0.167 MG/ML Inhalant Solution albuterol No Notes: [...] tab, PO, l tablet 14:59: Daily, 0 [place] 00 Refill(s) Vitamin B12 20170 Yes PO, Daily, Memoria 7-25 0 l [...] Daily, 0 Kush 00 Refill(s) Vitamin B12 20170 Yes PO, Daily, Memoria 7-25 0 l 14:59: Refill(s) amLODIPine Yes 10 mg = 1 Me moria 10 mg oral 7-25 tab, PO, l tablet 14:59: Daily, 0 [place] 00 Refill(s) Vitamin B12 2017-0 Yes PO, Daily, Memoria 7-25 0 l 14:59: Refill(s) amLODIPine Yes 10 mg = 1 Me moria 10 mg oral 7-25 tab, PO, l tablet 14:59: Daily, 0 [place] 00 Refill(s) Vitamin B12 2017-0 Yes PO, Daily, Memoria 7-25 0 l 14:59: Refill(s) amLODIPine Yes 10 mg = 1 Me moria 10 mg oral 7-25 tab, PO, l tablet 14:59: Daily, 0 [place] 00 Refill(s) Vitamin B12 2017-0 Yes PO, Daily, Memoria 7-25 0 l 14:59: Refill(s) amLODIPine 2016- Yes 10 mg = 1 Me moria [...] tab, PO, l tablet 14:59: Daily, 0 [place] 00 Refill(s) Vitamin B12 2017-0 Yes PO, [...] tab, PO, l tablet 14:59: Daily, 0 [place] 00 Refill(s) Vitamin B12 2017-0 Yes PO, Daily, Memoria 7-25 0 l 14:59: Refill(s) amLODIPine 2017-0 Yes 10 mg = 1 Me moria 10 mg oral 7-25 tab, PO, l tablet 14:59: Daily, 0 [place] 00 Refill(s) Vitamin B12 2017-0 Yes PO, [...] Memoria 7-25 0 l 14:59: Refill(s) amLODIPine 2016-0 Yes 10 mg = 1 Me moria 10 mg oral 7-25 tab, PO, l tablet 14:59: Daily, 0 Refill(s) Vitamin B12 2017-0 Yes PO, Daily, Memoria 7-25 0 l 14:59: Refill(s) amLODIPine 2017-0 Yes 10 mg = 1 Me moria 10 mg oral 7-25 tab, PO, l tablet 14:59: Daily, 0 [place] 00 Refill(s) Vitamin B12 2017-0 Yes PO, [...] tab, PO, l tablet 14:59: Daily, 0 [place] 00 Refill(s) Vitamin B12 2017-0 Yes PO, [...] tablet 14:59: Daily, 0 Refill(s) Vitamin B12 20170 Yes PO, Daily, Memoria 7-25 0 l 14:59: Refill(s) amLODIPine Yes 10 mg = 1 Me moria 10 mg oral 7-25 tab, PO, l tablet 14:59: Daily, 0 Refill(s) Vitamin B12 20170 Yes PO, Daily, Memoria 7-25 0 l 14:59: Refill(s) amLODIPine Yes 10 mg = 1 Me moria 10 mg oral 7-25 tab, PO, l tablet 14:59: Daily, 0 Refill(s) Vitamin B12 2017-0 Yes PO, Daily, Memoria 7-25 0 l 14:59: Refill(s) amLODIPine Yes 10 mg = 1 Me moria 10 mg oral 7-25 tab, PO, l tablet 14:59: Daily, 0 Refill(s) Vitamin B12 0 Yes PO, Daily, Memoria 7-25 0 l [...] PO, l tablet 14:59: Daily, 0 Kush Refill(s) Vitamin B12 2017-0 Yes PO, Daily, Memoria 7-25 0 l 14:59: Refill(s) amLODIPine Yes 10 mg = 1 Me moria 10 mg oral 7-25 tab, PO, l tablet 14:59: Daily, 0 [place] Refill(s) Vitamin B12 2017-0 Yes PO, Daily, Memoria 7-25 0 l 14:59: Refill(s) amLODIPine Yes 10 mg = 1 Me moria 10 mg oral 7-25 tab, PO, l tablet 14:59: Daily, 0 [place] Refill(s) Vitamin B12 2017-0 Yes PO, Daily, Memoria 7-25 0 l 14:59: Refill(s) amLODIPine Yes 10 mg = 1 Me moria 10 mg oral 7-25 tab, PO, l tablet 14:59: Daily, 0 [place] 00 Refill(s) Vitamin B12 20170 Yes PO, Daily, Memoria 7-25 0 l 14:59: Refill(s) amLODIPine Yes 10 mg = 1 Me moria 10 mg oral 7-25 tab, PO, l tablet 14:59: Daily, 0 [place] 00 Refill(s) Vitamin B12 2017-0 Yes PO, Daily, Memoria 7-25 0 l 14:59: Refill(s) amLODIPine Yes 10 mg = 1 Me moria 10 mg oral 7-25 tab, PO, l tablet 14:59: Daily, 0 [place] 00 Refill(s) Vitamin B12 2017-0 Yes PO, Daily, Memoria 7-25 0 l 14:59: Refill(s) Fish Oil Yes 1,200 mg = Mem oria 1200 mg 7-25 1 cap, PO, l oral 14:58: Daily, 0 [place] capsule Refill(s) metoprolol Yes 50 mg = 1 Me moria 50 mg oral 7-25 tab, PO, l tablet, 14:58: Bedtime, 0 Herm pedro extended Refill(s) release Centrum 2017 Yes 1 tab, PO, Jah jina Silver [...] 7-25 Daily, 0 l Men's 14:58: Refill(s) [place] 00 Fish Oil Yes 1,200 mg = [...] cap, PO, l oral 14:58: Daily, 0 [place] capsule 00 Refill(s) metoprolol Yes 50 mg = 1 Me moria 50 mg oral 7-25 tab, PO, l tablet, 14:58: Bedtime, 0 Herm pedro extended 00 Refill(s) release Centrum Yes 1 tab, PO, Jah jina Silver 7-25 Daily, 0 l Men's 14:58: Refill(s) [place] 00 Fish Oil Yes 1,200 mg = [...] cap, PO, l oral 14:58: Daily, 0 [place] capsule 00 Refill(s) metoprolol Yes 50 mg = 1 Me moria 50 mg oral 7-25 tab, PO, l tablet, 14:58: Bedtime, 0 Herm pedro extended 00 Refill(s) release Centrum Yes 1 tab, PO, Jah jina Silver 7-25 Daily, 0 l Men's 14:58: Refill(s) [place] 00 Fish Oil Yes 1,200 mg = Mem oria 1200 mg 7-25 1 cap, PO, l oral 14:58: Daily, 0 [place] capsule 00 Refill(s) metoprolol Yes 50 mg = 1 Me moria 50 mg oral 7-25 tab, PO, l tablet, 14:58: Bedtime, 0 Herm pedro extended 00 Refill(s) release Centrum Yes 1 tab, PO, Jah jina Silver 7-25 Daily, 0 l Men's 14:58: Refill(s) [place] 00 Fish Oil Yes 1,200 mg = [...] cap, PO, l oral 14:58: Daily, 0 [place] capsule 00 Refill(s) metoprolol Yes 50 mg [...] cap, PO, l oral 14:58: Daily, 0 [place] capsule 00 Refill(s) metoprolol Yes 50 mg = 1 Me moria 50 mg oral 7-25 tab, PO, l tablet, 14:58: Bedtime, 0 Herm pedro extended 00 Refill(s) release Centrum Yes 1 tab, PO, Jah jina Silver 7-25 Daily, 0 l Men's 14:58: Refill(s) [place] 00 Fish Oil Yes 1,200 mg = [...] cap, PO, l oral 14:58: Daily, 0 [place] capsule 00 Refill(s) metoprolol Yes 50 mg = 1 Me moria 50 mg oral 7-25 tab, PO, l tablet, 14:58: Bedtime, 0 Herm pedro extended 00 Refill(s) release Centrum Yes 1 tab, PO, Jah jina Silver 7-25 Daily, 0 l Men's 14:58: Refill(s) [place] 00 Centrum Yes 1 tab, PO, Jah [...] 7-25 Daily, 0 l Men's 14:58: Refill(s) [place] 00 Fish Oil Yes 1,200 mg = [...] cap, PO, l oral 14:58: Daily, 0 [place] capsule 00 Refill(s) metoprolol Yes 50 mg [...] cap, PO, l oral 14:58: Daily, 0 [place] capsule 00 Refill(s) metoprolol Yes 50 mg = 1 Me moria 50 mg oral 7-25 tab, PO, l tablet, 14:58: Bedtime, 0 Herm pedro extended 00 Refill(s) release Centrum Yes 1 tab, PO, Jah jina Silver 7-25 Daily, 0 l Men's 14:58: Refill(s) [place] 00 Fish Oil Yes 1,200 mg = Mem oria 1200 mg 7-25 1 cap, PO, l oral 14:58: Daily, 0 [place] capsule 00 Refill(s) metoprolol Yes 50 mg = 1 Me moria 50 mg oral 7-25 tab, PO, l tablet, 14:58: Bedtime, 0 Herm pedro extended 00 Refill(s) release Centrum Yes 1 tab, PO, Jah jina Silver 7-25 Daily, 0 l Men's 14:58: Refill(s) [place] 00 Fish Oil Yes 1,200 mg = [...] cap, PO, l oral 14:58: Daily, 0 [place] capsule 00 Refill(s) metoprolol Yes 50 mg [...] cap, PO, l oral 14:58: Daily, 0 [place] capsule 00 Refill(s) metoprolol Yes 50 mg [...] cap, PO, l oral 14:58: Daily, 0 [place] capsule 00 Refill(s) metoprolol Yes 50 mg [...] 7-25 Daily, 0 l Men's 14:58: Refill(s) [place] 00 Fish Oil Yes 1,200 mg = Mem oria 1200 mg 7-25 1 cap, PO, l oral 14:58: Daily, 0 [place] capsule 00 Refill(s) metoprolol Yes 50 mg = 1 Me moria 50 mg oral 7-25 tab, PO, l tablet, 14:58: Bedtime, 0 Herm pedro extended 00 Refill(s) release Centrum Yes 1 tab, PO, Jah jina Silver 7-25 Daily, 0 l Men's 14:58: Refill(s) [place] 00 Fish Oil Yes 1,200 mg = [...] 7-25 Daily, 0 l Men's 14:58: Refill(s) [place] 00 Fish Oil Yes 1,200 mg = Mem oria 1200 mg 7-25 1 cap, PO, l oral 14:58: Daily, 0 [place] capsule 00 Refill(s) metoprolol Yes 50 mg [...] 7-25 Daily, 0 l Men's 14:58: Refill(s) [place] 00 Fish Oil Yes 1,200 mg = Mem oria 1200 mg 7-25 1 cap, PO, l oral 14:58: Daily, 0 [place] capsule 00 Refill(s) metoprolol Yes 50 mg [...] cap, PO, l oral 14:58: Daily, 0 [place] capsule 00 Refill(s) metoprolol Yes 50 mg [...] 7-25 Daily, 0 l Men's 14:58: Refill(s) [place] 00 Fish Oil Yes 1,200 mg = Mem oria 1200 mg 7-25 1 cap, PO, l oral 14:58: Daily, 0 [place] capsule 00 Refill(s) metoprolol Yes 50 mg = 1 Me moria 50 mg oral 7-25 tab, PO, l tablet, 14:58: Bedtime, 0 Herm pedro extended 00 Refill(s) release Centrum 2017 Yes 1 tab, PO, Jah jina Silver 7-25 Daily, 0 l Men's 14:58: Refill(s) [place] 00 Fish Oil Yes 1,200 mg = Mem oria 1200 mg 7-25 1 cap, PO, l oral 14:58: Daily, 0 [place] capsule 00 Refill(s) metoprolol Yes 50 mg = 1 Me moria 50 mg oral 7-25 tab, PO, l tablet, 14:58: Bedtime, 0 Herm pedor extended 00 Refill(s) release Centrum Yes 1 tab, PO, Jah jina Silver 7-25 Daily, 0 l Men's 14:58: Refill(s) [place] 00 Fish Oil Yes 1,200 mg = Mem oria 1200 mg 7-25 1 cap, PO, l oral 14:58: Daily, 0 [place] capsule 00 Refill(s) metoprolol Yes 50 mg [...] cap, PO, l oral 14:58: Daily, 0 [place] capsule 00 Refill(s) metoprolol Yes 50 mg [...] cap, PO, l oral 14:58: Daily, 0 [place] capsule 00 Refill(s) metoprolol Yes 50 mg [...] cap, PO, l oral 14:58: Daily, 0 [place] capsule 00 Refill(s) Fish Oil Yes 1,200 mg = Mem oria 1200 mg 7-25 1 cap, PO, l oral 14:58: Daily, 0 [place] capsule 00 Refill(s) metoprolol Yes 50 mg [...] 7-25 Daily, 0 l Men's 14:58: Refill(s) [place] 00 Centrum Yes 1 tab, PO, Jah jina Silver 7-25 Daily, 0 l Men's 14:58: Refill(s) [place] 00 Fish Oil Yes 1,200 mg = Mem oria 1200 mg 7-25 1 cap, PO, l oral 14:58: Daily, 0 [place] capsule 00 Refill(s) metoprolol Yes 50 mg = 1 Me moria 50 mg oral 7-25 tab, PO, l tablet, 14:58: Bedtime, 0 Herm pedro extended 00 Refill(s) release Centrum Yes 1 tab, PO, Jah jina Silver 7-25 Daily, 0 l Men's 14:58: Refill(s) [place] 00 Polyethylen Polyethylen Yes KAMLA dispense [place] e Glycol e Glycol 01-01 HÉCTOR Dang one bottle [facility]ici 3350 Oral 3350 Oral [...] kg Systolic blood 2022-10-18 20:00:00 167 mm[Hg] [facility] Diastolic blood 2022-10-18 20:00:00 76 mm[Hg] [facility] Heart rate 2022-10-18 20:00:00 68 /min [facility] Respiratory rate 2022-10-18 20:00:00 16 /min [facility] Oxygen saturation in 2022-10-18 18:16:00 94 /min [facility] Arterial blood by Medical Ce nter Pulse oximetry Body temperature 2022-10-18 11:04:00 36.44 Maritza [facility] Body height 2022-10-18 11:04:00 165.1 cm [facility] Body weight 2022-10-18 11:04:00 100.562 kg [facility] BMI 2022-10-18 11:04:00 36.89 kg/m2 [facility] Systolic blood 2022-09-27 08:36:00 159 mm[Hg] [facility] Diastolic blood 2022-09-27 08:36:00 70 mm[Hg] [facility] Heart rate 2022-09-27 08:36:00 57 /min [facility] Body temperature 2022-09-27 08:36:00 36.94 Maritza [facility] Respiratory rate 2022-09-27 08:36:00 16 /min [facility] Body height 2022-09-27 08:36:00 167.6 cm [facility] Body weight 2022-09-27 08:36:00 102.059 kg [facility] BMI 2022-09-27 08:36:00 36.32 kg/m2 [facility] Oxygen saturation in 2022-09-27 08:36:00 99 /min [facility] Arterial blood by Medical Ce nter Pulse oximetry Systolic blood 2022-08-17 22:00:31 173 mm[Hg] Method is Hospital pressure Diastolic blood 2022-08-17 22:00:31 94 mm[Hg] [facility] pressure Heart rate 2022-08-17 22:00:31 88 /min [facility] Body temperature 2022-08-17 22:00:31 36.72 Maritza [facility] Respiratory rate 2022-08-17 22:00:31 15 /min [facility] Oxygen saturation in 2022-08-17 22:00:31 98 /min [facility] Arterial blood by Pulse oximetry Body height 2022-08-17 00:55:00 167.6 cm [facility] Body weight 2022-08-17 00:55:00 102.059 kg [facility] BMI 2022-08-17 00:55:00 36.32 kg/m2 [facility] BP Systolic 2017-06-27 13:07:00 167 mm[Hg] [facility] BP Diastolic 2017-06-27 13:07:00 94 mm[Hg] [facility] Height 2017-06-27 13:07:00 66 [in_us] [facility] Weight 2017-06-27 13:07:00 230 [lb_av] [facility] Body Mass Index 2017-06-27 13:07:00 37.12 kg/m2 [facility] Calculated Heart Rate 2017-06-27 13:07:00 90 /min [facility] Systolic (mm Hg) 2017-01-13 16:46:00 Jah rial [place] Diastolic (mm Hg) 2017-01-13 16:46:00 Mem orial [place] Heart Rate 2017-01-13 16:46:00 [facility] Respitory Rate 2017-01-13 16:46:00 Memori al [place] Temperature Oral (F) 2017-01-13 16:46:00 98.4 F [facility] [place] Respitory Rate 2017-01-13 12:36:00 Memori al [place] Systolic (mm Hg) 2017-01-13 12:36:00 Jah rial [place] Diastolic (mm Hg) 2017-01-13 12:36:00 Mem orial [place] Heart Rate 2017-01-13 12:36:00 [facility] [place] Temperature Oral (F) 2017-01-13 12:36:00 98.5 F [facility] [place] Systolic (mm Hg) 2017-01-13 08:35:00 Jah atkins [place] Diastolic (mm Hg) 2017-01-13 08:35:00 Mem orial [place] Respitory Rate 2017-01-13 08:35:00 Dawit al Kush Heart Rate 2017-01-13 08:35:00 [facility] Temperature Oral (F) 2017-01-13 08:35:00 98.7 F [facility] BMI Calculated 2017-01-11 16:43:00 Memori al [place] Weight 2017-01-11 16:43:00 [facility] [place] Height 2017-01-11 16:43:00 167.64 cm [facility] [place] BMI Calculated 2017-01-11 10:18:00 Memori al [place] Weight 2017-01-11 10:18:00 [facility] [place] Height 2017-01-11 10:18:00 167.64 cm [facility] [place] Weight 2016-12-28 14:36:00 [facility] [place] Height 2016-12-28 14:36:00 167.64 cm [facility] BMI Calculated 2016-12-28 14:36:00 Dawit al [place] Procedures Procedure Date / Time Performing Clinician Source Performed REPLACEMENT, AORTIC VALVE 2022-10-22 07:30:00 Samuel Downey CH, [facility] REPAIR, ANEURYSM, AORTA, 2022-10-22 07:30:00 Samuel Downey [facility] THORACIC, ASCENDING Center ABORH, MANUAL 2022-10-18 12:47:00 Marc Cunningham [facility] ANGIOGRAM, CORONARY, WITH 2022-10-18 10:45:00 LucasAntonia Hutchison [facility] LEFT HEART [facility] CATHETERIZATION AND LEFT VENTRICULOGRAM, WITH PTCA IF INDICATED CARDIAC CATH REPORT - 2022-10-18 00:00:00 Provider, Default [facility] [place] VASCULAR DIAGRAM -SCAN 2022-10-18 00:00:00 Provider, Default [facility] XR CHEST 2 VIEWS 2022-10-15 11:24:00 Wendie Talley [facility] BASIC METABOLIC PANEL 2022-10-15 11:10:00 Wendie Talley [facility] CBC W/PLT COUNT & AUTO 2022-10-15 11:10:00 Aric [facility] HEMOGLOBIN A1C 2022-10-15 11:10:00 [facility] HEPATITIS B PANEL 2022-10-15 11:10:00 [facility] HEPATITIS C ANTIBODY 2022-10-15 11:10:00 [place] [facility] HC LAB HIV-1 AG W/HIV-1&2 2022-10-15 11:10:00 [place] [facility] AB Center LACTATE DEHYDROGENASE 2022-10-15 11:10:00 [facility] [place] ALBUMIN 2022-10-15 11:10:00 [facility] ALKALINE PHOSPHATASE 2022-10-15 11:10:00 [place] [facility] BILIRUBIN, ADULT TOTAL 2022-10-15 11:10:00 [facility] BILIRUBIN, DIRECT 2022-10-15 11:10:00 [facility] AST (SGOT) 2022-10-15 11:10:00 [facility] ALT (SGPT) 2022-10-15 11:10:00 [facility] PROTEIN, TOTAL 2022-10-15 11:10:00 [facility] PROTHROMBIN TIME/INR 2022-10-15 11:10:00 [facility] TYPE AND SCREEN, 2022-10-15 11:10:00 [facility] AUTOMATED Center CBC W/PLT COUNT & AUTO 2022-10-15 11:10:00 [facility] APTT 2022-10-15 11:10:00 [facility] URINALYSIS W/ MICROSCOPIC 2022-10-15 11:00:00 [facility] ECG 12-LEAD 2022-10-15 10:31:18 Unknown, Hl7 Doctor [facility] ECG 12-LEAD 2022-10-15 10:31:18 Unknown, Hl7 Doctor [facility] TROPONIN T 2022-08-17 20:36:00 Adali Arrington spital Jeff CV CARDIAC PET STRESS 2022-08-17 17:49:41 [facility] TEST CV CARDIAC PET MYOCARDIAL 2022-08-17 17:49[facility] VALVE ASSESSMENT W 2022-08-17 15:59[facility] 2022-08-17 07:44:00 Adali Arrington spital Jeff CBC WITH PLATELET AND 2022-08-17 07:44:00 Aj [facility] DIFFERENTIAL BASIC METABOLIC PANEL 2022-08-17 07:44:00 Aj [facility] ESTIMATED GFR 2022-08-17 07:44:00 Tanvir Arrington [facility] ECG ED PRELIMINARY 2022-08-17 02:45:35 Aj [facility] INTERPRETATION Jeff ECG 12-LEAD 2022-08-17 01:29:20 Adali Arrington spital Jeff ESTIMATED GFR 2022-08-17 01:21:00 [facility] AND 2022-08-17 01:21:00 [facility] PROTHROMBIN TIME WITH INR 2022-08-17 01:21:00 Adali Arrington [facility] PARTIAL THROMBOPLASTIN 2022-08-17 01:21:00 [facility] Jeff COMPREHENSIVE METABOLIC 2022-08-17 01:21:00 Aj [facility] PANEL [facility] TROPONIN T 2022-08-17 01:21:00 [facility] NAT[facility] PEPTIDE 2022-08-17 01:21:00 [facility] 3 VWS RIGHT 2017-08-18 00:00:00 [facility] [id number] Colon operation 2012-06-06 00:00:00 [facility] Her lawson Tonsillectomy 1972-06-06 00:00:00 [facility] Her lawson History of knee [facility] arthroscopy [...] Cessation Counseling and Screening (12+)] Future Scheduled 2023-03-24 Screening for [facility] Test 16:06:30 malignant neoplasm of colon (procedure) [code = 329195678] Future Scheduled 2023-03-24 Screening for [facility] Test 16:06:30 malignant neoplasm of colon (procedure) [code = 827253402] Future Scheduled 2023-03-24 Screening for [facility] Test 16:06:30 malignant neoplasm of colon (procedure) [code = 862290876] Future Scheduled 2023-03-24 COVID-19 VACCINE (#1) [facility] Test 16:06:30 [code = COVID-19 VACCINE (#1)] Future Scheduled 2023-03-24 Pneumococcal Vaccine: [facility] Test 16:06:30 Pediatrics (0 to 5 Years) and At-Risk Patients (6 to 64 Years) (1 - PCV) [code = Pneumococcal Vaccine: Pediatrics (0 to 5 Years) and At-Risk Patients (6 to 64 Years) (1 - PCV)] Future Scheduled 2023-03-24 Hepatitis C screening [facility] Test 16:06:30 (procedure) [code = 231529930] Future Scheduled 2023-03-24 Screening for [facility] Test 16:06:30 malignant neoplasm of colon (procedure) [code = 345590978] Future Scheduled 2023-03-24 Screening for [facility] Test 16:06:30 malignant neoplasm of colon (procedure) [code = 781548284] Future Scheduled 2023-03-24 SHINGLES VACCINES (1 Met [facility] Test 16:06:30 of 2) [code = SHINGLES VACCINES (1 of 2)] Future Scheduled 2023-03-24 INFLUENZA VACCINE (#1) [facility] Test 16:06:30 [code = INFLUENZA VACCINE (#1)] Future Scheduled 2023-03-24 RSV VACCINES > 60 YR Met [facility] Test 16:06:30 (1 - 1-dose 60+ series) [code = RSV VACCINES > 60 YR (1 - 1-dose 60+ series)] Future Scheduled 2023-02-17 Screening for [facility] Test 16:00:26 malignant neoplasm of colon (procedure) [code = 315767277] Future Scheduled 2023-02-17 Screening for [facility] Test 16:00:26 malignant neoplasm of colon (procedure) [code = 397571865] Future Scheduled 2023-02-17 Screening for [facility] Test 16:00:26 malignant neoplasm of colon (procedure) [code = 937804021] Future Scheduled 2023-02-17 COVID-19 VACCINE (#1) [facility] Test 16:00:26 [code = COVID-19 VACCINE (#1)] Future Scheduled 2023-02-17 Pneumococcal Vaccine: [facility] Test 16:00:26 Pediatrics (0 to 5 Years) and At-Risk Patients (6 to 64 Years) (1 - PCV) [code = Pneumococcal Vaccine: Pediatrics (0 to 5 Years) and At-Risk Patients (6 to 64 Years) (1 - PCV)] Future Scheduled 2023-02-17 Hepatitis C screening [facility] Test 16:00:26 (procedure) [code = 788806522] Future Scheduled 2023-02-17 Screening for [facility] Test 16:00:26 malignant neoplasm of colon (procedure) [code = 713410131] Future Scheduled 2023-02-17 Screening for [facility] Test 16:00:26 malignant neoplasm of colon (procedure) [code = 241637157] Future Scheduled 2023-02-17 SHINGLES VACCINES (1 Met [facility] Test 16:00:26 of 2) [code = SHINGLES VACCINES (1 of 2)] Future Scheduled 2023-02-17 INFLUENZA VACCINE (#1) [facility] Test 16:00:26 [code = INFLUENZA VACCINE (#1)] Future Scheduled 2023-02-11 Screening for [facility] Test 09:58:10 malignant neoplasm of colon (procedure) [code = 725509524] Future Scheduled 2023-02-11 Screening for [facility] Test 09:58:10 malignant neoplasm of colon (procedure) [code = 635750504] Future Scheduled 2023-02-11 [facility] Test 09:58:10 malignant neoplasm of colon (procedure) [code = 839144835] Future Scheduled 2023-02-11 COVID-19 [facility]ACCINE [facility] 09:58:10 [code = COVID-19 VACCINE (#1)] Future Scheduled 2023-02-11 [facility]neum[facility]: [facility] 09:58:10 Pediatrics (0 to 5 Years) and At-Risk Patients (6 to 64 Years) (1 - PCV) [code = Pneumococcal Vaccine: Pediatrics (0 to 5 Years) and At-Risk Patients (6 to 64 Years) (1 - PCV)] Future Scheduled 2023-02-11 Hepatitis C screening [facility] Test 09:58:10 (procedure) [code = 680523932] Future Scheduled 2023-02-11 [facility] Test 09:58:10 malignant neoplasm of colon (procedure) [code = 491951200] Future Scheduled 2023-02-11 [facility] Test 09:58:10 malignant neoplasm of colon (procedure) [code = 615110300] Future Scheduled 2023-02-11 SHINGLES [facility]ACCINES ([facility] 09:58:10 of 2) [code = SHINGLES VACCINES (1 of 2)] Future Scheduled 2023-02-11 [facility]10 [code = INFLUENZA VACCINE (#1)] Future Scheduled 2023-02-[address] [facility] Test 00:00:00 (Season Ended) [code = [facility] al Center INFLUENZA VACCINE (Season Ended)] Future Scheduled 2023-02-[address] [facility] Test 00:00:00 (Season Ended) [code = Medic al Center INFLUENZA VACCINE (Season Ended)] Future Scheduled 2022-10-18 COVID-19 VACCINE (#1) [facility] Test 12:19:25 [code = COVID-19 VACCINE (#1)] Future Scheduled 2022-10-18 Pneumococcal Vaccine: [facility] Test 12:19:25 Pediatrics (0 to 5 Years) and At-Risk Patients (6 to 64 Years) (1 - PCV) [code = Pneumococcal Vaccine: Pediatrics (0 to 5 Years) and At-Risk Patients (6 to 64 Years) (1 - PCV)] Future Scheduled 2022-10-18 Hepatitis C screening [facility] Test 12:19:25 (procedure) [code = 547284328] Future Scheduled 2022-10-18 COLONOSCOPY SCREENING [facility] Test 12:19:25 [code = COLONOSCOPY SCREENING] Future Scheduled 2022-10-18 SHINGLES VACCINES (1 Met [facility] Test 12:19:25 of 2) [code = SHINGLES VACCINES (1 of 2)] Future Scheduled 2022-10-18 [facility]ACCINE [facility] Test 12:19:25 [code = INFLUENZA VACCINE] Future Scheduled 2022-06-06 DEPRESSION SCREENING [facility] Test 00:00:00 (12+) [code = [facility] DEPRESSION SCREENING (12+)] Future Scheduled 2022-05-25 COVID-19 VACCINE (#1) [facility] Test 13:56:48 [code = COVID-19 VACCINE (#1)] Future Scheduled 2022-05-25 Pneumococcal Vaccine: [facility] Test 13:56:48 Pediatrics (0 to 5 Years) and At-Risk Patients (6 to 64 Years) (1 - PCV) [code = Pneumococcal Vaccine: Pediatrics (0 to 5 Years) and At-Risk Patients (6 to 64 Years) (1 - PCV)] Future Scheduled 2022-05-25 Hepatitis C screening [facility] Test 13:56:48 (procedure) [code = 048100171] Future Scheduled 2022-05-25 COLONOSCOPY SCREENING [facility] Test 13:56:48 [code = COLONOSCOPY SCREENING] Future Scheduled 2022-05-25 SHINGLES VACCINES (1 Met [facility] Test 13:56:48 of 2) [code = SHINGLES VACCINES (1 of 2)] Future Scheduled 2022-05-25 INFLUENZA VACCINE [facility] Test 13:56:48 [code = INFLUENZA VACCINE] [...] [facility] Test 00:00:00 (procedure) [code = [facility] 53037899] Future Scheduled 1999-12-[address] [facility] Test 00:[facility]:00 (procedure) [code = [facility] 84199581] Future Scheduled 1983-12-20 DTAP/TDAP/TD VACCINES [facility] [...] [facility] l Center colon (procedure) [code = 000637757] Future Scheduled [address] [facility] malignant neoplasm of [facility] colon (procedure) [code = 341176794] Future Scheduled [address] [facility] 00:00:00 malignant neoplasm of [facility] colon (procedure) [code = 258626966] Future Scheduled [address] [facility] 00:00:00 malignant neoplasm of [facility] colon (procedure) [code = 172888186] Future Scheduled 1965 S[facility]] Medical Lisa r Future Scheduled [address] [facility] Test 00:00:00 (combo) [code = CT Medical C enter Colonography (combo)] Future Scheduled [address] [facility] Test 00:00:00 malignant neoplasm of [facility] Center colon (procedure) [code = 777775560] Future Scheduled [address] [facility] Test 00:00:00 malignant neoplasm of [facility] Center colon (procedure) [code = 691406140] Future Scheduled [address] [facility] Test 00:00:00 malignant neoplasm of [facility] Center colon (procedure) [code = 060597273] Future Scheduled [address] [facility] Test 00:00:00 malignant neoplasm of [facility]ica [facility] Center colon (procedure) [code = 158774943] Future Scheduled 1965 [facility]] Medical Arlinee r Encounters Start End Encounter Admission Attending Care Care Encounter Source Date/Time Date/Time Type Type Clinicians Facility Department ID 2023-02-23 Outpatient Arrington, [facility] [id number] Common 14:07:01 Joshua [id number] [facility] 2023-02-22 Outpatient Arrington, [facility] [id number] Common 11:57:00 Joshua [id number] [facility] 2023-02-14 Outpatient [facility], [facility] [id number] Common 11:11:00 Joshua 81809 [facility] 2023-02-10 Inpatient ER NEASON, [facility] [id number] [facility] 15:34:09 [facility] 2023-02-08 Inpatient ER NEASON, [facility]H [facility] [id number] [facility] 15:22:41 [facility] 2023-02-08 Inpatient ER NEASON, [facility]H [facility] [id number] [facility]H 15:22:32 [facility] 2023-02-08 Inpatient ER NEASON, [facility]H [facility] [id number] [facility]H 15:22:20 [facility] 2023-02-04 Inpatient ER SUNESARA, [facility]H [facility]H [id number] SLEH 15:39:12 JUSTIN 2023-01-26 Outpatient Arrington, [facility] [id number] Common 13:18:00 [facility] [address] [facility] 2023-01-19 [facility] [id number] Common 08:34:00 [facility] 31149 [facility] 2022-12-01 Inpatient ER KALDIS, SLEH [facility] [id number] SLEH 12:35:48 FARNAZ 2022-12-01 Inpatient ER YUDI, [facility]H [facility] [id number] [facility]H 04:05:18 [place] 2022-11-30 Inpatient ER STALZER, SLEH SLEH [id number] SLEH 11:14:50 ARABELLA 2022-11-30 Inpatient ER YUDI, SLEH [facility] [id number] SLEH 05:50:02 [place] 2022-11-29 Inpatient ER YUDI, [facility]H [facility] [id number] SLEH 06:13:55 [place] 2022-11-28 Inpatient ER YUDI, SLEH SLEH [id number] SLEH 05:22:17 [place] 2022-11-27 Inpatient ER YUDI, SLEH SLEH [id number] SLEH 11:22:39 [place] 2022-07-27 Outpatient Quiñonez, [facility] [id number] Common 09:13:04 Phuong 556[address] [facility] 2023-02-02 2023-02-11 Inpatient ER NEASON, [facility]H [facility] [id number] SLEH 13:53:00 18:12:00 [facility] 2023-02-04 2023-02-04 Inpatient ER SNOW GEE SLE SLE [id number] SLEH 17:09:13 00:00:00 2023-02-02 2023-02-02 Emergency ER GREGOR SLEH SLEH [id number] SLEH 19:26:10 19:26:10 [facility] 2023-02-02 2023-02-02 Emergency ER GREGOR, SLE SLE [id number] SLEH 14:37:45 14:37:45 CHANTE 2023-02-02 2023-02-02 Outpatient LUCAS TALLEY, SLSL SLSL [id number] [facility] 00:00:00 00:00:00 WENDIE 2023-01-28 2023-01-28 Outpatient LUCAS TALLEY, SLSL SLSL [id number] SLSL 00:00:00 00:00:00 WENDIE 2023-01-13 2023-01-13 Outpatient LUCAS CLEMENTE, [facility] SLSL [id number] SLSL 16:00:01 23:59:00 KALA 2023-01-13 2023-01-13 [facility] [id number] SLSL 00:00:00 00:00:00 KALA 2022-11-26 2022-12-01 Inpatient ER ERIN LADD Emergency [id number] SLEH 12:16:00 18:19:00 FARNAZ 2022-11-26 2022-11-26 Emergency ER JOSÉ MIGUEL SLE SLE [id number] SLEH 12:32:53 12:32:53 KALA 2022-11-26 2022-11-26 Inpatient ER JULEE SLEMelquiades SLE [id number] SLEH 18:55:21 00:00:00 FARNAZ 2022-11-22 2022-11-22 Outpatient EL SLE SLE [id number] SLEH 10:06:39 23:59:00 2022-11-22 2022-11-22 Outpatient LUCAS TALLEY SLE SLE [id number] SLEH 07:26:10 07:26:10 WENDIE 2022-11-22 2022-11-22 Outpatient EL SLE SLE [id number] SLEH 00:00:00 00:00:00 2022-11-18 2022-11-18 Outpatient LUCAS CLEMENTE SLSValente SLSL [id number] SLSL 15:41:06 23:59:00 KALA 2022-11-04 2022-11-05 [facility] 2 [id number] SLEH 02:07:00 18:51:00 2022-10-22 2022-10-30 Inpatient SAMUEL MORSE [facility] Surgery [id number] SLEH 05:40:00 15:42:00 2022-10-18 2022-10-18 [facility] [id number] 10:51:00 20:11:00 Encounter [facility] 2022-10-18 2022-10-18 Outpatient THONY [facility] Surgery [id number] SLE 10:51:00 20:11:00 [facility] 2022-10-18 2022-10-18 Surgery [facility] [id number] 16:20:00 18:15:[address] [facility] 2022-10-15 2022-10-15 [facility] Samuel Downey [facility] [id number] 11:14:28 23:59:00 Encounter [facility] 2022-10-15 2022-10-15 Outpatient SAMUEL MORSE [facility] 8 [id number] SLEH 11:14:28 23:59:00 2022-10-15 2022-10-15 Office Samuel Morse [facility] [id number] [id number] 10:30:00 10:45:00 Visit L[facility] 2022-10-15 2022-10-15 Outpatient SLE SLE [id number] SLE 10:21:55 10:21:55 2022-10-15 2022-10-15 [facility] [id number] 00:00:00 00:00:00 [facility] 2022-10-14 2022-10-14 Outpatient SLE SLE [id number] SLEH 09:04:36 23:59:00 2022-10-14 2022-10-14 [facility] [id number] 08:10:00 23:59:00 Encounter [facility] 2022-10-14 2022-10-14 Travel [facility] [id number] [facility] 00:00:00 00:00:00 [facility] 2022-09-27 2022-09-27 Office Samuel Downey Tony [facility] [id number] 08:15:00 08:45:00 Visit Karen Monteiro [facility] 2022-09-27 2022-09-27 Outpatient LUCAS JAYDEN, [facility] [id number] SLE 08:12:54 08:12:54 KAREN 2022-09-27 2022-09-27 Outpatient SAMUEL MORSE [facility] [id number] SLE 00:00:00 00:00:00 2022-09-22 2022-09-22 Outpatient SAMUEL MORSE [facility] 2057 [id number] SLE 00:00:00 00:00:00 2022-09-20 2022-09-20 Outpatient SAMUEL MORSE [facility] [id number] SLE 00:00:00 00:00:00 2022-09-09 2022-09-09 Royer Vigil [facility] [id number] 00:00:00 00:00:00 Only B [facility] 2022-08-17 2022-08-17 [facility], .2.840.1 [id number] Methodi 11:44:02 23:59:00 Encounter Kala Trinidad50.1.[address] 3.430.2.7 Hospit a .3.776440 l .8 2022-08-17 2022-08-17 [facility], 2.840.1 [id number] Methodi 11:44:02 23:59:00 Encounter Kala Heredia 10963.1.[address] 3.430.2.7 Hospit a .3.564952 l .8 2022-08-16 2022-08-17 Emergency Adali Arrington 1.2.84 0.1 [id number] Methodi 19:56:00 18:17:00 [place]. [address] 3.430.2.7 Hospit a .3.298338 l .8 2022-08-16 2022-08-17 Emergency Adali Arrington 1.2.84 0.1 [id number] Methodi 19:56:00 18:17:00 Tan[place]. [address] 3.430.2.7 Hospit a .3.217722 l .8 2020-01-16 2020-01-16 [facility] [id number] [place] 00:00:00 00:00:00 SARANYA [address] 2017-08-18 2017-08-18 [facility] Greater [id number] [place] 13:45:00 13:45:00 t; Pratik POTTS i, M.D. Orthopedics an rupinder POTTS M.D. 2017-07-22 2017-07-22 [facility] [id number] [place] 09:00:00 09:00:00 t; KALA DOUGLAS Phys ici MICHAEL, M.D. ans M.D. 2017-06-27 2017-06-27 [facility] [id number] [place] 08:30:00 08:30:00 t; Alton MEDEIROS [facility] Ph [facility] rahda MEDEIROS M.D. 2017-05-06 2017-05-06 [facility] [id number] [place] 09:15:00 09:15:00 t; KALA DOUGLAS Phys ici MICHAEL, M.D. ans M.D. 2017-04-08 2017-04-08 Appointmen [facility] RBJ - [id number] [place] 10:45:00 10:45:00 t; KALA DOUGLAS [place] [facility] [place] Smart M.D. 2017-03-24 2017-03-24 [facility] [id number] [place] 09:30:00 09:30:00 t; KALA DOUGLAS Phys ici MICHAEL, M.D. ans M.D. 2017-03-21 2017-03-21 [facility] UTP [id number] UT 14:15:00 14:15:00 t; KALA DOUGLAS Phys ici MICHAEL, M.D. ans M.Demetrice 2017-03-07 2017-03-07 [facility] UTP [id number] [place] 13:45:00 13:45:00 t; KALA DOUGLAS Phys ici MICHAEL, M.D. ans M.Demetrice 2017-02-21 2017-02-21 [facility] ED DOUGLAS UTP [id number] [place] 13:00:00 13:00:00 t; KALA DOUGLAS Phys ici MICHAEL, M.D. ans M.Demetrice 2017-01-24 2017-01-24 [facility] UTP [id number] UT 15:15:00 15:15:00 t; KALA DOUGLAS Phys ici MICHAEL, M.D. ans M.Demetrice 2017-01-11 2017-01-13 [facility] [id number] Memoria 10:05:20 19:50:00 r [place] 00 [place] Guillermina 2017-01-11 2017-01-13 [facility] [id number] Memoria 10:05:20 19:50:00 r [place] 00 [place] Guillermina 2017-01-11 2017-01-13 Outpatient Stella, MHSL SL [id number] 05:05:20 14:50:00 Kala William 2017-01-11 2017-01-11 [facility] DOUGLAS UTP [id number] [place] 07:30:00 07:30:00 t; KALA DOUGLAS Phys ici MICHAEL, M.D. ans M.Demetrice 2017-01-06 2017-01-06 [facility] DOUGLAS UTP [id number] UT 16:00:00 16:00:00 t; KALA DOUGLAS Phys ici MICHAEL, M.D. ans M.Demetrice 2016-11-18 2016-11-18 [facility] ED DOUGLAS UTP [id number] UT 14:00:00 14:00:00 t; KALA DOUGLAS Phys ici MICHAEL, M.D. ans M.Demetrice 2016-01-27 2016-01-27 [facility] CUPIC, ED UTP [id number] UT 10:45:00 10:45:00 t; KAMLA ANAYA M.D. Physici ZORAN, ans M.D. 2016-01-02 2016-01-02 [facility] CUPIC, UTP UTP [id number] UT 08:30:00 08:30:00 t; KAMLA ANAYA M.D. Physici ZORAN, ans M.D. 2015-12-29 2015-12-29 [facility] CUPIC, ED UTP [id number] UT 08:00:00 08:00:00 t; KAMLA ANAYA M.D. Physici ZORAN, ans M.D. 2015-12-15 2015-12-15 [facility] CUPIC, ED UTP [id number] UT 11:30:00 11:30:00 t; KAMLA ANAYA M.D. Physici ZORAN, ans M.D. 2015-11-10 2015-11-10 [facility] CUPIC, ED UTP [id number] UT 15:15:00 15:15:00 t; KAMLA ANAYA M.D. Physici ZORAN, ans M.D. 2015-09-23 2015-09-23 [facility] CUPIC, ED UTP [id number] UT 11:30:00 11:30:00 t; KAMLA ANAYA M.D. Physici ZORAN, ans M.D. 2015-08-20 2015-08-20 [facility] CUPIC, ED UTP [id number] UT 08:00:00 08:00:00 t; KAMLA ANAYA [...] s not applicable for dialysis nikolas gordon Lawn Care Worker ID - EMCBC W/PLT COUNT & AUTO [id number] 04:07:10 Test Item Value Reference Range Interpretation [...] 2801) XR CHEST 1 VIEW PORTABLE / [id number] 16:36:05 [facility] : 1965 Sex: MEXAMINATION: XR [...] focal pneumonia or airspace edema.Electronically SignedBy: Dustin Wilsong09 16:38 CDTWorkstation Name: [id number] 07:00:10 Test Item Value Reference Range Interpretation Comments CULTURE (BEAKER) (test No growth in 5 days code = 1095) The specimen volume collected for this blood culture was below the optimum (10 mL per bottle or 20 mL total). Use of lower volumes may adversely affect recovery and/or detection times of some organisms.BLOOD [id number] 07:00:10 Test Item Value Reference Range Interpretation [...] (test code = 697) EGFR (BEAKER) 99 Interpretati on of eGFR (test code = mL/min/1.73 values [...] not appl icable for dialysis patien ts Lawn Care Worker ID - EMCBC W/PLT COUNT & AUTO [id number] 05:44:48 Test Item Value Reference Range Interpretation [...] (BEAKER) (test code = 2801) BASIC METABOLIC [id number] 05:47:45 Test Item Value Reference Range Interpretation [...] not appl icable for dialysis patien ts Lawn Care Worker ID - [id number] 05:47:45 Test Item Value Reference Range Interpretation Comments MAGNESIUM (BEAKER) (test code = 2.0 mg/dL 1.6-2.6 627) Lawn Care Worker ID - EMCBC W/PLT COUNT & AUTO [id number] 05:07:54 Test Item Value Reference Range Interpretation [...] PERCENT (BEAKER) (test code = 2801) BLOOD [id number] 10:05:42 Test Item Value Reference Range Interpretation Comments CULTURE A From Anaerobic Bottle (BEAKER) (test Only Same org anism has code = 1095) been isolated f rom cultures(s) of the same body site and collection date . Repeat identifi cation and susceptibil ity testing perform ed only after consultat ion with the [facility] microbiology laboratory.Refe r to previous cultur e of - Streptococcus sanguinis GRAM STAIN From anaerobic RESULT (BEAKER) bottle only: gram (test code = positive cocci in 1123) chains The specimen volume collected for this blood culture was below the optimum (10 mL per bottle or 20 mL total). Use of lower volumes may adversely affect recovery and/or detection times of some organisms.BLOOD [id number] 10:05:10 Test Item Value Reference Interpretation Comments Range CULTURE (BEAKER) STREPTOCOCCUS A From Anaer obic Bottle (test code = SANGUINIS Only Streptococ cus 1095) sanguinisVirida ns group streptoco ccus Ceftriaxone See_Comment S [Automated [employer] josefina] (test code = 52) The system which generated this result transmitted ref erence range: Suscepti ble 0-1 , Resistant <0 or >1 . The reference r mary was not used to interpret this result as normal/abnor mal. Penicillin G See_Comment I [Automated mes josefina] (test code = 3) The system [facility] [facility] generated this result transmitted ref erence range: Suscepti ble 0-0.12 , Interm ediate <0 or >.12 , Re sistant >2 . The refere nce range was not u sed to interpret this result as normal/abnor mal. Vancomycin (test See_Comment S [Automated message] code = 13) The system [facility] [employer] generated this result transmitted ref erence range: [...] not appl icable for dialysis patien ts Lawn Care Worker ID - [id number] 07:16:32 Test Item Value Reference Range Interpretation Comments MAGNESIUM (BEAKER) (test code = 2.1 mg/dL 1.6-2.6 627) Lawn Care Worker ID - ADMINCBC W/PLT COUNT & AUTO [id number] 05:20:42 Test Item Value Reference Range Interpretation [...] (BEAKER) (test code = 2801) BASIC METABOLIC [id number] 05:10:51 Test Item Value Reference Range Interpretation [...] not appl icable for dialysis patien ts Lawn Care Worker ID - [id number] 05:10:51 Test Item Value Reference Range Interpretation Comments MAGNESIUM (BEAKER) (test code = 1.9 mg/dL 1.6-2.6 627) Lawn Care Worker ID - MARCOCBC W/PLT COUNT & AUTO [id number] 04:46:44 Test Item Value Reference Range Interpretation [...] (BEAKER) (test code = 2801) BASIC METABOLIC [id number] 05:45:29 Test Item Value Reference Range Interpretation [...] not appl icable for dialysis patien ts Lawn Care Worker ID - DARRELL WCBC W/PLT COUNT & AUTO [id number] 05:20:43 Test Item Value Reference Range Interpretation [...] (BEAKER) (test code = 2801) VANCOMYCIN LEVEL, [id number] 20:46:25 Test Item Value Reference Range Interpretation Comments VANCOMYCIN TROUGH (BEAKER) (test 22.3 ug/mL 10.0-20.0 H code = 522) Lawn Care Worker ID - ADMINMRSA [id number] 08:27:47 Test Item Value Reference Range Interpretation Comments CULTURE (BEAKER) (test code No MRSA isolated = 1095) BASIC METABOLIC [id number] 07:04:50 Test Item Value Reference Range Interpretation [...] not appl icable for dialysis patien ts Lawn Care Worker ID - ADMINCBC W/PLT COUNT & AUTO [id number] 06:39:41 Test Item Value Reference Range Interpretation [...] code = 2801) CT MAXILLOFACIAL WITH IV [id number] 18:52:26 [facility] STONE : 1965 Sex: MCTMAXILLOFACIAL WITH IV CONTRASTCLINICAL INDICATION: Unlisted Reason for Examevaluate for dental infection in pt bacteremicCOMPARISON: NoneTECHNIQUE: Stenosis contrast enhancement CT of the maxillofacialarea.Coronal and sagittal reconstructions were performed.DOSE REDUCTION: Dose modulation, iterative reconstruction, and/orweight-based adjustment of the mA/kV was utilized to reduce theradiation dose to as low as reasonably achievable.FINDINGS: 1. Periapical lucency of the right central mandibular incisor,suggestive of periapical abscess. No associated drainable fluidcollections.2. Remainder the facial soft tissues are unremarkable.IMPRESSION:No facial bone fracture Electronically Signed By: Denisse Encarnacion02/04/2023 18:54 CDTWorkstation Name: [id number] LEVEL, TROUGH 2023-02-04 05:46:26 Test Item Value Reference Range Interpretation Comments VANCOMYCIN TROUGH (BEAKER) (test 21.2 ug/mL 10.0-20.0 H code = 522) Lawn Care Worker ID - ADMINBASIC METABOLIC [id number] 05:41:05 Test Item Value Reference Range Interpretation [...] not appl icable for dialysis patien ts Lawn Care Worker ID - ADMINCBC W/PLT COUNT & AUTO [id number] 05:34:22 Test Item Value Reference Range Interpretation [...] (test code = 2801) BLOOD CULTURE IDENTIFICATION [id number] 05:18:27 Test Item Value Reference Range Interpretation Comments MCR-1 (BEAKER) (test Non Applicable Not detected code = 5552665505) CTX-M (BEAKER) (test Non Applicable Not detected code = 4052375036) IMP ([place]) (test code = Non Applicable Not Detected 3558325677) KPC (BKR) (test code = Non Applicable Not detected 2852667085) NDM (BKR) (test code = Non Applicable Not Detected 5989297827) OXA-48-LIKE (BKR) Non Applicable Not Detected (test code = 1142543513) VIM (BKR) (test code = Non Applicable Not detected 3617061519) MEC A/C ([place]) (test Non Applicable Not detected code = 4178939073) MEC A/C AND MREJ Non Applicable Not Detected (MRSA) [place] (test code = 7919812536) VAN A/B (VANCOMYCIN Non Applicable Not detected RESISTANCE) (test code = 0546370870) ENTEROCOCCUS FAECALIS Not detected Not detected (BKR) (test code = 4222751599) ENTEROCOCCUS FAECIUM Not detected Not detected (BKR) (test code = 6616880649) LISTERIA MONOCYTOGENES Not detected Not detected (test code = 4992345) STAPHYLOCOCCUS (test Not detected Not detected code = [id number]) STAPHYLOCOCCUS AUREUS Not detected Not detected (test code = 9557971) STAPHYLOCOCCUS Not detected Not detected EPIDERMIDIS ([place]) (test code = 0924511334) STAPHYLOCOCCUS Not detected Not detected LUGDENENSIS (BKR) (test code = [id number]) STREPTOCOCCUS (test Detected Not detected A Streptoc occus code = [id number]) species (NOT S. pneumoniae, S. agalactiae nor S. pyogenes).First line therapy: Vancomycin. De-escalate bas ed on susceptibilitie s. STREPTOCOCCUS Not detected Not detected AGALACTIAE (GROUP B) (test code = 0630821) STREPTOCOCCUS Not detected Not detected PNEUMONIAE (test code = 6428003) STREPTOCOCCUS PYOGENES Not detected Not detected (GROUP A) (test code = 0004769) ACINETOBACTER Not detected Not detected CALCOACETICUS-BAUMANNI I COMPLEX (BKR) (test code = 7712) BACTEROIDES FRAGILIS Not detected Not detected ([place]) (test code = 1156050985) ENTEROBACTERALES (test Not detected Not detected code = 0188684322) ENTEROBACTER CLOACOE Not detected Not detected COMPLEX (test code = 6796351) ESCHERICHIA COLI (test Not detected Not detected code = 6644081) KLEBSIELLA AEROGENES Not detected Not detected (BKR) (test code = 5479060579) KLEBSIELLA OXYTOCA Not detected Not detected (test code = 1299549) KLEBSIELLA PNEUMONIAE Not detected Not detected GROUP (test code = 7388623855) PROTEUS (test code = Not detected Not detected 1955180) SALMONELLA SPECIES Not detected Not detected ([place]) (test code = 1898254060) SERRATIA MARCESCENS Not detected Not detected (test code = 1244041) HAEMOPHILUS INFLUENZAE Not detected Not detected (test code = 9197246) NEISSERIA MENINGITIDIS Not detected Not detected (test code = 1788966) PSEUDOMONAS Not detected Not detected AERUGINOSA-BEAKER (test code = 9728508) STENOTROPHOMONAS Not detected Not detected MALTOPHILIA (BKR) (test code = 6140901740) ELY ALBICANS (test Not detected Not detected code = 1370455) ELY AURIS ([place]) Not detected Not detected (test code = 5326133819) ELY GLABRATA (test Not detected Not detected code = 6008498) ELY KRUSEI (test Not detected Not detected code = 1114605) ELY PARAPSILOSIS Not detected Not detected (test code = 8055142) ELY TROPICALIS Not detected Not detected (BKR) (test code = 2611674) CRYPTOCOCCUS Not detected Not detected NEOFORMANS/GATTII (test code = 2664997373) Other bacteria and resistance markers not targeted by this PCR panel cannot be excluded; therefore clinical correlation and follow up of serology, culture results, and other molecular studies is required. The results are not intended to be used as the sole means for clinical diagnosis or patient management decisions. This sample was tested at the [facility] using the [employer] Blood Culture ID Panel. It is FDA cleared and has been verified and approved by the [facility] for clinical use. This laboratory is CLIA-certified and College ofAmerican Pathologists (CAP)-accredited to perform high complexity testing.HEMOGLOBIN AND [id number] 18:25:49 Test Item Value Reference Range Interpretation Comments HEMOGLOBIN (BEAKER) (test code = 10.6 GM/DL 13.7-17.5 L 410) HEMATOCRIT (BEAKER) (test code = 33.1 % 40.1-51.0 L 411) Lawn Care Worker ID - [id number] 05:06:50 Test Item Value Reference Range Interpretation Comments PHOSPHORUS (BEAKER) (test code = 3.7 mg/dL 2.3-4.7 604) Lawn Care Worker ID - ADMINBASIC METABOLIC [id number] 05:06:49 Test Item Value Reference Range Interpretation [...] not appl icable for dialysis patien ts Lawn Care Worker ID - [id number] 05:06:49 Test Item Value Reference Range Interpretation Comments MAGNESIUM (BEAKER) (test code = 2.1 mg/dL 1.6-2.6 627) Lawn Care Worker ID - ADMINCBC W/PLT COUNT & AUTO [id number] 04:49:44 Test Item Value Reference Range Interpretation [...] (BEAKER) (test code = 2801) URINALYSIS W/ [id number] 22:15:40 Test Item Value Reference Range Interpretation [...] 520) SOURCE(BEAKER) (test code = Urine, Voided 4734) Lawn Care Worker ID - [auto]Lawn Care Worker ID - techCTA CHEST FOR PULMONARY [id number] 20:21:08[facility] : 1965 Sex: MCTAchest for pulmonary embolus.HISTORY: [...] Signed By: Kirby Viera02/02/2023 20:23 CDTWorkstation Name: [id number] ACID, [id number] 17:51:25 Test Item Value Reference Range Interpretation Comments LACTATE BLOOD VENOUS 0.91 mmol/L 0.50-2.00 Specime n slightly (2) (BEAKER) (test hemolyzed code = 2872) Lawn Care Worker ID - ADMINSARS-COV2/INFLUENZA/RSV BO-[id number] 17:28:26 Test Item Value Reference Range Interpretation Comments SARS-COV2/RT-PCR Negative Negative The SARS-Co V-2 target (test code = nucleic acids a re not 7681150) detected in thi s specimen. Negat lana results do not preclude SARS-CoV-2 infe ction [...] individuals milagros pected of COVID-19 by the [employer] ider. INFLUENZA A RT-PCR Negative Negative The Flu A target nucleic (test code = acids are not d etected in 19100710) this specimen. INFLUENZA B RT-PCR Negative Negative The Flu B target nucleic (test code = acids are not d etected in 19100711) this specimen. RSV RT-PCR (test Negative Negative The RSV tar get nucleic code = 5026092) acids are no t detected in this [...] of the Act.Fact Sheet for Healthcare Providers:https ://www.BUKA/Documents/Xpert%20Xpress%20SARS%20CoV-2/Fact%20Sheets/302-390 2%10CFNU-YPV-8%20HEALTHCARE%20PROVIDERS%20FACT%20SHEET.pdfFact Sheet for Healthcare Patients:https://www.BUKA/Docum ents/Xpert%20Xpress%20SARS%20Cov-2/Fact%20Sheets/302-3801%10VZNY-IMM-0%20PATIENT %20FACT%20SHEET.pdfBLOOD GAS, [id number] 16:13:03 Test Item Value Reference Range Interpretation [...] code = 1819) 21.0 HIGH SENSITIVITY TROPONIN [id number] 15:21:16 Test Item Value Reference Range Interpretation Comments HIGH SENSITIVITY 6 pg/ml See_Comment [Automated message] TROPONIN I (test code = The system which 6130557) generated this result transmitted ref erence range: <=35. Th e reference range was not used to interpr et this result as normal/abnormal . Lawn Care Worker ID - ADMINThe FORESTRY PILOT STAT High Sensitivity Troponin-I results should be used in conjunction with other diagnostic information such as ECG, clinical observations and information, and patientsymptoms to aid in the diagnosis of ID. B-TYPE NATRIURETIC FACTOR (BNP)2023-02-02 15:21:16 Test Item Value Reference Range Interpretation Comments B-TYPE NATRIURETIC PEPTIDE (BEAKER) 132 pg/mL 0-100 H (test code = 700) Lawn Care Worker ID - ADMINCOMPREHENSIVE METABOLIC [id number] 15:20:14 Test Item Value Reference Range Interpretation [...] (test code = 347) EGFR (BEAKER) 62 Interpretati on of eGFR (test code = 1092) mL/min/1.73 [...] not appl icable for dialysis patien ts Lawn Care Worker ID - ADMINLACTIC ACID, [id number] 15:15:12 Test Item Value Reference Range Interpretation Comments LACTATE BLOOD VENOUS 2.30 mmol/L 0.50-2.00 H Specime n moderately (2) (BEAKER) (test hemolyzed code = 6881) Lawn Care Worker ID - [id number] 15:06:50 Test Item Value Reference Range Interpretation Comments PARTIAL THROMBOPLASTIN TIME 22.9 seconds 22.5-36.0 (BEAKER) (test code = 760) PROTHROMBIN TIME/[id number] 15:06:08 Test Item Value Reference Range Interpretation Comments PROTIME (BEAKER) 17.8 seconds 11.9-14.2 H (test code = 759) INR (BEAKER) (test 1.56 See_Comment [Automat ed message] code = 370) The system [employer] generated this result transmitted ref erence range: <=5.90. The reference range was not used to int erpret this result as normal/abnormal . RECOMMENDED COUMADIN/WARFARIN INR THERAPY RANGESSTANDARD DOSE: 2.0 - 3.0 Includes: PROPHYLAXIS for venous thrombosis, systemic embolization; TREATMENT for venous thrombosis and/or pulmonary embolus.HIGH RISK: Target INR is 2.5-3.5 for patients with mechanical heart valves.CBC W/PLT COUNT & AUTO [id number] 15:01:28 Test Item Value Reference Range Interpretation [...] 2801) XR CHEST 1 VIEW PORTABLE / [id number] 15:00:49 [facility] : 1965 Sex: MTECHNIQUE: Frontal view of the chest.INDICATION: SHORTNESS OF BREATHfever.COMPARISON: 01/13/2023.FINDINGS:LINES/TUBES: None.HEART AND MEDIASTINUM: Cardiomediastinal contour is stable. Prior mediansternotomy. LUNGS: The lungs are well inflated and clear. No consolidation orpulmonary edema.PLEURA: Small leftpleural effusion. No pneumothorax.SOFT TISSUES AND BONES: Unremarkable.IMPRESSION:Persistent small left pleural effusion. No pulmonary edema or focalconsolidative process.Electronically Signed By: Brown Hylton02/02/2023 15:02 CDTWorkstation Name: [id number] CHEST 2 VIEWS 2023-01-13 16:20:51 [facility] : 1965 Sex: MChest PA and lateralCOMPARISON STUDY: 12/01/2022History provided: R06.02Heart size normal. Small left pleural effusion. Lungs are otherwiseclear and vascularity normal. Prior sternotomy and valvular prosthesis.Electronically Signed By: Cj Leiva01/13/2023 16:56 CDTWorkstation Name: [id number] CULTURE + SMEAR (NON-SPUTUM)2023-01-12 10:14:21 Test Item Value Reference Range Interpretation Comments CULTURE (BEAKER) (test No acid-fast bacilli code = 1095) isolated in 42 days AFB SMEAR (BEAKER) No acid fast bacilli (test code = 994) seen FUNGUS CULTURE + [id number] 08:35:45 Test Item Value Reference Range Interpretation Comments CULTURE (BEAKER) (test No fungus isolated in code = 1095) 28 days FUNGUS SMEAR (BEAKER) No fungi seen (test code = 1406) XR CHEST 1 VIEW PORTABLE / [id number] 10:18:00 [facility] : 1965 Sex: MCLINICAL HISTORY: left pleural effusionTECHNIQUE: 1 view of the chest.COMPARISON: 11/30/2022IMPRESSION:There is increased left basilar atelectasis. A small left pleuraleffusion is unchanged. The right lung appears well-aerated. Thecardiomediastinal silhouette is magnified by technique with sternotomywires. Electronically Signed By: Roxanne Tang12/01/2022 10:20 CDTWorkstation Name: [id number] 05:08:27 Test Item Value Reference Range Interpretation Comments MAGNESIUM (BEAKER) (test code = 2.1 mg/dL 1.6-2.6 627) Lawn Care Worker ID - ADMINBASIC METABOLIC [id number] 05:08:26 Test Item Value Reference Range Interpretation [...] not appl icable for dialysis patien ts Lawn Care Worker ID - ADMINB-TYPE NATRIURETIC FACTOR (BNP)2022-12-01 04:14:41 Test Item Value Reference Range Interpretation Comments B-TYPE NATRIURETIC PEPTIDE (BEAKER) 112 pg/mL 0-100 H (test code = 700) Lawn Care Worker ID - MMCBC (HEMOGRAM ONLY)2022-12-01 03:58:38 Test [...] 413) XR CHEST 1 VIEW PORTABLE / [id number] 12:27:28 [facility] : 1965 Sex: MCLINICAL HISTORY: CT removalTECHNIQUE: 1 view of the chest.COMPARISON: 11/29/2022IMPRESSION:No pneumothorax status post chest tube removal. Elevation lefthemidiaphragm is again seen with adjacent left lung base atelectasis andblunting of the costophrenic angle. The right lung appears well-aerated.The cardiomediastinal silhouette is unchanged with sternotomy.Electronically Signed By: Roxanne Tang312:29 CDTWorkstation Name: [id number] METABOLIC PANEL 2022-11-30 06:25:17 Test Item Value [...] not appl icable for dialysis patien ts Lawn Care Worker ID - [id number] 06:25:17 Test Item Value Reference Range Interpretation Comments MAGNESIUM (BEAKER) (test code = 2.2 mg/dL 1.6-2.6 627) Lawn Care Worker ID - ADMINCBC (HEMOGRAM ONLY)2022-11-30 04:46:03 Test [...] = 413) BODY FLUID CULTURE + GRAM [id number] 17:12:36 Test Item Value Reference Range Interpretation Comments CULTURE (BEAKER) (test code No growth = 1095) GRAM STAIN RESULT (BEAKER) No WBCs (test code = 1123) GRAM STAIN RESULT (BEAKER) No organisms seen (test code = 25636) BODY FLUID CULTURE + GRAM [id number] 17:12:12 Test Item Value Reference Range Interpretation Comments CULTURE (BEAKER) (test code No growth = 1095) GRAM STAIN RESULT (BEAKER) <1+ WBCs (test code = 1123) GRAM STAIN RESULT (BEAKER) No organisms seen (test code = 18069) COMPREHENSIVE METABOLIC [id number] 10:50:18 Test Item Value Reference Range Interpretation [...] (BEAKER) (test code = hemoly zed 635) [id number] 10:38:57 Test Item Value Reference Range Interpretation Comments MAGNESIUM (BEAKER) (test code = 2.1 mg/dL 1.6-2.6 627) XR CHEST 1 VIEW PORTABLE / [id number] 09:33:26 [facility] : 1965 Sex: MCHEST ONE [...] Signed By: Pradeep Oneil11/29/2022 09:35 CDTWorkstation Name: [id number] (HEMOGRAM ONLY) 2022-11-29 04:48:14 Test Item Value [...] 413) XR CHEST 1 VIEW PORTABLE / [id number] 08:17:15 [facility] : 1965 Sex: MEXAMINATION: XR CHEST 1 VIEW PORTABLE / BEDSIDE.INDICATION: 56-year-old male with left pleural effusion.COMPARISON: Chest radiograph dated 11/27/2022.FINDINGS/ IMPRESSION:A left-sided chest tube is noted. Left basilar atelectasis with smallresidual left pleural effusion. No definite pneumothorax. Elevated lefthemidiaphragm. Other findings remain unchanged.Electronically Signed By: Pradeep Franz11/28/2022 08:19 CDTWorkstation Name: [id number] METABOLIC [id number] 07:29:32 Test Item Value Reference Range Interpretation [...] not appl icable for dialysis patien ts Lawn Care Worker ID - [id number] 07:29:32 Test Item Value Reference Range Interpretation Comments MAGNESIUM (BEAKER) (test code = 1.8 mg/dL 1.6-2.6 627) Lawn Care Worker ID - ADMINB-TYPE NATRIURETIC FACTOR (BNP)2022-11-28 06:32:11 Test Item Value Reference Range Interpretation Comments B-TYPE NATRIURETIC PEPTIDE (BEAKER) 127 pg/mL 0-100 H (test code = 700) Lawn Care Worker ID - mmCBC (HEMOGRAM ONLY)2022-11-28 05:52:42 Test [...] 413) XR CHEST 1 VIEW PORTABLE / [id number] 12:21:53 [facility] : 1965 Sex: MHISTORY: [...] Signed By: Pradeep Oneil11/27/2022 12:23 CDTWorkstation Name: [id number] FLUID CELL COUNT WITH [id number] 11:57:26 Test Item Value Reference Range Interpretation Comments APPEARANCE FLUID (BEAKER) (test Hazy Clear A code = 510) COLOR FLUID (BEAKER) (test code [place] Colorless, Straw A = 511) RBC FLUID (BEAKER) (test code = 17094 /cu mm <=1 H 513) TOTAL NUCLEATED [...] = 2873) BODY FLUID CELL COUNT WITH [id number] 11:54:57 Test Item Value Reference Range Interpretation Comments APPEARANCE FLUID (BEAKER) (test Hazy Clear A code = 510) COLOR FLUID (BEAKER) (test code [place] Colorless, Straw A = 511) RBC FLUID (BEAKER) (test code = 63425 /cu mm <=1 H 513) TOTAL NUCLEATED [...] (BEAKER) EDTA Tube (test code = 2873) [id number] 05:37:38 Test Item Value Reference Range Interpretation Comments MAGNESIUM (BEAKER) 2.0 mg/dL 1.6-2.6 Specimen slightly (test code = 627) hemolyzed Lawn Care Worker ID - ADMINBASIC METABOLIC [id number] 05:37:38 Test Item Value Reference Range Interpretation [...] not appl icable for dialysis patien ts Lawn Care Worker ID - ADMINCBC (HEMOGRAM ONLY)2022-11-27 05:02:11 Test [...] 0-0 (BEAKER) (test code = 413) C-REACTIVE [id number] 19:45:08 Test Item Value Reference Range Interpretation Comments C-REACTIVE PROTEIN (BEAKER) (test 15.72 mg/dL 0.00-0.50 H code = 676) Lawn Care Worker ID - MMCT CHEST WITHOUT IV [id number] 19:44:56 [facility] : 1965 Sex: MTECHNIQUE: CT [...] Signed By: Jaylen Madera 19:48 CDTWorkstation Name: [id number] 19:32:59 Test Item Value Reference Range Interpretation [...] Borderline 130-159 High 160-189 Very High >=190 Lawn Care Worker ID - MMXR CHEST 1 VIEW PORTABLE / [id number] 13:54:50 [facility] : 1965 Sex: MXR CHEST 1 VIEW PORTABLE / BEDSIDECLINICAL HISTORY: SHORTNESS OF BREATH TECHNIQUE: Single view of the chest.COMPARISON: November 22, 2022IMPRESSION:Increased left lung opacity compatible with large effusionwith possible superimposed atelectasis or pneumonia. Enlarged cardiacsilhouette is stable. Right lung iswell aerated. No pneumothorax.Stable osseous structures. Median sternotomy wires noted.Electronically Signed By: Jagdeep Aguirre11/26/2022 13:56 CDTWorkstation Name: [id number] SENSITIVITY TROPONIN [id number] 13:15:29 Test Item Value Reference Range Interpretation Comments HIGH SENSITIVITY TROPONIN I (test 19 pg/ml <=35 code = 6206698) Lawn Care Worker ID - ADMINThe FORESTRY PILOT STAT High Sensitivity Troponin-I results should be used in conjunction with other diagnostic information such as ECG, clinical observations and information, and patientsymptoms to aid in the diagnosis of ID. B-TYPE NATRIURETIC FACTOR (BNP)2022-11-26 13:15:06 Test Item Value Reference Range Interpretation Comments B-TYPE NATRIURETIC PEPTIDE (BEAKER) 236 pg/mL 0-100 H (test code = 700) Lawn Care Worker ID - ADMINPROTHROMBIN TIME/[id number] 13:10:22 Test Item Value Reference Range Interpretation [...] not appl icable for dialysis patien ts Lawn Care Worker ID - ADMINCBC W/PLT COUNT & AUTO [id number] 12:57:03 Test Item Value Reference Range Interpretation [...] (test code = 2801) XR CHEST 2 [id number] 10:36:56 [facility] : 1965 Sex: MXR CHEST 2 VIEWSCLINICAL HISTORY: Shortness of breath, pleural effusionTECHNIQUE: 2 views of the chestCOMPARISON: 11/18/2022IMPRESSION:Large left pleural effusion is stable. No new lung consolidation. Noright pleural effusion. No pneumothorax. Enlarged cardiac silhouettecompatible with cardiomegaly. Mediastinal contours within normal limits.Median sternotomy and cardiac valve prosthesis. The osseous structuresappear stable.Electronically Signed By: Jagdeep Aguirre11/22/2022 10:39 CDTWorkstation Name: TPIFWPI4ID CHEST 2 [id number] 17:34:59 [facility] : 1965 Sex: MEXAMINATION: XR [...] Signed By: Dustin Dang11/18/2022 17:37 CDTWorkstation Name: [id number] LAB ORDER 2022-11-18 16:17:36 Test Item Value Reference Range Interpretation Comments SCAN RESULT (test code = 6046045) NU MISCELLANEOUS LAB [id number] 16:13:17 Test Item Value Reference Range Interpretation Comments SCAN RESULT (test code = 9716806) NU BASIC METABOLIC [id number] 06:26:01 Test Item Value Reference Range Interpretation [...] not appl icable for dialysis patien ts Lawn Care Worker ID - [id number] 06:26:01 Test Item Value Reference Range Interpretation Comments MAGNESIUM (BEAKER) (test code = 2.3 mg/dL 1.6-2.6 627) Lawn Care Worker ID - MMCBC W/PLT COUNT & AUTO [id number] 05:58:47 Test Item Value Reference Range Interpretation [...] 0.00-1.00 PERCENT (BEAKER) (test code = 2801) [id number] 05:50:50 Test Item Value Reference Range Interpretation Comments PARTIAL THROMBOPLASTIN TIME 32.5 seconds 22.5-36.0 (BEAKER) (test code = 760) [id number] 00:00:54 Test Item Value Reference Range Interpretation Comments PARTIAL THROMBOPLASTIN TIME 35.7 seconds 22.5-36.0 (BEAKER) (test code = 760) [id number] 17:00:51 Test Item Value Reference Range Interpretation Comments PARTIAL THROMBOPLASTIN TIME 71.5 seconds 22.5-36.0 H (BEAKER) (test code = 760) [id number] 10:28:45 Test Item Value Reference Range Interpretation [...] mechanical heart valves.RAD, CHEST, 1 VIEW, NON [id number] 07:32:00Reason for exam:->Pre-opShould this be performed at the bedside?->YesCH[facility] : 1965 Sex: MFINAL REPORT CLINICAL HISTORY: Pre-op TECHNIQUE: 1 view of the chest. COMPARISON: 10/28/2022 IMPRESSION: Mild bilateral lung opacities and blunting of both costophrenic angles is unchanged. The cardiomediastinal silhouette is magnified by technique with sternotomy wires. Signed: Roxanne Tang [facility] Verified Date/Time: 11/04/2022 07:32:35 [id number] 04:56:57 Test Item Value Reference Range Interpretation Comments PHOSPHORUS (BEAKER) (test code = 3.1 mg/dL 2.3-4.7 604) Lawn Care Worker ID - DBBASIC METABOLIC [id number] 04:56:56 Test Item Value Reference Range Interpretation [...] not appl icable for dialysis patien ts Lawn Care Worker ID - [id number] 04:56:56 Test Item Value Reference Range Interpretation Comments MAGNESIUM (BEAKER) (test code = 2.3 mg/dL 1.6-2.6 627) Lawn Care Worker ID - [id number] 04:04:33 Test Item Value Reference Range Interpretation Comments PARTIAL THROMBOPLASTIN TIME 34.4 seconds 22.5-36.0 (BEAKER) (test code = 760) [id number] 04:04:11 Test Item Value Reference Range Interpretation Comments FIBRINOGEN LEVEL (BEAKER) (test 651 mg/dl 225-434 H code = 658) PROTHROMBIN TIME/[id number] 04:03:54 Test Item Value Reference Range Interpretation [...] mechanical heart valves.CBC W/PLT COUNT & AUTO [id number] 03:58:22 Test Item Value Reference Range Interpretation [...] PERCENT (BEAKER) (test code = 2801) TISSUE [id number] 11:45:27Surgical Pathology Report Case: [id number] Authorizing Provider: Samuel Downey MD Collected: 10/22/2022 10:17 AM Ordering Location: [facility] Received: 10/25/2022 07:53 AM PERIOPERATIVE SERVICES Pathologist: Lorena Bridges MD Specimen: Aorta, ascending aorta RULE OUT AORTITIS A. Aorta, ascending, replacement: - Bicuspid valve-associated aortopathy - Histopathologic features consistent with aortic aneurysm - No histopathologic evidence of inflammatory aortopathy or aortic atherosclerotic d isease - See comment Signing Pathologist Direct Phone Line: [phone] signed by Lorena Bridges MD on 11/01/2022 [...] suggest aortic medialinvolvement by an inflammatory condition. [id number] x2 Aneurysm of ascending aorta without rupture,bicuspid [...] cut surface that is devoid of calcifications. Clinical Technologist sections are submitted in A1-A2.NIKOLAS Red, HT (ASCP)Microscopic examination is performed and the [...] evaluated Immunohistochemistry technical testing was performed at [facility], Pathology Laboratory where it was developed and [...] qualified to perform high complexity clinical laboratory testing.[facility], Department of Pathology, [address] [place] [address], Tel [facility], [facility], [address] [place] [address], [facility] [place], [facility], [address] [place] [address], [id number] 06:25:36 Test Item Value Reference Range Interpretation Comments MAGNESIUM (BEAKER) 2.2 mg/dL 1.6-2.6 Specimen slightly (test code = 627) hemolyzed Lawn Care Worker ID - [id number] 06:25:36 Test Item Value Reference Range Interpretation Comments PHOSPHORUS (BEAKER) 3.3 mg/dL 2.3-4.7 Specimen slightly (test code = 604) hemolyzed Lawn Care Worker ID - MARCOBASIC METABOLIC [id number] 06:25:36 Test Item Value Reference Range Interpretation [...] not appl icable for dialysis patien ts Lawn Care Worker ID - MARCOCBC W/PLT COUNT & AUTO [id number] 05:52:17 Test Item Value Reference Range Interpretation [...] (BEAKER) (test code = 2801) URINALYSIS W/ [id number] 12:39:00 Test Item Value Reference Range Interpretation [...] (test code Urine, Clean Catch = 2795) Lawn Care Worker ID - [auto]Lawn Care Worker ID - [id number] 05:54:52 Test Item Value Reference Range Interpretation Comments MAGNESIUM (BEAKER) (test code = 2.3 mg/dL 1.6-2.6 627) Lawn Care Worker ID - [id number] 05:54:52 Test Item Value Reference Range Interpretation Comments PHOSPHORUS (BEAKER) (test code = 3.1 mg/dL 2.3-4.7 604) Lawn Care Worker ID - MMBASIC METABOLIC [id number] 05:54:51 Test Item Value Reference Range Interpretation [...] not appl icable for dialysis patien ts Lawn Care Worker ID - MMCBC W/PLT COUNT & AUTO [id number] 05:44:16 Test Item Value Reference Range Interpretation [...] (test code = 2801) RAD, CHEST, 2 [id number] 16:45:00Reason for exam:->fever [facility] : 1965 Sex: MFINAL REPORT Chest, 2 views, 10/28/2022 1:51 PM. History: Fever. Comparison: 10/24/2022. Discussion: The cardiac silhouette is mildly enlarged but the pulmonary vasculature is within normal limits. Linear opacities are present in both lung bases with mild widening of the pleural margins bilaterally.. Median sternotomy wires are present. There are no acute osseous abnormalities. The soft tissues are unremarkable. IMPRESSION: Cardiomegaly, bibasilar atelectasis, and small bilateral pleural effusions. Signed: William Sifuentes Verified Date/Time: 10/28/2022 16:45:38 [id number] 06:57:12 Test Item Value Reference Range Interpretation Comments MAGNESIUM (BEAKER) (test code = 2.2 mg/dL 1.6-2.6 627) Lawn Care Worker ID - [id number] 06:57:12 Test Item Value Reference Range Interpretation Comments PHOSPHORUS (BEAKER) (test code = 2.7 mg/dL 2.3-4.7 604) Lawn Care Worker ID - MMBASIC METABOLIC [id number] 06:57:11 Test Item Value Reference Range Interpretation [...] not appl icable for dialysis patien ts Lawn Care Worker ID - MMCBC W/PLT COUNT & AUTO [id number] 06:15:49 Test Item Value Reference Range Interpretation [...] 0.00-1.00 PERCENT (BEAKER) (test code = 2801) [id number] 06:27:33 Test Item Value Reference Range Interpretation Comments MAGNESIUM (BEAKER) (test code = 2.2 mg/dL 1.6-2.6 627) Lawn Care Worker ID - [id number] 06:27:33 Test Item Value Reference Range Interpretation Comments PHOSPHORUS (BEAKER) (test code = 2.0 mg/dL 2.3-4.7 L 604) Lawn Care Worker ID - BSBASIC METABOLIC [id number] 06:27:32 Test Item Value Reference Range Interpretation [...] not appl icable for dialysis patien ts Lawn Care Worker ID - BSCBC W/PLT COUNT & AUTO [id number] 05:12:26 Test Item Value Reference Range Interpretation [...] code = 2801) URINALYSIS W/ REFLEX URINE [id number] 18:14:27 Test Item Value Reference Range Interpretation [...] = 516) SOURCE(BEAKER) (test code = 2795) Lawn Care Worker ID - [id number] 06:06:06 Test Item Value Reference Range Interpretation Comments MAGNESIUM (BEAKER) (test code = 2.2 mg/dL 1.6-2.6 627) Lawn Care Worker ID - [id number] 06:06:06 Test Item Value Reference Range Interpretation Comments PHOSPHORUS (BEAKER) (test code = 2.2 mg/dL 2.3-4.7 L 604) Lawn Care Worker ID - ADMINBASIC METABOLIC [id number] 06:06:05 Test Item Value Reference Range Interpretation [...] not appl icable for dialysis patien ts Lawn Care Worker ID - ADMINCBC W/PLT COUNT & AUTO [id number] 05:35:30 Test Item Value Reference Range Interpretation [...] GRANULOCYTES-RELATIVE PERCENT (BEAKER) (test code = 2801) [id number] 07:31:06 Test Item Value Reference Range Interpretation Comments MAGNESIUM (BEAKER) (test code = 2.2 mg/dL 1.6-2.6 627) Lawn Care Worker ID - [id number] 07:31:06 Test Item Value Reference Range Interpretation Comments PHOSPHORUS (BEAKER) (test code = 2.2 mg/dL 2.3-4.7 L 604) Lawn Care Worker ID - MMBASIC METABOLIC [id number] 07:31:05 Test Item Value Reference Range Interpretation [...] not appl icable for dialysis patien ts Lawn Care Worker ID - MMOperator ID - MMCBC W/PLT [...] = 2801) RAD, CHEST, 1 VIEW, NON [id number] 08:18:00Reason for exam:->Post OpShould this be performed at the bedside?->Yes [facility] : 1965 Sex: MFINAL REPORT Exam: RAD, CHEST, 1 VIEW, NON DEPTDate: 10/24/2022 8:18 AM Indication:Post OpComparison: Chest radiograph from yesterday. IMPRESSION: Lines/Tubes:Kinsley-Nader catheter has been removed. The sheath remains in place. Additional support devices/postoperative changes are unchanged. Lungs and Pleura :Unchanged bilateral interstitial opacities. Small bilateral pleural effusions. No pneumothorax. Heart/Mediastinum:Unchanged. Bones/Soft Tissues: No acute osseous abnormality. Upper abdomen: Unremarkable. Signed: Ana Arrington MDReport Verified Date/Time: 10/24/2022 08:18:57 CALCIUM, [id number] 02:46:49 Test Item Value Reference Range Interpretation Comments CALCIUM IONIZED (BEAKER) (test 1.15 mmol/L 1.12-1.27 code = 698) PH, BLOOD (BEAKER) (test code = 7.41 1810) OXYGEN SATURATION, [id number] 02:46:34 Test Item Value Reference Range Interpretation Comments O2 SATURATION (MEASURED) (BEAKER) 64.4 % (test code = 1455) [id number] 02:45:29 Test Item Value Reference Range Interpretation Comments MAGNESIUM (BEAKER) (test code = 2.2 mg/dL 1.6-2.6 627) Lawn Care Worker ID - [id number] 02:45:29 Test Item Value Reference Range Interpretation Comments PHOSPHORUS (BEAKER) (test code = 2.7 mg/dL 2.3-4.7 604) Lawn Care Worker ID - MARCOCOMPREHENSIVE METABOLIC [id number] 02:45:28 Test Item Value Reference Range Interpretation [...] not appl icable for dialysis patien ts Lawn Care Worker ID - MARCOLACTIC ACID, [id number] 02:40:27 Test Item Value Reference Range Interpretation Comments LACTATE BLOOD ARTERIAL (2) 0.7 mmol/L 0.5-2.0 (BEAKER) (test code = 2874) Lawn Care Worker ID - [id number] 02:39:21 Test Item Value Reference Range Interpretation [...] is 2.5-3.5 for patients with mechanical heart valves.[id number] 02:39:00 Test Item Value Reference Range Interpretation Comments FIBRINOGEN LEVEL (BEAKER) (test 567 mg/dl 225-434 H code = 658) CBC W/PLT COUNT & AUTO [id number] 02:28:04 Test Item Value Reference Range Interpretation [...] PERCENT (BEAKER) (test code = 2801) POCT-GLUCOSE [id number] 02:24:35 Test Item Value Reference Range Interpretation Comments POC-GLUCOSE METER 101 mg/dL 70-110 : TESTED A T [facility] 6720 (BEAKER) (test code = [facility], 153) [address]: Lawn Care Worker/Techni naif ID = [id number] for TUNDE DEAN POCT-GLUCOSE [id number] 00:35:31 Test Item Value Reference Range Interpretation Comments POC-GLUCOSE METER 101 mg/dL 70-110 : TESTED A T [facility] 6720 (BEAKER) (test code = [facility], 153) 00179: Lawn Care Worker/Techni naif ID = [id number] for PAT FOY POCT-GLUCOSE [id number] 16:25:00 Test Item Value Reference Range Interpretation Comments POC-GLUCOSE METER 92 mg/dL 70-110 : TESTED A T [facility] 6720 (BEAKER) (test code = [facility], 153) 36413: Lawn Care Worker/Techni naif ID = [id number] for KEN MATTHEWS POCT-GLUCOSE [id number] 15:13:32 Test Item Value Reference Range Interpretation Comments POC-GLUCOSE METER 102 mg/dL 70-110 : TESTED A T [facility] 6720 (BEAKER) (test code = [facility], 153) 13448: Lawn Care Worker/Techni naif ID = [id number] for SAIRA CHUAFER POCT-GLUCOSE [id number] 12:00:19 Test Item Value Reference Range Interpretation Comments POC-GLUCOSE METER 114 mg/dL 70-110 H : TESTED A T [facility] 6720 (BEAKER) (test code = [facility], 1538) 942[address]: Lawn Care Worker/Techni naif ID = [id number] for Esperanza juniorElisabeth mancilla POCT-GLUCOSE [id number] 10:34:20 Test Item Value Reference Range Interpretation Comments POC-GLUCOSE METER 125 mg/dL 70-110 H : TESTED A T [facility] 6720 (BEAKER) (test code [facility], = 1538) 81208: Lawn Care Worker/Techni naif ID = [id number] for Yazmin wilson (contract)Maritza RAD, CHEST, 1 VIEW, NON [id number] 08:39:00Reason for exam:->Post OpShould this be performed at the bedside?->Yes [facility] : 1965 Sex: MFINAL REPORT Exam: RAD, CHEST, 1 VIEW, NON DEPTDate: 10/23/2022 8:38 AM Indication:Post OpComparison: Chest radiograph from yesterday. IMPRESSION: Lines/Tubes:Enteric and endotracheal tubes have been removed. Unchanged right IJ approach Kinsley-Nader catheter. Median sternotomy wires noted. Mediastinal drains noted. Lungs and Pleura :Interstitial opacities are seen in both lungs. Small bilateral pleural effusions. No pneumothorax. Heart/Mediastinum:Unchanged. Bones/Soft Tissues: No acuteosseous abnormality. Upper abdomen: Unremarkable. Signed: Ana Arrington Verified Date/Time: 10/23/2022 08:39:40 POCT-GLUCOSE [id number] 07:57:35 Test Item Value Reference Range Interpretation Comments POC-GLUCOSE METER 104 mg/dL 70-110 : TESTED A T [facility] 6720 (BEAKER) (test code = PRIYA Jimenez [facility], 1538) 201[address]: Lawn Care Worker/Techni naif ID = [id number] for KEN CHUA POCT-GLUCOSE [id number] 06:27:52 Test Item Value Reference Range Interpretation Comments POC-GLUCOSE METER 110 mg/dL 70-110 : TESTED A T [facility] 6720 (BEAKER) (test code = PRIYA Jimenez [facility], 153) 85846: Lawn Care Worker/Techni naif ID = [id number] for NG HANNA, DUNG POCT-GLUCOSE [id number] 05:12:14 Test Item Value Reference Range Interpretation Comments POC-GLUCOSE METER 101 mg/dL 70-110 : TESTED A T [facility] 6720 (BEAKER) (test code = PRIYA Jimenez [facility], 1538) 87865: Lawn Care Worker/Techni naif ID = [id number] for NG HANNA, DUNG [id number] 03:11:44 Test Item Value Reference Range Interpretation Comments MAGNESIUM (BEAKER) (test code = 1.9 mg/dL 1.6-2.6 627) Lawn Care Worker ID - [id number] 03:11:44 Test Item Value Reference Range Interpretation Comments PHOSPHORUS (BEAKER) (test code = 4.1 mg/dL 2.3-4.7 604) Lawn Care Worker ID - MARCOCOMPREHENSIVE METABOLIC [id number] 03:11:43 Test Item Value Reference Range Interpretation [...] not appl icable for dialysis patien ts Lawn Care Worker ID - MARCOLACTIC ACID, [id number] 02:54:35 Test Item Value Reference Range Interpretation Comments LACTATE BLOOD ARTERIAL (2) 2.1 mmol/L 0.5-2.0 H (BEAKER) (test code = 2874) Lawn Care Worker ID - [id number] 02:52:46 Test Item Value Reference Range Interpretation Comments FIBRINOGEN LEVEL (BEAKER) (test 346 mg/dl 225-434 code = 658) BLOOD GAS, [id number] 02:51:39 Test Item Value Reference Range Interpretation [...] (BEAKER) (test code = 1819) 28.0 CALCIUM, [id number] 02:50:47 Test Item Value Reference Range Interpretation [...] 0-0 (BEAKER) (test code = 413) POCT-GLUCOSE [id number] 01:19:49 Test Item Value Reference Range Interpretation Comments POC-GLUCOSE METER 122 mg/dL 70-110 H : TESTED A T [facility] 6720 (BEAKER) (test code = PRIYA [place], 1538) 88281: Lawn Care Worker/Techni naif ID = [id number] for IVONE ZHU POCT-GLUCOSE [id number] 00:12:51 Test Item Value Reference Range Interpretation Comments POC-GLUCOSE METER 121 mg/dL 70-110 H : TESTED A T [facility] 6720 (BEAKER) (test code = PRI[place], 1538) [address]: Lawn Care Worker/Techni naif ID = [id number] for IVONE ZHU LACTIC ACID, [id number] 22:24:54 Test Item Value Reference Range Interpretation Comments LACTATE BLOOD ARTERIAL (2) 2.0 mmol/L 0.5-2.0 (BEAKER) (test code = 2874) Lawn Care Worker ID - MMHGB/HCT (H&H) - STAT [id number] 21:41:48 Test Item Value Reference Range Interpretation Comments HEMOGLOBIN (BEAKER) (test code = 11.2 GM/DL 13.0-16.8 L 410) HEMATOCRIT (BEAKER) (test code = 33.0 % 40.0-50.0 L 411) BLOOD GAS, [id number] 21:41:47 Test Item Value Reference Range Interpretation [...] (test code = 1819) 100.0 SODIUM NA-STAT [id number] 21:41:41 Test Item Value Reference Range Interpretation Comments SODIUM (BEAKER) (test code = 381) 140 meq/L 136-145 POTASSIUM-STAT [id number] 21:41:41 Test Item Value Reference Range Interpretation Comments POTASSIUM (BEAKER) (test code = 4.2 meq/L 3.6-5.5 379) GLUCOSE-STAT [id number] 21:41:40 Test Item Value Reference Range Interpretation Comments GLUCOSE RANDOM (BEAKER) (test code 109 mg/dL 70-110 = 652) POCT-GLUCOSE [id number] 20:33:02 Test Item Value Reference Range Interpretation Comments POC-GLUCOSE METER 99 mg/dL 70-110 : Notified RN/MD: TESTED (BEAKER) (test code = AT [facility] [address] [facility] 1538) [place], [address]: Lawn Care Worker/Techni naif ID = [id number] for AHADANIELLE HOOD [id number] 19:14:15 Test Item Value Reference Range Interpretation Comments PHOSPHORUS (BEAKER) (test code = 2.4 mg/dL 2.3-4.7 604) Lawn Care Worker ID - [id number] 19:14:15 Test Item Value Reference Range Interpretation Comments POTASSIUM (BEAKER) (test code = 4.7 meq/L 3.5-5.1 379) Lawn Care Worker ID - [id number] 19:14:14 Test Item Value Reference Range Interpretation Comments MAGNESIUM (BEAKER) (test code = 2.2 mg/dL 1.6-2.6 627) Lawn Care Worker ID - MMCALCIUM, [id number] 18:58:27 Test Item Value Reference Range Interpretation Comments CALCIUM IONIZED (BEAKER) (test 1.30 mmol/L 1.12-1.27 H code = 698) PH, BLOOD (BEAKER) (test code = 7.44 1810) HGB/HCT (H&H) - STAT [id number] 18:58:15 Test Item Value Reference Range Interpretation Comments HEMOGLOBIN (BEAKER) (test code = 11.8 GM/DL 13.0-16.8 L 410) HEMATOCRIT (BEAKER) (test code = 35.0 % 40.0-50.0 L 411) BLOOD GAS, [id number] 18:58:14 Test Item Value Reference Range Interpretation [...] (BEAKER) (test code = 1819) 36.0 POTASSIUM-STAT [id number] 18:58:09 Test Item Value Reference Range Interpretation Comments POTASSIUM (BEAKER) (test code = 4.6 meq/L 3.6-5.5 379) SODIUM NA-STAT [id number] 18:58:08 Test Item Value Reference Range Interpretation Comments SODIUM (BEAKER) (test code = 381) 143 meq/L 136-145 GLUCOSE-STAT [id number] 18:58:02 Test Item Value Reference Range Interpretation Comments GLUCOSE RANDOM (BEAKER) (test code 105 mg/dL 70-110 = 652) LACTIC ACID, [id number] 18:35:11 Test Item Value Reference Range Interpretation Comments LACTATE BLOOD ARTERIAL (2) 6.1 mmol/L 0.5-2.0 HH (BEAKER) (test code = 2874) Lawn Care Worker ID - MMBLOOD GAS, [id number] 17:47:17 Test Item Value Reference Range Interpretation [...] = 1819) 40.0 HGB/HCT (H&H) - STAT [id number] 17:47:17 Test Item Value Reference Range Interpretation Comments HEMOGLOBIN (BEAKER) (test code = 11.0 GM/DL 13.0-16.8 L 410) HEMATOCRIT (BEAKER) (test code = 32.0 % 40.0-50.0 L 411) SODIUM NA-STAT [id number] 17:47:09 Test Item Value Reference Range Interpretation Comments SODIUM (BEAKER) (test code = 381) 141 meq/L 136-145 POTASSIUM-STAT [id number] 17:47:09 Test Item Value Reference Range Interpretation Comments POTASSIUM (BEAKER) (test code = 4.1 meq/L 3.6-5.5 379) GLUCOSE-STAT [id number] 17:47:08 Test Item Value Reference Range Interpretation Comments GLUCOSE RANDOM (BEAKER) (test code 112 mg/dL 70-110 H = 652) RAD, CHEST, 1 VIEW, NON [id number] 16:54:00Reason for exam:->Post OpShould this be performed at the bedside?->Yes [facility] : 1965 Sex: MFINAL REPORT TECHNIQUE: Frontal view of the chest. INDICATION: Post Op. COMPARISON:10/15/2022. FINDINGS: LINES/TUBES: Endotracheal tube tip projected 3.7 cm above the level of the nhan. Right IJ Kinsley-Nader catheter with tip projecting over right lower [...] MDReport Verified Date/Time: 10/22/2022 16:54:55 LACTIC ACID, [id number] 16:44:10 Test Item Value Reference Range Interpretation Comments LACTATE BLOOD 8.0 mmol/L 0.5-2.0 HH Specimen sligh tly ARTERIAL (2) (BEAKER) hemoly zed (test code = 2874) Lawn Care Worker ID - MMBLOOD GAS, [id number] 16:27:25 Test Item Value Reference Range Interpretation [...] = 1819) 50.0 HGB/HCT (H&H) - STAT [id number] 16:27:25 Test Item Value Reference Range Interpretation Comments HEMOGLOBIN (BEAKER) (test code = 11.7 GM/DL 13.0-16.8 L 410) HEMATOCRIT (BEAKER) (test code = 34.0 % 40.0-50.0 L 411) SODIUM NA-STAT [id number] 16:19:14 Test Item Value Reference Range Interpretation Comments SODIUM (BEAKER) (test code = 381) 140 meq/L 136-145 POTASSIUM-STAT [id number] 16:19:14 Test Item Value Reference Range Interpretation Comments POTASSIUM (BEAKER) (test code = 3.9 meq/L 3.6-5.5 379) GLUCOSE-STAT [id number] 16:19:13 Test Item Value Reference Range Interpretation [...] CONCENTRATION Adequate (CELLAVISION)(BEAKER) (test code = 3438) Lawn Care Worker ID - Glynnr comments: Slide comments:LACTIC ACID, ARTERIAL 2022-10-22 15:24:06 Test Item Value Reference Range Interpretation Comments LACTATE BLOOD 7.1 mmol/L 0.5-2.0 HH Specimen sligh tly ARTERIAL (2) (BEAKER) hemoly zed (test code = 2874) Lawn Care Worker ID - MMCOMPREHENSIVE METABOLIC [id number] 15:20:42 Test Item Value Reference Range Interpretation [...] not appl icable for dialysis patien ts Lawn Care Worker ID - [id number] 15:20:41 Test Item Value Reference Range Interpretation Comments MAGNESIUM (BEAKER) 2.4 mg/dL 1.6-2.6 Specimen slightly (test code = 627) hemolyzed Lawn Care Worker ID - [id number] 15:20:41 Test Item Value Reference Range Interpretation Comments PHOSPHORUS (BEAKER) 3.7 mg/dL 2.3-4.7 Specimen slightly (test code = 604) hemolyzed Lawn Care Worker ID - [id number] 15:20:04 Test Item Value Reference Range Interpretation Comments FIBRINOGEN LEVEL (BEAKER) (test 283 mg/dl 225-434 code = 658) [id number] 15:09:52 Test Item Value Reference Range Interpretation [...] 2.5-3.5 for patients with mechanical heart valves.PROTHROMBIN TIME/[id number] 15:09:12 Test Item Value Reference Range Interpretation [...] mechanical heart valves.CBC W/PLT COUNT & AUTO [id number] 15:05:41 Test Item Value Reference Range Interpretation [...] (BEAKER) (test code = 413) OXYGEN SATURATION, [id number] 14:34:19 Test Item Value Reference Range Interpretation Comments O2 SATURATION (MEASURED) (BEAKER) 82.6 % (test code = 1455) BLOOD GAS, [id number] 14:33:21 Test Item Value Reference Range Interpretation [...] = 1819) 60.0 HGB/HCT (H&H) - STAT [id number] 14:33:15 Test Item Value Reference Range Interpretation Comments HEMOGLOBIN (BEAKER) (test code = 12.1 GM/DL 13.0-16.8 L 410) HEMATOCRIT (BEAKER) (test code = 36.0 % 40.0-50.0 L 411) CALCIUM, [id number] 14:33:14 Test Item Value Reference Range Interpretation Comments CALCIUM IONIZED (BEAKER) (test 1.11 mmol/L 1.12-1.27 L code = 698) PH, BLOOD (BEAKER) (test code = 7.32 1810) POTASSIUM-STAT [id number] 14:32:17 Test Item Value Reference Range Interpretation Comments POTASSIUM (BEAKER) (test code = 3.5 meq/L 3.6-5.5 L 379) GLUCOSE-STAT [id number] 14:32:16 Test Item Value Reference Range Interpretation Comments GLUCOSE RANDOM (BEAKER) (test code 132 mg/dL 70-110 H = 652) SODIUM NA-STAT [id number] 14:32:16 Test Item Value Reference Range Interpretation Comments SODIUM (BEAKER) (test code = 381) 142 meq/L 136-145 LACTIC ACID, [id number] 14:10:28 Test Item Value Reference Range Interpretation Comments LACTATE BLOOD 6.7 mmol/L 0.5-2.0 HH Specimen sligh tly ARTERIAL (2) (BEAKER) hemoly zed (test code = 2874) Lawn Care Worker ID - [id number] 13:54:55 Test Item Value Reference Range Interpretation Comments ACTIVATED CLOTTING TIME 119 sec : 74 -137 seconds, (BEAKER) (test code = Baseli ne: TESTED AT 441) [facility] [address] [facility] [place], [address]: Lawn Care Worker/Techni naif ID = [id number] for TODD NIETO [id number] 13:54:50 Test Item Value Reference Range Interpretation Comments ACTIVATED CLOTTING TIME 408 sec : 74 -137 seconds, (BEAKER) (test code = Baseli ne: TESTED AT 441) [address], [facility] 30: Lawn Care Worker/Techni naif ID = [id number] for Mariaa an, [place] [id number] 13:54:49 Test Item Value Reference Range Interpretation Comments ACTIVATED CLOTTING TIME 528 sec : 74 -137 seconds, (BEAKER) (test code = Baseli ne: TESTED AT 441) [place] [address] 30: Lawn Care Worker/Techni naif ID = [id number] for Mariaa an, [place] [id number] 13:54:48 Test Item Value Reference Range Interpretation Comments ACTIVATED CLOTTING TIME 473 sec : 74 -137 seconds, (BEAKER) (test code = Baseli ne: TESTED AT 441) [address], [facility] 30: Lawn Care Worker/Techni naif ID = [id number] for Mariaa an, [place] [id number] 13:54:48 Test Item Value Reference Range Interpretation Comments ACTIVATED CLOTTING TIME 407 sec : 74 -137 seconds, (BEAKER) (test code = Baseli ne: TESTED AT 441) [address], [facility] 30: Lawn Care Worker/Techni naif ID = [id number] for Mariaa an, [place] [id number] 13:54:18 Test Item Value Reference Range Interpretation Comments ACTIVATED CLOTTING TIME 594 sec : 74 -137 seconds, (BEAKER) (test code = Baseli ne: TESTED AT 441) [place] [address] 30: Lawn Care Worker/Techni naif ID = [id number] for Mariaa an, [place] CALCIUM, [id number] 13:29:08 Test Item Value Reference Range Interpretation Comments CALCIUM IONIZED (BEAKER) (test 0.96 mmol/L 1.12-1.27 L code = 698) PH, BLOOD (BEAKER) (test code = 7.32 1810) POTASSIUM-STAT [id number] 13:28:16 Test Item Value Reference Range Interpretation Comments POTASSIUM (BEAKER) (test code = 3.3 meq/L 3.6-5.5 L 379) HGB/HCT (H&H) - STAT [id number] 13:28:16 Test Item Value Reference Range Interpretation Comments HEMOGLOBIN (BEAKER) (test code = 11.6 GM/DL 13.0-16.8 L 410) HEMATOCRIT (BEAKER) (test code = 34.0 % 40.0-50.0 L 411) BLOOD GAS, [id number] 13:28:15 Test Item Value Reference Range Interpretation [...] (test code = 1819) 90.0 SODIUM NA-STAT [id number] 13:27:56 Test Item Value Reference Range Interpretation Comments SODIUM (BEAKER) (test code = 381) 141 meq/L 136-145 GLUCOSE-STAT [id number] 13:27:51 Test Item Value Reference Range Interpretation Comments GLUCOSE RANDOM (BEAKER) (test code 143 mg/dL 70-110 H = 652) POTASSIUM-STAT [id number] 12:21:24 Test Item Value Reference Range Interpretation Comments POTASSIUM (BEAKER) (test code = 3.1 meq/L 3.6-5.5 L 379) HGB/HCT (H&H) - STAT [id number] 12:21:24 Test Item Value Reference Range Interpretation Comments HEMOGLOBIN (BEAKER) (test code = 11.0 GM/DL 13.0-16.8 L 410) HEMATOCRIT (BEAKER) (test code = 32.0 % 40.0-50.0 L 411) BLOOD GAS, [id number] 12:21:23 Test Item Value Reference Range Interpretation [...] (BEAKER) (test code = 1819) 36.0 CALCIUM, [id number] 12:20:51 Test Item Value Reference Range Interpretation Comments CALCIUM IONIZED (BEAKER) (test 1.42 mmol/L 1.12-1.27 H code = 698) PH, BLOOD (BEAKER) (test code = 7.32 1810) SODIUM NA-STAT [id number] 12:19:08 Test Item Value Reference Range Interpretation Comments SODIUM (BEAKER) (test code = 381) 138 meq/L 136-145 GLUCOSE-STAT [id number] 12:19:07 Test Item Value Reference Range Interpretation Comments GLUCOSE RANDOM (BEAKER) (test code 139 mg/dL 70-110 H = 652) BLOOD GAS, [id number] 12:03:20 Test Item Value Reference Range Interpretation [...] = 1819) 70.0 HGB/HCT (H&H) - STAT [id number] 12:03:20 Test Item Value Reference Range Interpretation Comments HEMOGLOBIN (BEAKER) (test code = 11.5 GM/DL 13.0-16.8 L 410) HEMATOCRIT (BEAKER) (test code = 34.0 % 40.0-50.0 L 411) SODIUM NA-STAT [id number] 12:02:34 Test Item Value Reference Range Interpretation Comments SODIUM (BEAKER) (test code = 381) 135 meq/L 136-145 L GLUCOSE-STAT [id number] 12:02:34 Test Item Value Reference Range Interpretation Comments GLUCOSE RANDOM (BEAKER) (test code 153 mg/dL 70-110 H = 652) POTASSIUM-STAT [id number] 12:02:34 Test Item Value Reference Range Interpretation Comments POTASSIUM (BEAKER) (test code = 4.4 meq/L 3.6-5.5 379) [id number] 11:35:58 Test Item Value Reference Range Interpretation Comments FIBRINOGEN LEVEL (BEAKER) (test 150 mg/dl 225-434 L code = 658) LACTIC ACID, [id number] 11:35:02 Test Item Value Reference Range Interpretation Comments LACTATE BLOOD 1.6 mmol/L 0.5-2.0 Specimen sligh tly ARTERIAL (2) (BEAKER) hemoly zed (test code = 2874) Lawn [employer] Worker ID - [id number] 11:31:14 Test Item Value Reference Range Interpretation Comments PROTIME (BEAKER) (test code = 43.0 seconds 11.9-14.2 H 759) INR (BEAKER) (test code = 370) 4.94 <=5.90 RECOMMENDED COUMADIN/WARFARIN INR THERAPY RANGESSTANDARD DOSE: 2.0 - 3.0 Includes: PROPHYLAXIS for venous thrombosis, systemic embolization; TREATMENT for venous thrombosis and/or pulmonary embolus.HIGH RISK: Target INR is 2.5-3.5 for patients with mechanical heart valves.HGB/HCT (H&H) - STAT [id number] 11:26:58 Test Item Value Reference Range Interpretation Comments HEMOGLOBIN (BEAKER) (test code = 12.0 GM/DL 13.0-16.8 L 410) HEMATOCRIT (BEAKER) (test code = 35.0 % 40.0-50.0 L 411) BLOOD GAS, [id number] 11:26:57 Test Item Value Reference Range Interpretation [...] (BEAKER) (test code = 1819) 70.0 POTASSIUM-STAT [id number] 11:25:33 Test Item Value Reference Range Interpretation Comments POTASSIUM (BEAKER) (test code = 4.5 meq/L 3.6-5.5 379) GLUCOSE-STAT [id number] 11:25:27 Test Item Value Reference Range Interpretation Comments GLUCOSE RANDOM (BEAKER) (test code 193 mg/dL 70-110 H = 652) SODIUM NA-STAT [id number] 11:25:27 Test Item Value Reference Range Interpretation Comments SODIUM (BEAKER) (test code = 381) 138 meq/L 136-145 PLATELET [id number] 11:21:06 Test Item Value Reference Range Interpretation Comments PLATELET COUNT (BEAKER) (test 147 K/CU MM 150-450 L code = 756) Lawn Care Worker ID - [id number]/HCT (H&H) - STAT [id number] 10:37:32 Test Item Value Reference Range Interpretation Comments HEMOGLOBIN (BEAKER) (test code = 11.7 GM/DL 13.0-16.8 L 410) HEMATOCRIT (BEAKER) (test code = 34.0 % 40.0-50.0 L 411) BLOOD GAS, [id number] 10:37:31 Test Item Value Reference Range Interpretation [...] (BEAKER) (test code = 1819) 65.0 POTASSIUM-STAT [id number] 10:37:20 Test Item Value Reference Range Interpretation Comments POTASSIUM (BEAKER) (test code = 4.4 meq/L 3.6-5.5 379) GLUCOSE-STAT [id number] 10:37:19 Test Item Value Reference Range Interpretation Comments GLUCOSE RANDOM (BEAKER) (test code 211 mg/dL 70-110 H = 652) SODIUM NA-STAT [id number] 10:37:19 Test Item Value Reference Range Interpretation Comments SODIUM (BEAKER) (test code = 381) 138 meq/L 136-145 HGB/HCT (H&H) - STAT [id number] 10:13:35 Test Item Value Reference Range Interpretation Comments HEMOGLOBIN (BEAKER) (test code = 11.4 GM/DL 13.0-16.8 L 410) HEMATOCRIT (BEAKER) (test code = 34.0 % 40.0-50.0 L 411) BLOOD GAS, [id number] 10:13:34 Test Item Value Reference Range Interpretation [...] (test code = 1819) 80.0 SODIUM NA-STAT [id number] 10:13:34 Test Item Value Reference Range Interpretation Comments SODIUM (BEAKER) (test code = 381) 136 meq/L 136-145 GLUCOSE-STAT [id number] 10:12:16 Test Item Value Reference Range Interpretation Comments GLUCOSE RANDOM (BEAKER) (test code 188 mg/dL 70-110 H = 652) POTASSIUM-STAT [id number] 10:12:16 Test Item Value Reference Range Interpretation Comments POTASSIUM (BEAKER) (test code = 4.5 meq/L 3.6-5.5 379) CALCIUM, [id number] 08:24:38 Test Item Value Reference Range Interpretation Comments CALCIUM IONIZED (BEAKER) (test 1.10 mmol/L 1.12-1.27 L code = 698) PH, BLOOD (BEAKER) (test code = 7.42 1810) BLOOD GAS, [id number] 08:24:38 Test Item Value Reference Range Interpretation [...] (BEAKER) (test code = 1819) 100.0 POTASSIUM-STAT [id number] 08:24:38 Test Item Value Reference Range Interpretation Comments POTASSIUM (BEAKER) (test code = 2.9 meq/L 3.6-5.5 L 379) SODIUM NA-STAT [id number] 08:24:11 Test Item Value Reference Range Interpretation Comments SODIUM (BEAKER) (test code = 381) 144 meq/L 136-145 HGB/HCT (H&H) - STAT [id number] 08:24:11 Test Item Value Reference Range Interpretation Comments HEMOGLOBIN (BEAKER) (test code = 15.3 GM/DL 13.0-16.8 410) HEMATOCRIT (BEAKER) (test code = 45.0 % 40.0-50.0 411) GLUCOSE-STAT [id number] 08:24:10 Test Item Value Reference Range Interpretation Comments GLUCOSE RANDOM (CHANDANAKER) (test code = 89 mg/dL 70-110 652) POCT-GLUCOSE [id number] 07:13:35 Test Item Value Reference Range Interpretation Comments POC-GLUCOSE METER 92 mg/dL 70-110 : TESTED A T [facility] 6720 (AKER) (test code = [place], 1538) [address]: Lawn Care Worker/Techni naif ID = [id number] for MELVIN TANG HEPATITIS B [id number] 12:32:45 Test Item Value Reference Range Interpretation Comments HEPATITIS B CORE TOTAL ANTIBODY Nonreactive Nonreactive (CHANDANAKER) (test code = 497) HEPATITIS B SURFACE ANTIBODY < mIU/mL <8.0 (AKER) (test code = 647) HEPATITIS B SURFACE ANTIGEN (2) Nonreactive Nonreactive (AKER) (test code = 2585) Lawn Care Worker ID - ADMINHEPATITIS C [id number] 12:31:04 Test Item Value Reference Range Interpretation Comments HEPATITIS C ANTIBODY (CHANDANAKER) Nonreactive Nonreactive (test code = 367) Lawn Care Worker ID - ADMINHIV-1 ANTIGEN WITH HIV-1/2 [id number] 12:31:04 Test Item Value Reference Range Interpretation Comments HIV-1 ANTIGEN WITH HIV 1\\T\\2 Nonreactive Nonreactive ANTIBODY (2) (MICHELET) (test code = 2586) Lawn Care Worker ID - ADMINHEMOGLOBIN [id number] 12:30:48 Test Item Value Reference Range Interpretation Comments HEMOGLOBIN A1C 5.2 % See_Comment [Automated m essage] ELECTROPHORESIS ([facility]) The system which (test code = 3811) generated this result transmitted ref erence range: <=5.6%. The reference range was not used to int erpret this result as normal/abnormal . "The A1c is measured using a NGSP-certified method. HbA1c value equal to or greater than 6.5% as thediagnosis cutoff for diabetes. An HbA1c value of 5.7- 6.4% indicates increased risk for diabetes (prediabetes)."Lawn Care Worker ID - ADMRAD, CHEST, 2 [id number] 12:16:00Reason for Exam:->[facility] 1965 Sex: [...] No acute intrathoracic abnormality. Signed: Smith Corona Verified Date/Time: 10/15/2022 12:16:37 Reading Location: [address] Reading Room ALT (SGPT)2022-10-15 11:35:12 Test Item Value Reference Range Interpretation Comments ALT (SGPT) (BEAKER) (test code = 347) 11 U/L 6-55 Lawn Care Worker ID - mmAST (SGOT)2022-10-15 11:35:12 Test Item Value Reference Range Interpretation Comments AST (SGOT) (BEAKER) (test code = 353) 11 U/L 5-34 Lawn Care Worker ID - mmPROTEIN, [id number] 11:35:12 Test Item Value Reference Range Interpretation Comments TOTAL PROTEIN (BEAKER) (test code = 7.7 gm/dL 6.0-8.3 770) Lawn Care Worker ID - [id number] 11:35:12 Test Item Value Reference Range Interpretation Comments ALBUMIN (BEAKER) (test code = 1145) 4.6 g/dL 3.5-5.0 Lawn Care Worker ID - mmBILIRUBIN, ADULT [id number] 11:35:12 Test Item Value Reference Range Interpretation Comments BILIRUBIN TOTAL (BEAKER) (test code 0.6 mg/dL 0.2-1.2 = 377) Lawn Care Worker ID - mmBILIRUBIN, [id number] 11:35:12 Test Item Value Reference Range Interpretation Comments BILIRUBIN DIRECT (BEAKER) (test 0.2 mg/dL 0.1-0.5 code = 706) Lawn Care Worker ID - mmLACTATE DEHYDROGENASE (LDH)2022-10-15 11:35:12 Test Item Value Reference Range Interpretation Comments LACTATE DEHYDROGENASE (BEAKER) (test 141 U/L 125-220 code = 635) Lawn Care Worker ID - mmBASIC METABOLIC [id number] 11:35:11 Test Item Value Reference Range Interpretation [...] not appl icable for dialysis patien ts Lawn Care Worker ID - mmALKALINE [id number] 11:35:06 Test Item Value Reference Range Interpretation Comments ALKALINE PHOSPHATASE (BEAKER) (test 89 U/L 40-150 code = 346) Lawn Care Worker ID - [id number] 11:33:46 Test Item Value Reference Range Interpretation Comments PARTIAL THROMBOPLASTIN TIME 30.5 seconds 22.5-36.0 (BEAKER) (test code = 760) PROTHROMBIN TIME/[id number] 11:33:04 Test Item Value Reference Range Interpretation Comments PROTIME (BEAKER) (test code = 14.2 seconds 11.9-14.2 759) INR (BEAKER) (test code = 370) 1.17 <=5.90 RECOMMENDED COUMADIN/WARFARIN INR THERAPY RANGESSTANDARD DOSE: 2.0 - 3.0 Includes: PROPHYLAXIS for venous thrombosis, systemic embolization; TREATMENT for venous thrombosis and/or pulmonary embolus.HIGH RISK: Target INR is 2.5-3.5 for patients with mechanical heart valves.Urinalysis w/[id number] 11:24:13 Test Item Value Reference Range Interpretation Comments Color, UA (test code Colorless = 5778-6) Clarity, UA (test Clear code = 5767-9) Specific [place], UA 1.004 1.001-1.035 (test code = 5811-5) pH, UA (test code = 7.5 5.0-8.0 5803-2) Protein, UA (test Negative Negative code = 83164-5) Glucose, UA (test Negative Negative code = 365) Ketones, UA (test Negative Negative code = 2514-8) Bilirubin, UA (test Negative Negative code = 64452-0) Blood, UA (test code Small Negative A = 62220-7) Nitrite, UA (test Negative Negative code = 5802-4) Leukocytes, UA (test Negative Negative code = 5799-2) Urobilinogen, UA 0.2 0.2-1.0 (test code = 17390-0) RBC, UA (test code = 5 See_Comment [Autom ated 75434-8) message] The system which generated this result [...] UA See_Comment [Automate d (test code = 78469-6) messag e] The system which generated this result transmitted reference range : /HPF. The reference range was not used to interpret this result as normal/abnormal . Specimen Source (test Urine, Voided code = 0655) ARANZA (test code = ARANZA) Lawn Care Worker ID - [auto]Lawn Care Worker ID - tech Lab Interpretation Abnormal (test code = 43144-3) [id number] 11:24:13 Test Item Value Reference Range Interpretation [...] 516) SOURCE(BEAKER) (test code = Urine, Voided 2795) Lawn Care Worker ID - [auto]Lawn Care Worker ID - techCBC W/PLT COUNT & AUTO [...] (BEAKER) (test code = 2801) Cv stress [id number] 10:39:42 Test Item Value Reference Range Interpretation Comments Resting HR (test code 82 = 0106383426) Resting BP (test code 186&85 = 4964798193) Peak MET Achieved 1.0 (test code = 0609254059) Protocol Name (test Lexiscan code = 8413877234) Time in Exercise 00:01:00 Phase (test code = 3281703528) Max Systolic BP (test 186 code = 6229206548) Max Diastolic BP 85 (test code = 9878568475) Max Heart Rate (test 107 code = 8785986616) Max Predicted Heart 163 Rate (test code = 6964813345) Target HR Formula (220 - Age)*100% (test code = 8893670396) Test Indication (test chest pain code = 4117527294) Arrhy During Ex (test code = 9106977328) ECG Interp Before EX (test code = 3821110159) ECG Interp During Ex (test code = 4622556427) Ex Summary Comment (test code = 5812040355) Overall HR Response to Exercise (test code = 5318863396) Overall BP Response To Exercise (test code = 5876285247) Reason for Protocol Complete Termination (test code = 4223722736) Stress Test -Waveform interpreted in Impression (test code report associated with = 3366924094) image study. No interpretation is provided as part of this Stress ECG report.- [facility] [id number] 10:39:42 Test Item Value Reference Range Interpretation Comments Resting HR (test code 82 = 8376277638) Resting BP (test code 186&85 = 3554427672) Peak MET Achieved 1.0 (test code = 1334542619) Protocol Name (test Lexiscan code = 2504556599) Time in Exercise 00:01:00 Phase (test code = 7800074497) Max Systolic BP (test 186 code = 7779559692) Max Diastolic BP 85 (test code = 2977046387) Max Heart Rate (test 107 code = 0622061916) Max Predicted Heart 163 Rate (test code = 8642016771) Target HR Formula (220 - Age)*100% (test code = 4441473374) Test Indication (test chest pain code = 1406019679) Arrhy During Ex (test code = 7517903159) ECG Interp Before EX (test code = 3164600813) ECG Interp During Ex (test code = 6162619914) Ex Summary Comment (test code = 1107841226) Overall HR Response to Exercise (test code = 7836969838) Overall BP Response To Exercise (test code = 1371233148) Reason for Protocol Complete Termination (test code = 7084631143) Stress Test -Waveform interpreted in Impression (test code report associated with = 9648501609) image study. No interpretation is provided as part of this Stress ECG report.- [facility] 12 [id number] 21:56:15 Test Item Value Reference Range Interpretation Comments Ventricular rate (test 75 code = 253) Atrial rate (test code 75 = 255) MD interval (test code 140 = 266) QRSD [...] 09-JAN-2016 18:09,-Vent. rate has decreased BY 42 RTF-Ifl-vmlwleyq change in ST segment in Inferior leads-T wave inversion now evident in Inferior leads- [facility] 12 [id number] 21:56:15 Test Item Value Reference Range Interpretation Comments Ventricular rate (test 75 code = 253) Atrial rate (test code 75 = 255) MD interval (test code 140 = 266) QRSD [...] 09-JAN-2016 18:09,-Vent. rate has decreased BY 42 HUS-Gna-xsglgffa change in ST segment in Inferior leads-T wave inversion now evident in Inferior leads- [address]2023-03-14 21:56:15 Test Item Value Reference Range Interpretation Comments Ventricular rate (test 75 code = 253) Atrial rate (test code 75 = 255) MD interval (test code 140 = 266) QRSD [...] 09-JAN-2016 18:09,-Vent. rate has decreased BY 42 LCI-Hsp-ywniakuc change in ST segment in Inferior leads-T wave inversion now evident in Inferior leads- [address]2023-03-14 21:56:15 Test Item Value Reference Range Interpretation Comments Ventricular rate (test 75 code = 253) Atrial rate (test code 75 = 255) MD interval (test code 140 = 266) QRSD [...] 09-JAN-2016 18:09,-Vent. rate has decreased BY 42 CVS-Amv-nosugfbm change in ST segment in Inferior leads-T wave inversion now evident in Inferior leads- [facility] ED Preliminary Interpretation - Not an [id number] 02:45:35 Test Item Value Reference Range Interpretation Comments ARANZA (test code = ARANZA) Adali Arrington MD [facility]20[facility] 1[facility] Interpretation - Not an OrderPerformed by: Adali Arrington MDAuthorized by: Adali Arrington MD ECG reviewed by ED Physician in the absence of a camera repair technician: yes Interpretation: Interpretation: abnormal Rate: ECG rate: 75 ECG rate assessment: normal Rhythm: Rhythm: sinus rhythm ST segments: ST segments: Non-specificT waves: T waves: inverted Inverted: I and aVLComments: No STEMI Lab Interpretation Abnormal (test code = 40884-5) [facility] ED Preliminary Interpretation - Not an [id number] 02:45:35 Test Item Value Reference Range Interpretation Comments ARANZA (test code = ARANZA) Adali Arrington MD 08/20/2022 1:[facility] Interpretation - Not an OrderPerformed by: Adali Arrington MDAuthorized by: Adali Arrington MD ECG reviewed by ED Physician in the absence of a camera repair technician: yes Interpretation: Interpretation: abnormal Rate: ECG rate: 75 ECG rate assessment: normal Rhythm: Rhythm: sinus rhythm ST segments: ST segments: Non-specificT waves: T waves: inverted Inverted: I and aVLComments: No STEMI Lab Interpretation Abnormal (test code = 25719-0) [facility] ED Preliminary Interpretation - Not an [id number] 02:45:35 Test Item Value Reference Range Interpretation Comments ARANZA (test code = ARANZA) Adali Arrington MD 08/20/2022 1:[facility] Preliminary Interpretation - Not an OrderPerformed by: Adali Arrington MDAuthorized by: Adali Arrington MD ECG reviewed by ED Physician in the absence of a camera repair technician: yes Interpretation: Interpretation: abnormal Rate: ECG rate: 75 ECG rate assessment: normal Rhythm: Rhythm: sinus rhythm ST segments: ST segments: Non-specificT waves: T waves: inverted Inverted: I and aVLComments: No STEMI Lab Interpretation Abnormal (test code = 62604-3) [facility] ED Preliminary Interpretation - Not an [id number] 02:45:35 Test Item Value Reference Range Interpretation Comments ARANZA (test code = ARANZA) Adali Arrington MD 08/20/2022 1:46 [facility] [place] Preliminary Interpretation - Not an OrderPerformed by: Adali Arrington MDAuthorized by: Adali Arrington MD ECG reviewed by ED Physician in the absence of a camera repair technician: yes Interpretation: Interpretation: abnormal Rate: ECG rate: 75 ECG rate assessment: normal Rhythm: Rhythm: sinus rhythm ST segments: ST segments: Non-specificT waves: T waves: inverted Inverted: I and aVLComments: No STEMI Lab Interpretation Abnormal (test code = 59626-0) [facility] RNA [Presence] in Respiratory specimen by CALEB with probe [id number] 22:21:34 Test Item Value Reference Range Interpretation Comments SARS-CoV-2 (COVID-19) RNA Not detected Not-Detected [Presence] in Respiratory specimen by CALEB with probe detection (test code = 87132-8) [facility] [id number] 09:58:00 Test Item Value Reference Range Interpretation Comments Glucose Lvl (test code = Glucose Lvl) 101 70-99 [facility] [id number] 09:58:00 Test Item Value Reference Range Interpretation Comments BUN (test code = BUN) 15 7-22 [facility] [id number] 09:58:00 Test Item Value Reference Range Interpretation Comments Potassium Lvl (test code = Potassium 3.9 3.5-5.1 Lvl) [facility] [id number] 09:58:00 Test Item Value Reference Range Interpretation Comments Chloride Lvl (test code = Chloride Lvl) 105 95-109 [facility]2017-08-10 09:58:00 Test Item Value Reference Range Interpretation Comments CO2 (test code = CO2) 22 24-32 [facility]2017-08-10 09:58:00 Test Item Value Reference Range Interpretation Comments Creatinine Lvl (test code = Creatinine 1.29 0.50-1.40 Lvl) [facility]2017-08-10 09:58:00 Test Item Value Reference Range Interpretation Comments eGFR (test code = eGFR) 63 [facility]2017-08-10 09:58:00 Test Item Value Reference Range Interpretation Comments AGAP (test code = AGAP) 14.9 10.0-20.0 [facility]2017-08-10 09:58:00 Test Item Value Reference Range Interpretation Comments Sodium Lvl (test code = Sodium Lvl) 138 135-145 [facility]2017-08-10 09:58:00 Test Item Value Reference Range Interpretation Comments Calcium Lvl (test code = Calcium Lvl) 8.4 8.5-10.5 [facility]2017-08-10 09:58:00 Test Item Value Reference Range Interpretation Comments Glucose Lvl (test code = Glucose Lvl) 101 70-99 [facility]2017-08-10 09:58:00 Test Item Value Reference Range Interpretation Comments BUN (test code = BUN) 15 7-22 [facility]2017-08-10 09:58:00 Test Item Value Reference Range Interpretation Comments Potassium Lvl (test code = Potassium 3.9 3.5-5.1 Lvl) [facility]2017-08-10 09:58:00 Test Item Value Reference Range Interpretation Comments Chloride Lvl (test code = Chloride Lvl) 105 95-109 [facility]2017-08-10 09:58:00 Test Item Value Reference Range Interpretation Comments CO2 (test code = CO2) 22 24-32 [facility]2017-08-10 09:58:00 Test Item Value Reference Range Interpretation Comments Creatinine Lvl (test code = Creatinine 1.29 0.50-1.40 Lvl) [facility]2017-08-10 09:58:00 Test Item Value Reference Range Interpretation Comments eGFR (test code = eGFR) 63 [facility]2017-08-10 09:58:00 Test Item Value Reference Range Interpretation Comments AGAP (test code = AGAP) 14.9 10.0-20.0 [facility]2017-08-10 09:58:00 Test Item Value Reference Range Interpretation Comments Sodium Lvl (test code = Sodium Lvl) 138 135-145 [facility]2017-08-10 09:58:00 Test Item Value Reference Range Interpretation Comments Calcium Lvl (test code = Calcium Lvl) 8.4 8.5-10.5 [facility]2017-08-10 09:58:00 Test Item Value Reference Range Interpretation Comments Glucose Lvl (test code = Glucose Lvl) 101 70-99 [facility]2017-08-10 09:58:00 Test Item Value Reference Range Interpretation Comments BUN (test code = BUN) 15 7-22 [facility]2017-08-10 09:58:00 Test Item Value Reference Range Interpretation Comments Potassium Lvl (test code = Potassium 3.9 3.5-5.1 Lvl) [facility]2017-08-10 09:58:00 Test Item Value Reference Range Interpretation Comments Chloride Lvl (test code = Chloride Lvl) 105 95-109 [facility]2017-08-10 09:58:00 Test Item Value Reference Range Interpretation Comments CO2 (test code = CO2) 22 24-32 [facility]2017-08-10 09:58:00 Test Item Value Reference Range Interpretation Comments Creatinine Lvl (test code = Creatinine 1.29 0.50-1.40 Lvl) [facility]2017-08-10 09:58:00 Test Item Value Reference Range Interpretation Comments eGFR (test code = eGFR) 63 [facility]2017-08-10 09:58:00 Test Item Value Reference Range Interpretation Comments AGAP (test code = AGAP) 14.9 10.0-20.0 [facility]2017-08-10 09:58:00 Test Item Value Reference Range Interpretation Comments Sodium Lvl (test code = Sodium Lvl) 138 135-145 [facility]2017-08-10 09:58:00 Test Item Value Reference Range Interpretation Comments Calcium Lvl (test code = Calcium Lvl) 8.4 8.5-10.5 [facility]2017-08-10 09:58:00 Test Item Value Reference Range Interpretation Comments Glucose Lvl (test code = Glucose Lvl) 101 70-99 [facility]2017-08-10 09:58:00 Test Item Value Reference Range Interpretation Comments BUN (test code = BUN) 15 - [facility]2017-08-10 09:58:00 Test Item Value Reference Range Interpretation Comments Potassium Lvl (test code = Potassium 3.9 3.5-5.1 Lvl) [facility]2017-08-10 09:58:00 Test Item Value Reference Range Interpretation Comments Chloride Lvl (test code = Chloride Lvl) 105 95-109 [facility]2017-08-10 09:58:00 Test Item Value Reference Range Interpretation Comments CO2 (test code = CO2) 22 -32 [facility]2017-08-10 09:58:00 Test Item Value Reference Range Interpretation Comments Creatinine Lvl (test code = Creatinine 1.29 0.50-1.40 Lvl) [facility]2017-08-10 09:58:00 Test Item Value Reference Range Interpretation Comments eGFR (test code = eGFR) 63 [facility]2017-08-10 09:58:00 Test Item Value Reference Range Interpretation Comments AGAP (test code = AGAP) 14.9 10.0-20.0 [facility]2017-08-10 09:58:00 Test Item Value Reference Range Interpretation Comments Sodium Lvl (test code = Sodium Lvl) 138 135-145 [facility]2017-08-10 09:58:00 Test Item Value Reference Range Interpretation Comments Calcium Lvl (test code = Calcium Lvl) 8.4 8.5-10.5 [facility]2017-08-10 09:58:00 Test Item Value Reference Range Interpretation Comments Glucose Lvl (test code = Glucose Lvl) 101 70-99 [facility]2017-08-10 09:58:00 Test Item Value Reference Range Interpretation Comments BUN (test code = BUN) 15 - [facility]2017-08-10 09:58:00 Test Item Value Reference Range Interpretation Comments Potassium Lvl (test code = Potassium 3.9 3.5-5.1 Lvl) [facility]2017-08-10 09:58:00 Test Item Value Reference Range Interpretation Comments Chloride Lvl (test code = Chloride Lvl) 105 95-109 [facility]2017-08-10 09:58:00 Test Item Value Reference Range Interpretation Comments CO2 (test code = CO2) 22 24-32 [facility]2017-08-10 09:58:00 Test Item Value Reference Range Interpretation Comments Creatinine Lvl (test code = Creatinine 1.29 0.50-1.40 Lvl) [facility]2017-08-10 09:58:00 Test Item Value Reference Range Interpretation Comments eGFR (test code = eGFR) 63 [facility]2017-08-10 09:58:00 Test Item Value Reference Range Interpretation Comments eGFR (test code = eGFR) 63 [facility]2017-08-10 09:58:00 Test Item Value Reference Range Interpretation Comments AGAP (test code = AGAP) 14.9 10.0-20.0 [facility]2017-08-10 09:58:00 Test Item Value Reference Range Interpretation Comments AGAP (test code = AGAP) 14.9 10.0-20.0 [facility]2017-08-10 09:58:00 Test Item Value Reference Range Interpretation Comments Sodium Lvl (test code = Sodium Lvl) 138 135-145 [facility]2017-08-10 09:58:00 Test Item Value Reference Range Interpretation Comments Calcium Lvl (test code = Calcium Lvl) 8.4 8.5-10.5 Formerly [facility]2017-08-10 09:58:00 Test Item Value Reference Range Interpretation Comments Glucose Lvl (test code = Glucose Lvl) 101 70-99 [facility]ly [facility]2017-08-10 09:58:00 Test Item Value Reference Range Interpretation Comments BUN (test code = BUN) 15 7-22 Formerly [facility]2017-08-10 09:58:00 Test Item Value Reference Range Interpretation Comments Potassium Lvl (test code = Potassium 3.9 3.5-5.1 Lvl) Formerly [facility]2017-08-10 09:58:00 Test Item Value Reference Range Interpretation Comments Chloride Lvl (test code = Chloride Lvl) 105 95-109 Formerly [facility]2017-08-10 09:58:00 Test Item Value Reference Range Interpretation Comments CO2 (test code = CO2) 22 24-32 Formerly [facility]2017-08-10 09:58:00 Test Item Value Reference Range Interpretation Comments Creatinine Lvl (test code = Creatinine 1.29 0.50-1.40 Lvl) Formerly [facility]2017-08-10 09:58:00 Test Item Value Reference Range Interpretation Comments Sodium Lvl (test code = Sodium Lvl) 138 135-145 Formerly [facility]2017-08-10 09:58:00 Test Item Value Reference Range Interpretation Comments Calcium Lvl (test code = Calcium Lvl) 8.4 8.5-10.5 Formerly [facility]2017-08-10 09:58:00 Test Item Value Reference Range Interpretation Comments Glucose Lvl (test code = Glucose Lvl) 101 70-99 [facility]2017-08-10 09:58:00 Test Item Value Reference Range Interpretation Comments BUN (test code = BUN) 15 7-22 [facility]2017-08-10 09:58:00 Test Item Value Reference Range Interpretation Comments Potassium Lvl (test code = Potassium 3.9 3.5-5.1 Lvl) Formerly [facility]2017-08-10 09:58:00 Test Item Value Reference Range Interpretation Comments Chloride Lvl (test code = Chloride Lvl) 105 95-109 Former[facility]2017-08-10 09:58:00 Test Item Value Reference Range Interpretation Comments CO2 (test code = CO2) -32 Former[facility]2017-08-10 09:58:00 Test Item Value Reference Range Interpretation Comments Creatinine Lvl (test code = Creatinine 1.29 0.50-1.40 Lvl) Formerly [facility]2017-08-10 09:58:00 Test Item Value Reference Range Interpretation Comments eGFR (test code = eGFR) 63 [facility]2017-08-10 09:58:00 Test Item Value Reference Range Interpretation Comments AGAP (test code = AGAP) 14.9 10.0-20.0 Formerly [facility]2017-08-10 09:58:00 Test Item Value Reference Range Interpretation Comments Sodium Lvl (test code = Sodium Lvl) 138 135-145 Former[facility]2017-08-10 09:58:00 Test Item Value Reference Range Interpretation Comments Calcium Lvl (test code = Calcium Lvl) 8.4 8.5-10.5 Former[facility]2017-08-10 09:58:00 Test Item Value Reference Range Interpretation Comments Glucose Lvl (test code = Glucose Lvl) 101 70-99 [facility]2017-08-10 09:58:00 Test Item Value Reference Range Interpretation Comments BUN (test code = BUN) 15 7-22 [facility]2017-08-10 09:58:00 Test Item Value Reference Range Interpretation Comments Potassium Lvl (test code = Potassium 3.9 3.5-5.1 Lvl) Formerly [facility]2017-08-10 09:58:00 Test Item Value Reference Range Interpretation Comments Chloride Lvl (test code = Chloride Lvl) 105 95-109 [facility]2017-08-10 09:58:00 Test Item Value Reference Range Interpretation Comments CO2 (test code = CO2) 22 24-32 [facility]2017-08-10 09:58:00 Test Item Value Reference Range Interpretation Comments Creatinine Lvl (test code = Creatinine 1.29 0.50-1.40 Lvl) [facility]ly [facility]2017-08-10 09:58:00 Test Item Value Reference Range Interpretation Comments eGFR (test code = eGFR) 63 [facility]2017-08-10 09:58:00 Test Item Value Reference Range Interpretation Comments AGAP (test code = AGAP) 14.9 10.0-20.0 [facility]2017-08-10 09:58:00 Test Item Value Reference Range Interpretation Comments Sodium Lvl (test code = Sodium Lvl) 138 135-145 Former[facility]2017-08-10 09:58:00 Test Item Value Reference Range Interpretation Comments Calcium Lvl (test code = Calcium Lvl) 8.4 8.5-10.5 [facility]2017-08-10 09:58:00 Test Item Value Reference Range Interpretation Comments Glucose Lvl (test code = Glucose Lvl) 101 70-99 [facility]2017-08-10 09:58:00 Test Item Value Reference Range Interpretation Comments BUN (test code = BUN) 15 7-22 [facility]2017-08-10 09:58:00 Test Item Value Reference Range Interpretation Comments Potassium Lvl (test code = Potassium 3.9 3.5-5.1 Lvl) Former[facility]2017-08-10 09:58:00 Test Item Value Reference Range Interpretation Comments Chloride Lvl (test code = Chloride Lvl) 105 95-109 [facility]2017-08-10 09:58:00 Test Item Value Reference Range Interpretation Comments CO2 (test code = CO2) 22 24-32 [facility]2017-08-10 09:58:00 Test Item Value Reference Range Interpretation Comments Creatinine Lvl (test code = Creatinine 1.29 0.50-1.40 Lvl) [facility]2017-08-10 09:58:00 Test Item Value Reference Range Interpretation Comments eGFR (test code = eGFR) 63 [facility]2017-08-10 09:58:00 Test Item Value Reference Range Interpretation Comments AGAP (test code = AGAP) 14.9 10.0-20.0 [facility]2017-08-10 09:58:00 Test Item Value Reference Range Interpretation Comments Sodium Lvl (test code = Sodium Lvl) 138 135-145 [facility]2017-08-10 09:58:00 Test Item Value Reference Range Interpretation Comments Calcium Lvl (test code = Calcium Lvl) 8.4 8.5-10.5 [facility]2017-08-10 09:58:00 Test Item Value Reference Range Interpretation Comments Glucose Lvl (test code = Glucose Lvl) 101 70-99 [facility]2017-08-10 09:58:00 Test Item Value Reference Range Interpretation Comments BUN (test code = BUN) 15 7-22 [facility]2017-08-10 09:58:00 Test Item Value Reference Range Interpretation Comments Potassium Lvl (test code = Potassium 3.9 3.5-5.1 Lvl) [facility]2017-08-10 09:58:00 Test Item Value Reference Range Interpretation Comments Chloride Lvl (test code = Chloride Lvl) 105 95-109 [facility]2017-08-10 09:58:00 Test Item Value Reference Range Interpretation Comments CO2 (test code = CO2) 22 24-32 [facility]2017-08-10 09:58:00 Test Item Value Reference Range Interpretation Comments Creatinine Lvl (test code = Creatinine 1.29 0.50-1.40 Lvl) [facility]2017-08-10 09:58:00 Test Item Value Reference Range Interpretation Comments eGFR (test code = eGFR) 63 [facility]2017-08-10 09:58:00 Test Item Value Reference Range Interpretation Comments AGAP (test code = AGAP) 14.9 10.0-20.0 [facility]2017-08-10 09:58:00 Test Item Value Reference Range Interpretation Comments Sodium Lvl (test code = Sodium Lvl) 138 135-145 [facility]2017-08-10 09:58:00 Test Item Value Reference Range Interpretation Comments Calcium Lvl (test code = Calcium Lvl) 8.4 8.5-10.5 [facility]2017-08-10 09:58:00 Test Item Value Reference Range Interpretation Comments Glucose Lvl (test code = Glucose Lvl) 101 70-99 [facility]2017-08-10 09:58:00 Test Item Value Reference Range Interpretation Comments BUN (test code = BUN) 15 7-22 [facility]2017-08-10 09:58:00 Test Item Value Reference Range Interpretation Comments Potassium Lvl (test code = Potassium 3.9 3.5-5.1 Lvl) [facility]2017-08-10 09:58:00 Test Item Value Reference Range Interpretation Comments Chloride Lvl (test code = Chloride Lvl) 105 95-109 [facility]2017-08-10 09:58:00 Test Item Value Reference Range Interpretation Comments CO2 (test code = CO2) 22 24-32 [facility]2017-08-10 09:58:00 Test Item Value Reference Range Interpretation Comments Creatinine Lvl (test code = Creatinine 1.29 0.50-1.40 Lvl) [facility]2017-08-10 09:58:00 Test Item Value Reference Range Interpretation Comments eGFR (test code = eGFR) 63 [facility]2017-08-10 09:58:00 Test Item Value Reference Range Interpretation Comments AGAP (test code = AGAP) 14.9 10.0-20.0 [facility]2017-08-10 09:58:00 Test Item Value Reference Range Interpretation Comments Sodium Lvl (test code = Sodium Lvl) 138 135-145 [facility]2017-08-10 09:58:00 Test Item Value Reference Range Interpretation Comments Calcium Lvl (test code = Calcium Lvl) 8.4 8.5-10.5 [facility]2017-08-10 09:58:00 Test Item Value Reference Range Interpretation Comments Glucose Lvl (test code = Glucose Lvl) 101 70-99 [facility]2017-08-10 09:58:00 Test Item Value Reference Range Interpretation Comments BUN (test code = BUN) 15 7-22 [facility]2017-08-10 09:58:00 Test Item Value Reference Range Interpretation Comments Potassium Lvl (test code = Potassium 3.9 3.5-5.1 Lvl) [facility]2017-08-10 09:58:00 Test Item Value Reference Range Interpretation Comments Chloride Lvl (test code = Chloride Lvl) 105 95-109 [facility]2017-08-10 09:58:00 Test Item Value Reference Range Interpretation Comments CO2 (test code = CO2) 22 24-32 [facility]2017-08-10 09:58:00 Test Item Value Reference Range Interpretation Comments Creatinine Lvl (test code = Creatinine 1.29 0.50-1.40 Lvl) [facility]2017-08-10 09:58:00 Test Item Value Reference Range Interpretation Comments eGFR (test code = eGFR) 63 [facility]2017-08-10 09:58:00 Test Item Value Reference Range Interpretation Comments AGAP (test code = AGAP) 14.9 10.0-20.0 [facility]2017-08-10 09:58:00 Test Item Value Reference Range Interpretation Comments Sodium Lvl (test code = Sodium Lvl) 138 135-145 [facility]2017-08-10 09:58:00 Test Item Value Reference Range Interpretation Comments Calcium Lvl (test code = Calcium Lvl) 8.4 8.5-10.5 [facility]2017-08-10 09:58:00 Test Item Value Reference Range Interpretation Comments Glucose Lvl (test code = Glucose Lvl) 101 70-99 [facility]2017-08-10 09:58:00 Test Item Value Reference Range Interpretation Comments BUN (test code = BUN) 15 - [facility]2017-08-10 09:58:00 Test Item Value Reference Range Interpretation Comments Potassium Lvl (test code = Potassium 3.9 3.5-5.1 Lvl) [facility]2017-08-10 09:58:00 Test Item Value Reference Range Interpretation Comments Chloride Lvl (test code = Chloride Lvl) 105 95-109 [facility]2017-08-10 09:58:00 Test Item Value Reference Range Interpretation Comments CO2 (test code = CO2) 22 24-32 [facility]2017-08-10 09:58:00 Test Item Value Reference Range Interpretation Comments Creatinine Lvl (test code = Creatinine 1.29 0.50-1.40 Lvl) [facility]2017-08-10 09:58:00 Test Item Value Reference Range Interpretation Comments eGFR (test code = eGFR) 63 [facility]2017-08-10 09:58:00 Test Item Value Reference Range Interpretation Comments AGAP (test code = AGAP) 14.9 10.0-20.0 [facility]2017-08-10 09:58:00 Test Item Value Reference Range Interpretation Comments Sodium Lvl (test code = Sodium Lvl) 138 135-145 [facility]2017-08-10 09:58:00 Test Item Value Reference Range Interpretation Comments Calcium Lvl (test code = Calcium Lvl) 8.4 8.5-10.5 [facility]2017-08-10 09:58:00 Test Item Value Reference Range Interpretation Comments Glucose Lvl (test code = Glucose Lvl) 101 70-99 [facility]2017-08-10 09:58:00 Test Item Value Reference Range Interpretation Comments BUN (test code = BUN) 15 - [facility]2017-08-10 09:58:00 Test Item Value Reference Range Interpretation Comments Potassium Lvl (test code = Potassium 3.9 3.5-5.1 Lvl) [facility]2017-08-10 09:58:00 Test Item Value Reference Range Interpretation Comments Chloride Lvl (test code = Chloride Lvl) 105 95-109 [facility]2017-08-10 09:58:00 Test Item Value Reference Range Interpretation Comments CO2 (test code = CO2) 22 24-32 [facility]2017-08-10 09:58:00 Test Item Value Reference Range Interpretation Comments Creatinine Lvl (test code = Creatinine 1.29 0.50-1.40 Lvl) [facility]2017-08-10 09:58:00 Test Item Value Reference Range Interpretation Comments eGFR (test code = eGFR) 63 [facility]2017-08-10 09:58:00 Test Item Value Reference Range Interpretation Comments AGAP (test code = AGAP) 14.9 10.0-20.0 [facility]2017-08-10 09:58:00 Test Item Value Reference Range Interpretation Comments Sodium Lvl (test code = Sodium Lvl) 138 135-145 [facility]2017-08-10 09:58:00 Test Item Value Reference Range Interpretation Comments Calcium Lvl (test code = Calcium Lvl) 8.4 8.5-10.5 [facility]2017-08-10 09:58:00 Test Item Value Reference Range Interpretation Comments Glucose Lvl (test code = Glucose Lvl) 101 70-99 [facility]2017-08-10 09:58:00 Test Item Value Reference Range Interpretation Comments BUN (test code = BUN) 15 7-22 [facility]2017-08-10 09:58:00 Test Item Value Reference Range Interpretation Comments Potassium Lvl (test code = Potassium 3.9 3.5-5.1 Lvl) [facility]2017-08-10 09:58:00 Test Item Value Reference Range Interpretation Comments Chloride Lvl (test code = Chloride Lvl) 105 95-109 [facility]2017-08-10 09:58:00 Test Item Value Reference Range Interpretation Comments CO2 (test code = CO2) 22 24-32 [facility]2017-08-10 09:58:00 Test Item Value Reference Range Interpretation Comments Creatinine Lvl (test code = Creatinine 1.29 0.50-1.40 Lvl) [facility]2017-08-10 09:58:00 Test Item Value Reference Range Interpretation Comments eGFR (test code = eGFR) 63 [facility]2017-08-10 09:58:00 Test Item Value Reference Range Interpretation Comments AGAP (test code = AGAP) 14.9 10.0-20.0 [facility]2017-08-10 09:58:00 Test Item Value Reference Range Interpretation Comments Sodium Lvl (test code = Sodium Lvl) 138 135-145 [facility]2017-08-10 09:58:00 Test Item Value Reference Range Interpretation Comments Calcium Lvl (test code = Calcium Lvl) 8.4 8.5-10.5 [facility]2017-08-10 09:58:00 Test Item Value Reference Range Interpretation Comments Glucose Lvl (test code = Glucose Lvl) 101 70-99 [facility]2017-08-10 09:58:00 Test Item Value Reference Range Interpretation Comments BUN (test code = BUN) 15 7-22 [facility]2017-08-10 09:58:00 Test Item Value Reference Range Interpretation Comments Potassium Lvl (test code = Potassium 3.9 3.5-5.1 Lvl) [facility]2017-08-10 09:58:00 Test Item Value Reference Range Interpretation Comments Chloride Lvl (test code = Chloride Lvl) 105 95-109 [facility]2017-08-10 09:58:00 Test Item Value Reference Range Interpretation Comments CO2 (test code = CO2) 22 24-32 [facility]2017-08-10 09:58:00 Test Item Value Reference Range Interpretation Comments Creatinine Lvl (test code = Creatinine 1.29 0.50-1.40 Lvl) [facility]2017-08-10 09:58:00 Test Item Value Reference Range Interpretation Comments eGFR (test code = eGFR) 63 [facility]2017-08-10 09:58:00 Test Item Value Reference Range Interpretation Comments AGAP (test code = AGAP) 14.9 10.0-20.0 [facility]2017-08-10 09:58:00 Test Item Value Reference Range Interpretation Comments Sodium Lvl (test code = Sodium Lvl) 138 135-145 [facility]2017-08-10 09:58:00 Test Item Value Reference Range Interpretation Comments eGFR (test code = eGFR) 63 [facility]2017-08-10 09:58:00 Test Item Value Reference Range Interpretation Comments AGAP (test code = AGAP) 14.9 10.0-20.0 [facility]2017-08-10 09:58:00 Test Item Value Reference Range Interpretation Comments Sodium Lvl (test code = Sodium Lvl) 138 135-145 [facility]2017-08-10 09:58:00 Test Item Value Reference Range Interpretation Comments Calcium Lvl (test code = Calcium Lvl) 8.4 8.5-10.5 [facility]2017-08-10 09:58:00 Test Item Value Reference Range Interpretation Comments Glucose Lvl (test code = Glucose Lvl) 101 70-99 [facility]2017-08-10 09:58:00 Test Item Value Reference Range Interpretation Comments BUN (test code = BUN) 15 12-25 [facility]2017-08-10 09:58:00 Test Item Value Reference Range Interpretation Comments Calcium Lvl (test code = Calcium Lvl) 8.4 8.5-10.5 [facility]2017-08-10 09:58:00 Test Item Value Reference Range Interpretation Comments Potassium Lvl (test code = Potassium 3.9 3.5-5.1 Lvl) [facility]2017-08-10 09:58:00 Test Item Value Reference Range Interpretation Comments Chloride Lvl (test code = Chloride Lvl) 105 95-109 [facility]2017-08-10 09:58:00 Test Item Value Reference Range Interpretation Comments CO2 (test code = CO2) 22 24-32 [facility]2017-08-10 09:58:00 Test Item Value Reference Range Interpretation Comments Creatinine Lvl (test code = Creatinine 1.29 0.50-1.40 Lvl) [facility]2017-08-10 09:58:00 Test Item Value Reference Range Interpretation Comments Glucose Lvl (test code = Glucose Lvl) 101 70-99 [facility]2017-08-10 09:58:00 Test Item Value Reference Range Interpretation Comments BUN (test code = BUN) 15 - [facility]2017-08-10 09:58:00 Test Item Value Reference Range Interpretation Comments Potassium Lvl (test code = Potassium 3.9 3.5-5.1 Lvl) [facility]2017-08-10 09:58:00 Test Item Value Reference Range Interpretation Comments Chloride Lvl (test code = Chloride Lvl) 105 95-109 [facility]2017-08-10 09:58:00 Test Item Value Reference Range Interpretation Comments CO2 (test code = CO2) 24-32 [facility]2017-08-10 09:58:00 Test Item Value Reference Range Interpretation Comments Creatinine Lvl (test code = Creatinine 1.29 0.50-1.40 Lvl) [facility]2017-08-10 09:58:00 Test Item Value Reference Range Interpretation Comments eGFR (test code = eGFR) 63 [facility]2017-08-10 09:58:00 Test Item Value Reference Range Interpretation Comments AGAP (test code = AGAP) 14.9 10.0-20.0 [facility]2017-08-10 09:58:00 Test Item Value Reference Range Interpretation Comments Sodium Lvl (test code = Sodium Lvl) 138 135-145 [facility]2017-08-10 09:58:00 Test Item Value Reference Range Interpretation Comments Calcium Lvl (test code = Calcium Lvl) 8.4 8.5-10.5 [facility]2017-08-10 09:58:00 Test Item Value Reference Range Interpretation Comments Glucose Lvl (test code = Glucose Lvl) 101 70-99 [facility]2017-08-10 09:58:00 Test Item Value Reference Range Interpretation Comments BUN (test code = BUN) 15 7-22 [facility]2017-08-10 09:58:00 Test Item Value Reference Range Interpretation Comments Potassium Lvl (test code = Potassium 3.9 3.5-5.1 Lvl) [facility]2017-08-10 09:58:00 Test Item Value Reference Range Interpretation Comments Chloride Lvl (test code = Chloride Lvl) 105 95-109 [facility]2017-08-10 09:58:00 Test Item Value Reference Range Interpretation Comments CO2 (test code = CO2) 22 24-32 [facility]2017-08-10 09:58:00 Test Item Value Reference Range Interpretation Comments Creatinine Lvl (test code = Creatinine 1.29 0.50-1.40 Lvl) [facility]2017-08-10 09:58:00 Test Item Value Reference Range Interpretation Comments eGFR (test code = eGFR) 63 [facility]2017-08-10 09:58:00 Test Item Value Reference Range Interpretation Comments AGAP (test code = AGAP) 14.9 10.0-20.0 [facility]2017-08-10 09:58:00 Test Item Value Reference Range Interpretation Comments Sodium Lvl (test code = Sodium Lvl) 138 135-145 [facility]2017-08-10 09:58:00 Test Item Value Reference Range Interpretation Comments Calcium Lvl (test code = Calcium Lvl) 8.4 8.5-10.5 [facility]2017-08-10 09:58:00 Test Item Value Reference Range Interpretation Comments Glucose Lvl (test code = Glucose Lvl) 101 70-99 [facility]2017-08-10 09:58:00 Test Item Value Reference Range Interpretation Comments BUN (test code = BUN) 15 7-22 [facility]2017-08-10 09:58:00 Test Item Value Reference Range Interpretation Comments Potassium Lvl (test code = Potassium 3.9 3.5-5.1 Lvl) [facility]2017-08-10 09:58:00 Test Item Value Reference Range Interpretation Comments Chloride Lvl (test code = Chloride Lvl) 105 95-109 [facility]2017-08-10 09:58:00 Test Item Value Reference Range Interpretation Comments CO2 (test code = CO2) 22 24-32 [facility]2017-08-10 09:58:00 Test Item Value Reference Range Interpretation Comments Creatinine Lvl (test code = Creatinine 1.29 0.50-1.40 Lvl) [facility]2017-08-10 09:58:00 Test Item Value Reference Range Interpretation Comments eGFR (test code = eGFR) 63 [facility]2017-08-10 09:58:00 Test Item Value Reference Range Interpretation Comments AGAP (test code = AGAP) 14.9 10.0-20.0 [facility]2017-08-10 09:58:00 Test Item Value Reference Range Interpretation Comments Sodium Lvl (test code = Sodium Lvl) 138 135-145 [facility]2017-08-10 09:58:00 Test Item Value Reference Range Interpretation Comments Calcium Lvl (test code = Calcium Lvl) 8.4 8.5-10.5 Formerly [facility]2017-08-10 09:58:00 Test Item Value Reference Range Interpretation Comments Glucose Lvl (test code = Glucose Lvl) 101 70-99 [facility]ly [facility]2017-08-10 09:58:00 Test Item Value Reference Range Interpretation Comments BUN (test code = BUN) 15 7-22 [facility]ly [facility]2017-08-10 09:58:00 Test Item Value Reference Range Interpretation Comments Potassium Lvl (test code = Potassium 3.9 3.5-5.1 Lvl) Formerly [facility]2017-08-10 09:58:00 Test Item Value Reference Range Interpretation Comments Chloride Lvl (test code = Chloride Lvl) 105 95-109 Formerly [facility]2017-08-10 09:58:00 Test Item Value Reference Range Interpretation Comments CO2 (test code = CO2) 22 24-32 Formerly [facility]2017-08-10 09:58:00 Test Item Value Reference Range Interpretation Comments Creatinine Lvl (test code = Creatinine 1.29 0.50-1.40 Lvl) Formerly [facility]2017-08-10 09:58:00 Test Item Value Reference Range Interpretation Comments eGFR (test code = eGFR) 63 [facility]2017-08-10 09:58:00 Test Item Value Reference Range Interpretation Comments AGAP (test code = AGAP) 14.9 10.0-20.0 Formerly [facility]2017-08-10 09:58:00 Test Item Value Reference Range Interpretation Comments Sodium Lvl (test code = Sodium Lvl) 138 135-145 Formerly [facility]2017-08-10 09:58:00 Test Item Value Reference Range Interpretation Comments Calcium Lvl (test code = Calcium Lvl) 8.4 8.5-10.5 Formerly [facility]2017-08-10 09:58:00 Test Item Value Reference Range Interpretation Comments Glucose Lvl (test code = Glucose Lvl) 101 70-99 [facility]2017-08-10 09:58:00 Test Item Value Reference Range Interpretation Comments BUN (test code = BUN) 15 12-25 [facility]2017-08-10 09:58:00 Test Item Value Reference Range Interpretation Comments Potassium Lvl (test code = Potassium 3.9 3.5-5.1 Lvl) Formerly [facility]2017-08-10 09:58:00 Test Item Value Reference Range Interpretation Comments Chloride Lvl (test code = Chloride Lvl) 105 95-109 [facility]2017-08-10 09:58:00 Test Item Value Reference Range Interpretation Comments CO2 (test code = CO2) 22 24-32 [facility]2017-08-10 09:58:00 Test Item Value Reference Range Interpretation Comments Creatinine Lvl (test code = Creatinine 1.29 0.50-1.40 Lvl) Formerly [facility]2017-08-10 09:58:00 Test Item Value Reference Range Interpretation Comments eGFR (test code = eGFR) 63 [facility]2017-08-10 09:58:00 Test Item Value Reference Range Interpretation Comments AGAP (test code = AGAP) 14.9 10.0-20.0 [facility]2017-08-10 09:58:00 Test Item Value Reference Range Interpretation Comments Sodium Lvl (test code = Sodium Lvl) 138 135-145 [facility]2017-08-10 09:58:00 Test Item Value Reference Range Interpretation Comments Calcium Lvl (test code = Calcium Lvl) 8.4 8.5-10.5 [facility]2017-08-10 09:58:00 Test Item Value Reference Range Interpretation Comments Glucose Lvl (test code = Glucose Lvl) 101 70-99 [facility]2017-08-10 09:58:00 Test Item Value Reference Range Interpretation Comments Glucose Lvl (test code = Glucose Lvl) 101 70-99 [facility]2017-08-10 09:58:00 Test Item Value Reference Range Interpretation Comments BUN (test code = BUN) 15 - [facility]2017-08-10 09:58:00 Test Item Value Reference Range Interpretation Comments Potassium Lvl (test code = Potassium 3.9 3.5-5.1 Lvl) Former[facility]2017-08-10 09:58:00 Test Item Value Reference Range Interpretation Comments Chloride Lvl (test code = Chloride Lvl) 105 95-109 [facility]2017-08-10 09:58:00 Test Item Value Reference Range Interpretation Comments CO2 (test code = CO2) - [facility]ly [facility]2017-08-10 09:58:00 Test Item Value Reference Range Interpretation Comments Creatinine Lvl (test code = Creatinine 1.29 0.50-1.40 Lvl) Formerly [facility]2017-08-10 09:58:00 Test Item Value Reference Range Interpretation Comments eGFR (test code = eGFR) 63 [facility]2017-08-10 09:58:00 Test Item Value Reference Range Interpretation Comments AGAP (test code = AGAP) 14.9 10.0-20.0 [facility]2017-08-10 09:58:00 Test Item Value Reference Range Interpretation Comments Sodium Lvl (test code = Sodium Lvl) 138 135-145 [facility]2017-08-10 09:58:00 Test Item Value Reference Range Interpretation Comments Calcium Lvl (test code = Calcium Lvl) 8.4 8.5-10.5 [facility]2017-08-10 09:58:00 Test Item Value Reference Range Interpretation Comments BUN (test code = BUN) 15 7-22 [facility]2017-08-10 09:58:00 Test Item Value Reference Range Interpretation Comments Potassium Lvl (test code = Potassium 3.9 3.5-5.1 Lvl) [facility]2017-08-10 09:58:00 Test Item Value Reference Range Interpretation Comments Chloride Lvl (test code = Chloride Lvl) 105 95-109 [facility]2017-08-10 09:58:00 Test Item Value Reference Range Interpretation Comments CO2 (test code = CO2) [facility]2017-08-10 09:58:00 Test Item Value Reference Range Interpretation Comments Creatinine Lvl (test code = Creatinine 1.29 0.50-1.40 Lvl) [facility]2017-08-10 09:58:00 Test Item Value Reference Range Interpretation Comments eGFR (test code = eGFR) 63 [facility]2017-08-10 09:58:00 Test Item Value Reference Range Interpretation Comments AGAP (test code = AGAP) 14.9 10.0-20.0 [facility]2017-08-10 09:58:00 Test Item Value Reference Range Interpretation Comments Sodium Lvl (test code = Sodium Lvl) 138 135-145 [facility]2017-08-10 09:58:00 Test Item Value Reference Range Interpretation Comments Calcium Lvl (test code = Calcium Lvl) 8.4 8.5-10.5 [facility]2017-08-10 09:58:00 Test Item Value Reference Range Interpretation Comments Glucose Lvl (test code = Glucose Lvl) 101 70-99 [facility]2017-08-10 09:58:00 Test Item Value Reference Range Interpretation Comments BUN (test code = BUN) 15 7-22 [facility]2017-08-10 09:58:00 Test Item Value Reference Range Interpretation Comments Potassium Lvl (test code = Potassium 3.9 3.5-5.1 Lvl) [facility]2017-08-10 09:58:00 Test Item Value Reference Range Interpretation Comments Chloride Lvl (test code = Chloride Lvl) 105 95-109 [facility]2017-08-10 09:58:00 Test Item Value Reference Range Interpretation Comments CO2 (test code = CO2) 22 24-32 [facility]2017-08-10 09:58:00 Test Item Value Reference Range Interpretation Comments Creatinine Lvl (test code = Creatinine 1.29 0.50-1.40 Lvl) [facility]2017-08-10 09:58:00 Test Item Value Reference Range Interpretation Comments eGFR (test code = eGFR) 63 [facility]2017-08-10 09:58:00 Test Item Value Reference Range Interpretation Comments AGAP (test code = AGAP) 14.9 10.0-20.0 [facility]2017-08-10 09:58:00 Test Item Value Reference Range Interpretation Comments Sodium Lvl (test code = Sodium Lvl) 138 135-145 [facility]2017-08-10 09:58:00 Test Item Value Reference Range Interpretation Comments Calcium Lvl (test code = Calcium Lvl) 8.4 8.5-10.5 [facility]2017-08-10 09:58:00 Test Item Value Reference Range Interpretation Comments Glucose Lvl (test code = Glucose Lvl) 101 70-99 [facility]2017-08-10 09:58:00 Test Item Value Reference Range Interpretation Comments BUN (test code = BUN) 15 - [facility]2017-08-10 09:58:00 Test Item Value Reference Range Interpretation Comments Potassium Lvl (test code = Potassium 3.9 3.5-5.1 Lvl) [facility]2017-08-10 09:58:00 Test Item Value Reference Range Interpretation Comments Chloride Lvl (test code = Chloride Lvl) 105 95-109 [facility]2017-08-10 09:58:00 Test Item Value Reference Range Interpretation Comments CO2 (test code = CO2) 22 24-32 [facility]2017-08-10 09:58:00 Test Item Value Reference Range Interpretation Comments Creatinine Lvl (test code = Creatinine 1.29 0.50-1.40 Lvl) [facility]2017-08-10 09:58:00 Test Item Value Reference Range Interpretation Comments eGFR (test code = eGFR) 63 [facility]2017-08-10 09:58:00 Test Item Value Reference Range Interpretation Comments AGAP (test code = AGAP) 14.9 10.0-20.0 [facility]2017-08-10 09:58:00 Test Item Value Reference Range Interpretation Comments Sodium Lvl (test code = Sodium Lvl) 138 135-145 [facility]2017-08-10 09:58:00 Test Item Value Reference Range Interpretation Comments Calcium Lvl (test code = Calcium Lvl) 8.4 8.5-10.5 [facility]2017-08-10 09:58:00 Test Item Value Reference Range Interpretation Comments Glucose Lvl (test code = Glucose Lvl) 101 70-99 [facility]2017-08-10 09:58:00 Test Item Value Reference Range Interpretation Comments BUN (test code = BUN) 15 - [facility]2017-08-10 09:58:00 Test Item Value Reference Range Interpretation Comments Potassium Lvl (test code = Potassium 3.9 3.5-5.1 Lvl) [facility]2017-08-10 09:58:00 Test Item Value Reference Range Interpretation Comments Chloride Lvl (test code = Chloride Lvl) 105 95-109 [facility]2017-08-10 09:58:00 Test Item Value Reference Range Interpretation Comments CO2 (test code = CO2) 22 24-32 [facility]2017-08-10 09:58:00 Test Item Value Reference Range Interpretation Comments Creatinine Lvl (test code = Creatinine 1.29 0.50-1.40 Lvl) [facility]2017-08-10 09:58:00 Test Item Value Reference Range Interpretation Comments eGFR (test code = eGFR) 63 [facility]2017-08-10 09:58:00 Test Item Value Reference Range Interpretation Comments AGAP (test code = AGAP) 14.9 10.0-20.0 [facility]2017-08-10 09:58:00 Test Item Value Reference Range Interpretation Comments Sodium Lvl (test code = Sodium Lvl) 138 135-145 [facility]2017-08-10 09:58:00 Test Item Value Reference Range Interpretation Comments Calcium Lvl (test code = Calcium Lvl) 8.4 8.5-10.5 [facility]2017-08-10 09:58:00 Test Item Value Reference Range Interpretation Comments Glucose Lvl (test code = Glucose Lvl) 101 70-99 [facility]2017-08-10 09:58:00 Test Item Value Reference Range Interpretation Comments BUN (test code = BUN) 15 7-22 [facility]2017-08-10 09:58:00 Test Item Value Reference Range Interpretation Comments Potassium Lvl (test code = Potassium 3.9 3.5-5.1 Lvl) [facility]2017-08-10 09:58:00 Test Item Value Reference Range Interpretation Comments Chloride Lvl (test code = Chloride Lvl) 105 95-109 [facility]2017-08-10 09:58:00 Test Item Value Reference Range Interpretation Comments CO2 (test code = CO2) 22 24-32 [facility]2017-08-10 09:58:00 Test Item Value Reference Range Interpretation Comments Creatinine Lvl (test code = Creatinine 1.29 0.50-1.40 Lvl) [facility]2017-08-10 09:58:00 Test Item Value Reference Range Interpretation Comments eGFR (test code = eGFR) 63 [facility]2017-08-10 09:58:00 Test Item Value Reference Range Interpretation Comments AGAP (test code = AGAP) 14.9 10.0-20.0 [facility]2017-08-10 09:58:00 Test Item Value Reference Range Interpretation Comments Sodium Lvl (test code = Sodium Lvl) 138 135-145 [facility]2017-08-10 09:58:00 Test Item Value Reference Range Interpretation Comments Calcium Lvl (test code = Calcium Lvl) 8.4 8.5-10.5 [facility]2017-08-10 09:58:00 Test Item Value Reference Range Interpretation Comments Glucose Lvl (test code = Glucose Lvl) 101 70-99 [facility]2017-08-10 09:58:00 Test Item Value Reference Range Interpretation Comments BUN (test code = BUN) 15 7-22 [facility]2017-08-10 09:58:00 Test Item Value Reference Range Interpretation Comments Potassium Lvl (test code = Potassium 3.9 3.5-5.1 Lvl) [facility]2017-08-10 09:58:00 Test Item Value Reference Range Interpretation Comments Chloride Lvl (test code = Chloride Lvl) 105 95-109 [facility]2017-08-10 09:58:00 Test Item Value Reference Range Interpretation Comments CO2 (test code = CO2) 22 24-32 [facility]2017-08-10 09:58:00 Test Item Value Reference Range Interpretation Comments Creatinine Lvl (test code = Creatinine 1.29 0.50-1.40 Lvl) [facility]2017-08-10 09:58:00 Test Item Value Reference Range Interpretation Comments eGFR (test code = eGFR) 63 [facility]2017-08-10 09:58:00 Test Item Value Reference Range Interpretation Comments AGAP (test code = AGAP) 14.9 10.0-20.0 [facility]2017-08-10 09:58:00 Test Item Value Reference Range Interpretation Comments Sodium Lvl (test code = Sodium Lvl) 138 135-145 [facility]2017-08-10 09:58:00 Test Item Value Reference Range Interpretation Comments Calcium Lvl (test code = Calcium Lvl) 8.4 8.5-10.5 [facility]2017-08-10 09:58:00 Test Item Value Reference Range Interpretation Comments Glucose Lvl (test code = Glucose Lvl) 101 70-99 [facility]2017-08-10 09:58:00 Test Item Value Reference Range Interpretation Comments BUN (test code = BUN) 15 7-22 [facility]2017-08-10 09:58:00 Test Item Value Reference Range Interpretation Comments Potassium Lvl (test code = Potassium 3.9 3.5-5.1 Lvl) [facility]2017-08-10 09:58:00 Test Item Value Reference Range Interpretation Comments Chloride Lvl (test code = Chloride Lvl) 105 95-109 [facility]2017-08-10 09:58:00 Test Item Value Reference Range Interpretation Comments CO2 (test code = CO2) 22 24-32 [facility]2017-08-10 09:58:00 Test Item Value Reference Range Interpretation Comments Creatinine Lvl (test code = Creatinine 1.29 0.50-1.40 Lvl) [facility]2017-08-10 09:58:00 Test Item Value Reference Range Interpretation Comments eGFR (test code = eGFR) 63 [facility]2017-08-10 09:58:00 Test Item Value Reference Range Interpretation Comments AGAP (test code = AGAP) 14.9 10.0-20.0 [facility]2017-08-10 09:58:00 Test Item Value Reference Range Interpretation Comments Sodium Lvl (test code = Sodium Lvl) 138 135-145 [facility]2017-08-10 09:58:00 Test Item Value Reference Range Interpretation Comments Calcium Lvl (test code = Calcium Lvl) 8.4 8.5-10.5 [facility]2017-08-10 09:58:00 Test Item Value Reference Range Interpretation Comments Glucose Lvl (test code = Glucose Lvl) 101 70-99 [facility]2017-08-10 09:58:00 Test Item Value Reference Range Interpretation Comments BUN (test code = BUN) 15 7-22 [facility]2017-08-10 09:58:00 Test Item Value Reference Range Interpretation Comments Potassium Lvl (test code = Potassium 3.9 3.5-5.1 Lvl) [facility]2017-08-10 09:58:00 Test Item Value Reference Range Interpretation Comments Chloride Lvl (test code = Chloride Lvl) 105 95-109 [facility]2017-08-10 09:58:00 Test Item Value Reference Range Interpretation Comments CO2 (test code = CO2) 22 24-32 [facility]2017-08-10 09:58:00 Test Item Value Reference Range Interpretation Comments Creatinine Lvl (test code = Creatinine 1.29 0.50-1.40 Lvl) [facility]2017-08-10 09:58:00 Test Item Value Reference Range Interpretation Comments eGFR (test code = eGFR) 63 [facility]2017-08-10 09:58:00 Test Item Value Reference Range Interpretation Comments AGAP (test code = AGAP) 14.9 10.0-20.0 [facility]2017-08-10 09:58:00 Test Item Value Reference Range Interpretation Comments Sodium Lvl (test code = Sodium Lvl) 138 135-145 [facility]2017-08-10 09:58:00 Test Item Value Reference Range Interpretation Comments Calcium Lvl (test code = Calcium Lvl) 8.4 8.5-10.5 [facility]2017-08-10 09:58:00 Test Item Value Reference Range Interpretation Comments Glucose Lvl (test code = Glucose Lvl) 101 70-99 [facility]2017-08-10 09:58:00 Test Item Value Reference Range Interpretation Comments BUN (test code = BUN) 15 7- [facility]2017-08-10 09:58:00 Test Item Value Reference Range Interpretation Comments Potassium Lvl (test code = Potassium 3.9 3.5-5.1 Lvl) [facility]2017-08-10 09:58:00 Test Item Value Reference Range Interpretation Comments Chloride Lvl (test code = Chloride Lvl) 105 95-109 [facility]2017-08-10 09:58:00 Test Item Value Reference Range Interpretation Comments CO2 (test code = CO2) 22 24-32 [facility]2017-08-10 09:58:00 Test Item Value Reference Range Interpretation Comments Creatinine Lvl (test code = Creatinine 1.29 0.50-1.40 Lvl) [facility]2017-08-10 09:58:00 Test Item Value Reference Range Interpretation Comments eGFR (test code = eGFR) 63 [facility]2017-08-10 09:58:00 Test Item Value Reference Range Interpretation Comments AGAP (test code = AGAP) 14.9 10.0-20.0 [facility]2017-08-10 09:58:00 Test Item Value Reference Range Interpretation Comments Sodium Lvl (test code = Sodium Lvl) 138 135-145 [facility]2017-08-10 09:58:00 Test Item Value Reference Range Interpretation Comments Calcium Lvl (test code = Calcium Lvl) 8.4 8.5-10.5 [facility]2017-08-10 09:58:00 Test Item Value Reference Range Interpretation Comments Glucose Lvl (test code = Glucose Lvl) 101 70-99 [facility]2017-08-10 09:58:00 Test Item Value Reference Range Interpretation Comments BUN (test code = BUN) 15 7-22 [facility]2017-08-10 09:58:00 Test Item Value Reference Range Interpretation Comments Potassium Lvl (test code = Potassium 3.9 3.5-5.1 Lvl) [facility]2017-08-10 09:58:00 Test Item Value Reference Range Interpretation Comments Chloride Lvl (test code = Chloride Lvl) 105 95-109 [facility]2017-08-10 09:58:00 Test Item Value Reference Range Interpretation Comments CO2 (test code = CO2) 22 24-32 [facility]2017-08-10 09:58:00 Test Item Value Reference Range Interpretation Comments Creatinine Lvl (test code = Creatinine 1.29 0.50-1.40 Lvl) [facility]2017-08-10 09:58:00 Test Item Value Reference Range Interpretation Comments eGFR (test code = eGFR) 63 [facility]2017-08-10 09:58:00 Test Item Value Reference Range Interpretation Comments AGAP (test code = AGAP) 14.9 10.0-20.0 [facility]2017-08-10 09:58:00 Test Item Value Reference Range Interpretation Comments Sodium Lvl (test code = Sodium Lvl) 138 135-145 [facility]2017-08-10 09:58:00 Test Item Value Reference Range Interpretation Comments Calcium Lvl (test code = Calcium Lvl) 8.4 8.5-10.5 [facility]2017-08-10 09:58:00 Test Item Value Reference Range Interpretation Comments Glucose Lvl (test code = Glucose Lvl) 101 70-99 [facility]2017-08-10 09:58:00 Test Item Value Reference Range Interpretation Comments BUN (test code = BUN) 15 7-22 [facility]2017-08-10 09:58:00 Test Item Value Reference Range Interpretation Comments Potassium Lvl (test code = Potassium 3.9 3.5-5.1 Lvl) [facility]2017-08-10 09:58:00 Test Item Value Reference Range Interpretation Comments Chloride Lvl (test code = Chloride Lvl) 105 95-109 [facility]2017-08-10 09:58:00 Test Item Value Reference Range Interpretation Comments CO2 (test code = CO2) 22 24-32 [facility]2017-08-10 09:58:00 Test Item Value Reference Range Interpretation Comments Creatinine Lvl (test code = Creatinine 1.29 0.50-1.40 Lvl) [facility]2017-08-10 09:58:00 Test Item Value Reference Range Interpretation Comments eGFR (test code = eGFR) 63 [facility]2017-08-10 09:58:00 Test Item Value Reference Range Interpretation Comments AGAP (test code = AGAP) 14.9 10.0-20.0 [facility]2017-08-10 09:58:00 Test Item Value Reference Range Interpretation Comments Sodium Lvl (test code = Sodium Lvl) 138 135-145 [facility]2017-08-10 09:58:00 Test Item Value Reference Range Interpretation Comments Calcium Lvl (test code = Calcium Lvl) 8.4 8.5-10.5 [facility]2017-08-10 09:58:00 Test Item Value Reference Range Interpretation Comments Glucose Lvl (test code = Glucose Lvl) 101 70-99 [facility]2017-08-10 09:58:00 Test Item Value Reference Range Interpretation Comments BUN (test code = BUN) 15 - [facility]2017-08-10 09:58:00 Test Item Value Reference Range Interpretation Comments Potassium Lvl (test code = Potassium 3.9 3.5-5.1 Lvl) [facility]2017-08-10 09:58:00 Test Item Value Reference Range Interpretation Comments Chloride Lvl (test code = Chloride Lvl) 105 95-109 [facility]2017-08-10 09:58:00 Test Item Value Reference Range Interpretation Comments CO2 (test code = CO2) -32 [facility]2017-08-10 09:58:00 Test Item Value Reference Range Interpretation Comments Creatinine Lvl (test code = Creatinine 1.29 0.50-1.40 Lvl) [facility]2017-08-10 09:58:00 Test Item Value Reference Range Interpretation Comments eGFR (test code = eGFR) 63 [facility]2017-08-10 09:58:00 Test Item Value Reference Range Interpretation Comments AGAP (test code = AGAP) 14.9 10.0-20.0 [facility]2017-08-10 09:58:00 Test Item Value Reference Range Interpretation Comments Sodium Lvl (test code = Sodium Lvl) 138 135-145 Formerly [facility]2017-08-10 09:58:00 Test Item Value Reference Range Interpretation Comments Calcium Lvl (test code = Calcium Lvl) 8.4 8.5-10.5 Formerly [facility]2017-08-10 09:58:00 Test Item Value Reference Range Interpretation Comments Glucose Lvl (test code = Glucose Lvl) 101 70-99 Formerly [facility]2017-08-10 09:58:00 Test Item Value Reference Range Interpretation Comments BUN (test code = BUN) 15 - Formerly [facility]2017-08-10 09:58:00 Test Item Value Reference Range Interpretation Comments Potassium Lvl (test code = Potassium 3.9 3.5-5.1 Lvl) Formerly [facility]2017-08-10 09:58:00 Test Item Value Reference Range Interpretation Comments Chloride Lvl (test code = Chloride Lvl) 105 95-109 Formerly [facility]2017-08-10 09:58:00 Test Item Value Reference Range Interpretation Comments CO2 (test code = CO2) 22 24-32 Formerly [facility]2017-08-10 09:58:00 Test Item Value Reference Range Interpretation Comments Creatinine Lvl (test code = Creatinine 1.29 0.50-1.40 Lvl) Formerly [facility]2017-08-10 09:58:00 Test Item Value Reference Range Interpretation Comments eGFR (test code = eGFR) 63 [facility]2017-08-10 09:58:00 Test Item Value Reference Range Interpretation Comments AGAP (test code = AGAP) 14.9 10.0-20.0 Formerly [facility]2017-08-10 09:58:00 Test Item Value Reference Range Interpretation Comments Sodium Lvl (test code = Sodium Lvl) 138 135-145 Formerly [facility]2017-08-10 09:58:00 Test Item Value Reference Range Interpretation Comments Calcium Lvl (test code = Calcium Lvl) 8.4 8.5-10.5 Formerly [facility]2017-08-10 09:58:00 Test Item Value Reference Range Interpretation Comments Glucose Lvl (test code = Glucose Lvl) 101 70-99 [facility]2017-08-10 09:58:00 Test Item Value Reference Range Interpretation Comments BUN (test code = BUN) 15 7-22 [facility]2017-08-10 09:58:00 Test Item Value Reference Range Interpretation Comments Potassium Lvl (test code = Potassium 3.9 3.5-5.1 Lvl) Formerly [facility]2017-08-10 09:58:00 Test Item Value Reference Range Interpretation Comments Chloride Lvl (test code = Chloride Lvl) 105 95-109 Former[facility]2017-08-10 09:58:00 Test Item Value Reference Range Interpretation Comments CO2 (test code = CO2) 22 24-32 [facility]2017-08-10 09:58:00 Test Item Value Reference Range Interpretation Comments Creatinine Lvl (test code = Creatinine 1.29 0.50-1.40 Lvl) Formerly [facility]2017-08-10 09:58:00 Test Item Value Reference Range Interpretation Comments eGFR (test code = eGFR) 63 [facility]2017-08-10 09:58:00 Test Item Value Reference Range Interpretation Comments AGAP (test code = AGAP) 14.9 10.0-20.0 Formerly [facility]2017-08-10 09:58:00 Test Item Value Reference Range Interpretation Comments Sodium Lvl (test code = Sodium Lvl) 138 135-145 Former[facility]2017-08-10 09:58:00 Test Item Value Reference Range Interpretation Comments Calcium Lvl (test code = Calcium Lvl) 8.4 8.5-10.5 Former[facility]2017-08-10 09:58:00 Test Item Value Reference Range Interpretation Comments Glucose Lvl (test code = Glucose Lvl) 101 70-99 [facility]2017-08-10 09:58:00 Test Item Value Reference Range Interpretation Comments BUN (test code = BUN) 15 7-22 [facility]2017-08-10 09:58:00 Test Item Value Reference Range Interpretation Comments Potassium Lvl (test code = Potassium 3.9 3.5-5.1 Lvl) Formerly [facility]2017-08-10 09:58:00 Test Item Value Reference Range Interpretation Comments Chloride Lvl (test code = Chloride Lvl) 105 95-109 [facility]2017-08-10 09:58:00 Test Item Value Reference Range Interpretation Comments CO2 (test code = CO2) 22 24-32 [facility]2017-08-10 09:58:00 Test Item Value Reference Range Interpretation Comments Creatinine Lvl (test code = Creatinine 1.29 0.50-1.40 Lvl) Formerly [facility]2017-08-10 09:58:00 Test Item Value Reference Range Interpretation Comments eGFR (test code = eGFR) 63 [facility]2017-08-10 09:58:00 Test Item Value Reference Range Interpretation Comments AGAP (test code = AGAP) 14.9 10.0-20.0 [facility]2017-08-10 09:58:00 Test Item Value Reference Range Interpretation Comments Sodium Lvl (test code = Sodium Lvl) 138 135-145 Former[facility]2017-08-10 09:58:00 Test Item Value Reference Range Interpretation Comments Calcium Lvl (test code = Calcium Lvl) 8.4 8.5-10.5 [facility]2017-08-10 09:58:00 Test Item Value Reference Range Interpretation Comments Glucose Lvl (test code = Glucose Lvl) 101 70-99 [facility]2017-08-10 09:58:00 Test Item Value Reference Range Interpretation Comments BUN (test code = BUN) 15 7-22 [facility]2017-08-10 09:58:00 Test Item Value Reference Range Interpretation Comments Potassium Lvl (test code = Potassium 3.9 3.5-5.1 Lvl) Former[facility]2017-08-10 09:58:00 Test Item Value Reference Range Interpretation Comments Chloride Lvl (test code = Chloride Lvl) 105 95-109 [facility]2017-08-10 09:58:00 Test Item Value Reference Range Interpretation Comments CO2 (test code = CO2) 22 24-32 [facility]2017-08-10 09:58:00 Test Item Value Reference Range Interpretation Comments Creatinine Lvl (test code = Creatinine 1.29 0.50-1.40 Lvl) [facility]2017-08-10 09:58:00 Test Item Value Reference Range Interpretation Comments eGFR (test code = eGFR) 63 [facility]2017-08-10 09:58:00 Test Item Value Reference Range Interpretation Comments AGAP (test code = AGAP) 14.9 10.0-20.0 [facility]2017-08-10 09:58:00 Test Item Value Reference Range Interpretation Comments Sodium Lvl (test code = Sodium Lvl) 138 135-145 [facility]2017-08-10 09:58:00 Test Item Value Reference Range Interpretation Comments Calcium Lvl (test code = Calcium Lvl) 8.4 8.5-10.5 Former[facility]2017-08-10 09:58:00 Test Item Value Reference Range Interpretation Comments Glucose Lvl (test code = Glucose Lvl) 101 70-99 [facility]2017-08-10 09:58:00 Test Item Value Reference Range Interpretation Comments BUN (test code = BUN) 15 7-22 [facility]2017-08-10 09:58:00 Test Item Value Reference Range Interpretation Comments Potassium Lvl (test code = Potassium 3.9 3.5-5.1 Lvl) Former[facility]2017-08-10 09:58:00 Test Item Value Reference Range Interpretation Comments Chloride Lvl (test code = Chloride Lvl) 105 95-109 [facility]2017-08-10 09:58:00 Test Item Value Reference Range Interpretation Comments CO2 (test code = CO2) 22 24-32 [facility]2017-08-10 09:58:00 Test Item Value Reference Range Interpretation Comments Creatinine Lvl (test code = Creatinine 1.29 0.50-1.40 Lvl) [facility]2017-08-10 09:58:00 Test Item Value Reference Range Interpretation Comments eGFR (test code = eGFR) 63 [facility]2017-08-10 09:58:00 Test Item Value Reference Range Interpretation Comments AGAP (test code = AGAP) 14.9 10.0-20.0 [facility]2017-08-10 09:58:00 Test Item Value Reference Range Interpretation Comments Sodium Lvl (test code = Sodium Lvl) 138 135-145 [facility]2017-08-10 09:58:00 Test Item Value Reference Range Interpretation Comments Calcium Lvl (test code = Calcium Lvl) 8.4 8.5-10.5 [facility]2017-08-10 09:58:00 Test Item Value Reference Range Interpretation Comments Glucose Lvl (test code = Glucose Lvl) 101 70-99 [facility]2017-08-10 09:58:00 Test Item Value Reference Range Interpretation Comments BUN (test code = BUN) 15 7-22 [facility]2017-08-10 09:58:00 Test Item Value Reference Range Interpretation Comments Potassium Lvl (test code = Potassium 3.9 3.5-5.1 Lvl) [facility]2017-08-10 09:58:00 Test Item Value Reference Range Interpretation Comments Chloride Lvl (test code = Chloride Lvl) 105 95-109 [facility]2017-08-10 09:58:00 Test Item Value Reference Range Interpretation Comments CO2 (test code = CO2) 22 24-32 [facility]2017-08-10 09:58:00 Test Item Value Reference Range Interpretation Comments Creatinine Lvl (test code = Creatinine 1.29 0.50-1.40 Lvl) [facility]2017-08-10 09:58:00 Test Item Value Reference Range Interpretation Comments eGFR (test code = eGFR) 63 [facility]2017-08-10 09:58:00 Test Item Value Reference Range Interpretation Comments AGAP (test code = AGAP) 14.9 10.0-20.0 [facility]2017-08-10 09:58:00 Test Item Value Reference Range Interpretation Comments Sodium Lvl (test code = Sodium Lvl) 138 135-145 [facility]2017-08-10 09:58:00 Test Item Value Reference Range Interpretation Comments Calcium Lvl (test code = Calcium Lvl) 8.4 8.5-10.5 [facility]2017-08-09 19:57:00 Test Item Value Reference Range Interpretation Comments eGFR (test code = eGFR) 54 [facility]2017-08-09 19:57:00 Test Item Value Reference Range Interpretation Comments Sodium Lvl (test code = Sodium Lvl) 138 135-145 [facility]2017-08-09 19:57:00 Test Item Value Reference Range Interpretation Comments Creatinine Lvl (test code = Creatinine 1.48 0.50-1.40 Lvl) Former[facility]2017-08-09 19:57:00 Test Item Value Reference Range Interpretation Comments eGFR (test code = eGFR) 54 [facility]2017-08-09 19:57:00 Test Item Value Reference Range Interpretation Comments Sodium Lvl (test code = Sodium Lvl) 138 135-145 [facility]2017-08-09 19:57:00 Test Item Value Reference Range Interpretation Comments Creatinine Lvl (test code = Creatinine 1.48 0.50-1.40 Lvl) Former[facility]2017-08-09 19:57:00 Test Item Value Reference Range Interpretation Comments Glucose Lvl (test code = Glucose Lvl) 91 70-99 [facility]2017-08-09 19:57:00 Test Item Value Reference Range Interpretation Comments Glucose Lvl (test code = Glucose Lvl) 91 70-99 [facility]2017-08-09 19:57:00 Test Item Value Reference Range Interpretation Comments BUN (test code = BUN) 12-25 [facility]2017-08-09 19:57:00 Test Item Value Reference Range Interpretation Comments Potassium Lvl (test code = Potassium 4.1 3.5-5.1 Lvl) Former[facility]2017-08-09 19:57:00 Test Item Value Reference Range Interpretation Comments CO2 (test code = CO2) [facility]2017-08-09 19:57:00 Test Item Value Reference Range Interpretation Comments Chloride Lvl (test code = Chloride Lvl) 102 95-109 [facility]2017-08-09 19:57:00 Test Item Value Reference Range Interpretation Comments Calcium Lvl (test code = Calcium Lvl) 8.5 8.5-10.5 [facility]2017-08-09 19:57:00 Test Item Value Reference Range Interpretation Comments AGAP (test code = AGAP) 13.1 10.0-20.0 [facility]2017-08-09 19:57:00 Test Item Value Reference Range Interpretation Comments BUN (test code = BUN) 12-25 [facility]2017-08-09 19:57:00 Test Item Value Reference Range Interpretation Comments Potassium Lvl (test code = Potassium 4.1 3.5-5.1 Lvl) [facility]2017-08-09 19:57:00 Test Item Value Reference Range Interpretation Comments CO2 (test code = CO2) [facility]2017-08-09 19:57:00 Test Item Value Reference Range Interpretation Comments Chloride Lvl (test code = Chloride Lvl) 102 95-109 [facility]2017-08-09 19:57:00 Test Item Value Reference Range Interpretation Comments Calcium Lvl (test code = Calcium Lvl) 8.5 8.5-10.5 [facility]2017-08-09 19:57:00 Test Item Value Reference Range Interpretation Comments AGAP (test code = AGAP) 13.1 10.0-20.0 [facility]2017-08-09 19:57:00 Test Item Value Reference Range Interpretation Comments eGFR (test code = eGFR) 54 [facility]2017-08-09 19:57:00 Test Item Value Reference Range Interpretation Comments Sodium Lvl (test code = Sodium Lvl) 138 135-145 [facility]2017-08-09 19:57:00 Test Item Value Reference Range Interpretation Comments Creatinine Lvl (test code = Creatinine 1.48 0.50-1.40 Lvl) [facility]2017-08-09 19:57:00 Test Item Value Reference Range Interpretation Comments Glucose Lvl (test code = Glucose Lvl) 91 70-99 [facility]2017-08-09 19:57:00 Test Item Value Reference Range Interpretation Comments BUN (test code = BUN) 17 7-22 [facility]2017-08-09 19:57:00 Test Item Value Reference Range Interpretation Comments Potassium Lvl (test code = Potassium 4.1 3.5-5.1 Lvl) Former[facility]2017-08-09 19:57:00 Test Item Value Reference Range Interpretation Comments CO2 (test code = CO2) 27 24-32 [facility]2017-08-09 19:57:00 Test Item Value Reference Range Interpretation Comments Chloride Lvl (test code = Chloride Lvl) 102 95-109 [facility]2017-08-09 19:57:00 Test Item Value Reference Range Interpretation Comments Calcium Lvl (test code = Calcium Lvl) 8.5 8.5-10.5 [facility]2017-08-09 19:57:00 Test Item Value Reference Range Interpretation Comments AGAP (test code = AGAP) 13.1 10.0-20.0 [facility]2017-08-09 19:57:00 Test Item Value Reference Range Interpretation Comments eGFR (test code = eGFR) 54 [facility]2017-08-09 19:57:00 Test Item Value Reference Range Interpretation Comments Sodium Lvl (test code = Sodium Lvl) 138 135-145 [facility]2017-08-09 19:57:00 Test Item Value Reference Range Interpretation Comments Creatinine Lvl (test code = Creatinine 1.48 0.50-1.40 Lvl) [facility]2017-08-09 19:57:00 Test Item Value Reference Range Interpretation Comments Glucose Lvl (test code = Glucose Lvl) 91 70-99 [facility]2017-08-09 19:57:00 Test Item Value Reference Range Interpretation Comments BUN (test code = BUN) 12-25 [facility]2017-08-09 19:57:00 Test Item Value Reference Range Interpretation Comments Potassium Lvl (test code = Potassium 4.1 3.5-5.1 Lvl) [facility]2017-08-09 19:57:00 Test Item Value Reference Range Interpretation Comments CO2 (test code = CO2) 27 24-32 [facility]2017-08-09 19:57:00 Test Item Value Reference Range Interpretation Comments Chloride Lvl (test code = Chloride Lvl) 102 95-109 [facility]2017-08-09 19:57:00 Test Item Value Reference Range Interpretation Comments Calcium Lvl (test code = Calcium Lvl) 8.5 8.5-10.5 [facility]2017-08-09 19:57:00 Test Item Value Reference Range Interpretation Comments AGAP (test code = AGAP) 13.1 10.0-20.0 [facility]2017-08-09 19:57:00 Test Item Value Reference Range Interpretation Comments eGFR (test code = eGFR) 54 [facility]2017-08-09 19:57:00 Test Item Value Reference Range Interpretation Comments Sodium Lvl (test code = Sodium Lvl) 138 135-145 [facility]2017-08-09 19:57:00 Test Item Value Reference Range Interpretation Comments Creatinine Lvl (test code = Creatinine 1.48 0.50-1.40 Lvl) [facility]2017-08-09 19:57:00 Test Item Value Reference Range Interpretation Comments Glucose Lvl (test code = Glucose Lvl) 91 70-99 [facility]2017-08-09 19:57:00 Test Item Value Reference Range Interpretation Comments BUN (test code = BUN) 17 12-25 [facility]2017-08-09 19:57:00 Test Item Value Reference Range Interpretation Comments Potassium Lvl (test code = Potassium 4.1 3.5-5.1 Lvl) [facility]2017-08-09 19:57:00 Test Item Value Reference Range Interpretation Comments CO2 (test code = CO2) 27 24-32 [facility]2017-08-09 19:57:00 Test Item Value Reference Range Interpretation Comments Chloride Lvl (test code = Chloride Lvl) 102 95-109 [facility]2017-08-09 19:57:00 Test Item Value Reference Range Interpretation Comments Calcium Lvl (test code = Calcium Lvl) 8.5 8.5-10.5 [facility]2017-08-09 19:57:00 Test Item Value Reference Range Interpretation Comments AGAP (test code = AGAP) 13.1 10.0-20.0 [facility]2017-08-09 19:57:00 Test Item Value Reference Range Interpretation Comments eGFR (test code = eGFR) 54 [facility]2017-08-09 19:57:00 Test Item Value Reference Range Interpretation Comments Sodium Lvl (test code = Sodium Lvl) 138 135-145 [facility]2017-08-09 19:57:00 Test Item Value Reference Range Interpretation Comments Creatinine Lvl (test code = Creatinine 1.48 0.50-1.40 Lvl) [facility]2017-08-09 19:57:00 Test Item Value Reference Range Interpretation Comments Glucose Lvl (test code = Glucose Lvl) 91 70-99 [facility]2017-08-09 19:57:00 Test Item Value Reference Range Interpretation Comments BUN (test code = BUN) 17 7-22 [facility]2017-08-09 19:57:00 Test Item Value Reference Range Interpretation Comments Potassium Lvl (test code = Potassium 4.1 3.5-5.1 Lvl) [facility]2017-08-09 19:57:00 Test Item Value Reference Range Interpretation Comments CO2 (test code = CO2) 24-32 [facility]2017-08-09 19:57:00 Test Item Value Reference Range Interpretation Comments Chloride Lvl (test code = Chloride Lvl) 102 95-109 [facility]2017-08-09 19:57:00 Test Item Value Reference Range Interpretation Comments Calcium Lvl (test code = Calcium Lvl) 8.5 8.5-10.5 [facility]2017-08-09 19:57:00 Test Item Value Reference Range Interpretation Comments AGAP (test code = AGAP) 13.1 10.0-20.0 [facility]2017-08-09 19:57:00 Test Item Value Reference Range Interpretation Comments eGFR (test code = eGFR) 54 [facility]2017-08-09 19:57:00 Test Item Value Reference Range Interpretation Comments Sodium Lvl (test code = Sodium Lvl) 138 135-145 [facility]2017-08-09 19:57:00 Test Item Value Reference Range Interpretation Comments Creatinine Lvl (test code = Creatinine 1.48 0.50-1.40 Lvl) [facility]2017-08-09 19:57:00 Test Item Value Reference Range Interpretation Comments Glucose Lvl (test code = Glucose Lvl) 91 70-99 [facility]2017-08-09 19:57:00 Test Item Value Reference Range Interpretation Comments BUN (test code = BUN) 17 7-22 [facility]2017-08-09 19:57:00 Test Item Value Reference Range Interpretation Comments Potassium Lvl (test code = Potassium 4.1 3.5-5.1 Lvl) [facility]2017-08-09 19:57:00 Test Item Value Reference Range Interpretation Comments CO2 (test code = CO2) 27 24-32 [facility]2017-08-09 19:57:00 Test Item Value Reference Range Interpretation Comments Chloride Lvl (test code = Chloride Lvl) 102 95-109 [facility]2017-08-09 19:57:00 Test Item Value Reference Range Interpretation Comments Calcium Lvl (test code = Calcium Lvl) 8.5 8.5-10.5 [facility]2017-08-09 19:57:00 Test Item Value Reference Range Interpretation Comments AGAP (test code = AGAP) 13.1 10.0-20.0 [facility]2017-08-09 19:57:00 Test Item Value Reference Range Interpretation Comments eGFR (test code = eGFR) 54 [facility]2017-08-09 19:57:00 Test Item Value Reference Range Interpretation Comments Sodium Lvl (test code = Sodium Lvl) 138 135-145 [facility]2017-08-09 19:57:00 Test Item Value Reference Range Interpretation Comments Creatinine Lvl (test code = Creatinine 1.48 0.50-1.40 Lvl) [facility]2017-08-09 19:57:00 Test Item Value Reference Range Interpretation Comments Glucose Lvl (test code = Glucose Lvl) 91 70-99 [facility]2017-08-09 19:57:00 Test Item Value Reference Range Interpretation Comments BUN (test code = BUN) 12-25 [facility]2017-08-09 19:57:00 Test Item Value Reference Range Interpretation Comments Potassium Lvl (test code = Potassium 4.1 3.5-5.1 Lvl) [facility]2017-08-09 19:57:00 Test Item Value Reference Range Interpretation Comments CO2 (test code = CO2) - [facility]2017-08-09 19:57:00 Test Item Value Reference Range Interpretation Comments Chloride Lvl (test code = Chloride Lvl) 102 95-109 [facility]2017-08-09 19:57:00 Test Item Value Reference Range Interpretation Comments Calcium Lvl (test code = Calcium Lvl) 8.5 8.5-10.5 [facility]2017-08-09 19:57:00 Test Item Value Reference Range Interpretation Comments AGAP (test code = AGAP) 13.1 10.0-20.0 [facility]2017-08-09 19:57:00 Test Item Value Reference Range Interpretation Comments eGFR (test code = eGFR) 54 [facility]2017-08-09 19:57:00 Test Item Value Reference Range Interpretation Comments Sodium Lvl (test code = Sodium Lvl) 138 135-145 [facility]2017-08-09 19:57:00 Test Item Value Reference Range Interpretation Comments Creatinine Lvl (test code = Creatinine 1.48 0.50-1.40 Lvl) [facility]2017-08-09 19:57:00 Test Item Value Reference Range Interpretation Comments Glucose Lvl (test code = Glucose Lvl) 91 70-99 [facility]2017-08-09 19:57:00 Test Item Value Reference Range Interpretation Comments BUN (test code = BUN) 12-25 [facility]2017-08-09 19:57:00 Test Item Value Reference Range Interpretation Comments Potassium Lvl (test code = Potassium 4.1 3.5-5.1 Lvl) [facility]2017-08-09 19:57:00 Test Item Value Reference Range Interpretation Comments CO2 (test code = CO2) - Formerly [facility]2017-08-09 19:57:00 Test Item Value Reference Range Interpretation Comments Chloride Lvl (test code = Chloride Lvl) 102 95-109 Formerly [facility]2017-08-09 19:57:00 Test Item Value Reference Range Interpretation Comments Calcium Lvl (test code = Calcium Lvl) 8.5 8.5-10.5 Formerly [facility]2017-08-09 19:57:00 Test Item Value Reference Range Interpretation Comments AGAP (test code = AGAP) 13.1 10.0-20.0 Formerly [facility]2017-08-09 19:57:00 Test Item Value Reference Range Interpretation Comments eGFR (test code = eGFR) 54 [facility]ly [facility]2017-08-09 19:57:00 Test Item Value Reference Range Interpretation Comments Sodium Lvl (test code = Sodium Lvl) 138 135-145 Formerly [facility]2017-08-09 19:57:00 Test Item Value Reference Range Interpretation Comments Creatinine Lvl (test code = Creatinine 1.48 0.50-1.40 Lvl) Formerly [facility]2017-08-09 19:57:00 Test Item Value Reference Range Interpretation Comments Glucose Lvl (test code = Glucose Lvl) 91 70-99 Formerly [facility]2017-08-09 19:57:00 Test Item Value Reference Range Interpretation Comments BUN (test code = BUN) 17 7-22 Formerly [facility]2017-08-09 19:57:00 Test Item Value Reference Range Interpretation Comments Potassium Lvl (test code = Potassium 4.1 3.5-5.1 Lvl) Formerly [facility]2017-08-09 19:57:00 Test Item Value Reference Range Interpretation Comments CO2 (test code = CO2) - Formerly [facility]2017-08-09 19:57:00 Test Item Value Reference Range Interpretation Comments Chloride Lvl (test code = Chloride Lvl) 102 95-109 Formerly [facility]2017-08-09 19:57:00 Test Item Value Reference Range Interpretation Comments Calcium Lvl (test code = Calcium Lvl) 8.5 8.5-10.5 Formerly [facility]2017-08-09 19:57:00 Test Item Value Reference Range Interpretation Comments AGAP (test code = AGAP) 13.1 10.0-20.0 Formerly [facility]2017-08-09 19:57:00 Test Item Value Reference Range Interpretation Comments eGFR (test code = eGFR) 54 [facility]ly [facility]2017-08-09 19:57:00 Test Item Value Reference Range Interpretation Comments Sodium Lvl (test code = Sodium Lvl) 138 135-145 Formerly [facility]2017-08-09 19:57:00 Test Item Value Reference Range Interpretation Comments Creatinine Lvl (test code = Creatinine 1.48 0.50-1.40 Lvl) Formerly [facility]2017-08-09 19:57:00 Test Item Value Reference Range Interpretation Comments Glucose Lvl (test code = Glucose Lvl) 91 70-99 Formerly [facility]2017-08-09 19:57:00 Test Item Value Reference Range Interpretation Comments BUN (test code = BUN) 17 7-22 Formerly [facility]2017-08-09 19:57:00 Test Item Value Reference Range Interpretation Comments Potassium Lvl (test code = Potassium 4.1 3.5-5.1 Lvl) Formerly [facility]2017-08-09 19:57:00 Test Item Value Reference Range Interpretation Comments CO2 (test code = CO2) 27 24-32 Former[facility]2017-08-09 19:57:00 Test Item Value Reference Range Interpretation Comments Chloride Lvl (test code = Chloride Lvl) 102 95-109 Formerly [facility]2017-08-09 19:57:00 Test Item Value Reference Range Interpretation Comments Calcium Lvl (test code = Calcium Lvl) 8.5 8.5-10.5 Formerly [facility]2017-08-09 19:57:00 Test Item Value Reference Range Interpretation Comments AGAP (test code = AGAP) 13.1 10.0-20.0 Formerly [facility]2017-08-09 19:57:00 Test Item Value Reference Range Interpretation Comments eGFR (test code = eGFR) 54 [facility]2017-08-09 19:57:00 Test Item Value Reference Range Interpretation Comments Sodium Lvl (test code = Sodium Lvl) 138 135-145 Formerly [facility]2017-08-09 19:57:00 Test Item Value Reference Range Interpretation Comments Creatinine Lvl (test code = Creatinine 1.48 0.50-1.40 Lvl) Formerly [facility]2017-08-09 19:57:00 Test Item Value Reference Range Interpretation Comments Glucose Lvl (test code = Glucose Lvl) 91 70-99 [facility]2017-08-09 19:57:00 Test Item Value Reference Range Interpretation Comments BUN (test code = BUN) 17 7-22 Former[facility]2017-08-09 19:57:00 Test Item Value Reference Range Interpretation Comments Potassium Lvl (test code = Potassium 4.1 3.5-5.1 Lvl) Formerly [facility]2017-08-09 19:57:00 Test Item Value Reference Range Interpretation Comments CO2 (test code = CO2) 27 24-32 Former[facility]2017-08-09 19:57:00 Test Item Value Reference Range Interpretation Comments Chloride Lvl (test code = Chloride Lvl) 102 95-109 Formerly [facility]2017-08-09 19:57:00 Test Item Value Reference Range Interpretation Comments Calcium Lvl (test code = Calcium Lvl) 8.5 8.5-10.5 Former[facility]2017-08-09 19:57:00 Test Item Value Reference Range Interpretation Comments AGAP (test code = AGAP) 13.1 10.0-20.0 Formerly [facility]2017-08-09 19:57:00 Test Item Value Reference Range Interpretation Comments eGFR (test code = eGFR) 54 [facility]2017-08-09 19:57:00 Test Item Value Reference Range Interpretation Comments Sodium Lvl (test code = Sodium Lvl) 138 135-145 Former[facility]2017-08-09 19:57:00 Test Item Value Reference Range Interpretation Comments Creatinine Lvl (test code = Creatinine 1.48 0.50-1.40 Lvl) Formerly [facility]2017-08-09 19:57:00 Test Item Value Reference Range Interpretation Comments Glucose Lvl (test code = Glucose Lvl) 91 70-99 [facility]2017-08-09 19:57:00 Test Item Value Reference Range Interpretation Comments BUN (test code = BUN) 17 7-22 [facility]2017-08-09 19:57:00 Test Item Value Reference Range Interpretation Comments Potassium Lvl (test code = Potassium 4.1 3.5-5.1 Lvl) Formerly [facility]2017-08-09 19:57:00 Test Item Value Reference Range Interpretation Comments CO2 (test code = CO2) 27 24-32 Former[facility]2017-08-09 19:57:00 Test Item Value Reference Range Interpretation Comments Chloride Lvl (test code = Chloride Lvl) 102 95-109 Former[facility]2017-08-09 19:57:00 Test Item Value Reference Range Interpretation Comments Calcium Lvl (test code = Calcium Lvl) 8.5 8.5-10.5 Former[facility]2017-08-09 19:57:00 Test Item Value Reference Range Interpretation Comments AGAP (test code = AGAP) 13.1 10.0-20.0 Formerly [facility]2017-08-09 19:57:00 Test Item Value Reference Range Interpretation Comments eGFR (test code = eGFR) 54 [facility]2017-08-09 19:57:00 Test Item Value Reference Range Interpretation Comments Sodium Lvl (test code = Sodium Lvl) 138 135-145 Former[facility]2017-08-09 19:57:00 Test Item Value Reference Range Interpretation Comments Creatinine Lvl (test code = Creatinine 1.48 0.50-1.40 Lvl) Formerly [facility]2017-08-09 19:57:00 Test Item Value Reference Range Interpretation Comments Glucose Lvl (test code = Glucose Lvl) 91 70-99 [facility]2017-08-09 19:57:00 Test Item Value Reference Range Interpretation Comments eGFR (test code = eGFR) 54 [facility]2017-08-09 19:57:00 Test Item Value Reference Range Interpretation Comments Sodium Lvl (test code = Sodium Lvl) 138 135-145 Former[facility]2017-08-09 19:57:00 Test Item Value Reference Range Interpretation Comments Creatinine Lvl (test code = Creatinine 1.48 0.50-1.40 Lvl) Formerly [facility]2017-08-09 19:57:00 Test Item Value Reference Range Interpretation Comments Glucose Lvl (test code = Glucose Lvl) 91 70-99 [facility]2017-08-09 19:57:00 Test Item Value Reference Range Interpretation Comments BUN (test code = BUN) 12-25 [facility]2017-08-09 19:57:00 Test Item Value Reference Range Interpretation Comments BUN (test code = BUN) 12-25 [facility]2017-08-09 19:57:00 Test Item Value Reference Range Interpretation Comments Potassium Lvl (test code = Potassium 4.1 3.5-5.1 Lvl) Former[facility]2017-08-09 19:57:00 Test Item Value Reference Range Interpretation Comments CO2 (test code = CO2) [facility]2017-08-09 19:57:00 Test Item Value Reference Range Interpretation Comments Chloride Lvl (test code = Chloride Lvl) 102 95-109 Former[facility]2017-08-09 19:57:00 Test Item Value Reference Range Interpretation Comments Calcium Lvl (test code = Calcium Lvl) 8.5 8.5-10.5 Former[facility]2017-08-09 19:57:00 Test Item Value Reference Range Interpretation Comments AGAP (test code = AGAP) 13.1 10.0-20.0 Former[facility]2017-08-09 19:57:00 Test Item Value Reference Range Interpretation Comments Potassium Lvl (test code = Potassium 4.1 3.5-5.1 Lvl) Formerly [facility]2017-08-09 19:57:00 Test Item Value Reference Range Interpretation Comments CO2 (test code = CO2) [facility]ly [facility]2017-08-09 19:57:00 Test Item Value Reference Range Interpretation Comments Chloride Lvl (test code = Chloride Lvl) 102 95-109 Former[facility]2017-08-09 19:57:00 Test Item Value Reference Range Interpretation Comments Calcium Lvl (test code = Calcium Lvl) 8.5 8.5-10.5 [facility]2017-08-09 19:57:00 Test Item Value Reference Range Interpretation Comments AGAP (test code = AGAP) 13.1 10.0-20.0 [facility]2017-08-09 19:57:00 Test Item Value Reference Range Interpretation Comments eGFR (test code = eGFR) 54 [facility]2017-08-09 19:57:00 Test Item Value Reference Range Interpretation Comments Sodium Lvl (test code = Sodium Lvl) 138 135-145 Former[facility]2017-08-09 19:57:00 Test Item Value Reference Range Interpretation Comments Creatinine Lvl (test code = Creatinine 1.48 0.50-1.40 Lvl) Former[facility]2017-08-09 19:57:00 Test Item Value Reference Range Interpretation Comments Glucose Lvl (test code = Glucose Lvl) 91 70-99 [facility]2017-08-09 19:57:00 Test Item Value Reference Range Interpretation Comments BUN (test code = BUN) 17 7-22 [facility]2017-08-09 19:57:00 Test Item Value Reference Range Interpretation Comments Potassium Lvl (test code = Potassium 4.1 3.5-5.1 Lvl) Formerly [facility]2017-08-09 19:57:00 Test Item Value Reference Range Interpretation Comments CO2 (test code = CO2) 27 24-32 Former[facility]2017-08-09 19:57:00 Test Item Value Reference Range Interpretation Comments Chloride Lvl (test code = Chloride Lvl) 102 95-109 [facility]2017-08-09 19:57:00 Test Item Value Reference Range Interpretation Comments Calcium Lvl (test code = Calcium Lvl) 8.5 8.5-10.5 [facility]2017-08-09 19:57:00 Test Item Value Reference Range Interpretation Comments AGAP (test code = AGAP) 13.1 10.0-20.0 [facility]2017-08-09 19:57:00 Test Item Value Reference Range Interpretation Comments eGFR (test code = eGFR) 54 [facility]2017-08-09 19:57:00 Test Item Value Reference Range Interpretation Comments Sodium Lvl (test code = Sodium Lvl) 138 135-145 [facility]2017-08-09 19:57:00 Test Item Value Reference Range Interpretation Comments Creatinine Lvl (test code = Creatinine 1.48 0.50-1.40 Lvl) [facility]2017-08-09 19:57:00 Test Item Value Reference Range Interpretation Comments Glucose Lvl (test code = Glucose Lvl) 91 70-99 [facility]2017-08-09 19:57:00 Test Item Value Reference Range Interpretation Comments BUN (test code = BUN) 12-25 [facility]2017-08-09 19:57:00 Test Item Value Reference Range Interpretation Comments Potassium Lvl (test code = Potassium 4.1 3.5-5.1 Lvl) Formerly [facility]2017-08-09 19:57:00 Test Item Value Reference Range Interpretation Comments CO2 (test code = CO2) 27 24-32 [facility]2017-08-09 19:57:00 Test Item Value Reference Range Interpretation Comments Chloride Lvl (test code = Chloride Lvl) 102 95-109 Former[facility]2017-08-09 19:57:00 Test Item Value Reference Range Interpretation Comments Calcium Lvl (test code = Calcium Lvl) 8.5 8.5-10.5 Former[facility]2017-08-09 19:57:00 Test Item Value Reference Range Interpretation Comments AGAP (test code = AGAP) 13.1 10.0-20.0 [facility]2017-08-09 19:57:00 Test Item Value Reference Range Interpretation Comments eGFR (test code = eGFR) 54 [facility]2017-08-09 19:57:00 Test Item Value Reference Range Interpretation Comments Sodium Lvl (test code = Sodium Lvl) 138 135-145 [facility]2017-08-09 19:57:00 Test Item Value Reference Range Interpretation Comments Creatinine Lvl (test code = Creatinine 1.48 0.50-1.40 Lvl) Former[facility]2017-08-09 19:57:00 Test Item Value Reference Range Interpretation Comments Glucose Lvl (test code = Glucose Lvl) 91 70-99 [facility]2017-08-09 19:57:00 Test Item Value Reference Range Interpretation Comments BUN (test code = BUN) 17 - [facility]2017-08-09 19:57:00 Test Item Value Reference Range Interpretation Comments Potassium Lvl (test code = Potassium 4.1 3.5-5.1 Lvl) [facility]2017-08-09 19:57:00 Test Item Value Reference Range Interpretation Comments CO2 (test code = CO2) - [facility]2017-08-09 19:57:00 Test Item Value Reference Range Interpretation Comments Chloride Lvl (test code = Chloride Lvl) 102 95-109 [facility]2017-08-09 19:57:00 Test Item Value Reference Range Interpretation Comments Calcium Lvl (test code = Calcium Lvl) 8.5 8.5-10.5 [facility]2017-08-09 19:57:00 Test Item Value Reference Range Interpretation Comments AGAP (test code = AGAP) 13.1 10.0-20.0 [facility]2017-08-09 19:57:00 Test Item Value Reference Range Interpretation Comments eGFR (test code = eGFR) 54 [facility]2017-08-09 19:57:00 Test Item Value Reference Range Interpretation Comments Sodium Lvl (test code = Sodium Lvl) 138 135-145 [facility]2017-08-09 19:57:00 Test Item Value Reference Range Interpretation Comments Creatinine Lvl (test code = Creatinine 1.48 0.50-1.40 Lvl) [facility]2017-08-09 19:57:00 Test Item Value Reference Range Interpretation Comments Glucose Lvl (test code = Glucose Lvl) 91 70-99 [facility]2017-08-09 19:57:00 Test Item Value Reference Range Interpretation Comments BUN (test code = BUN) 17 7-22 [facility]2017-08-09 19:57:00 Test Item Value Reference Range Interpretation Comments Potassium Lvl (test code = Potassium 4.1 3.5-5.1 Lvl) [facility]2017-08-09 19:57:00 Test Item Value Reference Range Interpretation Comments CO2 (test code = CO2) [facility]2017-08-09 19:57:00 Test Item Value Reference Range Interpretation Comments Chloride Lvl (test code = Chloride Lvl) 102 95-109 [facility]2017-08-09 19:57:00 Test Item Value Reference Range Interpretation Comments Calcium Lvl (test code = Calcium Lvl) 8.5 8.5-10.5 [facility]2017-08-09 19:57:00 Test Item Value Reference Range Interpretation Comments AGAP (test code = AGAP) 13.1 10.0-20.0 [facility]2017-08-09 19:57:00 Test Item Value Reference Range Interpretation Comments eGFR (test code = eGFR) 54 [facility]2017-08-09 19:57:00 Test Item Value Reference Range Interpretation Comments Sodium Lvl (test code = Sodium Lvl) 138 135-145 [facility]2017-08-09 19:57:00 Test Item Value Reference Range Interpretation Comments Creatinine Lvl (test code = Creatinine 1.48 0.50-1.40 Lvl) [facility]2017-08-09 19:57:00 Test Item Value Reference Range Interpretation Comments Glucose Lvl (test code = Glucose Lvl) 91 70-99 [facility]2017-08-09 19:57:00 Test Item Value Reference Range Interpretation Comments BUN (test code = BUN) 17 7-22 [facility]2017-08-09 19:57:00 Test Item Value Reference Range Interpretation Comments Potassium Lvl (test code = Potassium 4.1 3.5-5.1 Lvl) [facility]2017-08-09 19:57:00 Test Item Value Reference Range Interpretation Comments CO2 (test code = CO2) 27 24-32 [facility]2017-08-09 19:57:00 Test Item Value Reference Range Interpretation Comments Chloride Lvl (test code = Chloride Lvl) 102 95-109 [facility]2017-08-09 19:57:00 Test Item Value Reference Range Interpretation Comments Calcium Lvl (test code = Calcium Lvl) 8.5 8.5-10.5 [facility]2017-08-09 19:57:00 Test Item Value Reference Range Interpretation Comments AGAP (test code = AGAP) 13.1 10.0-20.0 [facility]2017-08-09 19:57:00 Test Item Value Reference Range Interpretation Comments eGFR (test code = eGFR) 54 [facility]2017-08-09 19:57:00 Test Item Value Reference Range Interpretation Comments Sodium Lvl (test code = Sodium Lvl) 138 135-145 [facility]2017-08-09 19:57:00 Test Item Value Reference Range Interpretation Comments Creatinine Lvl (test code = Creatinine 1.48 0.50-1.40 Lvl) [facility]2017-08-09 19:57:00 Test Item Value Reference Range Interpretation Comments Glucose Lvl (test code = Glucose Lvl) 91 70-99 [facility]2017-08-09 19:57:00 Test Item Value Reference Range Interpretation Comments BUN (test code = BUN) 17 7-22 [facility]2017-08-09 19:57:00 Test Item Value Reference Range Interpretation Comments Potassium Lvl (test code = Potassium 4.1 3.5-5.1 Lvl) [facility]2017-08-09 19:57:00 Test Item Value Reference Range Interpretation Comments CO2 (test code = CO2) 27 24-32 [facility]2017-08-09 19:57:00 Test Item Value Reference Range Interpretation Comments Chloride Lvl (test code = Chloride Lvl) 102 95-109 [facility]2017-08-09 19:57:00 Test Item Value Reference Range Interpretation Comments Calcium Lvl (test code = Calcium Lvl) 8.5 8.5-10.5 [facility]2017-08-09 19:57:00 Test Item Value Reference Range Interpretation Comments AGAP (test code = AGAP) 13.1 10.0-20.0 [facility]2017-08-09 19:57:00 Test Item Value Reference Range Interpretation Comments eGFR (test code = eGFR) 54 [facility]2017-08-09 19:57:00 Test Item Value Reference Range Interpretation Comments Sodium Lvl (test code = Sodium Lvl) 138 135-145 [facility]2017-08-09 19:57:00 Test Item Value Reference Range Interpretation Comments Creatinine Lvl (test code = Creatinine 1.48 0.50-1.40 Lvl) [facility]2017-08-09 19:57:00 Test Item Value Reference Range Interpretation Comments Glucose Lvl (test code = Glucose Lvl) 91 70-99 [facility]2017-08-09 19:57:00 Test Item Value Reference Range Interpretation Comments BUN (test code = BUN) 17 - [facility]2017-08-09 19:57:00 Test Item Value Reference Range Interpretation Comments Potassium Lvl (test code = Potassium 4.1 3.5-5.1 Lvl) [facility]2017-08-09 19:57:00 Test Item Value Reference Range Interpretation Comments CO2 (test code = CO2) - [facility]2017-08-09 19:57:00 Test Item Value Reference Range Interpretation Comments Chloride Lvl (test code = Chloride Lvl) 102 95-109 [facility]2017-08-09 19:57:00 Test Item Value Reference Range Interpretation Comments Calcium Lvl (test code = Calcium Lvl) 8.5 8.5-10.5 [facility]2017-08-09 19:57:00 Test Item Value Reference Range Interpretation Comments AGAP (test code = AGAP) 13.1 10.0-20.0 [facility]2017-08-09 19:57:00 Test Item Value Reference Range Interpretation Comments eGFR (test code = eGFR) 54 [facility]2017-08-09 19:57:00 Test Item Value Reference Range Interpretation Comments Sodium Lvl (test code = Sodium Lvl) 138 135-145 [facility]2017-08-09 19:57:00 Test Item Value Reference Range Interpretation Comments Creatinine Lvl (test code = Creatinine 1.48 0.50-1.40 Lvl) [facility]ly [facility]2017-08-09 19:57:00 Test Item Value Reference Range Interpretation Comments Glucose Lvl (test code = Glucose Lvl) 91 70-99 [facility]2017-08-09 19:57:00 Test Item Value Reference Range Interpretation Comments BUN (test code = BUN) 20 12- [facility]2017-08-09 19:57:00 Test Item Value Reference Range Interpretation Comments Potassium Lvl (test code = Potassium 4.1 3.5-5.1 Lvl) Formerly [facility]2017-08-09 19:57:00 Test Item Value Reference Range Interpretation Comments CO2 (test code = CO2) - [facility]2017-08-09 19:57:00 Test Item Value Reference Range Interpretation Comments Chloride Lvl (test code = Chloride Lvl) 102 95-109 [facility]2017-08-09 19:57:00 Test Item Value Reference Range Interpretation Comments Calcium Lvl (test code = Calcium Lvl) 8.5 8.5-10.5 [facility]2017-08-09 19:57:00 Test Item Value Reference Range Interpretation Comments AGAP (test code = AGAP) 13.1 10.0-20.0 [facility]2017-08-09 19:57:00 Test Item Value Reference Range Interpretation Comments eGFR (test code = eGFR) 54 [facility]2017-08-09 19:57:00 Test Item Value Reference Range Interpretation Comments Sodium Lvl (test code = Sodium Lvl) 138 135-145 [facility]2017-08-09 19:57:00 Test Item Value Reference Range Interpretation Comments Creatinine Lvl (test code = Creatinine 1.48 0.50-1.40 Lvl) [facility]2017-08-09 19:57:00 Test Item Value Reference Range Interpretation Comments Glucose Lvl (test code = Glucose Lvl) 91 70-99 [facility]2017-08-09 19:57:00 Test Item Value Reference Range Interpretation Comments BUN (test code = BUN) 17 7-22 [facility]2017-08-09 19:57:00 Test Item Value Reference Range Interpretation Comments Potassium Lvl (test code = Potassium 4.1 3.5-5.1 Lvl) Formerly [facility]2017-08-09 19:57:00 Test Item Value Reference Range Interpretation Comments CO2 (test code = CO2) 27 24-32 Formerly [facility]2017-08-09 19:57:00 Test Item Value Reference Range Interpretation Comments Chloride Lvl (test code = Chloride Lvl) 102 95-109 Formerly [facility]2017-08-09 19:57:00 Test Item Value Reference Range Interpretation Comments Calcium Lvl (test code = Calcium Lvl) 8.5 8.5-10.5 Formerly [facility]2017-08-09 19:57:00 Test Item Value Reference Range Interpretation Comments AGAP (test code = AGAP) 13.1 10.0-20.0 [place] [id number] 19:57:00 Test Item Value Reference Range Interpretation Comments eGFR (test code = eGFR) 54 [facility]2017-08-09 19:57:00 Test Item Value Reference Range Interpretation Comments Sodium Lvl (test code = Sodium Lvl) 138 135-145 Formerly [facility]2017-08-09 19:57:00 Test Item Value Reference Range Interpretation Comments Creatinine Lvl (test code = Creatinine 1.48 0.50-1.40 Lvl) Formerly [facility]2017-08-09 19:57:00 Test Item Value Reference Range Interpretation Comments Glucose Lvl (test code = Glucose Lvl) Formerly [facility]2017-08-09 19:57:00 Test Item Value Reference Range Interpretation Comments BUN (test code = BUN) 12-25 Formerly [facility]2017-08-09 19:57:00 Test Item Value Reference Range Interpretation Comments Potassium Lvl (test code = Potassium 4.1 3.5-5.1 Lvl) Formerly [facility]2017-08-09 19:57:00 Test Item Value Reference Range Interpretation Comments eGFR (test code = eGFR) 54 [facility]2017-08-09 19:57:00 Test Item Value Reference Range Interpretation Comments Sodium Lvl (test code = Sodium Lvl) 138 135-145 Former[facility]2017-08-09 19:57:00 Test Item Value Reference Range Interpretation Comments Creatinine Lvl (test code = Creatinine 1.48 0.50-1.40 Lvl) Formerly [facility]2017-08-09 19:57:00 Test Item Value Reference Range Interpretation Comments Glucose Lvl (test code = Glucose Lvl) 70 [facility]2017-08-09 19:57:00 Test Item Value Reference Range Interpretation Comments BUN (test code = BUN) 12-25 [facility]2017-08-09 19:57:00 Test Item Value Reference Range Interpretation Comments CO2 (test code = CO2) - Formerly [facility]2017-08-09 19:57:00 Test Item Value Reference Range Interpretation Comments Potassium Lvl (test code = Potassium 4.1 3.5-5.1 Lvl) Formerly [facility]2017-08-09 19:57:00 Test Item Value Reference Range Interpretation Comments CO2 (test code = CO2) 27 24-32 [facility]2017-08-09 19:57:00 Test Item Value Reference Range Interpretation Comments Chloride Lvl (test code = Chloride Lvl) 102 95-109 [facility]2017-08-09 19:57:00 Test Item Value Reference Range Interpretation Comments Calcium Lvl (test code = Calcium Lvl) 8.5 8.5-10.5 Former[facility]2017-08-09 19:57:00 Test Item Value Reference Range Interpretation Comments AGAP (test code = AGAP) 13.1 10.0-20.0 [facility]2017-08-09 19:57:00 Test Item Value Reference Range Interpretation Comments Chloride Lvl (test code = Chloride Lvl) 102 95-109 [facility]2017-08-09 19:57:00 Test Item Value Reference Range Interpretation Comments Calcium Lvl (test code = Calcium Lvl) 8.5 8.5-10.5 [facility]2017-08-09 19:57:00 Test Item Value Reference Range Interpretation Comments AGAP (test code = AGAP) 13.1 10.0-20.0 [facility]2017-08-09 19:57:00 Test Item Value Reference Range Interpretation Comments eGFR (test code = eGFR) 54 [facility]2017-08-09 19:57:00 Test Item Value Reference Range Interpretation Comments Sodium Lvl (test code = Sodium Lvl) 138 135-145 [facility]2017-08-09 19:57:00 Test Item Value Reference Range Interpretation Comments Creatinine Lvl (test code = Creatinine 1.48 0.50-1.40 Lvl) [facility]2017-08-09 19:57:00 Test Item Value Reference Range Interpretation Comments Glucose Lvl (test code = Glucose Lvl) 91 70-99 [facility]2017-08-09 19:57:00 Test Item Value Reference Range Interpretation Comments BUN (test code = BUN) 17 7-22 [facility]2017-08-09 19:57:00 Test Item Value Reference Range Interpretation Comments Potassium Lvl (test code = Potassium 4.1 3.5-5.1 Lvl) Formerly [facility]2017-08-09 19:57:00 Test Item Value Reference Range Interpretation Comments CO2 (test code = CO2) - Formerly [facility]2017-08-09 19:57:00 Test Item Value Reference Range Interpretation Comments Chloride Lvl (test code = Chloride Lvl) 102 95-109 [facility]2017-08-09 19:57:00 Test Item Value Reference Range Interpretation Comments Calcium Lvl (test code = Calcium Lvl) 8.5 8.5-10.5 [facility]2017-08-09 19:57:00 Test Item Value Reference Range Interpretation Comments AGAP (test code = AGAP) 13.1 10.0-20.0 [facility]2017-08-09 19:57:00 Test Item Value Reference Range Interpretation Comments eGFR (test code = eGFR) 54 [facility]2017-08-09 19:57:00 Test Item Value Reference Range Interpretation Comments Sodium Lvl (test code = Sodium Lvl) 138 135-145 [facility]2017-08-09 19:57:00 Test Item Value Reference Range Interpretation Comments Creatinine Lvl (test code = Creatinine 1.48 0.50-1.40 Lvl) [facility]2017-08-09 19:57:00 Test Item Value Reference Range Interpretation Comments Glucose Lvl (test code = Glucose Lvl) 91 70-99 [facility]2017-08-09 19:57:00 Test Item Value Reference Range Interpretation Comments BUN (test code = BUN) 17 7-22 [facility]2017-08-09 19:57:00 Test Item Value Reference Range Interpretation Comments Potassium Lvl (test code = Potassium 4.1 3.5-5.1 Lvl) Formerly [facility]2017-08-09 19:57:00 Test Item Value Reference Range Interpretation Comments CO2 (test code = CO2) -32 [facility]2017-08-09 19:57:00 Test Item Value Reference Range Interpretation Comments Chloride Lvl (test code = Chloride Lvl) 102 95-109 [facility]2017-08-09 19:57:00 Test Item Value Reference Range Interpretation Comments Calcium Lvl (test code = Calcium Lvl) 8.5 8.5-10.5 [facility]2017-08-09 19:57:00 Test Item Value Reference Range Interpretation Comments AGAP (test code = AGAP) 13.1 10.0-20.0 [facility]2017-08-09 19:57:00 Test Item Value Reference Range Interpretation Comments eGFR (test code = eGFR) 54 [facility]2017-08-09 19:57:00 Test Item Value Reference Range Interpretation Comments Sodium Lvl (test code = Sodium Lvl) 138 135-145 [facility]2017-08-09 19:57:00 Test Item Value Reference Range Interpretation Comments Creatinine Lvl (test code = Creatinine 1.48 0.50-1.40 Lvl) [facility]2017-08-09 19:57:00 Test Item Value Reference Range Interpretation Comments Glucose Lvl (test code = Glucose Lvl) 91 70-99 [facility]2017-08-09 19:57:00 Test Item Value Reference Range Interpretation Comments BUN (test code = BUN) 17 7-22 [facility]2017-08-09 19:57:00 Test Item Value Reference Range Interpretation Comments Potassium Lvl (test code = Potassium 4.1 3.5-5.1 Lvl) [facility]2017-08-09 19:57:00 Test Item Value Reference Range Interpretation Comments CO2 (test code = CO2) 27 24-32 [facility]2017-08-09 19:57:00 Test Item Value Reference Range Interpretation Comments Chloride Lvl (test code = Chloride Lvl) 102 95-109 [facility]2017-08-09 19:57:00 Test Item Value Reference Range Interpretation Comments Calcium Lvl (test code = Calcium Lvl) 8.5 8.5-10.5 [facility]2017-08-09 19:57:00 Test Item Value Reference Range Interpretation Comments AGAP (test code = AGAP) 13.1 10.0-20.0 [facility]2017-08-09 19:57:00 Test Item Value Reference Range Interpretation Comments eGFR (test code = eGFR) 54 [facility]2017-08-09 19:57:00 Test Item Value Reference Range Interpretation Comments Sodium Lvl (test code = Sodium Lvl) 138 135-145 [facility]2017-08-09 19:57:00 Test Item Value Reference Range Interpretation Comments Creatinine Lvl (test code = Creatinine 1.48 0.50-1.40 Lvl) [facility]2017-08-09 19:57:00 Test Item Value Reference Range Interpretation Comments Glucose Lvl (test code = Glucose Lvl) 91 70-99 [facility]2017-08-09 19:57:00 Test Item Value Reference Range Interpretation Comments BUN (test code = BUN) 12-25 [facility]2017-08-09 19:57:00 Test Item Value Reference Range Interpretation Comments Potassium Lvl (test code = Potassium 4.1 3.5-5.1 Lvl) [facility]2017-08-09 19:57:00 Test Item Value Reference Range Interpretation Comments CO2 (test code = CO2) 24-32 [facility]2017-08-09 19:57:00 Test Item Value Reference Range Interpretation Comments Chloride Lvl (test code = Chloride Lvl) 102 95-109 [facility]2017-08-09 19:57:00 Test Item Value Reference Range Interpretation Comments Calcium Lvl (test code = Calcium Lvl) 8.5 8.5-10.5 [facility]2017-08-09 19:57:00 Test Item Value Reference Range Interpretation Comments AGAP (test code = AGAP) 13.1 10.0-20.0 [facility]2017-08-09 19:57:00 Test Item Value Reference Range Interpretation Comments eGFR (test code = eGFR) 54 [facility]2017-08-09 19:57:00 Test Item Value Reference Range Interpretation Comments Sodium Lvl (test code = Sodium Lvl) 138 135-145 [facility]2017-08-09 19:57:00 Test Item Value Reference Range Interpretation Comments Creatinine Lvl (test code = Creatinine 1.48 0.50-1.40 Lvl) [facility]2017-08-09 19:57:00 Test Item Value Reference Range Interpretation Comments Glucose Lvl (test code = Glucose Lvl) 91 70-99 [facility]2017-08-09 19:57:00 Test Item Value Reference Range Interpretation Comments BUN (test code = BUN) 12-25 [facility]2017-08-09 19:57:00 Test Item Value Reference Range Interpretation Comments Potassium Lvl (test code = Potassium 4.1 3.5-5.1 Lvl) [facility]2017-08-09 19:57:00 Test Item Value Reference Range Interpretation Comments CO2 (test code = CO2) - [facility]ly [facility]2017-08-09 19:57:00 Test Item Value Reference Range Interpretation Comments Chloride Lvl (test code = Chloride Lvl) 102 95-109 [facility]2017-08-09 19:57:00 Test Item Value Reference Range Interpretation Comments Calcium Lvl (test code = Calcium Lvl) 8.5 8.5-10.5 [facility]2017-08-09 19:57:00 Test Item Value Reference Range Interpretation Comments AGAP (test code = AGAP) 13.1 10.0-20.0 [facility]2017-08-09 19:57:00 Test Item Value Reference Range Interpretation Comments eGFR (test code = eGFR) 54 [facility]2017-08-09 19:57:00 Test Item Value Reference Range Interpretation Comments Sodium Lvl (test code = Sodium Lvl) 138 135-145 [facility]2017-08-09 19:57:00 Test Item Value Reference Range Interpretation Comments Creatinine Lvl (test code = Creatinine 1.48 0.50-1.40 Lvl) [facility]2017-08-09 19:57:00 Test Item Value Reference Range Interpretation Comments Glucose Lvl (test code = Glucose Lvl) 91 70-99 [facility]2017-08-09 19:57:00 Test Item Value Reference Range Interpretation Comments BUN (test code = BUN) 12-25 [facility]2017-08-09 19:57:00 Test Item Value Reference Range Interpretation Comments Potassium Lvl (test code = Potassium 4.1 3.5-5.1 Lvl) [facility]2017-08-09 19:57:00 Test Item Value Reference Range Interpretation Comments CO2 (test code = CO2) -32 [facility]2017-08-09 19:57:00 Test Item Value Reference Range Interpretation Comments Chloride Lvl (test code = Chloride Lvl) 102 95-109 [facility]2017-08-09 19:57:00 Test Item Value Reference Range Interpretation Comments Calcium Lvl (test code = Calcium Lvl) 8.5 8.5-10.5 [facility]2017-08-09 19:57:00 Test Item Value Reference Range Interpretation Comments AGAP (test code = AGAP) 13.1 10.0-20.0 [facility]2017-08-09 19:57:00 Test Item Value Reference Range Interpretation Comments eGFR (test code = eGFR) 54 [facility]2017-08-09 19:57:00 Test Item Value Reference Range Interpretation Comments Sodium Lvl (test code = Sodium Lvl) 138 135-145 [facility]2017-08-09 19:57:00 Test Item Value Reference Range Interpretation Comments Creatinine Lvl (test code = Creatinine 1.48 0.50-1.40 Lvl) [facility]2017-08-09 19:57:00 Test Item Value Reference Range Interpretation Comments Glucose Lvl (test code = Glucose Lvl) 91 70-99 [facility]2017-08-09 19:57:00 Test Item Value Reference Range Interpretation Comments BUN (test code = BUN) 17 7-22 [facility]2017-08-09 19:57:00 Test Item Value Reference Range Interpretation Comments Potassium Lvl (test code = Potassium 4.1 3.5-5.1 Lvl) [facility]2017-08-09 19:57:00 Test Item Value Reference Range Interpretation Comments CO2 (test code = CO2) 27 24-32 [facility]2017-08-09 19:57:00 Test Item Value Reference Range Interpretation Comments Chloride Lvl (test code = Chloride Lvl) 102 95-109 [facility]2017-08-09 19:57:00 Test Item Value Reference Range Interpretation Comments Calcium Lvl (test code = Calcium Lvl) 8.5 8.5-10.5 [facility]2017-08-09 19:57:00 Test Item Value Reference Range Interpretation Comments AGAP (test code = AGAP) 13.1 10.0-20.0 [facility]2017-08-09 19:57:00 Test Item Value Reference Range Interpretation Comments eGFR (test code = eGFR) 54 [facility]2017-08-09 19:57:00 Test Item Value Reference Range Interpretation Comments Sodium Lvl (test code = Sodium Lvl) 138 135-145 [facility]2017-08-09 19:57:00 Test Item Value Reference Range Interpretation Comments Creatinine Lvl (test code = Creatinine 1.48 0.50-1.40 Lvl) [facility]2017-08-09 19:57:00 Test Item Value Reference Range Interpretation Comments Glucose Lvl (test code = Glucose Lvl) 91 70-99 [facility]2017-08-09 19:57:00 Test Item Value Reference Range Interpretation Comments BUN (test code = BUN) 17 7-22 [facility]2017-08-09 19:57:00 Test Item Value Reference Range Interpretation Comments Potassium Lvl (test code = Potassium 4.1 3.5-5.1 Lvl) [facility]2017-08-09 19:57:00 Test Item Value Reference Range Interpretation Comments CO2 (test code = CO2) 27 24-32 [facility]2017-08-09 19:57:00 Test Item Value Reference Range Interpretation Comments Chloride Lvl (test code = Chloride Lvl) 102 95-109 [facility]2017-08-09 19:57:00 Test Item Value Reference Range Interpretation Comments Calcium Lvl (test code = Calcium Lvl) 8.5 8.5-10.5 [facility]2017-08-09 19:57:00 Test Item Value Reference Range Interpretation Comments AGAP (test code = AGAP) 13.1 10.0-20.0 [facility]2017-08-09 19:57:00 Test Item Value Reference Range Interpretation Comments eGFR (test code = eGFR) 54 [facility]2017-08-09 19:57:00 Test Item Value Reference Range Interpretation Comments Sodium Lvl (test code = Sodium Lvl) 138 135-145 [facility]2017-08-09 19:57:00 Test Item Value Reference Range Interpretation Comments Creatinine Lvl (test code = Creatinine 1.48 0.50-1.40 Lvl) [facility]2017-08-09 19:57:00 Test Item Value Reference Range Interpretation Comments Glucose Lvl (test code = Glucose Lvl) 91 70-99 [facility]2017-08-09 19:57:00 Test Item Value Reference Range Interpretation Comments BUN (test code = BUN) 12-25 [facility]2017-08-09 19:57:00 Test Item Value Reference Range Interpretation Comments Potassium Lvl (test code = Potassium 4.1 3.5-5.1 Lvl) [facility]2017-08-09 19:57:00 Test Item Value Reference Range Interpretation Comments CO2 (test code = CO2) 27 24-32 [facility]2017-08-09 19:57:00 Test Item Value Reference Range Interpretation Comments Chloride Lvl (test code = Chloride Lvl) 102 95-109 [facility]2017-08-09 19:57:00 Test Item Value Reference Range Interpretation Comments Calcium Lvl (test code = Calcium Lvl) 8.5 8.5-10.5 [facility]2017-08-09 19:57:00 Test Item Value Reference Range Interpretation Comments AGAP (test code = AGAP) 13.1 10.0-20.0 [facility]2017-08-09 19:57:00 Test Item Value Reference Range Interpretation Comments eGFR (test code = eGFR) 54 [facility]2017-08-09 19:57:00 Test Item Value Reference Range Interpretation Comments Sodium Lvl (test code = Sodium Lvl) 138 135-145 [facility]2017-08-09 19:57:00 Test Item Value Reference Range Interpretation Comments Creatinine Lvl (test code = Creatinine 1.48 0.50-1.40 Lvl) [facility]2017-08-09 19:57:00 Test Item Value Reference Range Interpretation Comments Glucose Lvl (test code = Glucose Lvl) 91 70-99 [facility]2017-08-09 19:57:00 Test Item Value Reference Range Interpretation Comments BUN (test code = BUN) 17 12-25 [facility]2017-08-09 19:57:00 Test Item Value Reference Range Interpretation Comments Potassium Lvl (test code = Potassium 4.1 3.5-5.1 Lvl) [facility]2017-08-09 19:57:00 Test Item Value Reference Range Interpretation Comments CO2 (test code = CO2) 27 24-32 [facility]2017-08-09 19:57:00 Test Item Value Reference Range Interpretation Comments eGFR (test code = eGFR) 54 [facility]2017-08-09 19:57:00 Test Item Value Reference Range Interpretation Comments Chloride Lvl (test code = Chloride Lvl) 102 95-109 [facility]2017-08-09 19:57:00 Test Item Value Reference Range Interpretation Comments Sodium Lvl (test code = Sodium Lvl) 138 135-145 [facility]2017-08-09 19:57:00 Test Item Value Reference Range Interpretation Comments Creatinine Lvl (test code = Creatinine 1.48 0.50-1.40 Lvl) [facility]2017-08-09 19:57:00 Test Item Value Reference Range Interpretation Comments Glucose Lvl (test code = Glucose Lvl) 91 70-99 [facility]2017-08-09 19:57:00 Test Item Value Reference Range Interpretation Comments BUN (test code = BUN) 17 - [facility]2017-08-09 19:57:00 Test Item Value Reference Range Interpretation Comments Potassium Lvl (test code = Potassium 4.1 3.5-5.1 Lvl) [facility]2017-08-09 19:57:00 Test Item Value Reference Range Interpretation Comments CO2 (test code = CO2) 27 -32 [facility]2017-08-09 19:57:00 Test Item Value Reference Range Interpretation Comments Chloride Lvl (test code = Chloride Lvl) 102 95-109 [facility]2017-08-09 19:57:00 Test Item Value Reference Range Interpretation Comments Calcium Lvl (test code = Calcium Lvl) 8.5 8.5-10.5 [facility]2017-08-09 19:57:00 Test Item Value Reference Range Interpretation Comments AGAP (test code = AGAP) 13.1 10.0-20.0 [facility]2017-08-09 19:57:00 Test Item Value Reference Range Interpretation Comments Calcium Lvl (test code = Calcium Lvl) 8.5 8.5-10.5 [facility]2017-08-09 19:57:00 Test Item Value Reference Range Interpretation Comments AGAP (test code = AGAP) 13.1 10.0-20.0 [facility]2017-08-09 19:57:00 Test Item Value Reference Range Interpretation Comments eGFR (test code = eGFR) 54 [facility]2017-08-09 19:57:00 Test Item Value Reference Range Interpretation Comments Sodium Lvl (test code = Sodium Lvl) 138 135-145 [facility]2017-08-09 19:57:00 Test Item Value Reference Range Interpretation Comments Creatinine Lvl (test code = Creatinine 1.48 0.50-1.40 Lvl) [facility]2017-08-09 19:57:00 Test Item Value Reference Range Interpretation Comments Glucose Lvl (test code = Glucose Lvl) 91 70-99 [facility]2017-08-09 19:57:00 Test Item Value Reference Range Interpretation Comments BUN (test code = BUN) 17 7-22 [facility]2017-08-09 19:57:00 Test Item Value Reference Range Interpretation Comments Potassium Lvl (test code = Potassium 4.1 3.5-5.1 Lvl) [facility]2017-08-09 19:57:00 Test Item Value Reference Range Interpretation Comments CO2 (test code = CO2) 27 24-32 [facility]2017-08-09 19:57:00 Test Item Value Reference Range Interpretation Comments Chloride Lvl (test code = Chloride Lvl) 102 95-109 [facility]2017-08-09 19:57:00 Test Item Value Reference Range Interpretation Comments Calcium Lvl (test code = Calcium Lvl) 8.5 8.5-10.5 [facility]2017-08-09 19:57:00 Test Item Value Reference Range Interpretation Comments AGAP (test code = AGAP) 13.1 10.0-20.0 [facility]2017-08-09 19:57:00 Test Item Value Reference Range Interpretation Comments eGFR (test code = eGFR) 54 [facility]2017-08-09 19:57:00 Test Item Value Reference Range Interpretation Comments Sodium Lvl (test code = Sodium Lvl) 138 135-145 [facility]2017-08-09 19:57:00 Test Item Value Reference Range Interpretation Comments Creatinine Lvl (test code = Creatinine 1.48 0.50-1.40 Lvl) [facility]2017-08-09 19:57:00 Test Item Value Reference Range Interpretation Comments Glucose Lvl (test code = Glucose Lvl) 91 70-99 [facility]2017-08-09 19:57:00 Test Item Value Reference Range Interpretation Comments BUN (test code = BUN) 12-25 [facility]ly [facility]2017-08-09 19:57:00 Test Item Value Reference Range Interpretation Comments Potassium Lvl (test code = Potassium 4.1 3.5-5.1 Lvl) [facility]2017-08-09 19:57:00 Test Item Value Reference Range Interpretation Comments CO2 (test code = CO2) - [facility]2017-08-09 19:57:00 Test Item Value Reference Range Interpretation Comments Chloride Lvl (test code = Chloride Lvl) 102 95-109 [facility]2017-08-09 19:57:00 Test Item Value Reference Range Interpretation Comments Calcium Lvl (test code = Calcium Lvl) 8.5 8.5-10.5 [facility]2017-08-09 19:57:00 Test Item Value Reference Range Interpretation Comments AGAP (test code = AGAP) 13.1 10.0-20.0 [facility]2017-08-09 19:57:00 Test Item Value Reference Range Interpretation Comments eGFR (test code = eGFR) 54 [facility]2017-08-09 19:57:00 Test Item Value Reference Range Interpretation Comments Sodium Lvl (test code = Sodium Lvl) 138 135-145 [facility]2017-08-09 19:57:00 Test Item Value Reference Range Interpretation Comments Creatinine Lvl (test code = Creatinine 1.48 0.50-1.40 Lvl) [facility]2017-08-09 19:57:00 Test Item Value Reference Range Interpretation Comments Glucose Lvl (test code = Glucose Lvl) 91 70-99 [facility]2017-08-09 19:57:00 Test Item Value Reference Range Interpretation Comments BUN (test code = BUN) 12-25 [facility]2017-08-09 19:57:00 Test Item Value Reference Range Interpretation Comments Potassium Lvl (test code = Potassium 4.1 3.5-5.1 Lvl) [facility]2017-08-09 19:57:00 Test Item Value Reference Range Interpretation Comments CO2 (test code = CO2) -32 [facility]2017-08-09 19:57:00 Test Item Value Reference Range Interpretation Comments Chloride Lvl (test code = Chloride Lvl) 102 95-109 [facility]2017-08-09 19:57:00 Test Item Value Reference Range Interpretation Comments Calcium Lvl (test code = Calcium Lvl) 8.5 8.5-10.5 [facility]2017-08-09 19:57:00 Test Item Value Reference Range Interpretation Comments AGAP (test code = AGAP) 13.1 10.0-20.0 [facility]2017-08-09 19:57:00 Test Item Value Reference Range Interpretation Comments eGFR (test code = eGFR) 54 [facility]2017-08-09 19:57:00 Test Item Value Reference Range Interpretation Comments Sodium Lvl (test code = Sodium Lvl) 138 135-145 [facility]2017-08-09 19:57:00 Test Item Value Reference Range Interpretation Comments Creatinine Lvl (test code = Creatinine 1.48 0.50-1.40 Lvl) [facility]2017-08-09 19:57:00 Test Item Value Reference Range Interpretation Comments Glucose Lvl (test code = Glucose Lvl) 91 70-99 [facility]2017-08-09 19:57:00 Test Item Value Reference Range Interpretation Comments BUN (test code = BUN) 17 7-22 [facility]2017-08-09 19:57:00 Test Item Value Reference Range Interpretation Comments Potassium Lvl (test code = Potassium 4.1 3.5-5.1 Lvl) [facility]2017-08-09 19:57:00 Test Item Value Reference Range Interpretation Comments CO2 (test code = CO2) - [facility]2017-08-09 19:57:00 Test Item Value Reference Range Interpretation Comments Chloride Lvl (test code = Chloride Lvl) 102 95-109 [facility]2017-08-09 19:57:00 Test Item Value Reference Range Interpretation Comments Calcium Lvl (test code = Calcium Lvl) 8.5 8.5-10.5 [facility]2017-08-09 19:57:00 Test Item Value Reference Range Interpretation Comments AGAP (test code = AGAP) 13.1 10.0-20.0 [facility]2017-08-09 09:43:00 Test Item Value Reference Range Interpretation Comments eGFR (test code = eGFR) 53 [facility]2017-08-09 09:43:00 Test Item Value Reference Range Interpretation Comments Glucose Lvl (test code = Glucose Lvl) 116 70-99 [facility]2017-08-09 09:43:00 Test Item Value Reference Range Interpretation Comments BUN (test code = BUN) 18 7-22 [facility]2017-08-09 09:43:00 Test Item Value Reference Range Interpretation Comments Creatinine Lvl (test code = Creatinine 1.50 0.50-1.40 Lvl) [facility]2017-08-09 09:43:00 Test Item Value Reference Range Interpretation Comments Potassium Lvl (test code = Potassium 3.9 3.5-5.1 Lvl) [facility]2017-08-09 09:43:00 Test Item Value Reference Range Interpretation Comments Sodium Lvl (test code = Sodium Lvl) 137 135-145 [facility]2017-08-09 09:43:00 Test Item Value Reference Range Interpretation Comments Calcium Lvl (test code = Calcium Lvl) 7.9 8.5-10.5 [facility]2017-08-09 09:43:00 Test Item Value Reference Range Interpretation Comments CO2 (test code = CO2) 24 24-32 [facility]2017-08-09 09:43:00 Test Item Value Reference Range Interpretation Comments Chloride Lvl (test code = Chloride Lvl) 104 95-109 [facility]2017-08-09 09:43:00 Test Item Value Reference Range Interpretation Comments AGAP (test code = AGAP) 12.9 10.0-20.0 [facility]RNPXFNWMMI7441-89-[facility] 09:43:00 Test Item Value Reference Range Interpretation Comments Basophils # (test code 0.1 See_Comment [Aut omated message] The = Basophils #) system which generated this result tra nsmitted reference range : <=0.2. The reference r mary was not used to int erpret this result as normal/abnormal . [facility] AreaGvfjlmvNYOCISBWKW0119-04-87 09:43:00 Test Item Value Reference Range Interpretation Comments Monocytes # (test code 1.2 See_Comment [Aut omated message] The = Monocytes #) system which generated this result tra nsmitted reference range : <=0.8. The reference r mary was not used to int erpret this result as normal/abnormal . [facility] AreaNufxoquIBJGVIBXPS0559-22-35 09:43:00 Test Item Value Reference Range Interpretation Comments Eosinophils # (test code 0.2 See_Comment [A utomated message] The = Eosinophils #) system whic h generated this result tra nsmitted reference range : <=0.5. The reference r mary was not used to int erpret this result as normal/abnormal . [facility] AreaXelnivwDZVEVUBIPA0706-80-16 09:43:00 Test Item Value Reference Range Interpretation Comments Lymphocytes # (test code = Lymphocytes 2.5 1.0-5.5 #) [facility] AreaYtyhgwnDCAXBVGQBZ3769-41-86 09:43:00 Test Item Value Reference Range Interpretation Comments Monocytes (test code = Monocytes) 8.7 2.0-12.0 [facility] AreaAgmjwknHSUJYEIFJM0516-88-79 09:43:00 Test Item Value Reference Range Interpretation Comments Eosinophils (test code = 1.6 See_Comment [A utomated message] The Eosinophils) system which ge nerated this result tra nsmitted reference range : <=4.0. The reference r mary was not used to int erpret this result as normal/abnormal . [facility] AreaPwxwyimKTEGNWCGUV6281-62-07 09:43:00 Test Item Value Reference Range Interpretation Comments Basophils (test code = 0.4 See_Comment [Aut omated message] The Basophils) system which ge nerated this result tra nsmitted reference range : <=1.0. The reference r mary was not used to int erpret this result as normal/abnormal . [facility] AreaYwlcobaTDGUEPWDXO1055-23-14 09:43:00 Test Item Value Reference Range Interpretation Comments Segs-Bands # (test code = Segs-Bands #) 10.1 1.5-8.1 [facility] AreaTqobaxoFESIBTZSQT3855-43-17 09:43:00 Test Item Value Reference Range Interpretation Comments Lymphocytes (test code = Lymphocytes) 17.7 20.0-40.0 [facility] AreaTjfpslnWOWVJYKPIY6343-99-82 09:43:00 Test Item Value Reference Range Interpretation Comments Segs (test code = Segs) 71.6 45.0-75.0 [facility] AreaWodmhdsEQAVJGJCCB4469-36-90 09:43:00 Test Item Value Reference Range Interpretation Comments MPV (test code = MPV) 8.4 7.4-10.4 [facility] AreaOzptuxuORGCWMAZDE7948-88-60 09:43:00 Test Item Value Reference Range Interpretation Comments Platelet (test code = Platelet) 211 133-450 [facility] AreaJcttokbLPSFMDDZLY7046-57-91 09:43:00 Test Item Value Reference Range Interpretation Comments WBC (test code = WBC) 14.1 3.7-10.4 [facility] AreaXuytxvgGGYMDQNLCE9043-83-04 09:43:00 Test Item Value Reference Range Interpretation Comments RBC (test code = RBC) 4.43 4.70-6.10 [facility] AreaYsjqfghTMCQFVIMMR6003-15-11 09:43:00 Test Item Value Reference Range Interpretation Comments Hgb (test code = Hgb) 13.3 14.0-18.0 [facility] AreaZzmobmdZABUQFBXRB6007-01-27 09:43:00 Test Item Value Reference Range Interpretation Comments MCV (test code = MCV) 90.8 80.0-94.0 [facility] AreaXuujskeOKHWIWBZUQ5565-13-89 09:43:00 Test Item Value Reference Range Interpretation Comments MCHC (test code = MCHC) 33.1 32.0-36.0 [facility] AreaRqzgcwwGWFLESTVVW1911-12-66 09:43:00 Test Item Value Reference Range Interpretation Comments MCH (test code = MCH) 30.0 pg 27.0-31.0 [facility] AreaWfsnyjlQJAABYCAMG1535-25-44 09:43:00 Test Item Value Reference Range Interpretation Comments RDW (test code = RDW) 14.6 11.5-14.5 [facility] AreaUkqwljuBMHCSNWXXY7809-84-84 09:43:00 Test Item Value Reference Range Interpretation Comments Hct (test code = Hct) 40.2 42.0-54.0 [facility]2017-08-09 09:43:00 Test Item Value Reference Range Interpretation Comments eGFR (test code = eGFR) 53 [facility]2017-08-09 09:43:00 Test Item Value Reference Range Interpretation Comments Glucose Lvl (test code = Glucose Lvl) 116 70-99 [facility]2017-08-09 09:43:00 Test Item Value Reference Range Interpretation Comments BUN (test code = BUN) 18 12-25 [facility]2017-08-09 09:43:00 Test Item Value Reference Range Interpretation Comments Creatinine Lvl (test code = Creatinine 1.50 0.50-1.40 Lvl) [facility]2017-08-09 09:43:00 Test Item Value Reference Range Interpretation Comments Potassium Lvl (test code = Potassium 3.9 3.5-5.1 Lvl) [facility]2017-08-09 09:43:00 Test Item Value Reference Range Interpretation Comments Sodium Lvl (test code = Sodium Lvl) 137 135-145 [facility]2017-08-09 09:43:00 Test Item Value Reference Range Interpretation Comments Calcium Lvl (test code = Calcium Lvl) 7.9 8.5-10.5 [facility]2017-08-09 09:43:00 Test Item Value Reference Range Interpretation Comments CO2 (test code = CO2) 24 24-32 [facility]2017-08-09 09:43:00 Test Item Value Reference Range Interpretation Comments eGFR (test code = eGFR) 53 [facility]2017-08-09 09:43:00 Test Item Value Reference Range Interpretation Comments Glucose Lvl (test code = Glucose Lvl) 116 70-99 [facility]2017-08-09 09:43:00 Test Item Value Reference Range Interpretation Comments BUN (test code = BUN) 12-25 [facility]2017-08-09 09:43:00 Test Item Value Reference Range Interpretation Comments Creatinine Lvl (test code = Creatinine 1.50 0.50-1.40 Lvl) [facility]2017-08-09 09:43:00 Test Item Value Reference Range Interpretation Comments Potassium Lvl (test code = Potassium 3.9 3.5-5.1 Lvl) [facility]2017-08-09 09:43:00 Test Item Value Reference Range Interpretation Comments Sodium Lvl (test code = Sodium Lvl) 137 135-145 [facility]2017-08-09 09:43:00 Test Item Value Reference Range Interpretation Comments Calcium Lvl (test code = Calcium Lvl) 7.9 8.5-10.5 [facility]2017-08-09 09:43:00 Test Item Value Reference Range Interpretation Comments CO2 (test code = CO2) 24 24-32 [facility]2017-08-09 09:43:00 Test Item Value Reference Range Interpretation Comments Chloride Lvl (test code = Chloride Lvl) 104 95-109 [facility]2017-08-09 09:43:00 Test Item Value Reference Range Interpretation Comments Chloride Lvl (test code = Chloride Lvl) 104 95-109 [facility]2017-08-09 09:43:00 Test Item Value Reference Range Interpretation Comments AGAP (test code = AGAP) 12.9 10.0-20.0 [facility] AreaKvtzvmeXDRRKFYHQZ2856-51-52 09:43:00 Test Item Value Reference Range Interpretation Comments Basophils # (test code 0.1 See_Comment [Aut omated message] The = Basophils #) system which generated this result tra nsmitted reference range : <=0.2. The reference r mary was not used to int erpret this result as normal/abnormal . [facility] AreaKlkrjatMIDYFLXPYZ1632-77-77 09:43:00 Test Item Value Reference Range Interpretation Comments Monocytes # (test code 1.2 See_Comment [Aut omated message] The = Monocytes #) system which generated this result tra nsmitted reference range : <=0.8. The reference r mary was not used to int erpret this result as normal/abnormal . [facility] AreaKqsnuqyXCJONUDOCI5966-60-82 09:43:00 Test Item Value Reference Range Interpretation Comments Eosinophils # (test code 0.2 See_Comment [A utomated message] The = Eosinophils #) system whic h generated this result tra nsmitted reference range : <=0.5. The reference r mary was not used to int erpret this result as normal/abnormal . [facility] AreaCnqxjlsXZWBLRIXTL2861-06-97 09:43:00 Test Item Value Reference Range Interpretation Comments Lymphocytes # (test code = Lymphocytes 2.5 1.0-5.5 #) [facility] AreaJfqvzgvUCBEXDZDYA9912-14-49 09:43:00 Test Item Value Reference Range Interpretation Comments Monocytes (test code = Monocytes) 8.7 2.0-12.0 [facility] AreaSguvdtmEVTFEXKTSH0490-56-80 09:43:00 Test Item Value Reference Range Interpretation Comments Eosinophils (test code = 1.6 See_Comment [A utomated message] The Eosinophils) system which ge nerated this result tra nsmitted reference range : <=4.0. The reference r mary was not used to int erpret this result as normal/abnormal . [facility] AreaHhhjxdaEGDNXFERWM0795-16-93 09:43:00 Test Item Value Reference Range Interpretation Comments Basophils (test code = 0.4 See_Comment [Aut omated message] The Basophils) system which ge nerated this result tra nsmitted reference range : <=1.0. The reference r mary was not used to int erpret this result as normal/abnormal . [facility] AreaCfnwanhEINBMOUGLK4856-78-24 09:43:00 Test Item Value Reference Range Interpretation Comments Segs-Bands # (test code = Segs-Bands #) 10.1 1.5-8.1 [facility]2017-08-09 09:43:00 Test Item Value Reference Range Interpretation Comments AGAP (test code = AGAP) 12.9 10.0-20.0 [facility] AreaNxvwtlpMHZCMGMCER4300-99-74 09:43:00 Test Item Value Reference Range Interpretation Comments Lymphocytes (test code = Lymphocytes) 17.7 20.0-40.0 [facility] AreaKgwlnzqANWLZZPIUL6539-80-84 09:43:00 Test Item Value Reference Range Interpretation Comments Segs (test code = Segs) 71.6 45.0-75.0 [facility] AreaSpbasqdPFQCRGVXHE0976-22-26 09:43:00 Test Item Value Reference Range Interpretation Comments MPV (test code = MPV) 8.4 7.4-10.4 [facility] AreaKfxfgbfGKJEAIJVWM6100-25-48 09:43:00 Test Item Value Reference Range Interpretation Comments Platelet (test code = Platelet) 211 133-450 [facility] AreaInchdvaYREBIMNTIR1589-24-81 09:43:00 Test Item Value Reference Range Interpretation Comments WBC (test code = WBC) 14.1 3.7-10.4 [facility] AreaSzvvahwACUWIANNDX0713-46-95 09:43:00 Test Item Value Reference Range Interpretation Comments RBC (test code = RBC) 4.43 4.70-6.10 [facility] AreaBgoinqcZAVNMZOGUW9971-84-74 09:43:00 Test Item Value Reference Range Interpretation Comments Hgb (test code = Hgb) 13.3 14.0-18.0 [facility] AreaJnvgjelNBODOMLFEY2907-98-46 09:43:00 Test Item Value Reference Range Interpretation Comments MCV (test code = MCV) 90.8 80.0-94.0 [facility] AreaHddwrygLABJJKMFQM5748-27-99 09:43:00 Test Item Value Reference Range Interpretation Comments MCHC (test code = MCHC) 33.1 32.0-36.0 [facility] AreaZertwquVPIFETRBAG5953-60-53 09:43:00 Test Item Value Reference Range Interpretation Comments MCH (test code = MCH) 30.0 pg 27.0-31.0 [facility] AreaSnugwqvSPNWOYWUJC9293-99-07 09:43:00 Test Item Value Reference Range Interpretation Comments Basophils # (test code 0.1 See_Comment [Aut omated message] The = Basophils #) system which generated this result tra nsmitted reference range : <=0.2. The reference r mary was not used to int erpret this result as normal/abnormal . [facility] AreaPnpkyuzTPFQBEEPLN7057-89-70 09:43:00 Test Item Value Reference Range Interpretation Comments RDW (test code = RDW) 14.6 11.5-14.5 [facility] AreaXiguvgrINBXFGBUJW8696-64-38 09:43:00 Test Item Value Reference Range Interpretation Comments Hct (test code = Hct) 40.2 42.0-54.0 [facility] AreaOxzmirxWUTIHGMTUH9305-85-95 09:43:00 Test Item Value Reference Range Interpretation Comments Monocytes # (test code 1.2 See_Comment [Aut omated message] The = Monocytes #) system which generated this result tra nsmitted reference range : <=0.8. The reference r mary was not used to int erpret this result as normal/abnormal . [facility] AreaFpssjccOMBKEQFYFR7447-52-75 09:43:00 Test Item Value Reference Range Interpretation Comments Eosinophils # (test code 0.2 See_Comment [A utomated message] The = Eosinophils #) system whic h generated this result tra nsmitted reference range : <=0.5. The reference r mary was not used to int erpret this result as normal/abnormal . [facility] AreaQleoaztSPRBEYUZFI3268-40-89 09:43:00 Test Item Value Reference Range Interpretation Comments Lymphocytes # (test code = Lymphocytes 2.5 1.0-5.5 #) [facility] AreaZldbvadHCAEBKMWEQ5232-68-65 09:43:00 Test Item Value Reference Range Interpretation Comments Monocytes (test code = Monocytes) 8.7 2.0-12.0 [facility] AreaCuhbkymNYGVKUZHEO3104-31-37 09:43:00 Test Item Value Reference Range Interpretation Comments Eosinophils (test code = 1.6 See_Comment [A utomated message] The Eosinophils) system which ge nerated this result tra nsmitted reference range : <=4.0. The reference r mary was not used to int erpret this result as normal/abnormal . [facility] AreaPjiqotqUMLCZDKECY3200-31-90 09:43:00 Test Item Value Reference Range Interpretation Comments Basophils (test code = 0.4 See_Comment [Aut omated message] The Basophils) system which ge nerated this result tra nsmitted reference range : <=1.0. The reference r mary was not used to int erpret this result as normal/abnormal . [facility] AreaYafgxkrJARUSZMEDF6308-93-82 09:43:00 Test Item Value Reference Range Interpretation Comments Segs-Bands # (test code = Segs-Bands #) 10.1 1.5-8.1 [facility] AreaYrzmkeiVEEMGLLQXK2121-13-70 09:43:00 Test Item Value Reference Range Interpretation Comments Lymphocytes (test code = Lymphocytes) 17.7 20.0-40.0 [facility] AreaLnnlsuwAZVLQGRWWX4408-30-66 09:43:00 Test Item Value Reference Range Interpretation Comments Segs (test code = Segs) 71.6 45.0-75.0 [facility] AreaGxruinqLNKDZEZFBQ6571-99-61 09:43:00 Test Item Value Reference Range Interpretation Comments MPV (test code = MPV) 8.4 7.4-10.4 [facility]2017-08-09 09:43:00 Test Item Value Reference Range Interpretation Comments eGFR (test code = eGFR) 53 [facility]2017-08-09 09:43:00 Test Item Value Reference Range Interpretation Comments Glucose Lvl (test code = Glucose Lvl) 116 70-99 [facility]2017-08-09 09:43:00 Test Item Value Reference Range Interpretation Comments BUN (test code = BUN) 18 7-22 [facility] AreaByxsjncZEXHUXWYHQ4048-38-68 09:43:00 Test Item Value Reference Range Interpretation Comments Platelet (test code = Platelet) 211 133-450 [facility]2017-08-09 09:43:00 Test Item Value Reference Range Interpretation Comments Creatinine Lvl (test code = Creatinine 1.50 0.50-1.40 Lvl) [facility]2017-08-09 09:43:00 Test Item Value Reference Range Interpretation Comments Potassium Lvl (test code = Potassium 3.9 3.5-5.1 Lvl) [facility]2017-08-09 09:43:00 Test Item Value Reference Range Interpretation Comments Sodium Lvl (test code = Sodium Lvl) 137 135-145 [facility]2017-08-09 09:43:00 Test Item Value Reference Range Interpretation Comments Calcium Lvl (test code = Calcium Lvl) 7.9 8.5-10.5 [facility]2017-08-09 09:43:00 Test Item Value Reference Range Interpretation Comments CO2 (test code = CO2) 24 24-32 [facility]2017-08-09 09:43:00 Test Item Value Reference Range Interpretation Comments Chloride Lvl (test code = Chloride Lvl) 104 95-109 [facility]2017-08-09 09:43:00 Test Item Value Reference Range Interpretation Comments AGAP (test code = AGAP) 12.9 10.0-20.0 [facility] AreaTbqpohaYRHOFDZIFH0878-63-25 09:43:00 Test Item Value Reference Range Interpretation Comments Basophils # (test code 0.1 See_Comment [Aut omated message] The = Basophils #) system which generated this result tra nsmitted reference range : <=0.2. The reference r mary was not used to int erpret this result as normal/abnormal . [facility] AreaCkopfvdSLXEUPTPYC5493-07-17 09:43:00 Test Item Value Reference Range Interpretation Comments Monocytes # (test code 1.2 See_Comment [Aut omated message] The = Monocytes #) system which generated this result tra nsmitted reference range : <=0.8. The reference r mary was not used to int erpret this result as normal/abnormal . [facility] AreaYogwlopAPYODGICSH0004-86-18 09:43:00 Test Item Value Reference Range Interpretation Comments Eosinophils # (test code 0.2 See_Comment [A utomated message] The = Eosinophils #) system whic h generated this result tra nsmitted reference range : <=0.5. The reference r mary was not used to int erpret this result as normal/abnormal . [facility] AreaXunjpohFPIHUUDULF5772-70-60 09:43:00 Test Item Value Reference Range Interpretation Comments WBC (test code = WBC) 14.1 3.7-10.4 [facility] AreaKkwapjoLBHHRHTUJJ6713-47-55 09:43:00 Test Item Value Reference Range Interpretation Comments Lymphocytes # (test code = Lymphocytes 2.5 1.0-5.5 #) [facility] AreaAcurrqyUWZJZEMGSQ3004-70-19 09:43:00 Test Item Value Reference Range Interpretation Comments Monocytes (test code = Monocytes) 8.7 2.0-12.0 [facility] AreaVljckjwDHPDVJKLNK0098-89-19 09:43:00 Test Item Value Reference Range Interpretation Comments Eosinophils (test code = 1.6 See_Comment [A utomated message] The Eosinophils) system which ge nerated this result tra nsmitted reference range : <=4.0. The reference r mary was not used to int erpret this result as normal/abnormal . [facility] AreaGwihwxqCPTFGMZQQN8090-94-85 09:43:00 Test Item Value Reference Range Interpretation Comments Basophils (test code = 0.4 See_Comment [Aut omated message] The Basophils) system which ge nerated this result tra nsmitted reference range : <=1.0. The reference r mary was not used to int erpret this result as normal/abnormal . [facility] AreaSkpdqxtZCICMEIFHX9235-08-35 09:43:00 Test Item Value Reference Range Interpretation Comments Segs-Bands # (test code = Segs-Bands #) 10.1 1.5-8.1 [facility] AreaQmibfhbSVRYEQUJWV3901-99-52 09:43:00 Test Item Value Reference Range Interpretation Comments Lymphocytes (test code = Lymphocytes) 17.7 20.0-40.0 [facility] AreaLafpdzuPKXJHBNEUU8296-19-13 09:43:00 Test Item Value Reference Range Interpretation Comments Segs (test code = Segs) 71.6 45.0-75.0 [facility] AreaUwvemrcIHWJCRPTND2724-32-19 09:43:00 Test Item Value Reference Range Interpretation Comments MPV (test code = MPV) 8.4 7.4-10.4 [facility] AreaKsygiwfNLERORAUIK3952-13-11 09:43:00 Test Item Value Reference Range Interpretation Comments Platelet (test code = Platelet) 211 133-450 [facility] AreaQadfmrnMTSPMPZYYR0111-24-75 09:43:00 Test Item Value Reference Range Interpretation Comments WBC (test code = WBC) 14.1 3.7-10.4 [facility] AreaHsjdbyeHHCQMLHFZN9871-17-68 09:43:00 Test Item Value Reference Range Interpretation Comments RBC (test code = RBC) 4.43 4.70-6.10 [facility] AreaFeriepdXZWKAPRRHL1093-84-57 09:43:00 Test Item Value Reference Range Interpretation Comments RBC (test code = RBC) 4.43 4.70-6.10 [facility] AreaLrlriwfULDUCEJNUK1422-84-23 09:43:00 Test Item Value Reference Range Interpretation Comments Hgb (test code = Hgb) 13.3 14.0-18.0 [facility] AreaWrqlebtRFXVLKQAQH2950-93-12 09:43:00 Test Item Value Reference Range Interpretation Comments MCV (test code = MCV) 90.8 80.0-94.0 [facility] AreaRhmzfaoOVHROSYAXK5951-59-51 09:43:00 Test Item Value Reference Range Interpretation Comments MCHC (test code = MCHC) 33.1 32.0-36.0 [facility] AreaXiuqefhPRKJAKRPFC0922-64-87 09:43:00 Test Item Value Reference Range Interpretation Comments MCH (test code = MCH) 30.0 pg 27.0-31.0 [facility] AreaSnupllpBDOSIUDXQH3781-06-88 09:43:00 Test Item Value Reference Range Interpretation Comments RDW (test code = RDW) 14.6 11.5-14.5 [facility] AreaGubihkaRWIZETYTTX6677-90-43 09:43:00 Test Item Value Reference Range Interpretation Comments Hct (test code = Hct) 40.2 42.0-54.0 [facility] AreaFsxnjuoNKQBLROUUW0036-45-78 09:43:00 Test Item Value Reference Range Interpretation Comments Hgb (test code = Hgb) 13.3 14.0-18.0 [facility] AreaLuzduyxRJAMSSZEZC3401-81-42 09:43:00 Test Item Value Reference Range Interpretation Comments MCV (test code = MCV) 90.8 80.0-94.0 [facility] AreaWwsitpzJCUUJWVWFA4386-93-77 09:43:00 Test Item Value Reference Range Interpretation Comments MCHC (test code = MCHC) 33.1 32.0-36.0 [facility] AreaGtsplxxBRKXDLYCXC2101-53-11 09:43:00 Test Item Value Reference Range Interpretation Comments MCH (test code = MCH) 30.0 pg 27.0-31.0 [facility] AreaLrkttihJQYCDTRCYW5545-88-70 09:43:00 Test Item Value Reference Range Interpretation Comments RDW (test code = RDW) 14.6 11.5-14.5 [facility] AreaRlevoexVLCHODBBNO0364-83-99 09:43:00 Test Item Value Reference Range Interpretation Comments Hct (test code = Hct) 40.2 42.0-54.0 [facility]2017-08-09 09:43:00 Test Item Value Reference Range Interpretation Comments eGFR (test code = eGFR) 53 [facility]2017-08-09 09:43:00 Test Item Value Reference Range Interpretation Comments Glucose Lvl (test code = Glucose Lvl) 116 70-99 [facility]2017-08-09 09:43:00 Test Item Value Reference Range Interpretation Comments BUN (test code = BUN) 18 7-22 [facility]2017-08-09 09:43:00 Test Item Value Reference Range Interpretation Comments Creatinine Lvl (test code = Creatinine 1.50 0.50-1.40 Lvl) [facility]2017-08-09 09:43:00 Test Item Value Reference Range Interpretation Comments Potassium Lvl (test code = Potassium 3.9 3.5-5.1 Lvl) [facility]2017-08-09 09:43:00 Test Item Value Reference Range Interpretation Comments Sodium Lvl (test code = Sodium Lvl) 137 135-145 [facility]2017-08-09 09:43:00 Test Item Value Reference Range Interpretation Comments Calcium Lvl (test code = Calcium Lvl) 7.9 8.5-10.5 [facility]2017-08-09 09:43:00 Test Item Value Reference Range Interpretation Comments CO2 (test code = CO2) 24 24-32 [facility]2017-08-09 09:43:00 Test Item Value Reference Range Interpretation Comments Chloride Lvl (test code = Chloride Lvl) 104 95-109 [facility]2017-08-09 09:43:00 Test Item Value Reference Range Interpretation Comments AGAP (test code = AGAP) 12.9 10.0-20.0 [facility] AreaIxyctbtGIBVDUGKDI2229-81-50 09:43:00 Test Item Value Reference Range Interpretation Comments Basophils # (test code 0.1 See_Comment [Aut omated message] The = Basophils #) system which generated this result tra nsmitted reference range : <=0.2. The reference r mary was not used to int erpret this result as normal/abnormal . [facility] AreaXbslsceVRTTRBSQNZ0376-38-85 09:43:00 Test Item Value Reference Range Interpretation Comments Monocytes # (test code 1.2 See_Comment [Aut omated message] The = Monocytes #) system which generated this result tra nsmitted reference range : <=0.8. The reference r mary was not used to int erpret this result as normal/abnormal . [facility] AreaGvohfauEESEPOIGYH1202-99-19 09:43:00 Test Item Value Reference Range Interpretation Comments Eosinophils # (test code 0.2 See_Comment [A utomated message] The = Eosinophils #) system whic h generated this result tra nsmitted reference range : <=0.5. The reference r mary was not used to int erpret this result as normal/abnormal . [facility] AreaPhfmpxuNDGXMBQTYR2576-78-20 09:43:00 Test Item Value Reference Range Interpretation Comments Lymphocytes # (test code = Lymphocytes 2.5 1.0-5.5 #) [facility] AreaOekcxujYUQDSVGUUL6144-87-16 09:43:00 Test Item Value Reference Range Interpretation Comments Monocytes (test code = Monocytes) 8.7 2.0-12.0 [facility] AreaCouuhuzNXUGJJOQJJ1640-41-72 09:43:00 Test Item Value Reference Range Interpretation Comments Eosinophils (test code = 1.6 See_Comment [A utomated message] The Eosinophils) system which ge nerated this result tra nsmitted reference range : <=4.0. The reference r mary was not used to int erpret this result as normal/abnormal . [facility] AreaInpssouPXBWFBKIQO1078-78-64 09:43:00 Test Item Value Reference Range Interpretation Comments Basophils (test code = 0.4 See_Comment [Aut omated message] The Basophils) system which ge nerated this result tra nsmitted reference range : <=1.0. The reference r mary was not used to int erpret this result as normal/abnormal . [facility] AreaFhwopiyQQOQGIELGF6963-98-36 09:43:00 Test Item Value Reference Range Interpretation Comments Segs-Bands # (test code = Segs-Bands #) 10.1 1.5-8.1 [facility] AreaNxucpecLQPBVICKDM7788-70-64 09:43:00 Test Item Value Reference Range Interpretation Comments Lymphocytes (test code = Lymphocytes) 17.7 20.0-40.0 [facility] AreaRhwiaxzGVCWRKRALU1044-65-12 09:43:00 Test Item Value Reference Range Interpretation Comments Segs (test code = Segs) 71.6 45.0-75.0 [facility] AreaBmftdrhNJGUZZUMLS7296-05-46 09:43:00 Test Item Value Reference Range Interpretation Comments MPV (test code = MPV) 8.4 7.4-10.4 [facility] AreaBuqooopSEAPRXMWXE6345-68-52 09:43:00 Test Item Value Reference Range Interpretation Comments Platelet (test code = Platelet) 211 133-450 [facility] AreaZklyifbQORPWBEEWX7980-42-23 09:43:00 Test Item Value Reference Range Interpretation Comments WBC (test code = WBC) 14.1 3.7-10.4 [facility] AreaTazppykPWNXOPWTXK3164-58-83 09:43:00 Test Item Value Reference Range Interpretation Comments RBC (test code = RBC) 4.43 4.70-6.10 [facility] AreaQlcfwylMSXNRWWCZS6899-60-14 09:43:00 Test Item Value Reference Range Interpretation Comments Hgb (test code = Hgb) 13.3 14.0-18.0 [facility] AreaDfjgfwzWMHIRLIRKG0292-84-96 09:43:00 Test Item Value Reference Range Interpretation Comments MCV (test code = MCV) 90.8 80.0-94.0 [facility] AreaGwpfaxaBAVCBEPFHZ7317-86-94 09:43:00 Test Item Value Reference Range Interpretation Comments MCHC (test code = MCHC) 33.1 32.0-36.0 [facility] AreaYabmwdoXFOHOFCOIU1458-25-07 09:43:00 Test Item Value Reference Range Interpretation Comments MCH (test code = MCH) 30.0 pg 27.0-31.0 [facility] AreaQlfejspZEHOWGLUWB9818-62-62 09:43:00 Test Item Value Reference Range Interpretation Comments RDW (test code = RDW) 14.6 11.5-14.5 [facility] AreaAcbqefdGJFQUVTNJH3101-33-05 09:43:00 Test Item Value Reference Range Interpretation Comments Hct (test code = Hct) 40.2 42.0-54.0 [facility]2017-08-09 09:43:00 Test Item Value Reference Range Interpretation Comments eGFR (test code = eGFR) 53 [facility]2017-08-09 09:43:00 Test Item Value Reference Range Interpretation Comments Glucose Lvl (test code = Glucose Lvl) 116 70-99 [facility]2017-08-09 09:43:00 Test Item Value Reference Range Interpretation Comments BUN (test code = BUN) 18 7-22 [facility]2017-08-09 09:43:00 Test Item Value Reference Range Interpretation Comments Creatinine Lvl (test code = Creatinine 1.50 0.50-1.40 Lvl) [facility]2017-08-09 09:43:00 Test Item Value Reference Range Interpretation Comments Potassium Lvl (test code = Potassium 3.9 3.5-5.1 Lvl) [facility]2017-08-09 09:43:00 Test Item Value Reference Range Interpretation Comments Sodium Lvl (test code = Sodium Lvl) 137 135-145 [facility]2017-08-09 09:43:00 Test Item Value Reference Range Interpretation Comments Calcium Lvl (test code = Calcium Lvl) 7.9 8.5-10.5 [facility]2017-08-09 09:43:00 Test Item Value Reference Range Interpretation Comments CO2 (test code = CO2) 24 24-32 [facility]2017-08-09 09:43:00 Test Item Value Reference Range Interpretation Comments Chloride Lvl (test code = Chloride Lvl) 104 95-109 [facility]2017-08-09 09:43:00 Test Item Value Reference Range Interpretation Comments AGAP (test code = AGAP) 12.9 10.0-20.0 [facility] AreaYaofaunPFVOBPLSLC8255-24-00 09:43:00 Test Item Value Reference Range Interpretation Comments Basophils # (test code 0.1 See_Comment [Aut omated message] The = Basophils #) system which generated this result tra nsmitted reference range : <=0.2. The reference r mary was not used to int erpret this result as normal/abnormal . [facility] AreaMntbkgkVWIAGSDKQA1052-27-78 09:43:00 Test Item Value Reference Range Interpretation Comments Monocytes # (test code 1.2 See_Comment [Aut omated message] The = Monocytes #) system which generated this result tra nsmitted reference range : <=0.8. The reference r mary was not used to int erpret this result as normal/abnormal . [facility] AreaEszunowQXOQRYMMTT9253-07-24 09:43:00 Test Item Value Reference Range Interpretation Comments Eosinophils # (test code 0.2 See_Comment [A utomated message] The = Eosinophils #) system whic h generated this result tra nsmitted reference range : <=0.5. The reference r mary was not used to int erpret this result as normal/abnormal . [facility] AreaRhziakvOXXQXPFPIC9525-57-08 09:43:00 Test Item Value Reference Range Interpretation Comments Lymphocytes # (test code = Lymphocytes 2.5 1.0-5.5 #) [facility] AreaNdfpoclLLPYKQDLPZ6355-00-06 09:43:00 Test Item Value Reference Range Interpretation Comments Monocytes (test code = Monocytes) 8.7 2.0-12.0 [facility] AreaZiiyocnBEJSBMSLMX8614-39-48 09:43:00 Test Item Value Reference Range Interpretation Comments Eosinophils (test code = 1.6 See_Comment [A utomated message] The Eosinophils) system which ge nerated this result tra nsmitted reference range : <=4.0. The reference r mary was not used to int erpret this result as normal/abnormal . [facility] AreaKkfjnhsLOZNJMDSDQ5137-57-51 09:43:00 Test Item Value Reference Range Interpretation Comments Basophils (test code = 0.4 See_Comment [Aut omated message] The Basophils) system which ge nerated this result tra nsmitted reference range : <=1.0. The reference r mary was not used to int erpret this result as normal/abnormal . [facility] AreaHyhkhrgVQNCWCHTDG4090-86-69 09:43:00 Test Item Value Reference Range Interpretation Comments Segs-Bands # (test code = Segs-Bands #) 10.1 1.5-8.1 [facility] AreaTczksobCHUAEGWTQO4612-02-91 09:43:00 Test Item Value Reference Range Interpretation Comments Lymphocytes (test code = Lymphocytes) 17.7 20.0-40.0 [facility] AreaNitolgrDLEOVSTXDC7202-54-62 09:43:00 Test Item Value Reference Range Interpretation Comments Segs (test code = Segs) 71.6 45.0-75.0 [facility] AreaRlswqioEIRBLWMPSJ4221-27-75 09:43:00 Test Item Value Reference Range Interpretation Comments MPV (test code = MPV) 8.4 7.4-10.4 [facility] AreaGddfkucDTGUKPDKPP0580-38-40 09:43:00 Test Item Value Reference Range Interpretation Comments Platelet (test code = Platelet) 211 133-450 [facility] AreaYnsbxjtLBNWRYAJKY0505-54-87 09:43:00 Test Item Value Reference Range Interpretation Comments WBC (test code = WBC) 14.1 3.7-10.4 [facility] AreaLmqkvelNOEKCFQZFJ9420-47-07 09:43:00 Test Item Value Reference Range Interpretation Comments RBC (test code = RBC) 4.43 4.70-6.10 [facility] AreaJoligetRCNHMCFWVU7154-97-02 09:43:00 Test Item Value Reference Range Interpretation Comments Hgb (test code = Hgb) 13.3 14.0-18.0 [facility] AreaJikhsnrRTSWVALFGS8533-08-65 09:43:00 Test Item Value Reference Range Interpretation Comments MCV (test code = MCV) 90.8 80.0-94.0 [facility] AreaMvzuqxnHGZYYERHPI9826-68-47 09:43:00 Test Item Value Reference Range Interpretation Comments MCHC (test code = MCHC) 33.1 32.0-36.0 [facility] AreaBnemtcyVWBBWJJVPN7213-08-26 09:43:00 Test Item Value Reference Range Interpretation Comments MCH (test code = MCH) 30.0 pg 27.0-31.0 [facility] AreaInvkdkdGDBPFCAWEV3859-07-68 09:43:00 Test Item Value Reference Range Interpretation Comments RDW (test code = RDW) 14.6 11.5-14.5 [facility] AreaJbwseqzQYCCDSXBEZ7574-12-98 09:43:00 Test Item Value Reference Range Interpretation Comments Hct (test code = Hct) 40.2 42.0-54.0 [facility]2017-08-09 09:43:00 Test Item Value Reference Range Interpretation Comments eGFR (test code = eGFR) 53 [facility]2017-08-09 09:43:00 Test Item Value Reference Range Interpretation Comments Glucose Lvl (test code = Glucose Lvl) 116 70-99 [facility]2017-08-09 09:43:00 Test Item Value Reference Range Interpretation Comments BUN (test code = BUN) 18 7-22 [facility]2017-08-09 09:43:00 Test Item Value Reference Range Interpretation Comments Creatinine Lvl (test code = Creatinine 1.50 0.50-1.40 Lvl) [facility]2017-08-09 09:43:00 Test Item Value Reference Range Interpretation Comments Potassium Lvl (test code = Potassium 3.9 3.5-5.1 Lvl) [facility]2017-08-09 09:43:00 Test Item Value Reference Range Interpretation Comments Sodium Lvl (test code = Sodium Lvl) 137 135-145 [facility]2017-08-09 09:43:00 Test Item Value Reference Range Interpretation Comments Calcium Lvl (test code = Calcium Lvl) 7.9 8.5-10.5 [facility]2017-08-09 09:43:00 Test Item Value Reference Range Interpretation Comments CO2 (test code = CO2) 24 24-32 [facility]2017-08-09 09:43:00 Test Item Value Reference Range Interpretation Comments Chloride Lvl (test code = Chloride Lvl) 104 95-109 [facility]2017-08-09 09:43:00 Test Item Value Reference Range Interpretation Comments AGAP (test code = AGAP) 12.9 10.0-20.0 [facility] AreaXldjstpBUCWQLWGAN7945-58-43 09:43:00 Test Item Value Reference Range Interpretation Comments Basophils # (test code 0.1 See_Comment [Aut omated message] The = Basophils #) system which generated this result tra nsmitted reference range : <=0.2. The reference r mary was not used to int erpret this result as normal/abnormal . [facility] AreaOfxtguyPTJGGXRDUC5491-30-13 09:43:00 Test Item Value Reference Range Interpretation Comments Monocytes # (test code 1.2 See_Comment [Aut omated message] The = Monocytes #) system which generated this result tra nsmitted reference range : <=0.8. The reference r mary was not used to int erpret this result as normal/abnormal . [facility] AreaBwyqpjiQPQJHKLWDT1115-22-38 09:43:00 Test Item Value Reference Range Interpretation Comments Eosinophils # (test code 0.2 See_Comment [A utomated message] The = Eosinophils #) system whic h generated this result tra nsmitted reference range : <=0.5. The reference r mary was not used to int erpret this result as normal/abnormal . [facility] AreaKxforwxAGCVHWKWOK9513-51-49 09:43:00 Test Item Value Reference Range Interpretation Comments Lymphocytes # (test code = Lymphocytes 2.5 1.0-5.5 #) [facility] AreaBuacsgcQHVVPZCFFE7286-43-67 09:43:00 Test Item Value Reference Range Interpretation Comments Monocytes (test code = Monocytes) 8.7 2.0-12.0 [facility] AreaMezaaslJYIHBMQGJC2847-78-16 09:43:00 Test Item Value Reference Range Interpretation Comments Eosinophils (test code = 1.6 See_Comment [A utomated message] The Eosinophils) system which ge nerated this result tra nsmitted reference range : <=4.0. The reference r mary was not used to int erpret this result as normal/abnormal . [facility] AreaAcnadmeVOVNRXANNA0775-16-82 09:43:00 Test Item Value Reference Range Interpretation Comments Basophils (test code = 0.4 See_Comment [Aut omated message] The Basophils) system which ge nerated this result tra nsmitted reference range : <=1.0. The reference r mary was not used to int erpret this result as normal/abnormal . [facility] AreaAbwkgxrZLKIXVJUCO0825-57-43 09:43:00 Test Item Value Reference Range Interpretation Comments Segs-Bands # (test code = Segs-Bands #) 10.1 1.5-8.1 [facility] AreaSumhicaTYVMPGIXEO6263-13-41 09:43:00 Test Item Value Reference Range Interpretation Comments Lymphocytes (test code = Lymphocytes) 17.7 20.0-40.0 [facility] AreaOnhgbvwYXBENCZCAN5086-11-74 09:43:00 Test Item Value Reference Range Interpretation Comments Segs (test code = Segs) 71.6 45.0-75.0 [facility] AreaOpunrdbGZAYZCUUAQ1120-46-85 09:43:00 Test Item Value Reference Range Interpretation Comments MPV (test code = MPV) 8.4 7.4-10.4 [facility] AreaFnuzrejOFQRMIWTTB1480-53-81 09:43:00 Test Item Value Reference Range Interpretation Comments Platelet (test code = Platelet) 211 133-450 [facility] AreaPdxsbzeISECXWJQAP5148-68-95 09:43:00 Test Item Value Reference Range Interpretation Comments WBC (test code = WBC) 14.1 3.7-10.4 [facility] AreaVsqpcjzUUXESSAUNN8337-50-80 09:43:00 Test Item Value Reference Range Interpretation Comments RBC (test code = RBC) 4.43 4.70-6.10 [facility] AreaWpiivqkUDXPNEPSOU8907-32-66 09:43:00 Test Item Value Reference Range Interpretation Comments Hgb (test code = Hgb) 13.3 14.0-18.0 [facility] AreaPwireefXESSNKPRDX0520-11-76 09:43:00 Test Item Value Reference Range Interpretation Comments MCV (test code = MCV) 90.8 80.0-94.0 [facility] AreaFcdkpszMRYEURQVZV3372-42-38 09:43:00 Test Item Value Reference Range Interpretation Comments MCHC (test code = MCHC) 33.1 32.0-36.0 [facility] AreaVjikduwJBNZTZTYNR6279-71-37 09:43:00 Test Item Value Reference Range Interpretation Comments MCH (test code = MCH) 30.0 pg 27.0-31.0 [facility] AreaZpyitazVSKQYYJHZM3118-59-18 09:43:00 Test Item Value Reference Range Interpretation Comments RDW (test code = RDW) 14.6 11.5-14.5 [facility] AreaXybqrjvZVQFPDXLCQ9648-65-19 09:43:00 Test Item Value Reference Range Interpretation Comments Hct (test code = Hct) 40.2 42.0-54.0 [facility] BWWSU5421[facility]65[facility]72 09:43:00 Test Item Value Reference Range Interpretation Comments eGFR (test code = eGFR) 53 [facility]CHE[facility] LCDOV5489-65-95 09:43:00 Test Item Value Reference Range Interpretation Comments Glucose Lvl (test code = Glucose Lvl) 116 70-99 [facility]2017-08-09 09:43:00 Test Item Value Reference Range Interpretation Comments BUN (test code = BUN) 18 7-22 [facility]2017-08-09 09:43:00 Test Item Value Reference Range Interpretation Comments Creatinine Lvl (test code = Creatinine 1.50 0.50-1.40 Lvl) [facility]2017-08-09 09:43:00 Test Item Value Reference Range Interpretation Comments Potassium Lvl (test code = Potassium 3.9 3.5-5.1 Lvl) [facility]2017-08-09 09:43:00 Test Item Value Reference Range Interpretation Comments Sodium Lvl (test code = Sodium Lvl) 137 135-145 [place] 616067-08-09 09:43:00 Test Item Value Reference Range Interpretation Comments Calcium Lvl (test code = Calcium Lvl) 7.9 8.5-10.5 [facility]2017-08-09 09:43:00 Test Item Value Reference Range Interpretation Comments CO2 (test code = CO2) 24 24-32 [facility]2017-08-09 09:43:00 Test Item Value Reference Range Interpretation Comments Chloride Lvl (test code = Chloride Lvl) 104 95-109 [facility]2017-08-09 09:43:00 Test Item Value Reference Range Interpretation Comments AGAP (test code = AGAP) 12.9 10.0-20.0 [facility] AreaAjgjnczQDXMVWNARK1287-47-83 09:43:00 Test Item Value Reference Range Interpretation Comments Basophils # (test code 0.1 See_Comment [Aut omated message] The = Basophils #) system which generated this result tra nsmitted reference range : <=0.2. The reference r mary was not used to int erpret this result as normal/abnormal . [facility] AreaTkucerhUONXDHMYZE9551-84-89 09:43:00 Test Item Value Reference Range Interpretation Comments Monocytes # (test code 1.2 See_Comment [Aut omated message] The = Monocytes #) system which generated this result tra nsmitted reference range : <=0.8. The reference r mary was not used to int erpret this result as normal/abnormal . [facility] AreaPogjjlrMLWUQKFOIH2841-97-43 09:43:00 Test Item Value Reference Range Interpretation Comments Eosinophils # (test code 0.2 See_Comment [A utomated message] The = Eosinophils #) system whic h generated this result tra nsmitted reference range : <=0.5. The reference r mary was not used to int erpret this result as normal/abnormal . [facility] AreaKamrkrgLTFBTSCMKW2986-99-16 09:43:00 Test Item Value Reference Range Interpretation Comments Lymphocytes # (test code = Lymphocytes 2.5 1.0-5.5 #) [facility] AreaOlpgpanRRSBASRUUE2707-60-61 09:43:00 Test Item Value Reference Range Interpretation Comments Monocytes (test code = Monocytes) 8.7 2.0-12.0 [facility] AreaTcbtmgjTGPURDGIPR2842-06-97 09:43:00 Test Item Value Reference Range Interpretation Comments Eosinophils (test code = 1.6 See_Comment [A utomated message] The Eosinophils) system which ge nerated this result tra nsmitted reference range : <=4.0. The reference r mary was not used to int erpret this result as normal/abnormal . [facility] AreaRfcvvoeJTINVLHIUK6583-37-04 09:43:00 Test Item Value Reference Range Interpretation Comments Basophils (test code = 0.4 See_Comment [Aut omated message] The Basophils) system which ge nerated this result tra nsmitted reference range : <=1.0. The reference r mary was not used to int erpret this result as normal/abnormal . [facility] AreaArmgwkcPQMSBATOZV3836-21-69 09:43:00 Test Item Value Reference Range Interpretation Comments Segs-Bands # (test code = Segs-Bands #) 10.1 1.5-8.1 [facility] AreaSffdhsrGJMZJVZJDF3581-46-94 09:43:00 Test Item Value Reference Range Interpretation Comments Lymphocytes (test code = Lymphocytes) 17.7 20.0-40.0 [facility] AreaScjlkhiFKPZDUYNQE1410-62-78 09:43:00 Test Item Value Reference Range Interpretation Comments Segs (test code = Segs) 71.6 45.0-75.0 [facility] AreaFcxgdzfQRHEPTVYEI2203-20-26 09:43:00 Test Item Value Reference Range Interpretation Comments MPV (test code = MPV) 8.4 7.4-10.4 [facility] AreaHxuhdmsGNMUJFGGVM9303-33-74 09:43:00 Test Item Value Reference Range Interpretation Comments Platelet (test code = Platelet) 211 133-450 [facility] AreaSvhnrvaZFUBETLPDI1865-56-51 09:43:00 Test Item Value Reference Range Interpretation Comments WBC (test code = WBC) 14.1 3.7-10.4 [facility] AreaNnunzaqDLBXYEIFPD4130-76-87 09:43:00 Test Item Value Reference Range Interpretation Comments RBC (test code = RBC) 4.43 4.70-6.10 [facility] AreaSzvvzlhRWQDNHKKTB7161-74-52 09:43:00 Test Item Value Reference Range Interpretation Comments Hgb (test code = Hgb) 13.3 14.0-18.0 [facility] AreaTsrbuocYKEYQDSGHR0919-45-05 09:43:00 Test Item Value Reference Range Interpretation Comments MCV (test code = MCV) 90.8 80.0-94.0 [facility] AreaOcbhvviEQTUEREIYI7556-54-55 09:43:00 Test Item Value Reference Range Interpretation Comments MCHC (test code = MCHC) 33.1 32.0-36.0 [facility] AreaPcaqsjbTBUKROCROT8632-36-11 09:43:00 Test Item Value Reference Range Interpretation Comments MCH (test code = MCH) 30.0 pg 27.0-31.0 [facility] AreaEtmdgynILXTEZSVSZ0747-67-11 09:43:00 Test Item Value Reference Range Interpretation Comments RDW (test code = RDW) 14.6 11.5-14.5 [facility] AreaSxiwrhmNPBQSRHTXA4554-24-58 09:43:00 Test Item Value Reference Range Interpretation Comments Hct (test code = Hct) 40.2 42.0-54.0 [facility]2017-08-09 09:43:00 Test Item Value Reference Range Interpretation Comments eGFR (test code = eGFR) 53 [facility]2017-08-09 09:43:00 Test Item Value Reference Range Interpretation Comments Glucose Lvl (test code = Glucose Lvl) 116 70-99 [facility]2017-08-09 09:43:00 Test Item Value Reference Range Interpretation Comments BUN (test code = BUN) 18 7-22 [facility]2017-08-09 09:43:00 Test Item Value Reference Range Interpretation Comments Creatinine Lvl (test code = Creatinine 1.50 0.50-1.40 Lvl) [facility]2017-08-09 09:43:00 Test Item Value Reference Range Interpretation Comments Potassium Lvl (test code = Potassium 3.9 3.5-5.1 Lvl) [facility]2017-08-09 09:43:00 Test Item Value Reference Range Interpretation Comments Sodium Lvl (test code = Sodium Lvl) 137 135-145 [facility]2017-08-09 09:43:00 Test Item Value Reference Range Interpretation Comments Calcium Lvl (test code = Calcium Lvl) 7.9 8.5-10.5 [facility]2017-08-09 09:43:00 Test Item Value Reference Range Interpretation Comments CO2 (test code = CO2) 24 24-32 [facility]2017-08-09 09:43:00 Test Item Value Reference Range Interpretation Comments Chloride Lvl (test code = Chloride Lvl) 104 95-109 [facility]2017-08-09 09:43:00 Test Item Value Reference Range Interpretation Comments AGAP (test code = AGAP) 12.9 10.0-20.0 [facility] AreaAoggrlqHMZIMROAVU4405-91-05 09:43:00 Test Item Value Reference Range Interpretation Comments Basophils # (test code 0.1 See_Comment [Aut omated message] The = Basophils #) system which generated this result tra nsmitted reference range : <=0.2. The reference r mary was not used to int erpret this result as normal/abnormal . [facility] AreaPcdhsijIGTAMAMUNW1294-67-18 09:43:00 Test Item Value Reference Range Interpretation Comments Monocytes # (test code 1.2 See_Comment [Aut omated message] The = Monocytes #) system which generated this result tra nsmitted reference range : <=0.8. The reference r mary was not used to int erpret this result as normal/abnormal . [facility] AreaIatrsnsHVBPIKSYHB4118-48-41 09:43:00 Test Item Value Reference Range Interpretation Comments Eosinophils # (test code 0.2 See_Comment [A utomated message] The = Eosinophils #) system whic h generated this result tra nsmitted reference range : <=0.5. The reference r mary was not used to int erpret this result as normal/abnormal . [place] 202097-08-09 09:43:00 Test Item Value Reference Range Interpretation Comments Lymphocytes # (test code = Lymphocytes 2.5 1.0-5.5 #) [facility] AreaDdwhvoiNUZEHYCGOA3051-22-41 09:43:00 Test Item Value Reference Range Interpretation Comments Monocytes (test code = Monocytes) 8.7 2.0-12.0 [facility] AreaQpbemfiPIKSNUCGBE7696-44-62 09:43:00 Test Item Value Reference Range Interpretation Comments Eosinophils (test code = 1.6 See_Comment [A utomated message] The Eosinophils) system which ge nerated this result tra nsmitted reference range : <=4.0. The reference r mary was not used to int erpret this result as normal/abnormal . [facility] AreaHoccpqtJDEVBNUWGE8834-46-81 09:43:00 Test Item Value Reference Range Interpretation Comments Basophils (test code = 0.4 See_Comment [Aut omated message] The Basophils) system which ge nerated this result tra nsmitted reference range : <=1.0. The reference r mary was not used to int erpret this result as normal/abnormal . [facility] AreaRyazuevDRQKMKQAQG6272-16-85 09:43:00 Test Item Value Reference Range Interpretation Comments Segs-Bands # (test code = Segs-Bands #) 10.1 1.5-8.1 [facility] AreaMdrjpmqHYAYARSGWI9672-72-68 09:43:00 Test Item Value Reference Range Interpretation Comments Lymphocytes (test code = Lymphocytes) 17.7 20.0-40.0 [facility] AreaYgiflbzZLTHRSUUZZ1655-18-66 09:43:00 Test Item Value Reference Range Interpretation Comments Segs (test code = Segs) 71.6 45.0-75.0 [facility] AreaPakeqmhGHRFTVYECX7641-07-49 09:43:00 Test Item Value Reference Range Interpretation Comments MPV (test code = MPV) 8.4 7.4-10.4 [facility] AreaLsnatfeEAVCLNSOQT0212-95-60 09:43:00 Test Item Value Reference Range Interpretation Comments Platelet (test code = Platelet) 211 133-450 [facility] AreaJmscnqnRAVMORHQAQ6673-18-77 09:43:00 Test Item Value Reference Range Interpretation Comments WBC (test code = WBC) 14.1 3.7-10.4 [facility] AreaLptoezuQWNKOFKNLS6417-83-43 09:43:00 Test Item Value Reference Range Interpretation Comments RBC (test code = RBC) 4.43 4.70-6.10 [facility] AreaAimkdwcRALAIVRDJA4413-30-35 09:43:00 Test Item Value Reference Range Interpretation Comments Hgb (test code = Hgb) 13.3 14.0-18.0 [facility] AreaYwwuiocYWISZWISYT4489-15-69 09:43:00 Test Item Value Reference Range Interpretation Comments MCV (test code = MCV) 90.8 80.0-94.0 [facility] AreaAxeutgnJIEXGHUWAG2694-64-27 09:43:00 Test Item Value Reference Range Interpretation Comments MCHC (test code = MCHC) 33.1 32.0-36.0 [facility] AreaEsiqxsrXIRWGQFPIC1552-88-18 09:43:00 Test Item Value Reference Range Interpretation Comments MCH (test code = MCH) 30.0 pg 27.0-31.0 [facility] AreaZevgnsuHPMHSWALMZ7498-66-14 09:43:00 Test Item Value Reference Range Interpretation Comments RDW (test code = RDW) 14.6 11.5-14.5 [facility] AreaXykujbsLYCXDWRTBY7881-25-97 09:43:00 Test Item Value Reference Range Interpretation Comments Hct (test code = Hct) 40.2 42.0-54.0 [facility]2017-08-09 09:43:00 Test Item Value Reference Range Interpretation Comments eGFR (test code = eGFR) 53 [facility]2017-08-09 09:43:00 Test Item Value Reference Range Interpretation Comments Glucose Lvl (test code = Glucose Lvl) 116 70-99 [facility]2017-08-09 09:43:00 Test Item Value Reference Range Interpretation Comments BUN (test code = BUN) 18 7-22 [facility]2017-08-09 09:43:00 Test Item Value Reference Range Interpretation Comments Creatinine Lvl (test code = Creatinine 1.50 0.50-1.40 Lvl) [facility]2017-08-09 09:43:00 Test Item Value Reference Range Interpretation Comments Potassium Lvl (test code = Potassium 3.9 3.5-5.1 Lvl) [facility]2017-08-09 09:43:00 Test Item Value Reference Range Interpretation Comments Sodium Lvl (test code = Sodium Lvl) 137 135-145 [facility]2017-08-09 09:43:00 Test Item Value Reference Range Interpretation Comments Calcium Lvl (test code = Calcium Lvl) 7.9 8.5-10.5 [facility]2017-08-09 09:43:00 Test Item Value Reference Range Interpretation Comments CO2 (test code = CO2) 24 24-32 [facility]2017-08-09 09:43:00 Test Item Value Reference Range Interpretation Comments Chloride Lvl (test code = Chloride Lvl) 104 95-109 [facility]2017-08-09 09:43:00 Test Item Value Reference Range Interpretation Comments AGAP (test code = AGAP) 12.9 10.0-20.0 [facility] AreaWliyntaNCKTMDTTHB2672-68-14 09:43:00 Test Item Value Reference Range Interpretation Comments Basophils # (test code 0.1 See_Comment [Aut omated message] The = Basophils #) system which generated this result tra nsmitted reference range : <=0.2. The reference r mary was not used to int erpret this result as normal/abnormal . [facility] AreaFnmetqoOUUKKSWDYY8738-69-42 09:43:00 Test Item Value Reference Range Interpretation Comments Monocytes # (test code 1.2 See_Comment [Aut omated message] The = Monocytes #) system which generated this result tra nsmitted reference range : <=0.8. The reference r mary was not used to int erpret this result as normal/abnormal . [facility] AreaTrecrapMCRDBEUUXC3874-20-34 09:43:00 Test Item Value Reference Range Interpretation Comments Eosinophils # (test code 0.2 See_Comment [A utomated message] The = Eosinophils #) system whic h generated this result tra nsmitted reference range : <=0.5. The reference r mary was not used to int erpret this result as normal/abnormal . [facility] AreaOdcdnfdLHXLYKWUQJ3951-00-46 09:43:00 Test Item Value Reference Range Interpretation Comments Lymphocytes # (test code = Lymphocytes 2.5 1.0-5.5 #) [facility] AreaUkuooelXKTRGISRGU0128-94-45 09:43:00 Test Item Value Reference Range Interpretation Comments Monocytes (test code = Monocytes) 8.7 2.0-12.0 [facility] AreaUidzeggZUEDVNXUGD3097-75-28 09:43:00 Test Item Value Reference Range Interpretation Comments Eosinophils (test code = 1.6 See_Comment [A utomated message] The Eosinophils) system which ge nerated this result tra nsmitted reference range : <=4.0. The reference r mary was not used to int erpret this result as normal/abnormal . [facility] AreaSrmtzrwBLTEGLWDHU7723-17-72 09:43:00 Test Item Value Reference Range Interpretation Comments Basophils (test code = 0.4 See_Comment [Aut omated message] The Basophils) system which ge nerated this result tra nsmitted reference range : <=1.0. The reference r mary was not used to int erpret this result as normal/abnormal . [facility] AreaRvecfqaVVLNRBHHOU7107-06-23 09:43:00 Test Item Value Reference Range Interpretation Comments Segs-Bands # (test code = Segs-Bands #) 10.1 1.5-8.1 [facility] AreaImzclcpHQHPZUADPU7901-55-50 09:43:00 Test Item Value Reference Range Interpretation Comments Lymphocytes (test code = Lymphocytes) 17.7 20.0-40.0 [facility] AreaChxlcmbTLGQWTPGPH8971-89-09 09:43:00 Test Item Value Reference Range Interpretation Comments Segs (test code = Segs) 71.6 45.0-75.0 [facility] AreaWwzznwkOBTDRTOZHR8327-99-60 09:43:00 Test Item Value Reference Range Interpretation Comments MPV (test code = MPV) 8.4 7.4-10.4 [facility] AreaKfuabnzDFCVXIKFWT3241-61-80 09:43:00 Test Item Value Reference Range Interpretation Comments Platelet (test code = Platelet) 211 133-450 [facility] AreaRqpcpmwNFDBWGYOWM7949-86-38 09:43:00 Test Item Value Reference Range Interpretation Comments WBC (test code = WBC) 14.1 3.7-10.4 [facility] AreaVgcyhaiPCFEDOOGBD2909-83-24 09:43:00 Test Item Value Reference Range Interpretation Comments RBC (test code = RBC) 4.43 4.70-6.10 [facility] AreaVlrgcrxXCEQCBLRWV1541-31-59 09:43:00 Test Item Value Reference Range Interpretation Comments Hgb (test code = Hgb) 13.3 14.0-18.0 [facility] AreaIiybihuMFRSZEDNIB1772-17-22 09:43:00 Test Item Value Reference Range Interpretation Comments MCV (test code = MCV) 90.8 80.0-94.0 [facility] AreaQfilsjfBCTRVBTTMP6726-08-44 09:43:00 Test Item Value Reference Range Interpretation Comments MCHC (test code = MCHC) 33.1 32.0-36.0 [facility] AreaQjdoxdsLLHCJQKQSL3008-32-80 09:43:00 Test Item Value Reference Range Interpretation Comments MCH (test code = MCH) 30.0 pg 27.0-31.0 [facility] AreaIhrrvcxTAHVCRZYAK1497-05-05 09:43:00 Test Item Value Reference Range Interpretation Comments RDW (test code = RDW) 14.6 11.5-14.5 [facility] AreaGwypumhWIFDKYRYQY1100-74-66 09:43:00 Test Item Value Reference Range Interpretation Comments Hct (test code = Hct) 40.2 42.0-54.0 [facility]2017-08-09 09:43:00 Test Item Value Reference Range Interpretation Comments eGFR (test code = eGFR) 53 [facility]2017-08-09 09:43:00 Test Item Value Reference Range Interpretation Comments Glucose Lvl (test code = Glucose Lvl) 116 70-99 [facility]2017-08-09 09:43:00 Test Item Value Reference Range Interpretation Comments BUN (test code = BUN) 18 7-22 [facility]2017-08-09 09:43:00 Test Item Value Reference Range Interpretation Comments Creatinine Lvl (test code = Creatinine 1.50 0.50-1.40 Lvl) [facility]2017-08-09 09:43:00 Test Item Value Reference Range Interpretation Comments Potassium Lvl (test code = Potassium 3.9 3.5-5.1 Lvl) [facility]2017-08-09 09:43:00 Test Item Value Reference Range Interpretation Comments Sodium Lvl (test code = Sodium Lvl) 137 135-145 [facility]2017-08-09 09:43:00 Test Item Value Reference Range Interpretation Comments Calcium Lvl (test code = Calcium Lvl) 7.9 8.5-10.5 [facility]2017-08-09 09:43:00 Test Item Value Reference Range Interpretation Comments CO2 (test code = CO2) 24 24-32 [facility]2017-08-09 09:43:00 Test Item Value Reference Range Interpretation Comments Chloride Lvl (test code = Chloride Lvl) 104 95-109 [facility]2017-08-09 09:43:00 Test Item Value Reference Range Interpretation Comments AGAP (test code = AGAP) 12.9 10.0-20.0 [facility] AreaDthmrruJDQDOJIVSG5930-77-38 09:43:00 Test Item Value Reference Range Interpretation Comments Basophils # (test code 0.1 See_Comment [Aut omated message] The = Basophils #) system which generated this result tra nsmitted reference range : <=0.2. The reference r mary was not used to int erpret this result as normal/abnormal . [facility] AreaScvtttpRRSKSDOMJQ3214-24-91 09:43:00 Test Item Value Reference Range Interpretation Comments Monocytes # (test code 1.2 See_Comment [Aut omated message] The = Monocytes #) system which generated this result tra nsmitted reference range : <=0.8. The reference r mary was not used to int erpret this result as normal/abnormal . [facility] AreaJetwjllPZVHDZCODE8887-72-68 09:43:00 Test Item Value Reference Range Interpretation Comments Eosinophils # (test code 0.2 See_Comment [A utomated message] The = Eosinophils #) system whic h generated this result tra nsmitted reference range : <=0.5. The reference r mary was not used to int erpret this result as normal/abnormal . [facility] AreaFwlulzpEMBDPAEFUR2881-62-39 09:43:00 Test Item Value Reference Range Interpretation Comments Lymphocytes # (test code = Lymphocytes 2.5 1.0-5.5 #) [facility] AreaXayuzenAGJECHTDZO1599-32-78 09:43:00 Test Item Value Reference Range Interpretation Comments Monocytes (test code = Monocytes) 8.7 2.0-12.0 [facility] AreaDjaimhqAZTSOUIDTV2830-05-27 09:43:00 Test Item Value Reference Range Interpretation Comments Eosinophils (test code = 1.6 See_Comment [A utomated message] The Eosinophils) system which ge nerated this result tra nsmitted reference range : <=4.0. The reference r mary was not used to int erpret this result as normal/abnormal . [facility] AreaBxvsaehKEDSKYJNQO5350-51-33 09:43:00 Test Item Value Reference Range Interpretation Comments Basophils (test code = 0.4 See_Comment [Aut omated message] The Basophils) system which ge nerated this result tra nsmitted reference range : <=1.0. The reference r mary was not used to int erpret this result as normal/abnormal . [facility] AreaVdgtrxbYOPPKYSYZU0218-80-76 09:43:00 Test Item Value Reference Range Interpretation Comments Segs-Bands # (test code = Segs-Bands #) 10.1 1.5-8.1 [facility] AreaQbyaabnGUVRUVYOLO5267-48-00 09:43:00 Test Item Value Reference Range Interpretation Comments Lymphocytes (test code = Lymphocytes) 17.7 20.0-40.0 [facility] AreaLesgellAPZNNQVCHP0486-94-49 09:43:00 Test Item Value Reference Range Interpretation Comments Segs (test code = Segs) 71.6 45.0-75.0 [facility] AreaAjqlnphDBRSOQWNHO3803-52-34 09:43:00 Test Item Value Reference Range Interpretation Comments MPV (test code = MPV) 8.4 7.4-10.4 [facility] AreaNjbuzgxIWUANRSYZV7216-34-18 09:43:00 Test Item Value Reference Range Interpretation Comments Platelet (test code = Platelet) 211 133-450 [facility] AreaLyzdabtYQTNOPSPPF9163-78-11 09:43:00 Test Item Value Reference Range Interpretation Comments WBC (test code = WBC) 14.1 3.7-10.4 [facility] AreaQxpopijXWDKEZIDFI8216-60-54 09:43:00 Test Item Value Reference Range Interpretation Comments RBC (test code = RBC) 4.43 4.70-6.10 [facility] AreaCzqcmgjBJMHLOWOOX2782-92-25 09:43:00 Test Item Value Reference Range Interpretation Comments Hgb (test code = Hgb) 13.3 14.0-18.0 [facility] AreaKolmcxuTYESRRDZAA8986-65-30 09:43:00 Test Item Value Reference Range Interpretation Comments MCV (test code = MCV) 90.8 80.0-94.0 [facility] AreaOhazfhjPLJKUKHSNA7763-66-00 09:43:00 Test Item Value Reference Range Interpretation Comments MCHC (test code = MCHC) 33.1 32.0-36.0 [facility] AreaOqsputfODPTMPHWXF9197-91-07 09:43:00 Test Item Value Reference Range Interpretation Comments MCH (test code = MCH) 30.0 pg 27.0-31.0 [facility] AreaNjzswnwFRGIKHCGKT9791-90-23 09:43:00 Test Item Value Reference Range Interpretation Comments RDW (test code = RDW) 14.6 11.5-14.5 [facility] AreaZjiqzynUUFXJLWIWM4083-19-82 09:43:00 Test Item Value Reference Range Interpretation Comments Hct (test code = Hct) 40.2 42.0-54.0 [facility]2017-08-09 09:43:00 Test Item Value Reference Range Interpretation Comments eGFR (test code = eGFR) 53 [facility]2017-08-09 09:43:00 Test Item Value Reference Range Interpretation Comments Glucose Lvl (test code = Glucose Lvl) 116 70-99 [facility]2017-08-09 09:43:00 Test Item Value Reference Range Interpretation Comments BUN (test code = BUN) 18 7-22 [facility]2017-08-09 09:43:00 Test Item Value Reference Range Interpretation Comments Creatinine Lvl (test code = Creatinine 1.50 0.50-1.40 Lvl) [facility]2017-08-09 09:43:00 Test Item Value Reference Range Interpretation Comments Potassium Lvl (test code = Potassium 3.9 3.5-5.1 Lvl) [facility]2017-08-09 09:43:00 Test Item Value Reference Range Interpretation Comments Sodium Lvl (test code = Sodium Lvl) 137 135-145 [facility]2017-08-09 09:43:00 Test Item Value Reference Range Interpretation Comments Calcium Lvl (test code = Calcium Lvl) 7.9 8.5-10.5 [facility]2017-08-09 09:43:00 Test Item Value Reference Range Interpretation Comments CO2 (test code = CO2) 24 24-32 [facility]2017-08-09 09:43:00 Test Item Value Reference Range Interpretation Comments Chloride Lvl (test code = Chloride Lvl) 104 95-109 [facility]2017-08-09 09:43:00 Test Item Value Reference Range Interpretation Comments AGAP (test code = AGAP) 12.9 10.0-20.0 [facility] [facility]jlkfzgVDDBHQNXQY3548-57-74 09:43:00 Test Item Value Reference Range Interpretation Comments Basophils # (test code 0.1 See_Comment [Aut omated message] The = Basophils #) system which generated this result tra nsmitted reference range : <=0.2. The reference r mary was not used to int erpret this result as normal/abnormal . [facility] AreaJnyyqdyHAJIEBGLDL7476-89-05 09:43:00 Test Item Value Reference Range Interpretation Comments Monocytes # (test code 1.2 See_Comment [Aut omated message] The = Monocytes #) system which generated this result tra nsmitted reference range : <=0.8. The reference r mary was not used to int erpret this result as normal/abnormal . [facility] AreaMczqturNIYCKKGLDP7211-57-10 09:43:00 Test Item Value Reference Range Interpretation Comments Eosinophils # (test code 0.2 See_Comment [A utomated message] The = Eosinophils #) system whic h generated this result tra nsmitted reference range : <=0.5. The reference r mary was not used to int erpret this result as normal/abnormal . [facility] AreaJoxnmocTKMEMBUTRL1716-93-62 09:43:00 Test Item Value Reference Range Interpretation Comments Lymphocytes # (test code = Lymphocytes 2.5 1.0-5.5 #) [facility] AreaTennjeeGZKIVAPNES0816-40-55 09:43:00 Test Item Value Reference Range Interpretation Comments Monocytes (test code = Monocytes) 8.7 2.0-12.0 [facility] AreaAjqmgvtAZSBXPOIWI2389-17-72 09:43:00 Test Item Value Reference Range Interpretation Comments Eosinophils (test code = 1.6 See_Comment [A utomated message] The Eosinophils) system which ge nerated this result tra nsmitted reference range : <=4.0. The reference r mary was not used to int erpret this result as normal/abnormal . [facility] AreaWxrtmbpJDTBFWFVWF3221-46-99 09:43:00 Test Item Value Reference Range Interpretation Comments Basophils (test code = 0.4 See_Comment [Aut omated message] The Basophils) system which ge nerated this result tra nsmitted reference range : <=1.0. The reference r mary was not used to int erpret this result as normal/abnormal . [facility] AreaZhqrhrsWTFLMTLRAV9366-16-24 09:43:00 Test Item Value Reference Range Interpretation Comments Segs-Bands # (test code = Segs-Bands #) 10.1 1.5-8.1 [facility] AreaWwtzpbtKXNOSYZMSJ2094-82-06 09:43:00 Test Item Value Reference Range Interpretation Comments Lymphocytes (test code = Lymphocytes) 17.7 20.0-40.0 [facility] AreaZzkbkejFYBUVUVDPF8398-84-35 09:43:00 Test Item Value Reference Range Interpretation Comments Segs (test code = Segs) 71.6 45.0-75.0 [facility] AreaVhmtadcTCPMXABYCI4739-83-05 09:43:00 Test Item Value Reference Range Interpretation Comments MPV (test code = MPV) 8.4 7.4-10.4 [facility] AreaUwphrjzNTHMQGLHDD1812-48-92 09:43:00 Test Item Value Reference Range Interpretation Comments Platelet (test code = Platelet) 211 133-450 [facility] AreaGjuzjjbUXTKUVYUPF7970-50-10 09:43:00 Test Item Value Reference Range Interpretation Comments WBC (test code = WBC) 14.1 3.7-10.4 [facility] AreaRebayjiGWHVJRXTFZ7788-97-41 09:43:00 Test Item Value Reference Range Interpretation Comments RBC (test code = RBC) 4.43 4.70-6.10 [facility] AreaSymphraCMCPAHUBIA0048-66-12 09:43:00 Test Item Value Reference Range Interpretation Comments Hgb (test code = Hgb) 13.3 14.0-18.0 [facility] AreaRbfxwszHZEEQCODAS8792-53-36 09:43:00 Test Item Value Reference Range Interpretation Comments MCV (test code = MCV) 90.8 80.0-94.0 [facility] AreaRnaxnstZLIFREWOKM1235-55-63 09:43:00 Test Item Value Reference Range Interpretation Comments MCHC (test code = MCHC) 33.1 32.0-36.0 [facility] AreaYjhatkzXYKIUAKTTE7130-15-11 09:43:00 Test Item Value Reference Range Interpretation Comments MCH (test code = MCH) 30.0 pg 27.0-31.0 [facility] AreaZuwiccgPRFPHYOMGB9502-63-49 09:43:00 Test Item Value Reference Range Interpretation Comments RDW (test code = RDW) 14.6 11.5-14.5 [facility] AreaOomzpvcFNWONGUZEL2867-82-07 09:43:00 Test Item Value Reference Range Interpretation Comments Hct (test code = Hct) 40.2 42.0-54.0 [facility]2017-08-09 09:43:00 Test Item Value Reference Range Interpretation Comments eGFR (test code = eGFR) 53 [facility]2017-08-09 09:43:00 Test Item Value Reference Range Interpretation Comments Glucose Lvl (test code = Glucose Lvl) 116 70-99 [facility]2017-08-09 09:43:00 Test Item Value Reference Range Interpretation Comments BUN (test code = BUN) 18 7-22 [facility]2017-08-09 09:43:00 Test Item Value Reference Range Interpretation Comments Creatinine Lvl (test code = Creatinine 1.50 0.50-1.40 Lvl) [facility]2017-08-09 09:43:00 Test Item Value Reference Range Interpretation Comments Potassium Lvl (test code = Potassium 3.9 3.5-5.1 Lvl) [facility]2017-08-09 09:43:00 Test Item Value Reference Range Interpretation Comments Sodium Lvl (test code = Sodium Lvl) 137 135-145 [facility]2017-08-09 09:43:00 Test Item Value Reference Range Interpretation Comments Calcium Lvl (test code = Calcium Lvl) 7.9 8.5-10.5 [facility]2017-08-09 09:43:00 Test Item Value Reference Range Interpretation Comments CO2 (test code = CO2) 24 24-32 [facility]2017-08-09 09:43:00 Test Item Value Reference Range Interpretation Comments Chloride Lvl (test code = Chloride Lvl) 104 95-109 [facility]2017-08-09 09:43:00 Test Item Value Reference Range Interpretation Comments AGAP (test code = AGAP) 12.9 10.0-20.0 [facility] AreaJfvasyeKXBLKKBGSO8609-41-36 09:43:00 Test Item Value Reference Range Interpretation Comments Basophils # (test code 0.1 See_Comment [Aut omated message] The = Basophils #) system which generated this result tra nsmitted reference range : <=0.2. The reference r mary was not used to int erpret this result as normal/abnormal . [facility] AreaHwefheyVTMCGFWFKA0357-83-50 09:43:00 Test Item Value Reference Range Interpretation Comments Monocytes # (test code 1.2 See_Comment [Aut omated message] The = Monocytes #) system which generated this result tra nsmitted reference range : <=0.8. The reference r mary was not used to int erpret this result as normal/abnormal . [facility] AreaKxvalrdTIUAZLDYEA9051-16-81 09:43:00 Test Item Value Reference Range Interpretation Comments Eosinophils # (test code 0.2 See_Comment [A utomated message] The = Eosinophils #) system whic h generated this result tra nsmitted reference range : <=0.5. The reference r mary was not used to int erpret this result as normal/abnormal . [facility] AreaXgciesoUUWGZGOGPD6973-37-23 09:43:00 Test Item Value Reference Range Interpretation Comments Lymphocytes # (test code = Lymphocytes 2.5 1.0-5.5 #) [facility] AreaPcikxijMVTVBRMGAC5966-59-28 09:43:00 Test Item Value Reference Range Interpretation Comments Monocytes (test code = Monocytes) 8.7 2.0-12.0 [facility] AreaJvrpxcxXWPBBSQTIM8340-36-12 09:43:00 Test Item Value Reference Range Interpretation Comments Eosinophils (test code = 1.6 See_Comment [A utomated message] The Eosinophils) system which ge nerated this result tra nsmitted reference range : <=4.0. The reference r mary was not used to int erpret this result as normal/abnormal . [facility] AreaJqggmphRZTTOMFHMZ4583-14-10 09:43:00 Test Item Value Reference Range Interpretation Comments Basophils (test code = 0.4 See_Comment [Aut omated message] The Basophils) system which ge nerated this result tra nsmitted reference range : <=1.0. The reference r mary was not used to int erpret this result as normal/abnormal . [facility] AreaYnxsinvKOYKOUIMZR6987-78-25 09:43:00 Test Item Value Reference Range Interpretation Comments Segs-Bands # (test code = Segs-Bands #) 10.1 1.5-8.1 [facility] AreaRdyfqtuQRENWLZRFY0958-98-71 09:43:00 Test Item Value Reference Range Interpretation Comments Lymphocytes (test code = Lymphocytes) 17.7 20.0-40.0 [facility] AreaKbbzldtXXDNDJERBM7266-30-73 09:43:00 Test Item Value Reference Range Interpretation Comments Segs (test code = Segs) 71.6 45.0-75.0 [facility] AreaBmkeaqsZXCWSRZSMX7610-65-19 09:43:00 Test Item Value Reference Range Interpretation Comments MPV (test code = MPV) 8.4 7.4-10.4 [facility] AreaKqegvgiZBHHIHXZQS4620-01-35 09:43:00 Test Item Value Reference Range Interpretation Comments Platelet (test code = Platelet) 211 133-450 [facility] AreaMpxnugtIADMLHGLUR4768-35-42 09:43:00 Test Item Value Reference Range Interpretation Comments WBC (test code = WBC) 14.1 3.7-10.4 [facility] AreaIizvghxVOZKCYQLTK6644-19-15 09:43:00 Test Item Value Reference Range Interpretation Comments RBC (test code = RBC) 4.43 4.70-6.10 [facility] AreaDmehvdtASWMAWMKCH3880-56-25 09:43:00 Test Item Value Reference Range Interpretation Comments Hgb (test code = Hgb) 13.3 14.0-18.0 [facility] AreaWwkrvzkWUPFGMQCND2438-09-81 09:43:00 Test Item Value Reference Range Interpretation Comments MCV (test code = MCV) 90.8 80.0-94.0 [facility] AreaAtwapfrRWJDKBXKHP5171-54-59 09:43:00 Test Item Value Reference Range Interpretation Comments MCHC (test code = MCHC) 33.1 32.0-36.0 [facility] AreaQjbuarvIHITNOQONN4457-63-94 09:43:00 Test Item Value Reference Range Interpretation Comments MCH (test code = MCH) 30.0 pg 27.0-31.0 [facility] AreaYdkszwkPTQYOMJRPC3526-24-97 09:43:00 Test Item Value Reference Range Interpretation Comments RDW (test code = RDW) 14.6 11.5-14.5 [facility] AreaOicqvmtYOTWKGILFJ9328-43-50 09:43:00 Test Item Value Reference Range Interpretation Comments Hct (test code = Hct) 40.2 42.0-54.0 [facility]2017-08-09 09:43:00 Test Item Value Reference Range Interpretation Comments eGFR (test code = eGFR) 53 [facility]2017-08-09 09:43:00 Test Item Value Reference Range Interpretation Comments Glucose Lvl (test code = Glucose Lvl) 116 70-99 [facility]2017-08-09 09:43:00 Test Item Value Reference Range Interpretation Comments BUN (test code = BUN) 18 7-22 [facility]2017-08-09 09:43:00 Test Item Value Reference Range Interpretation Comments Creatinine Lvl (test code = Creatinine 1.50 0.50-1.40 Lvl) [facility]2017-08-09 09:43:00 Test Item Value Reference Range Interpretation Comments Potassium Lvl (test code = Potassium 3.9 3.5-5.1 Lvl) [facility]2017-08-09 09:43:00 Test Item Value Reference Range Interpretation Comments Sodium Lvl (test code = Sodium Lvl) 137 135-145 [facility]2017-08-09 09:43:00 Test Item Value Reference Range Interpretation Comments Calcium Lvl (test code = Calcium Lvl) 7.9 8.5-10.5 [facility]2017-08-09 09:43:00 Test Item Value Reference Range Interpretation Comments CO2 (test code = CO2) 24 24-32 [facility]2017-08-09 09:43:00 Test Item Value Reference Range Interpretation Comments Chloride Lvl (test code = Chloride Lvl) 104 95-109 [facility]2017-08-09 09:43:00 Test Item Value Reference Range Interpretation Comments AGAP (test code = AGAP) 12.9 10.0-20.0 [facility] AreaIsnixppBOODBCMKSP1204-94-30 09:43:00 Test Item Value Reference Range Interpretation Comments Basophils # (test code 0.1 See_Comment [Aut omated message] The = Basophils #) system which generated this result tra nsmitted reference range : <=0.2. The reference r mary was not used to int erpret this result as normal/abnormal . [facility] AreaZsytahbQXXAPNXDXV9942-69-50 09:43:00 Test Item Value Reference Range Interpretation Comments Monocytes # (test code 1.2 See_Comment [Aut omated message] The = Monocytes #) system which generated this result tra nsmitted reference range : <=0.8. The reference r mary was not used to int erpret this result as normal/abnormal . [facility] AreaBooeujhJXAWSHYPUE2838-96-62 09:43:00 Test Item Value Reference Range Interpretation Comments Eosinophils # (test code 0.2 See_Comment [A utomated message] The = Eosinophils #) system whic h generated this result tra nsmitted reference range : <=0.5. The reference r mary was not used to int erpret this result as normal/abnormal . [facility] AreaVcwjumqWIBGKQLLOO2330-41-65 09:43:00 Test Item Value Reference Range Interpretation Comments Lymphocytes # (test code = Lymphocytes 2.5 1.0-5.5 #) [facility] AreaKzxcwfjQUBXHTTLSQ3448-01-13 09:43:00 Test Item Value Reference Range Interpretation Comments Monocytes (test code = Monocytes) 8.7 2.0-12.0 [facility] AreaUagpwmqOKCCRZETCP8819-51-48 09:43:00 Test Item Value Reference Range Interpretation Comments Eosinophils (test code = 1.6 See_Comment [A utomated message] The Eosinophils) system which ge nerated this result tra nsmitted reference range : <=4.0. The reference r mary was not used to int erpret this result as normal/abnormal . [facility] AreaGpkmgfwWIQFWGZUMC0759-03-41 09:43:00 Test Item Value Reference Range Interpretation Comments Basophils (test code = 0.4 See_Comment [Aut omated message] The Basophils) system which ge nerated this result tra nsmitted reference range : <=1.0. The reference r mary was not used to int erpret this result as normal/abnormal . [facility] AreaKogouqoIVXUBGGYDE4172-10-09 09:43:00 Test Item Value Reference Range Interpretation Comments Segs-Bands # (test code = Segs-Bands #) 10.1 1.5-8.1 [facility] AreaSupfyxgOIFLWDXDIC9939-31-30 09:43:00 Test Item Value Reference Range Interpretation Comments Lymphocytes (test code = Lymphocytes) 17.7 20.0-40.0 [facility] AreaHirawlgXCNSYADEZY6117-82-88 09:43:00 Test Item Value Reference Range Interpretation Comments Segs (test code = Segs) 71.6 45.0-75.0 [facility] AreaCqbajbtEMIVQJGEYL4611-33-85 09:43:00 Test Item Value Reference Range Interpretation Comments MPV (test code = MPV) 8.4 7.4-10.4 [facility] AreaBlxzfnyINTSAHYQAX7290-65-30 09:43:00 Test Item Value Reference Range Interpretation Comments Platelet (test code = Platelet) 211 133-450 [facility] AreaHaxrprzUQCMNVDKGW3285-41-65 09:43:00 Test Item Value Reference Range Interpretation Comments WBC (test code = WBC) 14.1 3.7-10.4 [facility] AreaYsemzthYNENQYOJXQ3691-83-47 09:43:00 Test Item Value Reference Range Interpretation Comments RBC (test code = RBC) 4.43 4.70-6.10 [facility] AreaLkeeplqWUWSNGXMBX3993-69-44 09:43:00 Test Item Value Reference Range Interpretation Comments Hgb (test code = Hgb) 13.3 14.0-18.0 [facility] AreaFwwkiyaRDJLXIJHCC6847-00-00 09:43:00 Test Item Value Reference Range Interpretation Comments MCV (test code = MCV) 90.8 80.0-94.0 [facility] AreaYcldpwlRZFYPOZWGP5888-14-57 09:43:00 Test Item Value Reference Range Interpretation Comments MCHC (test code = MCHC) 33.1 32.0-36.0 [facility] AreaDgnrgduUQXWHEWHVD5416-24-84 09:43:00 Test Item Value Reference Range Interpretation Comments MCH (test code = MCH) 30.0 pg 27.0-31.0 [facility] AreaQahojmqWRYHXUWIPK0571-71-74 09:43:00 Test Item Value Reference Range Interpretation Comments RDW (test code = RDW) 14.6 11.5-14.5 [facility] AreaTgodsubIAHRYDDHXK1391-61-95 09:43:00 Test Item Value Reference Range Interpretation Comments Hct (test code = Hct) 40.2 42.0-54.0 [facility]2017-08-09 09:43:00 Test Item Value Reference Range Interpretation Comments eGFR (test code = eGFR) 53 [facility]2017-08-09 09:43:00 Test Item Value Reference Range Interpretation Comments Glucose Lvl (test code = Glucose Lvl) 116 70-99 [facility]2017-08-09 09:43:00 Test Item Value Reference Range Interpretation Comments BUN (test code = BUN) 18 7-22 [facility]2017-08-09 09:43:00 Test Item Value Reference Range Interpretation Comments Creatinine Lvl (test code = Creatinine 1.50 0.50-1.40 Lvl) [facility]2017-08-09 09:43:00 Test Item Value Reference Range Interpretation Comments Potassium Lvl (test code = Potassium 3.9 3.5-5.1 Lvl) [facility]2017-08-09 09:43:00 Test Item Value Reference Range Interpretation Comments Sodium Lvl (test code = Sodium Lvl) 137 135-145 [facility]2017-08-09 09:43:00 Test Item Value Reference Range Interpretation Comments Calcium Lvl (test code = Calcium Lvl) 7.9 8.5-10.5 [facility]2017-08-09 09:43:00 Test Item Value Reference Range Interpretation Comments CO2 (test code = CO2) 24 24-32 [facility]2017-08-09 09:43:00 Test Item Value Reference Range Interpretation Comments Chloride Lvl (test code = Chloride Lvl) 104 95-109 [facility]2017-08-09 09:43:00 Test Item Value Reference Range Interpretation Comments eGFR (test code = eGFR) 53 [facility]2017-08-09 09:43:00 Test Item Value Reference Range Interpretation Comments Glucose Lvl (test code = Glucose Lvl) 116 70-99 [facility]2017-08-09 09:43:00 Test Item Value Reference Range Interpretation Comments BUN (test code = BUN) 18 7-22 [facility]2017-08-09 09:43:00 Test Item Value Reference Range Interpretation Comments Creatinine Lvl (test code = Creatinine 1.50 0.50-1.40 Lvl) [facility]2017-08-09 09:43:00 Test Item Value Reference Range Interpretation Comments Potassium Lvl (test code = Potassium 3.9 3.5-5.1 Lvl) [facility]2017-08-09 09:43:00 Test Item Value Reference Range Interpretation Comments Sodium Lvl (test code = Sodium Lvl) 137 135-145 [facility]2017-08-09 09:43:00 Test Item Value Reference Range Interpretation Comments Calcium Lvl (test code = Calcium Lvl) 7.9 8.5-10.5 [facility]2017-08-09 09:43:00 Test Item Value Reference Range Interpretation Comments CO2 (test code = CO2) 24 24-32 [facility]2017-08-09 09:43:00 Test Item Value Reference Range Interpretation Comments AGAP (test code = AGAP) 12.9 10.0-20.0 [facility]2017-08-09 09:43:00 Test Item Value Reference Range Interpretation Comments Chloride Lvl (test code = Chloride Lvl) 104 95-109 [facility]2017-08-09 09:43:00 Test Item Value Reference Range Interpretation Comments AGAP (test code = AGAP) 12.9 10.0-20.0 [facility] AreaAemqgthAQVTEWRJQY8155-59-75 09:43:00 Test Item Value Reference Range Interpretation Comments Basophils # (test code 0.1 See_Comment [Aut omated message] The = Basophils #) system which generated this result tra nsmitted reference range : <=0.2. The reference r mary was not used to int erpret this result as normal/abnormal . [facility] AreaGplhpyuFEMTWBXGOK0152-42-08 09:43:00 Test Item Value Reference Range Interpretation Comments Monocytes # (test code 1.2 See_Comment [Aut omated message] The = Monocytes #) system which generated this result tra nsmitted reference range : <=0.8. The reference r mary was not used to int erpret this result as normal/abnormal . [facility] AreaYlpljrlCYZIIVTECR8641-53-58 09:43:00 Test Item Value Reference Range Interpretation Comments Eosinophils # (test code 0.2 See_Comment [A utomated message] The = Eosinophils #) system whic h generated this result tra nsmitted reference range : <=0.5. The reference r mary was not used to int erpret this result as normal/abnormal . [facility] AreaVjxsoqdIJGITZIRDE8770-48-41 09:43:00 Test Item Value Reference Range Interpretation Comments Lymphocytes # (test code = Lymphocytes 2.5 1.0-5.5 #) [facility] AreaMdmpqepSYPPTGWEPC3295-02-96 09:43:00 Test Item Value Reference Range Interpretation Comments Monocytes (test code = Monocytes) 8.7 2.0-12.0 [facility] AreaSgjlzvoPQBRKIIFTA8284-60-82 09:43:00 Test Item Value Reference Range Interpretation Comments Eosinophils (test code = 1.6 See_Comment [A utomated message] The Eosinophils) system which ge nerated this result tra nsmitted reference range : <=4.0. The reference r mary was not used to int erpret this result as normal/abnormal . [facility] AreaEspsmweNRESPIXZWW3932-24-81 09:43:00 Test Item Value Reference Range Interpretation Comments Basophils (test code = 0.4 See_Comment [Aut omated message] The Basophils) system which ge nerated this result tra nsmitted reference range : <=1.0. The reference r mary was not used to int erpret this result as normal/abnormal . [facility] AreaNufoeqrGPTEKYLWPJ4179-24-82 09:43:00 Test Item Value Reference Range Interpretation Comments Segs-Bands # (test code = Segs-Bands #) 10.1 1.5-8.1 [facility] AreaKjlappbXGQPCTUMKZ2098-84-23 09:43:00 Test Item Value Reference Range Interpretation Comments Basophils # (test code 0.1 See_Comment [Aut omated message] The = Basophils #) system which generated this result tra nsmitted reference range : <=0.2. The reference r mary was not used to int erpret this result as normal/abnormal . [facility] AreaQfcxemhAANMOCVWVS0386-32-52 09:43:00 Test Item Value Reference Range Interpretation Comments Lymphocytes (test code = Lymphocytes) 17.7 20.0-40.0 [facility] AreaQonxlqeOFRTHYLWPS5185-26-68 09:43:00 Test Item Value Reference Range Interpretation Comments Segs (test code = Segs) 71.6 45.0-75.0 [facility] AreaMmqkazbDWBTCYUDYJ9316-91-34 09:43:00 Test Item Value Reference Range Interpretation Comments MPV (test code = MPV) 8.4 7.4-10.4 [facility] AreaHrqclruDZQTLUINXF7972-90-34 09:43:00 Test Item Value Reference Range Interpretation Comments Platelet (test code = Platelet) 211 133-450 [facility] AreaDigsiabZMPOXMJAHD5605-48-47 09:43:00 Test Item Value Reference Range Interpretation Comments WBC (test code = WBC) 14.1 3.7-10.4 [facility] AreaKbnnxuoYHIIIGKNMZ5528-71-13 09:43:00 Test Item Value Reference Range Interpretation Comments RBC (test code = RBC) 4.43 4.70-6.10 [facility] AreaTsqvhnuDKKTEFUHKY8298-24-16 09:43:00 Test Item Value Reference Range Interpretation Comments Hgb (test code = Hgb) 13.3 14.0-18.0 [facility] AreaUzrparaBSDRJLFLGQ1705-05-43 09:43:00 Test Item Value Reference Range Interpretation Comments MCV (test code = MCV) 90.8 80.0-94.0 [facility] AreaPpyrocwHXLYZAWCLY4217-71-25 09:43:00 Test Item Value Reference Range Interpretation Comments MCHC (test code = MCHC) 33.1 32.0-36.0 [facility] AreaFqczoiuJOUDPTRSFQ6337-68-49 09:43:00 Test Item Value Reference Range Interpretation Comments MCH (test code = MCH) 30.0 pg 27.0-31.0 [facility] AreaAoejktmCSNMGGOSRP3299-36-20 09:43:00 Test Item Value Reference Range Interpretation Comments Monocytes # (test code 1.2 See_Comment [Aut omated message] The = Monocytes #) system which generated this result tra nsmitted reference range : <=0.8. The reference r mary was not used to int erpret this result as normal/abnormal . [facility] AreaOxsfnlfXGWXBBADJZ7302-46-10 09:43:00 Test Item Value Reference Range Interpretation Comments RDW (test code = RDW) 14.6 11.5-14.5 [facility] AreaMqiunudMFNBZCLGVF4899-55-47 09:43:00 Test Item Value Reference Range Interpretation Comments Hct (test code = Hct) 40.2 42.0-54.0 [facility] AreaVzuxdaeWSWSJLIAVD8851-63-74 09:43:00 Test Item Value Reference Range Interpretation Comments Eosinophils # (test code 0.2 See_Comment [A utomated message] The = Eosinophils #) system whic h generated this result tra nsmitted reference range : <=0.5. The reference r mary was not used to int erpret this result as normal/abnormal . [facility] AreaTzmskhzSXQDXWEHTF0795-34-08 09:43:00 Test Item Value Reference Range Interpretation Comments Lymphocytes # (test code = Lymphocytes 2.5 1.0-5.5 #) [facility] AreaJfcqlzfQUYJBZGQPT0735-37-85 09:43:00 Test Item Value Reference Range Interpretation Comments Monocytes (test code = Monocytes) 8.7 2.0-12.0 [facility] AreaDyesbhnZYLZGGKFBA2935-10-35 09:43:00 Test Item Value Reference Range Interpretation Comments Eosinophils (test code = 1.6 See_Comment [A utomated message] The Eosinophils) system which ge nerated this result tra nsmitted reference range : <=4.0. The reference r mary was not used to int erpret this result as normal/abnormal . [facility] AreaXpewkiqQBCQCUCYLP4217-67-45 09:43:00 Test Item Value Reference Range Interpretation Comments Basophils (test code = 0.4 See_Comment [Aut omated message] The Basophils) system which ge nerated this result tra nsmitted reference range : <=1.0. The reference r mary was not used to int erpret this result as normal/abnormal . [facility] AreaQiozatzZIJBEGQCMC9157-74-30 09:43:00 Test Item Value Reference Range Interpretation Comments Segs-Bands # (test code = Segs-Bands #) 10.1 1.5-8.1 [facility] AreaCkodofyEOSIVNGKJN3612-81-65 09:43:00 Test Item Value Reference Range Interpretation Comments Lymphocytes (test code = Lymphocytes) 17.7 20.0-40.0 [facility] AreaSsczvecVKPWGTJDUH1107-38-44 09:43:00 Test Item Value Reference Range Interpretation Comments Segs (test code = Segs) 71.6 45.0-75.0 [facility] AreaCbqirekHQOZBBSDXH3883-40-54 09:43:00 Test Item Value Reference Range Interpretation Comments MPV (test code = MPV) 8.4 7.4-10.4 [facility] AreaRsllcnkZITMVBUPJQ6862-57-51 09:43:00 Test Item Value Reference Range Interpretation Comments Platelet (test code = Platelet) 211 133-450 [facility]2017-08-09 09:43:00 Test Item Value Reference Range Interpretation Comments eGFR (test code = eGFR) 53 [facility] AreaSmzhrctGRXNAMOVVT2712-12-44 09:43:00 Test Item Value Reference Range Interpretation Comments WBC (test code = WBC) 14.1 3.7-10.4 [facility]2017-08-09 09:43:00 Test Item Value Reference Range Interpretation Comments Glucose Lvl (test code = Glucose Lvl) 116 70-99 [facility]2017-08-09 09:43:00 Test Item Value Reference Range Interpretation Comments BUN (test code = BUN) 18 7-22 [facility]2017-08-09 09:43:00 Test Item Value Reference Range Interpretation Comments Creatinine Lvl (test code = Creatinine 1.50 0.50-1.40 Lvl) [facility]2017-08-09 09:43:00 Test Item Value Reference Range Interpretation Comments Potassium Lvl (test code = Potassium 3.9 3.5-5.1 Lvl) [facility]2017-08-09 09:43:00 Test Item Value Reference Range Interpretation Comments Sodium Lvl (test code = Sodium Lvl) 137 135-145 [facility]2017-08-09 09:43:00 Test Item Value Reference Range Interpretation Comments Calcium Lvl (test code = Calcium Lvl) 7.9 8.5-10.5 [facility]2017-08-09 09:43:00 Test Item Value Reference Range Interpretation Comments CO2 (test code = CO2) 24 24-32 [facility]2017-08-09 09:43:00 Test Item Value Reference Range Interpretation Comments Chloride Lvl (test code = Chloride Lvl) 104 95-109 [facility]2017-08-09 09:43:00 Test Item Value Reference Range Interpretation Comments AGAP (test code = AGAP) 12.9 10.0-20.0 [facility] AreaZwrjcqkDXRYEWUBCA5691-05-17 09:43:00 Test Item Value Reference Range Interpretation Comments Basophils # (test code 0.1 See_Comment [Aut omated message] The = Basophils #) system which generated this result tra nsmitted reference range : <=0.2. The reference r mary was not used to int erpret this result as normal/abnormal . [facility] AreaMppueliWSQOLGFRMJ1755-15-64 09:43:00 Test Item Value Reference Range Interpretation Comments RBC (test code = RBC) 4.43 4.70-6.10 [facility] AreaSfcouewFNAXVTPUOI3147-49-14 09:43:00 Test Item Value Reference Range Interpretation Comments Monocytes # (test code 1.2 See_Comment [Aut omated message] The = Monocytes #) system which generated this result tra nsmitted reference range : <=0.8. The reference r mary was not used to int erpret this result as normal/abnormal . [facility] AreaUbymodgXETLURSNTJ1553-27-92 09:43:00 Test Item Value Reference Range Interpretation Comments Eosinophils # (test code 0.2 See_Comment [A utomated message] The = Eosinophils #) system whic h generated this result tra nsmitted reference range : <=0.5. The reference r mary was not used to int erpret this result as normal/abnormal . [facility] AreaMiqmtctZGPGBCOPWY0051-04-76 09:43:00 Test Item Value Reference Range Interpretation Comments Lymphocytes # (test code = Lymphocytes 2.5 1.0-5.5 #) [facility] AreaSizutmmMGISMMRMQZ3824-12-95 09:43:00 Test Item Value Reference Range Interpretation Comments Monocytes (test code = Monocytes) 8.7 2.0-12.0 [facility] AreaMmjgoryBTQYTJYBVV1305-20-76 09:43:00 Test Item Value Reference Range Interpretation Comments Eosinophils (test code = 1.6 See_Comment [A utomated message] The Eosinophils) system which ge nerated this result tra nsmitted reference range : <=4.0. The reference r mary was not used to int erpret this result as normal/abnormal . [facility] AreaIuiqjqzCVNGRMVKCX4620-21-65 09:43:00 Test Item Value Reference Range Interpretation Comments Basophils (test code = 0.4 See_Comment [Aut omated message] The Basophils) system which ge nerated this result tra nsmitted reference range : <=1.0. The reference r mary was not used to int erpret this result as normal/abnormal . [facility] AreaFyvvvprFDGBLEKBYE6921-79-20 09:43:00 Test Item Value Reference Range Interpretation Comments Segs-Bands # (test code = Segs-Bands #) 10.1 1.5-8.1 [facility] AreaGjlwdsdVZJCKCWWGH7382-28-54 09:43:00 Test Item Value Reference Range Interpretation Comments Lymphocytes (test code = Lymphocytes) 17.7 20.0-40.0 [facility] AreaHncxepfQBIIWQFONM4800-20-91 09:43:00 Test Item Value Reference Range Interpretation Comments Segs (test code = Segs) 71.6 45.0-75.0 [facility] AreaLkmlknxTUYIANXLZQ6002-57-77 09:43:00 Test Item Value Reference Range Interpretation Comments MPV (test code = MPV) 8.4 7.4-10.4 [facility] AreaFmbnoqeJSPDELZFDE9629-94-05 09:43:00 Test Item Value Reference Range Interpretation Comments Hgb (test code = Hgb) 13.3 14.0-18.0 [facility] AreaHgeiawbLLIPGTAXEQ5437-84-71 09:43:00 Test Item Value Reference Range Interpretation Comments Platelet (test code = Platelet) 211 133-450 [facility] AreaPeintbpZRHEOLRBXQ6464-48-20 09:43:00 Test Item Value Reference Range Interpretation Comments WBC (test code = WBC) 14.1 3.7-10.4 [facility] AreaUrtdoewQIQAWBPMDO4197-63-24 09:43:00 Test Item Value Reference Range Interpretation Comments RBC (test code = RBC) 4.43 4.70-6.10 [facility] AreaJbwcsuwGPLCAURFVS4321-40-70 09:43:00 Test Item Value Reference Range Interpretation Comments Hgb (test code = Hgb) 13.3 14.0-18.0 [facility] AreaTgditcwPXCUILWEFQ3720-73-06 09:43:00 Test Item Value Reference Range Interpretation Comments MCV (test code = MCV) 90.8 80.0-94.0 [facility] AreaNcgdweaGNTXFIDPKJ0170-14-67 09:43:00 Test Item Value Reference Range Interpretation Comments MCHC (test code = MCHC) 33.1 32.0-36.0 [facility] AreaQnugxtmJGYOJBXHKY1876-68-85 09:43:00 Test Item Value Reference Range Interpretation Comments MCH (test code = MCH) 30.0 pg 27.0-31.0 [facility] AreaNrpzktyNAFQPZXVOW4829-28-88 09:43:00 Test Item Value Reference Range Interpretation Comments RDW (test code = RDW) 14.6 11.5-14.5 [facility] AreaIixzvheCSGNCFCSAE4468-74-15 09:43:00 Test Item Value Reference Range Interpretation Comments Hct (test code = Hct) 40.2 42.0-54.0 [facility] AreaXptnvcdECWXWWEWOG1705-85-88 09:43:00 Test Item Value Reference Range Interpretation Comments MCV (test code = MCV) 90.8 80.0-94.0 [facility] AreaPeylrydWXYBGUDRKI1323-51-83 09:43:00 Test Item Value Reference Range Interpretation Comments MCHC (test code = MCHC) 33.1 32.0-36.0 [facility] AreaZhycalbNJSKLUZIEO6183-21-29 09:43:00 Test Item Value Reference Range Interpretation Comments MCH (test code = MCH) 30.0 pg 27.0-31.0 [facility] AreaTakphxdQOFKIOKXHG0046-27-46 09:43:00 Test Item Value Reference Range Interpretation Comments RDW (test code = RDW) 14.6 11.5-14.5 [facility] AreaIandbdkQGINAOSIOP5272-09-38 09:43:00 Test Item Value Reference Range Interpretation Comments Hct (test code = Hct) 40.2 42.0-54.0 [facility]2017-08-09 09:43:00 Test Item Value Reference Range Interpretation Comments eGFR (test code = eGFR) 53 [facility]2017-08-09 09:43:00 Test Item Value Reference Range Interpretation Comments Glucose Lvl (test code = Glucose Lvl) 116 70-99 [facility]2017-08-09 09:43:00 Test Item Value Reference Range Interpretation Comments BUN (test code = BUN) 18 7-22 [facility]2017-08-09 09:43:00 Test Item Value Reference Range Interpretation Comments Creatinine Lvl (test code = Creatinine 1.50 0.50-1.40 Lvl) [facility]2017-08-09 09:43:00 Test Item Value Reference Range Interpretation Comments Potassium Lvl (test code = Potassium 3.9 3.5-5.1 Lvl) [facility]2017-08-09 09:43:00 Test Item Value Reference Range Interpretation Comments Sodium Lvl (test code = Sodium Lvl) 137 135-145 [facility]2017-08-09 09:43:00 Test Item Value Reference Range Interpretation Comments Calcium Lvl (test code = Calcium Lvl) 7.9 8.5-10.5 [facility]2017-08-09 09:43:00 Test Item Value Reference Range Interpretation Comments CO2 (test code = CO2) 24 24-32 [facility]2017-08-09 09:43:00 Test Item Value Reference Range Interpretation Comments Chloride Lvl (test code = Chloride Lvl) 104 95-109 [facility]2017-08-09 09:43:00 Test Item Value Reference Range Interpretation Comments AGAP (test code = AGAP) 12.9 10.0-20.0 [facility] AreaZqmxuhhODAYAKONKM8440-64-79 09:43:00 Test Item Value Reference Range Interpretation Comments Basophils # (test code 0.1 See_Comment [Aut omated message] The = Basophils #) system which generated this result tra nsmitted reference range : <=0.2. The reference r mary was not used to int erpret this result as normal/abnormal . [facility] AreaOeywvnsISPAVMWUWT7680-64-56 09:43:00 Test Item Value Reference Range Interpretation Comments Monocytes # (test code 1.2 See_Comment [Aut omated message] The = Monocytes #) system which generated this result tra nsmitted reference range : <=0.8. The reference r mary was not used to int erpret this result as normal/abnormal . [facility] AreaDdtbrmvWYNHSPPLXQ5550-93-47 09:43:00 Test Item Value Reference Range Interpretation Comments Eosinophils # (test code 0.2 See_Comment [A utomated message] The = Eosinophils #) system whic h generated this result tra nsmitted reference range : <=0.5. The reference r mary was not used to int erpret this result as normal/abnormal . [facility] AreaWjjaeygFGCFYRSAOD5085-91-91 09:43:00 Test Item Value Reference Range Interpretation Comments Lymphocytes # (test code = Lymphocytes 2.5 1.0-5.5 #) [facility] AreaPnbrcikNTULEIZKYC1938-87-31 09:43:00 Test Item Value Reference Range Interpretation Comments Monocytes (test code = Monocytes) 8.7 2.0-12.0 [facility] AreaVdivwhyDXJHMZPODR1467-09-99 09:43:00 Test Item Value Reference Range Interpretation Comments Eosinophils (test code = 1.6 See_Comment [A utomated message] The Eosinophils) system which ge nerated this result tra nsmitted reference range : <=4.0. The reference r mary was not used to int erpret this result as normal/abnormal . [facility] AreaNqkzhbdTXRFCZIRKA5397-96-51 09:43:00 Test Item Value Reference Range Interpretation Comments Basophils (test code = 0.4 See_Comment [Aut omated message] The Basophils) system which ge nerated this result tra nsmitted reference range : <=1.0. The reference r mary was not used to int erpret this result as normal/abnormal . [facility] AreaEvcuuroLDRTJFELLE4527-30-49 09:43:00 Test Item Value Reference Range Interpretation Comments Segs-Bands # (test code = Segs-Bands #) 10.1 1.5-8.1 [facility] AreaSirumpkOXNXKWPAOQ4886-76-71 09:43:00 Test Item Value Reference Range Interpretation Comments Lymphocytes (test code = Lymphocytes) 17.7 20.0-40.0 [facility] AreaPqfiixpGXJTNJPMWN8561-93-28 09:43:00 Test Item Value Reference Range Interpretation Comments Segs (test code = Segs) 71.6 45.0-75.0 [facility] AreaRzbwkwjXLRNKLJEER0229-08-79 09:43:00 Test Item Value Reference Range Interpretation Comments MPV (test code = MPV) 8.4 7.4-10.4 [facility] AreaMbahtbfYHNEXPOOOS2018-68-03 09:43:00 Test Item Value Reference Range Interpretation Comments Platelet (test code = Platelet) 211 133-450 [facility] AreaQxufayeMPIDZTCTQC9287-99-94 09:43:00 Test Item Value Reference Range Interpretation Comments WBC (test code = WBC) 14.1 3.7-10.4 [facility] AreaCxbohziENMJGVIOVI9116-15-86 09:43:00 Test Item Value Reference Range Interpretation Comments RBC (test code = RBC) 4.43 4.70-6.10 [facility] AreaYedyjjdVXJIIOEGVT8621-11-58 09:43:00 Test Item Value Reference Range Interpretation Comments Hgb (test code = Hgb) 13.3 14.0-18.0 [facility] AreaWzhrqmqOHVMNONDDZ6004-81-78 09:43:00 Test Item Value Reference Range Interpretation Comments MCV (test code = MCV) 90.8 80.0-94.0 [facility] AreaMyegdtvFALEHMOMPK6196-29-87 09:43:00 Test Item Value Reference Range Interpretation Comments MCHC (test code = MCHC) 33.1 32.0-36.0 [facility] AreaLppsmvhYYULMRRQCW0432-31-51 09:43:00 Test Item Value Reference Range Interpretation Comments MCH (test code = MCH) 30.0 pg 27.0-31.0 [facility] AreaJfwgdcgWDNIEQECEP8302-06-26 09:43:00 Test Item Value Reference Range Interpretation Comments RDW (test code = RDW) 14.6 11.5-14.5 [facility] AreaKsmmwtdBVDVBESAJS1236-60-63 09:43:00 Test Item Value Reference Range Interpretation Comments Hct (test code = Hct) 40.2 42.0-54.0 [facility]2017-08-09 09:43:00 Test Item Value Reference Range Interpretation Comments eGFR (test code = eGFR) 53 [facility]2017-08-09 09:43:00 Test Item Value Reference Range Interpretation Comments Glucose Lvl (test code = Glucose Lvl) 116 70-99 [facility]2017-08-09 09:43:00 Test Item Value Reference Range Interpretation Comments BUN (test code = BUN) 18 7-22 [facility]2017-08-09 09:43:00 Test Item Value Reference Range Interpretation Comments Creatinine Lvl (test code = Creatinine 1.50 0.50-1.40 Lvl) [facility]2017-08-09 09:43:00 Test Item Value Reference Range Interpretation Comments Potassium Lvl (test code = Potassium 3.9 3.5-5.1 Lvl) [facility]2017-08-09 09:43:00 Test Item Value Reference Range Interpretation Comments Sodium Lvl (test code = Sodium Lvl) 137 135-145 [facility]2017-08-09 09:43:00 Test Item Value Reference Range Interpretation Comments Calcium Lvl (test code = Calcium Lvl) 7.9 8.5-10.5 [facility]2017-08-09 09:43:00 Test Item Value Reference Range Interpretation Comments CO2 (test code = CO2) 24 24-32 [facility]2017-08-09 09:43:00 Test Item Value Reference Range Interpretation Comments Chloride Lvl (test code = Chloride Lvl) 104 95-109 [facility]2017-08-09 09:43:00 Test Item Value Reference Range Interpretation Comments AGAP (test code = AGAP) 12.9 10.0-20.0 [facility] AreaQsfplbjAGNMHOTKAU1340-07-83 09:43:00 Test Item Value Reference Range Interpretation Comments Basophils # (test code 0.1 See_Comment [Aut omated message] The = Basophils #) system which generated this result tra nsmitted reference range : <=0.2. The reference r mary was not used to int erpret this result as normal/abnormal . [facility] AreaGtoqepyBUHPTBWGKT6338-43-08 09:43:00 Test Item Value Reference Range Interpretation Comments Monocytes # (test code 1.2 See_Comment [Aut omated message] The = Monocytes #) system which generated this result tra nsmitted reference range : <=0.8. The reference r mary was not used to int erpret this result as normal/abnormal . [facility] AreaDujmoxgRHCFPOUFHG3169-82-17 09:43:00 Test Item Value Reference Range Interpretation Comments Eosinophils # (test code 0.2 See_Comment [A utomated message] The = Eosinophils #) system whic h generated this result tra nsmitted reference range : <=0.5. The reference r mary was not used to int erpret this result as normal/abnormal . [facility] AreaUfxxtbqAJBXCPKLXV3929-07-25 09:43:00 Test Item Value Reference Range Interpretation Comments Lymphocytes # (test code = Lymphocytes 2.5 1.0-5.5 #) [facility] AreaEkojnobLJIPGEOFQN3588-71-94 09:43:00 Test Item Value Reference Range Interpretation Comments Monocytes (test code = Monocytes) 8.7 2.0-12.0 [facility] AreaJtvkxxhWGMFYZFMFZ7434-93-75 09:43:00 Test Item Value Reference Range Interpretation Comments Eosinophils (test code = 1.6 See_Comment [A utomated message] The Eosinophils) system which ge nerated this result tra nsmitted reference range : <=4.0. The reference r mary was not used to int erpret this result as normal/abnormal . [facility] AreaTpzvvjfXTXWSQAYZY2156-77-43 09:43:00 Test Item Value Reference Range Interpretation Comments Basophils (test code = 0.4 See_Comment [Aut omated message] The Basophils) system which ge nerated this result tra nsmitted reference range : <=1.0. The reference r mary was not used to int erpret this result as normal/abnormal . [facility] AreaXknkvlwYFJQNJWNCM1854-66-78 09:43:00 Test Item Value Reference Range Interpretation Comments Segs-Bands # (test code = Segs-Bands #) 10.1 1.5-8.1 [facility] AreaKzxnxlpCLKDMGGKCV2400-67-25 09:43:00 Test Item Value Reference Range Interpretation Comments Lymphocytes (test code = Lymphocytes) 17.7 20.0-40.0 [facility] AreaQstsscvAHMWNCQKIG7142-19-01 09:43:00 Test Item Value Reference Range Interpretation Comments Segs (test code = Segs) 71.6 45.0-75.0 [facility] AreaErddfzqWFEEFOUTRK8785-82-77 09:43:00 Test Item Value Reference Range Interpretation Comments MPV (test code = MPV) 8.4 7.4-10.4 [facility] AreaWvlijyiUEITNPXBTF1571-08-71 09:43:00 Test Item Value Reference Range Interpretation Comments Platelet (test code = Platelet) 211 133-450 [facility] AreaOjbpfiaIACSLPOBML9301-80-39 09:43:00 Test Item Value Reference Range Interpretation Comments WBC (test code = WBC) 14.1 3.7-10.4 [facility] AreaWrqfouyYXYYSJQLBC7561-15-39 09:43:00 Test Item Value Reference Range Interpretation Comments RBC (test code = RBC) 4.43 4.70-6.10 [facility] AreaAruxkrtXPGSGUOHYW0359-62-61 09:43:00 Test Item Value Reference Range Interpretation Comments Hgb (test code = Hgb) 13.3 14.0-18.0 [facility] AreaNotluiwLYAEXIWRVR6276-83-73 09:43:00 Test Item Value Reference Range Interpretation Comments MCV (test code = MCV) 90.8 80.0-94.0 [facility] AreaZmkxodqGNXGFBOOPS1904-68-80 09:43:00 Test Item Value Reference Range Interpretation Comments MCHC (test code = MCHC) 33.1 32.0-36.0 [facility] AreaTaxyronKIOCFBVVDZ9574-67-51 09:43:00 Test Item Value Reference Range Interpretation Comments MCH (test code = MCH) 30.0 pg 27.0-31.0 [facility] AreaYprbvulERFQRTMOVZ8889-91-51 09:43:00 Test Item Value Reference Range Interpretation Comments RDW (test code = RDW) 14.6 11.5-14.5 [facility] AreaUqofmkwPQGPFQCQAJ0011-95-06 09:43:00 Test Item Value Reference Range Interpretation Comments Hct (test code = Hct) 40.2 42.0-54.0 [facility]2017-08-09 09:43:00 Test Item Value Reference Range Interpretation Comments eGFR (test code = eGFR) 53 [facility]2017-08-09 09:43:00 Test Item Value Reference Range Interpretation Comments Glucose Lvl (test code = Glucose Lvl) 116 70-99 [facility]2017-08-09 09:43:00 Test Item Value Reference Range Interpretation Comments BUN (test code = BUN) 18 7-22 [facility]2017-08-09 09:43:00 Test Item Value Reference Range Interpretation Comments Creatinine Lvl (test code = Creatinine 1.50 0.50-1.40 Lvl) [facility]2017-08-09 09:43:00 Test Item Value Reference Range Interpretation Comments Potassium Lvl (test code = Potassium 3.9 3.5-5.1 Lvl) [facility]2017-08-09 09:43:00 Test Item Value Reference Range Interpretation Comments Sodium Lvl (test code = Sodium Lvl) 137 135-145 [facility]2017-08-09 09:43:00 Test Item Value Reference Range Interpretation Comments Calcium Lvl (test code = Calcium Lvl) 7.9 8.5-10.5 [facility]2017-08-09 09:43:00 Test Item Value Reference Range Interpretation Comments CO2 (test code = CO2) 24 24-32 [facility]2017-08-09 09:43:00 Test Item Value Reference Range Interpretation Comments Chloride Lvl (test code = Chloride Lvl) 104 95-109 [facility]2017-08-09 09:43:00 Test Item Value Reference Range Interpretation Comments AGAP (test code = AGAP) 12.9 10.0-20.0 [facility]JpdsrnfWDUQCFJBHB0478-93-24 09:43:00 Test Item Value Reference Range Interpretation Comments Basophils # (test code 0.1 See_Comment [Aut omated message] The = Basophils #) system which generated this result tra nsmitted reference range : <=0.2. The reference r mary was not used to int erpret this result as normal/abnormal . [facility] AreaKhnbldaJTIKOUNATW5053-82-31 09:43:00 Test Item Value Reference Range Interpretation Comments Monocytes # (test code 1.2 See_Comment [Aut omated message] The = Monocytes #) system which generated this result tra nsmitted reference range : <=0.8. The reference r mary was not used to int erpret this result as normal/abnormal . [facility] AreaStiimhiEOXNHLVZUN5274-04-96 09:43:00 Test Item Value Reference Range Interpretation Comments Eosinophils # (test code 0.2 See_Comment [A utomated message] The = Eosinophils #) system whic h generated this result tra nsmitted reference range : <=0.5. The reference r mary was not used to int erpret this result as normal/abnormal . [facility] AreaErmyibwOMGMESUVGI6187-98-77 09:43:00 Test Item Value Reference Range Interpretation Comments Lymphocytes # (test code = Lymphocytes 2.5 1.0-5.5 #) [facility] AreaKvjkbjeASHNNRDZVW4230-91-97 09:43:00 Test Item Value Reference Range Interpretation Comments Monocytes (test code = Monocytes) 8.7 2.0-12.0 [facility] AreaYlfwxbnENKOJPRAFP8340-91-85 09:43:00 Test Item Value Reference Range Interpretation Comments Eosinophils (test code = 1.6 See_Comment [A utomated message] The Eosinophils) system which ge nerated this result tra nsmitted reference range : <=4.0. The reference r mary was not used to int erpret this result as normal/abnormal . [facility] AreaBxgvigiCZQIHNKDVW2609-54-91 09:43:00 Test Item Value Reference Range Interpretation Comments Basophils (test code = 0.4 See_Comment [Aut omated message] The Basophils) system which ge nerated this result tra nsmitted reference range : <=1.0. The reference r mary was not used to int erpret this result as normal/abnormal . [facility] AreaSrdsfwvZPGAXXKBAS4261-55-65 09:43:00 Test Item Value Reference Range Interpretation Comments Segs-Bands # (test code = Segs-Bands #) 10.1 1.5-8.1 [facility] AreaLfqxzbhMWLMIUTTSY4648-95-02 09:43:00 Test Item Value Reference Range Interpretation Comments Lymphocytes (test code = Lymphocytes) 17.7 20.0-40.0 [facility] AreaYvksfsiGQJQEYKHCF8601-79-71 09:43:00 Test Item Value Reference Range Interpretation Comments Segs (test code = Segs) 71.6 45.0-75.0 [facility] AreaFyoqdvyAJWILNONZI0567-51-69 09:43:00 Test Item Value Reference Range Interpretation Comments MPV (test code = MPV) 8.4 7.4-10.4 [facility] AreaDlfoiyjATBYLCHQHS6735-01-08 09:43:00 Test Item Value Reference Range Interpretation Comments Platelet (test code = Platelet) 211 133-450 [facility] AreaExqqpqgRPKSPMWYZD8827-81-86 09:43:00 Test Item Value Reference Range Interpretation Comments WBC (test code = WBC) 14.1 3.7-10.4 [facility] AreaReumxdyLSSNRGBGZH4233-81-10 09:43:00 Test Item Value Reference Range Interpretation Comments RBC (test code = RBC) 4.43 4.70-6.10 [facility] AreaAziqxkhRHUIHWYHTG9396-14-79 09:43:00 Test Item Value Reference Range Interpretation Comments Hgb (test code = Hgb) 13.3 14.0-18.0 [facility] AreaZmbwdzhKOJDRTWLLQ9352-95-11 09:43:00 Test Item Value Reference Range Interpretation Comments MCV (test code = MCV) 90.8 80.0-94.0 [facility] AreaErnpphiMZPGBKKRBB2277-28-96 09:43:00 Test Item Value Reference Range Interpretation Comments MCHC (test code = MCHC) 33.1 32.0-36.0 [facility] AreaZbtmplgSAACVGIOBT9793-88-99 09:43:00 Test Item Value Reference Range Interpretation Comments MCH (test code = MCH) 30.0 pg 27.0-31.0 [facility] AreaWxpjrfnKWGXQBJBNJ2097-18-10 09:43:00 Test Item Value Reference Range Interpretation Comments RDW (test code = RDW) 14.6 11.5-14.5 [facility] AreaTxsmqoiAPJTUCWYUD3548-60-40 09:43:00 Test Item Value Reference Range Interpretation Comments Hct (test code = Hct) 40.2 42.0-54.0 [facility]2017-08-09 09:43:00 Test Item Value Reference Range Interpretation Comments eGFR (test code = eGFR) 53 [facility]2017-08-09 09:43:00 Test Item Value Reference Range Interpretation Comments Glucose Lvl (test code = Glucose Lvl) 116 70-99 [facility]2017-08-09 09:43:00 Test Item Value Reference Range Interpretation Comments BUN (test code = BUN) 18 7-22 [facility]2017-08-09 09:43:00 Test Item Value Reference Range Interpretation Comments Creatinine Lvl (test code = Creatinine 1.50 0.50-1.40 Lvl) [facility]2017-08-09 09:43:00 Test Item Value Reference Range Interpretation Comments Potassium Lvl (test code = Potassium 3.9 3.5-5.1 Lvl) [facility]2017-08-09 09:43:00 Test Item Value Reference Range Interpretation Comments Sodium Lvl (test code = Sodium Lvl) 137 135-145 [facility]2017-08-09 09:43:00 Test Item Value Reference Range Interpretation Comments Calcium Lvl (test code = Calcium Lvl) 7.9 8.5-10.5 [facility]2017-08-09 09:43:00 Test Item Value Reference Range Interpretation Comments CO2 (test code = CO2) 24 24-32 [facility]2017-08-09 09:43:00 Test Item Value Reference Range Interpretation Comments Chloride Lvl (test code = Chloride Lvl) 104 95-109 [facility]2017-08-09 09:43:00 Test Item Value Reference Range Interpretation Comments AGAP (test code = AGAP) 12.9 10.0-20.0 [facility] AreaDtjrjxoQMNYWFPKZP4864-36-67 09:43:00 Test Item Value Reference Range Interpretation Comments Basophils # (test code 0.1 See_Comment [Aut omated message] The = Basophils #) system which generated this result tra nsmitted reference range : <=0.2. The reference r mary was not used to int erpret this result as normal/abnormal . [facility] AreaOqcoxtqRCHXYDCATN6900-01-91 09:43:00 Test Item Value Reference Range Interpretation Comments Monocytes # (test code 1.2 See_Comment [Aut omated message] The = Monocytes #) system which generated this result tra nsmitted reference range : <=0.8. The reference r mary was not used to int erpret this result as normal/abnormal . [facility] AreaValgixcMFWQWUIMFN2103-40-52 09:43:00 Test Item Value Reference Range Interpretation Comments Eosinophils # (test code 0.2 See_Comment [A utomated message] The = Eosinophils #) system whic h generated this result tra nsmitted reference range : <=0.5. The reference r mary was not used to int erpret this result as normal/abnormal . [facility] AreaUfralhwQNXMYTOECW2918-32-99 09:43:00 Test Item Value Reference Range Interpretation Comments Lymphocytes # (test code = Lymphocytes 2.5 1.0-5.5 #) [facility] AreaNvbadeiCKBHSCTWHP2546-63-00 09:43:00 Test Item Value Reference Range Interpretation Comments Monocytes (test code = Monocytes) 8.7 2.0-12.0 [facility] AreaYarfagqOHPAMJIJIY5606-96-16 09:43:00 Test Item Value Reference Range Interpretation Comments Eosinophils (test code = 1.6 See_Comment [A utomated message] The Eosinophils) system which ge nerated this result tra nsmitted reference range : <=4.0. The reference r mary was not used to int erpret this result as normal/abnormal . [facility] AreaTclrherMBTCQQSWRA4031-17-25 09:43:00 Test Item Value Reference Range Interpretation Comments Basophils (test code = 0.4 See_Comment [Aut omated message] The Basophils) system which ge nerated this result tra nsmitted reference range : <=1.0. The reference r mary was not used to int erpret this result as normal/abnormal . [facility] AreaElbkbvhYGMODDCKAY8915-42-08 09:43:00 Test Item Value Reference Range Interpretation Comments Segs-Bands # (test code = Segs-Bands #) 10.1 1.5-8.1 [facility] AreaDmbbqfmXHHMUEIBNW4676-77-67 09:43:00 Test Item Value Reference Range Interpretation Comments Lymphocytes (test code = Lymphocytes) 17.7 20.0-40.0 [facility] AreaTwucbuyAZAZTOTGTE5443-41-15 09:43:00 Test Item Value Reference Range Interpretation Comments Segs (test code = Segs) 71.6 45.0-75.0 [facility] AreaOwvdwfaOMHEAILJOK7098-85-53 09:43:00 Test Item Value Reference Range Interpretation Comments MPV (test code = MPV) 8.4 7.4-10.4 [facility] AreaGxrgeqzXMKPXYRFYW4887-63-45 09:43:00 Test Item Value Reference Range Interpretation Comments Platelet (test code = Platelet) 211 133-450 [facility] AreaLzbmxsfLQCOBFXQFB9198-26-03 09:43:00 Test Item Value Reference Range Interpretation Comments WBC (test code = WBC) 14.1 3.7-10.4 [facility] AreaSnsmjixWUDRZIZWCY4511-74-47 09:43:00 Test Item Value Reference Range Interpretation Comments RBC (test code = RBC) 4.43 4.70-6.10 [facility] AreaYvnayajAXPBGANVCO9618-98-89 09:43:00 Test Item Value Reference Range Interpretation Comments Hgb (test code = Hgb) 13.3 14.0-18.0 [facility] AreaIwuabtpZTQEQBTYKC6382-16-12 09:43:00 Test Item Value Reference Range Interpretation Comments MCV (test code = MCV) 90.8 80.0-94.0 [facility] AreaGyuqxzxGPNRWDCANQ0016-97-60 09:43:00 Test Item Value Reference Range Interpretation Comments MCHC (test code = MCHC) 33.1 32.0-36.0 [facility] AreaNdxnobmUHRINFEXJM8779-11-31 09:43:00 Test Item Value Reference Range Interpretation Comments MCH (test code = MCH) 30.0 pg 27.0-31.0 [facility] AreaRnrknoyMGZENHGUYA8998-98-82 09:43:00 Test Item Value Reference Range Interpretation Comments RDW (test code = RDW) 14.6 11.5-14.5 [facility] AreaMfibhwuYVPBPZTYYO8868-37-77 09:43:00 Test Item Value Reference Range Interpretation Comments Hct (test code = Hct) 40.2 42.0-54.0 [facility]2017-08-09 09:43:00 Test Item Value Reference Range Interpretation Comments eGFR (test code = eGFR) 53 [facility]2017-08-09 09:43:00 Test Item Value Reference Range Interpretation Comments Glucose Lvl (test code = Glucose Lvl) 116 70-99 [facility]2017-08-09 09:43:00 Test Item Value Reference Range Interpretation Comments BUN (test code = BUN) 18 7-22 [facility]2017-08-09 09:43:00 Test Item Value Reference Range Interpretation Comments Creatinine Lvl (test code = Creatinine 1.50 0.50-1.40 Lvl) [facility]2017-08-09 09:43:00 Test Item Value Reference Range Interpretation Comments Potassium Lvl (test code = Potassium 3.9 3.5-5.1 Lvl) [facility]2017-08-09 09:43:00 Test Item Value Reference Range Interpretation Comments Sodium Lvl (test code = Sodium Lvl) 137 135-145 [facility]2017-08-09 09:43:00 Test Item Value Reference Range Interpretation Comments Calcium Lvl (test code = Calcium Lvl) 7.9 8.5-10.5 [facility]2017-08-09 09:43:00 Test Item Value Reference Range Interpretation Comments CO2 (test code = CO2) 24 24-32 [facility]2017-08-09 09:43:00 Test Item Value Reference Range Interpretation Comments Chloride Lvl (test code = Chloride Lvl) 104 95-109 [facility]2017-08-09 09:43:00 Test Item Value Reference Range Interpretation Comments AGAP (test code = AGAP) 12.9 10.0-20.0 [facility] AreaAdjgizoDKNPFBYUFD9407-91-91 09:43:00 Test Item Value Reference Range Interpretation Comments Basophils # (test code 0.1 See_Comment [Aut omated message] The = Basophils #) system which generated this result tra nsmitted reference range : <=0.2. The reference r mary was not used to int erpret this result as normal/abnormal . [facility] AreaSsyrclwALXLJUCPGF8854-22-15 09:43:00 Test Item Value Reference Range Interpretation Comments Monocytes # (test code 1.2 See_Comment [Aut omated message] The = Monocytes #) system which generated this result tra nsmitted reference range : <=0.8. The reference r mary was not used to int erpret this result as normal/abnormal . [facility] AreaTlynibaZMJUXWJBOO9004-19-12 09:43:00 Test Item Value Reference Range Interpretation Comments Eosinophils # (test code 0.2 See_Comment [A utomated message] The = Eosinophils #) system whic h generated this result tra nsmitted reference range : <=0.5. The reference r mary was not used to int erpret this result as normal/abnormal . [facility] AreaMrpjjjhLEFKZKDCQX8134-93-00 09:43:00 Test Item Value Reference Range Interpretation Comments Lymphocytes # (test code = Lymphocytes 2.5 1.0-5.5 #) [facility] AreaXjpyjugUWZOOVZJVS5026-51-43 09:43:00 Test Item Value Reference Range Interpretation Comments Monocytes (test code = Monocytes) 8.7 2.0-12.0 [facility] AreaZgyezvbFKDFMBQMLB7785-08-04 09:43:00 Test Item Value Reference Range Interpretation Comments Eosinophils (test code = 1.6 See_Comment [A utomated message] The Eosinophils) system which ge nerated this result tra nsmitted reference range : <=4.0. The reference r mary was not used to int erpret this result as normal/abnormal . [facility] AreaVwvmwvsNSVPPFATMI8446-94-55 09:43:00 Test Item Value Reference Range Interpretation Comments Basophils (test code = 0.4 See_Comment [Aut omated message] The Basophils) system which ge nerated this result tra nsmitted reference range : <=1.0. The reference r mary was not used to int erpret this result as normal/abnormal . [facility] AreaFdphgciABJOLSFRRJ7038-89-74 09:43:00 Test Item Value Reference Range Interpretation Comments Segs-Bands # (test code = Segs-Bands #) 10.1 1.5-8.1 [facility] AreaXbudlmdOKMWQDFYDC0404-35-56 09:43:00 Test Item Value Reference Range Interpretation Comments Lymphocytes (test code = Lymphocytes) 17.7 20.0-40.0 [facility] AreaGubdkueTVFWDBQZYT5949-17-79 09:43:00 Test Item Value Reference Range Interpretation Comments Segs (test code = Segs) 71.6 45.0-75.0 [facility] AreaRtmeskvTAYRXXWYJF7354-04-93 09:43:00 Test Item Value Reference Range Interpretation Comments MPV (test code = MPV) 8.4 7.4-10.4 [facility] AreaOlmahldKJPKXSGODU2840-38-62 09:43:00 Test Item Value Reference Range Interpretation Comments Platelet (test code = Platelet) 211 133-450 [facility] AreaQulmaacOYYTUHULXL9277-59-94 09:43:00 Test Item Value Reference Range Interpretation Comments WBC (test code = WBC) 14.1 3.7-10.4 [facility] AreaYitihpsDJHMSUMGMS8443-21-67 09:43:00 Test Item Value Reference Range Interpretation Comments RBC (test code = RBC) 4.43 4.70-6.10 [facility] AreaLluxxcaYTXKJHFLYC4634-62-22 09:43:00 Test Item Value Reference Range Interpretation Comments Hgb (test code = Hgb) 13.3 14.0-18.0 [facility] AreaXcywqaoADGYLMRYAR2612-99-03 09:43:00 Test Item Value Reference Range Interpretation Comments MCV (test code = MCV) 90.8 80.0-94.0 [facility] AreaFdkujcqOMCAJVCXAW4406-24-37 09:43:00 Test Item Value Reference Range Interpretation Comments MCHC (test code = MCHC) 33.1 32.0-36.0 [facility] AreaDfqpjywVAWAEVKIZD0010-24-69 09:43:00 Test Item Value Reference Range Interpretation Comments MCH (test code = MCH) 30.0 pg 27.0-31.0 [facility] AreaMyngznoUNAWDRSIRA1879-12-64 09:43:00 Test Item Value Reference Range Interpretation Comments RDW (test code = RDW) 14.6 11.5-14.5 [facility] AreaQuvqfuoONPGYPHSZI8612-81-94 09:43:00 Test Item Value Reference Range Interpretation Comments Hct (test code = Hct) 40.2 42.0-54.0 [facility]2017-08-09 09:43:00 Test Item Value Reference Range Interpretation Comments eGFR (test code = eGFR) 53 [facility]2017-08-09 09:43:00 Test Item Value Reference Range Interpretation Comments Glucose Lvl (test code = Glucose Lvl) 116 70-99 [facility]2017-08-09 09:43:00 Test Item Value Reference Range Interpretation Comments BUN (test code = BUN) 18 7-22 [facility]2017-08-09 09:43:00 Test Item Value Reference Range Interpretation Comments Creatinine Lvl (test code = Creatinine 1.50 0.50-1.40 Lvl) [facility]2017-08-09 09:43:00 Test Item Value Reference Range Interpretation Comments Potassium Lvl (test code = Potassium 3.9 3.5-5.1 Lvl) [facility]2017-08-09 09:43:00 Test Item Value Reference Range Interpretation Comments Sodium Lvl (test code = Sodium Lvl) 137 135-145 [facility]2017-08-09 09:43:00 Test Item Value Reference Range Interpretation Comments Calcium Lvl (test code = Calcium Lvl) 7.9 8.5-10.5 [facility]2017-08-09 09:43:00 Test Item Value Reference Range Interpretation Comments CO2 (test code = CO2) 24 24-32 [facility]2017-08-09 09:43:00 Test Item Value Reference Range Interpretation Comments Chloride Lvl (test code = Chloride Lvl) 104 95-109 [facility]2017-08-09 09:43:00 Test Item Value Reference Range Interpretation Comments AGAP (test code = AGAP) 12.9 10.0-20.0 [facility] AreaMlzqzwoYHAMKFFLTB8634-42-04 09:43:00 Test Item Value Reference Range Interpretation Comments Basophils # (test code 0.1 See_Comment [Aut omated message] The = Basophils #) system which generated this result tra nsmitted reference range : <=0.2. The reference r mary was not used to int erpret this result as normal/abnormal . [facility] AreaVxzxcclDTOYLLSOGI0818-27-97 09:43:00 Test Item Value Reference Range Interpretation Comments Monocytes # (test code 1.2 See_Comment [Aut omated message] The = Monocytes #) system which generated this result tra nsmitted reference range : <=0.8. The reference r mary was not used to int erpret this result as normal/abnormal . [facility] AreaEjpeoqzMESHEMLLXQ3947-49-11 09:43:00 Test Item Value Reference Range Interpretation Comments Eosinophils # (test code 0.2 See_Comment [A utomated message] The = Eosinophils #) system whic h generated this result tra nsmitted reference range : <=0.5. The reference r mary was not used to int erpret this result as normal/abnormal . [facility] AreaNhjyngeXGTDCMXOEA2094-65-73 09:43:00 Test Item Value Reference Range Interpretation Comments Lymphocytes # (test code = Lymphocytes 2.5 1.0-5.5 #) [facility] AreaKorihubPVTXDCAWXF6127-15-77 09:43:00 Test Item Value Reference Range Interpretation Comments Monocytes (test code = Monocytes) 8.7 2.0-12.0 [facility] AreaLigopcpEZJBLHOFLT7629-59-45 09:43:00 Test Item Value Reference Range Interpretation Comments Eosinophils (test code = 1.6 See_Comment [A utomated message] The Eosinophils) system which ge nerated this result tra nsmitted reference range : <=4.0. The reference r mary was not used to int erpret this result as normal/abnormal . [facility] AreaInvcfdrSYKTCNKYDV2895-10-64 09:43:00 Test Item Value Reference Range Interpretation Comments Basophils (test code = 0.4 See_Comment [Aut omated message] The Basophils) system which ge nerated this result tra nsmitted reference range : <=1.0. The reference r mary was not used to int erpret this result as normal/abnormal . [facility] AreaMyuqtpaYLTHUJOGVZ8057-27-83 09:43:00 Test Item Value Reference Range Interpretation Comments Segs-Bands # (test code = Segs-Bands #) 10.1 1.5-8.1 [facility] AreaVkllscpBFXIVPSPKX5559-82-84 09:43:00 Test Item Value Reference Range Interpretation Comments Lymphocytes (test code = Lymphocytes) 17.7 20.0-40.0 [facility] AreaJedfnngNRLXHGIEFL5189-24-50 09:43:00 Test Item Value Reference Range Interpretation Comments Segs (test code = Segs) 71.6 45.0-75.0 [facility] AreaCyxpyymCGUZTZJLHF5068-60-60 09:43:00 Test Item Value Reference Range Interpretation Comments MPV (test code = MPV) 8.4 7.4-10.4 [facility] AreaWkzxnteJACXWKUYHV9002-55-56 09:43:00 Test Item Value Reference Range Interpretation Comments Platelet (test code = Platelet) 211 133-450 [facility] AreaKezokajEZJRXOGOZH0040-48-32 09:43:00 Test Item Value Reference Range Interpretation Comments WBC (test code = WBC) 14.1 3.7-10.4 [facility] AreaImselbhOYJQOIUPGZ3846-47-60 09:43:00 Test Item Value Reference Range Interpretation Comments RBC (test code = RBC) 4.43 4.70-6.10 [facility] AreaVforvjlINVEDAOPDR2382-62-08 09:43:00 Test Item Value Reference Range Interpretation Comments Hgb (test code = Hgb) 13.3 14.0-18.0 [facility] AreaXmfxphpMKFBDBPNVC0660-77-64 09:43:00 Test Item Value Reference Range Interpretation Comments MCV (test code = MCV) 90.8 80.0-94.0 [facility] AreaMlxkhiyHRBEXZIWVD9799-89-92 09:43:00 Test Item Value Reference Range Interpretation Comments MCHC (test code = MCHC) 33.1 32.0-36.0 [facility] AreaWpvrzvyVDTCOENJHM2046-61-39 09:43:00 Test Item Value Reference Range Interpretation Comments MCH (test code = MCH) 30.0 pg 27.0-31.0 [facility] AreaCqgmdpnQQRMRQRVLD5857-37-12 09:43:00 Test Item Value Reference Range Interpretation Comments RDW (test code = RDW) 14.6 11.5-14.5 [facility] AreaJrgoccjGIZVJPPVPY0592-39-46 09:43:00 Test Item Value Reference Range Interpretation Comments Hct (test code = Hct) 40.2 42.0-54.0 [facility]2017-08-09 09:43:00 Test Item Value Reference Range Interpretation Comments eGFR (test code = eGFR) 53 [facility]2017-08-09 09:43:00 Test Item Value Reference Range Interpretation Comments Glucose Lvl (test code = Glucose Lvl) 116 70-99 [facility]2017-08-09 09:43:00 Test Item Value Reference Range Interpretation Comments BUN (test code = BUN) 18 7-22 [facility]2017-08-09 09:43:00 Test Item Value Reference Range Interpretation Comments Creatinine Lvl (test code = Creatinine 1.50 0.50-1.40 Lvl) [facility]2017-08-09 09:43:00 Test Item Value Reference Range Interpretation Comments Potassium Lvl (test code = Potassium 3.9 3.5-5.1 Lvl) [facility]2017-08-09 09:43:00 Test Item Value Reference Range Interpretation Comments Sodium Lvl (test code = Sodium Lvl) 137 135-145 [facility]2017-08-09 09:43:00 Test Item Value Reference Range Interpretation Comments Calcium Lvl (test code = Calcium Lvl) 7.9 8.5-10.5 [facility]2017-08-09 09:43:00 Test Item Value Reference Range Interpretation Comments CO2 (test code = CO2) 24 24-32 [facility]2017-08-09 09:43:00 Test Item Value Reference Range Interpretation Comments Chloride Lvl (test code = Chloride Lvl) 104 95-109 [facility]2017-08-09 09:43:00 Test Item Value Reference Range Interpretation Comments AGAP (test code = AGAP) 12.9 10.0-20.0 [facility]XlavyatNMGUMSCLZY9513-34-41 09:43:00 Test Item Value Reference Range Interpretation Comments Basophils # (test code 0.1 See_Comment [Aut omated message] The = Basophils #) system which generated this result tra nsmitted reference range : <=0.2. The reference r mary was not used to int erpret this result as normal/abnormal . [place] 202097-08-09 09:43:00 Test Item Value Reference Range Interpretation Comments Monocytes # (test code 1.2 See_Comment [Aut omated message] The = Monocytes #) system which generated this result tra nsmitted reference range : <=0.8. The reference r mayr was not used to int erpret this result as normal/abnormal . [facility] AreaCjvzbnyRWBBUDMWSH7066-39-68 09:43:00 Test Item Value Reference Range Interpretation Comments Eosinophils # (test code 0.2 See_Comment [A utomated message] The = Eosinophils #) system whic h generated this result tra nsmitted reference range : <=0.5. The reference r mary was not used to int erpret this result as normal/abnormal . [facility] AreaJqlxvkuIWUEXILEMO7926-02-34 09:43:00 Test Item Value Reference Range Interpretation Comments Lymphocytes # (test code = Lymphocytes 2.5 1.0-5.5 #) [facility] AreaXyrekawELZCTTZIBD0044-58-72 09:43:00 Test Item Value Reference Range Interpretation Comments Monocytes (test code = Monocytes) 8.7 2.0-12.0 [facility] AreaTvxkjfsUVSSYBLQKW4618-42-07 09:43:00 Test Item Value Reference Range Interpretation Comments Eosinophils (test code = 1.6 See_Comment [A utomated message] The Eosinophils) system which ge nerated this result tra nsmitted reference range : <=4.0. The reference r mary was not used to int erpret this result as normal/abnormal . [facility] AreaOgodyzgCDSTBIDALC2318-78-85 09:43:00 Test Item Value Reference Range Interpretation Comments Basophils (test code = 0.4 See_Comment [Aut omated message] The Basophils) system which ge nerated this result tra nsmitted reference range : <=1.0. The reference r mary was not used to int erpret this result as normal/abnormal . [facility] AreaJoccayjOBMIOYOXUA6787-75-59 09:43:00 Test Item Value Reference Range Interpretation Comments Segs-Bands # (test code = Segs-Bands #) 10.1 1.5-8.1 [facility] AreaEqlacjzIJDMDPSYEL7829-81-40 09:43:00 Test Item Value Reference Range Interpretation Comments Lymphocytes (test code = Lymphocytes) 17.7 20.0-40.0 [facility] AreaFwmtdgiEKLTFEYZTR3324-39-05 09:43:00 Test Item Value Reference Range Interpretation Comments Segs (test code = Segs) 71.6 45.0-75.0 [facility] AreaSyorwikNBCBFKJRXI3383-43-80 09:43:00 Test Item Value Reference Range Interpretation Comments MPV (test code = MPV) 8.4 7.4-10.4 [facility] AreaKvqrrgwABRSAKZNBA6974-84-00 09:43:00 Test Item Value Reference Range Interpretation Comments Platelet (test code = Platelet) 211 133-450 [facility] AreaLixqijzSAZCILGWHD2014-11-09 09:43:00 Test Item Value Reference Range Interpretation Comments WBC (test code = WBC) 14.1 3.7-10.4 [facility] AreaAilszuyVDOFMEMNGX6961-19-23 09:43:00 Test Item Value Reference Range Interpretation Comments RBC (test code = RBC) 4.43 4.70-6.10 [facility] AreaFstcebyKLJAGNNVKJ4550-19-68 09:43:00 Test Item Value Reference Range Interpretation Comments Hgb (test code = Hgb) 13.3 14.0-18.0 [facility] AreaZujpzxfGKJYIGGIOG9961-51-39 09:43:00 Test Item Value Reference Range Interpretation Comments MCV (test code = MCV) 90.8 80.0-94.0 [facility] AreaOxrdmlzMAQNKFFLZT2671-09-90 09:43:00 Test Item Value Reference Range Interpretation Comments MCHC (test code = MCHC) 33.1 32.0-36.0 [facility] AreaXrjsmafBGFTIKYMMJ3849-32-56 09:43:00 Test Item Value Reference Range Interpretation Comments MCH (test code = MCH) 30.0 pg 27.0-31.0 [facility] AreaXstlbmdDKLSTGQJNJ0044-13-54 09:43:00 Test Item Value Reference Range Interpretation Comments RDW (test code = RDW) 14.6 11.5-14.5 [facility] AreaPbelzseKCNECERJNA7123-47-61 09:43:00 Test Item Value Reference Range Interpretation Comments Hct (test code = Hct) 40.2 42.0-54.0 [facility]2017-08-09 09:43:00 Test Item Value Reference Range Interpretation Comments eGFR (test code = eGFR) 53 [facility]2017-08-09 09:43:00 Test Item Value Reference Range Interpretation Comments Glucose Lvl (test code = Glucose Lvl) 116 70-99 [facility]2017-08-09 09:43:00 Test Item Value Reference Range Interpretation Comments BUN (test code = BUN) 18 7-22 [facility]2017-08-09 09:43:00 Test Item Value Reference Range Interpretation Comments Creatinine Lvl (test code = Creatinine 1.50 0.50-1.40 Lvl) [facility]2017-08-09 09:43:00 Test Item Value Reference Range Interpretation Comments Potassium Lvl (test code = Potassium 3.9 3.5-5.1 Lvl) [facility]2017-08-09 09:43:00 Test Item Value Reference Range Interpretation Comments Sodium Lvl (test code = Sodium Lvl) 137 135-145 [facility]2017-08-09 09:43:00 Test Item Value Reference Range Interpretation Comments Calcium Lvl (test code = Calcium Lvl) 7.9 8.5-10.5 [facility]2017-08-09 09:43:00 Test Item Value Reference Range Interpretation Comments CO2 (test code = CO2) 24 24-32 [facility]2017-08-09 09:43:00 Test Item Value Reference Range Interpretation Comments Chloride Lvl (test code = Chloride Lvl) 104 95-109 [facility]2017-08-09 09:43:00 Test Item Value Reference Range Interpretation Comments AGAP (test code = AGAP) 12.9 10.0-20.0 [facility] AreaDgeoxgwWFPTGWXWKM1339-78-06 09:43:00 Test Item Value Reference Range Interpretation Comments Basophils # (test code 0.1 See_Comment [Aut omated message] The = Basophils #) system which generated this result tra nsmitted reference range : <=0.2. The reference r mary was not used to int erpret this result as normal/abnormal . [facility] AreaOzjcmtnTXFINZCTDG2718-39-74 09:43:00 Test Item Value Reference Range Interpretation Comments Monocytes # (test code 1.2 See_Comment [Aut omated message] The = Monocytes #) system which generated this result tra nsmitted reference range : <=0.8. The reference r mary was not used to int erpret this result as normal/abnormal . [facility] AreaUlarbbkKATJZGCPLF2912-19-79 09:43:00 Test Item Value Reference Range Interpretation Comments Eosinophils # (test code 0.2 See_Comment [A utomated message] The = Eosinophils #) system whic h generated this result tra nsmitted reference range : <=0.5. The reference r mary was not used to int erpret this result as normal/abnormal . [facility] AreaEikmydmPFIBXQLXUT3169-34-57 09:43:00 Test Item Value Reference Range Interpretation Comments Lymphocytes # (test code = Lymphocytes 2.5 1.0-5.5 #) [facility] AreaJsewqphDIRBSKIFAF5781-30-91 09:43:00 Test Item Value Reference Range Interpretation Comments Monocytes (test code = Monocytes) 8.7 2.0-12.0 [facility] AreaUwxtjvjCZGGACDJNL0017-37-73 09:43:00 Test Item Value Reference Range Interpretation Comments Eosinophils (test code = 1.6 See_Comment [A utomated message] The Eosinophils) system which ge nerated this result tra nsmitted reference range : <=4.0. The reference r mary was not used to int erpret this result as normal/abnormal . [facility] AreaYxozlpjHXCXMYWGRA0338-00-47 09:43:00 Test Item Value Reference Range Interpretation Comments Basophils (test code = 0.4 See_Comment [Aut omated message] The Basophils) system which ge nerated this result tra nsmitted reference range : <=1.0. The reference r mary was not used to int erpret this result as normal/abnormal . [facility] AreaVixpyvkFMGKAADVSR8226-84-27 09:43:00 Test Item Value Reference Range Interpretation Comments Segs-Bands # (test code = Segs-Bands #) 10.1 1.5-8.1 [facility] AreaAekbilxEQCHWZGQLU1827-27-32 09:43:00 Test Item Value Reference Range Interpretation Comments Lymphocytes (test code = Lymphocytes) 17.7 20.0-40.0 [facility] AreaPahntnkWXOMUWSTTO1246-38-38 09:43:00 Test Item Value Reference Range Interpretation Comments Segs (test code = Segs) 71.6 45.0-75.0 [facility] AreaKfkiepmDXFROOIYVR7299-34-33 09:43:00 Test Item Value Reference Range Interpretation Comments MPV (test code = MPV) 8.4 7.4-10.4 [facility] AreaGzgqjixTIFOZVVFKL4494-58-07 09:43:00 Test Item Value Reference Range Interpretation Comments Platelet (test code = Platelet) 211 133-450 [facility] AreaEociyynLQEUZQEWYF4059-50-10 09:43:00 Test Item Value Reference Range Interpretation Comments WBC (test code = WBC) 14.1 3.7-10.4 [facility] AreaQmnocrgHWDYEDDHST8775-08-84 09:43:00 Test Item Value Reference Range Interpretation Comments RBC (test code = RBC) 4.43 4.70-6.10 [facility] AreaKehkvbcWUCNBIWCSS4603-02-97 09:43:00 Test Item Value Reference Range Interpretation Comments Hgb (test code = Hgb) 13.3 14.0-18.0 [facility] AreaKarwhoyHDAFFRMKQN7984-60-63 09:43:00 Test Item Value Reference Range Interpretation Comments MCV (test code = MCV) 90.8 80.0-94.0 [facility] AreaQcjwbpsPJRSJIJTXT0184-90-03 09:43:00 Test Item Value Reference Range Interpretation Comments MCHC (test code = MCHC) 33.1 32.0-36.0 [facility] AreaBgkfitqGCRJTOLTIT3628-13-22 09:43:00 Test Item Value Reference Range Interpretation Comments MCH (test code = MCH) 30.0 pg 27.0-31.0 [facility] AreaLggikkzOYMOPQTZVO8389-31-11 09:43:00 Test Item Value Reference Range Interpretation Comments RDW (test code = RDW) 14.6 11.5-14.5 [facility] AreaUmlltrmGUUNTDDWBP1229-16-30 09:43:00 Test Item Value Reference Range Interpretation Comments Hct (test code = Hct) 40.2 42.0-54.0 [facility]2017-08-09 09:43:00 Test Item Value Reference Range Interpretation Comments eGFR (test code = eGFR) 53 [facility]2017-08-09 09:43:00 Test Item Value Reference Range Interpretation Comments Glucose Lvl (test code = Glucose Lvl) 116 70-99 [facility]2017-08-09 09:43:00 Test Item Value Reference Range Interpretation Comments BUN (test code = BUN) 18 7-22 [facility]2017-08-09 09:43:00 Test Item Value Reference Range Interpretation Comments Creatinine Lvl (test code = Creatinine 1.50 0.50-1.40 Lvl) [facility]2017-08-09 09:43:00 Test Item Value Reference Range Interpretation Comments Potassium Lvl (test code = Potassium 3.9 3.5-5.1 Lvl) [facility]2017-08-09 09:43:00 Test Item Value Reference Range Interpretation Comments Sodium Lvl (test code = Sodium Lvl) 137 135-145 [facility]2017-08-09 09:43:00 Test Item Value Reference Range Interpretation Comments Calcium Lvl (test code = Calcium Lvl) 7.9 8.5-10.5 [facility]2017-08-09 09:43:00 Test Item Value Reference Range Interpretation Comments CO2 (test code = CO2) 24 24-32 [facility]2017-08-09 09:43:00 Test Item Value Reference Range Interpretation Comments Chloride Lvl (test code = Chloride Lvl) 104 95-109 [facility]2017-08-09 09:43:00 Test Item Value Reference Range Interpretation Comments AGAP (test code = AGAP) 12.9 10.0-20.0 [facility] AreaJphrmnpUFQAVTLCKR1115-14-54 09:43:00 Test Item Value Reference Range Interpretation Comments Basophils # (test code 0.1 See_Comment [Aut omated message] The = Basophils #) system which generated this result tra nsmitted reference range : <=0.2. The reference r mary was not used to int erpret this result as normal/abnormal . [facility]2017-08-09 09:43:00 Test Item Value Reference Range Interpretation Comments eGFR (test code = eGFR) 53 [facility]2017-08-09 09:43:00 Test Item Value Reference Range Interpretation Comments Glucose Lvl (test code = Glucose Lvl) 116 70-99 [facility]2017-08-09 09:43:00 Test Item Value Reference Range Interpretation Comments BUN (test code = BUN) 18 7-22 [facility]2017-08-09 09:43:00 Test Item Value Reference Range Interpretation Comments Creatinine Lvl (test code = Creatinine 1.50 0.50-1.40 Lvl) [facility]2017-08-09 09:43:00 Test Item Value Reference Range Interpretation Comments Potassium Lvl (test code = Potassium 3.9 3.5-5.1 Lvl) [facility]2017-08-09 09:43:00 Test Item Value Reference Range Interpretation Comments Sodium Lvl (test code = Sodium Lvl) 137 135-145 [facility]2017-08-09 09:43:00 Test Item Value Reference Range Interpretation Comments Calcium Lvl (test code = Calcium Lvl) 7.9 8.5-10.5 [facility]2017-08-09 09:43:00 Test Item Value Reference Range Interpretation Comments CO2 (test code = CO2) 24 24-32 [facility] AreaDwfehjkTJNUHLSSRG4213-46-33 09:43:00 Test Item Value Reference Range Interpretation Comments Monocytes # (test code 1.2 See_Comment [Aut omated message] The = Monocytes #) system which generated this result tra nsmitted reference range : <=0.8. The reference r mary was not used to int erpret this result as normal/abnormal . [facility]2017-08-09 09:43:00 Test Item Value Reference Range Interpretation Comments Chloride Lvl (test code = Chloride Lvl) 104 95-109 [facility]2017-08-09 09:43:00 Test Item Value Reference Range Interpretation Comments AGAP (test code = AGAP) 12.9 10.0-20.0 [facility] AreaYuvguxnKBYXHVAAZQ3372-40-56 09:43:00 Test Item Value Reference Range Interpretation Comments Basophils # (test code 0.1 See_Comment [Aut omated message] The = Basophils #) system which generated this result tra nsmitted reference range : <=0.2. The reference r mary was not used to int erpret this result as normal/abnormal . [facility] AreaExubjfaCLRAKNOOBH5326-82-94 09:43:00 Test Item Value Reference Range Interpretation Comments Monocytes # (test code 1.2 See_Comment [Aut omated message] The = Monocytes #) system which generated this result tra nsmitted reference range : <=0.8. The reference r mary was not used to int erpret this result as normal/abnormal . [facility] AreaUbxqznqJBRRUJGVIV7768-35-56 09:43:00 Test Item Value Reference Range Interpretation Comments Eosinophils # (test code 0.2 See_Comment [A utomated message] The = Eosinophils #) system whic h generated this result tra nsmitted reference range : <=0.5. The reference r mary was not used to int erpret this result as normal/abnormal . [facility] AreaDksvhhiNYPROJQOVY1375-33-60 09:43:00 Test Item Value Reference Range Interpretation Comments Lymphocytes # (test code = Lymphocytes 2.5 1.0-5.5 #) [facility] AreaAjztiloAKLNZYHIAE3013-23-71 09:43:00 Test Item Value Reference Range Interpretation Comments Monocytes (test code = Monocytes) 8.7 2.0-12.0 [facility] AreaEhlnjciDBGEGWSXQY4704-14-24 09:43:00 Test Item Value Reference Range Interpretation Comments Eosinophils (test code = 1.6 See_Comment [A utomated message] The Eosinophils) system which nerated this result tra nsmitted reference range : <=4.0. The reference r mary was not used to int erpret this result as normal/abnormal . [facility] AreaXnjelsuUJXTHFWIPP3268-24-39 09:43:00 Test Item Value Reference Range Interpretation Comments Basophils (test code = 0.4 See_Comment [Aut omated message] The Basophils) system which ge nerated this result tra nsmitted reference range : <=1.0. The reference r mary was not used to int erpret this result as normal/abnormal . [facility] AreaNqhagzdWMCBTLRERA0030-33-08 09:43:00 Test Item Value Reference Range Interpretation Comments Segs-Bands # (test code = Segs-Bands #) 10.1 1.5-8.1 [facility] AreaAhbwgmvKBXMFWVVTF7357-76-89 09:43:00 Test Item Value Reference Range Interpretation Comments Eosinophils # (test code 0.2 See_Comment [A utomated message] The = Eosinophils #) system [facility] [employer] generated this result tra nsmitted reference range : <=0.5. The reference r mary was not used to int erpret this result as normal/abnormal . [facility] AreaNxsyeoyXSCVUHRNRH9278-44-49 09:43:00 Test Item Value Reference Range Interpretation Comments Lymphocytes (test code = Lymphocytes) 17.7 20.0-40.0 [facility] AreaEufkjdbOVPSLSIYXS8136-79-88 09:43:00 Test Item Value Reference Range Interpretation Comments Segs (test code = Segs) 71.6 45.0-75.0 [facility] AreaDznxpsaPOUUIWCDHJ3874-92-21 09:43:00 Test Item Value Reference Range Interpretation Comments MPV (test code = MPV) 8.4 7.4-10.4 [facility] AreaRrtkoenTZMVAOAPNL2055-10-39 09:43:00 Test Item Value Reference Range Interpretation Comments Platelet (test code = Platelet) 211 133-450 [facility] AreaYefjkkvNMOQISHTQK7999-32-21 09:43:00 Test Item Value Reference Range Interpretation Comments WBC (test code = WBC) 14.1 3.7-10.4 [facility] AreaEumiurtADTFWODVDH2941-31-55 09:43:00 Test Item Value Reference Range Interpretation Comments RBC (test code = RBC) 4.43 4.70-6.10 [facility] AreaTsyveqyVPWOYVRXNQ1959-93-76 09:43:00 Test Item Value Reference Range Interpretation Comments Hgb (test code = Hgb) 13.3 14.0-18.0 [facility] AreaJgwrjbkRYJLGOPEBO5219-85-72 09:43:00 Test Item Value Reference Range Interpretation Comments MCV (test code = MCV) 90.8 80.0-94.0 [facility] AreaRejabluWQHOZCMUFB9010-69-57 09:43:00 Test Item Value Reference Range Interpretation Comments MCHC (test code = MCHC) 33.1 32.0-36.0 [facility] AreaSnafjtoRLNVCUMPUM6616-35-22 09:43:00 Test Item Value Reference Range Interpretation Comments MCH (test code = MCH) 30.0 pg 27.0-31.0 [facility] AreaIiykwnrSPDQZXFQLA7426-72-15 09:43:00 Test Item Value Reference Range Interpretation Comments Lymphocytes # (test code = Lymphocytes 2.5 1.0-5.5 #) [facility] AreaOjgbokdHCEPYBHSQB0656-90-16 09:43:00 Test Item Value Reference Range Interpretation Comments RDW (test code = RDW) 14.6 11.5-14.5 [facility] AreaXffmcswXVUBDWUXAL8849-08-82 09:43:00 Test Item Value Reference Range Interpretation Comments Hct (test code = Hct) 40.2 42.0-54.0 [facility] AreaWcrixfrUENBUAQNVF7005-06-63 09:43:00 Test Item Value Reference Range Interpretation Comments Monocytes (test code = Monocytes) 8.7 2.0-12.0 [facility] AreaKlkgymsRUVSZGIRQZ7463-37-92 09:43:00 Test Item Value Reference Range Interpretation Comments Eosinophils (test code = 1.6 See_Comment [A utomated message] The Eosinophils) system which ge nerated this result tra nsmitted reference range : <=4.0. The reference r mary was not used to int erpret this result as normal/abnormal . [facility] AreaHvfgrroXCTIVFQYSD7257-45-58 09:43:00 Test Item Value Reference Range Interpretation Comments Basophils (test code = 0.4 See_Comment [Aut omated message] The Basophils) system which ge nerated this result tra nsmitted reference range : <=1.0. The reference r mary was not used to int erpret this result as normal/abnormal . [facility] AreaDsnazgtHFWKZJYOHA2752-83-15 09:43:00 Test Item Value Reference Range Interpretation Comments Segs-Bands # (test code = Segs-Bands #) 10.1 1.5-8.1 [facility] AreaIyeobdqXDLMLSNBAY5736-36-76 09:43:00 Test Item Value Reference Range Interpretation Comments Lymphocytes (test code = Lymphocytes) 17.7 20.0-40.0 [facility] AreaFilodjxBSLYUVLHQI7087-18-95 09:43:00 Test Item Value Reference Range Interpretation Comments Segs (test code = Segs) 71.6 45.0-75.0 [facility] AreaLpeszxsSCKUHRJIYS7656-06-69 09:43:00 Test Item Value Reference Range Interpretation Comments MPV (test code = MPV) 8.4 7.4-10.4 [facility] AreaBdjjnowQPYTQSTFBG4508-81-35 09:43:00 Test Item Value Reference Range Interpretation Comments Platelet (test code = Platelet) 211 133-450 [facility] AreaNjfbnfxULBUJBZAGH6940-89-10 09:43:00 Test Item Value Reference Range Interpretation Comments WBC (test code = WBC) 14.1 3.7-10.4 [facility] AreaOytzuczGQHHTXQFHA7944-94-85 09:43:00 Test Item Value Reference Range Interpretation Comments RBC (test code = RBC) 4.43 4.70-6.10 [facility]2017-08-09 09:43:00 Test Item Value Reference Range Interpretation Comments eGFR (test code = eGFR) 53 [facility] AreaRjssejcRHHLKWUQVH2153-34-76 09:43:00 Test Item Value Reference Range Interpretation Comments Hgb (test code = Hgb) 13.3 14.0-18.0 [place] 616067-08-09 09:43:00 Test Item Value Reference Range Interpretation Comments Glucose Lvl (test code = Glucose Lvl) 116 70-99 [facility]2017-08-09 09:43:00 Test Item Value Reference Range Interpretation Comments BUN (test code = BUN) 18 7-22 [facility]2017-08-09 09:43:00 Test Item Value Reference Range Interpretation Comments Creatinine Lvl (test code = Creatinine 1.50 0.50-1.40 Lvl) [facility]2017-08-09 09:43:00 Test Item Value Reference Range Interpretation Comments Potassium Lvl (test code = Potassium 3.9 3.5-5.1 Lvl) [facility]2017-08-09 09:43:00 Test Item Value Reference Range Interpretation Comments Sodium Lvl (test code = Sodium Lvl) 137 135-145 [facility]2017-08-09 09:43:00 Test Item Value Reference Range Interpretation Comments Calcium Lvl (test code = Calcium Lvl) 7.9 8.5-10.5 [facility]2017-08-09 09:43:00 Test Item Value Reference Range Interpretation Comments CO2 (test code = CO2) 24 24-32 [facility]2017-08-09 09:43:00 Test Item Value Reference Range Interpretation Comments Chloride Lvl (test code = Chloride Lvl) 104 95-109 [facility]2017-08-09 09:43:00 Test Item Value Reference Range Interpretation Comments AGAP (test code = AGAP) 12.9 10.0-20.0 [facility] AreaNnzcpxgGPFFLPSWPW3038-71-49 09:43:00 Test Item Value Reference Range Interpretation Comments Basophils # (test code 0.1 See_Comment [Aut omated message] The = Basophils #) system which generated this result tra nsmitted reference range : <=0.2. The reference r mary was not used to int erpret this result as normal/abnormal . [facility] [place] AreaFoomvxbIECXCECHFP0753-19-23 09:43:00 Test Item Value Reference Range Interpretation Comments MCV (test code = MCV) 90.8 80.0-94.0 [facility] AreaBayuolaFCQAKWNJPA1333-31-72 09:43:00 Test Item Value Reference Range Interpretation Comments Monocytes # (test code 1.2 See_Comment [Aut omated message] The = Monocytes #) system which generated this result tra nsmitted reference range : <=0.8. The reference r mary was not used to int erpret this result as normal/abnormal . [facility] AreaSumztvgYYKXDMOFEX2223-60-51 09:43:00 Test Item Value Reference Range Interpretation Comments Eosinophils # (test code 0.2 See_Comment [A utomated message] The = Eosinophils #) system whic h generated this result tra nsmitted reference range : <=0.5. The reference r mary was not used to int erpret this result as normal/abnormal . [facility] AreaXeenxonQHFJURBLCJ0163-28-41 09:43:00 Test Item Value Reference Range Interpretation Comments Lymphocytes # (test code = Lymphocytes 2.5 1.0-5.5 #) [facility] AreaJhhougpMBVWEJPCVG1630-93-97 09:43:00 Test Item Value Reference Range Interpretation Comments Monocytes (test code = Monocytes) 8.7 2.0-12.0 [facility] AreaUsjbzexRPLGEJQZAU2066-97-93 09:43:00 Test Item Value Reference Range Interpretation Comments Eosinophils (test code = 1.6 See_Comment [A utomated message] The Eosinophils) system which ge nerated this result tra nsmitted reference range : <=4.0. The reference r mary was not used to int erpret this result as normal/abnormal . [facility] AreaCqfibdaLZLUTNSPMW4900-74-81 09:43:00 Test Item Value Reference Range Interpretation Comments Basophils (test code = 0.4 See_Comment [Aut omated message] The Basophils) system which ge nerated this result tra nsmitted reference range : <=1.0. The reference r mary was not used to int erpret this result as normal/abnormal . [facility] AreaFojjposCCZNIFSDPQ8835-87-72 09:43:00 Test Item Value Reference Range Interpretation Comments Segs-Bands # (test code = Segs-Bands #) 10.1 1.5-8.1 [facility] AreaWcasydjZOAMBKHXLG0372-20-89 09:43:00 Test Item Value Reference Range Interpretation Comments Lymphocytes (test code = Lymphocytes) 17.7 20.0-40.0 [facility] AreaCxlfqvrHVBYGHCIPZ9662-95-45 09:43:00 Test Item Value Reference Range Interpretation Comments Segs (test code = Segs) 71.6 45.0-75.0 [facility] AreaRzfzwgiOVHRCSFXZD4100-68-46 09:43:00 Test Item Value Reference Range Interpretation Comments MPV (test code = MPV) 8.4 7.4-10.4 [facility] AreaAuhpmhlVSFSMMKXJJ7855-93-30 09:43:00 Test Item Value Reference Range Interpretation Comments MCHC (test code = MCHC) 33.1 32.0-36.0 [facility] AreaJctdvuoZTCNKYPSJS4461-05-44 09:43:00 Test Item Value Reference Range Interpretation Comments Platelet (test code = Platelet) 211 133-450 [facility] AreaUsbbwzvCBTLYPWXGX5308-80-93 09:43:00 Test Item Value Reference Range Interpretation Comments WBC (test code = WBC) 14.1 3.7-10.4 [facility] AreaBgflosgVOTLLVCYDC1744-34-35 09:43:00 Test Item Value Reference Range Interpretation Comments RBC (test code = RBC) 4.43 4.70-6.10 [facility] AreaQjhvvueINATUZLLDN0949-03-94 09:43:00 Test Item Value Reference Range Interpretation Comments Hgb (test code = Hgb) 13.3 14.0-18.0 [facility] AreaQejkhtiWHGNZQHSHP6882-43-69 09:43:00 Test Item Value Reference Range Interpretation Comments MCV (test code = MCV) 90.8 80.0-94.0 [facility] AreaGsvdethSLXYRZAUSN8197-50-71 09:43:00 Test Item Value Reference Range Interpretation Comments MCHC (test code = MCHC) 33.1 32.0-36.0 [facility] AreaLfturbzVEALBYUOGJ9522-12-76 09:43:00 Test Item Value Reference Range Interpretation Comments MCH (test code = MCH) 30.0 pg 27.0-31.0 [facility] AreaCnrxydxIFEJYEQFSM6679-40-82 09:43:00 Test Item Value Reference Range Interpretation Comments RDW (test code = RDW) 14.6 11.5-14.5 [facility] AreaTcpzisgAILJWAJPDQ6882-59-32 09:43:00 Test Item Value Reference Range Interpretation Comments Hct (test code = Hct) 40.2 42.0-54.0 [facility] AreaBxuxfghUMXWSTQNON6538-59-69 09:43:00 Test Item Value Reference Range Interpretation Comments MCH (test code = MCH) 30.0 pg 27.0-31.0 [facility] AreaZdfuywkTJZMJHXEVG4667-71-28 09:43:00 Test Item Value Reference Range Interpretation Comments RDW (test code = RDW) 14.6 11.5-14.5 [facility] AreaXneekimGTGWSOOITN0555-22-17 09:43:00 Test Item Value Reference Range Interpretation Comments Hct (test code = Hct) 40.2 42.0-54.0 [facility]2017-08-09 09:43:00 Test Item Value Reference Range Interpretation Comments eGFR (test code = eGFR) 53 [facility]2017-08-09 09:43:00 Test Item Value Reference Range Interpretation Comments Glucose Lvl (test code = Glucose Lvl) 116 70-99 [facility]2017-08-09 09:43:00 Test Item Value Reference Range Interpretation Comments BUN (test code = BUN) 18 7-22 [facility]2017-08-09 09:43:00 Test Item Value Reference Range Interpretation Comments Creatinine Lvl (test code = Creatinine 1.50 0.50-1.40 Lvl) [facility]2017-08-09 09:43:00 Test Item Value Reference Range Interpretation Comments Potassium Lvl (test code = Potassium 3.9 3.5-5.1 Lvl) [facility]2017-08-09 09:43:00 Test Item Value Reference Range Interpretation Comments Sodium Lvl (test code = Sodium Lvl) 137 135-145 [facility]2017-08-09 09:43:00 Test Item Value Reference Range Interpretation Comments Calcium Lvl (test code = Calcium Lvl) 7.9 8.5-10.5 [facility]2017-08-09 09:43:00 Test Item Value Reference Range Interpretation Comments CO2 (test code = CO2) 24 24-32 [facility]2017-08-09 09:43:00 Test Item Value Reference Range Interpretation Comments Chloride Lvl (test code = Chloride Lvl) 104 95-109 [facility]2017-08-09 09:43:00 Test Item Value Reference Range Interpretation Comments AGAP (test code = AGAP) 12.9 10.0-20.0 [facility] AreaJqepgzyCCFYSZEXND9201-66-74 09:43:00 Test Item Value Reference Range Interpretation Comments Basophils # (test code 0.1 See_Comment [Aut omated message] The = Basophils #) system which generated this result tra nsmitted reference range : <=0.2. The reference r mary was not used to int erpret this result as normal/abnormal . [facility] AreaOrjdtlnFXKUGWNMAL6746-79-54 09:43:00 Test Item Value Reference Range Interpretation Comments Monocytes # (test code 1.2 See_Comment [Aut omated message] The = Monocytes #) system which generated this result tra nsmitted reference range : <=0.8. The reference r mary was not used to int erpret this result as normal/abnormal . [facility] AreaQipdzapWWLQFQYAFB0233-77-73 09:43:00 Test Item Value Reference Range Interpretation Comments Eosinophils # (test code 0.2 See_Comment [A utomated message] The = Eosinophils #) system whic h generated this result tra nsmitted reference range : <=0.5. The reference r mary was not used to int erpret this result as normal/abnormal . [facility] AreaRublgepPDZOEXBCEF9661-41-12 09:43:00 Test Item Value Reference Range Interpretation Comments Lymphocytes # (test code = Lymphocytes 2.5 1.0-5.5 #) [facility] AreaBvbixwlGIVCFTZNZJ2441-07-84 09:43:00 Test Item Value Reference Range Interpretation Comments Monocytes (test code = Monocytes) 8.7 2.0-12.0 [facility] AreaDskmnitISCXNCLQCY3235-03-05 09:43:00 Test Item Value Reference Range Interpretation Comments Eosinophils (test code = 1.6 See_Comment [A utomated message] The Eosinophils) system which ge nerated this result tra nsmitted reference range : <=4.0. The reference r mary was not used to int erpret this result as normal/abnormal . [facility] AreaDiyopzsYAVYBQRXGY3554-58-20 09:43:00 Test Item Value Reference Range Interpretation Comments Basophils (test code = 0.4 See_Comment [Aut omated message] The Basophils) system which ge nerated this result tra nsmitted reference range : <=1.0. The reference r mary was not used to int erpret this result as normal/abnormal . [facility] AreaXdbxjfxRIWEUAXLVK3090-81-62 09:43:00 Test Item Value Reference Range Interpretation Comments Segs-Bands # (test code = Segs-Bands #) 10.1 1.5-8.1 [facility] AreaDmqzgbqUYXISPNIAQ1349-80-58 09:43:00 Test Item Value Reference Range Interpretation Comments Lymphocytes (test code = Lymphocytes) 17.7 20.0-40.0 [facility] AreaNsomfoeMOKLBVYKOX7313-65-70 09:43:00 Test Item Value Reference Range Interpretation Comments Segs (test code = Segs) 71.6 45.0-75.0 [facility] AreaTsnbpcuOAZXFWQGKM3772-70-40 09:43:00 Test Item Value Reference Range Interpretation Comments MPV (test code = MPV) 8.4 7.4-10.4 [facility] AreaIuamcxhQVYGBIUVEA6794-95-54 09:43:00 Test Item Value Reference Range Interpretation Comments Platelet (test code = Platelet) 211 133-450 [facility] AreaKkmaphgOYQQRAVOQV5034-32-70 09:43:00 Test Item Value Reference Range Interpretation Comments WBC (test code = WBC) 14.1 3.7-10.4 [facility] AreaXjyrvoeCXRAULEMPT0254-04-67 09:43:00 Test Item Value Reference Range Interpretation Comments RBC (test code = RBC) 4.43 4.70-6.10 [facility] AreaLgedkaeRXOKDOHEQP3161-98-54 09:43:00 Test Item Value Reference Range Interpretation Comments Hgb (test code = Hgb) 13.3 14.0-18.0 [facility] AreaGutcokeHVFZBJGJLM5463-47-70 09:43:00 Test Item Value Reference Range Interpretation Comments MCV (test code = MCV) 90.8 80.0-94.0 [facility] AreaOxaojncHNOPQBSRGB8730-31-49 09:43:00 Test Item Value Reference Range Interpretation Comments MCHC (test code = MCHC) 33.1 32.0-36.0 [facility] AreaIsbjbgwTBKTCGKJOU2662-52-21 09:43:00 Test Item Value Reference Range Interpretation Comments MCH (test code = MCH) 30.0 pg 27.0-31.0 [facility] AreaMarpknaRLRYMTHUXM0650-36-00 09:43:00 Test Item Value Reference Range Interpretation Comments RDW (test code = RDW) 14.6 11.5-14.5 [facility] AreaCzyeryrDYVCJRMFYA4689-18-08 09:43:00 Test Item Value Reference Range Interpretation Comments Hct (test code = Hct) 40.2 42.0-54.0 [facility]2017-08-09 09:43:00 Test Item Value Reference Range Interpretation Comments eGFR (test code = eGFR) 53 [facility]2017-08-09 09:43:00 Test Item Value Reference Range Interpretation Comments Glucose Lvl (test code = Glucose Lvl) 116 70-99 [facility]2017-08-09 09:43:00 Test Item Value Reference Range Interpretation Comments BUN (test code = BUN) 18 7-22 [facility]2017-08-09 09:43:00 Test Item Value Reference Range Interpretation Comments Creatinine Lvl (test code = Creatinine 1.50 0.50-1.40 Lvl) [facility]2017-08-09 09:43:00 Test Item Value Reference Range Interpretation Comments Potassium Lvl (test code = Potassium 3.9 3.5-5.1 Lvl) [facility]2017-08-09 09:43:00 Test Item Value Reference Range Interpretation Comments Sodium Lvl (test code = Sodium Lvl) 137 135-145 [facility]2017-08-09 09:43:00 Test Item Value Reference Range Interpretation Comments Calcium Lvl (test code = Calcium Lvl) 7.9 8.5-10.5 [facility]2017-08-09 09:43:00 Test Item Value Reference Range Interpretation Comments CO2 (test code = CO2) 24 24-32 [facility]2017-08-09 09:43:00 Test Item Value Reference Range Interpretation Comments Chloride Lvl (test code = Chloride Lvl) 104 95-109 [facility]2017-08-09 09:43:00 Test Item Value Reference Range Interpretation Comments AGAP (test code = AGAP) 12.9 10.0-20.0 [facility] AreaOzewtfeZBRGTOQUJB4663-74-37 09:43:00 Test Item Value Reference Range Interpretation Comments Basophils # (test code 0.1 See_Comment [Aut omated message] The = Basophils #) system which generated this result tra nsmitted reference range : <=0.2. The reference r mary was not used to int erpret this result as normal/abnormal . [facility] AreaJuctqbgVZVOGJPMMM9247-14-07 09:43:00 Test Item Value Reference Range Interpretation Comments Monocytes # (test code 1.2 See_Comment [Aut omated message] The = Monocytes #) system which generated this result tra nsmitted reference range : <=0.8. The reference r mary was not used to int erpret this result as normal/abnormal . [facility] AreaIohqbgiJTUUWAFNIM0183-87-55 09:43:00 Test Item Value Reference Range Interpretation Comments Eosinophils # (test code 0.2 See_Comment [A utomated message] The = Eosinophils #) system whic h generated this result tra nsmitted reference range : <=0.5. The reference r mary was not used to int erpret this result as normal/abnormal . [facility] AreaHedeafhAJAKPNEAVA7454-50-60 09:43:00 Test Item Value Reference Range Interpretation Comments Lymphocytes # (test code = Lymphocytes 2.5 1.0-5.5 #) [facility] AreaZikziinCLIALYHXDA1441-70-85 09:43:00 Test Item Value Reference Range Interpretation Comments Monocytes (test code = Monocytes) 8.7 2.0-12.0 [facility] AreaYpwyclcEFSDRHZXHC3618-61-16 09:43:00 Test Item Value Reference Range Interpretation Comments Eosinophils (test code = 1.6 See_Comment [A utomated message] The Eosinophils) system which ge nerated this result tra nsmitted reference range : <=4.0. The reference r mary was not used to int erpret this result as normal/abnormal . [facility] AreaNpvlnauCHXZMAHVOY9938-66-83 09:43:00 Test Item Value Reference Range Interpretation Comments Basophils (test code = 0.4 See_Comment [Aut omated message] The Basophils) system which ge nerated this result tra nsmitted reference range : <=1.0. The reference r mary was not used to int erpret this result as normal/abnormal . [facility] AreaBqtwjczKKJXETSAAK8102-41-55 09:43:00 Test Item Value Reference Range Interpretation Comments Segs-Bands # (test code = Segs-Bands #) 10.1 1.5-8.1 [facility] AreaTqjevmsHXLUUZBMHP4354-12-36 09:43:00 Test Item Value Reference Range Interpretation Comments Lymphocytes (test code = Lymphocytes) 17.7 20.0-40.0 [facility] AreaYrrbjorOIIHPXOVZD3360-64-69 09:43:00 Test Item Value Reference Range Interpretation Comments Segs (test code = Segs) 71.6 45.0-75.0 [place] [address]73-08-09 09:43:00 Test Item Value Reference Range Interpretation Comments MPV (test code = MPV) 8.4 7.4-10.4 [facility] AreaQmwephqNBPXNQKXZE8732-98-68 09:43:00 Test Item Value Reference Range Interpretation Comments Platelet (test code = Platelet) 211 133-450 [facility] AreaNhwijdbORDVFMGQGD2263-50-40 09:43:00 Test Item Value Reference Range Interpretation Comments WBC (test code = WBC) 14.1 3.7-10.4 [facility] AreaIajbtkfOPFZOTMNHV8581-16-31 09:43:00 Test Item Value Reference Range Interpretation Comments RBC (test code = RBC) 4.43 4.70-6.10 [facility] AreaVafdffsYREHVODDDO1279-80-09 09:43:00 Test Item Value Reference Range Interpretation Comments Hgb (test code = Hgb) 13.3 14.0-18.0 [facility] AreaIyzdytmQJXURBAHMT9672-29-72 09:43:00 Test Item Value Reference Range Interpretation Comments MCV (test code = MCV) 90.8 80.0-94.0 [facility] AreaIcpfsiaHKLPJVACHM4525-86-04 09:43:00 Test Item Value Reference Range Interpretation Comments MCHC (test code = MCHC) 33.1 32.0-36.0 [facility] AreaLcyrjdrHWZHHXXOHU2627-91-01 09:43:00 Test Item Value Reference Range Interpretation Comments MCH (test code = MCH) 30.0 pg 27.0-31.0 [facility] AreaHmlttzlDAJKWUGBIK6025-08-37 09:43:00 Test Item Value Reference Range Interpretation Comments RDW (test code = RDW) 14.6 11.5-14.5 [facility] AreaVldrbmeSHUTOQMXQG2359-12-77 09:43:00 Test Item Value Reference Range Interpretation Comments Hct (test code = Hct) 40.2 42.0-54.0 [facility]2017-08-09 09:43:00 Test Item Value Reference Range Interpretation Comments eGFR (test code = eGFR) 53 [facility]2017-08-09 09:43:00 Test Item Value Reference Range Interpretation Comments Glucose Lvl (test code = Glucose Lvl) 116 70-99 [facility]2017-08-09 09:43:00 Test Item Value Reference Range Interpretation Comments BUN (test code = BUN) 18 7-22 [facility]2017-08-09 09:43:00 Test Item Value Reference Range Interpretation Comments Creatinine Lvl (test code = Creatinine 1.50 0.50-1.40 Lvl) [facility]2017-08-09 09:43:00 Test Item Value Reference Range Interpretation Comments Potassium Lvl (test code = Potassium 3.9 3.5-5.1 Lvl) [facility]2017-08-09 09:43:00 Test Item Value Reference Range Interpretation Comments Sodium Lvl (test code = Sodium Lvl) 137 135-145 [facility]2017-08-09 09:43:00 Test Item Value Reference Range Interpretation Comments Calcium Lvl (test code = Calcium Lvl) 7.9 8.5-10.5 [facility]2017-08-09 09:43:00 Test Item Value Reference Range Interpretation Comments CO2 (test code = CO2) 24 24-32 [facility]2017-08-09 09:43:00 Test Item Value Reference Range Interpretation Comments Chloride Lvl (test code = Chloride Lvl) 104 95-109 [facility]2017-08-09 09:43:00 Test Item Value Reference Range Interpretation Comments AGAP (test code = AGAP) 12.9 10.0-20.0 [facility] AreaMqqdnieZBQPPUEMSX0697-33-90 09:43:00 Test Item Value Reference Range Interpretation Comments Basophils # (test code 0.1 See_Comment [Aut omated message] The = Basophils #) system which generated this result tra nsmitted reference range : <=0.2. The reference r mary was not used to int erpret this result as normal/abnormal . [facility] AreaJoexprhHQZWXGMJWD6001-59-15 09:43:00 Test Item Value Reference Range Interpretation Comments Monocytes # (test code 1.2 See_Comment [Aut omated message] The = Monocytes #) system which generated this result tra nsmitted reference range : <=0.8. The reference r mary was not used to int erpret this result as normal/abnormal . [facility] AreaUcaeoudJEFDFCYSCT7026-82-72 09:43:00 Test Item Value Reference Range Interpretation Comments Eosinophils # (test code 0.2 See_Comment [A utomated message] The = Eosinophils #) system whic h generated this result tra nsmitted reference range : <=0.5. The reference r mary was not used to int erpret this result as normal/abnormal . [facility] AreaLbrudbdOBAIXRNENC0742-29-44 09:43:00 Test Item Value Reference Range Interpretation Comments Lymphocytes # (test code = Lymphocytes 2.5 1.0-5.5 #) [facility] AreaTwjxpptRLETWQFUQC7906-30-56 09:43:00 Test Item Value Reference Range Interpretation Comments Monocytes (test code = Monocytes) 8.7 2.0-12.0 [facility] AreaVaybonpDCCBUVHTJP6993-78-21 09:43:00 Test Item Value Reference Range Interpretation Comments Eosinophils (test code = 1.6 See_Comment [A utomated message] The Eosinophils) system which ge nerated this result tra nsmitted reference range : <=4.0. The reference r mary was not used to int erpret this result as normal/abnormal . [facility] AreaOhytmyvKFQTHBASVS3521-84-41 09:43:00 Test Item Value Reference Range Interpretation Comments Basophils (test code = 0.4 See_Comment [Aut omated message] The Basophils) system which ge nerated this result tra nsmitted reference range : <=1.0. The reference r mary was not used to int erpret this result as normal/abnormal . [facility] AreaCkxlaqhPYDUFHHKQE6552-21-38 09:43:00 Test Item Value Reference Range Interpretation Comments Segs-Bands # (test code = Segs-Bands #) 10.1 1.5-8.1 [facility] AreaBrvvmilITTWSUFXQG5208-74-29 09:43:00 Test Item Value Reference Range Interpretation Comments Lymphocytes (test code = Lymphocytes) 17.7 20.0-40.0 [facility] AreaUwvgvfgPGVNMZKVDT5931-53-25 09:43:00 Test Item Value Reference Range Interpretation Comments Segs (test code = Segs) 71.6 45.0-75.0 [facility] AreaEigysvmDGJPXXXWWM5165-65-83 09:43:00 Test Item Value Reference Range Interpretation Comments MPV (test code = MPV) 8.4 7.4-10.4 [facility] AreaKvanzodJSRYQZRJLQ4199-71-98 09:43:00 Test Item Value Reference Range Interpretation Comments Platelet (test code = Platelet) 211 133-450 [facility] AreaFqbfrdtZMCXSDIQNM7789-25-35 09:43:00 Test Item Value Reference Range Interpretation Comments WBC (test code = WBC) 14.1 3.7-10.4 [facility] AreaWatufsjKJPWUOIFEN6040-75-70 09:43:00 Test Item Value Reference Range Interpretation Comments RBC (test code = RBC) 4.43 4.70-6.10 [facility] AreaOxcewwpDNEUNMUCXZ8466-15-19 09:43:00 Test Item Value Reference Range Interpretation Comments Hgb (test code = Hgb) 13.3 14.0-18.0 [facility] AreaZmdmyfxONQWGRIXSP3595-48-56 09:43:00 Test Item Value Reference Range Interpretation Comments MCV (test code = MCV) 90.8 80.0-94.0 [facility] AreaTddjrzmHBUPMUERFG7348-94-89 09:43:00 Test Item Value Reference Range Interpretation Comments MCHC (test code = MCHC) 33.1 32.0-36.0 [facility] AreaGldiflnYEJDRMZBSJ1384-26-47 09:43:00 Test Item Value Reference Range Interpretation Comments MCH (test code = MCH) 30.0 pg 27.0-31.0 [facility] AreaKpipkjtMOCQKWCGAO9327-05-97 09:43:00 Test Item Value Reference Range Interpretation Comments RDW (test code = RDW) 14.6 11.5-14.5 [facility] AreaIanqanhIUEGVMXERE5399-54-04 09:43:00 Test Item Value Reference Range Interpretation Comments Hct (test code = Hct) 40.2 42.0-54.0 [facility]2017-08-09 09:43:00 Test Item Value Reference Range Interpretation Comments eGFR (test code = eGFR) 53 [facility]2017-08-09 09:43:00 Test Item Value Reference Range Interpretation Comments Glucose Lvl (test code = Glucose Lvl) 116 70-99 [facility]2017-08-09 09:43:00 Test Item Value Reference Range Interpretation Comments BUN (test code = BUN) 18 7-22 [facility]2017-08-09 09:43:00 Test Item Value Reference Range Interpretation Comments Creatinine Lvl (test code = Creatinine 1.50 0.50-1.40 Lvl) [facility]2017-08-09 09:43:00 Test Item Value Reference Range Interpretation Comments Potassium Lvl (test code = Potassium 3.9 3.5-5.1 Lvl) [facility]2017-08-09 09:43:00 Test Item Value Reference Range Interpretation Comments Sodium Lvl (test code = Sodium Lvl) 137 135-145 [facility]2017-08-09 09:43:00 Test Item Value Reference Range Interpretation Comments Calcium Lvl (test code = Calcium Lvl) 7.9 8.5-10.5 [facility]2017-08-09 09:43:00 Test Item Value Reference Range Interpretation Comments CO2 (test code = CO2) 24 24-32 [place] [id number] 09:43:00 Test Item Value Reference Range Interpretation Comments Chloride Lvl (test code = Chloride Lvl) 104 95-109 [facility]2017-08-09 09:43:00 Test Item Value Reference Range Interpretation Comments AGAP (test code = AGAP) 12.9 10.0-20.0 [facility]IxbbeibJSCGPNTLEK5546-42-13 09:43:00 Test Item Value Reference Range Interpretation Comments Basophils # (test code 0.1 See_Comment [Aut omated message] The = Basophils #) system which generated this result tra nsmitted reference range : <=0.2. The reference r mary was not used to int erpret this result as normal/abnormal . [facility] AreaYactpcmVQHXRUHWCC2770-75-46 09:43:00 Test Item Value Reference Range Interpretation Comments Monocytes # (test code 1.2 See_Comment [Aut omated message] The = Monocytes #) system which generated this result tra nsmitted reference range : <=0.8. The reference r mary was not used to int erpret this result as normal/abnormal . [facility] AreaWumrdouMZYJXHVOMJ7527-39-48 09:43:00 Test Item Value Reference Range Interpretation Comments Eosinophils # (test code 0.2 See_Comment [A utomated message] The = Eosinophils #) system whic h generated this result tra nsmitted reference range : <=0.5. The reference r mary was not used to int erpret this result as normal/abnormal . [facility] AreaUenyxtnEPWWVKKKXC4705-36-98 09:43:00 Test Item Value Reference Range Interpretation Comments Lymphocytes # (test code = Lymphocytes 2.5 1.0-5.5 #) [facility] AreaCtsnfzdSWXEMZJKFB0203-89-75 09:43:00 Test Item Value Reference Range Interpretation Comments Monocytes (test code = Monocytes) 8.7 2.0-12.0 [facility] AreaRivxsmxYDDFSPGYAB8006-34-44 09:43:00 Test Item Value Reference Range Interpretation Comments Eosinophils (test code = 1.6 See_Comment [A utomated message] The Eosinophils) system which ge nerated this result tra nsmitted reference range : <=4.0. The reference r mary was not used to int erpret this result as normal/abnormal . [facility] AreaFwwdjzoGNSLFSPFIE4956-90-45 09:43:00 Test Item Value Reference Range Interpretation Comments Basophils (test code = 0.4 See_Comment [Aut omated message] The Basophils) system which ge nerated this result tra nsmitted reference range : <=1.0. The reference r mary was not used to int erpret this result as normal/abnormal . [facility] AreaJchuuurRQKYVXDLPQ3451-84-10 09:43:00 Test Item Value Reference Range Interpretation Comments Segs-Bands # (test code = Segs-Bands #) 10.1 1.5-8.1 [facility] AreaXtvzubpUYDVPFFGNQ5380-78-29 09:43:00 Test Item Value Reference Range Interpretation Comments Lymphocytes (test code = Lymphocytes) 17.7 20.0-40.0 [facility] AreaNdzdtsvJUERAGVUOW7838-39-76 09:43:00 Test Item Value Reference Range Interpretation Comments Segs (test code = Segs) 71.6 45.0-75.0 [facility] AreaObdtbesPARBYVZXCN3229-88-05 09:43:00 Test Item Value Reference Range Interpretation Comments MPV (test code = MPV) 8.4 7.4-10.4 [facility] AreaVyklbiiAUTQERPNAJ9423-17-15 09:43:00 Test Item Value Reference Range Interpretation Comments Platelet (test code = Platelet) 211 133-450 [facility] AreaDxatwthJAFBJSUQZW1202-71-99 09:43:00 Test Item Value Reference Range Interpretation Comments WBC (test code = WBC) 14.1 3.7-10.4 [facility] AreaRwcstnoYERGBTYIKA5200-08-68 09:43:00 Test Item Value Reference Range Interpretation Comments RBC (test code = RBC) 4.43 4.70-6.10 [facility] AreaBotsaaxIYATBQDXLU8525-42-30 09:43:00 Test Item Value Reference Range Interpretation Comments Hgb (test code = Hgb) 13.3 14.0-18.0 [facility] AreaTmxjnhrBGGNZVEWLC0871-63-10 09:43:00 Test Item Value Reference Range Interpretation Comments MCV (test code = MCV) 90.8 80.0-94.0 [facility] AreaPbhdvscZAEXTOZZKG9643-22-28 09:43:00 Test Item Value Reference Range Interpretation Comments MCHC (test code = MCHC) 33.1 32.0-36.0 [facility] AreaEljbskxHFIXABGBDM2966-56-82 09:43:00 Test Item Value Reference Range Interpretation Comments MCH (test code = MCH) 30.0 pg 27.0-31.0 [facility] AreaXrlrffaLPXTGGWDSG0161-83-69 09:43:00 Test Item Value Reference Range Interpretation Comments RDW (test code = RDW) 14.6 11.5-14.5 [facility] AreaIemiapxRIEJGTDJHT6760-70-10 09:43:00 Test Item Value Reference Range Interpretation Comments Hct (test code = Hct) 40.2 42.0-54.0 [facility]2017-08-09 09:43:00 Test Item Value Reference Range Interpretation Comments eGFR (test code = eGFR) 53 [facility]2017-08-09 09:43:00 Test Item Value Reference Range Interpretation Comments Glucose Lvl (test code = Glucose Lvl) 116 70-99 [facility]2017-08-09 09:43:00 Test Item Value Reference Range Interpretation Comments BUN (test code = BUN) 18 7-22 [facility]2017-08-09 09:43:00 Test Item Value Reference Range Interpretation Comments Creatinine Lvl (test code = Creatinine 1.50 0.50-1.40 Lvl) [facility]2017-08-09 09:43:00 Test Item Value Reference Range Interpretation Comments Potassium Lvl (test code = Potassium 3.9 3.5-5.1 Lvl) [facility]2017-08-09 09:43:00 Test Item Value Reference Range Interpretation Comments Sodium Lvl (test code = Sodium Lvl) 137 135-145 [facility]2017-08-09 09:43:00 Test Item Value Reference Range Interpretation Comments Calcium Lvl (test code = Calcium Lvl) 7.9 8.5-10.5 [facility]2017-08-09 09:43:00 Test Item Value Reference Range Interpretation Comments CO2 (test code = CO2) 24 24-32 [facility]2017-08-09 09:43:00 Test Item Value Reference Range Interpretation Comments Chloride Lvl (test code = Chloride Lvl) 104 95-109 [facility]2017-08-09 09:43:00 Test Item Value Reference Range Interpretation Comments AGAP (test code = AGAP) 12.9 10.0-20.0 [facility] AreaGhpyudhUMJUIUGSNR6591-75-52 09:43:00 Test Item Value Reference Range Interpretation Comments Basophils # (test code = Basophils #) 0.1 <=0.2 [facility] AreaRvnlrpeWICXIXWIGW7625-71-89 09:43:00 Test Item Value Reference Range Interpretation Comments Monocytes # (test code = Monocytes #) 1.2 <=0.8 [facility] AreaQfpcmhbBCYRAZVHFV4878-68-20 09:43:00 Test Item Value Reference Range Interpretation Comments Eosinophils # (test code = Eosinophils 0.2 <=0.5 #) [facility] AreaBxmfxstQMACDLNHVA3384-59-57 09:43:00 Test Item Value Reference Range Interpretation Comments Lymphocytes # (test code = Lymphocytes 2.5 1.0-5.5 #) [facility] AreaGypeerrZQPBMNRCVV1896-02-56 09:43:00 Test Item Value Reference Range Interpretation Comments Monocytes (test code = Monocytes) 8.7 2.0-12.0 [facility] AreaDzkscmnACUKQGVXYD8853-69-87 09:43:00 Test Item Value Reference Range Interpretation Comments Eosinophils (test code = Eosinophils) 1.6 <=4.0 [facility] AreaUkonwiyLQAADKEYSF5179-54-33 09:43:00 Test Item Value Reference Range Interpretation Comments Basophils (test code = Basophils) 0.4 <=1.0 [facility] AreaSwqeyvdSJYBQDJSPC1972-88-36 09:43:00 Test Item Value Reference Range Interpretation Comments Segs-Bands # (test code = Segs-Bands #) 10.1 1.5-8.1 [facility] AreaOvcwdkrIRQMKSFAPD5086-41-23 09:43:00 Test Item Value Reference Range Interpretation Comments Lymphocytes (test code = Lymphocytes) 17.7 20.0-40.0 [facility] AreaZasqwzxEXSBUUMUZL1059-99-38 09:43:00 Test Item Value Reference Range Interpretation Comments Segs (test code = Segs) 71.6 45.0-75.0 [facility] AreaTmlnyiqHJZYNEKNMU2139-00-60 09:43:00 Test Item Value Reference Range Interpretation Comments MPV (test code = MPV) 8.4 7.4-10.4 [facility] AreaXguvazpDXCSPYKSLM1227-59-56 09:43:00 Test Item Value Reference Range Interpretation Comments Platelet (test code = Platelet) 211 133-450 [facility] AreaAhzlbwjNAYCHABTFE6737-82-52 09:43:00 Test Item Value Reference Range Interpretation Comments WBC (test code = WBC) 14.1 3.7-10.4 [facility] AreaGgzeioiZTEOQOUNYJ9294-16-37 09:43:00 Test Item Value Reference Range Interpretation Comments RBC (test code = RBC) 4.43 4.70-6.10 [facility] AreaIqnbjnfPADGXAXXAB2533-65-52 09:43:00 Test Item Value Reference Range Interpretation Comments Hgb (test code = Hgb) 13.3 14.0-18.0 [facility] AreaLtgomkaQVNWJZDPGK6204-78-32 09:43:00 Test Item Value Reference Range Interpretation Comments MCV (test code = MCV) 90.8 80.0-94.0 [facility] AreaOtcfyeuVACHWHHUSU0618-50-99 09:43:00 Test Item Value Reference Range Interpretation Comments MCHC (test code = MCHC) 33.1 32.0-36.0 [facility] AreaPjiclziQDNMNBKCIV7760-64-17 09:43:00 Test Item Value Reference Range Interpretation Comments MCH (test code = MCH) 30.0 pg 27.0-31.0 [facility] AreaHmntcvqRJHKHRDESG9502-73-31 09:43:00 Test Item Value Reference Range Interpretation Comments RDW (test code = RDW) 14.6 11.5-14.5 [facility] AreaLvtjjizLGUWTAKSYN9735-41-60 09:43:00 Test Item Value Reference Range Interpretation Comments Hct (test code = Hct) 40.2 42.0-54.0 [facility]2017-08-09 09:43:00 Test Item Value Reference Range Interpretation Comments eGFR (test code = eGFR) 53 [facility]2017-08-09 09:43:00 Test Item Value Reference Range Interpretation Comments Glucose Lvl (test code = Glucose Lvl) 116 70-99 [place] 616067-08-09 09:43:00 Test Item Value Reference Range Interpretation Comments BUN (test code = BUN) 18 7-22 [facility]2017-08-09 09:43:00 Test Item Value Reference Range Interpretation Comments Creatinine Lvl (test code = Creatinine 1.50 0.50-1.40 Lvl) [facility]2017-08-09 09:43:00 Test Item Value Reference Range Interpretation Comments Potassium Lvl (test code = Potassium 3.9 3.5-5.1 Lvl) [facility]2017-08-09 09:43:00 Test Item Value Reference Range Interpretation Comments Sodium Lvl (test code = Sodium Lvl) 137 135-145 [facility]2017-08-09 09:43:00 Test Item Value Reference Range Interpretation Comments Calcium Lvl (test code = Calcium Lvl) 7.9 8.5-10.5 [facility]2017-08-09 09:43:00 Test Item Value Reference Range Interpretation Comments CO2 (test code = CO2) 24 24-32 [facility]2017-08-09 09:43:00 Test Item Value Reference Range Interpretation Comments Chloride Lvl (test code = Chloride Lvl) 104 95-109 [facility]2017-08-09 09:43:00 Test Item Value Reference Range Interpretation Comments AGAP (test code = AGAP) 12.9 10.0-20.0 [facility] AreaRnmdqrnBBQHWOKXVD4491-63-04 09:43:00 Test Item Value Reference Range Interpretation Comments Basophils # (test code = Basophils #) 0.1 <=0.2 [facility] AreaNajqysvYFLRXAWQRS9273-59-20 09:43:00 Test Item Value Reference Range Interpretation Comments Monocytes # (test code = Monocytes #) 1.2 <=0.8 [facility] AreaBcrxedtXSQRGQGWGG4019-67-42 09:43:00 Test Item Value Reference Range Interpretation Comments Eosinophils # (test code = Eosinophils 0.2 <=0.5 #) [facility] AreaDjolwsoEPPOKBHFXN5632-71-12 09:43:00 Test Item Value Reference Range Interpretation Comments Lymphocytes # (test code = Lymphocytes 2.5 1.0-5.5 #) [facility] AreaPxnlxnpNLLZXAFUQN5542-33-22 09:43:00 Test Item Value Reference Range Interpretation Comments Monocytes (test code = Monocytes) 8.7 2.0-12.0 [facility] AreaRgvtjxiSROEKGSJHT0711-93-67 09:43:00 Test Item Value Reference Range Interpretation Comments Eosinophils (test code = Eosinophils) 1.6 <=4.0 [facility] AreaIcvyxoiKFFILGNVYU7480-57-84 09:43:00 Test Item Value Reference Range Interpretation Comments Basophils (test code = Basophils) 0.4 <=1.0 [facility] AreaKxcaajfGFMWFOZNYZ1156-42-75 09:43:00 Test Item Value Reference Range Interpretation Comments Segs-Bands # (test code = Segs-Bands #) 10.1 1.5-8.1 [facility] AreaBvocjbpIHETPCYAYZ4559-98-35 09:43:00 Test Item Value Reference Range Interpretation Comments Lymphocytes (test code = Lymphocytes) 17.7 20.0-40.0 [facility] AreaYobkomzBSCVMOXZFB9644-34-74 09:43:00 Test Item Value Reference Range Interpretation Comments Segs (test code = Segs) 71.6 45.0-75.0 [facility] AreaYbmmxduIVHIIQZVNY9717-22-13 09:43:00 Test Item Value Reference Range Interpretation Comments MPV (test code = MPV) 8.4 7.4-10.4 [facility] AreaOhydevgUFIPVQHKBX3270-62-90 09:43:00 Test Item Value Reference Range Interpretation Comments Platelet (test code = Platelet) 211 133-450 [facility] AreaTmyqpmkJZUQHDCUZK7093-30-23 09:43:00 Test Item Value Reference Range Interpretation Comments WBC (test code = WBC) 14.1 3.7-10.4 [facility] AreaTzfhlcuHFEQIMQZFZ0930-25-73 09:43:00 Test Item Value Reference Range Interpretation Comments RBC (test code = RBC) 4.43 4.70-6.10 [facility] AreaZevgfjhYYHKZYFFBD8590-66-80 09:43:00 Test Item Value Reference Range Interpretation Comments Hgb (test code = Hgb) 13.3 14.0-18.0 [facility] AreaOmxpngpKUEHPRXRCV3243-71-85 09:43:00 Test Item Value Reference Range Interpretation Comments MCV (test code = MCV) 90.8 80.0-94.0 [facility] AreaUyatvkgZJRHNLNQGG0805-69-12 09:43:00 Test Item Value Reference Range Interpretation Comments MCHC (test code = MCHC) 33.1 32.0-36.0 [facility] AreaHkpiuaqYEODHBRTEK8369-60-66 09:43:00 Test Item Value Reference Range Interpretation Comments MCH (test code = MCH) 30.0 pg 27.0-31.0 [facility] AreaEsslpgvVOBIDCJNLJ6244-50-08 09:43:00 Test Item Value Reference Range Interpretation Comments RDW (test code = RDW) 14.6 11.5-14.5 [facility] AreaTkilicjRGKTXEWDMY6661-15-39 09:43:00 Test Item Value Reference Range Interpretation Comments Hct (test code = Hct) 40.2 42.0-54.0 [facility]2017-08-09 09:43:00 Test Item Value Reference Range Interpretation Comments eGFR (test code = eGFR) 53 [facility]2017-08-09 09:43:00 Test Item Value Reference Range Interpretation Comments Glucose Lvl (test code = Glucose Lvl) 116 70-99 [facility]2017-08-09 09:43:00 Test Item Value Reference Range Interpretation Comments BUN (test code = BUN) 18 7-22 [facility]2017-08-09 09:43:00 Test Item Value Reference Range Interpretation Comments Creatinine Lvl (test code = Creatinine 1.50 0.50-1.40 Lvl) [facility]2017-08-09 09:43:00 Test Item Value Reference Range Interpretation Comments Potassium Lvl (test code = Potassium 3.9 3.5-5.1 Lvl) [facility]2017-08-09 09:43:00 Test Item Value Reference Range Interpretation Comments Sodium Lvl (test code = Sodium Lvl) 137 135-145 [facility]2017-08-09 09:43:00 Test Item Value Reference Range Interpretation Comments Calcium Lvl (test code = Calcium Lvl) 7.9 8.5-10.5 [facility]2017-08-09 09:43:00 Test Item Value Reference Range Interpretation Comments CO2 (test code = CO2) 24 24-32 [facility]2017-08-09 09:43:00 Test Item Value Reference Range Interpretation Comments Chloride Lvl (test code = Chloride Lvl) 104 95-109 [facility]2017-08-09 09:43:00 Test Item Value Reference Range Interpretation Comments AGAP (test code = AGAP) 12.9 10.0-20.0 [facility] AreaMizoqgdCSBKMNHYIG2402-12-61 09:43:00 Test Item Value Reference Range Interpretation Comments Basophils # (test code = Basophils #) 0.1 <=0.2 [facility] AreaZjzrxviUGGOITJAQO6272-59-80 09:43:00 Test Item Value Reference Range Interpretation Comments Monocytes # (test code = Monocytes #) 1.2 <=0.8 [facility] AreaDsdtxkxEIXMLVGNGX7644-55-54 09:43:00 Test Item Value Reference Range Interpretation Comments Eosinophils # (test code = Eosinophils 0.2 <=0.5 #) [facility] AreaPiapyxlMEXDEFVWOE7500-94-70 09:43:00 Test Item Value Reference Range Interpretation Comments Lymphocytes # (test code = Lymphocytes 2.5 1.0-5.5 #) [facility] AreaEsgiyinHKVTLZZFSX6591-37-87 09:43:00 Test Item Value Reference Range Interpretation Comments Monocytes (test code = Monocytes) 8.7 2.0-12.0 [facility] AreaNpyjrhkZLXXIARIRZ1109-83-87 09:43:00 Test Item Value Reference Range Interpretation Comments Eosinophils (test code = Eosinophils) 1.6 <=4.0 [facility] AreaDhrolxeBTGOMKYUUI4498-09-74 09:43:00 Test Item Value Reference Range Interpretation Comments Basophils (test code = Basophils) 0.4 <=1.0 [facility] AreaGsuawqnOFQYXXJIHB2025-18-64 09:43:00 Test Item Value Reference Range Interpretation Comments Segs-Bands # (test code = Segs-Bands #) 10.1 1.5-8.1 [facility] AreaJsbmaiiEMYJJDXCHL2668-84-06 09:43:00 Test Item Value Reference Range Interpretation Comments Lymphocytes (test code = Lymphocytes) 17.7 20.0-40.0 [facility] AreaUreavefRMRJSAWCAG4237-63-32 09:43:00 Test Item Value Reference Range Interpretation Comments Segs (test code = Segs) 71.6 45.0-75.0 [facility] AreaXxgwauqPQGTCVBZAI7373-36-87 09:43:00 Test Item Value Reference Range Interpretation Comments MPV (test code = MPV) 8.4 7.4-10.4 [facility] AreaIijzclfLUEWSGUWQM4559-24-95 09:43:00 Test Item Value Reference Range Interpretation Comments Platelet (test code = Platelet) 211 133-450 [facility] AreaGetqzztGGZBTADLSS5671-51-41 09:43:00 Test Item Value Reference Range Interpretation Comments WBC (test code = WBC) 14.1 3.7-10.4 [facility] AreaUmozcniAFCNDXDECR5295-20-47 09:43:00 Test Item Value Reference Range Interpretation Comments RBC (test code = RBC) 4.43 4.70-6.10 [facility] AreaZkilxzkWFGUZITOPH0529-42-98 09:43:00 Test Item Value Reference Range Interpretation Comments Hgb (test code = Hgb) 13.3 14.0-18.0 [facility] AreaUhotpysLRTXPVDCZU4645-30-70 09:43:00 Test Item Value Reference Range Interpretation Comments MCV (test code = MCV) 90.8 80.0-94.0 [facility] AreaIzwtjqpPDGWHZWERD6907-43-24 09:43:00 Test Item Value Reference Range Interpretation Comments MCHC (test code = MCHC) 33.1 32.0-36.0 [facility] AreaLwmjaiqTNALWASKNQ7095-01-50 09:43:00 Test Item Value Reference Range Interpretation Comments MCH (test code = MCH) 30.0 pg 27.0-31.0 [facility] AreaBwwkxgqTCXCCERGZK4180-53-84 09:43:00 Test Item Value Reference Range Interpretation Comments RDW (test code = RDW) 14.6 11.5-14.5 [facility] AreaEqcbjypAFBNOJBUCM8523-09-61 09:43:00 Test Item Value Reference Range Interpretation Comments Hct (test code = Hct) 40.2 42.0-54.0 [facility]2017-08-09 09:43:00 Test Item Value Reference Range Interpretation Comments eGFR (test code = eGFR) 53 [facility]2017-08-09 09:43:00 Test Item Value Reference Range Interpretation Comments Glucose Lvl (test code = Glucose Lvl) 116 70-99 [facility]2017-08-09 09:43:00 Test Item Value Reference Range Interpretation Comments BUN (test code = BUN) 18 7-22 [facility]2017-08-09 09:43:00 Test Item Value Reference Range Interpretation Comments Creatinine Lvl (test code = Creatinine 1.50 0.50-1.40 Lvl) [facility]2017-08-09 09:43:00 Test Item Value Reference Range Interpretation Comments Potassium Lvl (test code = Potassium 3.9 3.5-5.1 Lvl) [facility]2017-08-09 09:43:00 Test Item Value Reference Range Interpretation Comments Sodium Lvl (test code = Sodium Lvl) 137 135-145 [facility]2017-08-09 09:43:00 Test Item Value Reference Range Interpretation Comments Calcium Lvl (test code = Calcium Lvl) 7.9 8.5-10.5 [facility]2017-08-09 09:43:00 Test Item Value Reference Range Interpretation Comments CO2 (test code = CO2) 24 24-32 [facility]2017-08-09 09:43:00 Test Item Value Reference Range Interpretation Comments Chloride Lvl (test code = Chloride Lvl) 104 95-109 [facility]2017-08-09 09:43:00 Test Item Value Reference Range Interpretation Comments AGAP (test code = AGAP) 12.9 10.0-20.0 [facility] AreaDuxonglCKTGTBRGFK1725-39-32 09:43:00 Test Item Value Reference Range Interpretation Comments Basophils # (test code = Basophils #) 0.1 <=0.2 [facility] AreaLvzdxmpTPAYYKSXOX5340-09-93 09:43:00 Test Item Value Reference Range Interpretation Comments Monocytes # (test code = Monocytes #) 1.2 <=0.8 [facility] AreaHryfjgePMLIFJENGT2593-80-96 09:43:00 Test Item Value Reference Range Interpretation Comments Eosinophils # (test code = Eosinophils 0.2 <=0.5 #) [facility] AreaOsklyjjXXSDNWGKDD7073-82-47 09:43:00 Test Item Value Reference Range Interpretation Comments Lymphocytes # (test code = Lymphocytes 2.5 1.0-5.5 #) [facility] AreaSuxphtkRPKGSLZNJL0955-08-21 09:43:00 Test Item Value Reference Range Interpretation Comments Monocytes (test code = Monocytes) 8.7 2.0-12.0 [facility] AreaJdtakriIJKSFDEFPC8304-31-80 09:43:00 Test Item Value Reference Range Interpretation Comments Eosinophils (test code = Eosinophils) 1.6 <=4.0 [facility] AreaCdzscysKSZBMCSESZ7191-48-46 09:43:00 Test Item Value Reference Range Interpretation Comments Basophils (test code = Basophils) 0.4 <=1.0 [facility] AreaTetplarPFAOQQZSRR3032-29-34 09:43:00 Test Item Value Reference Range Interpretation Comments Segs-Bands # (test code = Segs-Bands #) 10.1 1.5-8.1 [facility] AreaElybyetCOHLHBKSIR4379-65-52 09:43:00 Test Item Value Reference Range Interpretation Comments Lymphocytes (test code = Lymphocytes) 17.7 20.0-40.0 [facility] AreaWpttohcFJCQFEHAFW6990-68-05 09:43:00 Test Item Value Reference Range Interpretation Comments Segs (test code = Segs) 71.6 45.0-75.0 [facility] AreaNwjmvduPKGHWUFBDF5755-90-39 09:43:00 Test Item Value Reference Range Interpretation Comments MPV (test code = MPV) 8.4 7.4-10.4 [facility]2017-08-09 09:43:00 Test Item Value Reference Range Interpretation Comments eGFR (test code = eGFR) 53 [facility] AreaWelcnbvTCAZNFIKVW9997-64-00 09:43:00 Test Item Value Reference Range Interpretation Comments Platelet (test code = Platelet) 211 133-450 [facility] AreaWdadykfDRARPKRTLH5872-76-16 09:43:00 Test Item Value Reference Range Interpretation Comments WBC (test code = WBC) 14.1 3.7-10.4 [facility] AreaMqwktroKVJRUKGJBL4103-58-01 09:43:00 Test Item Value Reference Range Interpretation Comments RBC (test code = RBC) 4.43 4.70-6.10 [facility] AreaHtmhzmeLFUHAOOVHP6618-37-67 09:43:00 Test Item Value Reference Range Interpretation Comments Hgb (test code = Hgb) 13.3 14.0-18.0 [facility] AreaGdojivuPROPLJSCHQ6297-72-70 09:43:00 Test Item Value Reference Range Interpretation Comments MCV (test code = MCV) 90.8 80.0-94.0 [facility] AreaKztswneYNUWCLHVBS9723-63-65 09:43:00 Test Item Value Reference Range Interpretation Comments MCHC (test code = MCHC) 33.1 32.0-36.0 [facility] AreaAbxqzguUAIKZUQONS1146-93-40 09:43:00 Test Item Value Reference Range Interpretation Comments MCH (test code = MCH) 30.0 pg 27.0-31.0 [facility] AreaSqbrqouHKGDUZKGCJ8415-64-63 09:43:00 Test Item Value Reference Range Interpretation Comments RDW (test code = RDW) 14.6 11.5-14.5 [facility] AreaYcgngwpQHMDVGCHLB4370-40-81 09:43:00 Test Item Value Reference Range Interpretation Comments Hct (test code = Hct) 40.2 42.0-54.0 [facility]2017-08-09 09:43:00 Test Item Value Reference Range Interpretation Comments Glucose Lvl (test code = Glucose Lvl) 116 70-99 [facility]2017-08-09 09:43:00 Test Item Value Reference Range Interpretation Comments BUN (test code = BUN) 18 7-22 [facility]2017-08-09 09:43:00 Test Item Value Reference Range Interpretation Comments Creatinine Lvl (test code = Creatinine 1.50 0.50-1.40 Lvl) [facility]2017-08-09 09:43:00 Test Item Value Reference Range Interpretation Comments Potassium Lvl (test code = Potassium 3.9 3.5-5.1 Lvl) [facility]2017-08-09 09:43:00 Test Item Value Reference Range Interpretation Comments Sodium Lvl (test code = Sodium Lvl) 137 135-145 [facility]2017-08-09 09:43:00 Test Item Value Reference Range Interpretation Comments Calcium Lvl (test code = Calcium Lvl) 7.9 8.5-10.5 [facility]2017-08-09 09:43:00 Test Item Value Reference Range Interpretation Comments CO2 (test code = CO2) 24 24-32 [facility]2017-08-09 09:43:00 Test Item Value Reference Range Interpretation Comments Chloride Lvl (test code = Chloride Lvl) 104 95-109 [facility]2017-08-09 09:43:00 Test Item Value Reference Range Interpretation Comments AGAP (test code = AGAP) 12.9 10.0-20.0 [facility] AreaBvjhnkfXUFONFJLAA1625-69-49 09:43:00 Test Item Value Reference Range Interpretation Comments Basophils # (test code 0.1 See_Comment [Aut omated message] The = Basophils #) system which generated this result tra nsmitted reference range : <=0.2. The reference r mary was not used to int erpret this result as normal/abnormal . [facility] AreaQtgqeyuOQHCMEOUWM0039-07-97 09:43:00 Test Item Value Reference Range Interpretation Comments Monocytes # (test code 1.2 See_Comment [Aut omated message] The = Monocytes #) system which generated this result tra nsmitted reference range : <=0.8. The reference r mary was not used to int erpret this result as normal/abnormal . [facility] AreaVpaxgfsBLJMUCQXAK1456-59-65 09:43:00 Test Item Value Reference Range Interpretation Comments Eosinophils # (test code 0.2 See_Comment [A utomated message] The = Eosinophils #) system whic h generated this result tra nsmitted reference range : <=0.5. The reference r mary was not used to int erpret this result as normal/abnormal . [facility] AreaNnhjdhsBCEKCPNJSW8100-99-09 09:43:00 Test Item Value Reference Range Interpretation Comments Lymphocytes # (test code = Lymphocytes 2.5 1.0-5.5 #) [facility] AreaLswdkurSWLENPMSOJ6367-19-00 09:43:00 Test Item Value Reference Range Interpretation Comments Monocytes (test code = Monocytes) 8.7 2.0-12.0 [facility] AreaVusriuiKOQUHUEJRC7677-95-05 09:43:00 Test Item Value Reference Range Interpretation Comments Eosinophils (test code = 1.6 See_Comment [A utomated message] The Eosinophils) system which ge nerated this result tra nsmitted reference range : <=4.0. The reference r mary was not used to int erpret this result as normal/abnormal . [facility] AreaErdxmnzRVVUFDGTOR6344-44-80 09:43:00 Test Item Value Reference Range Interpretation Comments Basophils (test code = 0.4 See_Comment [Aut omated message] The Basophils) system which ge nerated this result tra nsmitted reference range : <=1.0. The reference r mary was not used to int erpret this result as normal/abnormal . [facility] AreaEfsleklTBOBVYXAOZ7391-54-64 09:43:00 Test Item Value Reference Range Interpretation Comments Segs-Bands # (test code = Segs-Bands #) 10.1 1.5-8.1 [facility] AreaKqinjzzQPZUZRDSLI8046-20-24 09:43:00 Test Item Value Reference Range Interpretation Comments Lymphocytes (test code = Lymphocytes) 17.7 20.0-40.0 [facility] AreaCzzpztpUICRQAASIW6979-55-09 09:43:00 Test Item Value Reference Range Interpretation Comments Segs (test code = Segs) 71.6 45.0-75.0 [facility] AreaYtngbdcAEHJIQMDTM1240-55-47 09:43:00 Test Item Value Reference Range Interpretation Comments MPV (test code = MPV) 8.4 7.4-10.4 [facility] AreaJewvbsqIXPPJZECNX2697-19-98 09:43:00 Test Item Value Reference Range Interpretation Comments Platelet (test code = Platelet) 211 133-450 [facility] AreaOyvhbgvWPTWMWYWOY8007-17-92 09:43:00 Test Item Value Reference Range Interpretation Comments WBC (test code = WBC) 14.1 3.7-10.4 [facility] AreaLchoclcKCVRHWBQTW2321-82-56 09:43:00 Test Item Value Reference Range Interpretation Comments RBC (test code = RBC) 4.43 4.70-6.10 [facility] AreaEobcopnTSGJIXYNCG8977-58-78 09:43:00 Test Item Value Reference Range Interpretation Comments Hgb (test code = Hgb) 13.3 14.0-18.0 [facility] AreaChwraxnQSKNUCYUZY6545-30-49 09:43:00 Test Item Value Reference Range Interpretation Comments MCV (test code = MCV) 90.8 80.0-94.0 [facility] AreaQwepcpxDOWHIXQTWS4969-47-26 09:43:00 Test Item Value Reference Range Interpretation Comments MCHC (test code = MCHC) 33.1 32.0-36.0 [facility] AreaFmucoxjVAQWORKGBU5992-26-56 09:43:00 Test Item Value Reference Range Interpretation Comments MCH (test code = MCH) 30.0 pg 27.0-31.0 [facility] AreaEirnlbcEQKGBDTHON2254-23-45 09:43:00 Test Item Value Reference Range Interpretation Comments RDW (test code = RDW) 14.6 11.5-14.5 [facility] AreaCrtpnqkKRWJREGCFT9771-57-58 09:43:00 Test Item Value Reference Range Interpretation Comments Hct (test code = Hct) 40.2 42.0-54.0 [facility]2017-08-09 09:43:00 Test Item Value Reference Range Interpretation Comments eGFR (test code = eGFR) 53 [facility]2017-08-09 09:43:00 Test Item Value Reference Range Interpretation Comments Glucose Lvl (test code = Glucose Lvl) 116 70-99 [facility]2017-08-09 09:43:00 Test Item Value Reference Range Interpretation Comments BUN (test code = BUN) 18 7-22 [facility]2017-08-09 09:43:00 Test Item Value Reference Range Interpretation Comments Creatinine Lvl (test code = Creatinine 1.50 0.50-1.40 Lvl) [facility]2017-08-09 09:43:00 Test Item Value Reference Range Interpretation Comments Potassium Lvl (test code = Potassium 3.9 3.5-5.1 Lvl) [facility]2017-08-09 09:43:00 Test Item Value Reference Range Interpretation Comments Sodium Lvl (test code = Sodium Lvl) 137 135-145 [facility]2017-08-09 09:43:00 Test Item Value Reference Range Interpretation Comments Calcium Lvl (test code = Calcium Lvl) 7.9 8.5-10.5 [facility]2017-08-09 09:43:00 Test Item Value Reference Range Interpretation Comments CO2 (test code = CO2) 24 24-32 [facility]2017-08-09 09:43:00 Test Item Value Reference Range Interpretation Comments Chloride Lvl (test code = Chloride Lvl) 104 95-109 [facility]2017-08-09 09:43:00 Test Item Value Reference Range Interpretation Comments AGAP (test code = AGAP) 12.9 10.0-20.0 [facility] AreaVpwpqubYPNQDFNGKK0776-44-97 09:43:00 Test Item Value Reference Range Interpretation Comments Basophils # (test code 0.1 See_Comment [Aut omated message] The = Basophils #) system which generated this result tra nsmitted reference range : <=0.2. The reference r mary was not used to int erpret this result as normal/abnormal . [facility] AreaWuxzdptGEOJGXOYZI3684-78-79 09:43:00 Test Item Value Reference Range Interpretation Comments Monocytes # (test code 1.2 See_Comment [Aut omated message] The = Monocytes #) system which generated this result tra nsmitted reference range : <=0.8. The reference r mary was not used to int erpret this result as normal/abnormal . [facility] AreaXwobyzaVVTVACGAZK6866-58-99 09:43:00 Test Item Value Reference Range Interpretation Comments Eosinophils # (test code 0.2 See_Comment [A utomated message] The = Eosinophils #) system whic h generated this result tra nsmitted reference range : <=0.5. The reference r mary was not used to int erpret this result as normal/abnormal . [facility] AreaWxuaaevLMLLJFROWU4810-25-77 09:43:00 Test Item Value Reference Range Interpretation Comments Lymphocytes # (test code = Lymphocytes 2.5 1.0-5.5 #) [facility] AreaQszftscDXOBNLZMQU6018-18-07 09:43:00 Test Item Value Reference Range Interpretation Comments Monocytes (test code = Monocytes) 8.7 2.0-12.0 [facility] AreaQkoqeqmDKXFUIWDEB3324-49-08 09:43:00 Test Item Value Reference Range Interpretation Comments Eosinophils (test code = 1.6 See_Comment [A utomated message] The Eosinophils) system which ge nerated this result tra nsmitted reference range : <=4.0. The reference r mary was not used to int erpret this result as normal/abnormal . [facility] AreaOvikturRHRCMCUIQL7604-77-44 09:43:00 Test Item Value Reference Range Interpretation Comments Basophils (test code = 0.4 See_Comment [Aut omated message] The Basophils) system which ge nerated this result tra nsmitted reference range : <=1.0. The reference r mary was not used to int erpret this result as normal/abnormal . [facility] AreaWupplqaMGDBMTPFZI0926-77-91 09:43:00 Test Item Value Reference Range Interpretation Comments Segs-Bands # (test code = Segs-Bands #) 10.1 1.5-8.1 [facility] AreaXhquxzsCNDRGMZNDF6873-73-18 09:43:00 Test Item Value Reference Range Interpretation Comments Lymphocytes (test code = Lymphocytes) 17.7 20.0-40.0 [facility] AreaNglanyiTCVZHTFPIQ7004-59-22 09:43:00 Test Item Value Reference Range Interpretation Comments Segs (test code = Segs) 71.6 45.0-75.0 [facility] AreaIvkazafCXYQFSJYYF6448-64-01 09:43:00 Test Item Value Reference Range Interpretation Comments MPV (test code = MPV) 8.4 7.4-10.4 [facility] AreaXxloqcvXUNBZNEZSA1798-19-56 09:43:00 Test Item Value Reference Range Interpretation Comments Platelet (test code = Platelet) 211 133-450 [facility] AreaLhynoxfQTKEECLMLS9261-16-09 09:43:00 Test Item Value Reference Range Interpretation Comments WBC (test code = WBC) 14.1 3.7-10.4 [facility] AreaJiietdqADPEOCLHPS2559-63-36 09:43:00 Test Item Value Reference Range Interpretation Comments RBC (test code = RBC) 4.43 4.70-6.10 [facility] AreaPlppuhwYMMTJIIYPO2077-14-85 09:43:00 Test Item Value Reference Range Interpretation Comments Hgb (test code = Hgb) 13.3 14.0-18.0 [facility] AreaYdqdouoTDHFJFHXXI7605-57-65 09:43:00 Test Item Value Reference Range Interpretation Comments MCV (test code = MCV) 90.8 80.0-94.0 [facility] AreaIwhdmfgETEDBJAUXV2372-91-11 09:43:00 Test Item Value Reference Range Interpretation Comments MCHC (test code = MCHC) 33.1 32.0-36.0 [facility] AreaVicubncETVSRWXBNP1110-93-41 09:43:00 Test Item Value Reference Range Interpretation Comments MCH (test code = MCH) 30.0 pg 27.0-31.0 [facility] AreaLdbjnzvZMMZVFJGYJ1302-30-01 09:43:00 Test Item Value Reference Range Interpretation Comments RDW (test code = RDW) 14.6 11.5-14.5 [facility] AreaWmxlgbkJZXNMSDUUA4320-24-79 09:43:00 Test Item Value Reference Range Interpretation Comments Hct (test code = Hct) 40.2 42.0-54.0 [facility]2017-08-09 09:43:00 Test Item Value Reference Range Interpretation Comments eGFR (test code = eGFR) 53 [facility]2017-08-09 09:43:00 Test Item Value Reference Range Interpretation Comments Glucose Lvl (test code = Glucose Lvl) 116 70-99 [facility]2017-08-09 09:43:00 Test Item Value Reference Range Interpretation Comments BUN (test code = BUN) 18 7-22 [facility]2017-08-09 09:43:00 Test Item Value Reference Range Interpretation Comments Creatinine Lvl (test code = Creatinine 1.50 0.50-1.40 Lvl) [facility]2017-08-09 09:43:00 Test Item Value Reference Range Interpretation Comments Potassium Lvl (test code = Potassium 3.9 3.5-5.1 Lvl) [facility]2017-08-09 09:43:00 Test Item Value Reference Range Interpretation Comments Sodium Lvl (test code = Sodium Lvl) 137 135-145 [facility]2017-08-09 09:43:00 Test Item Value Reference Range Interpretation Comments Calcium Lvl (test code = Calcium Lvl) 7.9 8.5-10.5 [facility]2017-08-09 09:43:00 Test Item Value Reference Range Interpretation Comments CO2 (test code = CO2) 24 24-32 [facility]2017-08-09 09:43:00 Test Item Value Reference Range Interpretation Comments Chloride Lvl (test code = Chloride Lvl) 104 95-109 [facility]2017-08-09 09:43:00 Test Item Value Reference Range Interpretation Comments AGAP (test code = AGAP) 12.9 10.0-20.0 [facility] AreaDpkqlxuPGORGKMRJW9130-82-70 09:43:00 Test Item Value Reference Range Interpretation Comments Basophils # (test code 0.1 See_Comment [Aut omated message] The = Basophils #) system which generated this result tra nsmitted reference range : <=0.2. The reference r mary was not used to int erpret this result as normal/abnormal . [facility] AreaIuyahgwTHDVOXRWAG9329-38-15 09:43:00 Test Item Value Reference Range Interpretation Comments Monocytes # (test code 1.2 See_Comment [Aut omated message] The = Monocytes #) system which generated this result tra nsmitted reference range : <=0.8. The reference r mary was not used to int erpret this result as normal/abnormal . [facility] AreaFrasoluIEAWAQACFZ8934-83-17 09:43:00 Test Item Value Reference Range Interpretation Comments Eosinophils # (test code 0.2 See_Comment [A utomated message] The = Eosinophils #) system whic h generated this result tra nsmitted reference range : <=0.5. The reference r mary was not used to int erpret this result as normal/abnormal . [facility] AreaIzgjhesXXAJKULUHR0218-42-34 09:43:00 Test Item Value Reference Range Interpretation Comments Lymphocytes # (test code = Lymphocytes 2.5 1.0-5.5 #) [facility] AreaVucizpkJFFPXDFMWY9166-96-02 09:43:00 Test Item Value Reference Range Interpretation Comments Monocytes (test code = Monocytes) 8.7 2.0-12.0 [facility] AreaRmexyekHFSTXCLUCW6537-13-67 09:43:00 Test Item Value Reference Range Interpretation Comments Eosinophils (test code = 1.6 See_Comment [A utomated message] The Eosinophils) system which ge nerated this result tra nsmitted reference range : <=4.0. The reference r mary was not used to int erpret this result as normal/abnormal . [facility] AreaYxkfrwyAZUQXZABRH2390-86-71 09:43:00 Test Item Value Reference Range Interpretation Comments Basophils (test code = 0.4 See_Comment [Aut omated message] The Basophils) system which ge nerated this result tra nsmitted reference range : <=1.0. The reference r mary was not used to int erpret this result as normal/abnormal . [facility] AreaQqwgwrcFDULXXSLQP4278-15-75 09:43:00 Test Item Value Reference Range Interpretation Comments Segs-Bands # (test code = Segs-Bands #) 10.1 1.5-8.1 [facility] AreaOpxfdorXUXWKTQMSK3482-38-99 09:43:00 Test Item Value Reference Range Interpretation Comments Lymphocytes (test code = Lymphocytes) 17.7 20.0-40.0 [facility] AreaIhaofdhHVBWHLPZMU8338-78-26 09:43:00 Test Item Value Reference Range Interpretation Comments Segs (test code = Segs) 71.6 45.0-75.0 [facility] AreaSqyotptHRXGWPJQGA7415-46-85 09:43:00 Test Item Value Reference Range Interpretation Comments MPV (test code = MPV) 8.4 7.4-10.4 [facility] AreaZkgeshjJAWPQMCJHV5358-30-78 09:43:00 Test Item Value Reference Range Interpretation Comments Platelet (test code = Platelet) 211 133-450 [facility] AreaNpmedmtAJYLVTUJYP6324-74-43 09:43:00 Test Item Value Reference Range Interpretation Comments WBC (test code = WBC) 14.1 3.7-10.4 [facility] AreaFuqmqxeMHBBVZQPGJ1714-06-92 09:43:00 Test Item Value Reference Range Interpretation Comments RBC (test code = RBC) 4.43 4.70-6.10 [facility] AreaWsrlgacFWDZDTQNVM3469-47-47 09:43:00 Test Item Value Reference Range Interpretation Comments Hgb (test code = Hgb) 13.3 14.0-18.0 [facility] AreaMbbsvpxQPWVKNDTSI3565-99-48 09:43:00 Test Item Value Reference Range Interpretation Comments MCV (test code = MCV) 90.8 80.0-94.0 [facility] AreaDuyshbmXLZDSTGURO8733-40-37 09:43:00 Test Item Value Reference Range Interpretation Comments MCHC (test code = MCHC) 33.1 32.0-36.0 [facility] AreaKxlkocxMSYWKESEFM0280-04-43 09:43:00 Test Item Value Reference Range Interpretation Comments MCH (test code = MCH) 30.0 pg 27.0-31.0 [facility] AreaJbjwvanCPEZASAQNB4376-62-95 09:43:00 Test Item Value Reference Range Interpretation Comments RDW (test code = RDW) 14.6 11.5-14.5 [facility] AreaWzaqxxfRBSRJSHGAI1670-74-26 09:43:00 Test Item Value Reference Range Interpretation Comments Hct (test code = Hct) 40.2 42.0-54.0 [facility]2017-08-09 09:43:00 Test Item Value Reference Range Interpretation Comments eGFR (test code = eGFR) 53 [facility]2017-08-09 09:43:00 Test Item Value Reference Range Interpretation Comments Glucose Lvl (test code = Glucose Lvl) 116 70-99 [facility]2017-08-09 09:43:00 Test Item Value Reference Range Interpretation Comments BUN (test code = BUN) 18 7-22 [facility]2017-08-09 09:43:00 Test Item Value Reference Range Interpretation Comments Creatinine Lvl (test code = Creatinine 1.50 0.50-1.40 Lvl) [facility]2017-08-09 09:43:00 Test Item Value Reference Range Interpretation Comments Potassium Lvl (test code = Potassium 3.9 3.5-5.1 Lvl) [facility]2017-08-09 09:43:00 Test Item Value Reference Range Interpretation Comments Sodium Lvl (test code = Sodium Lvl) 137 135-145 [facility]2017-08-09 09:43:00 Test Item Value Reference Range Interpretation Comments Calcium Lvl (test code = Calcium Lvl) 7.9 8.5-10.5 [facility]2017-08-09 09:43:00 Test Item Value Reference Range Interpretation Comments CO2 (test code = CO2) 24 24-32 [facility]2017-08-09 09:43:00 Test Item Value Reference Range Interpretation Comments Chloride Lvl (test code = Chloride Lvl) 104 95-109 [facility]2017-08-09 09:43:00 Test Item Value Reference Range Interpretation Comments AGAP (test code = AGAP) 12.9 10.0-20.0 [facility] AreaYqcepcwVLBAEDMJOD0904-78-54 09:43:00 Test Item Value Reference Range Interpretation Comments Basophils # (test code 0.1 See_Comment [Aut omated message] The = Basophils #) system which generated this result tra nsmitted reference range : <=0.2. The reference r mary was not used to int erpret this result as normal/abnormal . [facility] AreaUovhgejQPPCJKTPOA6799-58-36 09:43:00 Test Item Value Reference Range Interpretation Comments Monocytes # (test code 1.2 See_Comment [Aut omated message] The = Monocytes #) system which generated this result tra nsmitted reference range : <=0.8. The reference r mary was not used to int erpret this result as normal/abnormal . [facility] AreaQixecfxQFJRRCDAPA4736-51-30 09:43:00 Test Item Value Reference Range Interpretation Comments Eosinophils # (test code 0.2 See_Comment [A utomated message] The = Eosinophils #) system [facility] h generated this result tra nsmitted reference range : <=0.5. The reference r mary was not used to int erpret this result as normal/abnormal . [facility] AreaPhwzittIZFWOZGZMU9458-80-55 09:43:00 Test Item Value Reference Range Interpretation Comments Lymphocytes # (test code = Lymphocytes 2.5 1.0-5.5 #) [facility] AreaCwnvruhFECNPPNBXO0598-90-02 09:43:00 Test Item Value Reference Range Interpretation Comments Monocytes (test code = Monocytes) 8.7 2.0-12.0 [facility] AreaUoleiahYUVSYKYVPO2325-05-64 09:43:00 Test Item Value Reference Range Interpretation Comments Eosinophils (test code = 1.6 See_Comment [A utomated message] The Eosinophils) system which ge nerated this result tra nsmitted reference range : <=4.0. The reference r mary was not used to int erpret this result as normal/abnormal . [facility] AreaUymrzlzIRZPLCLTFX5191-72-55 09:43:00 Test Item Value Reference Range Interpretation Comments Basophils (test code = 0.4 See_Comment [Aut omated message] The Basophils) system which ge nerated this result tra nsmitted reference range : <=1.0. The reference r mary was not used to int erpret this result as normal/abnormal . [facility] AreaXcyaqnxNRWRSHDOAS5573-73-77 09:43:00 Test Item Value Reference Range Interpretation Comments Segs-Bands # (test code = Segs-Bands #) 10.1 1.5-8.1 [facility] AreaOvibrmlPHNPUOMVCQ3274-41-08 09:43:00 Test Item Value Reference Range Interpretation Comments Lymphocytes (test code = Lymphocytes) 17.7 20.0-40.0 [facility] AreaGunriebBSHDGANJNH3584-60-95 09:43:00 Test Item Value Reference Range Interpretation Comments Segs (test code = Segs) 71.6 45.0-75.0 [facility] AreaDtqqwtrWIISLECXFT3695-20-17 09:43:00 Test Item Value Reference Range Interpretation Comments MPV (test code = MPV) 8.4 7.4-10.4 [facility] AreaRbxhpzxQEFTXQLZLN6391-08-29 09:43:00 Test Item Value Reference Range Interpretation Comments Platelet (test code = Platelet) 211 133-450 [facility] AreaCszcobePOTLFNKZQB9506-89-44 09:43:00 Test Item Value Reference Range Interpretation Comments WBC (test code = WBC) 14.1 3.7-10.4 [facility] AreaMlxcyabUNCRLBSVKB6681-28-47 09:43:00 Test Item Value Reference Range Interpretation Comments RBC (test code = RBC) 4.43 4.70-6.10 [facility] AreaAckpdkoMOSHOLYYQM0373-94-94 09:43:00 Test Item Value Reference Range Interpretation Comments Hgb (test code = Hgb) 13.3 14.0-18.0 [facility] AreaNsyymdyLSAHZVLYFT3251-87-35 09:43:00 Test Item Value Reference Range Interpretation Comments MCV (test code = MCV) 90.8 80.0-94.0 [facility] AreaTathrunAFXXUOXIIJ6873-00-11 09:43:00 Test Item Value Reference Range Interpretation Comments MCHC (test code = MCHC) 33.1 32.0-36.0 [facility] AreaIbqcikkEBQGEOJETK2160-62-19 09:43:00 Test Item Value Reference Range Interpretation Comments MCH (test code = MCH) 30.0 pg 27.0-31.0 [facility] AreaCdvhwfdLULIRGUSDO6543-96-20 09:43:00 Test Item Value Reference Range Interpretation Comments RDW (test code = RDW) 14.6 11.5-14.5 [facility] AreaVhpjxkhXWVJQJYQGP5799-03-55 09:43:00 Test Item Value Reference Range Interpretation Comments Hct (test code = Hct) 40.2 42.0-54.0 [facility]2017-08-09 09:43:00 Test Item Value Reference Range Interpretation Comments eGFR (test code = eGFR) 53 [facility]2017-08-09 09:43:00 Test Item Value Reference Range Interpretation Comments Glucose Lvl (test code = Glucose Lvl) 116 70-99 [facility]2017-08-09 09:43:00 Test Item Value Reference Range Interpretation Comments BUN (test code = BUN) 18 7-22 [facility]2017-08-09 09:43:00 Test Item Value Reference Range Interpretation Comments Creatinine Lvl (test code = Creatinine 1.50 0.50-1.40 Lvl) [facility]2017-08-09 09:43:00 Test Item Value Reference Range Interpretation Comments Potassium Lvl (test code = Potassium 3.9 3.5-5.1 Lvl) [facility]2017-08-09 09:43:00 Test Item Value Reference Range Interpretation Comments Sodium Lvl (test code = Sodium Lvl) 137 135-145 [facility]2017-08-09 09:43:00 Test Item Value Reference Range Interpretation Comments Calcium Lvl (test code = Calcium Lvl) 7.9 8.5-10.5 [facility]2017-08-09 09:43:00 Test Item Value Reference Range Interpretation Comments CO2 (test code = CO2) 24 24-32 [facility]2017-08-09 09:43:00 Test Item Value Reference Range Interpretation Comments Chloride Lvl (test code = Chloride Lvl) 104 95-109 [facility]2017-08-09 09:43:00 Test Item Value Reference Range Interpretation Comments AGAP (test code = AGAP) 12.9 10.0-20.0 [facility] AreaQerjafuRDTDHJKGYV0086-03-37 09:43:00 Test Item Value Reference Range Interpretation Comments Basophils # (test code = Basophils #) 0.1 <=0.2 [facility] AreaHtfqntqCEWESSKAEJ3986-99-27 09:43:00 Test Item Value Reference Range Interpretation Comments Monocytes # (test code = Monocytes #) 1.2 <=0.8 [facility] AreaKbpgkeoJGQGMWMXKW5032-49-69 09:43:00 Test Item Value Reference Range Interpretation Comments Eosinophils # (test code = Eosinophils 0.2 <=0.5 #) [facility] AreaSrvgvmyBPQVEYWUCO2951-49-01 09:43:00 Test Item Value Reference Range Interpretation Comments Lymphocytes # (test code = Lymphocytes 2.5 1.0-5.5 #) [facility] AreaNuoftzmXQEOAJWIHD2428-98-17 09:43:00 Test Item Value Reference Range Interpretation Comments Monocytes (test code = Monocytes) 8.7 2.0-12.0 [facility] AreaIaxrcciYWDKAGKCSE8849-60-38 09:43:00 Test Item Value Reference Range Interpretation Comments Eosinophils (test code = Eosinophils) 1.6 <=4.0 [facility] AreaDkcohrwIWNILAMZQR1906-24-02 09:43:00 Test Item Value Reference Range Interpretation Comments Basophils (test code = Basophils) 0.4 <=1.0 [facility] AreaMbwvpczZZPBEZCONY1511-75-71 09:43:00 Test Item Value Reference Range Interpretation Comments Segs-Bands # (test code = Segs-Bands #) 10.1 1.5-8.1 [facility] AreaRvaklryJFNOXMIKUI7054-71-97 09:43:00 Test Item Value Reference Range Interpretation Comments Lymphocytes (test code = Lymphocytes) 17.7 20.0-40.0 [facility] AreaLtgccxrKMHLYGMNEP5417-13-47 09:43:00 Test Item Value Reference Range Interpretation Comments Segs (test code = Segs) 71.6 45.0-75.0 [facility] AreaOrcpiwlEHPILNQBCH4988-18-23 09:43:00 Test Item Value Reference Range Interpretation Comments MPV (test code = MPV) 8.4 7.4-10.4 [facility] AreaVjzjgxyBFTAROBUIP3241-93-60 09:43:00 Test Item Value Reference Range Interpretation Comments Platelet (test code = Platelet) 211 133-450 [facility] AreaYveakneNRGMZEPZRE3021-01-13 09:43:00 Test Item Value Reference Range Interpretation Comments WBC (test code = WBC) 14.1 3.7-10.4 [facility] AreaNrgkqlaGYPBBAHSJQ6476-50-96 09:43:00 Test Item Value Reference Range Interpretation Comments RBC (test code = RBC) 4.43 4.70-6.10 [facility] AreaPdikmkgKTPCYQKSIL2308-56-25 09:43:00 Test Item Value Reference Range Interpretation Comments Hgb (test code = Hgb) 13.3 14.0-18.0 [facility] AreaUzpyediDXKVDLEXZW9503-71-00 09:43:00 Test Item Value Reference Range Interpretation Comments MCV (test code = MCV) 90.8 80.0-94.0 [facility] AreaVpgfossIKFJVDLPUD9637-41-44 09:43:00 Test Item Value Reference Range Interpretation Comments MCHC (test code = MCHC) 33.1 32.0-36.0 [facility] AreaZhtddspLGFMFUPFFH8789-52-36 09:43:00 Test Item Value Reference Range Interpretation Comments MCH (test code = MCH) 30.0 pg 27.0-31.0 [facility] AreaZxiwyptJLPZQMZVUD7793-57-01 09:43:00 Test Item Value Reference Range Interpretation Comments RDW (test code = RDW) 14.6 11.5-14.5 [facility] AreaBiqevsoNOEAIKAJGR1574-90-42 09:43:00 Test Item Value Reference Range Interpretation Comments Hct (test code = Hct) 40.2 42.0-54.0 [facility]
--- NOTE | 2023-03-24 17:03 | RAD REPORT ---
EXAM DESCRIPTION: RADChest Single View03/24/2023 4:40 pm CLINICAL HISTORY: chest pain COMPARISON: 11/03/2022 TECHNIQUE: Portable AP view of the chest. FINDINGS: The lungs are clear. No pneumothorax or effusion. The cardiomediastinal contours are unre markable. IMPRESSION: No acute cardiopulmonary process.
[2023-03-24 17:24] LABS: Protime INR 1.59
[2023-03-24 17:25] LABS: Absolute Lymphocytes (CBC) 1.8 K/uL (0.7-4.9); Hematocrit 39.4 % (39.6-49.0); Lymphocytes % 12.4 % (15.3-44.8); MCV 77.5 fL (80-100); MPV 7.1 fL (7.6-11.3); Platelets 361 thou/uL (152-406); RBC Red Blood Cell Count 5.09 M/uL (4.33-5.43)
[2023-03-24 17:42] LABS: ALT/SGPT 11 U/L (16-61); Albumin 3.5 g/dL (3.4-5.0); Alkaline Phosphatase 84 U/L (45-117); BUN Blood Urea Nitrogen 22 mg/dL (7-18); Bicarbonate 27 mEq/L (21-32); Bilirubin Direct 0.2 mg/dL (0-0.2); Bilirubin Indirect, Calculated 0.4 mg/dL (0.2-0.8); Bilirubin Total 0.6 mg/dL (0.2-1.0); Glomerular Filtration Rate 54 ml/min (=/>90); Glucose Level 124 mg/dL (74-106); Magnesium 2.3 mg/dL (1.6-2.4); NT PRO-BNP 871 pg/mL (<125); Potassium 3.5 mEq/L (3.5-5.1); Protein, Total 8.2 g/dL (6.4-8.2); Sodium Level 131 mEq/L (136-145); Troponin High Sensitivity 18.3 pg/mL (<58.9)
[2023-03-24 17:43] LABS: AST/SGOT < 4 U/L (15-37)
[2023-03-24] MEDS ORDERED: NA CHLORIDE 0.9% 500 ML ONE (18:28)
--- NOTE | 2023-03-24 20:03 | RAD REPORT ---
EXAM DESCRIPTION: CT - Angio Aorta For Dissection - 03/24/2023 6:54 pm CLINICAL HISTORY: chest pain, prior aneursym COMPARISON: Chest Single View dated 03/24/2023 TECHNIQUE: Dynamically thin axial CT images of the chest, abdomen, and pelvis were obtained during a dministration of approximately 140mL Isovue 370 IV contrast. Sagittal and coronal reconstructions as well as maximal intensity projection reconstruction were generated and reviewed per an aortic angiogr aphy protocol. All CT scans are performed using dose optimization technique as appropriate and may include automated exposure control or mA/KV adjustment according to patient size. 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 Nonspecific mild sof t tissue thickening and adjacent to the aortic root extending to the sternotomy defect, may relate to recent postsurgical changes. Aorta is normal in diameter with no dissection or other acute aortic fi ndings. Reconstruction images show no significant findings. Pulmonary arteries are normal as well. No mass or infiltrate in the lung parenchyma. Small to moderate layering left pleural effusion. Mild pericardial effusion and adjacent fat stranding. No pleural thickening, or pneumothorax. No abnormal mediastinal or hilar mass or lymphadenopathy seen. No chest wall mass or abnormal axillar y lymphadenopathy. Celiac, SMA and renal arteries show no suspicious findings. Solid abdominal viscera and bowel show no significant findings. No mass or abnormal lymphadenopathy. Bilateral inguinal hernias containing fat , larger the left. Moderate prostatomegaly. Bladder is suboptimally distended limiting evaluation sma ll bilateral renal cysts, benign in appearance IMPRESSION: Mild pericardial effusion and adjacent fat stranding, suggesting pericarditis. 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 Nonspecific mild soft tissue th ickening around the aortic root may relate to recent postsurgical changes or inflammation. Small to moderate layering left pleural effusion with underlying atelectasis. Other incidental findings as above.
--- NOTE | 2023-03-24 20:33 | ER ---
Nurse's Notes [facility] Name: Kyree Freeman Age: 57 yrs Sex: Male : 1965 Arrival Date: 03/24/2023 Time: 16:02 Bed 3 Private MD: Diagnosis: Acute pericarditis, unspecified;recurrent aortic valve infection/inflammation Presentation: 03/24 16:11 Chief complaint: Patient states: "I started having chest pain Tuesday night, worse rs5 today". Pt reports recently on IV antibiotics for heart valve infection. Pt also reports road trip of 6 hours recently. Coronavirus screen: At this time, the client does not indicate any symptoms associated with coronavirus-19. Ebola Screen: No symptoms or risks identified at this time. Initial Sepsis Screen: Does the patient meet any 2 criteria? HR > 90 bpm. Yes Does the patient have a suspected source of infection? No. Patient's initial sepsis screen is negative. Risk Assessment: Do you want to hurt yourself or someone else? Patient reports no desire to harm self or others. Onset of symptoms was March 20, 2023. 16:11 Method Of Arrival: Ambulatory rs5 16:11 Acuity: AJ 2 rs5 Historical: - Allergies: 16:13 No Known Allergies; rs5 - PMHx: 16:13 Cerebrovascular accident; Leaky aorta; rs5 16:13 Aortic Valve infection; Aortic aneurysm repair; aa5 - PSHx: 16:13 Knee-Right; open heart surgery; rs5 16:13 Right knee replacement; Aortic valve replacement; aa5 - Immunization history:: Adult Immunizations not up to date. - Social history:: Smoking status: Patient denies any tobacco usage or history of. Screenin:14 [facility] ED Fall Risk Assessment (Adult) History of falling in the last 3 months, me1 including since admission No falls in past 3 months (0 pts) Confusion or Disorientation No (0 pts) Intoxicated or Sedated No (0 pts) Impaired Gait No (0 pts) Mobility Assist Device Used No (0 pt) Altered Elimination No (0 pt) Score/Fall Risk Level 0 - 2 = Low Risk. Abuse screen: Denies threats or abuse. Nutritional screening: No deficits noted. Tuberculosis screening: No symptoms or risk factors identified. Assessment: 17:14 General: Appears uncomfortable, well groomed, well developed, well nourished, Behavior me1 is calm, cooperative, appropriate for age, Reports chest pain that started last night and is worse today to left upper chest/shoulder area. States it feels like a dull/constant pain and that he does feel sob at times. Patient was recently on IV antibiotics for heart valve infection. States he recently returned from a [address] trip. Pain: Complains of pain in anterior aspect of left upper chest Pain does not radiate. Pain currently is 4 out of 10 on a pain scale. Quality of pain is described as dull, Pain began gradually, 1 day ago. Is continuous. Neuro: Level of Consciousness is awake, alert, obeys commands, Oriented to person, place, time, situation, Appropriate for age. Cardiovascular: Capillary refill < 3 seconds Patient's skin is warm and dry. Cardiovascular: Chest pain is described as Pain is 4 out of 10 on a pain scale. quality is dull is located in left anterior radiates to left scapula began 1 day ago episodes are continuous. Respiratory: Airway is patent Respiratory effort is even, unlabored, Respiratory pattern is regular, symmetrical. 19:00 Reassessment: Patient appears in no apparent distress at this time. Patient and/or jw7 family updated on plan of care and expected duration. Pain level reassessed. Patient is alert, oriented x 3, equal unlabored respirations, skin warm/dry/pink. Patient states feeling better. 20:00 Reassessment: Patient appears in no apparent distress at this time. No changes from [facility] previously documented assessment. Patient and/or family updated on plan of care and expected duration. Pain level reassessed. Patient is alert, oriented x 3, equal unlabored respirations, skin warm/dry/pink. 22:26 General: Patient c/o itching. Informed NIKOLAS Heath. Rec'd order for benadryl and me1 was instructed to slow the vancomycin infusion down. Vancomycin rate lowered to 75 ml/hr.. 22:27 General:. me1 22:28 General: Reports continues to c/o itching. Rec'd order for solumedrol. me1 Vital Signs: 16:11 BP 124 / 90; Pulse 120; Resp 20; Temp 97.8(TE); Pulse Ox 100% on R/A; Weight 82.55 kg; rs5 Height 5 ft. 4 in. ; 19:00 BP 117 / 77; Pulse 101; Resp 20 S; Pulse Ox 100% on R/A; jw7 20:00 BP 120 / 88; Pulse 101; Resp 20 S; Pulse Ox 99% on R/A; jw7 21:00 BP 132 / 93; Pulse 108; Resp 16; Pulse Ox 99% on R/A; me1 21:30 BP 121 / 87; Pulse 116; Resp 17; Pulse Ox 100% on R/A; me1 16:11 Body Mass Index 31.24 (82.55 kg, 162.56 cm) rs5 ED Course: 16:10 Patient arrived in ED. rs5 16:11 Davina Flor PA-C is PHCP. sb4 16:11 Sean Hilliard MD is Attending Physician. sb4 16:13 Triage completed. rs5 16:15 EKG done, by ED staff, reviewed by Davina Flor PA-C. aa5 16:15 Patient has correct armband on for positive identification. Placed in gown. Bed in low aa5 position. Call light in reach. Side rails up X2. Client placed on continuous cardiac and pulse oximetry monitoring. NIBP monitoring applied. 16:15 Arm band placed on Patient placed in waiting room. me1 16:41 Chest Single View In Process Unspecified. EDMS 16:57 Nery Gannon, RN is Primary Nurse. me1 17:09 Inserted saline lock: 20 gauge in right antecubital area, using aseptic technique. me1 17:10 Basic Metabolic Panel Sent. me1 17:10 CBC with Diff Sent. me1 17:10 LFT's Sent. me1 17:10 Magnesium Sent. me1 17:10 NT PRO-BNP Sent. me1 17:10 PT-INR Sent. me1 17:10 Troponin HS Sent. me1 17:14 No provider procedures requiring assistance completed. Patient maintains SpO2 me1 saturation greater than 95% on room air. 17:14 Provided Education on: POC. Verbalized understanding . me1 18:55 Angio Aorta For Dissection In Process Unspecified. EDMS 20:06 Attending Physician role handed off by Sean Hilliard MD sp3 20:06 Bossman Rocha MD is Attending Physician. sp3 20:32 [facility] center contacted. Spoke to Yeny and initiated transfer. mb4 21:39 Rose connected with [facility] transfer center for consultation. mb4 21:46 Physician acceptance given by Ariana Strauss. mb4 21:53 Administrative approval given by Yeny Parker. mb4 22:12 [facility] contacted for transport. 15-20 minute ETA provided by working supervisor. mb4 22:16 Lactate w/ 2H reflex if indic. Sent. me1 22:16 CRP Sent. me1 22:43 Patient transferred, IV remains in place. me1 Administered Medications: 18:15 Drug: NS 0.9% IV 500 ml IV at bolus once Route: IV; Rate: bolus; Site: right me1 antecubital; 22:23 Follow up: IV Status: Completed infusion; IV Intake: 500ml me1 21:04 Drug: vancoMYCIN IVPB 1 grams IVPB once over 2 hrs Route: IVPB; Infused Over: 2 hrs; me1 Site: right antecubital; 21:04 Drug: Ketorolac IVP 15 mg IVP once Route: IVP; Site: right antecubital; me1 22:23 Follow up: Response: No adverse reaction me1 21:32 Drug: diphenhydrAMINE IVP 25 mg IVP once Route: IVP; Site: right antecubital; bp 22:23 Follow up: Response: No adverse reaction me1 22:16 Drug: MethylPrednisoLONE IVP 125 mg IVP once Route: IVP; Site: right antecubital; me1 22:23 Follow up: Response: No adverse reaction me1 Medication: 17:14 VIS not applicable for this client. me1 Intake: 22:23 IV: 500ml; Total: 500ml. me1 Outcome: 20:32 ER care complete, transfer ordered by . sb4 22:43 Transferred by ground EMS to [facility], Transfer form completed. me1 22:43 Condition: stable 22:43 Instructed on the need for transfer, 22:44 Patient left the ED. me1 Signatures: Dispatcher [employer] EDMS Jesenia Murguia, RN RN aa5 Kp Kwon RN RN bp Rachelle Amaya mb4 Bossman Rocha MD MD sp3 Leslye Treviño RN RN jw7 Davina Flor, PA-C PA-C sb4 Ricki Merritt RN RN rs5 Nery Gannon RN RN me1 Corrections: (The following items were deleted from the chart) 16:33 16:11 Chief complaint: Patient states: "I started having chest pain Efraín night, Hx of aa5 heart surgery and heart valve infection" rs5 16:42 16:11 Chief complaint: Patient states: "I started having chest pain Efraín night, Hx of aa5 heart surgery and heart valve infection" 5 16:43 16:13 PMHx: Aneurysm; 5 aa5 16:43 16:13 PMHx: Right knee replacement; 5 aa5 16:43 16:13 PSHx: Aortic Valve Infection; 5 aa5 22:28 22:26 General: Patient c/o itching. Informed NIKOLAS Heath. Rec'd order for me1 stephanie. . me1
--- NOTE | 2023-03-24 20:33 | EDPHYS ---
Physician Documentation [facility] Name: Kyree Freeman Age: 57 yrs Sex: Male : 1965 Arrival Date: 03/24/2023 Time: 16:02 Bed 3 Private MD: ED Physician Bossman Rocha HPI: 03/24 16:27 This 57 yrs old Male presents to ER via Ambulatory with complaints of Chest Pain. sb4 16:27 The patient or guardian reports chest pain that is located primarily in the anterior sb4 chest wall, left. Onset: 4 day(s) ago. The pain does not radiate. Associated signs and symptoms: Pertinent positives: recent travel, shortness of breath. The chest pain is described as aching, dull. Modifying factors: The symptoms are alleviated by nothing. the symptoms are aggravated by nothing. The patient has been recently seen by a physician:. 16:29 patient had aortic valve replaced a few months ago as well as 3 abdominal aortic sb4 aneurysms repaired. he is on Eliquis. states he started experiencing chest pain 4 days ago after traveling to [place] via car but feels the pain is from the seat belt. he is concerned because he started experiencing shortness of breath today. Historical: - Allergies: 16:13 No Known Allergies; rs5 - PMHx: 16:13 Cerebrovascular accident; Leaky aorta; rs5 16:13 Aortic Valve infection; Aortic aneurysm repair; aa5 - PSHx: 16:13 Knee-Right; open heart surgery; rs5 16:13 Right knee replacement; Aortic valve replacement; aa5 - Immunization history:: Adult Immunizations not up to date. - Social history:: Smoking status: Patient denies any tobacco usage or history of. ROS: 16:27 Constitutional: Negative for fever, chills, and weight loss, sb4 16:27 Cardiovascular: Positive for chest pain, 16:27 Respiratory: Positive for cough, shortness of breath, 16:27 All other systems are negative, Exam: 16:27 Constitutional: This is a well developed, well nourished patient who is awake, alert, sb4 and in no acute distress. Head/Face: Normocephalic, atraumatic. Eyes: Extra-ocular motions intact. Periorbital areas with no swelling, redness, or edema. ENT: Mucous membranes moist. Cardiovascular: Regular rate and rhythm with a normal S1 and S2. Respiratory: Lungs have equal breath sounds bilaterally, clear to auscultation and percussion. No rales, rhonchi or wheezes noted. No increased work of breathing, no retractions or nasal flaring. Abdomen/GI: Soft, non-tender, no distension. Skin: Warm, dry with normal turgor. Normal color with no rashes, no lesions, and no evidence of cellulitis. MS/ Extremity: Pulses equal, no cyanosis. Neurovascular intact. Full, normal range of motion. Neuro: Awake and alert, GCS 15, oriented to person, place, time, and situation. Motor strength 5/5 in all extremities. Sensory grossly intact. Vital Signs: 16:11 BP 124 / 90; Pulse 120; Resp 20; Temp 97.8(TE); Pulse Ox 100% on R/A; Weight 82.55 kg; rs5 Height 5 ft. 4 in. ; 19:00 BP 117 / 77; Pulse 101; Resp 20 S; Pulse Ox 100% on R/A; jw7 20:00 BP 120 / 88; Pulse 101; Resp 20 S; Pulse Ox 99% on R/A; jw7 21:00 BP 132 / 93; Pulse 108; Resp 16; Pulse Ox 99% on R/A; me1 21:30 BP 121 / 87; Pulse 116; Resp 17; Pulse Ox 100% on R/A; me1 16:11 Body Mass Index 31.24 (82.55 kg, 162.56 cm) rs5 MDM: 16:11 Patient medically screened. sb4 16:27 Differential diagnosis: abnormal EKG, acute myocardial infarction, anxiety, coronary sb4 artery disease chest wall pain, costochondritis, pleurisy, pneumonia, pulmonary embolus, stable angina, thoracic aortic disection, unstable angina. 22:43 The patient was not given aspirin in the Emergency Department. Not indicated due to sb4 patient's past medical history. Data reviewed: vital signs, nurses notes, lab test result(s), EKG, radiologic studies, I have discussed the patient's presentation/case with the attending Emergency Department Physician;. Consideration of Admission/Observation Patient was admitted/placed on observation. Management of patient was discussed with the following: Hospitalist: Dr. Mock [facility], accepts patient. Griddle Attendant: Cardiology team at [facility] accept patient without consult. Counseling: I had a detailed discussion with the patient and/or guardian regarding the historical points, exam findings, and any diagnostic results supporting the discharge/admit diagnosis, lab results, radiology results, the need to transfer to another facility, for higher level of care, [facility] does not immediately have the required specialist. 03/24 16:11 Order name: Basic Metabolic Panel; Complete Time: 17:48 sb4 03/24 16:11 Order name: CBC with Diff; Complete Time: 17:29 sb4 03/24 16:11 Order name: LFT's; Complete Time: 17:48 sb4 03/24 16:11 Order name: Magnesium; Complete Time: 17:48 sb4 03/24 16:11 Order name: NT PRO-BNP; Complete Time: 17:48 sb4 03/24 16:11 Order name: PT-INR; Complete Time: 17:25 sb4 03/24 16:11 Order name: Troponin HS; Complete Time: 17:48 sb4 03/24 19:04 Order name: Troponin High Sensitivity; Complete Time: 20:28 sb4 03/24 21:48 Order name: CRP sb4 03/24 21:48 Order name: Lactate w/ 2H reflex if indic. sb4 03/24 16:21 Order name: Chest Single View; Complete Time: 17:04 EDMS 03/24 18:00 Order name: Angio Aorta For Dissection; Complete Time: 20:04 EDMS 03/24 16:11 Order name: EKG; Complete Time: 16:31 sb4 03/24 16:11 Order name: Cardiac monitoring; Complete Time: 16:30 sb4 03/24 16:11 Order name: EKG - Nurse/Tech; Complete Time: 16:30 sb4 03/24 16:11 Order name: IV Saline Lock; Complete Time: 17:10 sb4 03/24 16:11 Order name: Labs collected and sent; Complete Time: 17:10 sb4 03/24 16:11 Order name: O2 Per Protocol; Complete Time: 16:30 sb4 03/24 16:11 Order name: O2 Sat Monitoring; Complete Time: 16:30 sb4 EC:31 Rate is 115 beats/min. Rhythm is regular, Sinus tachycardia. [place] interval is normal at sb4 122 msec. QRS interval is normal at 112 msec. QT interval is prolonged at 533 msec. Clinical impression: No evidence of ischemia. Interpreted by me. Reviewed by me. Administered Medications: 18:15 Drug: NS 0.9% IV 500 ml IV at bolus once Route: IV; Rate: bolus; Site: right me1 antecubital; 22:23 Follow up: IV Status: Completed infusion; IV Intake: 500ml me1 21:04 Drug: vancoMYCIN IVPB 1 grams IVPB once over 2 hrs Route: IVPB; Infused Over: 2 hrs; me1 Site: right antecubital; 21:04 Drug: Ketorolac IVP 15 mg IVP once Route: IVP; Site: right antecubital; me1 22:23 Follow up: Response: No adverse reaction me1 21:32 Drug: diphenhydrAMINE IVP 25 mg IVP once Route: IVP; Site: right antecubital; bp 22:23 Follow up: Response: No adverse reaction me1 22:16 Drug: MethylPrednisoLONE IVP 125 mg IVP once Route: IVP; Site: right antecubital; me1 22:23 Follow up: Response: No adverse reaction me1 Disposition Summary: 03/24/23 20:32 Transfer Ordered Notes: Transfer Location: [facility] sb4 Reason: Higher level of care sb4 Condition: Fair sb4 Problem: new sb4 Symptoms: are unchanged sb4 Accepting Physician: dr. spaulding(03/24/23 22:44) me1 Diagnosis - Acute pericarditis, unspecified sb4 - recurrent aortic valve infection/inflammation sb4 Forms: - Medication Reconciliation Form sb4 - SBAR form sb4 Signatures: Dispatcher [employer] EDJesenia Gr RN RN aa5 Kp Kwon RN RN Davina Shah PA-C PA-C sb4 Ricki Merritt RN RN rs5 Nery Gannon RN RN me1 Corrections: (The following items were deleted from the chart) 16:41 16:31 Chest Single View+RAD.[email or web address].[email or web address] ordered. EDVT EDMS 16:43 16:13 PMHx: Aneurysm; rs5 aa5 16:43 16:13 PMHx: Right knee replacement; rs5 aa5 16:43 16:13 PSHx: Aortic Valve Infection; aa5 aa5 22:44 20:32 dr. spaulding sb4 me1
[2023-03-24] MEDS ORDERED: VANCOMYCIN 1 GM/VIAL ONE (20:45)
[2023-03-24] MEDS ORDERED: KETOROLAC 30 MG/ML INJ ONE (20:46)
[2023-03-24] MEDS ORDERED: NA CHLORIDE 0.9% 0 ML ONE (20:48)
[2023-03-24] MEDS ORDERED: NA CHLORIDE 0.9% 250 ML ONE (20:50)
[2023-03-24] MEDS ORDERED: ONDANSETRON 4 MG/2 ML VIAL ONE (21:17)
[2023-03-24] MEDS ORDERED: DIPHENHYDRAMINE 50 MG/ML VIAL ONE ×3 (21:28→22:03)
[2023-03-24] MEDS ORDERED: METHYLPREDNISOLONE 125 MG INJ ONE (22:20)
[2023-03-24 22:52] VITALS: TEMP 97.8
[2023-03-24 22:59] VITALS: BP 121/87; O2SAT 100
--- NOTE | 2023-03-25 14:42 | EKG ---
Test Date: 2023-03-24 Test Time: 16:25:06 Body Engineer: DANIS MEASUREMENT RESULTS: Intervals: Rate: 115 NV: 122 QRSD: 112 QT: 386 QTc: 533 [place]: P: 69 NV: 122 QRS: 62 T: 89 INTERPRETIVE STATEMENTS: Sinus tachycardia Possible Left atrial enlargement Incomplete right bundle branch block Possible Right ventricular hypertrophy Prolonged QT Abnormal ECG Compared to ECG 11/03/2022 19:25:59 Incomplete right bundle-branch block now present Sinus rhythm no longer present Electronically Signed On 03-25-23 14:39:56 CDT by Murtaza Barnhart
== END 2023-03-24 22:44 | disposition short-term general hospital (02) ==
LOC: ER 16:02
DX: I35.8 Other nonrheumatic aortic valve disorders (principal); I31.9 Disease of pericardium, unspecified; R05.9 Cough, unspecified; Z95.2 Presence of prosthetic heart valve; Z86.73 Personal history of transient ischemic attack (TIA), and cerebral infarction without residual deficits
CPT/HCPCS: 96361; 93005; 85025; 80048; 36415; 83735; 85610; 80076; 83605; 84484 ×2; 83880; 86140; 71275; 74175; 71045; 96375; 96374; 99285; Q9967; J1200; J2930; J7050; J7040; J2405